=== PATIENT | female | born 1950 | race Caucasian/White ===

== ENCOUNTER 2023-09-04 09:57 | Observation (INO) | payer MEDICARE, SELFPAY ==
[2023-09-04] VITALS (57 sets, daily range): BP systolic 105–193; BP diastolic 47–124; PULSE 69–83; RESP 15–22; TEMP 36.1–36.7; O2SAT 89–97
--- NOTE | 2023-09-04 10:15 | DI.CT_ITS ---
Exam(s) CT LUMBAR SPINE SI JOINTS WO EXAM: CT LUMBAR SPINE SI JOINTS WO CLINICAL HISTORY: low back pain. TECHNIQUE: Imaging Protocol: Axial computed tomography images with coronal and sagittal reformatted images were created and reviewed COMPARISON: No exams were available for comparison FINDINGS: Bones: There is a Schmorl's node invagination in the superior endplate of L4 noted, age indeterminat e.. No lytic nor blastic vertebral lesions identified. INDIVIDUAL LEVELS: T12-L1:Mild disc space narrowing on the right side of this disc space. No obvious disc herniation. Central canal dimensions within normal limits.. No obvious foraminal stenosis. L1-2: Annular bulging. No dominant disc herniation. Anterior osseous lipping. Central canal dimen sions are lower normal. Facet joints unremarkable. No foraminal stenosis. L2-3: This level exhibits relatively uniform advanced disc space narrowing and vacuum phenomenon. P osteriorly there is no distinct disc herniation. Central canal dimensions are lower normal. Mild fa cet joint degenerative changes. Mild foraminal stenosis. L3-4: This level exhibits disc space narrowing which is more prominent on the left than on the right and there Modic type sub endplate marrow changes on the left side of the disc space. There is a Federica morl's node invagination into the right-side of the superior endplate of L4. Difficult to determine the age of this Schmorl's node invagination on CT scan. There is mild-moderate central spinal canal stenosis at this level. There is significant foraminal stenosis on the left side at this level due t o the vertical foraminal stenosis-height loss. Lesser amount of foraminal narrowing is evident on th e right side. Facet joints at this level exhibit only mild degenerative changes. L4-5: This level exhibits preserved disc height but with broad annular bulging with moderate-severe central spinal canal stenosis. There are significant degenerative changes in the facet joints, more so on the right side. Mild foraminal stenosis on the left side. No foraminal stenosis on the right side. L5-S1: This level exhibits normal disc height. No disc herniation or central canal stenosis. Moder ate degenerative changes in the facet joints are noted there is no central canal stenosis. There is mild foraminal stenosis on the left side at this level. No foraminal stenosis on the right side. The visualized sacroiliac joints and sacrum appear unremarkable. PARASPINAL SOFT TISSUES: Cholelithiasis incidentally noted. Love catheter noted in the urinary blad ben. Bladder is collapsed around the Love. IMPRESSION: 1. No evidence of acute fracture, listhesis, nor pars defects. However, there is a prominent Schmorl 's node invagination on the right side of superior endplate of L4, age indeterminate. If clinically indicated follow-up MRI can be performed to determine if this is an acute or subacute or chronic inva gination. 2. There is mild-moderate central spinal canal stenosis at L3-4 level. See above. 3. Asymmetric foraminal stenosis on the left side at L3-4, L4-5, and L5-S1 levels. Cholelithiasis incidentally noted. Bladder also collapsed around Love catheter. RADIATION DOSE DELIVERED: Total DLP DATA REPOSITORY: All CT scans at this facility are submitted to the National Radiology Data Registry (NRDR) Dose Index Registry (DIR) with the [employer] (A[employer]). RADIATION OPTIMIZATION: All CT scans at this facility use at least one of these dose optimization te chniques: automated exposure control; mA and/or kV adjustment per patient size (includes targeted exa ms where dose is matched to clinical indication); or iterative reconstruction.
[2023-09-04 10:53] LABS: Abs Immature Grans 0.04 10^3/uL (0.0-0.06); Absolute Basophil Count 0.02 10^3/uL (0.0-0.2); Absolute Eosinophil Count 0.22 10^3/uL (0.0-0.7); Absolute Monocyte Count 0.65 10^3/uL (0.1-0.8); Absolute Neutrophil Count 9.38 10^3/uL (1.2-6.7); Basophils % 0.2; Eosinophils % 1.9; HCT 40.6 % (36.0-46.0); HGB 13.1 g/dL (11.2-15.7); Immature Grans % 0.3; Lymphocytes % 12.7; MCH 25.3 pg (27.0-33.0); MCHC 32.3 % (32.0-36.0); MCV 79 fL (80-95); MPV 9.8 fL (8.0-11.0); Monocytes % 5.5; Neutrophils % 79.4; Platelet Count 297 10^3/uL (130-400); RBC 5.17 10^6/uL (3.93-5.22); RDW 14.4 % (11.7-14.6); RDW-SD 40.7 fL; WBC 11.81 10^3/uL (4.4-10.8)
[2023-09-04 11:12] LABS: ALT 13 U/L (14-59); AST 13 U/L (15-37); Albumin 2.9 g/dL (3.4-5.0); Alkaline Phosphatase 90 U/L (46-116); BUN 17 mg/dL (7-18); Bilirubin, Total 0.5 mg/dL (0.2-1.0); Chloride 97 mmol/L (98-107); Estimated GFR 59.49 (mL/min/1.73m2); Glucose 404 mg/dL (74-106); Magnesium 1.7 mg/dL (1.8-2.4); Potassium 4.7 mmol/L (3.5-5.1); Sodium 133 mmol/L (136-145); Total Protein 8.2 g/dL (6.4-8.2)
--- NOTE | 2023-09-04 11:39 | NUR.NOTE ---
Nursing Note: Pts skin assessed on ED intake. The following wounds/pressure injury/skin break down was noted on ED intake assessment: left armpit growth and sore, redness and excoriation of entire patt area and underside of pannus, draining slit on right side of vulva in groin, right heel blister. See wound documentation for descriptions of each area and treatments provided. There was no sacrum/buttox breakdown or evidence of pressure injury. There was no skin breakdown noted in right arm pit, skin growth noted and reported to provider. Candi LUMBER TRIMMER came to bedside to assess all areas of concern. Pt was cleaned with the warm body wipes and fresh linens were given.
--- NOTE | 2023-09-04 12:12 | DI.VRAD_ITS ---
PROCEDURE INFORMATION: Exam: CT Lumbar Spine Without Contrast Exam date and time: 09/04/2023 11:53 AM Age: 72 years old Clinical indication: Low back pain and other: Low back pain TECHNIQUE: Imaging protocol: Computed tomography of the lumbar spine without contrast. COMPARISON: No relevant prior studies available. FINDINGS: Bones/joints: Demineralization of the visualized bones. Mild curvature of the thoracolumbar spine convex to the left. Multilevel moderate degenerative disease of the lumbar spine, most pronounced at L3-L4 with posterior osteophyte disc complex causing moderate thecal sac compression and moderate to severe narrowing of both neural foramina, more pronounced on the left side. Schmorl's node at the upper endplate of L4. Urinary bladder: Love catheter in the bladder. Vasculature: There are vascular calcifications. Pelvic phleboliths. Soft tissues: Unremarkable. IMPRESSION: 1. No acute fracture or dislocation. 2. Multilevel degenerative disease of the lumbar spine, most pronounced at L3-L4 with moderate thecal sac compression and moderate to severe neural foraminal narrowing. Dictated and Authenticated by: Cory Pelaez MD. Ordering:LATISHA Capps MD
[2023-09-04 12:28] LABS: Bilirubin Negative (Negative); Blood Trace-intact (Negative); Clarity Sl Cloudy (Clear); Glucose 500 mg/dL (Negative); Ketones 40 mg/dL (Negative); Leukocyte Esterase Negative (Negative); Nitrite Positive (Negative); Urobilinogen 0.2 mg/dL (Up to 0.2); pH 5.5 (5-8)
[2023-09-04 12:35] LABS: Bacteria Many HPF (Negative); C & S Indicated? Yes; Casts 0-2 Hyaline LPF (Negative); Crystals Negative HPF (Negative); Epithelial Cells Few HPF (Negative); Mucus Trace (Negative); RBC 0-2 HPF (0-2); WBC >50 HPF (0-5)
--- NOTE | 2023-09-04 12:50 | ED.GENADUL_ITS ---
Discharge Plan Disposition Patient Disposition: Admit to [facility] Discharge Details Chief Complaint: Nk/Back Pain Clinical Impression: Acute back pain, Urinary tract infection, Hyperglycemia due to type 2 diabetes mellitus, Weakness Primary Care Provider: Sherry,Local ED Provider: Jefry Christopher Home Meds and New Rx's Prescriptions: No Action benzonatate 200 mg capsule 200 mg PO Q8H PRN Rx Instructions: 200 mg orally PRN; gabapentin 300 mg capsule 300 mg PO Q8H atorvastatin 40 mg tablet 40 mg PO DAILY trazodone 50 mg tablet 50 mg PO QHS PRN levothyroxine 150 mcg capsule 150 mcg PO DAILY insulin glargine 100 unit/mL solution 6 unit subcut DAILY HPI General Mode of arrival: EMS . Date/Time Provider Initiated Documentation: 09/04/23 10:03 . Limitations to Documentation: no limitations . Information obtained by: patient and RN notes reviewed . History of Present Illness 72 year old F presents to the emergency department with the chief complaint of Back pain, described as moderate and severe, Patient started experiencing this day(s) (1) and it has been constant. Movement worsens symptoms . Patient did receive the following treatments prior to arrival, none Related Data Home Medications Medication Instructions Recorded Confirmed atorvastatin 40 mg tablet 40 mg PO DAILY 09/04/23 09/04/23 benzonatate 200 mg capsule 200 mg PO Q8H PRN 09/04/23 09/04/23 gabapentin 300 mg capsule 300 mg PO Q8H 09/04/23 09/04/23 insulin glargine 100 unit/mL 6 unit subcut DAILY 09/04/23 09/04/23 subcutaneous solution levothyroxine 150 mcg capsule 150 mcg PO DAILY 09/04/23 09/04/23 trazodone 50 mg tablet 50 mg PO QHS PRN 09/04/23 09/04/23 Allergies Allergy/AdvReac Type Severity Reaction Status Date / Time No Known Allergies Allergy Unverified 09/04/23 10:17 General Stated Complaint: Nk/Back Pain TRINIDAD: 3 Review of Systems Constitutional Constitutional: Denies chills, Denies fever(s), Reports poor appetite and Reports weakness Cardiovascular Cardiovascular: Denies chest pain and Denies dyspnea on exertion Respiratory Respiratory: Denies cough and Denies dyspnea on exertion Gastrointestinal Gastrointestinal: Denies abdominal pain, Denies change in bowel habits, Denies diarrhea, Denies nausea and Denies vomiting Genitourinary Genitourinary: Reports urinary incontinence (Chronic) Musculoskeletal Musculoskeletal: Reports as per HPI and Reports back pain Integumentary/Breasts Skin/Breast: Reports erythema Neurologic Neurologic: Denies sensory deficit and Reports weakness Exam Const General: cooperative and no acute distress Orientation: alert, awake and oriented x3 Resp Effort & Inspection: normal respiratory effort and able to speak in complete sentences Auscultation: clear to auscultation bilaterally Cardio Rate: regular rate Rhythm: regular rhythm Heart Sounds: S1 normal and S2 normal GI Palpation: nontender External Female Exam: erythema, externally tender and external swelling Back/Spine/Pelvis Thoracic/Lumbar Spine: pain with thoraco-lumbar ROM and lumbar spinal tenderness Neuro General: patient alert, patient awake and patient oriented x3 Extrem General: capillary refill normal Right lower extremity: foot Details: other (Calcaneus blistering) Course Vital Signs Vital signs: Vital Signs Temperature 36.1 C L 09/04/23 09:57 Pulse 76 09/04/23 09:57 Respiratory Rate 18 09/04/23 09:57 Blood Pressure 193/94 H 09/04/23 09:57 Pulse Oximetry 91 L 09/04/23 09:57 Temperature 36.1 C L 09/04/23 09:57 Temperature Source Skin 09/04/23 09:57 Pulse 76 09/04/23 11:31 Pulse 77 09/04/23 11:10 Respiratory Rate 22 09/04/23 11:10 Respiratory Effort Normal, Non-Labored 09/04/23 10:09 Blood Pressure 150/80 H 09/04/23 11:31 Blood Pressure Mean 106 09/04/23 11:31 Blood Pressure Position Supine 09/04/23 09:57 Pulse Oximetry 94 09/04/23 11:40 Oxygen Delivery Method Room Air 09/04/23 11:40 Oxygen Flow Rate 0 09/04/23 11:40 Pain Level 10 09/04/23 10:09 Comment put on 1L o2 09/04/23 10:03 Lab/Test Results Lab/Test Results: 09/04/23 11:16 Urine - Reflex from Ua Urine Culture - Pending Laboratory Tests Range/Units 09/04/23 09/04/23 10:40 11:16 WBC (4.4-10.8) 10^3/uL 11.81 H RBC (3.93-5.22) 10^6/uL 5.17 Hgb (11.2-15.7) g/dL 13.1 Hct (36.0-46.0) % 40.6 MCV (80-95) fL 79 L MCH (27.0-33.0) pg 25.3 L MCHC (32.0-36.0) % 32.3 RDW (11.7-14.6) % 14.4 Plt Count (130-400) 10^3/uL 297 MPV (8.0-11.0) fL 9.8 Immature Gran % 0.3 Neutrophils % 79.4 Lymphocytes % 12.7 Monocytes % 5.5 Eosinophils % 1.9 Basophils % 0.2 Nucleated RBC % (0.0-0.3) % 0.0 Absolute Neutrophils (1.2-6.7) 10^3/uL 9.38 H Absolute Lymphocytes (1.2-3.4) 10^3/uL 1.50 Absolute Monocytes (0.1-0.8) 10^3/uL 0.65 Absolute Eosinophils (0.0-0.7) 10^3/uL 0.22 Absolute Basophils (0.0-0.2) 10^3/uL 0.02 Sodium (136-145) mmol/L 133 L Potassium (3.5-5.1) mmol/L 4.7 Chloride (98-107) mmol/L 97 L Carbon Dioxide (21.0-32.0) mmol/L 29.0 Anion Gap (3-11) mmol/L 7.0 BUN (7-18) mg/dL 17 Creatinine (0.55-1.02) mg/dL 1.0 Est GFR (CKD-EPI 2020) (mL/min/1.73m2) 59.49 Glucose (74-106) mg/dL 404 H Calcium (8.5-10.1) mg/dL 9.0 Magnesium (1.8-2.4) mg/dL 1.7 L Total Bilirubin (0.2-1.0) mg/dL 0.5 AST (15-37) U/L 13 L ALT (14-59) U/L 13 L Alkaline Phosphatase (46-116) U/L 90 Total Protein (6.4-8.2) g/dL 8.2 Albumin (3.4-5.0) g/dL 2.9 L Urine Color (Yellow) Yellow Urine Clarity (Clear) Sl Cloudy Urine pH (5-8) 5.5 Ur Specific [place] (1.005-1.025) 1.020 Urine Protein (Neg-Trace) mg/dL 30 H Urine Ketones (Negative) mg/dL 40 H Urine Blood (Negative) Trace-intact H Urine Nitrite (Negative) Positive H Urine Bilirubin (Negative) Negative Urine Urobilinogen (Up to 0.2) mg/dL 0.2 Ur Leukocyte Esterase (Negative) Negative Urine RBC (0-2) HPF 0-2 Urine WBC (0-5) HPF >50 H Ur Epithelial Cells (Negative) HPF Few Urine Crystals (Negative) HPF Negative Urine Bacteria (Negative) HPF Many Urine Casts (Negative) LPF 0-2 Hyaline Urine Mucus (Negative) Trace Ur Culture Indicated? Yes Urine Glucose (Negative) mg/dL 500 H Medical Decision Making Patient presenting to the emergency department via EMS for chief complaint of back pain. Patient reports significant back pain that started yesterday. Patient denies any injury or trauma does state that she recently moved here from [place] after being in a skilled nursing and her daughter wanting her here due to not having any family to visit her there. Is living with her daughter's [id number] who is trying to take care of her but there are some situational challenges. Patient states generalized weakness and poor appetite along with urinary incontinence. Patient states past medical history of CHF, diabetes, and previous stroke with some left-sided deficits. Patient normally uses a walker to move around but has been unable to ambulate or even get out of bed for the past 24 to 48 hours. She does state that she did receive some of her medications this morning does not believe she received her insulin. Physical exam shows extreme amount of pain and difficulty even sitting up in bed. Lower lumbar tenderness to palpation, reflexes present as much can be appreciated with patient lying in bed, sensation movement and pulse intact distally, patient is obese. Patient ANO x 3 with no respiratory or cardiac complaints or findings of significant concern. Will plan on checking patient's labs and CT imaging of the lumbar spine due to inability to perform appropriate plain film imaging secondary to pain. Pending results will give IV acetaminophen. Unfortunate there are no records to review given patient being new to the area and having no establish care. Reviewed patient's labs and patient does have mild white count of 11.81 with elevated neutrophils, CMP shows slightly low sodium at 133, chloride of 97, glucose of 400, magnesium 107, otherwise nondiagnostic labs. Will replete magnesium orally. Urinalysis is concerning for protein ketones trace blood but also is nitrite positive with greater than 50 WBCs. I am concerned for urinary tract infection and will give patient Rocephin along with her normal scheduled long acting insulin. CT imaging reviewed and shows no acute findings but disc degeneration. Reassessed patient patient still having significant back pain and spasms, also was able to look at perineum and patient has significant and severe skin breakdown with even open wounds secondary to her urinary incontinence. Love catheter was placed to help with the incontinence and healing along with barrier cream ordered. Also did note that patient had blistering on her right heel. While she states this may be from shoes I am concerned due to her lack of mobility about possible pressure ulcers so pressure relieving boot was ordered. Daughter was able to come to the emergency department and states that patient is staying with her [id number] who also then did call the emergency department and states that she cannot care for the patient. Daughter states that she is also not qualified to care for the patient. I am concerned for patient being home alone given the obvious inability to care for self and no realistic support system in place at all Long with no primary care or follow-up established. Will contact hospitalist for admission for urinary tract infection, weakness, acute back pain, and urinary incontinence. Imaging Data Radiologic Study: Imaging: CT Scan Radiologist's impression: Exam(s) PROCEDURE INFORMATION: Exam: CT Lumbar Spine Without Contrast Exam date and time: 09/04/2023 11:53 AM Age: 72 years old Clinical indication: Low back pain and other: Low back pain TECHNIQUE: Imaging protocol: Computed tomography of the lumbar spine without contrast. COMPARISON: No relevant prior studies available. FINDINGS: Bones/joints: Demineralization of the visualized bones. Mild curvature of the thoracolumbar spine convex to the left. Multilevel moderate degenerative disease of the lumbar spine, most pronounced at L3-L4 with posterior osteophyte disc complex causing moderate thecal sac compression and moderate to severe narrowing of both neural foramina, more pronounced on the left side. Schmorl's node at the upper endplate of L4. Urinary bladder: Love catheter in the bladder. Vasculature: There are vascular calcifications. Pelvic phleboliths. Soft tissues: Unremarkable. IMPRESSION: 1. No acute fracture or dislocation. 2. Multilevel degenerative disease of the lumbar spine, most pronounced at L3-L4 with moderate thecal sac compression and moderate to severe neural foraminal narrowing. Dictated and Authenticated by: Cory Pelaez MD. Lab Data Lab results reviewed: Yes I reviewed the patient's lab results. Quality:SDOH Health Related Social Needs: No Data to Display PFSH All Active Problems (Updated 09/04/23 @ 15:23 by Jefry Christopher NP) Weakness (Acute) Hyperglycemia due to type 2 diabetes mellitus (Acute) Urinary tract infection (Acute) Acute back pain (Acute) Medical History Stroke Diabetes CHF (congestive heart failure) Social History Smoking/Tobacco Use Status: Never Smoking risk assessment performed?: Yes Alcohol Intake: never Drug use: Never Substance use type: does not use
[2023-09-04] MEDS: cefTRIAXone 1 GM/50 ML BAG IVPB (13:04)
[2023-09-04] MEDS: Insulin Glargine 100 UNITS/ML UNIT 6 UNITS SC (13:04)
[2023-09-04] MEDS: Magnesium Oxide 400 MG TAB PO (13:05)
[2023-09-04] MEDS: diazePAM 10 MG/2 ML SYR 2.5 MG IVP (13:21)
--- NOTE | 2023-09-04 15:22 | W.PM.HP.N ---
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 She now presents w/ relatively recent acute low back pain w/ radiating pains into her legs R>L, inability to ambulate on her own, difficulty sitting up unassisted, but no perineal pain or numbness. She does have chronic urinary incontnence issues and frequently can not tell when she has to void, likely d/t [facility] DM (?neurogenic bladder). She has UTI and has perineal and groin excoriations. She needs iv antibiotics, analgesics (iv and oral including ketorolac, Tyelenol and muscle relaxants and iv narcotics) along w/ MRI of her LS spine to rule out herniated disc. She needs P.T. and O.T. to evaluate and treat her for her decreased ability to ambulate, general weakness (and more specifically her leg weakness). CM will assist patient and family in placement to SNF for rehab although she may need terminal clerk placement if she does not recover sufficiently. Will continue Rocephin for UTI. Monitor kidney function, electrolytes, etc. Qualifiers: Back pain laterality: bilateral Back pain location: low back pain Sciatica laterality: sciatica of right side Sciatica presence: with sciatica Qualified Code(s): M54.41 - Lumbago with sciatica, right side (2) Lumbar back pain with radiculopathy affecting right lower extremity: Status: Acute (3) Ambulatory dysfunction: Status: Acute (4) Hyperglycemia due to type 2 diabetes mellitus: Status: Acute Qualifiers: Diabetes mellitus [facility] insulin use: with [facility] use Qualified Code(s): E11.65 - Type 2 diabetes mellitus with hyperglycemia; Z79.4 - correction (current) use of insulin (5) Urinary tract infection: Status: Acute Assessment and plan: continue Rocephin Qualifiers: Hematuria presence: without hematuria Urinary tract infection type: acute cystitis Qualified Code(s): N30.00 - Acute cystitis without hematuria (6) Weakness: Status: Acute Assessment and plan: P.T. and O.T. consults as noted above. check MRI oF LS spine. (7) Hypomagnesemia: Status: Acute Assessment and plan: replete and monitor (8) DVT prophylaxis: Status: Acute Assessment and plan: enoxaparin SC (9) Discharge planning issues: Status: Acute Assessment and plan: Patient and her family had been applying for admission to [facility], she may or may not qualify for SNF. CM will look into her coverage for SNF. Hopefully w/ correction of her UTI and some P.T. and O.T. she may be able to return home to her family. Patient states that she was walking w/ use of either a walker w/ a seat or pushing a wheel chair and holding onto the wheel chair in the senior living in [facility] prior to coming to [place]. After discussion w/ the patient she has indicated that she wishes to have a DNR/DNI order. History of Present Illness History of Present Illness Chief Complaint: acute low back pain, inability to ambulate Narrative: 72 yr old female who moved up here from [place], [place]. She was in a senior living there and her daughter moved her out to be closer to family in [place]. She was suppose to live w/ her daughter's in-laws in [facility] until patient could get placed. Family had applied w/ [facility] in [place]. The patient had moved up here 4 days ago after traveling in a car for 10 days visiting family/friends in [place] and [place]. The patient states that her back pain began 4 days ago and has radiating pain in both legs but worse in the right leg. She has chronic numbness in her feet d/t her DM, she also has chronic urinary incontinence. Evaluation by the ED provider revealed evidence of urinary tract infection (UA cloudy +nitrites, >50 WBC, many bacteria, a few epithelial cells, negative for leukocyte esterase, 0-2 RBC, 40 mg/dL ketones. CMP remarkble for glucose 404, Mg 1.7, normal anion gap 7, normal BUN and creatinine and normal LFT. CBC remarkable for WBC 11,800, microcytic indices. CT of LS spine remarkable for multilevel DJD w/ most pronounced at L3-L4 w/ moderate thecal sac compression and moderate to severe neural foraminal narrowing. The hospitalist service was asked to admit the patient d/t her inabilty to ambulate on her own, unable to sit up in bed on her own d/t her weakness and back pain and for treatment of her UTI. She was also found to have excoriation of the skin around her groin and perineum d/t urinary incontinence. Review of Systems Constitutional Constitutional: Denies chills, Reports fatigue, Denies fever(s), Reports lethargy and Reports weakness Eyes Eyes: Reports system reviewed and no additional complaints, except as documented ENT Ears, Nose, Mouth, and Throat: Reports system reviewed and no additional complaints, except as documented and Reports disequilibrium Cardiovascular Cardiovascular: Reports system reviewed and no additional complaints, except as documented Respiratory Respiratory: Reports system reviewed and no additional complaints, except as documented Gastrointestinal Gastrointestinal: Reports system reviewed and no additional complaints, except as documented Genitourinary Genitourinary: Denies hematuria and Reports urinary incontinence Musculoskeletal Musculoskeletal: Reports as per HPI, Reports back pain, Reports numbness and Reports radiating pain into limb Integumentary/Breasts Skin/Breast: Reports erythema (over perineum and buttocks and groin and under pannus) Neurologic Neurologic: Reports as per HPI, Reports numbness, Reports paresthesias (both feet), Reports disequilibrium and Reports weakness Comments: Patient states that she had a stroke couple years ago w/ left sided weakness but has since regained use of the left side, she usually walks w/ walker or holds onto a wheelchair and walks behind it. Endocrine Endocrine: Reports fatigue PFSH All Active Problems (Updated 09/04/23 @ 20:14 by Anish Taylor MD) Discharge planning issues (Acute) DVT prophylaxis (Acute) Lumbar back pain with radiculopathy affecting right lower extremity (Acute) Hypomagnesemia (Acute) Ambulatory dysfunction (Acute) Weakness (Acute) Hyperglycemia due to type 2 diabetes mellitus (Acute) Urinary tract infection (Acute) Acute back pain (Acute) Medical History (Updated 09/04/23 @ 20:14 by Anish Taylor MD) Stroke Diabetes CHF (congestive heart failure) Surgical History (Updated 09/04/23 @ 15:37 by Anish Taylor MD) History of ERCP S/P tonsillectomy Social History (Updated 09/04/23 @ 15:38 by Anish Taylor MD) Smoking/Tobacco Use Status: Never Smoking risk assessment performed?: Yes Alcohol Intake: never Drug use: Never Substance use type: does not use Housing: apartment What is your relationship status?: Panel score (0-1 are the most socially isolated patients): 0 Meds Allergies and Home Medications Allergies Allergy/AdvReac Type Severity Reaction Status Date / Time No Known Allergies Allergy Unverified 09/04/23 10:17 Home Medications Medication Instructions Recorded Confirmed Type atorvastatin 40 mg tablet 40 mg PO DAILY 09/04/23 09/04/23 History benzonatate 200 mg capsule 200 mg PO Q8H PRN 09/04/23 09/04/23 History gabapentin 300 mg capsule 300 mg PO Q8H 09/04/23 09/04/23 History insulin glargine 100 unit/mL 6 unit subcut DAILY 09/04/23 09/04/23 History subcutaneous solution levothyroxine 150 mcg capsule 150 mcg PO DAILY 09/04/23 09/04/23 History trazodone 50 mg tablet 50 mg PO QHS PRN 09/04/23 09/04/23 History Exam Narrative Exam Narrative: Alert and oriented x4 HEENT: Atraumatic normocephalic, pupils equally round reactive to light and accommodation, extraocular motion intact, TMs intact, nares moist and patent without exudate or bleeding, oropharynx noninjected without exudate, Neck: Supple, nontender, without thyromegaly or lymphadenopathy or JVD. Normal carotid pulses Lungs: Clear to auscultation and percussion Heart: Regular rate and rhythm without murmur rub or gallop. Normal apical impulse Abdomen: Obese, Nondistended, normal bowel sounds, nontender to palpation or percussion, no organomegaly, no bruits, no palpable masses Genitalia: perineum and groin area of proximal thigh and perianal area is excoriated and red but no open sores seen Extremities: obese legs; right heel w/ blister over the medial heel, pedal pulses present but weak, no cyanosis, +SLR w/ right leg elicited severe lower back pain, she has trace pitting edema in both legs Neurologic: Cranial nerves II through XII grossly within normal limits. Sensation intact over face, chest arms/hands and legs however over both feet they are diminished but she was able to provide discrimination to light touch between various areas of palpation of her feet and legs. she has good pedal pushes and pulls i.e. plantar and dorsiflexion of her feet; unable to assess her stenght in her right leg to hip flexion or extension as she has severe pain w/ right leg SLR, but not in left leg. she has absent right DTR patella or ankle jerk, but brisk over left. Results Labs 09/04/23 10:40 09/04/23 10:40 Labs: Laboratory Results - last 24 hr 09/04/23 09/04/23 10:40 11:16 WBC 11.81 H RBC 5.17 Hgb 13.1 Hct 40.6 MCV 79 L MCH 25.3 L MCHC 32.3 RDW 14.4 Plt Count 297 MPV 9.8 Immature Gran % 0.3 Neutrophils % 79.4 Lymphocytes % 12.7 Monocytes % 5.5 Eosinophils % 1.9 Basophils % 0.2 Nucleated RBC % 0.0 Absolute Neutrophils 9.38 H Absolute Lymphocytes 1.50 Absolute Monocytes 0.65 Absolute Eosinophils 0.22 Absolute Basophils 0.02 Sodium 133 L Potassium 4.7 Chloride 97 L Carbon Dioxide 29.0 Anion Gap 7.0 BUN 17 Creatinine 1.0 Est GFR (CKD-EPI 2020) 59.49 Glucose 404 H Calcium 9.0 Magnesium 1.7 L Total Bilirubin 0.5 AST 13 L ALT 13 L Alkaline Phosphatase 90 Total Protein 8.2 Albumin 2.9 L Urine Color Yellow Urine Clarity Sl Cloudy Urine pH 5.5 Ur Specific Mchenry 1.020 Urine Protein 30 H Urine Ketones 40 H Urine Blood Trace-intact H Urine Nitrite Positive H Urine Bilirubin Negative Urine Urobilinogen 0.2 Ur Leukocyte Esterase Negative Urine RBC 0-2 Urine WBC >50 H Ur Epithelial Cells Few Urine Crystals Negative Urine Bacteria Many Urine Casts 0-2 Hyaline Urine Mucus Trace Ur Culture Indicated? Yes Urine Glucose 500 H Last Vital Signs Temp 36.1 C L 09/04/23 09:57 Pulse 75 09/04/23 14:01 Resp 22 09/04/23 11:10 BP 119/55 L 09/04/23 14:01 Pulse Ox 96 09/04/23 14:34 Time Spent Time spent with Patient: 55-74 minutes Time was spent: preparing to see the patient(eg.review tests), obtaining and/or reviewing separately otained hiistory, ordering medications,tests, procedures, referring, communicating with other health housekeeper caregiver, indepentently interpreting results, counseling the patient and care coordination
[2023-09-04] MEDS: predniSONE 20 MG TAB 60 MG PO (16:43)
[2023-09-04] MEDS: Pantoprazole 40 MG TABCR PO (16:43)
[2023-09-04] MEDS: Normal Saline Flush 10 ML SYR IVP ×2 (16:43→21:04)
[2023-09-04] MEDS: Acetaminophen 500 MG TAB 1000 MG PO ×2 (16:43→20:36)
[2023-09-04] MEDS: Ketorolac 15 MG/ML VIAL IVP (16:45)
[2023-09-04] MEDS: Methocarbamol 750 MG TAB 1500 MG PO ×2 (17:03→23:17)
[2023-09-04] MEDS: Insulin Aspart 300 UNITS/3 ML PEN SC ×2 (17:04→20:40)
[2023-09-04] MEDS: Enoxaparin 40 MG/0.4 ML SYR SC (18:23)
[2023-09-04] MEDS: Gabapentin 300 MG CAP PO (20:36)
[2023-09-04] MEDS: Magnesium Chloride 64 MG TABCR PO (20:37)
[2023-09-04] MEDS: Ketoconazole 2% CREAM 15 GM TUBE TP (21:03)
--- NOTE | 2023-09-04 23:26 | NUR.NOTE ---
Patient repositioned; awake and alert. Placed on 1l oxygen.
[2023-09-05] MEDS: Levothyroxine 150 MCG TAB PO (06:20)
[2023-09-05 06:22] LABS: Abs Immature Grans 0.05 10^3/uL (0.0-0.06); Absolute Basophil Count 0.01 10^3/uL (0.0-0.2); Absolute Eosinophil Count 0.01 10^3/uL (0.0-0.7); Absolute Lymphocyte Count 1.18 10^3/uL (1.2-3.4); Basophils % 0.1; Eosinophils % 0.1; HCT 37.5 % (36.0-46.0); HGB 12.2 g/dL (11.2-15.7); Immature Grans % 0.5; Lymphocytes % 10.7; MCH 25.4 pg (27.0-33.0); MCHC 32.5 % (32.0-36.0); MCV 78 fL (80-95); MPV 9.9 fL (8.0-11.0); Monocytes % 3.3; Neutrophils % 85.3; Platelet Count 333 10^3/uL (130-400); RDW 14.4 % (11.7-14.6); RDW-SD 40.9 fL; WBC 11.07 10^3/uL (4.4-10.8)
[2023-09-05 06:30] LABS: Absolute Monocyte Count 0.37 10^3/uL (0.1-0.8); Absolute Neutrophil Count 9.44 10^3/uL (1.2-6.7)
[2023-09-05 06:50] LABS: Anion Gap 8.7 mmol/L (3-11); BUN 24 mg/dL (7-18); CO2 27.3 mmol/L (21.0-32.0); CREATININE 1.3 mg/dL (0.55-1.02); Chloride 95 mmol/L (98-107); Estimated GFR 43.42 (mL/min/1.73m2); Glucose 395 mg/dL (74-106); Magnesium 1.8 mg/dL (1.8-2.4); Potassium 4.7 mmol/L (3.5-5.1); Sodium 131 mmol/L (136-145); TSH (W/Ref FT4) 2.34 uIU/mL (0.36-3.74)
[2023-09-05 07:08] LABS: Hemoglobin A1C 11.4 % (<5.7)
[2023-09-05 07:51] VITALS: BP 125/77; PULSE 72; RESP 18; TEMP 36.5; O2SAT 93
--- NOTE | 2023-09-05 08:00 | DI.MRI_ITS ---
Exam(s) MR LUMBAR SPINE WO EXAM: MR LUMBAR SPINE WO CLINICAL HISTORY: acute back pain w/ radicular symptoms. TECHNIQUE: Multiplanar multisequence MRI of the Lumbar spine was performed. COMPARISON: Recent CT scan of 09/04/2023 was reviewed. FINDINGS: Conus medullaris is at normal level. There is no evidence of conus mass nor subjacent clumping of in trathecal nerve roots to suggest arachnoiditis. The distal thecal sac appears unremarkable.There is no evidence of Tarlov intrasacral cysts nor other significant findings within the sacral canal Bones:Schmorl's node invagination in the right-side of the superior endplate L4 noted. Exhibits suba cute signal. There is no evidence of acute appearing compression fracture. There is chronic disc sp yoli narrowing at the L3-4 level and Modic type 1 marrow edema changes at this level. With respect to the individual levels... T12-L1: Normal disc height and signal. Mild central subligamentous annular bulging. No prominent di sc herniation nor central canal stenosis. No foraminal stenosis. Facet joints unremarkable. L1-2: Normal disc height. Anterior osseous lipping noted. There is mild annular bulging but without a significant disc herniation or central canal stenosis. Also no foraminal stenosis nor significant facet arthropathy at this level. L2-3: This level exhibits significant disc height loss. Mild annular bulging but without a dominant disc herniation. Central canal dimensions lower normal. No disc herniation nor central canal stenos is.Mild foraminal stenosis on the right side. No foraminal stenosis on the left side. Mild-minimal degenerative changes in the facet joints. L3-4: Advanced disc space narrowing with Modic type 1 sub endplate marrow edema. Schmorl's node inva gination in the right side of the L4 superior endplate, as described above. Posteriorly there is nichole ular bulging subligamentous but without a prominent disc herniation. There is mild central canal cintia nosis at this level. There is no foraminal stenosis on the right side. There is mild-moderate brijesh inal stenosis on the left side which is mostly related to the fact that there is more prominent disc space height loss on the left than the right side at this level as well as marginal left-sided osteop hytes.Mild degenerative changes in the facet joints noted at this level. L4-5: This level exhibits normal disc height and signal. There is a central subligamentous disc prot rusion which extends posteriorly 2 millimeters and is approximately 9 mm wide. This slightly indents the anterior thecal sac. Central canal dimensions lower normal at this level. No disc herniation a t the level of the exiting neural foramina and there is no evidence of foraminal stenosis on either s rafa despite the fact that there is some mild-moderate degenerative change in both facet joints with i ncreased signal symmetrically seen in the facet joints bilaterally. L5-S1: Normal disc height and signal. No disc herniation or central canal stenosis. No foraminal st enosis. Minimal facet joint degenerative changes. Soft tissues: paraspinal soft tissues appear unremarkable. IMPRESSION: 1. Multilevel degenerative disc disease as described individually above. There is mild central canal stenosis at L3-4 level and there is some asymmetric foraminal stenosis on the right side at L2-3 lev el as well as on the left side at L3-4 level. 2. Schmorl's node invagination noted in the right side of the superior endplate of L4, this in additi on to advanced disc space narrowing at this level and Modic type 1 sub endplate marrow edema changes. The signal of this Schmorl's node invagination appears subacute. There is no evidence of true comp ression fracture at this level DATA REPOSITORY:
[2023-09-05] MEDS: Ketoconazole 2% CREAM 15 GM TUBE TP ×2 (08:25→19:43)
[2023-09-05] MEDS: Insulin Glargine 300 UNITS/3 ML PEN 6 UNITS SC (08:26)
[2023-09-05] MEDS: Normal Saline Flush 10 ML SYR IVP ×2 (08:26→19:43)
[2023-09-05] MEDS: Insulin NPH-Human 300 UNITS/3 ML PEN 20 UNIT SC (08:27)
[2023-09-05] MEDS: Insulin Aspart 300 UNITS/3 ML PEN SC ×4 (08:28→21:43)
[2023-09-05] MEDS: Acetaminophen 500 MG TAB 1000 MG PO ×3 (08:29→19:39)
[2023-09-05] MEDS: Pantoprazole 40 MG TABCR PO (08:30)
[2023-09-05] MEDS: Atorvastatin 40 MG TAB PO (08:31)
[2023-09-05] MEDS: Gabapentin 300 MG CAP PO ×3 (08:32→19:42)
[2023-09-05] MEDS: Magnesium Chloride 64 MG TABCR PO ×2 (08:32→19:40)
[2023-09-05] MEDS: Methocarbamol 750 MG TAB 1500 MG PO ×3 (08:32→19:40)
[2023-09-05] MEDS: predniSONE 20 MG TAB 40 MG PO (08:32)
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
--- NOTE | 2023-09-05 10:26 | W.PM.PROGNOT ---
Date of Service Date of service: 09/05/23 Time of Service: 10:26 Assessment and Plan Assessment and plan (1) Acute back pain: Status: Acute Assessment and plan: CT showed severe DJD multilevel of her Lumbo-sacral spine. MRI w/o :Please read report Impressions: Multilevel degenerative disc disease as described individually above. There is mild central canal stenosis at L3-4 level and there is some asymmetric foraminal stenosis on the right side atL2-3 level as well as on the left side at L3-4 level. Schmorl's node invagination noted in the right side of the superior endplate of L4, this in addition to advanced disc space narrowing at this level and Modic type 1 sub endplate marrow edema changes. The signal of this Schmorl's node invagination appears subacute. There is no evidence of true compression fracture at this level - Pain mangement: multimodal with APAP, Gabapentin,short course of NSAIDs on hold d/t VIVIAN stage I criteria met, muscle relaxant PT: Will start as there was no obviuous disc herniation on the MRI OT Qualifiers: Back pain laterality: bilateral Back pain location: low back pain Sciatica laterality: sciatica of right side Sciatica presence: with sciatica Qualified Code(s): M54.41 - Lumbago with sciatica, right side (2) Lumbar back pain with radiculopathy affecting right lower extremity: Status: Acute Assessment and plan: As above (3) Ambulatory dysfunction: Status: Acute Assessment and plan: As above (4) Weakness: Status: Acute Assessment and plan: As above (5) Hyperglycemia due to type 2 diabetes mellitus: Status: Acute Assessment and plan: Continue Gluc AC and HS Continue SSI and increased basal insulin Qualifiers: Diabetes mellitus manager intermediate insulin use: with manager intermediate use Qualified Code(s): E11.65 - Type 2 diabetes mellitus with hyperglycemia; Z79.4 - FCI (current) use of insulin (6) Urinary tract infection: Status: Acute Assessment and plan: Continue Rocephin GNR in the urine: Awaiting for further results Qualifiers: Hematuria presence: without hematuria Urinary tract infection type: acute cystitis Qualified Code(s): N30.00 - Acute cystitis without hematuria (7) Hypomagnesemia: Status: Acute Assessment and plan: Resolved Mg 1.8. Will continue to monitor (8) VIVIAN (acute kidney injury): Status: Acute Assessment and plan: Cr. 1.3 today from 1.0 IVF Hold NSAIDs Hold nephrotoxic medicine as much as possible BMP in AM (9) DVT prophylaxis: Status: Acute Assessment and plan: Continue enoxaparin SC (10) Discharge planning issues: Status: Acute Assessment and plan: CM to follow-up: For [facility] placement or other SNF if the patient meets criteria VS home w family with PT, OT, [employer]ER The patient was in a residential in [facility] prior to coming to [place]. Discussed with Dr. Reed Subjective Subjective Patient reports: no new complaints (Stating that the back pain has resolved ), feels better, pain is less, tolerating liquids well, tolerating a regular diet, voiding w/o difficulty, flatus and no bowel movement; denies still having pain, diarrhea, nausea, vomiting, shortness of breath or fever Exam Narrative Exam Narrative: Patient in supine position when met, appearing comfortable at rest, and while turning in bed Neuro: No focal deficits Resp: Normal breathing pattern, clear lungs Cardiac: regular rate and rhythm GI: Abd soft- non-tender, non distended, bowel sounds are present : No CVA tenderness Musk: 5/5 strenght to upper and 4/5 right lower ext., 5/5 left lower ext. Objective Last Vital Signs Temp 36.5 C 09/05/23 07:51 Pulse 72 09/05/23 07:51 Resp 18 09/05/23 07:51 BP 125/77 09/05/23 07:51 Pulse Ox 93 09/05/23 07:51 Laboratory Results - last 24 hr 09/04/23 09/04/23 09/05/23 10:40 11:16 06:09 WBC 11.81 H 11.07 H RBC 5.17 4.80 Hgb 13.1 12.2 Hct 40.6 37.5 MCV 79 L 78 L MCH 25.3 L 25.4 L MCHC 32.3 32.5 RDW 14.4 14.4 Plt Count 297 333 MPV 9.8 9.9 Immature Gran % 0.3 0.5 Neutrophils % 79.4 85.3 Lymphocytes % 12.7 10.7 Monocytes % 5.5 3.3 Eosinophils % 1.9 0.1 Basophils % 0.2 0.1 Nucleated RBC % 0.0 0.0 Absolute Neutrophils 9.38 H 9.44 H Absolute Lymphocytes 1.50 1.18 L Absolute Monocytes 0.65 0.37 Absolute Eosinophils 0.22 0.01 Absolute Basophils 0.02 0.01 Sodium 133 L 131 L Potassium 4.7 4.7 Chloride 97 L 95 L Carbon Dioxide 29.0 27.3 Anion Gap 7.0 8.7 BUN 17 24 H Creatinine 1.0 1.3 H Est GFR (CKD-EPI 2020) 59.49 43.42 Glucose 404 H 395 H Hemoglobin A1c 11.4 H Calcium 9.0 9.0 Magnesium 1.7 L 1.8 Total Bilirubin 0.5 AST 13 L ALT 13 L Alkaline Phosphatase 90 Total Protein 8.2 Albumin 2.9 L TSH 2.34 Urine Color Yellow Urine Clarity Sl Cloudy Urine pH 5.5 Ur Specific [place] 1.020 Urine Protein 30 H Urine Ketones 40 H Urine Blood Trace-intact H Urine Nitrite Positive H Urine Bilirubin Negative Urine Urobilinogen 0.2 Ur Leukocyte Esterase Negative Urine RBC 0-2 Urine WBC >50 H Ur Epithelial Cells Few Urine Crystals Negative Urine Bacteria Many Urine Casts 0-2 Hyaline Urine Mucus Trace Ur Culture Indicated? Yes Urine Glucose 500 H Time Spent with Patient Time Spent with Patient: >50 minutes Time was spent: preparing to see the patient(eg.review tests), obtaining and/or reviewing separately otained hiistory, ordering medications,tests, procedures, referring, communicating with other health patient care nursing assistant, indepentently interpreting results, counseling the patient and care coordination
--- NOTE | 2023-09-05 11:11 | TELEFU_ITS ---
Date of service: 09/05/23 Time of Service: 09:45 Nutrition Note NOTE: received routine consult for diabetes education/mgt Pt is a 72yo female who just arrived 5 days ago to the area from [place], where she was in a shelter. She had an extended drive up here and is now admitted with acute low back pain, weakness/ambulatory dysfunction, UTI. History of diabetes. She is now in the area with plans for living with grand daughter, who is a nurse. She states prior to the shelter in [place] she lived with her daughter and was not cared for well - no food in the house and I lost about 80 pounds. She states she has no food allergies or special islam considerations when it comes to food. She states her glucose was pretty stable in the shelter for some time but then it went all out of whack and they really weren't doing anything. States she was on metformin for 30 years and then taken off due to her kidney issues. She is without PCP in the area currently. Has dentures that don't fit well. Denies diarrhea - states she is constipated and has issues with this chroni guilherme. Home meds include: -6units daily of insulin glargine -atorvastatin -levothroxine Does not take any current vitamins or nutrition supplements - notes that she thinks her vitamin D has been very low in the past Wt:105.2kg/231.4lbs. Ht: 65 BMI 38.6 UBW: 212 pounds is good for me but pt unsure. 2+ edema noted in lower extremities Labs: A1C was 11.4today, Low sodium, cholirde, and albumin. Mg low yesterday but corrected to WNL. High BUN and Cr. Protein, glucose, ketones all present in urine. Pertinent meds this admission: -6 units glargine daily -resistant ss insulin aspart for meal coverage (received 15 units this morning at breakfast) NPH insulin 20units daily -Slow-Mag -Prednisone Estimated nutrition needs: 1868kcals (REEx1.2) (would round to 1600-1700due to obesity and edema) , 75g protein (1.2g/kg IBW) Diet order: low sodium, consistent CHO with normal consistencies. Interventions: Pt will get Boost carb control ONS at breakfast and dinner meals for increasing protein intake. Suggest PEG dosing for constipation - pt education on hydration and fiber intake. Suggest vitamin D lab and replenish if low Suggest staring MVI and multineral supplement to continue at discharge to assist with micronutrient sufficiency. Will notify kitchen to modify tough foods and offer soft and manageable textures due to pt's dentures not fitting well Would consider metformin again as her GFR is >30 as well as increase glargine by 3 units every 2-3 days until closer to ideal FBG goal. Without prior PCP notes and more detailed medical history, would be cautious about going to combination therapy too quickly Time Spent in Nutritional Counseling and Treatment: 15 minutes
--- NOTE | 2023-09-05 11:33 | PHA.REVIEW2 ---
Pharmacy Admission Review Admission Clinical Review Admission Pharmacy Review: Discharge planning issues (Acute) DVT prophylaxis (Acute) Lumbar back pain with radiculopathy affecting right lower extremity (Acute) Hypomagnesemia (Acute) Ambulatory dysfunction (Acute) Weakness (Acute) Hyperglycemia due to type 2 diabetes mellitus (Acute) Urinary tract infection (Acute) Acute back pain (Acute) No Known Allergies Allergy (Unverified 09/04/23 10:17) Resuscitation Status DNR/DNI Height 5 ft 5 in Weight 105.2 kg Pharmacy Admission Review Renal Dosing Renal Dosing: BUN 24 mg/dL (7-18) H 09/05/23 06:09 Creatinine 1.3 mg/dL (0.55-1.02) H 09/05/23 06:09 Medications needing adjustments: Reviewed (CrCl 46.41 mL/min) Anticoagulation Anticoagulation: Hgb 12.2 g/dL (11.2-15.7) 09/05/23 06:09 Hct 37.5 % (36.0-46.0) 09/05/23 06:09 Plt Count 333 10^3/uL (130-400) 09/05/23 06:09 Creatinine 1.3 mg/dL (0.55-1.02) H 09/05/23 06:09 DVT Prophylaxis: Reviewed Medications: Enoxaparin (40mg daily) Opiate Usage Evaluate Pain Scale/Pains Meds: Reviewed (PRN hydromorphone and oxycodone) Scheduled Bowel Reg ordered if on Opiates?: No Relevant Labs Relevant Labs: Sodium 131 mmol/L (136-145) L 09/05/23 06:09 Potassium 4.7 mmol/L (3.5-5.1) 09/05/23 06:09 Chloride 95 mmol/L (98-107) L 09/05/23 06:09 Magnesium 1.8 mg/dL (1.8-2.4) 09/05/23 06:09 Electrolytes, C-Reactive P, ESR: Reviewed (Na 131, BUN increased from 17 to 24 and SCr increased from 1 to 1.3, WBC decreased from 11.81 to 11.07) DM Control DM Control: Glucose 395 mg/dL (74-106) H 09/05/23 06:09 Hemoglobin A1c 11.4 % (<5.7) H 09/05/23 06:09 Finger Stick Blood Glucose 321 0828 Finger Stick Blood Glucose 321 0827 Finger Stick Blood Glucose 321 0826 Finger Stick Blood Glucose 321 0736 Finger Stick Blood Glucose 321 0736 DM Control: Reviewed Insulin Dosing, Diabetic Medication: Has order for glargine 6 units daily, SS insulin AC and HS, and insulin NPH-human to cover while patient is on prednisone Cardiac Review BP, HR, EF%: Reviewed (HR and BP WNL) QTc Review QTc: Reviewed (No EKG on file) IV to PO Switch IV Medications: Reviewed (Ceftriaxone, hydromorphone, and ketorolac) Home Meds Home Med List reviewed: Reviewed Current Meds Current Medication Order Review: Reviewed Pharmacy Antibiotic Review Pharmacy Antibiotic Activity: C/S review and Reviewed, no change Comments: Patient currently on ceftriaxone 1g every 24 hours, day 2. WBC decreased to 11.07, urine cultures pending.
[2023-09-05 11:42] LABS: Iron 30 ug/dL (50-170); Total Iron Binding Capacity 202 ug/dL (250-450); Transferrin Sat 15 % (15-50)
[2023-09-05 11:55] LABS: Ferritin 123 ng/mL (8-252)
[2023-09-05] MEDS: cefTRIAXone 1 GM/50 ML BAG IVPB (12:30)
[2023-09-05] MEDS: Normal Saline 1,000 ML 125 ML IV (12:30)
[2023-09-05 13:42] VITALS: BP 99/72; PULSE 65; RESP 18; TEMP 37.1; O2SAT 91
--- NOTE | 2023-09-05 13:52 | PT.INNT ---
PT Notes Visit Reasons: Acute Back Pain w/Radiculopathy,UTI,Amb. Dysfxn,Un Per hospitalist, hold off on PT eval until MRI result is in.
[2023-09-05 14:47] VITALS: BP 129/78; PULSE 74; RESP 18; TEMP 37.2; O2SAT 95
[2023-09-05] MEDS: Docusate Sodium 100 MG CAP PO ×2 (15:51→19:42)
--- NOTE | 2023-09-05 16:02 | IN_ITS ---
PT Notes Visit Reasons: Acute Back Pain w/Radiculopathy,UTI,Amb. Dysfxn,Un Physical Therapy Inpatient Initial Evaluation Date: 09/05/2023 Referring Doctor: Roseanne Kamara NP PT Orders: PT CONSULT: Eval/Treat Precautions: Fall. Standard. Activity as tolerated. Patient Profile/Admitting Diagnosis: Nilam is a 72-year-old female who presented to the ED on 09/04/2023 due to complaints of moderate to severe back pain of 1 days duration aggravated with movement. Patient was diagnosed with acute back pain related to severe DJD on multiple levels in the lumbar area as seen on CT, ambulatory dysfunction, hyperglycemia due to diabetes mellitus, urinary tract infection, and hypomagnesemia. PMHX: All Active Problems (Updated 09/04/23 @ 20:14 by Anish Taylor MD) Discharge planning issues (Acute) DVT prophylaxis (Acute) Lumbar back pain with radiculopathy affecting right lower extremity (Acute) Hypomagnesemia (Acute) Ambulatory dysfunction (Acute) Weakness (Acute) Hyperglycemia due to type 2 diabetes mellitus (Acute) Urinary tract infection (Acute) Acute back pain (Acute) Medical History (Updated 09/04/23 @ 20:14 by Anish Taylor MD) Stroke Diabetes CHF (congestive heart failure) Surgical History (Updated 09/04/23 @ 15:37 by Anish Taylor MD) History of ERCP S/P tonsillectomy Social History/Home Situation: Lived in a SNF in [place] since April until prior to thi admission. Was ambulatory without device inside her room but uses the wheelchair to go to the dining room Equipment Owned/DME: Used wheelchair for long distances in previous SNF Subjective: Patient reported that she fell last June in the SNF and that a nurse and a second staff member helped her up. She denied dizziness and back pain throughout session ths afternoon. Per Nurse Bonnie and JAIRO Cronin, patient has been given pain medication half an hour ago, Agreeable to sit on bedside chair for supper. Alarm pad put in place. Objective: General Observation: Resting in bed. IV through L UE. Love catheter in place. High BMI. R leg and foot swollen. Wound dressing to R heel. Mental Status: Alert and oriented as to person, place, time, and purpose. Able to pay attention, focus, and respond appropriately. Pain: As above Vital Signs: VS now WNL per Nurse Bonnie ROM: Right Upper Extremity: Shoulder Flexion WFL. Shoulder abduction WFL. Elbow flexion WFL. Wrist flexion WFL. Functional opening and closing of hand WFL. Left Upper Extremity: Shoulder Flexion WFL. Shoulder abduction WFL. Elbow flexion WFL. Wrist flexion WFL. Functional opening and closing of hand WFL. Right Lower Extremity: Hip flexion WFL. Hip abduction WFL. Knee flexion WFL. Ankle dorsiflexion to neutral only. Ankle plantarflexion WFL. Left Lower Extremity: Hip flexion WFL. Hip abduction WFL. Knee flexion WFL. Ankle dorsiflexion to neutral only. Ankle plantarflexion WFL. Strength: Right Upper Extremity: Shoulder flexors 4-/5. Shoulder abductors 4-/5. Elbow flexors 4/5. Elbow extensors 4-/5. Signal Engineer strong. Left Upper Extremity: Shoulder flexors 4-/5. Shoulder abductors 4-/5. Elbow flexors 4/5. Elbow extensors 4-/5. Signal Engineer strong. Right Lower Extremity: Hip flexors 3/5. Hip abductors 4-/5. Knee flexors 4/5. Knee extensors 4-/5. Ankle dorsiflexors 3-/5. Ankle plantarflexors 4-/5. Left Lower Extremity: Hip flexors 3/5. Hip abductors 4-/5. Knee flexors 4/5. Knee extensors 4-/5. Ankle dorsiflexors 3-/5. Ankle plantarflexors 4-/5. Bed Mobility/Transfers: Minimal cueing provided for use of B hands as needed for support, movement sequence, AD management, and posture to reduce fall risk and minimize pain report Supine to sit with minimal assist, HOB at 30 degrees Sit to stand with contact guard assist Stand to sit with contact guard assist Bed to reclining chair contact guard assist Gait: Facilitated safe and correct performance of level surface ambulation covering a distance of 75 feet +75 feet using front wheeled walker with contact-guard assist and wheelchair follow requiring minimal assistance for limb advancement, AD management, and posture to reduce fall risk and minimize pain report. Standardized Measure [facility] AM-PAC 6 clicks Basic Mobility Inpatient Short Form: Raw Score: 15 CMS Score: 58% deficit Informed Consent/Education: Patient was instructed in purpose of PT consult and plan of care. Agreeable to proceed with established PT POC to achieve personal goals. Assessment: Patient presents with clinical signs and symptoms consistent with current/admitting diagnoses that have resulted to mobility limitations, gait instability, generalized weakness, and overall ADL decline as demonstrated by the following impairment level findings: 1. Decreased strength to B UE/LE major muscle groups 2. Impaired standing balance 3. Impaired activity tolerance 4. Shortness of breath 5. Swelling in theB LE with R>>L Impairments are contributing to the following functional limitations: 1. Decline in bed mobility skills 2. Decline in transfer skills 3. Difficulty with ambulation without assistive device and physical assistance 4. Increased completion time for mobility ADL performance 5. Increased risk for falls 6. Difficulty with managing steps alone safely Patient is assessed as a 69317 moderate complexity based on the following: History: 72-year-old female with past medical history as indicated above Examination: Demonstrable impairment in strength, balance, and mobility level with underlying impairments and functional limitations as exhibited above as well as deficit score of 58% utilizing the [facility] Mobility In patient Short Form Presentation: Evolving Decision Makin moderate complexity Goals: Goals X1 week 1. Supine-Sit independent 2. Sit-Supine independent 3. Sit-Stand independent 4. Stand-Sit independent with 4WW 5. Bed-Chair independent with 4WW 6. Chair-Bed independent with 4WW 7. Independent gait on level surface with use of 4WW for at least 200 feet without report of pain nor dyspnea 8. Independent stair negotiation while holding onto B rails for at least 5 steps without report of pain nor dyspnea 9. Independent with home exercise program 10. Good static and dynamic standing balance/tolerance Plan of Care/Treatment Plan: 1-2x/day, 7 days/week x 1 week. Plan of care has been reviewed with the BOX PRINTER providing the service under Physical Therapy direction. Initiate Physical Therapy intervention for pain management as needed, strengthening, bed mobility, transfers, gait, stairs, balance training, and use of assistive device. DISCHARGE RECOMMENDATIONS: [] Home with no services [] [] Home with services [specify] [] Home with outpatient PT [] [] SNF for continued rehabilitation [] [] [facility] [] [] SNF versus LTC based on ability to participate and progress [] [X] PT vs short-term rehab TREATMENT CODE/TIME: 9716 2 x 20 minutes for 1 unit, 9753 0 x 7 minutes for 1 unit (16:2-16:33). Thank you for the opportunity to participate in the care of this patient. Bridget Andersen PT, DPT, CLT [facility] [place], [place]
--- NOTE | 2023-09-05 17:11 | PCNE_ITS ---
Date of service: 09/05/23 Time of Service: 15:30 History of Present Illness Narrative: Ms. Demarco is a 72 y/o F currently inpt 2/2 uncontrolled back pain and UTI; Hospital course: Nilam presented to ED on 09/03 after 4 days of increasing back pain; work up sig for UTI and hyperglycemia (in 400's), CT showed multilevel DJD, 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 w/sac compression and foraminal narrowing; decision for inpatient admission for ongoing work up, unable to ambulate independently; MRI of lumbar spine today to r/o disc herniation, read pending at time of visit; PT/OT consults placed; today w/PT was able to walk 75ft twice w/break in between independently w/1 person observation, precautions listed at 1 person transfer assist; OT consult pending Nilam was living in [place], relocated to [place] around 3 years ago after husbands 5 years ago; was living in granddaughter in [place], but was removed from home d/t unsafe living conditions, was in hospital for 2 mos until placement in Apr 2023 at a local [place], was there until recently daughter Kathy brought her home, after a 10d roadtrip (visiting family and [place]), returning to [place] to live w/granddaughter Noam in [facility], was there for 4 days prior to admission. Pain much improved today, medications are working well; apap, gabapentin, muscle relaxant; Appetite appropriate, eating all meals Incontinent of urine prior to admission l/t skin break down, w/current UTI, Love in place w/no issues; incontinent of small BM earlier today, potentially r/t bedbound status, may be continent of bowels Activities: OOB w/PT today, walked a total of 150ft, feels good about this, no increased/changed pain at end of PT session Social: grandedmundo Santacruz's home was original plan for relocation to [place]; Nilam is unsure if this is a possibility right now d/t need for increased assistance; there are 3 steps to get into home and she is unable to shower/use bathroom d/t no grab bars at the moment. Noam works at the [employer] - daughter Kathy lives in [place] in [facility], to visit tomorrow - another daughter and granddaughter live 1 hour away - grandson just got own apartment at 17 and is in college; she is very proud of grandchildren - sister lives in [place] ACP: feels like a burden now, does not want to feel this way; I don't want to live if I can't live; previously stated DNR/I preferences, agreeable to COLST completion today; has never thought about HCA preferences, unsure whom she would want to identify today, not considering daughter at this time Discharge plan: SNF vs home w/HH, TBD; need watermelon harvesting supervisor plan Assessment and Plan Assessment and plan (1) Discharge planning issues: Status: Acute Assessment and plan: unsafe to return home at this time - grab bars, stairs, no caregivers - to work w/family preference for [facility] for rehab PRN (2) Lumbar back pain with radiculopathy affecting right lower extremity: Status: Acute Assessment and plan: improved since hospitalization MRI - multilevel DJD, cental canal stenosis L3-4, asymmetric foraminal stenosis RS at L2-3 and LS at L3-4; Schmorl's node on RS of superior endplate L4 w/advanced disc space narrowing; no evidence of compression fracture (3) Ambulatory dysfunction: Status: Acute Assessment and plan: PT evaluation today continue PT (4) Hyperglycemia due to type 2 diabetes mellitus: Status: Acute Assessment and plan: last A1C 11.4% - continue to manage in hospital needs PCP establishment Qualifiers: Diabetes mellitus alf insulin use: with watermelon harvesting supervisor use Qualified Code(s): E11.65 - Type 2 diabetes mellitus with hyperglycemia; Z79.4 - watermelon harvesting supervisor (current) use of insulin (5) Weakness: Status: Acute Assessment and plan: PT/OT (6) Urinary tract infection: Status: Acute Assessment and plan: continue Rocephin Qualifiers: Urinary tract infection type: acute cystitis Hematuria presence: w ithout hematuria Qualified Code(s): N30.00 - Acute cystitis without hematuria (7) ACP (advance care planning): Status: Acute Assessment and plan: reviewed COLST, AD, HCA and PC completed COLST spent 20m w/ACP (8) Physician orders for life-sustaining treatment (POLST) form indicates patient wish for [id number] status: Status: Acute Assessment and plan: DNR/I no FT, no dialysis trial IVF/abx (9) Palliative care patient: Status: Acute Assessment and plan: PC will plan on continuing to follow Nilam during this hospitalization PRN, w/outpatient follow up to be scheduled pending discharge plans Review of Systems Narrative: as per HPI PFSH All Active Problems (Updated 09/05/23 @ 17:29 by Anamika Hampton NP) Palliative care patient (Acute) Physician orders for life-sustaining treatment (POLST) form indicates patient wish for [id number]-[id number] status (Acute) ACP (advance care planning) (Acute) VIVIAN (acute kidney injury) (Acute) Discharge planning issues (Acute) DVT prophylaxis (Acute) Lumbar back pain with radiculopathy affecting right lower extremity (Acute) Hypomagnesemia (Acute) Ambulatory dysfunction (Acute) Weakness (Acute) Hyperglycemia due to type 2 diabetes mellitus (Acute) Urinary tract infection (Acute) Acute back pain (Acute) Medical History Stroke Diabetes CHF (congestive heart failure) Surgical History History of ERCP S/P tonsillectomy Social History Smoking/Tobacco Use Status: Never Smoking risk assessment performed?: Yes Alcohol Intake: never Drug use: Never Substance use type: does not use Housing: apartment What is your relationship status?: Panel score (0-1 are the most socially isolated patients): 0 Exam Narrative Exam Narrative: General: overweight, cooperative female; working w/PT at start of visit, sitting in recliner throughout visit HEENT: hearing WNL, MMM, normocephalic, atraumatic Resp: even and unlabored, speaks full and complete sentences, no cyanosis; no cough or audible wheeze Skin: IV in place LUE; no rashes/lesions noted, did not conduct full skin exam : clear pale yellow urine noted in catheter Psych: cooperative, pleasant, appearance WNL; thought process loose association/impoverished; insight/judgment fair; Results Last Vital Signs Temp 99.0 F 09/05/23 14:47 Pulse 74 09/05/23 14:47 Resp 18 09/05/23 14:47 BP 129/78 09/05/23 14:47 Pulse Ox 95 09/05/23 14:47 Labs 09/05/23 06:09 09/05/23 06:09 Labs: Laboratory Results - last 24 hr 09/05/23 09/05/23 06:09 11:40 WBC 11.07 H RBC 4.80 Hgb 12.2 Hct 37.5 MCV 78 L MCH 25.4 L MCHC 32.5 RDW 14.4 Plt Count 333 MPV 9.9 Immature Gran % 0.5 Neutrophils % 85.3 Lymphocytes % 10.7 Monocytes % 3.3 Eosinophils % 0.1 Basophils % 0.1 Nucleated RBC % 0.0 Absolute Neutrophils 9.44 H Absolute Lymphocytes 1.18 L Absolute Monocytes 0.37 Absolute Eosinophils 0.01 Absolute Basophils 0.01 Sodium 131 L Potassium 4.7 Chloride 95 L Carbon Dioxide 27.3 Anion Gap 8.7 BUN 24 H Creatinine 1.3 H Est GFR (CKD-EPI 2020) 43.42 Glucose 395 H Hemoglobin A1c 11.4 H Calcium 9.0 Magnesium 1.8 Iron 30 L TIBC 202 L Transferrin Cancelled Transferrin % Sat 15 Ferritin 123 TSH 2.34
[2023-09-05 18:14] LABS: Glucose 488 mg/dL (74-106)
[2023-09-05] MEDS: Enoxaparin 40 MG/0.4 ML SYR SC (18:21)
[2023-09-05 19:47] VITALS: BP 112/57; PULSE 66; RESP 18; TEMP 36.4; O2SAT 93
--- NOTE | 2023-09-05 19:47 | WOUNDCONS ---
Date of service: 09/05/23 Time of Service: 19:47 Wound Initial Evaluation Narrative Narrative: Patient presented to facility on 09/04/23 with c/o of acute back pain. Prior to admission, Nilam had been on a [address] trip travelling from [facility] to [place] with family. During assessment it was determined that Nilam had erythema under her breasts, pannus and significant perineal skin breakdown d/t urine incontinence. Nilam also has a blister on the right medial calcaneal that is not tender. Nilam has uncontrolled diabetes (A1c 11.4) with neuropathy, ambulatory dysfunction and weakness. BMI is 38.6 Etiology of the blister is unclear and patient reports recently wearing ill-fitting shoes (which are not with her personal belongings in the room). Bilateral pedal pulses are weak. Nilam is being treated for a UTI and a Love catheter was placed to assist with incontinence and efforts for wound healing. Per the nurse, the patient's perineum and skin folds have much improved since admission. This sba underwriter reviewed recent reports, labs, and allergies. Nilam agreed and signed the photo consent. Nilam is unsure where she will be discharged to. This sba underwriter discussed at length with Nilam treatment options with lotions, powder, skin-fold drying sheets, off-loading booties and pillows to help with wound healing. Wound Right Heel: Wound Type: Other (Blister) Wound Surrounding Tissue Appearance: [place] Wound Length: 2.3 cm Wound Width: 2.7 cm Wound Drainage Amount: None Wound Summary Wound Summary: The skin was washed under bilateral arms, breasts and under the pannus. Ketoconazole cream has been ordered and a thin film was applied to the red areas. Powder was applied to the larger pink areas and an ultra absorbent dry sheet was placed between skin folds to assist with moisture wicking. Barrier cream with zinc was applied to the perineum. An Optifoam border dressing was placed over the right heel blister for protection. The foot was then placed in the blue bootie d/t patient being in bed (or could be covered with a grippy sock when patient is out of bed). Photo Photo: Nutrition Education Reviewed Nutrition Education: Yes Note: A diabetic consult has been placed. Nilam is aware that her blood sugars stay around 300. This sba underwriter suggested low sugar options and increased protein to optimize wound healing. Nilam states she would like an easier way to track her blood sugar such as a Dexcom for continuous glucose monitoring. Recomendation Recomendation:: Wash under arms, breasts and pannus each morning and night. Pat dry. Apply Ketoconazole to red areas. Apply powder to skin folds and use Skinfold dry sheets under pannus for moisture wicking. Use barrier cream with zinc on perineum after each incontinence episode. Monitor blister on right heel. Use foam dressing for protection. Use blue bootie for protection when in bed. Physcian/Nurse Practioner Notified: Yes Treatment Time Time Total Time Spent with Patient: 90 minutes
[2023-09-05 23:53] VITALS: BP 117/69; PULSE 60; RESP 16; TEMP 36.7; O2SAT 95
[2023-09-06] MEDS: Levothyroxine 150 MCG TAB PO (05:58)
[2023-09-06 07:09] LABS: Abs Immature Grans 0.06 10^3/uL (0.0-0.06); Absolute Basophil Count 0.01 10^3/uL (0.0-0.2); Absolute Eosinophil Count 0.13 10^3/uL (0.0-0.7); Absolute Lymphocyte Count 2.55 10^3/uL (1.2-3.4); Absolute Monocyte Count 0.73 10^3/uL (0.1-0.8); Basophils % 0.1; Eosinophils % 1.1; HCT 36.3 % (36.0-46.0); Immature Grans % 0.5; Lymphocytes % 21.7; MCH 25.5 pg (27.0-33.0); MCHC 33.1 % (32.0-36.0); MCV 77 fL (80-95); MPV 10.1 fL (8.0-11.0); Monocytes % 6.2; Neutrophils % 70.4; Platelet Count 354 10^3/uL (130-400); RBC 4.71 10^6/uL (3.93-5.22); RDW 14.4 % (11.7-14.6); RDW-SD 39.9 fL; WBC 11.73 10^3/uL (4.4-10.8)
[2023-09-06 07:10] LABS: Absolute Neutrophil Count 8.26 10^3/uL (1.2-6.7)
[2023-09-06 07:27] LABS: Anion Gap 6.2 mmol/L (3-11); BUN 25 mg/dL (7-18); CO2 28.8 mmol/L (21.0-32.0); Calcium 8.6 mg/dL (8.5-10.1); Chloride 99 mmol/L (98-107); Estimated GFR 59.49 (mL/min/1.73m2); Glucose 350 mg/dL (74-106); Magnesium 1.9 mg/dL (1.8-2.4); Potassium 3.6 mmol/L (3.5-5.1); Sodium 134 mmol/L (136-145)
[2023-09-06 07:28] VITALS: BP 139/83; PULSE 60; RESP 18; TEMP 36.1; O2SAT 93
[2023-09-06] MEDS: Insulin Aspart 300 UNITS/3 ML PEN SC ×6 (08:28→16:35)
[2023-09-06] MEDS: Insulin Glargine 300 UNITS/3 ML PEN 12 UNITS SC (08:32)
[2023-09-06] MEDS: Insulin NPH-Human 300 UNITS/3 ML PEN 20 UNIT SC (08:33)
[2023-09-06] MEDS: Normal Saline Flush 10 ML SYR IVP (08:36)
[2023-09-06] MEDS: Docusate Sodium 100 MG CAP PO (09:25)
[2023-09-06] MEDS: Atorvastatin 40 MG TAB PO (09:25)
[2023-09-06] MEDS: predniSONE 20 MG TAB 40 MG PO (09:25)
[2023-09-06] MEDS: Gabapentin 300 MG CAP PO ×2 (09:25→13:25)
[2023-09-06 09:26] VITALS: TEMP 36.1
[2023-09-06] MEDS: Acetaminophen 500 MG TAB 1000 MG PO ×2 (09:26→13:24)
[2023-09-06] MEDS: Magnesium Chloride 64 MG TABCR PO (09:27)
[2023-09-06 09:28] VITALS: TEMP 36.1
[2023-09-06] MEDS: Pantoprazole 40 MG TABCR PO (09:28)
[2023-09-06] MEDS: Methocarbamol 750 MG TAB 1500 MG PO ×2 (09:28→13:25)
--- NOTE | 2023-09-06 09:32 | OTIE_ITS ---
Occupational Therapy Notes Inpatient Occupational Therapy Evaluation Date: 09/07/23 Referring Doctor:Anish Taylor MD OT Orders: Non Urgent Precautions: Fall, Standard, DNR/DNI PATIENT PROFILE/ADMITTING DIAGNOSIS: Pt is a 72 year old female who was admitted through the ED for low iron, Lumbar back pain with radiculopathy, ambulatory dysfunction, weakness, UTI. Past Medical History: Lumbar back pain UTI DVT Ambulatory dysfunction Weakness Post Stroke Social History/Home Situation: Pt states that she just recently moved to [place] 4 days ago to live up here closer to family. She notes that she did need (A) but lived in an SNF prior. She states that her granddaughter does not want her to return home so her next step will be SNF here which she states she is receptive too. She reports that for the most part she likes to think of herself as fairly (I) but has difficulty with functional mobility. Equipment owned/DME: DME needs were met prior to [place] in SNF.OT provided pt with sock aid, dressing stick and drug inspector. SUBJECTIVE: Pt was sitting in bed when OT arrived. She states that she is looking forward to transitioning and that she feels okay at the moment but 9/10 pain. OBJECTIVE: General Observation: Pleasant, IV in (R) UE, paul catheter in place. Mental Status: A&Ox4 Pain: 9/10 pain in her Low back ROM: RUE AROM WFL L UE AROM WFL STRENGTH: RUE 4/5 throughout LUE 3+/5 throughout FUNCTIONAL MOBILITY/ADLS: BATHING Seated in bed with max (A) set up/clean up Bathing UE (I) face, (B) UE and abdomen. Increased redness in underarms and under pannis which is sore to pt. Bathing LE Max (A) DRESSING Seated in bed Dressing UE Mod (A) [facility] gown Dressing LE max (A) GROOMING (I) brushing hair TOILETING Paul in place EATING (I) seated with appropriate use of silverware and no limitations in chewing or swallowing BALANCE: Static sitting Normal Dynamic Sitting Normal Static Standing NT Dynamic Standing NT SPECIAL TESTS: Daily Activity Limitations Standardized Measure [facility] AM -PAC ?6 clicks? Daily Activity Inpatient Short Form: Raw score: 13 Standardized score: 32.03 CMS score: 63.03% INFORMED CONSENT/EDUCATION: Pt instructed in purpose of OT Consult and plan of care. ASSESSMENT: Patient is a 72-year-old female referred to occupational therapy services with diagnosis of lumbar pain, low iron, ambulaotry dysfunction, weakness, hyperglycemia due to type 2 DM, UTI. Patient presents with clinical signs and symptoms consistent with dx, as demonstrated by the following impair ment level findings/functional limitations: Impairments in ADL/IADL and leisure activities, decreased gross and fine motor control, decreased functional mobility required for ADL performance, decreased strength, post CVA in the past which she noted limitations from that which affected her baseline (I). AMPAC score 13 Patient is assessed as a Moderate [id number] complexity based on the following: History: see above Examination: see functional limitations as noted above Presentation: evolving Decision Making: AMPAC score 13 GOALS N/A seen for OT consult only PLAN OF CARE/TREATMENT PLAN: Discharged to SNF DISCHARGE RECOMMENDATIONS SNF vs. Home with services TREATMENT TIME/MINUTES/CODES [id number], [id number], 30 minutes Kamala Hurtado OTR/L [facility] [place], [place]
[2023-09-06] MEDS: Ketoconazole 2% CREAM 15 GM TUBE TP (09:35)
--- NOTE | 2023-09-06 09:57 | DSE_ITS ---
Date of service: 09/06/23 Time of Service: 09:57 DS: Diagnosis Discharge Diagnosis (1) Lumbar back pain with radiculopathy affecting right lower extremity: Status: Acute (2) Ambulatory dysfunction: Status: Acute (3) Hyperglycemia due to type 2 diabetes mellitus: Status: Acute (4) Weakness: Status: Acute (5) Urinary tract infection: Status: Acute (6) ACP (advance care planning): Status: Acute (7) Physician orders for life-sustaining treatment (POLST) form indicates patient wish for ex-bjm-[id number] status: Status: Acute (8) Palliative care patient: Status: Acute (9) Low serum iron: Status: Acute Discharge Plan Disposition Patient Disposition: Home W/Home Health Services Condition: Improving Discharge Details Reason For Visit: Acute Back Pain w/Radiculopathy,UTI,Amb. Dysfxn,Un Admit Date/Time: 09/04/23 14:50 Admit Provider: Anish Taylor Attending Provider: Anish Taylor [facility] Hospital Course: This 71 years old female patient recently moved here via car, during a 4-day trip, from [facility] reported to the emergency room at [facility] on 09/04/2023 for evaluation of back pain and difficulty ambulating. The patient reported back pain starting 4 days ago with radiation to both legs with the worst pain on the right leg. She reported chronic numbness in her feet due to her diabetes. Other past medical history included stroke congestive heart failure and urinary incontinence with reported monthly urinary tract infections. The workup in the emergency room was positive for UTI, glucose level of 4 4, magnesium 1.7 and WBC of 11,800 as well as microcytic indices. CT showed evidence of severe degenerative disease multileveled to her Lumbar Spine without acute findings I am doing that. The patient was unable to stand, move or ambulate independently. The patient was admitted to the medical surgical floor as an observation for evaluation management of back pain and ambulatory dysfunction. During the stay, the patient was initially treated with ceftriaxone IV for the UTI. Urine culture came back positive for E. coli and the patient received 1 dose of fosfomycin. The patient received oral prednisone, methocarbamol as a muscle relaxant, scheduled acetaminophen to treat her back pain. Treatment was effective in treating pain. The patient was seen by physical therapy were she regain mobility and was able to ambulate in the halls with her walker without complaint of back pain or further discomfort. The patient will be sent home on a taper of prednisone, methocarbamol and scheduled Tylenol. Macrocytic findings in the setting of low iron level were treated with oral iron supplementation which the patient will continue to take daily. The patient received and adjusted dose of basal insulin of 12 units; she reported taking 34 units of long-acting insulin but this was not confirmed as were not able to receive medical records from a facility in [place] when they were requested. Due to the fact that the patient has been receiving over 45 units of aspart in a 24- hour. We consider increasing her Lantus to 20 units/day but as prednisone will be tapered off and with metformin addition, better control is expected. The patient will take metformin twice a day and will have to performed glucometer checks before meals and at bedtime.The patient's chronic conditions were treated with her dose of chronic medicines. The patient will need to repeat BMP within 7 days and as the patient has no primary care provider results will be sent back to Dr. René Buchanan. Referrals in for urology, podiatry for chronic heel ulcers, and for PCP at [facility]. Discussed with Dr. Reed Home Meds and New Rx's Prescriptions: New acetaminophen 500 mg Tablet 1,000 mg PO TID MDD 3000 mg Qty: 60 0RF docusate sodium [Colace] 100 mg Capsule 100 mg PO DAILY Qty: 30 0RF ferrous sulfate 325 mg (65 mg iron) Tablet 325 mg PO DAILY Qty: 30 0RF methocarbamol 750 mg Tablet 750 mg PO TID Qty: 30 0RF pantoprazole 40 mg Tablet,Delayed Release (Dr/Ec) 40 mg PO DAILY@0730 Qty: 10 0RF prednisone 20 mg Tablet See Rx Instructions .ROUTE .COMPLEX Qty: 10 0RF Rx Instructions: Take 30 mg for 3 days Then 20 mg for 3 days Then 10 mg for 4 days then stop metformin 500 mg tablet 500 mg PO BIDWMEAL Qty: 60 0RF (DME) lancets [FreeStyle Lancets] 28 gauge misc See Rx Instructions .Route Qty: 100 0RF Rx Instructions: As directed (DME) blood-glucose meter [FreeStyle Lite Meter] Kit See Rx Instructions .Route Qty: 1 0RF Rx Instructions: As directed (DME) FreeStyle Lite Strips Strip See Rx Instructions .Route Qty: 100 0RF Rx Instructions: As directed insulin glargine [Lantus Solostar U-100 Insulin] 100 unit/mL (3 mL) Insulin Pen 20 unit subcut DAILY Qty: 15 0RF Rx Instructions: AT bedtime Continued benzonatate 200 mg capsule 200 mg PO Q8H PRN Rx Instructions: 200 mg orally PRN; gabapentin 300 mg capsule 300 mg PO Q8H atorvastatin 40 mg tablet 40 mg PO DAILY trazodone 50 mg tablet 50 mg PO QHS PRN levothyroxine 150 mcg capsule 150 mcg PO DAILY Changed insulin glargine 100 unit/mL solution 12 unit subcut DAILY Qty: 0 0RF Discharge Instructions Stand Alone Forms: Nursing Discharge Form Referrals: No,Local [Primary Care Provider] - (Needs a f/u within 7 to 10 days ) Anamika Hampton NP [NURSE PRACTITIONER] - (Seen by PC during this stay, would need OPT f/u please ) Robinson Balderas MD [ [facility] STAFF PHYSICIAN] - (Please call in the morning for an apt with in 7-10 days Patient reporting history of monthly UTI, treated for E. Coli UTI during this stay ) Activity:: Activity as Tolerated Equipment/Supplies:: DM monitor/strips/lancets Diet:: Diabetic heart healthy Discharge Orders Discharge Orders: Discharge Order (Routine); Ordered 09/06/23 Ordered By: Roseanne Kamara Other Ambulatory Orders: Basic Metabolic Panel (Routine) Timeframe: 1 Week Facility: [facility] - Location: Laboratory Outpatient - [facility] Ordered By: Roseanne Kamara DS: Summary Time Spent with Patient providing and/or coordinating discharge services: Greater than 30 minutes Status at Discharge Functional status at discharge: uses cane/walker Overall status at discharge: patient is progressing back to baseline Mental Status: mental status grossly normal Speech and Movement: speech and movement normal Mood: congruent mood Affect: normal affect Quality:SDOH Health Related Social Needs: No Data to Display Exam Narrative Exam Narrative: Patient in chair comfortable after ambulating the halls with PT Neuro: No focal deficits Resp:clear lungs Cardiac: regular rate and rhythm GI: Abd soft- non-tender, non distended, bowel sounds are present : No CVA tenderness Musk: 5/5 strength to upper and 4/5 right lower ext., 5/5 left lower ext. Psych Mental Status: mental status grossly normal Speech and Movement: speech and movement normal Mood: congruent mood Affect: normal affect DS: Data Vitals/I&O Vitals and I&O: Vital Signs Temperature 36.1 C L 09/06/23 09:28 Temperature Source Tympanic 09/06/23 07:28 Pulse 60 09/06/23 07:28 Pulse Rhythm Regular 09/06/23 09:09 Pulse 77 09/04/23 11:10 Respiratory Rate 18 09/06/23 07:28 Respiratory Effort Labored 09/06/23 09:09 Respiratory Depth Normal 09/06/23 09:09 Respiratory Pattern Normal 09/06/23 09:09 Blood Pressure 139/83 09/06/23 07:28 Blood Pressure Mean 94 09/04/23 15:31 Blood Pressure Position Supine 09/04/23 09:57 Pulse Oximetry 93 09/06/23 07:28 Oxygen Delivery Method Room Air 09/06/23 07:28 Oxygen Flow Rate 0 09/06/23 07:28 Pain Level 8 09/06/23 09:28 Comment Nurse notified. 09/05/23 13:42 Comment put on 1L o2 09/04/23 10:03 Intake & Output 09/05/23 09/05/23 09/06/23 11:59 23:59 11:59 Intake Total 240 / 1470 1230 / 1470 Output Total 750 / 2125 1375 / 2125 2150 / 2150 Balance -510 / -655 -145 / -655 -2150 / -2150 Weight 105.2 kg 105.5 kg Intake: IV 1050 / 1050 Oral 240 / 420 180 / 420 Output: Urine 750 / 2125 1375 / 2125 2150 / 2150 Other: Urine Color Yellow Yellow Yellow Urine Appearance Clear Clear Clear Stool Size Copious Stool Characteristics Formed Data Completed and Pending Labs on day of discharge: Labs from last 24 hours 09/06/23 09/05/23 09/05/23 06:22 17:50 11:40 WBC 11.73 H RBC 4.71 Hgb 12.0 Hct 36.3 MCV 77 L MCH 25.5 L MCHC 33.1 RDW 14.4 Plt Count 354 MPV 10.1 Immature Gran % 0.5 Neutrophils % 70.4 Lymphocytes % 21.7 Monocytes % 6.2 Eosinophils % 1.1 Basophils % 0.1 Nucleated RBC % 0.0 Absolute Neutrophils 8.26 H Absolute Lymphocytes 2.55 Absolute Monocytes 0.73 Absolute Eosinophils 0.13 Absolute Basophils 0.01 Sodium 134 L Potassium 3.6 D Chloride 99 Carbon Dioxide 28.8 Anion Gap 6.2 BUN 25 H Creatinine 1.0 Est GFR (CKD-EPI 2020) 59.49 Glucose 350 H 488 H Calcium 8.6 Magnesium 1.9 Iron TIBC Transferrin Cancelled Transferrin % Sat Ferritin 09/05/23 06:09 WBC RBC Hgb Hct MCV MCH MCHC RDW Plt Count MPV Immature Gran % Neutrophils % Lymphocytes % Monocytes % Eosinophils % Basophils % Nucleated RBC % Absolute Neutrophils Absolute Lymphocytes Absolute Monocytes Absolute Eosinophils Absolute Basophils Sodium Potassium Chloride Carbon Dioxide Anion Gap BUN Creatinine Est GFR (CKD-EPI 2020) Glucose Calcium Magnesium Iron 30 L TIBC 202 L Transferrin Pending Transferrin % Sat 15 Ferritin 123 PFSH All Active Problems (Updated 09/06/23 @ 10:43 by Roseanne Kamara APRN) Low serum iron (Acute) Palliative care patient (Acute) Physician orders for life-sustaining treatment (POLST) form indicates patient wish for vs-[id number] status (Acute) ACP (advance care planning) (Acute) VIVIAN (acute kidney injury) (Acute) Discharge planning issues (Acute) DVT prophylaxis (Acute) Lumbar back pain with radiculopathy affecting right lower extremity (Acute) Hypomagnesemia (Acute) Ambulatory dysfunction (Acute) Weakness (Acute) Hyperglycemia due to type 2 diabetes mellitus (Acute) Urinary tract infection (Acute) Acute back pain (Acute) Medical History Stroke Diabetes CHF (congestive heart failure) Surgical History History of ERCP S/P tonsillectomy Social History Smoking/Tobacco Use Status: Never Smoking risk assessment performed?: Yes Alcohol Intake: never Drug use: Never Substance use type: does not use Housing: apartment What is your relationship status?: Panel score (0-1 are the most socially isolated patients): 0 Time Spent with Patient Time Spent with Patient: >85 minutes Time was spent: preparing to see the patient(eg.review tests), obtaining and/or reviewing separately otained hiistory, ordering medications,tests, procedures, referring, communicating with other health career services director, indepentently interpreting results, counseling the patient and care coordination
[2023-09-06 10:01] LABS: Transferrin 156 mg/dL (201-352)
--- NOTE | 2023-09-06 10:43 | PDOC.HHF2F ---
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 w/sac compression and foraminal narrowing without herniation on MRI ; decision for inpatient admission for ongoing work up, unable to ambulate independently;PT was able to walk with PT and walker, will have new medicines and will need compliance check, PT, OT, and HOSPITAL SUPERINTENDENT Medical diagnosis necessitation home health referral: Patient presented to ED on 09/03 after 4 days of increasing back pain s/p car travel from [place] over 10 days ; work up sig for UTI and hyperglycemia with A1C of 11.4 , CT showed multilevel DJD, 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 w/sac compression and foraminal narrowing without herniation on MRI ; decision for inpatient admission for ongoing work up, unable to ambulate independently;PT was able to walk with PT and walker, will have new medicines and will need compliance check, PT, OT, and HOSPITAL SUPERINTENDENT Registered Nurse: Check all that apply Instruct on new or changed medication(s)/assess compliance: Ordered (compliance on ) Assess for exacerbation of medical condition, instruct patient/caregivers on signs and symptoms to report for early detection: Ordered Physical Therapist: Check all that apply Increase strength & endurance for safe mobility at home: Ordered To design/establish home maintenance program: Ordered Fall reduction therapy program for patient with history of frequent falls: Ordered Home safety evaluation and teaching/gait training including stair management (if applicable): Ordered Occupational Therapist: Evaluate and treat for patient unable to perform ADL/IADL/self-care: Ordered Upper extremity strengthening, range and motion: Ordered Cold Meat Chef: Assist with community resources: Ordered Assist with joint terminal attack controller care planning: Ordered (Needs f/u with PCP referral, urology and podiatry ) Encounter Date and Reason: I certify that a FTF encounter for this patient was performed on September 06, 2023 and that such encounter was related to the primary reason the patient requires home health services. The encounter was conducted in the following manner: By me as the certifying physician, IMPROVEMENT LEAD, PA or By an inpatient physician, IMPROVEMENT LEAD or PA during an inpatient stay who communicated findings to me, Certification And Authentication I certify that I composed the above information based on my clinical judgment relating to this patient's medical condition and, if applicable, clinical findings communicated to me by the NPP or inpatient physician who performed the FTF encounter. Name of Provider that will be monitoring home health services: René Buchanan
--- NOTE | 2023-09-06 10:46 | PDOC.CMPRO ---
Date of service: 09/05/23 Time of Service: 14:00 Care Management Progress Note Progress Note Text Progress Note Text: Patient status changed to OBSERVATION from time of admission as she did not meet inpatient criteria. SDOH(Care Management) Screening Will the Patient Participate in the Screening?: Yes Do you worry about having a steady place to live?: no In the past 12 months, have you had to go without electric, gas, oil or water in your home?: no Have you or anyone in your house had to go without enough food to eat?: no Has lack of transportation kept you from medical appointments or from doing things needed for daily living?: no Has anyone in your support network made you feel unsafe for any reason?: no
[2023-09-06] MEDS: Fosfomycin Tromethamine 3 GM PACKET PO (10:56)
[2023-09-06 11:13] LABS: Lab Add On Test DONE
[2023-09-06 11:29] LABS: Calculated LDL 64 mg/dL (<100); Cholesterol 143 mg/dL (<200); HDL Cholesterol 44 mg/dL (40-60); Triglyceride 175 mg/dL (<150)
--- NOTE | 2023-09-06 11:35 | PT.INTREAT ---
PT Notes Visit Reasons: Acute Back Pain w/Radiculopathy,UTI,Amb. Dysfxn,Un Physical Therapy Inpatient Treatment Note Date: 09/06/2023 Precautions: Fall. Standard. Activity as tolerated. Subjective: Patient indincated to day that they have been to [facility] and [place] in the past 10 days prior to admission without having had any blood sugar medications which may have contributed to her extreme fatigue and mobility decline on admission. Denied dizziness today. Objective: General Observation: Resting in bed. IV through L UE. Love catheter in place. High BMI. R leg and foot swollen. Wound dressing to R heel. Mental Status: Alert and oriented as to person, place, time, and purpose. Able to pay attention, focus, and respond appropriately. Pain: As above Vital Signs: VS now WNL per Nurse Bonnie Bed Mobility/Transfers: Minimal cueing provided for use of B hands as needed for support, movement sequence, AD management, and posture to reduce fall risk and minimize pain report Supine to sit with contact guard assist, HOB at 30 degrees Sit to stand with stand by assist Stand to sit with stand by assist Bed to reclining chair stand by assist Gait: Facilitated safe and correct performance of level surface ambulation covering a distance of 100 feet +100 feet using front wheeled walker with stand by assist and wheelchair follow requiring minimal assistance for limb advancement, AD management, and posture to reduce fall risk and minimize pain report. Assessment: Activity tolerance improving. Did not report of any back pain during this session. Plan of Care/Treatment Plan: 1-2x/day, 7 days/week x 1 week. Plan of care has been reviewed with the SIGNAL OPERATOR LINGUIST providing the service under Physical Therapy direction. Initiate Physical Therapy intervention for pain management as needed, strengthening, bed mobility, transfers, gait, stairs, balance training, and use of assistive device. DISCHARGE RECOMMENDATIONS: [] Home with no services [] [X] Home with services. patient will benefit from home health PT services in order to progress mobility level using least restrictive assistive ambulatory device, assess home safety, identify additional equipment needs, and establish a functional maintenance program that will increase ability of patient to remain at home. [] Home with outpatient PT [] [] SNF for continued rehabilitation [] [] Correction Care [] [] SNF versus LTC based on ability to participate and progress [] TREATMENT CODE/TIME: 61311 x 26 minutes for 2 units (11:35-12:01).
--- NOTE | 2023-09-06 13:26 | PT.INTREAT ---
PT Notes Visit Reasons: Acute Back Pain w/Radiculopathy,UTI,Amb. Dysfxn,Un Date: 09/06/23 PRECAUTIONS: Fall. Standard. Activity as tolerated. SUBJECTIVE: Pt already packed and ready for transport home. agreed to participating with endorsement of HEP. OBJECTIVE: ? Therapeutic Exercises [id number] 10mins: Direct one-on-one instruction in therapeutic exercises to develop strength, endurance, range of motion and flexibility. Exercises: Access Code: [email or web address] URL: [email or web address] Date: 09/06/2023 Prepared by: Mansoor Andersen Exercises - Seated Hip Flexion - 1 x daily - 7 x weekly - 1 sets - 10 reps - Seated Long Arc Quad - 1 x daily - 7 x weekly - 1 sets - 10 reps - Seated Hip Abduction - 1 x daily - 7 x weekly - 1 sets - 10 reps - Seated Heel Raise - 1 x daily - 7 x weekly - 1 sets - 10 reps - Seated Toe Raise - 1 x daily - 7 x weekly - 1 sets - 10 reps - Sit to Stand with Counter Support - 1 x daily - 7 x weekly - 1 sets - 10 reps ? Provided skilled instruction in proper exercise performance Provided skilled manual cues to facilitate proper muscle recruitment and/or form: ASSESSMENT:?Pt able to perform HEP, pt provided with paper copy for guidance and reminders with exercises PLAN: DC to home and will continue with HHPT. TREATMENT CODE/TIME: [id number] 10mins (1:10-1:20pm)
[2023-09-06 13:34] VITALS: BP 148/79; PULSE 73; RESP 16; TEMP 36.3; O2SAT 92
--- NOTE | 2023-09-06 14:05 | NUR.NOTE ---
Love Catheter d/c'd intact. Unable to chart under Urinary Cath Assess flowsheet bc provider completed the Urinary Cath order @ [id number] when she gave us a verbal order to remove it. Pt will d/c later today.
[2023-09-06 14:57] VITALS: BP 139/75; PULSE 62; RESP 19; TEMP 36.8; O2SAT 93
--- NOTE | 2023-09-06 17:24 | PDOC.CMDIS ---
Date of service: 09/06/23 Time of Service: 17:24 LACE Index Scoring Tool Questions: Length of Stay (in days): 2 Was the patient admitted via the E.D.?: Yes E.D. Visits: 0 Answers: Total Score: 5 Risk of Readmission: Low Risk Care Management Discharge Plan Reason for Hospitalization: Acute back pain w/ radiculopathy, UTI, weakness Discharge Plan: Patient advised provider on discharge that she did not have diabetic supplies; provider ordered supplies from [employer] in [facility]. Nilam reported that her family anticipated her staying at [facility] when she arrived. She stated she didn't think her grand-daughter wanted her to live with her. She shared that she had not discussed with her, either. She had reportedly taken a road trip with her family from the [place], after they went to pick her up from a SNF. Reportedly she owed the SNF $22,000 so the family picked her up and brought her to [place]. Her daughter lives in a hotel in [place], her grand-daughter in [facility], works at the [employer] and was hoping Nilam could be placed there. Nilam was evaluated by PT and found to be safe to return home independently with home health PT. Her back pain has resolved and is attributed to being in the car for days on a road trip with her family. CMAA coordinated PCP referral to [facility] per T-doc protocol as well as home health orders to be followed by Dr. Buchanan. [facility] referral completed for [facility] care needs, and options counseling. Patient/Family Education Needs: Review insurance limitations, eligibility requirements for SNF. Services Needed at Discharge: DME Agency, Home Delivered Meals and Home Health Care Services SDOH Health Related Social Needs: No Data to Display
== END 2023-09-06 17:40 | disposition home health service (06) ==
LOC: ER 15:23 → MS 15:58
PROVIDERS: Nurse Practitioner Acute Care; Admitting Provider Internal Medicine; Emergency Provider Nurse Practitioner Family; Visit Provider Internal Medicine
DX: M47.26 Other spondylosis with radiculopathy, lumbar region (principal); M51.16 Intervertebral disc disorders with radiculopathy, lumbar region; N17.9 Acute kidney failure, unspecified; R26.2 Difficulty in walking, not elsewhere classified; E11.65 Type 2 diabetes mellitus with hyperglycemia; Z79.4 Long term (current) use of insulin; N30.00 Acute cystitis without hematuria; R53.1 Weakness; E83.42 Hypomagnesemia; Z66 Do not resuscitate; R32 Unspecified urinary incontinence; Z79.899 Other long term (current) drug therapy; S90.821A Blister (nonthermal), right foot, initial encounter; S30.814A Abrasion of vagina and vulva, initial encounter; X58.XXXA Exposure to other specified factors, initial encounter; B96.20 Unspecified Escherichia coli [E. coli] as the cause of diseases classified elsewhere; Z86.73 Personal history of transient ischemic attack (TIA), and cerebral infarction without residual deficits
CPT/HCPCS: 00123; 36415; 36416; 51702; 80048; 80053; 80061; 82947; 82962; 87077; 96361; 96365; 96366; 96367; 96372; 96375; 97110; 97162; 97166; 97530; 97535; 99285; J1650; 72131; 72148; 81003; 81015; 82728; 83036; 83540; 83550; 83735; 84443; 84466; 85025; 87086; 87186; 99222; 99233; 99239; G0378; J0131; J0696; J1815; J1885; J3360; J3490; J7512

== ENCOUNTER 2023-10-16 12:22 | Inpatient (IN) | payer MEDICARE, SELFPAY ==
[2023-10-16] VITALS (63 sets, daily range): BP systolic 126–181; BP diastolic 54–101; PULSE 72–113; RESP 5–29; TEMP 36.7–36.8; O2SAT 88–94
--- NOTE | 2023-10-16 12:00 | RT.EKG_ITS ---
APPROVED REPORT Exam: Resting ECG Reason for Exam: DIZZY Patient Location: E HR:107 bpm ECG Measurements Heart Rate 107 AXIS LA 167 P 65 QRSd 128 QRS -66 QT 386 T 81 QTc 514 Conclusion Sinus tachycardia [address] changes
--- NOTE | 2023-10-16 12:15 | DI.RAD_ITS ---
Exam(s) XR FOOT RT COMPLETE EXAM: XR FOOT RT COMPLETE CLINICAL HISTORY: FOOT WOUND. TECHNIQUE: 2D digital imaging was performed. COMPARISON: No exams were available for comparison FINDINGS: 3 views There is prominent soft tissue swelling of the dorsal aspect of the foot and ankle. No gas in the so ft tissues. No radiopaque foreign body evident. No evidence of fracture or diastasis of the Lisfranc joint. Advanced degenerative changes are noted in the great toe metatarsophalangeal joint. IMPRESSION: Prominent soft tissue swelling around the ankle and foot. No gas in the soft tissues. No radiopaque foreign body. No evidence of osteomyelitis. Advanced degenerative changes evident in the great toe metatarsophalangeal joint. DATA REPOSITORY: RADIATION DOSE DELIVERED:
--- NOTE | 2023-10-16 12:30 | DI.RAD_ITS ---
Exam(s) XR PORTABLE CHEST AP EXAM: XR PORTABLE CHEST AP CLINICAL HISTORY: VOMITING. TECHNIQUE: 2D digital imaging was performed. COMPARISON: CT CT LUMBAR SPINE SI JOINTS WO from 09/04/2023 FINDINGS: Single AP portable view. Heart size is upper normal. The mediastinum is not widened. Right lung is clear. No confluent infiltrates nor pleural effusions in the left lung. Addition dens ity in left pericardiac region noted at the level the left heart border. Overlapping rib seen at thi s level. No pleural effusions. No pneumothorax. No fractures. IMPRESSION: As above. Recommend nonportable PA and lateral views when clinically possible. DATA REPOSITORY: RADIATION DOSE DELIVERED:
[2023-10-16 12:51] LABS: BE (Venous) 1 mmol/L (-2-3); HCO3 (Venous) 25 mmol/L (23-28); O2 Sat (Venous) 74 %; TCO2 (Venous) 23 mmol/L (24-29); pCO2 (Venous) 41 mmHg (41-51); pO2 (Venous) 39 mmHg
[2023-10-16 12:53] LABS: Abs Immature Grans 0.09 10^3/uL (0.0-0.06); Absolute Basophil Count 0.06 10^3/uL (0.0-0.2); Absolute Lymphocyte Count 0.69 10^3/uL (1.2-3.4); Basophils % 0.3; HCT 43.4 % (36.0-46.0); HGB 13.9 g/dL (11.2-15.7); Immature Grans % 0.4; Lymphocytes % 3.3; MCH 25.2 pg (27.0-33.0); MCV 79 fL (80-95); MPV 9.2 fL (8.0-11.0); Monocytes % 7.2; Neutrophils % 88.8; Platelet Count 308 10^3/uL (130-400); RBC 5.51 10^6/uL (3.93-5.22); RDW 15.4 % (11.7-14.6); RDW-SD 43.7 fL; WBC 20.81 10^3/uL (4.4-10.8)
[2023-10-16] MEDS: Normal Saline 1,000 ML 1000 ML IV (13:00)
[2023-10-16] MEDS: Albuterol/Ipratropium 3 ML UPD VIAL UPD (13:00)
[2023-10-16 13:07] LABS: Absolute Neutrophil Count 18.48 10^3/uL (1.2-6.7)
[2023-10-16 13:17] LABS: ALT 21 U/L (14-59); AST 13 U/L (15-37); Albumin 3.2 g/dL (3.4-5.0); Alkaline Phosphatase 84 U/L (46-116); Anion Gap 15.3 mmol/L (3-11); BUN 11 mg/dL (7-18); Bilirubin, Total 0.9 mg/dL (0.2-1.0); CO2 24.7 mmol/L (21.0-32.0); Calcium 9.1 mg/dL (8.5-10.1); Chloride 93 mmol/L (98-107); Estimated GFR 59.12 (mL/min/1.73m2); Magnesium 1.3 mg/dL (1.8-2.4); NT-proBNP 1063 pg/mL (<300); Potassium 4.1 mmol/L (3.5-5.1); Sodium 133 mmol/L (136-145); Total Protein 8.4 g/dL (6.4-8.2); Troponin I < 50 ng/L (< or =60)
[2023-10-16 13:20] LABS: Glucose 511 mg/dL (74-106)
[2023-10-16 13:51] LABS: Lactate 2.1 mmol/L (0.6-1.4)
[2023-10-16] MEDS: Insulin REGULAR-Human 100 UNITS/ML UNIT 10 UNITS IV (13:54)
[2023-10-16] MEDS: MAGNESIUM SULFATE 2 GM/50 ML BAG IVINF (13:55)
[2023-10-16 14:02] LABS: C-Reactive Protein 8.34 mg/dL (<or=0.5)
--- NOTE | 2023-10-16 14:04 | DI.VRAD_ITS ---
PROCEDURE INFORMATION: Exam: XR Chest Exam date and time: 10/16/2023 1:25 PM Age: 73 years old Clinical indication: Other: Vomiting TECHNIQUE: Imaging protocol: Radiologic exam of the chest. Views: 1 view. COMPARISON: No relevant prior studies available. FINDINGS: Lungs: Pulmonary vascular markings upper normal. No consolidation. Pleural spaces: Unremarkable. No pleural effusion. No pneumothorax. Heart/Mediastinum: Mild cardiomegaly. Bones/joints: Unremarkable. IMPRESSION: No acute abnormality identified. Dictated and Authenticated by: Efraín Koch MD. Ordering:ROBBIE Duke MD
--- NOTE | 2023-10-16 14:10 | DI.VRAD_ITS ---
PROCEDURE INFORMATION: Exam: XR Right Foot Exam date and time: 10/16/2023 1:27 PM Age: 73 years old Clinical indication: Other: Open wound on heel; Additional info: Vomiting TECHNIQUE: Imaging protocol: Radiologic exam of the right foot. Views: 3 or more views. COMPARISON: No relevant prior studies available. FINDINGS: Bones/joints: Mild hallux valgus. Associated degenerative change first MTP joint. Plantar calcaneal spur. No acute fracture. No acute malalignment. Soft tissues: Normal. Vasculature: Small vessel atherosclerotic calcification. IMPRESSION: No acute bony abnormality. Dictated and Authenticated by: Efraín Koch MD. Ordering:ROBBIE Duke MD
[2023-10-16 14:11] LABS: ESR 46 mm/hr (0-30)
[2023-10-16 14:20] LABS: Procalcitonin 0.5 ng/mL
--- NOTE | 2023-10-16 14:26 | ED.GENADUL_ITS ---
Discharge Plan Disposition Patient Disposition: Admit to [facility] Condition: Fair Discharge Details Chief Complaint: GenMedical Clinical Impression: Hyperglycemia due to type 2 diabetes mellitus, Diabetic foot infection Primary Care Provider: Unknown,Unknown ED Provider: Faiza Samuel Home Meds and New Rx's Prescriptions: No Action benzonatate 200 mg capsule 200 mg PO Q8H PRN Rx Instructions: 200 mg orally PRN; gabapentin 300 mg capsule 300 mg PO Q8H atorvastatin 40 mg tablet 40 mg PO DAILY trazodone 50 mg tablet 50 mg PO QHS PRN levothyroxine 150 mcg capsule 150 mcg PO DAILY acetaminophen 500 mg Tablet 1,000 mg PO TID MDD 3000 mg Qty: 60 0RF docusate sodium [Colace] 100 mg Capsule 100 mg PO DAILY Qty: 30 0RF ferrous sulfate 325 mg (65 mg iron) Tablet 325 mg PO DAILY Qty: 30 0RF pantoprazole 40 mg Tablet,Delayed Release (Dr/Ec) 40 mg PO DAILY@0730 Qty: 10 0RF metformin 500 mg tablet 500 mg PO BIDWMEAL Qty: 60 0RF insulin glargine 100 unit/mL solution 12 unit subcut DAILY Qty: 0 0RF (DME) lancets [FreeStyle Lancets] 28 gauge misc See Rx Instructions .Route Qty: 100 0RF Rx Instructions: As directed (DME) blood-glucose meter [FreeStyle Lite Meter] Kit See Rx Instructions .Route Qty: 1 0RF Rx Instructions: As directed (DME) FreeStyle Lite Strips Strip See Rx Instructions .Route Qty: 100 0RF Rx Instructions: As directed insulin glargine [Lantus Solostar U-100 Insulin] 100 unit/mL (3 mL) Insulin Pen 20 unit subcut DAILY Qty: 15 0RF Rx Instructions: AT bedtime HPI General Date/Time Provider Initiated Documentation: 10/16/23 12:27 . Limitations to Documentation: physical limitation . Information obtained by: patient . HPI Narrative: 73-year-old female with past medical history of diabetes presents for evaluation of vomiting and foot wound. She reports that she has been vomiting several times just today. Reports that she does not feel well. States that she is compliant with her metformin. Takes 20 units of insulin daily. She states that she noted a wound on her right heel. It has been there for very long. She reports that she has not seen a doctor about it though. Related Data Home Medications Medication Instructions Recorded Confirmed atorvastatin 40 mg tablet 40 mg PO DAILY 09/04/23 10/16/23 benzonatate 200 mg capsule 200 mg PO Q8H PRN 09/04/23 10/16/23 gabapentin 300 mg capsule 300 mg PO Q8H 09/04/23 10/16/23 levothyroxine 150 mcg capsule 150 mcg PO DAILY 09/04/23 10/16/23 trazodone 50 mg tablet 50 mg PO QHS PRN 09/04/23 10/16/23 acetaminophen 500 mg tablet 1,000 mg (2 x 500 mg) PO TID #60 09/06/23 10/16/23 tabs blood sugar diagnostic (FreeStyle #100 ea 09/06/23 10/16/23 Lite Strips) blood-glucose meter (FreeStyle #1 ea 09/06/23 10/16/23 Lite Meter kit) docusate sodium 100 mg capsule 100 mg PO DAILY #30 caps 09/06/23 10/16/23 (Colace) ferrous sulfate 325 mg (65 mg 325 mg PO DAILY #30 tabs 09/06/23 10/16/23 iron) tablet insulin glargine 100 unit/mL (3 20 unit (0.2 mL) subcut DAILY HS 09/06/23 10/16/23 mL) subcutaneous pen (Lantus #15 mL Solostar U-100 Insulin) insulin glargine 100 unit/mL 12 unit (0.12 mL) subcut DAILY #0 09/06/23 10/16/23 subcutaneous solution mL lancets 28 gauge (FreeStyle #100 ea 09/06/23 10/16/23 Lancets) metformin 500 mg tablet 500 mg PO BIDWMEAL #60 tabs 09/06/23 10/16/23 pantoprazole 40 mg tablet,delayed 40 mg PO DAILY@0730 #10 tabs 09/06/23 10/16/23 release Previous Rx's Medication Instructions Recorded acetaminophen 500 mg tablet 1,000 mg (2 x 500 mg) PO TID #60 09/06/23 tabs blood sugar diagnostic (FreeStyle #100 ea 09/06/23 Lite Strips) blood-glucose meter (FreeStyle #1 ea 09/06/23 Lite Meter kit) docusate sodium 100 mg capsule 100 mg PO DAILY #30 caps 09/06/23 (Colace) ferrous sulfate 325 mg (65 mg 325 mg PO DAILY #30 tabs 09/06/23 iron) tablet insulin glargine 100 unit/mL (3 20 unit (0.2 mL) subcut DAILY HS 09/06/23 mL) subcutaneous pen (Lantus #15 mL Solostar U-100 Insulin) insulin glargine 100 unit/mL 12 unit (0.12 mL) subcut DAILY #0 09/06/23 subcutaneous solution mL lancets 28 gauge (FreeStyle #100 ea 09/06/23 Lancets) metformin 500 mg tablet 500 mg PO BIDWMEAL #60 tabs 09/06/23 pantoprazole 40 mg tablet,delayed 40 mg PO DAILY@0730 #10 tabs 09/06/23 release Allergies Allergy/AdvReac Type Severity Reaction Status Date / Time No Known Allergies Allergy Unverified 10/16/23 12:53 General Stated Complaint: GenMedical [place]: 3 Exam Narrative Exam Narrative: Review of Systems: All systems reviewed & are unremarkable except as noted in HPI and below Well-developed, disheveled, ill-appearing, foul-smelling NCAT PERRL, normal conjunctiva Dry mucous membranes Tachycardic Mild tachypnea, O2 sat around 90, coarse breath sounds bilaterally Nondistended abdomen , nontender Extremities w/o deformity, no cyanosis Right foot with large 2 x 2 wound on the heel, not fluctuant, discolored with central ulceration no focal neurologic deficits Appropriate mood and affect Course Vital Signs Vital signs: Vital Signs Temperature 36.7 C 10/16/23 12:23 Pulse 110 H 10/16/23 12:23 Respiratory Rate 14 10/16/23 12:23 Blood Pressure 181/93 H 10/16/23 12:23 Pulse Oximetry 90 L 10/16/23 12:23 Temperature 36.7 C 10/16/23 12:29 Temperature Source Oral 10/16/23 12:29 Pulse 104 H 10/16/23 13:46 Pulse 105 H 10/16/23 13:46 Respiratory Rate 21 10/16/23 13:46 Respiratory Effort Normal, Non-Labored 10/16/23 13:01 Respiratory Depth Normal 10/16/23 13:01 Respiratory Pattern Normal 10/16/23 13:01 Blood Pressure 169/101 H 10/16/23 13:46 Blood Pressure Mean 116 10/16/23 13:46 Blood Pressure Position Supine 10/16/23 12:29 Pulse Oximetry 92 10/16/23 13:00 Oxygen Delivery Method Nasal Cannula 10/16/23 13:00 Oxygen Flow Rate 2 10/16/23 12:42 Pain Level 8 10/16/23 12:29 Comment PT c/o abd pain 10/16/23 12:29 Lab/Test Results Lab/Test Results: 10/16/23 14:03 Blood Blood Culture - Pending 10/16/23 13:38 Blood Blood Culture - Pending Laboratory Tests Range/Units 10/16/23 10/16/23 10/16/23 12:45 12:45 13:38 WBC (4.4-10.8) 10^3/uL 20.81 H RBC (3.93-5.22) 10^6/uL 5.51 H Hgb (11.2-15.7) g/dL 13.9 Hct (36.0-46.0) % 43.4 MCV (80-95) fL 79 L MCH (27.0-33.0) pg 25.2 L MCHC (32.0-36.0) % 32.0 RDW (11.7-14.6) % 15.4 H Plt Count (130-400) 10^3/uL 308 MPV (8.0-11.0) fL 9.2 Immature Gran % 0.4 Neutrophils % 88.8 Lymphocytes % 3.3 Monocytes % 7.2 Eosinophils % 0.0 Basophils % 0.3 Nucleated RBC % (0.0-0.3) % 0.0 Absolute Neutrophils (1.2-6.7) 10^3/uL 18.48 H Absolute Lymphocytes (1.2-3.4) 10^3/uL 0.69 L Absolute Monocytes (0.1-0.8) 10^3/uL 1.50 H Absolute Eosinophils (0.0-0.7) 10^3/uL 0.00 Absolute Basophils (0.0-0.2) 10^3/uL 0.06 ESR (0-30) mm/hr VBG pH (7.31-7.41) 7.40 VBG pCO2 (41-51) mmHg 41 VBG pO2 mmHg 39 VBG HCO3 (23-28) mmol/L 25 VBG Total CO2 (24-29) mmol/L 23 L VBG O2 Saturation % 74 VBG Base Excess (-2-3) mmol/L 1 VBG Lactate (0.6-1.4) mmol/L 2.1 H Sodium (136-145) mmol/L 133 L Potassium (3.5-5.1) mmol/L 4.1 Chloride (98-107) mmol/L 93 L Carbon Dioxide (21.0-32.0) mmol/L 24.7 Anion Gap (3-11) mmol/L 15.3 H BUN (7-18) mg/dL 11 Creatinine (0.55-1.02) mg/dL 1.0 Est GFR (CKD-EPI 2020) (mL/min/1.73m2) 59.12 Glucose (74-106) mg/dL 511 H* Calcium (8.5-10.1) mg/dL 9.1 Magnesium (1.8-2.4) mg/dL 1.3 L Total Bilirubin (0.2-1.0) mg/dL 0.9 AST (15-37) U/L 13 L ALT (14-59) U/L 21 Alkaline Phosphatase (46-116) U/L 84 Troponin I (< or =60) ng/L < 50 C-Reactive Protein (<or=0.5) mg/dL 8.34 H NT-Pro-B Natriuret Pep (<300) pg/mL 1063 H Cancelled Total Protein (6.4-8.2) g/dL 8.4 H Albumin (3.4-5.0) g/dL 3.2 L Procalcitonin ng/mL 0.5 Range/Units 10/16/23 14:03 WBC (4.4-10.8) 10^3/uL RBC (3.93-5.22) 10^6/uL Hgb (11.2-15.7) g/dL Hct (36.0-46.0) % MCV (80-95) fL MCH (27.0-33.0) pg MCHC (32.0-36.0) % RDW (11.7-14.6) % Plt Count (130-400) 10^3/uL MPV (8.0-11.0) fL Immature Gran % Neutrophils % Lymphocytes % Monocytes % Eosinophils % Basophils % Nucleated RBC % (0.0-0.3) % Absolute Neutrophils (1.2-6.7) 10^3/uL Absolute Lymphocytes (1.2-3.4) 10^3/uL Absolute Monocytes (0.1-0.8) 10^3/uL Absolute Eosinophils (0.0-0.7) 10^3/uL Absolute Basophils (0.0-0.2) 10^3/uL ESR (0-30) mm/hr 46 H VBG pH (7.31-7.41) VBG pCO2 (41-51) mmHg VBG pO2 mmHg VBG HCO3 (23-28) mmol/L VBG Total CO2 (24-29) mmol/L VBG O2 Saturation % VBG Base Excess (-2-3) mmol/L VBG Lactate (0.6-1.4) mmol/L Sodium (136-145) mmol/L Potassium (3.5-5.1) mmol/L Chloride (98-107) mmol/L Carbon Dioxide (21.0-32.0) mmol/L Anion Gap (3-11) mmol/L BUN (7-18) mg/dL Creatinine (0.55-1.02) mg/dL Est GFR (CKD-EPI 2020) (mL/min/1.73m2) Glucose (74-106) mg/dL Calcium (8.5-10.1) mg/dL Magnesium (1.8-2.4) mg/dL Total Bilirubin (0.2-1.0) mg/dL AST (15-37) U/L ALT (14-59) U/L Alkaline Phosphatase (46-116) U/L Troponin I (< or =60) ng/L C-Reactive Protein (<or=0.5) mg/dL NT-Pro-B Natriuret Pep (<300) pg/mL Total Protein (6.4-8.2) g/dL Albumin (3.4-5.0) g/dL Procalcitonin ng/mL Medical Decision Making Emergent evaluation of hyperglycemia and foot wound. Initial differential as concerning for diabetic foot wound, osteomyelitis, less likely necrotizing infection. Hyperglycemia concerning for DKA or other infectious etiology. Patient is to be slightly hypoxic on arrival, no significant increased work of breathing but pretty coarse breath sounds bilaterally. I will give a DuoNeb just to see if this opens her up and allows her to breathe more comfortably. She has been placed on supplemental O2. The patient appears dehydrated. She was given Zofran by EMS, will begin fluid resuscitation. I reviewed the medical record and did not note a prior echo or any history of heart failure. Lab work reviewed, patient has significant leukocytosis at 20. With shift. no significant anemia. Her ESR and CRP are also elevated. Her VBG does not demonstrate acidosis. Her lactic acid is slightly elevated. Her creatinine is at baseline, her magnesium level is slightly low. Her BNP is slightly elevated at 1000, her chest x-ray does not reveal any focal consolidation or significant signs of pulmonary edema. Her urinalysis does demonstrate ketones, and is nitrite positive. A culture has been sent. An x-ray of the foot was obtained, there does not appear to be any gas or osseous erosion the patient would likely benefit from an MRI I have started Zosyn for her foot wound and Rocephin for her urinary tract infection. Discussed with the hospitalist. Will admit the patient for further management. Given her ketones in her urine, he is concern for DKA, so he would like to order a insulin infusion. She has received 10 units of IV insulin and a fluid bolus, this has improved her insulin, a repeat BMP was obtained and her gap has closed. Medical Records Medical records reviewed: Yes I reviewed the patient's medical records. Lab Data Lab results reviewed: Yes I reviewed the patient's lab results. Quality:SDAL Health Related Social Needs: No Data to Display Critical Care Time Critical Care Time Critical Care Time: Yes Total Critical Care Time: 33 Attestation: CRITICAL CARE Upon my evaluation, this patient had a high probability of imminent or life- threatening deterioration due to hyperglycemia which required my direct attention, intervention, and personal management. I have personally provided 33 minutes of critical care time exclusive of time spent on separately billable procedures. Time includes review of laboratory data, radiology results, discussion with consultants, and monitoring for potential decompensation. Interventions were performed as documented above [facility] All Active Problems (Updated 10/16/23 @ 16:28 by Faiza Samuel MD) Diabetic foot infection (Acute) Low serum iron (Acute) Lumbar back pain with radiculopathy affecting right lower extremity (Acute) Ambulatory dysfunction (Acute) Weakness (Acute) Hyperglycemia due to type 2 diabetes mellitus (Acute) Medical History Urinary tract infection Palliative care patient Physician orders for life-sustaining treatment (POLST) form indicates patient wish for [id number] status ACP (advance care planning) Stroke Diabetes CHF (congestive heart failure) Surgical History History of ERCP S/P tonsillectomy Social History Smoking/Tobacco Use Status: Never Smoking risk assessment performed?: Yes Alcohol Intake: never Drug use: Never Substance use type: does not use Housing: apartment What is your relationship status?: Panel score (0-1 are the most socially isolated patients): 0
[2023-10-16 14:46] LABS: Bilirubin Negative (Negative); Blood Trace-lysed (Negative); Clarity Cloudy (Clear); Glucose >=1000 mg/dL (Negative); Ketones 80 mg/dL (Negative); Leukocyte Esterase Negative (Negative); Nitrite Positive (Negative); Specific Gravity 1.015 (1.005-1.025); Urobilinogen 0.2 mg/dL (Up to 0.2)
[2023-10-16 14:54] LABS: Bacteria Many HPF (Negative); Casts Negative LPF (Negative); Crystals Negative HPF (Negative); Epithelial Cells Few HPF (Negative); Mucus Trace (Negative); RBC 0-2 HPF (0-2)
[2023-10-16 14:55] LABS: C & S Indicated? Yes
[2023-10-16] MEDS: PIPERACILLIN/TAZO 4.5 GM in Normal Saline 100 ML IVPB (15:00)
[2023-10-16] MEDS: cefTRIAXone 1 GM/50 ML BAG IVPB (15:36)
[2023-10-16] MEDS: INSULIN REGULAR IN 0.9 % NACL 100 UNIT/100 ML BAG 6 UNIT IV (15:57)
[2023-10-16 16:00] LABS: Anion Gap 9.4 mmol/L (3-11); BUN 11 mg/dL (7-18); CO2 29.6 mmol/L (21.0-32.0); CREATININE 1.1 mg/dL (0.55-1.02); Calcium 8.8 mg/dL (8.5-10.1); Chloride 97 mmol/L (98-107); Estimated GFR 52.73 (mL/min/1.73m2); Glucose 430 mg/dL (74-106); Potassium 4.1 mmol/L (3.5-5.1); Sodium 136 mmol/L (136-145)
[2023-10-16] MEDS: DEXTROSE 5%-0.45% SALINE 1,000 ML 100 ML IV (17:13)
[2023-10-16 17:27] LABS: MRSA PCR Positive (Negative)
[2023-10-16] MEDS: POTASSIUM CHLORIDE/0.9% NACL 1,000 ML 150 MEQ IV (18:06)
--- NOTE | 2023-10-16 18:22 | HPE_ITS ---
Date of service: 10/16/23 Time of Service: 18:22 Assessment and Plan Assessment and plan (1) Diabetic foot infection: Status: Acute Assessment and plan: Continue broad-spectrum antibiotics with Zosyn and vancomycin, podiatry consult in the morning for surgical debridement, may need an MRI scan to rule out osteomyelitis however on plain films no evidence of bony erosion or gas in the soft tissue. Critical care time spent interviewing and examining the patient, reviewing studies, discussing case with patient's nurse and consulting physicians was 45 minutes (2) DKA (diabetic ketoacidoses): Status: Acute Assessment and plan: IV insulin per yellow protocol, frequent blood sugar monitoring every hour along with BMPs every 2 hours. Potassium supplementation to keep potassium greater than 4.0 aggressive IV hydration Qualifiers: Diabetes mellitus type: type 2 Diabetes mellitus complication detail: w [facility] coma Qualified Code(s): E11.10 - Type 2 diabetes mellitus with ketoacidosis without coma (3) Poorly controlled type 2 diabetes mellitus with peripheral neuropathy: Status: Acute Assessment and plan: Last glycohemoglobin 11.4% as of 09/05/2023, patient needs to be on basal bolus insulin at home and more frequent monitoring and frequent follow-ups with her PCP as well as diabetic education. For now we will treat her DKA with IV insulin and IV fluids and once she is out of DKA and her anion gap is closed we will convert her to basal bolus insulin along with meal coverage. (4) DVT prophylaxis: Status: Acute Assessment and plan: Enoxaparin 40 mg subcutaneous daily History of Present Illness History of Present Illness Chief Complaint: elevated glucose, nausea and vomiting, right heel ulcer Narrative: This 73-year-old female with history of type 2 diabetes mellitus requiring insulin as well as metformin, hyperlipidemia, previous CVA presented to the emergency department because of nausea and vomiting and uncontrolled blood sugars. She also has noticed that she has an ulcer on her left heel. Evaluation emergency department demonstrated left heel ulcer with eschar but x- ray imaging of her left foot showed prominent soft tissue swelling around the ankle and foot but no gas in the left foot tissues. No evidence of osteomyelitis. Laboratory studies were remarkable for a white count of 20,800 chemistry panel showed elevated glucose of 511 with an elevated anion gap of 15.3 and urine was remarkable for 80 mg/dL ketones along with positive nitrites many bacteria and glycosuria of greater than 1000 mg/dL. Other imaging included a chest x-ray which showed no acute abnormalities. Patient was started on IV antibiotics for diabetic foot ulcer and she was treated with Zosyn and subsequently has been ordered vancomycin as well. She was given 10 units of NovoLog which brought her glucose down to 489. At that point was decided to start her on insulin drip and admit her to the intensive care unit for treatment of DKA and diabetic foot ulcer and sepsis secondary to her diabetic foot wound. Review of Systems All systems reviewed & are unremarkable except as noted in HPI and below PFSH All Active Problems (Updated 10/16/23 @ 19:43 by Anish Taylor MD) DVT prophylaxis (Acute) Poorly controlled type 2 diabetes mellitus with peripheral neuropathy (Acute) DKA (diabetic ketoacidoses) (Acute) Diabetic foot infection (Acute) Low serum iron (Acute) Lumbar back pain with radiculopathy affecting right lower extremity (Acute) Ambulatory dysfunction (Acute) Weakness (Acute) Hyperglycemia due to type 2 diabetes mellitus (Acute) Medical History Urinary tract infection Palliative care patient Physician orders for life-sustaining treatment (POLST) form indicates patient wish for [id number] status ACP (advance care planning) Stroke Diabetes CHF (congestive heart failure) Surgical History History of ERCP S/P tonsillectomy Social History Smoking/Tobacco Use Status: Never Smoking risk assessment performed?: Yes Alcohol Intake: never Drug use: Never Substance use type: does not use Housing: apartment What is your relationship status?: Panel score (0-1 are the most socially isolated patients): 0 Meds Allergies and Home Medications Allergies Allergy/AdvReac Type Severity Reaction Status Date / Time No Known Allergies Allergy Unverified 10/16/23 12:53 Home Medications Medication Instructions Recorded Confirmed Type atorvastatin 40 mg tablet 40 mg PO DAILY 09/04/23 10/16/23 History benzonatate 200 mg capsule 200 mg PO Q8H PRN 09/04/23 10/16/23 History gabapentin 300 mg capsule 300 mg PO Q8H 09/04/23 10/16/23 History levothyroxine 150 mcg capsule 150 mcg PO DAILY 09/04/23 10/16/23 History trazodone 50 mg tablet 50 mg PO QHS PRN 09/04/23 10/16/23 History acetaminophen 500 mg tablet 1,000 mg (2 x 500 mg) PO TID #60 09/06/23 10/16/23 Rx tabs blood sugar diagnostic (FreeStyle #100 ea 09/06/23 10/16/23 Rx Lite Strips) blood-glucose meter (FreeStyle #1 ea 09/06/23 10/16/23 Rx Lite Meter kit) docusate sodium 100 mg capsule 100 mg PO DAILY #30 caps 09/06/23 10/16/23 Rx (Colace) ferrous sulfate 325 mg (65 mg 325 mg PO DAILY #30 tabs 09/06/23 10/16/23 Rx iron) tablet insulin glargine 100 unit/mL (3 20 unit (0.2 mL) subcut DAILY HS 09/06/23 10/16/23 Rx mL) subcutaneous pen (Lantus #15 mL Solostar U-100 Insulin) insulin glargine 100 unit/mL 12 unit (0.12 mL) subcut DAILY #0 09/06/23 10/16/23 Rx subcutaneous solution mL lancets 28 gauge (FreeStyle #100 ea 09/06/23 10/16/23 Rx Lancets) metformin 500 mg tablet 500 mg PO BIDWMEAL #60 tabs 09/06/23 10/16/23 Rx pantoprazole 40 mg tablet,delayed 40 mg PO DAILY@0730 #10 tabs 09/06/23 10/16/23 Rx release Exam Narrative Exam Narrative: Alert and oriented x4 HEENT: Atraumatic normocephalic, pupils equally round reactive to light and accommodation, extraocular motion intact, TMs intact, nares moist and patent without exudate or bleeding, oropharynx noninjected without exudate, upper and lower dentures are in place Neck: Supple, nontender, without thyromegaly or lymphadenopathy or JVD. Normal carotid pulses Lungs: Clear to auscultation and percussion Heart: Regular rate and rhythm without murmur rub or gallop. Normal apical impulse Abdomen: Obese soft mild epigastric tenderness without guarding or rebound tenderness no organomegaly no bruits normal active bowel sounds Genitalia and rectal exam: Deferred Breasts: Deferred Extremities: Normal range of motion with normal strength. No peripheral cyanosis or edema. Left foot with ulceration along the lateral aspect of the left heel with central ulcer and some eschar and surrounding white devitalized tissue around the rim of the ulcer. Ulcer is tender to palpation. She has poor pedal pulses, right foot without any visible ulceration. She has normal range of motion and strength Neurologic: Cranial nerves grossly intact, no focal motor deficits. Sensory exam diminished to light touch over both feet Results Labs 10/16/23 12:45 10/16/23 18:08 Labs: Laboratory Results - last 24 hr 10/16/23 10/16/23 10/16/23 12:45 12:45 13:38 WBC 20.81 H RBC 5.51 H Hgb 13.9 Hct 43.4 MCV 79 L MCH 25.2 L MCHC 32.0 RDW 15.4 H Plt Count 308 MPV 9.2 Immature Gran % 0.4 Neutrophils % 88.8 Lymphocytes % 3.3 Monocytes % 7.2 Eosinophils % 0.0 Basophils % 0.3 Nucleated RBC % 0.0 Absolute Neutrophils 18.48 H Absolute Lymphocytes 0.69 L Absolute Monocytes 1.50 H Absolute Eosinophils 0.00 Absolute Basophils 0.06 ESR VBG pH 7.40 VBG pCO2 41 VBG pO2 39 VBG HCO3 25 VBG Total CO2 23 L VBG O2 Saturation 74 VBG Base Excess 1 VBG Lactate 2.1 H Sodium 133 L Potassium 4.1 Chloride 93 L Carbon Dioxide 24.7 Anion Gap 15.3 H BUN 11 Creatinine 1.0 Est GFR (CKD-EPI 2020) 59.12 Glucose 511 H* Calcium 9.1 Magnesium 1.3 L Total Bilirubin 0.9 AST 13 L ALT 21 Alkaline Phosphatase 84 Troponin I < 50 C-Reactive Protein 8.34 H NT-Pro-B Natriuret Pep 1063 H Cancelled Total Protein 8.4 H Albumin 3.2 L Procalcitonin 0.5 Urine Color Urine Clarity Urine pH Ur Specific [place] Urine Protein Urine Ketones Urine Blood Urine Nitrite Urine Bilirubin Urine Urobilinogen Ur Leukocyte Esterase Urine RBC Urine WBC Ur Epithelial Cells Urine Crystals Urine Bacteria Urine Casts Urine Mucus Ur Culture Indicated? Urine Glucose MRSA (TEM-PCR) 10/16/23 10/16/23 10/16/23 14:03 14:38 15:44 WBC RBC Hgb Hct MCV MCH MCHC RDW Plt Count MPV Immature Gran % Neutrophils % Lymphocytes % Monocytes % Eosinophils % Basophils % Nucleated RBC % Absolute Neutrophils Absolute Lymphocytes Absolute Monocytes Absolute Eosinophils Absolute Basophils ESR 46 H VBG pH VBG pCO2 VBG pO2 VBG HCO3 VBG Total CO2 VBG O2 Saturation VBG Base Excess VBG Lactate Sodium 136 Potassium 4.1 Chloride 97 L Carbon Dioxide 29.6 Anion Gap 9.4 BUN 11 Creatinine 1.1 H Est GFR (CKD-EPI 2020) 52.73 Glucose 430 H Calcium 8.8 Magnesium Total Bilirubin AST ALT Alkaline Phosphatase Troponin I C-Reactive Protein NT-Pro-B Natriuret Pep Total Protein Albumin Procalcitonin Urine Color Yellow Urine Clarity Cloudy Urine pH 5.0 Ur Specific [place] 1.015 Urine Protein 100 H Urine Ketones 80 H Urine Blood Trace-lysed H Urine Nitrite Positive H Urine Bilirubin Negative Urine Urobilinogen 0.2 Ur Leukocyte Esterase Negative Urine RBC 0-2 Urine WBC 5-10 Ur Epithelial Cells Few Urine Crystals Negative Urine Bacteria Many Urine Casts Negative Urine Mucus Trace Ur Culture Indicated? Yes Urine Glucose >=1000 H MRSA (TEM-PCR) 10/16/23 16:14 WBC RBC Hgb Hct MCV MCH MCHC RDW Plt Count MPV Immature Gran % Neutrophils % Lymphocytes % Monocytes % Eosinophils % Basophils % Nucleated RBC % Absolute Neutrophils Absolute Lymphocytes Absolute Monocytes Absolute Eosinophils Absolute Basophils ESR VBG pH VBG pCO2 VBG pO2 VBG HCO3 VBG Total CO2 VBG O2 Saturation VBG Base Excess VBG Lactate Sodium Potassium Chloride Carbon Dioxide Anion Gap BUN Creatinine Est GFR (CKD-EPI 2020) Glucose Calcium Magnesium Total Bilirubin AST ALT Alkaline Phosphatase Troponin I C-Reactive Protein NT-Pro-B Natriuret Pep Total Protein Albumin Procalcitonin Urine Color Urine Clarity Urine pH Ur Specific [place] Urine Protein Urine Ketones Urine Blood Urine Nitrite Urine Bilirubin Urine Urobilinogen Ur Leukocyte Esterase Urine RBC Urine WBC Ur Epithelial Cells Urine Crystals Urine Bacteria Urine Casts Urine Mucus Ur Culture Indicated? Urine Glucose MRSA (TEM-PCR) Positive A Last Vital Signs Temp 36.8 C 10/16/23 17:37 Pulse 108 H 10/16/23 16:31 Resp 26 H 10/16/23 17:37 BP 154/76 H 10/16/23 16:31 Pulse Ox 93 10/16/23 17:37 Time Spent Time spent with Patient: 40-54 minutes Time was spent: preparing to see the patient(eg.review tests), ordering medications,tests, procedures, referring, communicating with other health respiratory care faculty (ED provider in the ICU nurses), indepentently interpreting results, counseling the patient and care coordination
[2023-10-16 18:33] LABS: Anion Gap 12.5 mmol/L (3-11); BUN 12 mg/dL (7-18); CO2 26.5 mmol/L (21.0-32.0); CREATININE 1.1 mg/dL (0.55-1.02); Calcium 9.1 mg/dL (8.5-10.1); Chloride 97 mmol/L (98-107); Estimated GFR 52.73 (mL/min/1.73m2); Glucose 423 mg/dL (74-106); PHOSPHORUS 3.1 mg/dL (2.6-4.7); Potassium 3.8 mmol/L (3.5-5.1); Sodium 136 mmol/L (136-145)
[2023-10-16] MEDS: Enoxaparin 40 MG/0.4 ML SYR SC (19:18)
[2023-10-16] MEDS: Pantoprazole 40 MG VIAL IVP (19:18)
[2023-10-16] MEDS: VANCOMYCIN 1,500 MG in Normal Saline 250 ML 166.667 MG IVPB (20:14)
[2023-10-16] MEDS: Normal Saline Flush 10 ML SYR IVP (20:29)
[2023-10-16 20:33] LABS: Anion Gap 11.3 mmol/L (3-11); BUN 12 mg/dL (7-18); CO2 27.7 mmol/L (21.0-32.0); Chloride 98 mmol/L (98-107); Estimated GFR 59.12 (mL/min/1.73m2); Glucose 347 mg/dL (74-106); Potassium 3.9 mmol/L (3.5-5.1); Sodium 137 mmol/L (136-145)
[2023-10-16 22:23] LABS: Anion Gap 9.6 mmol/L (3-11); BUN 14 mg/dL (7-18); CO2 27.4 mmol/L (21.0-32.0); CREATININE 0.9 mg/dL (0.55-1.02); Calcium 8.8 mg/dL (8.5-10.1); Chloride 101 mmol/L (98-107); Estimated GFR 67.08 (mL/min/1.73m2); Glucose 231 mg/dL (74-106); Potassium 3.8 mmol/L (3.5-5.1); Sodium 138 mmol/L (136-145)
[2023-10-17] VITALS (26 sets, daily range): BP systolic 127–138; BP diastolic 66–76; PULSE 100–110; RESP 24–32; TEMP 36.4–37; O2SAT 89–96
--- NOTE | 2023-10-17 | DI.MRI_ITS ---
Exam(s) MR LOWER JOINT RT WO EXAM: MR LOWER JOINT RT WO CLINICAL HISTORY: abscess right heel TECHNIQUE: Multiplanar multisequence MRI was performed without intravenous contrast. T1 and STIR sequences were performed in all 3 planes. Patient cannot receive IV contrast because of renal status. COMPARISON: Plain films of 10/16/2023 reviewed. FINDINGS: SKIN: There is skin thickening-callus formation over the posterior aspect of the calcaneus. Also sub cutaneous signal abnormality posterior to the distal aspect of the Achilles tendon. There does not a ppear to be an obvious tract at this level. There is a small enthesophyte on the posterior calcaneus Achilles insertion site. There is no abnormal signal within the Achilles tendon. There is trace in creased fluid within the retrocalcaneal bursa. There is a moderate size inferior calcaneal spur. Th is does not exhibit abnormal signal. There is mild thickening of the plantar fascia but without evid ence of tear signal. No abnormal nodularity. There is no heel pad fluid collection. There is subcutaneous edema over the dorsal aspect of the ankle and visualized proximal foot BONES/JOINTS: There is no abnormal intraosseous signal in the calcaneus. There is no abnormal confluent hypointens ity on T1 images (which is probably the most specific sequence for determining the presence of osteom yelitis) and there is no abnormal signal in the calcaneus on the STIR images. No evidence of fracture nor bone contusion. No joint effusion is present. The talar dome appears unr emarkable. The ankle mortise is maintained. There is no evidence of para-articular ganglion.There i s no evidence of osseous tarsal coalition. LIGAMENTS: The anterior and posterior tibiofibular and calcaneofibular ligaments are intact. The ante rior and posterior talofibular ligaments are intact. The deltoid ligament is intact. SINUS TARSI: There is no loss of the normal fat signal in this space. Interosseous ligament is intac t. There is no evidence of sinus tarsi ganglion cyst. ANTEROLATERAL GUTTER:There is no abnormal signal/abnormal tissue in this space. MUSCULOTENDINOUS STRUCTURES: Achilles tendon: Unremarkable. No evidence of tear nor tendinitis/tendinosis. Anterior Extensor tendons: Unremarkable. Medial Tendons: Posterior Tibialis: Unremarkable. No tear or tenosynovitis evident. Flexor Digitorum longus: Unremarkable. No tear or tenosynovitis evident. Flexor Hallicus longus: Mild tenosynovitis. No tear Lateral Tendons: Peroneus longus: Unremarkable. No tear nor tenosynovitis evident. Peroneus brevis:Unremarkable. No tear nor tenosynovitis evident. SOFT TISSUES: Soft tissue edema over the dorsal aspect of the foot noted. Also medially and laterall y. OTHER FINDINGS: None. IMPRESSION: 1. Tissue findings around the posterior calcaneus and posterior to the distal Achilles tendon. Bliss nickolas, there is no abnormal intraosseous signal to suggest osteomyelitis. Also no abnormal signal with in the distal Achilles tendon. Mild thickening of the plantar fascia noted. No tear. 2. Mild tenosynovitis of the flexor hallucis longus tendon noted. 3. Other findings as above. DATA REPOSITORY:
[2023-10-17 00:26] LABS: BUN 15 mg/dL (7-18); CREATININE 0.9 mg/dL (0.55-1.02); Calcium 8.7 mg/dL (8.5-10.1); Chloride 101 mmol/L (98-107); Estimated GFR 67.08 (mL/min/1.73m2); Glucose 157 mg/dL (74-106); Potassium 3.7 mmol/L (3.5-5.1); Sodium 137 mmol/L (136-145)
[2023-10-17] MEDS: PIPERACILLIN/TAZO 4.5 GM in Normal Saline 100 ML IVPB ×3 (02:03→18:07)
[2023-10-17 02:23] LABS: BUN 17 mg/dL (7-18); Calcium 8.6 mg/dL (8.5-10.1); Chloride 103 mmol/L (98-107); Estimated GFR 59.12 (mL/min/1.73m2); Glucose 106 mg/dL (74-106); Sodium 139 mmol/L (136-145)
[2023-10-17] MEDS: Insulin Glargine 300 UNITS/3 ML PEN 20 UNITS SC (03:26)
[2023-10-17 04:26] LABS: Anion Gap 6.7 mmol/L (3-11); BUN 18 mg/dL (7-18); CO2 26.3 mmol/L (21.0-32.0); Calcium 8.3 mg/dL (8.5-10.1); Chloride 101 mmol/L (98-107); Estimated GFR 59.12 (mL/min/1.73m2); Glucose 182 mg/dL (74-106); Sodium 134 mmol/L (136-145)
[2023-10-17] MEDS: Normal Saline 10 ML VIAL IJ (06:02)
[2023-10-17 07:01] LABS: HCT 40.5 % (36.0-46.0); MCH 25.5 pg (27.0-33.0); MCHC 32.1 % (32.0-36.0); MCV 79 fL (80-95); MPV 9.5 fL (8.0-11.0); Platelet Count 276 10^3/uL (130-400); RDW 15.6 % (11.7-14.6); RDW-SD 45.1 fL; WBC 21.29 10^3/uL (4.4-10.8)
[2023-10-17 07:20] LABS: ALT 15 U/L (14-59); AST 15 U/L (15-37); Albumin 2.4 g/dL (3.4-5.0); Alkaline Phosphatase 66 U/L (46-116); Anion Gap 11.1 mmol/L (3-11); BUN 19 mg/dL (7-18); Bilirubin, Total 0.9 mg/dL (0.2-1.0); CO2 23.9 mmol/L (21.0-32.0); CREATININE 1.2 mg/dL (0.55-1.02); Calcium 8.3 mg/dL (8.5-10.1); Chloride 100 mmol/L (98-107); Glucose 260 mg/dL (74-106); Magnesium 1.6 mg/dL (1.8-2.4); PHOSPHORUS 2.7 mg/dL (2.6-4.7); Potassium 4.1 mmol/L (3.5-5.1); Sodium 135 mmol/L (136-145)
[2023-10-17 07:29] LABS: Absolute Lymphocyte Count 1.06 10^3/uL (1.2-3.4); Absolute Neutrophil Count 18.74 10^3/uL (1.2-6.7)
[2023-10-17 07:30] LABS: Absolute Monocyte Count 1.49 10^3/uL (0.1-0.8); Diff Comment Manual Differential; RBC Morphology Normal
[2023-10-17] MEDS: Atorvastatin 40 MG TAB PO (08:13)
[2023-10-17] MEDS: Gabapentin 300 MG CAP PO ×3 (08:13→20:27)
[2023-10-17] MEDS: Levothyroxine 150 MCG TAB PO (08:13)
[2023-10-17] MEDS: Docusate Sodium 100 MG CAP PO (08:13)
[2023-10-17] MEDS: Ferrous Sulfate 325 MG TAB PO (08:14)
[2023-10-17] MEDS: Normal Saline Flush 10 ML SYR IVP ×3 (08:14→20:39)
[2023-10-17] MEDS: Acetaminophen 500 MG TAB 1000 MG PO ×3 (08:14→20:27)
[2023-10-17] MEDS: Prochlorperazine 10 MG/2 ML VIAL 5 MG IVP (08:17)
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
[2023-10-17] MEDS: Insulin NPH-Human 300 UNITS/3 ML PEN 15 UNIT SC (09:24)
--- NOTE | 2023-10-17 09:42 | W.PM.PROGNOT ---
Date of Service Date of service: 10/17/23 Time of Service: 09:42 Assessment and Plan Assessment and plan (1) Diabetic foot infection: Status: Acute Assessment and plan: Day#2 Zosyn and vancomycin; podiatry consult pending, plain film xray of right foot did not show any osteomyelitis; consider MRI of right foot Professional time spent evaluating the patient, reviewing labs, examining her, discussion w/ nursing staff regarding plan of care, putting in orders and documentation was 50 minutes. (2) DKA (diabetic ketoacidoses): Status: Acute Assessment and plan: although she is off insulin drip and her AG closed overnight, her urine dipped + for moderate ketones, therefore she may need to go back on insulin drip. will repeat her BMP at 11 am (now currently 10:30), despite her glucose being high, nursing did not cover her glucose because patient was nauseated and apparently did vomit some undigested food. However, patient did get the NPH 15 units this morning that I ordered. Qualifiers: Diabetes mellitus type: type 2 Diabetes mellitus complication detail: without coma Qualified Code(s): E11.10 - Type 2 diabetes mellitus with ketoacidosis without coma (3) Poorly controlled type 2 diabetes mellitus with peripheral neuropathy: Status: Acute Assessment and plan: Last glycohemoglobin 11.4% as of 09/05/2023, patient needs to be on basal bolus insulin at home and more frequent monitoring and frequent follow-ups with her PCP as well as diabetic education. For now we will treat her DKA with IV insulin and IV fluids and once she is out of DKA and her anion gap is closed we will convert her to basal bolus insulin along with meal coverage. (4) DVT prophylaxis: Status: Acute Assessment and plan: Enoxaparin 40 mg subcutaneous daily Subjective Subjective Interval history since last seen: Nilam states that she does not feel well this morning. She just feels tired. Denies any CP or dyspnea. Overnight her anion gap closed and she was taken off her insulin drip and given her lantus about 2 a.m. Glucose this morning is running high at 292 however her BMP this morning demonstrated her AG slightly up at 11 and glucose 260. I have ordered additional NPH along w/ novolog (both sliding scale and CHO coverage for her meals). She was still on D51/2NS running this morning despite her being taken off her insulin drip. I have stopped her iv fluids, although I am concerned she is not eating much. She had some nausea this morning but kept down liquids. No vomiting. She has some epigastric abdominal wall tenderness related to her recent wretching she had prior to her admission and down in the E.D. I told her that we will get podiatry to look at her foot ulcer. Her MRSA screen was + therefore, she will remain on vancomycin along w/ zosyn for her DM foot ulcer. She can be moved out to the floor since she has been off her insulin drip, although I would like to repeat her BMP later this morning to be sure that her AG does not rise. Exam Narrative Exam Narrative: Yadi is sitting up in her chair, alert and oriented, no acute distress, just appears tired, she is watching TV although when I first went into the room, nutrition services was seeing her about her DM care Lungs: bibasilar rales, no rhonchi or wheezing. Heart: regular but tachycardic Abdomen: soft, tender over epigastrium, no rebound tenderness, normal bowel sounds (she has not had a BM since admission) Extremities: edematous 2+ bilateral, right heel ulcer w/ central area of eschar no pus, surrounding area is showing some desquamation Objective Last Vital Signs Temp 36.5 C 10/17/23 09:00 Pulse 108 H 10/17/23 09:00 Resp 28 H 10/17/23 07:01 BP 127/71 10/17/23 07:01 Pulse Ox 93 10/17/23 09:00 Laboratory Results - last 24 hr 10/16/23 10/16/23 10/16/23 12:45 12:45 13:38 WBC 20.81 H RBC 5.51 H Hgb 13.9 Hct 43.4 MCV 79 L MCH 25.2 L MCHC 32.0 RDW 15.4 H Plt Count 308 MPV 9.2 Immature Gran % 0.4 Neutrophils % 88.8 Lymphocytes % 3.3 Monocytes % 7.2 Eosinophils % 0.0 Basophils % 0.3 Nucleated RBC % 0.0 Absolute Neutrophils 18.48 H Absolute Lymphocytes 0.69 L Absolute Monocytes 1.50 H Absolute Eosinophils 0.00 Absolute Basophils 0.06 RBC Morphology ESR VBG pH 7.40 VBG pCO2 41 VBG pO2 39 VBG HCO3 25 VBG Total CO2 23 L VBG O2 Saturation 74 VBG Base Excess 1 VBG Lactate 2.1 H Sodium 133 L Potassium 4.1 Chloride 93 L Carbon Dioxide 24.7 Anion Gap 15.3 H BUN 11 Creatinine 1.0 Est GFR (CKD-EPI 2020) 59.12 Glucose 511 H* Calcium 9.1 Phosphorus Magnesium 1.3 L Total Bilirubin 0.9 AST 13 L ALT 21 Alkaline Phosphatase 84 Troponin I < 50 C-Reactive Protein 8.34 H NT-Pro-B Natriuret Pep 1063 H Cancelled Total Protein 8.4 H Albumin 3.2 L Procalcitonin 0.5 Urine Color Urine Clarity Urine pH Ur Specific [place] Urine Protein Urine Ketones Urine Blood Urine Nitrite Urine Bilirubin Urine Urobilinogen Ur Leukocyte Esterase Urine RBC Urine WBC Ur Epithelial Cells Urine Crystals Urine Bacteria Urine Casts Urine Mucus Ur Culture Indicated? Urine Glucose MRSA (TEM-PCR) Add-On Test Request 10/16/23 10/16/23 10/16/23 14:03 14:38 15:44 WBC RBC Hgb Hct MCV MCH MCHC RDW Plt Count MPV Immature Gran % Neutrophils % Lymphocytes % Monocytes % Eosinophils % Basophils % Nucleated RBC % Absolute Neutrophils Absolute Lymphocytes Absolute Monocytes Absolute Eosinophils Absolute Basophils RBC Morphology ESR 46 H VBG pH VBG pCO2 VBG pO2 VBG HCO3 VBG Total CO2 VBG O2 Saturation VBG Base Excess VBG Lactate Sodium 136 Potassium 4.1 Chloride 97 L Carbon Dioxide 29.6 Anion Gap 9.4 BUN 11 Creatinine 1.1 H Est GFR (CKD-EPI 2020) 52.73 Glucose 430 H Calcium 8.8 Phosphorus Magnesium Total Bilirubin AST ALT Alkaline Phosphatase Troponin I C-Reactive Protein NT-Pro-B Natriuret Pep Total Protein Albumin Procalcitonin Urine Color Yellow Urine Clarity Cloudy Urine pH 5.0 Ur Specific [place] 1.015 Urine Protein 100 H Urine Ketones 80 H Urine Blood Trace-lysed H Urine Nitrite Positive H Urine Bilirubin Negative Urine Urobilinogen 0.2 Ur Leukocyte Esterase Negative Urine RBC 0-2 Urine WBC 5-10 Ur Epithelial Cells Few Urine Crystals Negative Urine Bacteria Many Urine Casts Negative Urine Mucus Trace Ur Culture Indicated? Yes Urine Glucose >=1000 H MRSA (TEM-PCR) Add-On Test Request 10/16/23 10/16/23 10/16/23 16:14 18:08 18:25 WBC RBC Hgb Hct MCV MCH MCHC RDW Plt Count MPV Immature Gran % Neutrophils % Lymphocytes % Monocytes % Eosinophils % Basophils % Nucleated RBC % Absolute Neutrophils Absolute Lymphocytes Absolute Monocytes Absolute Eosinophils Absolute Basophils RBC Morphology ESR VBG pH VBG pCO2 VBG pO2 VBG HCO3 VBG Total CO2 VBG O2 Saturation VBG Base Excess VBG Lactate Sodium 136 Potassium 3.8 Chloride 97 L Carbon Dioxide 26.5 Anion Gap 12.5 H BUN 12 Creatinine 1.1 H Est GFR (CKD-EPI 2020) 52.73 Glucose 423 H Calcium 9.1 Phosphorus 3.1 Magnesium Total Bilirubin AST ALT Alkaline Phosphatase Troponin I C-Reactive Protein NT-Pro-B Natriuret Pep Total Protein Albumin Procalcitonin Urine Color Urine Clarity Urine pH Ur Specific [place] Urine Protein Urine Ketones Urine Blood Urine Nitrite Urine Bilirubin Urine Urobilinogen Ur Leukocyte Esterase Urine RBC Urine WBC Ur Epithelial Cells Urine Crystals Urine Bacteria Urine Casts Urine Mucus Ur Culture Indicated? Urine Glucose MRSA (TEM-PCR) Positive A Add-On Test Request [place] 10/16/23 10/16/23 10/17/23 20:07 22:03 00:00 WBC RBC Hgb Hct MCV MCH MCHC RDW Plt Count MPV Immature Gran % Neutrophils % Lymphocytes % Monocytes % Eosinophils % Basophils % Nucleated RBC % Absolute Neutrophils Absolute Lymphocytes Absolute Monocytes Absolute Eosinophils Absolute Basophils RBC Morphology ESR VBG pH VBG pCO2 VBG pO2 VBG HCO3 VBG Total CO2 VBG O2 Saturation VBG Base Excess VBG Lactate Sodium 137 138 137 Potassium 3.9 3.8 Chloride 98 101 Carbon Dioxide 27.7 27.4 Anion Gap 11.3 H 9.6 BUN 12 14 Creatinine 1.0 0.9 Est GFR (CKD-EPI 2020) 59.12 67.08 Glucose 347 H 231 H Calcium 9.0 8.8 Phosphorus Magnesium Total Bilirubin AST ALT Alkaline Phosphatase Troponin I C-Reactive Protein NT-Pro-B Natriuret Pep Total Protein Albumin Procalcitonin Urine Color Urine Clarity Urine pH Ur Specific [place] Urine Protein Urine Ketones Urine Blood Urine Nitrite Urine Bilirubin Urine Urobilinogen Ur Leukocyte Esterase Urine RBC Urine WBC Ur Epithelial Cells Urine Crystals Urine Bacteria Urine Casts Urine Mucus Ur Culture Indicated? Urine Glucose MRSA (TEM-PCR) Add-On Test Request 10/17/23 10/17/23 10/17/23 00:00 00:00 00:00 WBC RBC Hgb Hct MCV MCH MCHC RDW Plt Count MPV Immature Gran % Neutrophils % Lymphocytes % Monocytes % Eosinophils % Basophils % Nucleated RBC % Absolute Neutrophils Absolute Lymphocytes Absolute Monocytes Absolute Eosinophils Absolute Basophils RBC Morphology ESR VBG pH VBG pCO2 VBG pO2 VBG HCO3 VBG Total CO2 VBG O2 Saturation VBG Base Excess VBG Lactate Sodium Cancelled Potassium 3.7 Cancelled Chloride 101 Cancelled Carbon Dioxide 28.0 Anion Gap BUN Creatinine Est GFR (CKD-EPI 2020) Glucose Calcium Phosphorus Magnesium Total Bilirubin AST ALT Alkaline Phosphatase Troponin I C-Reactive Protein NT-Pro-B Natriuret Pep Total Protein Albumin Procalcitonin Urine Color Urine Clarity Urine pH Ur Specific [place] Urine Protein Urine Ketones Urine Blood Urine Nitrite Urine Bilirubin Urine Urobilinogen Ur Leukocyte Esterase Urine RBC Urine WBC Ur Epithelial Cells Urine Crystals Urine Bacteria Urine Casts Urine Mucus Ur Culture Indicated? Urine Glucose MRSA (TEM-PCR) Add-On Test Request 10/17/23 10/17/23 10/17/23 00:00 00:00 00:00 WBC RBC Hgb Hct MCV MCH MCHC RDW Plt Count MPV Immature Gran % Neutrophils % Lymphocytes % Monocytes % Eosinophils % Basophils % Nucleated RBC % Absolute Neutrophils Absolute Lymphocytes Absolute Monocytes Absolute Eosinophils Absolute Basophils RBC Morphology ESR VBG pH VBG pCO2 VBG pO2 VBG HCO3 VBG Total CO2 VBG O2 Saturation VBG Base Excess VBG Lactate Sodium Potassium Chloride Carbon Dioxide Cancelled Anion Gap 8.0 Cancelled BUN 15 Cancelled Creatinine 0.9 Est GFR (CKD-EPI 2020) Glucose Calcium Phosphorus Magnesium Total Bilirubin AST ALT Alkaline Phosphatase Troponin I C-Reactive Protein NT-Pro-B Natriuret Pep Total Protein Albumin Procalcitonin Urine Color Urine Clarity Urine pH Ur Specific [place] Urine Protein Urine Ketones Urine Blood Urine Nitrite Urine Bilirubin Urine Urobilinogen Ur Leukocyte Esterase Urine RBC Urine WBC Ur Epithelial Cells Urine Crystals Urine Bacteria Urine Casts Urine Mucus Ur Culture Indicated? Urine Glucose MRSA (TEM-PCR) Add-On Test Request 10/17/23 10/17/23 10/17/23 00:00 00:00 00:00 WBC RBC Hgb Hct MCV MCH MCHC RDW Plt Count MPV Immature Gran % Neutrophils % Lymphocytes % Monocytes % Eosinophils % Basophils % Nucleated RBC % Absolute Neutrophils Absolute Lymphocytes Absolute Monocytes Absolute Eosinophils Absolute Basophils RBC Morphology ESR VBG pH VBG pCO2 VBG pO2 VBG HCO3 VBG Total CO2 VBG O2 Saturation VBG Base Excess VBG Lactate Sodium Potassium Chloride Carbon Dioxide Anion Gap BUN Creatinine Cancelled Est GFR (CKD-EPI 2020) 67.08 Cancelled Glucose 157 H Cancelled Calcium 8.7 Phosphorus Magnesium Total Bilirubin AST ALT Alkaline Phosphatase Troponin I C-Reactive Protein NT-Pro-B Natriuret Pep Total Protein Albumin Procalcitonin Urine Color Urine Clarity Urine pH Ur Specific [place] Urine Protein Urine Ketones Urine Blood Urine Nitrite Urine Bilirubin Urine Urobilinogen Ur Leukocyte Esterase Urine RBC Urine WBC Ur Epithelial Cells Urine Crystals Urine Bacteria Urine Casts Urine Mucus Ur Culture Indicated? Urine Glucose MRSA (TEM-PCR) Add-On Test Request 10/17/23 10/17/23 10/17/23 00:00 01:42 02:00 WBC RBC Hgb Hct MCV MCH MCHC RDW Plt Count MPV Immature Gran % Neutrophils % Lymphocytes % Monocytes % Eosinophils % Basophils % Nucleated RBC % Absolute Neutrophils Absolute Lymphocytes Absolute Monocytes Absolute Eosinophils Absolute Basophils RBC Morphology ESR VBG pH VBG pCO2 VBG pO2 VBG HCO3 VBG Total CO2 VBG O2 Saturation VBG Base Excess VBG Lactate Sodium 139 Cancelled Potassium 4.0 Cancelled Chloride 103 Cancelled Carbon Dioxide 28.0 Cancelled Anion Gap 8.0 Cancelled BUN 17 Cancelled Creatinine 1.0 Cancelled Est GFR (CKD-EPI 2020) 59.12 Cancelled Glucose 106 Cancelled Calcium Cancelled 8.6 Cancelled Phosphorus Magnesium Total Bilirubin AST ALT Alkaline Phosphatase Troponin I C-Reactive Protein NT-Pro-B Natriuret Pep Total Protein Albumin Procalcitonin Urine Color Urine Clarity Urine pH Ur Specific [place] Urine Protein Urine Ketones Urine Blood Urine Nitrite Urine Bilirubin Urine Urobilinogen Ur Leukocyte Esterase Urine RBC Urine WBC Ur Epithelial Cells Urine Crystals Urine Bacteria Urine Casts Urine Mucus Ur Culture Indicated? Urine Glucose MRSA (TEM-PCR) Add-On Test Request 10/17/23 10/17/23 03:55 05:53 WBC 21.29 H RBC 5.10 Hgb 13.0 Hct 40.5 MCV 79 L MCH 25.5 L MCHC 32.1 RDW 15.6 H Plt Count 276 MPV 9.5 Immature Gran % 0.0 Neutrophils % 88.0 Lymphocytes % 5.0 Monocytes % 7.0 Eosinophils % 0.0 Basophils % 0.0 Nucleated RBC % 0.0 Absolute Neutrophils 18.74 H Absolute Lymphocytes 1.06 L Absolute Monocytes 1.49 H Absolute Eosinophils 0.00 Absolute Basophils 0.00 RBC Morphology Normal ESR VBG pH VBG pCO2 VBG pO2 VBG HCO3 VBG Total CO2 VBG O2 Saturation VBG Base Excess VBG Lactate Sodium 134 L 135 L Potassium 4.0 4.1 Chloride 101 100 Carbon Dioxide 26.3 23.9 Anion Gap 6.7 11.1 H BUN 18 19 H Creatinine 1.0 1.2 H Est GFR (CKD-EPI 2020) 59.12 47.50 Glucose 182 H 260 H Calcium 8.3 L 8.3 L Phosphorus 2.7 Magnesium 1.6 L Total Bilirubin 0.9 AST 15 ALT 15 Alkaline Phosphatase 66 Troponin I C-Reactive Protein NT-Pro-B Natriuret Pep Total Protein 7.0 Albumin 2.4 L Procalcitonin Urine Color Urine Clarity Urine pH Ur Specific [place] Urine Protein Urine Ketones Urine Blood Urine Nitrite Urine Bilirubin Urine Urobilinogen Ur Leukocyte Esterase Urine RBC Urine WBC Ur Epithelial Cells Urine Crystals Urine Bacteria Urine Casts Urine Mucus Ur Culture Indicated? Urine Glucose MRSA (TEM-PCR) Add-On Test Request Time Spent with Patient Time Spent with Patient: >50 minutes Time was spent: preparing to see the patient(eg.review tests), ordering medications,tests, procedures, referring, communicating with other health district manager primary care sales, indepentently interpreting results, counseling the patient and care coordination
[2023-10-17] MEDS: Insulin Aspart 300 UNITS/3 ML PEN SC ×9 (10:35→17:51)
[2023-10-17] MEDS: Furosemide 20 MG/2 ML VIAL IVP (10:43)
[2023-10-17 11:34] LABS: Anion Gap 11.8 mmol/L (3-11); BUN 22 mg/dL (7-18); CO2 24.2 mmol/L (21.0-32.0); CREATININE 1.6 mg/dL (0.55-1.02); Calcium 8.5 mg/dL (8.5-10.1); Chloride 97 mmol/L (98-107); Estimated GFR 33.63 (mL/min/1.73m2); Glucose 376 mg/dL (74-106); Potassium 4.4 mmol/L (3.5-5.1); Sodium 133 mmol/L (136-145)
--- NOTE | 2023-10-17 12:10 | W.INDIABCONS ---
Date of service: 10/17/23 Time of Service: 09:00 Diabetes Inpatient Consult Reason for Visit: Consult - diabetes education DESCRIPTION/ASSESSMENT: Visited with Nilam torres today, who was sitting in chair asleep, aroused, but faded in and out of conversation with limited focus. Home meds: metformin 500mg BID, 32 units total insulin Glargine. After presentation with DKA she was put on insulin drip which has since been d/c and she is now ordered for 10 units Glargine AM and 25 units HS with resistant sliding scale insulin aspart at meals for correction as well as 1u:10gcarb coverage for meals with her last glucose 204 at dinner this evening. She now lives with her grand daughter who works nights and sleeps all day. Her Gdtr's will prepare more dinners for Nilam (Pizza given as an example). She tends to have inconsistent meals during the day-will graze and have items like canned pasta meals and soups. Often skips breakfast. Reviewed part of a handout to go over importance of consistent meals and keeping her carbs to about 10 per day (150grams). I left the handout for her and asked about her reading - says has some trouble seeing as she is need of new glasses. Asked her to share with grand daughter and her and my card was attached for outpatient support in meal planning for diabetes. Nilam eventually nodded off and it seemed futile to continue to try and arouse her. Would suspect that combination of high processed carb, high added sugar intake with possible inconsistent insulin administration contributed to her significant hyperglycemia. INTERVENTION: will trial carb control Boost ONS at lunch daily for nutrition support and supplemental protein. Will see if I can visit again once she is a little more alert or when she has family visit to reinforce education PLAN: Will monitor labs/glucose, po intake, and attempt more education prior to discharge Time Spent in Nutritional Counseling and Treatment: 15 minutes
--- NOTE | 2023-10-17 12:44 | W.PODCONSULT ---
Date of service: 10/17/23 Time of Service: 12:00 Assessment and Plan Assessment and plan (1) Unstageable pressure ulcer of right heel: Status: Acute (2) Diabetic foot infection: Status: Acute (3) DKA (diabetic ketoacidoses): Status: Acute Qualifiers: Diabetes mellitus complication detail: without coma Diabetes mellitus type: type 2 Qualified Code(s): E11.10 - Type 2 diabetes mellitus with ketoacidosis without coma (4) Poorly controlled type 2 diabetes mellitus with peripheral neuropathy: Status: Acute (5) DVT prophylaxis: Status: Acute Assessment and plan: Patient is seen and evaluated bedside today. Her white count was noted to be elevated. X-rays were reviewed no evidence for soft tissue gas or osteomyelitis noted at this time. However there is some odor from the wound concerning for infection there is also tenderness to palpation concerning for deeper abscess. I recommended and ordered an MRI. Will await results. Will likely not be able to get an MRI with contrast due to kidney function. I recommended and debrided the necrotic nonviable tissue with sterile #15 blade bedside. All necrotic nonviable tissue was excisionally debrided. Dressings were applied with 4 x 4, Kerlix, Alok wrap. Unstageable at this time. Does appear ischemic. Cultures were taken and sent. Will await MRI results. Will continue to follow History of Present Illness Narrative: This 73-year-old female with history of type 2 diabetes mellitus requiring insulin as well as metformin, hyperlipidemia, previous CVA presented to the emergency department because of nausea and vomiting and uncontrolled blood sugars. She also has noticed that she has an ulcer on her left heel which started a long time ago with a blister from wearing tight shoes. Evaluation at emergency department demonstrated left heel ulcer with eschar but x-ray imaging of her left foot showed prominent soft tissue swelling around the ankle and foot but no gas in the left foot tissues. No evidence of osteomyelitis. Laboratory studies were remarkable for a white count of 20,800 chemistry panel showed elevated glucose of 511 with an elevated anion gap of 15.3 and urine was remarkable for 80 mg/dL ketones along with positive nitrites many bacteria and glycosuria of greater than 1000 mg/dL. Other imaging included a chest x-ray which showed no acute abnormalities. Patient was started on IV antibiotics for diabetic foot ulcer and she was treated with Zosyn and subsequently has been ordered vancomycin as well. She was given 10 units of NovoLog which brought her glucose down to 489. At that point was decided to start her on insulin drip and admit her to the intensive care unit for treatment of DKA and diabetic foot ulcer and sepsis secondary to her diabetic foot wound. She has not had any treatment for the right heel ulceration previously. Reports bilat leg swelling. Review of Systems Cardiovascular Comments: edema bilateral lower extremity Integumentary/Breasts Comments: Right heel ulcer PFSH All Active Problems (Updated 10/17/23 @ 14:12 by Christine Castellano DPM) Unstageable pressure ulcer of right heel (Acute) DVT prophylaxis (Acute) Poorly controlled type 2 diabetes mellitus with peripheral neuropathy (Acute) DKA (diabetic ketoacidoses) (Acute) Diabetic foot infection (Acute) Low serum iron (Acute) Lumbar back pain with radiculopathy affecting right lower extremity (Acute) Ambulatory dysfunction (Acute) Weakness (Acute) Hyperglycemia due to type 2 diabetes mellitus (Acute) Medical History Palliative care patient Physician orders for life-sustaining treatment (POLST) form indicates patient wish for [id number] status ACP (advance care planning) Urinary tract infection Stroke Diabetes CHF (congestive heart failure) Surgical History History of ERCP S/P tonsillectomy Social History Smoking/Tobacco Use Status: Never Smoking risk assessment performed?: Yes Alcohol Intake: never Drug use: Never Substance use type: does not use Housing: apartment What is your relationship status?: Panel score (0-1 are the most socially isolated patients): 0 Exam Extrem Other: Bilateral lower extremity physical exam: Derm: Unstageable ulcers x 2 noted to the right heel medially with DINESH ulcerative desquamation some malodor noted from this area, no erythema no fluctuance no bogginess noted. Skin is otherwise warm dry and supple lesions or other ulceration. Nails x 10 thickened elongated debris. Malodor noted. No probe to bone, no tunneling and no undermining. Vascular: DP PT pulses are palpable bilateral lower extremity. Hair growth absent. Skin is thin and shiny bilaterally. There is edema noted bilaterally. MSK: Muscle strength noted to be intact. Tenderness to palpation noted to the right heel medially. Results Last Vital Signs Temp 97.7 F 10/17/23 09:00 Pulse 108 H 10/17/23 09:00 Resp 28 H 10/17/23 07:01 BP 127/71 10/17/23 07:01 Pulse Ox 93 10/17/23 09:00 Labs 10/17/23 05:53 10/17/23 11:10 Labs: Laboratory Results - last 24 hr 10/16/23 10/16/23 10/16/23 12:45 12:45 13:38 WBC 20.81 H RBC 5.51 H Hgb 13.9 Hct 43.4 MCV 79 L MCH 25.2 L MCHC 32.0 RDW 15.4 H Plt Count 308 MPV 9.2 Immature Gran % 0.4 Neutrophils % 88.8 Lymphocytes % 3.3 Monocytes % 7.2 Eosinophils % 0.0 Basophils % 0.3 Nucleated RBC % 0.0 Absolute Neutrophils 18.48 H Absolute Lymphocytes 0.69 L Absolute Monocytes 1.50 H Absolute Eosinophils 0.00 Absolute Basophils 0.06 RBC Morphology ESR VBG pH 7.40 VBG pCO2 41 VBG pO2 39 VBG HCO3 25 VBG Total CO2 23 L VBG O2 Saturation 74 VBG Base Excess 1 VBG Lactate 2.1 H Sodium 133 L Potassium 4.1 Chloride 93 L Carbon Dioxide 24.7 Anion Gap 15.3 H BUN 11 Creatinine 1.0 Est GFR (CKD-EPI 2020) 59.12 Glucose 511 H* Calcium 9.1 Phosphorus Magnesium 1.3 L Total Bilirubin 0.9 AST 13 L ALT 21 Alkaline Phosphatase 84 Troponin I < 50 C-Reactive Protein 8.34 H NT-Pro-B Natriuret Pep 1063 H Cancelled Total Protein 8.4 H Albumin 3.2 L Procalcitonin 0.5 Urine Color Urine Clarity Urine pH Ur Specific [place] Urine Protein Urine Ketones Urine Blood Urine Nitrite Urine Bilirubin Urine Urobilinogen Ur Leukocyte Esterase Urine RBC Urine WBC Ur Epithelial Cells Urine Crystals Urine Bacteria Urine Casts Urine Mucus Ur Culture Indicated? Urine Glucose MRSA (TEM-PCR) Add-On Test Request 10/16/23 10/16/23 10/16/23 14:03 14:38 15:44 WBC RBC Hgb Hct MCV MCH MCHC RDW Plt Count MPV Immature Gran % Neutrophils % Lymphocytes % Monocytes % Eosinophils % Basophils % Nucleated RBC % Absolute Neutrophils Absolute Lymphocytes Absolute Monocytes Absolute Eosinophils Absolute Basophils RBC Morphology ESR 46 H VBG pH VBG pCO2 VBG pO2 VBG HCO3 VBG Total CO2 VBG O2 Saturation VBG Base Excess VBG Lactate Sodium 136 Potassium 4.1 Chloride 97 L Carbon Dioxide 29.6 Anion Gap 9.4 BUN 11 Creatinine 1.1 H Est GFR (CKD-EPI 2020) 52.73 Glucose 430 H Calcium 8.8 Phosphorus Magnesium Total Bilirubin AST ALT Alkaline Phosphatase Troponin I C-Reactive Protein NT-Pro-B Natriuret Pep Total Protein Albumin Procalcitonin Urine Color Yellow Urine Clarity Cloudy Urine pH 5.0 Ur Specific [place] 1.015 Urine Protein 100 H Urine Ketones 80 H Urine Blood Trace-lysed H Urine Nitrite Positive H Urine Bilirubin Negative Urine Urobilinogen 0.2 Ur Leukocyte Esterase Negative Urine RBC 0-2 Urine WBC 5-10 Ur Epithelial Cells Few Urine Crystals Negative Urine Bacteria Many Urine Casts Negative Urine Mucus Trace Ur Culture Indicated? Yes Urine Glucose >=1000 H MRSA (TEM-PCR) Add-On Test Request 10/16/23 10/16/23 10/16/23 16:14 18:08 18:25 WBC RBC Hgb Hct MCV MCH MCHC RDW Plt Count MPV Immature Gran % Neutrophils % Lymphocytes % Monocytes % Eosinophils % Basophils % Nucleated RBC % Absolute Neutrophils Absolute Lymphocytes Absolute Monocytes Absolute Eosinophils Absolute Basophils RBC Morphology ESR VBG pH VBG pCO2 VBG pO2 VBG HCO3 VBG Total CO2 VBG O2 Saturation VBG Base Excess VBG Lactate Sodium 136 Potassium 3.8 Chloride 97 L Carbon Dioxide 26.5 Anion Gap 12.5 H BUN 12 Creatinine 1.1 H Est GFR (CKD-EPI 2020) 52.73 Glucose 423 H Calcium 9.1 Phosphorus 3.1 Magnesium Total Bilirubin AST ALT Alkaline Phosphatase Troponin I C-Reactive Protein NT-Pro-B Natriuret Pep Total Protein Albumin Procalcitonin Urine Color Urine Clarity Urine pH Ur Specific [place] Urine Protein Urine Ketones Urine Blood Urine Nitrite Urine Bilirubin Urine Urobilinogen Ur Leukocyte Esterase Urine RBC Urine WBC Ur Epithelial Cells Urine Crystals Urine Bacteria Urine Casts Urine Mucus Ur Culture Indicated? Urine Glucose MRSA (TEM-PCR) Positive A Add-On Test Request TNP 10/16/23 10/16/23 10/17/23 20:07 22:03 00:00 WBC RBC Hgb Hct MCV MCH MCHC RDW Plt Count MPV Immature Gran % Neutrophils % Lymphocytes % Monocytes % Eosinophils % Basophils % Nucleated RBC % Absolute Neutrophils Absolute Lymphocytes Absolute Monocytes Absolute Eosinophils Absolute Basophils RBC Morphology ESR VBG pH VBG pCO2 VBG pO2 VBG HCO3 VBG Total CO2 VBG O2 Saturation VBG Base Excess VBG Lactate Sodium 137 138 137 Potassium 3.9 3.8 Chloride 98 101 Carbon Dioxide 27.7 27.4 Anion Gap 11.3 H 9.6 BUN 12 14 Creatinine 1.0 0.9 Est GFR (CKD-EPI 202) 59.12 67.08 Glucose 347 H 231 H Calcium 9.0 8.8 Phosphorus Magnesium Total Bilirubin AST ALT Alkaline Phosphatase Troponin I C-Reactive Protein NT-Pro-B Natriuret Pep Total Protein Albumin Procalcitonin Urine Color Urine Clarity Urine pH Ur Specific [place] Urine Protein Urine Ketones Urine Blood Urine Nitrite Urine Bilirubin Urine Urobilinogen Ur Leukocyte Esterase Urine RBC Urine WBC Ur Epithelial Cells Urine Crystals Urine Bacteria Urine Casts Urine Mucus Ur Culture Indicated? Urine Glucose MRSA (TEM-PCR) Add-On Test Request 10/17/23 10/17/23 10/17/23 00:00 00:00 00:00 WBC RBC Hgb Hct MCV MCH MCHC RDW Plt Count MPV Immature Gran % Neutrophils % Lymphocytes % Monocytes % Eosinophils % Basophils % Nucleated RBC % Absolute Neutrophils Absolute Lymphocytes Absolute Monocytes Absolute Eosinophils Absolute Basophils RBC Morphology ESR VBG pH VBG pCO2 VBG pO2 VBG HCO3 VBG Total CO2 VBG O2 Saturation VBG Base Excess VBG Lactate Sodium Cancelled Potassium 3.7 Cancelled Chloride 101 Cancelled Carbon Dioxide 28.0 Anion Gap BUN Creatinine Est GFR (CKD-EPI 2020) Glucose Calcium Phosphorus Magnesium Total Bilirubin AST ALT Alkaline Phosphatase Troponin I C-Reactive Protein NT-Pro-B Natriuret Pep Total Protein Albumin Procalcitonin Urine Color Urine Clarity Urine pH Ur Specific [place] Urine Protein Urine Ketones Urine Blood Urine Nitrite Urine Bilirubin Urine Urobilinogen Ur Leukocyte Esterase Urine RBC Urine WBC Ur Epithelial Cells Urine Crystals Urine Bacteria Urine Casts Urine Mucus Ur Culture Indicated? Urine Glucose MRSA (TEM-PCR) Add-On Test Request 10/17/23 10/17/23 10/17/23 00:00 00:00 00:00 WBC RBC Hgb Hct MCV MCH MCHC RDW Plt Count MPV Immature Gran % Neutrophils % Lymphocytes % Monocytes % Eosinophils % Basophils % Nucleated RBC % Absolute Neutrophils Absolute Lymphocytes Absolute Monocytes Absolute Eosinophils Absolute Basophils RBC Morphology ESR VBG pH VBG pCO2 VBG pO2 VBG HCO3 VBG Total CO2 VBG O2 Saturation VBG Base Excess VBG Lactate Sodium Potassium Chloride Carbon Dioxide Cancelled Anion Gap 8.0 Cancelled BUN 15 Cancelled Creatinine 0.9 Est GFR (CKD-EPI 2020) Glucose Calcium Phosphorus Magnesium Total Bilirubin AST ALT Alkaline Phosphatase Troponin I C-Reactive Protein NT-Pro-B Natriuret Pep Total Protein Albumin Procalcitonin Urine Color Urine Clarity Urine pH Ur Specific [place] Urine Protein Urine Ketones Urine Blood Urine Nitrite Urine Bilirubin Urine Urobilinogen Ur Leukocyte Esterase Urine RBC Urine WBC Ur Epithelial Cells Urine Crystals Urine Bacteria Urine Casts Urine Mucus Ur Culture Indicated? Urine Glucose MRSA (TEM-PCR) Add-On Test Request 10/17/23 10/17/23 10/17/23 00:00 00:00 00:00 WBC RBC Hgb Hct MCV MCH MCHC RDW Plt Count MPV Immature Gran % Neutrophils % Lymphocytes % Monocytes % Eosinophils % Basophils % Nucleated RBC % Absolute Neutrophils Absolute Lymphocytes Absolute Monocytes Absolute Eosinophils Absolute Basophils RBC Morphology ESR VBG pH VBG pCO2 VBG pO2 VBG HCO3 VBG Total CO2 VBG O2 Saturation VBG Base Excess VBG Lactate Sodium Potassium Chloride Carbon Dioxide Anion Gap BUN Creatinine Cancelled Est GFR (CKD-EPI 2020) 67.08 Cancelled Glucose 157 H Cancelled Calcium 8.7 Phosphorus Magnesium Total Bilirubin AST ALT Alkaline Phosphatase Troponin I C-Reactive Protein NT-Pro-B Natriuret Pep Total Protein Albumin Procalcitonin Urine Color Urine Clarity Urine pH Ur Specific [place] Urine Protein Urine Ketones Urine Blood Urine Nitrite Urine Bilirubin Urine Urobilinogen Ur Leukocyte Esterase Urine RBC Urine WBC Ur Epithelial Cells Urine Crystals Urine Bacteria Urine Casts Urine Mucus Ur Culture Indicated? Urine Glucose MRSA (TEM-PCR) Add-On Test Request 10/17/23 10/17/23 10/17/23 00:00 01:42 02:00 WBC RBC Hgb Hct MCV MCH MCHC RDW Plt Count MPV Immature Gran % Neutrophils % Lymphocytes % Monocytes % Eosinophils % Basophils % Nucleated RBC % Absolute Neutrophils Absolute Lymphocytes Absolute Monocytes Absolute Eosinophils Absolute Basophils RBC Morphology ESR VBG pH VBG pCO2 VBG pO2 VBG HCO3 VBG Total CO2 VBG O2 Saturation VBG Base Excess VBG Lactate Sodium 139 Cancelled Potassium 4.0 Cancelled Chloride 103 Cancelled Carbon Dioxide 28.0 Cancelled Anion Gap 8.0 Cancelled BUN 17 Cancelled Creatinine 1.0 Cancelled Est GFR (CKD-EPI 2020) 59.12 Cancelled Glucose 106 Cancelled Calcium Cancelled 8.6 Cancelled Phosphorus Magnesium Total Bilirubin AST ALT Alkaline Phosphatase Troponin I C-Reactive Protein NT-Pro-B Natriuret Pep Total Protein Albumin Procalcitonin Urine Color Urine Clarity Urine pH Ur Specific [place] Urine Protein Urine Ketones Urine Blood Urine Nitrite Urine Bilirubin Urine Urobilinogen Ur Leukocyte Esterase Urine RBC Urine WBC Ur Epithelial Cells Urine Crystals Urine Bacteria Urine Casts Urine Mucus Ur Culture Indicated? Urine Glucose MRSA (TEM-PCR) Add-On Test Request 10/17/23 10/17/23 10/17/23 03:55 05:53 11:10 WBC 21.29 H RBC 5.10 Hgb 13.0 Hct 40.5 MCV 79 L MCH 25.5 L MCHC 32.1 RDW 15.6 H Plt Count 276 MPV 9.5 Immature Gran % 0.0 Neutrophils % 88.0 Lymphocytes % 5.0 Monocytes % 7.0 Eosinophils % 0.0 Basophils % 0.0 Nucleated RBC % 0.0 Absolute Neutrophils 18.74 H Absolute Lymphocytes 1.06 L Absolute Monocytes 1.49 H Absolute Eosinophils 0.00 Absolute Basophils 0.00 RBC Morphology Normal ESR VBG pH VBG pCO2 VBG pO2 VBG HCO3 VBG Total CO2 VBG O2 Saturation VBG Base Excess VBG Lactate Sodium 134 L 135 L 133 L Potassium 4.0 4.1 4.4 Chloride 101 100 97 L Carbon Dioxide 26.3 23.9 24.2 Anion Gap 6.7 11.1 H 11.8 H BUN 18 19 H 22 H Creatinine 1.0 1.2 H 1.6 H Est GFR (CKD-EPI 2020) 59.12 47.50 33.63 Glucose 182 H 260 H 376 H Calcium 8.3 L 8.3 L 8.5 Phosphorus 2.7 Magnesium 1.6 L Total Bilirubin 0.9 AST 15 ALT 15 Alkaline Phosphatase 66 Troponin I C-Reactive Protein NT-Pro-B Natriuret Pep Total Protein 7.0 Albumin 2.4 L Procalcitonin Urine Color Urine Clarity Urine pH Ur Specific [place] Urine Protein Urine Ketones Urine Blood Urine Nitrite Urine Bilirubin Urine Urobilinogen Ur Leukocyte Esterase Urine RBC Urine WBC Ur Epithelial Cells Urine Crystals Urine Bacteria Urine Casts Urine Mucus Ur Culture Indicated? Urine Glucose MRSA (TEM-PCR) Add-On Test Request Imaging Imaging Studies: Patient Name: Nilam yDer Unit #: [id number] Loc: ER Ordering Provider: Faiza Samuel M.D. Status: REG ER Primary Care Provider: Unknown,Unknown Date of Exam: 10/16/23 Sex: F Admission Date: 10/16/23 : 1950 Age: 73 Exam(s) XR FOOT RT COMPLETE EXAM: XR FOOT RT COMPLETE CLINICAL HISTORY: FOOT WOUND. TECHNIQUE: 2D digital imaging was performed. COMPARISON: No exams were available for comparison FINDINGS: 3 views There is prominent soft tissue swelling of the dorsal aspect of the foot and ankle. No gas in the soft tissues. No radiopaque foreign body evident. No evidence of fracture or diastasis of the Lisfranc joint. Advanced degenerative changes are noted in the great toe metatarsophalangeal joint. IMPRESSION: Prominent soft tissue swelling around the ankle and foot. No gas in the soft tissues. No radiopaque foreign body. No evidence of osteomyelitis. Advanced degenerative changes evident in the great toe metatarsophalangeal joint.
[2023-10-17] MEDS: MAGNESIUM SULFATE 2 GM/50 ML BAG IVINF (12:58)
[2023-10-17 15:11] LABS: BUN 23 mg/dL (7-18); CREATININE 1.7 mg/dL (0.55-1.02); Calcium 8.3 mg/dL (8.5-10.1); Chloride 99 mmol/L (98-107); Estimated GFR 31.27 (mL/min/1.73m2); Glucose 281 mg/dL (74-106); Sodium 133 mmol/L (136-145)
[2023-10-17 16:43] LABS: Osmolality, Urine 606 mOsm/kg (150-1150)
[2023-10-17 17:01] LABS: Osmolality Serum 303 mOsm/kg (275-295)
[2023-10-17] MEDS: Enoxaparin 40 MG/0.4 ML SYR SC (18:07)
[2023-10-17] MEDS: Insulin Glargine 300 UNITS/3 ML PEN 25 UNITS SC (20:28)
[2023-10-17] MEDS: VANCOMYCIN/WATER (PEG) 1 GM/200 ML BAG IV (20:41)
[2023-10-18] VITALS (13 sets, daily range): BP systolic 107–132; BP diastolic 54–70; PULSE 88–98; RESP 18–29; TEMP 36.2–36.6; O2SAT 91–95
--- NOTE | 2023-10-18 | DI.US_ITS ---
APPROVED REPORT EXAM: Comprehensive 2D, Doppler, and color-flow Echocardiogram Patient Location: In-Patient Room/Bed: [id number] [employer]: Kathryn Mancia RDCS (AE) Indications: Evaluate LV and RV function Other Information Study Quality: Fair. Technically limited study due to body habitus, inability to position patient exa m done supine bedside ICU. Conclusion Mild concentric left ventricular hypertrophy. Ejection fraction is 50%. Septal motion is somewhat p aradoxic Normal right ventricular size and function Both atria are normal in size Mild mitral annular calcification Estimated right ventricular systolic pressure is 34 mmHg Dilated ascending aorta 4.21 cm Wall motion Left Ventricle The left ventricle is normal size. Left ventricular systolic function is borderline. Mild concentri c left ventricular hypertrophy. Septal motion is somewhat paradoxic There is no ventricular septal de fect visualized. LVEF is 50%. Right Ventricle The right ventricle is normal size. The right ventricular systolic function is normal. Atria The left atrium size is normal. The right atrium size is normal. The interatrial septum is intact wit h no evidence for an atrial septal defect. Aortic Valve The aortic valve is normal in structure. Aortic valve is trileaflet. There is no aortic valvular sten osis. No aortic regurgitation is present. Mitral Valve Mild mitral annular calcification. No evidence of mitral valve stenosis. Trace to mild mitral regurg itation. Tricuspid Valve The tricuspid valve is normal in structure. There is no tricuspid valve stenosis. Trace tricuspid reg urgitation. The RVSP is 34.1mmHg. Pulmonic Valve The pulmonary valve is normal in structure. There is no pulmonic valvular stenosis. Trace pulmonic re gurgitation. Great Vessels The aortic root is normal in size. The ascending aorta is moderately dilated. Aortic arch is not well visualized. The IVC collapses <50% with inspiration. Pericardium There is no pericardial effusion. 2D Dimensions IVSD d PLAX 1.20 cm F: 0.6-1.0 Ao Root d 3.17 cm F: 2.7 - 3.3 LVPW d PLAX 1.23 cm F: 0.6 - 1.0 Ao Asc Diam d 4.21 cm F: 2.3 - 3.1 LVID d PLAX 4.60 cm F: 3.8 - 5.2 LVDs 3.55 cm F: 2.2 - 3.5 LV EF Teichholz 45.8 % FS 22.75 % LV EDV (Teich) 97.2 mL LV ESV (Teich) 52.7 mL Auto EF LV EDV A4C 132.6 mL LV EDV A2C 151.5 mL LV EDV BP 143.7 mL LV ESV A4C 70.1 mL LV ESV A2C 77.2 mL LV ESV BP 73.0 mL LVEF(%) A4C 47.1 % LVEF(%) A2C 49.1 % LVEF(%) BP 49.2 % LV SV A4C 62.5 ml LV SV A2C 74.3 ml LV SV BP 70.7 ml LV CO A4C 5.6 L/min LV CO A2C 6.7 L/min LV CO BP 6.2 L/min HR A4C 90.41 BPM HR A2C 90.45 BPM LV EDV Index (BP) LA Volume LA Length A4C 4.3 cm LA Length A2C 5.2 cm LA Area A4C s 17.48 cm2 LA Area A2C s 18.45 cm2 LA Vol A4C A-L 59.90 mL LA Vol A2C A-L 55.95 mL LA Vol Biplane A-L 63.2 mL LA Vol/BSA A4C A-L LA Vol/BSA A2C A-L LA Vol/BSA BP A-L 30.2 mL/m2 LA Vol A4C MOD 56.6 mL LA Vol A2C MOD 53.9 mL LA Vol BP MOD 59.6 mL RA Volume RA Area A4C 10.5 cm2 RA ESV A4C (A-L) 21.4mL RA Vol/BSA A4C A-L RA Length A4C 4.4 cm RA ESV A4C (MOD) 20.2mL LV Diastology MV E' medial 0.055 (>0.07 m/s) MV E Vmax 0.90 (0.4-1.3 m/s) MV E/E' MED 16.32 (<14) MV A Vmax 1.10 (0.4-1.3 m/s) MV E' lateral 0.061 (>0.1 m/s) E/A Ratio 0.8 MV E/E' LAT 14.75 (<14) MV E' Average 0.058 m/s MV E/E'(average) 15.49 Aortic Valve AoV Vmax 1.66 m/s LVOT Vmax 1.18 m/s AoV Peak Grad 11.1 mmHg LVOT Peak Grad 5.5 mmHg AoV Area (Vmax) 2.16 cm2 LVOT VTI 0.223 m AoV VTI 0.305 m LVOT Mean Grad 3.4 mmHg AoV Mean José Miguel. 1.16 m/s LVOT SV 68.04 mL AoV Mean Grad 6.1 mmHg LVOT Diam s 1.95 cm AoV Area (VTI) 2.23 cm2 Velocity Ratio 0.71 Mitral Valve MV DT 162 (160-240 msec) MV Vmax TIPS 1.29 m/s MV Mean Grad 2.8 (<2mmHg) MV VTI 0.322 m Pulmonary Valve PV Vmax 1.04 (0.5-1.5 m/s) RVOT Vmax 0.77 m/s PV Peak Grad 4.3 mmHg RVOT Peak Gr. 2.4 mmHg PV Mean José Miguel 0.65 m/s RVOT VTI 0.161 m PV Mean Grad 2.0 mmHg RVOT Mean Gr. 1.4 mmHg Tricuspid Valve RA Pressure 8.00 mmHg TR Vmax 2.55 m/s TV S' 0.16 m/s TR Peak Grad 26.0 mmHg RVSP (TR) 34.1 mmHg
--- NOTE | 2023-10-18 | DI.RAD_ITS ---
Exam(s) XR PORTABLE CHEST AP EXAM: XR PORTABLE CHEST AP CLINICAL HISTORY: hypoxemia, dyspnea TECHNIQUE: 2D digital imaging was performed. COMPARISON: CR,XR XR PORTABLE CHEST AP from 10/16/2023 FINDINGS: Exam is limited by under penetration and overlying monitoring leads. LUNGS: There is a small left pleural effusion. Left lung base is not well evaluated due to obscurati on of the lungs by the cardiac silhouette as well as by the effusion. The right lung appears clear. HEART: Mildly enlarged. AORTA: Normal diameter. BONES: Spine obscured. Soft tissues: Unremarkable. IMPRESSION: Left pleural effusion. Left lower lobe infiltrate not excluded. DATA REPOSITORY: RADIATION DOSE DELIVERED:
[2023-10-18] MEDS: PIPERACILLIN/TAZO 4.5 GM in Normal Saline 100 ML IVPB (02:33)
[2023-10-18] MEDS: Levothyroxine 150 MCG TAB PO (06:20)
[2023-10-18] MEDS: Normal Saline Flush 10 ML SYR IVP ×4 (06:21→21:09)
[2023-10-18 06:33] LABS: HCT 33.4 % (36.0-46.0); HGB 10.5 g/dL (11.2-15.7); MCH 25.3 pg (27.0-33.0); MCHC 31.4 % (32.0-36.0); MCV 81 fL (80-95); Platelet Count 248 10^3/uL (130-400); RBC 4.15 10^6/uL (3.93-5.22); RDW 15.9 % (11.7-14.6); RDW-SD 46.5 fL; WBC 20.59 10^3/uL (4.4-10.8)
[2023-10-18 07:03] LABS: Anion Gap 8.4 mmol/L (3-11); BUN 29 mg/dL (7-18); CO2 27.6 mmol/L (21.0-32.0); CREATININE 1.7 mg/dL (0.55-1.02); Calcium 8.3 mg/dL (8.5-10.1); Chloride 99 mmol/L (98-107); Estimated GFR 31.27 (mL/min/1.73m2); Glucose 123 mg/dL (74-106); Magnesium 2.1 mg/dL (1.8-2.4); Potassium 3.6 mmol/L (3.5-5.1); Sodium 135 mmol/L (136-145)
[2023-10-18 07:14] LABS: Absolute Eosinophil Count 0.62 10^3/uL (0.0-0.7); Absolute Lymphocyte Count 1.85 10^3/uL (1.2-3.4); Absolute Monocyte Count 0.82 10^3/uL (0.1-0.8); Bands % 6; Diff Comment Manual Differential; RBC Morphology Normal
[2023-10-18 07:20] LABS: C-Reactive Protein > 25.00 mg/dL (<or=0.5)
--- NOTE | 2023-10-18 07:43 | PDOC.CMPRO ---
Date of service: 10/18/23 Time of Service: 07:43 Care Management Progress Note Progress Note Text Progress Note Text: S/O: Remains in ICU at this time now on Med/Surg status. Podiatry closely following, elevated WBC attributed to UTI, possible pneumonia per MD. IV ABX changed; MRSA positive. Plan for continued antibiotics and local debridement as Nilam is not a candidate for anethesia at this time. CM following. A: 73 year old admitted to [facility] 10/16/23 for Sepsis, diabetic foot infection, DKA P: Nilam transferred to Med/Surg floor, remains inpatient at this time. CM following. SDOH(Care Management) Screening Will the Patient Participate in the Screening?: Unable to obtain
[2023-10-18] MEDS: Acetaminophen 500 MG TAB 1000 MG PO ×3 (07:54→21:10)
[2023-10-18] MEDS: Gabapentin 300 MG CAP PO ×3 (07:55→21:10)
[2023-10-18] MEDS: Atorvastatin 40 MG TAB PO (07:55)
[2023-10-18] MEDS: Pantoprazole 40 MG TABCR PO (07:55)
[2023-10-18] MEDS: Docusate Sodium 100 MG CAP PO (07:55)
[2023-10-18] MEDS: Ferrous Sulfate 325 MG TAB PO (07:55)
[2023-10-18] MEDS: IMIPENEM/CILASTATIN 500 MG in Normal Saline 100 ML 200 MG IVPB ×2 (08:02→17:03)
--- NOTE | 2023-10-18 08:20 | PGE_ITS ---
Date of Service Date of service: 10/18/23 Time of Service: 08:20 Assessment and Plan Assessment and plan (1) Diabetic foot infection: Status: Acute Assessment and plan: Day#3 Zosyn and vancomycin; MRI did not show any abscess or any osteomyelitis While there is infection of the skin, she does not have any deep abscess that requires any operation to debride. I saw the patient w/ Dr. Castellano and we discussed management of her diabetic foot wound. I think most of Nilam's infectious process is from her UTI (GNR, ID and sensitivity pending), and possible pneumonia. I agree w/ Dr. Castellano that just local debridement along w/ chemical debridement should suffice for now and since patient respiratory status is tenous, she would not be good surgical candidate. Once she is over her UTI and her respiratory status has improved, if she were to need an operation for debridement of her foot, then we could re-explore that approach. 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 (2) DKA (diabetic ketoacidoses): Status: Resolved Assessment and plan: resolved. glucose much improved w/ more aggressive basal/bolus management. Glucose this morning 123 and highest last night of 204. currently on novolog resistant scale during the day for elevated glucose and insulin senstive for at bedtime, she also is on basal insulin Lantus 25 units at HS and 10 units qam. She also is getting Novolog coverage for CHO intake (1:10) Qualifiers: Diabetes mellitus complication detail: without coma Diabetes mellitus type: type 2 Qualified Code(s): E11.10 - Type 2 diabetes mellitus with ketoacidosis without coma (3) Poorly controlled type 2 diabetes mellitus with peripheral neuropathy: Status: Acute Assessment and plan: Last glycohemoglobin 11.4% as of 09/05/2023, see above for current insulin regimen (4) DVT prophylaxis: Status: Acute Assessment and plan: Enoxaparin 40 mg subcutaneous daily (5) Pleural effusion, left: Status: Acute Assessment and plan: patient appears to be volume overloaded w/ bilateral leg edema, left pleural effusion, she has moist cough; BNP was elevated this admission, will check echo (has none on file) to evaluate LV and RV function, she is requiring low flow NC oxygen; will put her empirically on some iv lasix for a day or two but check her echo to evaluate for CHF (HFPEF vs HFREF). I am encouraging nursing to get her out of bed and P.T. has been consulted. will encourage her to use IS and Acapella, if able to provide sputum then will check for pneumonia. CXR showed pleural effusion but not clear as to whether or not there is retrocardiac infiltrate as well. Subjective Subjective Interval history since last seen: Nilam states she feels better. She is more alert and interactive w/ nursing today and her nauseas has improved as has her epigastric abdominal pain. Exam Narrative Exam Narrative: Nilam is alert, oriented; she has very moist cough Lungs: bibasilar rales, no rhonchi or wheezing Heart: RRR, no murmur or rub Abdomen: soft, nontender this morning, normal bowel sounds Legs: 1+ bilateral edema, right foot w/ dry ulcer (see Dr. Castellano's notes for details) Objective Last Vital Signs Temp 36.2 C L 10/18/23 01:00 Pulse 108 H 10/17/23 09:00 Resp 28 H 10/17/23 07:01 BP 127/71 10/17/23 07:01 Pulse Ox 93 10/17/23 23:48 Laboratory Results - last 24 hr 10/16/23 10/17/23 10/17/23 14:38 11:10 14:45 WBC RBC Hgb Hct MCV MCH MCHC RDW Plt Count MPV Immature Gran % Neutrophils % Band Neutrophils % Lymphocytes % Monocytes % Eosinophils % Basophils % Nucleated RBC % Absolute Neutrophils Absolute Lymphocytes Absolute Monocytes Absolute Eosinophils Absolute Basophils RBC Morphology Sodium 133 L 133 L Potassium 4.4 5.0 Chloride 97 L 99 Carbon Dioxide 24.2 22.0 Anion Gap 11.8 H 12.0 H BUN 22 H 23 H Creatinine 1.6 H 1.7 H Est GFR (CKD-EPI 2020) 33.63 31.27 Glucose 376 H 281 H Calcium 8.5 8.3 L Magnesium C-Reactive Protein Urine Osmolality 606 10/18/23 10/18/23 05:10 05:10 WBC 20.59 H RBC 4.15 Hgb 10.5 L D Hct 33.4 L MCV 81 MCH 25.3 L MCHC 31.4 L RDW 15.9 H Plt Count 248 MPV 10.0 Immature Gran % 0.0 Neutrophils % 78.0 Band Neutrophils % 6 Lymphocytes % 9.0 Monocytes % 4.0 Eosinophils % 3.0 Basophils % 0.0 Nucleated RBC % 0.0 Absolute Neutrophils 17.30 H Absolute Lymphocytes 1.85 Absolute Monocytes 0.82 H Absolute Eosinophils 0.62 Absolute Basophils 0.00 RBC Morphology Normal Sodium 135 L Potassium 3.6 D Chloride 99 Carbon Dioxide 27.6 Anion Gap 8.4 BUN 29 H Creatinine 1.7 H Est GFR (CKD-EPI 2020) 31.27 Glucose 123 H Calcium 8.3 L Magnesium 2.1 Cancelled C-Reactive Protein > 25.00 H Urine Osmolality Time Spent with Patient Time Spent with Patient: 35-49 minutes Time was spent: preparing to see the patient(eg.review tests), ordering medications,tests, procedures, referring, communicating with other health acute care clinical nurse specialist (Dr. Castellano), indepentently interpreting results, counseling the patient and care coordination
[2023-10-18] MEDS: Insulin Aspart 300 UNITS/3 ML PEN SC ×6 (08:29→21:13)
[2023-10-18] MEDS: LINEZOLID 600 MG/300 ML BAG 300 MG IVPB ×2 (08:31→21:09)
[2023-10-18] MEDS: Insulin Glargine 300 UNITS/3 ML PEN 10 UNITS SC (08:33)
[2023-10-18] MEDS: Furosemide 20 MG/2 ML VIAL IVP ×2 (09:33→17:05)
[2023-10-18] MEDS: Potassium Chloride 10 MEQ CAPCR 20 MEQ PO (09:33)
[2023-10-18 09:41] LABS: Lab Add On Test DONE
[2023-10-18 10:00] LABS: NT-proBNP 1796 pg/mL (<300)
--- NOTE | 2023-10-18 10:38 | PGE_ITS ---
Date of Service Date of service: 10/18/23 Time of Service: 09:00 Assessment and Plan Assessment and plan (1) Unstageable pressure ulcer of right heel: Status: Acute (2) Diabetic foot infection: Status: Acute (3) DKA (diabetic ketoacidoses): Status: Resolved Qualifiers: Diabetes mellitus type: type 2 Diabetes mellitus complication detail: without coma Qualified Code(s): E11.10 - Type 2 diabetes mellitus with ketoacidosis without coma (4) Poorly controlled type 2 diabetes mellitus with peripheral neuropathy: Status: Acute (5) DVT prophylaxis: Status: Acute Assessment and plan: Right heel ulcer was evaluated today. Noted to be with some improvement as there is no malodor today. 2 small areas of necrotic tissue persist with some DINESH ulcerative pain. The pain is likely secondary to the ischemic/necrotic nature of the wound. I reviewed the MRI in detail today and there is no evidence for a deeper drainable abscess at this time and therefore surgical intervention is not indicated at this time. Should an abscess develop, an OR wound debridement may be indicated. She does have a UTI and a respiratory infection at this time which is likely contributing to the increased white count. Will continue with antibiotics which she is currently on which should cover the right heel low-grade infection as well. I discussed this in detail with Dr. Taylor who agrees. Right foot dressings as follows: Please apply Medihoney, 4 x 4 soaked in Dakin's, Kerlix, Alok wrap daily. Please continue to use the Prevalon boot. Patient to continue minimal weightbearing to the right heel. Will continue to follow. Subjective Subjective Interval history since last seen: Patient is seen bedside today resting comfortably. Offers no other pedal complaints today does continue to report pain to the medial aspect of the left heel. Exam Extrem Other: Bilateral lower extremity physical exam: Derm: Unstageable ulcers x 2 noted to the right heel medially with DINESH ulcerative desquamation no malodor noted from this area, no erythema no fluctuance no bogginess noted. Skin is otherwise warm dry and supple lesions or other ulceration. Nails x 10 thickened elongated debris. Malodor noted. No probe to bone, no tunneling and no undermining. Vascular: DP PT pulses are palpable bilateral lower extremity. Hair growth absent. Skin is thin and shiny bilaterally. There is edema noted bilaterally. MSK: Muscle strength noted to be intact. Tenderness to palpation noted to the right heel medially. Objective Last Vital Signs Temp 97.2 F L 10/18/23 01:00 Pulse 96 H 10/18/23 09:01 Resp 25 H 10/18/23 09:01 BP 118/66 10/18/23 09:01 Pulse Ox 95 10/18/23 09:01 Laboratory Results - last 24 hr 10/16/23 10/16/23 10/17/23 13:39 14:38 11:10 WBC RBC Hgb Hct MCV MCH MCHC RDW Plt Count MPV Immature Gran % Neutrophils % Band Neutrophils % Lymphocytes % Monocytes % Eosinophils % Basophils % Nucleated RBC % Absolute Neutrophils Absolute Lymphocytes Absolute Monocytes Absolute Eosinophils Absolute Basophils RBC Morphology Sodium 133 L Potassium 4.4 Chloride 97 L Carbon Dioxide 24.2 Anion Gap 11.8 H BUN 22 H Creatinine 1.6 H Est GFR (CKD-EPI 2020) 33.63 Glucose 376 H Serum Osmolality 303 H Calcium 8.5 Magnesium C-Reactive Protein NT-Pro-B Natriuret Pep Urine Osmolality 606 Add-On Test Request 10/17/23 10/18/23 10/18/23 14:45 05:10 05:10 WBC 20.59 H RBC 4.15 Hgb 10.5 L D Hct 33.4 L MCV 81 MCH 25.3 L MCHC 31.4 L RDW 15.9 H Plt Count 248 MPV 10.0 Immature Gran % 0.0 Neutrophils % 78.0 Band Neutrophils % 6 Lymphocytes % 9.0 Monocytes % 4.0 Eosinophils % 3.0 Basophils % 0.0 Nucleated RBC % 0.0 Absolute Neutrophils 17.30 H Absolute Lymphocytes 1.85 Absolute Monocytes 0.82 H Absolute Eosinophils 0.62 Absolute Basophils 0.00 RBC Morphology Normal Sodium 133 L 135 L Potassium 5.0 3.6 D Chloride 99 99 Carbon Dioxide 22.0 27.6 Anion Gap 12.0 H 8.4 BUN 23 H 29 H Creatinine 1.7 H 1.7 H Est GFR (CKD-EPI 2020) 31.27 31.27 Glucose 281 H 123 H Serum Osmolality Calcium 8.3 L 8.3 L Magnesium 2.1 Cancelled C-Reactive Protein > 25.00 H NT-Pro-B Natriuret Pep 1796 H Urine Osmolality Add-On Test Request 10/18/23 09:41 WBC RBC Hgb Hct MCV MCH MCHC RDW Plt Count MPV Immature Gran % Neutrophils % Band Neutrophils % Lymphocytes % Monocytes % Eosinophils % Basophils % Nucleated RBC % Absolute Neutrophils Absolute Lymphocytes Absolute Monocytes Absolute Eosinophils Absolute Basophils RBC Morphology Sodium Potassium Chloride Carbon Dioxide Anion Gap BUN Creatinine Est GFR (CKD-EPI 2020) Glucose Serum Osmolality Calcium Magnesium C-Reactive Protein NT-Pro-B Natriuret Pep Urine Osmolality Add-On Test Request DONE Time Spent with Patient Time Spent with Patient: >50 minutes Time was spent: preparing to see the patient(eg.review tests), obtaining and/or reviewing separately otained hiistory, referring, communicating with other health acute care registered nurse, indepentently interpreting results, counseling the patient and care coordination
[2023-10-18 10:42] LABS: Bilirubin Negative (Negative); Blood Trace-intact (Negative); Clarity Cloudy (Clear); Glucose Negative (Negative); Ketones Negative (Negative); Leukocyte Esterase Moderate (Negative); Nitrite Negative (Negative); Specific Gravity 1.015 (1.005-1.025); Urobilinogen 0.2 mg/dL (Up to 0.2); pH 5.5 (5-8)
[2023-10-18 10:57] LABS: Bacteria Few HPF (Negative); Epithelial Cells Few HPF (Negative); Other Cells Few Renal (Negative); RBC 0-2 HPF (0-2); WBC 20-50 HPF (0-5)
[2023-10-18 10:58] LABS: C & S Indicated? Yes; Casts Negative LPF (Negative); Crystals Other HPF (Negative); Mucus Negative (Negative)
--- NOTE | 2023-10-18 15:28 | IN_ITS ---
PT Notes Visit Reasons: Cellulitis, Diabetic Foot Wound, DKA Physical Therapy Inpatient Initial Evaluation Date: 10/18/2023 Referring Doctor: Anish Taylor MD PT Orders: PT CONSULT: Extended Stay Weakness Precautions: Fall. Standard. Activity as tolerated. Patient Profile/Admitting Diagnosis: Nilam is a 73-year-old female with past medical history significant for CVA who presented to the ED on 10/16/2023 due to vomiting and foot wound. Patient is admitted for management of diabteic foot infection, DKA, and poorly controlled type II DM. Was recently admitted to this hospital and was discharged to home on August with stand by assist using FWW for 100 feet. PMHX: All Active Problems (Updated 10/16/23 @ 19:43 by Anish Taylor MD) DVT prophylaxis (Acute) Poorly controlled type 2 diabetes mellitus with peripheral neuropathy (Acute) DKA (diabetic ketoacidoses) (Acute) Diabetic foot infection (Acute) Low serum iron (Acute) Lumbar back pain with radiculopathy affecting right lower extremity (Acute) Ambulatory dysfunction (Acute) Weakness (Acute) Hyperglycemia due to type 2 diabetes mellitus (Acute) Medical History Urinary tract infection Palliative care patient Physician orders for life-sustaining treatment (POLST) form indicates patient wish for [id number] status ACP (advance care planning) Stroke Diabetes CHF (congestive heart failure) Surgical History History of ERCP S/P tonsillectomy Social History/Home Situation: Lived in a SNF in [place] since April to August of this year. Was ambulatory without device inside her room but uses the wheelchair to go to the dining room at the SNF. Equipment Owned/DME: Used wheelchair for long distances in previous SNF Subjective: Objective: General Observation: Resting in bed. IV through L UE. Love catheter in place. High BMI. R leg and foot more swollen than L. Wound dressing to R heel. Increased trunk lean to L while at edge of bed. Mental Status: Alert and oriented as to person, place, time, and purpose. Able to pay attention, focus, and respond appropriately. Pain: None reported Vital Signs: BP 129/68 mmHg, HR 85 bpm, Oxyen saturation 93% on RA ROM: Right Upper Extremity: Shoulder Flexion WFL. Shoulder abduction WFL. Elbow flexion WFL. Wrist flexion WFL. Functional opening and closing of hand WFL. Left Upper Extremity: Shoulder Flexion WFL. Shoulder abduction WFL. Elbow flexion WFL. Wrist flexion WFL. Functional opening and closing of hand WFL. Right Lower Extremity: Hip flexion WFL. Hip abduction WFL. Knee flexion WFL. Ankle dorsiflexion to neutral only. Ankle plantarflexion WFL. Left Lower Extremity: Hip flexion only allows 25% of AROM. Hip abduction WFL. Knee flexion 30 degrees to 60 degrees. Kne extension -30 degrees. Ankle dorsiflexion to neutral only. Ankle plantarflexion WFL. Strength: Right Upper Extremity: Shoulder flexors 4/5. Shoulder abductors 4/5. Elbow flexors 4/5. Elbow extensors 4/5. Senior Pharmacy Technician strong. Left Upper Extremity: Shoulder flexors 4-/5. Shoulder abductors 4-/5. Elbow flexors 4-/5. Elbow extensors 4-/5. Senior Pharmacy Technician weaker than R but functional. Right Lower Extremity: Hip flexors 3/5. Hip abductors 4-/5. Knee flexors 4/5. Knee extensors 4-/5. Ankle dorsiflexors 3-/5. Ankle plantarflexors 4-/5. Left Lower Extremity: Hip flexors 3-/5. Hip abductors 3-/5. Knee flexors 3-/5. Knee extensors 3-/5. Ankle dorsiflexors 3-/5. Ankle plantarflexors 3-/5. Bed Mobility/Transfers: Minimal cueing provided for use of B hands as needed for support, movement sequence, AD management, and posture to reduce fall risk and minimize pain report Supine to sit with minimal assist, HOB at 30 degrees Sit to stand with minimal assist Stand to sit with contact guard assist Gait: Facilitated safe and correct performance of level surface ambulation covering a distance of 40 feet using front-wheeled walker with contact-guard assist and wheelchair follow requiring minimal verbal cueing for limb advancement, AD management, and posture to reduce fall risk and minimize pain report. Increased trunk lean to L. Decreased step height and length on L. Minimal weight bearing on the R heel. Standardized Measure [facility]-P[facility] 6 clicks [facility] Mobility Inpatient Short Form: Raw Score: 18 CMS Score: 47% deficit Informed Consent/Education: Patient was instructed in purpose of PT consult and plan of care. Agreeable to proceed with established PT POC to achieve personal goals. Assessment: Increased trunk lean on L and L UE/LE weaker than R due to residual L-sided hemiparesis from previous CVA. Patient presents with clinical signs and symptoms consistent with current/admitting diagnoses that have resulted to mobility limitations, gait instability, generalized weakness, and overall ADL decline as demonstrated by the following impairment level findings: 1. Decreased strength to B UE/LE major muscle groups 2. Impaired standing balance 3. Impaired activity tolerance 4. Shortness of breath 5. Swelling in B LE with R>>L Impairments are contributing to the following functional limitations: 1. Decline in bed mobility skills 2. Decline in transfer skills 3. Difficulty with ambulation without assistive device and physical assistance 4. Increased completion time for mobility ADL performance 5. Increased risk for falls 6. Difficulty with managing steps alone safely Patient is assessed as a 78030 moderate complexity based on the following: History: 72-year-old female with past medical history as indicated above Examination: Demonstrable impairment in strength, balance, and mobility level with underlying impairments and functional limitations as exhibited above as well as deficit score of 47% utilizing the [facility] Mobility Inpatient Short Form Presentation: Evolving Decision Makin moderate complexity Goals: Goals X1 week 1. Supine-Sit independent 2. Sit-Supine independent 3. Sit-Stand independent 4. Stand-Sit independent with FWW 5. Bed-Chair independent with FWW 6. Chair-Bed independent with FWW 7. Independent gait on level surface with use of FWW for at least 200 feet without report of pain nor dyspnea 8. Independent stair negotiation while holding onto B rails for at least 5 steps without report of pain nor dyspnea 9. Independent with home exercise program 10. Good static and dynamic standing balance/tolerance Plan of Care/Treatment Plan: 1-2x/day, 7 days/week x 1 week. Plan of care has been reviewed with the BAND BOOKER providing the service under Physical Therapy direction. Initiate Physical Therapy intervention for pain management as needed, strengthening, bed mobility, transfers, gait, stairs, balance training, and use of assistive device. DISCHARGE RECOMMENDATIONS: [] Home with no services [] [X] Home with services. Patient will benefit from home health PT services in order to progress mobility level using least restrictive assistive ambulatory device, assess home safety, identify additional equipment needs, and establish a functional maintenance program that will increase ability of patient to remain at home. [] Home with outpatient PT [] [] SNF for continued rehabilitation [] [] Intermediate Care [] [] SNF versus LTC based on ability to participate and progress [] TREATMENT CODE/TIME: 9716 2 x 20 minutes for 1 unit, 29328 x 11 minutes for 1 unit (15:28-15:59). Thank you for the opportunity to participate in the care of this patient. Bridget Andersen PT, DPT, CLT [facility] [place], [place]
[2023-10-18] MEDS: Enoxaparin 40 MG/0.4 ML SYR SC (17:46)
[2023-10-18] MEDS: Potassium Chloride 20 MEQ TABCR PO (21:10)
[2023-10-18] MEDS: Insulin Glargine 300 UNITS/3 ML PEN 25 UNITS SC (21:11)
[2023-10-19 00:04] VITALS: BP 116/62; PULSE 95; RESP 19; TEMP 38.1; O2SAT 90
[2023-10-19] MEDS: IMIPENEM/CILASTATIN 500 MG in Normal Saline 100 ML 200 MG IVPB ×4 (00:06→23:39)
[2023-10-19] MEDS: oxyCODONE 5 MG TAB PO (00:12)
[2023-10-19] MEDS: Levothyroxine 150 MCG TAB PO (06:28)
[2023-10-19 06:39] LABS: Abs Immature Grans 0.36 10^3/uL (0.0-0.06); Absolute Basophil Count 0.08 10^3/uL (0.0-0.2); Absolute Eosinophil Count 0.18 10^3/uL (0.0-0.7); Absolute Lymphocyte Count 1.13 10^3/uL (1.2-3.4); Absolute Monocyte Count 1.05 10^3/uL (0.1-0.8); Absolute Neutrophil Count 17.73 10^3/uL (1.2-6.7); Basophils % 0.4 %; Eosinophils % 0.9 %; HCT 32.4 % (36.0-46.0); HGB 10.6 g/dL (11.2-15.7); Immature Grans % 1.8 %; Lymphocytes % 5.5 %; MCH 25.4 pg (27.0-33.0); MCHC 32.7 % (32.0-36.0); MCV 78 fL (80-95); Monocytes % 5.1 %; Neutrophils % 86.3 %; Platelet Count 262 10^3/uL (130-400); RBC 4.17 10^6/uL (3.93-5.22); RDW 15.7 % (11.7-14.6); RDW-SD 44.5 fL; WBC 20.55 10^3/uL (4.4-10.8)
[2023-10-19 06:55] LABS: ALT 12 U/L (14-59); AST 15 U/L (15-37); Albumin 1.9 g/dL (3.4-5.0); Alkaline Phosphatase 129 U/L (46-116); BUN 24 mg/dL (7-18); Bilirubin, Total 0.4 mg/dL (0.2-1.0); CREATININE 1.5 mg/dL (0.55-1.02); Calcium 8.3 mg/dL (8.5-10.1); Chloride 96 mmol/L (98-107); Estimated GFR 36.34 (mL/min/1.73m2); Glucose 195 mg/dL (74-106); Potassium 3.6 mmol/L (3.5-5.1); Sodium 131 mmol/L (136-145); Total Protein 6.9 g/dL (6.4-8.2)
[2023-10-19 07:04] LABS: C-Reactive Protein > 25.00 mg/dL (<or=0.5)
[2023-10-19 08:12] VITALS: BP 132/78; PULSE 95; RESP 20; TEMP 37.6; O2SAT 92
--- NOTE | 2023-10-19 08:32 | CMPROGNOTE_ITS ---
Date of service: 10/19/23 Time of Service: 08:32 Care Management Progress Note Progress Note Text Progress Note Text: S/O: Nilam has a UTI, respiratory infection and diabetic foot infection. Her WBC's are elevated, she is receiving IV ABX and has cultures pending. Podiatry is consulted, recommendations provided. (See podiatry notes). Nilam was watching TV in bed with the HOB elevated when CM met with her. She is awake and easily engages in conversation. Nilam reported that she has 2 daughters and 1 granddaughter. Currently, she lives in [facility] with her Granddaughter Noam. Noam has been her caregiver since she came to the area a few months ago. Noam works nights and sleeps days. Nilam states that she came to the area because Chen wanted her to be closer to her. Chen has 2 children and lives in [place] at a Hotel. Her Daughter Michelle lives on the streets in [place] and is addicted to drugs. The two are not close and she only calls her for money. 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 She was for 49 years, and is now . She is on Social Security. She has been waiting to get her new insurance cards through [employer] and has been self paying for her medicine. She states that the last time she got meds it was $140 out of pocket and that did not include insulin which she knows will is expensive. Nilam feels things are ok at Noam's even though she gets lonely at times. She would eventually like to move in with her daughter Chen if she ever gets a place, which she says is doubtful. Per pt, Chen was planning on visiting her today around 2pm. CM plans on meeting with Nilam and Chen at that time. CM will continue to follow. Earlier in the morning, Noam Page called CM to express concerns about her ability to care for Nilam. Noam clearly verbalized to CM that she does not want her coming back to her house. Per Noam she made a plan with Chen that Nilam would stay with her for 1 month, while [place] get [place] [facility] [place]. Its going on 2 months now and Chen isn't helping and wont return her calls. A:73 year old admitted to [facility] 10/16/23 for Sepsis, diabetic foot infection, DKA P:Nilam transferred to Med/Surg floor, remains inpatient at this time. Complex discharge, plan unknown at this time. SDOH(Care Management) Screening Will the Patient Participate in the Screening?: Unable to obtain
[2023-10-19] MEDS: Atorvastatin 40 MG TAB PO (09:16)
[2023-10-19] MEDS: Ferrous Sulfate 325 MG TAB PO (09:16)
[2023-10-19] MEDS: Docusate Sodium 100 MG CAP PO (09:16)
[2023-10-19] MEDS: Gabapentin 300 MG CAP PO ×3 (09:16→21:21)
[2023-10-19] MEDS: Acetaminophen 500 MG TAB 1000 MG PO ×3 (09:16→21:21)
[2023-10-19] MEDS: Potassium Chloride 20 MEQ TABCR PO ×2 (09:16→21:20)
[2023-10-19] MEDS: Pantoprazole 40 MG TABCR PO (09:17)
[2023-10-19] MEDS: Furosemide 20 MG/2 ML VIAL IVP ×2 (09:19→16:32)
[2023-10-19] MEDS: Normal Saline Flush 10 ML SYR IVP ×3 (09:20→23:39)
[2023-10-19] MEDS: Insulin Aspart 300 UNITS/3 ML PEN SC ×7 (09:39→21:23)
[2023-10-19] MEDS: Insulin Glargine 300 UNITS/3 ML PEN 10 UNITS SC (09:41)
--- NOTE | 2023-10-19 10:22 | W.PM.PROGNOT ---
Date of Service Date of service: 10/19/23 Time of Service: 10:22 Assessment and Plan Assessment and plan (1) Diabetic foot infection: Status: Acute Assessment and plan: -Had initially been on Zosyn and vancomycin for 3 days -MRI did not show any abscess or any osteomyelitis -While there is infection of the skin, she does not have any deep abscess that requires any operation to debride. -agree w/ Dr. Castellano that just local debridement along w/ chemical debridement should suffice for now and since patient respiratory status is tenous, she would not be good surgical candidate. -Once she is over her UTI and her respiratory status has improved, if she were to need an operation for debridement of her foot, then we could re-explore that approach. 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 -continue novolog resistant scale during the day for elevated glucose and insulin senstive for at bedtime, basal insulin Lantus 25 units at HS and 10 units qam, and Novolog coverage for CHO intake (1:10) Qualifiers: Diabetes mellitus type: type 2 Diabetes mellitus complication detail: without coma Qualified Code(s): E11.10 - Type 2 diabetes mellitus with ketoacidosis without coma (3) Poorly controlled type 2 diabetes mellitus with peripheral neuropathy: Status: Acute Assessment and plan: -Last glycohemoglobin 11.4% as of 09/05/2023, see above for current insulin regimen (4) DVT prophylaxis: Status: Acute Assessment and plan: -Enoxaparin 40 mg subcutaneous daily (5) Pleural effusion, left: Status: Acute Assessment and plan: -patient appears to be volume overloaded w/ bilateral leg edema, left pleural effusion, she has moist cough; BNP was elevated this admission, will check echo (has none on file) to evaluate LV and RV function, -had required 1-2L NC but has since been transtioned to RA -TTE showed the following; Mild concentric left ventricular hypertrophy. Ejection fraction is 50%. Septal motion is somewhat paradoxic Normal right ventricular size and function Both atria are normal in size Mild mitral annular calcification Estimated right ventricular systolic pressure is 34 mmHg Dilated ascending aorta 4.21 cm Subjective Subjective Interval history since last seen: Patient is a little tired this morning complaining of a headache, otherwise has no other complaints or concerns at this time. Exam Narrative Exam Narrative: Chronically ill-appearing older female laying in bed in no acute distress, drowsy but ANO x 4, heart regular rate rhythm, lungs clear to auscultation bilaterally, right foot wrapped in bandage, please see podiatry note for further details Objective Last Vital Signs Temp 99.7 F H 10/19/23 08:12 Pulse 95 H 10/19/23 08:12 Resp 20 10/19/23 08:12 BP 132/78 10/19/23 08:12 Pulse Ox 92 10/19/23 08:12 Laboratory Results - last 24 hr 10/18/23 10/19/23 10:24 05:52 WBC 20.55 H RBC 4.17 Hgb 10.6 L Hct 32.4 L MCV 78 L MCH 25.4 L MCHC 32.7 RDW 15.7 H Plt Count 262 MPV 10.0 Immature Gran % 1.8 Neutrophils % 86.3 Lymphocytes % 5.5 Monocytes % 5.1 Eosinophils % 0.9 Basophils % 0.4 Nucleated RBC % 0.0 Absolute Neutrophils 17.73 H Absolute Lymphocytes 1.13 L Absolute Monocytes 1.05 H Absolute Eosinophils 0.18 Absolute Basophils 0.08 Sodium 131 L Potassium 3.6 Chloride 96 L Carbon Dioxide 27.0 Anion Gap 8.0 BUN 24 H Creatinine 1.5 H Est GFR (CKD-EPI 2020) 36.34 Glucose 195 H Calcium 8.3 L Total Bilirubin 0.4 AST 15 ALT 12 L Alkaline Phosphatase 129 H C-Reactive Protein > 25.00 H Total Protein 6.9 Albumin 1.9 L Urine Color Yellow Urine Clarity Cloudy Urine pH 5.5 Ur Specific [place] 1.015 Urine Protein 30 H Urine Ketones Negative Urine Blood Trace-intact H Urine Nitrite Negative Urine Bilirubin Negative Urine Urobilinogen 0.2 Ur Leukocyte Esterase Moderate H Urine RBC 0-2 Urine WBC 20-50 H Ur Epithelial Cells Few Urine Crystals Other Urine Bacteria Few Urine Casts Negative Urine Mucus Negative Urine Other Few Renal Ur Culture Indicated? Yes Urine Glucose Negative Time Spent with Patient Time Spent with Patient: >50 minutes Time was spent: preparing to see the patient(eg.review tests), obtaining and[facility]or [facility], ordering medications,tests, procedures, referring, communicating with other health care management associate, indepentently interpreting results, counseling the patient and care coordination
[2023-10-19] MEDS: LINEZOLID 600 MG/300 ML BAG 300 MG IVPB ×2 (10:26→21:21)
--- NOTE | 2023-10-19 12:47 | PHA.REVIEW2 ---
Pharmacy Admission Review Admission Clinical Review Admission Pharmacy Review: (Updated 10/18/23 @ 09:17 by Anish Taylor MD) Pleural effusion, left (Acute) Unstageable pressure ulcer of right heel (Acute) DVT prophylaxis (Acute) Poorly controlled type 2 diabetes mellitus with peripheral neuropathy (Acute) Diabetic foot infection (Acute) Hyperglycemia due to type 2 diabetes mellitus (Acute) No Known Allergies Allergy (Unverified 10/16/23 12:53) Resuscitation Status DNR/DNI Height 5 ft 5 in Weight 108 kg Pharmacy Admission Review Renal Dosing Renal Dosing: BUN 24 mg/dL (7-18) H 10/19/23 05:52 Creatinine 1.5 mg/dL (0.55-1.02) H 10/19/23 05:52 Medications needing adjustments: Reviewed (CrCl 40.21 mL/min, BUN decreased from 29 to 24 and SCr decreased from 1.7 to 1.5) List of meds needing interventions: Current medications are okay Anticoagulation Anticoagulation: Hgb 10.6 g/dL (11.2-15.7) L 10/19/23 05:52 Hct 32.4 % (36.0-46.0) L 10/19/23 05:52 Plt Count 262 10^3/uL (130-400) 10/19/23 05:52 Creatinine 1.5 mg/dL (0.55-1.02) H 10/19/23 05:52 DVT Prophylaxis: Reviewed Medications: Enoxaparin (40mg daily) Opiate Usage Evaluate Pain Scale/Pains Meds: Reviewed (PRN oxycodone - given once during admission so far) Scheduled Bowel Reg ordered if on Opiates?: No (PRN Miralax and docusate) Relevant Labs Relevant Labs: ESR 46 mm/hr (0-30) H 10/16/23 14:03 Sodium 131 mmol/L (136-145) L 10/19/23 05:52 Potassium 3.6 mmol/L (3.5-5.1) 10/19/23 05:52 Chloride 96 mmol/L (98-107) L 10/19/23 05:52 Phosphorus 2.7 mg/dL (2.6-4.7) 10/17/23 05:53 Magnesium 2.1 mg/dL (1.8-2.4) 10/18/23 05:10 Magnesium Cancelled 10/18/23 05:10 C-Reactive Protein > 25.00 mg/dL (<or=0.5) H 10/19/23 05:52 Electrolytes, C-Reactive P, ESR: Reviewed (Na 131, Hgb slightly increased from 10.5 to 10.6) DM Control DM Control: Glucose 195 mg/dL (74-106) H 10/19/23 05:52 Finger Stick Blood Glucose 282 1156 Finger Stick Blood Glucose 282 1156 Finger Stick Blood Glucose 201 0941 Finger Stick Blood Glucose 201 0939 Finger Stick Blood Glucose 201 0939 Finger Stick Blood Glucose 201 0809 Finger Stick Blood Glucose 201 0809 DM Control: Reviewed Insulin Dosing, Diabetic Medication: Last A1c was 11.4% in 08/2023 per progress note. Has order for SS insulin before meals and at bedtime, carb correction insulin and glargine morning and evening dose. Per progress note patients DKA has resolved. Does note non-compliance with medications. Cardiac Review Cardiac Review: Troponin I < 50 ng/L (< or =60) 10/16/23 12:45 NT-Pro-B Natriuret Pep 1796 pg/mL (<300) H 10/18/23 05:10 BP, HR, EF%: Reviewed (BP WNL, HR 95) QTc Review QTc: Reviewed (514 from 10/15) IV to PO Switch IV Medications: Reviewed (Furosemide, imipenem/cilastatin, linezolid and prochlorperazine) Home Meds Home Med List reviewed: Reviewed Relevent Home Meds Not ordered & why?: Benzonatate (PRN) and metformin (has order for SS + carb correction insulin) Current Meds Current Medication Order Review: Intervened Comments: Put PRN trazodone order on hold due to current treatment with Linezolid (risk of serotonin syndrome). Provider aware. Pharmacy Antibiotic Review Relevant Labs: Relevant Labs 10/19/23 05:52 C-Reactive Protein > 25.00 H Microbiology 10/17/23 12:20 Wound Culture - Preliminary Heel - Right Staph aureus, MRSA Normal Gogo Gram Negative Remi Gram Stain - Final 10/18/23 10:24 Urine Culture - Preliminary Urine - Reflex from Ua YEAST 10/16/23 14:38 Urine Culture - Final Urine - Reflex from Ua Escherichia coli 10/16/23 14:03 Blood Culture - Preliminary Blood NO GROWTH 48 HOURS 10/16/23 13:38 Blood Culture - Preliminary Blood NO GROWTH 48 HOURS WBC 20.55 10^3/uL (4.4-10.8) H 10/19/23 05:52 Procalcitonin 0.5 ng/mL 10/16/23 13:38 Temperature 37.6 C 0812 Pharmacy Antibiotic Activity: C/S review and Reviewed, no change Comments: Patient currently on imipenem/cilastatin and Linezolid, day 2 for cellulitis and UTI. Was initially treated with 3 days of Zosyn and vancomycin. WBC slightly decreased from 20.59. Elevated temperature this morning at 0812. Repeat culture from wound pending, others are as noted above. Per surgical consult, intervention not indicated at this time.
--- NOTE | 2023-10-19 14:29 | PT.INTREAT ---
PT Notes Visit Reasons: Cellulitis, Diabetic Foot Wound, DKA Date: 10/19/23 PRECAUTIONS: Fall. Standard. Activity as tolerated. Contact precautions SUBJECTIVE: pt in bed sleepingwhen approached for therapy this afternoon, pt agreed to participating with therapy session after pt woke up from her sleep. OBJECTIVE: ? ?IV line LUE, right heel relief boot ?, crump catheter in place? PAIN: report none when in supine Right heel pain when in weight bearing position VITALS: monitored by nursing Therapeutic Activities 40045: Direct one-on-one instruction in dynamic activities to improve functional performance. ?? BED MOBILITY/TRANSFERS? Rolling L/R: min A Supine-sit: ?min A ? Sit-supine: ? min A? Sit-stand: ? Min A / high bed? Stand-sit: ?SBA? Bed-Chair:? CGA? Chair-bed: CGA Provided skilled cues and instruction on performance and technique throughout. Gait Training 47401: Direct one-on-one instruction and skilled instruction in: Employing an assistive device Modified weight-bearing status Movement sequencing Turning and movement with proper form Provided verbal cues for equipment management and technique Provided instruction in gait pattern Patient education regarding pacing and breathing techniques to maximize activity tolerance? GAIT? Assistive Device: ?? FWW? Weight bearing: WBAT Assist: ?CGA ? Distance:?? ?40'x2 seated rest break in between ? Deviation: ? Slow jonathan, low step height, short step length, stoop forward position ? ASSESSMENT:?pt able to tolerate gaot training distance without complaint of pain on her right heel while walking with heel relief boot. pt reports it is harder to walk with the boots on, pt bed mobility going back in bed setup A for bed repositioning to facilitate gravity facilitated bed mobility. tactile and berbal cue for hand placement for timing when pulling and side rolling, bed incline modification to promote ease with movement. PLAN: Continue with balance training, global strengthening and general conditioning for improved safety, mobility and activity tolerance until pt is ready for DC. TREATMENT CODE/TIME: [id number] 25mins (1:55-2:20pm)
[2023-10-19 15:51] VITALS: BP 130/67; PULSE 86; RESP 20; TEMP 36.9; O2SAT 91
--- NOTE | 2023-10-19 15:56 | PT.INTREAT ---
PT Notes Visit Reasons: Cellulitis, Diabetic Foot Wound, DKA Date: 10/19/23 PRECAUTIONS: Fall. Standard. Activity as tolerated. Contact precautions SUBJECTIVE: pt in bed when approached for the second time this afternoon. agreed to seated activity Therapeutic Activities 60105: Direct one-on-one instruction in dynamic activities to improve functional performance. ?? BED MOBILITY/TRANSFERS? Rolling L/R: min A Supine-sit: min A ? Sit-supine: ?min A ? Sit-stand: ? CGA? Stand-sit: ?? CGA ? Bed-Chair:? ? not performed? Chair-bed: not performed Provided skilled cues and instruction on performance and technique throughout. ? Therapeutic Exercises 58021: Direct one-on-one instruction in therapeutic exercises to develop strength, endurance, range of motion and flexibility.? Provided skilled instruction in proper exercise performance Provided skilled manual cues to facilitate proper muscle recruitment and/or form: Exercises - Seated Hip Flexion - 1 x daily - 7 x weekly - 1 sets - 10 reps - Seated Long Arc Quad - 1 x daily - 7 x weekly - 1 sets - 10 reps - Seated Hip Abduction - 1 x daily - 7 x weekly - 1 sets - 10 reps - Seated Heel Raise - 1 x daily - 7 x weekly - 1 sets - 10 reps - Seated Toe Raise - 1 x daily - 7 x weekly - 1 sets - 10 reps - Sit to Stand - 1 x daily - 7 x weekly - 1 sets - 10 reps PLAN: Continue with balance training, global strengthening and general conditioning for improved safety, mobility and activity tolerance until pt is ready for DC. TREATMENT CODE/TIME: [id number] 15mins (4:00-4:15pm)
[2023-10-19] MEDS: Enoxaparin 40 MG/0.4 ML SYR SC (18:02)
[2023-10-19] MEDS: Insulin Glargine 300 UNITS/3 ML PEN 25 UNITS SC (21:22)
[2023-10-19 23:01] VITALS: BP 148/81; PULSE 94; RESP 20; TEMP 37.5; O2SAT 94
[2023-10-20] VITALS (7 sets, daily range): BP systolic 114–150; BP diastolic 63–91; PULSE 82–115; RESP 16–20; TEMP 36.5–38.8; O2SAT 93–94
--- NOTE | 2023-10-20 | DI.RAD_ITS ---
Exam(s) XR PORTABLE CHEST AP EXAM: XR PORTABLE CHEST AP CLINICAL HISTORY: SOB TECHNIQUE: 2D digital imaging was performed. COMPARISON: CR,XR XR PORTABLE CHEST AP from 10/16/2023 CR XR PORTABLE CHEST AP from 10/18/2023 FINDINGS: Exam is extremely limited due to under penetration at the lung bases. The left lower lobe is not wel l seen in part due to enlarged cardiac silhouette. Lungs are suboptimally inflated. LUNGS: No gross area of consolidation. Left pleural effusion not excluded. HEART: Enlarged. Pulmonary vascular prominence. AORTA: Normal diameter. BONES: Unremarkable for age. Soft tissues: Unremarkable. IMPRESSION: Extremely limited exam. There is pulmonary vascular prominence which could indicate pulmonary edema. Question left pleural effusion. DATA REPOSITORY: RADIATION DOSE DELIVERED:
[2023-10-20] MEDS: Levothyroxine 150 MCG TAB PO (05:55)
[2023-10-20 06:27] LABS: HCT 35.3 % (36.0-46.0); HGB 11.2 g/dL (11.2-15.7); MCH 25.1 pg (27.0-33.0); MCHC 31.7 % (32.0-36.0); MCV 79 fL (80-95); MPV 9.4 fL (8.0-11.0); Platelet Count 280 10^3/uL (130-400); RBC 4.46 10^6/uL (3.93-5.22); RDW 15.4 % (11.7-14.6); RDW-SD 44.6 fL; WBC 20.26 10^3/uL (4.4-10.8)
[2023-10-20 06:38] LABS: BUN 18 mg/dL (7-18); CREATININE 1.3 mg/dL (0.55-1.02); Calcium 8.6 mg/dL (8.5-10.1); Chloride 94 mmol/L (98-107); Estimated GFR 43.15 (mL/min/1.73m2); Glucose 240 mg/dL (74-106); Potassium 3.8 mmol/L (3.5-5.1); Sodium 129 mmol/L (136-145)
[2023-10-20] MEDS: Atorvastatin 40 MG TAB PO (08:17)
[2023-10-20] MEDS: Pantoprazole 40 MG TABCR PO (08:17)
[2023-10-20] MEDS: Gabapentin 300 MG CAP PO ×2 (08:17→20:11)
[2023-10-20] MEDS: Normal Saline Flush 10 ML SYR IVP ×5 (08:17→20:56)
[2023-10-20] MEDS: Acetaminophen 500 MG TAB 1000 MG PO ×3 (08:17→20:11)
[2023-10-20] MEDS: Furosemide 20 MG/2 ML VIAL IVP (08:17)
[2023-10-20] MEDS: Docusate Sodium 100 MG CAP PO (08:17)
[2023-10-20] MEDS: Potassium Chloride 20 MEQ TABCR PO ×2 (08:17→20:11)
[2023-10-20] MEDS: Ferrous Sulfate 325 MG TAB PO (08:17)
[2023-10-20] MEDS: IMIPENEM/CILASTATIN 500 MG in Normal Saline 100 ML 200 MG IVPB ×2 (08:18→16:00)
[2023-10-20] MEDS: LINEZOLID 600 MG/300 ML BAG 300 MG IVPB ×2 (09:09→22:32)
[2023-10-20] MEDS: Insulin Aspart 300 UNITS/3 ML PEN SC ×6 (09:45→20:12)
[2023-10-20] MEDS: Insulin Glargine 300 UNITS/3 ML PEN 10 UNITS SC (09:46)
--- NOTE | 2023-10-20 09:46 | W.PM.PROGNOT ---
Date of Service Date of service: 10/20/23 Time of Service: 09:46 Assessment and Plan Assessment and plan (1) Diabetic foot infection: Status: Acute Assessment and plan: -Had initially been on Zosyn and vancomycin for 3 days -MRI did not show any abscess or any osteomyelitis -While there is infection of the skin, she does not have any deep abscess that requires any operation to debride. -agree w/ Dr. Castellano that just local debridement along w/ chemical debridement should suffice for now and since patient respiratory status is tenous, she would not be good surgical candidate. -Once she is over her UTI and her respiratory status has improved, if she were to need an operation for debridement of her foot, then we could re-explore that approach. 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 -continue novolog resistant scale during the day for elevated glucose and insulin senstive for at bedtime, basal insulin Lantus 25 units at HS and 10 units qam, and Novolog coverage for CHO intake (1:10) Qualifiers: Diabetes mellitus type: type 2 Diabetes mellitus complication detail: without coma Qualified Code(s): E11.10 - Type 2 diabetes mellitus with ketoacidosis without coma (3) Poorly controlled type 2 diabetes mellitus with peripheral neuropathy: Status: Acute Assessment and plan: -Last glycohemoglobin 11.4% as of 09/05/2023, see above for current insulin regimen (4) DVT prophylaxis: Status: Acute Assessment and plan: -Enoxaparin 40 mg subcutaneous daily (5) Pleural effusion, left: Status: Acute Assessment and plan: -patient appears to be volume overloaded w/ bilateral leg edema, left pleural effusion, she has moist cough; BNP was elevated this admission, will check echo (has none on file) to evaluate LV and RV function, -had required 1-2L NC but has since been transtioned to RA -TTE showed the following; Mild concentric left ventricular hypertrophy. Ejection fraction is 50%. Septal motion is somewhat paradoxic Normal right ventricular size and function Both atria are normal in size Mild mitral annular calcification Estimated right ventricular systolic pressure is 34 mmHg Dilated ascending aorta 4.21 cm Subjective Subjective Interval history since last seen: Patient is again tired this morning, but otherwise has no other complaints or concerns at this time. Exam Narrative Exam Narrative: Chronically ill-appearing older female laying in bed in no acute distress, drowsy but ANO x 4, heart regular rate rhythm, lungs clear to auscultation bilaterally, right foot wrapped in bandage, please see podiatry note for further details Objective Last Vital Signs Temp 99.7 F H 10/20/23 07:39 Pulse 95 H 10/20/23 07:39 Resp 16 10/20/23 07:39 BP 146/77 H 10/20/23 07:39 Pulse Ox 94 10/20/23 07:39 Laboratory Results - last 24 hr 10/20/23 06:03 WBC 20.26 H RBC 4.46 Hgb 11.2 Hct 35.3 L MCV 79 L MCH 25.1 L MCHC 31.7 L RDW 15.4 H Plt Count 280 MPV 9.4 Sodium 129 L Potassium 3.8 Chloride 94 L Carbon Dioxide 29.0 Anion Gap 6.0 BUN 18 Creatinine 1.3 H Est GFR (CKD-EPI 2020) 43.15 Glucose 240 H Calcium 8.6 Time Spent with Patient Time Spent with Patient: >50 minutes Time was spent: preparing to see the patient(eg.review tests), obtaining and/or reviewing separately otained hiistory, ordering medications,tests, procedures, referring, communicating with other health healthcare translator, indepentently interpreting results, counseling the patient and care coordination
--- NOTE | 2023-10-20 12:05 | PGE_ITS ---
Date of Service Date of service: 10/20/23 Time of Service: 09:50 Assessment and Plan Assessment and plan (1) Unstageable pressure ulcer of right heel: Status: Acute (2) Diabetic foot infection: Status: Acute (3) DKA (diabetic ketoacidoses): Status: Resolved Qualifiers: Diabetes mellitus type: type 2 Diabetes mellitus complication detail: without coma Qualified Code(s): E11.10 - Type 2 diabetes mellitus with ketoacidosis without coma (4) Poorly controlled type 2 diabetes mellitus with peripheral neuropathy: Status: Acute (5) DVT prophylaxis: Status: Acute Assessment and plan: Right heel ulcer was evaluated today. Noted to be with some improvement as there is no malodor today. 2 small areas of necrotic tissue persist with some DINESH ulcerative pain. The pain is likely secondary to the ischemic/necrotic nature of the wound. I recommend continued abx. Dressings applied today with Medihoney, Dakin's, 4 x 4, Kerlix, Alok wrap. I recommend continued dressing changes daily. Protected weightbearing as tolerated in a surgical shoe. She is advised to continue to use Prevalon boot while at rest No surgical intervention is planned or indicated at this time. Patient is okay to be discharged from a podiatry standpoint. She is to follow-up with [facility] iearcenio within 1 week of discharge. Subjective Subjective Interval history since last seen: Patient was seen bedside today resting comfortably. She reports feeling tired as she was unable to sleep overnight however feeling overall better. Exam Extrem Other: Bilateral lower extremity physical exam: Derm: Unstageable ulcers x 2 noted to the right heel medially, no malodor noted from this area, no erythema no fluctuance no bogginess noted. Skin is otherwise warm dry and supple lesions or other ulceration. Nails x 10 thickened elongated debris. Malodor noted. No probe to bone, no tunneling and no undermining. Vascular: DP PT pulses are palpable bilateral lower extremity. Hair growth absent. Skin is thin and shiny bilaterally. There is edema noted bilaterally. MSK: Muscle strength noted to be intact. Tenderness to palpation noted to the right heel medially. Objective Last Vital Signs Temp 99.7 F H 10/20/23 07:39 Pulse 95 H 10/20/23 07:39 Resp 16 10/20/23 07:39 BP 146/77 H 10/20/23 07:39 Pulse Ox 94 10/20/23 07:39 Laboratory Results - last 24 hr 10/20/23 06:03 WBC 20.26 H RBC 4.46 Hgb 11.2 Hct 35.3 L MCV 79 L MCH 25.1 L MCHC 31.7 L RDW 15.4 H Plt Count 280 MPV 9.4 Sodium 129 L Potassium 3.8 Chloride 94 L Carbon Dioxide 29.0 Anion Gap 6.0 BUN 18 Creatinine 1.3 H Est GFR (CKD-EPI 2020) 43.15 Glucose 240 H Calcium 8.6 Time Spent with Patient Time Spent with Patient: 25-34 minutes Time was spent: preparing to see the patient(eg.review tests), obtaining and/or reviewing separately otained hiistory, referring, communicating with other health clinical manager home care, indepentently interpreting results, counseling the patient and care coordination
--- NOTE | 2023-10-20 15:03 | PTTR_ITS ---
PT Notes Visit Reasons: Cellulitis, Diabetic Foot Wound, DKA Date: 10/20/23 PRECAUTIONS: Fall. Standard. Activity as tolerated. Contact precautions SUBJECTIVE: pt in bed sleeping when approached for therapy this morning, agreed to participating after waking up, pt in bed whenapproached for therapy in the afternoon, pt reports she is too sleepy to participate eventually agreed to participate after a couple of tries from this therapist. Therapeutic Activities 65175: Direct one-on-one instruction in dynamic activ ities to improve functional performance. ?? BED MOBILITY/TRANSFERS? Rolling L/R: min A Supine-sit: min A ? Sit-supine: ?min A ? Sit-stand: ? CGA? Stand-sit: ?? CGA ? Bed-Chair:? ? CGA ? Chair-bed: CGA Provided skilled cues and instruction on performance and technique throughout. Gait Training 84516: Direct one-on-one instruction and skilled instruction in: Employing an assistive device Modified weight-bearing status Movement sequencing Turning and movement with proper form Provided verbal cues for equipment management and technique Provided instruction in gait pattern Patient education regarding pacing and breathing techniques to maximize activity tolerance? GAIT? Assistive Device: ?? FWW? Weight bearing: WBAT Assist: ?CGA ? Distance:?? ?40'x2 seated rest break in between ? Deviation: ? Slow jonathan, low step height, short step length, stoop forward position ? Therapeutic Exercises 54744: Direct one-on-one instruction in therapeutic exercises to develop strength, endurance, range of motion and flexibility.? Provided skilled instruction in proper exercise performance Provided skilled manual cues to facilitate proper muscle recruitment and/or form: Exercises - Seated Hip Flexion - 1 x daily - 7 x weekly - 1 sets - 10 reps - Seated Long Arc Quad - 1 x daily - 7 x weekly - 1 sets - 10 reps - Seated Hip Abduction - 1 x daily - 7 x weekly - 1 sets - 10 reps - Seated Heel Raise - 1 x daily - 7 x weekly - 1 sets - 10 reps - Seated Toe Raise - 1 x daily - 7 x weekly - 1 sets - 10 reps - Sit to Stand - 1 x daily - 7 x weekly - 1 sets - 10 reps PLAN: Continue with balance training, global strengthening and general conditioning for improved safety, mobility and activity tolerance until pt is ready for DC. TREATMENT CODE/TIME: [id number] 25mins (10:00-10:25am) [id number] 20mins (2:50-3:10pm)
--- NOTE | 2023-10-20 15:05 | CHAPLAIN ---
Nilam was resting in bed when visited. She told me she is originally from [place], but lived in [place] and [place] before being placed in a facility. She said her daughter, who lives in [place], drove to [place] to bring her back up here where she lived with someone she considers a granddaughter, but isn't really related. The granddaughter has said she can no longer care for Nilam. Nilam said her daughter is coming over today to talk with her about where she can live. According to Care Management notes, Nilam's daughter lives in a motel in [place]. So, Nilam said she has a lot on her mind about where she will be going from there, and where she can live.
[2023-10-20] MEDS: Ibuprofen 400 MG TAB PO (16:00)
[2023-10-20] MEDS: Furosemide 20 MG/2 ML VIAL 40 MG IVP (16:01)
[2023-10-20 16:26] LABS: Bilirubin Negative (Negative); Blood Large (Negative); Clarity Turbid (Clear); Glucose 500 mg/dL (Negative); Ketones Trace mg/dL (Negative); Leukocyte Esterase Small (Negative); Nitrite Negative (Negative); Urobilinogen 0.2 mg/dL (Up to 0.2); pH 5.5 (5-8)
[2023-10-20 16:36] LABS: C & S Indicated? No/Sq. Contamination; Epithelial Cells Many HPF (Negative); RBC 20-50 HPF (0-2); WBC >50 HPF (0-5)
[2023-10-20 16:46] LABS: BE (Venous) 6 mmol/L (-2-3); HCO3 (Venous) 29 mmol/L (23-28); O2 Sat (Venous) 91 %; TCO2 (Venous) 26 mmol/L (24-29); pCO2 (Venous) 39 mmHg (41-51); pH (Venous) 7.49 (7.31-7.41); pO2 (Venous) 55 mmHg
[2023-10-20] MEDS: Enoxaparin 40 MG/0.4 ML SYR SC (17:58)
--- NOTE | 2023-10-20 18:26 | PDOC.CMPRO ---
Date of service: 10/20/23 Time of Service: 18:26 Care Management Progress Note Progress Note Text Progress Note Text: S/O: Nilam was sleeping when CM attempted to meet with her. Per report, she has not been sleeping well at night, and has been tired today. She was seen by podiatry today who recommend continued medical management; no surgical intervention is planned at this time. She is on IV antibiotics and her WBC remains high today at 20.26. Admissions from the [facility] contacted CM and reported that they can offer Nilam a short term rehab bed, but not until Tuesday10/25/23. She is not medically cleared at this time, and per report, her IV antibiotic course is unclear at this time, but may be prolonged. CM will continue to follow. A:73 year old admitted to [facility] 10/16/23 for Sepsis, diabetic foot infection, DKA P:Nilam's discharge plan will be determined after the course of IV antibiotic therapy is known. If she requires oysterman IV abx, she may require SWB through the duration of the therapy. If she is able to be transitioned to oral abx, she will transfer to the [facility] for short term rehab, pending insurance PA. She will likely transport via [facility] w/c van. She will follow up with her PCP and discharge plan of care. CM will continue to follow. SDOH(Care Management) Screening Will the Patient Participate in the Screening?: Unable to obtain
[2023-10-20] MEDS: Insulin Glargine 300 UNITS/3 ML PEN 25 UNITS SC (20:13)
[2023-10-20] MEDS: Normal Saline 500 ML 30 ML IV (20:18)
[2023-10-21] MEDS: IMIPENEM/CILASTATIN 500 MG in Normal Saline 100 ML 200 MG IVPB ×4 (00:13→23:04)
[2023-10-21] MEDS: Nystatin POWDER 15 GM JAR TP ×3 (00:13→21:30)
[2023-10-21 03:34] VITALS: BP 130/78; PULSE 76; RESP 18; TEMP 35.7; O2SAT 91
[2023-10-21] MEDS: Levothyroxine 150 MCG TAB PO (05:26)
[2023-10-21 07:15] LABS: HCT 36.1 % (36.0-46.0); HGB 11.5 g/dL (11.2-15.7); MCH 25.5 pg (27.0-33.0); MCHC 31.9 % (32.0-36.0); MCV 80 fL (80-95); Platelet Count 304 10^3/uL (130-400); RBC 4.51 10^6/uL (3.93-5.22); RDW 15.7 % (11.7-14.6); RDW-SD 45.1 fL; WBC 19.71 10^3/uL (4.4-10.8)
[2023-10-21 07:26] LABS: Anion Gap 7.8 mmol/L (3-11); BUN 20 mg/dL (7-18); CO2 31.2 mmol/L (21.0-32.0); CREATININE 1.1 mg/dL (0.55-1.02); Calcium 8.9 mg/dL (8.5-10.1); Chloride 91 mmol/L (98-107); Estimated GFR 52.73 (mL/min/1.73m2); Glucose 257 mg/dL (74-106); Potassium 3.6 mmol/L (3.5-5.1); Sodium 130 mmol/L (136-145)
[2023-10-21 07:36] LABS: C-Reactive Protein > 25.00 mg/dL (<or=0.5)
[2023-10-21 07:38] VITALS: BP 140/71; PULSE 82; RESP 16; TEMP 36.7; O2SAT 93
[2023-10-21] MEDS: Pantoprazole 40 MG TABCR PO (07:50)
[2023-10-21] MEDS: Furosemide 20 MG/2 ML VIAL 40 MG IVP ×2 (08:01→16:35)
[2023-10-21] MEDS: Normal Saline Flush 10 ML SYR IVP ×3 (08:01→21:13)
--- NOTE | 2023-10-21 09:05 | CMPROGNOTE_ITS ---
Date of service: 10/21/23 Time of Service: 09:05 Care Management Progress Note Progress Note Text Progress Note Text: S/O: Nilam was sitting in the recliner watching TV when CM met with her. She is awake and easily engages in conversation. She has a STR bed offer at the [facility] on Tuesday, if she is able to transition to PO abx, which per M.D is likely otherwise she will need to stay at [facility] until her IV ABX course is complete. Nilam verbalizes understanding of these discharge conciderations. Podiatry recommends continued medical management; no surgical intervention is planned at this time. CM will continue to follow. A:73 year old admitted to [facility] 10/16/23 for Sepsis, diabetic foot infection, DKA P:Nilam's discharge plan will be determined after the course of IV antibiotic therapy is known. If she requires terminal computer operator IV abx, she may require SWB through the duration of the therapy. If she is able to be transitioned to oral abx, she will transfer to the [facility] for short term rehab, pending insurance PA. She will likely transport via [facility] w/c van. She will follow up with community providers and discharge plan of care. CM will continue to follow. SDOH(Care Management) Screening Will the Patient Participate in the Screening?: Unable to obtain
[2023-10-21] MEDS: LINEZOLID 600 MG/300 ML BAG 300 MG IVPB ×2 (09:10→20:39)
[2023-10-21] MEDS: Gabapentin 300 MG CAP PO ×3 (09:11→20:38)
[2023-10-21] MEDS: Atorvastatin 40 MG TAB PO (09:11)
[2023-10-21] MEDS: Acetaminophen 500 MG TAB 1000 MG PO ×3 (09:11→20:38)
[2023-10-21] MEDS: Ferrous Sulfate 325 MG TAB PO (09:11)
[2023-10-21] MEDS: Potassium Chloride 20 MEQ TABCR PO ×2 (09:11→20:39)
[2023-10-21] MEDS: Docusate Sodium 100 MG CAP PO (09:11)
[2023-10-21] MEDS: Insulin Aspart 300 UNITS/3 ML PEN SC ×7 (09:14→21:09)
[2023-10-21] MEDS: Insulin Glargine 300 UNITS/3 ML PEN 10 UNITS SC (09:17)
--- NOTE | 2023-10-21 10:22 | PTTR_ITS ---
PT Notes Visit Reasons: Cellulitis, Diabetic Foot Wound, DKA Date: 10/21/23 PRECAUTIONS: Fall. Standard. Activity as tolerated. Contact precautions SUBJECTIVE: pt taking her antibiotic dose via IV, not able to go too far from the bed since pt crump catheter has been replaced with PureWick external catheter. Objective: taking Antibiotic dose on IV line, PureWick external catheter. Therapeutic Activities 83967: Direct one-on-one instruction in dynamic activities to improve functional performance. ?? BED MOBILITY/TRANSFERS? Rolling L/R: min A Supine-sit: min A ? Sit-supine: ?min A ? Sit-stand: ? CGA? Stand-sit: ?? CGA ? Bed-Chair:? ? not performed? Chair-bed: not performed Provided skilled cues and instruction on performance and technique throughout. Gait Training 51378: Direct one-on-one instruction and skilled instruction in: Employing an assistive device Modified weight-bearing status Movement sequencing Turning and movement with proper form Provided verbal cues for equipment management and technique Provided instruction in gait pattern Patient education regarding pacing and breathing techniques to maximize activity tolerance? GAIT? Assistive Device: ?? FWW? Weight bearing: WBAT Assist: ?CGA ? Distance:?? ?40'x2 seated rest break in between ? Deviation: ? Slow jonathan, low step height, short step length, stoop forward position ? Therapeutic Exercises 84693: Direct one-on-one instruction in therapeutic exercises to develop strength, endurance, range of motion and flexibility.? Provided skilled instruction in proper exercise performance Provided skilled manual cues to facilitate proper muscle recruitment and/or form: Exercises - Supine SLR - 1 x daily - 7 x weekly - 1 sets - 10 reps - Supine hip abduction - 1 x daily - 7 x weekly - 1 sets - 10 reps - Supine heel slides - 1 x daily - 7 x weekly - 1 sets - 10 reps - Supine clamshells - 1 x daily - 7 x weekly - 1 sets - 10 reps - Seated Hip Flexion - 1 x daily - 7 x weekly - 1 sets - 10 reps - Seated Long Arc Quad - 1 x daily - 7 x weekly - 1 sets - 10 reps - Seated Hip Abduction - 1 x daily - 7 x weekly - 1 sets - 10 reps - Seated Heel Raise - 1 x daily - 7 x weekly - 1 sets - 10 reps - Seated Toe Raise - 1 x daily - 7 x weekly - 1 sets - 10 reps - Sit to Stand - 1 x daily - 7 x weekly - 1 sets - 10 reps Assessment: pt gait very limited by IV line and wall catheter will walk more this afternoon after pt finishes her antibiotic dose. pt able to go around the perimeter of pt room and outside halllway, requested to stay in recliner after gait training. PLAN: Continue with balance training, global strengthening and general conditioning for improved safety, mobility and activity tolerance until pt is ready for DC. TREATMENT CODE/TIME: [id number] 25mins (9:55-10:20am) [id number] 30mins (1:20- 1:50pm)
--- NOTE | 2023-10-21 11:49 | PGE_ITS ---
Date of Service Date of service: 10/21/23 Time of Service: 11:49 Assessment and Plan Assessment and plan (1) Diabetic foot infection: Status: Acute Assessment and plan: -Had initially been on Zosyn and vancomycin for 3 days -MRI did not show any abscess or any osteomyelitis -While there is infection of the skin, she does not have any deep abscess that requires any operation to debride. -agree w/ Dr. Castellano that just local debridement along w/ chemical debridement should suffice for now and since patient respiratory status is tenous, she would not be good surgical candidate. -Once she is over her UTI and her respiratory status has improved, if she were to need an operation for debridement of her foot, then we could re-explore that approach. 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 -continue novolog resistant scale during the day for elevated glucose and insulin senstive for at bedtime, basal insulin Lantus 25 units at HS and 10 units qam, and Novolog coverage for CHO intake (1:10) Qualifiers: Diabetes mellitus type: type 2 Diabetes mellitus complication detail: without coma Qualified Code(s): E11.10 - Type 2 diabetes mellitus with ketoacidosis without coma (3) Poorly controlled type 2 diabetes mellitus with peripheral neuropathy: Status: Acute Assessment and plan: -Last glycohemoglobin 11.4% as of 09/05/2023, see above for current insulin regimen (4) DVT prophylaxis: Status: Acute Assessment and plan: -Enoxaparin 40 mg subcutaneous daily (5) Pleural effusion, left: Status: Acute Assessment and plan: -patient appears to be volume overloaded w/ bilateral leg edema, left pleural effusion, she has moist cough; BNP was elevated this admission, will check echo (has none on file) to evaluate LV and RV function, -had required 1-2L NC but has since been transtioned to RA -required additional dose of lasix on 10/19 due to increase HR and CXR showing pleural effusion and pulmonary edema, much improved on am 10/20 -TTE showed the following; Mild concentric left ventricular hypertrophy. Ejection fraction is 50%. Septal motion is somewhat paradoxic Normal right ventricular size and function Both atria are normal in size Mild mitral annular calcification Estimated right ventricular systolic pressure is 34 mmHg Dilated ascending aorta 4.21 cm Subjective Subjective Interval history since last seen: Patient is much more awake and alert today as compared to previous days, and states that she is feeling better. She understands the plan to continue IV antibiotics at this time, and has no other complaints or concerns. Exam Narrative Exam Narrative: Chronically ill-appearing older female laying in bed in no acute distress, ANO x 4, heart regular rate rhythm, lungs clear to auscultation bilaterally, right foot wrapped in bandage, please see podiatry note for further details Objective Last Vital Signs Temp 98.1 F 10/21/23 07:38 Pulse 82 10/21/23 07:38 Resp 16 10/21/23 07:38 BP 140/71 10/21/23 07:38 Pulse Ox 93 10/21/23 07:38 Laboratory Results - last 24 hr 10/20/23 10/20/23 10/21/23 14:30 16:35 07:00 WBC 19.71 H RBC 4.51 Hgb 11.5 Hct 36.1 MCV 80 MCH 25.5 L MCHC 31.9 L RDW 15.7 H Plt Count 304 MPV 9.0 VBG pH 7.49 H VBG pCO2 39 L VBG pO2 55 VBG HCO3 29 H VBG Total CO2 26 VBG O2 Saturation 91 VBG Base Excess 6 H Sodium 130 L Potassium 3.6 Chloride 91 L Carbon Dioxide 31.2 Anion Gap 7.8 BUN 20 H Creatinine 1.1 H Est GFR (CKD-EPI 2020) 52.73 Glucose 257 H Calcium 8.9 C-Reactive Protein > 25.00 H Urine Color Yellow Urine Clarity Turbid Urine pH 5.5 Ur Specific [place] 1.020 Urine Protein >=300 H Urine Ketones Trace H Urine Blood Large H Urine Nitrite Negative Urine Bilirubin Negative Urine Urobilinogen 0.2 Ur Leukocyte Esterase Small H Urine RBC 20-50 H Urine WBC >50 H Ur Epithelial Cells Many Urine Crystals Not Applicable Urine Bacteria Not Applicable Urine Mucus Not Applicable Urine Other Many Yeast Ur Culture Indicated? No/Sq. Contamination Urine Glucose 500 H Time Spent with Patient Time Spent with Patient: >50 minutes Time was spent: preparing to see the patient(eg.review tests), obtaining and/or reviewing separately otained hiistory, ordering medications,tests, procedures, referring, communicating with other health neonatal critical care nurse, indepentently interpreting results, counseling the patient and care coordination
--- NOTE | 2023-10-21 12:57 | W.SPSTE ---
Date of service: 10/21/23 Time of Service: 12:57 Subjective Clinical (Bedside) Swallow Evaluation - Inpatient Speech Language Pathology Referred by: James Reed MD Start time: 12:00 End time: 12:26 Total patient contact: 26min Referral Type: Routine Swallow Consult Precautions: Contact, Fall, DNR/DNI Reason for Referral/HPI: Nilam is a 73 y/o F with DM2,previous CVA, CHF, admitted due to uncontrolled nausea and vomiting and uncontrolled blood sugars, found with diabetic ketoacidoses, UTI, pleural effusion and volume overloaded and also diabetic foot infection without osteomyelitis. Nursing noted difficulty and persistent coughing while swallowing pills and liquids this morning and ASSISTANT PLANT CONTROLLER consult placed. ASSISTANT PLANT CONTROLLER IMPRESSIONS & RECOMMENDATIONS: Patient appears with mild oropharyngeal dysphagia in setting of prior CVA and likely exacerbated by poor respiratory status and overall fatigue with poor medical status at this time. She demonstrates reduced mastication abilities in setting of edentulousness with ill-fitting dentures, as well as difficulty coordinating mixed textures (e.g., liquids/solids simultaneously). She appears to tolerate thin liquids in isolation quite well with spontaneous slow rate/single sips, but with some mild coughing when going back and forth frequently between liquids and solids during meal. This is consistent with report of coughing this morning while taking large quantities of pills all at once with large sips of water. In addition, she appears with significant difficulty masticating more tough/crunchy foods such as cucumber, pepper, and some increased work of breathing during meal than at baseline. No focal weakness was noted on oral-motor mechanism, but some global oral-motor weakness and discoordination was noted. Volitional swallow was very timely to palpation but suspect mild reduced laryngeal movement. Patient will benefit from diet modification to reduce work of breathing and in light of poor mastication. Additional precautions are listed in recommendations below. FURTHER INPATIENT ASSISTANT PLANT CONTROLLER SERVICES: Patient to be followed while on unit - via check-in with nursing, ASSISTANT PLANT CONTROLLER will re-contact patient PRN if further concerns noted by nursing. DISCHARGE RECOMMENDATIONS: Anticipate no further ASSISTANT PLANT CONTROLLER services indicated Diet Recommendations: ? SOLIDS: 6-Soft & Bite-Sized Solids - Extra sauces & gravy No mixed textures LIQUIDS: 0-Thin Liquids MEDICATIONS: Whole With 4-Purees Alter medications only as advised by MD or Pharmacist RISK MANAGEMENT: Level of Assistance/Supervision: Provide set-up assist with initial verbal reminders for aspiration precautions as below Intermittent supervision for all PO intake Positioning and environment: PO intake only when awake/alert? Reduce auditory and/or visual distractions when eating [place] upright for all PO intake. Oral hygiene BID/2x per day Using friction with toothbrush on all oral structures as tolerated Remove and clean dentures daily Strategies/Adaptations/Assistive Equipment: Small sips Small bites Slow rate of intake Reflux Precautions: Maintain fully upright position at least 30 minutes after meals Avoid meals/snacks 2-3 hours prior to reclining/sleeping Sleep with head of bed elevated to reduce likelihood of nocturnal reflux Education Provided to: Nursing Patient Topics Addressed: anatomy/physiology of swallowing mechanism definition and impacts of aspiration impact of current diagnoses on swallow function role of ASSISTANT PLANT CONTROLLER in management of swallow disorders overt s/sx to monitor for re: potential aspiration of food / liquids relationship between respiratory function and deglutition rationale and instruction for additional risk management strategies as below SUBJECTIVE: Patient received: alert/awake. Agreeable to evaluation. Pain Reported 0 Baseline Swallow Function: Patient reports some difficulty with swallowing (occasional coughing) at baseline since CVA, but much improved since initial recovery period. She eats soft/bite size foods at baseline due to difficulty biting/chewing tough foods using dentures. OBJECTIVE Patient positioning: As upright as possible using HOB/bed tilt controls Oral care: Reported recently completed Respiratory status: Room air tolerates well at baseline, appears with slight increase in WOB during mastication/self-feeding Oral Mechanism Examination: Dentition: Edentulous Full dentures Oral mucosa: Dry ? Cranial Nerve Assessment: Mild global weakness, no focal deficits or asymmetries noted PO Intake: Trials Assessed: IDDSI 0 Thin Liquids IDDSI 4 Puree Solid IDDSI 6 Soft & Bite Size Solid IDDSI 7 Regular Solid Oral Phase Findings: Difficulty chewing Open mouth posture while chewing (?SOB) Pharyngeal Phase Findings: Suspect Reduced hyolaryngeal elevation/excursion Cough after swallow (mild, 2 of 10 trials Esophageal Phase Findings: ? No observed or reported symptoms at bedside ? [place] Swallow Protocol Results: FAIL ? Unable to complete without stopping/starting Goals: Skilled Nursing Goals: Patient will remain free from aspiration-related illness, malnutrition, and dehydration. Short Term Goals: Patient will tolerate Small/Bite Size Diet and Thin liquids per nursing report across 2 meals.
[2023-10-21 14:57] VITALS: BP 119/103; PULSE 82; RESP 17; TEMP 37.1; O2SAT 94
[2023-10-21] MEDS: Enoxaparin 40 MG/0.4 ML SYR SC (17:18)
[2023-10-21] MEDS: Polyethylene Glycol 3350 17 GM PACKET PO (21:08)
[2023-10-21] MEDS: Insulin Glargine 300 UNITS/3 ML PEN 25 UNITS SC (21:12)
[2023-10-21 22:45] VITALS: BP 135/78; PULSE 80; RESP 17; TEMP 36.6; O2SAT 92
[2023-10-22] MEDS: Levothyroxine 150 MCG TAB PO (06:31)
[2023-10-22 07:06] LABS: Anion Gap 6.7 mmol/L (3-11); BUN 17 mg/dL (7-18); CO2 30.3 mmol/L (21.0-32.0); CREATININE 1.3 mg/dL (0.55-1.02); Calcium 8.4 mg/dL (8.5-10.1); Chloride 90 mmol/L (98-107); Estimated GFR 43.15 (mL/min/1.73m2); Glucose 256 mg/dL (74-106); Potassium 4.2 mmol/L (3.5-5.1); Sodium 127 mmol/L (136-145)
[2023-10-22 07:08] LABS: HCT 35.2 % (36.0-46.0); HGB 11.3 g/dL (11.2-15.7); MCH 25.6 pg (27.0-33.0); MCHC 32.1 % (32.0-36.0); MCV 80 fL (80-95); Platelet Count 355 10^3/uL (130-400); RBC 4.41 10^6/uL (3.93-5.22); RDW 15.5 % (11.7-14.6); WBC 18.49 10^3/uL (4.4-10.8)
[2023-10-22 07:24] VITALS: BP 148/80; PULSE 82; RESP 16; TEMP 36.7; O2SAT 92
[2023-10-22] MEDS: Atorvastatin 40 MG TAB PO (07:37)
[2023-10-22] MEDS: Pantoprazole 40 MG TABCR PO (07:38)
[2023-10-22] MEDS: Gabapentin 300 MG CAP PO ×3 (07:38→19:58)
[2023-10-22] MEDS: Furosemide 20 MG/2 ML VIAL 40 MG IVP ×2 (07:38→16:21)
[2023-10-22] MEDS: Acetaminophen 500 MG TAB 1000 MG PO ×3 (07:38→19:58)
[2023-10-22] MEDS: Docusate Sodium 100 MG CAP PO (07:38)
[2023-10-22] MEDS: Ferrous Sulfate 325 MG TAB PO (07:38)
[2023-10-22] MEDS: Potassium Chloride 20 MEQ TABCR PO ×2 (07:38→19:58)
[2023-10-22] MEDS: IMIPENEM/CILASTATIN 500 MG in Normal Saline 100 ML 200 MG IVPB ×2 (07:39→16:56)
[2023-10-22] MEDS: Normal Saline Flush 10 ML SYR IVP ×2 (07:39→19:59)
[2023-10-22] MEDS: Nystatin POWDER 15 GM JAR TP ×2 (07:40→19:59)
[2023-10-22] MEDS: Insulin Aspart 300 UNITS/3 ML PEN SC ×6 (09:22→21:41)
[2023-10-22] MEDS: Insulin Glargine 300 UNITS/3 ML PEN 10 UNITS SC (09:25)
--- NOTE | 2023-10-22 09:39 | PGE_ITS ---
Date of Service Date of service: 10/22/23 Time of Service: 09:39 Assessment and Plan Assessment and plan (1) Diabetic foot infection: Status: Acute Assessment and plan: -Had initially been on Zosyn and vancomycin for 3 days -MRI did not show any abscess or any osteomyelitis -While there is infection of the skin, she does not have any deep abscess that requires any operation to debride. -agree w/ Dr. Castellano that just local debridement along w/ chemical debridement should suffice for now and since patient respiratory status is tenous, she would not be good surgical candidate. -Once she is over her UTI and her respiratory status has improved, if she were to need an operation for debridement of her foot, then we could re-explore that approach. 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 -continue novolog resistant scale during the day for elevated glucose and insulin senstive for at bedtime, basal insulin Lantus 25 units at HS and 10 units qam, and Novolog coverage for CHO intake (1:10) Qualifiers: Diabetes mellitus type: type 2 Diabetes mellitus complication detail: without coma Qualified Code(s): E11.10 - Type 2 diabetes mellitus with ketoacidosis without coma (3) Poorly controlled type 2 diabetes mellitus with peripheral neuropathy: Status: Acute Assessment and plan: -Last glycohemoglobin 11.4% as of 09/05/2023, see above for current insulin regimen (4) DVT prophylaxis: Status: Acute Assessment and plan: -Enoxaparin 40 mg subcutaneous daily (5) Pleural effusion, left: Status: Acute Assessment and plan: -patient appears to be volume overloaded w/ bilateral leg edema, left pleural effusion, she has moist cough; BNP was elevated this admission, will check echo (has none on file) to evaluate LV and RV function, -had required 1-2L NC but has since been transtioned to RA -required additional dose of lasix on 10/19 due to increase HR and CXR showing pleural effusion and pulmonary edema, much improved on am 10/20 -TTE showed the following; Mild concentric left ventricular hypertrophy. Ejection fraction is 50%. Septal motion is somewhat paradoxic Normal right ventricular size and function Both atria are normal in size Mild mitral annular calcification Estimated right ventricular systolic pressure is 34 mmHg Dilated ascending aorta 4.21 cm Subjective Subjective Interval history since last seen: Patient states that she is again doing well this morning. She understands that she is improving with plan for her to discharge to subacute rehab on Tuesday. Otherwise she has no other complaints or concerns at this time. Exam Narrative Exam Narrative: Chronically ill-appearing older female laying in bed in no acute distress, ANO x 4, heart regular rate rhythm, lungs clear to auscultation bilaterally, right foot wrapped in bandage, please see podiatry note for further details Objective Last Vital Signs Temp 98.1 F 10/22/23 07:24 Pulse 82 10/22/23 07:24 Resp 16 10/22/23 07:24 BP 148/80 H 10/22/23 07:24 Pulse Ox 92 10/22/23 07:24 Laboratory Results - last 24 hr 10/22/23 10/22/23 06:02 06:53 WBC 18.49 H RBC 4.41 Hgb 11.3 Hct 35.2 L MCV 80 MCH 25.6 L MCHC 32.1 RDW 15.5 H Plt Count 355 MPV 9.0 Sodium 127 L Potassium 4.2 Chloride 90 L Carbon Dioxide 30.3 Anion Gap 6.7 BUN 17 Creatinine 1.3 H Est GFR (CKD-EPI 2020) 43.15 Glucose 256 H Calcium 8.4 L Time Spent with Patient Time Spent with Patient: >50 minutes Time was spent: preparing to see the patient(eg.review tests), obtaining and/or reviewing separately otained hiistory, ordering medications,tests, procedures, referring, communicating with other health memory care program director, indepentently interpreting results, counseling the patient and care coordination
[2023-10-22] MEDS: LINEZOLID 600 MG/300 ML BAG 300 MG IVPB ×2 (10:59→21:43)
--- NOTE | 2023-10-22 11:30 | PT.INNT ---
PT Notes Visit Reasons: Cellulitis, Diabetic Foot Wound, DKA Pt refused today's session.
[2023-10-22] MEDS: Prochlorperazine 10 MG/2 ML VIAL 5 MG IVP (13:49)
[2023-10-22] MEDS: Enoxaparin 40 MG/0.4 ML SYR SC (17:42)
[2023-10-22 20:26] VITALS: TEMP 38.3
[2023-10-22] MEDS: Insulin Glargine 300 UNITS/3 ML PEN 25 UNITS SC (21:42)
[2023-10-22 22:28] VITALS: BP 135/72; PULSE 96; RESP 16; TEMP 38; O2SAT 89
--- NOTE | 2023-10-22 23:11 | DI.RAD_ITS ---
Exam(s) XR PORTABLE CHEST AP EXAM: XR PORTABLE CHEST AP CLINICAL HISTORY: oxygen requirement, fever TECHNIQUE: 2D digital imaging was performed. COMPARISON: CR XR PORTABLE CHEST AP from 10/20/2023 FINDINGS: The exam is extremely limited due to under penetration. The cardiac silhouette also obscures the le ft lower lobe. LUNGS: Pulmonary vascular prominence increasing from prior which could indicate worsening of CHF. HEART: Enlarged. AORTA: Normal diameter. BONES: Spine is obscured. Soft tissues: Unremarkable. IMPRESSION: Worsening pulmonary vascular prominence and mild pulmonary edema. DATA REPOSITORY: RADIATION DOSE DELIVERED:
--- NOTE | 2023-10-22 23:58 | DI.VRAD_ITS ---
PROCEDURE INFORMATION: Exam: XR Chest Exam date and time: 10/22/2023 23:05 Age: 73 years old Clinical indication: Other: Oxygen requirement, fever TECHNIQUE: Imaging protocol: Radiologic exam of the chest. Views: 1 view. COMPARISON: CR XR PORTABLE CHEST AP 10/20/2023 13:55 FINDINGS: Lungs: Probable interstitial edema has worsened. No minor airspace consolidation on portable imaging with suboptimal assessment of the left lung base. Pleural spaces: No pleural effusion. No pneumothorax. Heart/Mediastinum: Moderate cardiomegaly and moderate vascular congestion the latter slightly worsened. Bones/joints: No acute fracture. IMPRESSION: 1. Moderate cardiomegaly and moderate vascular congestion the latter slightly worsened. 2. Probable interstitial edema has worsened. Dictated and Authenticated by: Vanessa Dan MD. Ordering:ABIGAIL Jiang MD
[2023-10-23] VITALS (9 sets, daily range): BP systolic 97–140; BP diastolic 62–76; PULSE 75–91; RESP 16–18; TEMP 36.8–38.1; O2SAT 92–98
[2023-10-23] MEDS: Normal Saline Flush 10 ML SYR IVP ×3 (00:22→20:30)
[2023-10-23] MEDS: IMIPENEM/CILASTATIN 500 MG in Normal Saline 100 ML 200 MG IVPB ×4 (00:23→23:59)
[2023-10-23] MEDS: Furosemide 40 MG/4 ML VIAL IVP (00:53)
[2023-10-23] MEDS: Levothyroxine 150 MCG TAB PO (05:39)
[2023-10-23 06:53] LABS: HCT 37.6 % (36.0-46.0); HGB 12.1 g/dL (11.2-15.7); MCH 25.4 pg (27.0-33.0); MCHC 32.2 % (32.0-36.0); MCV 79 fL (80-95); MPV 9.3 fL (8.0-11.0); Platelet Count 389 10^3/uL (130-400); RBC 4.76 10^6/uL (3.93-5.22); RDW 15.5 % (11.7-14.6); RDW-SD 44.4 fL; WBC 19.39 10^3/uL (4.4-10.8)
[2023-10-23 07:23] LABS: BUN 21 mg/dL (7-18); CREATININE 1.3 mg/dL (0.55-1.02); Calcium 8.7 mg/dL (8.5-10.1); Chloride 90 mmol/L (98-107); Estimated GFR 43.15 (mL/min/1.73m2); Glucose 282 mg/dL (74-106); Sodium 129 mmol/L (136-145)
--- NOTE | 2023-10-23 08:35 | PGE_ITS ---
Date of Service Date of service: 10/23/23 Time of Service: 08:36 Assessment and Plan Assessment and plan (1) Diabetic foot infection: Status: Acute Assessment and plan: -Had initially been on Zosyn and vancomycin for 3 days -MRI did not show any abscess or any osteomyelitis -While there is infection of the skin, she does not have any deep abscess that requires any operation to debride. -agree w/ Dr. Castellano that just local debridement along w/ chemical debridement should suffice for now and since patient respiratory status is tenous, she would not be good surgical candidate. -Once she is over her UTI and her respiratory status has improved, if she were to need an operation for debridement of her foot, then we could re-explore that approach. 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 -continue novolog resistant scale during the day for elevated glucose and insulin senstive for at bedtime, basal insulin Lantus 25 units at HS and 10 units qam, and Novolog coverage for CHO intake (1:10) Qualifiers: Diabetes mellitus type: type 2 Diabetes mellitus complication detail: without coma Qualified Code(s): E11.10 - Type 2 diabetes mellitus with ketoacidosis without coma (3) Poorly controlled type 2 diabetes mellitus with peripheral neuropathy: Status: Acute Assessment and plan: -Last glycohemoglobin 11.4% as of 09/05/2023, see above for current insulin regimen (4) DVT prophylaxis: Status: Acute Assessment and plan: -Enoxaparin 40 mg subcutaneous daily (5) Pleural effusion, left: Status: Acute Assessment and plan: -patient appears to be volume overloaded w/ bilateral leg edema, left pleural effusion, she has moist cough; BNP was elevated this admission, will check echo (has none on file) to evaluate LV and RV function, -had required 1-2L NC but has since been transtioned to RA -required additional dose of lasix on 10/19 due to increase HR and CXR showing pleural effusion and pulmonary edema, much improved on am 5 -TTE showed the following; Mild concentric left ventricular hypertrophy. Ejection fraction is 50%. Septal motion is somewhat paradoxic Normal right ventricular size and function Both atria are normal in size Mild mitral annular calcification Estimated right ventricular systolic pressure is 34 mmHg Dilated ascending aorta 4.21 cm Subjective Subjective Interval history since last seen: Patient continues to state that she is doing well and understands that she will likely be discharged to tomorrow, Tuesday10/23/2022. Exam Narrative Exam Narrative: Chronically ill-appearing older female laying in bed in no acute distress, ANO x 4, heart regular rate rhythm, lungs clear to auscultation bilaterally, right foot wrapped in bandage, please see podiatry note for further details Objective Last Vital Signs Temp 99.0 F 10/23/23 08:22 Pulse 91 H 10/23/23 08:22 Resp 17 10/23/23 08:22 BP 140/73 10/23/23 08:22 Pulse Ox 93 10/23/23 08:22 Laboratory Results - last 24 hr 10/23/23 06:38 WBC 19.39 H RBC 4.76 Hgb 12.1 Hct 37.6 MCV 79 L MCH 25.4 L MCHC 32.2 RDW 15.5 H Plt Count 389 MPV 9.3 Sodium 129 L Potassium 4.0 Chloride 90 L Carbon Dioxide 32.0 Anion Gap 7.0 BUN 21 H Creatinine 1.3 H Est GFR (CKD-EPI 2020) 43.15 Glucose 282 H Calcium 8.7 Time Spent with Patient Time Spent with Patient: >50 minutes Time was spent: preparing to see the patient(eg.review tests), obtaining and/or reviewing separately otained hiistory, ordering medications,tests, procedures, referring, communicating with other health healthcare consultant, indepentently interpreting results, counseling the patient and care coordination
[2023-10-23] MEDS: Acetaminophen 500 MG TAB 1000 MG PO ×3 (09:13→20:27)
[2023-10-23] MEDS: Potassium Chloride 20 MEQ TABCR PO ×2 (09:13→20:30)
[2023-10-23] MEDS: Furosemide 20 MG/2 ML VIAL 40 MG IVP ×2 (09:14→15:35)
[2023-10-23] MEDS: Gabapentin 300 MG CAP PO ×3 (09:14→20:28)
[2023-10-23] MEDS: Ferrous Sulfate 325 MG TAB PO (09:14)
[2023-10-23] MEDS: Nystatin POWDER 15 GM JAR TP ×2 (09:14→20:30)
[2023-10-23] MEDS: Pantoprazole 40 MG TABCR PO (09:14)
[2023-10-23] MEDS: Docusate Sodium 100 MG CAP PO (09:14)
[2023-10-23] MEDS: Atorvastatin 40 MG TAB PO (09:14)
[2023-10-23] MEDS: Insulin Glargine 300 UNITS/3 ML PEN 15 UNITS SC (09:17)
[2023-10-23] MEDS: Insulin Aspart 300 UNITS/3 ML PEN SC ×7 (09:18→20:28)
--- NOTE | 2023-10-23 10:23 | PT.INTREAT ---
PT Notes Visit Reasons: Cellulitis, Diabetic Foot Wound, DKA Inpatient Physical Therapy Treatment Note [facility] Date: [] PRECAUTIONS:[] SUBJECTIVE: [] OBJECTIVE: []? PAIN: [] VITALS: ? Pre-Treatment: [] ? Post-Treatment: []? Therapeutic Activities (33266h[]): Direct one-on-one instruction in dynamic activities to improve functional performance. ? BED MOBILITY/TRANSFERS? Rolling L/R: [] Supine-sit: []? Sit-supine: [] ? Sit-stand: []? Stand-sit: [] ? Bed-Chair: [] ? Chair-bed: [] Provided skilled cues and instruction on performance and technique throughout. Gait Training (43581w[]): Direct one-on-one instruction and skilled instruction in: [] employing an assistive device [] modified weight-bearing status [] movement sequencing [] turning and movement with proper form [] Provided verbal cues for equipment management and technique [] Provided instruction in gait pattern [] Patient education regarding pacing and breathing techniques to maximize activity tolerance? GAIT? Assistive Device: []? Weight bearing: [] Assist: [] ? Distance:? [] ? Deviation: [] ? STAIRS:[] ? Therapeutic Exercises (25833d[]): Direct one-on-one instruction in therapeutic exercises to develop strength, endurance, range of motion and flexibility. ? Exercises ? [] Ambulation ? Assistive Device: []? Weight bearing: [] Assist: [] ? Distance:? [] ? Deviation: [] ? Provided skilled instruction in proper exercise performance Provided skilled manual cues to facilitate proper muscle recruitment and/or form: [] Neuromuscular Re-education (81525m[]): Activities that facilitate re-education of movement balance, posture, coordination, and proprioception or kinesthetic sense, requiring skilled tactile and verbal cues ? Exercises/techniques: ? [] ASSESSMENT:? [] PLAN: [] TREATMENT CODE/TIME: []
--- NOTE | 2023-10-23 10:31 | PT.INNT ---
PT Notes Visit Reasons: Cellulitis, Diabetic Foot Wound, DKA Pt refused today's session she reports that she does not feel well.
[2023-10-23] MEDS: LINEZOLID 600 MG/300 ML BAG 300 MG IVPB ×2 (11:31→22:24)
[2023-10-23] MEDS: Enoxaparin 40 MG/0.4 ML SYR SC (18:11)
[2023-10-23] MEDS: Insulin Glargine 300 UNITS/3 ML PEN 25 UNITS SC (20:29)
[2023-10-24] VITALS (21 sets, daily range): BP systolic 90–158; BP diastolic 58–101; PULSE 78–133; RESP 10–30; TEMP 36.1–39.5; O2SAT 90–97
--- NOTE | 2023-10-24 | DI.CT_ITS ---
Exam(s) CT CHEST PE CTA EXAM: CT CHEST PE CTA CLINICAL HISTORY: sudden SOB/tachycardia. TECHNIQUE: Imaging Protocol: Axial CT angiography was performed with multi-slice acquisition and mu lti-planar reconstructions as well as axial, coronal and sagittal MIP reconstructions. CONTRAST MATERIAL: Intravenous: Omnipaque 350 Contrast volume:100 ml COMPARISON: CR,XR XR PORTABLE CHEST AP from 10/24/2023 FINDINGS: Pulmonary Arteries: No evidence of filling defect to suggest pulmonary emboli. Tracheobronchial tree: Some layering debris noted in trachea. Mediastinum and Karina: No dominant adenopathy or fluid collection. Pulmonary parenchyma: Evaluation somewhat limited by respiratory motion. Left basilar atelectasis ve rsus infiltrate. Right lung appears grossly clear. Pleura: No effusion or pneumothorax. Heart: The heart is moderately dilated. No coronary artery calcifications are seen. Aorta: Ascending aorta measures 3.9 cm. Descending aorta measures 2.7 cm. Atherosclerotic plaque no santos in descending aorta. No dissection. Upper abdomen: No acute findings. Bones: Unremarkable for age. Tubes, Catheters, and Lines: None Soft tissues: Unremarkable. IMPRESSION: No evidence of pulmonary embolism. Left basilar infiltrate versus atelectasis. Lungs not well evaluated due to motion. RADIATION DOSE DELIVERED: 574.66mGy.cm Total DLP DATA REPOSITORY: All CT scans at this facility are submitted to the National Radiology Data Registry (NRDR) Dose Index Registry (DIR) with the [employer] ([employer]). RADIATION OPTIMIZATION: All CT scans at this facility use at least one of these dose optimization te chniques: automated exposure control; mA and/or kV adjustment per patient size (includes targeted exa ms where dose is matched to clinical indication); or iterative reconstruction.
--- NOTE | 2023-10-24 01:15 | DI.RAD_ITS ---
Exam(s) XR PORTABLE CHEST AP EXAM: XR PORTABLE CHEST AP CLINICAL HISTORY: sudden shortness of breath TECHNIQUE: 2D digital imaging was performed. COMPARISON: CT CT LUMBAR SPINE SI JOINTS WO from 09/04/2023 CR XR PORTABLE CHEST AP from 10/20/2023 CR,XR XR PORTABLE CHEST AP from 10/22/[address] CHEST PE CTA from 10/24/2023 FINDINGS: Exam is again extremely limited due to body habitus LUNGS: Grossly clear. No pleural abnormality seen. Prominent epicardial fat at the left heart borde r again noted. HEART: Normal enlarged, unchanged. Pulmonary vascular prominence again noted. AORTA: Normal diameter. BONES: Unremarkable for age. Soft tissues: Unremarkable. IMPRESSION: No acute findings. DATA REPOSITORY: RADIATION DOSE DELIVERED:
--- NOTE | 2023-10-24 01:30 | RT.EKG_ITS ---
APPROVED REPORT Exam: Resting ECG Reason for Exam: Sudden SOB Patient Location: I HR:133 bpm ECG Measurements Heart Rate 133 AXIS TN 97 P -48 QRSd 128 QRS -47 QT 369 T 99 QTc 549 Conclusion Sinus or ectopic atrial tachycardia...P axis (-45,135), rate> 99 Left bundle branch block...QRSd>120, broad/notched R
--- NOTE | 2023-10-24 01:50 | RESPIRATORY ---
RT was paged. Pt. was tachypneic at 30's with HR 130's, BBS clear and diminished, bronchodilar not indicated due to HR and BS, however administered 2L/min NC that seemed not helping RR and HR despite maintaing good SpO2. Ended up initiating BiPAP to relief SOB but had to terminate due to aspiration concern that pt. was starting to vomit. Diuretic agent was given by RN which helped with respiratory distress. BiPAP stand by at bedside. Pt. remained on 3L/min NC saturating mid 90's.
[2023-10-24] MEDS: Prochlorperazine 10 MG/2 ML VIAL 5 MG IVP (02:02)
[2023-10-24] MEDS: Furosemide 100 MG/10 ML VIAL 80 MG IVP (02:11)
--- NOTE | 2023-10-24 02:52 | W.EVENT ---
Date of service: 10/24/23 Time of Service: 02:52 Event Note: Patient noted to have become fairly suddenly short of breath. No CP. On exam BP 120s/sys, pulse 130/regular; RR approx 30, temp 39, O2 sats low-mid 90s 2L. Lungs rales left base; heart tachy/regular; calves without erythema, non-tender CXR: left pleural effusion, no change, continued vascular congestion mainly right; EKG regular tachycardia with visible P waves, sinus tach vs slow flutter A/P: Not entirely clear a present how to tie this all together. Certainly I think there may be an element of CHF and will trial dose Lasix 80 IVP. Possible there may be a primary SVT triggering and will trial dose Verapamil to see if we can elicit any underlying flutter waves (note that pulse has been locked in at 130). PE possible but less likely given that she is on DVT prophylaxis and exam not suggestive of DVT. Nevertheless will obtain CTA. How the fever fits in is not clear. She has been intermittently febrile for past 4 days and is on broad coverage with Linezolid and Meropenem for foot ulcer and UTI. Perhaps protected site, or possibly drug fever to be considered. Will obtain blood cxx. After Lasix having good, warm diuresis and appears more comfortable. Pulse rate is now slowing to low-mid 120s so I think SVT is now unlikely and will hold on trial Verapamil; perhaps this is effect of fever and has received 1000 APAP, will continue to monitor. Time Spent with Patient Time spent in critical care(minutes): 90 Time Spent Included: Coordination of care, Chart review, Documenting critically ill care, Time at immediate bedside, Discussing critically ill care with other medical staff and Other
--- NOTE | 2023-10-24 03:16 | DI.VRAD_ITS ---
PROCEDURE INFORMATION: Exam: XR Chest Exam date and time: 10/24/2023 1:40 AM Age: 73 years old Clinical indication: Patient HX: Sudden shortness of breath TECHNIQUE: Imaging protocol: Radiologic exam of the chest. Views: 1 view. COMPARISON: CR XR PORTABLE CHEST AP 10/22/2023 11:05 PM FINDINGS: Lungs: Improved interstitial prominence and/or edema. Pleural spaces: Unremarkable. No pleural effusion. No pneumothorax. Heart/Mediastinum: Stable cardiomegaly. Bones/joints: Unremarkable. IMPRESSION: Improved interstitial prominence and/or edema. Dictated and Authenticated by: Efraín Koch MD. Ordering:JUNG Kenny MD
[2023-10-24] MEDS: Normal Saline - Diluent 50 ML VIAL IJ (03:41)
[2023-10-24] MEDS: Omnipaque 350 MG/ML 100 ML BTL IJ (03:43)
[2023-10-24] MEDS: Normal Saline Flush 10 ML SYR IVP ×4 (04:19→20:31)
--- NOTE | 2023-10-24 05:15 | RESPIRATORY ---
0250: RT was paged. pt. was tachypneic at higher 20's with HR higher 120's, BBS clear and diminished, bronchodilator not indicated due to HR and BS, however administered 3L/min NC that seemed not helping RR and HR despite maintaing good SpO2. Ended up initiating BiPAP to relief SOB but had to terminate due to aspiration concern that pt. was starting to vomit. Diuretic agent was given by RN which helped with respiratory distress. BiPAP stand by at bedside, pt. remained on 3L/min NC saturating mid 90's. 0450: RT was paged. BBS clear and diminished. Pt. not responding or following commands however spontaneously breathing fine with normal vital signs. No respiratory distress noted, maintaining SpO2 above 92% on 3L/min. Blood gasses not appropriate based on Pt's code status. RN notified to page RT if pt. desats to administer HFNC system.
--- NOTE | 2023-10-24 05:35 | DI.VRAD_ITS ---
PROCEDURE INFORMATION: Exam: CTA Chest With Contrast Exam date and time: 10/24/2023 3:59 AM Age: 73 years old Clinical indication: Shortness of breath and other: Tachycardia; Patient HX: Tachycardia, sudden SOB TECHNIQUE: Imaging protocol: Computed tomographic angiography of the chest with contrast. Exam focused on the arteries. 3D rendering (Not supervised by radiologist): MIP and/or 3D reconstructed images were created by the technologist. Radiation optimization: All CT scans at this facility use at least one of these dose optimization techniques: automated exposure control; mA and/or kV adjustment per patient size (includes targeted exams where dose is matched to clinical indication); or iterative reconstruction. Contrast material: OMNIPAQUE 350; Contrast volume: 100 ml; Contrast route: INTRAVENOUS (IV); COMPARISON: CR XR PORTABLE CHEST AP 10/24/2023 1:40 AM FINDINGS: Pulmonary arteries: Prominence of the main pulmonary arteries, not reaching size criteria to suggest hypertension or aneurysm. Contrast bolus is well timed for adequate assessment of the pulmonary arteries, subsegmental arteries are limited in evaluation due to motion artifact at the bases. No evidence for pulmonary embolus. No secondary evidence of hemodynamically significant pulmonary embolus. Aorta: Gkdt-en-mphchhew calcified and noncalcified atherosclerotic disease of the visualized aorta and its major branches. Lungs: Lung shepherd are limited in evaluation due to motion. Yewm-olvaile-cnpt-right scattered atelectasis and/or scarring. Tree-in-bud nodularity of the left lower lobe at the base. Pleural spaces: Unremarkable. No pneumothorax. No pleural effusion. Heart: Unremarkable. No cardiomegaly. No pericardial effusion. Mediastinal space: Layering debris within the thoracic trachea. Lymph nodes: Unremarkable. No enlarged lymph nodes. Spleen: Splenule is noted. Bones/joints: Grgu-rz-ujukklvx scattered degenerative change of the visualized osseous structures. Soft tissues: Unremarkable. IMPRESSION: 1. Limited study as detailed above. No filling defect to suggest pulmonary embolus within the main, segmental arteries. Subsegmental arteries are not well assessed. 2. Tree-in-bud nodularity of the left lower lobe, tracheal debris. Findings suggest aspiration. Superimposed infection is not ruled out. 3. Additional findings as above. Dictated and Authenticated by: Mahendra Warner MD. Ordering:JUNG Kenny MD
[2023-10-24 06:48] LABS: Anion Gap 9.7 mmol/L (3-11); BUN 28 mg/dL (7-18); CO2 27.3 mmol/L (21.0-32.0); CREATININE 1.4 mg/dL (0.55-1.02); Calcium 8.3 mg/dL (8.5-10.1); Chloride 88 mmol/L (98-107); Estimated GFR 39.48 (mL/min/1.73m2); Glucose 281 mg/dL (74-106); Sodium 125 mmol/L (136-145)
[2023-10-24 06:50] LABS: HCT 35.3 % (36.0-46.0); HGB 11.6 g/dL (11.2-15.7); MCH 25.3 pg (27.0-33.0); MCHC 32.9 % (32.0-36.0); MCV 77 fL (80-95); MPV 9.2 fL (8.0-11.0); Platelet Count 426 10^3/uL (130-400); RBC 4.58 10^6/uL (3.93-5.22); RDW 15.7 % (11.7-14.6)
[2023-10-24 06:54] LABS: WBC 26.22 10^3/uL (4.4-10.8)
[2023-10-24] MEDS: Furosemide 20 MG/2 ML VIAL 40 MG IVP ×2 (08:44→16:50)
[2023-10-24] MEDS: IMIPENEM/CILASTATIN 500 MG in Normal Saline 100 ML 200 MG IVPB ×3 (08:45→23:42)
--- NOTE | 2023-10-24 09:07 | PT.INTREAT ---
PT Notes Visit Reasons: Cellulitis, Diabetic Foot Wound, DKA Date: 10/24/23 PRECAUTIONS: Fall. Standard. Activity as tolerated. Contact precautions SUBJECTIVE: pt in bed sleeping when approached for therapy this morning, Charge nurse and Speech therapist present during pt engagement, pt very lethargic could only stay awake for a few minutes before going back to sleep, pt able to respond to questions appropriately, aware of place and person confused with time and date remembers this therapist from last visit last Tuesday expressing she saw this therapist for a session yesterday which was not the case. Speech recommended not administer oral meds due to possibility of choking. Therapeutic Activities 47267: Direct one-on-one instruction in dynamic activities to improve functional performance. ?? BED MOBILITY/TRANSFERS? Rolling L/R: max A +2 Supine-sit: max A +2? Sit-supine: ?max A +2? Sit-stand: ? not performed ? Stand-sit: ?? not performed? Bed-Chair:? ? not performed ? Chair-bed: not performed Provided skilled cues and instruction on performance and technique throughout. Assessment: Pt provided assistance with bed mobility to allow Charge nurse to replace jazmin pads, gown change and dry up as much as possible pt back, rolling, upward movement in bed and half sitting position for pt repositioning to allow for Speech Therapist to work with pt. pt in and out of sleep the entire duration of session. ? PLAN: will resume with balance training, global strengthening, general conditioning for improved safety, mobility and activity tolerance as soon as pt condition improves. TREATMENT CODE/TIME: 89533t1 15mins (8:50-9:05am)
[2023-10-24] MEDS: Insulin Aspart 300 UNITS/3 ML PEN SC ×5 (09:43→20:28)
[2023-10-24] MEDS: Insulin Glargine 300 UNITS/3 ML PEN 15 UNITS SC (09:44)
[2023-10-24] MEDS: Nystatin POWDER 15 GM JAR TP ×2 (09:46→20:30)
[2023-10-24] MEDS: LINEZOLID 600 MG/300 ML BAG 300 MG IVPB ×2 (10:05→22:26)
--- NOTE | 2023-10-24 10:29 | PGE_ITS ---
Date of Service Date of service: 10/24/23 Time of Service: 10:29 Assessment and Plan Assessment and plan (1) Diabetic foot infection: Status: Acute Assessment and plan: -Had initially been on Zosyn and vancomycin for 3 days -MRI did not show any abscess or any osteomyelitis -While there is infection of the skin, she does not have any deep abscess that requires any operation to debride. -agree w/ Dr. Castellano that just local debridement along w/ chemical debridement should suffice for now and since patient respiratory status is tenous, she would not be good surgical candidate. -Once she is over her UTI and her respiratory status has improved, if she were to need an operation for debridement of her foot, then we could re-explore that approach. 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); initial urine culture growing ESBL, and wound culture growing MRSA sensitive to vanc, zyvox, cipro, and bactrim -will continue imipenem for UTI and IV zyvox for MRSA cellulitis, as patient continues to have leukocytosis (2) Fever: Status: Acute Assessment and plan: - Patient has been having intermittent fevers overnight over the last few nights -Additionally, overnight 10/23/2023, she had significant shortness of breath due to tachycardia from her fever that also led to some worsening pulmonary edema that improved with IV Lasix -At this time source of fever is unknown as patient is on appropriate IV antibiotic therapy for MRSA cellulitis and ESBL UTI as noted above -Repeat blood cultures were drawn overnight -Will continue to monitor patient and hold off on alteration of antibiotic regimen until blood cultures resulted -May need to discuss with podiatry as this may be due to diabetic wound that may need more aggressive surgical intervention for source control (3) DKA (diabetic ketoacidoses): Status: Resolved Assessment and plan: -resolved -glucose much improved w/ more aggressive basal/bolus management. -continue novolog resistant scale during the day for elevated glucose and insulin senstive for at bedtime, basal insulin Lantus 25 units at HS and 10 units qam, and Novolog coverage for CHO intake (1:10) Qualifiers: Diabetes mellitus type: type 2 Diabetes mellitus complication detail: without coma Qualified Code(s): E11.10 - Type 2 diabetes mellitus with ketoacidosis without coma (4) Poorly controlled type 2 diabetes mellitus with peripheral neuropathy: Status: Acute Assessment and plan: -Last glycohemoglobin 11.4% as of 09/05/2023, see above for current insulin regimen (5) DVT prophylaxis: Status: Acute Assessment and plan: -Enoxaparin 40 mg subcutaneous daily (6) Pleural effusion, left: Status: Acute Assessment and plan: -patient appears to be volume overloaded w/ bilateral leg edema, left pleural effusion, she has moist cough; BNP was elevated this admission, will check echo (has none on file) to evaluate LV and RV function, -had required 1-2L NC but has since been transtioned to RA -required additional dose of lasix on 10/19 due to increase HR and CXR showing pleural effusion and pulmonary edema, much improved on am 10/20 -TTE showed the following; Mild concentric left ventricular hypertrophy. Ejection fraction is 50%. Septal motion is somewhat paradoxic Normal right ventricular size and function Both atria are normal in size Mild mitral annular calcification Estimated right ventricular systolic pressure is 34 mmHg Dilated ascending aorta 4.21 cm Subjective Subjective Interval history since last seen: Patient is again tired this morning but awake and oriented. She had fever again overnight, but at this time has no other complaints or concerns. Exam Narrative Exam Narrative: Chronically ill-appearing older female laying in bed in no acute distress, ANO x 4, heart regular rate rhythm, lungs clear to auscultation bilaterally, right foot wrapped in bandage, please see podiatry note for further details Objective Last Vital Signs Temp 98.1 F 10/24/23 07:34 Pulse 103 H 10/24/23 07:34 Resp 19 10/24/23 07:34 BP 115/64 10/24/23 07:34 Pulse Ox 95 10/24/23 08:38 Laboratory Results - last 24 hr 10/24/23 03:35 WBC 26.22 H* RBC 4.58 Hgb 11.6 Hct 35.3 L MCV 77 L MCH 25.3 L MCHC 32.9 RDW 15.7 H Plt Count 426 H MPV 9.2 Sodium 125 L Potassium 4.0 Chloride 88 L Carbon Dioxide 27.3 Anion Gap 9.7 BUN 28 H Creatinine 1.4 H Est GFR (CKD-EPI 2020) 39.48 Glucose 281 H Calcium 8.3 L Time Spent with Patient Time Spent with Patient: >50 minutes Time was spent: preparing to see the patient(eg.review tests), obtaining and/or reviewing separately otained hiistory, ordering medications,tests, procedures, referring, communicating with other health healthcare economics consultant, indepentently interpreting results, counseling the patient and care coordination
--- NOTE | 2023-10-24 11:49 | SPP_ITS ---
Date of service: 10/24/23 Time of Service: 08:45 Subjective Patient seen sitting upright in bed following repositioning with nursing/MEMBERSHIP ASSISTANT. Per nursing, meds held this morning due to significant somnolence following change in status last evening/fever. Objective/Assessment/Plan Objective Treatment Techniques & Outcomes: Positioning: Kemp upright 90 degrees in bed Respiratory Status: Nasal cannula Cognitive Status: Alert though lethargic, oriented to self Oral Care: Completed before/after PO; thick/dry secretions removed PO Trials: Ice chips Thin water via tsp and straw Applesauce Oral Phase: Prolonged/delayed but appropriate for trials assessed Pharyngeal Phase: Delayed swallow initiation Decreased hyolaryngeal movement Cough after thin liquid and applesauce Patient/Caregiver/Staff Education: Recommendations discussed with nsg, with plan for afternoon re-assessment Assessment Nilam presents with poor tolerance of PO beyond ice chips/thin via tsp today in light of notably increased somnolence/lethargy, with immediate wet cough after the swallow. Recommend NPO at this time until status improves. If patient is alert, in 90 degree position, and oral care completed, encourage ice chips and 1/2 tsp thin sips via spoon. INTER COM SERVICER to re-assess in afternoon if status improves. 10/24/23 12:00PM- patient remains somnolent/not appropriate for PO re-assessment at this time. Will re-attempt in PM as indicated. Plan Plan: INTER COM SERVICER to follow 2-3x/week, 1-2 weeks (Daily while NPO) Linen Room Attendant Goals: Patient will remain free from aspiration-related illness, malnutrition, and dehydration. Short Term Goals: Patient will tolerate Small/Bite Size Diet and Thin liquids per nursing report across 2 meals.
--- NOTE | 2023-10-24 13:53 | CMPROGNOTE_ITS ---
Date of service: 10/24/23 Time of Service: 13:53 Care Management Progress Note Progress Note Text Progress Note Text: S/O: Nilam was lying in bed when CM met with her. She stated that she isn't feeling well today, and she is hungry and thirsty. Per report, she is NPO currently, waiting for a speech evaluation which is scheduled for today. Per report, Nilam's WBC increased to 26.22 today; awaiting blood cultures to determine antibiotic course. CM spoke to the [facility] today, providing an update, as Nilam is not yet medically cleared. CM will continue to follow. A:73 year old admitted to [facility] 10/16/23 for Sepsis, diabetic foot infection, DKA P:Nilam's discharge plan will be determined after the course of IV antibiotic therapy is known. If she requires terminal operator IV abx, she may require SWB through the duration of the therapy. If she is able to be transitioned to oral abx, she will transfer to the [facility] for short term rehab, pending insurance PA. She will likely transport via RCT w/c van. She will follow up with community providers and discharge plan of care. CM will continue to follow. SDOH(Care Management) Screening Will the Patient Participate in the Screening?: Unable to obtain
[2023-10-24] MEDS: Polyethylene Glycol 3350 17 GM PACKET PO (17:47)
[2023-10-24] MEDS: Enoxaparin 40 MG/0.4 ML SYR SC (17:47)
[2023-10-24] MEDS: Acetaminophen 500 MG TAB 1000 MG PO (20:26)
[2023-10-24] MEDS: Insulin Glargine 300 UNITS/3 ML PEN 25 UNITS SC (20:27)
[2023-10-24] MEDS: Potassium Chloride 20 MEQ TABCR PO (20:27)
[2023-10-24] MEDS: Gabapentin 300 MG CAP PO (20:27)
[2023-10-25] VITALS (8 sets, daily range): BP systolic 106–122; BP diastolic 63–76; PULSE 62–88; RESP 15–19; TEMP 36.1–36.9; O2SAT 92–95
[2023-10-25] MEDS: Levothyroxine 150 MCG TAB PO (06:36)
[2023-10-25 06:46] LABS: HCT 38.7 % (36.0-46.0); HGB 12.5 g/dL (11.2-15.7); MCH 25.1 pg (27.0-33.0); MCHC 32.3 % (32.0-36.0); MCV 78 fL (80-95); MPV 8.7 fL (8.0-11.0); Platelet Count 355 10^3/uL (130-400); RBC 4.98 10^6/uL (3.93-5.22); RDW 15.6 % (11.7-14.6); RDW-SD 43.9 fL
[2023-10-25 07:08] LABS: Anion Gap 7.1 mmol/L (3-11); BUN 38 mg/dL (7-18); C-Reactive Protein 18.99 mg/dL (<or=0.5); CO2 30.9 mmol/L (21.0-32.0); CREATININE 1.6 mg/dL (0.55-1.02); Calcium 8.1 mg/dL (8.5-10.1); Chloride 89 mmol/L (98-107); Estimated GFR 33.63 (mL/min/1.73m2); Glucose 280 mg/dL (74-106); Potassium 3.8 mmol/L (3.5-5.1); Sodium 127 mmol/L (136-145)
[2023-10-25] MEDS: IMIPENEM/CILASTATIN 500 MG in Normal Saline 100 ML 200 MG IVPB ×2 (07:49→15:49)
[2023-10-25] MEDS: Pantoprazole 40 MG TABCR PO (07:49)
[2023-10-25] MEDS: Acetaminophen 500 MG TAB 1000 MG PO ×3 (07:49→20:58)
[2023-10-25] MEDS: Ferrous Sulfate 325 MG TAB PO (07:49)
[2023-10-25] MEDS: Docusate Sodium 100 MG CAP PO (07:49)
[2023-10-25] MEDS: Atorvastatin 40 MG TAB PO (07:49)
[2023-10-25] MEDS: Potassium Chloride 20 MEQ TABCR PO ×2 (07:49→20:58)
[2023-10-25] MEDS: Gabapentin 300 MG CAP PO ×3 (07:49→20:58)
[2023-10-25] MEDS: Normal Saline Flush 10 ML SYR IVP ×3 (07:50→20:58)
[2023-10-25] MEDS: Furosemide 20 MG/2 ML VIAL 40 MG IVP ×2 (07:50→15:49)
[2023-10-25] MEDS: Insulin Glargine 300 UNITS/3 ML PEN 15 UNITS SC (07:51)
[2023-10-25] MEDS: Nystatin POWDER 15 GM JAR TP ×2 (07:51→21:00)
[2023-10-25] MEDS: Insulin Aspart 300 UNITS/3 ML PEN SC ×7 (08:55→21:01)
--- NOTE | 2023-10-25 09:13 | PDOC.CMPRO ---
Date of service: 10/25/23 Time of Service: 09:13 Care Management Progress Note Progress Note Text Progress Note Text: S/O Nilam was sitting up in the recliner watching TV when CM met with her. She is awake and engages in conversation. Per report, Nilam's WBC decreased to 14.40 today; awaiting blood cultures to determine antibiotic course. Nilam asked CM if the [facility] still has a bed offer for her? CM updated Bridget at the [facility] and she confirmed that they still have a bed offer if she can transition to PO ABX. Pt was updated. CM will continue to follow. A:73 year old admitted to [facility] 10/16/23 for Sepsis, diabetic foot infection, DKA P:Nilam's discharge plan will be determined after the course of IV antibiotic therapy is known. If she requires residential IV abx, she may require SWB through the duration of the therapy. If she is able to be transitioned to oral abx, she will transfer to the [facility] for short term rehab, pending insurance PA. She will likely transport via RCT w/c van. She will follow up with community providers and discharge plan of care. CM will continue to follow. SDOH(Care Management) Screening Will the Patient Participate in the Screening?: Unable to obtain
[2023-10-25] MEDS: LINEZOLID 600 MG/300 ML BAG 300 MG IVPB ×2 (10:09→23:08)
--- NOTE | 2023-10-25 10:13 | PGE_ITS ---
Date of Service Date of service: 10/25/23 Time of Service: 07:50 Assessment and Plan Assessment and plan (1) Unstageable pressure ulcer of right heel: Status: Acute (2) Diabetic foot infection: Status: Acute (3) DKA (diabetic ketoacidoses): Status: Resolved Qualifiers: Diabetes mellitus type: type 2 Diabetes mellitus complication detail: without coma Qualified Code(s): E11.10 - Type 2 diabetes mellitus with ketoacidosis without coma (4) Poorly controlled type 2 diabetes mellitus with peripheral neuropathy: Status: Acute (5) DVT prophylaxis: Status: Acute Assessment and plan: Right heel ulcer was evaluated today. Initially, there were 2 unstageable ulcers noted however 1 is now completely healed. There is 1 unstageable ulcer remaining at this time which does appear to be smaller today. I recommended and attempted debridement of the ulcer today however patient reported pain the wound bed was crosshatched with a sterile #15 blade depth in determinate at this time due to unstageable nature of the wound. There is no periwound erythema edema drainage or malodor there is some tenderness to palpation to the heel, Achilles tendon and plantar fascia however low index for suspicion at this time for deeper abscess considering there is no erythema or edema or drainage from the wound as well as the fact that the wounds are healing. I recommend dressing changes with Medihoney, 4 x 4 soaked in Dakin's, Kerlix and Alok wrap. I recommend continued offloading with a Prevalon boot. She may weight-bear as tolerated to the right lower extremity. No surgical intervention is planned or indicated at this time. If her symptoms do not improve, I would recommend repeating an MRI however we will hold off on it for now. Subjective Subjective Interval history since last seen: Patient was seen bedside today. Resting comfortably. States that she is feeling better now. States she believes the right foot is doing better now as well. Denies any worsening to the foot pain. States it is about the same Exam Extrem Other: Bilateral lower extremity physical exam: Derm: Unstageable ulcers x 1 noted to the right heel medially, no malodor noted from this area, no erythema no fluctuance no bogginess noted, there is TTP noted at this time. The second ulceration has now healed. Some HPK remains. Skin is otherwise warm dry and supple lesions or other ulceration. Nails x 10 thickened elongated debris. Malodor noted. No probe to bone, no tunneling and no undermining. Vascular: DP PT pulses are palpable bilateral lower extremity. Hair growth absent. Skin is thin and shiny bilaterally. There is edema noted bilaterally. MSK: Muscle strength noted to be intact. Tenderness to palpation noted to the right heel medially. Objective Last Vital Signs Temp 98.4 F 10/25/23 07:41 Pulse 75 10/25/23 07:41 Resp 18 10/25/23 07:41 BP 118/74 10/25/23 07:41 Pulse Ox 94 10/25/23 07:41 Laboratory Results - last 24 hr 10/25/23 06:00 WBC 14.40 H RBC 4.98 Hgb 12.5 Hct 38.7 MCV 78 L MCH 25.1 L MCHC 32.3 RDW 15.6 H Plt Count 355 MPV 8.7 Sodium 127 L Potassium 3.8 Chloride 89 L Carbon Dioxide 30.9 Anion Gap 7.1 BUN 38 H Creatinine 1.6 H Est GFR (CKD-EPI 2020) 33.63 Glucose 280 H Calcium 8.1 L C-Reactive Protein 18.99 H Time Spent with Patient Time Spent with Patient: 35-49 minutes Time was spent: preparing to see the patient(eg.review tests), obtaining and/or reviewing separately otained hiistory, referring, communicating with other health career portals teacher, indepentently interpreting results, counseling the patient and care coordination
--- NOTE | 2023-10-25 13:51 | W.PM.PROGNOT ---
Date of Service Date of service: 10/25/23 Time of Service: 13:51 Assessment and Plan Assessment and plan (1) Diabetic foot infection: Status: Acute Assessment and plan: -Dr. 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); initial urine culture growing ESBL, and wound culture growing MRSA sensitive to vanc, zyvox, cipro, and bactrim -will continue imipenem for UTI and IV zyvox for MRSA cellulitis, as patient continues to have leukocytosis (2) Fever: Status: Acute Assessment and plan: afebrile overnight -patient is on appropriate IV antibiotic therapy for MRSA cellulitis and ESBL UTI as noted above -Repeat blood cultures pending -Will continue to monitor patient and hold off on alteration of antibiotic regimen until blood cultures resulted -May need to discuss with podiatry as this may be due to diabetic wound that may need more aggressive surgical intervention for source control (3) DKA (diabetic ketoacidoses): Status: Resolved Assessment and plan: -resolved -glucose much improved w/ more aggressive basal/bolus management. -continue novolog resistant scale during the day for elevated glucose and insulin senstive for at bedtime, basal insulin Lantus 25 units at HS and 10 units qam, and Novolog coverage for CHO intake (1:10) Qualifiers: Diabetes mellitus complication detail: without coma Diabetes mellitus type: type 2 Qualified Code(s): E11.10 - Type 2 diabetes mellitus with ketoacidosis without coma (4) Poorly controlled type 2 diabetes mellitus with peripheral neuropathy: Status: Acute Assessment and plan: -Last glycohemoglobin 11.4% as of 09/05/2023, see above for current insulin regimen (5) DVT prophylaxis: Status: Acute Assessment and plan: -Enoxaparin 40 mg subcutaneous daily (6) Pleural effusion, left: Status: Acute Assessment and plan: -patient appears to be volume overloaded w/ bilateral leg edema, left pleural effusion, she has moist cough; BNP was elevated this admission, will check echo (has none on file) to evaluate LV and RV function, -had required 1-2L NC but has since been transtioned to RA -required additional dose of lasix on 10/19 due to increase HR and CXR showing pleural effusion and pulmonary edema, much improved on am 5 -TTE showed the following; Mild concentric left ventricular hypertrophy. Ejection fraction is 50%. Septal motion is somewhat paradoxic Normal right ventricular size and function Both atria are normal in size Mild mitral annular calcification Estimated right ventricular systolic pressure is 34 mmHg Dilated ascending aorta 4.[address] Pillai Subjective Subjective Patient reports: no new complaints Objective Last Vital Signs Temp 36.4 C L 10/25/23 11:19 Pulse 76 10/25/23 11:19 Resp 18 10/25/23 11:19 BP 117/76 10/25/23 11:19 Pulse Ox 95 10/25/23 12:18 Laboratory Results - last 24 hr 10/25/23 06:00 WBC 14.40 H RBC 4.98 Hgb 12.5 Hct 38.7 MCV 78 L MCH 25.1 L MCHC 32.3 RDW 15.6 H Plt Count 355 MPV 8.7 Sodium 127 L Potassium 3.8 Chloride 89 L Carbon Dioxide 30.9 Anion Gap 7.1 BUN 38 H Creatinine 1.6 H Est GFR (CKD-EPI 2020) 33.63 Glucose 280 H Calcium 8.1 L C-Reactive Protein 18.99 H Time Spent with Patient Time Spent with Patient: 35-49 minutes Time was spent: preparing to see the patient(eg.review tests), obtaining and/or reviewing separately otained hiistory, ordering medications,tests, procedures, referring, communicating with other health family day care provider, indepentently interpreting results and counseling the patient
--- NOTE | 2023-10-25 14:49 | PTTR_ITS ---
PT Notes Visit Reasons: Cellulitis, Diabetic Foot Wound, DKA Date: 10/25/23 PRECAUTIONS: Fall. Standard. Activity as tolerated. Contact precautions SUBJECTIVE: Pt in recliner when approached for therapy this afternoon, agreed to participating with therapy session. Objective: crump catheter in place Therapeutic Activities 23163: Direct one-on-one instruction in dynamic activities to improve functional performance. ?? BED MOBILITY/TRANSFERS? Rolling L/R: not performed Supine-sit: not performed ? Sit-supine: ?not performed ? Sit-stand: ? CGA? Stand-sit: ?? CGA ? Bed-Chair:? ? not performed? Chair-bed: not performed Provided skilled cues and instruction on performance and technique throughout. Gait Training 40307: Direct one-on-one instruction and skilled instruction in: Employing an assistive device Modified weight-bearing status Movement sequencing Turning and movement with proper form Provided verbal cues for equipment management and technique Provided instruction in gait pattern Patient education regarding pacing and breathing techniques to maximize activity tolerance? GAIT? Assistive Device: ?? FWW? Weight bearing: WBAT left heel off loading per washroom cleaner Assist: ?SBA ? Distance:?? ?75'x2 seated rest break in between ? Deviation: ? Slow jonathan, low step height, short step length, stoop forward position ? Assessment: pt showing improved activity tolerance, much more alert and engaged compared to yesterday. PLAN: Continue with balance training, global strengthening and general conditioning for improved safety, mobility and activity tolerance until pt is ready for DC. TREATMENT CODE/TIME: [id number], [id number] 30mins (2:10-2:40pm)
--- NOTE | 2023-10-25 16:06 | PT.INPN ---
PT Notes Visit Reasons: Cellulitis, Diabetic Foot Wound, DKA Physical Therapy Inpatient Progress Note Date: 10/25/2023 Dates of Service: 10/18/2023 through 10/25/2023 Referring Doctor: Anish Taylor MD PT Orders: PT CONSULT: Extended Stay Weakness Precautions: Fall. On contact precautions. Activity as tolerated. Subjective: Feels much better. Agreeable to getting out of bed and doing some walking inside room. Understands that although she can put as much weight on her R foot now per Dr. Castellano, she still need to off-load the R heel during walking. Happy to know that one of her ulcer is now healed. Glad that she could use the shiny pink croc slipper her granddaughter bought for her. Objective: General Observation: Resting in bed. IV through L UE. Love catheter in place. High BMI. R leg and foot more swollen than L. Wound dressing to R heel. Telemonitor on. Mental Status: Alert and oriented as to person, place, time, and purpose. Able to pay attention, focus, and respond appropriately. Pain: None reported Vital Signs: Closely monitored by nursing staff ROM: Right Upper Extremity: Shoulder Flexion WFL. Shoulder abduction WFL. Elbow flexion WFL. Wrist flexion WFL. Functional opening and closing of hand WFL. Left Upper Extremity: Shoulder Flexion WFL. Shoulder abduction WFL. Elbow flexion WFL. Wrist flexion WFL. Functional opening and closing of hand WFL. Right Lower Extremity: Hip flexion WFL. Hip abduction WFL. Knee flexion WFL. Ankle dorsiflexion to neutral only. Ankle plantarflexion WFL. Left Lower Extremity: Hip flexion only allows 25% of AROM. Hip abduction WFL. Knee flexion 30 degrees to 60 degrees. Kne extension -30 degrees. Ankle dorsiflexion to neutral only. Ankle plantarflexion WFL. Strength: Right Upper Extremity: Shoulder flexors 4/5. Shoulder abductors 4/5. Elbow flexors 4/5. Elbow extensors 4/5. Auto Transmission Technician strong. Left Upper Extremity: Shoulder flexors 4-/5. Shoulder abductors 4-/5. Elbow flexors 4-/5. Elbow extensors 4-/5. Auto Transmission Technician weaker than R but functional. Right Lower Extremity: Hip flexors 3/5. Hip abductors 4-/5. Knee flexors 4/5. Knee extensors 4-/5. Ankle dorsiflexors 3-/5. Ankle plantarflexors 4-/5. Left Lower Extremity: Hip flexors 3-/5. Hip abductors 3-/5. Knee flexors 3-/5. Knee extensors 3-/5. Ankle dorsiflexors 3-/5. Ankle plantarflexors 3-/5. Bed Mobility/Transfers: Minimal cueing provided for use of B hands as needed for support, movement sequence, AD management, and posture to reduce fall risk and minimize pain report Supine to sit with contact guard assist, HOB at 45 degrees Sit to stand from edge of bed with minimal assist Sit to stand from toilet seat minimal assist pulling on grab bars Stand to sit with contact guard assist Gait: Facilitated safe and correct performance of level surface ambulation covering a distance of 20 feet + 20 feet using front-wheeled walker with minimal assist and wheelchair follow requiring minimal verbal cueing for limb advancement, AD management, and posture to reduce fall risk and minimize pain report. WBAT through R forefoot, R heel off-loading. No SOB. Standardized Measure [facility] AM-PAC 6 clicks Basic Mobility Inpatient Short Form: Raw Score: 18 CMS Score: 47% deficit Informed Consent/Education: Patient was instructed in purpose of PT consult and plan of care. Agreeable to proceed with established PT POC to achieve personal goals. Assessment: Patient presents with clinical signs and symptoms consistent with current/admitting diagnoses that have resulted to mobility limitations, gait instability, generalized weakness, and overall ADL decline as demonstrated by the following impairment level findings: 1. Decreased strength to B UE/LE major muscle groups 2. Impaired standing balance 3. Impaired activity tolerance 4. Swelling in B LE with R>>L Impairments are contributing to the following functional limitations: 1. Decline in bed mobility skills 2. Decline in transfer skills 3. Difficulty with ambulation without assistive device and physical assistance 4. Increased completion time for mobility ADL performance 5. Increased risk for falls Patient is assessed as a 33956 moderate complexity based on the following: History: 72-year-old female with past medical history as indicated above Examination: Demonstrable impairment in strength, balance, and mobility level with underlying impairments and functional limitations as exhibited above as well as deficit score of 47% utilizing the [facility] Mobility Inpatient Short Form Presentation: Evolving Decision Makin moderate complexity Goals: Goals X1 week 1. Supine-Sit independent NOT MET, CONTINUE 2. Sit-Supine independent NOT MET, CONTINUE 3. Sit-Stand independent NOT MET, CONTINUE 4. Stand-Sit independent with FWW NOT MET, CONTINUE 5. Bed-Chair independent with FWW NOT MET, CONTINUE 6. Chair-Bed independent with FWW NOT MET, CONTINUE 7. Independent gait on level surface with use of FWW for at least 200 feet without report of pain nor dyspnea NOT MET, CONTINUE 8. Independent stair negotiation while holding onto B rails for at least 5 steps without report of pain nor dyspnea NOT MET, CONTINUE 9. Independent with home exercise program NOT MET, CONTINUE 10. Good static and dynamic standing balance/tolerance NOT MET, CONTINUE Plan of Care/Treatment Plan: 1-2x/day, 7 days/week x 1 week. Plan of care has been reviewed with the TOBACCO PREVENTION HEALTH EDUCATOR providing the service under Physical Therapy direction. Initiate Physical Therapy intervention for pain management as needed, strengthening, bed mobility, transfers, gait, stairs, balance training, and use of assistive device. DISCHARGE RECOMMENDATIONS: [] Home with no services [] [] Home with services [] Home with outpatient PT [] [] SNF for continued rehabilitation [] [] Sulfide Head Operator Care [] [] SNF versus LTC based on ability to participate and progress [] [X] SNF vs. PT based on progress towards goals and availability of caregivers TREATMENT CODE/TIME: 99675 x 35 minutes for 2 units (11:29-12:04). Thank you for the opportunity to participate in the care of this patient. Bridget Andersen PT, DPT, CLT [facility] [place], [place]
[2023-10-25] MEDS: Enoxaparin 40 MG/0.4 ML SYR SC (17:34)
[2023-10-25] MEDS: Insulin Glargine 300 UNITS/3 ML PEN 25 UNITS SC (21:02)
[2023-10-26] MEDS: IMIPENEM/CILASTATIN 500 MG in Normal Saline 100 ML 200 MG IVPB ×2 (01:18→15:36)
[2023-10-26 03:50] VITALS: BP 115/72; PULSE 71; RESP 15; TEMP 36.4; O2SAT 92
[2023-10-26] MEDS: Levothyroxine 150 MCG TAB PO (05:32)
[2023-10-26 07:08] LABS: Abs Immature Grans 0.45 10^3/uL (0.0-0.06); Absolute Basophil Count 0.05 10^3/uL (0.0-0.2); Absolute Eosinophil Count 0.26 10^3/uL (0.0-0.7); Absolute Lymphocyte Count 1.56 10^3/uL (1.2-3.4); Basophils % 0.4 %; HGB 11.7 g/dL (11.2-15.7); Immature Grans % 3.4 %; Lymphocytes % 11.9 %; MCH 25.4 pg (27.0-33.0); MCHC 32.5 % (32.0-36.0); MCV 78 fL (80-95); MPV 8.7 fL (8.0-11.0); Monocytes % 7.2 %; Neutrophils % 75.1 %; Platelet Count 413 10^3/uL (130-400); RDW 15.5 % (11.7-14.6); RDW-SD 43.8 fL; WBC 13.11 10^3/uL (4.4-10.8)
[2023-10-26 07:09] LABS: Absolute Monocyte Count 0.94 10^3/uL (0.1-0.8); Absolute Neutrophil Count 9.85 10^3/uL (1.2-6.7)
[2023-10-26 07:27] LABS: Anion Gap 8.3 mmol/L (3-11); BUN 36 mg/dL (7-18); CO2 30.7 mmol/L (21.0-32.0); CREATININE 1.5 mg/dL (0.55-1.02); Calcium 8.4 mg/dL (8.5-10.1); Chloride 93 mmol/L (98-107); Estimated GFR 36.34 (mL/min/1.73m2); Glucose 304 mg/dL (74-106); Potassium 4.4 mmol/L (3.5-5.1); Sodium 132 mmol/L (136-145)
[2023-10-26] MEDS: Gabapentin 300 MG CAP PO ×3 (07:41→19:50)
[2023-10-26] MEDS: Docusate Sodium 100 MG CAP PO (07:41)
[2023-10-26] MEDS: Acetaminophen 500 MG TAB 1000 MG PO ×3 (07:41→19:50)
[2023-10-26] MEDS: Pantoprazole 40 MG TABCR PO (07:41)
[2023-10-26] MEDS: Potassium Chloride 20 MEQ TABCR PO ×2 (07:41→19:50)
[2023-10-26] MEDS: Ferrous Sulfate 325 MG TAB PO (07:41)
[2023-10-26] MEDS: Atorvastatin 40 MG TAB PO (07:41)
[2023-10-26] MEDS: Insulin Glargine 300 UNITS/3 ML PEN 15 UNITS SC (07:42)
[2023-10-26] MEDS: Normal Saline Flush 10 ML SYR IVP ×4 (07:42→19:58)
[2023-10-26] MEDS: Nystatin POWDER 15 GM JAR TP ×2 (07:43→20:02)
[2023-10-26 07:52] VITALS: BP 135/61; PULSE 83; RESP 18; TEMP 36.2; O2SAT 92
[2023-10-26] MEDS: Insulin Aspart 300 UNITS/3 ML PEN SC ×7 (09:18→19:55)
--- NOTE | 2023-10-26 09:52 | PTTR_ITS ---
PT Notes Visit Reasons: Cellulitis, Diabetic Foot Wound, DKA Date: 10/26/23 PRECAUTIONS: Fall. Standard. Activity as tolerated. Contact precautions SUBJECTIVE: Pt in bed when approached for therapy this morning, agreed to participating with therapy session. Pt sleeping in recliner when approached for therapy this afternoon, agreed to participate with therapy session and would like to transfer in bed after session. Objective: crump catheter in place Therapeutic Activities 39514: Direct one-on-one instruction in dynamic activities to improve functional performance. ?? BED MOBILITY/TRANSFERS? Rolling L/R: supervision Supine-sit: supervision? Sit-supine: ?supervision? Sit-stand: ? CGA? Stand-sit: ?? CGA ? Bed-Chair:? ? CGA ? Chair-bed: CGA Provided skilled cues and instruction on performance and technique throughout. Gait Training 22378: Direct one-on-one instruction and skilled instruction in: Employing an assistive device Modified weight-bearing status Movement sequencing Turning and movement with proper form Provided verbal cues for equipment management and technique Provided instruction in gait pattern Patient education regarding pacing and breathing techniques to maximize activity tolerance? GAIT? Assistive Device: ?? FWW? Weight bearing: WBAT left heel off loading per sales agent marine insurance Assist: ?SBA ? Distance:?? ?75'x2 seated rest break in between, 75'x2 Seated rest break in between ? Deviation: ? Slow jonathan, low step height, short step length, stoop forward position ? Assessment: pt reports feeling stronger required shorter rest break before going back to second lap of gait training activity. biomedical electronics technician was waiting for pt when pt arrived back in her room to get blood samples after pt got settled in bed. Pt reminders for Heel off loading gait pattern during both sessions. PLAN: Continue with balance training, global strengthening and general conditioning for improved safety, mobility and activity tolerance until pt is ready for DC. TREATMENT CODE/TIME: [id number], [id number] 25mins (8:55-9:20am), 49315u1, 99266e3 25mins (1:10-1:35pm)
[2023-10-26 10:55] VITALS: BP 131/82; PULSE 72; RESP 18; TEMP 36.7; O2SAT 95
--- NOTE | 2023-10-26 14:05 | PDOC.CMPRO ---
Date of service: 10/26/23 Time of Service: 14:06 Care Management Progress Note Progress Note Text Progress Note Text: S/O Nilam was sitting up in the recliner watching TV when CM met with her. She is awake and engages in conversation. This states this is the second day that she's felt good. She denies concerns at this time, she remains eager to discharge to the [facility]. Nilam currently has a midline, due to difficulty with her IV access per provider. Discharge is being coordinated for Tuesday when her PO ABX course is known. CM updated Bridget at the [facility] and she confirmed that they can take her on Tuesday in the Morning. Pt was updated and is agreeable to this plan. CM will continue to follow. A:73 year old admitted to [facility] 10/16/23 for Sepsis, diabetic foot infection, DKA P: STR vs. SWB1 (if needs IV abx.) Anticipate, Nilam will be medically ready for discharge to the [facility] on Tuesday10/29/23 on a course of PO ABX. IV ABX are not anticipated at this time per hospitalist. Cultures are still pending. She will likely transport via [facility] w/c van and follow up with community providers and discharge plan of care. CM will continue to follow. SDOH(Care Management) Screening Will the Patient Participate in the Screening?: Unable to obtain
[2023-10-26 15:01] VITALS: BP 137/80; PULSE 74; RESP 18; TEMP 36.4; O2SAT 95
[2023-10-26] MEDS: Furosemide 20 MG/2 ML VIAL 40 MG IVP (15:37)
--- NOTE | 2023-10-26 16:18 | W.PM.PROGNOT ---
Date of Service Date of service: 10/26/23 Time of Service: 16:19 Assessment and Plan Assessment and plan (1) Diabetic foot infection: Status: Acute Assessment and plan: -Dr. 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); initial urine culture growing ESBL, and wound culture growing MRSA sensitive to vanc, zyvox, cipro, and bactrim -will continue imipenem for UTI and IV zyvox for MRSA cellulitis, as patient continues to have leukocytosis (2) Fever: Status: Acute Assessment and plan: afebrile overnight -patient is on appropriate IV antibiotic therapy for MRSA cellulitis and ESBL UTI as noted above -Repeat blood cultures pending -Will continue to monitor patient and hold off on alteration of antibiotic regimen until blood cultures resulted -May need to discuss with podiatry as this may be due to diabetic wound that may need more aggressive surgical intervention for source control (3) DKA (diabetic ketoacidoses): Status: Resolved Assessment and plan: -resolved -glucose much improved w/ more aggressive basal/bolus management. -continue novolog resistant scale during the day for elevated glucose and insulin senstive for at bedtime, basal insulin Lantus 25 units at HS and 10 units qam, and Novolog coverage for CHO intake (1:10) Qualifiers: Diabetes mellitus complication detail: without coma Diabetes mellitus type: type 2 Qualified Code(s): E11.10 - Type 2 diabetes mellitus with ketoacidosis without coma (4) Poorly controlled type 2 diabetes mellitus with peripheral neuropathy: Status: Acute Assessment and plan: -Last glycohemoglobin 11.4% as of 09/05/2023, see above for current insulin regimen (5) DVT prophylaxis: Status: Acute Assessment and plan: -Enoxaparin 40 mg subcutaneous daily (6) Pleural effusion, left: Status: Acute Assessment and plan: -patient appears to be volume overloaded w/ bilateral leg edema, left pleural effusion, she has moist cough; BNP was elevated this admission, will check echo (has none on file) to evaluate LV and RV function, -had required 1-2L NC but has since been transtioned to RA -required additional dose of lasix on 10/19 due to increase HR and CXR showing pleural effusion and pulmonary edema, much improved on am 10/20 -TTE showed the following; Mild concentric left ventricular hypertrophy. Ejection fraction is 50%. Septal motion is somewhat paradoxic Normal right ventricular size and function Both atria are normal in size Mild mitral annular calcification Estimated right ventricular systolic pressure is 34 mmHg Dilated ascending aorta 4.[address] Pillai Subjective Subjective Patient reports: no new complaints, feels better, tolerating liquids well, tolerating a regular diet and afebrile Objective Last Vital Signs Temp 36.4 C L 10/26/23 15:01 Pulse 74 10/26/23 15:01 Resp 18 10/26/23 15:01 BP 137/80 10/26/23 15:01 Pulse Ox 95 10/26/23 15:01 Laboratory Results - last 24 hr 10/26/23 06:40 WBC 13.11 H RBC 4.60 Hgb 11.7 Hct 36.0 MCV 78 L MCH 25.4 L MCHC 32.5 RDW 15.5 H Plt Count 413 H MPV 8.7 Immature Gran % 3.4 Neutrophils % 75.1 Lymphocytes % 11.9 Monocytes % 7.2 Eosinophils % 2.0 Basophils % 0.4 Nucleated RBC % 0.0 Absolute Neutrophils 9.85 H Absolute Lymphocytes 1.56 Absolute Monocytes 0.94 H Absolute Eosinophils 0.26 Absolute Basophils 0.05 Sodium 132 L Potassium 4.4 Chloride 93 L Carbon Dioxide 30.7 Anion Gap 8.3 BUN 36 H Creatinine 1.5 H Est GFR (CKD-EPI 2020) 36.34 Glucose 304 H Calcium 8.4 L Time Spent with Patient Time Spent with Patient: 35-49 minutes Time was spent: preparing to see the patient(eg.review tests), obtaining and/or reviewing separately otained hiistory, ordering medications,tests, procedures, indepentently interpreting results, counseling the patient and care coordination
[2023-10-26] MEDS: Enoxaparin 40 MG/0.4 ML SYR SC (17:52)
--- NOTE | 2023-10-26 18:08 | PDOC.STREC ---
Date of service: 10/26/23 Time of Service: 18:08 Speech Therapy Recommendations Report ST Recommendations: Per discussion with nursing x1 yesterday (10/24) and x1 today, nursing noting consistent implementation of aspiration precautions as recommended, and patient has maintained improved mental/medical status since incident of lethargy/s/sx aspiration on Tuesday. No further coughing or s/sx aspiration have been noted and patient has tolerated meal trays well. No further inpatient services are indicated at this time. Please re-refer as needed if further concerns arise. 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 SOLIDS: 6-Soft & Bite-Sized Solids - Extra sauces & gravy No mixed textures LIQUIDS: 0-Thin Liquids MEDICATIONS: Whole With 4-Purees Alter medications only as advised by MD or Pharmacist RISK MANAGEMENT: Level of Assistance/Supervision: Provide set-up assist with initial verbal reminders for aspiration precautions as below Intermittent supervision for all PO intake Positioning and environment: PO intake only when awake/alert? Reduce auditory and/or visual distractions when eating Williamson upright for all PO intake. Oral hygiene BID/2x per day Using friction with toothbrush on all oral structures as tolerated Remove and clean dentures daily Strategies/Adaptations/Assistive Equipment: Small sips Small bites Slow rate of intake Reflux Precautions: Maintain fully upright position at least 30 minutes after meals Avoid meals/snacks 2-3 hours prior to reclining/sleeping Sleep with head of bed elevated to reduce likelihood of nocturnal reflux Goals: Curing Oven Tender Goals: Patient will remain free from aspiration-related illness, malnutrition, and dehydration. ONGOING Short Term Goals: Patient will tolerate Small/Bite Size Diet and Thin liquids per nursing report across 2 meals. MET
[2023-10-26 19:44] VITALS: BP 128/73; PULSE 75; RESP 16; TEMP 36.5; O2SAT 93
[2023-10-26] MEDS: Insulin Glargine 300 UNITS/3 ML PEN 25 UNITS SC (19:54)
[2023-10-27] VITALS (7 sets, daily range): BP systolic 113–138; BP diastolic 58–76; PULSE 73–83; RESP 16–20; TEMP 35.2–36.9; O2SAT 90–96
[2023-10-27] MEDS: IMIPENEM/CILASTATIN 500 MG in Normal Saline 100 ML 200 MG IVPB ×4 (00:40→23:50)
[2023-10-27] MEDS: Normal Saline Flush 10 ML SYR IVP ×4 (00:40→20:12)
[2023-10-27] MEDS: Levothyroxine 150 MCG TAB PO (04:42)
[2023-10-27] MEDS: Insulin Aspart 300 UNITS/3 ML PEN SC ×7 (08:30→20:13)
[2023-10-27] MEDS: Insulin Glargine 300 UNITS/3 ML PEN 15 UNITS SC (08:39)
[2023-10-27 09:33] LABS: ALT 23 U/L (14-59); AST 27 U/L (15-37); Albumin 1.9 g/dL (3.4-5.0); Alkaline Phosphatase 289 U/L (46-116); Anion Gap 6.9 mmol/L (3-11); BUN 29 mg/dL (7-18); Bilirubin, Total 0.2 mg/dL (0.2-1.0); C-Reactive Protein 6.47 mg/dL (<or=0.5); CO2 30.1 mmol/L (21.0-32.0); CREATININE 1.2 mg/dL (0.55-1.02); Chloride 97 mmol/L (98-107); Glucose 199 mg/dL (74-106); Potassium 4.7 mmol/L (3.5-5.1); Sodium 134 mmol/L (136-145); Total Protein 7.5 g/dL (6.4-8.2)
--- NOTE | 2023-10-27 09:45 | W.PM.PROGNOT ---
Date of Service Date of service: 10/27/23 Time of Service: 09:00 Assessment and Plan Assessment and plan (1) Unstageable pressure ulcer of right heel: Status: Acute (2) Diabetic foot infection: Status: Acute (3) DKA (diabetic ketoacidoses): Status: Resolved Qualifiers: Diabetes mellitus type: type 2 Diabetes mellitus complication detail: without coma Qualified Code(s): E11.10 - Type 2 diabetes mellitus with ketoacidosis without coma (4) Poorly controlled type 2 diabetes mellitus with peripheral neuropathy: Status: Acute (5) DVT prophylaxis: Status: Acute Assessment and plan: Right heel ulcer remains stable and without any sign of infection. There is no periwound erythema edema drainage or malodor. I recommend dressing changes with Medihoney, 4 x 4 soaked in Dakin's, Kerlix and Alok wrap. I recommend continued offloading with a Prevalon boot. She may weight-bear as tolerated to the right lower extremity. No surgical intervention is planned or indicated at this time. Patient is ok to be discharged from Podiatry standpoint. She is to follow up in office with in 1 week of discharge. I will sign off. Please re-consult as needed. Thank you for allowing me to participate in this patient's care. Subjective Subjective Interval history since last seen: Patient seen resting comfortably bedside today. No new pedal complaints. Continues to report some pain to the right heel however no worse than before. Exam Extrem Other: Bilateral lower extremity physical exam: Derm: Stable appearing Unstageable ulcer x 1 noted to the right heel medially, no malodor noted from this area, no erythema no fluctuance no bogginess noted, there is TTP noted at this time. The second ulceration has now healed. Some HPK remains. Skin is otherwise warm dry and supple lesions or other ulceration. Nails x 10 thickened elongated debris. Malodor noted. No probe to bone, no tunneling and no undermining. Vascular: DP PT pulses are palpable bilateral lower extremity. Hair growth absent. Skin is thin and shiny bilaterally. There is edema noted bilaterally. MSK: Muscle strength noted to be intact. Tenderness to palpation noted to the right heel medially. Objective Last Vital Signs Temp 95.4 F L 10/27/23 04:45 Pulse 73 10/27/23 04:45 Resp 18 05/09/24 04:45 BP 120/75 10/27/23 04:45 Pulse Ox 90 L 10/27/23 04:45 Time Spent with Patient Time Spent with Patient: 25-34 minutes Time was spent: preparing to see the patient(eg.review tests), obtaining and/or reviewing separately otained hiistory, referring, communicating with other health career services officer, indepentently interpreting results, counseling the patient and care coordination
--- NOTE | 2023-10-27 09:53 | W.PM.PROGNOT ---
Date of Service Date of service: 10/27/23 Time of Service: 09:54 Assessment and Plan Assessment and plan (1) Gram-negative bacteremia: Status: Acute Assessment and plan: Blood culture on 10/23 grew GNR on 10/24 in one bottle -Urine was ESBL positive : If pathogen in blood is also an ESBL micro organism, the patient will need a prolonged course of antibiotics -If not ESBL bacteremia will be discharged on oral antibiotics after been fever free X 48 hours -Treated with carbapenems for 10 days Repeat blood culture negative 24 hours this PM -D/c in AM After IV antibiotic (2) Diabetic foot infection: Status: Acute Assessment and plan: -Dr. 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) course completed WBC initially over 26, now 15 but still higher than 5/8 with 13 CBC Иван (3) Fever: Status: Acute Assessment and plan: afebrile overnight -antibiotic therapy for MRSA cellulitis completed for 10 course -ESBL UTI as noted above -Repeat blood cultures pending This AM,no growth X 24 hours in late PM -ESBL IV anibiotic treatment day 10 on 10/27 -May need to discuss with podiatry as this may be due to diabetic wound that may need more aggressive surgical intervention for source control (4) DKA (diabetic ketoacidoses): Status: Resolved Assessment and plan: -resolved -continue w/ more aggressive basal/bolus management. -continue novolog resistant scale during the day for elevated glucose and insulin senstive for at bedtime, basal insulin Lantus 25 units at HS and 10 units qam, and Novolog coverage for CHO intake (1:10) -Adjust basal insulin prior to discharge; received and average of 50 of lispro a day Qualifiers: Diabetes mellitus complication detail: without coma Diabetes mellitus type: type 2 Qualified Code(s): E11.10 - Type 2 diabetes mellitus with ketoacidosis without coma (5) Poorly controlled type 2 diabetes mellitus with peripheral neuropathy: Status: Acute Assessment and plan: -Last glycohemoglobin 11.4% as of 09/05/2023 As above (6) Obesity: Status: Chronic Assessment and plan: As above Diabetic consult completed Continue management OPT (7) DVT prophylaxis: Status: Acute Assessment and plan: Continue LMWH SC (8) Pleural effusion, left: Status: Acute Assessment and plan: -Decreased bilateral leg edema, left pleural effusion, and cough; BNP was elevated this admission will not trend clinically improved -Transitioned to RA now initially 1-2 l O2 via nc -required additional dose of lasix on 10/19 due to increase HR and CXR showing pleural effusion and pulmonary edema, much improved on am 5 -On oral lasix this PM -Echoshowed the following; Mild concentric left ventricular hypertrophy. Ejection fraction is 50%. Septal motion is somewhat paradoxic Normal right ventricular size and function Mild mitral annular calcification Dilated ascending aorta 4.21 cm (9) Discharge planning issues: Status: Acute Assessment and plan: Followed by CM Bed at the [facility] d/ in AM Discussed with Dr Pillai Subjective Subjective Patient reports: no new complaints, feels better, tolerating liquids well, tolerating a regular diet, voiding w/o difficulty, flatus and bowel movement; denies still having pain, diarrhea, blood in stool, nausea, vomiting, shortness of breath or fever Exam Narrative Exam Narrative: Constitutional The patient is sitting in recliner comfortable, without acute distress and has an obese body HENMT: Facial structures with normal appearance Neck: Normal ROM, no meningeal signs Neuro:alert and oriented to self, person, place time and situation. No neurological focal deficit Chest:Chest is symmetrical and normal appearance Resp: Normal respiratory pattern, speaks in full sentences, unlabored breathing, clear lung bilaterally, diminished left base Cardio:Tele SR HR 65- 80, regular rhythm,positive pulses to all 4 ext., trace edema to lower ext. R>L GI: Abdomen is large,, not distended, soft and non tender, bowel sounds are present : Negative Costovertebral angle tenderness, no bladder distension-crump in place for I&O Back/spine/Pelvis: No back tenderness, normal alignment Integumentary:right heel cellulitis improving Psych: RASS 0, congruent mood and normal affect. Objective Last Vital Signs Temp 35.2 C L 10/27/23 04:45 Pulse 73 10/27/23 04:45 Resp 18 10/27/23 04:45 BP 120/75 10/27/23 04:45 Pulse Ox 90 L 10/27/23 04:45 Time Spent with Patient Time Spent with Patient: >50 minutes Time was spent: preparing to see the patient(eg.review tests), obtaining and/or reviewing separately otained hiistory, ordering medications,tests, procedures, referring, communicating with other health nurse behavioral health care, indepentently interpreting results, counseling the patient and care coordination
[2023-10-27] MEDS: Gabapentin 300 MG CAP PO ×3 (10:34→20:12)
[2023-10-27] MEDS: Atorvastatin 40 MG TAB PO (10:34)
[2023-10-27] MEDS: Potassium Chloride 20 MEQ TABCR PO ×2 (10:34→20:12)
[2023-10-27] MEDS: Acetaminophen 500 MG TAB 1000 MG PO ×3 (10:35→20:21)
[2023-10-27] MEDS: Ferrous Sulfate 325 MG TAB PO (10:35)
[2023-10-27] MEDS: Docusate Sodium 100 MG CAP PO (10:35)
[2023-10-27] MEDS: Furosemide 20 MG/2 ML VIAL 40 MG IVP (10:35)
[2023-10-27] MEDS: Pantoprazole 40 MG TABCR PO (10:35)
--- NOTE | 2023-10-27 10:36 | CMPROGNOTE_ITS ---
Date of service: 10/27/23 Time of Service: 10:36 Care Management Progress Note Progress Note Text Progress Note Text: S/O Nilam was sitting up in the recliner watching TV when CM met with her. She is awake and engages in conversation. Pt continues to be pleasant, is showing interest in her care and is working with PT. Pt has no concerns at this time. Currently has a midline, due to difficulty with her IV access per provider. Discharge plans are dependent on repeat cultures. Results pending from 10/26/23. Nilam has a bed offer at the [facility] Tuesday if she is able to transition to PO ABX. CM will continue to follow. A:73 year old admitted to [facility] 10/16/23 for Sepsis, diabetic foot infection, DKA P: STR vs. SWB1 (if needs IV abx.) Anticipate, Nilam will be medically ready for discharge to the [facility] on Tuesday10/29/23 on a course of PO ABX. Cultures are still pending. She will likely transport via [facility] w/c van and follow up with community providers and discharge plan of care. CM will continue to follow. SDOH(Care Management) Screening Will the Patient Participate in the Screening?: Unable to obtain
[2023-10-27] MEDS: Nystatin POWDER 15 GM JAR TP ×2 (10:39→20:12)
--- NOTE | 2023-10-27 11:24 | PT.INTREAT ---
PT Notes Visit Reasons: Cellulitis, Diabetic Foot Wound, DKA Date: 10/27/23 PRECAUTIONS: Fall. Standard. Activity as tolerated. Contact precautions SUBJECTIVE: Pt in recliner when approached for therapy session, pt reports she had a good night sleep, feeling stronger today, agreed to participating with therapy session. Objective: Love catheter in place Therapeutic Activities 62918: Direct one-on-one instruction in dynamic activities to improve functional performance. ?? BED MOBILITY/TRANSFERS? Rolling L/R: supervision Supine-sit: supervision? Sit-supine: ?supervision? Sit-stand: ? SBA? Stand-sit: ?? SBA? Bed-Chair:? ? SBA ? Chair-bed: SBA Provided skilled cues and instruction on performance and technique throughout. Gait Training 57602: Direct one-on-one instruction and skilled instruction in: Employing an assistive device Modified weight-bearing status Movement sequencing Turning and movement with proper form Provided verbal cues for equipment management and technique Provided instruction in gait pattern Patient education regarding pacing and breathing techniques to maximize activity tolerance? GAIT? Assistive Device: ?? FWW? Weight bearing: WBAT Assist: ?SBA ? Distance:?? ?100'x2 seated rest break in between ? Deviation: ? Slow jonathan, low step height, short step length, stoop forward position ? Therapeutic Exercises 32970: Direct one-on-one instruction in therapeutic exercises to develop strength, endurance, range of motion and flexibility.? Provided skilled instruction in proper exercise performance Provided skilled manual cues to facilitate proper muscle recruitment and/or form: Exercises - Supine SLR - 1 x daily - 7 x weekly - 1 sets - 10 reps - Supine hip abduction - 1 x daily - 7 x weekly - 1 sets - 10 reps - Supine heel slides - 1 x daily - 7 x weekly - 1 sets - 10 reps - Supine clamshells - 1 x daily - 7 x weekly - 1 sets - 10 reps - Seated Hip Flexion - 1 x daily - 7 x weekly - 1 sets - 10 reps - Seated Long Arc Quad - 1 x daily - 7 x weekly - 1 sets - 10 reps - Seated Hip Abduction - 1 x daily - 7 x weekly - 1 sets - 10 reps - Seated Heel Raise - 1 x daily - 7 x weekly - 1 sets - 10 reps - Seated Toe Raise - 1 x daily - 7 x weekly - 1 sets - 10 reps - Sit to Stand - 1 x daily - 7 x weekly - 1 sets - 10 reps Assessment: Pt showing improved endurance and strenght, did not have any SOB with activity, no complaint of pain during the duration of session. PLAN: Continue with balance training, global strengthening and general conditioning for improved safety, mobility and activity tolerance until pt is ready for DC. TREATMENT CODE/TIME: [id number] 25mins (10:05-10:30am)
[2023-10-27 11:29] LABS: Absolute Lymphocyte Count 1.89 10^3/uL (1.2-3.4); HCT 35.5 % (36.0-46.0); HGB 11.1 g/dL (11.2-15.7); Lymphocytes % 12.1 %; MCH 25.1 pg (27.0-33.0); MCHC 31.3 % (32.0-36.0); MCV 80 fL (80-95); MPV 8.4 fL (8.0-11.0); Neutrophils % 76.5 %; Platelet Count 536 10^3/uL (130-400); RBC 4.43 10^6/uL (3.93-5.22); RDW 15.5 % (11.7-14.6); RDW-SD 45.2 fL; WBC 15.59 10^3/uL (4.4-10.8)
[2023-10-27 11:30] LABS: Abs Immature Grans 0.63 10^3/uL (0.0-0.06); Absolute Basophil Count 0.05 10^3/uL (0.0-0.2); Absolute Eosinophil Count 0.17 10^3/uL (0.0-0.7); Absolute Monocyte Count 0.93 10^3/uL (0.1-0.8); Absolute Neutrophil Count 11.92 10^3/uL (1.2-6.7); Basophils % 0.3 %; Diff Comment Diff Reviewed; Eosinophils % 1.1 %
[2023-10-27 11:34] LABS: ESR 91 mm/hr (0-30)
--- NOTE | 2023-10-27 14:31 | PT.INTREAT ---
PT Notes Visit Reasons: Cellulitis, Diabetic Foot Wound, DKA Physical Therapy Inpatient Progress Note Date: 10/27/2023 Dates of Service: 10/18/2023 through 10/25/2023 Referring Doctor: Anish Taylor MD PT Orders: PT CONSULT: Extended Stay Weakness Precautions: Fall. On contact precautions. Activity as tolerated. Subjective: Feels much better. Agreeable to getting out of bed and doing some walking inside room. Understands that although she can put as much weight on her R foot now per Dr. Castellano, she still need to off-load the R heel during walking. Happy to know that one of her ulcer is now healed. Glad that she could use the shiny pink croc slipper her granddaughter bought for her. Hopes to regain her strength back and walk independently using her walker. Objective: General Observation: Sitting on chair. IV access through L UE. Love catheter in place. High BMI. R leg and foot more swollen than L. Wound dressing to R heel. Telemonitor on. Mental Status: Alert and oriented as to person, place, time, and purpose. Able to pay attention, focus, and respond appropriately. Pain: None reported Vital Signs: HR 89 bpm and oxygen saturation 96% on RA after ambulation activity Bed Mobility/Transfers: Minimal cueing provided for use of B hands as needed for support, movement sequence, AD management, and posture to reduce fall risk and minimize pain report Sit to stand from high bedside chair stand by assist Stand to sit with contact guard assist Gait: Facilitated safe and correct performance of level surface ambulation covering a distance of 100 feett using front-wheeled walker with conatct guard assist and wheelchair follow requiring minimal verbal cueing for limb advancement, AD management, and posture to reduce fall risk and minimize pain report. WBAT through R forefoot, R heel off-loading. Minimal shortness of breath. Assessment: Activity tolerance improving. Compliant with WB precaution to allow for healing of R heel ulcer. R leg swelling diminishing but still more swollen than the L leg. Overall feels much better but still would want to be independent using her FWW before going home. Plan of Care/Treatment Plan: 1-2x/day, 7 days/week x 1 week. Plan of care has been reviewed with the SHIPPING AND RECEIVING COORDINATOR providing the service under Physical Therapy direction. Initiate Physical Therapy intervention for pain management as needed, strengthening, bed mobility, transfers, gait, stairs, balance training, and use of assistive device. THERA EX: Seated marches x 10 Chest expansion exercises while performing shoulder flexion/extension with DBE x 5 LAQs x 10 Chest expansion exercises while performing shoulder horizontal abduction/adduction with DBE x 5 Heel raises x 10 Toes raises x 10 DISCHARGE RECOMMENDATIONS: [] Home with no services [] [] Home with services [] Home with outpatient PT [] [X] SNF for continued rehabilitation. Patient will benefit from half-way facility placement for continued skilled physical therapy services in order to progress mobility level, strength, and balance in preparation for a safe discharge to home. [] [facility] [] [] SNF versus LTC based on ability to participate and progress [] TREATMENT CODE/TIME: 94704 x 15 minute,, 82044 x 12 minutes for 1 unit (14:31-14:58).
[2023-10-27 16:03] LABS: Bilirubin Negative (Negative); Blood Small (Negative); Clarity Clear (Clear); Glucose Negative (Negative); Ketones Trace mg/dL (Negative); Leukocyte Esterase Negative (Negative); Nitrite Negative (Negative); Specific Gravity 1.015 (1.005-1.025); Urobilinogen 0.2 mg/dL (Up to 0.2)
[2023-10-27 16:14] LABS: Bacteria Negative HPF (Negative); C & S Indicated? No; Casts 0-2 Fine Granular LPF (Negative); Crystals Negative HPF (Negative); Epithelial Cells Few HPF (Negative); Mucus Negative (Negative)
[2023-10-27] MEDS: Furosemide 40 MG TAB PO (16:49)
[2023-10-27] MEDS: Enoxaparin 40 MG/0.4 ML SYR SC (17:47)
[2023-10-27] MEDS: Insulin Glargine 300 UNITS/3 ML PEN 25 UNITS SC (20:14)
--- NOTE | 2023-10-28 | DI.MRI_ITS ---
Exam(s) MR LOWER JOINT RT WO EXAM: MR LOWER JOINT RT WO CLINICAL HISTORY: R/o osteomyelitis in the setting of diabetic ulcer. TECHNIQUE: Multiplanar multisequence MRI Examination was performed. CONTRAST MATERIAL: None COMPARISON: MRI 17 October 2023, plain films 16 October 2023 FINDINGS: BONES/JOINTS: Heel spurs. Normal marrow signal. No joint effusion. LIGAMENTS: The medial and lateral collateral ligaments are intact. MUSCULOTENDINOUS STRUCTURES: Visualized portion of the planar fascia is unremarkable. No tendon tear or thickening.. SOFT TISSUES: Mild edema in plantar aspect of calcaneal tuberosity. Abscess IMPRESSION: Mild soft tissue edema at the heel. No evidence of osteomyelitis or abscess. DATA REPOSITORY:
[2023-10-28 02:57] VITALS: BP 121/72; PULSE 92; RESP 14; TEMP 35.8; O2SAT 93
[2023-10-28] MEDS: Levothyroxine 150 MCG TAB PO (06:21)
[2023-10-28 06:52] LABS: Abs Immature Grans 0.48 10^3/uL (0.0-0.06); Absolute Lymphocyte Count 2.05 10^3/uL (1.2-3.4); Absolute Monocyte Count 1.14 10^3/uL (0.1-0.8); Absolute Neutrophil Count 15.11 10^3/uL (1.2-6.7); Basophils % 0.5 %; Eosinophils % 0.7 %; HCT 33.7 % (36.0-46.0); HGB 10.9 g/dL (11.2-15.7); Immature Grans % 2.5 %; Lymphocytes % 10.8 %; MCH 25.4 pg (27.0-33.0); MCHC 32.3 % (32.0-36.0); MCV 79 fL (80-95); MPV 8.9 fL (8.0-11.0); Neutrophils % 79.5 %; Platelet Count 423 10^3/uL (130-400); RBC 4.29 10^6/uL (3.93-5.22); RDW 15.6 % (11.7-14.6); RDW-SD 44.4 fL; WBC 19.01 10^3/uL (4.4-10.8)
[2023-10-28 07:00] LABS: Absolute Eosinophil Count 0.13 10^3/uL (0.0-0.7)
[2023-10-28 07:08] LABS: BUN 27 mg/dL (7-18); CREATININE 1.3 mg/dL (0.55-1.02); Calcium 8.7 mg/dL (8.5-10.1); Chloride 95 mmol/L (98-107); Estimated GFR 43.15 (mL/min/1.73m2); Glucose 230 mg/dL (74-106); Magnesium 1.6 mg/dL (1.8-2.4); Potassium 4.6 mmol/L (3.5-5.1); Sodium 130 mmol/L (136-145)
[2023-10-28 07:51] VITALS: BP 115/69; PULSE 88; RESP 17; TEMP 36.5; O2SAT 92
[2023-10-28] MEDS: IMIPENEM/CILASTATIN 500 MG in Normal Saline 100 ML 200 MG IVPB (08:36)
[2023-10-28] MEDS: Normal Saline Flush 10 ML SYR IVP (08:37)
[2023-10-28] MEDS: Atorvastatin 40 MG TAB PO (08:38)
[2023-10-28] MEDS: Furosemide 40 MG TAB PO (08:38)
[2023-10-28] MEDS: Docusate Sodium 100 MG CAP PO (08:38)
[2023-10-28] MEDS: Acetaminophen 500 MG TAB 1000 MG PO (08:38)
[2023-10-28] MEDS: Ferrous Sulfate 325 MG TAB PO (08:38)
[2023-10-28] MEDS: Potassium Chloride 20 MEQ TABCR PO (08:38)
[2023-10-28] MEDS: Gabapentin 300 MG CAP PO (08:38)
[2023-10-28] MEDS: Pantoprazole 40 MG TABCR PO (08:38)
[2023-10-28] MEDS: Insulin Aspart 300 UNITS/3 ML PEN SC ×4 (08:40→12:38)
[2023-10-28] MEDS: Insulin Glargine 300 UNITS/3 ML PEN 15 UNITS SC (08:41)
--- NOTE | 2023-10-28 09:01 | PDOC.CMDIS ---
Date of service: 10/28/23 Time of Service: 09:01 LACE Index Scoring Tool Questions: Length of Stay (in days): 7 - 13 Was the patient admitted via the E.D.?: Yes Comorbidities: with End Organ Damage E.D. Visits: 2 Answers: Total Score: 12 Risk of Readmission: High Risk Care Management Discharge Plan Reason for Hospitalization: Cellulites, Diabetic foot wound, DKA Discharge Plan: Discharge to SNF for STR via [facility] W/C [place]. Follow up with facility/community providers and her discharge plan of care as instructed. Patient/Family Education Needs: Review discharge instructions, limitations, medications and plan to follow up with community providers. Discuss ask me three. Services Needed at Discharge: Long Term Facility ([facility]) and Transportation ([facility] W/C van coordinated by [facility]) SDOH Health Related Social Needs: No Data to Display
[2023-10-28] MEDS: MAGNESIUM SULFATE 2 GM/50 ML BAG IVINF (09:54)
[2023-10-28] MEDS: Linezolid 600 MG TAB PO (12:04)
[2023-10-28] MEDS: Nystatin POWDER 15 GM JAR TP (12:04)
--- NOTE | 2023-10-28 12:05 | DSE_ITS ---
Date of service: 10/28/23 Time of Service: 09:30 DS: Diagnosis Discharge Diagnosis (1) Gram-negative bacteremia: Status: Acute (2) Diabetic foot infection: Status: Acute (3) Fever: Status: Acute (4) DKA (diabetic ketoacidoses): Status: Resolved (5) Poorly controlled type 2 diabetes mellitus with peripheral neuropathy: Status: Acute (6) Obesity: Status: Chronic (7) DVT prophylaxis: Status: Acute (8) Pleural effusion, left: Status: Acute (9) Discharge planning issues: Status: Acute Discharge Plan Disposition [facility] Condition: Improving Discharge Details Reason For Visit: Cellulitis, Diabetic Foot Wound, DKA Admit Date/Time: 10/16/23 15:37 Admit Provider: Anish Taylor Attending Provider: Anish Taylor Primary Care Provider: Unknown,Unknown Hospital Course Hospital Course: This 73-year-old female patient with past medical history of diabetes type 2 requiring insulin and metformin, hyperlipidemia on atorvastatin, previous CVA presented to the ED at [facility] on 10/16/2023 for evaluation of nausea, vomiting, uncontrolled blood sugars. The patient also noticed to have a left heel ulcer with eschar and x-ray showing prominent soft tissue swelling around ankle and the foot without gas. There was no evidence of osteomyelitis. Labs in the ED were remarkable for WBC of 20 800, glucose of 511, anion gap of 15.3, urine showing ketones at 80 mg/dL as well as positive nitrate with many bacteria and glycosuria of greater than 1000 mg/dL. Patient was started on IV antibiotics for diabetic foot ulcer and she was treated with Zosyn and subsequently has been ordered vancomycin as well. She was given 10 units of NovoLog which brought her glucose down to 489. At that point was decided to start her on insulin drip and admit her to the intensive care unit for treatment of DKA and diabetic foot ulcer and sepsis secondary to her diabetic foot wound. During the stay, urine and blood cultures resulted ESBL E. coli which was treated with IV imipenem for total of 10 days. Podiatry was consulted and treatment of the right foot ulcer with Zyvox as well as Medihoney dressing dressing as described below was pursued and to be continued after discharge..Home dose basal insulin was adjusted and the patient will be discharged on new dosing. The patient was found to have an elevated BNP and had received IV furosemide and was transitioned to oral furosemide to be continued upon discharge to the [facility]. Patient also received magnesium and potassium replacement during the stay and will be discharged on daily oral dosing of dose electrolytes. other chronic conditions were managed as per patient home med regimen. This morning, this provider spoke to Angelika GILL at the [facility], discussed concer n regarding WBC at 19 today with max at 26 and lowest at 13 during stay with the trend with ESR going from 46 to 91 as treatment forsuspected MRSA in the wound on Nilam's right heel. Planned to send home after repeat MRI to the right lower extremity to rule out osteomyelitis once again on Zyvox as the patient is afebrile for over 72 hours, hemodynamically stable. Dr. Celeste from podiatry at send the patient and concluded that no immediate surgical interventions were needed while the patient is getting treated with Medihoney dressing, 4 x 4 soaked in Dakin's, Kerlix and Alok wrap with offloading with a Prevalon boot. Podiatry also recommended follow-up appointment in office in a week after discharge. Discussion also occurred regarding ESBL E. coli finding in urine and in blood culture that was treated with imipenem IV for 10 days resulting in a negative urine analysis on 10/27/2023, and a negative blood culture as of 10/27/2023. Other surgical discussed were 1 L fluid restriction for symptomatic hyponatremia that might be of a chronic nature, mag oxide supplementation orally as patient as being between 1.3 and 2.1 despite IV mag replacement, inpatient IV Lasix transition to outpatient oral Lasix. Repeated MRI today only shows soft tissue edema at the heel without evidence of osteomyelitis or abscess. The patient will have to follow-up with Dr. Castellano from podiatry in a week from discharge. It is also recommended for the patient to have a basic metabolic panel done within a week from discharge. Discussed with Dr. Pillai Home Meds and New Rx's Prescriptions: New Bio-K plus 50 billion cell capsule,delayed release(DR/EC) 1 cap PO DAILY Qty: 10 0RF insulin glargine [Lantus Solostar U-100 Insulin] 100 unit/mL (3 mL) Insulin Pen 15 unit subcut QAM Qty: 15 0RF linezolid 600 mg Tablet 600 mg PO BID Qty: 10 0RF magnesium oxide 400 mg (241.3 mg magnesium) Tablet 400 mg PO DAILY Qty: 30 0RF potassium chloride [Klor-Con M20] 20 mEq Tablet,Er Particles/Crystals 20 meq PO DAILY Qty: 30 0RF insulin glargine [Lantus Solostar U-100 Insulin] 100 unit/mL (3 mL) Insulin Pen 25 unit subcut HS Qty: 15 0RF furosemide 40 mg Tablet 40 mg PO BID@0830,1600 Qty: 60 0RF Continued benzonatate 200 mg capsule 200 mg PO Q8H PRN Rx Instructions: 200 mg orally PRN; gabapentin 300 mg capsule 300 mg PO Q8H atorvastatin 40 mg tablet 40 mg PO DAILY trazodone 50 mg tablet 50 mg PO QHS PRN acetaminophen 500 mg Tablet 1,000 mg PO TID MDD 3000 mg Qty: 60 0RF docusate sodium [Colace] 100 mg Capsule 100 mg PO DAILY Qty: 30 0RF ferrous sulfate 325 mg (65 mg iron) Tablet 325 mg PO DAILY Qty: 30 0RF pantoprazole 40 mg Tablet,Delayed Release (Dr/Ec) 40 mg PO DAILY@0730 Qty: 10 0RF metformin 500 mg tablet 500 mg PO BIDWMEAL Qty: 60 0RF (DME) lancets [FreeStyle Lancets] 28 gauge misc See Rx Instructions .Route Qty: 100 0RF Rx Instructions: As directed (DME) blood-glucose meter [FreeStyle Lite Meter] Kit See Rx Instructions .Route Qty: 1 0RF Rx Instructions: As directed (DME) FreeStyle Lite Strips Strip See Rx Instructions .Route Qty: 100 0RF Rx Instructions: As directed levothyroxine 150 mcg tablet 150 mcg PO DAILY Discontinued insulin glargine 100 unit/mL solution 12 unit subcut DAILY Qty: 0 0RF insulin glargine [Lantus Solostar U-100 Insulin] 100 unit/mL (3 mL) Insulin Pen 20 unit subcut DAILY Qty: 15 0RF Rx Instructions: AT bedtime Discharge Instructions Stand Alone Forms: Nursing Discharge Form Activity:: Activity as Tolerated Equipment/Supplies:: Walker Diet:: heart healthy diabetic Discharge Orders Discharge Orders: Discharge Order (Routine); Ordered 10/28/23 Ordered By: Roseanne Kamara DS: Summary Time Spent with Patient providing and/or coordinating discharge services: Greater than 30 minutes Status at Discharge Functional status at discharge: uses cane/walker Overall status at discharge: patient is progressing back to baseline Mental Status: mental status grossly normal Speech and Movement: speech and movement normal Mood: congruent mood Affect: normal affect Quality:SDOH Health Related Social Needs: No Data to Display Exam Narrative Exam Narrative: Constitutional The patient is sitting in recliner comfortable, without acute distress and has an obese body HENMT: Facial structures with normal appearance Neck: Normal ROM, no meningeal signs Neuro:alert and oriented to self, person, place time and situation. No neurological focal deficit Chest:Chest is symmetrical and normal appearance Resp: Normal respiratory pattern, speaks in full sentences, unlabored breathing, clear lung bilaterally, diminished left base Cardio:Tele SR HR 65- 80, regular rhythm,positive pulses to all 4 ext., trace edema to lower ext. R>L GI: Abdomen is large,, not distended, soft and non tender, bowel sounds are present : Negative Costovertebral angle tenderness, no bladder distension-crump in place for I&O Back/spine/Pelvis: No back tenderness, normal alignment Integumentary:right heel cellulitis improving Psych: RASS 0, congruent mood and normal affect. Psych Mental Status: mental status grossly normal Speech and Movement: speech and movement normal Mood: congruent mood Affect: normal affect DS: Data Vitals/I&O Vitals and I&O: Vital Signs Temperature 36.5 C 10/28/23 07:51 Temperature Source Tympanic 10/28/23 07:51 Pulse 88 10/28/23 07:51 Pulse Rhythm Regular 10/28/23 08:00 Pulse 94 H 10/18/23 09:01 Respiratory Rate 17 10/28/23 07:51 Respiratory Effort Normal 10/28/23 08:00 Respiratory Depth Normal 10/28/23 08:00 Respiratory Pattern Normal 10/28/23 08:00 Blood Pressure 115/69 10/28/23 07:51 Blood Pressure Mean 88 10/18/23 14:49 Blood Pressure Position Supine 10/16/23 12:29 Pulse Oximetry 92 10/28/23 07:51 Oxygen Delivery Method Room Air 10/28/23 07:51 Oxygen Flow Rate 0 10/28/23 07:51 Fraction of Inspired Oxygen (FIO2) 28 10/24/23 02:06 Pain Level 0 10/28/23 07:51 Comment OXYGEN SAT 88, BED CHANGE, INCENTIVE SPIR., ENCOURAGED COUGH- O2 UP TO 92-93 ON 2L VIA NC 10/23/23 05:11 Intake & Output 10/27/23 10/28/23 10/28/23 23:59 11:59 23:59 Intake Total 200 / 522 721 / 721 Output Total 1300 / 2750 2124 Balance -1100 / -2228 -1404 / -1404 Weight 109.004 kg Intake: IV 200 / 300 100 / 100 Oral 621 / 621 Output: Urine 1300 / 2750 2124 Other: Urine Color Yellow Yellow Urine Appearance Clear Clear Urine Odor Normal Comment pT heavily incontinent in brief some urine voided missed the pure whick Stool Size Small Stool Characteristics Soft Voiding Methods Diaper Incontinent Data Completed and Pending Labs on day of discharge: Labs from last 24 hours 10/28/23 10/27/23 06:34 15:55 WBC 19.01 H RBC 4.29 Hgb 10.9 L Hct 33.7 L MCV 79 L MCH 25.4 L MCHC 32.3 RDW 15.6 H Plt Count 423 H MPV 8.9 Immature Gran % 2.5 Neutrophils % 79.5 Lymphocytes % 10.8 Monocytes % 6.0 Eosinophils % 0.7 Basophils % 0.5 Nucleated RBC % 0.0 Absolute Neutrophils 15.11 H Absolute Lymphocytes 2.05 Absolute Monocytes 1.14 H Absolute Eosinophils 0.13 Absolute Basophils 0.10 Sodium 130 L Potassium 4.6 Chloride 95 L Carbon Dioxide 28.0 Anion Gap 7.0 BUN 27 H Creatinine 1.3 H Est GFR (CKD-EPI 2020) 43.15 Glucose 230 H Calcium 8.7 Magnesium 1.6 L Urine Color Yellow Urine Clarity Clear Urine pH 6.0 Ur Specific [place] 1.015 Urine Protein 30 H Urine Ketones Trace H Urine Blood Small H Urine Nitrite Negative Urine Bilirubin Negative Urine Urobilinogen 0.2 Ur Leukocyte Esterase Negative Urine RBC 10-20 H Urine WBC 3-5 Ur Epithelial Cells Few Urine Crystals Negative Urine Bacteria Negative Urine Casts 0-2 Fine Granular Urine Mucus Negative Urine Other Many Yeast Ur Culture Indicated? No Urine Glucose Negative Preliminary micro results at discharge 10/24/23 03:26 Blood Culture - Preliminary Blood NO GROWTH 96 HOURS 10/26/23 13:35 Blood Culture - Preliminary Blood NO GROWTH 24 HOURS 10/26/23 13:42 Blood Culture - Preliminary Blood NO GROWTH 24 HOURS PFSH All Active Problems (Updated 10/27/23 @ 18:52 by Roseanne Kamara APRN) Obesity (Chronic) Discharge planning issues (Acute) Gram-negative bacteremia (Acute) Fever (Acute) Pleural effusion, left (Acute) Unstageable pressure ulcer of right heel (Acute) DVT prophylaxis (Acute) Poorly controlled type 2 diabetes mellitus with peripheral neuropathy (Acute) Diabetic foot infection (Acute) Low serum iron (Acute) Lumbar back pain with radiculopathy affecting right lower extremity (Acute) Ambulatory dysfunction (Acute) Weakness (Acute) Hyperglycemia due to type 2 diabetes mellitus (Acute) Medical History Palliative care patient Physician orders for life-sustaining treatment (POLST) form indicates patient wish for [id number] status ACP (advance care planning) Urinary tract infection Stroke Diabetes CHF (congestive heart failure) Surgical History History of ERCP S/P tonsillectomy Social History Smoking/Tobacco Use Status: Never Smoking risk assessment performed?: Yes Alcohol Intake: never Drug use: Never Substance use type: does not use Housing: apartment What is your relationship status?: Panel score (0-1 are the most socially isolated patients): 0 Time Spent with Patient Time Spent with Patient: >85 minutes Time was spent: preparing to see the patient(eg.review tests), obtaining and/or reviewing separately otained hiistory, ordering medications,tests, procedures, referring, communicating with other health neonatal intensive care unit nurse, indepentently interpreting results, counseling the patient and care coordination
--- NOTE | 2023-10-28 12:55 | CHAPLAIN ---
Nilam was preparing to be transferred to the [facility] later today. She is from [facility] and moved here to be closer to her daughter. Nilam thinks her daughter lives in [place], but isn't sure. She know one at [facility], except for a woman who works nights three days a week. Nilam was very appreciative of the prayer shawl I gave her.
== END 2023-10-28 12:49 | disposition skilled nursing facility (03) | DRG 638 ==
LOC: ER 16:28 → ICU 16:49 → MS 10-18 15:18
PROVIDERS: Family Medicine; General Practice; Nurse Practitioner Acute Care; Admitting Provider Internal Medicine; Emergency Provider Emergency Medicine; Visit Provider Internal Medicine
DX: E11.10 Type 2 diabetes mellitus with ketoacidosis without coma (principal); E87.1 Hypo-osmolality and hyponatremia; L03.115 Cellulitis of right lower limb; L97.418 Non-pressure chronic ulcer of right heel and midfoot with other specified severity; N39.0 Urinary tract infection, site not specified; Z68.41 Body mass index [BMI] 40.0-44.9, adult; Z16.12 Extended spectrum beta lactamase (ESBL) resistance; R78.81 Bacteremia; E11.628 Type 2 diabetes mellitus with other skin complications; E11.621 Type 2 diabetes mellitus with foot ulcer; E66.9 Obesity, unspecified; E11.42 Type 2 diabetes mellitus with diabetic polyneuropathy; E78.5 Hyperlipidemia, unspecified; E61.1 Iron deficiency; M54.16 Radiculopathy, lumbar region; R53.1 Weakness; R26.2 Difficulty in walking, not elsewhere classified; Z22.322 Carrier or suspected carrier of Methicillin resistant Staphylococcus aureus; B95.62 Methicillin resistant Staphylococcus aureus infection as the cause of diseases classified elsewhere; Z79.4 Long term (current) use of insulin; Z79.84 Long term (current) use of oral hypoglycemic drugs; Z86.73 Personal history of transient ischemic attack (TIA), and cerebral infarction without residual deficits; B96.20 Unspecified Escherichia coli [E. coli] as the cause of diseases classified elsewhere; I50.9 Heart failure, unspecified
CPT/HCPCS: 97597; 00123; 36415; 36416; 71275; 73721; 80048; 80053; 82805; 82962; 83935; 84145; 85027; 85652; 87040; 87077; 87641; 92526; 92610; 93005; 93306; 96361; 96365; 96367; 96368; 97110; 97116; 97162; 97530; 99222; 99231; 99232; 99233; 99291; J1650; 71045; 73630; 81003; 81015; 83605; 83735; 83880; 83930; 84100; 84484; 85025; 86140; 87070; 87075; 87086; 87186; 87205; 93010; 94660; 94667; 94668; 94760; 99239; J0131; J0696; J0743; J0780; J1815; J1940; J1941; J2020; J2470; J2543; J3370; J3372; J3475; J3490; J7620

== ENCOUNTER 2023-10-31 18:08 | Outpatient (REF) | payer MEDICARE, SELFPAY ==
[2023-10-31 17:26] LABS: Abs Immature Grans 0.25 10^3/uL (0.0-0.06); Absolute Eosinophil Count 0.49 10^3/uL (0.0-0.7); Absolute Neutrophil Count 9.65 10^3/uL (1.2-6.7); Basophils % 0.4 %; Eosinophils % 3.5 %; HCT 33.9 % (36.0-46.0); HGB 10.5 g/dL (11.2-15.7); Immature Grans % 1.8 %; Lymphocytes % 18.9 %; MCH 25.5 pg (27.0-33.0); MCV 83 fL (80-95); MPV 8.9 fL (8.0-11.0); Monocytes % 6.4 %; Platelet Count 526 10^3/uL (130-400); RBC 4.11 10^6/uL (3.93-5.22); RDW 15.9 % (11.7-14.6); WBC 13.99 10^3/uL (4.4-10.8)
[2023-10-31 17:32] LABS: Absolute Basophil Count 0.06 10^3/uL (0.0-0.2); Absolute Lymphocyte Count 2.64 10^3/uL (1.2-3.4)
[2023-10-31 17:38] LABS: Iron 57 ug/dL (50-170); Total Iron Binding Capacity 243 ug/dL (250-450); Transferrin Sat 23 % (15-50)
[2023-10-31 17:52] LABS: Hemoglobin A1C > 13.0 % (<5.7)
[2023-10-31 18:03] LABS: Vitamin D 25 Total 7.5 ng/mL (30-100)
[2023-10-31 18:08] LABS: ALT 50 U/L (14-59); AST 18 U/L (15-37); Albumin 2.7 g/dL (3.4-5.0); Alkaline Phosphatase 381 U/L (46-116); Anion Gap 9.5 mmol/L (3-11); BUN 24 mg/dL (7-18); Bilirubin, Total 0.4 mg/dL (0.2-1.0); CO2 29.5 mmol/L (21.0-32.0); CREATININE 1.1 mg/dL (0.55-1.02); Calcium 8.9 mg/dL (8.5-10.1); Chloride 93 mmol/L (98-107); Estimated GFR 52.73 (mL/min/1.73m2); Ferritin 207 ng/mL (8-252); Folate 8.8 ng/mL (8.6-20.0); Glucose 339 mg/dL (74-106); Magnesium 1.5 mg/dL (1.8-2.4); Potassium 4.9 mmol/L (3.5-5.1); Sodium 132 mmol/L (136-145); Total Protein 7.7 g/dL (6.4-8.2); Vitamin B12 1040 pg/mL (193-986)
[2023-10-31 18:55] LABS: FREE T4 0.85 ng/dL (0.76-1.46)
== END 2023-10-31 18:09 | disposition home or self-care (01) ==
LOC: LBN 18:08
PROVIDERS: Visit Provider Nurse Practitioner Gerontology
DX: E11.42 Type 2 diabetes mellitus with diabetic polyneuropathy (principal); E87.1 Hypo-osmolality and hyponatremia; E83.42 Hypomagnesemia; E03.9 Hypothyroidism, unspecified; E78.5 Hyperlipidemia, unspecified
CPT/HCPCS: 80053; 82306; 82607; 82728; 82746; 83036; 83540; 83550; 83735; 84439; 84443; 85025

== ENCOUNTER → 2023-11-08 14:03 | Outpatient (BNVA) | payer MEDICARE, SELFPAY | PROVIDERS: Visit Provider Podiatrist | DX: L89.610 Pressure ulcer of right heel, unstageable; E11.42 Type 2 diabetes mellitus with diabetic polyneuropathy; E11.65 Type 2 diabetes mellitus with hyperglycemia; E11.628 Type 2 diabetes mellitus with other skin complications; L08.9 Local infection of the skin and subcutaneous tissue, unspecified | CPT/HCPCS: 11042 ==

== ENCOUNTER 2023-11-11 06:54 | Inpatient (IN) | payer MEDICARE, MEDICAID, SELFPAY ==
[2023-11-11] VITALS (8 sets, daily range): BP systolic 113–140; BP diastolic 67–79; PULSE 75–97; RESP 17–22; TEMP 36.3–37; O2SAT 91–97
--- NOTE | 2023-11-11 07:00 | RT.EKG_ITS ---
APPROVED REPORT Exam: Resting ECG Reason for Exam: weak Patient Location: E HR:88 bpm ECG Measurements Heart Rate 88 AXIS VA 175 P 30 QRSd 132 QRS -52 QT 419 T 33 QTc 508 Conclusion Sinus rhythm...normal P axis, V-rate 60- 99 Left bundle branch block...QRSd>120, broad/notched R Physician: no stemi
[2023-11-11] MEDS: Normal Saline 500 ML IV (07:30)
--- NOTE | 2023-11-11 07:35 | DI.RAD_ITS ---
Exam(s) XR PORTABLE CHEST AP EXAM: XR PORTABLE CHEST AP CLINICAL HISTORY: cough, eval for pneumonia TECHNIQUE: 2D digital imaging was performed. COMPARISON: CT CT CHEST PE CTA from 10/24/2023 CR,XR XR PORTABLE CHEST AP from 10/24/2023 FINDINGS: Leads overlie the chest. LUNGS: Left lower lung field obscured by cardiac silhouette. Grossly clear. No pleural abnormality seen. HEART: Enlarged. AORTA: Normal diameter. BONES: Unremarkable for age. Soft tissues: Unremarkable. IMPRESSION: No acute findings. DATA REPOSITORY: RADIATION DOSE DELIVERED:
[2023-11-11 07:37] LABS: BE (Venous) 8 mmol/L (-2-3); HCO3 (Venous) 32 mmol/L (23-28); O2 Sat (Venous) 80 %; TCO2 (Venous) 30 mmol/L (24-29); pCO2 (Venous) 44 mmHg (41-51); pH (Venous) 7.47 (7.31-7.41); pO2 (Venous) 44 mmHg
[2023-11-11 07:41] LABS: Abs Immature Grans 0.07 10^3/uL (0.0-0.06); Absolute Eosinophil Count 0.31 10^3/uL (0.0-0.7); Absolute Lymphocyte Count 1.62 10^3/uL (1.2-3.4); Absolute Monocyte Count 1.65 10^3/uL (0.1-0.8); Absolute Neutrophil Count 10.95 10^3/uL (1.2-6.7); Basophils % 0.1 %; Eosinophils % 2.1 %; HCT 31.9 % (36.0-46.0); Immature Grans % 0.5 %; Lymphocytes % 11.1 %; MCH 25.4 pg (27.0-33.0); MCHC 31.3 % (32.0-36.0); MCV 81 fL (80-95); MPV 8.7 fL (8.0-11.0); Monocytes % 11.3 %; Neutrophils % 74.9 %; Platelet Count 383 10^3/uL (130-400); RBC 3.94 10^6/uL (3.93-5.22); RDW 16.2 % (11.7-14.6); RDW-SD 48.1 fL; WBC 14.62 10^3/uL (4.4-10.8)
[2023-11-11 07:42] LABS: Absolute Basophil Count 0.01 10^3/uL (0.0-0.2)
--- NOTE | 2023-11-11 07:45 | W.ED.GENAD ---
Discharge Plan Disposition Patient Disposition: Admit to [facility] Condition: Stable Discharge Details Chief Complaint: GenMedical Clinical Impression: Transaminitis, Acute cholecystitis Primary Care Provider: Unknown,Unknown ED Provider: Norberto Grijalva Home Meds and New Rx's Prescriptions: No Action MediHoney (honey) 80 % gel 1 applic topical DAILY Qty: 44 0RF benzonatate 200 mg capsule 200 mg PO Q8H PRN Rx Instructions: 200 mg orally PRN; atorvastatin 40 mg tablet 40 mg PO DAILY trazodone 50 mg tablet 50 mg PO QHS PRN acetaminophen 500 mg Tablet 1,000 mg PO TID MDD 3000 mg Qty: 60 0RF docusate sodium [Colace] 100 mg Capsule 100 mg PO DAILY Qty: 30 0RF ferrous sulfate 325 mg (65 mg iron) Tablet 325 mg PO DAILY Qty: 30 0RF pantoprazole 40 mg Tablet,Delayed Release (Dr/Ec) 40 mg PO DAILY@0730 Qty: 10 0RF metformin 500 mg tablet 500 mg PO BIDWMEAL Qty: 60 0RF (DME) lancets [FreeStyle Lancets] 28 gauge misc See Rx Instructions .Route Qty: 100 0RF Rx Instructions: As directed (DME) blood-glucose meter [FreeStyle Lite Meter] Kit See Rx Instructions .Route Qty: 1 0RF Rx Instructions: As directed (DME) FreeStyle Lite Strips Strip See Rx Instructions .Route Qty: 100 0RF Rx Instructions: As directed levothyroxine 150 mcg tablet 150 mcg PO DAILY Bio-K plus 50 billion cell capsule,delayed release(DR/EC) 1 cap PO DAILY Qty: 10 0RF insulin glargine [Lantus Solostar U-100 Insulin] 100 unit/mL (3 mL) Insulin Pen 15 unit subcut QAM Qty: 15 0RF linezolid 600 mg Tablet 600 mg PO BID Qty: 10 0RF magnesium oxide 400 mg (241.3 mg magnesium) Tablet 400 mg PO DAILY Qty: 30 0RF potassium chloride [Klor-Con M20] 20 mEq Tablet,Er Particles/Crystals 20 meq PO DAILY Qty: 30 0RF insulin glargine [Lantus Solostar U-100 Insulin] 100 unit/mL (3 mL) Insulin Pen 25 unit subcut HS Qty: 15 0RF furosemide 40 mg Tablet 40 mg PO BID@0830,1600 Qty: 60 0RF HPI General Date/Time Provider Initiated Documentation: 11/11/23 07:01. HPI Narrative: 73-year-old female with a past medical history of type 2 diabetes, high cholesterol, mild congestive heart failure with an ejection fraction of 50, hypothyroidism, reflux, who resides at the [facility], who presents today for evaluation of confusion. [facility] night nursing felt that the patient was slightly off compared to normal. Patient states that she feels somewhat weak. She has had a mild cough for the last few days. She denies any chest pain, abdominal pain, vomiting or diarrhea. She does admit to a very mild frontal headache. She denies any vision changes. She is ANO x 3 per EMS. She has no other personal complaints at this time. She denies any dysuria. She denies any fever or chills. No other complaints at this time. No other modifying factors. She denies any falls or trauma. Related Data Home Medications Medication Instructions Recorded Confirmed atorvastatin 40 mg tablet 40 mg PO DAILY 09/04/23 11/11/23 benzonatate 200 mg capsule 200 mg PO Q8H PRN 09/04/23 11/11/23 trazodone 50 mg tablet 50 mg PO QHS PRN 09/04/23 11/11/23 acetaminophen 500 mg tablet 1,000 mg (2 x 500 mg) PO TID #60 09/06/23 11/11/23 tabs blood sugar diagnostic (FreeStyle #100 ea 09/06/23 11/08/23 Lite Strips) blood-glucose meter (FreeStyle #1 ea 09/06/23 11/08/23 Lite Meter kit) docusate sodium 100 mg capsule 100 mg PO DAILY #30 caps 09/06/23 11/11/23 (Colace) ferrous sulfate 325 mg (65 mg 325 mg PO DAILY #30 tabs 09/06/23 11/11/23 iron) tablet lancets 28 gauge (FreeStyle #100 ea 09/06/23 11/08/23 Lancets) metformin 500 mg tablet 500 mg PO BIDWMEAL #60 tabs 09/06/23 11/11/23 pantoprazole 40 mg tablet,delayed 40 mg PO DAILY@0730 #10 tabs 09/06/23 11/11/23 release levothyroxine 150 mcg tablet 150 mcg PO DAILY 10/19/23 11/11/23 L. acidophilus,casei,rhamnosus 50 1 cap PO DAILY #10 caps 10/28/23 11/11/23 billion cell capsule,delayed release (Bio-K plus) furosemide 40 mg tablet 40 mg PO BID@0830,1600 #60 tabs 10/28/23 11/11/23 insulin glargine 100 unit/mL (3 15 unit (0.15 mL) subcut QAM #15 mL 10/28/23 11/11/23 mL) subcutaneous pen (Lantus Solostar U-100 Insulin) insulin glargine 100 unit/mL (3 25 unit (0.25 mL) subcut HS #15 mL 10/28/23 11/11/23 mL) subcutaneous pen (Lantus Solostar U-100 Insulin) linezolid 600 mg tablet 600 mg PO BID #10 tabs 10/28/23 11/11/23 magnesium oxide 400 mg (241.3 mg 400 mg PO DAILY #30 tabs 10/28/23 11/11/23 magnesium) tablet potassium chloride 20 mEq 20 meq PO DAILY #30 tabs 10/28/23 11/11/23 tablet,extended release(part/cryst) (Klor-Con M) honey 80 % topical gel (MediHoney 1 applic topical DAILY #44 mL 11/08/23 11/11/23 (honey)) Previous Rx's Medication Instructions Recorded acetaminophen 500 mg tablet 1,000 mg (2 x 500 mg) PO TID #60 09/06/23 tabs blood sugar diagnostic (FreeStyle #100 ea 09/06/23 Lite Strips) blood-glucose meter (FreeStyle #1 ea 09/06/23 Lite Meter kit) docusate sodium 100 mg capsule 100 mg PO DAILY #30 caps 09/06/23 (Colace) ferrous sulfate 325 mg (65 mg 325 mg PO DAILY #30 tabs 09/06/23 iron) tablet lancets 28 gauge (FreeStyle #100 ea 09/06/23 Lancets) metformin 500 mg tablet 500 mg PO BIDWMEAL #60 tabs 09/06/23 pantoprazole 40 mg tablet,delayed 40 mg PO DAILY@0730 #10 tabs 09/06/23 release L. acidophilus,casei,rhamnosus 50 1 cap PO DAILY #10 caps 10/28/23 billion cell capsule,delayed release (Bio-K plus) furosemide 40 mg tablet 40 mg PO BID@0830,1600 #60 tabs 10/28/23 insulin glargine 100 unit/mL (3 15 unit (0.15 mL) subcut QAM #15 mL 10/28/23 mL) subcutaneous pen (Lantus Solostar U-100 Insulin) insulin glargine 100 unit/mL (3 25 unit (0.25 mL) subcut HS #15 mL 10/28/23 mL) subcutaneous pen (Lantus Solostar U-100 Insulin) linezolid 600 mg tablet 600 mg PO BID #10 tabs 10/28/23 magnesium oxide 400 mg (241.3 mg 400 mg PO DAILY #30 tabs 10/28/23 magnesium) tablet potassium chloride 20 mEq 20 meq PO DAILY #30 tabs 10/28/23 tablet,extended release(part/cryst) (Klor-Con M) honey 80 % topical gel (FantastecHoney 1 applic topical DAILY #44 mL 11/08/23 (honey)) Allergies Allergy/AdvReac Type Severity Reaction Status Date / Time No Known Allergies Allergy Unverified 11/11/23 08:18 General Stated Complaint: GenMedical TRINIDAD: 3 Review of Systems All systems reviewed & are unremarkable except as noted in HPI and below Exam Narrative Exam Narrative: 1.Const: Well-nourished, Well-developed, appearing stated age 2.Eyes: PERRL, no conjunctival injection, and symmetrical lids. 3.ENT: Atraumatic external nose and ears. Dry MM. Neck: Symmetric, trachea midline, No thyromegaly. No nuchal rigidity. 4.CVS: +S1/S2, No murmurs or gallops. Peripheral pulses 2+ and equal in all extremities. Brisk capillary refill in all extremities. 5.RESP: Unlabored respiratory effort. Minimal crackle in the left lower lung field. No wheezes or rhonchi. 6.GI: Soft, Nontender/Nondistended, No hepatosplenomegaly. No guarding or rebound. 7.MSK: Normocephalic/Atraumatic, Extremities w/o deformity or ttp No cyanosis or clubbing, Normal movement of all extremities. No pitting edema or calf tenderness. 8.Skin: Warm, Dry. Small chronic well-healing ulcer on the right heel. No surrounding erythema or warmth. 9.Neuro: information coder II-XII grossly intact. Sensation grossly intact, no focal neurologic deficits. 10.Psych: (AAO) x3. Appropriate mood and affect Course Vital Signs Vital signs: Vital Signs Temperature 37.0 C 11/11/23 06:50 Pulse 93 H 11/11/23 06:50 Respiratory Rate 20 11/11/23 06:50 Blood Pressure 140/67 11/11/23 06:50 Pulse Oximetry 91 L 11/11/23 06:50 Temperature 37.0 C 11/11/23 07:01 Temperature Source Oral 11/11/23 07:01 Pulse 93 H 11/11/23 07:01 Respiratory Rate 20 11/11/23 07:01 Respiratory Effort Normal, Non-Labored 11/11/23 06:59 Blood Pressure 140/67 11/11/23 07:01 Blood Pressure Position Supine 11/11/23 07:01 Pulse Oximetry 91 L 11/11/23 07:01 Oxygen Delivery Method Room Air 11/11/23 07:01 Oxygen Flow Rate 0 11/11/23 07:01 Pain Level 8 11/11/23 07:01 Comment headache 11/11/23 07:01 Lab/Test Results Lab/Test Results: Laboratory Tests Range/Units 11/11/23 11/11/23 07:07 07:18 VBG pH (7.31-7.41) 7.47 H VBG pCO2 (41-51) mmHg 44 VBG pO2 mmHg 44 VBG HCO3 (23-28) mmol/L 32 H VBG Total CO2 (24-29) mmol/L 30 H VBG O2 Saturation % 80 VBG Base Excess (-2-3) mmol/L 8 H VBG Lactate (0.6-1.4) mmol/L 1.0 Lipase Cancelled TSH Cancelled Medical Decision Making 73-year-old female with a past medical history of type 2 diabetes, high cholesterol, mild congestive heart failure with an ejection fraction of 50, hypothyroidism, reflux, who resides at the [facility], who presents today for evaluation of confusion. [facility] night nursing felt that the patient was slightly off compared to normal. Patient states that she feels somewhat weak. She has had a mild cough for the last few days. She denies any chest pain, abdominal pain, vomiting or diarrhea. She does admit to a very mild frontal headache. She denies any vision changes. She is ANO x 3 per EMS. She has no other personal complaints at this time. She denies any dysuria. She denies any fever or chills. No other complaints at this time. No other modifying factors. She denies any falls or trauma. Exam demonstrates well-appearing female, dry mucous membranes, mild chronic ulcer on the right heel, no redness or warm to suggest cellulitis. No evidence of bony involvement. No atypical tenderness. Patient does demonstrate mild crackle in the left lower lung field. She is mildly hypoxic. Concern is for urinary tract infection, pneumonia with her cough and crackle, dehydration. Symptoms are inconsistent with sepsis or septic shock. Will evaluate for these etiologies, gently rehydrate, monitor closely and reassess 10 AM Laboratory workup shows evidence of white count, left shift, no bandemia. Comprehensive metabolic panel demonstrates relatively stable electrolytes, however the patient does have elevated transaminitis, normal bilirubin. Lipase is also elevated at 328. Procalcitonin 0.7. Urinalysis negative for evidence of significant infection. With these laboratory abnormalities, this does increase my concern for intra-abdominal pathology although she had no significant abdominal tenderness on initial exam. Repeat exam now seems to demonstrate mild right upper quadrant tenderness. CT scan was ordered and shows evidence concerning for acute cholecystitis. No biliary ductal dilatation. Some small tissue nodules were noted in the right lower quadrant on CT as well. I did contact surgery and discussed the case with . He came and evaluated the patient and recommends admission. Patient's CODE STATUS is DNR/DNI, however I did discuss with her surgery and she is open to surgery. We will reach out and update the family as well. I did give Zosyn for antibacterial coverage at this time. Patient will be admitted to the floor. I have extensively reviewed the treatment plan with the patient. I have addressed all patient concerns at this time. I have also discussed the plan with the admitting physician and they agree with the current assessment and plan and have agreed to assume responsibility for the patient. All parties demonstrate verbal understanding and agreement with our assessment and plan at this time. The documentation in this chart was dictated using [employer] dictation software. Please excuse any dictation errors. FINDINGS: ABDOMEN and PELVIS: Lung Bases: No acute findings. The heart is enlarged. Liver: Normal density. No suspicious mass. Gallbladder and biliary tract: Gallbladder is markedly distended and shows wall thickening. There is stranding in the surrounding fat. Stones are visible. Common bile duct is not dilated. No visible common duct stone. Pancreas: Normal density. No abnormal calcifications or inflammatory process. No evidence of mass. Spleen: Normal. Kidneys: Normal size, contour and axis. No radiodense stones. No obstructive uropathy. No suspicious masses seen. Adrenal glands: No masses seen. Vasculature: Abdominal aorta non-dilated. Soft tissues: 4.5 x 2.2 by 3.4 centimeter ovoid area of soft tissue density in the right lower anterior abdominal wall fat additional smaller nodule measuring 14 millimeters. Venous varicosities in the abdominal wall. Bladder: No gross wall thickening. No calculi.No focal mass. Bowel: large quantity of stool consistent with constipation. No obstruction. No bowel wall thickening. Appendix not seen. Peritoneal cavity: No ascites. No focal collection. No mesenteric inflammatory response. Bones: Unremarkable for age. Reproductive organs: Unremarkable. Lymph nodes: No pathologically enlarged lymph nodes. IMPRESSION:: Findings consistent with acute cholecystitis. No biliary dilatation or visible common duct stone. Soft tissue nodules in the right lower quadrant anterior subcutaneous fat. Ultrasound could be considered for further evaluation. Findings called to Dr. Grijalva of the emergency department. Quality:SDOH Health Related Social Needs: No Data to Display [facility] All Active Problems (Updated 11/11/23 @ 10:25 by Norberto Grijalva DO) Acute cholecystitis (Acute) Transaminitis (Acute) Obesity (Chronic) Unstageable pressure ulcer of right heel (Acute) Poorly controlled type 2 diabetes mellitus with peripheral neuropathy (Acute) Diabetic foot infection (Acute) Low serum iron (Acute) Lumbar back pain with radiculopathy affecting right lower extremity (Acute) Ambulatory dysfunction (Acute) Weakness (Acute) Medical History Gram-negative bacteremia Pleural effusion, left Hyperglycemia due to type 2 diabetes mellitus Urinary tract infection Palliative care patient Physician orders for life-sustaining treatment (POLST) form indicates patient wish for [id number] status ACP (advance care planning) Stroke Diabetes CHF (congestive heart failure) Surgical History History of ERCP S/P tonsillectomy Social History Smoking/Tobacco Use Status: Never Smoking risk assessment performed?: Yes Alcohol Intake: never Drug use: Never Substance use type: does not use Housing: apartment What is your relationship status?: Panel score (0-1 are the most socially isolated patients): 0
[2023-11-11 07:52] LABS: Diff Comment Diff Reviewed; RBC Morphology Normal
[2023-11-11 08:14] LABS: Procalcitonin 0.7 ng/mL
[2023-11-11 08:21] LABS: ALT 315 U/L (14-59); AST 130 U/L (15-37); Albumin 2.4 g/dL (3.4-5.0); Alkaline Phosphatase 637 U/L (46-116); Anion Gap 4.9 mmol/L (3-11); BUN 22 mg/dL (7-18); Bilirubin, Total 0.5 mg/dL (0.2-1.0); CO2 30.1 mmol/L (21.0-32.0); CREATININE 0.9 mg/dL (0.55-1.02); Calcium 9.7 mg/dL (8.5-10.1); Chloride 96 mmol/L (98-107); Estimated GFR 67.08 (mL/min/1.73m2); Glucose 183 mg/dL (74-106); Lipase 328 U/L (16-77); Potassium 3.8 mmol/L (3.5-5.1); Sodium 131 mmol/L (136-145); TSH (W/Ref FT4) 3.07 uIU/mL (0.36-3.74); Total Protein 8.3 g/dL (6.4-8.2)
[2023-11-11 08:29] LABS: Bilirubin Negative (Negative); Blood Trace-lysed (Negative); Clarity Sl Cloudy (Clear); Glucose Negative (Negative); Ketones Negative (Negative); Leukocyte Esterase Negative (Negative); Nitrite Negative (Negative); Specific Gravity 1.015 (1.005-1.025); Urobilinogen 0.2 mg/dL (Up to 0.2); pH 6.5 (5-8)
--- NOTE | 2023-11-11 08:31 | NUR.NOTE ---
Nursing Note: right heel wound dressed by LTC facility, wound shows no s/s infection at this time
[2023-11-11 08:45] LABS: Bacteria Moderate HPF (Negative); C & S Indicated? C&S Done As Ordered; Casts Negative LPF (Negative); Crystals Negative HPF (Negative); Epithelial Cells Few HPF (Negative); Mucus Negative (Negative); RBC 0-2 HPF (0-2)
[2023-11-11] MEDS: Normal Saline - Diluent 50 ML VIAL IJ (08:58)
[2023-11-11] MEDS: Omnipaque 350 MG/ML 500 ML BTL-Imaging package 100 ML IJ (08:59)
--- NOTE | 2023-11-11 09:00 | DI.CT_ITS ---
Exam(s) CT ABDOMEN PELVIS W EXAM: CT ABDOMEN PELVIS W CLINICAL HISTORY: nausea, epigastric pain, transaminitis and pancrea. TECHNIQUE: Imaging Protocol: Axial computed tomography images with coronal and sagittal reformatted images were created and reviewed CONTRAST MATERIAL: Intravenous: Omnipaque 350 Contrast volume:100 ml Oral: yes / no COMPARISON: CT CT LUMBAR SPINE SI JOINTS WO from 09/04/[address] CHEST PE CTA from 10/24/2023 FINDINGS: ABDOMEN and PELVIS: Lung Bases: No acute findings. The heart is enlarged. Liver: Normal density. No suspicious mass. Gallbladder and biliary tract: Gallbladder is markedly distended and shows wall thickening. There is stranding in the surrounding fat. Stones are visible. Common bile duct is not dilated. No visible common duct stone. Pancreas: Normal density. No abnormal calcifications or inflammatory process. No evidence of mass. Spleen: Normal. Kidneys: Normal size, contour and axis. No radiodense stones. No obstructive uropathy. No suspicious masses seen. Adrenal glands: No masses seen. Vasculature: Abdominal aorta non-dilated. Soft tissues: 4.5 x 2.2 by 3.4 centimeter ovoid area of soft tissue density in the right lower anteri or abdominal wall fat additional smaller nodule measuring 14 millimeters. Venous varicosities in the abdominal wall. Bladder: No gross wall thickening. No calculi.No focal mass. Bowel: large quantity of stool consistent with constipation. No obstruction. No bowel wall thicke aubrey. Appendix not seen. Peritoneal cavity: No ascites. No focal collection. No mesenteric inflammatory response. Bones: Unremarkable for age. Reproductive organs: Unremarkable. Lymph nodes: No pathologically enlarged lymph nodes. IMPRESSION:: Findings consistent with acute cholecystitis. No biliary dilatation or visible common duct stone. Soft tissue nodules in the right lower quadrant anterior subcutaneous fat. Ultrasound could be consi dered for further evaluation. Findings called to Dr. Grijalva of the emergency department. RADIATION DOSE DELIVERED: 1,501.33mGy.cm Total DLP DATA REPOSITORY: All CT scans at this facility are submitted to the National Radiology Data Registry (NRDR) Dose Index Registry (DIR) with the [employer] (A[employer]). RADIATION OPTIMIZATION: All CT scans at this facility use at least one of these dose optimization te chniques: automated exposure control; mA and/or kV adjustment per patient size (includes targeted exa ms where dose is matched to clinical indication); or iterative reconstruction.
[2023-11-11] MEDS: PIPERACILLIN/TAZO 4.5 GM in Normal Saline 100 ML IVPB (09:53)
--- NOTE | 2023-11-11 10:00 | DI.NM_ITS ---
Exam(s) NM HEPATOBILIARY SCAN GRP EXAM: NM HEPATOBILIARY SCAN GRP CLINICAL HISTORY: Rule out acute cholecystitis. TECHNIQUE: Injected dose: 4.7 mCi Tc-99 mebrofenin Initial dynamic images: 60 minutes images at 90 and 120 minutes. COMPARISON: CT CT ABDOMEN PELVIS W from 11/11/2023 FINDINGS: Normal hepatic transit time. Prompt excretion into the small bowel. Rounded photopenic defect corresponding to markedly enlarged gallbladder. No activity identified in the gallbladder. IMPRESSION: Findings consistent with acute cholecystitis on CT. SNM guidelines: Gallbladder visualization should be present by 3 hours. Delayed [id number] beck sit beyond 60 min raises the suspicion for partial common bile duct (CBD) obstruction. Gallbladder ejection fraction <35% has a good correlation with acalculous disease (i.e., chronic acal culous cholecystitis, cystic duct syndrome, sphincter of Oddi disease).
--- NOTE | 2023-11-11 10:02 | HPE_ITS ---
Date of service: 11/11/23 Time of Service: 10:02 Assessment and Plan Assessment and plan (1) Acute cholecystitis: Status: Acute Assessment and plan: HIDA scan confirms the diagnosis of acute cholecystitis. However, with the elevated lipase, little hesitant to proceed with cholecystectomy at this point. Especially given the timing of the symptoms as we seem to be well into the cholecystitis as opposed to the acute onset of it. I think that surgery at this point would have significant risk of complications, and given her comorbidities I would like to try to minimize that risk is much as possible. In light of her hemodynamics and exam, I think is reasonable to start a course of antibiotics, and see how she responds. Obviously, if she has any deterioration in vital signs, or significant worsening of her biochemistry, then I might be forced to move forward with more urgent cholecystectomy. We talked about the possibility of cholecystostomy tube, however, aside from the pancreatitis, I do not see any other real modifiable elements that could reduce her surgical morbidity overall. Therefore, we will stick with a short trial of nonoperative management and see how she does over the next 24 hours. I did explain all of this to her in simple language, and I think she has a reasonable grasp of it. I also left a voicemail with my cell phone number for her granddaughter if she has any questions. History of Present Illness History of Present Illness Chief Complaint: Not feeling herself Narrative: Nilam is 73 years old. She is referred to the emergency department from the [facility], where she resides. By way of report, she has not been acting herself this morning. Patient says she feels a little out of the ordinary, and reports about 1 to 2 days of abdominal pain. Interestingly, the pain is little bit better today compared to yesterday. She also has some associated loss of appetite and mild nausea with it. Has not been vomiting. She describes the pain as sharp, and slightly towards the right side. Does not radiate anywhere. There is no exacerbating or relieving factors. Past medical history is most significant for diabetes as well as some congestive heart failure. She has had multiple urinary tract infections. Review of Systems Constitutional Constitutional: Reports fatigue, Denies fever(s), Reports lethargy and Reports poor appetite Eyes Eyes: Reports system reviewed and no additional complaints, except as documented ENT Ears, Nose, Mouth, and Throat: Reports system reviewed and no additional complaints, except as documented Cardiovascular Cardiovascular: Denies chest pain and Denies dyspnea Respiratory Respiratory: Denies chest congestion, Denies cough and Denies dyspnea Gastrointestinal Gastrointestinal: Reports abdominal pain, Denies bloating, Denies change in bowel habits, Reports nausea and Denies vomiting Genitourinary Genitourinary: Denies dysuria Neurologic Neurologic: Reports behavioral changes and Reports confusion Psychiatric Psychiatric: Reports behavioral changes and Reports confusion Endocrine Endocrine: Reports fatigue Hematologic/Lymphatic Hematologic/Lymphatic: Denies easy bleeding and Denies easy bruising PFSH All Active Problems Anemia in chronic illness (Acute) Hyponatremia (Acute) Acute cholecystitis (Acute) Transaminitis (Acute) Obesity (Chronic) Unstageable pressure ulcer of right heel (Acute) Poorly controlled type 2 diabetes mellitus with peripheral neuropathy (Acute) Diabetic foot infection (Acute) Low serum iron (Acute) Lumbar back pain with radiculopathy affecting right lower extremity (Acute) Ambulatory dysfunction (Acute) Weakness (Acute) Medical History Hypothyroid Gram-negative bacteremia Pleural effusion, left Hyperglycemia due to type 2 diabetes mellitus Urinary tract infection Palliative care patient Physician orders for life-sustaining treatment (POLST) form indicates patient wish for [id number] status ACP (advance care planning) Stroke Diabetes CHF (congestive heart failure) Surgical History History of ERCP S/P tonsillectomy Social History Smoking/Tobacco Use Status: Never Smoking risk assessment performed?: Yes Alcohol Intake: never Drug use: Never Substance use type: does not use Housing: apartment What is your relationship status?: Panel score (0-1 are the most socially isolated patients): 0 Meds Allergies and Home Medications Allergies Allergy/AdvReac Type Severity Reaction Status Date / Time No Known Allergies Allergy Unverified 11/11/23 08:18 Home Medications Medication Instructions Recorded Confirmed Type atorvastatin 40 mg tablet 40 mg PO DAILY 09/04/23 11/11/23 History benzonatate 200 mg capsule 200 mg PO Q8H PRN 09/04/23 11/11/23 History trazodone 50 mg tablet 50 mg PO QHS PRN 09/04/23 11/11/23 History acetaminophen 500 mg tablet 1,000 mg (2 x 500 mg) PO TID #60 09/06/23 11/11/23 Rx tabs blood sugar diagnostic (FreeStyle #100 ea 09/06/23 11/08/23 Rx Lite Strips) blood-glucose meter (FreeStyle #1 ea 09/06/23 11/08/23 Rx Lite Meter kit) docusate sodium 100 mg capsule 100 mg PO DAILY #30 caps 09/06/23 11/11/23 Rx (Colace) ferrous sulfate 325 mg (65 mg 325 mg PO DAILY #30 tabs 09/06/23 11/11/23 Rx iron) tablet lancets 28 gauge (FreeStyle #100 ea 09/06/23 11/08/23 Rx Lancets) metformin 500 mg tablet 500 mg PO BIDWMEAL #60 tabs 09/06/23 11/11/23 Rx pantoprazole 40 mg tablet,delayed 40 mg PO DAILY@0730 #10 tabs 09/06/23 11/11/23 Rx release levothyroxine 150 mcg tablet 150 mcg PO DAILY 10/19/23 11/11/23 History L. acidophilus,casei,rhamnosus 50 1 cap PO DAILY #10 caps 10/28/23 11/11/23 Rx billion cell capsule,delayed release (Bio-K plus) furosemide 40 mg tablet 40 mg PO BID@0830,1600 #60 tabs 10/28/23 11/11/23 Rx insulin glargine 100 unit/mL (3 15 unit (0.15 mL) subcut QAM #15 mL 10/28/23 11/11/23 Rx mL) subcutaneous pen (Lantus Solostar U-100 Insulin) insulin glargine 100 unit/mL (3 25 unit (0.25 mL) subcut HS #15 mL 10/28/23 11/11/23 Rx mL) subcutaneous pen (Lantus Solostar U-100 Insulin) linezolid 600 mg tablet 600 mg PO BID #10 tabs 10/28/23 11/11/23 Rx magnesium oxide 400 mg (241.3 mg 400 mg PO DAILY #30 tabs 10/28/23 11/11/23 Rx magnesium) tablet potassium chloride 20 mEq 20 meq PO DAILY #30 tabs 10/28/23 11/11/23 Rx tablet,extended release(part/cryst) (Klor-Con M) honey 80 % topical gel (MediHoney 1 applic topical DAILY #44 mL 11/08/23 11/11/23 Rx (honey)) Exam Const General: cooperative and comfortable Nutritional Appearance: overweight Orientation: alert and awake [facility] Head: normal to inspection Eyes General: appearance normal, both eyes and all related structures Neck Neck: normal visual inspection, full ROM and no lymphadenopathy GI Palpation: soft, no guarding and tender in the epigastrum and in the RUQ Percussion: dullness to percussion Auscultation: normal bowel sounds Skin General skin exam: turgor normal Results Labs 11/11/23 07:18 11/11/23 07:18 Labs: Laboratory Results - last 24 hr 11/11/23 11/11/23 11/11/23 07:07 07:18 08:15 WBC 14.62 H RBC 3.94 Hgb 10.0 L Hct 31.9 L MCV 81 MCH 25.4 L MCHC 31.3 L RDW 16.2 H Plt Count 383 MPV 8.7 Immature Gran % 0.5 Neutrophils % 74.9 Lymphocytes % 11.1 Monocytes % 11.3 Eosinophils % 2.1 Basophils % 0.1 Nucleated RBC % 0.0 Absolute Neutrophils 10.95 H Absolute Lymphocytes 1.62 Absolute Monocytes 1.65 H Absolute Eosinophils 0.31 Absolute Basophils 0.01 RBC Morphology Normal VBG pH 7.47 H VBG pCO2 44 VBG pO2 44 VBG HCO3 32 H VBG Total CO2 30 H VBG O2 Saturation 80 VBG Base Excess 8 H VBG Lactate 1.0 Sodium 131 L Potassium 3.8 Chloride 96 L Carbon Dioxide 30.1 Anion Gap 4.9 BUN 22 H Creatinine 0.9 Est GFR (CKD-EPI 2020) 67.08 Glucose 183 H Calcium 9.7 Total Bilirubin 0.5 AST 130 H ALT 315 H Alkaline Phosphatase 637 H Total Protein 8.3 H Albumin 2.4 L Lipase Cancelled 328 H Procalcitonin 0.7 TSH Cancelled 3.07 Urine Color Yellow Urine Clarity Sl Cloudy Urine pH 6.5 Ur Specific [place] 1.015 Urine Protein Negative Urine Ketones Negative Urine Blood Trace-lysed H Urine Nitrite Negative Urine Bilirubin Negative Urine Urobilinogen 0.2 Ur Leukocyte Esterase Negative Urine RBC 0-2 Urine WBC 3-5 Ur Epithelial Cells Few Urine Crystals Negative Urine Bacteria Moderate Urine Casts Negative Urine Mucus Negative Ur Culture Indicated? C&S Done As Ordered Urine Glucose Negative Last Vital Signs Temp 98.6 F 11/11/23 07:01 Pulse 93 H 11/11/23 07:01 Resp 20 11/11/23 07:01 BP 140/67 11/11/23 07:01 Pulse Ox 95 11/11/23 07:47 Time Spent Time spent with Patient: >75 minutes Time was spent: preparing to see the patient(eg.review tests), obtaining and/or reviewing separately otained hiistory, ordering medications,tests, procedures, indepentently interpreting results and counseling the patient
--- NOTE | 2023-11-11 10:07 | DI.VRAD_ITS ---
PROCEDURE INFORMATION: Exam: XR Chest Exam date and time: 11/11/2023 7:32 AM Age: 73 years old Clinical indication: Patient HX: Cough, eval. For pneumonia. TECHNIQUE: Imaging protocol: Radiologic exam of the chest. Views: 1 view. COMPARISON: CT CHEST PE CTA 10/24/2023 3:59 AM FINDINGS: Lungs: Diffuse increase in interstitial lung markings. Pleural spaces: Unremarkable. No pleural effusion. No pneumothorax. Heart/Mediastinum: Asymmetric prominence of left retrocardiac infiltration. Vasculature: Aortic knob atherosclerotic disease. Bones/joints: Unremarkable. IMPRESSION: Asymmetric prominence of left retrocardiac infiltration with background of diffuse increase in interstitial lung markings. Although nonspecific, cannot rule out infection. Alternatively may represent volume overload. No clear consolidation. Dictated and Authenticated by: Mahendra Warner MD. Ordering:ED Thornton MD
[2023-11-11] MEDS: Lactated Ringers 1,000 ML 75 ML IV (12:08)
[2023-11-11] MEDS: Normal Saline Flush 10 ML SYR IVP (12:09)
--- NOTE | 2023-11-11 15:01 | W.MEDCONSULT ---
Date of service: 11/11/23 Time of Service: 15:02 Assessment and Plan Assessment and plan (1) Acute cholecystitis: Status: Acute (2) Transaminitis: Status: Acute (3) Obesity: Status: Chronic (4) Unstageable pressure ulcer of right heel: Status: Acute (5) Diabetic foot infection: Status: Acute (6) Diabetes: (7) CHF (congestive heart failure): [facility] All Active Problems (Updated 11/11/23 @ 10:25 by Norberto Grijalva DO) Acute cholecystitis (Acute) Transaminitis (Acute) Obesity (Chronic) Unstageable pressure ulcer of right heel (Acute) Poorly controlled type 2 diabetes mellitus with peripheral neuropathy (Acute) Diabetic foot infection (Acute) Low serum iron (Acute) Lumbar back pain with radiculopathy affecting right lower extremity (Acute) Ambulatory dysfunction (Acute) Weakness (Acute) Medical History Gram-negative bacteremia Pleural effusion, left Hyperglycemia due to type 2 diabetes mellitus Urinary tract infection Palliative care patient Physician orders for life-sustaining treatment (POLST) form indicates patient wish for [id number]-[id number] status ACP (advance care planning) Stroke Diabetes CHF (congestive heart failure) Surgical History History of ERCP S/P tonsillectomy Social History Smoking/Tobacco Use Status: Never Smoking risk assessment performed?: Yes Alcohol Intake: never Drug use: Never Substance use type: does not use Housing: apartment What is your relationship status?: Panel score (0-1 are the most socially isolated patients): 0 Results Last Vital Signs Temp 36.8 C 11/11/23 11:42 Pulse 85 11/11/23 11:42 Resp 22 11/11/23 11:42 BP 115/68 11/11/23 11:42 Pulse Ox 96 11/11/23 11:42 Labs 11/11/23 07:18 11/11/23 07:18 Labs: Laboratory Results - last 24 hr 11/11/23 11/11/23 11/11/23 07:07 07:18 08:15 WBC 14.62 H RBC 3.94 Hgb 10.0 L Hct 31.9 L MCV 81 MCH 25.4 L MCHC 31.3 L RDW 16.2 H Plt Count 383 MPV 8.7 Immature Gran % 0.5 Neutrophils % 74.9 Lymphocytes % 11.1 Monocytes % 11.3 Eosinophils % 2.1 Basophils % 0.1 Nucleated RBC % 0.0 Absolute Neutrophils 10.95 H Absolute Lymphocytes 1.62 Absolute Monocytes 1.65 H Absolute Eosinophils 0.31 Absolute Basophils 0.01 RBC Morphology Normal VBG pH 7.47 H VBG pCO2 44 VBG pO2 44 VBG HCO3 32 H VBG Total CO2 30 H VBG O2 Saturation 80 VBG Base Excess 8 H VBG Lactate 1.0 Sodium 131 L Potassium 3.8 Chloride 96 L Carbon Dioxide 30.1 Anion Gap 4.9 BUN 22 H Creatinine 0.9 Est GFR (CKD-EPI 2020) 67.08 Glucose 183 H Calcium 9.7 Total Bilirubin 0.5 AST 130 H ALT 315 H Alkaline Phosphatase 637 H Total Protein 8.3 H Albumin 2.4 L Lipase Cancelled 328 H Procalcitonin 0.7 TSH Cancelled 3.07 Urine Color Yellow Urine Clarity Sl Cloudy Urine pH 6.5 Ur Specific [place] 1.015 Urine Protein Negative Urine Ketones Negative Urine Blood Trace-lysed H Urine Nitrite Negative Urine Bilirubin Negative Urine Urobilinogen 0.2 Ur Leukocyte Esterase Negative Urine RBC 0-2 Urine WBC 3-5 Ur Epithelial Cells Few Urine Crystals Negative Urine Bacteria Moderate Urine Casts Negative Urine Mucus Negative Ur Culture Indicated? C&S Done As Ordered Urine Glucose Negative
--- NOTE | 2023-11-11 16:09 | W.MEDCONSULT ---
Date of service: 11/11/23 Time of Service: 16:09 Assessment and Plan Assessment and plan (1) Acute cholecystitis: Status: Acute Assessment and plan: With mild elevated lipase but minimal symptoms c/w pancreatitis. Management per , on pip/tazo with fluids and pain control. (2) Unstageable pressure ulcer of right heel: Status: Acute Assessment and plan: This does not look actively infected. Keep covered and offloaded. Followed by [facility] as outpatient. (3) Poorly controlled type 2 diabetes mellitus with peripheral neuropathy: Status: Acute Assessment and plan: Written foroutpatient glargine. Hold metformin with contrast CT. I wrote for insulin sliding scale. We may need to titrate up insulins with chronic poor control. (4) CHF (congestive heart failure): Assessment and plan: She is not currently fluid overloaded, slight rale right base a/w cholecystitis. Monitor with IV fluids. (5) Stroke: Assessment and plan: per previous documentation she has a history of CVA. We don't have imaging or direct report on record. She is on high intensity statin but not antiplatelet therapy. 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 May be related to her illness though she appears euvolemic. Just monitor for now. (7) Hypothyroid: Assessment and plan: TSH normal, no change in levothyroxine (8) Anemia in chronic illness: Status: Acute Assessment and plan: recent transferrin saturation normal, low TIBC c/w chronic disease. Recent B12/folate normal. stable from last admission History of Present Illness History of Present Illness Chief Complaint: confusion, weakness Narrative: 73 [facility] F resident of [facility] with history of type 2 DM, stage 2 obesity, HFpEF, h/o CVA, and hospitalization 10/15 to 10/28/23 for sepsis associated with a UTI and diabetic foot wound who was sent form the group home today with some general weakness and confusion. Her urine and blood grew ESBL E. Coli, and she was treated for 10 days with meropenem with negative repeat blood and urine cultures. She was also on linazolid to cover MRSA in her foot wound. This was stopped after a week, but her WBC increased off the linazolid, so this was restarted and she was sent home with 5 additional days of oral linazolid therapy and medihoney. She was seen by Dr. Castellano 11/07 and had some additional debriding. She states she just didn't feel well this morning. No pain, but felt nauseous, no appetite. Her last BM was 2 days ago, small, no diarrhea. No vomiting. No fever. She feels a little better now after some fluids. Her hgb A1c on 10/30 was >13 reflecting very poor diabetic control. She states her sugars have been coming down, but 200 is low for her. PFSH All Active Problems (Updated 11/11/23 @ 17:12 by Harvey Pillai) Anemia in chronic illness (Acute) Hyponatremia (Acute) Acute cholecystitis (Acute) Transaminitis (Acute) Obesity (Chronic) Unstageable pressure ulcer of right heel (Acute) Poorly controlled type 2 diabetes mellitus with peripheral neuropathy (Acute) Diabetic foot infection (Acute) Low serum iron (Acute) Lumbar back pain with radiculopathy affecting right lower extremity (Acute) Ambulatory dysfunction (Acute) Weakness (Acute) Medical History (Updated 11/11/23 @ 17:12 by Harvey Pillai) Hypothyroid Gram-negative bacteremia Pleural effusion, left Hyperglycemia due to type 2 diabetes mellitus Urinary tract infection Palliative care patient Physician orders for life-sustaining treatment (POLST) form indicates patient wish for nj-[id number] status ACP (advance care planning) Stroke Diabetes CHF (congestive heart failure) Surgical History History of ERCP S/P tonsillectomy Social History Smoking/Tobacco Use Status: Never Smoking risk assessment performed?: Yes Alcohol Intake: never Drug use: Never Substance use type: does not use Housing: apartment What is your relationship status?: Panel score (0-1 are the most socially isolated patients): 0 Exam Narrative Exam Narrative: GEN: Alert and oriented, sitting up in chair, pleasant and cooperative, gives linear history. No acute distress at rest. HEENT: Head atraumatic. Conjunctiva clear, no icterus. PEERL, EOMI. no rhinorrhea. MMM, OP benign. Neck is supple with no masses or lymphadenopathy, trachea midline LUNGS: CTAB with normal effort x slight rale just at right base. CV: RRR with no murmurs, gallops, or rubs. ABD: hypoactive BS. Soft, not distended. RUQ tenderness only with deep palpation. No palpable masses. EXT: no cyanosis, clubbing. 1+ nadya ankle edema MSK: No joint redness or swelling NEURO: CN 2-12 grossly intact. Normal movement of 4 extremities. Normal speech and coordination SKIN: No rashes. Wound right heel not red or draining. PSYCH: normal mood and affect Results Last Vital Signs Temp 36.8 C 11/11/23 15:40 Pulse 86 11/11/23 15:40 Resp 17 11/11/23 15:40 BP 132/79 11/11/23 15:40 Pulse Ox 94 11/11/23 15:40 Labs 11/11/23 07:18 11/11/23 07:18 Labs: Laboratory Results - last 24 hr 11/11/23 11/11/23 11/11/23 07:07 07:18 08:15 WBC 14.62 H RBC 3.94 Hgb 10.0 L Hct 31.9 L MCV 81 MCH 25.4 L MCHC 31.3 L RDW 16.2 H Plt Count 383 MPV 8.7 Immature Gran % 0.5 Neutrophils % 74.9 Lymphocytes % 11.1 Monocytes % 11.3 Eosinophils % 2.1 Basophils % 0.1 Nucleated RBC % 0.0 Absolute Neutrophils 10.95 H Absolute Lymphocytes 1.62 Absolute Monocytes 1.65 H Absolute Eosinophils 0.31 Absolute Basophils 0.01 RBC Morphology Normal VBG pH 7.47 H VBG pCO2 44 VBG pO2 44 VBG HCO3 32 H VBG Total CO2 30 H VBG O2 Saturation 80 VBG Base Excess 8 H VBG Lactate 1.0 Sodium 131 L Potassium 3.8 Chloride 96 L Carbon Dioxide 30.1 Anion Gap 4.9 BUN 22 H Creatinine 0.9 Est GFR (CKD-EPI 2020) 67.08 Glucose 183 H Calcium 9.7 Total Bilirubin 0.5 AST 130 H ALT 315 H Alkaline Phosphatase 637 H Total Protein 8.3 H Albumin 2.4 L Lipase Cancelled 328 H Procalcitonin 0.7 TSH Cancelled 3.07 Urine Color Yellow Urine Clarity Sl Cloudy Urine pH 6.5 Ur Specific [place] 1.015 Urine Protein Negative Urine Ketones Negative Urine Blood Trace-lysed H Urine Nitrite Negative Urine Bilirubin Negative Urine Urobilinogen 0.2 Ur Leukocyte Esterase Negative Urine RBC 0-2 Urine WBC 3-5 Ur Epithelial Cells Few Urine Crystals Negative Urine Bacteria Moderate Urine Casts Negative Urine Mucus Negative Ur Culture Indicated? C&S Done As Ordered Urine Glucose Negative Imaging Chest x-ray: report reviewed (Asymmetric prominence of left retrocardiac infiltration with background of diffuse increase in interstitial lung markings. Although nonspecific, cannot rule out infection. Alternatively may represent volume overload. No clear consolidation. ) and image reviewed Abdomen CT scan report/results: report reviewed (Findings consistent with acute cholecystitis. No biliary dilatation or visible common duct stone. Soft tissue nodules in the right lower quadrant anterior subcutaneous fat. Ultrasound could be considered for further evaluation. ) EKG: report reviewed and image reviewed (NSR, left axis/LBBB, no change in pattern from 10/24/23 other that rate now normal) Additional studies: HIDA: Normal hepatic transit time. Prompt excretion into the small bowel. Rounded photopenic defect corresponding to markedly enlarged gallbladder. No activity identified in the gallbladder. IMPRESSION: Findings consistent with acute cholecystitis on CT
[2023-11-11] MEDS: Heparin 5,000 UNITS/ML VIAL 5000 UNITS SC ×2 (16:17→23:58)
[2023-11-11] MEDS: Furosemide 40 MG TAB PO (16:17)
[2023-11-11] MEDS: PIPERACILLIN/TAZO 3.375 GM in Normal Saline 50 ML IVPB ×2 (16:18→21:38)
[2023-11-11 16:42] LABS: Lab Add On Test DONE
[2023-11-11 17:04] LABS: Magnesium 1.6 mg/dL (1.8-2.4)
[2023-11-11] MEDS: Insulin Aspart 300 UNITS/3 ML PEN SC (17:06)
[2023-11-11] MEDS: traZODone 50 MG TAB PO (20:00)
[2023-11-11] MEDS: Insulin Glargine 300 UNITS/3 ML PEN 25 UNITS SC (20:00)
[2023-11-11] MEDS: Benzonatate 200 MG CAP PO (20:02)
[2023-11-12] MEDS: Lactated Ringers 1,000 ML 75 ML IV (02:58)
[2023-11-12 04:45] VITALS: BP 101/61; PULSE 73; RESP 18; TEMP 36; O2SAT 91
[2023-11-12] MEDS: PIPERACILLIN/TAZO 3.375 GM in Normal Saline 50 ML IVPB ×4 (05:21→22:17)
[2023-11-12] MEDS: Normal Saline Flush 10 ML SYR IVP ×6 (05:22→22:17)
[2023-11-12 06:34] LABS: Abs Immature Grans 0.07 10^3/uL (0.0-0.06); Absolute Basophil Count 0.02 10^3/uL (0.0-0.2); Absolute Eosinophil Count 0.49 10^3/uL (0.0-0.7); Absolute Lymphocyte Count 1.57 10^3/uL (1.2-3.4); Absolute Monocyte Count 0.85 10^3/uL (0.1-0.8); Absolute Neutrophil Count 5.71 10^3/uL (1.2-6.7); Basophils % 0.2 %; Eosinophils % 5.6 %; HCT 30.7 % (36.0-46.0); HGB 9.5 g/dL (11.2-15.7); Immature Grans % 0.8 %; MCH 25.3 pg (27.0-33.0); MCHC 30.9 % (32.0-36.0); MCV 82 fL (80-95); MPV 8.6 fL (8.0-11.0); Monocytes % 9.8 %; Neutrophils % 65.6 %; Platelet Count 358 10^3/uL (130-400); RBC 3.75 10^6/uL (3.93-5.22); RDW 16.6 % (11.7-14.6); RDW-SD 49.6 fL; WBC 8.71 10^3/uL (4.4-10.8)
[2023-11-12 06:55] LABS: Calculated LDL 59 mg/dL (<100); Cholesterol 131 mg/dL (<200); HDL Cholesterol 37 mg/dL (40-60); Triglyceride 176 mg/dL (<150)
[2023-11-12 06:58] LABS: ALT 206 U/L (14-59); AST 53 U/L (15-37); Albumin 2.3 g/dL (3.4-5.0); Alkaline Phosphatase 480 U/L (46-116); Bilirubin, Direct 0.2 mg/dL (0.0-0.2); Bilirubin, Total 0.4 mg/dL (0.2-1.0); Total Protein 7.8 g/dL (6.4-8.2)
[2023-11-12 07:00] LABS: ALT 213 U/L (14-59); AST 53 U/L (15-37); Albumin 2.3 g/dL (3.4-5.0); Alkaline Phosphatase 487 U/L (46-116); Anion Gap 8.4 mmol/L (3-11); BUN 17 mg/dL (7-18); Bilirubin, Total 0.4 mg/dL (0.2-1.0); CO2 31.6 mmol/L (21.0-32.0); CREATININE 0.9 mg/dL (0.55-1.02); Chloride 95 mmol/L (98-107); Estimated GFR 67.08 (mL/min/1.73m2); Glucose 168 mg/dL (74-106); Lipase 152 U/L (16-77); Potassium 3.5 mmol/L (3.5-5.1); Sodium 135 mmol/L (136-145); Total Protein 7.9 g/dL (6.4-8.2)
[2023-11-12 07:33] VITALS: BP 112/64; PULSE 70; RESP 20; TEMP 36.6; O2SAT 92
[2023-11-12] MEDS: Levothyroxine 150 MCG TAB PO (07:41)
[2023-11-12] MEDS: Insulin Glargine 300 UNITS/3 ML PEN 15 UNITS SC (08:40)
[2023-11-12] MEDS: Insulin Aspart 300 UNITS/3 ML PEN SC ×3 (08:40→17:11)
[2023-11-12] MEDS: Lactobacillus Acidophilus CAP 1 CAP PO (09:11)
[2023-11-12] MEDS: Docusate Sodium 100 MG CAP PO (09:11)
[2023-11-12] MEDS: Ferrous Sulfate 325 MG TAB PO (09:11)
[2023-11-12] MEDS: Magnesium Oxide 400 MG TAB PO (09:11)
[2023-11-12] MEDS: Pantoprazole 40 MG TABCR PO (09:11)
[2023-11-12] MEDS: Atorvastatin 40 MG TAB PO (09:11)
[2023-11-12] MEDS: Potassium Chloride 20 MEQ TABCR PO (09:11)
[2023-11-12] MEDS: Furosemide 40 MG TAB PO ×2 (09:11→15:24)
--- NOTE | 2023-11-12 09:56 | PGE_ITS ---
Date of Service Date of service: 11/12/23 Time of Service: 09:56 Assessment and Plan Assessment and plan (1) Pancreatitis: Status: Chronic Assessment and plan: Fortunately, she is doing pretty well with nonoperative management thus far. LFTs are all improved, and her white blood cell count is normalized. Most importantly, the lipase is down to 152 from 328 yesterday. She does have a gram-negative rebecca growing in her urine. Hopefully the Zosyn will cover this. Will continue with nonoperative therapy for now. I will repeat all of the LFTs again tomorrow and continue the antibiotics until I have a little more information on the urinary tract infection. Subjective Subjective Interval history since last seen: She really did well overnight, and is feeling better today. She did have a little bit of nausea earlier in the morning, that resolved with a dose of Zofra n. Currently she says she is hungry. She says her pain is better. Exam GI Other: Her abdomen is soft, and she does still have a little bit of tenderness little more in the mid epigastrium today compared to the right side. I would say overall the pain is improved. She does not guard at all, nor does she have any rebound. Objective Last Vital Signs Temp 97.9 F 11/12/23 07:33 Pulse 70 11/12/23 07:33 Resp 20 11/12/23 07:33 BP 112/64 11/12/23 07:33 Pulse Ox 92 11/12/23 07:33 Laboratory Results - last 24 hr 11/11/23 11/11/23 11/12/23 07:18 16:36 06:10 WBC 8.71 RBC 3.75 L Hgb 9.5 L Hct 30.7 L MCV 82 MCH 25.3 L MCHC 30.9 L RDW 16.6 H Plt Count 358 MPV 8.6 Immature Gran % 0.8 Neutrophils % 65.6 Lymphocytes % 18.0 Monocytes % 9.8 Eosinophils % 5.6 Basophils % 0.2 Nucleated RBC % 0.0 Absolute Neutrophils 5.71 Absolute Lymphocytes 1.57 Absolute Monocytes 0.85 H Absolute Eosinophils 0.49 Absolute Basophils 0.02 Sodium 135 L Potassium 3.5 Chloride 95 L Carbon Dioxide 31.6 Anion Gap 8.4 BUN 17 Creatinine 0.9 Est GFR (CKD-EPI 2020) 67.08 Glucose 168 H Calcium 9.0 Magnesium 1.6 L Total Bilirubin 0.4 Conjugated Bilirubin AST ALT Alkaline Phosphatase Total Protein Albumin Triglycerides Total Cholesterol LDL Cholesterol, Calc HDL Cholesterol Lipase Add-On Test Request DONE 11/12/23 11/12/23 11/12/23 06:10 06:10 06:10 WBC RBC Hgb Hct MCV MCH MCHC RDW Plt Count MPV Immature Gran % Neutrophils % Lymphocytes % Monocytes % Eosinophils % Basophils % Nucleated RBC % Absolute Neutrophils Absolute Lymphocytes Absolute Monocytes Absolute Eosinophils Absolute Basophils Sodium Potassium Chloride Carbon Dioxide Anion Gap BUN Creatinine Est GFR (CKD-EPI 2020) Glucose Calcium Magnesium Total Bilirubin 0.4 Conjugated Bilirubin 0.2 AST 53 H 53 H ALT 213 H 206 H Alkaline Phosphatase 487 H Total Protein Albumin Triglycerides Total Cholesterol LDL Cholesterol, Calc HDL Cholesterol Lipase Add-On Test Request 11/12/23 11/12/23 11/12/23 06:10 06:10 06:10 WBC RBC Hgb Hct MCV MCH MCHC RDW Plt Count MPV Immature Gran % Neutrophils % Lymphocytes % Monocytes % Eosinophils % Basophils % Nucleated RBC % Absolute Neutrophils Absolute Lymphocytes Absolute Monocytes Absolute Eosinophils Absolute Basophils Sodium Potassium Chloride Carbon Dioxide Anion Gap BUN Creatinine Est GFR (CKD-EPI 2020) Glucose Calcium Magnesium Total Bilirubin Conjugated Bilirubin AST ALT Alkaline Phosphatase 480 H Total Protein 7.9 7.8 Albumin 2.3 L 2.3 L Triglycerides 176 H Total Cholesterol 131 LDL Cholesterol, Calc 59 HDL Cholesterol 37 L Lipase 152 H Add-On Test Request Time Spent with Patient Time Spent with Patient: 25-34 minutes Time was spent: preparing to see the patient(eg.review tests), ordering medications,tests, procedures, indepentently interpreting results and counseling the patient
[2023-11-12] MEDS: Heparin 5,000 UNITS/ML VIAL 5000 UNITS SC (12:06)
--- NOTE | 2023-11-12 12:34 | PDOC.CMIN ---
Date of service: 11/12/23 Time of Service: 12:34 Care Management Initial Assmt Initial Assessment Reason for Hospitalization: Gallstone Pancreatitis Functional Status/Living Situation Patient Presentation: Nilam re-admits from the [facility] two weeks post discharge from [facility]. She is sitting up in her chair, watching TV; pleasant in interaction. Town of Residence: [place] Resides with: Other ([facility] ) Significant Other/Family: Local Employment Status: Retired Instrumental Activities of Daily Living (ADLs): Requires support (SNF) Physical Functioning/Mobility Assistive Device: FWW Advance Directives Advance Directives: Do you have an Advance Directive: N 09/04/23 11:35 AD On File at [facility]: N 09/04/23 11:35 Date Asked 11/11/23 11/11/23 06:58 AD Date Reviewed COLST On File at [facility] COLST Date Scanned Comment: COLST on file Code Status Resuscitation Status DNR/DNI Portal Pt does not currently have a portal and education provided: No Portal Education: Patient declined Insurance Coverage/Financial Issues Insurance: [id number] Mc[employer] Replacement ACO Member: No Care Team Visit Care Team Role Provider Type Unknown Unknown Primary Care Provider STAFF PHYSICIAN Norberto Grijalva DO Emergency Provider [facility] STAFF PHYSICIAN Alexandro Smith MD Admit Provider [facility] STAFF PHYSICIAN Attending Provider Discharge Anticipated Barriers to Discharge: Bed availability (Return to SNF; holiday weekend) Patient/Family Education Needs: Review discharge instructions, discuss Ask Me Three Plan: Nilam will return to the [facility] when ready per MD, she will transport via [facility] or with her granddaughter; dependent on mobility. PFSH All Active Problems (Updated 11/12/23 @ 09:57 by Alexandro Smith MD) Pancreatitis (Chronic) Anemia in chronic illness (Acute) Hyponatremia (Acute) Acute cholecystitis (Acute) Transaminitis (Acute) Obesity (Chronic) Unstageable pressure ulcer of right heel (Acute) Poorly controlled type 2 diabetes mellitus with peripheral neuropathy (Acute) Diabetic foot infection (Acute) Low serum iron (Acute) Lumbar back pain with radiculopathy affecting right lower extremity (Acute) Ambulatory dysfunction (Acute) Weakness (Acute) Medical History Hypothyroid Gram-negative bacteremia Pleural effusion, left Hyperglycemia due to type 2 diabetes mellitus Urinary tract infection Palliative care patient Physician orders for life-sustaining treatment (POLST) form indicates patient wish for [id number] status ACP (advance care planning) Stroke Diabetes CHF (congestive heart failure) Surgical History History of ERCP S/P tonsillectomy Social History Smoking/Tobacco Use Status: Never Smoking risk assessment performed?: Yes Alcohol Intake: never Drug use: Never Substance use type: does not use Housing: apartment What is your relationship status?: Panel score (0-1 are the most socially isolated patients): 0 Readmission Within the Past 30 Days Yes or No: Yes Date of First Admission Date of 1st Admission: 10/16/23 Date of this Admission Date of Admission: 11/11/23 This admission was: Through ED Assessment for Readmission Summary of readmission circumstances, based upon interviews: Re-admit from SNF for unrelated acute medical need. SDOH(Care Management) Screening Will the Patient Participate in the Screening?: Unable to obtain
--- NOTE | 2023-11-12 13:00 | W.PM.PROGNOT ---
Date of Service Date of service: 11/12/23 Time of Service: 13:00 Assessment and Plan Assessment and plan (1) Acute cholecystitis: Status: Acute Assessment and plan: With mild elevated lipase but minimal symptoms c/w pancreatitis. Management per , on pip/tazo with fluids and pain control. She is improving clinically and on labs. (2) Unstageable pressure ulcer of right heel: Status: Acute Assessment and plan: This does not look actively infected. Keep covered and offloaded. Followed by [facility] as [facility]. (3) Poorly controlled type 2 diabetes mellitus with peripheral neuropathy: Status: Acute Assessment and plan: With chronic poor control. Written for her outpatient glargine and sliding scale. Holding metformin with contrast CT. Will titrate up glargine insulin. (4) CHF (congestive heart failure): Assessment and plan: She is not currently fluid overloaded, rales at bases clear with deep breath. Continue IS. Now off IV fluids. (5) Stroke: Assessment and plan: per previous documentation she has a history of CVA. We don't have imaging or direct report on record. She is on high intensity statin but not antiplatelet therapy. Will not add this now, but try to clarify for residential secondary prevention. No change today. (6) Hyponatremia: Status: Acute Assessment and plan: mild, has been present since last admission. Almost normal today. (7) Anemia in chronic illness: Status: Acute Assessment and plan: recent transferrin saturation normal, low TIBC c/w chronic disease. Recent B12/folate normal. Continues stable. Subjective Subjective Patient reports: no new complaints and feels better; denies diarrhea, nausea, vomiting, shortness of breath or fever Interval history since last seen: Her pain has improved, though she still feels it off and on. She does have appetite Exam Narrative Exam Narrative: GEN: Alert and oriented, sitting up in chair. No acute distress at rest. LUNGS: Normal effort, slight bibasilar rales clear with deep breath. CV: RRR with no murmurs, gallops, or rubs. ABD: hypoactive BS. Soft, not distended. RUQ tenderness with deep palpation. No palpable masses. EXT: no cyanosis, clubbing. 1+ nadya ankle edema Objective Last Vital Signs Temp 36.6 C 11/12/23 07:33 Pulse 70 11/12/23 07:33 Resp 20 05/25/24 07:33 BP 112/64 11/12/23 07:33 Pulse Ox 92 11/12/23 07:33 Laboratory Results - last 24 hr 11/11/23 11/11/23 11/12/23 07:18 16:36 06:10 WBC 8.71 RBC 3.75 L Hgb 9.5 L Hct 30.7 L MCV 82 MCH 25.3 L MCHC 30.9 L RDW 16.6 H Plt Count 358 MPV 8.6 Immature Gran % 0.8 Neutrophils % 65.6 Lymphocytes % 18.0 Monocytes % 9.8 Eosinophils % 5.6 Basophils % 0.2 Nucleated RBC % 0.0 Absolute Neutrophils 5.71 Absolute Lymphocytes 1.57 Absolute Monocytes 0.85 H Absolute Eosinophils 0.49 Absolute Basophils 0.02 Sodium 135 L Potassium 3.5 Chloride 95 L Carbon Dioxide 31.6 Anion Gap 8.4 BUN 17 Creatinine 0.9 Est GFR (CKD-EPI 2020) 67.08 Glucose 168 H Calcium 9.0 Magnesium 1.6 L Total Bilirubin 0.4 Conjugated Bilirubin AST ALT Alkaline Phosphatase Total Protein Albumin Triglycerides Total Cholesterol LDL Cholesterol, Calc HDL Cholesterol Lipase Add-On Test Request DONE 11/12/23 11/12/23 11/12/23 06:10 06:10 06:10 WBC RBC Hgb Hct MCV MCH MCHC RDW Plt Count MPV Immature Gran % Neutrophils % Lymphocytes % Monocytes % Eosinophils % Basophils % Nucleated RBC % Absolute Neutrophils Absolute Lymphocytes Absolute Monocytes Absolute Eosinophils Absolute Basophils Sodium Potassium Chloride Carbon Dioxide Anion Gap BUN Creatinine Est GFR (CKD-EPI 2020) Glucose Calcium Magnesium Total Bilirubin 0.4 Conjugated Bilirubin 0.2 AST 53 H 53 H ALT 213 H 206 H Alkaline Phosphatase 487 H Total Protein Albumin Triglycerides Total Cholesterol LDL Cholesterol, Calc HDL Cholesterol Lipase Add-On Test Request 11/12/23 11/12/23 11/12/23 06:10 06:10 06:10 WBC RBC Hgb Hct MCV MCH MCHC RDW Plt Count MPV Immature Gran % Neutrophils % Lymphocytes % Monocytes % Eosinophils % Basophils % Nucleated RBC % Absolute Neutrophils Absolute Lymphocytes Absolute Monocytes Absolute Eosinophils Absolute Basophils Sodium Potassium Chloride Carbon Dioxide Anion Gap BUN Creatinine Est GFR (CKD-EPI 2020) Glucose Calcium Magnesium Total Bilirubin Conjugated Bilirubin AST ALT Alkaline Phosphatase 480 H Total Protein 7.9 7.8 Albumin 2.3 L 2.3 L Triglycerides 176 H Total Cholesterol 131 LDL Cholesterol, Calc 59 HDL Cholesterol 37 L Lipase 152 H Add-On Test Request Time Spent with Patient Time Spent with Patient: 35-49 minutes Time was spent: preparing to see the patient(eg.review tests), obtaining and/or reviewing separately otained hiistory, ordering medications,tests, procedures, referring, communicating with other health special needs child caregiver, indepentently interpreting results, counseling the patient and care coordination
[2023-11-12 14:49] VITALS: BP 120/62; PULSE 71; RESP 18; TEMP 36.8; O2SAT 93
[2023-11-12] MEDS: HYDROmorphone 2 MG/ML SYR 0.5 MG IVP (18:26)
[2023-11-12] MEDS: Polyethylene Glycol 3350 17 GM PACKET PO (20:06)
[2023-11-12] MEDS: Benzonatate 200 MG CAP PO (20:06)
[2023-11-12] MEDS: traZODone 50 MG TAB PO (20:06)
[2023-11-12] MEDS: Insulin Glargine 300 UNITS/3 ML PEN 28 UNITS SC (20:06)
[2023-11-12] MEDS: Mineral Oil-Enema 133 ML BTL PR (20:07)
[2023-11-12 23:56] VITALS: BP 121/70; PULSE 65; RESP 18; TEMP 36; O2SAT 94
[2023-11-13] MEDS: Heparin 5,000 UNITS/ML VIAL 5000 UNITS SC ×3 (00:03→23:56)
[2023-11-13] MEDS: PIPERACILLIN/TAZO 3.375 GM in Normal Saline 50 ML IVPB ×4 (03:55→21:31)
[2023-11-13] MEDS: Normal Saline Flush 10 ML SYR IVP ×5 (03:55→22:25)
[2023-11-13] MEDS: Levothyroxine 150 MCG TAB PO (05:34)
[2023-11-13 06:28] LABS: HCT 30.5 % (36.0-46.0); HGB 9.9 g/dL (11.2-15.7); MCH 26.2 pg (27.0-33.0); MCHC 32.5 % (32.0-36.0); MCV 81 fL (80-95); MPV 8.5 fL (8.0-11.0); Platelet Count 373 10^3/uL (130-400); RBC 3.78 10^6/uL (3.93-5.22); RDW 16.3 % (11.7-14.6); RDW-SD 48.1 fL; WBC 9.42 10^3/uL (4.4-10.8)
[2023-11-13 06:51] LABS: ALT 149 U/L (14-59); AST 28 U/L (15-37); Albumin 2.3 g/dL (3.4-5.0); Alkaline Phosphatase 406 U/L (46-116); Anion Gap 7.1 mmol/L (3-11); BUN 13 mg/dL (7-18); Bilirubin, Direct 0.2 mg/dL (0.0-0.2); Bilirubin, Total 0.4 mg/dL (0.2-1.0); CO2 30.9 mmol/L (21.0-32.0); CREATININE 0.9 mg/dL (0.55-1.02); Calcium 8.9 mg/dL (8.5-10.1); Chloride 95 mmol/L (98-107); Estimated GFR 67.08 (mL/min/1.73m2); Glucose 193 mg/dL (74-106); Lipase 77 U/L (16-77); Potassium 3.8 mmol/L (3.5-5.1); Sodium 133 mmol/L (136-145); Total Protein 7.8 g/dL (6.4-8.2)
[2023-11-13 07:27] VITALS: BP 124/65; PULSE 68; RESP 19; TEMP 36.4; O2SAT 90
[2023-11-13] MEDS: Pantoprazole 40 MG TABCR PO (07:31)
[2023-11-13] MEDS: Magnesium Oxide 400 MG TAB PO (07:31)
[2023-11-13] MEDS: Potassium Chloride 20 MEQ TABCR PO (07:31)
[2023-11-13] MEDS: Ferrous Sulfate 325 MG TAB PO (07:31)
[2023-11-13] MEDS: Lactobacillus Acidophilus CAP 1 CAP PO (07:31)
[2023-11-13] MEDS: Furosemide 40 MG TAB PO ×2 (07:31→15:42)
[2023-11-13] MEDS: Polyethylene Glycol 3350 17 GM PACKET PO (07:32)
[2023-11-13] MEDS: Docusate Sodium 100 MG CAP PO (07:32)
[2023-11-13] MEDS: Atorvastatin 40 MG TAB PO (07:32)
[2023-11-13] MEDS: Insulin Aspart 300 UNITS/3 ML PEN SC ×3 (07:39→17:39)
[2023-11-13] MEDS: Insulin Glargine 300 UNITS/3 ML PEN 18 UNITS SC (07:40)
--- NOTE | 2023-11-13 08:33 | W.PM.PROGNOT ---
Date of Service Date of service: 11/13/23 Time of Service: 08:33 Assessment and Plan Assessment and plan (1) Acute cholecystitis: Status: Acute Assessment and plan: Her LFTs continue to improve, and her lipase is normalized today. She seems to be responding favorably to nonoperative management of the gallbladder so far. I think it is probably okay to advance her diet a little bit today and see how she feels. Given the appearance of the gallbladder on the previous imaging, I do think it is worth getting another CAT scan tomorrow. If it remains significantly dilated, or there are any signs of abscess, I think percutaneous drainage may be the best option at this point given her overall status and comorbidities. I will also add some increase stool softeners and enemas to see if we can help with the ongoing constipation. Subjective Subjective Interval history since last seen: Nilam complains of increased anorectal pain last night, which required manual disimpaction of the rectum. She is felt a little better since then, and has been tolerating liquids without any difficulty. Still complains of a little bit of abdominal discomfort, but it does seem better than the previous days. Exam GI Other: Abdomen is soft and nondistended. Still a little bit of tenderness in the mid epigastrium. Objective Last Vital Signs Temp 97.5 F L 11/13/23 07:27 Pulse 68 11/13/23 07:27 Resp 19 11/13/23 07:27 BP 124/65 11/13/23 07:27 Pulse Ox 90 L 11/13/23 07:27 Laboratory Results - last 24 hr 11/13/23 06:10 WBC 9.42 RBC 3.78 L Hgb 9.9 L Hct 30.5 L MCV 81 MCH 26.2 L MCHC 32.5 RDW 16.3 H Plt Count 373 MPV 8.5 Sodium 133 L Potassium 3.8 Chloride 95 L Carbon Dioxide 30.9 Anion Gap 7.1 BUN 13 Creatinine 0.9 Est GFR (CKD-EPI 2020) 67.08 Glucose 193 H Calcium 8.9 Total Bilirubin 0.4 Conjugated Bilirubin 0.2 AST 28 ALT 149 H Alkaline Phosphatase 406 H Total Protein 7.8 Albumin 2.3 L Lipase 77 Time Spent with Patient Time Spent with Patient: 25-34 minutes Time was spent: preparing to see the patient(eg.review tests), ordering medications,tests, procedures, indepentently interpreting results and counseling the patient
[2023-11-13] MEDS: Magnesium Citrate 300 ML BTL 150 ML PO (09:42)
[2023-11-13 15:35] VITALS: BP 110/63; PULSE 71; RESP 17; TEMP 36.1; O2SAT 92
[2023-11-13] MEDS: HYDROmorphone 2 MG/ML SYR 0.5 MG IVP (15:41)
--- NOTE | 2023-11-13 16:55 | PGE_ITS ---
Date of Service Date of service: 11/13/23 Time of Service: 16:56 Assessment and Plan Assessment and plan (1) Acute cholecystitis: Status: Acute Assessment and plan: With mild elevated lipase but minimal symptoms c/w pancreatitis. Conservative managment per , on pip/tazo with fluids and pain control. She continues to improve clinically and on labs. (2) Poorly controlled type 2 diabetes mellitus with peripheral neuropathy: Status: Acute Assessment and plan: With chronic poor control. Sugars higher today eating despite higher dose glargine, will titrate up again on glargine and continue sliding scale. Holding metformin with contrast CT. (3) Unstageable pressure ulcer of right heel: Status: Acute Assessment and plan: This does not look actively infected. Keep covered and offloaded. Followed by [facility] as [facility]. No change (4) CHF (congestive heart failure): Assessment and plan: She is not currently fluid overloaded. (5) Stroke: Assessment and plan: per previous documentation she has a history of CVA. We don't have imaging or direct report on record. She is on high intensity statin but not antiplatelet therapy. Will not add this now, but try to clarify for [facility] secondary prevention. No change today. (6) Hyponatremia: Status: Acute Assessment and plan: mild, has been present since last admission. (7) Anemia in chronic illness: Status: Acute Assessment and plan: recent transferrin saturation normal, low TIBC c/w chronic disease. Recent B12/folate normal. Continues stable. Subjective Subjective Patient reports: no new complaints and fever; denies nausea, vomiting or other Interval history since last seen: Pain has improved. She is eating. Exam Narrative Exam Narrative: GEN: Alert and oriented, sitting in bed. No acute distress at rest. LUNGS: Normal effort, lungs CTAB. CV: RRR with no murmurs, gallops, or rubs. ABD: hypoactive BS. Soft, not distended. RUQ tenderness with deep palpation. No palpable masses. EXT: no cyanosis, clubbing. 1+ nadya ankle edema Objective Last Vital Signs Temp 36.1 C L 11/13/23 15:35 Pulse 71 11/13/23 15:35 Resp 17 11/13/23 15:35 BP 110/63 11/13/23 15:35 Pulse Ox 92 11/13/23 15:35 Laboratory Results - last 24 hr 11/13/23 06:10 WBC 9.42 RBC 3.78 L Hgb 9.9 L Hct 30.5 L MCV 81 MCH 26.2 L MCHC 32.5 RDW 16.3 H Plt Count 373 MPV 8.5 Sodium 133 L Potassium 3.8 Chloride 95 L Carbon Dioxide 30.9 Anion Gap 7.1 BUN 13 Creatinine 0.9 Est GFR (CKD-EPI 2020) 67.08 Glucose 193 H Calcium 8.9 Total Bilirubin 0.4 Conjugated Bilirubin 0.2 AST 28 ALT 149 H Alkaline Phosphatase 406 H Total Protein 7.8 Albumin 2.3 L Lipase 77 Time Spent with Patient Time Spent with Patient: 25-34 minutes Time was spent: preparing to see the patient(eg.review tests), obtaining and/or reviewing separately otained hiistory, ordering medications,tests, procedures, referring, communicating with other health caregiver assisted living, indepentently interpreting results and counseling the patient
[2023-11-13] MEDS: Insulin Glargine 300 UNITS/3 ML PEN 30 UNITS SC (21:28)
[2023-11-13 23:43] VITALS: BP 120/77; PULSE 71; RESP 18; TEMP 35.8; O2SAT 92
--- NOTE | 2023-11-14 | DI.CT_ITS ---
Exam(s) CT ABDOMEN W EXAM: CT ABDOMEN W CLINICAL HISTORY: gallbladder abscess TECHNIQUE: Imaging Protocol: Axial computed tomography images with coronal and sagittal reformatted images were created and reviewed CONTRAST MATERIAL: Intravenous: Omnipaque 350 Contrast volume:100 ml Contrast route:IV - Oral: yes COMPARISON: CT CT CHEST PE CTA from 10/24/[address] ABDOMEN PELVIS W from 11/11/2023 FINDINGS: ABDOMEN: Lung Bases: Normal where visualized. Liver: Normal density. No measurable mass. Gallbladder and biliary tract: Gallbladder is again noted to be abnormally distended and shows wall t hickening as well as stones. Stone is noted in the gallbladder neck. There is no evidence of absces s. There is stranding in the surrounding fat. Pancreas: Normal density, no abnormal calcifications or inflammatory process. Spleen: Normal. Kidneys: Normal size, contour and axis. No radiodense stones or obstructive uropathy. No masses seen. Adrenal glands: No masses seen. Abdominal Aorta: Abdominal portion non-dilated. Lymph nodes: Within normal limits. Bowel: No wall thickening or evidence of obstruction. Stomach contains food and contrast material.. Large quantity of stool again noted. Bones: Unremarkable for age. IMPRESSION: No significant change in distended gallbladder with wall thickening, gallstones and surrounding stran ding, consistent with acute cholecystitis. No abscess identified. RADIATION DOSE DELIVERED: Total DLP DATA REPOSITORY: All CT scans at this facility are submitted to the National Radiology Data Registry (NRDR) Dose Index Registry (DIR) with the [employer] [place] [employer] (ACR). RADIATION OPTIMIZATION: All CT scans at this facility use at least one of these dose optimization te chniques: automated exposure control; mA and/or kV adjustment per patient size (includes targeted exa ms where dose is matched to clinical indication); or iterative reconstruction.
[2023-11-14] MEDS: PIPERACILLIN/TAZO 3.375 GM in Normal Saline 50 ML IVPB ×2 (04:27→10:14)
[2023-11-14] MEDS: Levothyroxine 150 MCG TAB PO (05:35)
[2023-11-14] MEDS: Breeza Beverage 473 ML BTL PO (07:07)
[2023-11-14] MEDS: Omnipaque 350 MG/ML 50 ML BTL 25 ML IJ (07:08)
[2023-11-14 07:21] LABS: HCT 33.5 % (36.0-46.0); HGB 10.6 g/dL (11.2-15.7); MCH 25.7 pg (27.0-33.0); MCHC 31.6 % (32.0-36.0); MCV 81 fL (80-95); MPV 8.6 fL (8.0-11.0); Platelet Count 433 10^3/uL (130-400); RBC 4.13 10^6/uL (3.93-5.22); RDW 16.2 % (11.7-14.6); RDW-SD 48.1 fL; WBC 10.87 10^3/uL (4.4-10.8)
[2023-11-14 07:40] LABS: Anion Gap 7.1 mmol/L (3-11); BUN 18 mg/dL (7-18); CO2 30.9 mmol/L (21.0-32.0); CREATININE 1.2 mg/dL (0.55-1.02); Chloride 92 mmol/L (98-107); Glucose 221 mg/dL (74-106); Potassium 3.9 mmol/L (3.5-5.1); Sodium 130 mmol/L (136-145)
[2023-11-14 07:56] VITALS: BP 126/76; PULSE 76; RESP 17; TEMP 36.5; O2SAT 93
[2023-11-14] MEDS: Normal Saline - Diluent 50 ML VIAL IJ (08:02)
[2023-11-14] MEDS: Omnipaque 350 MG/ML 100 ML BTL IJ (08:02)
[2023-11-14] MEDS: Pantoprazole 40 MG TABCR PO (08:39)
[2023-11-14] MEDS: Docusate Sodium 100 MG CAP PO (08:40)
[2023-11-14] MEDS: Potassium Chloride 20 MEQ TABCR PO (08:40)
[2023-11-14] MEDS: Magnesium Oxide 400 MG TAB PO (08:40)
[2023-11-14] MEDS: Lactobacillus Acidophilus CAP 1 CAP PO (08:40)
[2023-11-14] MEDS: Atorvastatin 40 MG TAB PO (08:40)
[2023-11-14] MEDS: Ferrous Sulfate 325 MG TAB PO (08:40)
[2023-11-14] MEDS: Furosemide 40 MG TAB PO ×2 (08:41→16:52)
[2023-11-14] MEDS: Insulin Glargine 300 UNITS/3 ML PEN 20 UNITS SC (08:41)
[2023-11-14] MEDS: Insulin Aspart 300 UNITS/3 ML PEN SC ×3 (08:42→16:52)
[2023-11-14] MEDS: Polyethylene Glycol 3350 17 GM PACKET PO ×2 (08:42→22:34)
[2023-11-14] MEDS: Lactated Ringers 1,000 ML 1000 ML IV (08:58)
[2023-11-14] MEDS: Normal Saline Flush 10 ML SYR IVP ×4 (08:58→22:33)
--- NOTE | 2023-11-14 09:27 | DI.VRAD_ITS ---
PROCEDURE INFORMATION: Exam: CT Abdomen With Contrast Exam date and time: 11/14/2023 8:24 AM Age: 73 years old Clinical indication: Gallbladder abscess TECHNIQUE: Imaging protocol: Computed tomography of the abdomen with contrast. Contrast material: OMNIPAQUE 350; Contrast volume: 100 ml; Contrast route: INTRAVENOUS (IV); Other contrast: Oral, Omnipaque 350 \T\ Brezza, 475; COMPARISON: CT ABDOMEN PELVIS W 11/11/2023 (NO REPORT AVAILABLE) FINDINGS: Cholelithiasis is present including at least 1 stone at the gallbladder neck. There is mild gallbladder wall thickening. Subtle inflammatory reaction noted in the pericholecystic fat. However, no discrete extraluminal fluid collection to indicate abscess is identified. There is no biliary duct dilation. No obvious acute abnormality of liver, spleen, pancreas, or adrenal glands. Portal vein, splenic vein, and SMV are patent. Abdominal aorta is normal caliber. Symmetric renal cortical enhancement without hydronephrosis. No evidence of bowel obstruction in the upper abdomen. Abundant stool is present throughout the colon. Nodular density in the subcutaneous fat of the right lower quadrant is incompletely imaged but probably without significant change from 11/11/2023. IMPRESSION: 1. Cholelithiasis and acute cholecystitis, without obvious drainable abscess. 2. Constipation? Dictated and Authenticated by: Sonny Castillo MD. Ordering:VERNA Mc MD
[2023-11-14] MEDS: Mineral Oil-Enema 133 ML BTL PR (10:15)
[2023-11-14] MEDS: Heparin 5,000 UNITS/ML VIAL 5000 UNITS SC ×2 (11:44→22:43)
--- NOTE | 2023-11-14 13:36 | W.PM.PROGNOT ---
Date of Service Date of service: 11/14/23 Time of Service: 13:36 Assessment and Plan Assessment and plan (1) Acute cholecystitis: Status: Acute Assessment and plan: Hemodynamics all remain very reassuring, and overall, her symptoms seem much better compared to when she first came to the hospital. CAT scan today looks about the same as it did the other day. Certainly, there is no big abscess, but the gallbladder itself is still quite distended, and based on the HIDA scan previously, I suspect it is not going to empty appropriately. I still think she is fairly significant risk for any type of surgical intervention and would really like to stay out of the operating room is much as possible to minimize any possible harm. I do think this is a good target for percutaneous cholecystostomy tube, and I can reach out to [facility] tomorrow to see what their thoughts are. The E. coli in the urine is fairly resistant to most antibiotics. Reassuringly, she does not have any real significant urinary tract infection symptoms, but I do worry with the resistance pattern, the perhaps Zosyn is not the best option for biliary tract coverage. I will switch her over to Unasyn today, and see how she does in the next day or 2. Subjective Subjective Interval history since last seen: She really think she is feeling a little bit better today compared to yesterday. She has been tolerating some diet without any issues. She has not had any bowel movements today. Exam GI Other: Her abdomen is soft and nondistended. She remains a little bit tender in the mid epigastrium slightly towards the right side. Again, it is about the same as yesterday. Objective Last Vital Signs Temp 97.7 F 11/14/23 07:56 Pulse 76 11/14/23 07:56 Resp 17 11/14/23 07:56 BP 126/76 11/14/23 07:56 Pulse Ox 93 11/14/23 07:56 Laboratory Results - last 24 hr 11/14/23 06:25 WBC 10.87 H RBC 4.13 Hgb 10.6 L Hct 33.5 L MCV 81 MCH 25.7 L MCHC 31.6 L RDW 16.2 H Plt Count 433 H MPV 8.6 Sodium 130 L Potassium 3.9 Chloride 92 L Carbon Dioxide 30.9 Anion Gap 7.1 BUN 18 Creatinine 1.2 H Est GFR (CKD-EPI 2020) 47.50 Glucose 221 H Calcium 9.0 Time Spent with Patient Time Spent with Patient: 25-34 minutes Time was spent: preparing to see the patient(eg.review tests), ordering medications,tests, procedures, referring, communicating with other health care transitions nurse, indepentently interpreting results, counseling the patient and care coordination
[2023-11-14 15:22] VITALS: BP 131/76; PULSE 77; RESP 17; TEMP 36.8; O2SAT 94
[2023-11-14] MEDS: AMPICILLIN/SULBACTAM 3 GM in Normal Saline 100 ML IVPB ×2 (15:52→22:34)
--- NOTE | 2023-11-14 16:09 | PGE_ITS ---
Date of Service Date of service: 11/14/23 Time of Service: 16:09 Assessment and Plan Assessment and plan (1) Acute cholecystitis: Status: Acute Assessment and plan: With mild elevated lipase but minimal symptoms c/w pancreatitis. Conservative managment per , on pip/tazo with fluids and pain control. She continues to improve clinically and on labs. Luis considering [facility] for drainage tube rather than surgery, which sounds reasonable. (2) Poorly controlled type 2 diabetes mellitus with peripheral neuropathy: Status: Acute Assessment and plan: With chronic poor control. Sugars higher today again despite higher dose glargine, will titrate up again on glargine and continue sliding scale. Holding metformin with contrast CT. (3) Bacteriuria, asymptomatic: Status: Acute Assessment and plan: I don't think this is pathologic, U/a wiht only 3-5 WBC on admission. I would not treat this culture, but AMP/SUL good option for GI infection. Urine resistant to pip/tazo and clinically improving on this. (4) Unstageable pressure ulcer of right heel: Status: Acute Assessment and plan: This does not look actively infected. Keep covered and offloaded. Followed by [facility] as [facility]. No change (5) CHF (congestive heart failure): Assessment and plan: She is not currently fluid overloaded. Preserved LVEF 50% on 10/16/23 echo. Continue to monitor. Qualifiers: Heart failure type: diastolic Heart failure chronicity: chronic Qualified Code(s): I50.32 - Chronic diastolic (congestive) heart failure (6) Hyponatremia: Status: Acute Assessment and plan: mild, has been present since last admission. (7) Anemia in chronic illness: Status: Acute Assessment and plan: recent transferrin saturation normal, low TIBC c/w chronic disease. Recent B12/folate normal. Continues stable. Subjective Subjective Patient reports: no new complaints and voiding w/o difficulty; denies diarrhea, blood in stool, nausea, vomiting, shortness of breath or fever Interval history since last seen: no abdominal pain now. No dysuria or other urine symtoms Exam Narrative Exam Narrative: GEN: Alert and oriented, sitting in bed. No acute distress at rest. LUNGS: Normal effort, lungs CTAB. CV: RRR with no murmurs, gallops, or rubs. ABD: hypoactive BS. Soft, not distended. RUQ tenderness with deep palpation. No palpable masses. EXT: no cyanosis, clubbing. 1+ nadya ankle edema Objective Last Vital Signs Temp 36.8 C 11/14/23 15:22 Pulse 77 11/14/23 15:22 Resp 17 11/14/23 15:22 BP 131/76 11/14/23 15:22 Pulse Ox 94 11/14/23 15:22 Laboratory Results - last 24 hr 11/14/23 06:25 WBC 10.87 H RBC 4.13 Hgb 10.6 L Hct 33.5 L MCV 81 MCH 25.7 L MCHC 31.6 L RDW 16.2 H Plt Count 433 H MPV 8.6 Sodium 130 L Potassium 3.9 Chloride 92 L Carbon Dioxide 30.9 Anion Gap 7.1 BUN 18 Creatinine 1.2 H Est GFR (CKD-EPI 2020) 47.50 Glucose 221 H Calcium 9.0 Time Spent with Patient Time Spent with Patient: 25-34 minutes Time was spent: preparing to see the patient(eg.review tests), obtaining and/or reviewing separately otained hiistory, ordering medications,tests, procedures, referring, communicating with other health career discovery teacher, indepentently interpreting results and care coordination
[2023-11-14] MEDS: Insulin Glargine 300 UNITS/3 ML PEN 33 UNITS SC (22:32)
[2023-11-14] MEDS: traZODone 50 MG TAB PO (22:32)
[2023-11-15 01:37] VITALS: BP 140/68; PULSE 81; RESP 18; TEMP 36.7; O2SAT 94
[2023-11-15] MEDS: AMPICILLIN/SULBACTAM 3 GM in Normal Saline 100 ML IVPB ×3 (04:05→16:14)
[2023-11-15] MEDS: Pantoprazole 40 MG TABCR PO (06:25)
[2023-11-15] MEDS: Levothyroxine 150 MCG TAB PO (06:25)
[2023-11-15 07:26] LABS: HCT 31.2 % (36.0-46.0); MCH 25.5 pg (27.0-33.0); MCHC 32.1 % (32.0-36.0); MCV 80 fL (80-95); MPV 8.7 fL (8.0-11.0); Platelet Count 435 10^3/uL (130-400); RBC 3.92 10^6/uL (3.93-5.22); RDW 16.2 % (11.7-14.6); RDW-SD 46.5 fL; WBC 16.06 10^3/uL (4.4-10.8)
[2023-11-15 07:51] LABS: ALT 83 U/L (14-59); AST 15 U/L (15-37); Albumin 2.4 g/dL (3.4-5.0); Alkaline Phosphatase 315 U/L (46-116); Anion Gap 7.8 mmol/L (3-11); BUN 14 mg/dL (7-18); Bilirubin, Direct 0.2 mg/dL (0.0-0.2); Bilirubin, Total 0.5 mg/dL (0.2-1.0); CO2 29.2 mmol/L (21.0-32.0); CREATININE 1.1 mg/dL (0.55-1.02); Calcium 8.7 mg/dL (8.5-10.1); Chloride 92 mmol/L (98-107); Estimated GFR 52.73 (mL/min/1.73m2); Glucose 207 mg/dL (74-106); Potassium 3.9 mmol/L (3.5-5.1); Sodium 129 mmol/L (136-145)
[2023-11-15 08:02] VITALS: BP 125/73; PULSE 88; RESP 20; TEMP 36.3; O2SAT 91
--- NOTE | 2023-11-15 10:12 | PDOC.CMDIS ---
Date of service: 11/15/23 Time of Service: 10:12 LACE Index Scoring Tool Questions: Length of Stay (in days): 4 - 6 Was the patient admitted via the E.D.?: Yes Comorbidities: Cerebrovascular Disease, Diabetes w/o Complication and Congestive Heart Failure E.D. Visits: 3 Answers: Total Score: 15 Risk of Readmission: High Risk Care Management Discharge Plan Reason for Hospitalization: gallstone pancreatitis Discharge Plan: Nilam will return to the [facility] when medically stable. She will follow up with her surgeon and plan of care and transport via [facility] coordinated by CM. Patient/Family Education Needs: Review discharge instructions, discuss Ask Me Three SDOH Health Related Social Needs: Health related social needs details From [facility]
--- NOTE | 2023-11-15 10:31 | PDOC.CMPRO ---
Date of service: 11/15/23 Time of Service: 10:31 Care Management Progress Note Progress Note Text Progress Note Text: S/O:Nilam was sitting up in a chair when CHAPO met with her. She stated that she is not feeling good at all. She shared that she has a headache and is very weak and asked to go back to bed. CHAPO conveyed the request to her nurse. Nilam is waiting to go to [facility] for a down and back IR cholecystotomy tube placement. They did not have availability today; hopefully they will be able to do the procedure tomorrow. Nilam's vital signs are stable and she renmains afebrile. Her WBC increased from 10.87 to 16.0 today, however her LFTs are improving. A: Nilam is a 73 year old woman admitted on 11/11/23 with gallstone pancreatitis P:Anticipate Nilam will be discharged back to the [facility] when medically ready. Her insurance will require another prior authorization which will be requested by [facility].She will follow up with her surgeon and plan of care and transport via RCT coordinated by CHAPO. CM will follow and continue to assess for discharge needs. SDOH(Care Management) Screening Will the Patient Participate in the Screening?: Unable to obtain
[2023-11-15] MEDS: Normal Saline Flush 10 ML SYR IVP ×2 (10:32→23:33)
[2023-11-15] MEDS: Insulin Glargine 300 UNITS/3 ML PEN 22 UNITS SC (10:32)
[2023-11-15] MEDS: Insulin Aspart 300 UNITS/3 ML PEN SC ×2 (12:53→16:24)
--- NOTE | 2023-11-15 13:23 | W.PM.PROGNOT ---
Date of Service Date of service: 11/15/23 Time of Service: 13:30 Assessment and Plan Assessment and plan (1) Diabetic foot infection: Status: Acute (2) Poorly controlled type 2 diabetes mellitus with peripheral neuropathy: Status: Acute (3) Obesity: Status: Chronic (4) Acute cholecystitis: Status: Acute Assessment and plan: - Antibiotics: Meropenem started 11/14. Change from Unasyn for better coverage by Dr. Jurado at [facility] for her recurrent UTIs -Holding subcu heparin Continue supportive care patient is high risk because of her multiple medical Comorbidities and frail status. Paperwork completed for [facility] (5) Anemia in chronic illness: Status: Acute (6) Unstageable pressure ulcer of right heel: Status: Acute (7) Lumbar back pain with radiculopathy affecting right lower extremity: Status: Acute (8) Hypothyroid: (9) Hyperglycemia due to type 2 diabetes mellitus: Qualifiers: Diabetes mellitus mcfp insulin use: with mcfp use Qualified Code(s): E11.65 - Type 2 diabetes mellitus with hyperglycemia; Z79.4 - nursing home (current) use of insulin (10) CHF (congestive heart failure): Qualifiers: Heart failure chronicity: chronic Heart failure type: diastolic Qualified Code(s): I50.32 - Chronic diastolic (congestive) heart failure (11) Stroke: (12) Ambulatory dysfunction: Status: Acute (13) Weakness: Status: Acute Subjective Subjective Interval history since last seen: Patient was admitted on 11/10 with acute on chronic cholecystitis Chollithiasis. She had pretty significant sepsis and pancreatitis when she was admitted. She is a very poor surgical candidate due to her her longstanding poorly controlled diabetes and associated complications. She will being referred to [facility] for percutaneous cholecystotomy tube. Arrangements are being made for her to go for this procedure on 529. Pt is doing well. no headaches. No CP or SOB. no productive cough. no dysuria. no leg pain or swelling. She has a chronic open wound on her right heel due to her very poorly controlled diabetes White count and platelets continue to go. LFTs continue to increase. Last A1c was greater than 13 echo 10/11 Conclusion Mild concentric left ventricular hypertrophy. Ejection fraction is 50%. Septal motion is somewhat paradoxic Normal right ventricular size and function Both atria are normal in size Mild mitral annular calcification Estimated right ventricular systolic pressure is 34 mmHg Dilated ascending aorta 4.[address] 11/13Gallbladder and biliary tract: Gallbladder is again noted to be abnormally distended and shows wall thickening as well as stones. Stone is noted in the gallbladder neck. There is no evidence of abscess. There is stranding in the surrounding fat. Pancreas: Normal density, no abnormal calcifications or inflammatory process. -Patient has been deemed a very poor surgical candidate and is scheduled to go to [facility] tomorrow for a cholecystotomy tube. Objective Last Vital Signs Temp 36.3 C L 11/15/23 08:02 Pulse 88 11/15/23 08:02 Resp 20 11/15/23 08:02 BP 125/73 11/15/23 08:02 Pulse Ox 91 L 11/15/23 08:02 Laboratory Results - last 24 hr 11/15/23 06:22 WBC 16.06 H RBC 3.92 L Hgb 10.0 L Hct 31.2 L MCV 80 MCH 25.5 L MCHC 32.1 RDW 16.2 H Plt Count 435 H MPV 8.7 Sodium 129 L Potassium 3.9 Chloride 92 L Carbon Dioxide 29.2 Anion Gap 7.8 BUN 14 Creatinine 1.1 H Est GFR (CKD-EPI 2020) 52.73 Glucose 207 H Calcium 8.7 Total Bilirubin 0.5 Conjugated Bilirubin 0.2 AST 15 ALT 83 H Alkaline Phosphatase 315 H Total Protein 8.0 Albumin 2.4 L Time Spent with Patient Time Spent with Patient: <25 minutes Time was spent: preparing to see the patient(eg.review tests), obtaining and/or reviewing separately otained hiistory, ordering medications,tests, procedures, referring, communicating with other health rn progressive care unit, indepentently interpreting results and care coordination
[2023-11-15 14:45] VITALS: BP 130/71; PULSE 86; RESP 19; TEMP 36.9; O2SAT 93
[2023-11-15] MEDS: Lactated Ringers 1,000 ML 75 ML IV (15:45)
--- NOTE | 2023-11-15 16:37 | PGE_ITS ---
Date of Service Date of service: 11/15/23 Time of Service: 16:37 Assessment and Plan Assessment and plan (1) Acute cholecystitis: Status: Acute Assessment and plan: repeat CT scan of abdomen 11/13 and biliary nuclear scan 11/10 demonstrated GB thickening and distension w/ surrounding edema and gallstones. Patient intially treated w/ Zosyn 11/10-11/13 and changed to Unasyn on 11/13 for unclear reasons. Blood cultures were not obtained on admission but urine culture 11/10 demonstrates recurrent UTI w/ ESBL E coli (similar to prior admission. Although Unasyn is listed as being sensitive given the extensive resistance to Zosyn and all cephalosporins, I would not rely on Unasyn to control her infection. Given her ongoing cholecystitis w/ no immediate plans for cholecystectomy to be done here (per my discussion w/ Dr. Hanks, she is not a candidate to be done here), then I would change to a carbapenem such as meropenem or imipenem. She should have a cholecystostomy tube placed (apparently surgical service is working on this w/ [facility]). (2) Poorly controlled type 2 diabetes mellitus with peripheral neuropathy: Status: Acute Assessment and plan: With chronic poor control. Sugars higher today again despite higher dose glargine, will titrate up again on glargine and continue sliding scale. Holding metformin with contrast CT. (3) Bacteriuria, asymptomatic: Status: Acute Assessment and plan: antibiotic switch to meropenem as noted above (4) Unstageable pressure ulcer of right heel: Status: Acute Assessment and plan: This does not look actively infected. Keep covered and offloaded. Followed by [facility] as outpatient. No change (5) CHF (congestive heart failure): Assessment and plan: She is not currently fluid overloaded. Preserved LVEF 50% on 10/16/23 echo. Con tinue to monitor. Qualifiers: Heart failure type: diastolic Heart failure chronicity: chronic Qualified Code(s): I50.32 - Chronic diastolic (congestive) heart failure (6) Hyponatremia: Status: Acute Assessment and plan: mild, has been present since last admission. (7) Anemia in chronic illness: Status: Acute Assessment and plan: recent transferrin saturation normal, low TIBC c/w chronic disease. Recent B12/folate normal. Continues stable. Subjective Subjective Interval history since last seen: Nilam states that she just does not feel well but can not be more specific, she has still has some low grade abdominal discomfort but not exquisite pain and no vomiting. Surgery service is seeking referral for IR directed biliary tube for drainage since she is not a good surgical candidate for cholecystectomy for here. Her blood cultures show no growth but once again she has an ESBL E. coli in her urine. She does not have a crump in place so I can not blame this on crump contamination. She is afebrile. Exam Narrative Exam Narrative: Obese white female, alert and oriented, no acute distress. Lungs: clear Heart: Regular Abdomen: obese, normal bowel sounds, soft, minimal tenderness w/ palpation in epigastrium and RUQ no rebound tenderness Objective Last Vital Signs Temp 36.9 C 11/15/23 14:45 Pulse 86 11/15/23 14:45 Resp 19 11/15/23 14:45 BP 130/71 11/15/23 14:45 Pulse Ox 93 11/15/23 14:45 Laboratory Results - last 24 hr 11/15/23 06:22 WBC 16.06 H RBC 3.92 L Hgb 10.0 L Hct 31.2 L MCV 80 MCH 25.5 L MCHC 32.1 RDW 16.2 H Plt Count 435 H MPV 8.7 Sodium 129 L Potassium 3.9 Chloride 92 L Carbon Dioxide 29.2 Anion Gap 7.8 BUN 14 Creatinine 1.1 H Est GFR (CKD-EPI 2020) 52.73 Glucose 207 H Calcium 8.7 Total Bilirubin 0.5 Conjugated Bilirubin 0.2 AST 15 ALT 83 H Alkaline Phosphatase 315 H Total Protein 8.0 Albumin 2.4 L Time Spent with Patient Time Spent with Patient: 35-49 minutes Time was spent: preparing to see the patient(eg.review tests), ordering medications,tests, procedures, referring, communicating with other health manager progressive care, indepentently interpreting results, counseling the patient and care coordination
[2023-11-15] MEDS: Insulin Glargine 300 UNITS/3 ML PEN 33 UNITS SC (23:32)
[2023-11-15 23:33] VITALS: BP 128/60; PULSE 86; RESP 14; TEMP 37.1; O2SAT 94
[2023-11-16 03:02] VITALS: TEMP 36.7; O2SAT 97
[2023-11-16] MEDS: Lactated Ringers 1,000 ML 75 ML IV ×2 (06:20→19:11)
[2023-11-16 08:30] VITALS: BP 123/61; PULSE 80; RESP 18; TEMP 37.3; O2SAT 97
[2023-11-16] MEDS: Normal Saline Flush 10 ML SYR IVP ×2 (09:02→20:32)
[2023-11-16] MEDS: Insulin Glargine 300 UNITS/3 ML PEN 22 UNITS SC (09:04)
[2023-11-16] MEDS: Insulin Aspart 300 UNITS/3 ML PEN SC (09:05)
--- NOTE | 2023-11-16 11:15 | NUR.NOTE ---
Arturo here to take pt to [facility] for bili drain, up & back trip planned. Nursing Note:
--- NOTE | 2023-11-16 12:03 | STREC_ITS ---
Date of service: 11/16/23 Time of Service: 12:03 Speech Therapy Recommendations Report ST Recommendations: INTERDISCIPLINARY PROFESSOR NON-TREATMENT NOTE/PLAN: Patient has been NPO yesterday and today, in anticipation of procedure for biliary tube drainage (likely [id number] at [facility] Per discussion with nursing, will not complete INTERDISCIPLINARY PROFESSOR evaluation this date. INTERDISCIPLINARY PROFESSOR will attempt clinical swallow evaluation tomorrow, as able. If patient returns and would like to eat, ok to implement most recent diet and strict aspiration precautions per INTERDISCIPLINARY PROFESSOR evaluation from most recent hospitalization. Patient does have a history of fluctuating swallow function along with lethargy/medical events, if patient appears with increased lethargy & confusion per nursing discretion, proceed with caution (complete oral care, start with small sips water, puree bites to ensure tolerance before proceeding with full meal). If consistent s/sx aspiration occur, discontinue PO, complete oral care, and await INTERDISCIPLINARY PROFESSOR bedside evaluation. WHEN MEDICALLY CLEARED FOR PO INTAKE: Diet Recommendations: ? SOLIDS: 6-Soft & Bite-Sized Solids - Extra sauces & gravy No mixed textures (e.g., thin broth soup with chunks, cereal with milk) LIQUIDS: 0-Thin Liquids MEDICATIONS: Whole With 4-PUREES Alter medications only as advised by MD or Pharmacist RISK MANAGEMENT: Level of Assistance/Supervision: Provide set-up assist with initial verbal reminders for aspiration precautions as below Intermittent supervision for all PO intake Positioning and environment: PO intake only when awake/alert? Reduce auditory and/or visual distractions when eating [place] upright for all PO intake. Oral hygiene Minimum of BID/2x per day Using friction with toothbrush on all oral structures as tolerated Remove and clean dentures daily Strategies/Adaptations/Assistive Equipment: Small sips Small bites Slow rate of intake Reflux Precautions: Maintain fully upright position at least 30 minutes after meals Avoid meals/snacks 2-3 hours prior to reclining/sleeping Sleep with head of bed elevated to reduce likelihood of nocturnal reflux
--- NOTE | 2023-11-16 13:42 | PHA.REVIEW2 ---
Pharmacy Admission Review Admission Clinical Review Admission Pharmacy Review: Bacteriuria, asymptomatic (Acute) Anemia in chronic illness (Acute) Hyponatremia (Acute) Acute cholecystitis (Acute) Unstageable pressure ulcer of right heel (Acute) Poorly controlled type 2 diabetes mellitus with peripheral neuropathy (Acute) Diabetic foot infection (Acute) Lumbar back pain with radiculopathy affecting right lower extremity (Acute) Ambulatory dysfunction (Acute) Weakness (Acute) No Known Allergies Allergy (Unverified 11/11/23 08:18) Resuscitation Status DNR/DNI Height 5 ft 5 in Weight 101.605 kg Pharmacy Admission Review Renal Dosing Renal Dosing: BUN 14 mg/dL (7-18) 11/15/23 06:22 Creatinine 1.1 mg/dL (0.55-1.02) H 11/15/23 06:22 Medications needing adjustments: Intervened (CrCl 53.01 mL/min) List of meds needing interventions: Initially changed meropenem dose to q12h due to CrCl < 50, but CrCl has improved so changed back to q8h Anticoagulation Anticoagulation: Hgb 10.0 g/dL (11.2-15.7) L 11/15/23 06:22 Hct 31.2 % (36.0-46.0) L 11/15/23 06:22 Plt Count 435 10^3/uL (130-400) H 11/15/23 06:22 Creatinine 1.1 mg/dL (0.55-1.02) H 11/15/23 06:22 DVT Prophylaxis: Reviewed (SCDs - had order for heparin but was discontinued) Opiate Usage Evaluate Pain Scale/Pains Meds: Reviewed (Hydromorphone PRN) Scheduled Bowel Reg ordered if on Opiates?: Yes (Miralax and docusate) Relevant Labs Relevant Labs: Sodium 129 mmol/L (136-145) L 11/15/23 06:22 Potassium 3.9 mmol/L (3.5-5.1) 11/15/23 06:22 Chloride 92 mmol/L (98-107) L 11/15/23 06:22 Magnesium 1.6 mg/dL (1.8-2.4) L 11/11/23 07:18 Electrolytes, C-Reactive P, ESR: Reviewed (Labs pending for today) DM Control DM Control: Glucose 207 mg/dL (74-106) H 11/15/23 06:22 Finger Stick Blood Glucose 149 0905 Finger Stick Blood Glucose 149 0904 Finger Stick Blood Glucose 149 0827 Finger Stick Blood Glucose 149 0827 DM Control: Reviewed Insulin Dosing, Diabetic Medication: Has order for SS insulin and glargine dosed BID Cardiac Review BP, HR, EF%: Reviewed (BP/HR WNL) QTc Review QTc: Reviewed (508 from 11/11/23) IV to PO Switch IV Medications: Reviewed (hydromorphone, meropenem and ondansetron) Home Meds Home Med List reviewed: Reviewed Relevent Home Meds Not ordered & why?: Metformin (has orders for SS insulin and BID glargine Current Meds Current Medication Order Review: Reviewed Pharmacy Antibiotic Review Relevant Labs: WBC 16.06 10^3/uL (4.4-10.8) H 11/15/23 06:22 Procalcitonin 0.7 ng/mL 11/11/23 07:18 Temperature 37.3 C Temperature 36.7 C Pharmacy Antibiotic Activity: C/S review and Renal function adjustment Comments: Patient is on meropenem 2g q8h, day 1 for pancreatitis. Dose was changed from q12h due to improved kidney function with CrCl > 50 mL/min. Urine culture positive for E. coli.
--- NOTE | 2023-11-16 15:10 | NUR.NOTE ---
Call from Anish at [facility], IR. Pt is in recovery now, had drain placed in gallbladder with a bag to gravity to drain it. Anish reported that they removed 120ml from the gallbladder before placing the drain to gravity. There are orders to flush the drain qith 3-5 ml sterile saline if it puts out <25ml in a 24 hour period. Pt c/o right shoulder pain post drain placement, they were treating her with versed and fentanyl during procedure, and she appears comfortable now. She did desat after 2nd dose, but is now sating well on RA, SBP in the 140s. They will call EMS to pick her up and bring her back to [facility]. Nursing Note:
--- NOTE | 2023-11-16 17:17 | W.PM.PROGNOT ---
Date of Service Date of service: 11/16/23 Time of Service: 07:15 Assessment and Plan Assessment and plan (1) Acute cholecystitis: Status: Acute Assessment and plan: We have made arrangements for insertion of percutaneous cholecystostomy tube today. Will see how she does after the procedure, and hopefully can get her discharged within the next day. Subjective Subjective Interval history since last seen: Nilam did pretty well through the night, and has been fairly comfortable. Exam GI Other: Abdomen is soft, and only mildly tender in the mid epigastrium. It seems better than 2 days ago. Objective Last Vital Signs Temp 99.1 F 11/16/23 08:30 Pulse 80 11/16/23 08:30 Resp 18 11/16/23 08:30 BP 123/61 11/16/23 08:30 Pulse Ox 97 11/16/23 08:30 Time Spent with Patient Time Spent with Patient: <25 minutes Time was spent: preparing to see the patient(eg.review tests) and counseling the patient
[2023-11-16] MEDS: Furosemide 40 MG TAB PO (17:33)
--- NOTE | 2023-11-16 17:52 | CMPROGNOTE_ITS ---
Date of service: 11/16/23 Time of Service: 11:04 Care Management Progress Note Progress Note Text Progress Note Text: Nilam was out of the hospital most of the day [place] [facility] [place]. CM will follow and continue to assess for discharge needs. Discharge Potential Discharge Needs: Consult Consult Services Needed: Other ([facility] [place]) Anticipated Barriers to Discharge: Treatment delay Patient/Family Education Needs: Review discharge instructions, discuss Ask Me Three Transportation: RCT Plan: Nilam will be discharged back to the [facility] when medically ready. Her insurance will require another prior authorization which will be requested by [facility].She will follow up with her surgeon and plan of care and transport via RCT coordinated by CM. CM will follow and continue to assess for discharge needs. SDOH(Care Management) Screening Will the Patient Participate in the Screening?: Unable to obtain
[2023-11-16 20:07] VITALS: TEMP 38.2
[2023-11-16] MEDS: Polyethylene Glycol 3350 17 GM PACKET PO (20:33)
[2023-11-16 21:06] LABS: HCT 32.5 % (36.0-46.0); HGB 10.3 g/dL (11.2-15.7); MCH 25.8 pg (27.0-33.0); MCHC 31.7 % (32.0-36.0); MCV 81 fL (80-95); MPV 8.4 fL (8.0-11.0); Platelet Count 405 10^3/uL (130-400); RDW 16.4 % (11.7-14.6); RDW-SD 48.5 fL; WBC 23.52 10^3/uL (4.4-10.8)
[2023-11-16 21:20] LABS: ALT 52 U/L (14-59); AST 15 U/L (15-37); Albumin 2.3 g/dL (3.4-5.0); Alkaline Phosphatase 266 U/L (46-116); Anion Gap 9.8 mmol/L (3-11); BUN 15 mg/dL (7-18); Bilirubin, Total 0.6 mg/dL (0.2-1.0); CO2 26.2 mmol/L (21.0-32.0); CREATININE 0.9 mg/dL (0.55-1.02); Calcium 8.8 mg/dL (8.5-10.1); Chloride 96 mmol/L (98-107); Estimated GFR 67.08 (mL/min/1.73m2); Glucose 90 mg/dL (74-106); Lipase 24 U/L (16-77); Potassium 3.7 mmol/L (3.5-5.1); Sodium 132 mmol/L (136-145); Total Protein 8.1 g/dL (6.4-8.2)
[2023-11-16 21:34] LABS: Absolute Lymphocyte Count 1.18 10^3/uL (1.2-3.4); Absolute Monocyte Count 0.47 10^3/uL (0.1-0.8); Absolute Neutrophil Count 21.87 10^3/uL (1.2-6.7); Bands % 1 %; Diff Comment Manual Differential; RBC Morphology Normal
[2023-11-16 21:37] VITALS: TEMP 38.4
[2023-11-16] MEDS: ACETAMINOPHEN 1,000 MG/100 ML BTL 400 MG IVPB (21:37)
[2023-11-16] MEDS: Nystatin POWDER 60 GM JAR TP (21:39)
--- NOTE | 2023-11-16 22:00 | W.PM.PROGNOT ---
Date of Service Date of service: 11/16/23 Time of Service: 22:00 Assessment and Plan Assessment and plan (1) Acute cholecystitis: Status: Acute Assessment and plan: improving, now on meropenem for both her acute cholecystitis and for her ESBL E. coli UTI. (2) Poorly controlled type 2 diabetes mellitus with peripheral neuropathy: Status: Acute Assessment and plan: glucose lower today w/ fasting glucose 149 and this evening even lower at 92 however she had been NPO throughout the day. will hold lantus tonight but continue daily morning dose. continue sliding scale. (3) Unstageable pressure ulcer of right heel: Status: Acute Assessment and plan: This does not look actively infected. Keep covered and offloaded. Followed by [facility] as outpatient. No change (4) CHF (congestive heart failure): Assessment and plan: She is not currently fluid overloaded. Preserved LVEF 50% on 10/16/23 echo. Continue to monitor. Qualifiers: Heart failure type: diastolic Heart failure chronicity: chronic Qualified Code(s): I50.32 - Chronic diastolic (congestive) heart failure (5) Hyponatremia: Status: Acute Assessment and plan: mild, has been present since last admission. (6) Anemia in chronic illness: Status: Acute Assessment and plan: recent transferrin saturation normal, low TIBC c/w chronic disease. Recent B12/folate normal. Continues stable. Subjective Subjective Interval history since last seen: Patient was out of the hospital most of the day. She went [place] [facility] [place] to treat her for her acute cholecystitis. She is seen sitting up in her chair eating her dinner, sipping on tomato soup. She denies acute abdominal pain. Exam Narrative Exam Narrative: Elderly female sitting in her chair eating dinner, no acute distress Lungs: clear Heart: RRR Abdomen: nondistended, soft, mild tenderness in RUQ but no rebound or involuntary guarding. biliary tube in place [place] extremities: no edema Objective Last Vital Signs Temp 38.4 C H 11/16/23 21:37 Pulse 80 11/16/23 08:30 Resp 18 11/16/23 08:30 BP 123/61 11/16/23 08:30 Pulse Ox 97 11/16/23 08:30 Laboratory Results - last 24 hr 11/16/23 20:50 WBC 23.52 H RBC 4.00 Hgb 10.3 L Hct 32.5 L MCV 81 MCH 25.8 L MCHC 31.7 L RDW 16.4 H Plt Count 405 H MPV 8.4 Immature Gran % 0.0 Neutrophils % 92.0 Band Neutrophils % 1 Lymphocytes % 5.0 Monocytes % 2.0 Eosinophils % 0.0 Basophils % 0.0 Nucleated RBC % 0.0 Absolute Neutrophils 21.87 H Absolute Lymphocytes 1.18 L Absolute Monocytes 0.47 Absolute Eosinophils 0.00 Absolute Basophils 0.00 RBC Morphology Normal Sodium 132 L Potassium 3.7 Chloride 96 L Carbon Dioxide 26.2 Anion Gap 9.8 BUN 15 Creatinine 0.9 Est GFR (CKD-EPI 2020) 67.08 Glucose 90 Calcium 8.8 Total Bilirubin 0.6 AST 15 ALT 52 Alkaline Phosphatase 266 H Total Protein 8.1 Albumin 2.3 L Lipase 24 Time Spent with Patient Time Spent with Patient: 25-34 minutes Time was spent: preparing to see the patient(eg.review tests), ordering medications,tests, procedures, referring, communicating with other health post acute care registered nurse, indepentently interpreting results, counseling the patient and care coordination
[2023-11-16 23:44] VITALS: BP 119/65; PULSE 91; RESP 19; TEMP 36.5; O2SAT 92
[2023-11-17] MEDS: Benzonatate 200 MG CAP PO ×3 (04:30→20:02)
[2023-11-17] MEDS: HYDROmorphone 2 MG/ML SYR 0.5 MG IVP (04:30)
[2023-11-17 06:34] LABS: HCT 32.6 % (36.0-46.0); HGB 10.3 g/dL (11.2-15.7); MCH 25.6 pg (27.0-33.0); MCHC 31.6 % (32.0-36.0); MCV 81 fL (80-95); MPV 8.8 fL (8.0-11.0); Platelet Count 387 10^3/uL (130-400); RBC 4.02 10^6/uL (3.93-5.22); RDW 16.4 % (11.7-14.6); RDW-SD 48.5 fL; WBC 17.81 10^3/uL (4.4-10.8)
[2023-11-17] MEDS: Levothyroxine 150 MCG TAB PO (07:34)
[2023-11-17] MEDS: Lactated Ringers 1,000 ML 75 ML IV (07:35)
[2023-11-17 08:01] VITALS: BP 130/81; PULSE 76; RESP 18; TEMP 36.6; O2SAT 93
[2023-11-17] MEDS: Docusate Sodium 100 MG CAP PO ×2 (08:10→08:13)
[2023-11-17] MEDS: Polyethylene Glycol 3350 17 GM PACKET PO ×2 (08:11→20:01)
[2023-11-17] MEDS: Potassium Chloride 20 MEQ TABCR PO (08:12)
[2023-11-17] MEDS: Atorvastatin 40 MG TAB PO (08:12)
[2023-11-17] MEDS: Furosemide 40 MG TAB PO ×2 (08:13→15:58)
[2023-11-17] MEDS: Lactobacillus Acidophilus CAP 1 CAP PO (08:13)
[2023-11-17] MEDS: Magnesium Oxide 400 MG TAB PO (08:13)
[2023-11-17] MEDS: Ferrous Sulfate 325 MG TAB PO (08:13)
[2023-11-17] MEDS: Pantoprazole 40 MG TABCR PO (08:13)
[2023-11-17 09:49] LABS: ALT 42 U/L (14-59); AST 13 U/L (15-37); Albumin 2.2 g/dL (3.4-5.0); Alkaline Phosphatase 255 U/L (46-116); BUN 14 mg/dL (7-18); Bilirubin, Total 0.7 mg/dL (0.2-1.0); Chloride 95 mmol/L (98-107); Estimated GFR 59.12 (mL/min/1.73m2); Glucose 194 mg/dL (74-106); Potassium 3.8 mmol/L (3.5-5.1); Sodium 132 mmol/L (136-145); Total Protein 8.2 g/dL (6.4-8.2)
[2023-11-17] MEDS: Insulin Glargine 300 UNITS/3 ML PEN 22 UNITS SC (10:13)
[2023-11-17] MEDS: Insulin Aspart 300 UNITS/3 ML PEN SC ×2 (10:14→11:37)
[2023-11-17] MEDS: Normal Saline Flush 10 ML SYR IVP ×3 (10:26→20:35)
[2023-11-17] MEDS: Nystatin POWDER 60 GM JAR TP ×3 (10:26→20:01)
--- NOTE | 2023-11-17 10:51 | SP_ITS ---
Date of service: 11/17/23 Time of Service: 10:51 Subjective Clinical (Bedside) Swallow Evaluation - Inpatient Speech Language Pathology Referred by: Harvey Pillai Start time: 10:15 End time: 10:50 Total patient contact: 35min Referral Type: Routine Swallow Consult Precautions: Contact, Fall, DNR/DNI Reason for Referral/HPI: Nilam is a 73 y/o F with DM2, previous CVA, CHF and recent hx diabetic ketoacidosis. Now hospitalized for acute cholecystitis and having returned last night from down and back cholecystostomy tube placement procedure at [facility]. Nilam was evalutaed by YARN SKEINS EXAMINER during previous hospitalization and placed on soft/bite size and thin liquids diet with aspiration precautions in place. During hospitalization, her swallow function did appear to fluctuate widely along with lethargy. Throughout this admission, nursing has noted difficulty and persistent coughing while swallowing pills and liquids. YARN SKEINS EXAMINER was unable to evaluate patient prior to this date due to NPO status in anticipation of biliary drain procedure. YARN SKEINS EXAMINER IMPRESSIONS & RECOMMENDATIONS: Patient appears with mild-moderate oropharyngeal dysphagia in setting of prior CVA and likely exacerbated by poor medical status at this time. Per discussion with nursing and patient report, she does demonstrate baseline wet cough and lung crackles at this time, thus although she did present with s/sx aspiration during exam, this is somewhat difficult to differentiate from respiratory status. She appears to similarly tolerate thick and thin liquids with occasional delayed cough vs baseline wet cough. She demonstrates reduced mastication abilities in setting of edentulousness with ill-fitting dentures. Again no focal weakness was noted on oral-motor mechanism exam, but some global oral-motor weakness and discoordination was noted. Volitional swallow was timely to palpation but suspect reduced laryngeal movement. Patient will benefit from diet modification to reduce work of breathing and in light of poor mastication. Additional precautions are listed in recommendations below. FURTHER INPATIENT YARN SKEINS EXAMINER SERVICES: Recommend MBSS given repeat YARN SKEINS EXAMINER consults, as long as no GI concerns for tolerating barium at this time. YARN SKEINS EXAMINER will continue to follow while on unit until goals met or no further progress to be made. DISCHARGE RECOMMENDATIONS: Anticipate no further YARN SKEINS EXAMINER services indicated after discharge, however, if unable to complete MBSS during this hospitalization, please place outpatient MBSS orders. Diet Recommendations: ? SOLIDS: 6-Soft & Bite-Sized Solids - Extra sauces & gravy No mixed textures LIQUIDS: 0-Thin Liquids MEDICATIONS: Whole With 4-Purees Alter medications only as advised by MD or Pharmacist RISK MANAGEMENT: Level of Assistance/Supervision: Provide set-up assist with initial verbal reminders for aspiration precautions as below Intermittent supervision for all PO intake Positioning and environment: PO intake only when awake/alert? Reduce auditory and/or visual distractions when eating [place] upright for all PO intake. Oral hygiene BID/2x per day Using friction with toothbrush on all oral structures as tolerated Remove and clean dentures daily Strategies/Adaptations/Assistive Equipment: Small sips Small bites Slow rate of intake Reflux Precautions: Maintain fully upright position at least 30 minutes after meals Avoid meals/snacks 2-3 hours prior to reclining/sleeping Sleep with head of bed elevated to reduce likelihood of nocturnal reflux Education Provided to: Nursing Patient Topics Addressed: anatomy/physiology of swallowing mechanism definition and impacts of aspiration impact of current diagnoses on swallow function role of YARN SKEINS EXAMINER in management of swallow disorders overt s/sx to monitor for re: potential aspiration of food / liquids relationship between respiratory function and deglutition rationale and instruction for additional risk management strategies as below SUBJECTIVE: Patient received: alert/awake. Agreeable to evaluation. Pain Reported 7 when coughing Baseline Swallow Function: Patient reports some difficulty with swallowing (occasional coughing) at baseline since CVA. She feels her swallow is at baseline at this time but reports reduced appetite in recent days. She eats soft/bite size foods at baseline due to difficulty biting/chewing tough foods using dentures. OBJECTIVE Patient positioning: As upright as possible using HOB/bed tilt controls Oral care: Reported recently completed Respiratory status: Room air tolerates well at baseline, with occasional wet cough per nursing/patient report. Appears with slight increase in WOB during mastication/self-feeding. Oral Mechanism Examination: Dentition: Edentulous Full dentures, but not wearing lower dentures at time of exam because of poor fit. Oral mucosa: Dry but clean ? Cranial Nerve Assessment: Mild global weakness, no focal deficits or asymmetries noted PO Intake: Trials Assessed: IDDSI 0 Thin Liquids IDDSI 2 Mildly Thick Liquids IDDSI 5 Minced/Moist (cottage cheese) IDDSI 6 Soft & Bite Size Solid (fruit cocktail with juice drained) IDDSI 7 Regular Solid (fig bland) Oral Phase Findings: Difficulty chewing Open mouth posture while chewing (?SOB) Pharyngeal Phase Findings: Suspect Reduced hyolaryngeal elevation/excursion Intermittent cough after swallow for thin and thick liquids Esophageal Phase Findings: ? No observed or reported symptoms at bedside ? [place] Swallow Protocol Results: FAIL ? Unable to complete without stopping/starting, Coughing after short delay Goals: Alf Goals: Patient will remain free from aspiration-related illness, malnutrition, and dehydration. Short Term Goals: Patient will tolerate Small/Bite Size Diet and Thin liquids per nursing report across 2 meals. Patient will participate in Modified Barium Swallow Study.
[2023-11-17] MEDS: MEROPENEM 1 GM in Normal Saline 100 ML IVPB ×2 (12:46→20:01)
--- NOTE | 2023-11-17 12:58 | PGE_ITS ---
Date of Service Date of service: 11/17/23 Time of Service: 12:58 Assessment and Plan Assessment and plan (1) Acute cholecystitis: Status: Acute Assessment and plan: improving, now on meropenem for both her acute cholecystitis and for her ESBL E. coli UTI. (2) Poorly controlled type 2 diabetes mellitus with peripheral neuropathy: Status: Acute Assessment and plan: glucose rising now that she is eating solids again. I have adjusted her Lantus to 30 units qam and 15 units HS and adjusted her meal coverage at 1:10 ratio along w/ moderate dose sliding scale Novolog. (3) Unstageable pressure ulcer of right heel: Status: Acute Assessment and plan: This does not look actively infected. Keep covered and offloaded. Followed by [facility] as outpatient. No change (4) CHF (congestive heart failure): Assessment and plan: I think she is a little volume overload which may be contributing to her leg edema and her cough. I will check CXR today and give her extra dose of lasix 40 mg IV this afternoon (she has been maintained on her home dose of lasix 40 mg po bid; we may need to addd some spironolactone and adjust her oral dose. I have put in order for daily weights which we have not been doing. Her weight on admission was 101.6 kg. I will also check BNP from this morning labs. NATURALIZATION EXAMINER does not feel that her cough is related to her dysphagia but Yoana Mei, NATURALIZATION EXAMINER, did request we perform a modified barium swallow while the patient is here as she has had issues w/ dysphagia in the past. Qualifiers: Heart failure type: diastolic Heart failure chronicity: chronic Qualified Code(s): I50.32 - Chronic diastolic (congestive) heart failure (5) Hyponatremia: Status: Acute Assessment and plan: may be related to CHF. will diurese her and monitor her electrolytes (6) Anemia in chronic illness: Status: Acute Assessment and plan: recent transferrin saturation normal, low TIBC c/w chronic disease. Recent B12/folate normal. Continues stable. Subjective Subjective Interval history since last seen: Patient complains of nonproductive cough and epigastric abdominal wall pain w/ coughing. Appetite is improving and overall she says she feels better except for the cough. Exam Narrative Exam Narrative: Nilam is sitting up in her chair eating lunch, no acute distress until she begins coughing. She is alert and oriented Lungs: bibasilar rales, no wheezing Heart: RRR Abdomen: slightly distended, she has umbilical hernia, she has biliary tube in RUQ, she has tenderness over epigastrium w/ palpation, no rebound tenderness Lower extermities: 1+ pitting edema over feet, ankles and lower legs. Objective Last Vital Signs Temp 36.6 C 11/17/23 08:01 Pulse 76 11/17/23 08:01 Resp 18 11/17/23 08:01 BP 130/81 11/17/23 08:01 Pulse Ox 93 11/17/23 08:01 Laboratory Results - last 24 hr 11/16/23 11/17/23 11/17/23 20:50 06:14 08:55 WBC 23.52 H 17.81 H RBC 4.00 4.02 Hgb 10.3 L 10.3 L Hct 32.5 L 32.6 L MCV 81 81 MCH 25.8 L 25.6 L MCHC 31.7 L 31.6 L RDW 16.4 H 16.4 H Plt Count 405 H 387 MPV 8.4 8.8 Immature Gran % 0.0 Neutrophils % 92.0 Band Neutrophils % 1 Lymphocytes % 5.0 Monocytes % 2.0 Eosinophils % 0.0 Basophils % 0.0 Nucleated RBC % 0.0 Absolute Neutrophils 21.87 H Absolute Lymphocytes 1.18 L Absolute Monocytes 0.47 Absolute Eosinophils 0.00 Absolute Basophils 0.00 RBC Morphology Normal Sodium 132 L 132 L Potassium 3.7 3.8 Chloride 96 L 95 L Carbon Dioxide 26.2 28.0 Anion Gap 9.8 9.0 BUN 15 14 Creatinine 0.9 1.0 Est GFR (CKD-EPI 2020) 67.08 59.12 Glucose 90 194 H Calcium 8.8 9.0 Total Bilirubin 0.6 0.7 AST 15 13 L ALT 52 42 Alkaline Phosphatase 266 H 255 H Total Protein 8.1 8.2 Albumin 2.3 L 2.2 L Lipase 24 Time Spent with Patient Time Spent with Patient: 25-34 minutes Time was spent: preparing to see the patient(eg.review tests), ordering medications,tests, procedures, referring, communicating with other health small animal caretaker (nursing, CM and NATURALIZATION EXAMINER), indepentently interpreting results, counseling the patient and care coordination
--- NOTE | 2023-11-17 13:00 | DI.RAD_ITS ---
Exam(s) XR PORTABLE CHEST AP EXAM: XR PORTABLE CHEST AP CLINICAL HISTORY: cough and dyspnea TECHNIQUE: 2D digital imaging was performed. COMPARISON: CR,XR XR PORTABLE CHEST AP from 11/11/2023 FINDINGS: Exam is limited by patient position with rotation as well as under penetration LUNGS: Clear where visualized. Only the left upper lobe could be visualized, the remainder being obs cured by the cardiac silhouette. No pleural abnormality seen. Left lung base partially obscured. HEART: Enlarged. AORTA: Normal diameter. BONES: Degenerative changes in the thoracic spine. Soft tissues: Unremarkable. IMPRESSION: Limited exam. No acute findings. DATA REPOSITORY: RADIATION DOSE DELIVERED:
--- NOTE | 2023-11-17 13:42 | CHAPLAIN ---
Nilam was up in the recliner when I visited. She said she's not having a good day. She went to [facility] yesterday to have drain put in, and today she's uncomfortable and has abdominal pain especially when she coughs, which can be frequently, she explained. Nilam is waiting to go back to the [facility], but said she's not sure when that will be. She has a private room there and hopes they will hold it for her. She hasn't been at the [facility] very long. She was at another facility in [place] and said her daughter, who lives in [place], picked her up there and they took [address] to [place], with a stop in [place]. Nilam is originally from [place]. She said she left there, went to live with a granddaughter in [place], then when finances became difficult, she was moved out of the house and into a facility. Nilam has been here a week. Her daughter visited last weekend, and Nilam hopes she'll stop in today. She was appreciative of the company and the prayer shawl.
[2023-11-17 13:53] LABS: Lab Add On Test DONE
[2023-11-17 14:17] LABS: NT-proBNP 892 pg/mL (<300)
[2023-11-17] MEDS: Furosemide 40 MG/4 ML VIAL IVP (14:31)
--- NOTE | 2023-11-17 15:03 | PDOC.CMPRO ---
Date of service: 11/17/23 Time of Service: 15:03 Care Management Progress Note Progress Note Text Progress Note Text: Nilam remains inpatient, CM requested prior authorization completion by the [facility]-and updated surgeon and hospitalist of possible barrier to discharge. CM continues to follow. Discharge Potential Discharge Needs: Consult Consult Services Needed: Speech (Barrium swallow requested ) Anticipated Barriers to Discharge: Other (Prior authorization ) Patient/Family Education Needs: Review discharge instructions, discuss Ask Me Three Transportation: RCT RCT Transportation: Wheel chair van Plan: Nilam will return to the [facility] once her insurance has approved prior authorization and is medically cleared. She will follow up with her surgeon and plan of care and transport via RCT coordinated by CM. CM will follow and continue to assess for discharge needs. SDOH(Care Management) Screening Will the Patient Participate in the Screening?: Unable to obtain
[2023-11-17] MEDS: guaiFENesin/D-METHORPHAN HB 5 ML CUP 10 ML PO (15:14)
[2023-11-17 15:44] VITALS: BP 127/66; PULSE 82; RESP 17; TEMP 36.3; O2SAT 97
[2023-11-17 20:14] VITALS: BP 121/57; PULSE 88; RESP 17; TEMP 36.6; O2SAT 94
--- NOTE | 2023-11-17 22:43 | PGE_ITS ---
Date of Service Date of service: 11/17/23 Time of Service: 18:00 Assessment and Plan Assessment and plan (1) Diabetic foot infection: Status: Acute Assessment and plan: Patient will need to follow-up with podiatry as an outpatient for further care (2) Poorly controlled type 2 diabetes mellitus with peripheral neuropathy: Status: Acute (3) Obesity: Status: Chronic (4) Hyponatremia: Status: Acute (5) Acute cholecystitis: Status: Acute Assessment and plan: Patient was admitted on 11/10 with acute cholecystitis. She was determined to be a poor surgical candidate and a cholecystotomy tube was placed at [facility] on 52 -Duration of antibiotics to be determined by hospitalist Drain care and follow-up will be handled by general surgery. She is tolerating diet. She has moved her bowels. Her pain is well-controlled. There is no signs of pneumonia or DVT. She does have a UTI with resistant organisms she is being treated for. There are can swallow some swallowing concerns and speech will be doing a MBSS tomorrow From a surgical standpoint she is stable for DC. Discharge when she is stable from medical standpoint -She also still has a 17,000 white count. Hopefully this is from the UTI and now that we have the culture and the antibiotics adjusted this will trend down. -Unknown if bile was sent at the time of drain placement. Will send out for cultures as well This document was created with voice activated software and may contain errors. 20 mins spent in direct pt care and 20 in non face to face time (6) Bacteriuria, asymptomatic: Status: Acute (7) Anemia in chronic illness: Status: Acute (8) Low serum iron: Status: Acute (9) Unstageable pressure ulcer of right heel: Status: Acute (10) Lumbar back pain with radiculopathy affecting right lower extremity: Status: Acute (11) Ambulatory dysfunction: Status: Acute (12) Weakness: Status: Acute (13) Hypothyroid: (14) CHF (congestive heart failure): Qualifiers: Heart failure type: diastolic Heart failure chronicity: chronic Qualified Code(s): I50.32 - Chronic diastolic (congestive) heart failure Subjective Subjective Interval history since last seen: Pt is doing well. no headaches. No CP or SOB. no productive cough. no dysuria. no leg pain or swelling. She is tolerating regular diet. She says she has known pain except when she coughs or sneezes. The drainage tube site is clean dry and intact. She has a bile bag on her right leg and screening clear yellow bile. Patient is not the best historian. I did review medicines notes. There is some concern regarding her swallowing. She will be having an MBSS with speech tomorrow. She does have the EVS in her urine. I will need to discuss with [facility] if and how long she needs to be on meropenem. From a surgical standpoint she can be discharged tomorrow. However this is pending if her medical conditions are stable Exam Narrative Exam Narrative: PHYSICAL EXAM GENERAL APPEARANCE: Alert, healthy appearance, oriented, x 3,? in no acute distress She has lipsmacking and other repetitive facial gestures that may be related to previous stroke. HEAD, EYES, EARS, NECK, THROAT: Head is normocephalic, pupils equal, round, reactive to light and accommodation, ocular movement intact, sclera clear and no jaundice. ?Dentition poor to none LUNGS: normal respiration/normal chest excursion. ?Clear to auscultation bilaterally. ?No wheeze. ?HEART: Regular rate and rhythm. no murmurs EXTREMITY: Chronic neuropathy due to her diabetes. I did not visualize her diabetic foot ulcer.? ABDOMEN: soft and non-tender to palpation.? Normal bowel sounds.? Drainage tube site is clean dry and intact. She is draining yellow bile. Objective Last Vital Signs Temp 36.6 C 11/17/23 20:14 Pulse 88 11/17/23 20:14 Resp 17 11/17/23 20:14 BP 121/57 L 11/17/23 20:14 Pulse Ox 94 11/17/23 20:14 Laboratory Results - last 24 hr 11/17/23 11/17/23 06:14 08:55 WBC 17.81 H RBC 4.02 Hgb 10.3 L Hct 32.6 L MCV 81 MCH 25.6 L MCHC 31.6 L RDW 16.4 H Plt Count 387 MPV 8.8 Sodium 132 L Potassium 3.8 Chloride 95 L Carbon Dioxide 28.0 Anion Gap 9.0 BUN 14 Creatinine 1.0 Est GFR (CKD-EPI 2020) 59.12 Glucose 194 H Calcium 9.0 Total Bilirubin 0.7 AST 13 L ALT 42 Alkaline Phosphatase 255 H NT-Pro-B Natriuret Pep 892 H Total Protein 8.2 Albumin 2.2 L Add-On Test Request DONE Time Spent with Patient Time Spent with Patient: 35-49 minutes Time was spent: preparing to see the patient(eg.review tests), obtaining and/or reviewing separately otained hiistory, ordering medications,tests, procedures, referring, communicating with other health clinical manager home care, indepentently interpreting results, counseling the patient and care coordination
[2023-11-18] MEDS: HYDROmorphone 2 MG/ML SYR 0.5 MG IVP (02:45)
[2023-11-18] MEDS: Normal Saline Flush 10 ML SYR IVP ×3 (02:46→21:08)
[2023-11-18] MEDS: Levothyroxine 150 MCG TAB PO (05:03)
[2023-11-18] MEDS: MEROPENEM 1 GM in Normal Saline 100 ML IVPB ×3 (05:04→19:55)
[2023-11-18 08:12] LABS: Abs Immature Grans 0.13 10^3/uL (0.0-0.06); Absolute Basophil Count 0.01 10^3/uL (0.0-0.2); Absolute Eosinophil Count 0.21 10^3/uL (0.0-0.7); Absolute Lymphocyte Count 1.45 10^3/uL (1.2-3.4); Absolute Neutrophil Count 8.72 10^3/uL (1.2-6.7); Basophils % 0.1 %; Eosinophils % 1.8 %; HCT 30.7 % (36.0-46.0); HGB 9.6 g/dL (11.2-15.7); Immature Grans % 1.1 %; Lymphocytes % 12.4 %; MCH 25.3 pg (27.0-33.0); MCHC 31.3 % (32.0-36.0); MCV 81 fL (80-95); MPV 8.8 fL (8.0-11.0); Monocytes % 9.9 %; Neutrophils % 74.7 %; Platelet Count 459 10^3/uL (130-400); RDW-SD 47.1 fL; WBC 11.67 10^3/uL (4.4-10.8)
[2023-11-18 08:21] LABS: Absolute Monocyte Count 1.16 10^3/uL (0.1-0.8)
[2023-11-18 08:28] LABS: ALT 35 U/L (14-59); AST 10 U/L (15-37); Albumin 2.1 g/dL (3.4-5.0); Alkaline Phosphatase 220 U/L (46-116); Anion Gap 9.3 mmol/L (3-11); BUN 13 mg/dL (7-18); Bilirubin, Total 0.5 mg/dL (0.2-1.0); CO2 28.7 mmol/L (21.0-32.0); CREATININE 1.1 mg/dL (0.55-1.02); Calcium 8.7 mg/dL (8.5-10.1); Chloride 92 mmol/L (98-107); Estimated GFR 52.73 (mL/min/1.73m2); Glucose 232 mg/dL (74-106); Potassium 3.9 mmol/L (3.5-5.1); Sodium 130 mmol/L (136-145)
[2023-11-18 08:38] VITALS: BP 125/68; PULSE 79; RESP 18; TEMP 36.5; O2SAT 94
--- NOTE | 2023-11-18 08:50 | W.PM.DS.N ---
Date of service: 11/17/23 Time of Service: 15:56 DS: Diagnosis Discharge Diagnosis (1) Diabetic foot infection: Status: Acute (2) Poorly controlled type 2 diabetes mellitus with peripheral neuropathy: Status: Acute (3) Obesity: Status: Chronic (4) Hyponatremia: Status: Acute (5) Acute cholecystitis: Status: Acute (6) Bacteriuria, asymptomatic: Status: Acute (7) Anemia in chronic illness: Status: Acute (8) Low serum iron: Status: Acute (9) Unstageable pressure ulcer of right heel: Status: Acute (10) Lumbar back pain with radiculopathy affecting right lower extremity: Status: Acute (11) Ambulatory dysfunction: Status: Acute (12) Weakness: Status: Acute (13) Hypothyroid: (14) CHF (congestive heart failure): Discharge Plan Disposition Patient Disposition[facility] Condition: Good Discharge Details Reason For Visit: Gallstone Pancreatitis Admit Date/Time: 11/11/23 10:01 Admit Provider: Anish Taylor Attending Provider: Anish Taylor Primary Care Provider: Unknown,Unknown Hospital Course Hospital Course: Patient initially presented to the emergency department with complaints of worsening abdominal pain for 1 to 2 days and staff at the [facility] where she resides today but she has not been acting herself. Ultimately, she was determined to have acute cholecystitis on HIDA scan, however general surgery was hesitant to perform cholecystectomy given patient's multiple comorbid conditions. She was initially treated with Zosyn from 11/10-11/13 and changed to Unasyn on 11/13, and was changed to meropenem on 11/14. On the day of discharge 11/21/2023, she had completed course of Merrem of 7 days which ultimately cultures from biliary fluid obtained during IR drainage and cholecystostomy tube placed on 11/16/2023 at [facility] showed ESBL. However, while patient was unable to have cholecystectomy for complete source control, IR drain and cholecystostomy tube placement on 11/16/2023 but being that patient had 6 days of appropriate IV antibiotic therapy. Given that patient also has had significant clinical improvement it was determined she was stable for discharge, which she will with close follow-up with her PCP, and with general surgery regarding cholecystostomy tube replacement and possible outpatient cholecystectomy. Home Meds and New Rx's Prescriptions: New spironolactone 25 mg Tablet 25 mg PO DAILY Qty: 90 0RF Continued MediHoney (honey) 80 % gel 1 applic topical DAILY Qty: 44 0RF benzonatate 200 mg capsule 200 mg PO Q8H PRN Rx Instructions: 200 mg orally PRN; atorvastatin 40 mg tablet 40 mg PO DAILY trazodone 50 mg tablet 50 mg PO QHS PRN acetaminophen 500 mg Tablet 1,000 mg PO TID MDD 3000 mg Qty: 60 0RF docusate sodium [Colace] 100 mg Capsule 100 mg PO DAILY Qty: 30 0RF ferrous sulfate 325 mg (65 mg iron) Tablet 325 mg PO DAILY Qty: 30 0RF pantoprazole 40 mg Tablet,Delayed Release (Dr/Ec) 40 mg PO DAILY@0730 Qty: 10 0RF metformin 500 mg tablet 500 mg PO BIDWMEAL Qty: 60 0RF levothyroxine 150 mcg tablet 150 mcg PO DAILY Bio-K plus 50 billion cell capsule,delayed release(DR/EC) 1 cap PO DAILY Qty: 10 0RF insulin glargine [Lantus Solostar U-100 Insulin] 100 unit/mL (3 mL) Insulin Pen 15 unit subcut QAM Qty: 15 0RF magnesium oxide 400 mg (241.3 mg magnesium) Tablet 400 mg PO DAILY Qty: 30 0RF potassium chloride [Klor-Con M20] 20 mEq Tablet,Er Particles/Crystals 20 meq PO DAILY Qty: 30 0RF insulin glargine [Lantus Solostar U-100 Insulin] 100 unit/mL (3 mL) Insulin Pen 25 unit subcut HS Qty: 15 0RF furosemide 40 mg Tablet 40 mg PO BID@0830,1600 Qty: 60 0RF Discontinued linezolid 600 mg Tablet 600 mg PO BID Qty: 10 0RF No Action (DME) lancets [FreeStyle Lancets] 28 gauge misc See Rx Instructions .Route Qty: 100 0RF Rx Instructions: As directed (DME) blood-glucose meter [FreeStyle Lite Meter] Kit See Rx Instructions .Route Qty: 1 0RF Rx Instructions: As directed (DME) FreeStyle Lite Strips Strip See Rx Instructions .Route Qty: 100 0RF Rx Instructions: As directed Discharge Instructions Additional Instructions: - Change dressing on drainage tube daily and when soiled -Wash site with soap and water or wound cleanser -Assess for redness/drainage/bleeding daily. -Flush biliary drain with sterile saline 10 cc twice a day -Call surgical office if drainage stops. -Patient is not a candidate for surgery and will have drain in place lifelong. -Cover to shower -If drain gets pulled out, patient needs to immediately go to the ER. Referrals: Yoana Hanks, [OSTEOPATHIC DOCTOR] - (Please call and set up the appointment per the office. ) Activity:: Activity as Tolerated Equipment/Supplies:: No Equipment Needed Diet:: As Tolerated Discharge Orders Discharge Orders: Discharge Order (Routine); Ordered 11/21/23 Ordered By: James Reed Discharge Data Discharge Date/Time-TO BE ENTERED AT DEPARTURE: 11/21/23 12:14 DS: Summary Time Spent with Patient providing and/or coordinating discharge services: Less than 30 minutes Status at Discharge Functional status at discharge: bed bound Overall status at discharge: patient is not back to baseline Mental Status: other Speech and Movement: other Mood: other Affect: other Quality:SDOH Health Related Social Needs: No Data to Display Exam Psych Mental Status: other Speech and Movement: other Mood: other Affect: other DS: Data Vitals/I&O Vitals and I&O: Vital Signs Temperature 36.5 C 11/18/23 08:38 Temperature Source Tympanic 11/18/23 08:38 Pulse 79 11/18/23 08:38 Pulse Rhythm Irregular 11/17/23 21:44 Respiratory Rate 18 11/18/23 08:38 Respiratory Effort Normal 11/17/23 21:44 Respiratory Depth Shallow 11/17/23 21:44 Respiratory Pattern Normal 11/17/23 21:44 Blood Pressure 125/68 11/18/23 08:38 Blood Pressure Position Supine 11/11/23 07:01 Pulse Oximetry 94 11/18/23 08:38 Oxygen Delivery Method Room Air 11/18/23 08:38 Oxygen Flow Rate 0 11/18/23 08:38 Pain Level 4 11/18/23 08:38 Comment RLQ pain 11/13/23 07:27 Intake & Output 11/17/23 11/17/23 11/18/23 11:59 23:59 11:59 Intake Total 1330 / 2530 1200 / 2530 110 / 110 Output Total 375 / 0 165 / 0 100 / 100 Balance 955 / 480 -450 / 480 Intake: IV 1030 / 2230 1200 / 2230 100 / 100 Oral 300 / 300 Injectate Right Upper Abdomen Output: Drainage 25 / 50 100 / 100 Right Upper Abdomen 25 / 50 100 / 100 Urine 350 / 2000 1650 / 2000 Other: Urine Color Light Lexis Yellow Yellow Urine Appearance Clear Clear Comment beds was soaked bed was soaked Voiding Methods Incontinent Diaper Incontinent Data Completed and Pending Labs on day of discharge: Labs from last 24 hours 11/18/23 11/17/23 06:20 08:55 WBC 11.67 H RBC 3.80 L Hgb 9.6 L Hct 30.7 L MCV 81 MCH 25.3 L MCHC 31.3 L RDW 16.0 H Plt Count 459 H MPV 8.8 Immature Gran % 1.1 Neutrophils % 74.7 Lymphocytes % 12.4 Monocytes % 9.9 Eosinophils % 1.8 Basophils % 0.1 Nucleated RBC % 0.0 Absolute Neutrophils 8.72 H Absolute Lymphocytes 1.45 Absolute Monocytes 1.16 H Absolute Eosinophils 0.21 Absolute Basophils 0.01 Sodium 130 L 132 L Potassium 3.9 3.8 Chloride 92 L 95 L Carbon Dioxide 28.7 28.0 Anion Gap 9.3 9.0 BUN 13 14 Creatinine 1.1 H 1.0 Est GFR (CKD-EPI 2020) 52.73 59.12 Glucose 232 H 194 H Calcium 8.7 9.0 Total Bilirubin 0.5 0.7 AST 10 L 13 L ALT 35 42 Alkaline Phosphatase 220 H 255 H NT-Pro-B Natriuret Pep 892 H Total Protein 8.0 8.2 Albumin 2.1 L 2.2 L Add-On Test Request DONE 11/18/23 05:55 Bile Body Fluid Culture - Pending 11/18/23 05:55 Bile Gram Stain - Pending Preliminary micro results at discharge 11/18/23 05:55 Body Fluid Culture - Pending Bile Gram Stain - Pending [facility] All Active Problems (Updated 11/21/23 @ 10:20 by James Reed MD) Constipation (Acute) Cough (Acute) Bacteriuria, asymptomatic (Acute) Pancreatitis (Chronic) Anemia in chronic illness (Acute) Hyponatremia (Acute) Acute cholecystitis (Acute) Transaminitis (Acute) Obesity (Chronic) Unstageable pressure ulcer of right heel (Acute) Poorly controlled type 2 diabetes mellitus with peripheral neuropathy (Acute) Diabetic foot infection (Acute) Low serum iron (Acute) Lumbar back pain with radiculopathy affecting right lower extremity (Acute) Ambulatory dysfunction (Acute) Weakness (Acute) Medical History Hypothyroid Gram-negative bacteremia Pleural effusion, left Hyperglycemia due to type 2 diabetes mellitus Urinary tract infection Palliative care patient Physician orders for life-sustaining treatment (POLST) form indicates patient wish for [id number] status ACP (advance care planning) Stroke Diabetes CHF (congestive heart failure) Surgical History History of ERCP S/P tonsillectomy Social History Smoking/Tobacco Use Status: Never Smoking risk assessment performed?: Yes Alcohol Intake: never Drug use: Never Substance use type: does not use Housing: apartment What is your relationship status?: Panel score (0-1 are the most socially isolated patients): 0 Time Spent with Patient Time Spent with Patient: <45 minutes Time was spent: preparing to see the patient(eg.review tests), ordering medications,tests, procedures, referring, communicating with other health manager critical care and care coordination
--- NOTE | 2023-11-18 08:54 | PGE_ITS ---
Date of Service Date of service: 11/18/23 Time of Service: 08:54 Assessment and Plan Assessment and plan (1) Poorly controlled type 2 diabetes mellitus with peripheral neuropathy: Status: Acute (2) Obesity: Status: Chronic (3) Acute cholecystitis: Status: Acute (4) Bacteriuria, asymptomatic: Status: Acute (5) Anemia in chronic illness: Status: Acute (6) Unstageable pressure ulcer of right heel: Status: Acute (7) Lumbar back pain with radiculopathy affecting right lower extremity: Status: Acute (8) Ambulatory dysfunction: Status: Acute (9) Weakness: Status: Acute (10) Hypothyroid: (11) CHF (congestive heart failure): Qualifiers: Heart failure chronicity: chronic Heart failure type: diastolic Qualified Code(s): I50.32 - Chronic diastolic (congestive) heart failure (12) Urinary tract infection: Qualifiers: Hematuria presence: without hematuria Urinary tract infection type: acute cystitis Qualified Code(s): N30.00 - Acute cystitis without hematuria (13) Stroke: Subjective Subjective Interval history since last seen: Patient is tolerating a regular diet. She is moving her bowels with no diarrhea. The drain tube site is clean dry and intact. Is functioning well and putting out clear yellow bile. Patient is not having any pain unless she inadvertently pulls on the catheter. Patient is nonambulatory essentially due to weakness. Given her multiple medical comorbidities, overall weakness and debilitation, low protein status, and uncontrolled diabetes, she is extremely poor surgical candidate. If she continues to have problems then we would refer her to [facility] or [facility] for consideration of surgery. But otherwise as long as she remains symptom-free and is able to eat and has minimal pain or complications from the tube, I would say a to continue that cholecystotomy tube. She has an acute UTI. She has not had a multidrug-resistant organism and the hospitalist service would like to keep her in the hospital and IV antibiotics. Discharge orders for tube care are written. I did discuss the case with Dr. Deal. If there is any questions or concerns please contact us for further evaluation .[email or web address] Objective Last Vital Signs Temp 36.5 C 11/18/23 08:38 Pulse 79 11/18/23 08:38 Resp 18 11/18/23 08:38 BP 125/68 11/18/23 08:38 Pulse Ox 94 11/18/23 08:38 Laboratory Results - last 24 hr 11/17/23 11/18/23 08:55 06:20 WBC 11.67 H RBC 3.80 L Hgb 9.6 L Hct 30.7 L MCV 81 MCH 25.3 L MCHC 31.3 L RDW 16.0 H Plt Count 459 H MPV 8.8 Immature Gran % 1.1 Neutrophils % 74.7 Lymphocytes % 12.4 Monocytes % 9.9 Eosinophils % 1.8 Basophils % 0.1 Nucleated RBC % 0.0 Absolute Neutrophils 8.72 H Absolute Lymphocytes 1.45 Absolute Monocytes 1.16 H Absolute Eosinophils 0.21 Absolute Basophils 0.01 Sodium 132 L 130 L Potassium 3.8 3.9 Chloride 95 L 92 L Carbon Dioxide 28.0 28.7 Anion Gap 9.0 9.3 BUN 14 13 Creatinine 1.0 1.1 H Est GFR (CKD-EPI 2020) 59.12 52.73 Glucose 194 H 232 H Calcium 9.0 8.7 Total Bilirubin 0.7 0.5 AST 13 L 10 L ALT 42 35 Alkaline Phosphatase 255 H 220 H NT-Pro-B Natriuret Pep 892 H Total Protein 8.2 8.0 Albumin 2.2 L 2.1 L Add-On Test Request DONE Time Spent with Patient Time Spent with Patient: 25-34 minutes Time was spent: preparing to see the patient(eg.review tests), obtaining and/or reviewing separately otained hiistory, ordering medications,tests, procedures, referring, communicating with other health home care specialist, indepentently interpreting results, counseling the patient and care coordination
--- NOTE | 2023-11-18 09:30 | DI.RAD_ITS ---
Exam(s) RF MODIFIED SPEECH BA SWALLOW TECHNIQUE: Modified barium swallow was performed in conjunction with speech pathology. CONTRAST MATERIAL: Multiple consistencies of oral barium contrast were administered. COMPARISON: CR XR PORTABLE CHEST AP from 11/17/2023 FINDINGS: Note that this is not a dedicated esophagram, distal esophagus not evaluated. There is no evidence of aspiration or penetration with any consistency. Speech pathology report to follow. IMPRESSION: No evidence of aspiration or penetration. RADIATION DOSE DELIVERED: yvonne Shin=5.41 mGy
[2023-11-18] MEDS: Barium Sulfate Oral Paste 40% W/V 230 ML TUBE PO (09:33)
[2023-11-18] MEDS: Barium Sulfate 81% w/w for Oral Suspension 148 GM BTL PO (09:34)
[2023-11-18] MEDS: Barium Sulfate 40% W/V 240 ML BTL PO (09:34)
[2023-11-18] MEDS: Lactobacillus Acidophilus CAP 1 CAP PO (10:02)
[2023-11-18] MEDS: Potassium Chloride 20 MEQ TABCR PO (10:03)
[2023-11-18] MEDS: Furosemide 40 MG TAB PO ×2 (10:03→15:51)
[2023-11-18] MEDS: Ferrous Sulfate 325 MG TAB PO (10:03)
[2023-11-18] MEDS: Docusate Sodium 100 MG CAP PO (10:03)
[2023-11-18] MEDS: Atorvastatin 40 MG TAB PO (10:04)
[2023-11-18] MEDS: Pantoprazole 40 MG TABCR PO (10:04)
[2023-11-18] MEDS: Magnesium Oxide 400 MG TAB PO (10:04)
[2023-11-18] MEDS: Benzonatate 200 MG CAP PO ×3 (10:04→19:56)
[2023-11-18] MEDS: Polyethylene Glycol 3350 17 GM PACKET PO ×2 (10:06→19:57)
--- NOTE | 2023-11-18 10:07 | ST.MBS_ITS ---
Date of Service Date of service: 11/18/23 Time of Service: 09:00 Modified Barium Swallow Study Findings: Video fluoroscopic Swallowing Evaluation (VFSE) / Modified Barium Swallow Study (MBSS) Speech Language Pathology Report Patient referred for VFSE/MBSS from Dr. Taylor given wet cough with meals. HPI & Patient report of function: Patient is a 73 year old female with hx DM2, prior CVA 3 years ago, CHF, recent dx diabetic ketoacidosis who was adm to [facility] for acute cholecystitis s/p cholecystostomy tube placement at [facility]. MBSS recommended in light of baseline wet cough, lung crackles, and question of aspiration with PO. Her baseline diet is softer/cut up food due to difficulty biting and chewing with dentures. She denies dysphagia symptoms. Previous Imaging: No prior MBSS at this facility. Patient suspects she had this study done soon after her CVA x 3 years ago IMPRESSIONS: MBSS findings reveal mild-moderate oral phase dysphagia and WFL pharyngeal phase dysphagia. Aside from transient/flash penetration on initial sip- there is no penetration or aspiration or pharyngeal retention appreciated during the study. Of notice, patient did generate a wet cough intermittently throughout the study though did not appear correlated to PO. See below for further breakdown of physiologic performance. Overall, deconditioned status and oral phase impairments do increase risk for aspiration and impact efficiency, though these risks can be mitigated with standard swallowing precautions and diet modification as listed below. No further ST needs identified. Specialist referrals:?None RECOMMENDATIONS: Diet Texture/IDDSI Level Recommendation:? SOLIDS 6- Soft and Bite Size LIQUIDS? 0-Thin Liquids MEDICATIONS Whole With 4-Purees Alter medications only as advised by MD or Pharmacist Risk Management Strategies:? Behavioral reflux precautions, including upright position during + at least 30- 60 mins after meals. Avoid snacks/meals 2-3 hours before reclining/sleeping Small bites Small sips Slow rate of intake PLAN: No further ST warranted. Procedure only. OBJECTIVE Videofluoroscopic Swallow Evaluation (VFSE/MBSS) was conducted in the lateral[ and [id number]] projection by Speech-Language Pathologist, in collaboration with Radiologist, to evaluate oropharyngeal swallow function. Anatomic view under fluoroscopy: WFL PO Barium Contrast Trials Oral barium water-soluble contrast was administered as follows: IDDSI Level 0 Varibar thin liquid (40% w/v) IDDSI Level 2 Varibar nectar thick/mildly thick liquid (40% w/v) IDDSI Level 4 Varibar pudding/pureed/extremely thick (40% w/v) IDDSI Level 7 Regular Solid: 1/2 guicho cracker coated in 3 mL Varibar pudding MBSImP Component Scores: COMPONENT Scale SCORE 1 Lip closure (0-4) 0 Resulted in no labial escape 2 Hold Position (0-3) 0 Maintained a cohesive bolus between tongue to palatal seal 3 Bolus Preparation (0-4) 1 Resulted in slow prolonged chewing/mashing with complete re-collection 4 Bolus Transport (0-4) 2 Was with slowed tongue motion 5 Oral Residue (0-4) 1 Was a trace, lining oral structures 6 Swallow Initiation (0-4) 1 Occurred when the bolus head was in valleculae 7 Soft Palate Elevation (0-4) 0 Resulted in no bolus between soft palate and the pharyngeal wall 8 Laryngeal Elevation (0-3) 0 Demonstrated complete superior movement of thyroid cartilage with complete approximation of arytenoids to epiglottic petiole 9 Anterior Hyoid Motion (0-2) 0 Demonstrated complete anterior movement 10 Epiglottic Movement (0-2) 0 Resulted in complete inversion 11 Laryngeal Closure (0-2) 0 Was complete with no air or contrast in laryngeal vestibule 12 Pharyngeal Stripping Wave (0-2) 0 Was present and complete 13 Pharyngeal Contraction (0-3) 0 Was complete 14 PES Opening (0-3) NA 15 Tongue Base Retraction (0-4) 0 Allowed no contrast between the tongue base and posterior pharyngeal wall 16 Pharyngeal Residue (0-4) 0 Was not present. There was complete pharyngeal clearance 17 Esophageal Clearance (0-4) NA Results: COMPONENT Scale SCORE 1 Oral Score (0-18) 4 2 Pharyngeal Score (0-29) 0 3 Esophageal Score (0-4) 0 Functional Oral Intake Scale: COMPONENT Scale SCORE 1 Pre-Study (1-7) 6 Total oral intake with no special preparation, but must avoid specific foods or liquid items 2 Post-Study (1-7) 6 Total oral intake with no special preparation, but must avoid specific foods or liquid items Penetration-Aspiration Scale: COMPONENT Scale SCORE 1 Thin liquid (1-8) 2 Contrast entered the airway, remained above the vocal folds, and was ejected from the airway. *Occured with initial sip with bolus hold only- PAS score of 1 for 3 subsequent trials of thin liquids, including repetitive sips 2 [place] thick (1-8) 1 Contrast did not enter the airway 3 Honey thick (1-8) NA 4 Pudding thick (1-8) 1 Contrast did not enter the airway 5 Cookie (1-8) 1 Contrast did not enter the airway Thank you for allowing us to take part in this patient's care. Please feel free to contact the [facility] Speech Language Pathology Department with any questions/concerns.
[2023-11-18] MEDS: Insulin Aspart 300 UNITS/3 ML PEN SC ×6 (10:20→17:10)
[2023-11-18] MEDS: Insulin Glargine 300 UNITS/3 ML PEN 30 UNITS SC ×2 (10:42→10:48)
[2023-11-18] MEDS: Nystatin POWDER 60 GM JAR TP ×3 (11:13→19:55)
--- NOTE | 2023-11-18 14:38 | IN_ITS ---
PT Notes Visit Reasons: Gallstone Pancreatitis Physical Therapy Inpatient Initial Evaluation Date: 11/18/2023 Referring Doctor: Anish Taylor MD PT Orders: PT CONSULT: Extended Stay Weakness Precautions: Fall. Standard. Activity as tolerated. Patient Profile/Admitting Diagnosis: Nilam is a 73-year-old female with past medical history significant for CVA readmitted for management of acute cholecystitis, unstageable pressure ulcer of R heel, poorly controlled type II DM, CHF, hyponatremia, and anemia in chronic illness. PMHX: All Active Problems Anemia in chronic illness (Acute) Hyponatremia (Acute) Acute cholecystitis (Acute) Transaminitis (Acute) Obesity (Chronic) Unstageable pressure ulcer of right heel (Acute) Poorly controlled type 2 diabetes mellitus with peripheral neuropathy (Acute) Diabetic foot infection (Acute) Low serum iron (Acute) Lumbar back pain with radiculopathy affecting right lower extremity (Acute) Ambulatory dysfunction (Acute) Weakness (Acute) Medical History Hypothyroid Gram-negative bacteremia Pleural effusion, left Hyperglycemia due to type 2 diabetes mellitus Urinary tract infection Palliative care patient Physician orders for life-sustaining treatment (POLST) form indicates patient wish for [id number] status ACP (advance care planning) Stroke Diabetes CHF (congestive heart failure) Surgical History History of ERCP S/P tonsillectomy Social History/Home Situation: Lived in a SNF in [place] since April to August of this year. Now resident of the [facility] since most recent discharge from this hospital. Equipment Owned/DME: Used wheelchair for long distances in previous SNF Subjective: Complained of pain in R abdominal area when she attempted to sit up and stand up. Reported fatigue but was willing to try her best to mobilize. Objective: General Observation: Resting in bed. Love catheter in place. High BMI. R leg and foot more swollen than L. Mental Status: Alert and oriented as to person, place, time, and purpose. Able to pay attention, focus, and respond appropriately. Pain: As above Vital Signs: Closely monitored by nursing staff ROM: Right Upper Extremity: Shoulder Flexion WFL. Shoulder abduction WFL. Elbow flexion WFL. Wrist flexion WFL. Functional opening and closing of hand WFL. Left Upper Extremity: Shoulder Flexion WFL. Shoulder abduction WFL. Elbow flexion WFL. Wrist flexion WFL. Functional opening and closing of hand WFL. Right Lower Extremity: Hip flexion WFL. Hip abduction WFL. Knee flexion WFL. Ankle dorsiflexion to neutral only. Ankle plantarflexion WFL. Left Lower Extremity: Hip flexion only allows 25% of AROM. Hip abduction WFL. Knee flexion 30 degrees to 60 degrees. Kne extension -30 degrees. Ankle dorsiflexion to neutral only. Ankle plantarflexion WFL. Strength: Right Upper Extremity: Shoulder flexors 4/5. Shoulder abductors 4/5. Elbow flexors 4/5. Elbow extensors 4/5. Repair Operator strong. Left Upper Extremity: Shoulder flexors 4-/5. Shoulder abductors 4-/5. Elbow flexors 4-/5. Elbow extensors 4-/5. Repair Operator weaker than R but functional. Right Lower Extremity: Hip flexors 3/5. Hip abductors 4-/5. Knee flexors 4/5. Knee extensors 4-/5. Ankle dorsiflexors 3-/5. Ankle plantarflexors 4-/5. Left Lower Extremity: Hip flexors 3-/5. Hip abductors 3-/5. Knee flexors 3-/5. Knee extensors 3-/5. Ankle dorsiflexors 3-/5. Ankle plantarflexors 3-/5. Bed Mobility/Transfers: Minimal cueing provided for use of B hands as needed for support, movement sequence, AD management, and posture to reduce fall risk and minimize pain report Supine to sit with minimal assist, HOB at 45 degrees Sit to stand with minimal assist Stand to sit with contact guard assist Gait: Facilitated safe and correct performance of level surface ambulation covering a distance of 5 steps + 15 steps using front-wheeled walker with minimal assist and wheelchair follow requiring minimal verbal cueing for limb advancement, AD management, and posture to reduce fall risk and minimize pain report. Decreased step height and length on L. Minimal weight bearing on the R heel. Standardized Measure [facility] AM-PAC 6 clicks Basic Mobility Inpatient Short Form: Raw Score: 15 CMS Score: 58% deficit Informed Consent/Education: Patient was instructed in purpose of PT consult and plan of care. Agreeable to proceed with established PT POC to achieve personal goals. Assessment: Patient presents with clinical signs and symptoms consistent with current/a dmitting diagnoses that have resulted to mobility limitations, gait instability, generalized weakness, and overall ADL decline as demonstrated by the following impairment level findings: 1. Decreased strength to B UE/LE major muscle groups 2. Impaired standing balance 3. Impaired activity tolerance 4. Shortness of breath 5. Swelling in B LE with R>>L Impairments are contributing to the following functional limitations: 1. Decline in bed mobility skills 2. Decline in transfer skills 3. Difficulty with ambulation without assistive device and physical assistance 4. Increased completion time for mobility ADL performance 5. Increased risk for falls 6. Difficulty with managing steps alone safely Patient is assessed as a 60552 moderate complexity based on the following: History: 73-year-old female with past medical history as indicated above Examination: Demonstrable impairment in strength, balance, and mobility level with underlying impairments and functional limitations as exhibited above as well as deficit score of 58% utilizing the [facility] Mobility Inpatient Short Form Presentation: Evolving Decision Makin moderate complexity Goals: Goals X1 week 1. Supine-Sit independent 2. Sit-Supine independent 3. Sit-Stand independent 4. Stand-Sit independent with FWW 5. Bed-Chair independent with FWW 6. Chair-Bed independent with FWW 7. Independent gait on level surface with use of FWW for at least 200 feet without report of pain nor dyspnea 8. Independent stair negotiation while holding onto B rails for at least 5 steps without report of pain nor dyspnea 9. Independent with home exercise program 10. Good static and dynamic standing balance/tolerance Plan of Care/Treatment Plan: 1-2x/day, 7 days/week x 1 week. Plan of care has been reviewed with the HEALTH INFORMATION CLERK providing the service under Physical Therapy direction. Initiate Physical Therapy intervention for pain management as needed, strengthening, bed mobility, transfers, gait, stairs, balance training, and use of assistive device. DISCHARGE RECOMMENDATIONS: [] Home with no services [] [] Home with services [] Home with outpatient PT [] [] SNF for continued rehabilitation [] [] Long-Term Care [] [] SNF versus LTC based on ability to participate and progress [] [X] Return to SNF and rsume PT services for functional mobility training TREATMENT CODE/TIME: 11587 x 20 minutes for 1 unit, 62735 x 10 minutes for 1 unit (14:38-15:08). Thank you for the opportunity to participate in the care of this patient. Bridget Andersen PT, DPT, CLT [facility] [place], [place]
--- NOTE | 2023-11-18 15:40 | W.PM.PROGNOT ---
Date of Service Date of service: 11/18/23 Time of Service: 15:40 Assessment and Plan Assessment and plan (1) Acute cholecystitis: Status: Acute Assessment and plan: Meropenem d#3 for acute cholecystitis and resistant Klebsiella UTI, biliar fluid sent for gram stain and culture this morning and no organisms seen on gram stain and no WBC, so looks like sterile. will repeat her urine culture, WBC declining to 11,670, I would continue the meropenem for another 3 days but expect she will be ready for discharge back to [facility] on Tuesday (2) Poorly controlled type 2 diabetes mellitus with peripheral neuropathy: Status: Acute Assessment and plan: blood sugars rising into the high 200's and low 300's, will adjust her Lantus and her meal coverage as well as her sliding scale. (3) Unstageable pressure ulcer of right heel: Status: Acute Assessment and plan: This does not look actively infected. Keep covered and offloaded. Followed by [facility] as outpatient. No change (4) CHF (congestive heart failure): Assessment and plan: yesterday I was concerned that her cough may be a sign of developing CHF, I did give her an extra dose of lasix iv, clinically she seems better today, cough improved. CXR did not show any pulmonary edema. Exam does not appear to be overloaded, i.e. no pedal edema and clear lungs. She remains on lasix. I will add daily dose of spironolactone to keep her K in the normal range and help to control edema Qualifiers: Heart failure type: diastolic Heart failure chronicity: chronic Qualified Code(s): I50.32 - Chronic diastolic (congestive) heart failure (5) Hyponatremia: Status: Acute Assessment and plan: improving, monitor while on diuretics; spironolactone added for her HFPEF (6) Anemia in chronic illness: Status: Acute Assessment and plan: recent transferrin saturation normal, low TIBC c/w chronic disease. Recent B12/folate normal. Continues stable. Subjective Subjective Interval history since last seen: Nilam states that she feels better today, abdominal pains are improved. Appetite is still only fair. She says that she only picked at her tray but her nurse indicated on her lunch assessment it said that she ate 80%. Exam Narrative Exam Narrative: Nilam is sitting up in her chair, watching TV after lunch, no acute discomfort Lungs: clear anteriorly Heart: RRR Abdomen: nondistended, normal bowel sounds, minimal tenderness w/ palpation in RUQ and epigastrium Extremities: iv in left forearm, no edema or erythema; legs w/ out edema, some superficial venous varicosities Objective Last Vital Signs Temp 36.5 C 11/18/23 08:38 Pulse 79 11/18/23 08:38 Resp 18 11/18/23 08:38 BP 125/68 11/18/23 08:38 Pulse Ox 94 11/18/23 08:38 Laboratory Results - last 24 hr 11/18/23 06:20 WBC 11.67 H RBC 3.80 L Hgb 9.6 L Hct 30.7 L MCV 81 MCH 25.3 L MCHC 31.3 L RDW 16.0 H Plt Count 459 H MPV 8.8 Immature Gran % 1.1 Neutrophils % 74.7 Lymphocytes % 12.4 Monocytes % 9.9 Eosinophils % 1.8 Basophils % 0.1 Nucleated RBC % 0.0 Absolute Neutrophils 8.72 H Absolute Lymphocytes 1.45 Absolute Monocytes 1.16 H Absolute Eosinophils 0.21 Absolute Basophils 0.01 Sodium 130 L Potassium 3.9 Chloride 92 L Carbon Dioxide 28.7 Anion Gap 9.3 BUN 13 Creatinine 1.1 H Est GFR (CKD-EPI 2020) 52.73 Glucose 232 H Calcium 8.7 Total Bilirubin 0.5 AST 10 L ALT 35 Alkaline Phosphatase 220 H Total Protein 8.0 Albumin 2.1 L Time Spent with Patient Time Spent with Patient: 35-49 minutes Time was spent: preparing to see the patient(eg.review tests), ordering medications,tests, procedures, referring, communicating with other health home care giver, indepentently interpreting results, counseling the patient and care coordination
[2023-11-18 15:50] VITALS: BP 126/69; PULSE 74; RESP 18; TEMP 36; O2SAT 96
[2023-11-18] MEDS: Spironolactone 25 MG TAB PO (16:41)
--- NOTE | 2023-11-18 17:53 | CMPROGNOTE_ITS ---
Care Management Progress Note Progress Note Text Progress Note Text: Per MD, Nilam will remain at [facility] over the weekend. Anticipate Tuesday she will return to the [facility]. CM following. SDOH(Care Management) Screening Will the Patient Participate in the Screening?: Unable to obtain
--- NOTE | 2023-11-18 17:53 | PDOC.CMPRO ---
Care Management Progress Note Progress Note Text Progress Note Text: Per MD, Nilam will remain at [facility] over the weekend. Anticipate Tuesday she will return to the [facility]. CM following. SDOH(Care Management) Screening Will the Patient Participate in the Screening?: Unable to obtain
[2023-11-18 19:40] VITALS: BP 105/53; PULSE 83; RESP 18; TEMP 37.4; O2SAT 94
[2023-11-18] MEDS: Insulin Glargine 300 UNITS/3 ML PEN 20 UNITS SC (19:56)
[2023-11-19] VITALS (9 sets, daily range): BP systolic 104–137; BP diastolic 59–70; PULSE 77–95; RESP 2–18; TEMP 36.1–37; O2SAT 91–96
[2023-11-19] MEDS: MEROPENEM 1 GM in Normal Saline 100 ML IVPB ×3 (03:45→20:18)
[2023-11-19] MEDS: Levothyroxine 150 MCG TAB PO (06:22)
[2023-11-19] MEDS: Pantoprazole 40 MG TABCR PO (06:22)
[2023-11-19 07:01] LABS: Abs Immature Grans 0.09 10^3/uL (0.0-0.06); Absolute Eosinophil Count 0.34 10^3/uL (0.0-0.7); Basophils % 0.2 %; Eosinophils % 2.6 %; HCT 30.6 % (36.0-46.0); HGB 9.7 g/dL (11.2-15.7); Immature Grans % 0.7 %; MCH 25.3 pg (27.0-33.0); MCHC 31.7 % (32.0-36.0); MCV 80 fL (80-95); MPV 8.3 fL (8.0-11.0); Monocytes % 9.8 %; Neutrophils % 71.7 %; Platelet Count 419 10^3/uL (130-400); RBC 3.84 10^6/uL (3.93-5.22); RDW 15.9 % (11.7-14.6); RDW-SD 46.3 fL; WBC 13.11 10^3/uL (4.4-10.8)
[2023-11-19 07:02] LABS: Absolute Basophil Count 0.03 10^3/uL (0.0-0.2); Absolute Lymphocyte Count 1.97 10^3/uL (1.2-3.4); Absolute Monocyte Count 1.28 10^3/uL (0.1-0.8)
[2023-11-19 07:15] LABS: Anion Gap 8.3 mmol/L (3-11); BUN 13 mg/dL (7-18); CO2 27.7 mmol/L (21.0-32.0); CREATININE 0.9 mg/dL (0.55-1.02); Calcium 8.9 mg/dL (8.5-10.1); Chloride 94 mmol/L (98-107); Estimated GFR 67.08 (mL/min/1.73m2); Glucose 149 mg/dL (74-106); Potassium 3.8 mmol/L (3.5-5.1); Sodium 130 mmol/L (136-145)
[2023-11-19] MEDS: Normal Saline Flush 10 ML SYR IVP ×3 (08:00→20:17)
[2023-11-19] MEDS: Lactobacillus Acidophilus CAP 1 CAP PO (08:01)
[2023-11-19] MEDS: Atorvastatin 40 MG TAB PO (08:01)
[2023-11-19] MEDS: Magnesium Oxide 400 MG TAB PO (08:01)
[2023-11-19] MEDS: Furosemide 40 MG TAB PO ×2 (08:01→16:48)
[2023-11-19] MEDS: Ferrous Sulfate 325 MG TAB PO (08:01)
[2023-11-19] MEDS: Potassium Chloride 20 MEQ TABCR PO (08:01)
[2023-11-19] MEDS: Benzonatate 200 MG CAP PO ×3 (08:01→20:16)
[2023-11-19] MEDS: Docusate Sodium 100 MG CAP PO (08:01)
[2023-11-19] MEDS: Spironolactone 25 MG TAB PO (08:01)
[2023-11-19] MEDS: Insulin Glargine 300 UNITS/3 ML PEN 35 UNITS SC (08:02)
[2023-11-19] MEDS: Nystatin POWDER 60 GM JAR TP ×3 (08:02→20:18)
[2023-11-19] MEDS: Insulin Aspart 300 UNITS/3 ML PEN SC ×5 (08:02→20:19)
[2023-11-19] MEDS: Polyethylene Glycol 3350 17 GM PACKET PO ×2 (08:03→20:17)
--- NOTE | 2023-11-19 10:46 | PT.INTREAT ---
PT Notes Visit Reasons: Gallstone Pancreatitis Inpatient Physical Therapy Treatment Note [facility] Date: 11/19/23 PRECAUTIONS:Contact precautions SUBJECTIVE: Pt reports that she is tired today. OBJECTIVE: Therapeutic Activities (95949f[]): Direct one-on-one instruction in dynamic activities to improve functional performance. ? BED MOBILITY/TRANSFERS? Sit-stand: x2 with CGA x 1? Stand-sit: x2 with CGA x1 ? Provided skilled cues and instruction on performance and technique throughout. Gait Training (27237m[]): Direct one-on-one instruction and skilled instruction in: ? Therapeutic Exercises (54199n[1]): Direct one-on-one instruction in therapeutic exercises to develop strength, endurance, range of motion and flexibility. ? Exercises ? LAQ x 10 Seated hip abd x 5 Marching x 10 Seated HR/TR x 10 Ambulation ? Assistive Device: FWW ? Weight bearing: Full Assist: CGA? Distance:? Static standing for approx 45 sec and then transfer from the chair 3 steps to the commode ? ASSESSMENT:? Pt was checked on x2 today and was not wanting to participate in PT finally the 3rd time was willing. Pt fatigued fairly quickly and not very motivated for PT. PLAN: Cont as per PT POC. TREATMENT CODE/TIME: 10:30-10:45 (15) TE
[2023-11-19] MEDS: HYDROmorphone 2 MG/ML SYR 0.5 MG IVP (12:08)
--- NOTE | 2023-11-19 13:54 | W.PM.PROGNOT ---
Date of Service Date of service: 11/19/23 Time of Service: 13:54 Assessment and Plan Assessment and plan (1) Acute cholecystitis: Status: Acute Assessment and plan: Meropenem d#4 for acute cholecystitis and resistant Klebsiella UTI, biliar fluid sent for gram stain and culture this morning and no organisms seen on gram stain and no WBC, so looks like sterile. will repeat her urine culture, WBC declining to 13,000, I would continue the meropenem for another couple of days but expect she will be ready for discharge back to [facility] on Tuesday (2) Poorly controlled type 2 diabetes mellitus with peripheral neuropathy: Status: Acute Assessment and plan: blood sugars rising into the high 200's and low 300's, I have adjusted her insulin. I will give her NPH in the morning d/t onset of action as this will help control her highs during the day along w/ her CHO coverage w/ Novolog 2 units per 10 gm CHO and her resistant sliding scale (3) Unstageable pressure ulcer of right heel: Status: Acute Assessment and plan: This does not look actively infected. Keep covered and offloaded. Followed by [facility] as outpatient. No change (4) CHF (congestive heart failure): Assessment and plan: No evidence of acute exacerbation, no JVD, no gallop and no pitting edema. continue w/ lasix and spironolactone to keep her euvolemic. Qualifiers: Heart failure type: diastolic Heart failure chronicity: chronic Qualified Code(s): I50.32 - Chronic diastolic (congestive) heart failure (5) Hyponatremia: Status: Acute Assessment and plan: improving, monitor while on diuretics; spironolactone added for her HFPEF (6) Anemia in chronic illness: Status: Acute Assessment and plan: recent transferrin saturation normal, low TIBC c/w chronic disease. Recent B12/folate normal. Continues stable. (7) Cough: Status: Acute Assessment and plan: cxr done two days ago, no acute abnormality however was limited exam and some of bases obscured by her cardiac border. will put her on guaifenesin and scheduled DuoNeb and use of acapella. If not improving then consider CT chest. She has teskorin alexander Qualifiers: Cough type: acute Qualified Code(s): R05.1 - Acute cough (8) Constipation: Status: Acute Assessment and plan: patient already on scheduled miralax bid, will add metamucil and senna scheduled and use dulcolax prn Qualifiers: Constipation type: slow transit constipation Qualified Code(s): K59.01 - Slow transit constipation Subjective Subjective Interval history since last seen: Nilam was up for quite some time this morning for P.T. and was up in chair for her meals. She is now tired and back in bed. She still has cough, moist but trouble mobilizing this. She says that her abdomen hurts when she coughs. Exam Narrative Exam Narrative: alert and oriented, no distress, pleasant and talkative w/ nursing Lungs: coarse bibasilar sounds, rhonchorous, heard at posterolateral bases, upper shepherd clear Heart: distant heart tones but regular, soft systolic murmur Abdomen: biliary tube draining barakat yellow cream colored, almost color of baby poop, abdomen is nondistend, soft, normal bowel sounds (patient says she has not had a bowel movement for couple of days) Legs: no pitting edema Objective Last Vital Signs Temp 36.7 C 11/19/23 12:15 Pulse 84 11/19/23 12:15 Resp 17 11/19/23 07:37 BP 110/67 11/19/23 12:15 Pulse Ox 95 11/19/23 12:15 Laboratory Results - last 24 hr 11/19/23 06:50 WBC 13.11 H RBC 3.84 L Hgb 9.7 L Hct 30.6 L MCV 80 MCH 25.3 L MCHC 31.7 L RDW 15.9 H Plt Count 419 H MPV 8.3 Immature Gran % 0.7 Neutrophils % 71.7 Lymphocytes % 15.0 Monocytes % 9.8 Eosinophils % 2.6 Basophils % 0.2 Nucleated RBC % 0.0 Absolute Neutrophils 9.40 H Absolute Lymphocytes 1.97 Absolute Monocytes 1.28 H Absolute Eosinophils 0.34 Absolute Basophils 0.03 Sodium 130 L Potassium 3.8 Chloride 94 L Carbon Dioxide 27.7 Anion Gap 8.3 BUN 13 Creatinine 0.9 Est GFR (CKD-EPI 2020) 67.08 Glucose 149 H Calcium 8.9 Time Spent with Patient Time Spent with Patient: 25-34 minutes Time was spent: preparing to see the patient(eg.review tests), ordering medications,tests, procedures, referring, communicating with other health patient care technician instructor, indepentently interpreting results, counseling the patient and care coordination
[2023-11-19] MEDS: Senna TAB 1 TAB PO ×2 (14:40→20:16)
[2023-11-19] MEDS: guaiFENesin 600 MG TABCR PO ×2 (14:40→20:16)
[2023-11-19] MEDS: Psyllium PKT 1 EACH PO ×2 (14:41→20:17)
[2023-11-19] MEDS: Bisacodyl 10 MG SUPP PR (14:41)
[2023-11-19 15:00] LABS: Bilirubin Negative (Negative); Blood Trace-intact (Negative); Clarity Clear (Clear); Glucose Negative (Negative); Ketones Negative (Negative); Leukocyte Esterase Negative (Negative); Nitrite Negative (Negative); Specific Gravity 1.015 (1.005-1.025)
[2023-11-19 15:09] LABS: Bacteria Negative HPF (Negative); C & S Indicated? C&S Done As Ordered; Crystals Negative HPF (Negative); Epithelial Cells Rare HPF (Negative); Mucus Negative (Negative); WBC Negative HPF (0-5)
[2023-11-19] MEDS: Albuterol/Ipratropium 3 ML UPD VIAL UPD ×2 (16:40→19:57)
[2023-11-19] MEDS: Insulin Glargine 300 UNITS/3 ML PEN 30 UNITS SC (20:18)
[2023-11-20] VITALS (7 sets, daily range): BP systolic 111–124; BP diastolic 59–71; PULSE 71–80; RESP 2–18; TEMP 36.4–36.8; O2SAT 93–98
[2023-11-20] MEDS: MEROPENEM 1 GM in Normal Saline 100 ML IVPB ×3 (03:53→20:50)
[2023-11-20] MEDS: Levothyroxine 150 MCG TAB PO (06:22)
[2023-11-20 07:07] LABS: Abs Immature Grans 0.13 10^3/uL (0.0-0.06); Absolute Basophil Count 0.04 10^3/uL (0.0-0.2); Absolute Eosinophil Count 0.33 10^3/uL (0.0-0.7); Absolute Lymphocyte Count 2.15 10^3/uL (1.2-3.4); Absolute Neutrophil Count 9.56 10^3/uL (1.2-6.7); Basophils % 0.3 %; Eosinophils % 2.5 %; HCT 29.9 % (36.0-46.0); HGB 9.7 g/dL (11.2-15.7); Lymphocytes % 16.1 %; MCH 25.7 pg (27.0-33.0); MCHC 32.4 % (32.0-36.0); MCV 79 fL (80-95); MPV 8.4 fL (8.0-11.0); Monocytes % 8.5 %; Neutrophils % 71.6 %; Platelet Count 457 10^3/uL (130-400); RBC 3.78 10^6/uL (3.93-5.22); RDW 15.9 % (11.7-14.6); RDW-SD 45.6 fL; WBC 13.35 10^3/uL (4.4-10.8)
[2023-11-20 07:17] LABS: Anion Gap 8.3 mmol/L (3-11); BUN 18 mg/dL (7-18); CO2 28.7 mmol/L (21.0-32.0); CREATININE 0.9 mg/dL (0.55-1.02); Calcium 9.1 mg/dL (8.5-10.1); Chloride 93 mmol/L (98-107); Estimated GFR 67.08 (mL/min/1.73m2); Glucose 187 mg/dL (74-106); Potassium 4.1 mmol/L (3.5-5.1); Sodium 130 mmol/L (136-145)
[2023-11-20 07:19] LABS: Absolute Monocyte Count 1.13 10^3/uL (0.1-0.8)
[2023-11-20] MEDS: Albuterol/Ipratropium 3 ML UPD VIAL UPD ×3 (07:48→19:49)
[2023-11-20] MEDS: Insulin NPH-Human 300 UNITS/3 ML PEN 35 UNIT SC (07:49)
[2023-11-20] MEDS: Lactobacillus Acidophilus CAP 1 CAP PO (07:50)
[2023-11-20] MEDS: Furosemide 40 MG TAB PO ×2 (07:50→16:42)
[2023-11-20] MEDS: Potassium Chloride 20 MEQ TABCR PO (07:50)
[2023-11-20] MEDS: Insulin Aspart 300 UNITS/3 ML PEN SC ×7 (07:50→20:49)
[2023-11-20] MEDS: Pantoprazole 40 MG TABCR PO (07:50)
[2023-11-20] MEDS: Ferrous Sulfate 325 MG TAB PO (07:51)
[2023-11-20] MEDS: Atorvastatin 40 MG TAB PO (07:51)
[2023-11-20] MEDS: Docusate Sodium 100 MG CAP PO (07:51)
[2023-11-20] MEDS: Magnesium Oxide 400 MG TAB PO (07:52)
[2023-11-20] MEDS: guaiFENesin 600 MG TABCR PO (07:52)
[2023-11-20] MEDS: Benzonatate 200 MG CAP PO ×2 (07:52→14:29)
[2023-11-20] MEDS: Senna TAB 1 TAB PO ×2 (07:53→20:48)
[2023-11-20] MEDS: Psyllium PKT 1 EACH PO ×2 (07:53→20:49)
[2023-11-20] MEDS: Spironolactone 25 MG TAB PO (07:53)
[2023-11-20] MEDS: Polyethylene Glycol 3350 17 GM PACKET PO ×2 (07:53→20:48)
[2023-11-20] MEDS: Nystatin POWDER 60 GM JAR TP ×3 (07:54→20:51)
[2023-11-20] MEDS: Normal Saline Flush 10 ML SYR IVP ×2 (07:54→20:50)
[2023-11-20 08:07] LABS: Procalcitonin 0.3 ng/mL
[2023-11-20 08:12] LABS: ALT 28 U/L (14-59); AST 13 U/L (15-37); Albumin 2.1 g/dL (3.4-5.0); Alkaline Phosphatase 186 U/L (46-116); Anion Gap 9.2 mmol/L (3-11); BUN 17 mg/dL (7-18); Bilirubin, Total 0.4 mg/dL (0.2-1.0); C-Reactive Protein 11.98 mg/dL (<or=0.5); CO2 26.8 mmol/L (21.0-32.0); CREATININE 0.9 mg/dL (0.55-1.02); Calcium 8.8 mg/dL (8.5-10.1); Chloride 93 mmol/L (98-107); Estimated GFR 67.08 (mL/min/1.73m2); Glucose 185 mg/dL (74-106); Potassium 4.1 mmol/L (3.5-5.1); Sodium 129 mmol/L (136-145)
--- NOTE | 2023-11-20 10:29 | PT.INTREAT ---
PT Notes Visit Reasons: Gallstone Pancreatitis Inpatient Physical Therapy Treatment Note [facility] Date: 11/20/23 PRECAUTIONS:Contact OBJECTIVE: Therapeutic Activities (81472x[]): Direct one-on-one instruction in dynamic activities to improve functional performance. ? BED MOBILITY/TRANSFERS? Sit-stand: CGA? Stand-sit: CGA ? Provided skilled cues and instruction on performance and technique throughout. Gait Training (15119g[]): Direct one-on-one instruction and skilled instruction in: ? Therapeutic Exercises (59482i[]): Direct one-on-one instruction in therapeutic exercises to develop strength, endurance, range of motion and flexibility. ? Exercises ? LAQ 2x 10 Seated hip abd 2x10 Marching 2 x 10 Seated Rowing 2x10 Seated shoulder flexion 2x10 Seated shoulder circles 2x10 Seated shoulder horz abd x10 Ambulation ? Assistive Device: FWW? Weight bearing: Full Assist: CGA/SBA ? Distance:? Standing marching for a brief time then her R knee was sore and couldn't tolerate the marching so completed static standinf or approx 1 min then had to sit due to her R knee pain. ? ASSESSMENT:? Pt was fatigued post session but will to participate in PT more so today then yesterday. PLAN: Cont as per PT POC. TREATMENT CODE/TIME: 10:10-10:30 ( 20) TE
--- NOTE | 2023-11-20 16:54 | W.PM.PROGNOT ---
Date of Service Date of service: 11/20/23 Time of Service: 16:54 Assessment and Plan Assessment and plan (1) Acute cholecystitis: Status: Acute Assessment and plan: Meropenem d#5 for acute cholecystitis and resistant Klebsiella UTI. UTI has resolved, repeat urine culture is no growth Biliary fluid sent for culture and is growing gram negative organism, identification and sensitivity pending; continue meropenem until discharged. (2) Poorly controlled type 2 diabetes mellitus with peripheral neuropathy: Status: Acute Assessment and plan: glucose still running in the high 200's to 300. currently on Lantus 30 units HS, NPH 35 in the morning along w/ Novolog CHO coverage 2 units per 10 grams and sliding scale (resistant during the day but only sensitive scale at HS to prevent nocuturnal hypoglycemia). will increase her basal and intermediate acting insulin. (3) Unstageable pressure ulcer of right heel: Status: Acute Assessment and plan: This does not look actively infected. Keep covered and offloaded. Followed by [facility] as outpatient. No change (4) CHF (congestive heart failure): Assessment and plan: No evidence of acute exacerbation, no JVD, no gallop and no pitting edema. continue w/ lasix and spironolactone to keep her euvolemic. Qualifiers: Heart failure chronicity: chronic Heart failure type: diastolic Qualified Code(s): I50.32 - Chronic diastolic (congestive) heart failure (5) Hyponatremia: Status: Acute Assessment and plan: improving, monitor while on diuretics; spironolactone added for her HFPEF (6) Anemia in chronic illness: Status: Acute Assessment and plan: recent transferrin saturation normal, low TIBC c/w chronic disease. Recent B12/folate normal. Continues stable. (7) Cough: Status: Acute Assessment and plan: cough improved. will change guaifenesin to prn, change tessalon perles to prn Qualifiers: Cough type: acute Qualified Code(s): R05.1 - Acute cough (8) Constipation: Status: Acute Assessment and plan: patient already on scheduled miralax bid, will add metamucil and senna scheduled and use dulcolax prn Qualifiers: Constipation type: slow transit constipation Qualified Code(s): K59.01 - Slow transit constipation Subjective Subjective Interval history since last seen: Nilam has no acute complaints. Good appetite, abdominal pains have improved. Exam Narrative Exam Narrative: alert and oriented, eating dinner Lungs: clear heart: RRR Abdomen: soft, nontender, normal bowel sounds Biliary drain 45 mL yesterday and only about 10 mL today so far Objective Last Vital Signs Temp 36.7 C 11/20/23 15:23 Pulse 80 11/20/23 15:23 Resp 17 11/20/23 15:23 BP 111/59 L 11/20/23 15:23 Pulse Ox 94 11/20/23 15:23 Laboratory Results - last 24 hr 11/20/23 11/20/23 11/20/23 06:45 06:45 06:45 WBC 13.35 H RBC 3.78 L Hgb 9.7 L Hct 29.9 L MCV 79 L MCH 25.7 L MCHC 32.4 RDW 15.9 H Plt Count 457 H MPV 8.4 Immature Gran % 1.0 Neutrophils % 71.6 Lymphocytes % 16.1 Monocytes % 8.5 Eosinophils % 2.5 Basophils % 0.3 Nucleated RBC % 0.0 Absolute Neutrophils 9.56 H Absolute Lymphocytes 2.15 Absolute Monocytes 1.13 H Absolute Eosinophils 0.33 Absolute Basophils 0.04 Sodium 130 L 129 L Potassium 4.1 4.1 Chloride 93 L Carbon Dioxide Anion Gap BUN Creatinine Est GFR (CKD-EPI 2020) Glucose Calcium Total Bilirubin AST ALT Alkaline Phosphatase C-Reactive Protein Total Protein Albumin Procalcitonin 11/20/23 11/20/23 11/20/23 06:45 06:45 06:45 WBC RBC Hgb Hct MCV MCH MCHC RDW Plt Count MPV Immature Gran % Neutrophils % Lymphocytes % Monocytes % Eosinophils % Basophils % Nucleated RBC % Absolute Neutrophils Absolute Lymphocytes Absolute Monocytes Absolute Eosinophils Absolute Basophils Sodium Potassium Chloride 93 L Carbon Dioxide 28.7 26.8 Anion Gap 8.3 9.2 BUN 18 Creatinine Est GFR (CKD-EPI 2020) Glucose Calcium Total Bilirubin AST ALT Alkaline Phosphatase C-Reactive Protein Total Protein Albumin Procalcitonin 11/20/23 11/20/23 11/20/23 06:45 06:45 06:45 WBC RBC Hgb Hct MCV MCH MCHC RDW Plt Count MPV Immature Gran % Neutrophils % Lymphocytes % Monocytes % Eosinophils % Basophils % Nucleated RBC % Absolute Neutrophils Absolute Lymphocytes Absolute Monocytes Absolute Eosinophils Absolute Basophils Sodium Potassium Chloride Carbon Dioxide Anion Gap BUN 17 Creatinine 0.9 0.9 Est GFR (CKD-EPI 2020) 67.08 67.08 Glucose 187 H Calcium Total Bilirubin AST ALT Alkaline Phosphatase C-Reactive Protein Total Protein Albumin Procalcitonin 11/20/23 11/20/23 06:45 06:45 WBC RBC Hgb Hct MCV MCH MCHC RDW Plt Count MPV Immature Gran % Neutrophils % Lymphocytes % Monocytes % Eosinophils % Basophils % Nucleated RBC % Absolute Neutrophils Absolute Lymphocytes Absolute Monocytes Absolute Eosinophils Absolute Basophils Sodium Potassium Chloride Carbon Dioxide Anion Gap BUN Creatinine Est GFR (CKD-EPI 2020) Glucose 185 H Calcium 9.1 8.8 Total Bilirubin 0.4 AST 13 L ALT 28 Alkaline Phosphatase 186 H C-Reactive Protein 11.98 H Total Protein 8.0 Albumin 2.1 L Procalcitonin 0.3 Time Spent with Patient Time Spent with Patient: 25-34 minutes Time was spent: preparing to see the patient(eg.review tests), ordering medications,tests, procedures, referring, communicating with other health client care representative, indepentently interpreting results, counseling the patient and care coordination
[2023-11-20] MEDS: Insulin Glargine 300 UNITS/3 ML PEN 35 UNITS SC (20:49)
[2023-11-21] MEDS: Normal Saline Flush 10 ML SYR IVP ×2 (03:38→07:57)
[2023-11-21] MEDS: MEROPENEM 1 GM in Normal Saline 100 ML IVPB (03:38)
[2023-11-21] MEDS: Levothyroxine 150 MCG TAB PO (04:18)
[2023-11-21 06:35] LABS: Abs Immature Grans 0.12 10^3/uL (0.0-0.06); Absolute Basophil Count 0.04 10^3/uL (0.0-0.2); Absolute Eosinophil Count 0.53 10^3/uL (0.0-0.7); Basophils % 0.3 %; Eosinophils % 4.3 %; HGB 9.6 g/dL (11.2-15.7); Lymphocytes % 17.4 %; MCH 25.2 pg (27.0-33.0); MCV 79 fL (80-95); MPV 8.3 fL (8.0-11.0); Monocytes % 9.8 %; Neutrophils % 67.2 %; Platelet Count 466 10^3/uL (130-400); RBC 3.81 10^6/uL (3.93-5.22); RDW-SD 45.9 fL; WBC 12.27 10^3/uL (4.4-10.8)
[2023-11-21 06:39] LABS: Absolute Lymphocyte Count 2.13 10^3/uL (1.2-3.4); Absolute Neutrophil Count 8.25 10^3/uL (1.2-6.7)
[2023-11-21 06:55] LABS: ALT 26 U/L (14-59); AST 12 U/L (15-37); Albumin 2.2 g/dL (3.4-5.0); Alkaline Phosphatase 171 U/L (46-116); Anion Gap 9.5 mmol/L (3-11); BUN 18 mg/dL (7-18); Bilirubin, Total 0.4 mg/dL (0.2-1.0); C-Reactive Protein 6.95 mg/dL (<or=0.5); CO2 27.5 mmol/L (21.0-32.0); CREATININE 0.9 mg/dL (0.55-1.02); Chloride 93 mmol/L (98-107); Estimated GFR 67.08 (mL/min/1.73m2); Glucose 181 mg/dL (74-106); Potassium 4.3 mmol/L (3.5-5.1); Sodium 130 mmol/L (136-145)
[2023-11-21 07:26] VITALS: PULSE 73; RESP 18; RESP 9; O2SAT 93
[2023-11-21] MEDS: Albuterol/Ipratropium 3 ML UPD VIAL UPD (07:26)
[2023-11-21 07:32] VITALS: PULSE 80; RESP 20; RESP 3; O2SAT 97
[2023-11-21 07:43] VITALS: BP 111/69; PULSE 77; RESP 18; TEMP 36.9; O2SAT 95
[2023-11-21] MEDS: Atorvastatin 40 MG TAB PO (07:52)
[2023-11-21] MEDS: Spironolactone 25 MG TAB PO (07:52)
[2023-11-21] MEDS: Magnesium Oxide 400 MG TAB PO (07:52)
[2023-11-21] MEDS: Lactobacillus Acidophilus CAP 1 CAP PO (07:52)
[2023-11-21] MEDS: Senna TAB 1 TAB PO (07:52)
[2023-11-21] MEDS: Pantoprazole 40 MG TABCR PO (07:52)
[2023-11-21] MEDS: Docusate Sodium 100 MG CAP PO (07:53)
[2023-11-21] MEDS: Ferrous Sulfate 325 MG TAB PO (07:53)
[2023-11-21] MEDS: Insulin NPH-Human 300 UNITS/3 ML PEN 40 UNIT SC (07:53)
[2023-11-21] MEDS: Potassium Chloride 20 MEQ TABCR PO (07:53)
[2023-11-21] MEDS: Polyethylene Glycol 3350 17 GM PACKET PO (07:53)
[2023-11-21] MEDS: Psyllium PKT 1 EACH PO (07:53)
[2023-11-21] MEDS: Furosemide 40 MG TAB PO (07:53)
[2023-11-21] MEDS: Insulin Aspart 300 UNITS/3 ML PEN SC ×2 (07:55→08:22)
[2023-11-21] MEDS: Nystatin POWDER 60 GM JAR TP (07:57)
--- NOTE | 2023-11-21 10:13 | CMDISCH_ITS ---
Date of service: 11/21/23 Time of Service: 10:13 LACE Index Scoring Tool Questions: Length of Stay (in days): 7 - 13 Was the patient admitted via the E.D.?: Yes Comorbidities: Diabetes w/o Complication and with End Organ Damage E.D. Visits: 3 Answers: Total Score: 14 Risk of Readmission: High Risk Care Management Discharge Plan Reason for Hospitalization: gallstone pancreatitis Discharge Plan: Nilam is discharged back to the [facility] for SNF. She is transported via [facility]. Nilam will follow up with community/facility providers and her discharge plan of care as instructed. Patient/Family Education Needs: Review discharge instructions, limitations, medications and plan to follow up with facility/community providers. Discuss ask me three. Services Needed at Discharge: Shelter Facility ([facility]) and Transportation ([facility]) [facility] Health Related Social Needs: No Data to Display
--- NOTE | 2023-11-21 10:20 | W.PM.DS.N ---
Date of service: 11/21/23 Time of Service: 10:20 DS: Diagnosis Discharge Diagnosis (1) Acute cholecystitis: Status: Acute Asessment and Plan: Patient initially presented to the emergency department with complaints of worsening abdominal pain for 1 to 2 days and staff at the [facility] where she resides today but she has not been acting herself. Ultimately, she was determined to have acute cholecystitis on HIDA scan, however general surgery was hesitant to perform cholecystectomy given patient's multiple comorbid conditions. She was initially treated with Zosyn from 11/10-11/13 and changed to Unasyn on 11/13, and was changed to meropenem on 11/14. On the day of discharge 11/21/2023, she had completed course of Merrem of 7 days which ultimately cultures from biliary fluid obtained during IR drainage [place] [facility] [place]. However, while patient was unable to have cholecystectomy for complete source control, IR drain and cholecystostomy tube placement on 11/16/2023 but being that patient had 6 days of appropriate IV antibiotic therapy. Given that patient also has had significant clinical improvement it was determined she was stable for discharge, which she will with close follow-up with her PCP, and with general surgery regarding cholecystostomy tube replacement and possible outpatient cholecystectomy. (2) Poorly controlled type 2 diabetes mellitus with peripheral neuropathy: Status: Acute Asessment and Plan: -continue home insuline regimen -blood sugar levels were elevated during hospitalization but this was secondary to acute infection (3) Unstageable pressure ulcer of right heel: Status: Acute Asessment and Plan: This does not look actively infected. Keep covered and offloaded. Followed by [facility] as outpatient. No change (4) CHF (congestive heart failure): Asessment and Plan: No evidence of acute exacerbation, no JVD, no gallop and no pitting edema. continue w/ lasix and spironolactone to keep her euvolemic. (5) Hyponatremia: Status: Acute Asessment and Plan: -resolved (6) Anemia in chronic illness: Status: Acute Asessment and Plan: recent transferrin saturation normal, low TIBC c/w chronic disease. Recent B12/folate normal. Continues stable. (7) Cough: Status: Acute Discharge Plan Disposition Patient Disposition: [facility]NF) Condition: Good Discharge Details Reason For Visit: Gallstone Pancreatitis Admit Date/Time: 11/11/23 10:01 Admit Provider: Anish Taylor Attending Provider: Anish Taylor Primary Care Provider: Unknown,Unknown Hospital Course Hospital Course: Patient initially presented to the emergency department with complaints of worsening abdominal pain for 1 to 2 days and staff at the [facility] where she resides today but she has not been acting herself. Ultimately, she was determined to have acute cholecystitis on HIDA scan, however general surgery was hesitant to perform cholecystectomy given patient's multiple comorbid conditions. She was initially treated with Zosyn from 11/10-11/13 and changed to Unasyn on 11/13, and was changed to meropenem on 11/14. On the day of discharge 11/21/2023, she had completed course of Merrem of 7 days which ultimately cultures from biliary fluid obtained during IR drainage and [place]ole[place] [facility] [place]. However, while patient was unable to have cholecystectomy for complete source control, IR drain and cholecystostomy tube placement on 11/16/2023 but being that patient had 6 days of appropriate IV antibiotic therapy. Given that patient also has had significant clinical improvement it was determined she was stable for discharge, which she will with close follow-up with her PCP, and with general surgery regarding cholecystostomy tube replacement and possible outpatient cholecystectomy. Home Meds and New Rx's Prescriptions: New spironolactone 25 mg Tablet 25 mg PO DAILY Qty: 90 0RF Continued MediHoney (honey) 80 % gel 1 applic topical DAILY Qty: 44 0RF benzonatate 200 mg capsule 200 mg PO Q8H PRN Rx Instructions: 200 mg orally PRN; atorvastatin 40 mg tablet 40 mg PO DAILY trazodone 50 mg tablet 50 mg PO QHS PRN acetaminophen 500 mg Tablet 1,000 mg PO TID MDD 3000 mg Qty: 60 0RF docusate sodium [Colace] 100 mg Capsule 100 mg PO DAILY Qty: 30 0RF ferrous sulfate 325 mg (65 mg iron) Tablet 325 mg PO DAILY Qty: 30 0RF pantoprazole 40 mg Tablet,Delayed Release (Dr/Ec) 40 mg PO DAILY@0730 Qty: 10 0RF metformin 500 mg tablet 500 mg PO BIDWMEAL Qty: 60 0RF levothyroxine 150 mcg tablet 150 mcg PO DAILY Bio-K plus 50 billion cell capsule,delayed release(DR/EC) 1 cap PO DAILY Qty: 10 0RF insulin glargine [Lantus Solostar U-100 Insulin] 100 unit/mL (3 mL) Insulin Pen 15 unit subcut QAM Qty: 15 0RF magnesium oxide 400 mg (241.3 mg magnesium) Tablet 400 mg PO DAILY Qty: 30 0RF potassium chloride [Klor-Con M20] 20 mEq Tablet,Er Particles/Crystals 20 meq PO DAILY Qty: 30 0RF insulin glargine [Lantus Solostar U-100 Insulin] 100 unit/mL (3 mL) Insulin Pen 25 unit subcut HS Qty: 15 0RF furosemide 40 mg Tablet 40 mg PO BID@0830,1600 Qty: 60 0RF Discontinued linezolid 600 mg Tablet 600 mg PO BID Qty: 10 0RF No Action (DME) lancets [FreeStyle Lancets] 28 gauge misc See Rx Instructions .Route Qty: 100 0RF Rx Instructions: As directed (DME) blood-glucose meter [FreeStyle Lite Meter] Kit See Rx Instructions .Route Qty: 1 0RF Rx Instructions: As directed (DME) FreeStyle Lite Strips Strip See Rx Instructions .Route Qty: 100 0RF Rx Instructions: As directed Discharge Instructions Additional Instructions: - Change dressing on drainage tube daily and when soiled -Wash site with soap and water or wound cleanser -Assess for redness/drainage/bleeding daily. -Flush biliary drain with sterile saline 10 cc twice a day -Call surgical office if drainage stops. -Patient is not a candidate for surgery and will have drain in place lifelong. -Cover to shower -If drain gets pulled out, patient needs to immediately go to the ER. Referrals: Yoana Hanks DO [OSTEOPATHIC DOCTOR] - Activity:: Activity as Tolerated Equipment/Supplies:: No Equipment Needed Diet:: As Tolerated Discharge Orders Discharge Orders: Discharge Order (Routine); Ordered 11/21/23 Ordered By: James Reed DS: Summary Time Spent with Patient providing and/or coordinating discharge services: Greater than 30 minutes Status at Discharge Functional status at discharge: independent ambulation Overall status at discharge: patient is back to baseline Mental Status: mental status grossly normal Speech and Movement: speech and movement normal Mood: congruent mood Affect: normal affect Quality:SDOH Health Related Social Needs: No Data to Display Exam Narrative Exam Narrative: well appearing older female laying in bed in no acute distress, ANO x 4, heart regular rhythm, lungs clear to auscultation bilaterally, abdomen soft, nontender, nondistended, biliary drain in place without surrounding erythema Psych Mental Status: mental status grossly normal Speech and Movement: speech and movement normal Mood: congruent mood Affect: normal affect DS: Data Vitals/I&O Vitals and I&O: Vital Signs Temperature 98.4 F 11/21/23 07:43 Temperature Source Tympanic 11/21/23 07:43 Pulse 77 11/21/23 07:43 Pulse Rhythm Regular 11/21/23 08:15 Respiratory Rate 18 11/21/23 07:43 Respiratory Effort Normal 11/21/23 08:15 Respiratory Depth Normal 11/21/23 08:15 Respiratory Pattern Normal 11/21/23 08:15 Blood Pressure 111/69 11/21/23 07:43 Blood Pressure Position Supine 11/11/23 07:01 Pulse Oximetry 95 11/21/23 07:43 Oxygen Delivery Method Room Air 11/21/23 07:43 Oxygen Flow Rate 0 11/21/23 07:43 Pain Level 6 11/21/23 08:15 Comment pT sitting up in chair at this time 11/19/23 16:51 Intake & Output 11/20/23 11/21/23 11/21/23 17:59 05:59 17:59 Intake Total 930 / 930 120 / 1050 400 / 400 Output Total Balance 920 / 920 100 / 1020 375 / 375 Weight 219 lb 2.232 oz Intake: IV 120 / 120 110 / 230 100 / 100 Oral 800 / 800 300 / 300 Injectate Right Upper Abdomen Output: Drainage Right Upper Abdomen Other: Urine Color Yellow Urine Appearance Clear Clear Urine Odor Normal Comment incontinent of large amounts of urine incontinent large amount of urine Voiding Methods Diaper Diaper Incontinent Incontinent Data Completed and Pending Labs on day of discharge: Labs from last 24 hours 11/21/23 06:22 WBC 12.27 H RBC 3.81 L Hgb 9.6 L Hct 30.0 L MCV 79 L MCH 25.2 L MCHC 32.0 RDW 16.0 H Plt Count 466 H MPV 8.3 Immature Gran % 1.0 Neutrophils % 67.2 Lymphocytes % 17.4 Monocytes % 9.8 Eosinophils % 4.3 Basophils % 0.3 Nucleated RBC % 0.0 Absolute Neutrophils 8.25 H Absolute Lymphocytes 2.13 Absolute Monocytes 1.20 H Absolute Eosinophils 0.53 Absolute Basophils 0.04 Sodium 130 L Potassium 4.3 Chloride 93 L Carbon Dioxide 27.5 Anion Gap 9.5 BUN 18 Creatinine 0.9 Est GFR (CKD-EPI 2020) 67.08 Glucose 181 H Calcium 9.0 Total Bilirubin 0.4 AST 12 L ALT 26 Alkaline Phosphatase 171 H C-Reactive Protein 6.95 H Total Protein 8.0 Albumin 2.2 L PFSH All Active Problems (Updated 11/21/23 @ 10:20 by James Reed MD) Constipation (Acute) Cough (Acute) Bacteriuria, asymptomatic (Acute) Pancreatitis (Chronic) Anemia in chronic illness (Acute) Hyponatremia (Acute) Acute cholecystitis (Acute) Transaminitis (Acute) Obesity (Chronic) Unstageable pressure ulcer of right heel (Acute) Poorly controlled type 2 diabetes mellitus with peripheral neuropathy (Acute) Diabetic foot infection (Acute) Low serum iron (Acute) Lumbar back pain with radiculopathy affecting right lower extremity (Acute) Ambulatory dysfunction (Acute) Weakness (Acute) Medical History Hypothyroid Gram-negative bacteremia Pleural effusion, left Hyperglycemia due to type 2 diabetes mellitus Urinary tract infection Palliative care patient Physician orders for life-sustaining treatment (POLST) form indicates patient wish for [id number] status ACP (advance care planning) Stroke Diabetes CHF (congestive heart failure) Surgical History History of ERCP S/P tonsillectomy Social History Smoking/Tobacco Use Status: Never Smoking risk assessment performed?: Yes Alcohol Intake: never Drug use: Never Substance use type: does not use Housing: apartment What is your relationship status?: Panel score (0-1 are the most socially isolated patients): 0 Time Spent with Patient Time Spent with Patient: <45 minutes Time was spent: preparing to see the patient(eg.review tests), obtaining and/or reviewing separately otained hiistory, ordering medications,tests, procedures, referring, communicating with other health career representative, indepentently interpreting results, counseling the patient and care coordination
--- NOTE | 2023-11-21 12:14 | NUR.NOTE ---
Nursing Note: Report called to the gerhard at this time, report given to Summer, stated she had no questions at the time of report. Patient left the building [id number].
== END 2023-11-21 12:14 | disposition skilled nursing facility (03) | DRG 444 ==
LOC: ER 10:31 → MS 11:01
PROVIDERS: Nurse Practitioner Acute Care; Surgery; Admitting Provider Internal Medicine; Emergency Provider Student in an Organized Health Care Education/Training Program; Visit Provider Internal Medicine
DX: K80.12 Calculus of gallbladder with acute and chronic cholecystitis without obstruction (principal); K85.90 Acute pancreatitis without necrosis or infection, unspecified; E87.1 Hypo-osmolality and hyponatremia; I50.32 Chronic diastolic (congestive) heart failure; N30.00 Acute cystitis without hematuria; Z16.12 Extended spectrum beta lactamase (ESBL) resistance; L97.419 Non-pressure chronic ulcer of right heel and midfoot with unspecified severity; E11.42 Type 2 diabetes mellitus with diabetic polyneuropathy; E11.65 Type 2 diabetes mellitus with hyperglycemia; E11.621 Type 2 diabetes mellitus with foot ulcer; E03.9 Hypothyroidism, unspecified; D63.8 Anemia in other chronic diseases classified elsewhere; E11.628 Type 2 diabetes mellitus with other skin complications; M54.16 Radiculopathy, lumbar region; R26.2 Difficulty in walking, not elsewhere classified; R53.1 Weakness; E61.1 Iron deficiency; R05.1 Acute cough; B96.20 Unspecified Escherichia coli [E. coli] as the cause of diseases classified elsewhere; K59.01 Slow transit constipation; R74.01 Elevation of levels of liver transaminase levels; Z86.73 Personal history of transient ischemic attack (TIA), and cerebral infarction without residual deficits; B96.1 Klebsiella pneumoniae [K. pneumoniae] as the cause of diseases classified elsewhere
CPT/HCPCS: 00123; 36415; 78227; 80048; 80053; 80061; 80076; 82805; 83690; 84145; 85027; 87077; 92526; 92610; 93005; 96361; 96365; 97110; 97162; 97530; 99223; 99231; 99232; 99238; 99285; 71045; 74160; 74177; 74221; 81003; 81015; 83605; 83735; 83880; 84443; 85025; 86140; 87070; 87086; 87186; 87205; 93010; 94640; 94667; 94668; 94760; 99222; J0131; J0295; J1170; J1644; J1815; J1940; J2185; J2405; J2543; J3490; J7620; Q9967

== ENCOUNTER 2023-11-28 20:26 | Outpatient (REF) | payer MEDICARE, MEDICAID, SELFPAY ==
[2023-11-28 19:25] LABS: Abs Immature Grans 0.07 10^3/uL (0.0-0.06); Absolute Eosinophil Count 0.49 10^3/uL (0.0-0.7); Absolute Neutrophil Count 11.19 10^3/uL (1.2-6.7); Basophils % 0.1 %; Eosinophils % 3.4 %; HGB 10.2 g/dL (11.2-15.7); Immature Grans % 0.5 %; Lymphocytes % 12.3 %; MCH 25.6 pg (27.0-33.0); MCHC 30.9 % (32.0-36.0); MCV 83 fL (80-95); MPV 9.1 fL (8.0-11.0); Monocytes % 5.3 %; Neutrophils % 78.4 %; Platelet Count 425 10^3/uL (130-400); RBC 3.99 10^6/uL (3.93-5.22); RDW-SD 48.9 fL; WBC 14.27 10^3/uL (4.4-10.8)
[2023-11-28 19:31] LABS: Absolute Basophil Count 0.01 10^3/uL (0.0-0.2); Absolute Lymphocyte Count 1.76 10^3/uL (1.2-3.4); Absolute Monocyte Count 0.76 10^3/uL (0.1-0.8)
[2023-11-28 19:44] LABS: ALT 24 U/L (14-59); AST 14 U/L (15-37); Albumin 2.9 g/dL (3.4-5.0); Alkaline Phosphatase 129 U/L (46-116); BUN 24 mg/dL (7-18); Bilirubin, Total 0.4 mg/dL (0.2-1.0); CREATININE 1.1 mg/dL (0.55-1.02); Calcium 9.2 mg/dL (8.5-10.1); Chloride 95 mmol/L (98-107); Estimated GFR 52.73 (mL/min/1.73m2); Glucose 299 mg/dL (74-106); Magnesium 1.5 mg/dL (1.8-2.4); Potassium 5.1 mmol/L (3.5-5.1); Sodium 132 mmol/L (136-145); Total Protein 7.7 g/dL (6.4-8.2)
== END 2023-11-28 20:27 | disposition home or self-care (01) ==
LOC: LBN 20:26
PROVIDERS: PCP Nurse Practitioner Gerontology; Visit Provider Nurse Practitioner Gerontology
DX: E87.1 Hypo-osmolality and hyponatremia (principal)
CPT/HCPCS: 80053; 83735; 85025

== ENCOUNTER 2023-11-28 22:56 | Inpatient (IN) | payer MEDICARE, MEDICAID, SELFPAY ==
--- NOTE | 2023-11-28 23:02 | ED.GENADUL_ITS ---
Discharge Plan Disposition Patient Disposition: Admit to [facility] Condition: Stable Discharge Details Chief Complaint: GenMedical Clinical Impression: Cholecystitis, Pneumonia Primary Care Provider: Angelika Berumen ED Provider: Norberto Grijalva Home Meds and New Rx's Prescriptions: No Action cholecalciferol (vitamin D3) 1,250 mcg (50,000 unit) capsule 1,250 mcg PO QWEEK atorvastatin 40 mg tablet 40 mg PO DAILY trazodone 50 mg tablet 50 mg PO QHS acetaminophen 500 mg Tablet 1,000 mg PO TID MDD 3000 mg Qty: 60 0RF docusate sodium [Colace] 100 mg Capsule 100 mg PO DAILY Qty: 30 0RF ferrous sulfate 325 mg (65 mg iron) Tablet 325 mg PO DAILY Qty: 30 0RF pantoprazole 40 mg Tablet,Delayed Release (Dr/Ec) 40 mg PO DAILY@0730 Qty: 10 0RF metformin 500 mg tablet 500 mg PO BIDWMEAL Qty: 60 0RF (DME) lancets [FreeStyle Lancets] 28 gauge misc See Rx Instructions .Route Qty: 100 0RF Rx Instructions: As directed (DME) blood-glucose meter [FreeStyle Lite Meter] Kit See Rx Instructions .Route Qty: 1 0RF Rx Instructions: As directed (DME) FreeStyle Lite Strips Strip See Rx Instructions .Route Qty: 100 0RF Rx Instructions: As directed levothyroxine 150 mcg tablet 150 mcg PO DAILY insulin glargine [Lantus Solostar U-100 Insulin] 100 unit/mL (3 mL) Insulin Pen 15 unit subcut QAM Qty: 15 0RF magnesium oxide 400 mg (241.3 mg magnesium) Tablet 400 mg PO DAILY Qty: 30 0RF potassium chloride [Klor-Con M20] 20 mEq Tablet,Er Particles/Crystals 20 meq PO DAILY Qty: 30 0RF insulin glargine [Lantus Solostar U-100 Insulin] 100 unit/mL (3 mL) Insulin Pen 25 unit subcut HS Qty: 15 0RF furosemide 40 mg Tablet 40 mg PO BID@0830,1600 Qty: 60 0RF spironolactone 25 mg Tablet 25 mg PO DAILY Qty: 90 0RF insulin aspart U-100 100 unit/mL (3 mL) insulin pen 1 sliding scale dose SUBCUT TID Rx Instructions: see sliding scale polyethylene glycol 3350 [ClearLax] 17 gram/dose powder 17 g PO DAILY HPI General Date/Time Provider Initiated Documentation: 11/28/23 22:57 . HPI Narrative: 73-year-old female who is a patient of the [facility] with a past medical history of type 2 diabetes, high cholesterol, mild congestive heart failure with an ejection fraction of 50%, hypothyroidism, reflux, presents today via EMS for confusion and change in drainage from her cholecystostomy tube. Patient was initially admitted by myself on 11/11/2023 for acute cholecystitis. However she had multiple comorbidities and there was significant concern/risk for performing acute cholecystectomy. The decision was made to treat with the antibiotic therapy, intervention[place] radiology [place] [facility] [place]. She initially had 4 days of Zosyn followed by 1 day of Unasyn followed by a complete 7-day course of meropenem. She had notable clinical improvement and was discharged back to the [facility] on 11/21/2023 which was 7 days ago. Since then she had been doing well until the last day or so when diminished drainage was noted coming from the cholecystostomy tube, she had increased confusion, fever at the [facility] reported at 100 degrees, and diminished energy. Patient was brought by EMS for further assessment. Vital signs are stable per EMS aside for a temporal temperature of 100.3. Patient does admit to a cough. She admits to right upper quadrant pain. She otherwise does not have any additional complaints. Related Data Home Medications Medication Instructions Recorded Confirmed atorvastatin 40 mg tablet 40 mg PO DAILY 09/04/23 11/29/23 trazodone 50 mg tablet 50 mg PO QHS 09/04/23 11/29/23 acetaminophen 500 mg tablet 1,000 mg (2 x 500 mg) PO TID #60 09/06/23 11/29/23 tabs blood sugar diagnostic (FreeStyle #100 ea 09/06/23 11/29/23 Lite Strips) blood-glucose meter (FreeStyle #1 ea 09/06/23 11/29/23 Lite Meter kit) docusate sodium 100 mg capsule 100 mg PO DAILY #30 caps 09/06/23 11/29/23 (Colace) ferrous sulfate 325 mg (65 mg 325 mg PO DAILY #30 tabs 09/06/23 11/29/23 iron) tablet lancets 28 gauge (FreeStyle #100 ea 09/06/23 11/29/23 Lancets) metformin 500 mg tablet 500 mg PO BIDWMEAL #60 tabs 09/06/23 11/29/23 pantoprazole 40 mg tablet,delayed 40 mg PO DAILY@0730 #10 tabs 09/06/23 11/29/23 release levothyroxine 150 mcg tablet 150 mcg PO DAILY 10/19/23 11/29/23 furosemide 40 mg tablet 40 mg PO BID@0830,1600 #60 tabs 10/28/23 11/29/23 insulin glargine 100 unit/mL (3 15 unit (0.15 mL) subcut QAM #15 mL 10/28/23 11/29/23 mL) subcutaneous pen (Lantus Solostar U-100 Insulin) insulin glargine 100 unit/mL (3 25 unit (0.25 mL) subcut HS #15 mL 10/28/23 11/29/23 mL) subcutaneous pen (Lantus Solostar U-100 Insulin) magnesium oxide 400 mg (241.3 mg 400 mg PO DAILY #30 tabs 10/28/23 11/29/23 magnesium) tablet potassium chloride 20 mEq 20 meq PO DAILY #30 tabs 10/28/23 11/29/23 tablet,extended release(part/cryst) (Klor-Con M) spironolactone 25 mg tablet 25 mg PO DAILY #90 tabs 11/21/23 11/29/23 cholecalciferol (vitamin D3) 1,250 1,250 mcg PO QWEEK 11/28/23 11/29/23 mcg (50,000 unit) capsule insulin aspart U-100 100 unit/mL 1 sliding scale dose subcut TID 11/29/2311/28 (3 mL) subcutaneous pen polyethylene glycol 3350 17 17 g PO DAILY 11/29/23 11/29/23 gram/dose oral powder (ClearLax) Previous Rx's Medication Instructions Recorded acetaminophen 500 mg tablet 1,000 mg (2 x 500 mg) PO TID #60 09/06/23 tabs blood sugar diagnostic (FreeStyle #100 ea 09/06/23 Lite Strips) blood-glucose meter (FreeStyle #1 ea 03/19/24 Lite Meter kit) docusate sodium 100 mg capsule 100 mg PO DAILY #30 caps 09/06/23 (Colace) ferrous sulfate 325 mg (65 mg 325 mg PO DAILY #30 tabs 09/06/23 iron) tablet lancets 28 gauge (FreeStyle #100 ea 09/06/23 Lancets) metformin 500 mg tablet 500 mg PO BIDWMEAL #60 tabs 09/06/23 pantoprazole 40 mg tablet,delayed 40 mg PO DAILY@0730 #10 tabs 09/06/23 release furosemide 40 mg tablet 40 mg PO BID@0830,1600 #60 tabs 10/28/23 insulin glargine 100 unit/mL (3 15 unit (0.15 mL) subcut QAM #15 mL 10/28/23 mL) subcutaneous pen (Lantus Solostar U-100 Insulin) insulin glargine 100 unit/mL (3 25 unit (0.25 mL) subcut HS #15 mL 10/28/23 mL) subcutaneous pen (Lantus Solostar U-100 Insulin) magnesium oxide 400 mg (241.3 mg 400 mg PO DAILY #30 tabs 10/28/23 magnesium) tablet potassium chloride 20 mEq 20 meq PO DAILY #30 tabs 10/28/23 tablet,extended release(part/cryst) (Klor-Con M) spironolactone 25 mg tablet 25 mg PO DAILY #90 tabs 11/21/23 Allergies Allergy/AdvReac Type Severity Reaction Status Date / Time No Known Allergies Allergy Verified 11/29/23 00:40 General TRINIDAD: 3 Review of Systems All systems reviewed & are unremarkable except as noted in HPI and below Exam Narrative Exam Narrative: 1.Const: Well-nourished, Well-developed, appearing stated age 2.Eyes: PERRL, no conjunctival injection, and symmetrical lids. 3.ENT: Atraumatic external nose and ears. Moist MM. Neck: Symmetric, trachea midline, No thyromegaly. 4.CVS: +S1/S2, No murmurs or gallops. Peripheral pulses 2+ and equal in all extremities. Brisk capillary refill in all extremities. 5.RESP: Crackles in the left lower lung shepherd. No wheezes or rhonchi. 6.GI: Soft, nondistended, mild right upper quadrant tenderness on palpation. Cholecystostomy tube is in place with white/yellow drainage 7.MSK: Normocephalic/Atraumatic, Extremities w/o deformity or ttp No cyanosis or clubbing, Normal movement of all extremities 8.Skin: Warm, Dry. No rashes or lesions. 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 Sensation grossly intact, no focal neurologic deficits. 10.Psych: (AAO) x3. Appropriate mood and affect Medical Decision Making 73-year-old female who is a patient of the [facility] with a past medical history of type 2 diabetes, high cholesterol, mild congestive heart failure with an ejection fraction of 50%, hypothyroidism, reflux, presents today via EMS for confusion and change in drainage from her cholecystostomy tube. Patient was initially admitted by myself on 11/11/2023 for acute cholecystitis. However she had multiple comorbidities and there was significant concern/risk for performing acute cholecystectomy. The decision was made to treat with the antibiotic t herapy, interventional radiology [place]2023 [place] [facility] [place]. She initially had 4 days of Zosyn followed by 1 day of Unasyn followed by a complete 7-day course of meropenem. She had notable clinical improvement and was discharged back to the [facility] on 11/21/2023 which was 7 days ago. Since then she had been doing well until the last day or so when diminished drainage was noted coming from the cholecystostomy tube, she had increased confusion, fever at the [facility] reported at 100 degrees, and diminished energy. Patient was brought by EMS for further assessment. Vital signs are stable per EMS aside for a temporal temperature of 100.3. Patient does admit to a cough. She admits to right upper quadrant pain. She otherwise does not have any additional complaints. Exam demonstrates stable female, mild tachycardia, afebrile here, O2 is between 91 and 94%. Mild right upper quadrant tenderness, cholecystostomy tube is draining white/yellow material. Mild inguinal fungal irritation. Crackles in the left lower lung field. Because of fever and confusion and weakness is broad but could be worsening gallbladder pathology, pneumonia, urinary tract i nfection. We will evaluate for these etiologies, very gently rehydrate, monitor closely and reassess. 3:05 AM Laboratory workup shows stable transaminases and bilirubin, however notably elevated white count at 27.9, notable left shift but no bandemia yet. Lactate slightly elevated at 2. Electrolytes stable, renal function stable. Procalcitonin mildly elevated at 0.1. CT scan shows evidence of atelectasis and early pneumonia in the lungs, the cholecystostomy tube appears to be well- placed, some mild fluid-filled loops of small bowel suggesting enteritis. Purulent pus still seems to be coming out of the drainage tube itself. Suspect the gallbladder and return of infection to be the cause of the white count, however pneumonia is also on the differential. We will give vancomycin and Unasyn, the patient's E. coli. To be sensitive to Unasyn unless cultures. I did discuss the case with the surgeon Dr. Santacruz, who accepts the patient for admission. I will place admission orders on his behalf. I did discuss this with the patient and she seems to understand well what is going on and agrees to surgery. That being said she does appear stable at this time, heart rate is 100, blood pressure stable with no evidence of hypotension or septic shock at this time. Out of an abundance of precaution we will admit her to the ICU. Patient did receive a 500 cc bolus initially, will continue fluids at a very slow rate secondary to her congestive heart failure. Review of recent echo shows an EF of 50%. She has received antibiotics here. Patient will be admitted to the ICU. I have extensively reviewed the treatment plan with the patient. I have addressed all patient concerns at this time. I have also discussed the plan with the admitting physician and they agree with the current assessment and plan and have agreed to assume responsibility for the patient. All parties demonstrate verbal understanding and agreement with our assessment and plan at this time. The documentation in this chart was dictated using [employer] dictation software. Please excuse any dictation errors. FINDINGS: Lungs: Patchy atelectatic changes and consolidation left lower lobe of the lung early pneumonia is not excluded. Scattered patchy ground-glass opacities within the lungs. These findings are nonspecific and may represent hypoventilatory change,edema, hemorrhage, or an infectious/inflammatory process (acute or chronic). There is heterogeneous attenuation of the pulmonary parenchyma, consistent with air trapping from underlying small airways disease. Pleural spaces: There is no evidence of pneumothorax. There are no pleural effusions present. Heart: Unremarkable. No cardiomegaly. No pericardial effusion. Coronary arteries: There is moderate atherosclerotic calcification of the coronary arteries. Lymph nodes: Unremarkable. No enlarged lymph nodes. Vasculature: The aorta demonstrates mild atherosclerotic calcification. Mild atherosclerosis of the great vessels. Intraperitoneal space: Please see CT of the abdomen and pelvis. Bones/joints: The thoracic spine demonstrates mild degenerative changes at multiple levels. Soft tissues: Unremarkable. IMPRESSION: 1. Patchy atelectatic changes and consolidation left lower lobe of the lung early pneumonia is not excluded. 2. Scattered patchy ground-glass opacities within the lungs. These findings are nonspecific and may represent hypoventilatory change,edema, hemorrhage, or an infectious/inflammatory process (acute or chronic). 3. There is heterogeneous attenuation of the pulmonary parenchyma, consistent with air trapping from underlying small airways disease. FINDINGS: Tubes, catheters and devices: There is a percutaneous cholecystostomy tube present in good position at the level of the gallbladder lumen. The proximal side-hole marker lies just at the abdominal wall and a few of the sideholes lie within the liver parenchyma correlation is made to the original positioning of the catheter recommended. Lungs: Please see CT of the chest and lungs Liver: There are no focal liver lesions present. The liver is enlarged measuring 20 cm. Gallbladder and bile ducts: There is a percutaneous cholecystostomy tube present in good position at the level of the gallbladder lumen. The proximal side-hole marker lies just at the abdominal wall and a few of the sideholes lie within the liver parenchyma correlation is made to the original positioning of the catheter recommended. There is no evidence of intrahepatic or extrahepatic biliary ductal dilation. Pancreas: There is mild pancreatic atrophy and fatty replacement. Spleen: The spleen is normal. Adrenal glands: The adrenal glands are normal. Kidneys and ureters: The kidneys are normal. Stomach and bowel: There is moderate increased colonic fecal content. The colon is mildly distended. These findings suggest a moderate degree of constipation. Clinical correlation recommended. Mild diverticulosis is present in the sigmoid and descending colon. There are fluidfilled loops of small bowel with air-fluid levels. No significant bowel wall thickening or inflammatory changes. No evidence of obstruction. Consider early enteritis. Appendix: There is no evidence of appendicitis. Intraperitoneal space: There is no free intraperitoneal air. There is no evidence of free intraperitoneal or pelvic fluid. Vasculature: The aorta demonstrates mild atherosclerotic calcification. The arterial peripheral vasculature demonstrates diffuse mild atherosclerotic calcification. The inferior venacava appears normal.The portal, mesenteric and splenic veins are patent. Lymph nodes: There is no evidence of lymphadenopathy. Urinary bladder: There is nonspecific bladder wall thickening. This may be related to incomplete bladder filling. Reproductive: The uterus is normal. The ovaries are normal. Bones/joints: The lumbar spine demonstrates moderate degenerative changes. Mild degenerative changes of the hips bilaterally. Soft tissues: Small fluid collection within the patient's pannus along the left anterior abdominal wall. IMPRESSION: 1. There is a percutaneous cholecystostomy tube present in good position at the level of the gallbladder lumen. The proximal side-hole marker lies just at the abdominal wall and a few of the sideholes lie within the liver parenchyma correlation is made to the original positioning of the catheter recommended. 2. There are fluid-filled loops of small bowel with air-fluid levels. No significant bowel wall thickening or inflammatory changes. No evidence of obstruction. Consider early enteritis. 3. Constipation. Thank you for allowing us to participate in the care of your patient. Dictated and Authenticated by: Melvin Yan MD 11/29/2023 1:54 AM Eastern Time ([place] & [place]) Quality:SDOH Health Related Social Needs: No Data to Display PFSH All Active Problems (Updated 11/29/23 @ 03:09 by Norberto Grijalva DO) Pneumonia (Acute) Cholecystitis (Acute) Anemia in chronic illness (Acute) Transaminitis (Acute) Obesity (Chronic) Unstageable pressure ulcer of right heel (Acute) Poorly controlled type 2 diabetes mellitus with peripheral neuropathy (Acute) Diabetic foot infection (Acute) Low serum iron (Acute) Lumbar back pain with radiculopathy affecting right lower extremity (Acute) Ambulatory dysfunction (Acute) Weakness (Acute) Medical History Hypothyroid Gram-negative bacteremia Pleural effusion, left Hyperglycemia due to type 2 diabetes mellitus Urinary tract infection Palliative care patient Physician orders for life-sustaining treatment (POLST) form indicates patient wish for [id number] status ACP (advance care planning) Stroke Diabetes CHF (congestive heart failure) Surgical History History of ERCP S/P tonsillectomy Social History Smoking/Tobacco Use Status: Never Smoking risk assessment performed?: Yes Alcohol Intake: never Drug use: Never Substance use type: does not use Housing: [facility] What is your relationship status?: Panel score (0-1 are the most socially isolated patients): 0 Do you feel safe at home: Yes Do you feel safe in your relationship?: Yes
[2023-11-28 23:34] VITALS: BP 135/65; PULSE 108; RESP 19; TEMP 36.9; O2SAT 91
[2023-11-28 23:42] VITALS: BP 136/62; PULSE 103; RESP 18; RESP 20; O2SAT 94
[2023-11-28 23:44] VITALS: PULSE 104; RESP 32
[2023-11-28 23:45] VITALS: BP 122/56; PULSE 102; PULSE 103; RESP 29
[2023-11-29] VITALS (39 sets, daily range): BP systolic 98–147; BP diastolic 52–81; PULSE 48–110; RESP 20–35; TEMP 36–37.5; O2SAT 91–98; BMI 39.8
[2023-11-29] MEDS: Omnipaque 350 MG/ML 100 ML BTL IJ (00:02)
[2023-11-29] MEDS: Normal Saline - Diluent 50 ML VIAL IJ (00:03)
[2023-11-29] MEDS: Normal Saline Flush 10 ML SYR IVP ×3 (00:03→21:28)
[2023-11-29 00:07] LABS: Abs Immature Grans 0.23 10^3/uL (0.0-0.06); Absolute Basophil Count 0.06 10^3/uL (0.0-0.2); Basophils % 0.2 %; Eosinophils % 1.4 %; HCT 31.4 % (36.0-46.0); HGB 10.3 g/dL (11.2-15.7); Immature Grans % 0.8 %; Lymphocytes % 4.7 %; MCH 25.9 pg (27.0-33.0); MCHC 32.8 % (32.0-36.0); MCV 79 fL (80-95); MPV 8.5 fL (8.0-11.0); Neutrophils % 87.9 %; Platelet Count 384 10^3/uL (130-400); RBC 3.97 10^6/uL (3.93-5.22); RDW 15.9 % (11.7-14.6); RDW-SD 45.8 fL
[2023-11-29 00:08] LABS: Absolute Eosinophil Count 0.39 10^3/uL (0.0-0.7); Absolute Lymphocyte Count 1.31 10^3/uL (1.2-3.4); Absolute Neutrophil Count 24.53 10^3/uL (1.2-6.7)
[2023-11-29 00:09] LABS: WBC 27.91 10^3/uL (4.4-10.8)
[2023-11-29 00:25] LABS: Bilirubin, Direct 0.2 mg/dL (0.0-0.2)
[2023-11-29 00:27] LABS: ALT 22 U/L (14-59); AST 11 U/L (15-37); Albumin 2.8 g/dL (3.4-5.0); Alkaline Phosphatase 129 U/L (46-116); Anion Gap 9.2 mmol/L (3-11); BUN 22 mg/dL (7-18); Bilirubin, Total 0.5 mg/dL (0.2-1.0); CO2 28.8 mmol/L (21.0-32.0); Calcium 9.1 mg/dL (8.5-10.1); Chloride 93 mmol/L (98-107); Estimated GFR 59.12 (mL/min/1.73m2); Glucose 236 mg/dL (74-106); Potassium 4.3 mmol/L (3.5-5.1); Sodium 131 mmol/L (136-145); Total Protein 8.3 g/dL (6.4-8.2)
[2023-11-29 00:32] LABS: Diff Comment Diff Reviewed; RBC Morphology Normal
[2023-11-29 00:42] LABS: Procalcitonin 0.1 ng/mL
[2023-11-29] MEDS: Normal Saline 500 ML IV (01:15)
--- NOTE | 2023-11-29 01:54 | DI.VRAD_ITS ---
PROCEDURE INFORMATION: Exam: CT Chest With Contrast; Diagnostic Exam date and time: 11/29/2023 12:06 AM Age: 73 years old Clinical indication: Abdominal pain; Generalized; Prior surgery; Surgery date: <1 month; Surgery type: Cholecystostomy tube November 15; Patient HX: Cough, fever, ruq pain , w/ cholecystostomy tube; Additional info: Some images repeated due to motion TECHNIQUE: Imaging protocol: Diagnostic computed tomography of the chest with contrast. 3D rendering (Not supervised by radiologist): MIP and/or 3D reconstructed images were created by the technologist. Radiation optimization: All CT scans at this facility use at least one of these dose optimization techniques: automated exposure control; mA and/or kV adjustment per patient size (includes targeted exams where dose is matched to clinical indication); or iterative reconstruction. Contrast material: OMNIPAQUE 350; Contrast volume: 100 ml; Contrast route: INTRAVENOUS (IV); COMPARISON: CT CHEST PE CTA 10/24/2023 3:59 AM FINDINGS: Lungs: Patchy atelectatic changes and consolidation left lower lobe of the lung early pneumonia is not excluded. Scattered patchy ground-glass opacities within the lungs. These findings are nonspecific and may represent hypoventilatory change,edema, hemorrhage, or an infectious/inflammatory process (acute or chronic). There is heterogeneous attenuation of the pulmonary parenchyma, consistent with air trapping from underlying small airways disease. Pleural spaces: There is no evidence of pneumothorax. There are no pleural effusions present. Heart: Unremarkable. No cardiomegaly. No pericardial effusion. Coronary arteries: There is moderate atherosclerotic calcification of the coronary arteries. Lymph nodes: Unremarkable. No enlarged lymph nodes. Vasculature: The aorta demonstrates mild atherosclerotic calcification. Mild atherosclerosis of the great vessels. Intraperitoneal space: Please see CT of the abdomen and pelvis. Bones/joints: The thoracic spine demonstrates mild degenerative changes at multiple levels. Soft tissues: Unremarkable. IMPRESSION: 1. Patchy atelectatic changes and consolidation left lower lobe of the lung early pneumonia is not excluded. 2. Scattered patchy ground-glass opacities within the lungs. These findings are nonspecific and may represent hypoventilatory change,edema, hemorrhage, or an infectious/inflammatory process (acute or chronic). 3. There is heterogeneous attenuation of the pulmonary parenchyma, consistent with air trapping from underlying small airways disease. PROCEDURE INFORMATION: Exam: CT Abdomen And Pelvis With Contrast Exam date and time: 11/29/2023 12:06 AM Age: 73 years old Clinical indication: Abdominal pain; Generalized; Prior surgery; Surgery date: <1 month; Surgery type: Cholecystostomy tube November 15; Patient HX: Cough, fever, ruq pain , w/ cholecystostomy tube; Additional info: Some images repeated due to motion TECHNIQUE: Imaging protocol: Computed tomography of the abdomen and pelvis with contrast. 3D rendering (Not supervised by radiologist): MIP and/or 3D reconstructed images were created by the technologist. Radiation optimization: All CT scans at this facility use at least one of these dose optimization techniques: automated exposure control; mA and/or kV adjustment per patient size (includes targeted exams where dose is matched to clinical indication); or iterative reconstruction. Contrast material: OMNIPAQUE 350; Contrast volume: 100 ml; Contrast route: INTRAVENOUS (IV); COMPARISON: CT ABDOMEN W 11/14/2023 8:24 AM FINDINGS: Tubes, catheters and devices: There is a percutaneous cholecystostomy tube present in good position at the level of the gallbladder lumen. The proximal side-hole marker lies just at the abdominal wall and a few of the sideholes lie within the liver parenchyma correlation is made to the original positioning of the catheter recommended. Lungs: Please see CT of the chest and lungs. Liver: There are no focal liver lesions present. The liver is enlarged measuring 20 cm. Gallbladder and bile ducts: There is a percutaneous cholecystostomy tube present in good position at the level of the gallbladder lumen. The proximal side-hole marker lies just at the abdominal wall and a few of the sideholes lie within the liver parenchyma correlation is made to the original positioning of the catheter recommended. There is no evidence of intrahepatic or extrahepatic biliary ductal dilation. Pancreas: There is mild pancreatic atrophy and fatty replacement. Spleen: The spleen is normal. Adrenal glands: The adrenal glands are normal. Kidneys and ureters: The kidneys are normal. Stomach and bowel: There is moderate increased colonic fecal content. The colon is mildly distended. These findings suggest a moderate degree of constipation. Clinical correlation recommended. Mild diverticulosis is present in the sigmoid and descending colon. There are fluid-filled loops of small bowel with air-fluid levels. No significant bowel wall thickening or inflammatory changes. No evidence of obstruction. Consider early enteritis. Appendix: There is no evidence of appendicitis. Intraperitoneal space: There is no free intraperitoneal air. There is no evidence of free intraperitoneal or pelvic fluid. Vasculature: The aorta demonstrates mild atherosclerotic calcification. The arterial peripheral vasculature demonstrates diffuse mild atherosclerotic calcification. The inferior venacava appears normal.The portal, mesenteric and splenic veins are patent. Lymph nodes: There is no evidence of lymphadenopathy. Urinary bladder: There is nonspecific bladder wall thickening. This may be related to incomplete bladder filling. Reproductive: The uterus is normal. The ovaries are normal. Bones/joints: The lumbar spine demonstrates moderate degenerative changes. Mild degenerative changes of the hips bilaterally. Soft tissues: Small fluid collection within the patient's pannus along the left anterior abdominal wall. IMPRESSION: 1. There is a percutaneous cholecystostomy tube present in good position at the level of the gallbladder lumen. The proximal side-hole marker lies just at the abdominal wall and a few of the sideholes lie within the liver parenchyma correlation is made to the original positioning of the catheter recommended. 2. There are fluid-filled loops of small bowel with air-fluid levels. No significant bowel wall thickening or inflammatory changes. No evidence of obstruction. Consider early enteritis. 3. Constipation. Dictated and Authenticated by: Melvin Yan MD. Ordering:ED Thornton MD
[2023-11-29] MEDS: AMPICILLIN/SULBACTAM 3 GM in Normal Saline 100 ML IVPB (02:25)
[2023-11-29] MEDS: VANCOMYCIN 2,000 MG in Normal Saline 500 ML 333.3333 MG IVPB (02:26)
[2023-11-29 02:55] LABS: Lipase 48 U/L (16-77)
[2023-11-29 02:57] LABS: Bilirubin Negative (Negative); Blood Trace-intact (Negative); Clarity Cloudy (Clear); Glucose Negative (Negative); Ketones Negative (Negative); Leukocyte Esterase Negative (Negative); Nitrite Negative (Negative); Specific Gravity 1.015 (1.005-1.025)
[2023-11-29 03:06] LABS: Bacteria Moderate HPF (Negative); C & S Indicated? No/Sq. Contamination; Crystals Negative HPF (Negative); Epithelial Cells Moderate HPF (Negative); Mucus Negative (Negative); WBC 20-50 HPF (0-5)
--- NOTE | 2023-11-29 03:27 | W.PC.ACHO ---
Registration Status: REG ER Primary Language: Preferred Language: ED Information & Data Chief Complaint GenMedical 11/28/23 23:42 Chief Complaint GenMedical 11/28/23 23:34 Triage Note Surgical site has had yellow 11/28/23 23:34 drainage last couple days, worsening over the last day. Concerned for infection. Pt acting normal. Medical / Surgical History (Last Reviewed 11/28/23 @ 23:05 by Norberto Grijalva DO) Hypothyroid Gram-negative bacteremia Pleural effusion, left Hyperglycemia due to type 2 diabetes mellitus Urinary tract infection Palliative care patient Physician orders for life-sustaining treatment (POLST) form indicates patient wish for [id number] status ACP (advance care planning) Stroke Diabetes CHF (congestive heart failure) (Last Reviewed 11/28/23 @ 23:05 by Norberto Grijalva DO) History of ERCP S/P tonsillectomy Most Recent Vital Signs Temperature 36.9 C 11/28/23 23:34 Temperature Source Oral 11/28/23 23:34 Pulse 102 H 11/28/23 23:45 Pulse 103 H 11/28/23 23:45 Respiratory Rate 20 11/29/23 01:19 Respiratory Effort Normal, Non-Labored 11/29/23 01:19 Respiratory Depth Normal 11/29/23 01:19 Respiratory Pattern Normal 11/29/23 01:19 Blood Pressure 122/56 L 11/28/23 23:45 Blood Pressure Mean 76 11/28/23 23:45 Blood Pressure Position Supine 11/28/23 23:42 Pulse Oximetry 93 11/29/23 01:19 Oxygen Delivery Method Nasal Cannula 11/29/23 01:19 Oxygen Flow Rate 2 11/29/23 01:19 Allergies No Known Allergies Allergy (Verified 11/29/23 00:40) Precautions Isolation Standard precaution 11/28/23 23:42 Active Medications Generic Name Dose Route Start Last Admin Trade Name Freq PRN Reason Stop Dose Admin Vancomycin HCl 2,000 mg/ 500 mls @ 333.3333 mls/hr 11/29/23 02:00 11/29/23 02:26 Sodium Chloride IVPB 11/29/23 03:29 333.3333 mls/hr STAT STA Administration Iohexol 100 ml 11/29/23 00:15 11/29/23 00:02 Omnipaque 350 Mg/Ml 100 Ml Btl IJ 12/29/23 23:59 100 ml DIRECTED BRENDA Administration Sodium Chloride 50 ml 11/29/23 00:15 11/29/23 00:03 Normal Saline - Diluent 50 Ml Vial IJ 50 ml .FOR DI USE BRENDA Administration Sodium Chloride 0 ml 11/29/23 00:03 11/29/23 00:03 Normal Saline Flush 10 Ml Syr IVP 10 ml PRN PRN Administration IV IV Catheter Type [Left Saline Lock Antecubital] IV Catheter Type [Right Saline Lock Antecubital] IV Catheter Gauge [Left 18 Antecubital] IV Catheter Gauge [Right 20 Antecubital] Diagnostics 11/29/23 11/29/23 11/29/23 Range/Units 05:35 03:05 02:47 WBC (4.4-10.8) 10^3/uL RBC (3.93-5.22) 10^6/uL Hgb (11.2-15.7) g/dL Hct (36.0-46.0) % MCV (80-95) fL MCH (27.0-33.0) pg MCHC (32.0-36.0) % RDW (11.7-14.6) % Plt Count (130-400) 10^3/uL MPV (8.0-11.0) fL Immature Gran % % Neutrophils % % Lymphocytes % % Monocytes % % Eosinophils % % Basophils % % Nucleated RBC % (0.0-0.3) % Absolute Neutrophils (1.2-6.7) 10^3/uL Absolute Lymphocytes (1.2-3.4) 10^3/uL Absolute Monocytes (0.1-0.8) 10^3/uL Absolute Eosinophils (0.0-0.7) 10^3/uL Absolute Basophils (0.0-0.2) 10^3/uL RBC Morphology PT Pending INR Pending APTT Pending VBG Lactate (0.6-1.4) mmol/L Sodium Pending (136-145) mmol/L Potassium Pending (3.5-5.1) mmol/L Chloride Pending (98-107) mmol/L Carbon Dioxide Pending (21.0-32.0) mmol/L Anion Gap Pending (3-11) mmol/L BUN Pending (7-18) mg/dL Creatinine Pending (0.55-1.02) mg/dL Est GFR (CKD-EPI 2020) Pending (mL/min/1.73m2) Glucose Pending (74-106) mg/dL Calcium Pending (8.5-10.1) mg/dL Total Bilirubin Pending (0.2-1.0) mg/dL Conjugated Bilirubin (0.0-0.2) mg/dL AST Pending (15-37) U/L ALT Pending (14-59) U/L Alkaline Phosphatase Pending (46-116) U/L Total Protein Pending (6.4-8.2) g/dL Albumin Pending (3.4-5.0) g/dL Lipase (16-77) U/L Procalcitonin ng/mL Urine Color Yellow (Yellow) Urine Clarity Cloudy (Clear) Urine pH 7.0 (5-8) Ur Specific Perry 1.015 (1.005-1.025) Urine Protein Negative (Neg-Trace) mg/dL Urine Ketones Negative (Negative) mg/dL Urine Blood Trace-intact H (Negative) Urine Nitrite Negative (Negative) Urine Bilirubin Negative (Negative) Urine Urobilinogen 1.0 H (Up to 0.2) mg/dL Ur Leukocyte Esterase Negative (Negative) Urine RBC 3-5 H (0-2) HPF Urine WBC 20-50 H (0-5) HPF Ur Epithelial Cells Moderate (Negative) HPF Urine Crystals Negative (Negative) HPF Urine Bacteria Moderate (Negative) HPF Urine Mucus Negative (Negative) Ur Culture Indicated? No/Sq. Contamination Urine Glucose Negative (Negative) mg/dL MRSA (TEM-PCR) Pending 11/28/23 Range/Units 23:48 WBC 27.91 H* (4.4-10.8) 10^3/uL RBC 3.97 (3.93-5.22) 10^6/uL Hgb 10.3 L (11.2-15.7) g/dL Hct 31.4 L (36.0-46.0) % MCV 79 L D (80-95) fL MCH 25.9 L (27.0-33.0) pg MCHC 32.8 (32.0-36.0) % RDW 15.9 H (11.7-14.6) % Plt Count 384 (130-400) 10^3/uL MPV 8.5 (8.0-11.0) fL Immature Gran % 0.8 % Neutrophils % 87.9 % Lymphocytes % 4.7 % Monocytes % 5.0 % Eosinophils % 1.4 % Basophils % 0.2 % Nucleated RBC % 0.0 (0.0-0.3) % Absolute Neutrophils 24.53 H (1.2-6.7) 10^3/uL Absolute Lymphocytes 1.31 (1.2-3.4) 10^3/uL Absolute Monocytes 1.40 H (0.1-0.8) 10^3/uL Absolute Eosinophils 0.39 (0.0-0.7) 10^3/uL Absolute Basophils 0.06 (0.0-0.2) 10^3/uL RBC Morphology Normal PT INR APTT VBG Lactate 2.0 H (0.6-1.4) mmol/L Sodium 131 L (136-145) mmol/L Potassium 4.3 (3.5-5.1) mmol/L Chloride 93 L (98-107) mmol/L Carbon Dioxide 28.8 (21.0-32.0) mmol/L Anion Gap 9.2 (3-11) mmol/L BUN 22 H (7-18) mg/dL Creatinine 1.0 (0.55-1.02) mg/dL Est GFR (CKD-EPI 2020) 59.12 (mL/min/1.73m2) Glucose 236 H (74-106) mg/dL Calcium 9.1 (8.5-10.1) mg/dL Total Bilirubin 0.5 (0.2-1.0) mg/dL Conjugated Bilirubin 0.2 (0.0-0.2) mg/dL AST 11 L (15-37) U/L ALT 22 (14-59) U/L Alkaline Phosphatase 129 H (46-116) U/L Total Protein 8.3 H (6.4-8.2) g/dL Albumin 2.8 L (3.4-5.0) g/dL Lipase 48 (16-77) U/L Procalcitonin 0.1 ng/mL Urine Color (Yellow) Urine Clarity (Clear) Urine pH (5-8) Ur Specific Perry (1.005-1.025) Urine Protein (Neg-Trace) mg/dL Urine Ketones (Negative) mg/dL Urine Blood (Negative) Urine Nitrite (Negative) Urine Bilirubin (Negative) Urine Urobilinogen (Up to 0.2) mg/dL Ur Leukocyte Esterase (Negative) Urine RBC (0-2) HPF Urine WBC (0-5) HPF Ur Epithelial Cells (Negative) HPF Urine Crystals (Negative) HPF Urine Bacteria (Negative) HPF Urine Mucus (Negative) Ur Culture Indicated? Urine Glucose (Negative) mg/dL MRSA (TEM-PCR) 11/28/23 23:42 Blood Culture - Pending Blood 11/28/23 23:48 Blood Culture - Pending Blood Intake and Output - 24 Hour Total 11/28/23 22:56 thru 11/29/23 03:06 Intake Total 600 Balance 600 Weight 102.8 kg Intake: IV 600 Falls Risk Assessment History of Falls No History 11/28/23 23:42 Contributing Factors Impairments 11/28/23 23:42 Ambulatory Aids Uses ambulatory device 11/28/23 23:42 Tubes/Lines None 11/28/23 23:42 Gait Evaluation No gait disturbance 11/28/23 23:42 Cognition No cognitive impairment 11/28/23 23:42 Fall Total Score 18 11/28/23 23:42 Level of Risk Standard/Low Risk 11/28/23 23:42 v v v v v v v v v Sending and/or Receiving Nurses: Please use comment section below to note any information pertinent to the patient hand-off not included above. Information / Comments: Report received from: JANET Demarco
[2023-11-29 04:34] LABS: MRSA PCR Positive (Negative)
--- NOTE | 2023-11-29 05:50 | W.PM.HP.N ---
Date of service: 11/29/23 Time of Service: 04:55 Assessment and Plan Assessment and plan (1) Cholecystitis: Status: Acute Assessment and plan: (a) Cholecystostomy tube in place. (b) E.coli per 11/15 bile culture sensitive to Unasyn; Unasyn started. (c) Serology PCR positive for MRSA; Vanco started. (d) Will consult Hospitalist for pre-op eval. (e) Will discuss case with Anesthesia to determine if open Cholecystectomy can be offered today. (2) Pneumonia: Status: Acute Assessment and plan: (a) Have started Unasyn for antibiotics coverage, may need additional agent(s). (3) Poorly controlled type 2 diabetes mellitus with peripheral neuropathy: Status: Acute Assessment and plan: (a) Will pursue optimal control; Accuchecks and sliding scale. History of Present Illness History of Present Illness Chief Complaint: Right upper quadrant pain, cough Narrative: This 73y/o female presented to [facility] Emergency Department from [facility] with complaint of abdominal pain and cough. She previously was admitted here November 10 with acute cholecystitis. She was deemed a poor surgical candidate due to multiple comorbidities. She underwent placement of a percutaneous cholecystostomy tube at [facility] on November 15. She subsequently improved and was discharged from [facility] on November 17. In the ED, she was found to have leukocytosis with WBC of 28,000 with purulent drainage noted from her cholecystostomy tube. LFT's and lipase are essentially normal. CT Scan of the abdomen demonstrated no biliary ductal dilation. CT Scan of the chest suggested left lower lobe infiltrate, possibly pneumonia. Serology PCR was positive for MRSA. She has been give first dose of Vanco. Bile cultured on November 17 grew two species of E. coli, both susceptible to Unasyn, so this has been started as well. Review of Systems Cardiovascular Comments: Hx of CHF; EF reportedly around 50% Respiratory Comments: Cough. CT Scan findings suggestive for pneumonia Gastrointestinal Comments: Cholecystitis with cholecystostomy tube placement on 11/16/2023 Neurologic Comments: Medical record reports history of stroke Endocrine Comments: Diabetes; poorly controlled. [facility] All Active Problems (Updated 11/29/23 @ 03:40 by JUAN DANIEL OROZCO) Pneumonia (Acute) Cholecystitis (Acute) Anemia in chronic illness (Acute) Transaminitis (Acute) Obesity (Chronic) Unstageable pressure ulcer of right heel (Acute) Poorly controlled type 2 diabetes mellitus with peripheral neuropathy (Acute) Diabetic foot infection (Acute) Low serum iron (Acute) Lumbar back pain with radiculopathy affecting right lower extremity (Acute) Ambulatory dysfunction (Acute) Weakness (Acute) Medical History Hypothyroid Gram-negative bacteremia Pleural effusion, left Hyperglycemia due to type 2 diabetes mellitus Urinary tract infection Palliative care patient Physician orders for life-sustaining treatment (POLST) form indicates patient wish for [id number] status ACP (advance care planning) Stroke Diabetes CHF (congestive heart failure) Surgical History History of ERCP S/P tonsillectomy Social History Smoking/Tobacco Use Status: Never Smoking risk assessment performed?: Yes Alcohol Intake: never Drug use: Never Substance use type: does not use [facility] What is your relationship status?: Panel score (0-1 are the most socially isolated patients): 0 Do you feel safe at home: Yes Do you feel safe in your relationship?: Yes Meds Allergies and Home Medications Allergies Allergy/AdvReac Type Severity Reaction Status Date / Time No Known Allergies Allergy Verified 11/29/23 00:40 Home Medications Medication Instructions Recorded Confirmed Type atorvastatin 40 mg tablet 40 mg PO DAILY 09/04/23 11/29/23 History trazodone 50 mg tablet 50 mg PO QHS 09/04/23 11/29/23 History acetaminophen 500 mg tablet 1,000 mg (2 x 500 mg) PO TID #60 09/06/23 11/29/23 Rx tabs blood sugar diagnostic (FreeStyle #100 ea 09/06/23 11/29/23 Rx Lite Strips) blood-glucose meter (FreeStyle #1 ea 09/06/23 11/29/23 Rx Lite Meter kit) docusate sodium 100 mg capsule 100 mg PO DAILY #30 caps 09/06/23 11/29/23 Rx (Colace) ferrous sulfate 325 mg (65 mg 325 mg PO DAILY #30 tabs 09/06/23 11/29/23 Rx iron) tablet lancets 28 gauge (FreeStyle #100 ea 09/06/23 11/29/23 Rx Lancets) metformin 500 mg tablet 500 mg PO BIDWMEAL #60 tabs 09/06/23 11/29/23 Rx pantoprazole 40 mg tablet,delayed 40 mg PO DAILY@0730 #10 tabs 09/06/23 11/29/23 Rx release levothyroxine 150 mcg tablet 150 mcg PO DAILY 10/19/23 11/29/23 History furosemide 40 mg tablet 40 mg PO BID@0830,1600 #60 tabs 10/28/23 11/29/23 Rx insulin glargine 100 unit/mL (3 15 unit (0.15 mL) subcut QAM #15 mL 10/28/23 11/29/23 Rx mL) subcutaneous pen (Lantus Solostar U-100 Insulin) insulin glargine 100 unit/mL (3 25 unit (0.25 mL) subcut HS #15 mL 10/28/23 11/29/23 Rx mL) subcutaneous pen (Lantus Solostar U-100 Insulin) magnesium oxide 400 mg (241.3 mg 400 mg PO DAILY #30 tabs 10/28/23 11/29/23 Rx magnesium) tablet potassium chloride 20 mEq 20 meq PO DAILY #30 tabs 10/28/23 11/29/23 Rx tablet,extended release(part/cryst) (Klor-Con M) spironolactone 25 mg tablet 25 mg PO DAILY #90 tabs 11/21/23 11/29/23 Rx cholecalciferol (vitamin D3) 1,250 1,250 mcg PO QWEEK 11/28/23 11/29/23 History mcg (50,000 unit) capsule insulin aspart U-100 100 unit/mL 1 sliding scale dose subcut TID 11/29/23 11/29/23 History (3 mL) subcutaneous pen polyethylene glycol 3350 17 17 g PO DAILY 11/29/23 11/29/23 History gram/dose oral powder (ClearLax) Exam Narrative Exam Narrative: Seen this morning in ICU. Patient resting in bed. Reports pain, and is a little tachycardic, but exhibits no apparent acute distress. Const Other: Answers questions appropriately. Eyes Other: EOMI Neck Other: Supple Resp Other: Chest CTA in bilateral upper anterior shepherd Cardio Other: Tachycardia is present; rate 105 GI Other: Cholecystostomy tube is in place. Abdomen is soft, without signs of peritoneal irritation. There is no guarding and no rebound. Neuro Other: No apparent focal neuro deficits are observed. Extrem Other: Hands and feet are warm bilaterally. There is no calf pain. Has a diabetic foot sore/infection at right heel noted on previous admission. Results Imaging CT scan - chest: report reviewed CT scan - pelvis: report reviewed Labs 11/28/23 23:48 11/28/23 23:48 Labs: Laboratory Results - last 24 hr 11/28/23 11/29/23 11/29/23 23:48 02:47 03:05 WBC 27.91 H* RBC 3.97 Hgb 10.3 L Hct 31.4 L MCV 79 L D MCH 25.9 L MCHC 32.8 RDW 15.9 H Plt Count 384 MPV 8.5 Immature Gran % 0.8 Neutrophils % 87.9 Lymphocytes % 4.7 Monocytes % 5.0 Eosinophils % 1.4 Basophils % 0.2 Nucleated RBC % 0.0 Absolute Neutrophils 24.53 H Absolute Lymphocytes 1.31 Absolute Monocytes 1.40 H Absolute Eosinophils 0.39 Absolute Basophils 0.06 RBC Morphology Normal VBG Lactate 2.0 H Sodium 131 L Potassium 4.3 Chloride 93 L Carbon Dioxide 28.8 Anion Gap 9.2 BUN 22 H Creatinine 1.0 Est GFR (CKD-EPI 2020) 59.12 Glucose 236 H Calcium 9.1 Total Bilirubin 0.5 Conjugated Bilirubin 0.2 AST 11 L ALT 22 Alkaline Phosphatase 129 H Total Protein 8.3 H Albumin 2.8 L Lipase 48 Procalcitonin 0.1 Urine Color Yellow Urine Clarity Cloudy Urine pH 7.0 Ur Specific Index 1.015 Urine Protein Negative Urine Ketones Negative Urine Blood Trace-intact H Urine Nitrite Negative Urine Bilirubin Negative Urine Urobilinogen 1.0 H Ur Leukocyte Esterase Negative Urine RBC 3-5 H Urine WBC 20-50 H Ur Epithelial Cells Moderate Urine Crystals Negative Urine Bacteria Moderate Urine Mucus Negative Ur Culture Indicated? No/Sq. Contamination Urine Glucose Negative MRSA (TEM-PCR) Positive A Last Vital Signs Temp 99.5 F 11/29/23 04:19 Pulse 110 H 11/29/23 04:01 Resp 28 H 11/29/23 04:01 BP 110/52 L 11/29/23 04:01 Pulse Ox 93 11/29/23 04:01 Time Spent Time spent with Patient: 40-54 minutes Time was spent: preparing to see the patient(eg.review tests), obtaining and/or reviewing separately otained hiistory, ordering medications,tests, procedures, referring, communicating with other health vehicle care specialist, indepentently interpreting results and counseling the patient
[2023-11-29] MEDS: Normal Saline 1,000 ML 100 ML IV (05:53)
[2023-11-29 06:46] LABS: INR 1.1 (0.9-1.1); PTT Activated 30.7 sec (23.6-32.8); Prothrombin Time 10.8 sec (9.1-11.1)
[2023-11-29 06:57] LABS: ALT 21 U/L (14-59); AST 11 U/L (15-37); Albumin 2.5 g/dL (3.4-5.0); Alkaline Phosphatase 114 U/L (46-116); Anion Gap 10.6 mmol/L (3-11); BUN 17 mg/dL (7-18); Bilirubin, Total 0.6 mg/dL (0.2-1.0); CO2 26.4 mmol/L (21.0-32.0); CREATININE 0.9 mg/dL (0.55-1.02); Calcium 8.6 mg/dL (8.5-10.1); Chloride 96 mmol/L (98-107); Estimated GFR 67.08 (mL/min/1.73m2); Glucose 179 mg/dL (74-106); Sodium 133 mmol/L (136-145); Total Protein 7.7 g/dL (6.4-8.2)
--- NOTE | 2023-11-29 07:40 | W.ANESPRE ---
General Info Date of Service Date Performed: 11/29/23 Height: 5 ft 3 in Weight: 101.9 kg Body Mass Index (BMI): 39.8 Meds Allergies and Home Medications Allergies Allergy/AdvReac Type Severity Reaction Status Date / Time No Known Allergies Allergy Verified 11/29/23 00:40 Home Medication Medication Instructions Recorded atorvastatin 40 mg tablet 40 mg PO DAILY 09/04/23 trazodone 50 mg tablet 50 mg PO QHS 09/04/23 acetaminophen 500 mg tablet 1,000 mg (2 x 500 mg) PO TID #60 09/06/23 tabs blood sugar diagnostic (FreeStyle #100 ea 09/06/23 Lite Strips) blood-glucose meter (FreeStyle #1 ea 09/06/23 Lite Meter kit) docusate sodium 100 mg capsule 100 mg PO DAILY #30 caps 09/06/23 (Colace) ferrous sulfate 325 mg (65 mg 325 mg PO DAILY #30 tabs 09/06/23 iron) tablet lancets 28 gauge (FreeStyle #100 ea 09/06/23 Lancets) metformin 500 mg tablet 500 mg PO BIDWMEAL #60 tabs 09/06/23 pantoprazole 40 mg tablet,delayed 40 mg PO DAILY@0730 #10 tabs 09/06/23 release levothyroxine 150 mcg tablet 150 mcg PO DAILY 10/19/23 furosemide 40 mg tablet 40 mg PO BID@0830,1600 #60 tabs 10/28/23 insulin glargine 100 unit/mL (3 15 unit (0.15 mL) subcut QAM #15 mL 10/28/23 mL) subcutaneous pen (Lantus Solostar U-100 Insulin) insulin glargine 100 unit/mL (3 25 unit (0.25 mL) subcut HS #15 mL 10/28/23 mL) subcutaneous pen (Lantus Solostar U-100 Insulin) magnesium oxide 400 mg (241.3 mg 400 mg PO DAILY #30 tabs 10/28/23 magnesium) tablet potassium chloride 20 mEq 20 meq PO DAILY #30 tabs 10/28/23 tablet,extended release(part/cryst) (Klor-Con M) spironolactone 25 mg tablet 25 mg PO DAILY #90 tabs 11/21/23 cholecalciferol (vitamin D3) 1,250 1,250 mcg PO QWEEK 11/28/23 mcg (50,000 unit) capsule insulin aspart U-100 100 unit/mL 1 sliding scale dose subcut TID 11/29/23 (3 mL) subcutaneous pen polyethylene glycol 3350 17 17 g PO DAILY 11/29/23 gram/dose oral powder (ClearLax) Current Visit Medications: Current Medications Generic Name Dose Route Start Last Admin Trade Name Freq PRN Reason Stop Dose Admin Dextrose 0 gm 11/29/23 02:53 Glucose Oral Gel 15 Gm/37.5 Gm Tube PO DIRECTED PRN Dextrose/Water 0 gm 11/29/23 02:53 Dextrose 50%-Water 25 Gm/50 Ml Syr IVP DIRECTED PRN Ampicillin Sodium/Sulbactam 100 mls @ 200 mls/hr 11/29/23 08:00 Sodium 3 gm/ Sodium Chloride IVPB Q6H BRENDA Sodium Chloride 1,000 mls @ 100 mls/hr 11/29/23 05:30 11/29/23 05:53 Saline 1000ml Bag IV 100 mls/hr INFUSION [facility] Administration IV Miscellaneous Supplies 1 each 11/29/23 03:00 Iv Access-Emergency Dept IV DIRECTED [facility] Insulin Aspart 0 units 11/29/23 08:00 Insulin Aspart 300 Units/3 Ml Pen SC 0800,1200,1700 [facility] Protocol Morphine Sulfate 2 mg 11/29/23 02:53 Morphine 2 Mg/Ml Syr IVP Q1H PRN PRN Pantoprazole Sodium 40 mg 11/29/23 08:30 Pantoprazole 40 Mg Vial IVP DAILY [facility] Sodium Chloride 0 ml 11/29/23 00:03 11/29/23 00:03 Normal Saline Flush 10 Ml Syr IVP 10 ml PRN PRN Administration Sodium Chloride 0 ml 11/29/23 02:53 Normal Saline Flush 10 Ml Syr IVP PRN PRN Sodium Chloride 0 ml 11/29/23 08:30 Normal Saline Flush 10 Ml Syr IVP BID BRENDA Sodium Chloride 0 ml 11/29/23 02:53 Normal Saline 10 Ml Vial IJ DIRECTED PRN PFSH Active Problems Active Problems: Problem Status Onset Code Pneumonia J18.9 Cholecystitis K81.9 Anemia in chronic illness D63.8 Transaminitis R74.01 Obesity E66.9 Unstageable pressure ulcer of right heel L89.610 Poorly controlled type 2 diabetes mellitus with peripheral neuropathy E11.42, E11.65 Diabetic foot infection E11.628, L08.9 Low serum iron E61.1 Lumbar back pain with radiculopathy affecting right lower extremity M54.16 Ambulatory dysfunction R26.2 Weakness R53.1 Medical History Medical History (Updated 11/29/23 @ 08:11 by Martin Berry CRNA) Hypothyroid Gram-negative bacteremia Pleural effusion, left Hyperglycemia due to type 2 diabetes mellitus Urinary tract infection Palliative care patient Physician orders for life-sustaining treatment (POLST) form indicates patient wish for hv-[id number]-[id number] status ACP (advance care planning) Stroke Diabetes CHF (congestive heart failure) 2020, pt. denies any deficits now Surgical History Surgical History History of ERCP S/P tonsillectomy Tobacco Smoking/Tobacco Use Status: Never Alcohol Alcohol Intake: never Substance Use Substance use: Never Substance use type: does not use Vital Signs and Lab Results Vital Signs Most Recent Vital Signs in EMR: Most Recent Vital Signs Temp Pulse Resp BP Pulse Ox 37.5 C 105 H 29 H 111/54 L 92 11/29/23 07:00 11/29/23 06:00 11/29/23 07:00 11/29/23 06:00 11/29/23 07:00 Lab Results 11/28/23 23:48 11/29/23 05:50 Blood Type / Crossmatch: No Data to Display Complete Blood Count: White Blood Count 27.91 10^3/uL (4.4-10.8) H* 11/28/23 23:48 Red Blood Count 3.97 10^6/uL (3.93-5.22) 11/28/23 23:48 Hemoglobin 10.3 g/dL (11.2-15.7) L 11/28/23 23:48 Hematocrit 31.4 % (36.0-46.0) L 11/28/23 23:48 Platelet Count 384 10^3/uL (130-400) 11/28/23 23:48 Venous Blood Lactate 2.0 mmol/L (0.6-1.4) H 11/28/23 23:48 Complete Metabolic Panel: Sodium 133 mmol/L (136-145) L 11/29/23 05:50 Potassium 4.0 mmol/L (3.5-5.1) 11/29/23 05:50 Chloride 96 mmol/L (98-107) L 11/29/23 05:50 Carbon Dioxide 26.4 mmol/L (21.0-32.0) 11/29/23 05:50 BUN 17 mg/dL (7-18) 11/29/23 05:50 Creatinine 0.9 mg/dL (0.55-1.02) 11/29/23 05:50 Est GFR (CKD-EPI 2020) 67.08 (mL/min/1.73m2) 11/29/23 05:50 Magnesium 1.5 mg/dL (1.8-2.4) L 11/28/23 10:36 Calcium 8.6 mg/dL (8.5-10.1) 11/29/23 05:50 Albumin 2.5 g/dL (3.4-5.0) L 11/29/23 05:50 Glucose 179 mg/dL (74-106) H 11/29/23 05:50 Hemoglobin A1c > 13.0 % (<5.7) H 10/31/23 13:00 C-Reactive Protein 6.95 mg/dL (<or=0.5) H 11/21/23 06:22 Liver Function Panel: Alanine Aminotransferase (ALT/SGPT) 21 U/L (14-59) 11/29/23 05:50 Aspartate Amino Transf (AST/SGOT) 11 U/L (15-37) L 11/29/23 05:50 Coagulation Panel: INR International Normalized Ratio 1.1 (0.9-1.1) 11/29/23 05:50 Prothrombin Time 10.8 sec (9.1-11.1) 11/29/23 05:50 Activated Partial Thromboplast Time 30.7 sec (23.6-32.8) 11/29/23 05:50 Cardiac Panel: NT-Pro-B Natriuret Pep 892 pg/mL (<300) H 11/17/23 Arterial Blood Gas: No Data to Display Venous Blood Gas: Venous Blood pH 7.47 (7.31-7.41) H 11/11/23 07:18 Venous Blood Partial Pressure O2 44 mmHg 11/11/23 07:18 Venous Blood Partial Pressure CO2 44 mmHg (41-51) 11/11/23 07:18 Venous Blood Oxygen Saturation 80 % 11/11/23 07:18 Venous Blood HCO3 32 mmol/L (23-28) H 11/11/23 07:18 Venous Blood Base Excess 8 mmol/L (-2-3) H 11/11/23 07:18 Venous Blood Total Carbon Dioxide 30 mmol/L (24-29) H 11/11/23 07:18 Pancreas Panel: Lipase 48 U/L (16-77) 11/28/23 23:48 Thyroid Panel: Thyroid Stimulating Hormone (TSH) 3.07 uIU/mL (0.36-3.74) 11/11/23 07:18 Infectious Disease: No Data to Display Blood Cultures: No Data to Display Toxicology Panel: No Data to Display Imaging and Studies Imaging and Studies Study information below may be from another EMR and interpreted by another provider. Please see original notes in EMR for more complete details. EKG Summary: DATE/TIME OF SERVICE: 11/11/23716 : 1950 PERFORMING LOCATION: MD APPROVED REPORT Exam: Resting ECG Reason for Exam: weak Patient Location: E HR:88 bpm ECG Measurements Heart Rate 88 AXIS NV 175 P 30 QRSd 132 QRS -52 QT 419 T33 QTc 508 Conclusion Sinus rhythm...normal P axis, V-rate 60- 99 Left bundle branch block...QRSd>120, broad/notched R Echocardiogram Summary: Date of Exam: 10/18/23 Sex: F Admission Date: 10/16/23 : 1950 Age: 73 APPROVED REPORT EXAM: Comprehensive 2D, Doppler, and color-flow Echocardiogram Patient Location: In-Patient Room/Bed: UUQ324 Solar System Designer: Kathryn Mancia RDCS (AE) Indications: Evaluate LV and RV function Other Information Study Quality: Fair. Technically limited study due to body habitus, inability to position patient exam done supine bedside ICU. Conclusion Mild concentric left ventricular hypertrophy. Ejection fraction is 50%. Septal motion is somewhat paradoxic Normal right ventricular size and function Both atria are normal in size Mild mitral annular calcification Estimated right ventricular systolic pressure is 34 mmHg Dilated ascending aorta 4.21 cm Anesthesia Assessment and Plan Anesthesia History Personal History: No History of Anesthesia Complications Family History: No Family History of Anesthesia Complications Exercise Tolerance Exercise Tolerance: Metabolic Equivalents>4 Pertinent Negatives Pertinent Negatives: No Symptoms of GERD and No Major Cardiovascular Symptoms or Complaints Cardiac & Pulmonary Exam Cardiac Exam: Normal S1/S2 Heart Sounds Pulmonary Exam: Clear Bilateral Breath Sounds Implantable Cardiac Device Does patient have a Pacemaker or an ICD?: No Airway Exam Known Difficult Airway: No Mallampati Class: 4 (Pt. sleepy and unclear how much effort is put forth by patient when asked.) Mouth Opening: Narrow (< 3cm) Thyromental Distance: Greater than 3 cm Neck Range of Motion: Full ROM Neck Circumference: Normal Teeth Condition: Normal Dentition ASA Classification ASA Score: ASA 3 Emergency Case?: Yes NPO Status NPO Status: NPO Clears >2 hours, Solids >8 hours Anesthesia Plan Resuscitation Status: DNR Fully Suspended During Perioperative Period Anesthesia Technique: General Anesthesia Airway Planned: Endotracheal Tube Monitors Used: Standard Monitors, Arterial Line and Central Line Preoperative Comments:: Met pt. in ICU, she is very sleepy, received 2mg morphine around 3am. She falls back to sleep during conversation. She did agree to suspend her DNR/DNI during perioperative period. I requested that nursing hold any additional doses of sedation/analgesia to allow he rot be more awake. We did discuss the plan for anesthesia to include placement of arterial line, central line, and prolonged ventilation given likely active pneumonia to which she agreed but we will discuss this again later once she is more awake. This 73y/o female presented to [facility] Emergency Department from [facility] with complaint of abdominal pain and cough. She previously was admitted here November 10 with acute cholecystitis. She was deemed a poor surgical candidate due to multiple comorbidities. She underwent placement of a percutaneous cholecystostomy tube at [facility] on November 15. She subsequently improved and was discharged from [facility] on November 17. In the ED, she was found to have leukocytosis with WBC of 28,000 with purulent drainage noted from her cholecystostomy tube. LFT's and lipase are essentially normal. CT Scan of the abdomen demonstrated no biliary ductal dilation. CT Scan of the chest suggested left lower lobe infiltrate, possibly pneumonia. Serology PCR was positive for MRSA. She has been give first dose of Vanco. Bile cultured on November 17 grew two species of E. coli, both susceptible to Unasyn, so this has been started as well. : From surgery note. Plan is to proceed today unless she can be further optimized to reduce her risk, in which case her surgery will occur tomorrow.
--- NOTE | 2023-11-29 08:11 | INITIAL_ITS ---
Date of service: 11/29/23 Time of Service: 08:11 Care Management Initial Assmt Initial Assessment Reason for Hospitalization: Pneumonia Functional Status/Living Situation Patient Presentation: Nilam was discharged to the [facility] on 11/15/23 and re-admits to [facility] on 11/28/23. Nilam is currently down in the OR for a cholecystectomy. CM spoke with edmundo Chavez via phone. CM will follow. Town of Residence: [place] Resides with: Other ([facility]) Significant Other/Family: Local Natural Supports: Granddaughter Noam Daughter Kathy Employment Status: Retired Instrumental Activities of Daily Living (ADLs): Requires support (SNF) Medications Medication Management: No Issues/Barriers identified Physical Functioning/Mobility Assistive Device: FWW Advance Directives Advance Directives: Do you have an Advance Directive: N 09/04/23 11:[address] [facility]: N 09/04/23 11:35 Date Asked 11/29/23 11/29/23 07:30 AD Date Reviewed COLST On File at [facility] Yes 11/29/23 03:38 COLST Date Scanned 09/06/23 11/29/23 03:38 Code Status Resuscitation Status DNR/DNI Insurance Coverage/Financial Issues Insurance: [id number] Replacement ACO Member: No Care Team Visit Care Team Role Provider Type Angelika Berumen NP Primary Care Provider NURSE PRACTITIONER Norberto Grijalva, Emergency Provider [facility] STAFF PHYSICIAN Kirit Tejeda, DO Admit Provider CONSULTING PHYSICIAN Attending Provider Discharge Anticipated Barriers to Discharge: None Identified Patient/Family Education Needs: Review discharge instructions, discuss Ask Me Three Transportation: RCT Plan: Anticipate Nilam will discharge back to the [facility] for STR when medically cleared. Pt will follow up with facility/community providers and her discharge plan of care as instructed. RCT w/c van will transport. PFSH All Active Problems (Updated 11/29/23 @ 10:19 by Harvey Pillai) Pneumonia (Acute) Cholecystitis (Acute) Anemia in chronic illness (Acute) Transaminitis (Acute) Obesity (Chronic) Unstageable pressure ulcer of right heel (Acute) Poorly controlled type 2 diabetes mellitus with peripheral neuropathy (Acute) Low serum iron (Acute) Lumbar back pain with radiculopathy affecting right lower extremity (Acute) Ambulatory dysfunction (Acute) Weakness (Acute) Medical History Hypothyroid Gram-negative bacteremia Pleural effusion, left Hyperglycemia due to type 2 diabetes mellitus Urinary tract infection Palliative care patient Physician orders for life-sustaining treatment (POLST) form indicates patient wish for wt-dfu-tfadiemsmcm status ACP (advance care planning) Stroke Diabetes CHF (congestive heart failure) 2020, pt. denies any deficits now Surgical History History of ERCP S/P tonsillectomy Social History Smoking/Tobacco Use Status: Never Smoking risk assessment performed?: Yes Alcohol Intake: never Drug use: Never Substance use type: does not use Housing: retirement What is your relationship status?: Panel score (0-1 are the most socially isolated patients): 0 Do you feel safe at home: Yes Do you feel safe in your relationship?: Yes Readmission Within the Past 30 Days Yes or No: Yes Date of First Admission Date of 1st Admission: 11/11/23 Date of this Admission Date of Admission: 11/28/23 This admission was: Through ED Office Visit Since 1st Admission Have you seen your PCP in the office since discharge?: No Had an appointment Been Scheduled?: No If the patient had a VNA ordered Did the patient have a VNA order?: No ED visits How many ED visits in the past 12 months: 4 Assessment for Readmission Summary of readmission circumstances, based upon interviews: Per H&P documentation 73 yo F with poorly controlled type 2 DM, recently admitted 10/15-10/28/23 for ESBL E. coli bacteremia and UTI, readmitted 11/10- 11/21/23 for cholecystitis that improved on IV antibiotics and IR placed cholecystostomy tube who was readmitted overnight from [facility] with increased confusion and deminished drainage from the cholecystostomy tube. Report from [facility] indicate tempurature to 100 degrees, deminished mental status and change in drainage noted over a day or two. She has also had some cough and RUQ abdominal pain. SDOH(Care Management) Screening Will the Patient Participate in the Screening?: Unable to obtain
[2023-11-29 08:47] LABS: Abs Immature Grans 0.42 10^3/uL (0.0-0.06); HCT 28.5 % (36.0-46.0); HGB 9.5 g/dL (11.2-15.7); MCH 26.3 pg (27.0-33.0); MCHC 33.3 % (32.0-36.0); MCV 79 fL (80-95); MPV 9.1 fL (8.0-11.0); Platelet Count 403 10^3/uL (130-400); RBC 3.61 10^6/uL (3.93-5.22); RDW-SD 46.2 fL
[2023-11-29 09:01] LABS: Absolute Monocyte Count 1.55 10^3/uL (0.1-0.8)
[2023-11-29 09:03] LABS: Absolute Lymphocyte Count 1.24 10^3/uL (1.2-3.4); Absolute Neutrophil Count 28.24 10^3/uL (1.2-6.7); Bands % 4 %; WBC 31.03 10^3/uL (4.4-10.8)
[2023-11-29 09:04] LABS: Diff Comment Manual Differential; RBC Morphology Normal
[2023-11-29] MEDS: Pantoprazole 40 MG VIAL IVP (09:05)
[2023-11-29] MEDS: MAGNESIUM SULFATE 2 GM/50 ML BAG IVINF (09:09)
--- NOTE | 2023-11-29 09:57 | MCONE_ITS ---
Date of service: 11/29/23 Time of Service: 09:57 Assessment and Plan Assessment and plan (1) Cholecystitis: Status: Acute Assessment and plan: Mangement per surgery. I agree she needs definitive surgery. Given severe illness and ESBL E coli documented in previous culture from drainage, I think prudent to change from amp/sulbactam to meropenem for now. (2) Pneumonia: Status: Acute Assessment and plan: Not totally clear on imaging, but with cough and hypoxia prudent to cover. Abdominal pain could be contributing to tachypnea and some atelectasis as well On meropenem as above, MRSA swab positive so continue vancomycin. Add doxycycline for atypicals. (3) Anemia in chronic illness: Status: Acute Assessment and plan: stable, monitor (4) Poorly controlled type 2 diabetes mellitus with peripheral neuropathy: Status: Acute Assessment and plan: Had very poor control at first admission, was improving with titration of insulin. I'd like to keep her 120-180 range. She is NPO so I will cut the basal insulin and continue sliding scale. (5) CHF (congestive heart failure): Assessment and plan: She has a history of HFpEF, but no active CHF in recent admissions. Echo from 10/18/23 showed LVEF 50%, mild concentric LVH, RVSP of 34. I don't think she is fluid overloaded now, she may need more fluids but defer to surgeon Qualifiers: Heart failure type: diastolic Heart failure chronicity: chronic Qualified Code(s): I50.32 - Chronic diastolic (congestive) heart failure (6) Urinary tract infection: Assessment and plan: She does have symptoms and U/a c/w UTI again, meropenem covering Qualifiers: Urinary tract infection type: acute cystitis Hematuria presence: w ithout hematuria Qualified Code(s): N30.00 - Acute cystitis without hematuria (7) Hypothyroid: Assessment and plan: outpatient levothyroxine when taking po again. (8) Unstageable pressure ulcer of right heel: Status: Acute Assessment and plan: this looks much better than previous admission and does not look infected. Continue wound care/offloading History of Present Illness History of Present Illness Chief Complaint: abdominal pain, confusion, cholecystitis Narrative: 73 yo F with poorly controlled type 2 DM, recently admitted 10/15-10/28/23 for ESBL E. coli bacteremia and UTI, readmitted 11/10-11/21/23 for cholecystitis that improved on IV antibiotics and IR placed cholecystostomy tube who was readmitted overnight from [facility] with increased confusion and deminished drainage from the cholecystostomy tube. Report from [facility] indicate tempurature to 100 degrees, deminished mental status and change in drainage noted over a day or two. She has also had some cough and RUQ abdominal pain. Consults Consult date: 11/29/23 Requesting physician: Kirit Tejeda Review of Systems All systems reviewed & are unremarkable except as noted in HPI and below Constitutional Constitutional: Reports weakness (feels generally weak) Eyes Eyes: Denies loss of vision ENT Ears, Nose, Mouth, and Throat: Denies dizziness Cardiovascular Cardiovascular: Denies chest pain, Reports pedal edema (chronic) and Reports dyspnea Respiratory Respiratory: Reports dyspnea Gastrointestinal Gastrointestinal: Denies diarrhea Genitourinary Genitourinary: Denies hematuria, Reports dysuria (burning) and Denies pelvic pain Integumentary/Breasts Skin/Breast: Denies rash and Reports skin ulcer (heel ulcer has been healing well) Neurologic Neurologic: Denies abnormal speech, Denies dizziness, Denies localized weakness, Denies loss of vision and Reports weakness (feels generally weak) PFSH All Active Problems (Updated 11/29/23 @ 10:19 by Harvey Pillai) Pneumonia (Acute) Cholecystitis (Acute) Anemia in chronic illness (Acute) Transaminitis (Acute) Obesity (Chronic) Unstageable pressure ulcer of right heel (Acute) Poorly controlled type 2 diabetes mellitus with peripheral neuropathy (Acute) Low serum iron (Acute) Lumbar back pain with radiculopathy affecting right lower extremity (Acute) Ambulatory dysfunction (Acute) Weakness (Acute) Medical History Hypothyroid Gram-negative bacteremia Pleural effusion, left Hyperglycemia due to type 2 diabetes mellitus Urinary tract infection Palliative care patient Physician orders for life-sustaining treatment (POLST) form indicates patient wish for kq-tqd-rwkecongaew status ACP (advance care planning) Stroke Diabetes CHF (congestive heart failure) 2020, pt. denies any deficits now Surgical History History of ERCP S/P tonsillectomy Social History Smoking/Tobacco Use Status: Never Smoking risk assessment performed?: Yes Alcohol Intake: never Drug use: Never Substance use type: does not use Housing: senior care What is your relationship status?: Panel score (0-1 are the most socially isolated patients): 0 Do you feel safe at home: Yes Do you feel safe in your relationship?: Yes Exam Narrative Exam Narrative: GEN: Sleepy, arouses, oriented to self and general situation, cannot name place or time. Gives minimal history, but able to respond appropriately to specific questions. HEENT: Head atraumatic. Conjunctiva clear, no icterus. PEERL, EOMI. no rhinorrhea. Mucous membranes dry. Neck is supple with no masses or lymphadenopathy, trachea midline LUNGS: Tachypneic, slight basilar rales on left (dependant on my exam), otherwise clear, no wheezes. CV: Tachycardic but regular with no murmurs, gallops, or rubs. ABD: hypoactive bowel sounds, tender to deep palpation in the epigastrum and RUQ. No guarding/rebound. not distended EXT: no cyanosis, clubbing, extremities warm. 1+ bilateral edema to shins. MSK: No joint redness or swelling NEURO: CN 2-12 grossly intact. moving and has gross sensation intact in 4 extremities. Normal speech. no tremor. SKIN: Clammy. No rashes. Right heel ulcer dry and closed. Results Last Vital Signs Temp 37.5 C 11/29/23 07:00 Pulse 105 H 11/29/23 06:00 Resp 29 H 11/29/23 07:00 BP 111/54 L 11/29/23 06:00 Pulse Ox 92 11/29/23 07:00 Labs 11/29/23 05:50 11/29/23 05:50 Labs: Laboratory Results - last 24 hr 11/28/23 11/29/23 11/29/23 23:48 02:47 03:05 WBC 27.91 H* RBC 3.97 Hgb 10.3 L Hct 31.4 L MCV 79 L D MCH 25.9 L MCHC 32.8 RDW 15.9 H Plt Count 384 MPV 8.5 Immature Gran % 0.8 Neutrophils % 87.9 Band Neutrophils % Lymphocytes % 4.7 Monocytes % 5.0 Eosinophils % 1.4 Basophils % 0.2 Nucleated RBC % 0.0 Absolute Neutrophils 24.53 H Absolute Lymphocytes 1.31 Absolute Monocytes 1.40 H Absolute Eosinophils 0.39 Absolute Basophils 0.06 RBC Morphology Normal PT INR APTT VBG Lactate 2.0 H Sodium 131 L Potassium 4.3 Chloride 93 L Carbon Dioxide 28.8 Anion Gap 9.2 BUN 22 H Creatinine 1.0 Est GFR (CKD-EPI 2020) 59.12 Glucose 236 H Calcium 9.1 Total Bilirubin 0.5 Conjugated Bilirubin 0.2 AST 11 L ALT 22 Alkaline Phosphatase 129 H Total Protein 8.3 H Albumin 2.8 L Lipase 48 Procalcitonin 0.1 Urine Color Yellow Urine Clarity Cloudy Urine pH 7.0 Ur Specific [place] 1.015 Urine Protein Negative Urine Ketones Negative Urine Blood Trace-intact H Urine Nitrite Negative Urine Bilirubin Negative Urine Urobilinogen 1.0 H Ur Leukocyte Esterase Negative Urine RBC 3-5 H Urine WBC 20-50 H Ur Epithelial Cells Moderate Urine Crystals Negative Urine Bacteria Moderate Urine Mucus Negative Ur Culture Indicated? No/Sq. Contamination Urine Glucose Negative MRSA (TEM-PCR) Positive A 11/29/23 05:50 WBC 31.03 H* RBC 3.61 L Hgb 9.5 L Hct 28.5 L MCV 79 L MCH 26.3 L MCHC 33.3 RDW 16.0 H Plt Count 403 H MPV 9.1 Immature Gran % 0.0 Neutrophils % 87.0 Band Neutrophils % 4 Lymphocytes % 4.0 Monocytes % 5.0 Eosinophils % 0.0 Basophils % 0.0 Nucleated RBC % 0.0 Absolute Neutrophils 28.24 H Absolute Lymphocytes 1.24 Absolute Monocytes 1.55 H Absolute Eosinophils 0.00 Absolute Basophils 0.00 RBC Morphology Normal PT 10.8 INR 1.1 APTT 30.7 VBG Lactate Sodium 133 L Potassium 4.0 Chloride 96 L Carbon Dioxide 26.4 Anion Gap 10.6 BUN 17 Creatinine 0.9 Est GFR (CKD-EPI 2020) 67.08 Glucose 179 H Calcium 8.6 Total Bilirubin 0.6 Conjugated Bilirubin AST 11 L ALT 21 Alkaline Phosphatase 114 Total Protein 7.7 Albumin 2.5 L Lipase Procalcitonin Urine Color Urine Clarity Urine pH Ur Specific [place] Urine Protein Urine Ketones Urine Blood Urine Nitrite Urine Bilirubin Urine Urobilinogen Ur Leukocyte Esterase Urine RBC Urine WBC Ur Epithelial Cells Urine Crystals Urine Bacteria Urine Mucus Ur Culture Indicated? Urine Glucose MRSA (TEM-PCR)
--- NOTE | 2023-11-29 12:20 | NUR.NOTE ---
PT's daughter called and updated on plan of care and pt's condition. She V/U. Requests that this nurse call her back after procedure to give update on pt's condition. Nursing Note:
[2023-11-29] MEDS: Lactated Ringers 1,000 ML 30 ML IV (12:51)
[2023-11-29] MEDS: DOXYCYCLINE 100 MG in Normal Saline 100 ML IVPB (13:17)
--- NOTE | 2023-11-29 14:25 | GB_PTH ---
PATIENT: Nilam Dyer LOC: U#:[id number] AGE/SX: 73/F ROOM: 228 RE11/29/[address]: Kirit Tejeda DO : 1950 BED: A DIS: 12/05/2023 SPEC #: [id number] RECD: 11/29/23 17:39 STATUS: YANET REQ #: [id number] ROXANN: 11/29/23 14:[address]: Kirit Tejeda DEPT: Surgical Specimen RECD BY: Qiana Del Rosario ENTERED: 11/29/23 17:40 SP TYPE: GB OTHR DR: Nadya Berumen NP Tissues: 1 - GALLBLADDER Procedures: GROSS AND MICRO LEVEL 3 Comments: [id number]
--- NOTE | 2023-11-29 14:28 | W.ANESVAS ---
Midline Placement Date Performed: 11/29/23 Procedure Time: 14:18 Requesting Provider: Kirit Tejeda Procedure Location: Operating Room Sedation Given (Indicate Dose Given): No Sedation given Patient Mental Status: Performed under general anesthesia Sterility: Hand Hygiene, Surgical Cap, Surgical Mask, Sterile Gloves and Chlorhexidine Laterality: Left Insertion Site: Cephalic Midline Device: PowerGlide Pro 18G Catheter Length: 10 cm Midline Procedure Procedure: Vessel accessed with catheter over needle, Guidewire placed with ease, Catheter placed without resistance and Guidewire removed Dressing: Tegaderm Applied, Statlock Applied and Mastisol Used Blood Return: Present Flushes: Easily Ultrasound: Sterile probe cover and gel used Ultrasound Image Saved?: Yes Number of Attempts (See previous attempts in note section): 1 Procedure Tolerated: No Complications and Patient tolerated well Procedure Outcome: Successful Performed By: Efraín Odom
[2023-11-29] MEDS: Bupivacaine 0.25% Pres-Free 30 ML VIAL (15:30)
--- NOTE | 2023-11-29 16:33 | W.BRIEF ---
Date of service: 11/29/23 Time of Service: 16:00 Brief Operative Note Procedure/Pre & Post Op Diagnoses/Black And White Printer Operator: Operation Date: 11/29/23 12:25 Actual Procedures p Cholecystectomy Open(Not Applicable) - Kirit Tejeda DO Pre-Op Diagnosis: Cholecystitis Post-Op Diagnosis: Cholecystitis (acute & chronic) w/ cholelithiasis Case Staff Physician Black And White Printer Operator: Bonita Gould Anesthesia Anesthesia Type: General LMA/ETT Estimated Blood Loss Output, Estimated Blood Loss 125 Amount Specimen/Culture Specimen(s): 1. GALLBLADDER (piecemeal) and contents/stones Complications Complications: None Additional Procedure Notes Note: See dictated operative report.
[2023-11-29] MEDS: MORPHine 2 MG/ML SYR IVP ×2 (17:21→21:28)
--- NOTE | 2023-11-29 17:44 | W.PM.OP ---
Date of service: 11/29/23 Time of Service: 16:00 Operative Note Operative Note DATE OF PROCEDURE: 11/29/23 PRE-OP DIAGNOSIS: (1) Acute on chronic cholecystitis with cholelithiasis (2) Failed percutaneous cholecystostomy tube POST-OP DIAGNOSIS: same PROCEDURE: (1) Open cholecystectomy SURGEON: Kirit Tejeda ACTUARIAL ASSISTANT: Bonita Gould ANESTHESIA TYPE: General LMA/ETT Refer to Anesthesia Record ESTIMATED BLOOD LOSS: 125 PATHOLOGY: other (Gallbladder (piecemeal), contents and stones.) COMPLICATIONS: None Patient was transported to: ICU Patient's condition: stable Implants: #10 Cem-Jc drain to grenade bulb suction Love catheter Indications: Patient previously admitted here 11/10. She was determined to be a poor candidate for operative intervention. She was sent to [facility] and underwent insertion of a cholecystostomy tube on 11/15. She was returned here and subsequently discharged to [facility] on 11/17. She presented this morning the the [facility] Emergency Department with signs and symptoms of sepsis. Her cholecystostomy tube was producing purulent output and her WBC was 28,000. Subsequent repeat WBC was 31,000. The case was discussed with the Hospitalist and the Anesthesia service to determine eligibility and timing for operative intervention here. It was determined that the patient worsening and that now was the window of opportunity, and that she should be operated here today. Risks, alternatives, and benefits were discussed with the patient and with her daughter (by telephone). Both indicated their understanding and wishes to procedure with surgery. Given her situation, open cholecystectomy was advised. Findings: Acute and chronic inflammatory changes at the right upper quadrant of the abdomen. The omentum was densely stuck to the liver edge and gallbladder obscuring the gallbladder margins. The cholecystostomy was indeed transhepatic as suggested by the pre-op CT Scan. The gallbladder was very thick walled and the upper one half of the gallbladder was essentially rotten and removed piecemeal as the applied ring forceps kept tearing the tissue. The lining of the gallbladder was stripped out and contained lots of minor pus. The cystic duct was found to be obstructed and did not produce back flow of bile upon milking the duct after removing the gallbladder. There were several black faceted gallstones retrieved and sent with the specimen. Procedure Description: The patient was prepared preoperatively with IV fluids and antibiotics. She was brought from the intensive care unit to the PACU. Consent was obtained and she was then brought into the operating room. The patient was placed supine on the table. Induction was performed and the patient was intubated and given general anesthetic by the anesthesia service. A Love catheter was placed. A sterile prep and drape were carried out in usual fashion to the abdomen. A skin marker was used to draw skin tracings. A #10 blade scalpel was used to make a full-thickness right subcostal incision approximately 2?3 finger breaths below the right costal margin. Dissection was carried down through all layers using cautery to expose the anterior fascia. The anterior sheath of the right rectus abdominis was opened using cautery over the logging shovel operator's index finger. The right rectus abdominis was mobilized bluntly with finger dissection and then an [employer] retractor was placed deep to the muscle. The right rectus abdominis was divided with cautery over the [employer] retractor. The posterior sheath and peritoneum were opened the full length of the incisionusing cautery.. Moist sponges were placed along with retractors. The omentum was found densely adherent to the liver edge and completely encasing the gallbladder. The pericholecystic adhesions obscured the gallbladder margins. Slow deliberate dissection using cautery, Endo Kitners, along with right angle dissector was used to expose the gallbladder. Eventually a ring forcep could be applied to the gallbladder that appeared contracted. Cautery and blunt dissection was used to work the gallbladder off of the liver bed. The gallbladder, despite being thick walled continued to fracture apart and the upper one half was removed in a piecemeal fashion. Minor purulent fluid was found within the gallbladder and the inner mucosa was partially stripped out during dissection. A second ring forcep was placed near Rodrigues's and distracted laterally in an effort to open the triangle of Calot. The gallbladder was worked off the liver bed posteriorly and inferiorly and then attention was turned to the medial attachments. These were taken down slowly and deliberately using cautery and the right angle dissector. A small branch a the cystic artery was encountered and controlled with cautery. The cystic artery was encountered posteriorly and this was doubly clipped with Endo parish. A right angle dissector was used to strip down the peritoneal reflections just below Rodrigues's to expose the cystic duct. A nice length of this was developed and it was the only thing the gallbladder remained attached to. The right angle dissector was applied to the cystic duct and the duct was divided with Metzenbaum scissors and the remaining lower half of the gallbladder was passed from the field. The edge of the cystic duct was grasped with a forcep and the right angle dissector was used to milk the cystic duct but this did not produce any backflow of bile; a finding consistent with cystic duct obstruction. The cystic duct was now doubly clipped with parish. Irrigation was carried out using 80 mg of Gentamicin mixed in a liter of saline. A few areas were lightly touched with cautery and the upper portion of the liver bed was cauterized in the event that any portion of the back wall of the gallbladder remained. Satisfied with the cholecystectomy I elected to conclude the procedure. A #10 flat Cem-Jc drain was placed through a fresh separate stab wound and this placed into the subhepatic space. The previously placed cholecystostomy tube encountered during dissection was divided with straight James scissors. The indwelling portion was passed from the field and the external portion was withdrawn from the abdominal wall. Further irrigation was carried out and returned clear. The peritoneum and posterior rectus sheath was closed with a running number running 0 PDS suture. The anterior sheath was closed with #1 PDS suture running one from each pole of the wound where they were taken to the midpoint and tied separately. Irrigation was carried out. The dermis was approximated with interrupted 3-0 Monocryl suture and the skin was closed with skin parish. The Cem-Jc drain was sutured to the skin with a 3-0 Nylon suture. A dab of Bacitracin was applied to the former exit site of the cholecystostomy tube. Sterile dressings were applied. The Love catheter was left indwelling. The patient was awakened, extubated, and remanded to the recovery room in satisfactory condition having tolerated the procedure well and without incident.
[2023-11-29] MEDS: Normal Saline 1,000 ML 75 ML IV (17:47)
[2023-11-29] MEDS: VANCOMYCIN/WATER (PEG) 1 GM/200 ML BAG IV (18:43)
[2023-11-29 18:44] LABS: Anion Gap 10.1 mmol/L (3-11); BUN 18 mg/dL (7-18); CO2 25.9 mmol/L (21.0-32.0); CREATININE 0.8 mg/dL (0.55-1.02); Calcium 8.4 mg/dL (8.5-10.1); Chloride 96 mmol/L (98-107); Estimated GFR 77.27 (mL/min/1.73m2); Glucose 285 mg/dL (74-106); Magnesium 1.8 mg/dL (1.8-2.4); Potassium 4.2 mmol/L (3.5-5.1); Sodium 132 mmol/L (136-145)
[2023-11-29] MEDS: ACETAMINOPHEN 1,000 MG/100 ML BTL 400 MG IVPB (18:49)
[2023-11-29] MEDS: Insulin Glargine 300 UNITS/3 ML PEN 20 UNITS SC (19:45)
--- NOTE | 2023-11-29 22:40 | NUR.NOTE ---
2119-patient woke up suddenly and was moaning in pain. looked right at nurse and was speaking very clearly and stating pain. medicated with MSo4, 2m ivp.
--- NOTE | 2023-11-29 23:41 | DI.CT_ITS ---
Exam(s) CT CHEST/ABD/PEL W EXAM: CT CHEST/ABD/PEL W CLINICAL HISTORY: cough, fever, ruq pain ,w/ cholecystostomy tube TECHNIQUE: Imaging Protocol: Axial computed tomography images with coronal and sagittal reformatted images were created and reviewed CONTRAST MATERIAL: Intravenous: Omnipaque 350 contrast volume:100 mL Oral: No COMPARISON: CT CT ABDOMEN PELVIS W from 11/11/[address] ABDOMEN W from 11/14/2023 FINDINGS: Examination suboptimal due to patient motion. Portions of the examination repeated. CHEST: Tracheobronchial tree: Patent where visualized. Pulmonary parenchyma: Infiltrates are seen in the dependent portion of the left upper lobe and the le ft lower lobe. The right lung is clear. No architectural distortion. Visualized thyroid gland: There are few tiny subcentimeter hypodensities in the thyroid gland. No fo llow-up is recommended. Mediastinum and Karina: No dominant adenopathy or fluid collection. The esophagus is unremarkable. Pleura: No effusion or pneumothorax. Heart: The heart is not dilated. Coronary artery calcifications are present. No pericardial effusion . Pulmonary arteries: Due to the timing of the bolus, peripheral pulmonary artery evaluation for pulmon sanket emboli is not possible. No large central pulmonary embolus is seen. Aorta: Thoracic aorta non-dilated. Atherosclerotic calcification is present. Lymph nodes: Within normal limits. Soft tissues: Unremarkable. Bones:Within normal limits for the patient's age. ABDOMEN: Liver: Normal density. No measurable mass. Portal, Superior Mesenteric, and Splenic Veins: Unremarkable. Gallbladder and Biliary Tract: There is now percutaneous cholecystostomy tube within the gallbladder. There is air seen within the gallbladder lumen. The gallbladder wall is thickened with pericholecy stic inflammation. There is a stone again seen in the gallbladder. There is no biliary ductal dilat ation. Pancreas: Normal density, no abnormal calcifications or inflammatory process. Spleen: Normal. Adrenals: No masses seen. Kidneys: Normal size, contour and axis. No radiodense stones or obstructive uropathy. No masses seen. Abdominal Aorta: Abdominal portion non-dilated. Atherosclerotic calcification is present. Bowel: No obstruction or bowel wall thickening. There is a moderate amount of stool in the colon sugg esting constipation. There is diverticulosis of the colon but no evidence of acute diverticulitis. No evidence of appendicitis. Peritoneal Cavity: No ascites, collection or mesenteric inflammatory response. No free air. Lymph Nodes: Within normal limits. Bones: Within normal limits for the patient's age. Soft Tissues: The subcutaneous nodules in the anterior abdominal wall are stable. PELVIS: Bladder: There is mild diffuse thickening of the urinary bladder wall. This may be due to underdiste ntion. Reproductive Organs: Unremarkable as visualized. Lymph Nodes: Within normal limits. Bones: Within normal limits. IMPRESSION: 1. Left upper and left lower lobe infiltrates which may represent atelectasis or pneumonia. Please c orrelate clinically. 2. There has been interval placement of a percutaneous cholecystostomy tube. There is air now seen w ithin the gallbladder lumen. The gallbladder wall appears thickened and there is pericholecystic inf lammation. There is a stone seen within the gallbladder. No biliary ductal dilatation is seen. 3. Large amount of stool throughout the colon suggesting constipation. RADIATION DOSE DELIVERED: 2,563.49mGy.cm Total DLP DATA REPOSITORY: All CT scans at this facility are submitted to the National Radiology Data Registry (NRDR) Dose Index Registry (DIR) with the [employer] (ACR). RADIATION OPTIMIZATION: All CT scans at this facility use at least one of these dose optimization te chniques: automated exposure control; mA and/or kV adjustment per patient size (includes targeted exa ms where dose is matched to clinical indication); or iterative reconstruction.
[2023-11-30] VITALS (38 sets, daily range): BP systolic 93–129; BP diastolic 57–78; PULSE 74–95; RESP 18–25; TEMP 36–36.8; O2SAT 92–99
[2023-11-30] MEDS: DOXYCYCLINE 100 MG in Normal Saline 100 ML IVPB ×3 (01:21→23:37)
[2023-11-30] MEDS: MORPHine 2 MG/ML SYR IVP ×3 (01:29→08:08)
[2023-11-30] MEDS: ACETAMINOPHEN 1,000 MG/100 ML BTL 400 MG IVPB (03:08)
[2023-11-30] MEDS: VANCOMYCIN/WATER (PEG) 1 GM/200 ML BAG IV ×2 (06:01→18:45)
[2023-11-30 06:38] LABS: Abs Immature Grans 0.19 10^3/uL (0.0-0.06); Absolute Monocyte Count 1.35 10^3/uL (0.1-0.8); Absolute Neutrophil Count 19.86 10^3/uL (1.2-6.7); Basophils % 0.2 %; Eosinophils % 0.2 %; HCT 29.1 % (36.0-46.0); HGB 9.1 g/dL (11.2-15.7); Immature Grans % 0.8 %; Lymphocytes % 6.4 %; MCH 25.6 pg (27.0-33.0); MCHC 31.3 % (32.0-36.0); MCV 82 fL (80-95); MPV 8.7 fL (8.0-11.0); Monocytes % 5.9 %; Neutrophils % 86.5 %; Platelet Count 321 10^3/uL (130-400); RBC 3.56 10^6/uL (3.93-5.22); RDW-SD 48.1 fL; WBC 22.96 10^3/uL (4.4-10.8)
[2023-11-30 06:39] LABS: Absolute Basophil Count 0.05 10^3/uL (0.0-0.2); Absolute Eosinophil Count 0.05 10^3/uL (0.0-0.7); Absolute Lymphocyte Count 1.47 10^3/uL (1.2-3.4)
[2023-11-30 06:55] LABS: ALT 30 U/L (14-59); AST 23 U/L (15-37); Alkaline Phosphatase 105 U/L (46-116); Anion Gap 9.2 mmol/L (3-11); BUN 18 mg/dL (7-18); Bilirubin, Total 0.6 mg/dL (0.2-1.0); CO2 26.8 mmol/L (21.0-32.0); CREATININE 0.8 mg/dL (0.55-1.02); Calcium 8.3 mg/dL (8.5-10.1); Chloride 100 mmol/L (98-107); Estimated GFR 77.27 (mL/min/1.73m2); Glucose 224 mg/dL (74-106); Potassium 4.1 mmol/L (3.5-5.1); Sodium 136 mmol/L (136-145); Total Protein 7.1 g/dL (6.4-8.2)
[2023-11-30] MEDS: Normal Saline Flush 10 ML SYR IVP ×3 (07:29→21:09)
[2023-11-30] MEDS: Pantoprazole 40 MG VIAL IVP (07:29)
[2023-11-30] MEDS: Heparin 5,000 UNITS/ML VIAL 5000 UNITS SC ×2 (07:29→21:05)
--- NOTE | 2023-11-30 08:29 | PGE_ITS ---
Date of Service Date of service: 11/30/23 Time of Service: 08:29 Assessment and Plan Assessment and plan (1) Cholecystitis: Status: Acute Assessment and plan: POD # 1 s/p open cholecystectomy She looks much improved overall, WBC decreasing. It was clearly the right choice to proceed with the surgery yesterday. She is back on Unasyn and vanco post operatively (not meropenem) which is fine given clinical improvement. Considre stopping vanco tomorrow unless cultures grow MRSA (2) Pneumonia: Status: Acute Assessment and plan: Not totally clear on imaging, but with cough and hypoxia prudent to cover. Abdominal pain could be contributing to tachypnea and some atelectasis as well, get IS. On Unasyn as above, MRSA swab positive so continue vancomycin for now and doxycycline for atypicals. (3) Anemia in chronic illness: Status: Acute Assessment and plan: stable, post op, monitor (4) Poorly controlled type 2 diabetes mellitus with peripheral neuropathy: Status: Acute Assessment and plan: Had very poor control at first admission, was improving with titration of insulin. I'd like to keep her 120-180 range. Minimal po so I cut the basal insulin and changed to low dose sliding scale, but will likely need more insulin when she starts eating more. (5) CHF (congestive heart failure): Assessment and plan: She has a history of HFpEF, but no active CHF in recent admissions. Echo from 10/18/23 showed LVEF 50%, mild concentric LVH, RVSP of 34. I don't think she is fluid overloaded now overall, she does have rales in lungs but likely atelectasis. Monitor fluid status, try not to overdo fluids. Qualifiers: Heart failure type: diastolic Heart failure chronicity: chronic Qualified Code(s): I50.32 - Chronic diastolic (congestive) heart failure (6) Urinary tract infection: Assessment and plan: U/a was contaminated on admission, no culture sent. She is no longer having urinary symptoms, so I don't think this is playing a role clinically. Qualifiers: Urinary tract infection type: acute cystitis Hematuria presence: without hematuria Qualified Code(s): N30.00 - Acute cystitis without hematuria (7) Hypothyroid: Assessment and plan: outpatient levothyroxine when taking po again. (8) Unstageable pressure ulcer of right heel: Status: Acute Assessment and plan: this has looked much better than previous admission and does not look infected. Continue wound care/offloading Subjective Subjective Patient reports: denies bowel movement, nausea, vomiting, shortness of breath or fever Interval history since last seen: POD #1 s/p open cholecycstectomy Feeling better. She has pain, getting morphine, but hurts to breath deeply. She did have some clears. Exam Narrative Exam Narrative: GEN: Much more alert, interactive, oriented. Uncomfortable with movement but no acute distress at rest. LUNGS: less tachypneic, rales in both bases of lungs, clear superiorly, no wheezing CV: RRR with no murmurs, gallops, or rubs. ABD: hypoactive bowel sounds, tender to palpation in the epigastrum and RUQ. No guarding/rebound. not distended, MARCO ANTONIO in place EXT: no cyanosis, clubbing, extremities warm. trace bilateral edema to shins. SKIN: dry, no rash, dressing over incision c/d/i Objective Last Vital Signs Temp 36 C L 11/30/23 04:25 Pulse 83 11/30/23 05:01 Resp 21 11/30/23 05:01 BP 125/76 11/30/23 05:01 Pulse Ox 96 11/30/23 05:01 Laboratory Results - last 24 hr 11/29/23 11/29/23 11/29/23 05:50 12:37 18:25 WBC 31.03 H* RBC 3.61 L Hgb 9.5 L Hct 28.5 L MCV 79 L MCH 26.3 L MCHC 33.3 RDW 16.0 H Plt Count 403 H MPV 9.1 Immature Gran % 0.0 Neutrophils % 87.0 Band Neutrophils % 4 Lymphocytes % 4.0 Monocytes % 5.0 Eosinophils % 0.0 Basophils % 0.0 Nucleated RBC % 0.0 Absolute Neutrophils 28.24 H Absolute Lymphocytes 1.24 Absolute Monocytes 1.55 H Absolute Eosinophils 0.00 Absolute Basophils 0.00 RBC Morphology Normal Sodium 132 L Potassium 4.2 Chloride 96 L Carbon Dioxide 25.9 Anion Gap 10.1 BUN 18 Creatinine 0.8 Est GFR (CKD-EPI 2020) 77.27 Glucose 285 H Calcium 8.4 L Magnesium 1.8 Total Bilirubin AST ALT Alkaline Phosphatase Total Protein Albumin ABO/Rh O Positive Antibody Screen NEGATIVE 11/30/23 11/30/23 05:35 06:25 WBC 22.96 H RBC 3.56 L Hgb 9.1 L Hct 29.1 L MCV 82 MCH 25.6 L MCHC 31.3 L RDW 16.0 H Plt Count 321 MPV 8.7 Immature Gran % 0.8 Neutrophils % 86.5 Band Neutrophils % Lymphocytes % 6.4 Monocytes % 5.9 Eosinophils % 0.2 Basophils % 0.2 Nucleated RBC % 0.0 Absolute Neutrophils 19.86 H Absolute Lymphocytes 1.47 Absolute Monocytes 1.35 H Absolute Eosinophils 0.05 Absolute Basophils 0.05 RBC Morphology Sodium Cancelled 136 Potassium Cancelled 4.1 Chloride Cancelled 100 Carbon Dioxide Cancelled 26.8 Anion Gap Cancelled 9.2 BUN Cancelled 18 Creatinine Cancelled 0.8 Est GFR (CKD-EPI 2020) Cancelled 77.27 Glucose Cancelled 224 H Calcium Cancelled 8.3 L Magnesium Total Bilirubin Cancelled 0.6 AST Cancelled 23 ALT Cancelled 30 Alkaline Phosphatase Cancelled 105 Total Protein Cancelled 7.1 Albumin Cancelled 2.0 L ABO/Rh Antibody Screen Time Spent with Patient Time Spent with Patient: 35-49 minutes Time was spent: preparing to see the patient(eg.review tests), obtaining and/or reviewing separately otained hiistory, ordering medications,tests, procedures, referring, communicating with other health student career development specialist, indepentently interpreting results and counseling the patient
--- NOTE | 2023-11-30 08:41 | CMPROGNOTE_ITS ---
Date of service: 11/30/23 Time of Service: 08:41 Care Management Progress Note Progress Note Text Progress Note Text: Nilam is POD#1, s/p Open Cholecystectomy for acute on chronic cholecystitis. She is awake, sitting in her chair, watching TV and brushing her hair when CM met with her. She is planning on returning to the [facility] for STR when medically ready. She currently has a MARCO ANTONIO drain and requires IV morphine for pain. CM following. Discharge Potential Discharge Needs: PT Evaluation Anticipated Barriers to Discharge: None Identified Patient/Family Education Needs: Review discharge instructions, discuss Ask Me Three Transportation: RCT RCT Transportation: Wheel chair van Plan: Anticipate Nilam will discharge back to the [facility] for STR when medically cleared. Pt will follow up with facility/community providers and her discharge plan of care as instructed. RCT w/c van will transport. SDOH(Care Management) Screening Will the Patient Participate in the Screening?: Unable to obtain
[2023-11-30] MEDS: Insulin Aspart 300 UNITS/3 ML PEN SC ×3 (08:43→17:50)
--- NOTE | 2023-11-30 09:54 | W.ANESPOSTOP ---
Postoperative Evaluation Date, Time and Location Date Performed: 11/30/23 Time Performed: 09:54 Patient Location: Intensive Care Unit Vital Signs Most Recent Imported Vital Signs: Most Recent Vital Signs Temp Pulse Resp BP Pulse Ox 36 C L 83 21 125/76 94 11/30/23 04:25 11/30/23 05:01 11/30/23 05:01 11/30/23 05:01 11/30/23 09:23 Pain Score Most Recent Pain Score: Most Recent Pain Score Pain Level 7 11/30/23 08:08 Assessment Mental Status: Awake (Alert & Oriented to Patient Baseline) Airway and Respiratory Function: Patent airway with normal (patient baseline) respiratory exam Cardiovascular Function: Hemodynamically Stable Hydration Status: Adequately Hydrated Nausea & Vomiting: No Nausea or Vomiting Pain: Pain is tolerable per patient Peripheral Nerve Block: Patient did not receive a nerve block
[2023-11-30] MEDS: Normal Saline 1,000 ML 75 ML IV (10:25)
--- NOTE | 2023-11-30 10:59 | PGE_ITS ---
Date of Service Date of service: 11/30/23 Time of Service: 11:00 Assessment and Plan Assessment and plan (1) Cholecystitis: Status: Acute Assessment and plan: (a) Overall, doing quite well POD#1, s/p Open Cholecystectomy (b) Will decrease IVF rate (c) Will bump diet to GI soft, low fat (d) Remove Love catheter today (e) Check AM labs, 11/30 (f) Possible transfer to [facility] this afternoon. Kirit Tejeda D.O. Subjective Subjective Interval history since last seen: Patient seen and examined on morning rounds. Now POD#1, s/p Open Cholecystectomy for acute on chronic cholecystitis with cholelithiasis and failed cholecystostomy tube. Patient sitting upright in chair with hair brushed. Appears much better than pre-op yesterday. Exam Narrative Exam Narrative: Afebrile, stable vital signs, conversational, good-spirited. WBC 31,000 --> 22,000. Not requiring any pressors or special agents at this time. Eyes Other: Non-icteric Neck Other: Supple Chest Other: Non-tachycardic Resp Other: Non-tachypneic GI Other: Soft, surgical dressings are in place. About 50ml output from MARCO ANTONIO drain. BS are present. There is no guarding and no rebound. Neuro Other: No gross focal deficits Extrem Other: There is no calf pain. Objective Last Vital Signs Temp 98.2 F 11/30/23 08:45 Pulse 83 11/30/23 05:01 Resp 21 11/30/23 05:01 BP 125/76 11/30/23 05:01 Pulse Ox 94 11/30/23 09:23 Laboratory Results - last 24 hr 11/29/23 11/29/23 11/30/23 12:37 18:25 05:35 WBC RBC Hgb Hct MCV MCH MCHC RDW Plt Count MPV Immature Gran % Neutrophils % Lymphocytes % Monocytes % Eosinophils % Basophils % Nucleated RBC % Absolute Neutrophils Absolute Lymphocytes Absolute Monocytes Absolute Eosinophils Absolute Basophils Sodium 132 L Cancelled Potassium 4.2 Cancelled Chloride 96 L Cancelled Carbon Dioxide 25.9 Cancelled Anion Gap 10.1 Cancelled BUN 18 Cancelled Creatinine 0.8 Cancelled Est GFR (CKD-EPI 2020) 77.27 Cancelled Glucose 285 H Cancelled Calcium 8.4 L Cancelled Magnesium 1.8 Total Bilirubin Cancelled AST Cancelled ALT Cancelled Alkaline Phosphatase Cancelled Total Protein Cancelled Albumin Cancelled ABO/Rh O Positive Antibody Screen NEGATIVE 11/30/23 06:25 WBC 22.96 H RBC 3.56 L Hgb 9.1 L Hct 29.1 L MCV 82 MCH 25.6 L MCHC 31.3 L RDW 16.0 H Plt Count 321 MPV 8.7 Immature Gran % 0.8 Neutrophils % 86.5 Lymphocytes % 6.4 Monocytes % 5.9 Eosinophils % 0.2 Basophils % 0.2 Nucleated RBC % 0.0 Absolute Neutrophils 19.86 H Absolute Lymphocytes 1.47 Absolute Monocytes 1.35 H Absolute Eosinophils 0.05 Absolute Basophils 0.05 Sodium 136 Potassium 4.1 Chloride 100 Carbon Dioxide 26.8 Anion Gap 9.2 BUN 18 Creatinine 0.8 Est GFR (CKD-EPI 2020) 77.27 Glucose 224 H Calcium 8.3 L Magnesium Total Bilirubin 0.6 AST 23 ALT 30 Alkaline Phosphatase 105 Total Protein 7.1 Albumin 2.0 L ABO/Rh Antibody Screen Time Spent with Patient Time Spent with Patient: 25-34 minutes Time was spent: preparing to see the patient(eg.review tests), ordering medications,tests, procedures, referring, communicating with other health child daycare worker, indepentently interpreting results, counseling the patient and care coordination
[2023-11-30] MEDS: HYDROmorphone 2 MG/ML SYR 1 MG IVP ×3 (12:36→23:37)
--- NOTE | 2023-11-30 13:28 | PT.INIE ---
PT Notes Visit Reasons: Pneumonia, Cholecystitis Physical Therapy Inpatient Initial Evaluation Date: 11/30/2023 Referring Doctor: Dr. Pillai PT Orders: PT CONSULT: Eval for assistive device; fall safety assessment Precautions: Fall. Standard. Activity as tolerated. Patient Profile/Admitting Diagnosis: Nilam is a 73-year-old female with past medical history significant for CVA readmitted for management of acute cholecystitis s/p cholecystectomy 11/29/23, pneumonia, unstageable pressure ulcer of R heel, poorly controlled type II DM, and CHF. Subjective: Nilam reports that she has just gotten back to bed after walking to the nurses station with assistance from nursing. She reports that she is having pain in her abdomen getting in and out of bed, and getting back into bed was a challenge for her. She declines ambulation at time of consultation. Social History/Home Situation: Lived in a SNF in [place] since April to August of this year. Now resident of the [facility] since most recent discharge from this hospital. Is working with PT at the [facility]. Equipment Owned/DME: Used wheelchair for long distances in previous SNF. Objective: General Observation: Resting in bed. IV x 2 in LUE, x 1 in RUE. Supplemental O2 via nasal cannula. Telemetry in place. Bilat intermittent compression devices to LEs. High BMI. Mental Status: Alert and oriented as to person, place, time, and purpose. Able to pay attention, focus, and respond appropriately. Pain: As above. Maintains RUE to right side of abdomen throughout session. Cries out in pain with movement. Vital Signs: Closely monitored by nursing staff ROM: Right Upper Extremity: Shoulder Flexion WFL. Shoulder abduction WFL. Elbow flexion WFL. Wrist flexion WFL. Functional opening and closing of hand WFL. Left Upper Extremity: Shoulder Flexion 60*. Elbow flexion 60* due to IV lines. Wrist flexion WFL. Functional opening and closing of hand WFL. Right Lower Extremity: Hip flexion WFL. Hip abduction WFL. Knee flexion WFL. Ankle dorsiflexion to neutral only. Ankle plantarflexion WFL. Left Lower Extremity: Hip flexion WFL. Hip abduction WFL. Knee flexion 30 degrees to 60 degrees. Knee extension -30 degrees. Ankle dorsiflexion to neutral only. Ankle plantarflexion WFL. Strength: Right Upper Extremity: Shoulder flexors 4/5. Shoulder abductors 4/5. Elbow flexors 4/5. Elbow extensors 4/5. Instrument Designer weak bilat. Left Upper Extremity: Shoulder flexors 3-/5. Shoulder abductors not assessed. Elbow flexors 3-/5. Elbow extensors 4-/5. Instrument Designer weak bilat. Right Lower Extremity: Hip flexors 3/5. Hip abductors 4-/5. Knee flexors 4/5. Knee extensors 4-/5. Ankle dorsiflexors 3-/5. Ankle plantarflexors 4-/5. Left Lower Extremity: Hip flexors 3-/5. Hip abductors 3-/5. Knee flexors 3-/5. Knee extensors 3-/5. Ankle dorsiflexors 3-/5. Ankle plantarflexors 3-/5. Bed Mobility/Transfers: Declines all transfers due to pain and fatigue. Is agreeable to scooting up in bed; able to perform small upward scoot, pushing through legs. Requires max A x 2 for full scoot up in bed. She's able to roll onto left side independently. Gait: Declines. Reports that she was able to walk with nursing and FWW x approx 40' just prior to my arrival. Standardized Measure [facility] AM-PAC 6 clicks Basic Mobility Inpatient Short Form: Raw Score: 13 CMS Score: 65% deficit Informed Consent/Education: Patient was instructed in purpose of PT consult and plan of care. Agreeable to proceed with established PT POC to achieve personal goals. Treatment: Instruction in bed exercises and introduction in training for bed mobility. Instructed in the following: ankle pumps x 1 minute heel slides x 10 each hip AB 10x each side within limited range Assessment: Patient presents with clinical signs and symptoms consistent with current/admitting diagnoses that have resulted to mobility limitations, gait instability, generalized weakness, and overall ADL decline. Assessment is very limited today due to patient's level of fatigue, as she ambulated just prior to PT evaluation. She was apparently able to ambulate ~40' with FWW and assistnce from nursing. She currently demonstrates the following impairment level findings: 1. Decreased strength to B UE/LE major muscle groups 2. Impaired standing balance 3. Impaired activity tolerance Impairments are contributing to the following functional limitations: 1. Decline in bed mobility skills 2. Decline in transfer skills 3. Difficulty with ambulation without assistive device and physical assistance 4. Increased completion time for mobility ADL performance 5. Increased risk for falls Patient is assessed as a 45728 moderate complexity based on the following: History: 73-year-old female with past medical history as indicated above Examination: Demonstrable impairment in strength, balance, and mobility level with underlying impairments and functional limitations as exhibited above as well as deficit score of 65% utilizing the [facility] Mobility Inpatient Short Form Presentation: Evolving Decision Makin moderate complexity Goals: Goals X1 week 1. Supine-Sit independent 2. Sit-Supine independent 3. Sit-Stand independent 4. Stand-Sit independent with FWW 5. Bed-Chair independent with FWW 6. Chair-Bed independent with FWW 7. Independent gait on level surface with use of FWW for at least 200 feet without report of pain nor dyspnea 8. Independent stair negotiation while holding onto B rails for at least 5 steps without report of pain nor dyspnea 9. Independent with home exercise program 10. Good static and dynamic standing balance/tolerance Plan of Care/Treatment Plan: 1-2x/day, 7 days/week x 1 week. Plan of care has been reviewed with the LENS ENGRAVER providing the service under Physical Therapy direction. Initiate Physical Therapy intervention for pain management as needed, strengthening, bed mobility, transfers, gait, stairs, balance training, and use of assistive device. DISCHARGE RECOMMENDATIONS: [X] Return to SNF and resume PT services for functional mobility training TREATMENT CODE/TIME: 65438 x 20 minutes ([id number]). Thank you for the opportunity to participate in the care of this patient. Christine Soto, PT, DPT [facility] All Active Problems (Updated 11/29/23 @ 10:19 by Harvey Pillai) Pneumonia (Acute) Cholecystitis (Acute) Anemia in chronic illness (Acute) Transaminitis (Acute) Obesity (Chronic) Unstageable pressure ulcer of right heel (Acute) Poorly controlled type 2 diabetes mellitus with peripheral neuropathy (Acute) Low serum iron (Acute) Lumbar back pain with radiculopathy affecting right lower extremity (Acute) Ambulatory dysfunction (Acute) Weakness (Acute) Medical History Hypothyroid Gram-negative bacteremia Pleural effusion, left Hyperglycemia due to type 2 diabetes mellitus Urinary tract infection Palliative care patient Physician orders for life-sustaining treatment (POLST) form indicates patient wish for [id number] status ACP (advance care planning) Stroke Diabetes CHF (congestive heart failure) 2020, pt. denies any deficits now Surgical History History of ERCP S/P tonsillectomy
[2023-11-30] MEDS: Furosemide 40 MG TAB PO (16:46)
[2023-11-30] MEDS: metFORMIN 500 MG TAB PO (17:49)
[2023-11-30] MEDS: traZODone 50 MG TAB PO (21:07)
[2023-11-30] MEDS: Insulin Glargine 300 UNITS/3 ML PEN 20 UNITS SC (21:08)
[2023-12-01] MEDS: Normal Saline 1,000 ML 50 ML IV (02:51)
[2023-12-01 03:31] VITALS: BP 112/64; PULSE 70; RESP 19; TEMP 36.4; O2SAT 93
[2023-12-01] MEDS: VANCOMYCIN/WATER (PEG) 1 GM/200 ML BAG IV ×2 (06:03→18:26)
[2023-12-01 07:35] VITALS: BP 121/73; PULSE 93; RESP 17; TEMP 36.4; O2SAT 94
[2023-12-01] MEDS: Pantoprazole 40 MG TABCR PO (08:18)
[2023-12-01] MEDS: Insulin Aspart 300 UNITS/3 ML PEN SC ×3 (08:18→17:11)
[2023-12-01] MEDS: Docusate Sodium 100 MG CAP PO (08:19)
[2023-12-01] MEDS: Atorvastatin 40 MG TAB PO (08:19)
[2023-12-01] MEDS: Furosemide 40 MG TAB PO ×2 (08:19→16:27)
[2023-12-01] MEDS: Ferrous Sulfate 325 MG TAB PO (08:19)
[2023-12-01] MEDS: Magnesium Oxide 400 MG TAB PO (08:20)
[2023-12-01] MEDS: Potassium Chloride 20 MEQ TABCR PO ×2 (08:20→19:46)
[2023-12-01] MEDS: metFORMIN 500 MG TAB PO ×2 (08:20→17:11)
[2023-12-01] MEDS: Spironolactone 25 MG TAB PO (08:20)
[2023-12-01] MEDS: Normal Saline Flush 10 ML SYR IVP ×3 (08:45→20:07)
[2023-12-01] MEDS: HYDROmorphone 2 MG/ML SYR 1 MG IVP ×2 (10:12→19:57)
[2023-12-01 10:21] LABS: ALT 21 U/L (14-59); AST 12 U/L (15-37); Albumin 1.8 g/dL (3.4-5.0); Alkaline Phosphatase 93 U/L (46-116); Anion Gap 8.6 mmol/L (3-11); BUN 14 mg/dL (7-18); Bilirubin, Total 0.5 mg/dL (0.2-1.0); CO2 27.4 mmol/L (21.0-32.0); CREATININE 0.8 mg/dL (0.55-1.02); Calcium 7.9 mg/dL (8.5-10.1); Chloride 97 mmol/L (98-107); Estimated GFR 77.27 (mL/min/1.73m2); Glucose 193 mg/dL (74-106); Potassium 3.4 mmol/L (3.5-5.1); Sodium 133 mmol/L (136-145); Total Protein 6.5 g/dL (6.4-8.2)
[2023-12-01] MEDS: Heparin 5,000 UNITS/ML VIAL 5000 UNITS SC (10:23)
--- NOTE | 2023-12-01 10:36 | W.PM.PROGNOT ---
Date of Service Date of service: 12/01/23 Time of Service: 10:36 Assessment and Plan Assessment and plan (1) Cholecystitis: Status: Acute Assessment and plan: I think she really is doing pretty well after open cholecystectomy. Will continue the antibiotics through today, and see how her white blood cell count continues to respond. I like to see her out of bed a little more. We reviewed the importance of using the spirometer, and clearing her secretions especially can. Subjective Subjective Interval history since last seen: Nilam says she is feeling a little better today. She is still coughing, but she says her work of breathing is improved. Pain seems well-controlled. She is able to tolerate some liquids, but has not had any significant food yet. Exam Resp Other: Lungs are little bit coarse, but she is got strong cough. GI Other: Abdomen is soft and mildly distended. Drain is serosanguineous and low volume. Bandages are clean. Objective Last Vital Signs Temp 97.5 F L 12/01/23 07:35 Pulse 93 H 12/01/23 07:35 Resp 17 12/01/23 07:35 BP 121/73 12/01/23 07:35 Pulse Ox 94 12/01/23 07:35 Laboratory Results - last 24 hr 11/30/23 11:58 Random Vancomycin 17.0 Time Spent with Patient Time Spent with Patient: <25 minutes Time was spent: preparing to see the patient(eg.review tests), indepentently interpreting results and counseling the patient
[2023-12-01 11:06] LABS: WBC 10.99 10^3/uL (4.4-10.8)
[2023-12-01 11:07] LABS: HCT 24.6 % (36.0-46.0); MCH 25.7 pg (27.0-33.0); MCHC 31.7 % (32.0-36.0); MCV 81 fL (80-95); RBC 3.03 10^6/uL (3.93-5.22); RDW 16.2 % (11.7-14.6); RDW-SD 48.2 fL
[2023-12-01 11:11] LABS: Absolute Basophil Count 0.02 10^3/uL (0.0-0.2); Absolute Eosinophil Count 0.33 10^3/uL (0.0-0.7); Absolute Lymphocyte Count 0.95 10^3/uL (1.2-3.4); Absolute Monocyte Count 0.74 10^3/uL (0.1-0.8); Basophils % 0.2 %; Immature Grans % 0.6 %; Lymphocytes % 8.6 %; Monocytes % 6.7 %; Neutrophils % 80.9 %
[2023-12-01 11:12] LABS: Abs Immature Grans 0.07 10^3/uL (0.0-0.06); Absolute Neutrophil Count 8.88 10^3/uL (1.2-6.7)
[2023-12-01 11:13] LABS: Diff Comment PLT Morph Reviewed; Hypochromasia 2+
[2023-12-01 11:14] LABS: HGB 7.8 g/dL (11.2-15.7)
[2023-12-01 11:39] VITALS: BP 98/53; PULSE 67; RESP 17; TEMP 36.5; O2SAT 96
[2023-12-01] MEDS: DOXYCYCLINE 100 MG in Normal Saline 100 ML IVPB (12:24)
--- NOTE | 2023-12-01 12:50 | CMPROGNOTE_ITS ---
Date of service: 12/01/23 Time of Service: 12:50 Care Management Progress Note Progress Note Text Progress Note Text: S/O:Nilam was lying in bed when CM met with her. She was very pleasant and agreeable to conversation, although she admitted to being in pain. She had an open cholecystectomy and stated that even when she has had pain medication, it hurts when she coughs. She knows to use a pillow to splint her incision but she shared that while it helps, it still hurts. On CT scan done on 11/29/23, there was a question of pneumonia, however her lungs are clear on exam per provider. Nilam's WBC has come down and she remains afebrile. A: Nilam is a 73 year old woman admitted on 11/29/23 with cholecystitis Discharge Potential Discharge Needs: Surgical F/U Appt Anticipated Barriers to Discharge: None Identified Patient/Family Education Needs: Review discharge instructions, discuss Ask Me Three Transportation: Private vehicle Plan: Anticipate Nilam will discharge back to the [facility] for STR when medically cleared. She will follow up with facility/community providers and her discharge plan of care as instructed. [facility] w/c van will transport. SDOH(Care Management) Screening Will the Patient Participate in the Screening?: Yes Do you worry about having a steady place to live?: no Problems where you live: no known problems In the past 12 months, have you had to go without electric, gas, oil or water in your home?: no Have you or anyone in your house had to go without enough food to eat?: no Has lack of transportation kept you from medical appointments or from doing things needed for daily living?: no Has anyone in your support network made you feel unsafe for any reason?: no
--- NOTE | 2023-12-01 15:19 | W.PM.PROGNOT ---
Date of Service Date of service: 12/01/23 Time of Service: 15:19 Assessment and Plan Assessment and plan (1) Cholecystitis: Status: Acute Assessment and plan: POD # 2 s/p open cholecystectomy, continue meropenem and vancomycin (MRSA positive screen), WBC trending down to 10,990 from peak of 31,000. (2) Pneumonia: Status: Acute Assessment and plan: I am not convinced that this is pneumonia, she is not bringing up purulent sputum, CT looks like this could be atelectasis> I will drop the doxycycline, but continue her meropenem and vancomycin (3) Anemia in chronic illness: Status: Acute Assessment and plan: Hb down a bit today at 7.8 gm but no evidence of bleeding. Will trend for now. Prior workup in October did not support iron deficiency (normal ferritin, normal iron, low TIBC) and normal B12 and folate, so likely this is anemia of chronic disease w/ some superimposed dilution. I will stop iv fluids, continue w/ her lasix and her spironolactone, continue PPI, monitor hemogram (4) Poorly controlled type 2 diabetes mellitus with peripheral neuropathy: Status: Acute Assessment and plan: continue basal/bolus insulin coverage. will adjust her Lantus as her glucose is in the mid 200's. (5) CHF (congestive heart failure): Assessment and plan: She has a history of HFpEF, but no active CHF in recent admissions. Echo from 10/18/23 showed LVEF 50%, mild concentric LVH, RVSP of 34. Qualifiers: Heart failure chronicity: chronic Heart failure type: diastolic Qualified Code(s): I50.32 - Chronic diastolic (congestive) heart failure (6) Urinary tract infection: Assessment and plan: U/a was contaminated on admission, no culture sent. She is no longer having urinary symptoms, so I don't think this is playing a role clinically. Qualifiers: Hematuria presence: without hematuria Urinary tract infection type: acute cystitis Qualified Code(s): N30.00 - Acute cystitis without hematuria (7) Hypothyroid: Assessment and plan: outpatient levothyroxine when taking po again. Qualifiers: Hypothyroidism type: acquired Qualified Code(s): E03.9 - Hypothyroidism, unspecified (8) Unstageable pressure ulcer of right heel: Status: Acute Assessment and plan: this has looked much better than previous admission and does not look infected. Continue wound care/offloading Subjective Subjective Interval history since last seen: Nilam still w/ abdominal pain although not as bad as on admission. Still little appetite. She picked at her lunch. Exam Narrative Exam Narrative: Nilam is sitting up in bed, she appears tired but not toxic, she is alert, oriented, she was picking at her meal LUngs: clear anteriorly Heart: RRR Abdomen: she has MARCO ANTONIO drain on the right w/ some sanguinous drainage Soft, mild to moderate tenderness in RUQ, normal bowel sounds Extremities: w/out edema Objective Last Vital Signs Temp 36.5 C 12/01/23 11:39 Pulse 67 12/01/23 11:39 Resp 17 12/01/23 11:39 BP 98/53 L 12/01/23 11:39 Pulse Ox 96 12/01/23 11:39 Laboratory Results - last 24 hr 12/01/23 07:00 WBC 10.99 H RBC 3.03 L Hgb 7.8 L Hct 24.6 L MCV 81 MCH 25.7 L MCHC 31.7 L RDW 16.2 H Plt Count MPV Immature Gran % 0.6 Neutrophils % 80.9 Lymphocytes % 8.6 Monocytes % 6.7 Eosinophils % 3.0 Basophils % 0.2 Nucleated RBC % 0.0 Absolute Neutrophils 8.88 H Absolute Lymphocytes 0.95 L Absolute Monocytes 0.74 Absolute Eosinophils 0.33 Absolute Basophils 0.02 Hypochromasia 2+ Sodium 133 L Potassium 3.4 L Chloride 97 L Carbon Dioxide 27.4 Anion Gap 8.6 BUN 14 Creatinine 0.8 Est GFR (CKD-EPI 2020) 77.27 Glucose 193 H Calcium 7.9 L Total Bilirubin 0.5 AST 12 L ALT 21 Alkaline Phosphatase 93 Total Protein 6.5 Albumin 1.8 L Time Spent with Patient Time Spent with Patient: 35-49 minutes Time was spent: preparing to see the patient(eg.review tests), ordering medications,tests, procedures, referring, communicating with other health progressive care manager, indepentently interpreting results, counseling the patient and care coordination
[2023-12-01 16:18] VITALS: BP 111/66; PULSE 82; RESP 17; TEMP 36.9; O2SAT 98
--- NOTE | 2023-12-01 16:29 | PT.INTREAT ---
PT Notes Visit Reasons: Pneumonia, Cholecystitis Physical Therapy Inpatient Treatment Note Date: 12/01/2023 Precautions: Fall. Standard and Contact precautions in place for ESBL in urine. Activity as tolerated. Subjective: Complained of pain in R abdominal area when she attempted to sit up and stand up. Reported chest pain after activity, vital signs were taken and measured WNL. Objective: General Observation: Resting in bed. Love catheter in place. High BMI. R leg and foot more swollen than L. Mental Status: Alert and oriented as to person, place, time, and purpose. Able to pay attention, focus, and respond appropriately. Pain: As above Vital Signs: BP 11/66 mmHg, 94% on O2 supp, 75 bpm Bed Mobility/Transfers: Minimal cueing provided for use of B hands as needed for support, movement sequence, AD management, and posture to reduce fall risk and minimize pain report Supine to sit with moderate, HOB at 60 degrees Sit to stand with minimal assist of 2 Stand to sit with contact guard assist bed to bedside chair minimal assist of 2 Gait: TRUCK DRIVING Jade assisted for safety Facilitated safe and correct performance of level surface ambulation covering a distance of 10 steps using front-wheeled walker with minimal assist of 2 requiring minimal verbal cueing for limb advancement, AD management, and posture to reduce fall risk and minimize pain report. Decreased step height and length on L. Minimal weight bearing on the R heel. Assessment: Pain in R abdominal area limited ability to it up at edge of bed, needed moderate assist from PT due to pain nad weakness. Plan of Care/Treatment Plan: 1-2x/day, 7 days/week x 1 week. Plan of care has been reviewed with the [facility] [place] HISTORY PROFESSOR providing the service under Physical Therapy direction. Initiate Physical Therapy intervention for pain management as needed, strengthening, bed mobility, transfers, gait, stairs, balance training, and use of assistive device. DISCHARGE RECOMMENDATIONS: [] Home with no services [] [] Home with services [] Home with outpatient PT [] [] SNF for continued rehabilitation [] [] [facility] [] [] SNF versus LTC based on ability to participate and progress [] [X] Return to SNF and resume PT services for functional mobility training TREATMENT CODE/TIME: 37677 x 39 minutes for 3 units (15:47-16:26).
[2023-12-01 19:42] VITALS: BP 112/70; PULSE 82; RESP 16; TEMP 36.7; O2SAT 96
[2023-12-01] MEDS: Insulin Glargine 300 UNITS/3 ML PEN 25 UNITS SC (19:45)
[2023-12-01] MEDS: traZODone 50 MG TAB PO (19:46)
[2023-12-01] MEDS: Acetaminophen 325 MG TAB 650 MG PO (21:56)
[2023-12-01 23:49] LABS: Platelet Count 322 10^3/uL (130-400)
[2023-12-01 23:51] VITALS: BP 99/53; PULSE 75; RESP 16; TEMP 36.5; O2SAT 95
[2023-12-02] MEDS: HYDROmorphone 2 MG/ML SYR 1 MG IVP ×4 (01:35→19:25)
[2023-12-02] MEDS: Heparin 5,000 UNITS/ML VIAL 5000 UNITS SC ×2 (01:36→12:28)
[2023-12-02] MEDS: Normal Saline Flush 10 ML SYR IVP ×7 (01:36→22:10)
[2023-12-02 03:16] VITALS: BP 101/57; PULSE 71; RESP 18; TEMP 36; O2SAT 94
[2023-12-02] MEDS: VANCOMYCIN/WATER (PEG) 1 GM/200 ML BAG IV ×2 (05:25→18:31)
[2023-12-02] MEDS: Levothyroxine 150 MCG TAB PO (06:12)
[2023-12-02 07:18] LABS: Abs Immature Grans 0.04 10^3/uL (0.0-0.06); Absolute Basophil Count 0.02 10^3/uL (0.0-0.2); Absolute Eosinophil Count 0.55 10^3/uL (0.0-0.7); Absolute Lymphocyte Count 2.03 10^3/uL (1.2-3.4); Absolute Monocyte Count 0.92 10^3/uL (0.1-0.8); Absolute Neutrophil Count 5.34 10^3/uL (1.2-6.7); Basophils % 0.2 %; Eosinophils % 6.2 %; HCT 24.8 % (36.0-46.0); HGB 7.9 g/dL (11.2-15.7); Immature Grans % 0.4 %; Lymphocytes % 22.8 %; MCH 25.5 pg (27.0-33.0); MCHC 31.9 % (32.0-36.0); MCV 80 fL (80-95); MPV 9.3 fL (8.0-11.0); Monocytes % 10.3 %; Neutrophils % 60.1 %; Platelet Count 328 10^3/uL (130-400); RDW-SD 46.6 fL
[2023-12-02 07:20] VITALS: BP 109/65; PULSE 62; RESP 16; TEMP 36.3; O2SAT 95
[2023-12-02 07:42] LABS: ALT 16 U/L (14-59); AST 13 U/L (15-37); Albumin 1.8 g/dL (3.4-5.0); Alkaline Phosphatase 88 U/L (46-116); Anion Gap 4.5 mmol/L (3-11); BUN 15 mg/dL (7-18); Bilirubin, Total 0.4 mg/dL (0.2-1.0); CO2 29.5 mmol/L (21.0-32.0); CREATININE 0.9 mg/dL (0.55-1.02); Calcium 8.3 mg/dL (8.5-10.1); Chloride 95 mmol/L (98-107); Estimated GFR 67.08 (mL/min/1.73m2); Glucose 159 mg/dL (74-106); Magnesium 1.2 mg/dL (1.8-2.4); Potassium 3.5 mmol/L (3.5-5.1); Sodium 129 mmol/L (136-145); Total Protein 6.7 g/dL (6.4-8.2)
[2023-12-02 07:54] LABS: PHOSPHORUS < 2.0 mg/dL (2.6-4.7)
[2023-12-02] MEDS: Potassium Chloride 20 MEQ TABCR PO ×3 (07:57→20:14)
[2023-12-02] MEDS: Docusate Sodium 100 MG CAP PO (07:57)
[2023-12-02] MEDS: Spironolactone 25 MG TAB PO (07:57)
[2023-12-02] MEDS: Ferrous Sulfate 325 MG TAB PO (07:57)
[2023-12-02] MEDS: Magnesium Oxide 400 MG TAB PO ×2 (07:57→20:13)
[2023-12-02] MEDS: Pantoprazole 40 MG TABCR PO (07:58)
[2023-12-02] MEDS: Insulin Aspart 300 UNITS/3 ML PEN SC ×3 (07:58→17:15)
[2023-12-02] MEDS: Atorvastatin 40 MG TAB PO (07:58)
[2023-12-02] MEDS: metFORMIN 500 MG TAB PO ×2 (07:58→17:44)
[2023-12-02] MEDS: Furosemide 40 MG TAB PO (07:58)
[2023-12-02] MEDS: Insulin Glargine 300 UNITS/3 ML PEN 10 UNITS SC (07:59)
--- NOTE | 2023-12-02 09:05 | PDOC.CMPRO ---
Date of service: 12/02/23 Time of Service: 09:05 Care Management Progress Note Progress Note Text Progress Note Text: Nilam was sitting up in bed eating lunch when CM met with her. She stated she is feeling a little better, although she does not have much of an appetite. Clinically Nilam is improving and will likely be ready for discharge early next week. Discharge Potential Discharge Needs: PCP F/U Appt and Other (return to SNF) Anticipated Barriers to Discharge: None Identified Patient/Family Education Needs: Review discharge instructions, discuss Ask Me Three Transportation: [facility] SDOH(Care Management) Screening Will the Patient Participate in the Screening?: Yes Do you worry about having a steady place to live?: no Problems where you live: no known problems In the past 12 months, have you had to go without electric, gas, oil or water in your home?: no Have you or anyone in your house had to go without enough food to eat?: no Has lack of transportation kept you from medical appointments or from doing things needed for daily living?: no Has anyone in your support network made you feel unsafe for any reason?: no
[2023-12-02] MEDS: MAGNESIUM SULFATE 4 GM/100 ML BAG IVINF (09:28)
[2023-12-02 11:42] VITALS: BP 104/59; PULSE 71; RESP 18; TEMP 36.5; O2SAT 97
--- NOTE | 2023-12-02 11:42 | PT.INTREAT ---
PT Notes Visit Reasons: Pneumonia, Cholecystitis Date: 12/02/2023 PRECAUTIONS: Fall. Standard and Contact precautions in place for ESBL in urine. Activity as tolerated. SUBJECTIVE: Pt in bed when approached for therapy, agreed to participating with therapy OBJECTIVE: ? PAIN: on incision site VITALS: monitored by nursing Therapeutic Activities 02034: Direct one-on-one instruction in dynamic activities to improve functional performance. ?? BED MOBILITY/TRANSFERS? Rolling L/R: max a Supine-sit: ?max a ? Sit-supine: ?max A ? Sit-stand: ? not performed? Stand-sit: ??not performed ? Bed-Chair:? ?not performed ? Chair-bed: not performed Provided skilled cues and instruction on performance and technique throughout. ? Therapeutic Exercises 26884: Direct one-on-one instruction in therapeutic exercises to develop strength, endurance, range of motion and flexibility. Exercises Supine AAROM SLR [id number] Supine windshield wipers [id number] Supine AAROM knee to chest [id number] Hooklying lateral hip fallouts [id number] Hooklying clamshells [id number] ? Provided skilled instruction in proper exercise performance Provided skilled manual cues to facilitate proper muscle recruitment and/or form: ASSESSMENT:?PT refused OOB activity reporting the pain intensifies when she move, pt education about importance of bed mobility and standing activity to improve circulation and prevent pulmonary disorders, pt agrees and reports understanding but politely refuses doing standing activity. pt reports she would like to try later in the afternoon if possible. PLAN: Continue with global strengthening and general conditioning for improved safety, mobility and activity tolerance until pt is ready for DC. TREATMENT CODE/TIME: 58452l5 15mins (10:45-11:00am)
--- NOTE | 2023-12-02 12:10 | W.PM.PROGNOT ---
Date of Service Date of service: 12/02/23 Time of Service: 12:11 Assessment and Plan Assessment and plan (1) Cholecystitis: Status: Acute Assessment and plan: POD # 3 s/p open cholecystectomy, continue meropenem and vancomycin (MRSA positive screen), WBC trending down to 10,990 from peak of 31,000. (2) Pneumonia: Status: Suspected Assessment and plan: I am not convinced that this is pneumonia, she is not bringing up purulent sputum, CT looks like this could be atelectasis> I will drop the doxycycline, but continue her meropenem and vancomycin I am more concerned that she is fluid overloaded, I will change her po lasix to iv lasix and give her some diuiril as well (3) Anemia in chronic illness: Status: Acute Assessment and plan: Hb stable at 7.9 although down from couple days ago, but no evidence of bleeding. Will trend for now. Prior workup in October did not support iron deficiency (normal ferritin, normal iron, low TIBC) and normal B12 and folate, so likely this is anemia of chronic disease w/ some superimposed dilution. continue PPI, she is on oral iron supplements per surgical service. (4) Poorly controlled type 2 diabetes mellitus with peripheral neuropathy: Status: Acute Assessment and plan: continue basal/bolus insulin coverage. since adjustment of her lantus, am glucose down to 165, lunchtime today is 245, highest yesterday was 250, will add meal time coverage now that she is consuming at least 50% of her meals. (5) CHF (congestive heart failure): Assessment and plan: She has a history of HFpEF, and I think that she is volume overloaded, therefore I will change her oral lasix to iv lasix and add diuril, monitor daily wts, I/O and labs. Qualifiers: Heart failure type: diastolic Heart failure chronicity: chronic Qualified Code(s): I50.32 - Chronic diastolic (congestive) heart failure (6) Hypothyroid: Assessment and plan: outpatient levothyroxine when taking po again. Qualifiers: Hypothyroidism type: acquired Qualified Code(s): E03.9 - Hypothyroidism, unspecified (7) Unstageable pressure ulcer of right heel: Status: Acute Assessment and plan: this has looked much better than previous admission and does not look infected. Continue wound care/offloading Subjective Subjective Interval history since last seen: Nilam says that her abdominal pain is improving, still present but not as severe. However she feels that her chest is congested w/ nonproductive cough. Exam Narrative Exam Narrative: Nilam is sitting up in bed, alert and oriented, no acute distress, watching TV; per her [employer] PRESS OPERATOR she ate about 50 to 70% of her breakfast Lungs: bilateral rales from bases to 1/3 up posterior Heart: RRR, soft systolic murmur Abdomen: MARCO ANTONIO drain w/ minimal serosanguinous drainage, normal bowel sounds, soft, minimal tenderness over right upper quadrant, no guarding Extermities: 1+ to 2 pitting bilateral lower leg/pedal edema; no cyanosis Objective Last Vital Signs Temp 36.5 C 12/02/23 11:42 Pulse 71 12/02/23 11:42 Resp 18 12/02/23 11:42 BP 104/59 L 12/02/23 11:42 Pulse Ox 97 12/02/23 11:42 Laboratory Results - last 24 hr 12/01/23 12/02/23 23:32 06:05 WBC 8.90 RBC 3.10 L Hgb 7.9 L Hct 24.8 L MCV 80 MCH 25.5 L MCHC 31.9 L RDW 16.0 H Plt Count 322 328 MPV 9.3 Immature Gran % 0.4 Neutrophils % 60.1 Lymphocytes % 22.8 Monocytes % 10.3 Eosinophils % 6.2 Basophils % 0.2 Nucleated RBC % 0.0 Absolute Neutrophils 5.34 Absolute Lymphocytes 2.03 Absolute Monocytes 0.92 H Absolute Eosinophils 0.55 Absolute Basophils 0.02 Sodium 129 L Potassium 3.5 Chloride 95 L Carbon Dioxide 29.5 Anion Gap 4.5 BUN 15 Creatinine 0.9 Est GFR (CKD-EPI 2020) 67.08 Glucose 159 H Calcium 8.3 L Phosphorus < 2.0 L Magnesium 1.2 L Total Bilirubin 0.4 AST 13 L ALT 16 Alkaline Phosphatase 88 Total Protein 6.7 Albumin 1.8 L Time Spent with Patient Time Spent with Patient: 35-49 minutes Time was spent: preparing to see the patient(eg.review tests), ordering medications,tests, procedures, referring, communicating with other health healthcare translator, indepentently interpreting results, counseling the patient and care coordination
[2023-12-02] MEDS: Multivitamin TAB 1 TAB PO (12:28)
[2023-12-02 13:15] VITALS: BP 107/66
--- NOTE | 2023-12-02 14:50 | PTTR_ITS ---
PT Notes Visit Reasons: Pneumonia, Cholecystitis Physical Therapy Inpatient Treatment Note Date: 12/02/2023 Precautions: Fall. Standard and Contact precautions in place for ESBL in urine. Activity as tolerated. Subjective: Pain in abdominal area less this afternoon. Anxious about getting up but was happy about how better she did. Objective: General Observation: Resting in bed. Love catheter in place. High BMI. R leg and foot more swollen than L. Mental Status: Alert and oriented as to person, place, time, and purpose. Able to pay attention, focus, and respond appropriately. Pain: As above Vital Signs: Closely monitored by nursing staff Bed Mobility/Transfers: Minimal cueing provided for use of B hands as needed for support, movement sequence, AD management, and posture to reduce fall risk and minimize pain report Supine to sit with moderate, HOB at 60 degrees Sit to stand with minimal assist of 2 Stand to sit with contact guard assist bed to bedside chair minimal assist Gait: Nurse Yoana assisted for safety Facilitated safe and correct performance of level surface ambulation covering a distance of 12 steps using front-wheeled walker with stand by assist of 2 requiring minimal verbal cueing for limb advancement, AD management, and posture to reduce fall risk and minimize pain report. Decreased step height and length on L. Minimal weight bearing on the R heel. Assessment: Pain in R abdominal area somewhat limited ability to sit up at edge of bed, needed moderate assist from PT due to pain and weakness. Pain less today than yesterday. Movement more coordinated and pace improved compared to yesterday. Plan of Care/Treatment Plan: 1-2x/day, 7 days/week x 1 week. Plan of care has been reviewed with the PREPARATION ROOM WORKER providing the service under Physical Therapy direction. Initiate Physical Therapy intervention for pain management as needed, strengthening, bed mobility, transfers, gait, stairs, balance training, and use of assistive device. DISCHARGE RECOMMENDATIONS: [] Home with no services [] [] Home with services [] Home with outpatient PT [] [] SNF for continued rehabilitation [] [] [facility] [] [] SNF versus LTC based on ability to participate and progress [] [X] Return to SNF and resume PT services for functional mobility training TREATMENT CODE/TIME: 29032 x 30 minutes for 2 units (14:50-15:20).
[2023-12-02] MEDS: Protein Nutritional Supplement 16 GM 1 OUNCE PACKET PO ×2 (15:13→20:13)
[2023-12-02] MEDS: Furosemide 40 MG/4 ML VIAL IVP ×2 (15:14→22:10)
[2023-12-02] MEDS: Acetaminophen 325 MG TAB 650 MG PO (17:44)
[2023-12-02 19:56] VITALS: BP 92/56; PULSE 73; RESP 20; TEMP 36.3; O2SAT 93
[2023-12-02] MEDS: traZODone 50 MG TAB PO (20:14)
[2023-12-02] MEDS: Insulin Glargine 300 UNITS/3 ML PEN 25 UNITS SC (20:32)
[2023-12-02 22:05] VITALS: BP 104/63; PULSE 73; RESP 16; TEMP 36.1; O2SAT 96
[2023-12-03] VITALS (8 sets, daily range): BP systolic 93–108; BP diastolic 59–77; PULSE 76–92; RESP 16–20; TEMP 36.1–36.7; O2SAT 86–98
[2023-12-03] MEDS: Heparin 5,000 UNITS/ML VIAL 5000 UNITS SC ×2 (00:54→11:05)
[2023-12-03] MEDS: HYDROmorphone 2 MG/ML SYR 1 MG IVP ×2 (04:08→11:05)
[2023-12-03] MEDS: Furosemide 40 MG/4 ML VIAL IVP ×3 (06:17→22:15)
[2023-12-03] MEDS: Levothyroxine 150 MCG TAB PO (06:17)
[2023-12-03] MEDS: Normal Saline Flush 10 ML SYR IVP ×3 (06:18→21:06)
[2023-12-03] MEDS: VANCOMYCIN/WATER (PEG) 1 GM/200 ML BAG IV ×2 (06:18→17:28)
[2023-12-03 06:39] LABS: Abs Immature Grans 0.05 10^3/uL (0.0-0.06); Absolute Basophil Count 0.02 10^3/uL (0.0-0.2); Absolute Eosinophil Count 0.47 10^3/uL (0.0-0.7); Absolute Lymphocyte Count 2.02 10^3/uL (1.2-3.4); Absolute Monocyte Count 0.94 10^3/uL (0.1-0.8); Absolute Neutrophil Count 4.75 10^3/uL (1.2-6.7); Basophils % 0.2 %; Eosinophils % 5.7 %; HCT 27.8 % (36.0-46.0); Immature Grans % 0.6 %; Lymphocytes % 24.5 %; MCH 25.9 pg (27.0-33.0); MCHC 32.4 % (32.0-36.0); MCV 80 fL (80-95); MPV 8.6 fL (8.0-11.0); Monocytes % 11.4 %; Neutrophils % 57.6 %; Platelet Count 355 10^3/uL (130-400); RBC 3.47 10^6/uL (3.93-5.22); RDW 15.7 % (11.7-14.6); RDW-SD 45.7 fL; WBC 8.25 10^3/uL (4.4-10.8)
[2023-12-03 07:06] LABS: ALT 19 U/L (14-59); AST 15 U/L (15-37); Albumin 2.2 g/dL (3.4-5.0); Alkaline Phosphatase 96 U/L (46-116); Anion Gap 6.5 mmol/L (3-11); BUN 18 mg/dL (7-18); Bilirubin, Total 0.4 mg/dL (0.2-1.0); CO2 31.5 mmol/L (21.0-32.0); CREATININE 0.7 mg/dL (0.55-1.02); Calcium 8.8 mg/dL (8.5-10.1); Chloride 94 mmol/L (98-107); Glucose 147 mg/dL (74-106); Magnesium 1.7 mg/dL (1.8-2.4); Potassium 4.1 mmol/L (3.5-5.1); Sodium 132 mmol/L (136-145); Total Protein 7.7 g/dL (6.4-8.2)
--- NOTE | 2023-12-03 09:16 | PGE_ITS ---
Date of Service Date of service: 12/03/23 Time of Service: 09:16 Assessment and Plan Assessment and plan (1) Cholecystitis: Status: Acute Assessment and plan: 73 yo debilitated woman POD 4 from emergency open cholecystectomy. HD stable. Probably a mild residual ileus. She seems to be tolerating clears ok. Based off of the op note's described findings, my usual practice is to leave the drain for 5 days in these circumstances. I will remove it tomorrow as long as the output remains unchanged. Discussed with hospitalist service managing the medical-side of things . . . PLAN: Adv diet as tolerated Remove drain tomorrow PT/OT as aggressive as possible DC back to SNF tomorrow probably DVT prophylaxis Subjective Subjective Interval history since last seen: No overnight events or issues. I asked her if anything hurts and she says: my stomach I asked her if it is better or worse than yesterday: much better. She denies nausea or vomiting but says she hasn't passed gas yet to her knowledge. She asked me: are you taking the drain out today? Exam Narrative Exam Narrative: Gen: Nontoxic and interactive, elderly and debilitated. No scleral icterus Neuro: Seems AxOx3 Psych: Reasonable mood and affect. Insight and understanding seems good. Chest: non-labored breathing Abdomen: Soft, minimally distended(not much), no tenderness anywhere. The incision looks perfect. Intact parish, no erythema. The drain has scant serous fluid in it. No bile tinge to my eye. Objective Last Vital Signs Temp 97.3 F L 12/03/23 08:16 Pulse 77 12/03/23 08:16 Resp 17 12/03/23 08:16 BP 108/77 12/03/23 08:16 Pulse Ox 98 12/03/23 08:16 Laboratory Results - last 24 hr 12/03/23 12/03/23 06:30 06:30 WBC 8.25 RBC 3.47 L Hgb 9.0 L Hct 27.8 L MCV 80 MCH 25.9 L MCHC 32.4 RDW 15.7 H Plt Count 355 MPV 8.6 Immature Gran % 0.6 Neutrophils % 57.6 Lymphocytes % 24.5 Monocytes % 11.4 Eosinophils % 5.7 Basophils % 0.2 Nucleated RBC % 0.0 Absolute Neutrophils 4.75 Absolute Lymphocytes 2.02 Absolute Monocytes 0.94 H Absolute Eosinophils 0.47 Absolute Basophils 0.02 Sodium 132 L Potassium 4.1 Chloride 94 L Carbon Dioxide 31.5 Anion Gap 6.5 BUN 18 Creatinine 0.7 Est GFR (CKD-EPI 2020) 90.70 Glucose 147 H Calcium 8.8 Magnesium 1.7 L Cancelled Total Bilirubin 0.4 AST 15 ALT 19 Alkaline Phosphatase 96 Total Protein 7.7 Albumin 2.2 L Time Spent with Patient Time Spent with Patient: <25 minutes Time was spent: preparing to see the patient(eg.review tests), obtaining and/or reviewing separately otained hiistory, referring, communicating with other health pediatric acute care unit nurse, indepentently interpreting results, counseling the patient and care coordination
[2023-12-03] MEDS: Protein Nutritional Supplement 16 GM 1 OUNCE PACKET PO ×3 (09:31→20:24)
[2023-12-03] MEDS: Spironolactone 25 MG TAB PO (09:31)
[2023-12-03] MEDS: Potassium Chloride 20 MEQ TABCR PO ×3 (09:32→20:23)
[2023-12-03] MEDS: Multivitamin TAB 1 TAB PO (09:32)
[2023-12-03] MEDS: Atorvastatin 40 MG TAB PO (09:32)
[2023-12-03] MEDS: Docusate Sodium 100 MG CAP PO ×3 (09:32→20:22)
[2023-12-03] MEDS: metFORMIN 500 MG TAB PO ×2 (09:32→17:07)
[2023-12-03] MEDS: Ferrous Sulfate 325 MG TAB PO (09:32)
[2023-12-03] MEDS: Insulin Aspart 300 UNITS/3 ML PEN SC ×3 (09:33→17:07)
[2023-12-03] MEDS: Insulin Glargine 300 UNITS/3 ML PEN 10 UNITS SC (09:33)
[2023-12-03] MEDS: Magnesium Oxide 400 MG TAB PO ×2 (09:33→20:23)
[2023-12-03] MEDS: Pantoprazole 40 MG TABCR PO (09:33)
--- NOTE | 2023-12-03 11:01 | PT.INTREAT ---
Date of service: 12/03/23 Time of Service: 10:10 PT Notes Visit Reasons: Pneumonia, Cholecystitis Inpatient Physical Therapy Treatment Note [facility] Date: 12/03/2023 PRECAUTIONS: Standard, Contact precautions in place for ESBL in urine. Activity as tolerated. SUBJECTIVE: Does not want to get up today. Upon introducing myself she asked me to leave, did not want to do PT today. Complaining to stomach pain. Indicated she was agreeable to doing some leg exercises in bed, but that is all. Complained of bad tasting burp, but did not feel like she was going to vomit. OBJECTIVE: ? PAIN: Complaining of stomach pain, finds it gets worse with movement. ? Therapeutic Exercises ([id number]): Direct one-on-one instruction in therapeutic exercises to develop strength, endurance, range of motion and flexibility. ? Exercises: Agreeable to performing quad sets, light ankle pumps, hip flexion with assist, hip abduction/ adduction with assist and hip IR/ER for 10 reps x 2 sets. Care taken to avoid friction on right heel with bed exercises. ? Provided skilled instruction in proper exercise performance Provided skilled manual cues to facilitate proper muscle recruitment and/or form ASSESSMENT:? Did appear uncomfortable with movement and nurse was notified of Nilam wanting to hold on getting out of bed due to stomach pain. PLAN: Continue to encourage movement and OOB activities as able to tolerate. TREATMENT CODE/TIME: [id number], 10:10 to 10:25 (15')
[2023-12-03] MEDS: Acetaminophen 500 MG TAB 1000 MG PO ×2 (15:06→20:23)
--- NOTE | 2023-12-03 16:03 | PGE_ITS ---
Date of Service Date of service: 12/03/23 Time of Service: 16:03 Assessment and Plan Assessment and plan (1) Cholecystitis: Status: Acute Assessment and plan: POD # 4 s/p open cholecystectomy, continue meropenem and vancomycin (MRSA positive screen), WBC now normal at 8250 from peak of 31,000. remains on meropenem and vancomycin (d# 5 for both), I would continue antibioti cs through her hospital stay, repeat inflammatory markers before stopping i.e. check CRP, procalcitonin and WBC. I think her current abdominal pain may be postop constipation. I will check KUB and ask nursing to give enemas and dulcolax supp. I will also add senna bid and metamucil in addition to her docusate and miralax. I will give her dose of relistor and if this does not work then she may need mag citrate and further enemas. Professional time spent interviewing and examining patient, discussion of goals of care with hospital team (care management, nursing and consulting professionals) was 45 minutes. (2) CHF (congestive heart failure): Assessment and plan: She has a history of HFpEF, and I think that she is volume overloaded, this seems to be improving since lasix iv was added, her wt is down to 98.8 kg from high of 103 kg couple days ago, net intake/output for last 24h has been negative for over 2.5 liters Qualifiers: Heart failure type: diastolic Heart failure chronicity: chronic Qualified Code(s): I50.32 - Chronic diastolic (congestive) heart failure (3) Constipation: Status: Acute Assessment and plan: see #1 above Qualifiers: Constipation type: slow transit constipation Qualified Code(s): K59.01 - Slow transit constipation (4) Anemia in chronic illness: Status: Acute Assessment and plan: Hb stable at 9.0, no evidence for bleeding. Will trend for now. Prior workup in October did not support iron deficiency (normal ferritin, normal iron, low TIBC) and normal B12 and folate, so likely this is anemia of chronic disease w/ some superimposed dilution. continue PPI, she is on oral iron supplements per surgical service. (5) Poorly controlled type 2 diabetes mellitus with peripheral neuropathy: Status: Acute Assessment and plan: continue basal/bolus insulin coverage. since adjustment of her lantus, am glucose down to 174, lunchtime today is 226, highest yesterday was 245, meal time coverage was added yesterday. (6) Hypothyroid: Assessment and plan: outpatient levothyroxine when taking po again. Qualifiers: Hypothyroidism type: acquired Qualified Code(s): E03.9 - Hypothyroidism, unspecified (7) Unstageable pressure ulcer of right heel: Status: Acute Assessment and plan: this has looked much better than previous admission and does not look infected. Continue wound care/offloading Subjective Subjective Interval history since last seen: Nilam feels that her chest congestion is improved. However she states that her abdominal pain is worse today. She denies any vomiting, says she really has not had a BM since surgery (this despite her being on stool softeners and laxatives). Exam Narrative Exam Narrative: Patient is now off oxygen, SPO2 97%, she does not look toxic, she is alert and oriented, just looks tired LUngs: clear anteriorly but w/ bibasilar rales posteriorly Heart: RRR, soft, systolic murmur, no rub or gallops Abdomen: obese, MARCO ANTONIO w/ small amount of serosanguinous drainage (only 30 mL since midnight until this afternoon), she has bowel sounds present, no tenderness in LLQ, RLQ, LUQ but tender over epigastrium and RUQ w/out rebound or involuntary guarding Extremities: trace pedal/ankle edema, no cyanosis, normal movement of her legs/feet; right heel w/ healing superficial ulcer, no purulent drainage, good granulation tissue Objective Last Vital Signs Temp 36.3 C L 12/03/23 15:07 Pulse 83 12/03/23 15:07 Resp 16 12/03/23 15:07 BP 100/63 12/03/23 15:07 Pulse Ox 97 12/03/23 15:19 Laboratory Results - last 24 hr 12/03/23 12/03/23 06:30 06:30 WBC 8.25 RBC 3.47 L Hgb 9.0 L Hct 27.8 L MCV 80 MCH 25.9 L MCHC 32.4 RDW 15.7 H Plt Count 355 MPV 8.6 Immature Gran % 0.6 Neutrophils % 57.6 Lymphocytes % 24.5 Monocytes % 11.4 Eosinophils % 5.7 Basophils % 0.2 Nucleated RBC % 0.0 Absolute Neutrophils 4.75 Absolute Lymphocytes 2.02 Absolute Monocytes 0.94 H Absolute Eosinophils 0.47 Absolute Basophils 0.02 Sodium 132 L Potassium 4.1 Chloride 94 L Carbon Dioxide 31.5 Anion Gap 6.5 BUN 18 Creatinine 0.7 Est GFR (CKD-EPI 2020) 90.70 Glucose 147 H Calcium 8.8 Magnesium 1.7 L Cancelled Total Bilirubin 0.4 AST 15 ALT 19 Alkaline Phosphatase 96 Total Protein 7.7 Albumin 2.2 L Time Spent with Patient Time Spent with Patient: 35-49 minutes Time was spent: preparing to see the patient(eg.review tests), ordering medications,tests, procedures, referring, communicating with other health home health aide caregiver, indepentently interpreting results, counseling the patient and care coordination
[2023-12-03] MEDS: Methylnaltrexone 12 MG/0.6 ML VIAL SC (16:34)
[2023-12-03] MEDS: Bisacodyl 10 MG SUPP PR (16:34)
[2023-12-03] MEDS: Ketorolac 15 MG/ML VIAL IVP (19:35)
--- NOTE | 2023-12-03 20:17 | DI.RAD_ITS ---
Exam(s) XR ABDOMEN FLAT UPRIGHT EXAM: 2D digital imaging was performed. CLINICAL HISTORY: abdominal pain. COMPARISON: CT CT CHEST/ABD/PEL W from 11/29/2023 TECHNIQUE: Supine and uprightSupine and Lateral views of the abdomen was performed. Images were o btained. FINDINGS: LUNG BASES: Clear. BOWEL GAS PATTERN: Non-specific mildly dilated loops of small and large bowel are seen suggesting an ileus. No findings to suggest an obstruction. FREE AIR: None. CALCIFICATIONS: The patient is now status post cholecystectomy. There are surgical clips in the righ t upper quadrant of the abdomen. There is a drainage catheter in place. Skin parish are present in the right upper quadrant. OSSEOUS STRUCTURES: Normal for age. OTHER FINDINGS: None. IMPRESSION: Interval performance of a cholecystectomy with surgical clips now seen in the right upper quadrant of the abdomen. There is a drainage catheter in place. DATA REPOSITORY: RADIATION DOSE DELIVERED:
[2023-12-03] MEDS: traZODone 50 MG TAB PO (20:21)
[2023-12-03] MEDS: Senna TAB 1 TAB PO (20:21)
[2023-12-03] MEDS: Polyethylene Glycol 3350 17 GM PACKET PO (20:24)
[2023-12-03] MEDS: Psyllium PKT 1 EACH PO (20:24)
[2023-12-03] MEDS: Insulin Glargine 300 UNITS/3 ML PEN 28 UNITS SC (21:04)
[2023-12-03] MEDS: Mineral Oil-Enema 133 ML BTL PR (21:12)
--- NOTE | 2023-12-03 21:31 | DI.VRAD_ITS ---
PROCEDURE INFORMATION: Exam: XR Abdomen Exam date and time: 12/03/2023 8:03 PM Age: 73 years old Clinical indication: Other: Abdominal pain; Prior surgery; Surgery date: 3-7 days post-operative; Surgery type: Cholecystectomy TECHNIQUE: Imaging protocol: Radiologic exam of the abdomen. Views: 2 Views. Upright and supine views. COMPARISON: CT CHEST/ABD/PEL W 11/29/2023 12:06 AM FINDINGS: Lungs: There is some increased markings at the left lung base, presumed atelectasis. Gastrointestinal tract: See Organs finding. Intraperitoneal space: See Organs finding. Organs: Status post cholecystectomy. Surgical parish are in place. A right upper quadrant drain is noted. There are few scattered air-fluid levels on the upright exam. No concerning bowel distension noted. Bones/joints: Unremarkable for age. IMPRESSION: Postsurgical changes. Possible ileus. Dictated and Authenticated by: Vale Garza MD. Ordering:[facility] Claudia Oconnell MD
[2023-12-04] MEDS: Heparin 5,000 UNITS/ML VIAL 5000 UNITS SC ×2 (01:11→12:08)
[2023-12-04] MEDS: Acetaminophen 500 MG TAB 1000 MG PO ×4 (01:11→19:45)
[2023-12-04] MEDS: Normal Saline Flush 10 ML SYR IVP ×4 (01:12→20:05)
[2023-12-04 02:39] VITALS: BP 99/62; PULSE 67; RESP 16; TEMP 36; O2SAT 93
[2023-12-04] MEDS: VANCOMYCIN/WATER (PEG) 1 GM/200 ML BAG IV ×2 (06:05→18:29)
[2023-12-04] MEDS: Furosemide 40 MG/4 ML VIAL IVP (06:06)
[2023-12-04] MEDS: Levothyroxine 150 MCG TAB PO (06:06)
[2023-12-04 06:43] LABS: Abs Immature Grans 0.09 10^3/uL (0.0-0.06); Absolute Basophil Count 0.03 10^3/uL (0.0-0.2); Absolute Eosinophil Count 0.46 10^3/uL (0.0-0.7); Absolute Lymphocyte Count 2.33 10^3/uL (1.2-3.4); Absolute Monocyte Count 0.93 10^3/uL (0.1-0.8); Absolute Neutrophil Count 6.07 10^3/uL (1.2-6.7); Basophils % 0.3 %; Eosinophils % 4.6 %; HCT 26.7 % (36.0-46.0); HGB 8.5 g/dL (11.2-15.7); Immature Grans % 0.9 %; Lymphocytes % 23.5 %; MCH 25.4 pg (27.0-33.0); MCHC 31.8 % (32.0-36.0); MCV 80 fL (80-95); MPV 8.7 fL (8.0-11.0); Monocytes % 9.4 %; Neutrophils % 61.3 %; Platelet Count 351 10^3/uL (130-400); RBC 3.34 10^6/uL (3.93-5.22); RDW 15.8 % (11.7-14.6); RDW-SD 45.2 fL; WBC 9.91 10^3/uL (4.4-10.8)
[2023-12-04 07:03] LABS: ALT 17 U/L (14-59); AST 12 U/L (15-37); Albumin 2.1 g/dL (3.4-5.0); Alkaline Phosphatase 89 U/L (46-116); BUN 24 mg/dL (7-18); Bilirubin, Total 0.4 mg/dL (0.2-1.0); CREATININE 0.9 mg/dL (0.55-1.02); Chloride 95 mmol/L (98-107); Estimated GFR 67.08 (mL/min/1.73m2); Glucose 138 mg/dL (74-106); Magnesium 1.6 mg/dL (1.8-2.4); PHOSPHORUS 3.8 mg/dL (2.6-4.7); Potassium 4.1 mmol/L (3.5-5.1); Sodium 132 mmol/L (136-145); Total Protein 7.2 g/dL (6.4-8.2)
[2023-12-04 07:08] LABS: Calcium 9.1 mg/dL (8.5-10.1)
[2023-12-04 07:25] LABS: Procalcitonin < 0.1 ng/mL
[2023-12-04 08:36] VITALS: BP 113/70; PULSE 78; RESP 16; TEMP 36.6; O2SAT 92
[2023-12-04] MEDS: Spironolactone 25 MG TAB PO (08:48)
[2023-12-04] MEDS: Docusate Sodium 100 MG CAP PO ×2 (08:48→19:45)
[2023-12-04] MEDS: Atorvastatin 40 MG TAB PO (08:49)
[2023-12-04] MEDS: Pantoprazole 40 MG TABCR PO (08:49)
[2023-12-04] MEDS: Ferrous Sulfate 325 MG TAB PO (08:49)
[2023-12-04] MEDS: Senna TAB 1 TAB PO (08:49)
[2023-12-04] MEDS: Magnesium Oxide 400 MG TAB PO ×2 (08:49→19:45)
[2023-12-04] MEDS: Multivitamin TAB 1 TAB PO (08:49)
[2023-12-04] MEDS: metFORMIN 500 MG TAB PO ×2 (08:49→18:25)
[2023-12-04] MEDS: Insulin Aspart 300 UNITS/3 ML PEN SC ×3 (08:50→16:26)
[2023-12-04] MEDS: Insulin Glargine 300 UNITS/3 ML PEN 13 UNITS SC (08:50)
[2023-12-04] MEDS: Polyethylene Glycol 3350 17 GM PACKET PO (08:51)
[2023-12-04] MEDS: Protein Nutritional Supplement 16 GM 1 OUNCE PACKET PO ×3 (08:51→19:46)
--- NOTE | 2023-12-04 09:18 | W.PM.PROGNOT ---
Date of Service Date of service: 12/04/23 Time of Service: 09:18 Assessment and Plan Assessment and plan (1) Cholecystitis: Status: Acute Assessment and plan: 73-year-old woman postop day 5 from open cholecystectomy. She is doing great from a surgical perspective. Unclear how much ambulation and physical therapy she can do, but the more the better. From a surgical perspective, she is having good bowel function, eating well and her pain is under control without narcotics. She can be discharged back to the nursing facility tomorrow. Follow-up for staple removal in the next 10 to 14 days. From a surgical perspective, antibiotics are no longer needed. Subjective Subjective Interval history since last seen: No overnight events or clinical changes of significance. She has had a couple of bowel movements. She subjectively says that having those has improved her abdominal discomfort which is quite a bit better today. I removed her narcotics yesterday and we gave her aggressive stool softeners. Exam Narrative Exam Narrative: General: Nontoxic, comfortable and interactive Neuro: Alert and oriented x 3 Psych: Good mood and affect, seemingly good insight and understanding into her condition. Chest: Nonlabored breathing. Heart: Regular Abdomen: Soft, nondistended and nontender. Her incision looks perfect. The parish are intact. There is no erythema. Her drain has scant serous output. I removed the drain at the bedside. Objective Last Vital Signs Temp 97.9 F 12/04/23 08:36 Pulse 78 12/04/23 08:36 Resp 16 12/04/23 08:36 BP 113/70 12/04/23 08:36 Pulse Ox 92 12/04/23 08:36 Laboratory Results - last 24 hr 12/04/23 12/04/23 12/04/23 06:15 06:15 06:15 WBC 9.91 RBC 3.34 L Hgb 8.5 L Hct 26.7 L MCV 80 MCH 25.4 L MCHC 31.8 L RDW 15.8 H Plt Count 351 MPV 8.7 Immature Gran % 0.9 Neutrophils % 61.3 Lymphocytes % 23.5 Monocytes % 9.4 Eosinophils % 4.6 Basophils % 0.3 Nucleated RBC % 0.0 Absolute Neutrophils 6.07 Absolute Lymphocytes 2.33 Absolute Monocytes 0.93 H Absolute Eosinophils 0.46 Absolute Basophils 0.03 Sodium 132 L Potassium 4.1 Chloride 95 L Carbon Dioxide 31.0 Anion Gap 6.0 BUN 24 H Creatinine 0.9 Est GFR (CKD-EPI 2020) 67.08 Glucose 138 H Calcium 9.1 Phosphorus 3.8 Cancelled Magnesium 1.6 L Cancelled Total Bilirubin 0.4 AST 12 L ALT 17 Alkaline Phosphatase 89 C-Reactive Protein 4.50 H Total Protein Albumin Procalcitonin 12/04/23 06:15 WBC RBC Hgb Hct MCV MCH MCHC RDW Plt Count MPV Immature Gran % Neutrophils % Lymphocytes % Monocytes % Eosinophils % Basophils % Nucleated RBC % Absolute Neutrophils Absolute Lymphocytes Absolute Monocytes Absolute Eosinophils Absolute Basophils Sodium Potassium Chloride Carbon Dioxide Anion Gap BUN Creatinine Est GFR (CKD-EPI 2020) Glucose Calcium Phosphorus Magnesium Total Bilirubin AST ALT Alkaline Phosphatase C-Reactive Protein Cancelled Total Protein 7.2 Albumin 2.1 L Procalcitonin < 0.1 Time Spent with Patient Time Spent with Patient: <25 minutes Time was spent: preparing to see the patient(eg.review tests), obtaining and/or reviewing separately otained hiistory, indepentently interpreting results, counseling the patient and care coordination
--- NOTE | 2023-12-04 12:43 | PTTR_ITS ---
Date of service: 12/04/23 Time of Service: 10:20 PT Notes Visit Reasons: Pneumonia, Cholecystitis Inpatient Physical Therapy Treatment Note [facility] Date: 12/04/2023 PRECAUTIONS:Standard, Contact precautions in place for ESBL in urine. Activity as tolerated. SUBJECTIVE: Stomach is feeling much better today. OBJECTIVE: ? PAIN: No reports of pain, even after walking. Arrived to room as patient had just gotten out of bed with nursing staff. Agreeable to walking after a lot of encouragement. Therapeutic Activities ([id number]): Focus on functional mobility with skilled care. Able to go sit to stand from recliner with CGA of two, with verbal cueing for push off from chair. Ambulated 20ft with FWW with CGA of one and assist of nursing Yoana with IV pole s and chair follow. Utilized a slow controlled gait. Stand to sit requiring CGA and verbal cueing for safety with reaching back for chair before sitting. ? Exercises: While in seated position she performed seated heel and toe raises, seated march, seated hip abduction/ adduction and LAQs for 10 reps each. ? Provided skilled instruction in proper exercise performance Provided skilled manual cues to facilitate proper muscle recruitment and/or form ASSESSMENT:?Doing much better today. Does appear nervous about falling with transfers and ambulation. PLAN: Continue to encourage movement and OOB activities, as able to tolerate. TREATMENT CODE/TIME: [id number], 10:20 to 11:45 (25') ?
--- NOTE | 2023-12-04 13:27 | PGE_ITS ---
Date of Service Date of service: 12/04/23 Time of Service: 13:27 Assessment and Plan Assessment and plan (1) Cholecystitis: Status: Acute Assessment and plan: POD # 5 s/p open cholecystectomy, continue meropenem and vancomycin (MRSA positive screen), WBC now normal at 9900 from peak of 31,000. This is her third day of normal WBC, procalcitonin <0.1 (however only was 0.7 during her last admission, and 0.1 on 11/27. CRP now at 4.5 down from high of 6.95. remains on meropenem and vancomycin (d# 6 for both), I would continue her antibiotics through the end of her hospital stay as her CRP is still elevated but given her normal WBC count, she probably is near the end of her treatment now source control has been achieved w/ her cholecystectomy. I anticipate she will be ready for discharge to the long-term tomorrow. Professional time spent interviewing and examining patient, discussion of goals of care with hospital team (care management, nursing and consulting prof essionals) was 35 minutes. (2) CHF (congestive heart failure): Assessment and plan: She has a history of HFpEF, initially she was not felt to be volume overloaded however over past 2 to 3 days she was volume overloaded but now has improved w/ iv diuretics. Wt is down to 98.9 kg (from a high of 103 kg, her baseline wt appears to be 99 kg). Her net I/O has been negative 1380 yesterday, 2380 the day before. At this point she can go back on oral lasix and spironolactone. repeat labs prior to her dc to the SNF. Qualifiers: Heart failure type: diastolic Heart failure chronicity: chronic Quali fied Code(s): I50.32 - Chronic diastolic (congestive) heart failure (3) Constipation: Status: Acute Assessment and plan: KUB suggested possible ileus but no obstruction, however patient had large BM yesterday. Abdomen is nontender w/ normal bowel sounds today and she is eating well. continue w/ metamucil and miralax to prevent constipation. Qualifiers: Constipation type: slow transit constipation Qualified Code(s): K59.01 - Slow transit constipation (4) Anemia in chronic illness: Status: Acute Assessment and plan: Hb stable at 9.0, no evidence for bleeding. Will trend for now. Prior workup in October did not support iron deficiency (normal ferritin, normal iron, low TIBC) and normal B12 and folate, so likely this is anemia of chronic disease w/ some superimposed dilution. continue PPI, she is on oral iron supplements per surgical service. (5) Poorly controlled type 2 diabetes mellitus with peripheral neuropathy: Status: Acute Assessment and plan: continue basal/bolus insulin coverage. since adjustment of her lantus, am glucose down to 174, lunchtime today is 226, highest yesterday was 245, meal time coverage was added yesterday. (6) Hypothyroid: Assessment and plan: outpatient levothyroxine when taking po again. Qualifiers: Hypothyroidism type: acquired Qualified Code(s): E03.9 - Hypothyroidism, unspecified (7) Unstageable pressure ulcer of right heel: Status: Acute Assessment and plan: this has looked much better than previous admission and does not look infected. Continue wound care/offloading Subjective Subjective Interval history since last seen: Nilam feels markedly better. No nausea or abdominal pains. She finally had a good BM yesterday. She is eating better today. Ate almost all of her lunch (except for her green beans, she ate all of her mashed potatoes and her turkey). Exam Narrative Exam Narrative: Nilam is sitting up in her chair, watching TV, just finished lunch Lungs: clear Heart: RRR Abdomen: nondistended, normal bowel sounds, still has MARCO ANTONIO drain in place w/ minimal serosanguinous drainage (only 20 mL overnight) Legs: no pitting edema Objective Last Vital Signs Temp 36.6 C 12/04/23 08:36 Pulse 78 12/04/23 08:36 Resp 16 12/04/23 08:36 BP 113/70 12/04/23 08:36 Pulse Ox 92 12/04/23 08:36 Laboratory Results - last 24 hr 12/04/23 12/04/23 12/04/23 06:15 06:15 06:15 WBC 9.91 RBC 3.34 L Hgb 8.5 L Hct 26.7 L MCV 80 MCH 25.4 L MCHC 31.8 L RDW 15.8 H Plt Count 351 MPV 8.7 Immature Gran % 0.9 Neutrophils % 61.3 Lymphocytes % 23.5 Monocytes % 9.4 Eosinophils % 4.6 Basophils % 0.3 Nucleated RBC % 0.0 Absolute Neutrophils 6.07 Absolute Lymphocytes 2.33 Absolute Monocytes 0.93 H Absolute Eosinophils 0.46 Absolute Basophils 0.03 Sodium 132 L Potassium 4.1 Chloride 95 L Carbon Dioxide 31.0 Anion Gap 6.0 BUN 24 H Creatinine 0.9 Est GFR (CKD-EPI 2020) 67.08 Glucose 138 H Calcium 9.1 Phosphorus 3.8 Cancelled Magnesium 1.6 L Cancelled Total Bilirubin 0.4 AST 12 L ALT 17 Alkaline Phosphatase 89 C-Reactive Protein 4.50 H Total Protein Albumin Procalcitonin 12/04/23 06:15 WBC RBC Hgb Hct MCV MCH MCHC RDW Plt Count MPV Immature Gran % Neutrophils % Lymphocytes % Monocytes % Eosinophils % Basophils % Nucleated RBC % Absolute Neutrophils Absolute Lymphocytes Absolute Monocytes Absolute Eosinophils Absolute Basophils Sodium Potassium Chloride Carbon Dioxide Anion Gap BUN Creatinine Est GFR (CKD-EPI 2020) Glucose Calcium Phosphorus Magnesium Total Bilirubin AST ALT Alkaline Phosphatase C-Reactive Protein Cancelled Total Protein 7.2 Albumin 2.1 L Procalcitonin < 0.1 Time Spent with Patient Time Spent with Patient: 35-49 minutes Time was spent: preparing to see the patient(eg.review tests), ordering medications,tests, procedures, referring, communicating with other health day care home provider, indepentently interpreting results, counseling the patient and care coordination
[2023-12-04 15:43] VITALS: BP 99/57; PULSE 66; RESP 15; TEMP 36.5; O2SAT 92
[2023-12-04] MEDS: Furosemide 40 MG TAB PO (16:26)
[2023-12-04] MEDS: Potassium Chloride 20 MEQ TABCR PO ×2 (16:27→19:45)
[2023-12-04 18:01] VITALS: BP 95/53; PULSE 68; RESP 15; TEMP 36.6; O2SAT 95
[2023-12-04] MEDS: traZODone 50 MG TAB PO (19:45)
[2023-12-04] MEDS: Insulin Glargine 300 UNITS/3 ML PEN 30 UNITS SC (19:47)
[2023-12-04 23:36] VITALS: BP 110/62; PULSE 77; RESP 21; TEMP 36.5; O2SAT 92
[2023-12-05] MEDS: Heparin 5,000 UNITS/ML VIAL 5000 UNITS SC (01:10)
[2023-12-05] MEDS: Acetaminophen 500 MG TAB 1000 MG PO ×2 (01:11→07:27)
[2023-12-05] MEDS: VANCOMYCIN/WATER (PEG) 1 GM/200 ML BAG IV (06:10)
[2023-12-05] MEDS: Levothyroxine 150 MCG TAB PO (06:10)
[2023-12-05 06:11] VITALS: BP 112/60; PULSE 71; RESP 14; TEMP 36.2; O2SAT 95
[2023-12-05] MEDS: Normal Saline Flush 10 ML SYR IVP ×2 (06:11→07:27)
[2023-12-05 06:37] LABS: Abs Immature Grans 0.12 10^3/uL (0.0-0.06); Absolute Basophil Count 0.03 10^3/uL (0.0-0.2); Absolute Eosinophil Count 0.59 10^3/uL (0.0-0.7); Absolute Lymphocyte Count 2.53 10^3/uL (1.2-3.4); Absolute Monocyte Count 1.19 10^3/uL (0.1-0.8); Basophils % 0.2 %; Eosinophils % 4.7 %; HCT 27.1 % (36.0-46.0); HGB 8.9 g/dL (11.2-15.7); Lymphocytes % 20.2 %; MCH 25.9 pg (27.0-33.0); MCHC 32.8 % (32.0-36.0); MCV 79 fL (80-95); MPV 8.5 fL (8.0-11.0); Monocytes % 9.5 %; Neutrophils % 64.4 %; Platelet Count 386 10^3/uL (130-400); RBC 3.44 10^6/uL (3.93-5.22); RDW 16.1 % (11.7-14.6); RDW-SD 45.8 fL
[2023-12-05 06:40] LABS: Absolute Neutrophil Count 8.05 10^3/uL (1.2-6.7)
[2023-12-05 06:51] LABS: Magnesium 1.7 mg/dL (1.8-2.4)
[2023-12-05 06:58] LABS: ALT 14 U/L (14-59); AST 13 U/L (15-37); Albumin 2.1 g/dL (3.4-5.0); Alkaline Phosphatase 88 U/L (46-116); Anion Gap 6.4 mmol/L (3-11); BUN 26 mg/dL (7-18); Bilirubin, Total 0.4 mg/dL (0.2-1.0); C-Reactive Protein 3.15 mg/dL (<or=0.5); CO2 30.6 mmol/L (21.0-32.0); CREATININE 0.8 mg/dL (0.55-1.02); Calcium 9.1 mg/dL (8.5-10.1); Chloride 95 mmol/L (98-107); Estimated GFR 77.27 (mL/min/1.73m2); Glucose 108 mg/dL (74-106); Sodium 132 mmol/L (136-145); Total Protein 7.4 g/dL (6.4-8.2)
[2023-12-05 07:22] VITALS: BP 103/56; PULSE 72; RESP 20; TEMP 36.2; O2SAT 98
[2023-12-05] MEDS: Protein Nutritional Supplement 16 GM 1 OUNCE PACKET PO (07:27)
[2023-12-05] MEDS: Furosemide 40 MG TAB PO (07:27)
[2023-12-05] MEDS: Pantoprazole 40 MG TABCR PO (07:28)
[2023-12-05] MEDS: Magnesium Oxide 400 MG TAB PO (07:28)
[2023-12-05] MEDS: Multivitamin TAB 1 TAB PO (07:28)
[2023-12-05] MEDS: Spironolactone 25 MG TAB PO (07:28)
[2023-12-05] MEDS: Docusate Sodium 100 MG CAP PO (07:28)
[2023-12-05] MEDS: Ferrous Sulfate 325 MG TAB PO (07:28)
[2023-12-05] MEDS: Potassium Chloride 20 MEQ TABCR PO (07:28)
[2023-12-05] MEDS: metFORMIN 500 MG TAB PO (07:28)
[2023-12-05] MEDS: Atorvastatin 40 MG TAB PO (07:29)
[2023-12-05] MEDS: Insulin Glargine 300 UNITS/3 ML PEN 15 UNITS SC (07:30)
--- NOTE | 2023-12-05 08:55 | DSE_ITS ---
Date of service: 12/05/23 Time of Service: 08:55 DS: Diagnosis Discharge Diagnosis (1) Cholecystitis: Status: Acute Asessment and Plan: Ready for discharge back to her nursing facility. Remove parish in the office in 10 to 14 days. Can have a regular diet. Resume all of her regular home medications No need for further antibiotics Activity as tolerated?no restrictions She can shower and bathe over the incision. Remove the dressing that is still on her abdomen when she gets to the halfway. Discharge Plan Disposition Patient Disposition: [facility] Facility(SNF) Condition: Good Discharge Details Reason For Visit: Pneumonia, Cholecystitis Admit Date/Time: 11/29/23 02:54 Admit Provider: Kirit Tejeda Attending Provider: Kirit Tejeda Primary Care Provider: Angelika Berumen [place] [facility] Hospital Course: 73-year-old woman presented with worsening abdominal pain and leukocytosis and her cholecystostomy tube was obstructed. She was taken to the operating room and an open cholecystectomy was performed. A drain was left in place. She was then monitored postoperatively and had an expected ileus for a few days which then resolved. On postoperative day 5 she was tolerating a regular diet, having good bowel fun ction, having no significant abdominal pain, was not requiring any significant pain medications, her drain had been removed and she was set up for discharge back to her nursing facility. Home Meds and New Rx's Prescriptions: No Action cholecalciferol (vitamin D3) 1,250 mcg (50,000 unit) capsule 1,250 mcg PO QWEEK atorvastatin 40 mg tablet 40 mg PO DAILY trazodone 50 mg tablet 50 mg PO QHS acetaminophen 500 mg Tablet 1,000 mg PO TID MDD 3000 mg Qty: 60 0RF docusate sodium [Colace] 100 mg Capsule 100 mg PO DAILY Qty: 30 0RF ferrous sulfate 325 mg (65 mg iron) Tablet 325 mg PO DAILY Qty: 30 0RF pantoprazole 40 mg Tablet,Delayed Release (Dr/Ec) 40 mg PO DAILY@0730 Qty: 10 0RF metformin 500 mg tablet 500 mg PO BIDWMEAL Qty: 60 0RF (DME) lancets [FreeStyle Lancets] 28 gauge misc See Rx Instructions .Route Qty: 100 0RF Rx Instructions: As directed (DME) blood-glucose meter [FreeStyle Lite Meter] Kit See Rx Instructions .Route Qty: 1 0RF Rx Instructions: As directed (DME) FreeStyle Lite Strips Strip See Rx Instructions .Route Qty: 100 0RF Rx Instructions: As directed levothyroxine 150 mcg tablet 150 mcg PO DAILY insulin glargine [Lantus Solostar U-100 Insulin] 100 unit/mL (3 mL) Insulin Pen 15 unit subcut QAM Qty: 15 0RF magnesium oxide 400 mg (241.3 mg magnesium) Tablet 400 mg PO DAILY Qty: 30 0RF potassium chloride [Klor-Con M20] 20 mEq Tablet,Er Particles/Crystals 20 meq PO DAILY Qty: 30 0RF insulin glargine [Lantus Solostar U-100 Insulin] 100 unit/mL (3 mL) Insulin Pen 25 unit subcut HS Qty: 15 0RF furosemide 40 mg Tablet 40 mg PO BID@0830,1600 Qty: 60 0RF spironolactone 25 mg Tablet 25 mg PO DAILY Qty: 90 0RF insulin aspart U-100 100 unit/mL (3 mL) insulin pen 1 sliding scale dose SUBCUT TID Rx Instructions: see sliding scale polyethylene glycol 3350 [ClearLax] 17 gram/dose powder 17 g PO DAILY Discharge Instructions Additional Instructions: See care plan above Activity:: Activity as Tolerated Equipment/Supplies:: No Equipment Needed Diet:: As Tolerated DS: Summary Time Spent with Patient providing and/or coordinating discharge services: Less than 30 minutes Status at Discharge Functional status at discharge: bed bound (Baseline) Overall status at discharge: patient is back to baseline Mental Status: mental status grossly normal Speech and Movement: speech and movement normal Mood: congruent mood Affect: normal affect Quality:SDOH Health Related Social Needs: No Data to Display Exam Narrative Exam Narrative: General: Nontoxic, comfortable and interactive Neuro: Alert and oriented x 3 Psych: Upbeat mood and affect, good insight and understanding Abdomen: Soft, nondistended and nontender. Her incision looks perfect. [place] intact. No erythema. Psych Mental Status: mental status grossly normal Speech and Movement: speech and movement normal Mood: congruent mood Affect: normal affect DS: Data Vitals/I&O Vitals and I&O: Vital Signs Temperature 97.2 F L 12/05/23 07:22 Temperature Source Temporal Artery Scan 12/05/23 06:11 Pulse 72 12/05/23 07:22 Pulse Rhythm Regular 12/05/23 07:38 Pulse 79 11/30/23 14:00 Respiratory Rate 20 12/05/23 07:22 Respiratory Effort Normal, Non-Labored 12/05/23 07:38 Respiratory Depth Normal 12/05/23 07:38 Respiratory Pattern Normal 12/05/23 07:38 Blood Pressure 103/56 L 12/05/23 07:22 Blood Pressure Mean 89 11/30/23 16:30 Blood Pressure Position Supine 11/30/23 16:30 Pulse Oximetry 98 12/05/23 07:22 Oxygen Delivery Method Room Air 12/05/23 07:22 Oxygen Flow Rate 0 12/05/23 07:22 Pain Level 0 12/05/23 07:22 Comment RN notified of vitals; will recheck O2 12/03/23 12:01 Intake & Output 12/04/23 12/04/23 12/05/23 11:59 23:59 11:59 Intake Total 870 / 1170 300 / 1170 300 / 300 Output Total 900 / 2100 1200 / 2100 Balance -30 / -930 -900 / -930 300 / 300 Weight 218 lb 0.595 oz Intake: IV 400 / 700 300 / 700 300 / 300 Oral 450 / 450 Injectate 20 / 20 Left Abdomen 20 / 20 Output: Urine 900 / 2100 1200 / 2100 Other: Urine Color Yellow Brown Urine Appearance Cloudy Cloudy Sediment Urine Odor Normal Normal Comment purewick Large incontinence to brief Stool Size Large Large Large Stool Characteristics Soft Soft Soft Liquid Brown Brown Voiding Methods Incontinent Incontinent Data Completed and Pending Labs on day of discharge: Labs from last 24 hours 12/05/23 06:20 WBC 12.50 H RBC 3.44 L Hgb 8.9 L Hct 27.1 L MCV 79 L MCH 25.9 L MCHC 32.8 RDW 16.1 H Plt Count 386 MPV 8.5 Immature Gran % 1.0 Neutrophils % 64.4 Lymphocytes % 20.2 Monocytes % 9.5 Eosinophils % 4.7 Basophils % 0.2 Nucleated RBC % 0.0 Absolute Neutrophils 8.05 H Absolute Lymphocytes 2.53 Absolute Monocytes 1.19 H Absolute Eosinophils 0.59 Absolute Basophils 0.03 Sodium 132 L Potassium 4.0 Chloride 95 L Carbon Dioxide 30.6 Anion Gap 6.4 BUN 26 H Creatinine 0.8 Est GFR (CKD-EPI 2020) 77.27 Glucose 108 H Calcium 9.1 Magnesium 1.7 L Total Bilirubin 0.4 AST 13 L ALT 14 Alkaline Phosphatase 88 C-Reactive Protein 3.15 H Total Protein 7.4 Albumin 2.1 L PFSH All Active Problems (Updated 12/05/23 @ 08:58 by Abe Schroeder MD) Constipation (Acute) Cholecystitis (Acute) Anemia in chronic illness (Acute) Transaminitis (Acute) Obesity (Chronic) Unstageable pressure ulcer of right heel (Acute) Poorly controlled type 2 diabetes mellitus with peripheral neuropathy (Acute) Low serum iron (Acute) Lumbar back pain with radiculopathy affecting right lower extremity (Acute) Ambulatory dysfunction (Acute) Weakness (Acute) Medical History Hypothyroid Gram-negative bacteremia Pleural effusion, left Hyperglycemia due to type 2 diabetes mellitus Urinary tract infection Palliative care patient Physician orders for life-sustaining treatment (POLST) form indicates patient wish for [id number] status ACP (advance care planning) Stroke Diabetes CHF (congestive heart failure) 2020, pt. denies any deficits now Surgical History History of ERCP S/P tonsillectomy Social History Smoking/Tobacco Use Status: Never Smoking risk assessment performed?: Yes Alcohol Intake: never Drug use: Never Substance use type: does not use Housing: halfway What is your relationship status?: Panel score (0-1 are the most socially isolated patients): 0 Do you feel safe at home: Yes Do you feel safe in your relationship?: Yes Time Spent with Patient Time Spent with Patient: <45 minutes Time was spent: preparing to see the patient(eg.review tests), obtaining and/or reviewing separately otained hiistory, indepentently interpreting results, counseling the patient and care coordination
--- NOTE | 2023-12-05 09:08 | CMDISCH_ITS ---
Date of service: 12/05/23 Time of Service: 09:08 LACE Index Scoring Tool Questions: Length of Stay (in days): 4 - 6 Was the patient admitted via the E.D.?: Yes Comorbidities: Diabetes w/o Complication E.D. Visits: 3 Answers: Total Score: 11 Risk of Readmission: High Risk Care Management Discharge Plan Reason for Hospitalization: Pneumonia, cholecystitis Discharge Plan: Nilam will return to the [facility] today via [facility] w/c [place] c oordinated by CM. She will follow up with facility providers and her discharge plan of care. She is happy to return to the [facility]. Patient/Family Education Needs: Review discharge instructions and limitations, discussion of self care needs including ask me three. Services Needed at Discharge: Group Home Facility ([facility], [facility]) and Transportation ([facility] w/[facility] [place]) [facility] Health Related Social Needs: No Data to Display
[2023-12-05] MEDS: Insulin Aspart 300 UNITS/3 ML PEN SC (11:59)
== END 2023-12-05 12:08 | disposition skilled nursing facility (03) | DRG 907 ==
LOC: ER 11-29 03:38 → ICU 11-29 03:40 → MS 11-30 17:29
PROVIDERS: Family Medicine; Internal Medicine; Admitting Provider Surgery; Emergency Provider Student in an Organized Health Care Education/Training Program; PCP Nurse Practitioner Gerontology; Visit Provider Surgery
PROC: 0FT40ZZ Resection of Gallbladder, Open Approach (ICD-10-PCS; CPT 47600; principal; 2023-11-29 12:15)
DX: T85.698A Other mechanical complication of other specified internal prosthetic devices, implants and grafts, initial encounter (principal); J18.9 Pneumonia, unspecified organism; K80.12 Calculus of gallbladder with acute and chronic cholecystitis without obstruction; I50.32 Chronic diastolic (congestive) heart failure; N30.00 Acute cystitis without hematuria; Z16.12 Extended spectrum beta lactamase (ESBL) resistance; E11.42 Type 2 diabetes mellitus with diabetic polyneuropathy; Z79.4 Long term (current) use of insulin; Z79.84 Long term (current) use of oral hypoglycemic drugs; E61.1 Iron deficiency; R53.1 Weakness; E11.65 Type 2 diabetes mellitus with hyperglycemia; M54.16 Radiculopathy, lumbar region; E66.9 Obesity, unspecified; R74.01 Elevation of levels of liver transaminase levels; I50.9 Heart failure, unspecified; Z86.73 Personal history of transient ischemic attack (TIA), and cerebral infarction without residual deficits; Z68.38 Body mass index [BMI] 38.0-38.9, adult; L89.610 Pressure ulcer of right heel, unstageable; K59.01 Slow transit constipation; B95.62 Methicillin resistant Staphylococcus aureus infection as the cause of diseases classified elsewhere; B96.20 Unspecified Escherichia coli [E. coli] as the cause of diseases classified elsewhere; D63.8 Anemia in other chronic diseases classified elsewhere; R26.2 Difficulty in walking, not elsewhere classified; R09.02 Hypoxemia; Y81.1 Therapeutic (nonsurgical) and rehabilitative general- and plastic-surgery devices associated with adverse incidents; K82.8 Other specified diseases of gallbladder
CPT/HCPCS: 47600; 00123; 36415; 74177; 80048; 80053; 83690; 84145; 85027; 86850; 86900; 86901; 87040; 87641; 96361; 96365; 97110; 97162; 97530; 99222; 99285; 71260; 74019; 80202; 81003; 81015; 82248; 83605; 83735; 84100; 85025; 85049; 85610; 85730; 86140; 88304; 99223; 99232; J0131; J0295; J0665; J1100; J1170; J1205; J1644; J1815; J1885; J1940; J2185; J2212; J2270; J2405; J2470; J2704; J3370; J3372; J3475; J3490

== ENCOUNTER → 2023-12-12 11:28 | Outpatient (BNVA) | payer MEDICARE, MEDICAID, SELFPAY | PROVIDERS: PCP Nurse Practitioner Gerontology; Referring Provider Nurse Practitioner Gerontology; Visit Provider Surgery | DX: Z48.815 Encounter for surgical aftercare following surgery on the digestive system (principal) ==

== ENCOUNTER 2023-12-12 18:34 | Outpatient (REF) | payer MEDICARE, MEDICAID, SELFPAY ==
[2023-12-12 18:35] LABS: Absolute Basophil Count 0.03 10^3/uL (0.0-0.2); Absolute Eosinophil Count 0.44 10^3/uL (0.0-0.7); Absolute Lymphocyte Count 2.32 10^3/uL (1.2-3.4); Basophils % 0.3 %; Eosinophils % 3.9 %; HCT 30.7 % (36.0-46.0); HGB 9.4 g/dL (11.2-15.7); Immature Grans % 0.9 %; Lymphocytes % 20.5 %; MCH 25.8 pg (27.0-33.0); MCHC 30.6 % (32.0-36.0); MCV 84 fL (80-95); MPV 9.1 fL (8.0-11.0); Monocytes % 5.6 %; Neutrophils % 68.8 %; Platelet Count 426 10^3/uL (130-400); RBC 3.64 10^6/uL (3.93-5.22); RDW 17.1 % (11.7-14.6); RDW-SD 52.2 fL; WBC 11.34 10^3/uL (4.4-10.8)
[2023-12-12 18:36] LABS: Absolute Monocyte Count 0.64 10^3/uL (0.1-0.8)
[2023-12-12 18:51] LABS: Iron 48 ug/dL (50-170); Total Iron Binding Capacity 221 ug/dL (250-450); Transferrin Sat 22 % (15-50)
[2023-12-12 19:14] LABS: ALT 29 U/L (14-59); AST 18 U/L (15-37); Albumin 2.9 g/dL (3.4-5.0); Alkaline Phosphatase 81 U/L (46-116); Anion Gap 6.8 mmol/L (3-11); BUN 14 mg/dL (7-18); Bilirubin, Total 0.29 mg/dL (0.2-1.0); CO2 29.2 mmol/L (21.0-32.0); CREATININE 0.8 mg/dL (0.55-1.02); Calcium 8.8 mg/dL (8.5-10.1); Chloride 100 mmol/L (98-107); Estimated GFR 77.27 (mL/min/1.73m2); Ferritin 140 ng/mL (8-252); Glucose 202 mg/dL (74-106); Potassium 4.9 mmol/L (3.5-5.1); Sodium 136 mmol/L (136-145); TSH (W/Ref FT4) 2.79 uIU/mL (0.36-3.74); Total Protein 7.3 g/dL (6.4-8.2); Vitamin D 25 Total 21.1 ng/mL (30-100)
[2023-12-12 20:09] LABS: Bilirubin Negative (Negative); Blood Negative (Negative); Clarity Clear (Clear); Glucose Negative (Negative); Ketones Negative (Negative); Leukocyte Esterase Negative (Negative); Nitrite Negative (Negative); Urobilinogen 0.2 mg/dL (Up to 0.2)
== END 2023-12-12 18:35 | disposition home or self-care (01) ==
LOC: LBN 18:34
PROVIDERS: PCP Nurse Practitioner Gerontology; Visit Provider Nurse Practitioner Gerontology
DX: R53.82 Chronic fatigue, unspecified (principal); E55.9 Vitamin D deficiency, unspecified; G89.4 Chronic pain syndrome; K81.0 Acute cholecystitis; E87.6 Hypokalemia; E87.1 Hypo-osmolality and hyponatremia; E03.9 Hypothyroidism, unspecified
CPT/HCPCS: 80053; 82306; 81003; 82728; 83540; 83550; 84443; 85025; 87086

== ENCOUNTER 2023-12-14 19:58 | Outpatient (REF) | payer MEDICARE, MEDICAID, SELFPAY ==
[2023-12-14 21:07] LABS: C Diff PCR Negative (Negative)
== END 2023-12-14 19:59 | disposition home or self-care (01) ==
LOC: LBN 19:58
PROVIDERS: PCP Nurse Practitioner Gerontology; Visit Provider Surgery
DX: R19.7 Diarrhea, unspecified (principal)
CPT/HCPCS: 87493

== ENCOUNTER → 2023-12-15 11:15 | Outpatient (BNVA) | payer MEDICARE, MEDICAID, SELFPAY | PROVIDERS: PCP Nurse Practitioner Gerontology; Referring Provider Nurse Practitioner Gerontology; Visit Provider Podiatrist | DX: L89.610 Pressure ulcer of right heel, unstageable (principal); E11.42 Type 2 diabetes mellitus with diabetic polyneuropathy; E11.65 Type 2 diabetes mellitus with hyperglycemia; E11.628 Type 2 diabetes mellitus with other skin complications; L08.9 Local infection of the skin and subcutaneous tissue, unspecified | CPT/HCPCS: 99213 ==

== ENCOUNTER 2023-12-23 12:50 | Emergency (ER) | payer MEDICARE, MEDICAID, SELFPAY ==
[2023-12-23 12:52] VITALS: BP 123/64; PULSE 87; RESP 18; TEMP 36.6
--- NOTE | 2023-12-23 13:18 | ED.GENADUL_ITS ---
Discharge Plan Disposition Patient Disposition: [facility] Facility([facility] Condition: Stable Discharge Details Clinical Impression: Removal of parish, Wound cellulitis after surgery Primary Care Provider: Angelika Berumen ED Provider: Willow Neal [place] Meds and New Rx's Prescriptions: Continued cholecalciferol (vitamin D3) 1,250 mcg (50,000 unit) capsule 1,250 mcg PO QWEEK atorvastatin 40 mg tablet 40 mg PO DAILY trazodone 50 mg tablet 50 mg PO QHS acetaminophen 500 mg Tablet 1,000 mg PO TID MDD 3000 mg Qty: 60 0RF docusate sodium [Colace] 100 mg Capsule 100 mg PO DAILY Qty: 30 0RF ferrous sulfate 325 mg (65 mg iron) Tablet 325 mg PO DAILY Qty: 30 0RF pantoprazole 40 mg Tablet,Delayed Release (Dr/Ec) 40 mg PO DAILY@0730 Qty: 10 0RF metformin 500 mg tablet 500 mg PO BIDWMEAL Qty: 60 0RF (DME) lancets [FreeStyle Lancets] 28 gauge misc See Rx Instructions .Route Qty: 100 0RF Rx Instructions: As directed (DME) blood-glucose meter [FreeStyle Lite Meter] Kit See Rx Instructions .Route Qty: 1 0RF Rx Instructions: As directed (DME) FreeStyle Lite Strips Strip See Rx Instructions .Route Qty: 100 0RF Rx Instructions: As directed levothyroxine 150 mcg tablet 150 mcg PO DAILY insulin glargine [Lantus Solostar U-100 Insulin] 100 unit/mL (3 mL) Insulin Pen 15 unit subcut QAM Qty: 15 0RF magnesium oxide 400 mg (241.3 mg magnesium) Tablet 400 mg PO DAILY Qty: 30 0RF potassium chloride [Klor-Con M20] 20 mEq Tablet,Er Particles/Crystals 20 meq PO DAILY Qty: 30 0RF insulin glargine [Lantus Solostar U-100 Insulin] 100 unit/mL (3 mL) Insulin Pen 25 unit subcut HS Qty: 15 0RF furosemide 40 mg Tablet 40 mg PO BID@0830,1600 Qty: 60 0RF spironolactone 25 mg Tablet 25 mg PO DAILY Qty: 90 0RF insulin aspart U-100 100 unit/mL (3 mL) insulin pen 1 sliding scale dose SUBCUT TID Rx Instructions: see sliding scale polyethylene glycol 3350 [ClearLax] 17 gram/dose powder 17 g PO DAILY metronidazole 0.75 % cream 1 applic TOPICAL BID nystatin [Nyamyc] 100,000 unit/gram powder 1 applic TOPICAL DAILY cephalexin 500 mg tablet 500 mg PO TID doxycycline hyclate 100 mg capsule 100 mg PO BID Discharge Instructions Instructions: How to Prevent Surgical Site Infections, Staple Removal Additional Instructions: Continue taking the antibiotic as previously prescribed. You are placed on a care management list to assist you in getting a sooner appointment with general surgery within the next week if possible. The resident home may apply additional Steri-Strips if needed. Allow the wound to air dry at least 1 to 2 hours a day. Keep clean and dry is much as possible. Be seen sooner for any fever, significant drainage, spreading redness or concerns. Referrals: Yoana Hanks DO [OSTEOPATHIC DOCTOR] - 1 week HPI General Mode of arrival: EMS . Date/Time Provider Initiated Documentation: 12/23/23 13:01 . Limitations to Documentation: altered mental status . Information obtained by: patient, EMS, RN notes reviewed and old records reviewed . HPI Narrative: 73-year-old female presents to the ER via EMS and from the [facility] after having cholecystectomy. There are concern for infection at the incision site due to the parish. Patient denies any fever chills body aches no active drainage no noted from the incision at this time. There is some slight erythema surrounding the parish. There are [address] wound is well-approximated. Patient has a past medical history of insulin dependent diabetes, pleural effusion, hypothyroidism, she does have a POLST status, palliative care patient, CHF CVA, history of ERCP and tonsillectomy. She also has a history of ambulatory dysfunction. Related Data Home Medications Medication Instructions Recorded Confirmed atorvastatin 40 mg tablet 40 mg PO DAILY 09/04/23 12/23/23 trazodone 50 mg tablet 50 mg PO QHS 09/04/23 12/23/23 acetaminophen 500 mg tablet 1,000 mg (2 x 500 mg) PO TID #60 09/06/23 12/23/23 tabs blood sugar diagnostic (FreeStyle #100 ea 09/06/23 12/23/23 Lite Strips) blood-glucose meter (FreeStyle #1 ea 09/06/23 12/23/23 Lite Meter kit) docusate sodium 100 mg capsule 100 mg PO DAILY #30 caps 09/06/23 12/23/23 (Colace) ferrous sulfate 325 mg (65 mg 325 mg PO DAILY #30 tabs 09/06/23 12/23/23 iron) tablet lancets 28 gauge (FreeStyle #100 ea 09/06/23 12/23/23 Lancets) metformin 500 mg tablet 500 mg PO BIDWMEAL #60 tabs 09/06/23 12/23/23 pantoprazole 40 mg tablet,delayed 40 mg PO DAILY@0730 #10 tabs 09/06/23 12/23/23 release levothyroxine 150 mcg tablet 150 mcg PO DAILY 10/19/23 12/23/23 furosemide 40 mg tablet 40 mg PO BID@0830,1600 #60 tabs 10/28/23 12/23/23 insulin glargine 100 unit/mL (3 15 unit (0.15 mL) subcut QAM #15 mL 10/28/23 12/23/23 mL) subcutaneous pen (Lantus Solostar U-100 Insulin) insulin glargine 100 unit/mL (3 25 unit (0.25 mL) subcut HS #15 mL 10/28/23 12/23/23 mL) subcutaneous pen (Lantus Solostar U-100 Insulin) magnesium oxide 400 mg (241.3 mg 400 mg PO DAILY #30 tabs 10/28/23 12/23/23 magnesium) tablet potassium chloride 20 mEq 20 meq PO DAILY #30 tabs 10/28/23 12/23/23 tablet,extended release(part/cryst) (Klor-Con M) spironolactone 25 mg tablet 25 mg PO DAILY #90 tabs 11/21/23 12/23/23 cholecalciferol (vitamin D3) 1,250 1,250 mcg PO QWEEK 11/28/23 12/23/23 mcg (50,000 unit) capsule insulin aspart U-100 100 unit/mL 1 sliding scale dose subcut TID 11/29/23 12/23/23 (3 mL) subcutaneous pen polyethylene glycol 3350 17 17 g PO DAILY 11/29/23 12/23/23 gram/dose oral powder (ClearLax) cephalexin 500 mg tablet 500 mg PO TID 12/23/23 12/23/23 doxycycline hyclate 100 mg capsule 100 mg PO BID 12/23/23 12/23/23 metronidazole 0.75 % topical cream 1 applic topical BID 12/23/23 12/23/23 nystatin 100,000 unit/gram topical 1 applic topical DAILY 12/23/23 12/23/23 powder ([facility]) Previous Rx's Medication Instructions Recorded acetaminophen 500 mg tablet 1,000 mg (2 x 500 mg) PO TID #60 09/06/23 tabs blood sugar diagnostic (FreeStyle #100 ea 09/06/23 Lite Strips) blood-glucose meter (FreeStyle #1 ea 09/06/23 Lite Meter kit) docusate sodium 100 mg capsule 100 mg PO DAILY #30 caps 09/06/23 (Colace) ferrous sulfate 325 mg (65 mg 325 mg PO DAILY #30 tabs 09/06/23 iron) tablet lancets 28 gauge (FreeStyle #100 ea 09/06/23 Lancets) metformin 500 mg tablet 500 mg PO BIDWMEAL #60 tabs 09/06/23 pantoprazole 40 mg tablet,delayed 40 mg PO DAILY@0730 #10 tabs 09/06/23 release furosemide 40 mg tablet 40 mg PO BID@0830,1600 #60 tabs 10/28/23 insulin glargine 100 unit/mL (3 15 unit (0.15 mL) subcut QAM #15 mL 10/28/23 mL) subcutaneous pen (Lantus Solostar U-100 Insulin) insulin glargine 100 unit/mL (3 25 unit (0.25 mL) subcut HS #15 mL 10/28/23 mL) subcutaneous pen (Lantus Solostar U-100 Insulin) magnesium oxide 400 mg (241.3 mg 400 mg PO DAILY #30 tabs 10/28/23 magnesium) tablet potassium chloride 20 mEq 20 meq PO DAILY #30 tabs 10/28/23 tablet,extended release(part/cryst) (Klor-Con M) spironolactone 25 mg tablet 25 mg PO DAILY #90 tabs 11/21/23 Allergies Allergy/AdvReac Type Severity Reaction Status Date / Time No Known Allergies Allergy Verified 12/23/23 12:59 General Stated Complaint: SutureRem TRINIDAD: 3 Review of Systems All systems reviewed & are unremarkable except as noted in HPI and below Integumentary/Breasts Skin/Breast: Reports as per HPI, Reports erythema (Surrounding the surgical incision stable placement,) and Reports wounds (Healing surgical incision noted) Exam GI Inspection: large pannus and other (Incision noted to right upper quadrant, approximately 8 cm in length,) Abdomen image: 2 1. Surgical incision noted with [address], there is some slight erythema surrounding the parish, the parish were removed #10, #8 Steri-Strips applied and incision cleaned with chlorhexidine. Course Vital Signs Vital signs: Vital Signs Temperature 36.6 C 12/23/23 12:52 Pulse 87 12/23/23 12:52 Respiratory Rate 18 12/23/23 12:52 Blood Pressure 123/64 12/23/23 12:52 Temperature 36.6 C 12/23/23 12:52 Temperature Source Tympanic 12/23/23 12:52 Pulse 87 12/23/23 12:52 Respiratory Rate 18 12/23/23 12:52 Blood Pressure 123/64 12/23/23 12:52 Blood Pressure Position Sitting 12/23/23 12:52 Oxygen Delivery Method Room Air 12/23/23 12:52 Oxygen Flow Rate 0 12/23/23 12:52 Pain Level 7 12/23/23 12:52 Comment Apap TID 12/23/23 12:52 Medical Decision Making 73-year-old female presents to the ER via EMS purulence from the [place] after having cholecystectomy. There are concern for infection at the incision site due to the parish. Patient denies any fever chills body aches no active drainage no noted from the incision at this time. There is some slight erythema surrounding the parish. There are [address] wound is well- approximated. I did remove the 10 parish in applied 8 Steri-Strips incision was cleaned with chlorhexidine. No dehiscence noted wound well-approximated. Patient is reportedly taking an antibiotic at this time cephalexin. Will place her on the surgical follow-up list for reevaluation. She does have an appointment on the . Will suggest follow-up in the next week. Will place patient on surgery care management follow-up list for approximately 5 to 7 days, will place an ABD pad and instruct on continued guarding and home care strict return instructions. Will instruct to continue taking the antibiotic as previously prescribed. This text was generated using Kanmuation system, please disregard any oddities of phrase or misspellings. Medical Records Medical records reviewed: Yes I reviewed the patient's medical records. Quality:SDOH Health Related Social Needs: 2 No Data to Display PFSH All Active Problems (Updated 12/23/23 @ 13:28 by Willow Neal NP) Wound cellulitis after surgery (Acute) Removal of parish (Acute) Diarrhea (Acute) Dysuria (Acute) Constipation (Acute) Anemia in chronic illness (Acute) Transaminitis (Acute) Obesity (Chronic) Unstageable pressure ulcer of right heel (Acute) Poorly controlled type 2 diabetes mellitus with peripheral neuropathy (Acute) Low serum iron (Acute) Lumbar back pain with radiculopathy affecting right lower extremity (Acute) Ambulatory dysfunction (Acute) Weakness (Acute) Medical History Cholecystitis Hypothyroid Gram-negative bacteremia Pleural effusion, left Hyperglycemia due to type 2 diabetes mellitus Urinary tract infection Palliative care patient Physician orders for life-sustaining treatment (POLST) form indicates patient wish for ft-wuy-glbiwazootd status ACP (advance care planning) Stroke Diabetes CHF (congestive heart failure) 2020, pt. denies any deficits now Surgical History History of ERCP S/P tonsillectomy Social History Smoking/Tobacco Use Status: Never Smoking risk assessment performed?: Yes Alcohol Intake: never Drug use: Never Substance use type: does not use Housing: halfway What is your relationship status?: Panel score (0-1 are the most socially isolated patients): 0 Do you feel safe at home: Yes Do you feel safe in your relationship?: Yes
--- NOTE | 2023-12-23 22:46 | NUR.NOTE ---
Pt placed on care management referral list for Incision to be seen by General Surgery within 5-7days
== END 2023-12-23 14:07 | disposition skilled nursing facility (03) ==
PROVIDERS: Emergency Provider Registered Nurse Emergency; PCP Nurse Practitioner Gerontology
DX: L76.82 Other postprocedural complications of skin and subcutaneous tissue (principal); L03.311 Cellulitis of abdominal wall; E11.9 Type 2 diabetes mellitus without complications; I50.9 Heart failure, unspecified; Z79.84 Long term (current) use of oral hypoglycemic drugs; Z79.4 Long term (current) use of insulin; Z90.49 Acquired absence of other specified parts of digestive tract; Z86.73 Personal history of transient ischemic attack (TIA), and cerebral infarction without residual deficits
CPT/HCPCS: 99283

== ENCOUNTER 2023-12-26 18:22 | Outpatient (REF) | payer MEDICARE, MEDICAID, SELFPAY ==
[2023-12-26 17:38] LABS: Abs Immature Grans 0.02 10^3/uL (0.0-0.06); Absolute Basophil Count 0.02 10^3/uL (0.0-0.2); Absolute Lymphocyte Count 2.06 10^3/uL (1.2-3.4); Absolute Monocyte Count 0.51 10^3/uL (0.1-0.8); Absolute Neutrophil Count 4.99 10^3/uL (1.2-6.7); Basophils % 0.3 %; HCT 36.7 % (36.0-46.0); HGB 11.6 g/dL (11.2-15.7); Immature Grans % 0.3 %; Lymphocytes % 25.8 %; MCH 26.8 pg (27.0-33.0); MCHC 31.6 % (32.0-36.0); MCV 85 fL (80-95); MPV 9.4 fL (8.0-11.0); Monocytes % 6.4 %; Neutrophils % 62.2 %; Platelet Count 286 10^3/uL (130-400); RBC 4.33 10^6/uL (3.93-5.22); RDW 16.5 % (11.7-14.6); RDW-SD 51.3 fL
[2023-12-26 17:39] LABS: Magnesium 1.3 mg/dL (1.8-2.4)
== END 2023-12-26 18:23 | disposition home or self-care (01) ==
LOC: LBN 18:22
PROVIDERS: PCP Nurse Practitioner Gerontology; Visit Provider Nurse Practitioner Gerontology
DX: E11.621 Type 2 diabetes mellitus with foot ulcer (principal); E83.42 Hypomagnesemia
CPT/HCPCS: 83036; 83735; 85025

== ENCOUNTER 2024-01-03 01:55 | Outpatient (RCR) | payer MEDICARE, MEDICAID, SELFPAY ==
[2023-12-20] MEDS: IRON SUCROSE COMPLEX 200 MG in Normal Saline 100 ML 440 MG IVPB (10:38)
[2023-12-20] MEDS: Normal Saline Flush 10 ML SYR IVP (10:39)
[2023-12-27] MEDS: Normal Saline Flush 10 ML SYR IVP (10:11)
[2023-12-27] MEDS: IRON SUCROSE COMPLEX 200 MG in Normal Saline 100 ML 440 MG IVPB (10:11)
[2024-01-03] MEDS: IRON SUCROSE COMPLEX 200 MG in Normal Saline 100 ML 440 MG IVPB (10:15)
[2024-01-03] MEDS: Normal Saline Flush 10 ML SYR IVP (10:15)
== END 2024-01-18 23:59 | disposition home or self-care (01) ==
LOC: INF 01:55
PROVIDERS: PCP Nurse Practitioner Gerontology; Visit Provider Surgery
DX: D63.8 Anemia in other chronic diseases classified elsewhere (principal)
CPT/HCPCS: 96365; J1756

== ENCOUNTER → 2024-01-05 13:41 | Outpatient (BNVA) | payer MEDICARE, MEDICAID, SELFPAY | PROVIDERS: PCP Nurse Practitioner Gerontology; Referring Provider Nurse Practitioner Gerontology; Visit Provider Surgery | DX: Z48.815 Encounter for surgical aftercare following surgery on the digestive system (principal); Z90.49 Acquired absence of other specified parts of digestive tract ==

== ENCOUNTER → 2024-01-12 09:24 | Outpatient (BNVA) | payer MEDICARE, MEDICAID, SELFPAY | PROVIDERS: PCP Nurse Practitioner Gerontology; Referring Provider Nurse Practitioner Gerontology; Visit Provider Podiatrist | DX: E11.42 Type 2 diabetes mellitus with diabetic polyneuropathy (principal); E11.65 Type 2 diabetes mellitus with hyperglycemia; R20.2 Paresthesia of skin; R60.9 Edema, unspecified; B35.1 Tinea unguium; L60.3 Nail dystrophy | CPT/HCPCS: 11719 ==

== ENCOUNTER 2024-01-23 18:12 | Outpatient (REF) | payer MEDICARE, MEDICAID, SELFPAY ==
[2024-01-23 20:01] LABS: ALT 25 U/L (14-59); AST 13 U/L (15-37); Albumin 3.4 g/dL (3.4-5.0); Alkaline Phosphatase 68 U/L (46-116); Anion Gap 9.4 mmol/L (3-11); BUN 23 mg/dL (7-18); Bilirubin, Total 0.26 mg/dL (0.2-1.0); CO2 29.6 mmol/L (21.0-32.0); Calcium 9.3 mg/dL (8.5-10.1); Chloride 96 mmol/L (98-107); Estimated GFR 59.12 (mL/min/1.73m2); Glucose 333 mg/dL (74-106); NT-proBNP 334 pg/mL (<300); Potassium 4.3 mmol/L (3.5-5.1); Sodium 135 mmol/L (136-145); Total Protein 7.5 g/dL (6.4-8.2)
== END 2024-01-23 18:13 | disposition home or self-care (01) ==
LOC: LBN 18:12
PROVIDERS: PCP Nurse Practitioner Gerontology; Visit Provider Nurse Practitioner Gerontology
DX: I50.33 Acute on chronic diastolic (congestive) heart failure (principal)
CPT/HCPCS: 80053; 83880

== ENCOUNTER 2024-01-30 19:02 | Outpatient (REF) | payer MEDICARE, MEDICAID, SELFPAY ==
--- OUTSIDE RECORDS SUMMARY | 2024-01-30 19:03 | XMS_ITS | Encounter Summary ---
Author Organization [facility] Address [address] [place] [address] Care Team Providers Care Academic Affairs Director Name Role Phone Unknown, Provider Primary Care Provider [phone] Encounter Details Date Type Department Care Team (Late st Contact Info) Description 11/30/2023 Lab Requisition [facility] Pathology & Laboratory Medicine - [address] [place] [address] Pressure ulcer of right heel, unstageable (HCC-CMS); Hypothyroidism, unspecified; Acute cystitis without hematuria; Chronic diastolic (congestive) heart failure (HCC-CMS); Anemia in other chronic diseases classified elsewhere; Type 2 diabetes mellitus with hyperglycemia (HCC-CMS); 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); Pneumonia, unspecified organism; Cholecystitis, unspecified Social History Tobacco Use Types Packs/Day Years Used Date Smoking Tobacco: Never Assessed Sex and Gender Information Value Date Recorded Sex Assigned at Not on file Gender Identity Not on file Sexual Orientation Not on file documented as of this encounter Plan of Treatment Not on file documented as of this encounter Procedures Procedure Name Priority Date/Time Associated Diagnosis Comments SURGICAL PATHOLOGY Today 11/29/2023 14 :25 EDT Pressure ulcer of right heel, unstageable (HCC-CMS) Hypothyroidism, unspecified Acute cystitis without hematuria Chronic diastolic (congestive) heart failure (HCC-CMS) Anemia in other chronic diseases classified elsewhere Type 2 diabetes mellitus with hyperglycemia (HCC-CMS) 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 Please allow time for your provider to receive these results and explore management options, if applicable. 12/05/2023 11:34 [facility] Final Diagnosis A. 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 - Acute serositis and adhesions. - Cholelithiasis. - Benign reactive lymph node. 12/05/2023 11:34 [facility] Attestation There was significan t resident/fellow involvement in the diagnostic evaluation of this case. By the signature below, the attending physician certifies that they have personally conducted a gross and/or microscopic examination of the described specimens and rendered or confirmed the above diagnosis. 12/05/2023 11:34 [facility] at 1134 Clinical History Cholecystitis, S/P cholecystostomy tube insertion 11/16/2023, developed sepsis with WBC 31,000, now open robert 12/05/2023 11:34 [facility] Gross Description A. Received in formalin labelled with proper patient identification (initials M, S) and gallbladder +stones is a fragmented, markedly ragged gallbladder and attached portion of cystic duct, 6.5 x 4.0 x 3.8 cm. The serosa is dull haskins brown, roughened with wispy adhesions. A possible periductal lymph node is present, 0.8 cm in greatest dimension. The cystic duct lumen measures 0.6 cm in diameter and is obstructed by a dark brown-black to barakat yellow calculus. The gallbladder mucosa ranges from granular [place] to roughened and hemorrhagic. The gallbladder wall is thickened and focally indurated. Received in the same container is a collapsed saccular necrotic tissue, 7.0 x 3.5 cm. The outer surface is dusky green brown to focally granular dark brown. The inner lining is dusky orange brown. The necrotic wall ranges from 0.1 to 0.7 cm in thickness. Also received in the same container are multiple additional fragmented dense haskins-brown tissue fragments aggregating to 0.5 x 2.5 x 1.0 cm. Also received are several brown-black smooth multifaceted calculi. [employer] sections are submitted as follows: BLOCK MARIA A1- cystic duct margin, en face and bisected possible periductal lymph node A2-A6- field service representative sections gallbladder wall A7- section separately submitted necrotic saccular tissue A8- field service representative sections separately submitted tissue fragments MELO HILLIARD(ASCP) 11/30/2023 10:55 12/05/2023 11:34 EDT [facility] Resident/Fell ow: Jefry Montez DO 12/05/2023 11:34 EDT [facility] Performing Lab [facility] 12/05/2023 11:34 EDT [facility] Scanned Images 12/05/2023 11:34 EDT [facility] Tissue GALLBLADDER STRUCTURE / Unknown 11/29/2023 14:25 EDT 11/30/2023 8:14 EDT Kirit Tejeda PATHOLOGY ORDERABLES [facility] [address] [place] [address] documented in this encounter Visit Diagnoses Diagnosis Pressure ulcer of right heel, unstageable ([facility]-CMS) Hypothyroidism, unspecified Acute cystitis without hematuria Acute cystitis Chronic diastolic (congestive) heart failure ([facility]-CMS) Anemia in other chronic diseases classified elsewhere Type 2 diabetes mellitus with hyperglycemia ([facility]) Type II or unspecified type diabetes mellitus without mention of complication, not stated as uncontrolled Type 2 diabetes mellitus with diabetic polyneuropathy ([facility]-CMS) Type II or unspecified type diabetes mellitus with neurological manifestations, not stated as uncontrolled Pneumonia, unspecified organism Cholecystitis, unspecified documented in this encounter Care Teams Academic Affairs Director Relationship Specialty Start Date End Date Unknown, Provider, PCP - General 11/19/23 documented as of this encounter
--- OUTSIDE RECORDS SUMMARY | 2024-01-30 19:03 | XMS_ITS | Encounter Summary ---
Author Organization [facility] Address [address] [place] [address] Care Team Providers Care Dinner Cook Name Role Phone Unknown, Provider Primary Care Provider Encounter Details Date Type Department Care Team (Late st Contact Info) Description 10/17/2023 Lab Requisition [facility] Pathology & Laboratory Medicine - [facility] [address] [place], [place] [address] Outr Resulting Lab, Provider Social History Tobacco Use Types Packs/Day Years Used Date Smoking Tobacco: Never Assessed Sex and Gender Information Value Date Recorded Sex Assigned at Not on file Gender Identity Not on file Sexual Orientation Not on file documented as of this encounter Plan of Treatment Not on file documented as of this encounter Procedures Procedure Name Priority Date/Time Associated Diagnosis Comments OSMOLALITY Routine 10/16/2023 13:39 EDT documented in this encounter Results * (ABNORMAL) OSMOLALITY (10/16/2023 13:39 EDT) Osmolality, Serum 303(H) 275 - 295 mOsm/kg 10/17/2023 16:57 EDT [facility] Blood VENOUS BLOOD / Unknown 10/16/2023 13:39 EDT 10/17/2023 16:27 EDT Provider Outr Resulting Lab CHEMISTRY & BLOOD GAS ORDERABLES [facility] [address] [place], [place] [id number] documented in this encounter Visit Diagnoses Not on filedocumented in this encounter Care Teams Dinner Cook Relationship Specialty Start Date End Date Unknown, ProviderMD PCP - General 11/19/23 documented as of this encounter
--- OUTSIDE RECORDS SUMMARY | 2024-01-30 19:03 | XMS_ITS | Encounter Summary ---
Author Organization [facility] Address [address] [place] [address] Care Team Providers Care Kiln Tender Name Role Phone Unknown, Provider Primary Care Provider Encounter Details Date Type Department Care Team (Late st Contact Info) Description 09/05/2023 Lab Requisition [facility] Pathology & Laboratory Medicine - [address] [address] Outr Resulting Lab, Provider Social History Tobacco [...] Procedure Name Priority Date/Time Associated Diagnosis Comments TRANSFERRIN Routine 09/05/2023 6:09 EDT documented in this encounter Results * (ABNORMAL) TRANSFERRIN (09/05/2023 6:09 EDT) Transferrin 156(L) 201 - 352 mg/dL 09/06/2023 9:56 EDT [facility] Blood VENOUS BLOOD / Unknown 09/05/2023 6:09 EDT 09/05/2023 16:50 EDT Provider Outr Resulting Lab CHEMISTRY & BLOOD GAS ORDERABLES [facility] [address] [place], [place] [address] documented in this encounter Visit Diagnoses Not on filedocumented in this encounter Care Teams Kiln Tender Relationship Specialty Start Date End Date Unknown, ProviderMD PCP - General 11/19/23 documented as of this encounter
--- OUTSIDE RECORDS SUMMARY | 2024-01-30 19:03 | XMS_ITS | Encounter Summary ---
Author Organization [facility] Address [address] [place] [address] Care Team Providers Care Carpenters Helper Name Role Phone Unknown, Provider Primary Care Provider Encounter Details Date Type Department Care Team (Late st Contact Info) Description 10/17/2023 Lab Requisition [facility] Pathology & Laboratory Medicine - [address] [id number] Outr Resulting Lab, Provider Social History Tobacco [...] Procedure Name Priority Date/Time Associated Diagnosis Comments OSMOLALITY, URINE Routine 10/16/2023 14: 38 EDT documented in this encounter Results * OSMOLALITY, URINE (10/16/2023 14:38 EDT) Osmolality, Urine 606 150 - 1,150 mOsm/kg 10/17/2023 16:39 EDT [facility] Urine URINE / Unknown 10/16/2023 1 4:38 EDT 10/17/2023 16:27 EDT Provider Outr Resulting Lab URINALYSIS O RDERABLES [facility] [address] [place], [place] [address] documented in this encounter Visit Diagnoses Not on filedocumented in this encounter Care Teams Carpenters Helper Relationship Specialty Start Date End Date Unknown, ProviderMD PCP - General 11/19/23 documented as of this encounter
--- OUTSIDE RECORDS SUMMARY | 2024-01-30 19:03 | XMS_ITS | Clinical Summary ---
Author Organization [facility] Address [address] [place] [address] Care Team Providers Care Social Services Specialist Name Role Phone Unknown, Provider Primary Care Provider Encounters Date Type Department Care Team Description 11/30/2023 Lab Requisition [facility] Pathology & Laboratory Medicine - [address] [address] Kirit Tejeda Pressure ulcer of right heel, unstageable (HCC-CMS); Hypothyroidism, unspecified; Acute cystitis without hematuria; Chronic diastolic (congestive) heart failure (HCC-CMS); Anemia in other chronic diseases classified elsewhere; Type 2 diabetes mellitus with hyperglycemia (HCC-CMS); 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); Pneumonia, unspecified organism; Cholecystitis, unspecified from Last 3 Months Social History Tobacco Use Types Packs/Day Years Used Date Smoking Tobacco: Never Assessed Sex and Gender Information Value Date Recorded Sex Assigned at Not on file Gender Identity Not on file Sexual Orientation Not on file Plan of Treatment Health Maintenance Due Date Last Done Comments Hepatitis C Screen 1950 RSV Immunization ( o r 60+ Years) (1 - 1-dose 60+ series) 2009 Fall Risk Screening 2014 COVID-19 Vaccine (2022- season) 2023 Procedures Procedure Name Priority Date/Time Associated Diagnosis Comments SURGICAL PATHOLOGY Today 11/29/2023 14 :25 EDT Pressure ulcer of right heel, unstageable (HCC-CMS) Hypothyroidism, unspecified Acute cystitis without hematuria Chronic diastolic (congestive) heart failure (HCC-CMS) Anemia in other chronic diseases classified elsewhere Type 2 diabetes mellitus with hyperglycemia (HCC-CMS) 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 Please allow time for your provider to receive these results and explore management options, if applicable. 12/05/2023 11:34 [facility] Final Diagnosis A. 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 - Acute serositis and adhesions. - Cholelithiasis. - Benign reactive lymph node. 12/05/2023 11:34 [facility] Attestation There was significan t resident/fellow involvement in the diagnostic evaluation of this case. By the signature below, the attending physician certifies that they have personally conducted a gross and/or microscopic examination of the described specimens and rendered or confirmed the above diagnosis. 12/05/2023 11:34 [facility] at 1134 Clinical History Cholecystitis, S/P cholecystostomy tube insertion 11/16/2023, developed sepsis with WBC 31,000, now open robert 12/05/2023 11:34 [facility] Gross Description A. Received in [...] received are several brown-black smooth multifaceted calculi. Hospice Clinical Marketer sections are submitted as follows: BLOCK MARIA A1- cystic duct margin, en face and bisected possible periductal lymph node A2-A6- customer relations representative sections gallbladder wall A7- section separately submitted necrotic saccular tissue A8- customer relations representative sections separately submitted tissue fragments MELO HILLIARD(ASCP) 11/30/2023 10:55 12/05/2023 11:34 EDT [facility] Resident/Fell ow: Jefry Montez DO 12/05/2023 11:34 EDT [facility] Performing Lab [facility] 12/05/2023 11:34 EDT [facility] Scanned Images 12/05/2023 11:34 EDT [facility] Tissue GALLBLADDER STRUCTURE / Unknown 11/29/2023 14:25 EDT 11/30/2023 8:14 EDT Kirit Tejeda PATHOLOGY ORDERABLES [facility] [address] [place] [address] from Last 3 Months Care Teams Social Services Specialist Relationship Specialty Start Date End Date Unknown, Provider, PCP - General 11/19/23
--- OUTSIDE RECORDS SUMMARY | 2024-01-30 19:03 | XMS_ITS | Referral Summary ---
Author Organization [facility] Address [address] [place] [address] Care Team Providers Care Senior Executive Assistant Name Role Phone Unknown, Provider Primary Care Provider Encounters Date Type Department Care Team Description 11/30/[address] [facility] Pathology & Laboratory Medicine - [address] [address] Kirit Tejeda Pressure ulcer of right heel, [...] Orientation Not on file Plan of Treatment Not on file Procedures Procedure Name Priority Date/Time Associated Diagnosis [...] explore management options, if applicable. 12/05/2023 11:34 [facility] Final Diagnosis A. 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 - Acute serositis and adhesions. - Cholelithiasis. - Benign reactive lymph node. 12/05/2023 11:34 [facility] Attestation There was significan t resident/fellow involvement in the diagnostic evaluation of this case. By the signature below, the attending physician certifies that they have personally conducted a gross and/or microscopic examination of the described specimens and rendered or confirmed the above diagnosis. 12/05/2023 11:34 [facility] at 1134 Clinical History Cholecystitis, S/P cholecystostomy tube insertion 11/16/2023, developed sepsis with WBC 31,000, now open robert 12/05/2023 11:34 [facility] Gross Description A. Received [...] received are several brown-black smooth multifaceted calculi. Multimedia Authoring Specialist sections are submitted as follows: BLOCK MARIA A1- cystic duct margin, en face and bisected possible periductal lymph node A2-A6- field representative/health education sections gallbladder wall A7- section separately submitted necrotic saccular tissue A8- field representative/health education sections separately submitted tissue fragments MELO HILLIARD(ASCP) 11/30/2023 10:55 12/05/2023 11:34 EDT [facility] Resident/Fell ow: Jefry Montez DO 12/05/2023 11:34 EDT [facility] Performing Lab [facility] 12/05/2023 11:34 EDT [facility] Scanned Images 12/05/2023 11:34 EDT [facility] Tissue GALLBLADDER STRUCTURE / Unknown 11/29/2023 14:25 EDT 11/30/2023 8:14 EDT Kirit Tejeda PATHOLOGY ORDERABLES [facility] [address] [place], [place] [address] from Last 3 Months Care Teams Senior Executive Assistant Relationship Specialty Start Date End Date Unknown, Provider, PCP - General 11/19/23
--- OUTSIDE RECORDS SUMMARY | 2024-01-30 19:04 | XMS_ITS | Encounter Summary ---
Author Organization Pending Sale To [facility] Address [facility] [place] [address] Care Team Providers Care Tar Kettle Runner Name Role Phone Unavailable Primary Care Provider Unavailabl e Encounter Details Date Type Department Care Team (Late st Contact Info) Description 11/11/2023 12:05 AM EDT Ancillary Procedure Radiology Library at [facility] [place] [address] Morgan Beauchamp MD [facility] [place] [address] Social History Tobacco Use Types Packs/Day Years Used Date Smoking Tobacco: Never Assessed Sex and Gender Information Value Date Recorded Sex Assigned at Not on file Gender Identity Not on file Sexual Orientation Not on file documented as of this encounter Plan of Treatment Upcoming Encounters Date Type Department Care Team (Late st Contact Info) Description 04/30/2024 10:40 AM EST Office Visit Dermatology at [facility] [address] [place] [address] documented as of this encounter Procedures Procedure Name Priority Date/Time Associated Diagnosis Comments FILM LIBRARY STORAGE ONLY CT ABDOMEN Routine 11/11/2023 12:05 AM EDT documented in this encounter Results * Film Library- Storage Only CT Abdomen (11/11/2023 12:05 AM EDT) Narrative [facility] - 11/15/2023 9:12 AM EDT This exam is auto-finalizing. It's purpose is for storage only. Morgan Beauchamp MD IMG FILM LIBRARY ORD ERABLES LIZET Vickers documented in this encounter Visit Diagnoses Not on filedocumented in this encounter
--- OUTSIDE RECORDS SUMMARY | 2024-01-30 19:04 | XMS_ITS | Clinical Summary ---
Author Organization [facility] [place] [address] Care Team Providers Care Quality Assurance Director Name Role Phone Unavailable Primary Care Provider Unavailabl e Encounters Date Type Department Care Team Description 12/06/2023 [place] [phone] Jose Mendiola MD 11/29/2023 2:20 AM EDT Ancillary Procedure [place] [phone] Efraín Deras MD 11/16/2023 12:36 PM EDT - 11/16/2023 11:59 PM EDT Hospital [place] [address] Efraín Teran DO Acute cholecystitis Discharge Disposition: Home 11/16/2023 Travel 11/15/2023 [place] [address] Merissa Oakes PA Acute cholecystitis 11/14/2023 Ancillary Procedure [place] [address] Morgan Beauchamp MD 11/11/2023 12:05 AM EDT Ancillary Procedure [place] [address] Morgan Beauchamp MD 11/11/2023 Ancillary Procedure Radiology Library [place] [facility] [address] Moragn Beauchamp MD from Last 3 Months Social History Tobacco Use Types Packs/Day Years Used Date Smoking Tobacco: Never Assessed Sex and Gender Information Value Date Recorded Sex Assigned at Not on file Gender Identity Not on file Sexual Orientation Not on file Last Filed Vital Signs Vital Sign Reading Time Taken Comments Blood Pressure 149/58 11/16/2023 3:30 PM EDT Pulse 82 11/16/2023 2:50 PM EDT Temperature 36 ??C (96.8 ??F) 11/16/2023 3:00 PM EDT Respiratory Rate 18 11/16/2023 3:30 PM EDT Oxygen Saturation 90% 11/16/2023 3:30 PM EDT Inhaled Oxygen Concentration - - Weight - - Height - - Body Mass Index - - Plan of Treatment Upcoming Encounters Date Type Department Care Team (Late st Contact Info) Description 04/30/2024 10:40 AM EST Office Visit Dermatology at [address] [place] [address] Health Maintenance Due Date Last Done Comments CT Colonography 1950 Colonoscopy 1950 Colorectal Cancer Screening 1950 FIT DNA 1949 FIT 1950 Sigmoidoscopy (10 year) with FIT yearly 1949 Sigmoidoscopy 1949 Hepatitis C Screening 10/08/1967 Tdap adult 1968 Tetanus vaccine 1968 Breast Cancer Share Decision Needed 1989 Breast Cancer screening 1989 Zoster vaccine (1 of 2) 10/08/1999 Advance Directive 2004 Bone Density Scan 2014 Pneumoccocal Vaccine: 65+ (1 of 1 - PCV) 2014 Covid-19 Vaccine (1 - 2022-24 season) 2023 Influenza (Flu) vaccine (1 o f 1 - Influenza standard series) 02/19/2024 Procedures Procedure Name Priority Date/Time Associated Diagnosis Comments FILM LIBRARY STORAGE ONLY CT CHEST ABDOMEN PELVIS Routine 11/29/2023 2:17 AM EDT POCT GLUCOSE Routine 11/16/2023 3:18 PM EDT IR CHOLECYSTOSTOMY TUBE PLACEMENT Routine 11/16/2023 2:57 PM EDT Acute cholecystitis ANAEROBIC CULTURE Routine 11/16/2023 2:3 5 PM EDT BODY FLUID CULTURE, AEROBIC Routine 11/16/2023 2:35 PM EDT HC BODY FLUID CULTURE Routine 11/16/2023 2:35 PM EDT POCT GLUCOSE Routine 11/16/2023 1:35 PM EDT FILM LIBRARY STORAGE ONLY CT ABDOMEN Routine 11/14/2023 12:00 AM EDT FILM LIBRARY STORAGE ONLY CT ABDOMEN Routine 11/11/2023 12:05 AM EDT FILM LIBRARY STORAGE ONLY NUCLEAR MEDICINE Routine 11/11/2023 12:00 AM EDT from Last 3 Months Results * Film Library- Storage Only CT Chest Abdomen Pelvis (11/29/2023 2:17 AM EDT) Narrative [facility] - 11/29/2023 2:17 AM EDT This exam is auto-finalizing. It's purpose is for storage only. Efraín Deras MD IM FILM LIBRARY ORD ERABLES Performing Organization Address City/[facility] Co de Phone Number [place], [place] * POCT Glucose (11/16/2023 3:18 PM EDT) Only the most recent of2 resultswithin the time period is included. Glucose, POC 94 65 - 199 mg/dL [facility] Comment: Supplemental ranges: <140 mg/dL before meals <180 mg/dL all other times of the day Blood 11/16/2023 3:18 PM EDT 11/16/2023 3:18 PM EDT Efraín Teran DO POINT OF CARE TEST O RDERABLES [facility] [place] [address] * IR Cholecystostomy Tube Placement (11/16/2023 2:57 PM EDT) Anatomical Region Laterality Modality X-Ray Angiograph y Narrative 11/17/2023 11:15 AM EDT Images from the original result were not included. INTERVENTIONAL RADIOLOGY PROCEDURE NOTE Procedure: Percutaneous cholecystostomy catheter placement Indication for Procedure: Acute cholecystitis Informed Consent: After discussing risks (including infection, trauma / damage to surrounding structures, hemorrhage, non-success, amongst others), and benefits of the procedure, the patient consented to the procedure. Monitoring and Sedation Details: Due to the painful nature of the procedure, patient received split doses of intravenous fentanyl and versed from the IR nurse while pulse, pressure, end tidal CO2 parameters and oxygen saturation were continuously monitored. Technique: A standard time-out was conducted just before the start of the procedure to verify all mart aspects; including the correct patient and planned procedure, procedure location, informed consent, and all relevant critical information, all of which were correct. ??The patient was positioned supine on the procedure table. ??The right upper quadrant of the abdomen was cleaned and prepped in typical sterile fashion; maximum sterile barrier technique was used throughout. ?? The patient received a dose of antibiotics within 30 minutes of the procedure prophylaxis. Ultrasound of the right upper quadrant including gallbladder was performed. Lidocaine SQ was administered for local anesthesia. Under US guidance, a 18-gauge ga needle was advanced into the gallbladder. ?? Purulent العراقي fluid was aspirated and sent for culture. ??An 035 Amplatz guidewire was advanced into the gallbladder under ultrasound guidance. Under fluoroscopy, the tract was dilated and a 10 Malay Fr locking pigtail drain was advanced into the gallbladder lumen. ??100 cc العراقي purulent fluid aspirated. ??Contrast was injected into the gallbladder drain. ??Fluoroscopic spot image obtained. Catheter secured to the skin with 2-0 proline, flushed with saline and left to bag drainage. Medications: Fentanyl 100 mcg IV Versed 1.5 mg IV 1% Lidocaine <10ccs subcutaneous Antibiotic Prophylaxis: IV Zosyn 3.375 g ?? Contrast: 3 cc Omnipaque 350, other Fluoroscopic Time: 0.8 minutes Estimated Blood Loss: 5 cc. Complications: ??No immediate. Findings: Irregular thickened gallbladder wall distended with mixed heterogeneous solid and fluid debris on ultrasound. Final cholangiogram demonstrated irregular intraluminal filling without connection to common bile duct. Impression: ??Purulent bile, cholecystitis. ??Successful cholecystostomy drain placement. Plan: -Drain to bulb drainage, recommend forward flush with 3 to 5 cc normal saline twice a day. -6-week follow-up drain check, ordered and to be scheduled. -To angio recovery, may discharge to return via hospital transfer to [facility], when meets criteria Resident/Fellow: Alvin Harris MD Attending: Dr. Mendiola I, Dr. Mendiola, was present throughout the procedure. I was present during the intraservice time as documented by the IR Nurse. ?? Efraín Teran DO IMG IR ORDERABLES * Anaerobic Culture (11/16/2023 2:35 PM EDT) Anaerobic Culture No anaerobic organisms isolated [facility] Bile 11/16/2023 2:35 PM EDT 11/16/2023 3:54 PM EDT Comment:Cholecystomy Narrative Resulting Agency Comment Spec In Lab Jose Mendiola MD MICROBIOLOGY - [facility] AL ORDERABLES [facility] [place] [address] * (ABNORMAL) Body Fluid Culture, Aerobic (11/16/2023 2:35 PM EDT) Body Fluid Culture Many Escherichia coli(A) [facility] Gram Stain Few Neutrophils seen Moderate Gram Negative Rods (A) [facility] Organism Escherichia coli(A) [facility] Bile 11/16/2023 2:35 PM EDT 11/16/2023 3:54 PM EDT Comment:Cholecystomy Narrative Resulting Agency Comment Spec In Lab Organism Antibiotic Method Susceptibility Escherichia coli Amikacin VITEK 2 METHOD Sensitive Escherichia coli Ampicillin VITEK 2 METHOD Resistant Escherichia coli Ampicillin + Sulbactam VITEK 2 METHOD Resistant Escherichia coli Cefazolin (Systemic) VITEK 2 METHOD Resistant Escherichia coli Ceftriaxone VITEK 2 METHOD Resistant Escherichia coli Ciprofloxacin VITEK 2 METHOD Resistant Escherichia coli Ertapenem VITEK 2 METHOD Intermediate Escherichia coli Gentamicin VITEK 2 METHOD Sensitive Escherichia coli Levofloxacin VITEK 2 METHOD Resistant Comment: Levofloxacin and Ciprofloxacin may not adequately treat infections in critically ill patients even when isolates test susceptible in the laboratory. Contact Infectious Disease before using in critically ill patients. Escherichia coli Meropenem VITEK 2 METHOD <=0.25: Sensitive Escherichia coli Piperacillin/Tazobactam VITEK 2 METHO D >=128: Resistant Escherichia coli Trimethoprim/Sulfa VITEK 2 METHOD Resistant Jose Mendiola MD MICROBIOLOGY - GENER AL ORDERABLES [facility] [place] [address] * Film Library- Storage Only CT Abdomen (11/14/2023 12:00 AM EDT) Only the most recent of2 resultswithin the time period is included. Narrative [facility] - 11/15/2023 9:10 AM EDT This exam is auto-finalizing. It's purpose is for storage only. Morgan Beauchamp MD [facility] FILM LIBRARY ORD ERABLES Performing Organization Address [facility] de Phone Number [place], [place] * Film Library- Storage Only nuclear medicine (11/11/2023 12:00 AM EDT) Narrative [facility] - 11/15/2023 9:11 AM EDT This exam is auto-finalizing. It's purpose is for storage only. Morgan Beauchamp MD [facility] FILM LIBRARY ORD ERABLES Performing Organization Address City/[facility]/ZIP Co de Phone Number [place], [place] from Last 3 Months Advance Directives * Attempt Cardiopulmonary Resuscitation - Inpatient (Latest Code Status on File) Date Activated Date Inactivated Comments 11/16/2023 12:56 PM 11/17/2023 4:36 AM Question Answer Comments Code Status decision made by: Patient
--- OUTSIDE RECORDS SUMMARY | 2024-01-30 19:04 | XMS_ITS | Encounter Summary ---
Author Organization [facility] Address [facility] [place] [address] Care Team Providers Care Internet Sales Consultant Name Role Phone Unavailable Primary Care Provider Unavailabl e Reason for Referral * Diagnostic Test (Routine) - Pending Review Specialty Diagnoses / Procedures Referred By Silvana taylor Referred To Contact Radiology Diagnoses Acute cholecystitis Procedures IR Cholecystostomy Tube Placement Merissa Oakes PA [facility] [place] [address] [facility] [address] Referral ID Status Reason Start Date Expiration Date Visits Requested Visits Authorized [id number] Pending Review Specialty Service Requested 11/15/2023 05/17/2025 1 1 Reason for Visit * Diagnostic Test (Routine) - Pending Review Specialty Diagnoses / Procedures Referred By Silvana taylor Referred To Contact Radiology Diagnoses Acute cholecystitis Procedures IR Cholecystostomy Tube Placement Merissa Oakes PA [facility] [place] [address] [place] [address] Referral ID Status Reason Start Date Expiration Date Visits Requested Visits Authorized [id number] Pending Review Specialty Service Requested 11/15/2023 05/17/2025 1 1 Encounter Details Date Type Department Care Team (Latest Contact Info) Description 11/16/2023 12:36 PM EDT - 11/16/2023 11:59 PM EDT Hospital [place] [address] Efraín Teran, [facility] [place] [address] Acute cholecystitis Discharge Disposition: Home Social History Tobacco Use Types Packs/Day Years Used Date Smoking Tobacco: Never Assessed Sex and Gender Information Value Date Recorded Sex Assigned at Not on file Gender Identity Not on file Sexual Orientation Not on file documented as of this encounter Last Filed Vital Signs Vital Sign Reading Time Taken Comments Blood Pressure 149/58 11/16/2023 3:30 PM EDT Pulse 82 11/16/2023 2:50 PM EDT Temperature 36 ??C (96.8 ??F) 11/16/2023 3:00 PM EDT Respiratory Rate 18 11/16/2023 3:30 PM EDT Oxygen Saturation 90% 11/16/2023 3:30 PM EDT Inhaled Oxygen Concentration - - Weight - - Height - - Body Mass Index - - documented in this encounter Discharge Instructions * Discharge Instructions* Ramirez Vega RN - 11/16/2023 2:47 PM EDT INTERVENTIONAL RADIOLOGY DRAIN CARE INSTRUCTIONS How do I care for the drains at home? Pin your drain/s to your clothing by using a safety pin through the plastic loop on the top of the bulb. If the drain is not attached to your clothing, it may pull out from under your skin. Also, a drain usually feels more comfortable when it???s attached. To care for the drain at home, you will have to empty the drain, ???strip?? the drain tubing, and change the dressing if applicable. * See the following information on instructions on how to do this. You will go home with a dressing over the insertion site. Usually, Visiting Nurses are set up to show you how to change the dressing and care for the drain. They may teach a family member if they arewilling. The dressing needs to only be change once a week provided there is no leakage around the tube. What problems may I have with my drain? No drainage or sudden decrease in amount of drainage- This may be due to a plug in the drain. Please notify your doctor or nurse during business hours. If less than 25cc output/ day, flush 3-5 cc normal saline 2x/day. DO NOT ASPIRATE The tube accidentally falls out- If this happens, place a dry gauze dressing over the drain site and notify your doctor or nurse during business hours. Increased redness, swelling, or heat around the tube insertion site- This may be a sign of infection. Take your temperature: if it is higher than 101F or 38.8C, call your doctor or nurse immediately.Otherwise, notify your doctor or nurse during business hours and keep the dressing clean and dry. How to Empty Your Drain and flush drain Note: Wash your hands thoroughly before emptying your drain(s). Unpin the drain from your clothing. 1. Turn the white stopcock so it is not parallel (in line) with the tubing. 2. Unscrew the tubing with the bag attached from stopcock. Make sure you keep everything clean. 3. Attach the syringe with sterile saline to the stopcock. 4. Re-attach the tubing with the bag to the stopcock. 5. Invert the bag and pull open the plug. 6. Have the plastic measuring cup from the hospital ready to collect and measure the drainage. Please measure the output at the same time every 24 hours and record the amount. 7. Turn the drain upside down and squeeze the contents of the bulb into the measuring cup. Be sure to empty the bag as completely as possible. Empty contents of the bag into the toilet. 8. Use the drain output log chart to record the amount of drainage twice a day or any time the bag is full. Record the total for 24 hours for each drain you have. 9. If you have more than one drain, remember to record the drainage from each drain separately. 10. To prevent infection, do not let the stopper or top of the bottle touch the measuring cup or any other surface. Always put a registered nurse cardiovascular icu on the end to keep clean. 11. If you drainage bags starts to have an odor, you can clean the bag after removing it from the tube. Turn the stopcock to off. Put on a registered nurse cardiovascular icu to the end of the stopcock to keep clean. To clean the bag, fill it with 2 parts vinegar to 3 parts water, and let it stand for 20 minutes. Then empty it out, and let it air dry. Reattach to drain and open the stopcock. When to call the Interventional Radiology Department: Please call with any questions or concerns. If it is during regular office hours, please call [phone]. If it is after regular office hours, or on weekends or holidays, please call [phone] and ask to speak to the Superintendent Refuse Disposal contract clerk for Interventional Radiology. XX You have received medication during your procedure to help lessen anxiety and keep you comfortable. These medications affect judgement and reaction time. We recommend that you do not drive, operate equipment, sign any important documents, or smoke unattended for 24 hours following your procedure. Because of the sedation, be careful on stairs, as you may be unsteady on your feet. You may resume your regular diet as tolerated. IV site -- slight redness, or tenderness is normal, you can use a warm compress. If tenderness and redness increases or foul drainage occurs, please contact your M. D. Revised 04/05/19 Drainage Record NAME: Date of Surgery: Date: Time: If more than one drain, which one: Drainage Amount (per drain) Total Amount (per drain; in 24 hours) documented in this encounter Progress Notes * Ramirez Vega RN - 11/15/2023 11:40 AM EDT [facility] N[facility] DATABASE Name: Nilam Dyer Date of : 1950 AGE: 73 y.o. Address: No address on file. Phone: There are no phone numbers on file. Mobile: No relevant phone numbers on file. Referring Provider: Merissa Oakes REASON FOR VISIT: Order Questions Answers Where will study be performed? [facility] Radiology [120] To be scheduled Next available after expected date Reason for exam and clinical history: Suspected acute cholecystitis, down/back procedure from [facility] Is the patient on anticoagulant / antiplatelet therapy ? No Planned procedure: Percutaneous cholecystostomy catheter placement Labs to be performed day of procedure: No labs Sedation: Moderate (Conscious sedation) Prophylactic antibiotic : None Contrast: Omnipaque Additional medications for procedure: Lidocaine Position: Supine Consent: Pending Medications to discontinue (and days held): None Case Urgency:: F- Elective OUT-patient intervention within 3 days Not on File Pertinent PMH: There is no problem list on file for this patient. Date/Procedure Meds Given/Comments 11/16/23 Choley tube placement IV Fentanyl 100mcg, IV Versed 1.5 mg, IV Zosyn 3.375 g 1400 to procedure room 2 via stretcher. Onto table supine. All monitors, O2, safety strap in place.Meds per protocol. Laboratory Results: documented in this encounter H&P Notes * Sahil Silva PA - 11/16/2023 1:03 PM EDT Interventional Radiology Interval H&P: Procedure: Drainage of gallbladder Update to H&P: The patient's history and physical exam have been reviewed and completed. There has been NO interval change from that of the pre-procedural note done within the last 30 days. Thereis NO change in the procedural plan. Meds: Current medications reviewed. No medications held. Labs: No new relevant labs. Physical Exam: General: Awake, alert, oriented Cardiovascular: Regular, Normal Pulmonary: Breath sounds clear to auscultation Abdomen: Nontender, nondistended The planned procedure (and sedation plan if appropriate), its benefits and risks, and alternatives were discussed with the patient. The patient consented to the procedure. The indications for the procedure are still present. Pre-sedation Assessment: Sedation Plan: moderate (conscious sedation) ASA: 2: Patient with mild systemic disease Mallampati: II: tonsillar pillars are blocked by the tongue Confirm NPO status: Yes History of anesthetic complications: No Current medications reviewed: Yes Allergies reviewed: Yes Source Note - Merissa Oakes PA - 11/15/2023 9:34 AM EDT Images from the original note were not included. Interventional Radiology Focused Pre-procedure H&P: PCP: No primary care provider on file. Referring Provider: No ref. provider found Planned procedure: Percutaneous cholecystostomy catheter placement Procedure indication: Suspected acute cholecystitis, rising leukocytosis, gallstone pancreatitis IR workflow: Interventional Radiology Service contacted by Dr. Alexandro Smith at [facility] at 09:10 11/14 regarding the procedure request below. There are no answered order specific questions. History of Present Illness: Per chart review, Nilam Dyer is a 73 y.o. female currently admitted[facility] for gallstone pancreatitis with rising leukocytosis, positive Forrest's sign, CT showing enlarged gallbladder and HIDA showing non- filling who presents to Interventional Radiology to undergo cholecystostomy catheter placement. Hemodynamically stable: Yes Able to consent: Yes Anticoagulated: No NPO at midnight: Yes Remainder of patient's medical and surgical history, allergies, medications, and social/family history obtained below as previously outlined in patient's medical record. IR History: No prior procedures. Imagin11/14/23 Assessment: 73 y.o. female with suspected acute cholecystitis presenting to Interventional Radiology for cholecystostomy drain. Plan Planned procedure: Percutaneous cholecystostomy catheter placement Labs to be performed day of procedure: No labs Sedation: Moderate (Conscious sedation) Prophylactic antibiotic : None Contrast: Omnipaque Additional medications for procedure: Lidocaine Position: Supine Consent: Pending Medications to discontinue (and days held): None Cytopathology presence needed: No Case Urgency:: F- Elective OUT-patient intervention within 3 days Labs: Allergies: Patient has no allergy information on record. Medications: No current outpatient medications on file prior to visit. No current facility-administered medications on file prior to visit. Past Medical/Surgical history: There is no problem list on file for this patient. No past medical history on file. No past surgical history on file. Social History and Habits: Significant Family History: No family history on file. Pertinent ROS: as per HPI Physical Exam: Pending (to be performed in IR the day of procedure) ASA: Pending (to be assessed in IR the day of procedure) Mallampati class: Pending (to be assessed in IR the day of procedure) 11/15/2023 Merissa Oakes PA-C documented in this encounter Plan of Treatment Upcoming Encounters Date Type Department Care Team (Late st Contact Info) Description 04/30/2024 10:40 AM EST Office Visit Dermatology at [address] [place] [address] documented as of this encounter Procedures Procedure Name Priority Date/Time Associated Diagnosis Comments POCT GLUCOSE Routine 11/16/2023 3:18 PM EDT IR CHOLECYSTOSTOMY TUBE PLACEMENT Routine 11/16/2023 2:57 PM EDT Acute cholecystitis ANAEROBIC CULTURE Routine 11/16/2023 2:3 5 PM EDT HC BODY FLUID CULTURE Routine 11/16/2023 2:35 PM EDT BODY FLUID CULTURE, AEROBIC Routine 11/16/2023 2:35 PM EDT POCT GLUCOSE Routine 11/16/2023 1:35 PM EDT documented in this encounter Results * POCT Glucose (11/16/2023 3:18 PM EDT) Glucose, POC 94 65 - 199 mg/dL [facility] Comment: Supplemental ranges: <140 mg/dL before meals <180 mg/dL all other times of the day Blood 11/16/2023 3:18 PM EDT 11/16/2023 3:18 PM EDT Efraín Teran DO POINT OF CARE TEST O RDERABLES [facility] [place] [address] * IR Cholecystostomy Tube Placement (11/16/2023 2:57 [...] the tract was dilated and a 10 Korean Fr locking pigtail drain was advanced into [...] discharge to return via hospital transfer to [facility], when meets criteria Resident/Fellow: Alvin Harris MD Attending: Dr. Mendiola I, Dr. Mendiola, was present throughout the procedure. I was present during the intraservice time as documented by the IR Nurse. ?? Efraín Teran DO IMG IR ORDERABLES * Anaerobic Culture (11/16/2023 2:35 PM EDT) Anaerobic Culture No anaerobic organisms isolated [facility] Bile 11/16/2023 2:35 PM EDT 11/16/2023 3:54 PM EDT Comment:Cholecystomy Narrative Resulting Agency Comment Spec In Lab Jose Mendiola MD MICROBIOLOGY - GENER AL ORDERABLES [facility] [place] [address] * (ABNORMAL) Body Fluid Culture, Aerobic (11/16/2023 2:35 PM EDT) Body Fluid Culture Many Escherichia coli(A) [facility] Gram Stain Few Neutrophils seen Moderate Gram Negative Rods (A) [facility] Organism Escherichia coli(A) [facility] Bile 11/16/2023 2:35 PM EDT [...] Mendiola MD MICROBIOLOGY - GENER AL ORDERABLES Performing Organization Address City/[facility]/ZIP Co de Phone Number [facility] [place] [address] * POCT Glucose (11/16/2023 1:35 PM EDT) Glucose, POC 84 65 - 199 mg/dL [facility] Comment: Supplemental ranges: <140 mg/dL before meals <180 mg/dL all other times of the day Blood 11/16/2023 1:35 PM EDT 11/16/2023 1:35 PM EDT Efraín Teran DO POINT OF CARE TEST O RDERABLES Performing Organization Address [facility] Co de Phone Number [facility] [place] [address] documented in this encounter Visit Diagnoses Diagnosis Acute cholecystitis documented in this encounter Administered Medications Inactive Administered Medications - up to 3 most recent administrations Medication Order MAR Action Action Date Dose Rate Site fentaNYL (pf) (50 mcg/mL) multi-dose injection 25-50 mcg 25-50 mcg, Intravenous, EVERY 3 MIN PRN, Starting on Tue11/16/23 at 1257, Until Tue11/16/23 at 1542, Pain, per unit protocol, For use in Interventional Radiology (IR) only for procedural sedation with direct provider supervision and verbal order. - Start dose: 50 mcg (reduce dose to 25 mcg if history of sedation sensitivity). - Titration dose: 25-50 mcg IV, (based on patient response) every 3 minutes PRN to maintain procedural pain less than 2 per Pain Scale. Maximum dose: 50 mcg/dose, 250 mcg/hour, Angio/IR (Day of Procedure), Routine Given 11/16/2023 2:39 PM EDT 25 mcg Given 11/16/2023 2:17 PM EDT 50 mcg Given 11/16/2023 2:14 PM EDT 25 mcg iohexoL (Omnipaque) (350 mg/mL) solution 1-400 mL 1-400 mL, Other, ONCE, 1 dose, On Tue11/16/23 at 1315, For intra-procedural use by proceduralist., Angio/IR (Day of Procedure), Routine Given 11/16/2023 1:15 PM EDT 33 mLs lidocaine (Xylocaine) 1% (10 mg/mL) injection 10 mg 10 mg, Subcutaneous, ONCE, 1 dose, On Tue11/16/23 at 1315, For use in Interventional Radiology (IR) only for procedure with direct provider supervision and verbal order., Angio/IR (Day of Procedure), Routine Given 11/16/2023 2:27 PM EDT 10 mg midazolam (pf) (Versed) (1 mg/mL) multi-dose injection 0.5-1 mg 0.5-1 mg, Intravenous, EVERY 3 MIN PRN, Starting on Tue11/16/23 at 1257, Until Tue11/16/23 at 1542, Sedation, For use in Interventional Radiology (IR) only for procedural sedation with direct provider supervision and verbal order. - Start dose: 1 mg (Reduce dose to 0.5 mg if history of sedation sensitivity). - Titration dose: 0.5 mg - 1 mg (based on patient response) every 3 minutes PRN to obtain RASS score of -3. Maximum dose: 1 mg/dose, 5 mg/hour., Angio/IR (Day of Procedure), Routine Given 11/16/2023 2:17 PM EDT 1 mg Given 11/16/2023 2:14 PM EDT 0.5 mg piperacillin-tazobactam (Zosyn) 3.375 g vial attach to sodium chloride 0.9% 50 mL Mini-Bag Plus 3.375 g, Intravenous, ONCE, 1 dose, On Tue11/16/23 at 1315, Administer over 30 Minutes, Warning Vesicant/Irritant Medication Do not administer or Y-site with lactated ringers., Angio/IR (Day of Procedure), Indication for (Active or Suspected): Prophylaxis New Bag 11/16/2023 2:00 PM EDT 3.375 g 100 mL/ hr documented in this encounter
--- OUTSIDE RECORDS SUMMARY | 2024-01-30 19:04 | XMS_ITS | Encounter Summary ---
Author Organization [facility] Address [facility] [place] [address] Care Team Providers Care Rayon Coner Name Role Phone Unavailable Primary Care Provider Unavailabl e Encounter Details Date Type Department Care Team (Late st Contact Info) Description 12/06/2023 [place] [id number] Jose Mendiola MD [facility] [place] [address] Social History Tobacco Use Types Packs/Day Years Used Date Smoking Tobacco: Never Assessed Sex and Gender Information Value Date Recorded Sex Assigned at Not on file Gender Identity Not on file Sexual Orientation Not on file documented as of this encounter Progress Notes * Jose Mendiola MD - 12/06/2023 8:56 AM EDT Images from the original note were not included. FOCUSED H&P and PRE-PROCEDURE IR NOTE: Referring Physician: Alexandro Smith Planned Procedure: cholecystostomy drain check Procedure Indication: 6 wk fu Presenting Diagnosis/ Complaint: Nilam Dyer is a 73 y.o. female with cholecystostomy tube placed 11/16/23 for gallstone pancreatitis with rising leukocytosis, positive Forrest's sign, CT showing enlarged gallbladder and HIDA showing non-filling GB. Treated with pip/tazo. Past Medical/Surgical History: History reviewed. No pertinent past medical history. Past Surgical History: Procedure Laterality Date IR CHOLECYSTOSTOMY TUBE PLACEMENT 11/16/2023 IR Cholecystostomy Tube Placement 11/16/2023 [facility] INTERVENTIONL RAD Medications: Benzonatate 200 mg q 8 hr prn Atorvastatin 40 mg daily Trazodone 50 mg daily Colase 100 mg oral Ferrous sulfate 325 mg Acetaminophen 1000 mg three times a day Insulin 25 U q am Insulin glargine (lantus ) 25 U bedtime KCl 20 mEq daily Metformin 500 mg twice daily Pantoprazole 40 mg daily Linezolid 600 mg twice daily Mg oxide 400 mg daily Furosemide 40 mg twice daily Allergies: Patient has no allergy information on record. Social History and Habits: Social History Socioeconomic History Marital status: Not on file Spouse name: Not on file Number of children: Not on file Years of education: Not on file Highest education level: Not on file Occupational History Not on file Tobacco Use Smoking status: Not on file Smokeless tobacco: Not on file Substance and Sexual Activity Alcohol use: Not on file Drug use: Not on file Sexual activity: Not on file Other Topics Concern Not on file Social History Narrative Not on file Social Determinants of Health Financial Resource Strain: Not on file Food Insecurity: Not on file Transportation Needs: Not on file Physical Activity: Not on file Intimate Partner Violence: Not on file Housing Stability: Not on file Significant Family History: History reviewed. No pertinent family history. Physical Exam: Pending Labs: Pending Prior Imaging: CT 11/29/23: Assessment: 73 y.o. female with cholecystostomy tube placed 11/16/23 for gallstone pancreatitis Plan: tube check Labs: [per IR/CT protocol] Prophylactic antibiotic: [none] Medications to discontinue (and when): [none] Patient Position: [supine] Access site: epigastrium (existing drain) Sedation Plan : Analgesia only Discharge Plan: home documented in this encounter Plan of Treatment Upcoming Encounters Date Type Department Care Team (Late st Contact Info) Description 04/30/2024 10:40 AM EST Office Visit Dermatology at [facility] [address] [place] [address] documented as of this encounter Visit Diagnoses Not on filedocumented in this encounter
--- OUTSIDE RECORDS SUMMARY | 2024-01-30 19:04 | XMS_ITS | Encounter Summary ---
Author Organization [facility] Address [facility] [place] [address] Care Team Providers Care Airplane Pilot Commercial Name Role Phone Unavailable Primary Care Provider Unavailabl e Encounter Details Date Type Department Care Team (Late st Contact Info) Description 11/11/2023 Ancillary Procedure Radiology Library [place] [address] Morgan Beauchamp MD [facility] [address] DIAGNOSTIC [place] [address] Social History Tobacco Use Types Packs/Day Years [...] 10:40 AM EST Office Visit Dermatology at [facility] [address] [place] [address] documented as of this encounter Procedures Procedure Name Priority Date/Time Associated Diagnosis Comments FILM LIBRARY STORAGE ONLY NUCLEAR MEDICINE Routine 11/11/2023 12:00 AM EDT documented in this encounter Results * Film Library- Storage Only nuclear medicine (11/11/2023 12:00 AM EDT) Narrative [facility] - 11/15/2023 9:11 AM EDT This exam is auto-finalizing. It's purpose is for storage only. Morgan Beauchamp MD G FILM LIBRARY ORD ERABLES LIZET Vickers documented in this encounter Visit Diagnoses Not on filedocumented in this encounter
--- OUTSIDE RECORDS SUMMARY | 2024-01-30 19:04 | XMS_ITS | Encounter Summary ---
Author Organization [facility] Address [facility] [place] [address] Care Team Providers Care Outcomes Manager Name Role Phone Unavailable Primary Care Provider Unavailabl e Encounter Details Date Type Department Care Team (Latest Contact Info) Description 11/16/2023 Travel Social History Tobacco Use Types Packs/Day Years [...] 10:40 AM EST Office Visit Dermatology at [facility] [address] [place] [address] documented as of this encounter Visit Diagnoses Not on filedocumented in this encounter
--- OUTSIDE RECORDS SUMMARY | 2024-01-30 19:04 | XMS_ITS | Encounter Summary ---
Author Organization [facility] Address [facility] [place] [address] Care Team Providers Care Educational Institution Curator Name Role Phone Unavailable Primary Care Provider Unavailabl e Encounter Details Date Type Department Care Team (Late st Contact Info) Description 11/14/2023 Ancillary Procedure Radiology Library at [facility] [place] [address] Morgan Beauchamp MD [facility] [place] [address] Social History Tobacco Use Types Packs/Day Years [...] 10:40 AM EST Office Visit Dermatology at [facility] [address] [place] [address] documented as of this encounter Procedures Procedure Name Priority Date/Time Associated Diagnosis Comments FILM LIBRARY STORAGE ONLY CT ABDOMEN Routine 11/14/2023 12:00 AM EDT documented in this encounter Results * Film Library- Storage Only CT Abdomen (11/14/2023 12:00 AM EDT) Narrative [facility] - 11/15/2023 9:10 AM EDT This exam is auto-finalizing. It's purpose is for storage only. Morgan Beauchamp MD IMG FILM LIBRARY ORD ERABLES LIZET Vickers documented in this encounter Visit Diagnoses Not on filedocumented in this encounter
--- OUTSIDE RECORDS SUMMARY | 2024-01-30 19:04 | XMS_ITS | Encounter Summary ---
[facility] [place] [address] Care Team Providers Care Manager Chinese Name Role Phone Unavailable Primary Care Provider Unavailabl e Reason for Referral * Diagnostic Test (Routine) - Pending Review Specialty Diagnoses / Procedures Referred By Silvana taylor Referred To Contact Radiology Diagnoses Acute cholecystitis Procedures IR Cholecystostomy Tube Placement Merissa Oakes PA [facility] [place] [address] [place] [address] Referral ID Status Reason Start Date Expiration Date Visits Requested Visits Authorized [id number] Pending Review Specialty Service Requested 11/15/2023 05/17/2025 1 1 Encounter Details Date Type Department Care Team (Late st Contact Info) Description 11/15/2023 Orders [place] [address] Merissa Oakes PA [facility] [place] [address] Acute cholecystitis Social History Tobacco Use Types Packs/Day Years Used Date Smoking Tobacco: Never Assessed Sex and Gender Information Value Date Recorded Sex Assigned at Not on file Gender Identity Not on file Sexual Orientation Not on file documented as of this encounter H&P Notes * Merissa Oakes PA - 11/15/2023 9:34 AM EDT Images from the original note were not included. Interventional Radiology Focused Pre-procedure H&P: PCP: No primary care provider on file. Referring Provider: No ref. provider found Planned procedure: Percutaneous cholecystostomy catheter placement Procedure indication: Suspected acute cholecystitis, rising leukocytosis, gallstone pancreatitis IR workflow: Interventional Radiology Service contacted by Dr. Alexandro Smith at [facility] at 09:10 11/14 regarding the procedure request below. There are no answered order specific questions. History of Present Illness: Per chart review, Nilam Dyer is a 73 y.o. female currently admittedto [facility] for gallstone pancreatitis with rising leukocytosis, positive [...] 10:40 AM EST Office Visit Dermatology at [facility] [address] [place] [address] documented as of this encounter Results * IR Cholecystostomy Tube Placement (11/16/2023 2:57 [...] the tract was dilated and a 10 Micronesian Fr locking pigtail drain was advanced into [...] discharge to return via hospital transfer to [facility], when meets criteria Resident/Fellow: Alvin Harris MD Attending: Dr. Mendiola I, Dr. Mendiola, was present throughout the procedure. I was present during the intraservice time as documented by the IR Nurse. ?? Efraín Teran DO IMG IR ORDERABLES documented in this encounter Visit Diagnoses Diagnosis Acute cholecystitis Acute cholecystitis documented in this encounter
--- OUTSIDE RECORDS SUMMARY | 2024-01-30 19:04 | XMS_ITS | Encounter Summary ---
Author Organization [facility] Address [facility] [place] [address] Care Team Providers Care Surgical Oncologist Name Role Phone Unavailable Primary Care Provider Unavailabl e Encounter Details Date Type Department Care Team (Late st Contact Info) Description 11/29/2023 2:20 AM EDT Ancillary Procedure Radiology Library at [facility] [place] [address] Efraín Deras MD [facility] [place] [address] Social History Tobacco Use Types Packs/Day Years [...] 10:40 AM EST Office Visit Dermatology at [facility] [address] [place] [address] documented as of this encounter Procedures Procedure Name Priority Date/Time Associated Diagnosis Comments FILM LIBRARY STORAGE ONLY CT CHEST ABDOMEN PELVIS Routine 11/29/2023 2:17 AM EDT documented in this encounter Results * Film Library- Storage Only CT Chest Abdomen Pelvis (11/29/2023 2:17 AM EDT) Narrative [facility] - 11/29/2023 2:17 AM EDT This exam is auto-finalizing. It's purpose is for storage only. Efraín Deras MD IMG FILM LIBRARY ORD ERABLES [place], [place] documented in this encounter Visit Diagnoses Not on filedocumented in this encounter
[2024-01-30 20:18] LABS: ALT 26 U/L (14-59); AST 11 U/L (15-37); Albumin 3.5 g/dL (3.4-5.0); Alkaline Phosphatase 68 U/L (46-116); Anion Gap 5.7 mmol/L (3-11); BUN 30 mg/dL (7-18); Bilirubin, Total 0.27 mg/dL (0.2-1.0); CO2 32.3 mmol/L (21.0-32.0); CREATININE 1.1 mg/dL (0.55-1.02); Calcium 9.9 mg/dL (8.5-10.1); Chloride 98 mmol/L (98-107); Estimated GFR 52.73 (mL/min/1.73m2); Glucose 279 mg/dL (74-106); Potassium 4.6 mmol/L (3.5-5.1); Sodium 136 mmol/L (136-145); Total Protein 7.7 g/dL (6.4-8.2)
== END 2024-01-30 19:03 | disposition home or self-care (01) ==
LOC: LBN 19:02
PROVIDERS: PCP Nurse Practitioner Gerontology; Visit Provider Nurse Practitioner Gerontology
DX: E87.1 Hypo-osmolality and hyponatremia
CPT/HCPCS: 80053

== ENCOUNTER 2024-02-14 21:41 | Outpatient (REF) | payer MEDICARE, MEDICAID, SELFPAY ==
--- OUTSIDE RECORDS SUMMARY | 2024-02-14 21:42 | XMS_ITS | Referral Summary ---
Author Organization [facility] Address [address] [place] [address] Care Team Providers Care House Worker Name Role Phone Unknown, Provider Primary Care Provider Encounters Date Type Department Care Team Description 11/30/2023 Lab Requisition [facility] Pathology & Laboratory Medicine - [address] [address] Kirit Tejeda Pressure ulcer of right heel, [...] explore management options, if applicable. 12/05/2023 11:34 [facility] Final Diagnosis A. 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 - Acute serositis and adhesions. - Cholelithiasis. - Benign reactive lymph node. 12/05/2023 11:34 [facility] Attestation There was significan t resident/fellow involvement in the diagnostic evaluation of this case. By the signature below, the attending physician certifies that they have personally conducted a gross and/or microscopic examination of the described specimens and rendered or confirmed the above diagnosis. 12/05/2023 11:34 [facility] at 1134 Clinical History Cholecystitis, S/P cholecystostomy tube insertion 11/16/2023, developed sepsis with WBC 31,000, now open robert 12/05/2023 11:34 [facility] Gross Description A. [...] received are several brown-black smooth multifaceted calculi. Photographic Plate Maker sections are submitted as follows: BLOCK MARIA A1- cystic duct margin, en face and bisected possible periductal lymph node A2-A6- marketing representative sections gallbladder wall A7- section separately submitted necrotic saccular tissue A8- marketing representative sections separately submitted tissue fragments MELO HILLIARD(ASCP) 11/30/2023 10:55 12/05/2023 11:34 EDT [facility] Resident/Fell ow: Jefry Montez DO 12/05/2023 11:34 EDT [facility] Performing Lab [facility] 12/05/2023 11:34 EDT [facility] Scanned Images 12/05/2023 11:34 EDT [facility] Tissue GALLBLADDER STRUCTURE / Unknown 11/29/2023 14:25 EDT 11/30/2023 8:14 EDT Kirit Tejeda PATHOLOGY ORDERABLES [facility] [address] [place], [place] [address] from Last 3 Months Care Teams House Worker Relationship Specialty Start Date End Date Unknown, Provider, PCP - General 11/19/23
--- OUTSIDE RECORDS SUMMARY | 2024-02-14 21:42 | XMS_ITS | Clinical Summary ---
Author Organization [facility] Address [facility] [place] [address] Care Team Providers Care Dry Finisher Name Role Phone Unavailable Primary Care Provider Unavailabl e Medications Medication Sig Dispensed Refills Start Date End Date Status secukinumab 300 mg/2 mL (150 mg/mL) Pen Injector Inject 300 mg subcutaneously every 28 days. Maintenance dose 6 mL 02/14/2024 Active secukinumab 300 mg/2 mL (150 mg/mL) Pen Injector Loading dose: Inject secukinumab 300mg weekly at weeks 0, 1, 2, 3, and 4. 10 mL 02/14/2024 Active nystatin (Mycostatin) Cream Apply topically 2 times daily. start nystatin 2% cream twice daily while active. Mix with hydrocortisone 2.5% cream for 1 week only, then stop hydrocortisone 2.5% cream and only continue nystatin cream if still active. 30 g 02/14/2024 Active hydrocortisone 2.5 % Ointment Apply topically 2 times daily. start nystatin 2% cream twice daily while active. Mix with hydrocortisone 2.5% cream for 1 week only, then stop hydrocortisone 2.5% cream and only continue nystatin cream if still active. 30 g 02/14/2024 Active Encounters Date Type Department Care Team Description 02/14/2024 11:00 AM EDT Office Visit Dermatology at [address] [place] [phone] Rama Justice MD Hidradenitis suppurativa; Intertrigo 12/06/2023 Notes [place] [address] Jose Mendiola MD 11/29/2023 2:20 AM EDT Ancillary Procedure [place] [phone] Efraín Deras MD 11/16/2023 12:36 PM EDT - 11/16/2023 11:59 PM EDT Hospital [place] [address] Efraín Teran DO Acute cholecystitis Discharge Disposition: Home 11/16/2023 Travel 11/15/2023 [place] [address] Mersisa Oakes PA Acute cholecystitis 11/14/2023 Ancillary Procedure [place] [phone] Morgan Beauchamp MD from Last 3 Months Social [...] Mass Index - - Plan of Treatment Health Maintenance Due Date [...] of 1 - PCV) 2014 Covid-19 Vaccine ( - 2022-24 season) 2023 Influenza (Flu) vaccine [...] CT ABDOMEN Routine 11/14/2023 12:00 AM EDT from Last 3 Months Results * Film Library- Storage Only CT Chest Abdomen Pelvis (11/29/2023 2:17 AM EDT) Narrative [place] - 11/29/2023 2:17 AM EDT This exam is auto-finalizing. It's purpose is for storage only. Efraín Deras MD IMG FILM LIBRARY ORD ERABLES [place], [place] * POCT Glucose (11/16/2023 3:18 PM EDT) Only the most recent of2 resultswithin the time period is included. Glucose, POC 94 65 - 199 mg/dL [facility] Comment: Supplemental ranges: <140 mg/dL before meals <180 mg/dL all other times of the day Blood 11/16/2023 3:18 PM EDT 11/16/2023 3:18 PM EDT Efraín Teran DO POINT OF CARE TEST O RDERABLES [facility] [place] [address] * IR Cholecystostomy Tube Placement (11/16/2023 2:57 [...] the tract was dilated and a 10 Uzbek Fr locking pigtail drain was advanced into [...] to return via hospital transfer to [facility], when meets criteria Resident/Fellow: Alvin Harris MD Attending: Dr. Mendiola I, Dr. Mendiola, was present throughout the procedure. I was present during the intraservice time as documented by the IR Nurse. ?? Efraín Teran DO IMG IR ORDERABLES * Anaerobic Culture (11/16/2023 2:35 PM EDT) Anaerobic Culture No anaerobic organisms isolated [facility] [place] 11/16/2023 2:35 PM EDT 11/16/2023 3:54 PM EDT Comment:Cholecystomy Narrative Resulting Agency Comment Spec In Lab Jose Mendiola MD MICROBIOLOGY - GENER AL ORDERABLES [facility] [place] [place] [address] * (ABNORMAL) Body Fluid Culture, Aerobic (11/16/2023 2:35 PM EDT) Body Fluid Culture Many Escherichia coli(A) [facility] Gram Stain Few Neutrophils seen Moderate Gram Negative Rods (A) [facility] Organism Escherichia coli(A) [facility] [place] 11/16/2023 2:35 PM EDT [...] - GENER AL ORDERABLES Performing Organization Address [facility] de Phone Number [facility] [place] [address] * Film Library- Storage Only CT Abdomen (11/14/2023 12:00 AM EDT) Narrative [facility] - 11/15/2023 9:10 AM EDT This exam is auto-finalizing. It's purpose is for storage only. Morgan Beauchamp MD IMG FILM LIBRARY ORD ERABLES Performing Organization Address [facility] de Phone Number [place], [place] from Last 3 Months Advance Directives * Attempt Cardiopulmonary Resuscitation - Inpatient (Latest Code Status on File) Date Activated Date Inactivated Comments 11/16/2023 12:56 PM 11/17/2023 4:36 AM Question Answer Comments Code Status decision made by: Patient
--- OUTSIDE RECORDS SUMMARY | 2024-02-14 21:42 | XMS_ITS | Encounter Summary ---
[place] [address] Care Team Providers Care Senior Product Development Scientist Name Role Phone Unavailable Primary Care Provider [...] on file documented as of this encounter Visit Diagnoses Not on filedocumented in this encounter
--- OUTSIDE RECORDS SUMMARY | 2024-02-14 21:42 | XMS_ITS | Encounter Summary ---
Author Organization [facility] Address [facility] [place] [address] Care Team Providers Care Manager Financial Services Name Role Phone Unavailable Primary Care Provider Unavailabl e Encounter Details Date Type Department Care Team (Late st Contact Info) Description 02/14/2024 11:00 AM EDT Office Visit Dermatology at [facility] [address] [place] [address] Rama Justice MD [facility] [address] [facility] [place] [address] Hidradenitis suppurativa; Intertrigo Social History Tobacco Use Types Packs/Day Years Used Date Smoking Tobacco: Never Assessed Sex and Gender Information Value Date Recorded Sex Assigned at Not on file Gender Identity Not on file Sexual Orientation Not on file documented as of this encounter Patient Instructions * Patient Instructions* Sherry Rose LNA - 02/14/2024 11:00 AM EDT For rash under the breasts and thighs: - start nystatin 2% cream twice daily while active. Mix with hydrocortisone 2.5% cream for 1 week only, then stop hydrocortisone 2.5% cream and only continue nystatin cream if still active. For hidradenitis under the armpits: - recommend checking quantiferon gold and hepatitis panel (Hepatitis B and C) - recommend secukinumab 300mg weekly at weeks 0, 1, 2, 3, and 4, followed by 300mg every 4 weeks - recommend annual quantiferon gold - Follow up in 12 weeks - Discussed risks of superficial fungal infection, upper respiratory infection, reactivation of tuberculosis and hepatitis, injection site reactions, increased risk of infection, worsening/flare of inflammatory bowel disease. Patient denies history of IBD documented in this encounter Progress Notes * Sherry Rose LNA - 02/14/2024 11:00 AM EDT DEPARTMENT OF DERMATOLOGY Medical Dermatology Clinic Provider: Rama Justice MD Patient's preferred name Nilam Preferred contact method for results [x]Phone []myD-H []Letter Detailed phone message OK? yes Are there any other people with whom we may discuss your care? Past Medical History Date, location, treatment Melanoma no Dysplastic nevi no SCC no BCC no AKs no UV Exposure & Protection Family History Details Melanoma NMSC Other relevant family history Social History Occupation: Hobbies: Other: Pre-Procedure Screening Details Allergy to lidocaine, epinephrine, Dermabond, chlorhexidine, or adhesives no Bleeding disorder or blood thinners ? Pacemaker, defibrillator, deep brain stimulator, cochlear implant no History of Present Illness: Nilam Dyer is a 73 y.o. Patient is referred to the clinic at the request of Nadya Berumen for hidradenitis suppurativa: - rash under arms, been present for a long time, comes and goes, doesn't stay gone long before It comes back, thinks it has to do with the heat, painful and itchy, has been putting creams and powderson it and nothing has worked, unsure of names, bleeds sometimes Current HS Symptoms: Drainage (yes/no):bleed sometimes Frequency of new lesions (average number of new lesions per month): Pain 0-10: Itch 0-10: What bothers patient most about HS: painful Prior treatments tried for HS including topical antibiotics, topical retinoids, other topical, intralesional kenalog injections, incision and drainage, surgery, oral antibiotics (which ones), isotretinoin, acitretin, biologics, oral steroids, dapsone, cyclosporine, other sytemics List name of treatment, duration of treatment, any benefit (helpful or not) or any side effects: - - History of (yes/no): Diabetes (type 1 or 2?):no Crohn's disease or ulcerative colitis:no Squamous cell carcinoma:no Review of Systems: General: Feeling well. Skin: No other skin concerns. Medications: Reviewed in eD-H Allergies: Reviewed in eD-H Skin Examination: Focused skin examination of the bilateral axilla, inframammary, and groin was normal with the exception of the findings below. Assessment/Plan # Hidradenitis Suppurativa, Hubbard Stage 3-Firm, tender, flesh colored and erythematous papulonodules, abscesses, and cysts, often with extensive scars and sinus tracking under the surface of the skin in the axillae, groin, inframammary area - recommend checking quantiferon gold and hepatitis panel (Hepatitis B and C) - recommend secukinumab 300mg weekly at weeks 0, 1, 2, 3, and 4, followed by 300mg every 4 weeks - recommend annual quantiferon gold - Follow up in 12 weeks - Discussed risks with secukinumab of superficial fungal infection, upper respiratory infection, reactivation of tuberculosis and hepatitis, injection site reactions, increased risk of infection, worsening/flare of inflammatory bowel disease. Patient denies history of IBD - Per discussion with skilled nursing staff, nurse practioner on staff needs paper prescriptions priorto writing his/her own prescriptions. Provided paper prescriptions for the above medications. However recommend checking tuberculosis (quantiferon gold) and hepatitis panel prior to initiating secukinumab. Recommend flu/covid booster annually due to increased risk of infection. 45 minutes were spent on this visit including counseling patient, chart review, coordination with facility. HS PGA-score (score from 0-5) 0. Clear: No inflammatory or noninflammatory nodules 1. Minimal: Only the presence of noninflammatory nodules 2. Mild: Fewer than five inflammatory nodules OR one abscess or draining fistula and no inflammatory nodules 3. Moderate: Five or more inflammatory nodules OR one abscess or draining fistula and one or more inflammatory nodules OR 2-5 abscesses or draining fistulas and fewer than 10 inflammatory nodules 4. Severe: Two to five abscesses or draining fistulas and 10 or more inflammatory nodules 5. Very severe: More than five abscesses or draining fistulas #. Intertrigo - Erythematous, slightly scaly plaques with slight maceration on the inframammary andinguinal fold. - Explained that condition is a result of repeated rubbing of skin folds in the setting of moisture. - Recommend clinical strength deodorant (Dove, Secret, or other brand containing 20% aluminum chloride) to affected area(s) nightly. - start nystatin 2% cream twice daily while active. Mix with hydrocortisone 2.5% cream for 1 week only, then stop hydrocortisone 2.5% cream and only continue nystatin cream if still active. - Per discussion with skilled nursing staff, nurse practioner on staff needs paper prescriptions priorto writing his/her own prescriptions. Provided paper prescriptions for the above medications. Other: N/A RTC: 3 month HS follow up [x]Note routed to bottom cementer []Recall placed in scheduling system []Appointment scheduled at checkout Scribe attestation: DERRICK White has performed the documentation for this encounter in the presence of and acting as a scribe for Rama Justice MD. I performed the above scribed service and agree with the accuracy of the documentation in this encounter. Reviewed and signed by: Rama Justice MD Dermatology Counts Include 234 Beds At [facility] documented in this encounter Plan of Treatment Not on file documented as of this encounter Visit Diagnoses Diagnosis Hidradenitis suppurativa Hidradenitis Intertrigo Other specified erythematous condition documented in this encounter
--- OUTSIDE RECORDS SUMMARY | 2024-02-14 21:42 | XMS_ITS | Encounter Summary ---
Author Organization [facility] Address [address] [place] [address] Care Team Providers Care Cytopathologist Name Role Phone Unknown, Provider Primary Care Provider Encounter Details Date Type Department Care Team (Late st Contact Info) Description 10/17/2023 Lab Requisition [facility] Pathology & Laboratory Medicine - [address] [phone] Outr Resulting Lab, Provider Social History Tobacco [...] 150 - 1,150 mOsm/kg 10/17/2023 16:39 EDT [facility] Urine URINE / Unknown 10/16/2023 1 4:38 EDT 10/17/2023 16:27 EDT Provider Outr Resulting Lab URINALYSIS O RDERABLES [facility] [address] [place], [place] [address] documented in this encounter Visit Diagnoses Not on filedocumented in this encounter Care Teams Cytopathologist Relationship Specialty Start Date End Date Unknown, ProviderMD PCP - General 11/19/23 documented as of this encounter
--- OUTSIDE RECORDS SUMMARY | 2024-02-14 21:42 | XMS_ITS | Encounter Summary ---
Author Organization [facility] Address [address] [place] [address] Care Team Providers Care Hr Generalist Name Role Phone Unknown, Provider Primary Care Provider [phone] Encounter Details Date Type Department Care Team (Late st Contact Info) Description 11/30/2023 Lab Requisition [facility] Pathology & Laboratory Medicine - [address] [place] [address] Pressure ulcer of right heel, [...] explore management options, if applicable. 12/05/2023 11:34 [facility] Final Diagnosis A. 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 - Acute serositis and adhesions. - Cholelithiasis. - Benign reactive lymph node. 12/05/2023 11:34 [facility] Attestation There was significan t resident/fellow involvement in the diagnostic evaluation of this case. By the signature below, the attending physician certifies that they have personally conducted a gross and/or microscopic examination of the described specimens and rendered or confirmed the above diagnosis. 12/05/2023 11:34 [facility] at 1134 Clinical History Cholecystitis, S/P cholecystostomy tube insertion 11/16/2023, developed sepsis with WBC 31,000, now open robert 12/05/2023 11:34 [facility] Gross Description A. [...] received are several brown-black smooth multifaceted calculi. Burglar Alarm Assembler sections are submitted as follows: BLOCK MARIA A1- cystic duct margin, en face and bisected possible periductal lymph node A2-A6- provider relations representative sections gallbladder wall A7- section separately submitted necrotic saccular tissue A8- provider relations representative sections separately submitted tissue fragments MELO HILLIARD(ASCP) 11/30/2023 10:55 12/05/2023 11:[address] [facility] Resident/Fell ow: Jefry Montez DO 12/05/2023 11:[address] [facility] Performing Lab [facility] 12/05/2023 11:[address] [facility] Scanned Images 12/05/2023 11:[address] [facility] Tissue GALLBLADDER STRUCTURE / Unknown 11/29/2023 14:25 EDT 11/30/2023 8:14 EDT Kirit Tejeda PATHOLOGY ORDERABLES [facility] [address] [place] [address] documented in this encounter Visit Diagnoses Diagnosis Pressure ulcer of right heel, unstageable ([facility]) Hypothyroidism, unspecified Acute cystitis without hematuria Acute cystitis Chronic diastolic (congestive) heart failure ([facility]) Anemia in other chronic diseases classified elsewhere Type 2 diabetes mellitus with hyperglycemia ([facility]) Type II or unspecified type diabetes mellitus without mention of complication, not stated as uncontrolled Type 2 diabetes mellitus with diabetic polyneuropathy ([facility]) Type II or unspecified type diabetes mellitus with neurological manifestations, not stated as uncontrolled Pneumonia, unspecified organism Cholecystitis, unspecified documented in this encounter Care Teams Hr Generalist Relationship Specialty Start Date End Date Unknown, Provider, PCP - General 11/19/23 documented as of this encounter
--- OUTSIDE RECORDS SUMMARY | 2024-02-14 21:42 | XMS_ITS | Encounter Summary ---
Author Organization [facility] Address [address] [place] [address] Care Team Providers Care Entertainment & Media Correspondent Name Role Phone Unknown, Provider Primary Care Provider [phone] Encounter Details Date Type Department Care Team (Late st Contact Info) Description 09/05/2023 Lab Requisition [facility] Pathology & Laboratory Medicine - [address] [address] Outr Resulting Lab, Provider Social History Tobacco [...] 201 - 352 mg/dL 09/06/2023 9:56 EDT [facility] Blood VENOUS BLOOD / Unknown 09/05/2023 6:09 EDT 09/05/2023 16:50 EDT Provider Outr Resulting Lab CHEMISTRY & BLOOD GAS ORDERABLES [facility] [address] [place], [place] [address] documented in this encounter Visit Diagnoses Not on filedocumented in this encounter Care Teams Entertainment & Media Correspondent Relationship Specialty Start Date End Date Unknown, ProviderMD PCP - General 11/19/23 documented as of this encounter
--- OUTSIDE RECORDS SUMMARY | 2024-02-14 21:42 | XMS_ITS | Encounter Summary ---
Author Organization [facility] Address [facility] [place] [address] Care Team Providers Care Solution Advisor Name Role Phone Unavailable Primary Care Provider Unavailabl e Encounter Details Date Type Department Care Team (Late st Contact Info) Description 11/11/2023 12:05 AM EDT Ancillary Procedure Radiology Library at [facility] [place] [address] Morgan Beauchamp MD [facility] DR [place] [address] Social History Tobacco Use Types Packs/Day Years [...] CT Abdomen (11/11/2023 12:05 AM EDT) Narrative RAD - 11/15/2023 9:12 AM EDT This exam is auto-finalizing. It's purpose is for storage only. Morgan Beauchamp MD IMG FILM LIBRARY ORD ERABLES [place], [place] documented in this encounter Visit Diagnoses Not on filedocumented in this encounter
--- OUTSIDE RECORDS SUMMARY | 2024-02-14 21:42 | XMS_ITS | Encounter Summary ---
Author Organization [facility] Address [facility] [address] Care Team Providers Care Patent Clerk Name Role Phone Unavailable Primary Care Provider Unavailabl e Encounter Details Date Type Department Care Team (Late st Contact Info) Description 11/29/2023 2:20 AM EDT Ancillary Procedure Radiology Library at [facility] [place] [address] Efraín Deras MD [facility] [place] [address] Social History Tobacco Use Types Packs/Day Years [...] Deras MD IMG FILM LIBRARY ORD ERABLES [place], [place] documented in this encounter Visit Diagnoses Not on filedocumented in this encounter
--- OUTSIDE RECORDS SUMMARY | 2024-02-14 21:42 | XMS_ITS | Encounter Summary ---
Author Organization [facility] Address [facility] [place] [address] Care Team Providers Care Junior Administrative Assistant Name Role Phone Unavailable Primary Care Provider Unavailabl e Encounter Details Date Type Department Care Team (Late st Contact Info) Description 12/06/2023 [place] [id number] Jose Mendiola MD [facility] [place] [address] Social History Tobacco Use Types Packs/Day Years [...] PLACEMENT 11/16/2023 IR Cholecystostomy Tube Placement 11/16/2023 [facility] RAD Medications: Benzonatate 200 mg [...]
--- OUTSIDE RECORDS SUMMARY | 2024-02-14 21:42 | XMS_ITS | Encounter Summary ---
Author Organization [facility] Address [facility] [place] [address] Care Team Providers Care Buffing Turner And Counter Name Role Phone Unavailable Primary Care Provider Unavailabl e Encounter Details Date Type Department Care Team (Late st Contact Info) Description 11/11/2023 Ancillary Procedure Radiology Library at [facility] [place] [address] Morgan Beauchamp MD [facility] [place] [address] Social History Tobacco Use Types Packs/Day Years [...] nuclear medicine (11/11/2023 12:00 AM EDT) Narrative [facility] - 11/15/2023 9:11 AM EDT This exam is auto-finalizing. It's purpose is for storage only. Morgan Beauchamp MD IMG FILM LIBRARY ORD ERABLES [place], [place] documented in this encounter Visit Diagnoses Not on filedocumented in this encounter
--- OUTSIDE RECORDS SUMMARY | 2024-02-14 21:42 | XMS_ITS | Encounter Summary ---
Author Organization [facility] Address [address] [place] [address] Care Team Providers Care Gun Number Name Role Phone Unknown, Provider Primary Care Provider Encounter Details Date Type Department Care Team (Late st Contact Info) Description 10/17/2023 Lab Requisition [facility] Pathology & Laboratory Medicine - [facility] [address] [place], [place] [address] Outr Resulting Lab, Provider Social History Tobacco [...] 275 - 295 mOsm/kg 10/17/2023 16:57 EDT [facility] Blood VENOUS BLOOD / Unknown 10/16/2023 13:39 EDT 10/17/2023 16:27 EDT Provider Outr Resulting Lab CHEMISTRY & BLOOD GAS ORDERABLES [facility] [address] [place], [place] [address] documented in this encounter Visit Diagnoses Not on filedocumented in this encounter Care Teams Gun Number Relationship Specialty Start Date End Date Unknown, ProviderMD PCP - General 11/19/23 documented as of this encounter
--- OUTSIDE RECORDS SUMMARY | 2024-02-14 21:42 | XMS_ITS | Clinical Summary ---
Author Organization [facility] Address [address] [place] [address] Care Team Providers Care Welder Experimental Name Role Phone Unknown, Provider Primary Care Provider Encounters Date Type Department Care Team Description 11/30/2023 Lab Requisition [facility] Pathology & Laboratory Medicine - [address] [address] Kirit Tejeda Pressure ulcer of right heel, [...] explore management options, if applicable. 12/05/2023 11:34 [facility] Final Diagnosis A. 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 - Acute serositis and adhesions. - Cholelithiasis. - Benign reactive lymph node. 12/05/2023 11:34 [facility] Attestation There was significan t resident/fellow involvement in the diagnostic evaluation of this case. By the signature below, the attending physician certifies that they have personally conducted a gross and/or microscopic examination of the described specimens and rendered or confirmed the above diagnosis. 12/05/2023 11:34 [facility] at 1134 Clinical History Cholecystitis, S/P cholecystostomy tube insertion 11/16/2023, developed sepsis with WBC 31,000, now open robert 12/05/2023 11:34 [facility] Gross Description A. Received [...] received are several brown-black smooth multifaceted calculi. Word Processor Technician sections are submitted as follows: BLOCK MARIA A1- cystic duct margin, en face and bisected possible periductal lymph node A2-A6- billing customer service representative sections gallbladder wall A7- section separately submitted necrotic saccular tissue A8- billing customer service representative sections separately submitted tissue fragments MELO HILLIARD(ASCP) 11/30/2023 10:55 12/05/2023 11:[address] [facility] Resident/Fell ow: Jefry Montez DO 12/05/2023 11:[address] [facility] Performing Lab [facility] 12/05/2023 11:[address] [facility] Scanned Images 12/05/2023 11:[address] [facility] Tissue GALLBLADDER STRUCTURE / Unknown 11/29/2023 14:25 EDT 11/30/2023 8:14 EDT Kirit Tejeda PATHOLOGY ORDERABLES [facility] [address] [place] [address] from Last 3 Months Care Teams Welder Experimental Relationship Specialty Start Date End Date Unknown, Provider, PCP - General 11/19/23
--- OUTSIDE RECORDS SUMMARY | 2024-02-14 21:42 | XMS_ITS | Encounter Summary ---
Author Organization [facility] Address [facility] [place] [address] Care Team Providers Care Hedge Fund Manager Name Role Phone Unavailable Primary Care Provider Unavailabl e Encounter Details Date Type Department Care Team (Late st Contact Info) Description 11/14/2023 Ancillary Procedure Radiology Library at [facility] [place] [address] Morgan Beauchamp MD [facility] [place] [address] Social History Tobacco Use Types Packs/Day Years [...] CT Abdomen (11/14/2023 12:00 AM EDT) Narrative [facility] - 11/15/2023 9:10 AM EDT This exam is auto-finalizing. It's purpose is for storage only. Morgan Beauchamp MD IMG FILM LIBRARY ORD ERABLES [place], [place] documented in this encounter Visit Diagnoses Not on filedocumented in this encounter
--- OUTSIDE RECORDS SUMMARY | 2024-02-14 21:42 | XMS_ITS | Encounter Summary ---
Author Organization [facility] Address [facility] [place] [address] Care Team Providers Care Airport Location Manager Name Role Phone Unavailable Primary Care Provider Unavailabl e Reason for Referral * Diagnostic Test (Routine) - Pending Review Specialty Diagnoses / Procedures Referred By Silvana taylor Referred To Contact Radiology Diagnoses Acute cholecystitis Procedures IR Cholecystostomy Tube Placement Merissa Oakes PA [facility] [place] [place] [address] [facility] [place] [address] Referral ID Status Reason Start Date Expiration Date Visits Requested Visits Authorized [id number] Pending Review Specialty Service Requested 11/15/2023 05/17/2025 1 1 Reason for Visit * Diagnostic Test (Routine) - Pending Review Specialty Diagnoses / Procedures Referred By Silvana taylor Referred To Contact Radiology Diagnoses Acute cholecystitis Procedures IR Cholecystostomy Tube Placement Merissa Oakes PA [facility] [place] [address] [place] [address] Referral ID Status Reason Start Date Expiration Date Visits Requested Visits Authorized [id number] Pending Review Specialty Service Requested 11/15/2023 05/17/2025 1 1 Encounter Details Date Type Department Care Team (Latest Contact Info) Description 11/16/2023 12:36 PM EDT - 11/16/2023 11:59 PM EDT Hospital [place] [address] Efraín Teran, [facility] [place] [address] Acute cholecystitis Discharge Disposition: Home Social History [...] or any other surface. Always put a credit negotiator on the end to keep clean. 11. If you drainage bags starts to have an odor, you can clean the bag after removing it from the tube. Turn the stopcock to off. Put on a credit negotiator to the end of the stopcock to [...] is during regular office hours, please call [phone]. If it is after regular office hours, or on weekends or holidays, please call [phone] and ask to speak to the Earth Boring Machine Operator conduit bender for Interventional Radiology. XX You have received [...] Questions Answers Where will study be performed? [facility] Radiology [120] To be scheduled Next available after expected date Reason for exam and clinical history: Suspected acute cholecystitis, down/back procedure from [facility] Is the patient on anticoagulant / antiplatelet [...] Service contacted by Dr. Alexandro Smith at [facility] at 09:10 11/14 regarding the procedure request below. There are no answered order specific questions. History of Present Illness: Per chart review, Nilam Dyer is a 73 y.o. female currently admittedto [facility] for gallstone pancreatitis with rising leukocytosis, positive [...] * POCT Glucose (11/16/2023 3:18 PM EDT) [facility] Signature Glucose, POC 94 65 - 199 mg/dL [facility] Comment: Supplemental ranges: <140 mg/dL before meals <180 mg/dL all other times of the day Blood 11/16/2023 3:18 PM EDT 11/16/2023 3:18 PM EDT Efraín Teran DO POINT OF CARE TEST O RDERABLES Performing Organization Address City/State/[facility] Co de Phone Number [facility] [place] [address] * IR Cholecystostomy Tube Placement (11/16/2023 2:57 [...] the tract was dilated and a 10 Tamazight Fr locking pigtail drain was advanced into [...] discharge to return via hospital transfer to [facility], when meets criteria Resident/Fellow: Alvin Harris MD Attending: Dr. Mendiola I, Dr. Mendiola, was present throughout the procedure. I was present during the intraservice time as documented by the IR Nurse. ?? Efraín Teran DO IMG IR ORDERABLES * Anaerobic Culture (11/16/2023 2:35 PM EDT) Anaerobic Culture No anaerobic organisms isolated [facility] Bile 11/16/2023 2:35 PM EDT 11/16/2023 3:54 PM EDT Comment:Cholecystomy Narrative Resulting Agency Comment Spec In Lab Jose Mendiola MD MICROBIOLOGY - GENER AL ORDERABLES Performing Organization Address [facility]/ZIP Co de Phone Number [facility] [place] [address] * (ABNORMAL) Body Fluid Culture, Aerobic (11/16/2023 2:35 PM EDT) Body Fluid Culture Many Escherichia coli(A) [facility] Gram Stain Few Neutrophils seen Moderate Gram Negative Rods (A) [facility] Organism Escherichia coli(A) [facility] Bile 11/16/2023 2:35 PM EDT [...] - GENER AL ORDERABLES Performing Organization Address City/[facility] Hospital/ZIP Co de Phone Number [facility] [place] [address] * POCT Glucose (11/16/2023 1:35 PM EDT) Glucose, POC 84 65 - 199 mg/dL [facility] Comment: Supplemental ranges: <140 mg/dL before meals <180 mg/dL all other times of the day Blood 11/16/2023 1:35 PM EDT 11/16/2023 1:35 PM EDT Efraín Teran DO POINT OF CARE TEST O RDERABLES [facility] [place] [address] documented in this encounter Visit Diagnoses Diagnosis [...]
--- OUTSIDE RECORDS SUMMARY | 2024-02-14 21:42 | XMS_ITS | Encounter Summary ---
Author Organization [facility] [place] [address] Care Team Providers Care Biochemistry Technologist Name Role Phone Unavailable Primary Care Provider Unavailabl e Reason for Referral * Diagnostic Test (Routine) - Pending Review Specialty Diagnoses / Procedures Referred By Silvana taylor Referred To Contact Radiology Diagnoses Acute cholecystitis Procedures IR Cholecystostomy Tube Placement Merissa Oakes PA [facility] [place] [address] [place] [address] Referral ID Status Reason Start Date Expiration Date Visits Requested Visits Authorized [id number] Pending Review Specialty Service Requested 11/15/2023 05/17/2025 1 1 Encounter Details Date Type Department Care Team (Late st Contact Info) Description 11/15/2023 Orders [place] [address] Merissa Oakes PA [facility] [place] [address] Acute cholecystitis Social History Tobacco [...] Service contacted by Dr. Alexandro Smith at [facility] at 09:10 11/14 regarding the procedure request below. There are no answered order specific questions. History of Present Illness: Per chart review, Nilam Dyer is a 73 y.o. female currently admitted[facility] for gallstone pancreatitis with rising leukocytosis, positive [...] on file documented as of this encounter Results * [...] the tract was dilated and a 10 Indonesian Fr locking pigtail drain was advanced into [...] discharge to return via hospital transfer to [facility], when meets criteria Resident/Fellow: Alvin Harris MD Attending: Dr. Mendiola I, Dr. Mendiola, was present throughout the procedure. I was present during the intraservice time as documented by the IR Nurse. ?? Efraín Teran DO IMG IR ORDERABLES documented in this encounter Visit Diagnoses Diagnosis Acute cholecystitis Acute cholecystitis documented in this encounter
[2024-02-15 00:17] LABS: MRSA PCR Positive (Negative)
== END 2024-02-14 21:42 | disposition home or self-care (01) ==
LOC: LBN 21:41
PROVIDERS: PCP Nurse Practitioner Gerontology; Visit Provider Nurse Practitioner Gerontology
DX: B95.62 Methicillin resistant Staphylococcus aureus infection as the cause of diseases classified elsewhere (principal)
CPT/HCPCS: 87641

== ENCOUNTER 2024-02-23 03:39 | Outpatient (CLI) | payer MEDICARE, MEDICAID, SELFPAY ==
[2024-02-23 14:14] LABS: ALT 19 U/L (14-59); AST 11 U/L (15-37); Albumin 3.4 g/dL (3.4-5.0); Alkaline Phosphatase 70 U/L (46-116); Anion Gap 7.9 mmol/L (3-11); BUN 30 mg/dL (7-18); Bilirubin, Total 0.31 mg/dL (0.2-1.0); CO2 30.1 mmol/L (21.0-32.0); CREATININE 1.1 mg/dL (0.55-1.02); Calcium 9.9 mg/dL (8.5-10.1); Chloride 97 mmol/L (98-107); Estimated GFR 52.73 (mL/min/1.73m2); Glucose 214 mg/dL (74-106); Magnesium 1.8 mg/dL (1.8-2.4); Potassium 4.2 mmol/L (3.5-5.1); Sodium 135 mmol/L (136-145); Total Protein 8.3 g/dL (6.4-8.2)
[2024-02-23 14:40] LABS: Hemoglobin A1C 9.5 % (<5.7)
[2024-02-27 13:50] LABS: TB Interpretation Negative (Negative); TB1 Ag minus Nil 0.01 IU/ml
== END 2024-02-23 03:40 | disposition home or self-care (01) ==
LOC: LBO 03:39
PROVIDERS: PCP Nurse Practitioner Gerontology; Visit Provider Nurse Practitioner Gerontology
DX: E11.42 Type 2 diabetes mellitus with diabetic polyneuropathy (principal); L73.2 Hidradenitis suppurativa; E87.6 Hypokalemia; E83.42 Hypomagnesemia; E87.1 Hypo-osmolality and hyponatremia
CPT/HCPCS: 36415; 80053; 83036; 83735; 86480

== ENCOUNTER 2024-02-29 03:39 | Outpatient (CLI) | payer MEDICARE, MEDICAID, SELFPAY ==
[2024-02-29 22:35] LABS: HBs Antibody, Quant <3.1 mIU/mL (See Note); Hepatitis B Surface Ab Negative (See Note)
[2024-02-29 22:49] LABS: Hepatitis B Surface Ag Negative (Negative)
[2024-02-29 23:14] LABS: Hepatitis C Ab w Rflx HCV PCR Negative (Negative)
[2024-02-29 23:18] LABS: Hep B Core Antibody Negative (Negative)
== END 2024-02-29 03:40 | disposition home or self-care (01) ==
LOC: LBO 03:39
PROVIDERS: PCP Nurse Practitioner Gerontology; Visit Provider Dermatology
DX: L73.2 Hidradenitis suppurativa (principal); Z79.899 Other long term (current) drug therapy
CPT/HCPCS: 36415; 86704; 86706; 86803; 87340

== ENCOUNTER → 2024-03-01 09:53 | Outpatient (BNVA) | payer MEDICARE, MEDICAID, SELFPAY | PROVIDERS: PCP Nurse Practitioner Gerontology; Referring Provider Nurse Practitioner Gerontology; Visit Provider Internal Medicine | DX: R13.10 Dysphagia, unspecified (principal); I50.43 Acute on chronic combined systolic (congestive) and diastolic (congestive) heart failure; E11.65 Type 2 diabetes mellitus with hyperglycemia; R60.1 Generalized edema; J90 Pleural effusion, not elsewhere classified | CPT/HCPCS: 94618; 99215 ==

== ENCOUNTER 2024-03-09 00:23 | Outpatient (CLI) | payer MEDICARE, MEDICAID, SELFPAY ==
--- OUTSIDE RECORDS SUMMARY | 2024-03-09 00:25 | XMS_ITS | Encounter Summary ---
Author Organization [facility] Address [facility] [place] [address] Care Team Providers Care Money Order Clerk Name Role Phone Unavailable Primary Care Provider Unavailabl e Encounter Details Date Type Department Care Team (Late st Contact Info) Description 02/14/2024 11:00 AM EDT Office Visit Dermatology at [facility] [address] [place] [address] Rama Justice MD [facility] [address] [place] [address] Hidradenitis suppurativa; Intertrigo Social History Tobacco Use [...] history of IBD - Per discussion with care home staff, nurse practioner on staff needs paper [...] if still active. - Per discussion with care home staff, nurse practioner on staff needs paper prescriptions priorto writing his/her own prescriptions. Provided paper prescriptions for the above medications. Other: N/A RTC: 3 month HS follow up [x]Note routed to paralegal legal secretary []Recall placed in scheduling system []Appointment scheduled at checkout Scribe attestation: DERRICK White has performed the documentation for this encounter in the presence of and acting as a scribe for Rama Justice MD. I performed the above scribed service and agree with the accuracy of the documentation in this encounter. Reviewed and signed by: Rama Justice MD Dermatology [facility] documented in this encounter Plan of Treatment Upcoming Encounters Date Type Department Care Team (Late st Contact Info) Description 05/29/2024 9:30 AM EST Office Visit Dermatology at [facility] [address] [place] [address] Rama Justice MD [facility] [address] [place] [address] documented as of this encounter Visit Diagnoses Diagnosis Hidradenitis suppurativa Hidradenitis Intertrigo Other specified erythematous condition documented in this encounter
--- OUTSIDE RECORDS SUMMARY | 2024-03-09 00:25 | XMS_ITS | Encounter Summary ---
Author Organization [facility] Address [facility] [place] [address] Care Team Providers Care Clother In Name Role Phone Unavailable Primary Care Provider Unavailabl e Encounter Details Date Type Department Care Team (Late st Contact Info) Description 02/28/2024 Telephone Dermatology at [facility] [address] [place] [phone] Rama Justice MD [facility] DR ANN MARIE [place] [address] Social History Tobacco Use Types Packs/Day Years Used Date Smoking Tobacco: Never Assessed Sex and Gender Information Value Date Recorded Sex Assigned at Not on file Gender Identity Not on file Sexual Orientation Not on file documented as of this encounter Miscellaneous Notes * Telephone Encounter - Sandra Gandhi BELEM Brand - 02/28/2024 2:30 PM EDT Faith called the office and asked what labs are needed for Nilam as she resides at the [facility]. Faith mentioned they can see some labs have been done at the [facility]. We have not received any labs at this time. She asked for the lab orders to be refaxed and the updated fax # is . I let her know they were faxed this AM. She mentioned she did not receive and that the fax # I had was wring. Once they get the orders and the labs are drawn for what is missed. Faith will have the results faxed to the office @ [phone]. Faxed lab orders today @ 2:48 PM to [facility] where Nilam resides fax # and phone # is phone number is [phone] Quant Gold Hep C Antibody Hep B Core Antibody Hep B Surface Antibody Hep B Surface Antigen documented in this encounter Plan of Treatment Upcoming Encounters Date Type Department Care Team (Late st Contact Info) Description 05/29/2024 9:30 AM EST Office Visit Dermatology at [facility] [address] [place] [address] Rama Justice MD [facility] DR [address] MAR[address] [place] [address] documented as of this encounter Visit Diagnoses Not on filedocumented in this encounter
--- OUTSIDE RECORDS SUMMARY | 2024-03-09 00:25 | XMS_ITS | Encounter Summary ---
Author Organization [facility] Address [address] [place] [address] Care Team Providers Care Core Driller Name Role Phone Unknown, Provider Primary Care Provider Encounter Details Date Type Department Care Team (Late st Contact Info) Description 11/30/2023 Lab Requisition [facility] Pathology & Laboratory Medicine - [address] [place] [address] Pressure ulcer of right heel, [...] explore management options, if applicable. 12/05/2023 11:34 [facility] Final Diagnosis A. 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 - Acute serositis and adhesions. - Cholelithiasis. - Benign reactive lymph node. 12/05/2023 11:34 [facility] Attestation There was significan t resident/fellow involvement in the diagnostic evaluation of this case. By the signature below, the attending physician certifies that they have personally conducted a gross and/or microscopic examination of the described specimens and rendered or confirmed the above diagnosis. 12/05/2023 11:34 [facility] at 1134 Clinical History Cholecystitis, S/P cholecystostomy tube insertion 11/16/2023, developed sepsis with WBC 31,000, now open robert 12/05/2023 11:34 [facility] Gross Description A. Received in [...] received are several brown-black smooth multifaceted calculi. Solar Energy System Installer Helper sections are submitted as follows: BLOCK MARIA A1- cystic duct margin, en face and bisected possible periductal lymph node A2-A6- data entry representative sections gallbladder wall A7- section separately submitted necrotic saccular tissue A8- data entry representative sections separately submitted tissue fragments MELO HILLIARD(ASCP) 11/30/2023 10:55 12/05/2023 11:34 EDT [facility] Resident/Fell ow: Jefry Montez DO 12/05/2023 11:34 EDT [facility] Performing Lab [facility] 12/05/2023 11:34 EDT [facility] Scanned Images 12/05/2023 11:34 EDT [facility] Tissue GALLBLADDER STRUCTURE / Unknown 11/29/2023 14:25 EDT 11/30/2023 8:14 EDT Kirit Tejeda PATHOLOGY ORDERABLES [facility] [address] [place] [address] documented in this encounter Visit Diagnoses Diagnosis Pressure ulcer of right heel, unstageable ([facility]) Hypothyroidism, unspecified Acute cystitis without hematuria Acute cystitis Chronic diastolic (congestive) heart failure ([facility]) Anemia in other chronic diseases classified elsewhere Type 2 diabetes mellitus with hyperglycemia ([facility]) Type II or unspecified type diabetes mellitus without mention of complication, not stated as uncontrolled Type 2 diabetes mellitus with diabetic polyneuropathy ([facility]) Type II or unspecified type diabetes mellitus with neurological manifestations, not stated as uncontrolled Pneumonia, unspecified organism Cholecystitis, unspecified documented in this encounter Care Teams Core Driller Relationship Specialty Start Date End Date Unknown, Provider, PCP - General 11/19/23 documented as of this encounter
--- OUTSIDE RECORDS SUMMARY | 2024-03-09 00:25 | XMS_ITS | Encounter Summary ---
Author Organization [facility] Address [facility] [place] [address] Care Team Providers Care Conference Center Coordinator Name Role Phone Unavailable Primary Care Provider Unavailabl e Encounter Details Date Type Department Care Team (Late st Contact Info) Description 12/06/2023 Notes [place] [id number] Jose Mendiola MD [facility] [place] [address] Social History Tobacco Use Types Packs/Day Years [...] PLACEMENT 11/16/2023 IR Cholecystostomy Tube Placement 11/16/2023 [facility] Medications: Benzonatate 200 mg [...] 9:30 AM EST Office Visit Dermatology at [facility] [address] [place] [address] Rama Justice MD [facility] [address] [place] [place] [address] documented as of this encounter Visit Diagnoses Not on filedocumented in this encounter
--- OUTSIDE RECORDS SUMMARY | 2024-03-09 00:25 | XMS_ITS | Encounter Summary ---
Author Organization [facility] Address [address] [place] [address] Care Team Providers Care Animal Warden Name Role Phone Unknown, Provider Primary Care Provider Encounter Details Date Type Department Care Team (Late st Contact Info) Description 02/29/2024 Lab Requisition [facility] Pathology & Laboratory Medicine - [facility] [address] [place] [address] Outr Resulting Lab, Provider Social History Tobacco [...] Procedure Name Priority Date/Time Associated Diagnosis Comments HEPATITIS C AB W REFLEX TO HCV RNA BY PCR Routine 02/29/2024 14:40 EDT HEPATITIS B CORE ANTIBODY (TOTAL) Routine 02/29/2024 14:40 EDT HEPATITIS B SURFACE ANTIBODY Routine 02/29/2024 14:40 EDT HEPATITIS B SURFACE ANTIGEN Routine 02/29/2024 14:40 EDT documented in this encounter Results * HEPATITIS B SURFACE ANTIBODY (02/29/2024 14:40 EDT) Hep B Surface Ab, Quantitative <3.1 See Note mIU/mL 02/29/2024 22:30 EDT [facility] Comment: Reference Range for Hep B Surface Ab, Quant: Positive: >= 10.0 mIU/mL Negative: ??< 10.0 mIU/mL Patient is presumed to not be immune to infection with Hepatitis B Virus. Hep B Surface Ab, Qualitative Negative See Note 02/29/2024 22:30 EDT [facility] Comment: Reference Range for Hep B Surface Ab, Qual: Unvaccinated: ??Negative Vaccinated: ??Positive Blood VENOUS BLOOD / Unknown 02/29/2024 14:40 EDT 02/29/2024 21:40 EDT Provider Outr Resulting Lab CHEMISTRY & BLOOD GAS ORDERABLES Performing Organization Address City/[facility]/ZIP Co de Phone Number [facility] [address] [place] [address] * HEPATITIS B CORE ANTIBODY (TOTAL) (02/29/2024 14:40 EDT) Hepatitis B Core Ab, Total Negative Negative 02/29/2024 23:13 EDT [facility] Blood VENOUS BLOOD / Unknown 02/29/2024 14:40 EDT 02/29/2024 21:40 EDT Provider Outr Resulting Lab CHEMISTRY & BLOOD GAS ORDERABLES Performing Organization Address City/[facility] Co de Phone Number [facility] [address] [place] [address] * HEPATITIS B SURFACE ANTIGEN (02/29/2024 14:40 EDT) Hep B Surface Ag Negative Negative 02/29/2024 22:44 EDT [facility] Blood VENOUS BLOOD / Unknown 02/29/2024 14:40 EDT 02/29/2024 21:40 EDT Provider Outr Resulting Lab CHEMISTRY & BLOOD GAS ORDERABLES Performing Organization Address [facility] Co de Phone Number [facility] [address], [place] [phone] * HEPATITIS C AB W REFLEX TO HCV RNA BY PCR (02/29/2024 14:40 EDT) Hep C Antibody Negative Negative 02/29/2024 23:10 EDT [facility] Blood VENOUS BLOOD / Unknown 02/29/2024 14:40 EDT 02/29/2024 21:40 EDT Provider Outr Resulting Lab CHEMISTRY & BLOOD GAS ORDERABLES [facility] [address] [place] [address] documented in this encounter Visit Diagnoses Not on filedocumented in this encounter Care Teams Animal Warden Relationship Specialty Start Date End Date Unknown, Provider, PCP - General 11/19/23 documented as of this encounter
--- OUTSIDE RECORDS SUMMARY | 2024-03-09 00:25 | XMS_ITS | Encounter Summary ---
Author Organization [facility] Address [facility] [place] [address] Care Team Providers Care Riprap Man Name Role Phone Unavailable Primary Care Provider Unavailabl e Encounter Details Date Type Department Care Team (Late st Contact Info) Description 11/29/2023 2:20 AM EDT Ancillary Procedure Radiology Library at [facility] [place] [address] Efraín Deras MD [facility] [place] [address] Social History Tobacco Use Types Packs/Day Years [...] 9:30 AM EST Office Visit Dermatology at [facility] [address] [place] [address] Rama Justice MD [facility] [address] [place] [place] [address] documented as of this encounter Procedures Procedure Name Priority Date/Time Associated Diagnosis Comments FILM LIBRARY STORAGE ONLY CT CHEST ABDOMEN PELVIS Routine 11/29/2023 2:17 AM EDT documented in this encounter Results * Film Library- Storage Only CT Chest Abdomen Pelvis (11/29/2023 2:17 AM EDT) Narrative [facility] - 11/29/2023 2:17 AM EDT This exam is auto-finalizing. It's purpose is for storage only. Efraín Deras MD [facility] FILM LIBRARY ORD ERABLES Performing Organization Address City/State/[facility] Co de Phone Number [place] [place], [place] documented in this encounter Visit Diagnoses Not on filedocumented in this encounter
--- OUTSIDE RECORDS SUMMARY | 2024-03-09 00:25 | XMS_ITS | Encounter Summary ---
Author Organization [facility] Address [address] [place] [address] Care Team Providers Care Semiconductor Wafers Tester Name Role Phone Unknown, Provider Primary Care Provider Encounter Details Date Type Department Care Team (Late st Contact Info) Description 10/17/2023 Lab Requisition [facility] Pathology & Laboratory Medicine - [address] [address] Outr Resulting Lab, Provider Social History Tobacco [...] 150 - 1,150 mOsm/kg 10/17/2023 16:39 EDT [facility] Urine URINE / Unknown 10/16/2023 1 4:38 EDT 10/17/2023 16:27 EDT Provider Outr Resulting Lab URINALYSIS O RDERABLES [facility] [address] [place], [place] [address] documented in this encounter Visit Diagnoses Not on filedocumented in this encounter Care Teams Semiconductor Wafers Tester Relationship Specialty Start Date End Date Unknown, Provider, PCP - General 11/19/23 documented as of this encounter
--- OUTSIDE RECORDS SUMMARY | 2024-03-09 00:25 | XMS_ITS | Clinical Summary ---
Author Organization [facility] Address [address] [place] [address] Care Team Providers Care Feed Mill Tender Name Role Phone Unknown, Provider Primary Care Provider Encounters Date Type Department Care Team Description 02/29/2024 Lab Requisition [facility] Pathology & Laboratory [address] [address] Outr Resulting Lab, Provider 02/24/2024 Lab Requisition [facility] Pathology & Laboratory [address] [address] Outr Resulting Lab, Provider from Last 3 Months Social History Tobacco Use Types Packs/Day Years Used Date Smoking Tobacco: Never Assessed Sex and Gender Information Value Date Recorded Sex Assigned at Not on file Gender Identity Not on file Sexual Orientation Not on file Plan of Treatment Health Maintenance Due Date Last Done Comments RSV Immunization ( o r 60+ Years) (1 - 1-dose 60+ series) 2009 Fall Risk Screening 2014 COVID-19 Vaccine ( season) 2024 Hepatitis C Screen Completed 02/29/2024 Procedures Procedure Name Priority Date/Time Associated Diagnosis Comments HEPATITIS B SURFACE ANTIBODY Routine 02/29/2024 14:40 EDT HEPATITIS B CORE ANTIBODY (TOTAL) Routine 02/29/2024 14:40 EDT HEPATITIS B SURFACE ANTIGEN Routine 02/29/2024 14:40 EDT HEPATITIS C AB W REFLEX TO HCV RNA BY PCR Routine 02/29/2024 14:40 EDT QUANTIFERON INTERPRETATION (PERFORMABLE) Today 02/23/2024 13:40 EDT QUANTIFERON MITOGEN (PERFORMABLE) Today 02/23/2024 13:40 EDT QUANTIFERON TB2 (PERFORMABLE) Today 02/23/2024 13:40 EDT QUANTIFERON TB1 (PERFORMABLE) Today 02/23/2024 13:40 EDT QUANTIFERON NIL (PERFORMABLE) Today 02/23/2024 13:40 EDT QUANTIFERON TB GOLD PLUS Routine 02/23/2024 13:40 EDT from Last 3 Months Results * HEPATITIS C AB W REFLEX TO HCV RNA BY PCR (02/29/2024 14:40 EDT) Hep C Antibody Negative Negative 02/29/2024 23:10 EDT [facility] Blood VENOUS BLOOD / Unknown 02/29/2024 14:40 EDT 02/29/2024 21:40 EDT Provider Outr Resulting Lab CHEMISTRY & BLOOD GAS ORDERABLES Performing Organization Address City/[facility]/ZIP Co de Phone Number [facility] [address] [place] [address] * HEPATITIS B CORE ANTIBODY (TOTAL) (02/29/2024 14:40 EDT) Hepatitis B Core Ab, Total Negative Negative 02/29/2024 23:13 EDT [facility] Blood VENOUS BLOOD / Unknown 02/29/2024 14:40 EDT 02/29/2024 21:40 EDT Provider Outr Resulting Lab CHEMISTRY & BLOOD GAS ORDERABLES Performing Organization Address City/[facility]/ZIP Co de Phone Number [facility] [address] [place] [address] * HEPATITIS B SURFACE ANTIBODY (02/29/2024 14:40 EDT) Hep B Surface Ab, Quantitative <3.1 See Note mIU/mL 02/29/2024 22:30 EDT [facility] Comment: Reference Range for Hep B Surface Ab, Quant: Positive: >= 10.0 mIU/mL Negative: ??< 10.0 mIU/mL Patient is presumed to not be immune to infection with Hepatitis B Virus. Hep B Surface Ab, Qualitative Negative See Note 02/29/2024 22:30 EDT [facility] Comment: Reference Range for Hep B Surface Ab, Qual: Unvaccinated: ??Negative Vaccinated: ??Positive Blood VENOUS BLOOD / Unknown 02/29/2024 14:40 EDT 02/29/2024 21:40 EDT Provider Outr Resulting Lab CHEMISTRY & BLOOD GAS ORDERABLES Performing Organization Address [facility] Co de Phone Number [facility] [address] [place], [place] [phone] * HEPATITIS B SURFACE ANTIGEN (02/29/2024 14:40 EDT) Hep B Surface Ag Negative Negative 02/29/2024 22:44 EDT [facility] Blood VENOUS BLOOD / Unknown 02/29/2024 14:40 EDT 02/29/2024 21:40 EDT Provider Outr Resulting Lab CHEMISTRY & BLOOD GAS ORDERABLES Performing Organization Address [facility] Co de Phone Number [facility] [address] [place] [address] * QUANTIFERON MITOGEN (PERFORMABLE) (02/23/2024 13:40 EDT) Blood VENOUS BLOOD / Unknown 02/23/2024 13:40 EDT 02/24/2024 17:50 EDT Provider Outr Resulting Lab IMMUNOLOGY A ND SEROLOGY ORDERABLES Performing Organization Address [facility] Co de Phone Number [facility] [address] [place], [place] [phone] * QUANTIFERON TB2 (PERFORMABLE) (02/23/2024 13:40 EDT) Blood VENOUS BLOOD / Unknown 02/23/2024 13:40 EDT 02/24/2024 17:50 EDT Provider Outr Resulting Lab IMMUNOLOGY A ND SEROLOGY ORDERABLES Performing Organization Address [facility] Co de Phone Number [facility] [address] [place] [address] * QUANTIFERON TB1 (PERFORMABLE) (02/23/2024 13:40 EDT) Blood VENOUS BLOOD / Unknown 02/23/2024 13:40 EDT 02/24/2024 17:50 EDT Provider Outr Resulting Lab IMMUNOLOGY A ND SEROLOGY ORDERABLES Performing Organization Address [facility] Co de Phone Number [facility] [address] [place] [address] * QUANTIFERON NIL (PERFORMABLE) (02/23/2024 13:40 EDT) Blood VENOUS BLOOD / Unknown 02/23/2024 13:40 EDT 02/24/2024 17:50 EDT Provider Outr Resulting Lab IMMUNOLOGY A ND SEROLOGY ORDERABLES Performing Organization Address [facility] Co de Phone Number [facility] [address] [place] [address] * QUANTIFERON INTERPRETATION (PERFORMABLE) (02/23/2024 13:40 EDT) [facility] Quantiferon Interpretation Negative Negative 02/27/2024 13:45 EDT [facility] Comment:No interferon-gamma response to M. tuberculosis antigens was detected. ??Infection with M. tuberculosis is unlikely. A single negative result does not exclude infection with M. tuberculosis. ??In patients at high risk for M. tuberculosis infection, a second test should be considered. TB1 Ag minus Nil 0.01 IU/ml 02/27/20 13:45 EDT [facility] TB2 Ag minus Nil 0.00 IU/mL 02/27/20 13:45 EDT [facility] Blood VENOUS BLOOD / Unknown 02/23/2024 13:40 EDT 02/27/2024 12:40 EDT Provider Outr Resulting Lab IMMUNOLOGY A ND SEROLOGY ORDERABLES [facility] [address] [place], [place] [phone] from Last 3 Months Care Teams Feed Mill Tender Relationship Specialty Start Date End Date Unknown, Provider, PCP - General 11/19/23
--- OUTSIDE RECORDS SUMMARY | 2024-03-09 00:25 | XMS_ITS | Encounter Summary ---
Author Organization [facility] Address [facility] [place] [address] Care Team Providers Care Letter Of Credit Clerk Name Role Phone Unavailable Primary Care Provider Unavailabl e Encounter Details Date Type Department Care Team (Late st Contact Info) Description 11/14/2023 Ancillary Procedure Radiology Library at [facility] [place] [address] Morgan Beauchamp MD [facility] [place] [address] Social History Tobacco Use Types Packs/Day Years [...] 9:30 AM EST Office Visit Dermatology at [facility] [address] [place] [address] Rama Justice MD [facility] DR [address] [place] [place] [address] documented as of this encounter Procedures Procedure Name Priority Date/Time Associated Diagnosis Comments FILM LIBRARY STORAGE ONLY CT ABDOMEN Routine 11/14/2023 12:00 AM EDT documented in this encounter Results * Film Library- Storage Only CT Abdomen (11/14/2023 12:00 AM EDT) Narrative [facility] - 11/15/2023 9:10 AM EDT This exam is auto-finalizing. It's purpose is for storage only. Morgan Beauchamp MD IM FILM LIBRARY ORD ERABLES Performing Organization Address City/State/[facility] Co de Phone Number [place], [place] documented in this encounter Visit Diagnoses Not on filedocumented in this encounter
--- OUTSIDE RECORDS SUMMARY | 2024-03-09 00:25 | XMS_ITS | Encounter Summary ---
Author Organization [facility] Address [facility] [place] [address] Care Team Providers Care Plisse Machine Operator Name Role Phone Unavailable Primary Care Provider Unavailabl e Encounter Details Date Type Department Care Team (Late st Contact Info) Description 02/23/2024 Telephone Dermatology at [facility] [address] [place] [phone] Rama Justice MD [facility] [address] [place] [address] Social History Tobacco Use Types Packs/Day Years Used Date Smoking Tobacco: Never Assessed Sex and Gender Information Value Date Recorded Sex Assigned at Not on file Gender Identity Not on file Sexual Orientation Not on file documented as of this encounter Miscellaneous Notes * Telephone Encounter - Rama Justice MD - 02/23/2024 2:04 PM EDT I recommend Hepatitis B surface antigen, Hepatitis B surface antibody, Hepaitits B core antibody, Hepatitis C antibody as a hepatitis panel and quantiferon gold as tuberculosis screen * Telephone Encounter - Noemi Pennington - 02/23/2024 1:22 PM EDT Anand Justice I received a call from Martha at [facility] lab in [place], [place] reaching out regarding the specific Hepatitis B lab Nilam is needing. They have sent her home today to return at another time for labs as pt had a scheduled ride pick upat 1:45pm this afternoon. Anand Sandra - can you please let them know? Thank you! Noemi documented in this encounter Plan of Treatment Upcoming Encounters Date Type Department Care Team (Late st Contact Info) Description 05/29/2024 9:30 AM EST Office Visit Dermatology at [facility] [address] [place] [address] Rama Justice MD [facility] [address] [place] [address] documented as of this encounter Visit Diagnoses Not on filedocumented in this encounter
--- OUTSIDE RECORDS SUMMARY | 2024-03-09 00:25 | XMS_ITS | Encounter Summary ---
Author Organization [facility] Address [facility] [place] [address] Care Team Providers Care Harbor Pilot Name Role Phone Unavailable Primary Care Provider [...] 9:30 AM EST Office Visit Dermatology at [facility] [address] [place] [address] Rama Justice MD [facility] [address] [place] [address] documented as of this encounter Visit Diagnoses Not on filedocumented in this encounter
--- OUTSIDE RECORDS SUMMARY | 2024-03-09 00:25 | XMS_ITS | Encounter Summary ---
Author Organization [facility] Address [facility] [place] [address] Care Team Providers Care Supervisor Roller Printing Name Role Phone Unavailable Primary Care Provider Unavailabl e Encounter Details Date Type Department Care Team (Late st Contact Info) Description 02/28/2024 Telephone Dermatology at [facility] [address] [place] [address] Rama Justice MD [facility] [address] MAR[place] [address] Social History Tobacco Use Types Packs/Day Years Used Date Smoking Tobacco: Never Assessed Sex and Gender Information Value Date Recorded Sex Assigned at Not on file Gender Identity Not on file Sexual Orientation Not on file documented as of this encounter Miscellaneous Notes * Telephone Encounter - Sandra Chambers - 02/28/2024 9:38 AM EDT I received a phone call from Faith at the [facility] where Nilam Dyer lives. She was wondering if the labs that Dr. Justice needs could be drawn at their facility and if we can fax over the orders? The fax # is [phone]. If anything further is needed their phone number is [phone] (ask for Faith) documented in this encounter Plan of Treatment Upcoming Encounters Date Type Department Care Team (Late st Contact Info) Description 05/29/2024 9:30 AM EST Office Visit Dermatology at [facility] [address] [place] [address] Rama Justice MD [facility] [address] MAR[place] [address] documented as of this encounter Visit Diagnoses Not on filedocumented in this encounter
--- OUTSIDE RECORDS SUMMARY | 2024-03-09 00:25 | XMS_ITS | Encounter Summary ---
Author Organization [facility] Address [facility] [place] [address] Care Team Providers Care Sql Engineer Name Role Phone Unavailable Primary Care Provider Unavailabl e Encounter Details Date Type Department Care Team (Late st Contact Info) Description 03/06/2024 Telephone Dermatology at [facility] [address] [place] [address] Rama Justice MD [facility] [address] ANN [place] [address] Social History Tobacco Use Types Packs/Day Years Used Date Smoking Tobacco: Never Assessed Sex and Gender Information Value Date Recorded Sex Assigned at Not on file Gender Identity Not on file Sexual Orientation Not on file documented as of this encounter Miscellaneous Notes * Telephone Encounter - aRma Justice MD - 03/07/2024 3:01 PM EDT Letter with dosing info signed to be mailed with labs results from media tab * Telephone Encounter - Mariella Carlos LPN - 03/06/2024 8:31 AM EDT Note initiated by: MARIELLA CARLOS LPN @ 8:30 AM. Placed a call to the residential of [facility]. Spoke with JANET Martinez and discussed the message from Dr. Justice about labs and starting Cosentyx. Michelle mentioned that Nilam has been on the injections. She started them on February 16 and the initial dosing ends the 5 weekly injections on 03/16/2024. Atwhich time she starts the next step on 04/13/2024 every 30 day injections. She is asking for a fax with the correct orders to be faxed to her with the lab report for her records. Fax # is Att: Michelle. There is an SCREW MACHINE OPERATOR SWISS TYPE that is in the facility that views all orders for Nilam's care. secukinumab 300 mg/2 mL (150 mg/mL) Pen Injector Loading dose: Inject secukinumab 300mg weekly at weeks 0, 1, 2, 3, and 4. secukinumab 300 mg/2 mL (150 mg/mL) Pen Injector Inject 300 mg subcutaneously every 28 days. Maintenance dose Message from Dr. Justice Hepatitis panel and tuberculosis screen are negative. Okay to start Cosentyx. Tamir, can you please help us submit a PA? She is in a residential and I do not believe they have a dermatologsit to submit the prescription. Thank you! Message from Basilio Good morning, This is approved through 08/27/2024 with no copay at this time. The patient is currently in the catastrophic phase of her part D insurance and the copay likely won't be $0.00 forever but at this point in time the patient can start the medication with no copay. Thank you! -Basilio documented in this encounter Plan of Treatment Upcoming Encounters Date Type Department Care Team (Late st Contact Info) Description 05/29/2024 9:30 AM EST Office Visit Dermatology at [facility] [address] [place] [address] Rama Justice MD [facility] [address] ANN [place] [address] documented as of this encounter Visit Diagnoses Not on filedocumented in this encounter
--- OUTSIDE RECORDS SUMMARY | 2024-03-09 00:25 | XMS_ITS | Encounter Summary ---
Author Organization [facility] Address [facility] [place] [address] Care Team Providers Care Supervisor Aluminum Fabrication Name Role Phone Unavailable Primary Care Provider Unavailabl e Encounter Details Date Type Department Care Team (Latest Contact Info) Description 02/24/2024 Transcribe Orders Dermatology at [facility] [address] [place] [address] Rama Justice MD [facility] [place] [address] Hidradenitis suppurativa; High risk medication use Social History Tobacco Use Types Packs/Day Years [...] 9:30 AM EST Office Visit Dermatology at [facility] [address] [place] [address] Rama Justice MD [facility] [place] [address] Scheduled Orders Name Type Priority Associated Diagnoses Orde r Schedule Hepatitis B Surface Antigen Lab Routine Hidradenitis suppurativa High risk medication use Expected: 02/24/2024, Expires: 05/25/2024 Hepatitis B Surface Antibody Lab Routine Hidradenitis suppurativa High risk medication use Expected: 02/24/2024, Expires: 05/25/2024 Hepatitis B Core Antibody, IgM Lab Routine Hidradenitis suppurativa High risk medication use Expected: 02/24/2024, Expires: 05/25/2024 Hepatitis C Antibody Lab Routine Hidradenitis suppurativa High risk medication use Expected: 02/24/2024, Expires: 05/25/2024 QuantiFERON-TB Gold Lab Routine Hidradenitis suppurativa High risk medication use Expected: 02/24/2024, Expires: 05/25/2024 documented as of this encounter Visit Diagnoses Diagnosis Hidradenitis suppurativa Hidradenitis High risk medication use Encounter for long-term (current) use of other medications documented in this encounter
--- OUTSIDE RECORDS SUMMARY | 2024-03-09 00:25 | XMS_ITS | Encounter Summary ---
Author Organization [facility] Address [address] [place] [address] Care Team Providers Care Sheep Shearer Name Role Phone Unknown, Provider Primary Care Provider [phone] Encounter Details Date Type Department Care Team (Late st Contact Info) Description 02/24/2024 Lab Requisition [facility] Pathology & Laboratory Medicine - [facility] [address] [place] [address] Outr Resulting Lab, Provider Social History Tobacco [...] Procedure Name Priority Date/Time Associated Diagnosis Comments QUANTIFERON MITOGEN (PERFORMABLE) Today 02/23/2024 13:40 EDT QUANTIFERON TB2 (PERFORMABLE) Today 02/23/2024 13:40 EDT QUANTIFERON TB1 (PERFORMABLE) Today 02/23/2024 13:40 EDT QUANTIFERON NIL (PERFORMABLE) Today 02/23/2024 13:40 EDT QUANTIFERON INTERPRETATION (PERFORMABLE) Today 02/23/2024 13:40 EDT QUANTIFERON TB GOLD PLUS Routine 02/23/2024 13:40 EDT documented in this encounter Results * QUANTIFERON INTERPRETATION (PERFORMABLE) (02/23/2024 13:40 EDT) Quantiferon Interpretation Negative Negative 02/27/2024 13:45 EDT [facility] Comment:No interferon-gamma response to M. tuberculosis antigens was detected. ??Infection with M. tuberculosis is unlikely. A single negative result does not exclude infection with M. tuberculosis. ??In patients at high risk for M. tuberculosis infection, a second test should be considered. TB1 Ag minus Nil 0.01 IU/ml 02/27/20 13:45 EDT [facility] TB2 Ag minus Nil 0.00 IU/mL 02/27/20 13:45 EDT [facility] Blood VENOUS BLOOD / Unknown 02/23/2024 13:40 EDT 02/27/2024 12:40 EDT Provider Outr Resulting Lab IMMUNOLOGY A ND SEROLOGY ORDERABLES Performing Organization Address City/[facility]/ZIP Co de Phone Number [facility] [address], [place] [phone] * QUANTIFERON MITOGEN (PERFORMABLE) (02/23/2024 13:40 EDT) Blood VENOUS BLOOD / Unknown 02/23/2024 13:40 EDT 02/24/2024 17:50 EDT Provider Outr Resulting Lab IMMUNOLOGY A ND SEROLOGY ORDERABLES Performing Organization Address City/[facility] Co de Phone Number [facility] [address], [place] [phone] * QUANTIFERON TB2 (PERFORMABLE) (02/23/2024 13:40 EDT) Blood VENOUS BLOOD / Unknown 02/23/2024 13:40 EDT 02/24/2024 17:50 EDT Provider Outr Resulting Lab IMMUNOLOGY A ND SEROLOGY ORDERABLES Performing Organization Address [facility]/ZIP Co de Phone Number [facility] [address], [place] [phone] * QUANTIFERON TB1 (PERFORMABLE) (02/23/2024 13:40 EDT) Blood VENOUS BLOOD / Unknown 02/23/2024 13:40 EDT 02/24/2024 17:50 EDT Provider Outr Resulting Lab IMMUNOLOGY A ND SEROLOGY ORDERABLES Performing Organization Address [facility] Co de Phone Number [facility] [address], [place] [phone] * QUANTIFERON NIL (PERFORMABLE) (02/23/2024 13:40 EDT) Blood VENOUS BLOOD / Unknown 02/23/2024 13:40 EDT 02/24/2024 17:50 EDT Provider Outr Resulting Lab IMMUNOLOGY A ND SEROLOGY ORDERABLES Performing Organization Address [facility] Co de Phone Number [facility] [address], [place] [phone] documented in this encounter Visit Diagnoses Not on filedocumented in this encounter Care Teams Sheep Shearer Relationship Specialty Start Date End Date Unknown, Provider, PCP - General 11/19/23 documented as of this encounter
--- OUTSIDE RECORDS SUMMARY | 2024-03-09 00:25 | XMS_ITS | Encounter Summary ---
Author Organization [facility] Address [facility] [place] [address] Care Team Providers Care Executive Casino Host Name Role Phone Unavailable Primary Care Provider Unavailabl e Encounter Details Date Type Department Care Team (Late st Contact Info) Description 03/05/2024 Telephone Dermatology at [facility] [address] [place] [address] Rama Justice MD [facility] [address] [place] [address] Social History Tobacco Use Types Packs/Day Years Used Date Smoking Tobacco: Never Assessed Sex and Gender Information Value Date Recorded Sex Assigned at Not on file Gender Identity Not on file Sexual Orientation Not on file documented as of this encounter Miscellaneous Notes * Telephone Encounter - Rama Justice MD - 03/05/2024 5:07 PM EDT Hepatitis panel and tuberculosis screen are negative. Okay to start Cosentyx. Sandra, can you please let her know? Tamir, can you please help us submit a PA? She is in a penitentiary and I do not believe they have a dermatologsit to submit the prescription. Thank you! documented in this encounter Plan of Treatment Upcoming Encounters Date Type Department Care Team (Late st Contact Info) Description 05/29/2024 9:30 AM EST Office Visit Dermatology at [facility] [address] [place] [address] Rama Justice MD [facility] [address] [place] [address] documented as of this encounter Visit Diagnoses Not on filedocumented in this encounter
--- OUTSIDE RECORDS SUMMARY | 2024-03-09 00:25 | XMS_ITS | Clinical Summary ---
Author Organization [facility] Address [facility] [place] [address] Care Team Providers Care Line Erector Apprentice Name Role Phone Unavailable Primary Care Provider [...] Encounters Date Type Department Care Team Description 03/06/2024 Specialty [place] [phone] Basilio Rausch CPHT 03/06/2024 Telephone Dermatology at [facility] [address] [place] [address] Rama Justice MD 03/05/2024 Telephone Dermatology at [facility] [address] [place] [address] Rama Justice MD 03/01/2024 [facility] [address] [place] [address] Rama Justice MD 02/28/2024 [facility] [address] [place] [address] Rama Justice MD 02/28/2024 [facility] [address] [place] [address] Rama Justice MD 02/24/2024 Transcribe Orders Dermatology at [facility] [address] [place] [address] Rama Justice MD Hidradenitis suppurativa; High risk medication use 02/23/2024 Telephone Dermatology at [facility] [address] [place] [address] Rama Justice MD 02/14/2024 11:00 AM EDT Office Visit Dermatology at [facility] [address] [place] [address] Rama Justice MD Hidradenitis suppurativa; Intertrigo from Last 3 Months Social History Tobacco [...] 9:30 AM EST Office Visit Dermatology at [facility] [address] [place] [address] Rama Justice MD [facility] [address] [place] [address] Health Maintenance Due Date Last Done Comments [...] - PCV) 2014 Covid-19 Vaccine (1 - season) 2024 Influenza (Flu) vaccine (1 o f 1 - Influenza standard series) 02/19/2024 Procedures Procedure Name Priority Date/Time Associated Diagnosis Comments LAB SCAN 03/02/2024 12:00 AM EDT LAB SCAN 02/29/2024 12:00 AM EDT from Last 3 Months Results * Scan Doc: Lab (03/02/2024 12:00 AM EDT) Only the most recent of2 resultswithin the time period is included. Narrative 03/02/2024 12:00 AM EDT Ordered by an unspecified provider. Scanning Provider MEDIA MGR SCAN EXT O RDR/RSLT from Last 3 Months Advance Directives * Attempt Cardiopulmonary Resuscitation - Inpatient (Latest Code Status on File) Date Activated Date Inactivated Comments 11/16/2023 12:56 PM 11/17/2023 4:36 AM Question Answer Comments Code Status decision made by: Patient
--- OUTSIDE RECORDS SUMMARY | 2024-03-09 00:25 | XMS_ITS | Encounter Summary ---
Author Organization [facility] Address [facility] [address] Care Team Providers Care J2Ee Android Developer Name Role Phone Unavailable Primary Care Provider Unavailabl e Reason for Visit * Reason Comments Prior Authorization Cosentyx Sensoready Pens. 150mg/mL x 2 Encounter Details Date Type Department Care Team (Late st Contact Info) Description 03/06/2024 Specialty [place] [address] Basilio Rausch CPHT Social History Tobacco Use Types Packs/Day Years Used Date Smoking Tobacco: Never Assessed Sex and Gender Information Value Date Recorded Sex Assigned at Not on file Gender Identity Not on file Sexual Orientation Not on file documented as of this encounter Progress Notes * Basilio Rausch CPHT - 03/06/2024 8:43 AM EDT [facility], Prior Authorization Approval Medication Name: COSENTYX PEN 300 MG/2 PENS (150 MG/ML) SUBCUTANEOUS Medication ID: [id number] Approval Dates: 06/20/2023 to 08/27/2024 Insurance requirements/notes: None Other Notes: None Case/Reference #: Approval notification Received via: Telephone Copay: $0.00 Copay assistance: None Copay Notes: Insurance mandated Pharmacy: [facility] Fillable at [facility]: Yes Patient Notified: To be contacted by [facility] for consult Pharmacy staff will be reaching out to the patient to inform them of their [facility]. If applicable, a pharmacist will speak with the patient to offer our specialty pharmacy services and to arrange delivery of their medication. Basilio Rausch CPHT 03/06/24 8:45 AM documented in this encounter Plan of Treatment Upcoming Encounters Date Type Department Care Team (Late st Contact Info) Description 05/29/2024 9:30 AM EST Office Visit Dermatology at [facility] [address] [place] [address] Rama Justice MD [facility] [address] MAR[address] [place] [address] documented as of this encounter Visit Diagnoses Not on filedocumented in this encounter
--- OUTSIDE RECORDS SUMMARY | 2024-03-09 00:25 | XMS_ITS | Encounter Summary ---
Author Organization [facility] Address [facility] [place] [address] Care Team Providers Care Hat And Cap Parts Cutter Hand Name Role Phone Unavailable Primary Care Provider Unavailabl e Encounter Details Date Type Department Care Team (Late st Contact Info) Description 03/01/2024 Telephone Dermatology at [facility] [address] [place] [address] Rama Justice MD [facility] [address] MAR[address] [place] [address] Social History Tobacco Use Types Packs/Day Years Used Date Smoking Tobacco: Never Assessed Sex and Gender Information Value Date Recorded Sex Assigned at Not on file Gender Identity Not on file Sexual Orientation Not on file documented as of this encounter Miscellaneous Notes * Telephone Encounter - Rama Justice MD - 03/01/2024 8:08 AM EDT Reviewed lab results in media tab. There are several abnormalities that should be followed up with PCP including elevated hemoglobin A1c, elevated Creatinine. Tuberculosis screen is negative. There is no hepatitis panel result among the uploaded labs. Sandra, can you try to verify if the hepatitis panel was drawn and we are just awaiting fax of the results, or if not drawn, please help try to get that done? documented in this encounter Plan of Treatment Upcoming Encounters Date Type Department Care Team (Late st Contact Info) Description 05/29/2024 9:30 AM EST Office Visit Dermatology at [facility] [address] [place] [address] Rama Justice MD [facility] [address] MAR[address] [place] [address] documented as of this encounter Visit Diagnoses Not on filedocumented in this encounter
--- OUTSIDE RECORDS SUMMARY | 2024-03-09 00:25 | XMS_ITS | Encounter Summary ---
Author Organization [facility] Address [facility] [place] [address] Care Team Providers Care Company Dancer Name Role Phone Unavailable Primary Care Provider Unavailabl e Encounter Details Date Type Department Care Team (Late st Contact Info) Description 11/11/2023 Ancillary Procedure Radiology Library at [facility] [place] [address] Morgan Beauchamp MD [facility] [place] [address] Social History Tobacco Use Types Packs/Day Years [...] 9:30 AM EST Office Visit Dermatology at [facility] [address] [place] [address] Rama Justice MD [facility] [address] MAR[address] [place] [address] documented as of this encounter Procedures Procedure Name Priority Date/Time Associated Diagnosis Comments FILM LIBRARY STORAGE ONLY NUCLEAR MEDICINE Routine 11/11/2023 12:00 AM EDT documented in this encounter Results * Film Library- Storage Only nuclear medicine (11/11/2023 12:00 AM EDT) Narrative [facility] - 11/15/2023 9:11 AM EDT This exam is auto-finalizing. It's purpose is for storage only. Morgan Beauchamp MD [facility] FILM LIBRARY ORD ERABLES Performing Organization Address City/State/[facility] Co de Phone Number [place], [place] documented in this encounter Visit Diagnoses Not on filedocumented in this encounter
--- OUTSIDE RECORDS SUMMARY | 2024-03-09 00:25 | XMS_ITS | Encounter Summary ---
Author Organization [facility] [place] [address] Care Team Providers Care Assembler Gold Frame Name Role Phone Unavailable Primary Care Provider Unavailabl e Reason for Referral * Diagnostic Test (Routine) - Pending Review Specialty Diagnoses / Procedures Referred By Silvana taylor Referred To Contact Radiology Diagnoses Acute cholecystitis Procedures IR Cholecystostomy Tube Placement Merissa Oakes PA [facility] [place] [address] [place] [address] Referral ID Status Reason Start Date Expiration Date Visits Requested Visits Authorized [id number] Pending Review Specialty Service Requested 11/15/2023 05/17/2025 1 1 Encounter Details Date Type Department Care Team (Late st Contact Info) Description 11/15/2023 Orders [place] [address] Merissa Oakes PA [facility] [place] [address] Acute cholecystitis Social History Tobacco [...] Service contacted by Dr. Alexandro Smith at [facility] at 09:10 11/14 regarding the procedure request below. There are no answered order specific questions. History of Present Illness: Per chart review, Nilam Dyer is a 73 y.o. female currently [facility] for gallstone pancreatitis with rising leukocytosis, [...] 9:30 AM EST Office Visit Dermatology at [facility] [address] [place] [address] Rama Justice MD [facility] DR ANN MARIE [place] [address] documented as of this encounter Results * [...] the tract was dilated and a 10 Indian Fr locking pigtail drain was advanced into [...] discharge to return via hospital transfer to [facility], when meets criteria Resident/Fellow: Alvin Harris MD Attending: Dr. Mendiola I, Dr. Mendiola, was present throughout the procedure. I was present during the intraservice time as documented by the IR Nurse. ?? Efraín Teran DO IMG IR ORDERABLES documented in this encounter Visit Diagnoses Diagnosis Acute cholecystitis Acute cholecystitis documented in this encounter
--- OUTSIDE RECORDS SUMMARY | 2024-03-09 00:25 | XMS_ITS | Encounter Summary ---
Author Organization [facility] Address [facility] [place] [address] Care Team Providers Care Grain And Yeast Plants Supervisor Name Role Phone Unavailable Primary Care Provider Unavailabl e Reason for Referral * Diagnostic Test (Routine) - Pending Review Specialty Diagnoses / Procedures Referred By Silvana taylor Referred To Contact Radiology Diagnoses Acute cholecystitis Procedures IR Cholecystostomy Tube Placement Merissa Oakes PA [facility] [place] [address] [facility] [address] Referral ID Status Reason Start Date Expiration Date Visits Requested Visits Authorized [id number] Pending Review Specialty Service Requested 11/15/2023 05/17/2025 1 1 Reason for Visit * Diagnostic Test (Routine) - Pending Review Specialty Diagnoses / Procedures Referred By Silvana taylor Referred To Contact Radiology Diagnoses Acute cholecystitis Procedures IR Cholecystostomy Tube Placement Merissa Oakes PA [facility] [place] [address] [place] [address] Referral ID Status Reason Start Date Expiration Date Visits Requested Visits Authorized [id number] Pending Review Specialty Service Requested 11/15/2023 05/17/2025 1 1 Encounter Details Date Type Department Care Team (Latest Contact Info) Description 11/16/2023 12:36 PM EDT - 11/16/2023 11:59 PM EDT Hospital [place] [address] Efraín Teran, [facility] [place] [address] Acute cholecystitis Discharge Disposition: Home Social History [...] or any other surface. Always put a accredited farm manager on the end to keep clean. 11. If you drainage bags starts to have an odor, you can clean the bag after removing it from the tube. Turn the stopcock to off. Put on a accredited farm manager to the end of the stopcock to [...] is during regular office hours, please call [phone]. If it is after regular office hours, or on weekends or holidays, please call [phone] and ask to speak to the [employer] application internship for Interventional Radiology. XX You have received [...] relevant phone numbers on file. Referring Provider: Mreissa Oakes REASON FOR VISIT: Order Questions Answers Where will study be performed? [facility] Radiology [120] To be scheduled Next available after expected date Reason for exam and clinical history: Suspected acute cholecystitis, down/back procedure from [facility] Is the patient on anticoagulant / antiplatelet [...] Service contacted by Dr. Alexandro Smith at [facility] at 09:10 11/14 regarding the procedure request below. There are no answered order specific questions. History of Present Illness: Per chart review, Nilam Dyer is a 73 y.o. female currently [facility] for gallstone pancreatitis with rising leukocytosis, [...] 9:30 AM EST Office Visit Dermatology at [facility] [address] [place] [id number] Rama Justice MD [facility] DR [facility] MAR[facility] [place] [address] documented as of this encounter Procedures Procedure [...] Glucose, POC 94 65 - 199 mg/dL [facility] Comment: Supplemental ranges: <140 mg/dL before meals <180 mg/dL all other times of the day Blood 11/16/2023 3:18 PM EDT 11/16/2023 3:18 PM EDT Efraín Teran DO POINT OF CARE TEST O RDERARANDELL [facility] [place] [address] * IR Cholecystostomy Tube Placement (11/16/2023 2:57 [...] the tract was dilated and a 10 Romanian Fr locking pigtail drain was advanced into [...] discharge to return via hospital transfer to [facility], when meets criteria Resident/Fellow: Alvin Harris MD Attending: Dr. Mendiola I, Dr. Mendiola, was present throughout the procedure. I was present during the intraservice time as documented by the IR Nurse. ?? Efraín Teran DO IMG IR ORDERABLES * Anaerobic Culture (11/16/2023 2:35 PM EDT) Anaerobic Culture No anaerobic organisms isolated [facility] Bile 11/16/2023 2:35 PM EDT 11/16/2023 3:54 PM EDT Comment:Cholecystomy Narrative Resulting Agency Comment Spec In Lab Jose Mendiola MD MICROBIOLOGY - GENER AL ORDERABLES Performing Organization Address City/State/[facility] Co de Phone Number [facility] [place] [phone] * (ABNORMAL) Body Fluid Culture, Aerobic (11/16/2023 2:35 PM EDT) Body Fluid Culture Many Escherichia coli(A) [facility] Gram Stain Few Neutrophils seen Moderate Gram Negative Rods (A) [facility] Organism Escherichia coli(A) [facility] Bile 11/16/2023 2:35 PM EDT [...] - GENER AL ORDERABLES Performing Organization Address [facility] Co de Phone Number [facility] [place] [address] * POCT Glucose (11/16/2023 1:35 PM EDT) Glucose, POC 84 65 - 199 mg/dL [facility] Comment: Supplemental ranges: <140 mg/dL before meals <180 mg/dL all other times of the day Blood 11/16/2023 1:35 PM EDT 11/16/2023 1:35 PM EDT Efraín Teran DO POINT OF CARE TEST O RDERABLES Performing Organization Address [facility] Co de Phone Number [facility] [place] [address] documented in this encounter Visit Diagnoses Diagnosis [...]
--- OUTSIDE RECORDS SUMMARY | 2024-03-09 00:25 | XMS_ITS | Referral Summary ---
Author Organization [facility] Address [address] [place] [address] Care Team Providers Care Qualifications Examiner Name Role Phone Unknown, Provider Primary Care Provider Encounters Date Type Department Care Team Description 02/29/2024 Lab Requisition [facility] Pathology & Laboratory [address] [address] Outr Resulting Lab, Provider 02/24/2024 Lab Requisition [facility] Pathology & Laboratory [address] [address] Outr Resulting Lab, Provider from Last 3 [...] C Antibody Negative Negative 02/29/2024 23:10 EDT [facility] Blood VENOUS BLOOD / Unknown 02/29/2024 14:40 EDT 02/29/2024 21:40 EDT Provider Outr Resulting Lab CHEMISTRY & BLOOD GAS ORDERABLES Performing Organization Address City/[facility]/ZIP Co de Phone Number [facility] [address] [place] [phone] * HEPATITIS B CORE ANTIBODY (TOTAL) (02/29/2024 14:40 EDT) Hepatitis B Core Ab, Total Negative Negative 02/29/2024 23:13 EDT [facility] Blood VENOUS BLOOD / Unknown 02/29/2024 14:40 EDT 02/29/2024 21:40 EDT Provider Outr Resulting Lab CHEMISTRY & BLOOD GAS ORDERABLES Performing Organization Address City/[facility]/ZIP Co de Phone Number [facility] [address] [place] [phone] * HEPATITIS B SURFACE ANTIBODY (02/29/2024 14:40 EDT) Hep B Surface Ab, Quantitative <3.1 See Note mIU/mL 02/29/2024 22:30 EDT [facility] Comment: Reference Range for Hep B Surface Ab, Quant: Positive: >= 10.0 mIU/mL Negative: ??< 10.0 mIU/mL Patient is presumed to not be immune to infection with Hepatitis B Virus. Hep B Surface Ab, Qualitative Negative See Note 02/29/2024 22:30 EDT [facility] Comment: Reference Range for Hep B Surface Ab, Qual: Unvaccinated: ??Negative Vaccinated: ??Positive Blood VENOUS BLOOD / Unknown 02/29/2024 14:40 EDT 02/29/2024 21:40 EDT Provider Outr Resulting Lab CHEMISTRY & BLOOD GAS ORDERABLES Performing Organization Address City/[facility]/ZIP Co de Phone Number [facility] [address] [place], [place] [phone] * HEPATITIS B SURFACE ANTIGEN (02/29/2024 14:40 EDT) Hep B Surface Ag Negative Negative 02/29/2024 22:44 EDT [facility] Blood VENOUS BLOOD / Unknown 02/29/2024 14:40 EDT 02/29/2024 21:40 EDT Provider Outr Resulting Lab CHEMISTRY & BLOOD GAS ORDERABLES Performing Organization Address [facility] Co de Phone Number [facility] [address] [place], [place] [phone] * QUANTIFERON MITOGEN (PERFORMABLE) (02/23/2024 13:40 EDT) Blood VENOUS BLOOD / Unknown 02/23/2024 13:40 EDT 02/24/2024 17:50 EDT Provider Outr Resulting Lab IMMUNOLOGY A ND SEROLOGY ORDERABLES Performing Organization Address City/[facility]/ZIP Co de Phone Number [facility] [address] [place], [place] [phone] * QUANTIFERON TB2 (PERFORMABLE) (02/23/2024 13:40 EDT) Blood VENOUS BLOOD / Unknown 02/23/2024 13:40 EDT 02/24/2024 17:50 EDT Provider Outr Resulting Lab IMMUNOLOGY A ND SEROLOGY ORDERABLES Performing Organization Address City/[facility]/ZIP Co de Phone Number [facility] [address] [place] [address] * QUANTIFERON TB1 (PERFORMABLE) (02/23/2024 13:40 EDT) Blood VENOUS BLOOD / Unknown 02/23/2024 13:40 EDT 02/24/2024 17:50 EDT Provider Outr Resulting Lab IMMUNOLOGY A ND SEROLOGY ORDERABLES Performing Organization Address [facility] de Phone Number [facility] [address] [place] [address] * QUANTIFERON NIL (PERFORMABLE) (02/23/2024 13:40 EDT) Blood VENOUS BLOOD / Unknown 02/23/2024 13:40 EDT 02/24/2024 17:50 EDT Provider Outr Resulting Lab IMMUNOLOGY A ND SEROLOGY ORDERABLES Performing Organization Address [facility] de Phone Number [facility] [address] [place] [address] * QUANTIFERON INTERPRETATION (PERFORMABLE) (02/23/2024 13:40 EDT) [facility] Quantiferon Interpretation Negative Negative 02/27/2024 13:45 EDT [facility] Comment:No interferon-gamma response to M. tuberculosis antigens was detected. ??Infection with M. tuberculosis is unlikely. A single negative result does not exclude infection with M. tuberculosis. ??In patients at high risk for M. tuberculosis infection, a second test should be considered. TB1 Ag minus Nil 0.01 IU/ml 02/27/20 13:45 EDT [facility] TB2 Ag minus Nil 0.00 IU/mL 02/27/20 13:45 EDT [facility] Blood VENOUS BLOOD / Unknown 02/23/2024 13:40 EDT 02/27/2024 12:40 EDT Provider Outr Resulting Lab IMMUNOLOGY A ND SEROLOGY ORDERABLES Performing Organization Address [facility] de Phone Number [facility] [address] [place], [place] [phone] from Last 3 Months Care Teams Qualifications Examiner Relationship Specialty Start Date End Date Unknown, Provider, PCP - General 11/19/23
--- OUTSIDE RECORDS SUMMARY | 2024-03-09 00:25 | XMS_ITS | Encounter Summary ---
Author Organization [facility] Address [address] [place] [address] Care Team Providers Care Experimental Mechanic Spacecraft Name Role Phone Unknown, Provider Primary Care Provider [phone] Encounter Details Date Type Department Care Team (Late st Contact Info) Description 10/17/2023 Lab Requisition [facility] Pathology & Laboratory Medicine - [address] [address] Outr Resulting Lab, Provider Social History Tobacco [...] 295 mOsm/kg 10/17/2023 16:57 EDT [facility] Blood VENOUS BLOOD / Unknown 10/16/2023 13:39 EDT 10/17/2023 16:27 EDT Provider Outr Resulting Lab CHEMISTRY & BLOOD GAS ORDERABLES [facility] [address] [place], [place] [address] documented in this encounter Visit Diagnoses Not on filedocumented in this encounter Care Teams Experimental Mechanic Spacecraft Relationship Specialty Start Date End Date Unknown, Provider, PCP - General 11/19/23 documented as of this encounter
--- OUTSIDE RECORDS SUMMARY | 2024-03-09 00:25 | XMS_ITS | Encounter Summary ---
Author Organization [facility] Address [facility] [place] [address] Care Team Providers Care Telecom Engineer Name Role Phone Unavailable Primary Care Provider Unavailabl e Encounter Details Date Type Department Care Team (Late st Contact Info) Description 11/11/2023 12:05 AM EDT Ancillary Procedure Radiology Library at [facility] [place] [place] [address] Morgan Beauchamp MD [facility] DIAGNOSTIC RADIOLOGY [id number] Social History Tobacco Use Types Packs/Day Years [...] 9:30 AM EST Office Visit Dermatology at [facility] [address] [place] [address] Rama Justice MD [facility] DR [facility] [address] documented as of this encounter Procedures Procedure Name Priority Date/Time Associated Diagnosis Comments FILM LIBRARY STORAGE ONLY CT ABDOMEN Routine 11/11/2023 12:05 AM EDT documented in this encounter Results * Film Library- Storage Only CT Abdomen (11/11/2023 12:05 AM EDT) Narrative [facility] - 11/15/2023 9:12 AM EDT This exam is auto-finalizing. It's purpose is for storage only. Morgan Beauchamp MD IM FILM LIBRARY ORD ERABLES Performing Organization Address City/State/[facility] Co de Phone Number [place], [place] documented in this encounter Visit Diagnoses Not on filedocumented in this encounter
--- OUTSIDE RECORDS SUMMARY | 2024-03-09 00:25 | XMS_ITS | Encounter Summary ---
Author Organization [facility] Address [address] [place] [address] Care Team Providers Care Console Manager Name Role Phone Unknown, Provider Primary Care Provider Encounter Details Date Type Department Care Team (Late st Contact Info) Description 09/05/2023 Lab Requisition [facility] Pathology & Laboratory Medicine - [address] [address] Outr Resulting Lab, Provider Social History Tobacco [...] 201 - 352 mg/dL 09/06/2023 9:56 EDT [facility] Blood VENOUS BLOOD / Unknown 09/05/2023 6:09 EDT 09/05/2023 16:50 EDT Provider Outr Resulting Lab CHEMISTRY & BLOOD GAS ORDERABLES [facility] [address] [place], [place] [address] documented in this encounter Visit Diagnoses Not on filedocumented in this encounter Care Teams Console Manager Relationship Specialty Start Date End Date Unknown, ProviderMD PCP - General 11/19/23 documented as of this encounter
--- NOTE | 2024-03-09 09:30 | DI.US_ITS ---
APPROVED REPORT EXAM: Comprehensive 2D, Doppler, and color-flow Echocardiogram Patient Location: Out-Patient Foundation Relations Manager: Kwame Kathleen RDCS (AE) Indications: Cor pulmonale, anasarca, acute on chronic CHF, edema Other Information Technically limited study due to body habitus. Conclusion Mild concentric left ventricular hypertrophy. Ejection fraction is 50 percent. There is global hypo kinesis Normal right ventricular size and function Both atria are normal in size Mild mitral annular calcification There is no hemodynamically significant valvular disease Ascending aorta measures 3.87 cm Wall motion Left Ventricle The left ventricle is normal size. Left ventricular systolic function is mildly decreased. Mild tomas ntric left ventricular hypertrophy. There is global hypokinesis of the left ventricle. There is no ve ntricular septal defect visualized. LVEF is 50%. Right Ventricle The right ventricle is normal size. The right ventricular systolic function is normal. Atria The left atrium size is normal. The right atrium size is normal. The interatrial septum is intact wit h no evidence for an atrial septal defect. Aortic Valve The aortic valve is normal in structure. Aortic valve is trileaflet. There is no aortic valvular sten osis. No aortic regurgitation is present. Mitral Valve Mild mitral annular calcification. No evidence of mitral valve stenosis. Trace mitral regurgitation. Tricuspid Valve The tricuspid valve is normal in structure. There is no tricuspid valve stenosis. Trace tricuspid reg urgitation. Unable to assess PA pressure. Pulmonic Valve The pulmonary valve is normal in structure. There is no pulmonic valvular stenosis. Trace pulmonic re gurgitation. Great Vessels The aortic root is normal in size. The ascending aorta is mildly dilated. IVC is normal in size and c ollapses >50% with inspiration. Pericardium There is no pericardial effusion. 2D Dimensions IVSD d PLAX 1.21 cm F: 0.6-1.0 Ao Root d 2.78 cm F: 2.7 - 3.3 LVPW d PLAX 1.20 cm F: 0.6 - 1.0 Ao Asc Diam d 3.87 cm F: 2.3 - 3.1 LVID d PLAX 4.84 cm F: 3.8 - 5.2 LVDs 3.60 cm F: 2.2 - 3.5 LV EF Teichholz 50.4 % FS 25.64 % LV EDV (Teich) 109.7 mL LV ESV (Teich) 54.4 mL Stroke Vol Index (Teich) 26.32 M-Mode TAPSE 1.82 cm (M/F) >1.7 Auto EF LV EDV A4C 110.0 mL LV EDV A2C 95.0 mL LV EDV BP 106.0 mL LV ESV A4C 55.9 mL LV ESV A2C 46.6 mL LV ESV BP 50.0 mL LVEF(%) A4C 49.1 % LVEF(%) A2C 51.0 % LVEF(%) BP 52.8 % LV SV A4C 54.0 ml LV SV A2C 48.5 ml LV SV BP 56.0 ml LV CO A4C 4.5 L/min LV CO A2C 3.5 L/min LV CO BP 4.0 L/min HR A4C 83.72 BPM HR A2C 71.29 BPM LV EDV Index (BP) LA Volume LA Length A4C 3.7 cm LA Length A2C 4.9 cm LA Area A4C s 12.57 cm2 LA Area A2C s 12.22 cm2 LA Vol A4C A-L 36.37 mL LA Vol A2C A-L 26.04 mL LA Vol Biplane A-L 35.4 mL LA Vol/BSA A4C A-L LA Vol/BSA A2C A-L LA Vol/BSA BP A-L 16.8 mL/m2 LA Vol A4C MOD 33.3 mL LA Vol A2C MOD 25.0 mL LA Vol BP MOD 32.7 mL RA Volume RA Area A4C 7.5 cm2 RA ESV A4C (A-L) 12.0mL RA Vol/BSA A4C A-L RA Length A4C 4.0 cm RA ESV A4C (MOD) 11.4mL LV Diastology MV E' medial 0.056 (>0.07 m/s) MV E Vmax 0.60 (0.4-1.3 m/s) MV E/E' MED 10.73 (<14) MV A Vmax 1.00 (0.4-1.3 m/s) MV E' lateral 0.068 (>0.1 m/s) E/A Ratio 0.6 MV E/E' LAT 8.90 (<14) MV E' Average 0.062 m/s MV E/E'(average) 9.73 Aortic Valve AoV Vmax 1.03 m/s LVOT Vmax 0.80 m/s AoV Peak Grad 4.2 mmHg LVOT Peak Grad 2.6 mmHg AoV Area (Vmax) 2.34 cm2 LVOT VTI 0.167 m AoV VTI 0.205 m LVOT Mean Grad 1.5 mmHg AoV Mean José Miguel. 0.79 m/s LVOT SV 50.42 mL AoV Mean Grad 2.8 mmHg LVOT Diam s 1.95 cm AoV Area (VTI) 2.46 cm2 AV Regurg Peak Gr. 4.25 mmHg Velocity Ratio 0.78 Mitral Valve MV Vmax TIPS 1.14 m/s MV Mean Grad 2.0 (<2mmHg) MV VTI 0.298 m Pulmonary Valve PV Vmax 0.96 (0.5-1.5 m/s) RVOT Vmax 0.70 m/s PV Peak Grad 3.7 mmHg RVOT Peak Gr. 2.0 mmHg PV Mean José Miguel 0.65 m/s RVOT VTI 0.147 m PV Mean Grad 1.9 mmHg RVOT Mean Gr. 1.2 mmHg
== END 2024-03-09 00:43 ==
LOC: DI 00:23
PROVIDERS: PCP Nurse Practitioner Gerontology; Visit Provider Internal Medicine
DX: I50.43 Acute on chronic combined systolic (congestive) and diastolic (congestive) heart failure (principal); R60.1 Generalized edema
CPT/HCPCS: 93306

== ENCOUNTER → 2024-03-15 10:32 | Outpatient (BNVA) | payer MEDICARE, MEDICAID, SELFPAY | PROVIDERS: PCP Nurse Practitioner Gerontology; Referring Provider Nurse Practitioner Gerontology; Visit Provider Physician Assistant Surgical | DX: R05.3 Chronic cough (principal); R13.10 Dysphagia, unspecified | CPT/HCPCS: 99214 ==

== ENCOUNTER 2024-03-16 15:10 | Emergency (ER) | payer MEDICARE, MEDICAID, SELFPAY ==
--- NOTE | 2024-03-16 15:00 | RT.EKG_ITS ---
APPROVED REPORT Exam: Resting ECG Reason for Exam: dizziness Patient Location: E HR:89 bpm ECG Measurements Heart Rate 89 AXIS [place] 182 P 53 QRSd 132 QRS -66 QT 406 T 54 QTc 495 Conclusion Sinus rhythm...normal P axis, V-rate 60- 99 Left bundle branch block...QRSd>120, broad/notched R sinus rhtyhm, left axis, LBBB largely unchanged from prior
[2024-03-16 15:13] VITALS: BP 118/64; PULSE 86; RESP 16; TEMP 36.7; O2SAT 92
--- OUTSIDE RECORDS SUMMARY | 2024-03-16 15:13 | XMS_ITS | Encounter Summary ---
Author Organization [facility] Address [facility] [place] [address] Care Team Providers Care Sitecore Developer Name Role Phone Unavailable Primary Care Provider Unavailabl e Encounter Details Date Type Department Care Team (Late st Contact Info) Description 03/05/2024 Telephone Dermatology at [facility] [address] [place] [address] Rama Justice MD [facility] ANN MARIE [place] [address] Social History Tobacco Use Types [...] submit a PA? She is in a senior living and I do not believe they have a dermatologsit to submit the prescription. Thank you! documented in this encounter Plan of Treatment Upcoming Encounters Date Type Department Care Team (Late st Contact Info) Description 05/29/2024 9:30 AM EST Office Visit Dermatology at [facility] [address] [place] [address] Rama Justice MD [facility] DR ANN MAR[facility] [place] [address] documented as of this encounter Visit Diagnoses Not on filedocumented in this encounter
--- OUTSIDE RECORDS SUMMARY | 2024-03-16 15:13 | XMS_ITS | Encounter Summary ---
Author Organization [place] [address] Care Team Providers Care Doctor Of Osteopathy Name Role Phone Unavailable Primary Care Provider Unavailabl e Reason for Referral * Diagnostic Test (Routine) - Pending Review Specialty Diagnoses / Procedures Referred By Silvana taylor Referred To Contact Radiology Diagnoses Acute cholecystitis Procedures IR Cholecystostomy Tube Placement Merissa Oakes PA [facility] DR RADIOLOGY [place] [address] [place] [address] Referral ID Status Reason Start Date Expiration Date Visits Requested Visits Authorized [id number] Pending Review Specialty Service Requested 11/15/2023 05/17/2025 1 1 Encounter Details Date Type Department Care Team (Late st Contact Info) Description 11/15/2023 [place] [address] Merissa Oakes PA [facility] DR RADIOLOGY [place] [address] Acute cholecystitis Social History Tobacco [...] Service contacted by Dr. Alexandro Smith at [facility] at 09:10 11/14 regarding the procedure request below. There are no answered order specific questions. History of Present Illness: Per chart review, Nilam Dyer is a 73 y.o. female currently admittedto [facility] for gallstone pancreatitis with rising leukocytosis, [...] [facility] [address] [place] [address] Rama Justice MD [facility] DR ANN MARIE LEBLANC-DERMATOLOG[place] [address] documented as of this encounter Results * [...] the tract was dilated and a 10 [place] Fr locking pigtail drain was advanced into [...] discharge to return via hospital transfer to [facility], when meets criteria Resident/Fellow: Alvin Harris MD Attending: Dr. Mendiola I, Dr. Mendiola, was present throughout the procedure. I was present during the intraservice time as documented by the IR Nurse. ?? Efraín Teran DO IMG IR ORDERABLES documented in this encounter Visit Diagnoses Diagnosis Acute cholecystitis Acute cholecystitis documented in this encounter
--- OUTSIDE RECORDS SUMMARY | 2024-03-16 15:13 | XMS_ITS | Encounter Summary ---
Author Organization [facility] Address [facility] [place] [address] Care Team Providers Care Hand Cooper Helper Name Role Phone Unavailable Primary Care Provider Unavailabl e Encounter Details Date Type Department Care Team (Late st Contact Info) Description 02/28/2024 Telephone Dermatology at [facility] [address] [place] [phone] Rama Justice MD [facility] [address] [place] [address] Social History Tobacco Use Types Packs/Day Years Used Date Smoking Tobacco: Never Assessed Sex and Gender Information Value Date Recorded Sex Assigned at Not on file Gender Identity Not on file Sexual Orientation Not on file documented as of this encounter Miscellaneous Notes * Telephone Encounter - Sandra GandhiBELEM - 02/28/2024 2:30 PM EDT Faith called the office and asked what labs are needed for Nilam as she resides at the [facility]. Faith mentioned they can see some labs have been done at the [facility]. We have not received any labs at [...] the results faxed to the office @ [phone]. Faxed lab orders today @ 2:48 PM to [facility] where Nilam resides fax # and phone # is phone number is [phone] Quant Gold Hep C Antibody Hep B Core Antibody Hep B Surface Antibody Hep B Surface Antigen documented in this encounter Plan of Treatment Upcoming Encounters Date Type Department Care Team (Late st Contact Info) Description 05/29/2024 9:30 AM EST Office Visit Dermatology at [facility] [address] [place] [address] Rama Justice MD [facility] [address] [place] [address] documented as of this encounter Visit Diagnoses Not on filedocumented in this encounter
--- OUTSIDE RECORDS SUMMARY | 2024-03-16 15:13 | XMS_ITS | Encounter Summary ---
Author Organization [facility] Address [address] [place] [address] Care Team Providers Care Co Founder And Chairman Name Role Phone Unknown, Provider Primary Care Provider Encounter Details Date Type Department Care Team (Late st Contact Info) Description 02/24/2024 Lab Requisition [facility] Pathology & Laboratory Medicine - [facility] [address] [place] [address] Outr Resulting Lab, Provider Social History Tobacco [...] Quantiferon Interpretation Negative Negative 02/27/2024 13:45 EDT [facility] Comment:No interferon-gamma response to M. tuberculosis antigens was detected. ??Infection with M. tuberculosis is unlikely. A single negative result does not exclude infection with M. tuberculosis. ??In patients at high risk for M. tuberculosis infection, a second test should be considered. TB1 Ag minus Nil 0.01 IU/ml 02/27/20 13:45 EDT [facility] TB2 Ag minus Nil 0.00 IU/mL 02/27/20 13:45 EDT [facility] Blood VENOUS BLOOD / Unknown 02/23/2024 13:40 EDT 02/27/2024 12:40 EDT Provider Outr Resulting Lab IMMUNOLOGY A ND SEROLOGY ORDERABLES Performing Organization Address City/[facility]/ZIP Co de Phone Number [facility] [address] [place], [place] [phone] * QUANTIFERON MITOGEN (PERFORMABLE) (02/23/2024 13:40 EDT) Blood VENOUS BLOOD / Unknown 02/23/2024 13:40 EDT 02/24/2024 17:50 EDT Provider Outr Resulting Lab IMMUNOLOGY A ND SEROLOGY ORDERABLES Performing Organization Address City/[facility] Co de Phone Number [facility] [address], [place] [phone] * QUANTIFERON TB2 (PERFORMABLE) (02/23/2024 13:40 EDT) Blood VENOUS BLOOD / Unknown 02/23/2024 13:40 EDT 02/24/2024 17:50 EDT Provider Outr Resulting Lab IMMUNOLOGY A ND SEROLOGY ORDERABLES Performing Organization Address [facility]/ZIP Co de Phone Number [facility] [address], [place] [phone] * QUANTIFERON TB1 (PERFORMABLE) (02/23/2024 13:40 EDT) Blood VENOUS BLOOD / Unknown 02/23/2024 13:40 EDT 02/24/2024 17:50 EDT Provider Outr Resulting Lab IMMUNOLOGY A ND SEROLOGY ORDERABLES Performing Organization Address [facility] Co de Phone Number [facility] [address] [place], [place] [phone] * QUANTIFERON NIL (PERFORMABLE) (02/23/2024 13:40 EDT) Blood VENOUS BLOOD / Unknown 02/23/2024 13:40 EDT 02/24/2024 17:50 EDT Provider Outr Resulting Lab IMMUNOLOGY A ND SEROLOGY ORDERABLES Performing Organization Address [facility] Co de Phone Number [facility] [address] [place], [place] [phone] documented in this encounter Visit Diagnoses Not on filedocumented in this encounter Care Teams Co Founder And Chairman Relationship Specialty Start Date End Date Unknown, Provider, PCP - General 11/19/23 documented as of this encounter
--- OUTSIDE RECORDS SUMMARY | 2024-03-16 15:13 | XMS_ITS | Encounter Summary ---
Author Organization [facility] Address [facility] [place] [address] Care Team Providers Care Restaurant Bartender Name Role Phone Unavailable Primary Care Provider Unavailabl e Encounter Details Date Type Department Care Team (Late st Contact Info) Description 11/14/2023 Ancillary Procedure Radiology Library at [facility] [place] [address] Morgan Beauchamp MD [facility] [place] [address] Social History Tobacco Use Types Packs/Day Years [...] 9:30 AM EST Office Visit Dermatology at [facility] [address] [place] [address] Rama Justice MD [facility] DR [address] [place] [address] documented as of this encounter Procedures Procedure Name Priority Date/Time Associated Diagnosis Comments FILM LIBRARY STORAGE ONLY CT ABDOMEN Routine 11/14/2023 12:00 AM EDT documented in this encounter Results * Film Library- Storage Only CT Abdomen (11/14/2023 12:00 AM EDT) Narrative [facility] - 11/15/2023 9:10 AM EDT This exam is auto-finalizing. It's purpose is for storage only. Morgan Beauchamp MD IM FILM LIBRARY ORD ERABLES Performing Organization Address City/State/[facility] Co de Phone Number [place], [place] documented in this encounter Visit Diagnoses Not on filedocumented in this encounter
--- OUTSIDE RECORDS SUMMARY | 2024-03-16 15:13 | XMS_ITS | Encounter Summary ---
Author Organization [facility] Address [facility] [place] [address] Care Team Providers Care Tire Rebuilder Name Role Phone Unavailable Primary Care Provider Unavailabl e Encounter Details Date Type Department Care Team (Late st Contact Info) Description 11/29/2023 2:20 AM EDT Ancillary Procedure Radiology Library at [facility] [place] [address] Efraín Deras MD [facility] [place] [address] Social History Tobacco Use Types Packs/Day Years [...] 9:30 AM EST Office Visit Dermatology at [place] [address] [place] [address] Rama Justice MD [facility] DR [address] [place] [address] documented as of this encounter Procedures Procedure Name Priority Date/Time Associated Diagnosis Comments FILM LIBRARY STORAGE ONLY CT CHEST ABDOMEN PELVIS Routine 11/29/2023 2:17 AM EDT documented in this encounter Results * Film Library- Storage Only CT Chest Abdomen Pelvis (11/29/2023 2:17 AM EDT) Narrative [facility] - 11/29/2023 2:17 AM EDT This exam is auto-finalizing. It's purpose is for storage only. Efraín Deras MD [facility] FILM LIBRARY ORD ERABLES Performing Organization Address City/State/[facility] Co de Phone Number KE HAYNES [place], [place] documented in this encounter Visit Diagnoses Not on filedocumented in this encounter
--- OUTSIDE RECORDS SUMMARY | 2024-03-16 15:13 | XMS_ITS | Encounter Summary ---
Author Organization [facility] Address [address] [place] [address] Care Team Providers Care Tool And Die Machinist Name Role Phone Unknown, Provider Primary Care Provider Encounter Details Date Type Department Care Team (Late st Contact Info) Description 10/17/2023 Lab Requisition [facility] Pathology & Laboratory Medicine - [address] [address] Outr Resulting Lab, Provider Social History Tobacco [...] 1,150 mOsm/kg 10/17/2023 16:39 EDT [facility] Urine URINE / Unknown 10/16/2023 1 4:38 EDT 10/17/2023 16:27 EDT Provider Outr Resulting Lab URINALYSIS O RDERABLES [facility] [address] [place], [place] [address] documented in this encounter Visit Diagnoses Not on filedocumented in this encounter Care Teams Tool And Die Machinist Relationship Specialty Start Date End Date Unknown, Provider, PCP - General 11/19/23 documented as of this encounter
--- OUTSIDE RECORDS SUMMARY | 2024-03-16 15:13 | XMS_ITS | Encounter Summary ---
Author Organization [facility] Address [facility] [place] [address] Care Team Providers Care Guide Dog Mobility Instructor Name Role Phone Unavailable Primary Care Provider Unavailabl e Encounter Details Date Type Department Care Team (Late st Contact Info) Description 02/28/2024 Telephone Dermatology at [facility] [address] [place] [address] Rama Justice MD [facility] [address] [place] [place] [address] Social History Tobacco Use Types [...] a phone call from Faith at the [facility] where Nilam Dyer lives. She was wondering if the labs that Dr. Justice needs could be drawn at their facility and if we can fax over the orders? The fax # is [phone]. If anything further is needed their phone number is [phone] (ask for Faith) documented in this encounter Plan of Treatment Upcoming Encounters Date Type Department Care Team (Late st Contact Info) Description 05/29/2024 9:30 AM EST Office Visit Dermatology at [facility] [address] [place] [address] Rama Justice MD [facility] [address] [place] [address] documented as of this encounter Visit Diagnoses Not on filedocumented in this encounter
--- OUTSIDE RECORDS SUMMARY | 2024-03-16 15:13 | XMS_ITS | Encounter Summary ---
Author Organization [facility] Address [facility] [place] [address] Care Team Providers Care Braid Maker Name Role Phone Unavailable Primary Care Provider Unavailabl e Encounter Details Date Type Department Care Team (Late st Contact Info) Description 03/06/2024 Telephone Dermatology at [facility] [address] [place] [phone] Rama Justice MD [facility] DR [address] [place] [address] Social History Tobacco Use Types Packs/Day Years Used Date Smoking Tobacco: Never Assessed Sex and Gender Information Value Date Recorded Sex Assigned at Not on file Gender Identity Not on file Sexual Orientation Not on file documented as of this encounter Miscellaneous Notes * Telephone Encounter - Rama Justice MD - 03/07/2024 3:01 PM EDT Letter with dosing info signed to be mailed with labs results from media tab * Telephone Encounter - Mariella Carlos LPN - 03/06/2024 8:31 AM EDT Note initiated by: MARIELLA CARLOS LPN @ 8:30 AM. Placed a call to the snf of Nilam. Spoke with JANET Martinez and discussed the [...] # is Att: Michelle. There is an HVAC TECHNICIAN RESIDENTIAL that is in the facility that views [...] submit a PA? She is in a snf and I do not believe they have [...] 9:30 AM EST Office Visit Dermatology at [facility] [address] [place] [address] Rama Justice MD [facility] DR [address] [place] [place] [address] documented as of this encounter Visit Diagnoses Not on filedocumented in this encounter
--- OUTSIDE RECORDS SUMMARY | 2024-03-16 15:13 | XMS_ITS | Clinical Summary ---
Author Organization [facility] Address [facility] [place] [address] Care Team Providers Care Physical Therapy Aide Name Role Phone Unavailable Primary Care Provider [...] Team Description 03/06/2024 Specialty [place] [phone] Basilio Rausch CPHT 03/06/2024 Telephone Dermatology at [facility] [address] [place] [address] Rama Justice MD 03/05/2024 Telephone Dermatology at [facility] [address] [place] [address] Rama Justice MD 03/01/2024 [facility] [address] [place] [address] Rama Justice MD 02/28/2024 [facility] [address] [place] [address] Rama Justice MD 02/28/2024 [facility] [address] [place] [address] Rama Justice MD 02/24/2024 Transcribe Orders Dermatology at [facility] [address] [place] [address] Rama Justice MD Hidradenitis suppurativa; High risk medication use 02/23/2024 Telephone Dermatology at [facility] [address] [place] [address] Rama Justice MD 02/14/2024 11:00 AM EDT Office Visit Dermatology at [facility] [address] [place] [address] Rama Justice MD Hidradenitis suppurativa; Intertrigo from [...] 9:30 AM EST Office Visit Dermatology at [facility] [address] [place] [address] Rama Justice MD [facility] [address] [place] [address] Health Maintenance Due Date Last Done Comments CT Colonography 1949 Colonoscopy 1949 Colorectal Cancer Screening 1949 FIT DNA 1949 FIT 1949 Sigmoidoscopy (10 year) with FIT yearly 1949 Sigmoidoscopy 1949 Hepatitis C Screening 10/08/1967 Tetanus/Diphtheria/Pertussis Vaccines (1 - Tdap) 10/07 Breast Cancer Share Decision Needed 1989 Breast [...]
--- OUTSIDE RECORDS SUMMARY | 2024-03-16 15:13 | XMS_ITS | Encounter Summary ---
Author Organization [facility] Address [facility] [place] [address] Care Team Providers Care Railroad Car Cleaning Supervisor Name Role Phone Unavailable Primary Care [...] 9:30 AM EST Office Visit Dermatology at [facility] [address] [place] [address] Rama Justice MD [facility] DR [address] [place] [address] documented as of this encounter Visit Diagnoses Not on filedocumented in this encounter
--- OUTSIDE RECORDS SUMMARY | 2024-03-16 15:13 | XMS_ITS | Encounter Summary ---
Author Organization [facility] Address [facility] [place] [address] Care Team Providers Care Strawberry Grower Name Role Phone Unavailable Primary Care Provider Unavailabl e Reason for Visit * Reason Comments Prior Authorization Cosentyx Sensoready Pens. 150mg/mL x 2 Encounter Details Date Type Department Care Team (Late st Contact Info) Description 03/06/2024 Specialty [place] [address] Basilio Rausch CPHT Social History Tobacco Use [...] MG/2 PENS (150 MG/ML) SUBCUTANEOUS Medication ID: [id number] Approval Dates: 06/20/2023 to 08/27/2024 Insurance requirements/notes: None Other Notes: None Case/Reference #: Approval notification Received via: Telephone Copay: $0.00 Copay assistance: None Copay Notes: Insurance mandated Pharmacy: [facility]: Yes Patient Notified: To be contacted by [facility] for consult Pharmacy staff will be reaching out to the patient to inform them of their medication[facility]. If applicable, a pharmacist will speak with the patient to offer our specialty pharmacy services and to arrange delivery of their medication. Basilio Rausch CPHT 03/06/24 8:45 AM documented in this encounter Plan of Treatment Upcoming Encounters Date Type Department Care Team (Late st Contact Info) Description 05/29/2024 9:30 AM EST Office Visit Dermatology at [facility] [address] [place] [address] Rama Justice MD [facility] DR [address] LEBLANC-[place] [address] documented as of this encounter Visit Diagnoses Not on filedocumented in this encounter
--- OUTSIDE RECORDS SUMMARY | 2024-03-16 15:13 | XMS_ITS | Encounter Summary ---
Author Organization [facility] Address [facility] [place] [address] Care Team Providers Care Filament Coil Winder Name Role Phone Unavailable Primary Care Provider Unavailabl e Encounter Details Date Type Department Care Team (Late st Contact Info) Description 12/06/2023 [place] [phone] Jose Mendiola MD [facility] DR [place]AG[place] [address] Social History Tobacco Use Types Packs/Day Years [...] PLACEMENT 11/16/2023 IR Cholecystostomy Tube Placement 11/16/2023 [facility] Medications: Benzonatate 200 mg [...] 9:30 AM EST Office Visit Dermatology at [facility] [address] [place] [address] Rama Justice MD [facility] DR [address] [place] [address] documented as of this encounter Visit Diagnoses Not on filedocumented in this encounter
--- OUTSIDE RECORDS SUMMARY | 2024-03-16 15:13 | XMS_ITS | Referral Summary ---
Author Organization [facility] Address [address] [place] [address] Care Team Providers Care Imager Name Role Phone Unknown, Provider Primary Care Provider Encounters Date Type Department Care Team Description 02/29/2024 Lab Requisition [facility] Pathology & Laboratory [address] [address] Outr Resulting Lab, Provider 02/24/2024 Lab Requisition [facility] Pathology & Laboratory [address] [address] Outr Resulting Lab, Provider from Last 3 [...] C Antibody Negative Negative 02/29/2024 23:10 EDT [facility] Blood VENOUS BLOOD / Unknown 02/29/2024 14:40 EDT 02/29/2024 21:40 EDT Provider Outr Resulting Lab CHEMISTRY & BLOOD GAS ORDERABLES Performing Organization Address City/[facility]/ZIP Co de Phone Number [facility] [address] [place] [address] * HEPATITIS B CORE ANTIBODY (TOTAL) (02/29/2024 14:40 EDT) Hepatitis B Core Ab, Total Negative Negative 02/29/2024 23:13 EDT [facility] Blood VENOUS BLOOD / Unknown 02/29/2024 14:40 EDT 02/29/2024 21:40 EDT Provider Outr Resulting Lab CHEMISTRY & BLOOD GAS ORDERABLES Performing Organization Address City/[facility]/ZIP Co de Phone Number [facility] [address] [place] [address] * HEPATITIS B SURFACE ANTIBODY (02/29/2024 14:40 EDT) Hep B Surface Ab, Quantitative <3.1 See Note mIU/mL 02/29/2024 22:30 EDT [facility] Comment: Reference Range for Hep B Surface Ab, Quant: Positive: >= 10.0 mIU/mL Negative: ??< 10.0 mIU/mL Patient is presumed to not be immune to infection with Hepatitis B Virus. Hep B Surface Ab, Qualitative Negative See Note 02/29/2024 22:30 EDT [facility] Comment: Reference Range for Hep B Surface Ab, Qual: Unvaccinated: ??Negative Vaccinated: ??Positive Blood VENOUS BLOOD / Unknown 02/29/2024 14:40 EDT 02/29/2024 21:40 EDT Provider Outr Resulting Lab CHEMISTRY & BLOOD GAS ORDERABLES Performing Organization Address City/[facility]/ZIP Co de Phone Number [facility] [address] [place], [place] [phone] * HEPATITIS B SURFACE ANTIGEN (02/29/2024 14:40 EDT) Hep B Surface Ag Negative Negative 02/29/2024 22:44 EDT [facility] Blood VENOUS BLOOD / Unknown 02/29/2024 14:40 EDT 02/29/2024 21:40 EDT Provider Outr Resulting Lab CHEMISTRY & BLOOD GAS ORDERABLES Performing Organization Address [facility] Co de Phone Number [facility] [address] [place], [place] [phone] * QUANTIFERON MITOGEN (PERFORMABLE) (02/23/2024 13:40 EDT) Blood VENOUS BLOOD / Unknown 02/23/2024 13:40 EDT 02/24/2024 17:50 EDT Provider Outr Resulting Lab IMMUNOLOGY A ND SEROLOGY ORDERABLES Performing Organization Address City/[facility]/ZIP Co de Phone Number [facility] [address] [place], [place] [phone] * QUANTIFERON TB2 (PERFORMABLE) (02/23/2024 13:40 EDT) Blood VENOUS BLOOD / Unknown 02/23/2024 13:40 EDT 02/24/2024 17:50 EDT Provider Outr Resulting Lab IMMUNOLOGY A ND SEROLOGY ORDERABLES Performing Organization Address City/[facility]/ZIP Co de Phone Number [facility] [address] [place] [address] * QUANTIFERON TB1 (PERFORMABLE) (02/23/2024 13:40 EDT) Blood VENOUS BLOOD / Unknown 02/23/2024 13:40 EDT 02/24/2024 17:50 EDT Provider Outr Resulting Lab IMMUNOLOGY A ND SEROLOGY ORDERABLES Performing Organization Address [facility] de Phone Number [facility] [address] [place] [address] * QUANTIFERON NIL (PERFORMABLE) (02/23/2024 13:40 EDT) Blood VENOUS BLOOD / Unknown 02/23/2024 13:40 EDT 02/24/2024 17:50 EDT Provider Outr Resulting Lab IMMUNOLOGY A ND SEROLOGY ORDERABLES Performing Organization Address [facility] de Phone Number [facility] [address] [place] [address] * QUANTIFERON INTERPRETATION (PERFORMABLE) (02/23/2024 13:40 EDT) [facility] Quantiferon Interpretation Negative Negative 02/27/2024 13:45 EDT [facility] Comment:No interferon-gamma response to M. tuberculosis antigens was detected. ??Infection with M. tuberculosis is unlikely. A single negative result does not exclude infection with M. tuberculosis. ??In patients at high risk for M. tuberculosis infection, a second test should be considered. TB1 Ag minus Nil 0.01 IU/ml 02/27/20 13:45 EDT [facility] TB2 Ag minus Nil 0.00 IU/mL 02/27/20 13:45 EDT [facility] Blood VENOUS BLOOD / Unknown 02/23/2024 13:40 EDT 02/27/2024 12:40 EDT Provider Outr Resulting Lab IMMUNOLOGY A ND SEROLOGY ORDERABLES Performing Organization Address [facility] de Phone Number [facility] [address] [place], [place] [address] from Last 3 Months Care Teams Imager Relationship Specialty Start Date End Date Unknown, Provider, PCP - General 11/19/23
--- OUTSIDE RECORDS SUMMARY | 2024-03-16 15:13 | XMS_ITS | Encounter Summary ---
Author Organization [facility] Address [facility] [place] [address] Care Team Providers Care Parks Recreation Coordinator Name Role Phone Unavailable Primary Care Provider Unavailabl e Encounter Details Date Type Department Care Team (Late st Contact Info) Description 02/23/2024 Telephone Dermatology at [facility] [address] [place] [phone] Rama Justice MD [facility] [address] [place] [address] Social History Tobacco Use Types Packs/Day Years [...] I received a call from Martha at [facility] lab in [place], [place] reaching out regarding the specific Hepatitis [...] 9:30 AM EST Office Visit Dermatology at [facility] [address] [place] [address] Rama Justice MD [facility] DR [address] [place] [place] [address] documented as of this encounter Visit Diagnoses Not on filedocumented in this encounter
--- OUTSIDE RECORDS SUMMARY | 2024-03-16 15:13 | XMS_ITS | Encounter Summary ---
Author Organization [facility] Address [facility] [place] [address] Care Team Providers Care Senior Accounting Specialist Name Role Phone Unavailable Primary Care Provider Unavailabl e Encounter Details Date Type Department Care Team (Late st Contact Info) Description 11/11/2023 Ancillary Procedure Radiology Library at [facility] [place] [address] Morgan Beauchamp MD [facility] [place] [address] Social History Tobacco Use Types Packs/Day Years [...] 9:30 AM EST Office Visit Dermatology at [facility] [address] [place] [address] Rama Justice MD [facility] DR ANN MARIE [place] [address] documented as of this encounter Procedures Procedure Name Priority Date/Time Associated Diagnosis Comments FILM LIBRARY STORAGE ONLY NUCLEAR MEDICINE Routine 11/11/2023 12:00 AM EDT documented in this encounter Results * Film Library- Storage Only nuclear medicine (11/11/2023 12:00 AM EDT) Narrative [facility] - 11/15/2023 9:11 AM EDT This exam is auto-finalizing. It's purpose is for storage only. Morgan Beauchamp MD [facility] FILM LIBRARY ORD ERABLES Performing Organization Address City/State/[facility] Co de Phone Number [place], [place] documented in this encounter Visit Diagnoses Not on filedocumented in this encounter
--- OUTSIDE RECORDS SUMMARY | 2024-03-16 15:13 | XMS_ITS | Encounter Summary ---
Author Organization [facility] Address [facility] [place] [address] Care Team Providers Care Fisher Sponge Hooking Name Role Phone Unavailable Primary Care Provider Unavailabl e Encounter Details Date Type Department Care Team (Latest Contact Info) Description 02/24/2024 Transcribe Orders Dermatology at [facility] [address] [place] [phone] Rama Justice MD [facility] [place] [address] Hidradenitis suppurativa; High risk medication use Social [...] 9:30 AM EST Office Visit Dermatology at [facility] [address] [place] [phone] Rama Justice MD [facility] [address] [place] [address] Scheduled Orders Name Type Priority Associated Diagnoses [...]
--- OUTSIDE RECORDS SUMMARY | 2024-03-16 15:13 | XMS_ITS | Encounter Summary ---
Author Organization [facility] Address [address] [place] [address] Care Team Providers Care Funeral Director/Embalmer Name Role Phone Unknown, Provider Primary Care Provider Encounter Details Date Type Department Care Team (Late st Contact Info) Description 10/17/2023 Lab Requisition [facility] Pathology & Laboratory Medicine - [address] [address] Outr Resulting Lab, Provider Social History Tobacco [...] 275 - 295 mOsm/kg 10/17/2023 16:57 EDT [facility] Blood VENOUS BLOOD / Unknown 10/16/2023 13:39 EDT 10/17/2023 16:27 EDT Provider Outr Resulting Lab CHEMISTRY & BLOOD GAS ORDERABLES [facility] [address] [place], [place] [phone] documented in this encounter Visit Diagnoses Not on filedocumented in this encounter Care Teams Funeral Director/Embalmer Relationship Specialty Start Date End Date Unknown, Provider, PCP - General 11/19/23 documented as of this encounter
--- OUTSIDE RECORDS SUMMARY | 2024-03-16 15:13 | XMS_ITS | Clinical Summary ---
Author Organization [facility] Address [address] [place] [address] Care Team Providers Care Undercover Cop Name Role Phone Unknown, Provider Primary Care Provider Encounters Date Type Department Care Team Description 02/29/2024 Lab Requisition [facility] Pathology & Laboratory [address] [address] Outr Resulting Lab, Provider 02/24/2024 Lab Requisition [facility] Pathology & Laboratory [address] [address] Outr Resulting Lab, Provider from Last 3 [...] C Antibody Negative Negative 02/29/2024 23:10 EDT [facility] Blood VENOUS BLOOD / Unknown 02/29/2024 14:40 EDT 02/29/2024 21:40 EDT Provider Outr Resulting Lab CHEMISTRY & BLOOD GAS ORDERABLES Performing Organization Address City/[facility]/ZIP Co de Phone Number [facility] [address] [place] [address] * HEPATITIS B CORE ANTIBODY (TOTAL) (02/29/2024 14:40 EDT) Hepatitis B Core Ab, Total Negative Negative 02/29/2024 23:13 EDT [facility] Blood VENOUS BLOOD / Unknown 02/29/2024 14:40 EDT 02/29/2024 21:40 EDT Provider Outr Resulting Lab CHEMISTRY & BLOOD GAS ORDERABLES Performing Organization Address City/[facility]/ZIP Co de Phone Number [facility] [address] [place] [address] * HEPATITIS B SURFACE ANTIBODY (02/29/2024 14:40 EDT) Hep B Surface Ab, Quantitative <3.1 See Note mIU/mL 02/29/2024 22:30 EDT [facility] Comment: Reference Range for Hep B Surface Ab, Quant: Positive: >= 10.0 mIU/mL Negative: ??< 10.0 mIU/mL Patient is presumed to not be immune to infection with Hepatitis B Virus. Hep B Surface Ab, Qualitative Negative See Note 02/29/2024 22:30 EDT [facility] Comment: Reference Range for Hep B Surface Ab, Qual: Unvaccinated: ??Negative Vaccinated: ??Positive Blood VENOUS BLOOD / Unknown 02/29/2024 14:40 EDT 02/29/2024 21:40 EDT Provider Outr Resulting Lab CHEMISTRY & BLOOD GAS ORDERABLES Performing Organization Address [facility] Co de Phone Number [facility] [address] [place], [place] [phone] * HEPATITIS B SURFACE ANTIGEN (02/29/2024 14:40 EDT) Hep B Surface Ag Negative Negative 02/29/2024 22:44 EDT [facility] Blood VENOUS BLOOD / Unknown 02/29/2024 14:40 EDT 02/29/2024 21:40 EDT Provider Outr Resulting Lab CHEMISTRY & BLOOD GAS ORDERABLES Performing Organization Address [facility] Co de Phone Number [facility] [address] [place] [address] * QUANTIFERON MITOGEN (PERFORMABLE) (02/23/2024 13:40 EDT) Blood VENOUS BLOOD / Unknown 02/23/2024 13:40 EDT 02/24/2024 17:50 EDT Provider Outr Resulting Lab IMMUNOLOGY A ND SEROLOGY ORDERABLES Performing Organization Address [facility] Co de Phone Number [facility] [address] [place], [place] [phone] * QUANTIFERON TB2 (PERFORMABLE) (02/23/2024 13:40 EDT) Blood VENOUS BLOOD / Unknown 02/23/2024 13:40 EDT 02/24/2024 17:50 EDT Provider Outr Resulting Lab IMMUNOLOGY A ND SEROLOGY ORDERABLES Performing Organization Address [facility] Co de Phone Number [facility] [address] [place] [address] * QUANTIFERON TB1 (PERFORMABLE) (02/23/2024 13:40 EDT) Blood VENOUS BLOOD / Unknown 02/23/2024 13:40 EDT 02/24/2024 17:50 EDT Provider Outr Resulting Lab IMMUNOLOGY A ND SEROLOGY ORDERABLES Performing Organization Address [facility] Co de Phone Number [facility] [address] [place] [address] * QUANTIFERON NIL (PERFORMABLE) (02/23/2024 13:40 EDT) Blood VENOUS BLOOD / Unknown 02/23/2024 13:40 EDT 02/24/2024 17:50 EDT Provider Outr Resulting Lab IMMUNOLOGY A ND SEROLOGY ORDERABLES Performing Organization Address [facility] Co de Phone Number [facility] [address] [place] [address] * QUANTIFERON INTERPRETATION (PERFORMABLE) (02/23/2024 13:40 EDT) [facility] Quantiferon Interpretation Negative Negative 02/27/2024 13:45 EDT [facility] Comment:No interferon-gamma response to M. tuberculosis antigens was detected. ??Infection with M. tuberculosis is unlikely. A single negative result does not exclude infection with M. tuberculosis. ??In patients at high risk for M. tuberculosis infection, a second test should be considered. TB1 Ag minus Nil 0.01 IU/ml 02/27/20 13:45 EDT [facility] TB2 Ag minus Nil 0.00 IU/mL 02/27/20 13:45 EDT [facility] Blood VENOUS BLOOD / Unknown 02/23/2024 13:40 EDT 02/27/2024 12:40 EDT Provider Outr Resulting Lab IMMUNOLOGY A ND SEROLOGY ORDERABLES [facility] [address] [place], [place] [phone] from Last 3 Months Care Teams Undercover Cop Relationship Specialty Start Date End Date Unknown, Provider, PCP - General 11/19/23
--- OUTSIDE RECORDS SUMMARY | 2024-03-16 15:13 | XMS_ITS | Encounter Summary ---
Author Organization [facility] Address [facility] [place] [address] Care Team Providers Care Education Administrator Name Role Phone Unavailable Primary Care Provider Unavailabl e Encounter Details Date Type Department Care Team (Late st Contact Info) Description 11/11/2023 12:05 AM EDT Ancillary Procedure Radiology Library at [facility] [place] [address] Morgan Beauchamp MD [facility] [place] [address] Social History Tobacco Use Types Packs/Day Years [...] 9:30 AM EST Office Visit Dermatology at [facility] [address] [place] [address] Rama Justice MD [facility] DR [address] [place] [address] documented as of this encounter Procedures Procedure Name Priority Date/Time Associated Diagnosis Comments FILM LIBRARY STORAGE ONLY CT ABDOMEN Routine 11/11/2023 12:05 AM EDT documented in this encounter Results * Film Library- Storage Only CT Abdomen (11/11/2023 12:05 AM EDT) Narrative [facility] - 11/15/2023 9:12 AM EDT This exam is auto-finalizing. It's purpose is for storage only. Morgan Beauchamp MD IM FILM LIBRARY ORD ERABLES Performing Organization Address City/State/[facility] Co de Phone Number [place], [place] documented in this encounter Visit Diagnoses Not on filedocumented in this encounter
--- OUTSIDE RECORDS SUMMARY | 2024-03-16 15:13 | XMS_ITS | Encounter Summary ---
Author Organization [facility] Address [address] [place] [address] Care Team Providers Care Quality Assurance Supervisor Name Role Phone Unknown, Provider Primary Care Provider Encounter Details Date Type Department Care Team (Late st Contact Info) Description 02/29/2024 Lab Requisition [facility] Pathology & Laboratory Medicine - [facility] [address] [place] [address] Outr Resulting Lab, Provider Social History Tobacco [...] Note mIU/mL 02/29/2024 22:30 EDT [facility] Comment: Reference Range for Hep B Surface Ab, Quant: Positive: >= 10.0 mIU/mL Negative: ??< 10.0 mIU/mL Patient is presumed to not be immune to infection with Hepatitis B Virus. Hep B Surface Ab, Qualitative Negative See Note 02/29/2024 22:30 EDT [facility] Comment: Reference Range for Hep B Surface Ab, Qual: Unvaccinated: ??Negative Vaccinated: ??Positive Blood VENOUS BLOOD / Unknown 02/29/2024 14:40 EDT 02/29/2024 21:40 EDT Provider Outr Resulting Lab CHEMISTRY & BLOOD GAS ORDERABLES Performing Organization Address City/[facility]/ZIP Co de Phone Number [facility] [address] [place] [address] * HEPATITIS B CORE ANTIBODY (TOTAL) (02/29/2024 14:40 EDT) Hepatitis B Core Ab, Total Negative Negative 02/29/2024 23:13 EDT [facility] Blood VENOUS BLOOD / Unknown 02/29/2024 14:40 EDT 02/29/2024 21:40 EDT Provider Outr Resulting Lab CHEMISTRY & BLOOD GAS ORDERABLES Performing Organization Address City/[facility] [[email or web address]] Co de Phone Number [facility] [address] [place] [phone] * HEPATITIS B SURFACE ANTIGEN (02/29/2024 14:40 EDT) Hep B Surface Ag Negative Negative 02/29/2024 22:44 EDT [facility] Blood VENOUS BLOOD / Unknown 02/29/2024 14:40 EDT 02/29/2024 21:40 EDT Provider Outr Resulting Lab CHEMISTRY & BLOOD GAS ORDERABLES Performing Organization Address [facility] [[email or web address]] Co de Phone Number [facility] [address] [place], [place] [phone] * HEPATITIS C AB W REFLEX TO HCV RNA BY PCR (02/29/2024 14:40 EDT) Hep C Antibody Negative Negative 02/29/2024 23:10 EDT [facility] Blood VENOUS BLOOD / Unknown 02/29/2024 14:40 EDT 02/29/2024 21:40 EDT Provider Outr Resulting Lab CHEMISTRY & BLOOD GAS ORDERABLES [facility] [address] [place] [address] documented in this encounter Visit Diagnoses Not on filedocumented in this encounter Care Teams Quality Assurance Supervisor Relationship Specialty Start Date End Date Unknown, Provider, PCP - General 11/19/23 documented as of this encounter
--- OUTSIDE RECORDS SUMMARY | 2024-03-16 15:13 | XMS_ITS | Encounter Summary ---
Author Organization [facility] Address [address] [place] [address] Care Team Providers Care Quality Liaison Name Role Phone Unknown, Provider Primary Care Provider Encounter Details Date Type Department Care Team (Late st Contact Info) Description 11/30/2023 Lab Requisition [facility] Pathology & Laboratory Medicine - [address] [place] [address] Pressure ulcer of right heel, [...] management options, if applicable. 12/05/2023 11:34 [facility] Final Diagnosis A. 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 - Acute serositis and adhesions. - Cholelithiasis. - Benign reactive lymph node. 12/05/2023 11:34 [facility] Attestation There was significan t resident/fellow involvement in the diagnostic evaluation of this case. By the signature below, the attending physician certifies that they have personally conducted a gross and/or microscopic examination of the described specimens and rendered or confirmed the above diagnosis. 12/05/2023 11:34 [facility] at 1134 Clinical History Cholecystitis, S/P cholecystostomy tube insertion 11/16/2023, developed sepsis with WBC 31,000, now open robert 12/05/2023 11:34 [facility] Gross Description A. Received [...] received are several brown-black smooth multifaceted calculi. Supply Chain Intern sections are submitted as follows: BLOCK MARIA A1- cystic duct margin, en face and bisected possible periductal lymph node A2-A6- signs and displays sales representative sections gallbladder wall A7- section separately submitted necrotic saccular tissue A8- signs and displays sales representative sections separately submitted tissue fragments MELO HILLIARD(ASCP) 11/30/2023 10:55 12/05/2023 11:34 EDT [facility] Resident/Fell ow: Jefry Montez DO 12/05/2023 11:34 EDT [facility] Performing Lab [facility] 12/05/2023 11:34 EDT [facility] Scanned Images 12/05/2023 11:34 EDT [facility] Tissue GALLBLADDER STRUCTURE / Unknown 11/29/2023 14:25 EDT 11/30/2023 8:14 EDT Kirit Tejeda PATHOLOGY ORDERABLES [facility] [address] [place] [address] documented in this encounter Visit Diagnoses Diagnosis Pressure ulcer of right heel, unstageable ([facility]) Hypothyroidism, unspecified Acute cystitis without hematuria Acute cystitis Chronic diastolic (congestive) heart failure ([facility]) Anemia in other chronic diseases classified elsewhere Type 2 diabetes mellitus with hyperglycemia ([facility]) Type II or unspecified type diabetes mellitus without mention of complication, not stated as uncontrolled Type 2 diabetes mellitus with diabetic polyneuropathy ([facility]) Type II or unspecified type diabetes mellitus with neurological manifestations, not stated as uncontrolled Pneumonia, unspecified organism Cholecystitis, unspecified documented in this encounter Care Teams Quality Liaison Relationship Specialty Start Date End Date Unknown, Provider, PCP - General 11/19/23 documented as of this encounter
--- OUTSIDE RECORDS SUMMARY | 2024-03-16 15:13 | XMS_ITS | Encounter Summary ---
Author Organization [facility] Address [facility] [place] [address] Care Team Providers Care Deliver Driver Name Role Phone Unavailable Primary Care Provider Unavailabl e Encounter Details Date Type Department Care Team (Late st Contact Info) Description 03/01/2024 Telephone Dermatology at [facility] [address] [place] [phone] Rama Justice MD [facility] DR [address] MAR[address] ROM[place] [address] Social History Tobacco Use Types Packs/Day Years [...] 9:30 AM EST Office Visit Dermatology at [facility] [address] [place] [address] Rama Justice MD [facility] DR [address] MAR[address] ROM[place] [address] documented as of this encounter Visit Diagnoses Not on filedocumented in this encounter
--- OUTSIDE RECORDS SUMMARY | 2024-03-16 15:13 | XMS_ITS | Encounter Summary ---
Author Organization [facility] Address [facility] [place] [address] Care Team Providers Care Adult Basic Education Teacher Name Role Phone Unavailable Primary Care Provider Unavailabl e Encounter Details Date Type Department Care Team (Late st Contact Info) Description 02/14/2024 11:00 AM EDT Office Visit Dermatology at [facility] [address] [place] [address] [facility] [address] MAR[address] [place] [address] Hidradenitis suppurativa; Intertrigo Social History Tobacco Use [...] history of IBD - Per discussion with penitentiary staff, nurse practioner on staff needs paper [...] if still active. - Per discussion with penitentiary staff, nurse practioner on staff needs paper prescriptions priorto writing his/her own prescriptions. Provided paper prescriptions for the above medications. Other: N/A RTC: 3 month HS follow up [x]Note routed to manager of administration []Recall placed in scheduling system []Appointment scheduled at checkout Scribe attestation: DERRICK White has performed the documentation for this encounter in the presence of and acting as a scribe for Rama Justice MD. I performed the above scribed service and agree with the accuracy of the documentation in this encounter. Reviewed and signed by: Rama Justice MD Dermatology [facility] documented in this encounter Plan of Treatment Upcoming Encounters Date Type Department Care Team (Late st Contact Info) Description 05/29/2024 9:30 AM EST Office Visit Dermatology at [facility] [address] [place] [address] [facility] [address] [place] [address] documented as of this encounter Visit Diagnoses Diagnosis Hidradenitis suppurativa Hidradenitis Intertrigo Other specified erythematous condition documented in this encounter
--- OUTSIDE RECORDS SUMMARY | 2024-03-16 15:13 | XMS_ITS | Encounter Summary ---
Author Organization [facility] Address [facility] [place] [address] Care Team Providers Care Supervisor [place] Department Name Role Phone Unavailable Primary Care Provider Unavailabl e Reason for Referral * Diagnostic Test (Routine) - Pending Review Specialty Diagnoses / Procedures Referred By Silvana taylor Referred To Contact Radiology Diagnoses Acute cholecystitis Procedures IR Cholecystostomy Tube Placement Merissa Oakes PA [facility] [place] [place] [address] [facility] [place] [address] Referral ID Status Reason Start Date Expiration Date Visits Requested Visits Authorized [id number] Pending Review Specialty Service Requested 11/15/2023 05/17/2025 1 1 Reason for Visit * Diagnostic Test (Routine) - Pending Review Specialty Diagnoses / Procedures Referred By Silvana taylor Referred To Contact Radiology Diagnoses Acute cholecystitis Procedures IR Cholecystostomy Tube Placement Merissa Oakes PA [facility] [place] [place] [address] [place] [address] Referral ID Status Reason Start Date Expiration Date Visits Requested Visits Authorized [id number] Pending Review Specialty Service Requested 11/15/2023 05/17/2025 1 1 Encounter Details Date Type Department Care Team (Latest Contact Info) Description 11/16/2023 12:36 PM EDT - 11/16/2023 11:59 PM EDT Hospital [place] [address] Efraín Teran, [facility] [place] [address] Acute cholecystitis Discharge Disposition: Home Social History [...] or any other surface. Always put a chartered accountant on the end to keep clean. 11. If you drainage bags starts to have an odor, you can clean the bag after removing it from the tube. Turn the stopcock to off. Put on a chartered accountant to the end of the stopcock to [...] is during regular office hours, please call [phone]. If it is after regular office hours, or on weekends or holidays, please call [phone] and ask to speak to the Wire Wel[employer] automotive professional for Interventional Radiology. XX You have received [...] Questions Answers Where will study be performed? [facility] Radiology [120] To be scheduled Next available after expected date Reason for exam and clinical history: Suspected acute cholecystitis, down/back procedure from [facility] Is the patient on anticoagulant / [...] Service contacted by Dr. Alexandro Smith at [facility] at 09:10 11/14 regarding the procedure request below. There are no answered order specific questions. History of Present Illness: Per chart review, Nilam Dyer is a 73 y.o. female currently admittedto [facility] for gallstone pancreatitis with rising leukocytosis, [...] 9:30 AM EST Office Visit Dermatology at [facility] [address] [place] [id number] Rama Justice MD [facility] [address] [place] [address] documented as of this encounter Procedures Procedure [...] Glucose, POC 94 65 - 199 mg/dL [facility] Comment: Supplemental ranges: <140 mg/dL before meals <180 mg/dL all other times of the day Blood 11/16/2023 3:18 PM EDT 11/16/2023 3:18 PM EDT Efraín Teran DO POINT OF CARE TEST O RDERARANDELL [facility] [place] [address] * IR Cholecystostomy Tube Placement (11/16/2023 2:57 [...] the tract was dilated and a 10 Spanish Fr locking pigtail drain was advanced into [...] discharge to return via hospital transfer to [facility], when meets criteria Resident/Fellow: Alvin Harris MD Attending: Dr. Mendiola I, Dr. Mendiola, was present throughout the procedure. I was present during the intraservice time as documented by the IR Nurse. ?? Efraín Teran DO IMG IR ORDERABLES * Anaerobic Culture (11/16/2023 2:35 PM EDT) Anaerobic Culture No anaerobic organisms isolated [facility] Bile 11/16/2023 2:35 PM EDT 11/16/2023 3:54 PM EDT Comment:Cholecystomy Narrative Resulting Agency Comment Spec In Lab Jose Mendiola MD MICROBIOLOGY - GENER AL ORDERABLES Performing Organization Address City/State/[place] Co de Phone Number [facility] [place] [phone] * (ABNORMAL) Body Fluid Culture, Aerobic (11/16/2023 2:35 PM EDT) Body Fluid Culture Many Escherichia coli(A) [facility] Gram Stain Few Neutrophils seen Moderate Gram Negative Rods (A) [facility] Organism Escherichia coli(A) [facility] Bile 11/16/2023 2:35 PM EDT [...] - GENER AL ORDERABLES Performing Organization Address [facility]/[place] Co de Phone Number [facility] [place] [address] * POCT Glucose (11/16/2023 1:35 PM EDT) Glucose, POC 84 65 - 199 mg/dL [facility] Comment: Supplemental ranges: <140 mg/dL before meals <180 mg/dL all other times of the day Blood 11/16/2023 1:35 PM EDT 11/16/2023 1:35 PM EDT Efraín Terna DO POINT OF CARE TEST O RDERABLES Performing Organization Address [facility]/[place] Co de Phone Number [facility] [place] [address] documented in this encounter Visit Diagnoses Diagnosis [...]
--- OUTSIDE RECORDS SUMMARY | 2024-03-16 15:13 | XMS_ITS | Encounter Summary ---
Author Organization [facility] Address [address] [place] [address] Care Team Providers Care Events Director Name Role Phone Unknown, Provider Primary Care Provider [phone] Encounter Details Date Type Department Care Team (Late st Contact Info) Description 09/05/2023 Lab Requisition [facility] Pathology & Laboratory Medicine - [address] [address] Outr Resulting Lab, Provider Social History Tobacco [...] 201 - 352 mg/dL 09/06/2023 9:56 EDT [facility] Blood VENOUS BLOOD / Unknown 09/05/2023 6:09 EDT 09/05/2023 16:50 EDT Provider Outr Resulting Lab CHEMISTRY & BLOOD GAS ORDERABLES [facility] [address], [place] [address] documented in this encounter Visit Diagnoses Not on filedocumented in this encounter Care Teams Events Director Relationship Specialty Start Date End Date Unknown, ProviderMD PCP - General 11/19/23 documented as of this encounter
[2024-03-16 15:15] VITALS: O2SAT 96
--- NOTE | 2024-03-16 15:15 | DI.RAD_ITS ---
Exam(s) XR CHEST 2V PA LATERAL EXAM: XR CHEST 2V PA LATERAL CLINICAL HISTORY: sob hypoxia. TECHNIQUE: 2D digital imaging was performed. COMPARISON: CR XR PORTABLE CHEST AP from 11/17/2023 FINDINGS: 2 views: Heart size is normal. The mediastinum is not widened. Left lung is presently clear. There is, however, a small area of infiltrate in the right upper lobe suprahilar region measuring approximately 1.5 x 1.4 cm. No pleural effusions. IMPRESSION: 15 x 14 mm nodular infiltrate in the right upper lobe. No pleural effusions. DATA REPOSITORY: RADIATION DOSE DELIVERED:
--- NOTE | 2024-03-16 15:29 | W.ED.GENAD ---
Discharge Plan Disposition Patient Disposition: Home Condition: Improving Discharge Details Chief Complaint: Dizzy/Sync Clinical Impression: Shortness of breath Primary Care Provider: Angelika Berumen ED Provider: Morgan Lundy Home Meds and New Rx's Prescriptions: No Action ketoconazole 2 % cream 1 applic topical DAILY Qty: 120 6RF Rx Instructions: Apply to toenails once daily urea 40 % cream 1 applic topical .QD Qty: 28 3RF Trulicity 0.75 mg/0.5 mL pen injector 0.75 mg subcut QWEEK melatonin 3 mg tablet 3 mg PO HS PRN Cosentyx UnoReady Pen 300 mg/2 mL (150 mg/mL) pen injector 300 mg subcut QWEEK magnesium gluconate [Mag-G] 27 mg magnesium (500 mg) tablet 27 mg PO BID benzonatate 100 mg capsule 100 mg PO TID dextromethorphan-guaifenesin [Guaiasorb DM] 10-100 mg/5 mL liquid 10 ml PO Q4H PRN ipratropium bromide 21 mcg (0.03 %) spray,non-aerosol 2 spray intranasal BID-TID PRN (Reason: allergy symptoms) Qty: 30 2RF Rx Instructions: administer into each nostril cholecalciferol (vitamin D3) 1,250 mcg (50,000 unit) capsule 1,250 mcg PO QWEEK atorvastatin 40 mg tablet 40 mg PO HS trazodone 50 mg tablet 50 mg PO QHS acetaminophen 500 mg Tablet 1,000 mg PO TID MDD 3000 mg Qty: 60 0RF docusate sodium [Colace] 100 mg Capsule 100 mg PO DAILY Qty: 30 0RF ferrous sulfate 325 mg (65 mg iron) Tablet 325 mg PO DAILY Qty: 30 0RF pantoprazole 40 mg Tablet,Delayed Release (Dr/Ec) 40 mg PO DAILY@0730 Qty: 10 0RF metformin 500 mg tablet 500 mg PO BIDWMEAL Qty: 60 0RF (DME) lancets [FreeStyle Lancets] 28 gauge misc See Rx Instructions .Route Qty: 100 0RF Rx Instructions: As directed (DME) blood-glucose meter [FreeStyle Lite Meter] Kit See Rx Instructions .Route Qty: 1 0RF Rx Instructions: As directed (DME) FreeStyle Lite Strips Strip See Rx Instructions .Route Qty: 100 0RF Rx Instructions: As directed levothyroxine 150 mcg tablet 150 mcg PO HS insulin glargine [Lantus Solostar U-100 Insulin] 100 unit/mL (3 mL) Insulin Pen 15 unit subcut QAM Qty: 15 0RF furosemide 40 mg Tablet 40 mg PO BID@0830,1600 Qty: 60 0RF insulin aspart U-100 100 unit/mL (3 mL) insulin pen 1 sliding scale dose SUBCUT TID Rx Instructions: see sliding scale polyethylene glycol 3350 [ClearLax] 17 gram/dose powder 17 g PO DAILY nystatin [Nyamyc] 100,000 unit/gram powder 1 applic TOPICAL DAILY mupirocin 2 % ointment 1 applic TOPICAL BID insulin glargine [Lantus Solostar U-100 Insulin] 100 unit/mL (3 mL) Insulin Pen 30 unit subcut HS spironolactone 25 mg Tablet 50 mg PO DAILY calcium carbonate [Calcium 500] 500 mg calcium (1,250 mg) tablet,chewable 1,000 mg PO ONCE PRN Rx Instructions: 2 tabs Q3H Discharge Instructions Instructions: Shortness of breath Additional Instructions: Please follow-up with your primary care physician. Please return to the emergency department for any worsening symptoms HPI General Date/Time Provider Initiated Documentation: 03/16/24 15:17. HPI Narrative: 73-year-old female presents with shortness of breath chest pressure and new hypoxia noted today at the [facility], patient endorses some fluid retention in her lower extremities, denies nausea vomiting fevers chills or other systemic signs of illness. Had mild gradual onset frontal headache and neck discomfort now resolving. Related Data Home Medications ?Medication ?Instructions ?Recorded ?Confirmed atorvastatin 40 mg tablet 40 mg PO HS 09/04/23 03/16/24 trazodone 50 mg tablet 50 mg PO QHS 09/04/23 03/16/24 acetaminophen 500 mg tablet 1,000 mg (2 x 500 mg) PO TID #60 09/06/23 03/16/24 tabs blood sugar diagnostic (FreeStyle #100 ea 09/06/23 03/16/24 Lite Strips) blood-glucose meter (FreeStyle #1 ea 09/06/23 03/16/24 Lite Meter kit) docusate sodium 100 mg capsule 100 mg PO DAILY #30 caps 09/06/23 03/16/24 (Colace) ferrous sulfate 325 mg (65 mg 325 mg PO DAILY #30 tabs 09/06/23 03/16/24 iron) tablet lancets 28 gauge (FreeStyle #100 ea 09/06/23 03/16/24 Lancets) metformin 500 mg tablet 500 mg PO BIDWMEAL #60 tabs 09/06/23 03/16/24 pantoprazole 40 mg tablet,delayed 40 mg PO DAILY@0730 #10 tabs 09/06/23 03/16/24 release levothyroxine 150 mcg tablet 150 mcg PO HS 10/19/23 03/16/24 furosemide 40 mg tablet 40 mg PO BID@0830,1600 #60 tabs 10/28/23 03/16/24 insulin glargine 100 unit/mL (3 15 unit (0.15 mL) subcut QAM #15 mL 10/28/23 03/16/24 mL) subcutaneous pen (Lantus Solostar U-100 Insulin) cholecalciferol (vitamin D3) 1,250 1,250 mcg PO QWEEK 11/28/23 03/16/24 mcg (50,000 unit) capsule insulin aspart U-100 100 unit/mL 1 sliding scale dose subcut TID 11/29/23 03/16/24 (3 mL) subcutaneous pen polyethylene glycol 3350 17 17 g PO DAILY 11/29/23 03/16/24 gram/dose oral powder (ClearLax) nystatin 100,000 unit/gram topical 1 applic topical DAILY 12/23/23 03/16/24 powder (Nyamyc) ketoconazole 2 % topical cream 1 applic topical DAILY #120 grams 01/12/24 03/16/24 urea 40 % topical cream 1 applic topical .QD #28 grams 01/12/24 03/16/24 benzonatate 100 mg capsule 100 mg PO TID 03/01/24 03/16/24 dextromethorphan-guaifenesin 10 10 ml PO Q4H PRN 03/01/24 03/16/24 mg-100 mg/5 mL oral liquid (Guaiasorb DM) ipratropium bromide 21 mcg (0.03 2 spray intranasal BID-TID PRN 03/01/24 03/16/24 %) nasal spray allergy symptoms #30 mL magnesium gluconate 27 mg 27 mg PO BID 03/01/24 03/16/24 magnesium (500 mg) tablet (Mag-G) dulaglutide 0.75 mg/0.5 mL 0.75 mg subcut QWEEK 03/15/24 03/16/24 subcutaneous pen injector (Trulicity) melatonin 3 mg tablet 3 mg PO HS PRN 03/15/24 03/16/24 secukinumab 300 mg/2 mL (150 300 mg subcut QWEEK 03/15/24 03/16/24 mg/mL) subcutaneous pen injector (Cosentyx UnoReady Pen) calcium carbonate (Calcium 500) 1,000 mg PO ONCE PRN 03/16/24 03/16/24 insulin glargine 100 unit/mL (3 30 unit subcut HS 03/16/24 03/16/24 mL) subcutaneous pen (Lantus Solostar U-100 Insulin) mupirocin 2 % topical ointment 1 applic topical BID 03/16/24 03/16/24 spironolactone 25 mg tablet 50 mg PO DAILY 03/16/24 03/16/24 Previous Rx's ?Medication ?Instructions ?Recorded acetaminophen 500 mg tablet 1,000 mg (2 x 500 mg) PO TID #60 09/06/23 tabs blood sugar diagnostic (FreeStyle #100 ea 09/06/23 Lite Strips) blood-glucose meter (FreeStyle #1 ea 09/06/23 Lite Meter kit) docusate sodium 100 mg capsule 100 mg PO DAILY #30 caps 09/06/23 (Colace) ferrous sulfate 325 mg (65 mg 325 mg PO DAILY #30 tabs 09/06/23 iron) tablet lancets 28 gauge (FreeStyle #100 ea 09/06/23 Lancets) metformin 500 mg tablet 500 mg PO BIDWMEAL #60 tabs 09/06/23 pantoprazole 40 mg tablet,delayed 40 mg PO DAILY@0730 #10 tabs 09/06/23 release furosemide 40 mg tablet 40 mg PO BID@0830,1600 #60 tabs 10/28/23 insulin glargine 100 unit/mL (3 15 unit (0.15 mL) subcut QAM #15 mL 10/28/23 mL) subcutaneous pen (Lantus Solostar U-100 Insulin) ketoconazole 2 % topical cream 1 applic topical DAILY #120 grams 01/12/24 urea 40 % topical cream 1 applic topical .QD #28 grams 01/12/24 ipratropium bromide 21 mcg (0.03 2 spray intranasal BID-TID PRN 03/01/24 %) nasal spray allergy symptoms #30 mL Allergies Allergy/AdvReac Type Severity Reaction Status Date / Time No Known Allergies Allergy Verified 03/16/24 15:19 General Stated Complaint: Dizzy/Sync TRINIDAD: 3 Exam Narrative Exam Narrative: Alert oriented interactive Moist mucous membranes tongue secretions Normal voice no respiratory distress Clear lungs bilaterally no wheezes rales or rhonchi Normal heart sounds no murmurs rubs or gallops Abdomen soft nontender nondistended Moving all extremities without deficit cranial nerves intact normal speech no ataxia Mild edema to bilateral ankles Course Vital Signs Vital signs: Vital Signs Temperature 36.7 C 03/16/24 15:13 Pulse 86 03/16/24 15:13 Respiratory Rate 16 03/16/24 15:13 Blood Pressure 118/64 03/16/24 15:13 Pulse Oximetry 92 03/16/24 15:13 Temperature 36.7 C 03/16/24 15:13 Temperature Source Oral 03/16/24 15:13 Pulse 86 03/16/24 15:13 Respiratory Rate 16 03/16/24 15:13 Blood Pressure 118/64 03/16/24 15:13 Blood Pressure Position Sitting 03/16/24 15:13 Pulse Oximetry 92 03/16/24 15:13 Oxygen Delivery Method Room Air 03/16/24 15:13 Oxygen Flow Rate 0 03/16/24 15:13 Pain Level 10 03/16/24 15:13 Comment lasix and tylenol at 2pm 03/16/24 15:13 Medical Decision Making 73-year-old female presents with shortness of breath chest pressure and new hypoxia noted today at the [facility], patient endorses some fluid retention in her lower extremities, denies nausea vomiting fevers chills or other systemic signs of illness. Had mild gradual onset frontal headache and neck discomfort now resolving. Hemodynamically stable afebrile nontoxic clear lungs, noted to require 1 L nasal cannula to maintain oxygen saturation in the mid 90s, was saturating low 90s on room air on arrival, speaking full sentences. Mild peripheral edema bilateral ankles, EKG left bundle branch block sinus rhythm, consider new CHF versus ACS versus pleural effusions lower suspicion for pneumonia pneumothorax PE or aortic pathology. Will obtain screening labs BNP troponin chest x-ray Lasix ASA close reassessment 15: 37 left bundle branch on EKG, unchanged from prior 17: 02 patient resting comfortably no acute distress. Was able to wean off of oxygen saturating 93% on room air. No fevers no tachypnea. No elevation of BNP 2 troponin negative. Will continue with Lasix at home. Quality:SDOH Health Related Social Needs: No Data to Display [facility] All Active Problems (Updated 03/16/24 @ 17:03 by Morgan Lundy MD) Shortness of breath (Acute) Chronic cough (Acute) Personal history of Methicillin resistant Staphylococcus aureus infection (Acute) Dysphagia (Acute) Extended spectrum beta lactamase (ESBL) resistance (Acute) Hypo-osmolar hyponatremia (Acute) Type 2 diabetes mellitus with foot ulcer (Acute) Radiculopathy, lumbar region (Acute) Pleural effusion, not elsewhere classified (Acute) Acute on chronic combined systolic (congestive) and diastolic (congestive) heart failure (Acute) Hemiplegia of left 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 (Acute) Nail dystrophy (Acute) Onychomycosis (Acute) Edema (Acute) Type 2 diabetes mellitus with peripheral neuropathy (Acute) Paresthesias (Acute) Anemia in chronic illness (Acute) Transaminitis (Acute) Obesity (Chronic) Unstageable pressure ulcer of right heel (Acute) Poorly controlled type 2 diabetes mellitus with peripheral neuropathy (Acute) Low serum iron (Acute) Lumbar back pain with radiculopathy affecting right lower extremity (Acute) Ambulatory dysfunction (Acute) Weakness (Acute) Medical History Cholecystitis Constipation Hypothyroid Gram-negative bacteremia Pleural effusion, left Hyperglycemia due to type 2 diabetes mellitus Palliative care patient Physician orders for life-sustaining treatment (POLST) form indicates patient wish for [id number]-[id number] status ACP (advance care planning) Urinary tract infection Stroke Diabetes CHF (congestive heart failure) 2020, pt. denies any deficits now Surgical History S/P cholecystectomy History of ERCP S/P tonsillectomy Family History (Updated 03/01/24 @ 10:33 by Una Alexander) Mother Cancer Social History Smoking/Tobacco Use Status: Never Smoking risk assessment performed?: Yes Alcohol Intake: never Drug use: Never Substance use type: does not use Housing: residential What is your relationship status?: Panel score (0-1 are the most socially isolated patients): 0 Do you feel safe at home: Yes Do you feel safe in your relationship?: Yes
[2024-03-16 15:41] LABS: Abs Immature Grans 0.03 10^3/uL (0.0-0.06); Absolute Basophil Count 0.02 10^3/uL (0.0-0.2); Absolute Eosinophil Count 0.22 10^3/uL (0.0-0.7); Absolute Lymphocyte Count 2.14 10^3/uL (1.2-3.4); Absolute Monocyte Count 0.73 10^3/uL (0.1-0.8); Absolute Neutrophil Count 6.28 10^3/uL (1.2-6.7); Basophils % 0.2 %; Eosinophils % 2.3 %; HCT 38.2 % (36.0-46.0); HGB 12.3 g/dL (11.2-15.7); Immature Grans % 0.3 %; Lymphocytes % 22.7 %; MCH 26.4 pg (27.0-33.0); MCHC 32.2 % (32.0-36.0); MCV 82 fL (80-95); MPV 9.3 fL (8.0-11.0); Monocytes % 7.7 %; Neutrophils % 66.8 %; Platelet Count 276 10^3/uL (130-400); RBC 4.66 10^6/uL (3.93-5.22); RDW 14.1 % (11.7-14.6); RDW-SD 41.1 fL; WBC 9.42 10^3/uL (4.4-10.8)
[2024-03-16] MEDS: Aspirin 81 MG CHEW 324 MG CH (15:46)
[2024-03-16] MEDS: Furosemide 40 MG/4 ML VIAL IVP (15:46)
[2024-03-16 15:54] LABS: PTT Activated 28.5 sec (23.6-32.8); Prothrombin Time 10.3 sec (9.1-11.1)
[2024-03-16 16:03] VITALS: PULSE 89
[2024-03-16 16:04] VITALS: BP 117/70; PULSE 90; RESP 16
[2024-03-16 16:08] LABS: ALT 21 U/L (14-59); AST 8 U/L (15-37); Albumin 3.1 g/dL (3.4-5.0); Alkaline Phosphatase 71 U/L (46-116); BUN 24 mg/dL (7-18); Bilirubin, Total 0.52 mg/dL (0.2-1.0); CREATININE 1.2 mg/dL (0.55-1.02); Calcium 9.2 mg/dL (8.5-10.1); Chloride 96 mmol/L (98-107); Glucose 240 mg/dL (74-106); Magnesium 1.6 mg/dL (1.8-2.4); NT-proBNP 161 pg/mL (<300); Potassium 3.9 mmol/L (3.5-5.1); Sodium 132 mmol/L (136-145); Total Protein 7.9 g/dL (6.4-8.2); Troponin I 4 ng/L (<or=51)
[2024-03-16 16:21] LABS: COVID-19 PCR Negative (Negative); Influenza A PCR Negative (Negative); Influenza B PCR Negative (Negative); RSV PCR Negative (Negative)
[2024-03-16 16:22] LABS: Source Nasopharynx
[2024-03-16 16:53] LABS: Troponin I 4 ng/L (<or=51)
[2024-03-16 16:57] LABS: Bilirubin Negative (Negative); Blood Negative (Negative); Clarity Clear (Clear); Glucose Negative (Negative); Ketones Negative (Negative); Leukocyte Esterase Trace (Negative); Nitrite Negative (Negative); Specific Gravity 1.015 (1.005-1.025); Urobilinogen 0.2 mg/dL (Up to 0.2)
[2024-03-16 17:03] VITALS: BP 157/72; PULSE 84; RESP 16; O2SAT 94
[2024-03-16 17:06] LABS: Bacteria Many HPF (Negative); C & S Indicated? Yes; Casts Negative LPF (Negative); Crystals Negative HPF (Negative); Epithelial Cells Rare HPF (Negative); Mucus Negative (Negative); RBC 0-2 HPF (0-2)
--- NOTE | 2024-03-19 08:07 | NUR.NOTE ---
Accessed Pt chart to see if antibiotics were prescribed. They were not. Patient report given to Dr Flores Note:
--- NOTE | 2024-03-19 08:12 | W.ED.FU ---
Date of service: 03/19/24 Time of Service: 08:12 Follow Up Plan: Call made to [facility] and spoke with Navid regarding the urinalysis culture result which shows greater than 100,000 Colonies of gram-negative rods growing Klebsiella pneumoniae which is sensitive to cephalosporins. Will fax over the culture result and the prescription as requested.
== END 2024-03-16 17:18 | disposition home or self-care (01) ==
PROVIDERS: Emergency Provider Emergency Medicine; PCP Nurse Practitioner Gerontology
DX: R06.02 Shortness of breath (principal); M54.2 Cervicalgia; R60.0 Localized edema; R51.9 Headache, unspecified; I44.7 Left bundle-branch block, unspecified; R82.90 Unspecified abnormal findings in urine
CPT/HCPCS: 36415; 80053; 87077; 87637; 93005; 96374; 99285; 71046; 81003; 81015; 83735; 83880; 84484; 85025; 85610; 85730; 87086; 87186; 93010; 99284; J1940

== ENCOUNTER 2024-03-22 01:18 | Outpatient (CLI) | payer MEDICARE, MEDICAID, SELFPAY ==
--- NOTE | 2024-03-22 10:18 | DI.CT_ITS ---
Exam(s) CT CHEST WO EXAM: CT CHEST WO CLINICAL HISTORY: F/U INFILTRATES,CHRONIC COUGH,R05.3 TECHNIQUE: Imaging Protocol: Axial computed tomography images with coronal and sagittal reformatted images were created and reviewed CONTRAST MATERIAL: Noncontrast. COMPARISON: CT CT CHEST/ABD/PEL W from 11/29/2023 CR XR CHEST 2V PA LATERAL from 03/16/2024 FINDINGS: Pulmonary parenchyma: No consolidation. No dominant measurable mass. Tracheobronchial tree: No bronchiectasis or mucous plugging. Mediastinum and Karina: No dominant adenopathy or fluid collection. Pleura: No effusion. No pneumothorax. Heart: The heart is mildly dilated. Moderate coronary artery calcifications are seen. Aorta: Thoracic aorta non-dilated. Mild atherosclerotic changes. Pulmonary arteries: No gross evidence of emboli. Upper abdomen: No acute findings. Bones: Degenerative changes in the spine. Soft tissues: Unremarkable. IMPRESSION: No acute abnormality. The lungs are currently clear. Resolution of previously noted infiltrates. RADIATION DOSE DELIVERED: 285.04mGy.cm Total DLP DATA REPOSITORY: All CT scans at this facility are submitted to the National Radiology Data Registry (NRDR) Dose Index Registry (DIR) with the [employer] (ACR). RADIATION OPTIMIZATION: All CT scans at this facility use at least one of these dose optimization te chniques: automated exposure control; mA and/or kV adjustment per patient size (includes targeted exa ms where dose is matched to clinical indication); or iterative reconstruction.
== END 2024-03-22 01:38 ==
PROVIDERS: PCP Nurse Practitioner Gerontology; Visit Provider Physician Assistant Surgical
DX: R05.3 Chronic cough (principal)
CPT/HCPCS: 71250

== ENCOUNTER 2024-03-22 01:18 | Outpatient (CLI) | payer MEDICARE, MEDICAID, SELFPAY ==
--- NOTE | 2024-03-22 10:08 | DI.CT_ITS ---
Exam(s) CT HEAD WO EXAM: CT HEAD WO CLINICAL HISTORY: NEW ONSET MIGRAINES. TECHNIQUE: Imaging Protocol: Axial computed tomography images with coronal and sagittal reformatted images were created and reviewed COMPARISON: No exams were available for comparison FINDINGS: Ventricles and Extra axial spaces: Normal in size and morphology for the patient's age. Hemorrhage: None. Cerebral parenchyma: No evidence of acute infarct or mass. Old bilateral basal ganglia infarcts. M ild microvascular changes in the white matter. Midline shift: None. Brainstem/Cerebellum: Normal. Calvarium: Normal. Visualized Paranasal sinuses:Clear. Mastoids: Clear. Soft Tissues: Unremarkable. ORBITS: Unremarkable. PITUITARY: Not enlarged. IMPRESSION: No acute intracranial process. RADIATION DOSE DELIVERED: 817.53mGy.cm Total DLP DATA REPOSITORY: All CT scans at this facility are submitted to the National Radiology Data Registry (NRDR) Dose Index Registry (DIR) with the [employer] (ACR). RADIATION OPTIMIZATION: All CT scans at this facility use at least one of these dose optimization te chniques: automated exposure control; mA and/or kV adjustment per patient size (includes targeted exa ms where dose is matched to clinical indication); or iterative reconstruction.
== END 2024-03-22 01:38 ==
LOC: DI 01:18
PROVIDERS: PCP Nurse Practitioner Gerontology; Visit Provider Nurse Practitioner Gerontology
DX: R51.9 Headache, unspecified (principal)
CPT/HCPCS: 70450

== ENCOUNTER 2024-03-23 03:20 | Outpatient (CLI) | payer MEDICARE, MEDICAID, SELFPAY ==
--- OUTSIDE RECORDS SUMMARY | 2024-03-23 03:25 | XMS_ITS | Encounter Summary ---
Author Organization [facility] Address [facility] [place] [address] Care Team Providers Care Landscaping Crew Leader Name Role Phone Unavailable Primary Care Provider Unavailabl e Encounter Details Date Type Department Care Team (Late st Contact Info) Description 11/14/2023 Ancillary Procedure Radiology Library at [facility] [place] [address] Morgan Beauchamp MD [facility] [place] [address] Social History Tobacco Use Types Packs/Day Years [...] AM EST Office Visit Dermatology at [facility] [address] [place] [address] Rama Justice MD [facility] DR [address] MAR[address] [place] [address] documented as of this encounter Procedures Procedure Name Priority Date/Time Associated Diagnosis Comments FILM LIBRARY STORAGE ONLY CT ABDOMEN Routine 11/14/2023 12:00 AM EDT documented in this encounter Results * Film Library- Storage Only CT Abdomen (11/14/2023 12:00 AM EDT) Narrative [facility] - 11/15/2023 9:10 AM EDT This exam is auto-finalizing. It's purpose is for storage only. Morgan Beauchamp MD IM FILM LIBRARY ORD ERABLES Performing Organization Address City/State/[facility] [[email or web address]] Co de Phone Number [place], [place] documented in this encounter Visit Diagnoses Not on filedocumented in this encounter
--- OUTSIDE RECORDS SUMMARY | 2024-03-23 03:25 | XMS_ITS | Encounter Summary ---
Author Organization [facility] Address [facility] [place] [address] Care Team Providers Care Sawmill Tally Clerk Name Role Phone Unavailable Primary Care Provider Unavailabl e Encounter Details Date Type Department Care Team (Late st Contact Info) Description 11/11/2023 Ancillary Procedure Radiology Library at [facility] [place] [address] Morgan Beauchamp MD [facility] [place] [address] Social History Tobacco Use Types Packs/Day Years [...] 9:30 AM EST Office Visit Dermatology at [facility] [address] [place] [address] Rama Justice MD [facility] [address] [place] [address] documented as of this encounter Procedures Procedure Name Priority Date/Time Associated Diagnosis Comments FILM LIBRARY STORAGE ONLY NUCLEAR MEDICINE Routine 11/11/2023 12:00 AM EDT documented in this encounter Results * Film Library- Storage Only nuclear medicine (11/11/2023 12:00 AM EDT) Narrative [facility] - 11/15/2023 9:11 AM EDT This exam is auto-finalizing. It's purpose is for storage only. Morgan Beauchamp MD [facility] FILM LIBRARY ORD ERABLES Performing Organization Address City/State/[facility] Co de Phone Number [place], [place] documented in this encounter Visit Diagnoses Not on filedocumented in this encounter
--- OUTSIDE RECORDS SUMMARY | 2024-03-23 03:25 | XMS_ITS | Encounter Summary ---
Author Organization [facility] Address [address] [place] [address] Care Team Providers Care Desizing Pad Operator Name Role Phone Unknown, Provider Primary Care Provider Encounter Details Date Type Department Care Team (Late st Contact Info) Description 02/24/2024 Lab Requisition [facility] Pathology & Laboratory Medicine - [facility] [address] [place] [address] Outr Resulting Lab, Provider Social History Tobacco [...] Quantiferon Interpretation Negative Negative 02/27/2024 13:45 EDT [facility] Comment:No interferon-gamma response to M. tuberculosis antigens was detected. ??Infection with M. tuberculosis is unlikely. A single negative result does not exclude infection with M. tuberculosis. ??In patients at high risk for M. tuberculosis infection, a second test should be considered. TB1 Ag minus Nil 0.01 IU/ml 02/27/20 13:45 EDT [facility] TB2 Ag minus Nil 0.00 IU/mL 02/27/20 13:45 EDT [facility] Blood VENOUS BLOOD / Unknown 02/23/2024 13:40 EDT 02/27/2024 12:40 EDT Provider Outr Resulting Lab IMMUNOLOGY A ND SEROLOGY ORDERABLES Performing Organization Address City/[facility]/ZIP Co de Phone Number [facility] [address] [place], [place] [phone] * QUANTIFERON MITOGEN (PERFORMABLE) (02/23/2024 13:40 EDT) Blood VENOUS BLOOD / Unknown 02/23/2024 13:40 EDT 02/24/2024 17:50 EDT Provider Outr Resulting Lab IMMUNOLOGY A ND SEROLOGY ORDERABLES Performing Organization Address City/[facility] Co de Phone Number [facility] [address] [place], [place] [phone] * QUANTIFERON TB2 (PERFORMABLE) (02/23/2024 13:40 EDT) Blood VENOUS BLOOD / Unknown 02/23/2024 13:40 EDT 02/24/2024 17:50 EDT Provider Outr Resulting Lab IMMUNOLOGY A ND SEROLOGY ORDERABLES Performing Organization Address [facility]/ZIP Co de Phone Number [facility] [address] [place], [place] [phone] * QUANTIFERON TB1 (PERFORMABLE) (02/23/2024 13:40 EDT) Blood VENOUS BLOOD / Unknown 02/23/2024 13:40 EDT 02/24/2024 17:50 EDT Provider Outr Resulting Lab IMMUNOLOGY A ND SEROLOGY ORDERABLES Performing Organization Address [facility] Co de Phone Number [facility] [address] [place], [place] [phone] * QUANTIFERON NIL (PERFORMABLE) (02/23/2024 13:40 EDT) Blood VENOUS BLOOD / Unknown 02/23/2024 13:40 EDT 02/24/2024 17:50 EDT Provider Outr Resulting Lab IMMUNOLOGY A ND SEROLOGY ORDERABLES Performing Organization Address [facility] Co de Phone Number [facility] [address] [place], [place] [phone] documented in this encounter Visit Diagnoses Not on filedocumented in this encounter Care Teams Desizing Pad Operator Relationship Specialty Start Date End Date Unknown, Provider, PCP - General 11/19/23 documented as of this encounter
--- OUTSIDE RECORDS SUMMARY | 2024-03-23 03:25 | XMS_ITS | Encounter Summary ---
Author Organization [facility] Address [facility] [place] [address] Care Team Providers Care Facing Baster Name Role Phone Unavailable Primary Care Provider Unavailabl e Encounter Details Date Type Department Care Team (Latest Contact Info) Description 02/24/2024 Transcribe Orders Dermatology at [facility] [address] [place] [address] Rama Justice MD [facility] [place] [address] Hidradenitis suppurativa; High risk medication use Social [...] AM EST Office Visit Dermatology at [facility] [address] [place] [address] Rama Justice MD [facility] [place] [address] Scheduled Orders Name Type Priority Associated Diagnoses [...]
--- OUTSIDE RECORDS SUMMARY | 2024-03-23 03:25 | XMS_ITS | Encounter Summary ---
Author Organization [facility] Address [address] [place] [address] Care Team Providers Care Manager Welding Name Role Phone Unknown, Provider Primary Care Provider [phone] Encounter Details Date Type Department Care Team (Late st Contact Info) Description 09/05/2023 Lab Requisition [facility] Pathology & Laboratory Medicine - [address] [address] Outr Resulting Lab, Provider Social History Tobacco [...] 201 - 352 mg/dL 09/06/2023 9:56 EDT [facility] Blood VENOUS BLOOD / Unknown 09/05/2023 6:09 EDT 09/05/2023 16:50 EDT Provider Outr Resulting Lab CHEMISTRY & BLOOD GAS ORDERABLES [facility] [address] [place], [place] [address] documented in this encounter Visit Diagnoses Not on filedocumented in this encounter Care Teams Manager Welding Relationship Specialty Start Date End Date Unknown, ProviderMD PCP - General 11/19/23 documented as of this encounter
--- OUTSIDE RECORDS SUMMARY | 2024-03-23 03:25 | XMS_ITS | Encounter Summary ---
Author Organization [facility] Address [facility] [place] [address] Care Team Providers Care Pattern Puncher Name Role Phone Unavailable Primary Care Provider [...] 9:30 AM EST Office Visit Dermatology at [facility] [address] [place] [address] Rama Justice MD [facility] DR [address] [place] [address] documented as of this encounter Visit Diagnoses Not on filedocumented in this encounter
--- OUTSIDE RECORDS SUMMARY | 2024-03-23 03:25 | XMS_ITS | Encounter Summary ---
Author Organization [facility] Address [facility] [place] [address] Care Team Providers Care Water Meter Reader Name Role Phone Unavailable Primary Care Provider Unavailabl e Reason for Referral * Diagnostic Test (Routine) - Pending Review Specialty Diagnoses / Procedures Referred By Silvana taylor Referred To Contact Radiology Diagnoses Acute cholecystitis Procedures IR Cholecystostomy Tube Placement Merissa Oakes PA [facility] [place] [place] [address] [facility] [place] [address] Referral ID Status Reason Start Date Expiration Date Visits Requested Visits Authorized [id number] Pending Review Specialty Service Requested 11/15/2023 05/17/2025 1 1 Reason for Visit * Diagnostic Test (Routine) - Pending Review Specialty Diagnoses / Procedures Referred By Silvana taylor Referred To Contact Radiology Diagnoses Acute cholecystitis Procedures IR Cholecystostomy Tube Placement Merissa Oakes PA [facility] [place] [place] [address] [place] [address] Referral ID Status Reason Start Date Expiration Date Visits Requested Visits Authorized [id number] Pending Review Specialty Service Requested 11/15/2023 05/17/2025 1 1 Encounter Details Date Type Department Care Team (Latest Contact Info) Description 11/16/2023 12:36 PM EDT - 11/16/2023 11:59 PM EDT Hospital [place] [address] Efraín Teran, [facility] [place] [address] Acute cholecystitis Discharge Disposition: Home Social History [...] any other surface. Always put a registered client associate on the end to keep clean. 11. If you drainage bags starts to have an odor, you can clean the bag after removing it from the tube. Turn the stopcock to off. Put on a registered client associate to the end of the stopcock to [...] is during regular office hours, please call [phone]. If it is after regular office hours, or on weekends or holidays, please call [phone] and ask to speak to the Handle Turner plant technician/control room operator for Interventional Radiology. XX You have received [...] Questions Answers Where will study be performed? [facility] Radiology [120] To be scheduled Next available after expected date Reason for exam and clinical history: Suspected acute cholecystitis, down/back procedure from [facility] Is the patient on anticoagulant / [...] Service contacted by Dr. Alexandro Smith at [facility] at 09:10 11/14 regarding the procedure request below. There are no answered order specific questions. History of Present Illness: Per chart review, Nilam Dyer is a 73 y.o. female currently [facility] for gallstone pancreatitis with rising leukocytosis, [...] 9:30 AM EST Office Visit Dermatology at [facility] [address] [place] [address] Rama Justice MD [facility] [address] [place] [address] documented as of this encounter Procedures Procedure [...] Glucose, POC 94 65 - 199 mg/dL [facility] Comment: Supplemental ranges: <140 mg/dL before meals <180 mg/dL all other times of the day Blood 11/16/2023 3:18 PM EDT 11/16/2023 3:18 PM EDT Efraín Teran DO POINT OF CARE TEST O RDERARANDELL [facility] [place] [address] * IR Cholecystostomy Tube Placement (11/16/2023 2:57 [...] the tract was dilated and a 10 Nigerian Fr locking pigtail drain was advanced into [...] discharge to return via hospital transfer to [facility], when meets criteria Resident/Fellow: Alvin Harris MD Attending: Dr. Mendiola I, Dr. Mendiola, was present throughout the procedure. I was present during the intraservice time as documented by the IR Nurse. ?? Efraín Teran DO IMG IR ORDERABLES * Anaerobic Culture (11/16/2023 2:35 PM EDT) Anaerobic Culture No anaerobic organisms isolated [facility] Bile 11/16/2023 2:35 PM EDT 11/16/2023 3:54 PM EDT Comment:Cholecystomy Narrative Resulting Agency Comment Spec In Lab Jose Mendiola MD MICROBIOLOGY - GENER AL ORDERABLES Performing Organization Address City/State/[facility] Co de Phone Number [facility] [place] [phone] * (ABNORMAL) Body Fluid Culture, Aerobic (11/16/2023 2:35 PM EDT) Body Fluid Culture Many Escherichia coli(A) [facility] Gram Stain Few Neutrophils seen Moderate Gram Negative Rods (A) [facility] Organism Escherichia coli(A) [facility] Bile 11/16/2023 2:35 PM [...] - GENER AL ORDERABLES Performing Organization Address [facility] Co de Phone Number [facility] [place] [address] * POCT Glucose (11/16/2023 1:35 PM EDT) Glucose, POC 84 65 - 199 mg/dL [facility] Comment: Supplemental ranges: <140 mg/dL before meals <180 mg/dL all other times of the day Blood 11/16/2023 1:35 PM EDT 11/16/2023 1:35 PM EDT Efraín Teran DO POINT OF CARE TEST O RDERABLES Performing Organization Address [facility] Co de Phone Number [facility] [place] [address] documented in this encounter Visit Diagnoses Diagnosis [...]
--- OUTSIDE RECORDS SUMMARY | 2024-03-23 03:25 | XMS_ITS | Encounter Summary ---
Author Organization [facility] Address [facility] [place] [address] Care Team Providers Care Senior Qc Technician Name Role Phone Unavailable Primary Care Provider Unavailabl e Encounter Details Date Type Department Care Team (Late st Contact Info) Description 11/11/2023 12:05 AM EDT Ancillary Procedure Radiology Library at [facility] [place] [address] Morgan Beauchamp MD [facility] [place] [address] Social History Tobacco Use Types Packs/Day Years [...] 9:30 AM EST Office Visit Dermatology at [facility] [address] [place] [address] Rama Justice MD [facility] [address] [place] [address] documented as of this encounter Procedures Procedure Name Priority Date/Time Associated Diagnosis Comments FILM LIBRARY STORAGE ONLY CT ABDOMEN Routine 11/11/2023 12:05 AM EDT documented in this encounter Results * Film Library- Storage Only CT Abdomen (11/11/2023 12:05 AM EDT) Narrative [facility] - 11/15/2023 9:12 AM EDT This exam is auto-finalizing. It's purpose is for storage only. Morgan Beauchamp MD IM FILM LIBRARY ORD ERABLES Performing Organization Address City/State/[facility] Co de Phone Number [place], [place] documented in this encounter Visit Diagnoses Not on filedocumented in this encounter
--- OUTSIDE RECORDS SUMMARY | 2024-03-23 03:25 | XMS_ITS | Encounter Summary ---
Author Organization [facility] Address [facility] [place] [address] Care Team Providers Care Pipe Organ Mechanic Name Role Phone Unavailable Primary Care Provider Unavailabl e Reason for Visit * Reason Comments Prior Authorization Cosentyx Sensoready Pens. 150mg/mL x 2 Encounter Details Date Type Department Care Team (Late st Contact Info) Description 03/06/2024 Specialty [place] [address] Basilio Rausch CPHT Social History Tobacco Use [...] MG/2 PENS (150 MG/ML) SUBCUTANEOUS Medication ID: [id number] Approval Dates: 06/20/2023 to 08/27/2024 Insurance requirements/notes: None Other Notes: None Case/Reference #: Approval notification Received via: Telephone Copay: $0.00 Copay assistance: None Copay Notes: Insurance mandated Pharmacy: [facility]: Yes Patient Notified: To be contacted by [facility] for consult Pharmacy staff will be reaching out to the patient to inform them of their [facility]. If applicable, a pharmacist will speak with the patient to offer our specialty pharmacy services and to arrange delivery of their medication. Basilio Rausch CPHT 03/06/24 8:45 AM documented in this encounter Plan of Treatment Upcoming Encounters Date Type Department Care Team (Late st Contact Info) Description 05/29/2024 9:30 AM EST Office Visit Dermatology at [facility] [address] [place] [address] Rama Justice MD [facility] DR [place] [address] documented as of this encounter Visit Diagnoses Not on filedocumented in this encounter
--- OUTSIDE RECORDS SUMMARY | 2024-03-23 03:25 | XMS_ITS | Clinical Summary ---
Author Organization [facility] Address [facility] [place] [address] Care Team Providers Care Grave Digger Name Role Phone Unavailable Primary Care Provider [...] Team Description 03/06/2024 Specialty [place] [phone] Basilio Rausch CPHT 03/06/2024 Telephone Dermatology at [facility] [address] [place] [address] Rama Justice MD 03/05/2024 Telephone Dermatology at [facility] [address] [place] [address] Rama Justice MD 03/01/2024 [facility] [address] [place] [address] Rama Justice MD 02/28/2024 [facility] [address] [place] [address] Rama Justice MD 02/28/2024 [facility] [address] [place] [address] Rama Justice MD 02/24/2024 Transcribe Orders Dermatology at [facility] [address] [place] [address] Rama Justice MD Hidradenitis suppurativa; High risk medication use 02/23/2024 Telephone Dermatology at [facility] [address] [place] [address] Rama Justice MD 02/14/2024 11:00 AM EDT Office Visit Dermatology at [facility] [address] [place] [address] Rama Justice MD Hidradenitis suppurativa; Intertrigo from [...] 9:30 AM EST Office Visit Dermatology at [facility] [address] [place] [address] Rama Justice MD [facility] DR [address] MAR[address] [place] [address] Health Maintenance Due Date Last Done Comments [...]
--- OUTSIDE RECORDS SUMMARY | 2024-03-23 03:25 | XMS_ITS | Encounter Summary ---
Author Organization [facility] Address [facility] [place] [address] Care Team Providers Care Global Director Air And Climate Change Name Role Phone Unavailable Primary Care Provider Unavailabl e Encounter Details Date Type Department Care Team (Late st Contact Info) Description 03/06/2024 Telephone Dermatology at [facility] [address] [place] [address] Rama Justice MD [facility] [address] [place] [address] Social History Tobacco Use Types Packs/Day Years [...] 8:30 AM. Placed a call to the [facility] of [facility]. Spoke with JANET Martinez and [...] # is Att: Michelle. There is an DRESSING ROOM ATTENDANT that is in the facility that views [...] submit a PA? She is in a [facility] and I do not believe they have [...] 9:30 AM EST Office Visit Dermatology at [facility] [address] [place] [address] Rama Justice MD [facility] [address] [place] [address] documented as of this encounter Visit Diagnoses Not on filedocumented in this encounter
--- OUTSIDE RECORDS SUMMARY | 2024-03-23 03:25 | XMS_ITS | Encounter Summary ---
Author Organization [facility] Address [facility] [address] [address] Care Team Providers Care Farmworker Turkey Farm Name Role Phone Unavailable Primary Care Provider Unavailabl e Encounter Details Date Type Department Care Team (Late st Contact Info) Description 02/14/2024 11:00 AM EDT Office Visit Dermatology at [facility] [address] [place] [address] Rama Justice MD [facility] [address] [place] [address] Hidradenitis suppurativa; Intertrigo Social History Tobacco Use [...] history of IBD - Per discussion with shelter staff, nurse practioner on staff needs paper [...] if still active. - Per discussion with shelter staff, nurse practioner on staff needs paper prescriptions priorto writing his/her own prescriptions. Provided paper prescriptions for the above medications. Other: N/A RTC: 3 month HS follow up [x]Note routed to alumni secretary []Recall placed in scheduling system []Appointment scheduled at checkout Scribe attestation: DERRICK White has performed the documentation for this encounter in the presence of and acting as a scribe for Rama Justice MD. I performed the above scribed service and agree with the accuracy of the documentation in this encounter. Reviewed and signed by: Rama Justice MD Dermatology [facility] documented in this encounter Plan of Treatment Upcoming Encounters Date Type Department Care Team (Late st Contact Info) Description 05/29/2024 9:30 AM EST Office Visit Dermatology at [facility] [address] [place] [address] Rama Justice MD [facility] [address] MAR[address] [place] [address] documented as of this encounter Visit Diagnoses Diagnosis Hidradenitis suppurativa Hidradenitis Intertrigo Other specified erythematous condition documented in this encounter
--- OUTSIDE RECORDS SUMMARY | 2024-03-23 03:25 | XMS_ITS | Clinical Summary ---
Author Organization [facility] Address [address] [place] [address] Care Team Providers Care Synthetic Department Supervisor Name Role Phone Unknown, Provider Primary Care Provider Encounters Date Type Department Care Team Description 02/29/2024 Lab Requisition [facility] Pathology & Laboratory [address] [address] Outr Resulting Lab, Provider 02/24/2024 Lab Requisition [facility] Pathology & Laboratory [address] [address] Outr Resulting Lab, Provider from Last 3 [...] C Antibody Negative Negative 02/29/2024 23:10 EDT [facility] Blood VENOUS BLOOD / Unknown 02/29/2024 14:40 EDT 02/29/2024 21:40 EDT Provider Outr Resulting Lab CHEMISTRY & BLOOD GAS ORDERABLES Performing Organization Address City/[facility]/ZIP Co de Phone Number [facility] [address] [place] [address] * HEPATITIS B CORE ANTIBODY (TOTAL) (02/29/2024 14:40 EDT) Hepatitis B Core Ab, Total Negative Negative 02/29/2024 23:13 EDT [facility] Blood VENOUS BLOOD / Unknown 02/29/2024 14:40 EDT 02/29/2024 21:40 EDT Provider Outr Resulting Lab CHEMISTRY & BLOOD GAS ORDERABLES Performing Organization Address City/[facility]/ZIP Co de Phone Number [facility] [address] [place] [address] * HEPATITIS B SURFACE ANTIBODY (02/29/2024 14:40 EDT) Hep B Surface Ab, Quantitative <3.1 See Note mIU/mL 02/29/2024 22:30 EDT [facility] Comment: Reference Range for Hep B Surface Ab, Quant: Positive: >= 10.0 mIU/mL Negative: ??< 10.0 mIU/mL Patient is presumed to not be immune to infection with Hepatitis B Virus. Hep B Surface Ab, Qualitative Negative See Note 02/29/2024 22:30 EDT [facility] Comment: Reference Range for Hep B Surface Ab, Qual: Unvaccinated: ??Negative Vaccinated: ??Positive Blood VENOUS BLOOD / Unknown 02/29/2024 14:40 EDT 02/29/2024 21:40 EDT Provider Outr Resulting Lab CHEMISTRY & BLOOD GAS ORDERABLES Performing Organization Address [facility] Co de Phone Number [facility] [address], [place] [phone] * HEPATITIS B SURFACE ANTIGEN (02/29/2024 14:40 EDT) Hep B Surface Ag Negative Negative 02/29/2024 22:44 EDT [facility] Blood VENOUS BLOOD / Unknown 02/29/2024 14:40 EDT 02/29/2024 21:40 EDT Provider Outr Resulting Lab CHEMISTRY & BLOOD GAS ORDERABLES Performing Organization Address [facility] Co de Phone Number [facility] [address] [place] [address] * QUANTIFERON MITOGEN (PERFORMABLE) (02/23/2024 13:40 EDT) Blood VENOUS BLOOD / Unknown 02/23/2024 13:40 EDT 02/24/2024 17:50 EDT Provider Outr Resulting Lab IMMUNOLOGY A ND SEROLOGY ORDERABLES Performing Organization Address [facility] Co de Phone Number [facility] [address], [place] [phone] * QUANTIFERON TB2 (PERFORMABLE) (02/23/2024 13:40 EDT) Blood VENOUS BLOOD / Unknown 02/23/2024 13:40 EDT 02/24/2024 17:50 EDT Provider Outr Resulting Lab IMMUNOLOGY A ND SEROLOGY ORDERABLES Performing Organization Address [facility] Co de Phone Number [facility] [address] [place] [address] * QUANTIFERON TB1 (PERFORMABLE) (02/23/2024 13:40 EDT) Blood VENOUS BLOOD / Unknown 02/23/2024 13:40 EDT 02/24/2024 17:50 EDT Provider Outr Resulting Lab IMMUNOLOGY A ND SEROLOGY ORDERABLES Performing Organization Address [facility] Co de Phone Number [facility] [address] [place] [address] * QUANTIFERON NIL (PERFORMABLE) (02/23/2024 13:40 EDT) Blood VENOUS BLOOD / Unknown 02/23/2024 13:40 EDT 02/24/2024 17:50 EDT Provider Outr Resulting Lab IMMUNOLOGY A ND SEROLOGY ORDERABLES Performing Organization Address [facility] Co de Phone Number [facility] [address] [place] [address] * QUANTIFERON INTERPRETATION (PERFORMABLE) (02/23/2024 13:40 EDT) [facility] Quantiferon Interpretation Negative Negative 02/27/2024 13:45 EDT [facility] Comment:No interferon-gamma response to M. tuberculosis antigens was detected. ??Infection with M. tuberculosis is unlikely. A single negative result does not exclude infection with M. tuberculosis. ??In patients at high risk for M. tuberculosis infection, a second test should be considered. TB1 Ag minus Nil 0.01 IU/ml 02/27/20 13:45 EDT [facility] TB2 Ag minus Nil 0.00 IU/mL 02/27/20 13:45 EDT [facility] Blood VENOUS BLOOD / Unknown 02/23/2024 13:40 EDT 02/27/2024 12:40 EDT Provider Outr Resulting Lab IMMUNOLOGY A ND SEROLOGY ORDERABLES [facility] [address] [place], [place] [phone] from Last 3 Months Care Teams Synthetic Department Supervisor Relationship Specialty Start Date End Date Unknown, Provider, PCP - General 11/19/23
--- OUTSIDE RECORDS SUMMARY | 2024-03-23 03:25 | XMS_ITS | Encounter Summary ---
[facility] Organization [facility] Address [facility] [place] [address] Care Team Providers Care Process Treater Name Role Phone Unavailable Primary Care Provider Unavailabl e Encounter Details Date Type Department Care Team (Late st Contact Info) Description 02/28/2024 Telephone Dermatology at [facility] [address] [place] [phone] Rama Justice MD [facility] DR [address] [place] [address] Social History Tobacco Use Types Packs/Day Years [...] for Nilam as she resides at the [facility]. Faith mentioned they can see some labs have been done at the [facility]. We have not received any labs [...] the results faxed to the office @ [phone]. Faxed lab orders today @ 2:48 PM to [facility] where Nilam resides fax # and phone # is phone number is [phone] Quant Gold Hep C Antibody Hep B Core Antibody Hep B Surface Antibody Hep B Surface Antigen documented in this encounter Plan of Treatment Upcoming Encounters Date Type Department Care Team (Late st Contact Info) Description 05/29/2024 9:30 AM EST Office Visit Dermatology at [facility] [address] [place] [address] Rama Justice MD [facility] [address] [place] [address] documented as of this encounter Visit Diagnoses Not on filedocumented in this encounter
--- OUTSIDE RECORDS SUMMARY | 2024-03-23 03:25 | XMS_ITS | Encounter Summary ---
Author Organization [facility] Address [facility] [place] [address] Care Team Providers Care Dye Tank Tender Name Role Phone Unavailable Primary Care Provider Unavailabl e Encounter Details Date Type Department Care Team (Late st Contact Info) Description 03/01/2024 Telephone Dermatology at [facility] [address] [place] [address] Rama Justice MD [facility] [address] [place] [address] Social History Tobacco Use Types Packs/Day Years [...] EST Office Visit Dermatology at [facility] [address] [place] [address] Rama Justice MD [facility] [address] [place] [address] documented as of this encounter Visit Diagnoses Not on filedocumented in this encounter
--- OUTSIDE RECORDS SUMMARY | 2024-03-23 03:25 | XMS_ITS | Encounter Summary ---
Author Organization [facility] Address [facility] [place] [address] Care Team Providers Care Bench Worker Apprentice Name Role Phone Unavailable Primary Care Provider Unavailabl e Encounter Details Date Type Department Care Team (Late st Contact Info) Description 02/28/2024 Telephone Dermatology at [facility] [address] [place] [address] Rama Justice MD [facility] DR [address] ROMAN[place] [address] Social History Tobacco Use Types [...] a phone call from Faith at the [facility] where Nilam Dyer lives. She was wondering if the labs that Dr. Justice needs could be drawn at their facility and if we can fax over the orders? The fax # is [phone]. If anything further is needed their phone number is [phone] (ask for Faith) documented in this encounter Plan of Treatment Upcoming Encounters Date Type Department Care Team (Late st Contact Info) Description 05/29/2024 9:30 AM EST Office Visit Dermatology at [facility] [address] [place] [address] Rama Justice MD [facility] DR [address] ROMAN[place] [address] documented as of this encounter Visit Diagnoses Not on filedocumented in this encounter
--- OUTSIDE RECORDS SUMMARY | 2024-03-23 03:25 | XMS_ITS | Encounter Summary ---
Author Organization [facility] Address [address] [place] [address] Care Team Providers Care Forest Practices Field Coordinator Name Role Phone Unknown, Provider Primary Care Provider Encounter Details Date Type Department Care Team (Late st Contact Info) Description 02/29/2024 Lab Requisition [facility] Pathology & Laboratory Medicine - [facility] [address] [place] [address] Outr Resulting Lab, Provider Social History Tobacco [...] <3.1 See Note mIU/mL 02/29/2024 22:30 EDT [facility] Comment: Reference Range for Hep B Surface Ab, Quant: Positive: >= 10.0 mIU/mL Negative: ??< 10.0 mIU/mL Patient is presumed to not be immune to infection with Hepatitis B Virus. Hep B Surface Ab, Qualitative Negative See Note 02/29/2024 22:30 EDT [facility] Comment: Reference Range for Hep B Surface Ab, Qual: Unvaccinated: ??Negative Vaccinated: ??Positive Blood VENOUS BLOOD / Unknown 02/29/2024 14:40 EDT 02/29/2024 21:40 EDT Provider Outr Resulting Lab CHEMISTRY & BLOOD GAS ORDERABLES Performing Organization Address City/[facility]/ZIP Co de Phone Number [facility] [address] [place] [address] * HEPATITIS B CORE ANTIBODY (TOTAL) (02/29/2024 14:40 EDT) Hepatitis B Core Ab, Total Negative Negative 02/29/2024 23:13 EDT [facility] Blood VENOUS BLOOD / Unknown 02/29/2024 14:40 EDT 02/29/2024 21:40 EDT Provider Outr Resulting Lab CHEMISTRY & BLOOD GAS ORDERABLES Performing Organization Address City/[facility] Co de Phone Number [facility] [address] [place] [address] * HEPATITIS B SURFACE ANTIGEN (02/29/2024 14:40 EDT) Hep B Surface Ag Negative Negative 02/29/2024 22:44 EDT [facility] Blood VENOUS BLOOD / Unknown 02/29/2024 14:40 EDT 02/29/2024 21:40 EDT Provider Outr Resulting Lab CHEMISTRY & BLOOD GAS ORDERABLES Performing Organization Address [facility] Co de Phone Number [facility] [address] [place], [place] [phone] * HEPATITIS C AB W REFLEX TO HCV RNA BY PCR (02/29/2024 14:40 EDT) Hep C Antibody Negative Negative 02/29/2024 23:10 EDT [facility] Blood VENOUS BLOOD / Unknown 02/29/2024 14:40 EDT 02/29/2024 21:40 EDT Provider Outr Resulting Lab CHEMISTRY & BLOOD GAS ORDERABLES [facility] [address] [place] [address] documented in this encounter Visit Diagnoses Not on filedocumented in this encounter Care Teams Forest Practices Field Coordinator Relationship Specialty Start Date End Date Unknown, Provider, PCP - General 11/19/23 documented as of this encounter
--- OUTSIDE RECORDS SUMMARY | 2024-03-23 03:25 | XMS_ITS | Encounter Summary ---
Author Organization [facility] Address [facility] [place] [address] Care Team Providers Care Head Coach Name Role Phone Unavailable Primary Care Provider Unavailabl e Encounter Details Date Type Department Care Team (Late st Contact Info) Description 03/05/2024 Telephone Dermatology at [facility] [address] [place] [address] Rama Justice MD [facility] [address] [place] [address] Social History Tobacco Use Types [...] submit a PA? She is in a shelter and I do not believe they have a dermatologsit to submit the prescription. Thank you! documented in this encounter Plan of Treatment Upcoming Encounters Date Type Department Care Team (Late st Contact Info) Description 05/29/2024 9:30 AM EST Office Visit Dermatology at [facility] [address] [place] [address] Rama Justice MD [facility] DR [address] [place] [address] documented as of this encounter Visit Diagnoses Not on filedocumented in this encounter
--- OUTSIDE RECORDS SUMMARY | 2024-03-23 03:25 | XMS_ITS | Encounter Summary ---
Author Organization [facility] [place] [address] Care Team Providers Care Baling Machine Tender Name Role Phone Unavailable Primary Care Provider Unavailabl e Reason for Referral * Diagnostic Test (Routine) - Pending Review Specialty Diagnoses / Procedures Referred By Silvana taylor Referred To Contact Radiology Diagnoses Acute cholecystitis Procedures IR Cholecystostomy Tube Placement Merissa Oakes PA [facility] [place] [address] [place] [address] Referral ID Status Reason Start Date Expiration Date Visits Requested Visits Authorized [id number] Pending Review Specialty Service Requested 11/15/2023 05/17/2025 1 1 Encounter Details Date Type Department Care Team (Late st Contact Info) Description 11/15/2023 Orders [place] [address] Merissa Oakes PA [facility] [place] [address] Acute cholecystitis Social History Tobacco [...] Service contacted by Dr. Alexandro Smith at [facility] at 09:10 11/14 regarding the procedure request below. There are no answered order specific questions. History of Present Illness: Per chart review, Nilam Dyer is a 73 y.o. female currently admittedto [facility] for gallstone pancreatitis with rising [...] 9:30 AM EST Office Visit Dermatology at [facility] [address] [place] [address] Rama Justice MD [facility] [address] [place] [address] documented as of this encounter Results * [...] the tract was dilated and a 10 Citizen [place] Fr locking pigtail drain was advanced into [...] discharge to return via hospital transfer to [facility], when meets criteria Resident/Fellow: Alvin Harris MD Attending: Dr. Mendiola I, Dr. Mendiola, was present throughout the procedure. I was present during the intraservice time as documented by the IR Nurse. ?? Efraín Teran DO IMG IR ORDERABLES documented in this encounter Visit Diagnoses Diagnosis Acute cholecystitis Acute cholecystitis documented in this encounter
--- OUTSIDE RECORDS SUMMARY | 2024-03-23 03:25 | XMS_ITS | Encounter Summary ---
Author Organization [facility] Address [facility] [place] [address] Care Team Providers Care Program Architect Name Role Phone Unavailable Primary Care Provider Unavailabl e Encounter Details Date Type Department Care Team (Late st Contact Info) Description 12/06/2023 Notes [place] [phone] Jose Mendiola MD [facility] [place] [address] Social History Tobacco Use Types Packs/Day Years [...] PLACEMENT 11/16/2023 IR Cholecystostomy Tube Placement 11/16/2023 [facility] INTER[facility] RAD Medications: Benzonatate 200 mg q [...] 9:30 AM EST Office Visit Dermatology at [facility] [address] [place] [address] Rama Justice MD [facility] [address] [place] [address] documented as of this encounter Visit Diagnoses Not on filedocumented in this encounter
--- OUTSIDE RECORDS SUMMARY | 2024-03-23 03:25 | XMS_ITS | Encounter Summary ---
Author Organization [facility] Address [facility] [place] [address] Care Team Providers Care Plan Coordinator Name Role Phone Unavailable Primary Care Provider Unavailabl e Encounter Details Date Type Department Care Team (Late st Contact Info) Description 02/23/2024 Telephone Dermatology at [facility] [address] [place] [phone] Rama Justice MD [facility] [address] [place] [address] Social History Tobacco Use Types Packs/Day Years [...] I received a call from Martha at [facility] lab in [place], [place] reaching out regarding the specific Hepatitis [...] 9:30 AM EST Office Visit Dermatology at [facility] [address] [place] [address] Rama Justice MD [facility] [address] [place] [address] documented as of this encounter Visit Diagnoses Not on filedocumented in this encounter
--- OUTSIDE RECORDS SUMMARY | 2024-03-23 03:25 | XMS_ITS | Encounter Summary ---
Author Organization [facility] Address [address] [place] [address] Care Team Providers Care Shipfitters Supervisor Name Role Phone Unknown, Provider Primary Care Provider [phone] Encounter Details Date Type Department Care Team (Late st Contact Info) Description 10/17/2023 Lab Requisition [facility] Pathology & Laboratory Medicine - [address] [address] Outr Resulting Lab, Provider Social History Tobacco [...] 275 - 295 mOsm/kg 10/17/2023 16:57 EDT [facility] Blood VENOUS BLOOD / Unknown 10/16/2023 13:39 EDT 10/17/2023 16:27 EDT Provider Outr Resulting Lab CHEMISTRY & BLOOD GAS ORDERABLES [facility] [address] [place], [place] [phone] documented in this encounter Visit Diagnoses Not on filedocumented in this encounter Care Teams Shipfitters Supervisor Relationship Specialty Start Date End Date Unknown, Provider, PCP - General 11/19/23 documented as of this encounter
--- OUTSIDE RECORDS SUMMARY | 2024-03-23 03:25 | XMS_ITS | Encounter Summary ---
Author Organization [facility] Address [address] [place] [address] Care Team Providers Care Vault Mechanic Name Role Phone Unknown, Provider Primary Care Provider Encounter Details Date Type Department Care Team (Late st Contact Info) Description 10/17/2023 Lab Requisition [facility] Pathology & Laboratory Medicine - [address] [address] Outr Resulting Lab, Provider Social History Tobacco [...] 150 - 1,150 mOsm/kg 10/17/2023 16:39 EDT [facility] Urine URINE / Unknown 10/16/2023 1 4:38 EDT 10/17/2023 16:27 EDT Provider Outr Resulting Lab URINALYSIS O RDERABLES [facility] [address] [place], [place] [address] documented in this encounter Visit Diagnoses Not on filedocumented in this encounter Care Teams Vault Mechanic Relationship Specialty Start Date End Date Unknown, Provider, PCP - General 11/19/23 documented as of this encounter
--- OUTSIDE RECORDS SUMMARY | 2024-03-23 03:25 | XMS_ITS | Referral Summary ---
Author Organization [facility] Address [address] [place] [address] Care Team Providers Care Mender Hand Name Role Phone Unknown, Provider Primary Care Provider Encounters Date Type Department Care Team Description 02/29/2024 Lab Requisition [facility] Pathology & Laboratory [address] [address] Outr Resulting Lab, Provider 02/24/2024 Lab Requisition [facility] Pathology & Laboratory [address] [address] Outr Resulting Lab, Provider from Last 3 [...] Negative Negative 02/29/2024 23:10 EDT [facility] Blood VENOUS BLOOD / Unknown 02/29/2024 14:40 EDT 02/29/2024 21:40 EDT Provider Outr Resulting Lab CHEMISTRY & BLOOD GAS ORDERABLES Performing Organization Address City/[facility]/ZIP Co de Phone Number [facility] [address] [place] [phone] * HEPATITIS B CORE ANTIBODY (TOTAL) (02/29/2024 14:40 EDT) Hepatitis B Core Ab, Total Negative Negative 02/29/2024 23:13 EDT [facility] Blood VENOUS BLOOD / Unknown 02/29/2024 14:40 EDT 02/29/2024 21:40 EDT Provider Outr Resulting Lab CHEMISTRY & BLOOD GAS ORDERABLES Performing Organization Address City/[facility]/ZIP Co de Phone Number [facility] [address] [place] [phone] * HEPATITIS B SURFACE ANTIBODY (02/29/2024 14:40 EDT) Hep B Surface Ab, Quantitative <3.1 See Note mIU/mL 02/29/2024 22:30 EDT [facility] Comment: Reference Range for Hep B Surface Ab, Quant: Positive: >= 10.0 mIU/mL Negative: ??< 10.0 mIU/mL Patient is presumed to not be immune to infection with Hepatitis B Virus. Hep B Surface Ab, Qualitative Negative See Note 02/29/2024 22:30 EDT [facility] Comment: Reference Range for Hep B Surface Ab, Qual: Unvaccinated: ??Negative Vaccinated: ??Positive Blood VENOUS BLOOD / Unknown 02/29/2024 14:40 EDT 02/29/2024 21:40 EDT Provider Outr Resulting Lab CHEMISTRY & BLOOD GAS ORDERABLES Performing Organization Address City/[facility]/ZIP Co de Phone Number [facility] [address], [place] [phone] * HEPATITIS B SURFACE ANTIGEN (02/29/2024 14:40 EDT) Hep B Surface Ag Negative Negative 02/29/2024 22:44 EDT [facility] Blood VENOUS BLOOD / Unknown 02/29/2024 14:40 EDT 02/29/2024 21:40 EDT Provider Outr Resulting Lab CHEMISTRY & BLOOD GAS ORDERABLES Performing Organization Address [facility] Co de Phone Number [facility] [address], [place] [phone] * QUANTIFERON MITOGEN (PERFORMABLE) (02/23/2024 13:40 EDT) Blood VENOUS BLOOD / Unknown 02/23/2024 13:40 EDT 02/24/2024 17:50 EDT Provider Outr Resulting Lab IMMUNOLOGY A ND SEROLOGY ORDERABLES Performing Organization Address City/[facility]/ZIP Co de Phone Number [facility] [address], [place] [phone] * QUANTIFERON TB2 (PERFORMABLE) (02/23/2024 13:40 EDT) Blood VENOUS BLOOD / Unknown 02/23/2024 13:40 EDT 02/24/2024 17:50 EDT Provider Outr Resulting Lab IMMUNOLOGY A ND SEROLOGY ORDERABLES Performing Organization Address City/[facility]/ZIP Co de Phone Number [facility] [address] [place] [address] * QUANTIFERON TB1 (PERFORMABLE) (02/23/2024 13:40 EDT) Blood VENOUS BLOOD / Unknown 02/23/2024 13:40 EDT 02/24/2024 17:50 EDT Provider Outr Resulting Lab IMMUNOLOGY A ND SEROLOGY ORDERABLES Performing Organization Address [facility] de Phone Number [facility] [address] [place] [address] * QUANTIFERON NIL (PERFORMABLE) (02/23/2024 13:40 EDT) Blood VENOUS BLOOD / Unknown 02/23/2024 13:40 EDT 02/24/2024 17:50 EDT Provider Outr Resulting Lab IMMUNOLOGY A ND SEROLOGY ORDERABLES Performing Organization Address [facility] de Phone Number [facility] [address] [place] [address] * QUANTIFERON INTERPRETATION (PERFORMABLE) (02/23/2024 13:40 EDT) [facility] Quantiferon Interpretation Negative Negative 02/27/2024 13:45 EDT [facility] Comment:No interferon-gamma response to M. tuberculosis antigens was detected. ??Infection with M. tuberculosis is unlikely. A single negative result does not exclude infection with M. tuberculosis. ??In patients at high risk for M. tuberculosis infection, a second test should be considered. TB1 Ag minus Nil 0.01 IU/ml 02/27/20 13:45 EDT [facility] TB2 Ag minus Nil 0.00 IU/mL 02/27/20 13:45 EDT [facility] Blood VENOUS BLOOD / Unknown 02/23/2024 13:40 EDT 02/27/2024 12:40 EDT Provider Outr Resulting Lab IMMUNOLOGY A ND SEROLOGY ORDERABLES Performing Organization Address [facility] de Phone Number [facility] [address], [place] [phone] from Last 3 Months Care Teams Mender Hand Relationship Specialty Start Date End Date Unknown, Provider, PCP - General 11/19/23
--- OUTSIDE RECORDS SUMMARY | 2024-03-23 03:25 | XMS_ITS | Encounter Summary ---
Author Organization [facility] Address [address] [place] [address] Care Team Providers Care Communications Field Technician Name Role Phone Unknown, Provider Primary Care Provider Encounter Details Date Type Department Care Team (Late st Contact Info) Description 11/30/2023 Lab Requisition [facility] Pathology & Laboratory Medicine - [address] [place] [address] Pressure ulcer of right heel, [...] explore management options, if applicable. 12/05/2023 11:34 [facility] Final Diagnosis A. 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 - Acute serositis and adhesions. - Cholelithiasis. - Benign reactive lymph node. 12/05/2023 11:34 [facility] Attestation There was significan t resident/fellow involvement in the diagnostic evaluation of this case. By the signature below, the attending physician certifies that they have personally conducted a gross and/or microscopic examination of the described specimens and rendered or confirmed the above diagnosis. 12/05/2023 11:34 [facility] at 1134 Clinical History Cholecystitis, S/P cholecystostomy tube insertion 11/16/2023, developed sepsis with WBC 31,000, now open robert 12/05/2023 11:34 [facility] Gross Description A. Received [...] received are several brown-black smooth multifaceted calculi. Foam Fabricator sections are submitted as follows: BLOCK MARIA A1- cystic duct margin, en face and bisected possible periductal lymph node A2-A6- home office representative sections gallbladder wall A7- section separately submitted necrotic saccular tissue A8- home office representative sections separately submitted tissue fragments MELO HILLIARD(ASCP) 11/30/2023 10:55 12/05/2023 11:34 EDT [facility] Resident/Fell ow: Jefry Montez DO 12/05/2023 11:34 EDT [facility] Performing Lab [facility] 12/05/2023 11:34 EDT [facility] Scanned Images 12/05/2023 11:34 EDT [facility] Tissue GALLBLADDER STRUCTURE / Unknown 11/29/2023 14:25 EDT 11/30/2023 8:14 EDT Kirit Tejeda PATHOLOGY ORDERABLES [facility] [address] [place] [address] documented in this encounter Visit Diagnoses Diagnosis Pressure ulcer of right heel, unstageable ([facility]) Hypothyroidism, unspecified Acute cystitis without hematuria Acute cystitis Chronic diastolic (congestive) heart failure ([facility]) Anemia in other chronic diseases classified elsewhere Type 2 diabetes mellitus with hyperglycemia ([facility]) Type II or unspecified type diabetes mellitus without mention of complication, not stated as uncontrolled Type 2 diabetes mellitus with diabetic polyneuropathy ([facility]) Type II or unspecified type diabetes mellitus with neurological manifestations, not stated as uncontrolled Pneumonia, unspecified organism Cholecystitis, unspecified documented in this encounter Care Teams Communications Field Technician Relationship Specialty Start Date End Date Unknown, Provider, PCP - General 11/19/23 documented as of this encounter
--- OUTSIDE RECORDS SUMMARY | 2024-03-23 03:25 | XMS_ITS | Encounter Summary ---
Author Organization [facility] Address [facility] [place] [address] Care Team Providers Care Woodworking Shop Laborer Name Role Phone Unavailable Primary Care Provider Unavailabl e Encounter Details Date Type Department Care Team (Late st Contact Info) Description 11/29/2023 2:20 AM EDT Ancillary Procedure Radiology Library at [facility] [place] [address] Efraín Deras MD [facility] [place] [address] Social History Tobacco Use Types Packs/Day Years [...] 9:30 AM EST Office Visit Dermatology at [facility] [address] [place] [address] Rama Justice MD [facility] DR [address] [place] [address] documented as of this encounter Procedures Procedure Name Priority Date/Time Associated Diagnosis Comments FILM LIBRARY STORAGE ONLY CT CHEST ABDOMEN PELVIS Routine 11/29/2023 2:17 AM EDT documented in this encounter Results * Film Library- Storage Only CT Chest Abdomen Pelvis (11/29/2023 2:17 AM EDT) Narrative [facility] - 11/29/2023 2:17 AM EDT This exam is auto-finalizing. It's purpose is for storage only. Efraín Deras MD [facility] FILM LIBRARY ORD ERABLES Performing Organization Address City/State/[facility] Co de Phone Number KE HAYNES [place], [place] documented in this encounter Visit Diagnoses Not on filedocumented in this encounter
[2024-03-23] MEDS: Levalbuterol HFA 15 GM INH 4 PUFF IH (08:58)
[2024-03-23] MEDS: Inhaler, Assist Device 1 EACH MC (08:59)
--- NOTE | 2024-03-23 11:46 | W.PFT ---
Date of service: 03/23/24 Time of Service: 07:58 Pulmonary Function Test Result Indications: Chronic cough Interpretation Spirometry: There is no airflow limitation.There is restrictive appearing spirometry. There is technically no bronchodilator response, however FEV1 did increase by 14%. Lung Volumes: There is some air trapping Diffusion Capacity: Decreased diffusion Airway Pressure: Normal airways resistance Impression There is a decreased diffusion. This may represent emphysema, early ILD or pulmonary vascular disease. Clinical Correlation therefore is recommended.
== END 2024-03-23 03:21 | disposition home or self-care (01) ==
LOC: RT 03:23
PROVIDERS: PCP Nurse Practitioner Gerontology; Visit Provider Student in an Organized Health Care Education/Training Program
DX: R05.3 Chronic cough (principal)
CPT/HCPCS: 94060; 94726; 94729

== ENCOUNTER 2024-04-19 17:42 | Outpatient (REF) | payer MEDICARE, MEDICAID, SELFPAY ==
[2024-04-19 16:59] LABS: Abs Immature Grans 0.04 10^3/uL (0.0-0.06); Absolute Basophil Count 0.02 10^3/uL (0.0-0.2); Absolute Eosinophil Count 0.23 10^3/uL (0.0-0.7); Absolute Lymphocyte Count 2.07 10^3/uL (1.2-3.4); Absolute Monocyte Count 0.74 10^3/uL (0.1-0.8); Absolute Neutrophil Count 7.77 10^3/uL (1.2-6.7); Basophils % 0.2 %; Eosinophils % 2.1 %; HCT 40.1 % (36.0-46.0); HGB 12.9 g/dL (11.2-15.7); Immature Grans % 0.4 %; MCH 26.5 pg (27.0-33.0); MCHC 32.2 % (32.0-36.0); MCV 82 fL (80-95); MPV 10.1 fL (8.0-11.0); Monocytes % 6.8 %; Neutrophils % 71.5 %; Platelet Count 286 10^3/uL (130-400); RBC 4.87 10^6/uL (3.93-5.22); RDW 14.2 % (11.7-14.6); RDW-SD 42.4 fL; WBC 10.87 10^3/uL (4.4-10.8)
[2024-04-19 17:17] LABS: ALT 27 U/L (14-59); AST 15 U/L (15-37); Albumin 3.5 g/dL (3.4-5.0); Alkaline Phosphatase 73 U/L (46-116); Anion Gap 7.8 mmol/L (3-11); BUN 23 mg/dL (7-18); Bilirubin, Total 0.42 mg/dL (0.2-1.0); CO2 31.2 mmol/L (21.0-32.0); CREATININE 1.1 mg/dL (0.55-1.02); Calcium 9.9 mg/dL (8.5-10.1); Chloride 98 mmol/L (98-107); Estimated GFR 52.73 (mL/min/1.73m2); Glucose 317 mg/dL (74-106); Magnesium 1.8 mg/dL (1.8-2.4); Potassium 4.6 mmol/L (3.5-5.1); Sodium 137 mmol/L (136-145); Total Protein 7.9 g/dL (6.4-8.2)
--- OUTSIDE RECORDS SUMMARY | 2024-04-19 17:44 | XMS_ITS | Clinical Summary ---
Author Organization [facility] Address [address] [place] [address] Care Team Providers Care High School Computer Science Teacher Name Role Phone Unknown, Provider Primary Care Provider Unava ilable Encounters Date Type Department Care Team Description 02/29/2024 Lab Requisition [facility] Pathology & Laboratory [address] [address] Outr Resulting Lab, Provider 02/24/2024 Lab Requisition [facility] Pathology & Laboratory [address] [address] Outr Resulting Lab, Provider from Last 3 [...] Negative Negative 02/29/2024 23:10 EDT [facility] Blood VENOUS BLOOD / Unknown 02/29/2024 14:40 EDT 02/29/2024 21:40 EDT Provider Outr Resulting Lab CHEMISTRY & BLOOD GAS ORDERABLES Performing Organization Address City/[facility]/ZIP Co de Phone Number [facility] [address] [place] [address] * HEPATITIS B CORE ANTIBODY (TOTAL) (02/29/2024 14:40 EDT) Hepatitis B Core Ab, Total Negative Negative 02/29/2024 23:13 EDT [facility] Blood VENOUS BLOOD / Unknown 02/29/2024 14:40 EDT 02/29/2024 21:40 EDT Provider Outr Resulting Lab CHEMISTRY & BLOOD GAS ORDERABLES [facility] [address] [place] [address] * HEPATITIS B SURFACE ANTIBODY (02/29/2024 14:40 EDT) Hep B Surface Ab, Quantitative <3.1 See Note mIU/mL 02/29/2024 22:30 EDT [facility] Comment: Reference Range for Hep B Surface Ab, Quant: Positive: >= 10.0 mIU/mL Negative: ??< 10.0 mIU/mL Patient is presumed to not be immune to infection with Hepatitis B Virus. Hep B Surface Ab, Qualitative Negative See Note 02/29/2024 22:30 EDT [facility] Comment: Reference Range for Hep B Surface Ab, Qual: Unvaccinated: ??Negative Vaccinated: ??Positive Blood VENOUS BLOOD / Unknown 02/29/2024 14:40 EDT 02/29/2024 21:40 EDT Provider Outr Resulting Lab CHEMISTRY & BLOOD GAS ORDERABLES Performing Organization Address [facility] Co de Phone Number [facility] [address] [place] [address] * HEPATITIS B SURFACE ANTIGEN (02/29/2024 14:40 EDT) Hep B Surface Ag Negative Negative 02/29/2024 22:44 EDT [facility] Blood VENOUS BLOOD / Unknown 02/29/2024 14:40 EDT 02/29/2024 21:40 EDT Provider Outr Resulting Lab CHEMISTRY & BLOOD GAS ORDERABLES Performing Organization Address [facility] Co de Phone Number [facility] [address] [place] [address] * QUANTIFERON MITOGEN (PERFORMABLE) (02/23/2024 13:40 EDT) Blood VENOUS BLOOD / Unknown 02/23/2024 13:40 EDT 02/24/2024 17:50 EDT Provider Outr Resulting Lab IMMUNOLOGY A ND SEROLOGY ORDERABLES Performing Organization Address [facility] Co de Phone Number [facility] [address] [place], [place] [phone] * QUANTIFERON TB2 (PERFORMABLE) (02/23/2024 13:40 EDT) Blood VENOUS BLOOD / Unknown 02/23/2024 13:40 EDT 02/24/2024 17:50 EDT Provider Outr Resulting Lab IMMUNOLOGY A ND SEROLOGY ORDERABLES Performing Organization Address [facility] de Phone Number [facility] [address] [place] [address] * QUANTIFERON TB1 (PERFORMABLE) (02/23/2024 13:40 EDT) Blood VENOUS BLOOD / Unknown 02/23/2024 13:40 EDT 02/24/2024 17:50 EDT Provider Outr Resulting Lab IMMUNOLOGY A ND SEROLOGY ORDERABLES Performing Organization Address [facility] de Phone Number [facility] [address] [place] [address] * QUANTIFERON NIL (PERFORMABLE) (02/23/2024 13:40 EDT) Blood VENOUS BLOOD / Unknown 02/23/2024 13:40 EDT 02/24/2024 17:50 EDT Provider Outr Resulting Lab IMMUNOLOGY A ND SEROLOGY ORDERABLES Performing Organization Address [facility] de Phone Number [facility] [address] [place] [address] * QUANTIFERON INTERPRETATION (PERFORMABLE) (02/23/2024 13:40 EDT) Pathologist [facility] Quantiferon Interpretation Negative Negative 02/27/2024 13:45 EDT [facility] Comment:No interferon-gamma response to M. tuberculosis antigens was detected. ??Infection with M. tuberculosis is unlikely. A single negative result does not exclude infection with M. tuberculosis. ??In patients at high risk for M. tuberculosis infection, a second test should be considered. TB1 Ag minus Nil 0.01 IU/ml 02/27/20 13:45 EDT [facility] TB2 Ag minus Nil 0.00 IU/mL 02/27/20 13:45 EDT [facility] Blood VENOUS BLOOD / Unknown 02/23/2024 13:40 EDT 02/27/2024 12:40 EDT Provider Outr Resulting Lab IMMUNOLOGY A ND SEROLOGY ORDERABLES [facility] [address] [place], [place] [address] from Last 3 Months Care Teams High School Computer Science Teacher Relationship Specialty Start Date End Date Unknown, Provider, PCP - General 11/19/23
--- OUTSIDE RECORDS SUMMARY | 2024-04-19 17:44 | XMS_ITS | Clinical Summary ---
Author Organization [facility] Address [facility] [place] [address] Care Team Providers Care Hot Mill Tin Roller Name Role Phone Unavailable Primary Care Provider [...] Team Description 03/06/2024 Specialty Pharmacy [place] [phone] Basilio Rausch CPHT 03/06/2024 Telephone Dermatology at [facility] [address] [place] [address] Rama Justice MD 03/05/2024 Telephone Dermatology at [facility] [address] [place] [address] Rama Justice MD 03/01/20[facility] [address] [place] [address] Rama Justice MD 02/28/2024 [facility] [address] [place] [address] Rama Justice MD 02/28/2024 [facility] [address] [place] [address] Rama Justice MD 02/24/2024 Transcribe Orders Dermatology at [facility] [address] [place] [address] Rama Justice MD Hidradenitis suppurativa; High risk medication use 02/23/2024 Telephone Dermatology at [facility] [address] [place] [address] Rama Justice MD 02/14/2024 11:00 AM EDT Office Visit Dermatology at [facility] [address] [place] [address] Rama Justice MD Hidradenitis suppurativa; Intertrigo from [...] 9:30 AM EST Office Visit Dermatology at [facility] [address] [place] [address] Rama Justice MD [facility] [address] [place] [address] Health Maintenance Due Date Last Done Comments [...]
--- OUTSIDE RECORDS SUMMARY | 2024-04-19 17:44 | XMS_ITS | Encounter Summary ---
Author Organization [facility] Address [facility] [place] [address] Care Team Providers Care Television Maintenance Worker Name Role Phone Unavailable Primary Care Provider Unavailabl e Encounter Details Date Type Department Care Team (Late st Contact Info) Description 03/01/2024 Telephone Dermatology at [facility] [address] [place] [address] Rama Justice MD [facility] DR [address] ROM[place] [address] Social History Tobacco Use Types Packs/Day Years [...] 9:30 AM EST Office Visit Dermatology at [facility] [address] [place] [address] Rama Justice MD [facility] DR [address] ROM[place] [address] documented as of this encounter Visit Diagnoses Not on filedocumented in this encounter
--- OUTSIDE RECORDS SUMMARY | 2024-04-19 17:44 | XMS_ITS | Encounter Summary ---
Author Organization [facility] Address [address] [place] [address] Care Team Providers Care Waiter/Waitress Tourist Class Name Role Phone Unknown, Provider Primary Care Provider Unava ilable Encounter Details Date Type Department Care Team (Late st Contact Info) Description 10/17/2023 Lab Requisition [facility] Pathology & Laboratory Medicine - [address] [address] Outr Resulting Lab, Provider Social History Tobacco [...] 150 - 1,150 mOsm/kg 10/17/2023 16:39 EDT [facility] Urine URINE / Unknown 10/16/2023 1 4:38 EDT 10/17/2023 16:27 EDT Provider Outr Resulting Lab URINALYSIS O RDERABLES [facility] [address] [place], [place] [phone] documented in this encounter Visit Diagnoses Not on filedocumented in this encounter Care Teams Waiter/Waitress Tourist Class Relationship Specialty Start Date End Date Unknown, Provider, PCP - General 11/19/23 documented as of this encounter
--- OUTSIDE RECORDS SUMMARY | 2024-04-19 17:44 | XMS_ITS | Encounter Summary ---
Author Organization [facility] Address [address] [place] [address] Care Team Providers Care Health Type Technician Name Role Phone Unknown, Provider MD Primary Care Provider Unava ilable Encounter Details Date Type Department Care Team (Late st Contact Info) Description 11/30/2023 Lab Requisition [facility] Pathology & Laboratory Medicine - [address] [place] [address] Pressure ulcer of right heel, [...] explore management options, if applicable. 12/05/2023 11:34 [facility] Final Diagnosis A. 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 - Acute serositis and adhesions. - Cholelithiasis. - Benign reactive lymph node. 12/05/2023 11:34 [facility] Attestation There was significan t resident/fellow involvement in the diagnostic evaluation of this case. By the signature below, the attending physician certifies that they have personally conducted a gross and/or microscopic examination of the described specimens and rendered or confirmed the above diagnosis. 12/05/2023 11:34 [facility] at 1134 Clinical History Cholecystitis, S/P cholecystostomy tube insertion 11/16/2023, developed sepsis with WBC 31,000, now open robert 12/05/2023 11:34 [facility] Gross Description A. Received [...] received are several brown-black smooth multifaceted calculi. Kardex Clerk sections are submitted as follows: BLOCK MARIA A1- cystic duct margin, en face and bisected possible periductal lymph node A2-A6- quality audit representative sections gallbladder wall A7- section separately submitted necrotic saccular tissue A8- quality audit representative sections separately submitted tissue fragments MELO HILLIARD(ASCP) 11/30/2023 10:55 12/05/2023 11:[address] [facility] Resident/Fell ow: Jefry Montez, 12/05/2023 11:[address] [facility] Performing Lab [facility] 12/05/2023 11:[address] [facility] Scanned Images 12/05/2023 11:[address] [facility] Tissue GALLBLADDER STRUCTURE / Unknown 11/29/2023 14:25 EDT 11/30/2023 8:14 EDT Kirit Tejeda PATHOLOGY ORDERABLES [facility] [address] [place] [address] documented in this encounter Visit Diagnoses Diagnosis Pressure ulcer of right heel, unstageable ([facility]) Hypothyroidism, unspecified Acute cystitis without hematuria Acute cystitis Chronic diastolic (congestive) heart failure ([facility]) Anemia in other chronic diseases classified elsewhere Type 2 diabetes mellitus with hyperglycemia ([facility]) Type II or unspecified type diabetes mellitus without mention of complication, not stated as uncontrolled Type 2 diabetes mellitus with diabetic polyneuropathy ([facility]) Type II or unspecified type diabetes mellitus with neurological manifestations, not stated as uncontrolled Pneumonia, unspecified organism Cholecystitis, unspecified documented in this encounter Care Teams Health Type Technician Relationship Specialty Start Date End Date Unknown, Provider, PCP - General 11/19/23 documented as of this encounter
--- OUTSIDE RECORDS SUMMARY | 2024-04-19 17:44 | XMS_ITS | Encounter Summary ---
Author Organization [facility] Address [facility] [place] [address] Care Team Providers Care Spiral Runner Name Role Phone Unavailable Primary Care Provider Unavailabl e Reason for Referral * Diagnostic Test (Routine) - Pending Review Specialty Diagnoses / Procedures Referred By Silvana taylor Referred To Contact Radiology Diagnoses Acute cholecystitis Procedures IR Cholecystostomy Tube Placement Merissa Oakes PA [facility] [place] [address] [place] [address] Referral ID Status Reason Start Date Expiration Date Visits Requested Visits Authorized [id number] Pending Review Specialty Service Requested 11/15/2023 05/17/2025 1 1 Reason for Visit * Diagnostic Test (Routine) - Pending Review Specialty Diagnoses / Procedures Referred By Silvana taylor Referred To Contact Radiology Diagnoses Acute cholecystitis Procedures IR Cholecystostomy Tube Placement Merissa Oakes PA [facility] [place] [address] [place] [address] Referral ID Status Reason Start Date Expiration Date Visits Requested Visits Authorized [id number] Pending Review Specialty Service Requested 11/15/2023 05/17/2025 1 1 Encounter Details Date Type Department Care Team (Latest Contact Info) Description 11/16/2023 12:36 PM EDT - 11/16/2023 11:59 PM EDT Hospital [place] [address] Efraín Teran, [facility] [place] [address] Acute cholecystitis Discharge Disposition: Home Social History [...] or any other surface. Always put a travel registered nurse nicu on the end to keep clean. 11. If you drainage bags starts to have an odor, you can clean the bag after removing it from the tube. Turn the stopcock to off. Put on a travel registered nurse nicu to the end of the stopcock to [...] is during regular office hours, please call [phone]. If it is after regular office hours, or on weekends or holidays, please call [phone] and ask to speak to the Cut Tobacco Bulker one piece expansion maker hand for Interventional Radiology. XX You have received [...] Questions Answers Where will study be performed? [facility] Radiology [120] To be scheduled Next available after expected date Reason for exam and clinical history: Suspected acute cholecystitis, down/back procedure from [facility] Is the patient on anticoagulant / antiplatelet [...] Service contacted by Dr. Alexandro Smith at [facility] at 09:10 11/14 regarding the procedure request below. There are no answered order specific questions. History of Present Illness: Per chart review, Nilam Dyer is a 73 y.o. female currently admittedto [facility] for gallstone pancreatitis with rising leukocytosis, [...] 9:30 AM EST Office Visit Dermatology at [facility] [address] [place] [address] Rama Justice MD [facility] [address] [place] [address] documented as of this encounter Procedures Procedure [...] Glucose, POC 94 65 - 199 mg/dL [facility] Comment: Supplemental ranges: <140 mg/dL before meals <180 mg/dL all other times of the day Blood 11/16/2023 3:18 PM EDT 11/16/2023 3:18 PM EDT Efraín Teran DO POINT OF CARE TEST O RDERARANDELL [facility] [place] [place] [address] * IR Cholecystostomy Tube Placement (11/16/2023 2:57 [...] the tract was dilated and a 10 Sri [place]ankan Fr locking pigtail drain was advanced into [...] discharge to return via hospital transfer to [facility], when meets criteria Resident/Fellow: Alvin Harris MD Attending: Dr. Mendiola I, Dr. Mendiola, was present throughout the procedure. I was present during the intraservice time as documented by the IR Nurse. ?? Efraín Teran DO IMG IR ORDERABLES * Anaerobic Culture (11/16/2023 2:35 PM EDT) Anaerobic Culture No anaerobic organisms isolated [facility] Bile 11/16/2023 2:35 PM EDT 11/16/2023 3:54 PM EDT Comment:Cholecystomy Narrative Resulting Agency Comment Spec In Lab Jose Mendiola MD MICROBIOLOGY - GENER AL ORDERABLES Performing Organization Address City/State/[facility] Co de Phone Number [facility] [place] [phone] * (ABNORMAL) Body Fluid Culture, Aerobic (11/16/2023 2:35 PM EDT) Body Fluid Culture Many Escherichia coli(A) [facility] Gram Stain Few Neutrophils seen Moderate Gram Negative Rods (A) [facility] Organism Escherichia coli(A) [facility] Bile 11/16/2023 2:35 PM EDT 11/16/2023 [...] - GENER AL ORDERABLES Performing Organization Address [facility] Co de Phone Number [facility] [place] [address] * POCT Glucose (11/16/2023 1:35 PM EDT) Glucose, POC 84 65 - 199 mg/dL [facility] Comment: Supplemental ranges: <140 mg/dL before meals <180 mg/dL all other times of the day Blood 11/16/2023 1:35 PM EDT 11/16/2023 1:35 PM EDT Efraín Teran DO POINT OF CARE TEST O RDERABLES Performing Organization Address [facility] Co de Phone Number [facility] [place] [address] documented in this encounter Visit Diagnoses Diagnosis [...]
--- OUTSIDE RECORDS SUMMARY | 2024-04-19 17:44 | XMS_ITS | Encounter Summary ---
Author Organization [facility] [place] [address] Care Team Providers Care Gastroenterology Technician Name Role Phone Unavailable Primary Care Provider Unavailabl e Reason for Referral * Diagnostic Test (Routine) - Pending Review Specialty Diagnoses / Procedures Referred By Silvana taylor Referred To Contact Radiology Diagnoses Acute cholecystitis Procedures IR Cholecystostomy Tube Placement Merissa Oakes PA [facility] [place] [place] [address] [place] [address] Referral ID Status Reason Start Date Expiration Date Visits Requested Visits Authorized [id number] Pending Review Specialty Service Requested 11/15/2023 05/17/2025 1 1 Encounter Details Date Type Department Care Team (Late st Contact Info) Description 11/15/2023 Orders [place] [address] Merissa Oakes PA [facility] [place] [address] Acute cholecystitis Social History Tobacco [...] Service contacted by Dr. Alexandro Smith at [facility] at 09:10 11/14 regarding the procedure request below. There are no answered order specific questions. History of Present Illness: Per chart review, Nilam Dyer is a 73 y.o. female currently admitted[facility] for gallstone pancreatitis with rising leukocytosis, positive [...] [facility] [address] [place] [address] Rama Justice MD [facility] [address] [place] [address] documented as of this encounter Results * [...] the tract was dilated and a 10 Yoruba Fr locking pigtail drain was advanced into [...] discharge to return via hospital transfer to [facility], when meets criteria Resident/Fellow: Alvin Harris MD Attending: Dr. Mendiola I, Dr. Mendiola, was present throughout the procedure. I was present during the intraservice time as documented by the IR Nurse. ?? Efraín Teran DO IMG IR ORDERABLES documented in this encounter Visit Diagnoses Diagnosis Acute cholecystitis Acute cholecystitis documented in this encounter
--- OUTSIDE RECORDS SUMMARY | 2024-04-19 17:44 | XMS_ITS | Encounter Summary ---
Author Organization [facility] Address [facility] [place] [address] Care Team Providers Care Automobile Service Station Attendant Name Role Phone Unavailable Primary Care Provider Unavailabl e Encounter Details Date Type Department Care Team (Late st Contact Info) Description 02/28/2024 Telephone Dermatology at [facility] [address] [place] [address] Rama Justice MD [facility] [address] [place] [address] Social History Tobacco Use Types [...] a phone call from Faith at the [facility] where Nilam Dyer lives. She was wondering if the labs that Dr. Justice needs could be drawn at their facility and if we can fax over the orders? The fax # is [phone]. If anything further is needed their phone number is [phone] (ask for Faith) documented in this encounter Plan of Treatment Upcoming Encounters Date Type Department Care Team (Late st Contact Info) Description 05/29/2024 9:30 AM EST Office Visit Dermatology at [facility] [address] [place] [address] Rama Justice MD [facility] DR [address] [place] [address] documented as of this encounter Visit Diagnoses Not on filedocumented in this encounter
--- OUTSIDE RECORDS SUMMARY | 2024-04-19 17:44 | XMS_ITS | Encounter Summary ---
Author Organization [facility] Address [facility] [place] [address] Care Team Providers Care Remnant Sorter Name Role Phone Unavailable Primary Care Provider Unavailabl e Reason for Visit * Reason Comments Prior Authorization Cosentyx Sensoready Pens. 150mg/mL x 2 Encounter Details Date Type Department Care Team (Late st Contact Info) Description 03/06/2024 Specialty [place] [address] Basilio Rausch CPHT Social History Tobacco Use [...] MG/2 PENS (150 MG/ML) SUBCUTANEOUS Medication ID: [id number] Approval Dates: 06/20/2023 to 08/27/2024 Insurance requirements/notes: None Other Notes: None Case/Reference #: Approval notification Received via: Telephone Copay: $0.00 Copay assistance: None Copay Notes: Insurance mandated Pharmacy: [facility]: Yes Patient Notified: To be contacted by [facility] for consult Pharmacy staff will be reaching out to the patient to inform them of their medication's [facility]. If applicable, a pharmacist will speak with the patient to offer our specialty pharmacy services and to arrange delivery of their medication. Basilio Rausch CPHT 03/06/24 8:45 AM documented in this encounter Plan of Treatment Upcoming Encounters Date Type Department Care Team (Late st Contact Info) Description 05/29/2024 9:30 AM EST Office Visit Dermatology at [facility] [address] [place] [address] [facility] [address] [place] [address] documented as of this encounter Visit Diagnoses Not on filedocumented in this encounter
--- OUTSIDE RECORDS SUMMARY | 2024-04-19 17:44 | XMS_ITS | Encounter Summary ---
Author Organization [facility] Address [address] [place] [address] Care Team Providers Care Lead Producer Name Role Phone Unknown, Provider Primary Care Provider Unava ilable Encounter Details Date Type Department Care Team (Late st Contact Info) Description 02/29/2024 Lab Requisition [facility] Pathology & Laboratory Medicine - [address] [address] Outr Resulting Lab, Provider Social History Tobacco [...] <3.1 See Note mIU/mL 02/29/2024 22:30 EDT [facility] Comment: Reference Range for Hep B Surface Ab, Quant: Positive: >= 10.0 mIU/mL Negative: ??< 10.0 mIU/mL Patient is presumed to not be immune to infection with Hepatitis B Virus. Hep B Surface Ab, Qualitative Negative See Note 02/29/2024 22:30 EDT [facility] Comment: Reference Range for Hep B Surface Ab, Qual: Unvaccinated: ??Negative Vaccinated: ??Positive Blood VENOUS BLOOD / Unknown 02/29/2024 14:40 EDT 02/29/2024 21:40 EDT Provider Outr Resulting Lab CHEMISTRY & BLOOD GAS ORDERABLES [facility] [address] [place] [address] * HEPATITIS B CORE ANTIBODY (TOTAL) (02/29/2024 14:40 EDT) Hepatitis B Core Ab, Total Negative Negative 02/29/2024 23:13 EDT [facility] Blood VENOUS BLOOD / Unknown 02/29/2024 14:40 EDT 02/29/2024 21:40 EDT Provider Outr Resulting Lab CHEMISTRY & BLOOD GAS ORDERABLES Performing Organization Address City/[facility] Co de Phone Number [facility] [address] [place] [phone] * HEPATITIS B SURFACE ANTIGEN (02/29/2024 14:40 EDT) Hep B Surface Ag Negative Negative 02/29/2024 22:44 EDT [facility] Blood VENOUS BLOOD / Unknown 02/29/2024 14:40 EDT 02/29/2024 21:40 EDT Provider Outr Resulting Lab CHEMISTRY & BLOOD GAS ORDERABLES Performing Organization Address [facility] Co de Phone Number [facility] [address] [place] [address] * HEPATITIS C AB W REFLEX TO HCV RNA BY PCR (02/29/2024 14:40 EDT) Hep C Antibody Negative Negative 02/29/2024 23:10 EDT [facility] Blood VENOUS BLOOD / Unknown 02/29/2024 14:40 EDT 02/29/2024 21:40 EDT Provider Outr Resulting Lab CHEMISTRY & BLOOD GAS ORDERABLES [facility] [address] [place], [place] [phone] documented in this encounter Visit Diagnoses Not on filedocumented in this encounter Care Teams Lead Producer Relationship Specialty Start Date End Date Unknown, Provider, PCP - General 11/19/23 documented as of this encounter
--- OUTSIDE RECORDS SUMMARY | 2024-04-19 17:44 | XMS_ITS | Encounter Summary ---
Author Organization [facility] Address [facility] [place] [address] Care Team Providers Care Electric Tripper Machine Operator Name Role Phone Unavailable Primary Care Provider Unavailabl e Encounter Details Date Type Department Care Team (Latest Contact Info) Description 02/24/2024 Transcribe Orders Dermatology at [facility] [address] [place] [address] Rama Justice MD [facility] [place] [address] Hidradenitis suppurativa; High risk medication use Social [...] 9:30 AM EST Office Visit Dermatology at [facility] [address] [place] [address] Rama Justice MD [facility] [place] [address] Scheduled Orders Name Type Priority Associated Diagnoses [...]
--- OUTSIDE RECORDS SUMMARY | 2024-04-19 17:44 | XMS_ITS | Encounter Summary ---
Author Organization [facility] Address [address] [place] [address] Care Team Providers Care Cancer Genetics Assistant Name Role Phone Unknown, Provider Primary Care Provider Unava ilable Encounter Details Date Type Department Care Team (Late st Contact Info) Description 02/24/2024 Lab Requisition [facility] Pathology & Laboratory Medicine - [address] [address] Outr Resulting Lab, Provider Social History Tobacco [...] Quantiferon Interpretation Negative Negative 02/27/2024 13:45 EDT [facility] Comment:No interferon-gamma response to M. tuberculosis antigens was detected. ??Infection with M. tuberculosis is unlikely. A single negative result does not exclude infection with M. tuberculosis. ??In patients at high risk for M. tuberculosis infection, a second test should be considered. TB1 Ag minus Nil 0.01 IU/ml 02/27/20 13:45 EDT [facility] TB2 Ag minus Nil 0.00 IU/mL 02/27/20 13:45 EDT [facility] Blood VENOUS BLOOD / Unknown 02/23/2024 13:40 EDT 02/27/2024 12:40 EDT Provider Outr Resulting Lab IMMUNOLOGY A ND SEROLOGY ORDERABLES Performing Organization Address City/[facility]/ZIP Co de Phone Number [facility] [address] [place], [place] [phone] * QUANTIFERON MITOGEN (PERFORMABLE) (02/23/2024 13:40 EDT) Blood VENOUS BLOOD / Unknown 02/23/2024 13:40 EDT 02/24/2024 17:50 EDT Provider Outr Resulting Lab IMMUNOLOGY A ND SEROLOGY ORDERABLES Performing Organization Address City/[facility] Co de Phone Number [facility] [address], [place] [phone] * QUANTIFERON TB2 (PERFORMABLE) (02/23/2024 13:40 EDT) Blood VENOUS BLOOD / Unknown 02/23/2024 13:40 EDT 02/24/2024 17:50 EDT Provider Outr Resulting Lab IMMUNOLOGY A ND SEROLOGY ORDERABLES Performing Organization Address [facility]/ZIP Co de Phone Number [facility] [address], [place] [phone] * QUANTIFERON TB1 (PERFORMABLE) (02/23/2024 13:40 EDT) Blood VENOUS BLOOD / Unknown 02/23/2024 13:40 EDT 02/24/2024 17:50 EDT Provider Outr Resulting Lab IMMUNOLOGY A ND SEROLOGY ORDERABLES Performing Organization Address [facility] de Phone Number [facility] [address] [place] [address] * QUANTIFERON NIL (PERFORMABLE) (02/23/2024 13:40 EDT) Blood VENOUS BLOOD / Unknown 02/23/2024 13:40 EDT 02/24/2024 17:50 EDT Provider Outr Resulting Lab IMMUNOLOGY A ND SEROLOGY ORDERABLES Performing Organization Address [facility] Co de Phone Number [facility] [address], [place] [phone] documented in this encounter Visit Diagnoses Not on filedocumented in this encounter Care Teams Cancer Genetics Assistant Relationship Specialty Start Date End Date Unknown, Provider, PCP - General 11/19/23 documented as of this encounter
--- OUTSIDE RECORDS SUMMARY | 2024-04-19 17:44 | XMS_ITS | Referral Summary ---
Author Organization [facility] Address [address] [place] [address] Care Team Providers Care Athletic Director Name Role Phone Unknown, Provider Primary Care Provider Unava ilable Encounters Date Type Department Care Team Description 02/29/2024 Lab Requisition [facility] Pathology & Laboratory [address] [address] Outr Resulting Lab, Provider 02/24/2024 Lab Requisition [facility] Pathology & Laboratory [address] [address] Outr Resulting Lab, Provider from Last 3 [...] C Antibody Negative Negative 02/29/2024 23:10 EDT [facility] Blood VENOUS BLOOD / Unknown 02/29/2024 14:40 EDT 02/29/2024 21:40 EDT Provider Outr Resulting Lab CHEMISTRY & BLOOD GAS ORDERABLES Performing Organization Address City/[facility]/ZIP Co de Phone Number [facility] [address] [place] [address] * HEPATITIS B CORE ANTIBODY (TOTAL) (02/29/2024 14:40 EDT) Hepatitis B Core Ab, Total Negative Negative 02/29/2024 23:13 EDT [facility] Blood VENOUS BLOOD / Unknown 02/29/2024 14:40 EDT 02/29/2024 21:40 EDT Provider Outr Resulting Lab CHEMISTRY & BLOOD GAS ORDERABLES Performing Organization Address City/[facility]/ZIP Co de Phone Number [facility] [address] [place] [address] * HEPATITIS B SURFACE ANTIBODY (02/29/2024 14:40 EDT) Hep B Surface Ab, Quantitative <3.1 See Note mIU/mL 02/29/2024 22:30 EDT [facility] Comment: Reference Range for Hep B Surface Ab, Quant: Positive: >= 10.0 mIU/mL Negative: ??< 10.0 mIU/mL Patient is presumed to not be immune to infection with Hepatitis B Virus. Hep B Surface Ab, Qualitative Negative See Note 02/29/2024 22:30 EDT [facility] Comment: Reference Range for Hep B Surface Ab, Qual: Unvaccinated: ??Negative Vaccinated: ??Positive Blood VENOUS BLOOD / Unknown 02/29/2024 14:40 EDT 02/29/2024 21:40 EDT Provider Outr Resulting Lab CHEMISTRY & BLOOD GAS ORDERABLES Performing Organization Address [facility]/ZIP Co de Phone Number [facility] [address] [place], [place] [id number] * HEPATITIS B SURFACE ANTIGEN (02/29/2024 14:40 EDT) Hep B Surface Ag Negative Negative 02/29/2024 22:44 EDT [facility] Blood VENOUS BLOOD / Unknown 02/29/2024 14:40 EDT 02/29/2024 21:40 EDT Provider Outr Resulting Lab CHEMISTRY & BLOOD GAS ORDERABLES Performing Organization Address City/[facility] Co de Phone Number [facility] [address] [place], [place] [id number] * QUANTIFERON MITOGEN (PERFORMABLE) (02/23/2024 13:40 EDT) Blood VENOUS BLOOD / Unknown 02/23/2024 13:40 EDT 02/24/2024 17:50 EDT Provider Outr Resulting Lab IMMUNOLOGY A ND SEROLOGY ORDERABLES Performing Organization Address City/[facility] Co de Phone Number [facility] [address], [place] [address] * QUANTIFERON TB2 (PERFORMABLE) (02/23/2024 13:40 EDT) Blood VENOUS BLOOD / Unknown 02/23/2024 13:40 EDT 02/24/2024 17:50 EDT Provider Outr Resulting Lab IMMUNOLOGY A ND SEROLOGY ORDERABLES Performing Organization Address City/[facility]/ZIP Co de Phone Number [facility] [address] [place] [phone] * QUANTIFERON TB1 (PERFORMABLE) (02/23/2024 13:40 EDT) Blood VENOUS BLOOD / Unknown 02/23/2024 13:40 EDT 02/24/2024 17:50 EDT Provider Outr Resulting Lab IMMUNOLOGY A ND SEROLOGY ORDERABLES Performing Organization Address [facility] de Phone Number [facility] [address] [place] [address] * QUANTIFERON NIL (PERFORMABLE) (02/23/2024 13:40 EDT) Blood VENOUS BLOOD / Unknown 02/23/2024 13:40 EDT 02/24/2024 17:50 EDT Provider Outr Resulting Lab IMMUNOLOGY A ND SEROLOGY ORDERABLES Performing Organization Address [facility] de Phone Number [facility] [address] [place] [phone] * QUANTIFERON INTERPRETATION (PERFORMABLE) (02/23/2024 13:40 EDT) [facility] Quantiferon Interpretation Negative Negative 02/27/2024 13:45 EDT [facility] Comment:No interferon-gamma response to M. tuberculosis antigens was detected. ??Infection with M. tuberculosis is unlikely. A single negative result does not exclude infection with M. tuberculosis. ??In patients at high risk for M. tuberculosis infection, a second test should be considered. TB1 Ag minus Nil 0.01 IU/ml 02/27/20 13:45 EDT [facility] TB2 Ag minus Nil 0.00 IU/mL 02/27/20 13:45 EDT [facility] Blood VENOUS BLOOD / Unknown 02/23/2024 13:40 EDT 02/27/2024 12:40 EDT Provider Outr Resulting Lab IMMUNOLOGY A ND SEROLOGY ORDERABLES Performing Organization Address [facility]/State/ZIP Co de Phone Number [facility] [address] [place] [address] from Last 3 Months Care Teams Athletic Director Relationship Specialty Start Date End Date Unknown, Provider, PCP - General 11/19/23
--- OUTSIDE RECORDS SUMMARY | 2024-04-19 17:44 | XMS_ITS | Encounter Summary ---
Author Organization [facility] Address [facility] [place] [address] Care Team Providers Care Monorail Car Operator Name Role Phone Unavailable Primary Care [...] 9:30 AM EST Office Visit Dermatology at [facility] [address] [place] [address] Rama Justice MD [facility] DR [address] [place] [address] documented as of this encounter Visit Diagnoses Not on filedocumented in this encounter
--- OUTSIDE RECORDS SUMMARY | 2024-04-19 17:44 | XMS_ITS | Encounter Summary ---
Author Organization [facility] Address [facility] [place] [address] Care Team Providers Care Wellness Coordinator Name Role Phone Unavailable Primary Care Provider Unavailabl e Encounter Details Date Type Department Care Team (Late st Contact Info) Description 02/14/2024 11:00 AM EDT Office Visit Dermatology at [facility] [address] [place] [address] Rama Justice MD [facility] [address] [place] [address] Hidradenitis suppurativa; Intertrigo Social History Tobacco Use [...] history of IBD - Per discussion with [facility] staff, nurse practioner on staff needs paper [...] if still active. - Per discussion with [facility] staff, nurse practioner on staff needs paper prescriptions priorto writing his/her own prescriptions. Provided paper prescriptions for the above medications. Other: N/A RTC: 3 month HS follow up [x]Note routed to accredited legal secretary []Recall placed in scheduling system []Appointment scheduled at checkout Scribe attestation: DERRICK White has performed the documentation for this encounter in the presence of and acting as a scribe for Rama Justice MD. I performed the above scribed service and agree with the accuracy of the documentation in this encounter. Reviewed and signed by: Rama Justice MD Dermatology [facility] documented in this encounter Plan of Treatment Upcoming Encounters Date Type Department Care Team (Late st Contact Info) Description 05/29/2024 9:30 AM EST Office Visit Dermatology at [facility] [address] [place] [address] Rama Justice MD [facility] DR [address] [place] [address] documented as of this encounter Visit Diagnoses Diagnosis Hidradenitis suppurativa Hidradenitis Intertrigo Other specified erythematous condition documented in this encounter
--- OUTSIDE RECORDS SUMMARY | 2024-04-19 17:44 | XMS_ITS | Encounter Summary ---
Author Organization [facility] Address [facility] [place] [address] Care Team Providers Care Glass Mould Cleaner Name Role Phone Unavailable Primary Care Provider Unavailabl e Encounter Details Date Type Department Care Team (Late st Contact Info) Description 03/05/2024 Telephone Dermatology at [facility] [address] [place] [address] Rama Justice MD [facility] DR [address] MAR[address] [place] [address] Social History Tobacco Use Types [...] submit a PA? She is in a fdc and I do not believe they have a dermatologsit to submit the prescription. Thank you! documented in this encounter Plan of Treatment Upcoming Encounters Date Type Department Care Team (Late st Contact Info) Description 05/29/2024 9:30 AM EST Office Visit Dermatology at [facility] [address] [place] [address] Rama Justice MD [facility] DR [address] MARIE [place] [address] documented as of this encounter Visit Diagnoses Not on filedocumented in this encounter
--- OUTSIDE RECORDS SUMMARY | 2024-04-19 17:44 | XMS_ITS | Encounter Summary ---
Author Organization [facility] Address [address] [place] [address] Care Team Providers Care Candle Pourer Name Role Phone Unknown, Provider Primary Care Provider Unava ilable Encounter Details Date Type Department Care Team (Late st Contact Info) Description 10/17/2023 Lab Requisition [facility] Pathology & Laboratory Medicine - [address] [address] Outr Resulting Lab, Provider Social History Tobacco [...] 275 - 295 mOsm/kg 10/17/2023 16:57 EDT [facility] Blood VENOUS BLOOD / Unknown 10/16/2023 13:39 EDT 10/17/2023 16:27 EDT Provider Outr Resulting Lab CHEMISTRY & BLOOD GAS ORDERABLES [facility] [address] [place], [place] [address] documented in this encounter Visit Diagnoses Not on filedocumented in this encounter Care Teams Candle Pourer Relationship Specialty Start Date End Date Unknown, Provider, PCP - General 11/19/23 documented as of this encounter
--- OUTSIDE RECORDS SUMMARY | 2024-04-19 17:44 | XMS_ITS | Encounter Summary ---
Author Organization [facility] Address [facility] [place] [address] Care Team Providers Care Heavy Duty Mechanic Name Role Phone Unavailable Primary Care Provider Unavailabl e Encounter Details Date Type Department Care Team (Late st Contact Info) Description 12/06/2023 Notes [place] [phone] Jose Mendiola MD [facility] [place] [address] Social History Tobacco Use Types Packs/Day Years [...] 6 wk fu Presenting Diagnosis/ Complaint: Nilam yDer is a 73 y.o. female with cholecystostomy tube placed 11/16/23 for gallstone pancreatitis with rising leukocytosis, positive Forrest's sign, CT showing enlarged gallbladder and HIDA showing non-filling GB. Treated with pip/tazo. Past Medical/Surgical History: History reviewed. No pertinent past medical history. Past Surgical History: Procedure Laterality Date IR CHOLECYSTOSTOMY TUBE PLACEMENT 11/16/2023 IR Cholecystostomy Tube Placement 11/16/2023 [facility] INTERVENTIONL RAD Medications: Benzonatate 200 mg [...] EST Office Visit Dermatology at [facility] [address] [place] [address] Rama Justice MD [facility] DR [address] [place] [address] documented as of this encounter Visit Diagnoses Not on filedocumented in this encounter
--- OUTSIDE RECORDS SUMMARY | 2024-04-19 17:44 | XMS_ITS | Encounter Summary ---
Author Organization [facility] Address [facility] [place] [address] Care Team Providers Care Guest Services Name Role Phone Unavailable Primary Care Provider Unavailabl e Encounter Details Date Type Department Care Team (Late st Contact Info) Description 03/06/2024 Telephone Dermatology at [facility] [address] [place] [phone] Rama Justice MD [facility] DR [address] [place] [place] [address] Social History Tobacco Use Types Packs/Day Years [...] Placed a call to the residential of Nilam. Spoke with JANET Martinez and [...] # is Att: Michelle. There is an STORE PLANNER that is in the facility that views [...] 9:30 AM EST Office Visit Dermatology at [facility] [address] [place] [address] Rama Justice MD [facility] DR [place] [address] documented as of this encounter Visit Diagnoses Not on filedocumented in this encounter
--- OUTSIDE RECORDS SUMMARY | 2024-04-19 17:44 | XMS_ITS | Encounter Summary ---
Author Organization [facility] Address [facility] [place] [address] Care Team Providers Care Adjunct Instructor Chemistry Name Role Phone Unavailable Primary Care Provider Unavailabl e Encounter Details Date Type Department Care Team (Late st Contact Info) Description 02/23/2024 Telephone Dermatology at [facility] [address] [place] [address] Rama Justice MD [facility] [address] ANN MARIE LE[place] [address] Social History Tobacco Use Types Packs/Day Years [...] I received a call from Martha at [facility] lab in [place], [place] reaching out regarding the specific Hepatitis [...] 9:30 AM EST Office Visit Dermatology at [facility] [address] [place] [address] Rama Justice MD [facility] DR ANN MARIE LE[place] [address] documented as of this encounter Visit Diagnoses Not on filedocumented in this encounter
--- OUTSIDE RECORDS SUMMARY | 2024-04-19 17:44 | XMS_ITS | Encounter Summary ---
Author Organization [facility] Address [facility] [place] [address] Care Team Providers Care Staining Machine Operator Name Role Phone Unavailable Primary Care Provider Unavailabl e Encounter Details Date Type Department Care Team (Late st Contact Info) Description 02/28/[address] [facility] [address] [place] [phone] Rama Justice MD [facility] DR [address] [place] [address] Social History Tobacco Use Types Packs/Day Years [...] for Nilam as she resides at the [facility]. Faith mentioned they can see some labs have been done at the [facility]. We have not received any labs [...] the results faxed to the office @ [phone]. Faxed lab orders today @ 2:48 PM to [facility] where Nilam resides fax # and phone # is phone number is [phone] Quant Gold Hep C Antibody Hep B Core Antibody Hep B Surface Antibody Hep B Surface Antigen documented in this encounter Plan of Treatment Upcoming Encounters Date Type Department Care Team (Late st Contact Info) Description 05/29/2024 9:30 AM EST Office Visit Dermatology at [facility] [address] [place] [address] Rama Justice MD [facility] DR ANN [place] [address] documented as of this encounter Visit Diagnoses Not on filedocumented in this encounter
--- OUTSIDE RECORDS SUMMARY | 2024-04-19 17:44 | XMS_ITS | Encounter Summary ---
Author Organization [facility] Address [facility] [address] Care Team Providers Care Hydraulic Elevator Constructor Name Role Phone Unavailable Primary Care Provider Unavailabl e Encounter Details Date Type Department Care Team (Late st Contact Info) Description 11/29/2023 2:20 AM EDT Ancillary Procedure Radiology Library [place] [address] Efraín Deras MD [facility] [place] [address] Social History Tobacco Use Types Packs/Day Years [...] 9:30 AM EST Office Visit Dermatology at [facility] [address] [place] [address] Rama Justice MD [facility] DR ANN MARIE [place] [address] documented as of this encounter Procedures Procedure Name Priority Date/Time Associated Diagnosis Comments FILM LIBRARY STORAGE ONLY CT CHEST ABDOMEN PELVIS Routine 11/29/2023 2:17 AM EDT documented in this encounter Results * Film Library- Storage Only CT Chest Abdomen Pelvis (11/29/2023 2:17 AM EDT) Narrative [facility] - 11/29/2023 2:17 AM EDT This exam is auto-finalizing. It's purpose is for storage only. Efraín Deras MD [facility] FILM LIBRARY ORD ERABLES Performing Organization Address City/State/[facility] Co de Phone Number KE HAYNES [place], [place] documented in this encounter Visit Diagnoses Not on filedocumented in this encounter
--- OUTSIDE RECORDS SUMMARY | 2024-04-19 17:44 | XMS_ITS | Encounter Summary ---
Author Organization [facility] Address [address] [place] [address] Care Team Providers Care Sorting Cows Worker Name Role Phone Unknown, Provider Primary Care Provider Unava ilable Encounter Details Date Type Department Care Team (Late st Contact Info) Description 09/05/2023 Lab Requisition [facility] Pathology & Laboratory Medicine - [address] [address] Outr Resulting Lab, Provider Social History Tobacco [...] 201 - 352 mg/dL 09/06/2023 9:56 EDT [facility] Blood VENOUS BLOOD / Unknown 09/05/2023 6:09 EDT 09/05/2023 16:50 EDT Provider Outr Resulting Lab CHEMISTRY & BLOOD GAS ORDERABLES [facility] [address] [place], [place] [address] documented in this encounter Visit Diagnoses Not on filedocumented in this encounter Care Teams Sorting Cows Worker Relationship Specialty Start Date End Date Unknown, Provider, PCP - General 11/19/23 documented as of this encounter
--- OUTSIDE RECORDS SUMMARY | 2024-04-19 17:45 | XMS_ITS | Encounter Summary ---
Author Organization [facility] Address [facility] [place] [address] Care Team Providers Care Social Science Analyst Name Role Phone Unavailable Primary Care Provider Unavailabl e Encounter Details Date Type Department Care Team (Late st Contact Info) Description 11/14/2023 Ancillary Procedure Radiology Library [place] [address] Morgan Beauchamp MD [facility] DIAGNOSTIC [place] [address] Social History Tobacco Use Types Packs/Day Years [...] Dermatology at [facility] [address] [place] [address] Rama Justice MD [facility] DR ANN MARIE ROM[place] [address] documented as of this encounter Procedures Procedure Name Priority Date/Time Associated Diagnosis Comments FILM LIBRARY STORAGE ONLY CT ABDOMEN Routine 11/14/2023 12:00 AM EDT documented in this encounter Results * Film Library- Storage Only CT Abdomen (11/14/2023 12:00 AM EDT) Narrative [facility] - 11/15/2023 9:10 AM EDT This exam is auto-finalizing. It's purpose is for storage only. Morgan Beauchamp MD IM FILM LIBRARY ORD ERABLES Performing Organization Address City/State/[facility] Co de Phone Number [place], [place] documented in this encounter Visit Diagnoses Not on filedocumented in this encounter
--- OUTSIDE RECORDS SUMMARY | 2024-04-19 17:45 | XMS_ITS | Encounter Summary ---
Author Organization [facility] Address [facility] [place] [address] Care Team Providers Care Carpet Inspector Finished Name Role Phone Unavailable Primary Care Provider Unavailabl e Encounter Details Date Type Department Care Team (Late st Contact Info) Description 11/11/2023 12:05 AM EDT Ancillary Procedure Radiology Library at [facility] [place] [address] Morgan Beauchamp MD [facility] [place] [address] Social History Tobacco Use Types Packs/Day Years [...] 9:30 AM EST Office Visit Dermatology at [facility] [address] [place] [address] Rama Justice MD [facility] DR ANN MARIE [place] [address] documented as of this encounter Procedures Procedure Name Priority Date/Time Associated Diagnosis Comments FILM LIBRARY STORAGE ONLY CT ABDOMEN Routine 11/11/2023 12:05 AM EDT documented in this encounter Results * Film Library- Storage Only CT Abdomen (11/11/2023 12:05 AM EDT) Narrative [facility] - 11/15/2023 9:12 AM EDT This exam is auto-finalizing. It's purpose is for storage only. Morgan Beauchamp MD IM FILM LIBRARY ORD ERABLES Performing Organization Address City/State/[facility] Co de Phone Number [place], [place] documented in this encounter Visit Diagnoses Not on filedocumented in this encounter
--- OUTSIDE RECORDS SUMMARY | 2024-04-19 17:45 | XMS_ITS | Encounter Summary ---
Author Organization [facility] Address [facility] [place] [address] Care Team Providers Care Deputy Fire Chief Name Role Phone Unavailable Primary Care Provider Unavailabl e Encounter Details Date Type Department Care Team (Late st Contact Info) Description 11/11/2023 Ancillary Procedure Radiology Library at [facility] [place] [address] Morgan Beauchamp MD [facility] [place] [address] Social History Tobacco Use Types Packs/Day Years [...] 9:30 AM EST Office Visit Dermatology at [facility] [address] [place] [address] Rama Justice MD [facility] DR [place] [address] documented as of this encounter Procedures Procedure Name Priority Date/Time Associated Diagnosis Comments FILM LIBRARY STORAGE ONLY NUCLEAR MEDICINE Routine 11/11/2023 12:00 AM EDT documented in this encounter Results * Film Library- Storage Only nuclear medicine (11/11/2023 12:00 AM EDT) Narrative [facility] - 11/15/2023 9:11 AM EDT This exam is auto-finalizing. It's purpose is for storage only. Morgan Beauchamp MD [facility] FILM LIBRARY ORD ERABLES Performing Organization Address City/State/[facility] Co de Phone Number [place], [place] documented in this encounter Visit Diagnoses Not on filedocumented in this encounter
== END 2024-04-19 17:43 | disposition home or self-care (01) ==
LOC: LBN 17:42
PROVIDERS: PCP Nurse Practitioner Gerontology; Visit Provider Nurse Practitioner Gerontology
DX: E83.42 Hypomagnesemia (principal); E11.40 Type 2 diabetes mellitus with diabetic neuropathy, unspecified
CPT/HCPCS: 80053; 83735; 85025

== ENCOUNTER 2024-04-28 21:08 | Inpatient (IN) | payer MEDICARE, MEDICAID, SELFPAY ==
[2024-04-28] VITALS (116 sets, daily range): BP systolic 116–159; BP diastolic 62–83; PULSE 87–97; RESP 16–34; TEMP 36.3–36.4; O2SAT 82–100
--- NOTE | 2024-04-28 21:00 | RT.EKG_ITS ---
APPROVED REPORT Exam: Resting ECG Reason for Exam: SOB, CHest pain Patient Location: E HR:90 bpm ECG Measurements Heart Rate 90 AXIS IL 181 P 51 QRSd 131 QRS -64 QT 394 T 44 QTc 484 Conclusion Sinus rhythm...normal P axis, V-rate 60- 99 Left bundle branch block...QRSd>120, broad/notched R
--- NOTE | 2024-04-28 21:15 | DI.RAD_ITS ---
Exam(s) XR CHEST 2V PA LATERAL EXAM: XR CHEST 2V PA LATERAL CLINICAL HISTORY: cough, SOB TECHNIQUE: 2D digital imaging was performed of the chest. Three images were obtained. AP and later al views were obtained. COMPARISON: CR XR PORTABLE CHEST AP from 11/17/2023 CR XR CHEST 2V PA LATERAL from 03/16/[address] CHEST WO from 03/22/2024 FINDINGS: The patient is rotated. MEDIASTINUM: Normal. HEART: Mild cardiomegaly. PULMONARY VASCULATURE: Normal. LUNGS: Clear. PLEURAL SPACE: No pleural effusion or pneumothorax. BONE:Within normal limits for the patient's age. OTHER FINDINGS:Normal. IMPRESSION: No acute pulmonary findings. DATA REPOSITORY: RADIATION DOSE DELIVERED:
--- OUTSIDE RECORDS SUMMARY | 2024-04-28 21:19 | XMS_ITS | Encounter Summary ---
Author Organization [facility] Address [facility] [place] [address] Care Team Providers Care Sole Tier Name Role Phone Unavailable Primary Care Provider Unavailabl e Encounter Details Date Type Department Care Team (Late st Contact Info) Description 11/11/2023 Ancillary Procedure Radiology Library at [facility], [place] [place] [address] Morgan Beauchamp MD [facility] [address] Social History Tobacco Use Types Packs/Day Years [...] at [facility] [address] [place] [address] Rama Justice MD [facility] [place] [address] documented as of this encounter Procedures Procedure Name Priority Date/Time Associated Diagnosis Comments FILM LIBRARY STORAGE ONLY NUCLEAR MEDICINE Routine 11/11/2023 12:00 AM EDT documented in this encounter Results * Film Library- Storage Only nuclear medicine (11/11/2023 12:00 AM EDT) Narrative [facility] - 11/15/2023 9:11 AM EDT This exam is auto-finalizing. It's purpose is for storage only. Morgan Beauchamp MD [facility] FILM LIBRARY ORD ERABLES Performing Organization Address City/State/[facility] Co de Phone Number [place], [place] documented in this encounter Visit Diagnoses Not on filedocumented in this encounter
--- OUTSIDE RECORDS SUMMARY | 2024-04-28 21:19 | XMS_ITS | Encounter Summary ---
Author Organization [facility] Address [address] [place] [address] Care Team Providers Care Machine Wood Sander Name Role Phone Unknown, Provider Primary Care Provider Unava ilable Encounter Details Date Type Department Care Team (Late st Contact Info) Description 10/17/2023 Lab Requisition [facility] Pathology & Laboratory Medicine - [address] [address] Outr Resulting Lab, Provider Social History Tobacco [...] 150 - 1,150 mOsm/kg 10/17/2023 16:39 EDT [facility] Urine URINE / Unknown 10/16/2023 1 4:38 EDT 10/17/2023 16:27 EDT Provider Outr Resulting Lab URINALYSIS O RDERABLES [facility] [address] [place], [place] [address] documented in this encounter Visit Diagnoses Not on filedocumented in this encounter Care Teams Machine Wood Sander Relationship Specialty Start Date End Date Unknown, Provider, PCP - General 11/19/23 documented as of this encounter
--- OUTSIDE RECORDS SUMMARY | 2024-04-28 21:19 | XMS_ITS | Encounter Summary ---
Author Organization [facility] Address [facility] [place] [address] Care Team Providers Care Correspondence Section Supervisor Name Role Phone Unavailable Primary Care Provider Unavailabl e Encounter Details Date Type Department Care Team (Late st Contact Info) Description 03/01/[address] [facility] [address] [place] [address] Rama Justice MD [facility] DR [address] MAR[address] [place] [address] Social History Tobacco Use Types Packs/Day Years [...] AM EST Office Visit Dermatology at [facility] [address] [place] [address] Rama Justice MD [facility] DR [address] MAR[address] [place] [address] documented as of this encounter Visit Diagnoses Not on filedocumented in this encounter
--- OUTSIDE RECORDS SUMMARY | 2024-04-28 21:19 | XMS_ITS | Clinical Summary ---
Author Organization [facility] Address [facility] [place] [address] Care Team Providers Care Mid Level Clinician Name Role Phone Unavailable Primary Care Provider [...] Team Description 03/06/2024 Specialty [place] [phone] Basilio Rausch CPHT 03/06/2024 Telephone Dermatology at [facility] [address] [place] [address] Rama Justice MD 03/05/2024 Telephone Dermatology at [facility] [address] [place] [address] Rama Justice MD 03/01/2024 Telephone [facility] [address] [place] [address] Rama Justice MD 02/28/2024 Telephone [facility] [address] [place] [address] Rama Justice MD 02/28/2024 Telephone [facility] [address] [place] [address] Rama Justice MD 02/24/2024 Transcribe Orders Dermatology at [facility] [address] [place] [address] Rama Justice MD Hidradenitis suppurativa; High risk medication use 02/23/2024 Telephone Dermatology at [facility] [address] [place] [address] Rama Justice MD 02/14/2024 11:00 AM EDT Office Visit Dermatology at [facility] [address] [place] [address] Rama Justice MD Hidradenitis suppurativa; Intertrigo from [...] 9:30 AM EST Office Visit Dermatology at [facility] [address] [place] [address] Rama Justice MD [facility] [address] [place] [address] Health Maintenance Due Date Last Done Comments [...]
--- OUTSIDE RECORDS SUMMARY | 2024-04-28 21:19 | XMS_ITS | Encounter Summary ---
Author Organization [facility] [address] Care Team Providers Care Mill Operator Head Name Role Phone Unavailable Primary Care Provider Unavailabl e Reason for Referral * Diagnostic Test (Routine) - Pending Review Specialty Diagnoses / Procedures Referred By Silvana taylor Referred To Contact Radiology Diagnoses Acute cholecystitis Procedures IR Cholecystostomy Tube Placement Merissa Oakes PA [facility] [place] [address] [place] [address] Referral ID Status Reason Start Date Expiration Date Visits Requested Visits Authorized [id number] Pending Review Specialty Service Requested 11/15/2023 05/17/2025 1 1 Encounter Details Date Type Department Care Team (Late st Contact Info) Description 11/15/2023 [place] [address] [facility] [place] [address] Acute cholecystitis Social History Tobacco [...] Service contacted by Dr. Alexandro Smith at [facility] at 09:10 11/14 regarding the procedure request below. There are no answered order specific questions. History of Present Illness: Per chart review, Nilam Dyer is a 73 y.o. female currently admittedto [facility] for gallstone pancreatitis with rising leukocytosis, positive [...] 9:30 AM EST Office Visit Dermatology at [facility] [address] [place] [address] [facility] [address] MAR[address] [place] [address] documented as of this encounter Results * [...] discharge to return via hospital transfer to [facility], when meets criteria Resident/Fellow: Alvin Harris MD Attending: Dr. Mendiola I, Dr. Mendiola, was present throughout the procedure. I was present during the intraservice time as documented by the IR Nurse. ?? Efraín Teran DO IMG IR ORDERABLES documented in this encounter Visit Diagnoses Diagnosis Acute cholecystitis Acute cholecystitis documented in this encounter
--- OUTSIDE RECORDS SUMMARY | 2024-04-28 21:19 | XMS_ITS | Encounter Summary ---
Author Organization [facility] Address [address] [place] [address] Care Team Providers Care Panel Cutter Name Role Phone Unknown, Provider Primary Care Provider Unava ilable Encounter Details Date Type Department Care Team (Late st Contact Info) Description 02/29/2024 Lab Requisition [facility] Pathology & Laboratory Medicine - [address] [address] Outr Resulting Lab, Provider Social History Tobacco [...] See Note mIU/mL 02/29/2024 22:30 EDT [facility] Comment: Reference Range for Hep B Surface Ab, Quant: Positive: >= 10.0 mIU/mL Negative: ??< 10.0 mIU/mL Patient is presumed to not be immune to infection with Hepatitis B Virus. Hep B Surface Ab, Qualitative Negative See Note 02/29/2024 22:30 EDT [facility] Comment: Reference Range for Hep B Surface Ab, Qual: Unvaccinated: ??Negative Vaccinated: ??Positive Blood VENOUS BLOOD / Unknown 02/29/2024 14:40 EDT 02/29/2024 21:40 EDT Provider Outr Resulting Lab CHEMISTRY & BLOOD GAS ORDERABLES [facility] [address] [place] [address] * HEPATITIS B CORE ANTIBODY (TOTAL) (02/29/2024 14:40 EDT) Hepatitis B Core Ab, Total Negative Negative 02/29/2024 23:13 EDT [facility] Blood VENOUS BLOOD / Unknown 02/29/2024 14:40 EDT 02/29/2024 21:40 EDT Provider Outr Resulting Lab CHEMISTRY & BLOOD GAS ORDERABLES Performing Organization Address City/[facility] Co de Phone Number [facility] [address] [place] [address] * HEPATITIS B SURFACE ANTIGEN (02/29/2024 14:40 EDT) Hep B Surface Ag Negative Negative 02/29/2024 22:44 EDT [facility] Blood VENOUS BLOOD / Unknown 02/29/2024 14:40 EDT 02/29/2024 21:40 EDT Provider Outr Resulting Lab CHEMISTRY & BLOOD GAS ORDERABLES Performing Organization Address [facility] Co de Phone Number [facility] [address] [place] [address] * HEPATITIS C AB W REFLEX TO HCV RNA BY PCR (02/29/2024 14:40 EDT) Hep C Antibody Negative Negative 02/29/2024 23:10 EDT [facility] Blood VENOUS BLOOD / Unknown 02/29/2024 14:40 EDT 02/29/2024 21:40 EDT Provider Outr Resulting Lab CHEMISTRY & BLOOD GAS ORDERABLES [facility] [address] [place], [place] [phone] documented in this encounter Visit Diagnoses Not on filedocumented in this encounter Care Teams Panel Cutter Relationship Specialty Start Date End Date Unknown, Provider, PCP - General 11/19/23 documented as of this encounter
--- OUTSIDE RECORDS SUMMARY | 2024-04-28 21:19 | XMS_ITS | Encounter Summary ---
Author Organization [facility] Address [address] [place] [address] Care Team Providers Care Rubber Mill Operator Name Role Phone Unknown, Provider Primary Care Provider Unava ilable Encounter Details Date Type Department Care Team (Late st Contact Info) Description 09/05/2023 Lab Requisition [facility] Pathology & Laboratory Medicine - [address] [address] Outr Resulting Lab, Provider Social History Tobacco [...] - 352 mg/dL 09/06/2023 9:56 EDT [facility] Blood VENOUS BLOOD / Unknown 09/05/2023 6:09 EDT 09/05/2023 16:50 EDT Provider Outr Resulting Lab CHEMISTRY & BLOOD GAS ORDERABLES [facility] [address] [place], [place] [phone] documented in this encounter Visit Diagnoses Not on filedocumented in this encounter Care Teams Rubber Mill Operator Relationship Specialty Start Date End Date Unknown, Provider, PCP - General 11/19/23 documented as of this encounter
--- OUTSIDE RECORDS SUMMARY | 2024-04-28 21:19 | XMS_ITS | Encounter Summary ---
Author Organization [facility] Address [facility] [place] [address] Care Team Providers Care Executive Pilot Name Role Phone Unavailable Primary Care Provider Unavailabl e Encounter Details Date Type Department Care Team (Latest Contact Info) Description 02/24/2024 Transcribe Orders Dermatology at [facility] [address] [place] [address] Rama Justice MD [facility] [place] [address] Hidradenitis suppurativa; High risk medication use Social [...] at [facility] [address] [place] [address] Rama Justice MD [facility] [place] [address] Scheduled Orders Name Type Priority Associated Diagnoses [...]
--- OUTSIDE RECORDS SUMMARY | 2024-04-28 21:19 | XMS_ITS | Encounter Summary ---
Author Organization [facility] Address [facility] [place] [address] Care Team Providers Care Information Systems Technician Name Role Phone Unavailable Primary Care Provider Unavailabl e Encounter Details Date Type Department Care Team (Late st Contact Info) Description 11/11/2023 12:05 AM EDT Ancillary Procedure Radiology Library at [facility] [place] [address] Morgan Beauchamp MD [facility] DIAGNOSTIC [place] [address] Social History Tobacco Use Types Packs/Day Years [...] 9:30 AM EST Office Visit Dermatology at [facility] [address] [place] [address] Rama Justice MD [facility] DR [address] LEBL[place] [address] documented as of this encounter Procedures Procedure Name Priority Date/Time Associated Diagnosis Comments FILM LIBRARY STORAGE ONLY CT ABDOMEN Routine 11/11/2023 12:05 AM EDT documented in this encounter Results * Film Library- Storage Only CT Abdomen (11/11/2023 12:05 AM EDT) Narrative [facility] - 11/15/2023 9:12 AM EDT This exam is auto-finalizing. It's purpose is for storage only. Morgan Beauchamp MD IM FILM LIBRARY ORD ERABLES Performing Organization Address City/State/[facility] Co de Phone Number [place], [place] documented in this encounter Visit Diagnoses Not on filedocumented in this encounter
--- OUTSIDE RECORDS SUMMARY | 2024-04-28 21:19 | XMS_ITS | Encounter Summary ---
Author Organization [facility] Address [facility] [place] [address] Care Team Providers Care Patient Escort Name Role Phone Unavailable Primary Care Provider Unavailabl e Encounter Details Date Type Department Care Team (Late st Contact Info) Description 02/23/2024 Telephone Dermatology at [facility] [address] [place] [address] Rama Justice MD [facility] [address] [place] [address] Social History Tobacco Use Types Packs/Day Years [...] I received a call from Martha at [facility] lab in [place], [place] reaching out regarding the specific Hepatitis [...] Dermatology at [facility] [address] [place] [address] Rama Justice MD [facility] [address] [place] [address] documented as of this encounter Visit Diagnoses Not on filedocumented in this encounter
--- OUTSIDE RECORDS SUMMARY | 2024-04-28 21:19 | XMS_ITS | Encounter Summary ---
Author Organization [facility] Address [facility] [place] [address] Care Team Providers Care Spa Manager/Esthetician Name Role Phone Unavailable Primary Care Provider Unavailabl e Reason for Visit * Reason Comments Prior Authorization [employer] Sensoready Pens. 150mg/mL x 2 Encounter Details Date Type Department Care Team (Late st Contact Info) Description 03/06/2024 Specialty [place] [address] Basilio Rausch CPHT Social History Tobacco Use [...] MG/2 PENS (150 MG/ML) SUBCUTANEOUS Medication ID: [id number] Approval Dates: 06/20/2023 to 08/27/2024 Insurance requirements/notes: None Other Notes: None Case/Reference #: Approval notification Received via: Telephone Copay: $0.00 Copay assistance: None Copay Notes: Insurance mandated Pharmacy: [facility]: Yes Patient Notified: To be contacted by [facility] for consult Pharmacy staff will be reaching out to the patient to inform [facility] If applicable, a pharmacist will speak with the patient to offer our specialty pharmacy services and to arrange delivery of their medication. Basilio Rausch CPHT 03/06/24 8:45 AM documented in this encounter Plan of Treatment Upcoming Encounters Date Type Department Care Team (Late st Contact Info) Description 05/29/2024 9:30 AM EST Office Visit Dermatology at [facility] [address] [place] [address] Rama Justice MD [facility] DR [address] MAR[address] [place] [address] documented as of this encounter Visit Diagnoses Not on filedocumented in this encounter
--- OUTSIDE RECORDS SUMMARY | 2024-04-28 21:19 | XMS_ITS | Encounter Summary ---
Author Organization [facility] Address [facility] [place] [address] Care Team Providers Care Hot Billet Shear Operator Name Role Phone Unavailable Primary Care Provider Unavailabl e Encounter Details Date Type Department Care Team (Late st Contact Info) Description 02/28/2024 Telephone Dermatology at [facility] [address] [place] [address] Rama Justice MD [facility] [address] [place] [address] Social History Tobacco Use Types Packs/Day Years [...] for Nilam as she resides at the [facility]. Faith mentioned they can see some labs have been done at the [facility]. We have not received any labs [...] the results faxed to the office @ [phone]. Faxed lab orders today @ 2:48 PM to [facility] where Nilam resides fax # and phone # is phone number is [phone] Quant Gold Hep C Antibody Hep B Core Antibody Hep B Surface Antibody Hep B Surface Antigen documented in this encounter Plan of Treatment Upcoming Encounters Date Type Department Care Team (Late st Contact Info) Description 05/29/2024 9:30 AM EST Office Visit Dermatology at [facility] [address] [place] [address] Rama Justice MD [facility] [address] MAR[address] [place] [address] documented as of this encounter Visit Diagnoses Not on filedocumented in this encounter
--- OUTSIDE RECORDS SUMMARY | 2024-04-28 21:19 | XMS_ITS | Encounter Summary ---
Author Organization [facility] Address [facility] [place] [address] Care Team Providers Care Cloth Bale Header Name Role Phone Unavailable Primary Care Provider Unavailabl e Encounter Details Date Type Department Care Team (Late st Contact Info) Description 11/29/2023 2:20 AM EDT Ancillary Procedure Radiology Library [place] [address] Efraín Deras MD [facility] [place] [address] Social History Tobacco Use Types Packs/Day Years [...] EST Office Visit Dermatology at [facility] [address] [place] [address] Rama Justice MD [facility] [address] [place] [address] documented as of this encounter Procedures Procedure [...] is for storage only. Efraín Deras MD [facility] FILM LIBRARY ORD ERABLES Performing Organization Address City/State/[facility] Co de Phone Number [place], [place] documented in this encounter Visit Diagnoses Not on filedocumented in this encounter
--- OUTSIDE RECORDS SUMMARY | 2024-04-28 21:19 | XMS_ITS | Encounter Summary ---
Author Organization [facility] Address [address] [place] [address] Care Team Providers Care Director Clinical Research Name Role Phone Unknown, Provider Primary Care Provider Unava ilable Encounter Details Date Type Department Care Team (Late st Contact Info) Description 02/24/2024 Lab Requisition [facility] Pathology & Laboratory Medicine - [address] [address] Outr Resulting Lab, Provider Social History Tobacco [...] Quantiferon Interpretation Negative Negative 02/27/2024 13:45 EDT [facility] Comment:No interferon-gamma response to M. tuberculosis antigens was detected. ??Infection with M. tuberculosis is unlikely. A single negative result does not exclude infection with M. tuberculosis. ??In patients at high risk for M. tuberculosis infection, a second test should be considered. TB1 Ag minus Nil 0.01 IU/ml 02/27/20 13:45 EDT [facility] TB2 Ag minus Nil 0.00 IU/mL 02/27/20 13:45 EDT [facility] Blood VENOUS BLOOD / Unknown 02/23/2024 13:40 EDT 02/27/2024 12:40 EDT Provider Outr Resulting Lab IMMUNOLOGY A ND SEROLOGY ORDERABLES Performing Organization Address City/[facility]/ZIP Co de Phone Number [facility] [address] [place], [place] [phone] * QUANTIFERON MITOGEN (PERFORMABLE) (02/23/2024 13:40 EDT) Blood VENOUS BLOOD / Unknown 02/23/2024 13:40 EDT 02/24/2024 17:50 EDT Provider Outr Resulting Lab IMMUNOLOGY A ND SEROLOGY ORDERABLES Performing Organization Address City/[facility] Co de Phone Number [facility] [address] [place], [place] [phone] * QUANTIFERON TB2 (PERFORMABLE) (02/23/2024 13:40 EDT) Blood VENOUS BLOOD / Unknown 02/23/2024 13:40 EDT 02/24/2024 17:50 EDT Provider Outr Resulting Lab IMMUNOLOGY A ND SEROLOGY ORDERABLES Performing Organization Address [facility]/ZIP Co de Phone Number [facility] [address] [place], [place] [phone] * QUANTIFERON TB1 (PERFORMABLE) (02/23/2024 13:40 EDT) Blood VENOUS BLOOD / Unknown 02/23/2024 13:40 EDT 02/24/2024 17:50 EDT Provider Outr Resulting Lab IMMUNOLOGY A ND SEROLOGY ORDERABLES Performing Organization Address [facility] de Phone Number [facility] [address] [place] [address] * QUANTIFERON NIL (PERFORMABLE) (02/23/2024 13:40 EDT) Blood VENOUS BLOOD / Unknown 02/23/2024 13:40 EDT 02/24/2024 17:50 EDT Provider Outr Resulting Lab IMMUNOLOGY A ND SEROLOGY ORDERABLES Performing Organization Address [facility] Co de Phone Number [facility] [address] [place], [place] [phone] documented in this encounter Visit Diagnoses Not on filedocumented in this encounter Care Teams Director Clinical Research Relationship Specialty Start Date End Date Unknown, Provider, PCP - General 11/19/23 documented as of this encounter
--- OUTSIDE RECORDS SUMMARY | 2024-04-28 21:19 | XMS_ITS | Referral Summary ---
Author Organization [facility] Address [address] [place] [address] Care Team Providers Care Awning Maker And Installer Name Role Phone Unknown, Provider Primary Care Provider Unava ilable Encounters Date Type Department Care Team Description 02/29/2024 Lab Requisition [facility] Pathology & Laboratory [address] [address] Outr Resulting Lab, Provider 02/24/2024 Lab Requisition [facility] Pathology & Laboratory [address] [address] Outr Resulting Lab, Provider from Last 3 [...] C Antibody Negative Negative 02/29/2024 23:10 EDT [facility] Blood VENOUS BLOOD / Unknown 02/29/2024 14:40 EDT 02/29/2024 21:40 EDT Provider Outr Resulting Lab CHEMISTRY & BLOOD GAS ORDERABLES Performing Organization Address City/[facility]/ZIP Co de Phone Number [facility] [address] [place] [address] * HEPATITIS B CORE ANTIBODY (TOTAL) (02/29/2024 14:40 EDT) Hepatitis B Core Ab, Total Negative Negative 02/29/2024 23:13 EDT [facility] Blood VENOUS BLOOD / Unknown 02/29/2024 14:40 EDT 02/29/2024 21:40 EDT Provider Outr Resulting Lab CHEMISTRY & BLOOD GAS ORDERABLES Performing Organization Address City/[facility]/ZIP Co de Phone Number [facility] [address] [place] [address] * HEPATITIS B SURFACE ANTIBODY (02/29/2024 14:40 EDT) Hep B Surface Ab, Quantitative <3.1 See Note mIU/mL 02/29/2024 22:30 EDT [facility] Comment: Reference Range for Hep B Surface Ab, Quant: Positive: >= 10.0 mIU/mL Negative: ??< 10.0 mIU/mL Patient is presumed to not be immune to infection with Hepatitis B Virus. Hep B Surface Ab, Qualitative Negative See Note 02/29/2024 22:30 EDT [facility] Comment: Reference Range for Hep B Surface Ab, Qual: Unvaccinated: ??Negative Vaccinated: ??Positive Blood VENOUS BLOOD / Unknown 02/29/2024 14:40 EDT 02/29/2024 21:40 EDT Provider Outr Resulting Lab CHEMISTRY & BLOOD GAS ORDERABLES Performing Organization Address [facility]/ZIP Co de Phone Number [facility] [address], [place] [phone] * HEPATITIS B SURFACE ANTIGEN (02/29/2024 14:40 EDT) Hep B Surface Ag Negative Negative 02/29/2024 22:44 EDT [facility] Blood VENOUS BLOOD / Unknown 02/29/2024 14:40 EDT 02/29/2024 21:40 EDT Provider Outr Resulting Lab CHEMISTRY & BLOOD GAS ORDERABLES Performing Organization Address City/[facility] Co de Phone Number [facility] [address], [place] [phone] * QUANTIFERON MITOGEN (PERFORMABLE) (02/23/2024 13:40 EDT) Blood VENOUS BLOOD / Unknown 02/23/2024 13:40 EDT 02/24/2024 17:50 EDT Provider Outr Resulting Lab IMMUNOLOGY A ND SEROLOGY ORDERABLES Performing Organization Address City/[facility] Co de Phone Number [facility] [address], [place] [phone] * QUANTIFERON TB2 (PERFORMABLE) (02/23/2024 13:40 EDT) Blood VENOUS BLOOD / Unknown 02/23/2024 13:40 EDT 02/24/2024 17:50 EDT Provider Outr Resulting Lab IMMUNOLOGY A ND SEROLOGY ORDERABLES Performing Organization Address City/[facility]/ZIP Co de Phone Number [facility] [address] [place] [address] * QUANTIFERON TB1 (PERFORMABLE) (02/23/2024 13:40 EDT) Blood VENOUS BLOOD / Unknown 02/23/2024 13:40 EDT 02/24/2024 17:50 EDT Provider Outr Resulting Lab IMMUNOLOGY A ND SEROLOGY ORDERABLES Performing Organization Address [facility] de Phone Number [facility] [address] [place] [address] * QUANTIFERON NIL (PERFORMABLE) (02/23/2024 13:40 EDT) Blood VENOUS BLOOD / Unknown 02/23/2024 13:40 EDT 02/24/2024 17:50 EDT Provider Outr Resulting Lab IMMUNOLOGY A ND SEROLOGY ORDERABLES Performing Organization Address [facility] de Phone Number [facility] [address] [place] [address] * QUANTIFERON INTERPRETATION (PERFORMABLE) (02/23/2024 13:40 EDT) [facility] Quantiferon Interpretation Negative Negative 02/27/2024 13:45 EDT [facility] Comment:No interferon-gamma response to M. tuberculosis antigens was detected. ??Infection with M. tuberculosis is unlikely. A single negative result does not exclude infection with M. tuberculosis. ??In patients at high risk for M. tuberculosis infection, a second test should be considered. TB1 Ag minus Nil 0.01 IU/ml 02/27/20 13:45 EDT [facility] TB2 Ag minus Nil 0.00 IU/mL 02/27/20 13:45 EDT [facility] Blood VENOUS BLOOD / Unknown 02/23/2024 13:40 EDT 02/27/2024 12:40 EDT Provider Outr Resulting Lab IMMUNOLOGY A ND SEROLOGY ORDERABLES Performing Organization Address [facility]/State/ZIP Co de Phone Number [facility] [address] [place] [address] from Last 3 Months Care Teams Awning Maker And Installer Relationship Specialty Start Date End Date Unknown, Provider, PCP - General 11/19/23
--- OUTSIDE RECORDS SUMMARY | 2024-04-28 21:19 | XMS_ITS | Encounter Summary ---
Author Organization [facility] Address [facility] [place] [address] Care Team Providers Care Helicopter Mechanic Name Role Phone Unavailable Primary Care Provider Unavailabl e Encounter Details Date Type Department Care Team (Late st Contact Info) Description 11/14/2023 Ancillary Procedure Radiology Library at [facility] [address] [facility] [place] [address] Social History Tobacco Use Types Packs/Day Years [...] AM EST Office Visit Dermatology at [facility] [address] [place] [address] [facility] [address] [place] [address] documented as of this encounter Procedures Procedure Name Priority Date/Time Associated Diagnosis Comments FILM LIBRARY STORAGE ONLY CT ABDOMEN Routine 11/14/2023 12:00 AM EDT documented in this encounter Results * Film Library- Storage Only CT Abdomen (11/14/2023 12:00 AM EDT) Narrative [facility] - 11/15/2023 9:10 AM EDT This exam is auto-finalizing. It's purpose is for storage only. Morgan Beauchamp MD IM FILM LIBRARY ORD ERABLES Performing Organization Address City/State/[facility] Co de Phone Number [place], [place] documented in this encounter Visit Diagnoses Not on filedocumented in this encounter
--- OUTSIDE RECORDS SUMMARY | 2024-04-28 21:19 | XMS_ITS | Encounter Summary ---
Author Organization [facility] Address [facility] [place] [address] Care Team Providers Care Revenue Specialist Name Role Phone Unavailable Primary Care Provider Unavailabl e Encounter Details Date Type Department Care Team (Late st Contact Info) Description 03/05/2024 Telephone Dermatology at [facility] [address] [place] [address] Rama Justice MD [facility] [address] [place] [address] Social History Tobacco Use Types [...] submit a PA? She is in a [facility] and I do not believe they have a dermatologsit to submit the prescription. Thank you! documented in this encounter Plan of Treatment Upcoming Encounters Date Type Department Care Team (Late st Contact Info) Description 05/29/2024 9:30 AM EST Office Visit Dermatology at [facility] [address] [place] [address] Rama Justice MD [facility] [address] [place] [address] documented as of this encounter Visit Diagnoses Not on filedocumented in this encounter
--- OUTSIDE RECORDS SUMMARY | 2024-04-28 21:19 | XMS_ITS | Encounter Summary ---
Author Organization [facility] Address [facility] [place] [address] Care Team Providers Care Fish Boning Machine Feeder Name Role Phone Unavailable Primary Care Provider [...] at [facility] [address] [place] [address] Rama Justice MD [facility] [address] [place] [address] documented as of this encounter Visit Diagnoses Not on filedocumented in this encounter
--- OUTSIDE RECORDS SUMMARY | 2024-04-28 21:19 | XMS_ITS | Encounter Summary ---
Author Organization [facility] Address [facility] [place] [address] Care Team Providers Care Heading Matcher And Assembler Name Role Phone Unavailable Primary Care Provider Unavailabl e Encounter Details Date Type Department Care Team (Late st Contact Info) Description 02/14/2024 11:00 AM EDT Office Visit Dermatology at [facility] [address] [place] [address] Rama Justice MD [facility] [address] [place] [address] Hidradenitis suppurativa; Intertrigo Social History Tobacco Use Types Packs/Day Years Used Date Smoking Tobacco: Never Assessed Sex and Gender Information Value Date Recorded Sex Assigned at Not on file Gender Identity Not on file Sexual Orientation Not on file documented as of this encounter Patient Instructions * Patient Instructions* Sheryr Rose LNA - 02/14/2024 11:00 AM EDT [...] history of IBD - Per discussion with prison staff, nurse practioner on staff needs paper [...] if still active. - Per discussion with prison staff, nurse practioner on staff needs paper prescriptions priorto writing his/her own prescriptions. Provided paper prescriptions for the above medications. Other: N/A RTC: 3 month HS follow up [x]Note routed to elementary secretary []Recall placed in scheduling system []Appointment scheduled at checkout Scribe attestation: DERRICK White has performed the documentation for this encounter in the presence of and acting as a scribe for Rama Justice MD. I performed the above scribed service and agree with the accuracy of the documentation in this encounter. Reviewed and signed by: Rama Justice MD Dermatology [facility] documented in this encounter Plan of Treatment Upcoming Encounters Date Type Department Care Team (Late st Contact Info) Description 05/29/2024 9:30 AM EST Office Visit Dermatology at [facility] [address] [place] [address] Rama Justice MD [facility] [address] [place] [address] documented as of this encounter Visit Diagnoses Diagnosis Hidradenitis suppurativa Hidradenitis Intertrigo Other specified erythematous condition documented in this encounter
--- OUTSIDE RECORDS SUMMARY | 2024-04-28 21:19 | XMS_ITS | Encounter Summary ---
Author Organization [facility] Address [facility] [place] [address] Care Team Providers Care Procedure Tech Name Role Phone Unavailable Primary Care Provider Unavailabl e Encounter Details Date Type Department Care Team (Late st Contact Info) Description 02/28/2024 Telephone Dermatology at [facility] [address] [place] [address] Rama Justice MD [facility] [address] [place] [address] Social History Tobacco Use Types [...] a phone call from Faith at the [facility] where Nilam Dyer lives. She was wondering if the labs that Dr. Justice needs could be drawn at their facility and if we can fax over the orders? The fax # is [phone]. If anything further is needed their phone number is [phone] (ask for Faith) documented in this encounter Plan of Treatment Upcoming Encounters Date Type Department Care Team (Late st Contact Info) Description 05/29/2024 9:30 AM EST Office Visit Dermatology at [facility] [address] [place] [address] Rama Justice MD [facility] [address] MAR[address] [place] [address] documented as of this encounter Visit Diagnoses Not on filedocumented in this encounter
--- OUTSIDE RECORDS SUMMARY | 2024-04-28 21:19 | XMS_ITS | Encounter Summary ---
Author Organization [facility] Address [facility] [place] [address] Care Team Providers Care Pallet Stone Inserter Name Role Phone Unavailable Primary Care Provider Unavailabl e Encounter Details Date Type Department Care Team (Late st Contact Info) Description 12/06/2023 Notes [place] [phone] Jose Mendiola MD [facility] [address] [place] [address] Social History Tobacco Use Types Packs/Day Years [...] PLACEMENT 11/16/2023 IR Cholecystostomy Tube Placement 11/16/2023 [facility] INTERVENTIONL RAD Medications: Benzonatate 200 mg [...] 9:30 AM EST Office Visit Dermatology at [facility] [address] [place] [address] Rama Justice MD [facility] [address] [place] [address] documented as of this encounter Visit Diagnoses Not on filedocumented in this encounter
--- OUTSIDE RECORDS SUMMARY | 2024-04-28 21:19 | XMS_ITS | Clinical Summary ---
Author Organization [facility] Address [address] [place] [address] Care Team Providers Care High School Combination Teacher Name Role Phone Unknown, Provider Primary Care Provider Unava ilable Encounters Date Type Department Care Team Description 02/29/2024 Lab Requisition [facility] Pathology & Laboratory [address] [address] Outr Resulting Lab, Provider 02/24/2024 Lab Requisition [facility] Pathology & Laboratory [address] [address] Outr Resulting Lab, Provider from Last 3 [...] Negative Negative 02/29/2024 23:10 EDT [facility] Blood VENOUS BLOOD / Unknown 02/29/2024 14:40 EDT 02/29/2024 21:40 EDT Provider Outr Resulting Lab CHEMISTRY & BLOOD GAS ORDERABLES Performing Organization Address City/[facility]/ZIP Co de Phone Number [facility] [address] [place] [address] * HEPATITIS B CORE ANTIBODY (TOTAL) (02/29/2024 14:40 EDT) Hepatitis B Core Ab, Total Negative Negative 02/29/2024 23:13 EDT [facility] Blood VENOUS BLOOD / Unknown 02/29/2024 14:40 EDT 02/29/2024 21:40 EDT Provider Outr Resulting Lab CHEMISTRY & BLOOD GAS ORDERABLES [facility] [address] [place] [address] * HEPATITIS B SURFACE ANTIBODY (02/29/2024 14:40 EDT) Hep B Surface Ab, Quantitative <3.1 See Note mIU/mL 02/29/2024 22:30 EDT [facility] Comment: Reference Range for Hep B Surface Ab, Quant: Positive: >= 10.0 mIU/mL Negative: ??< 10.0 mIU/mL Patient is presumed to not be immune to infection with Hepatitis B Virus. Hep B Surface Ab, Qualitative Negative See Note 02/29/2024 22:30 EDT [facility] Comment: Reference Range for Hep B Surface Ab, Qual: Unvaccinated: ??Negative Vaccinated: ??Positive Blood VENOUS BLOOD / Unknown 02/29/2024 14:40 EDT 02/29/2024 21:40 EDT Provider Outr Resulting Lab CHEMISTRY & BLOOD GAS ORDERABLES Performing Organization Address [facility] Co de Phone Number [facility] [address] [place] [address] * HEPATITIS B SURFACE ANTIGEN (02/29/2024 14:40 EDT) Hep B Surface Ag Negative Negative 02/29/2024 22:44 EDT [facility] Blood VENOUS BLOOD / Unknown 02/29/2024 14:40 EDT 02/29/2024 21:40 EDT Provider Outr Resulting Lab CHEMISTRY & BLOOD GAS ORDERABLES Performing Organization Address [facility] Co de Phone Number [facility] [address] [place] [address] * QUANTIFERON MITOGEN (PERFORMABLE) (02/23/2024 13:40 EDT) Blood VENOUS BLOOD / Unknown 02/23/2024 13:40 EDT 02/24/2024 17:50 EDT Provider Outr Resulting Lab IMMUNOLOGY A ND SEROLOGY ORDERABLES Performing Organization Address [facility] Co de Phone Number [facility] [address], [place] [phone] * QUANTIFERON TB2 (PERFORMABLE) (02/23/2024 13:40 EDT) Blood VENOUS BLOOD / Unknown 02/23/2024 13:40 EDT 02/24/2024 17:50 EDT Provider Outr Resulting Lab IMMUNOLOGY A ND SEROLOGY ORDERABLES Performing Organization Address [facility] de Phone Number [facility] [address] [place] [address] * QUANTIFERON TB1 (PERFORMABLE) (02/23/2024 13:40 EDT) Blood VENOUS BLOOD / Unknown 02/23/2024 13:40 EDT 02/24/2024 17:50 EDT Provider Outr Resulting Lab IMMUNOLOGY A ND SEROLOGY ORDERABLES Performing Organization Address [facility] de Phone Number [facility] [address] [place] [address] * QUANTIFERON NIL (PERFORMABLE) (02/23/2024 13:40 EDT) Blood VENOUS BLOOD / Unknown 02/23/2024 13:40 EDT 02/24/2024 17:50 EDT Provider Outr Resulting Lab IMMUNOLOGY A ND SEROLOGY ORDERABLES Performing Organization Address [facility] de Phone Number [facility] [address] [place] [address] * QUANTIFERON INTERPRETATION (PERFORMABLE) (02/23/2024 13:40 EDT) Pathologist [facility] Quantiferon Interpretation Negative Negative 02/27/2024 13:45 EDT [facility] Comment:No interferon-gamma response to M. tuberculosis antigens was detected. ??Infection with M. tuberculosis is unlikely. A single negative result does not exclude infection with M. tuberculosis. ??In patients at high risk for M. tuberculosis infection, a second test should be considered. TB1 Ag minus Nil 0.01 IU/ml 02/27/20 13:45 EDT [facility] TB2 Ag minus Nil 0.00 IU/mL 02/27/20 13:45 EDT [facility] Blood VENOUS BLOOD / Unknown 02/23/2024 13:40 EDT 02/27/2024 12:40 EDT Provider Outr Resulting Lab IMMUNOLOGY A ND SEROLOGY ORDERABLES [facility] [address], [place] [address] from Last 3 Months Care Teams High School Combination Teacher Relationship Specialty Start Date End Date Unknown, Provider, PCP - General 11/19/23
--- OUTSIDE RECORDS SUMMARY | 2024-04-28 21:19 | XMS_ITS | Encounter Summary ---
Author Organization [facility] Address [facility] [place] [address] Care Team Providers Care Tinsmith Helper Name Role Phone Unavailable Primary Care Provider Unavailabl e Encounter Details Date Type Department Care Team (Late st Contact Info) Description 03/06/2024 Telephone Dermatology at [facility] [address] [place] [phone] Rama Justice MD [facility] [address] [place] [address] Social History Tobacco Use Types Packs/Day Years [...] 8:30 AM. Placed a call to the longterm of Nilam. Spoke with JANET Martinez and [...] # is Att: Michelle. There is an LINE DRIVER that is in the facility that views [...] submit a PA? She is in a longterm and I do not believe they have [...] 9:30 AM EST Office Visit Dermatology at [facility] [address] [place] [address] Rama Justice MD [facility] [address] [place] [address] documented as of this encounter Visit Diagnoses Not on filedocumented in this encounter
--- OUTSIDE RECORDS SUMMARY | 2024-04-28 21:19 | XMS_ITS | Encounter Summary ---
Author Organization [facility] Address [address] [place] [address] Care Team Providers Care Public Relations Manager Name Role Phone Unknown, Provider MD Primary Care Provider Unava ilable Encounter Details Date Type Department Care Team (Late st Contact Info) Description 11/30/2023 Lab Requisition [facility] Pathology & Laboratory Medicine - [address] [place] [address] Pressure ulcer of right [...] explore management options, if applicable. 12/05/2023 11:34 [facility] Final Diagnosis A. 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 - Acute serositis and adhesions. - Cholelithiasis. - Benign reactive lymph node. 12/05/2023 11:34 [facility] Attestation There was significan t resident/fellow involvement in the diagnostic evaluation of this case. By the signature below, the attending physician certifies that they have personally conducted a gross and/or microscopic examination of the described specimens and rendered or confirmed the above diagnosis. 12/05/2023 11:34 [facility] at 1134 Clinical History Cholecystitis, S/P cholecystostomy tube insertion 11/16/2023, developed sepsis with WBC 31,000, now open robert 12/05/2023 11:34 [facility] Gross Description A. Received [...] received are several brown-black smooth multifaceted calculi. Sprinkler Truck Driver sections are submitted as follows: BLOCK MARIA A1- cystic duct margin, en face and bisected possible periductal lymph node A2-A6- energy conservation representative sections gallbladder wall A7- section separately submitted necrotic saccular tissue A8- energy conservation representative sections separately submitted tissue fragments MELO HILLIARD(ASCP) 11/30/2023 10:55 12/05/2023 11:34 EDT [facility] Resident/Fell ow: Jefry Montez, 12/05/2023 11:34 EDT [facility] Performing Lab [facility] 12/05/2023 11:34 EDT [facility] Scanned Images 12/05/2023 11:34 EDT [facility] Tissue GALLBLADDER STRUCTURE / Unknown 11/29/2023 14:25 EDT 11/30/2023 8:14 EDT Kirit Tejeda PATHOLOGY ORDERABLES [facility] [address] [place] [address] documented in this encounter Visit Diagnoses Diagnosis Pressure ulcer of right heel, unstageable ([facility]) Hypothyroidism, unspecified Acute cystitis without hematuria Acute cystitis Chronic diastolic (congestive) heart failure ([facility]) Anemia in other chronic diseases classified elsewhere Type 2 diabetes mellitus with hyperglycemia ([facility]) Type II or unspecified type diabetes mellitus without mention of complication, not stated as uncontrolled Type 2 diabetes mellitus with diabetic polyneuropathy ([facility]) Type II or unspecified type diabetes mellitus with neurological manifestations, not stated as uncontrolled Pneumonia, unspecified organism Cholecystitis, unspecified documented in this encounter Care Teams Public Relations Manager Relationship Specialty Start Date End Date Unknown, Provider, PCP - General 11/19/23 documented as of this encounter
--- OUTSIDE RECORDS SUMMARY | 2024-04-28 21:19 | XMS_ITS | Encounter Summary ---
Author Organization [facility] Address [facility] [place] [address] Care Team Providers Care Mergers [employer] Acquisitions Banker Name Role Phone Unavailable Primary Care Provider Unavailabl e Reason for Referral * Diagnostic Test (Routine) - Pending Review Specialty Diagnoses / Procedures Referred By Silvana taylor Referred To Contact Radiology Diagnoses Acute cholecystitis Procedures IR Cholecystostomy Tube Placement Merissa Oakes PA [facility] [place] [address] [facility] [place] [address] Referral ID Status Reason Start Date Expiration Date Visits Requested Visits Authorized [id number] Pending Review Specialty Service Requested 11/15/2023 05/17/2025 1 1 Reason for Visit * Diagnostic Test (Routine) - Pending Review Specialty Diagnoses / Procedures Referred By Silvana taylor Referred To Contact Radiology Diagnoses Acute cholecystitis Procedures IR Cholecystostomy Tube Placement Merissa Oakes PA [facility] [place] [address] [place] [address] Referral ID Status Reason Start Date Expiration Date Visits Requested Visits Authorized [id number] Pending Review Specialty Service Requested 11/15/2023 05/17/2025 1 1 Encounter Details Date Type Department Care Team (Latest Contact Info) Description 11/16/2023 12:36 PM EDT - 11/16/2023 11:59 PM EDT Hospital [place] [address] Efraín Teran, [facility] [place] [address] Acute cholecystitis Discharge Disposition: Home Social History [...] other surface. Always put a registered nurse midwife on the end to keep clean. 11. If you drainage bags starts to have an odor, you can clean the bag after removing it from the tube. Turn the stopcock to off. Put on a registered nurse midwife to the end of the stopcock to [...] is during regular office hours, please call [phone]. If it is after regular office hours, or on weekends or holidays, please call [phone] and ask to speak to the Speech Therapist manager front for Interventional Radiology. XX You have received [...] Questions Answers Where will study be performed? [facility] Radiology [120] To be scheduled Next available after expected date Reason for exam and clinical history: Suspected acute cholecystitis, down/back procedure from [facility] Is the patient on anticoagulant / antiplatelet [...] Service contacted by Dr. Alexandro Smith at [facility] at 09:10 11/14 regarding the procedure request below. There are no answered order specific questions. History of Present Illness: Per chart review, Nilam Dyer is a 73 y.o. female currently admittedto [facility] for gallstone pancreatitis with rising leukocytosis, positive [...] 9:30 AM EST Office Visit Dermatology at [facility] [address] [place] [id number] Rama Justice MD [facility] [address] [place] [address] documented as of this encounter Procedures Procedure [...] Glucose, POC 94 65 - 199 mg/dL [facility] Comment: Supplemental ranges: <140 mg/dL before meals <180 mg/dL all other times of the day Blood 11/16/2023 3:18 PM EDT 11/16/2023 3:18 PM EDT Efraín Teran DO POINT OF CARE TEST O RDERARANDELL [facility] [place] [address] * IR Cholecystostomy Tube Placement (11/16/2023 2:57 [...] the tract was dilated and a 10 Bel[place]an Fr locking pigtail drain was advanced into [...] discharge to return via hospital transfer to [facility], when meets criteria Resident/Fellow: Alvin Harris MD Attending: Dr. Mendiola I, Dr. Mendiola, was present throughout the procedure. I was present during the intraservice time as documented by the IR Nurse. ?? Efraín Teran DO IMG IR ORDERABLES * Anaerobic Culture (11/16/2023 2:35 PM EDT) Anaerobic Culture No anaerobic organisms isolated [facility] Bile 11/16/2023 2:35 PM EDT 11/16/2023 3:54 PM EDT Comment:Cholecystomy Narrative Resulting Agency Comment Spec In Lab Jose Mendiola MD MICROBIOLOGY - GENER AL ORDERABLES Performing Organization Address City/State/[facility] Co de Phone Number [facility] [place] [phone] * (ABNORMAL) Body Fluid Culture, Aerobic (11/16/2023 2:35 PM EDT) Body Fluid Culture Many Escherichia coli(A) [facility] Gram Stain Few Neutrophils seen Moderate Gram Negative Rods (A) [facility] Organism Escherichia coli(A) [facility] Bile 11/16/2023 2:35 PM [...] - GENER AL ORDERABLES Performing Organization Address [facility] Co de Phone Number [facility] [place] [address] * POCT Glucose (11/16/2023 1:35 PM EDT) Glucose, POC 84 65 - 199 mg/dL [facility] Comment: Supplemental ranges: <140 mg/dL before meals <180 mg/dL all other times of the day Blood 11/16/2023 1:35 PM EDT 11/16/2023 1:35 PM EDT Efraín Teran DO POINT OF CARE TEST O RDERABLES Performing Organization Address [facility] Co de Phone Number [facility] [place] [address] documented in this encounter Visit Diagnoses Diagnosis [...]
--- OUTSIDE RECORDS SUMMARY | 2024-04-28 21:19 | XMS_ITS | Encounter Summary ---
Author Organization [facility] Address [address] [place] [id number] Care Team Providers Care Hoist Worker Name Role Phone Unknown, Provider Primary Care Provider Unava ilable Encounter Details Date Type Department Care Team (Late st Contact Info) Description 10/17/2023 Lab Requisition [facility] Pathology & Laboratory Medicine - [address] [address] Outr Resulting Lab, Provider Social History Tobacco [...] 275 - 295 mOsm/kg 10/17/2023 16:57 EDT [facility] Blood VENOUS BLOOD / Unknown 10/16/2023 13:39 EDT 10/17/2023 16:27 EDT Provider Outr Resulting Lab CHEMISTRY & BLOOD GAS ORDERABLES [facility] [address] [place], [place] [phone] documented in this encounter Visit Diagnoses Not on filedocumented in this encounter Care Teams Hoist Worker Relationship Specialty Start Date End Date Unknown, Provider, PCP - General 11/19/23 documented as of this encounter
--- NOTE | 2024-04-28 21:29 | ED.GENADUL_ITS ---
Discharge Plan Disposition Patient Disposition: Home Condition: Stable Discharge Details Clinical Impression: Exertional shortness of breath Primary Care Provider: Angelika Berumen ED Provider: Carolina Olson Home Meds and New Rx's Prescriptions: No Action ketoconazole 2 % cream 1 applic topical DAILY Qty: 120 6RF Rx Instructions: Apply to toenails once daily urea 40 % cream 1 applic topical .QD Qty: 28 3RF Trulicity 0.75 mg/0.5 mL pen injector 0.75 mg subcut QWEEK melatonin 3 mg tablet 3 mg PO HS PRN Cosentyx UnoReady Pen 300 mg/2 mL (150 mg/mL) pen injector 300 mg subcut QWEEK magnesium gluconate [Mag-G] 27 mg magnesium (500 mg) tablet 27 mg PO BID benzonatate 100 mg capsule 100 mg PO TID dextromethorphan-guaifenesin [Guaiasorb DM] 10-100 mg/5 mL liquid 10 ml PO Q4H PRN ipratropium bromide 21 mcg (0.03 %) spray,non-aerosol 2 spray intranasal BID-TID PRN (Reason: allergy symptoms) Qty: 30 2RF Rx Instructions: administer into each nostril cholecalciferol (vitamin D3) 1,250 mcg (50,000 unit) capsule 1,250 mcg PO QWEEK atorvastatin 40 mg tablet 40 mg PO HS trazodone 50 mg tablet 50 mg PO QHS acetaminophen 500 mg Tablet 1,000 mg PO TID MDD 3000 mg Qty: 60 0RF docusate sodium [Colace] 100 mg Capsule 100 mg PO DAILY Qty: 30 0RF ferrous sulfate 325 mg (65 mg iron) Tablet 325 mg PO DAILY Qty: 30 0RF pantoprazole 40 mg Tablet,Delayed Release (Dr/Ec) 40 mg PO DAILY@0730 Qty: 10 0RF metformin 500 mg tablet 500 mg PO BIDWMEAL Qty: 60 0RF (DME) lancets [FreeStyle Lancets] 28 gauge misc See Rx Instructions .Route Qty: 100 0RF Rx Instructions: As directed (DME) blood-glucose meter [FreeStyle Lite Meter] Kit See Rx Instructions .Route Qty: 1 0RF Rx Instructions: As directed (DME) FreeStyle Lite Strips Strip See Rx Instructions .Route Qty: 100 0RF Rx Instructions: As directed spironolactone 50 mg tablet 50 mg PO DAILY levothyroxine 150 mcg tablet 150 mcg PO HS insulin glargine [Lantus Solostar U-100 Insulin] 100 unit/mL (3 mL) Insulin Pen 15 unit subcut QAM Qty: 15 0RF furosemide 40 mg Tablet 40 mg PO BID@0830,1600 Qty: 60 0RF insulin aspart U-100 100 unit/mL (3 mL) insulin pen 1 sliding scale dose SUBCUT TID Rx Instructions: see sliding scale polyethylene glycol 3350 [ClearLax] 17 gram/dose powder 17 g PO DAILY nystatin [Nyamyc] 100,000 unit/gram powder 1 applic TOPICAL DAILY mupirocin 2 % ointment 1 applic TOPICAL BID insulin glargine [Lantus Solostar U-100 Insulin] 100 unit/mL (3 mL) Insulin Pen 30 unit subcut HS calcium carbonate [Calcium 500] 500 mg calcium (1,250 mg) tablet,chewable 1,000 mg PO ONCE PRN Rx Instructions: 2 tabs Q3H HPI General Date/Time Provider Initiated Documentation: 04/28/24 21:20 . HPI Narrative: Nilam is a 73year old female who presents to the emergency department today for evaluation of shortness of breath. She reports symptoms started a couple of days ago with congestion, sore throat, worsening congested cough that is productive of sputum, body aches, and generalized headache. She does have chest discomfort when she coughs. Shortness of breath became worse in the last couple of hours. She denies recorded fevers/chills, vomiting, abdominal pain, change in bowel or bladder function, change in baseline pedal edema. Past medical history is significant for T2DM, CVA, CHF, obesity, and hypertension. She denies history of FL. Physical exam remarkable for frequent productive cough. Inspiratory and expiratory wheezes noted in all shepherd. Normal heart sounds. Abdomen is soft, nondistended, nontender to palpation. No obvious JVD. Pedal edema noted bilaterally. Slightly tacky mucous membranes, white film on tongue. D/dx includes but is not limited to: Viral illness such as COVID-19 or flu, CHF exacerbation, pneumonia, COPD/asthma, GERD, post-nasal drip, dehydration, electrolyte imbalance I independently interpreted the following tests: EKG reassuring, sinus rhythm ra te 90, left bundle branch block. No change from previous on 03/16/2024. No acute changes consistent with ischemia. CBC remarkable for mild leukocytosis, white cell count 12.6; this is increased from 10.87 on 04/19/2024. BMP remarkable for elevated creatinine and BUN from previous, 1.4 and 32 today, versus 1.1 and 23 on 04/19/2024. Mild hypomagnesemia, magnesium 1.6 today. BNP negative. Initial troponin 6. While in the emergency department, Nilam received a duoneb with good improvement in aeration, though inspiratory and expiratory wheezes do persist. A second DuoNeb was given; O2 sat in low 90s (90-91% on RA at this time, O2 via NC given to maintain sats in mid 90s. I did review previous records, including pulmonology visit from February. Nilam does have a known chronic cough, unknown etiology. A CT was performed that showed resolution of previously noted infiltrates, no acute abnormalities. COVID/flu/RSV still pending. Discussed case with Dr. Reed, [facility] hospitalist. Reviewed patient presentation and workup. Plan to admit for viral illness with hypoxia. Related Data Home Medications ?Medication ?Instructions ?Recorded ?Confirmed atorvastatin 40 mg tablet 40 mg PO HS 09/04/23 04/28/24 trazodone 50 mg tablet 50 mg PO QHS 09/04/23 04/28/24 acetaminophen 500 mg tablet 1,000 mg (2 x 500 mg) PO TID #60 09/06/23 04/28/24 tabs blood sugar diagnostic (FreeStyle #100 ea 09/06/23 04/28/24 Lite Strips) blood-glucose meter (FreeStyle #1 ea 09/06/23 04/28/24 Lite Meter kit) docusate sodium 100 mg capsule 100 mg PO DAILY #30 caps 09/06/23 04/28/24 (Colace) ferrous sulfate 325 mg (65 mg 325 mg PO DAILY #30 tabs 09/06/23 04/28/24 iron) tablet lancets 28 gauge (FreeStyle #100 ea 09/06/23 04/28/24 Lancets) metformin 500 mg tablet 500 mg PO BIDWMEAL #60 tabs 09/06/23 04/28/24 pantoprazole 40 mg tablet,delayed 40 mg PO DAILY@0730 #10 tabs 09/06/23 04/28/24 release levothyroxine 150 mcg tablet 150 mcg PO HS 10/19/23 04/28/24 furosemide 40 mg tablet 40 mg PO BID@0830,1600 #60 tabs 10/28/23 04/28/24 insulin glargine 100 unit/mL (3 15 unit (0.15 mL) subcut QAM #15 mL 10/28/23 04/28/24 mL) subcutaneous pen (Lantus Solostar U-100 Insulin) cholecalciferol (vitamin D3) 1,250 1,250 mcg PO QWEEK 11/28/23 04/28/24 mcg (50,000 unit) capsule insulin aspart U-100 100 unit/mL 1 sliding scale dose subcut TID 11/29/23 04/28/24 (3 mL) subcutaneous pen polyethylene glycol 3350 17 17 g PO DAILY 11/29/23 04/28/24 gram/dose oral powder (ClearLax) nystatin 100,000 unit/gram topical 1 applic topical DAILY 12/23/23 04/28/24 powder (Nyamyc) ketoconazole 2 % topical cream 1 applic topical DAILY #120 grams 01/12/2404/28 urea 40 % topical cream 1 applic topical .QD #28 grams 01/12/24 04/28/24 benzonatate 100 mg capsule 100 mg PO TID 03/01/24 04/28/24 dextromethorphan-guaifenesin 10 10 ml PO Q4H PRN 03/01/24 04/28/24 mg-100 mg/5 mL oral liquid (Guaiasorb DM) ipratropium bromide 21 mcg (0.03 2 spray intranasal BID-TID PRN 03/01/24 04/28/24 %) nasal spray allergy symptoms #30 mL magnesium gluconate 27 mg 27 mg PO BID 03/01/24 04/28/24 magnesium (500 mg) tablet (Mag-G) dulaglutide 0.75 mg/0.5 mL 0.75 mg subcut QWEEK 03/15/24 04/28/24 subcutaneous pen injector (Trulicity) melatonin 3 mg tablet 3 mg PO HS PRN 03/15/24 04/28/24 secukinumab 300 mg/2 mL (150 300 mg subcut QWEEK 03/15/24 04/28/24 mg/mL) subcutaneous pen injector (Cosentyx UnoReady Pen) calcium carbonate (Calcium 500) 1,000 mg PO ONCE PRN 03/16/24 04/28/24 insulin glargine 100 unit/mL (3 30 unit subcut HS 03/16/24 04/28/24 mL) subcutaneous pen (Lantus Solostar U-100 Insulin) mupirocin 2 % topical ointment 1 applic topical BID 03/16/24 04/28/24 spironolactone 50 mg tablet 50 mg PO DAILY 04/28/24 04/28/24 Previous Rx's ?Medication ?Instructions ?Recorded acetaminophen 500 mg tablet 1,000 mg (2 x 500 mg) PO TID #60 09/06/23 tabs blood sugar diagnostic (FreeStyle #100 ea 09/06/23 Lite Strips) blood-glucose meter (FreeStyle #1 ea 09/06/23 Lite Meter kit) docusate sodium 100 mg capsule 100 mg PO DAILY #30 caps 09/06/23 (Colace) ferrous sulfate 325 mg (65 mg 325 mg PO DAILY #30 tabs 09/06/23 iron) tablet lancets 28 gauge (FreeStyle #100 ea 09/06/23 Lancets) metformin 500 mg tablet 500 mg PO BIDWMEAL #60 tabs 09/06/23 pantoprazole 40 mg tablet,delayed 40 mg PO DAILY@0730 #10 tabs 09/06/23 release furosemide 40 mg tablet 40 mg PO BID@0830,1600 #60 tabs 10/28/23 insulin glargine 100 unit/mL (3 15 unit (0.15 mL) subcut QAM #15 mL 10/28/23 mL) subcutaneous pen (Lantus Solostar U-100 Insulin) ketoconazole 2 % topical cream 1 applic topical DAILY #120 grams 01/12/24 urea 40 % topical cream 1 applic topical .QD #28 grams 01/12/24 ipratropium bromide 21 mcg (0.03 2 spray intranasal BID-TID PRN 03/01/24 %) nasal spray allergy symptoms #30 mL Allergies Allergy/AdvReac Type Severity Reaction Status Date / Time No Known Allergies Allergy Verified 04/28/24 21:23 General Stated Complaint: RespSymp TRINIDAD: 3 Review of Systems Narrative: see HPI Exam Const General: cooperative, comfortable and well developed Nutritional Appearance: obese Orientation: alert HENMT Head: normal to inspection Ears: hearing grossly normal bilaterally Face and sinus: dry mucous membranes Mouth: lip normal and no muffled voice Neck Neck: normal visual inspection Resp Effort & Inspection: normal respiratory effort and cough Auscultation: wheezes expiratory wheezes Cardio Jugular venous pressure: no JVD Rate: regular rate Rhythm: regular rhythm Pulses: radial pulses present GI Inspection: normal to inspection, non-distended and obesity Palpation: soft, not firm and nontender Extrem Other: Pedal edema to bilateral ankles Course Vital Signs Vital signs: Vital Signs Temperature 36.3 C L 04/28/24 21:09 Pulse 97 H 04/28/24 21:09 Respiratory Rate 34 H 04/28/24 21:09 Blood Pressure 116/62 04/28/24 21:09 Pulse Oximetry 95 04/28/24 21:09 Temperature 36.4 C 04/28/24 21:14 Temperature Source Temporal Artery Scan 04/28/24 21:14 Pulse 92 H 04/28/24 21:14 Respiratory Rate 28 H 04/28/24 21:14 Respiratory Effort Short of Breath, Incrsd Work of Breathing 04/28/24 21:14 Respiratory Depth Normal 04/28/24 21:14 Blood Pressure 150/79 H 04/28/24 21:14 Blood Pressure Position Sitting 04/28/24 21:14 Pulse Oximetry 95 04/28/24 21:14 Oxygen Delivery Method Room Air 04/28/24 21:14 Oxygen Flow Rate 0 04/28/24 21:09 Medical Decision Making Quality:SDOH Health Related Social Needs: 2 No Data to Display PFSH All Active Problems (Updated 04/28/24 @ 21:21 by Carolina Felix) Exertional shortness of breath (Acute) Chronic cough (Acute) Personal history of Methicillin resistant Staphylococcus aureus infection (Acute) Dysphagia (Acute) Extended spectrum beta lactamase (ESBL) resistance (Acute) Hypo-osmolar hyponatremia (Acute) Type 2 diabetes mellitus with foot ulcer (Acute) Radiculopathy, lumbar region (Acute) Pleural effusion, not elsewhere classified (Acute) Acute on chronic combined systolic (congestive) and diastolic (congestive) heart failure (Acute) Hemiplegia of left 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 (Acute) Nail dystrophy (Acute) Onychomycosis (Acute) Edema (Acute) Type 2 diabetes mellitus with peripheral neuropathy (Acute) Paresthesias (Acute) Anemia in chronic illness (Acute) Transaminitis (Acute) Obesity (Chronic) Unstageable pressure ulcer of right heel (Acute) Poorly controlled type 2 diabetes mellitus with peripheral neuropathy (Acute) Low serum iron (Acute) Lumbar back pain with radiculopathy affecting right lower extremity (Acute) Ambulatory dysfunction (Acute) Weakness (Acute) Medical History Cholecystitis Constipation Hypothyroid Gram-negative bacteremia Pleural effusion, left Hyperglycemia due to type 2 diabetes mellitus Palliative care patient Physician orders for life-sustaining treatment (POLST) form indicates patient wish for [id number] status ACP (advance care planning) Urinary tract infection Stroke Diabetes CHF (congestive heart failure) 2020, pt. denies any deficits now Surgical History S/P cholecystectomy History of ERCP S/P tonsillectomy Family History (Updated 03/01/24 @ 10:33 by Una Alexander) Mother Cancer Social History Smoking/Tobacco Use Status: Never Smoking risk assessment performed?: Yes Alcohol Intake: never Drug use: Never Substance use type: does not use Housing: long term What is your relationship status?: Panel score (0-1 are the most socially isolated patients): 0 Do you feel safe at home: Yes Do you feel safe in your relationship?: Yes Additional Social history: PT RESIDES AT [facility]
[2024-04-28 21:37] LABS: Abs Immature Grans 0.07 10^3/uL (0.0-0.06); Absolute Basophil Count 0.03 10^3/uL (0.0-0.2); Absolute Eosinophil Count 0.45 10^3/uL (0.0-0.7); Absolute Lymphocyte Count 2.59 10^3/uL (1.2-3.4); Absolute Monocyte Count 0.87 10^3/uL (0.1-0.8); Basophils % 0.2 %; Eosinophils % 3.6 %; HCT 40.4 % (36.0-46.0); Immature Grans % 0.6 %; Lymphocytes % 20.5 %; MCH 26.3 pg (27.0-33.0); MCHC 32.2 % (32.0-36.0); MCV 82 fL (80-95); MPV 9.5 fL (8.0-11.0); Monocytes % 6.9 %; Neutrophils % 68.2 %; Platelet Count 289 10^3/uL (130-400); RBC 4.95 10^6/uL (3.93-5.22); RDW 14.2 % (11.7-14.6); RDW-SD 41.9 fL; WBC 12.61 10^3/uL (4.4-10.8)
[2024-04-28] MEDS: Albuterol/Ipratropium 3 ML UPD VIAL UPD (21:49)
[2024-04-28 22:38] LABS: Anion Gap 9.4 mmol/L (3-11); BUN 32 mg/dL (7-18); CO2 31.6 mmol/L (21.0-32.0); CREATININE 1.4 mg/dL (0.55-1.02); Calcium 9.4 mg/dL (8.5-10.1); Chloride 96 mmol/L (98-107); Estimated GFR 39.48 (mL/min/1.73m2); Glucose 242 mg/dL (74-106); Magnesium 1.6 mg/dL (1.8-2.4); NT-proBNP 155 pg/mL (<300); Potassium 4.3 mmol/L (3.5-5.1); Sodium 137 mmol/L (136-145); Troponin I 6 ng/L (<or=51)
[2024-04-28] MEDS: Acetaminophen 500 MG TAB 1000 MG PO (22:45)
[2024-04-28] MEDS: Albuterol/Ipratropium 3 ML UPD VIAL (22:45)
[2024-04-28] MEDS: Magnesium Oxide 400 MG TAB PO (23:09)
--- NOTE | 2024-04-28 23:21 | DI.VRAD_ITS ---
PROCEDURE INFORMATION: Exam: XR Chest Exam date and time: 04/28/2024 9:58 PM Age: 73 years old Clinical indication: Cough and shortness of breath TECHNIQUE: Imaging protocol: Radiologic exam of the chest. Views: 2 views. COMPARISON: CT CHEST WO 03/22/2024 10:10 AM FINDINGS: Lungs: Unremarkable. No consolidation. Pleural spaces: Unremarkable. No pleural effusion. No pneumothorax. Heart/Mediastinum: Enlarged cardiac silhouette. Mediastinal contour otherwise unremarkable. Bones/joints: Unremarkable. IMPRESSION: No acute findings. Dictated and Authenticated by: Олег Mondragon MD. Ordering:MILA Figueroa MD
--- NOTE | 2024-04-28 23:35 | NUR.NOTE ---
2324: Trialed pt on RA s/p updraft treatment #2, pt SpO2@90% w/ increased incidence of coughing and pt c/o feeling 'winded'. 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 On 2lpm via NC pt SpO2 >94% sustained pt reports mild improvement in symptoms. Will continue to monitor all systems and report pertinent info to other members of pt care team as appropriate. See data flowsheet and eMAR for further details
[2024-04-28 23:36] LABS: Troponin I 5 ng/L (<or=51)
--- NOTE | 2024-04-28 23:37 | HPE_ITS ---
Date of service: 04/28/24 Time of Service: 23:38 Assessment and Plan Assessment and plan (1) Acute respiratory failure with hypoxia: Status: Acute Assessment and plan: -initially presented with shortness of breath but stated preceding cough, nasal congestion, sputum production, body aches and headaches over the last few days -in ED desatted down 90% on RA, no won 2L NC to maintain O2 sat >92% -presumed secondary to acute viral upper respiratory illness as noted below -wean O2 as tolerated (2) Viral upper respiratory illness: Status: Acute Assessment and plan: -presumed at this time, as viral panel pending -procal also pending -WBC elevated, but patient aferile in ED and cxr without acute findings -D-dimer less than 500, no concern for PE at this time -viral respitaory panel negative -procal negative (3) Chronic cough: Status: Acute Assessment and plan: -has been seen by Pulm; no dx of COPD or other chronic respiratory disease (4) Type 2 diabetes mellitus with peripheral neuropathy: Status: Acute Assessment and plan: -continue home lantus -hold home metformin and weekly dulaglutide -SSI, heart healthy carb diet (5) CHF (congestive heart failure): Assessment and plan: -without acute exacerbation -continue home lasix, statin and spironolactone Qualifiers: Heart failure chronicity: chronic Heart failure type: diastolic Q ualified Code(s): I50.32 - Chronic diastolic (congestive) heart failure History of Present Illness History of Present Illness Chief Complaint: shortness of breath Narrative: 73-year-old female with a past medical history of IDDM, CVA, congestive heart failure, obesity and hypertension who presented to the emergency department complaints of shortness of breath. Patient states that a few days ago she began to experience some congestion with sore throat and productive sputum with associated body aches and generalized headache. She states she did not take her temperature during this time. She states that given the persistence of her symptoms she decided. To present to the emergency department. She denies any fevers, lightheadedness, dizziness, chest pain, nausea vomiting or diarrhea. In the emergency department the patient was noted as having normal vital signs with the exception of period of hypoxia in which she was noted to desat to 90% on room air requiring 2 L nasal cannula to maintain oxygen saturation greater than 92%. She did not appear edematous nor did her lung exam of significant findings for possible pulmonary edema which was confirmed on both chest x-ray which had no acute findings and relatively low BMP. CBC was mildly elevated, and UA was negative as well as viral respiratory panel and procalcitonin. At which time emergency room PA paged hospitalist admission for patient with a presumed acute viral upper respiratory illness resulting in acute hypoxic respiratory failure. Review of Systems All systems reviewed & are unremarkable except as noted in HPI and below PFSH All Active Problems (Updated 04/28/24 @ 23:40 by James Reed MD) Viral upper respiratory illness (Acute) Acute respiratory failure with hypoxia (Acute) Exertional shortness of breath (Acute) Chronic cough (Acute) Personal history of Methicillin resistant Staphylococcus aureus infection (Acute) Dysphagia (Acute) Extended spectrum beta lactamase (ESBL) resistance (Acute) Hypo-osmolar hyponatremia (Acute) Type 2 diabetes mellitus with foot ulcer (Acute) Radiculopathy, lumbar region (Acute) Pleural effusion, not elsewhere classified (Acute) Acute on chronic combined systolic (congestive) and diastolic (congestive) heart failure (Acute) Hemiplegia of left 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 (Acute) Nail dystrophy (Acute) Onychomycosis (Acute) Edema (Acute) Type 2 diabetes mellitus with peripheral neuropathy (Acute) Paresthesias (Acute) Anemia in chronic illness (Acute) Transaminitis (Acute) Obesity (Chronic) Unstageable pressure ulcer of right heel (Acute) Poorly controlled type 2 diabetes mellitus with peripheral neuropathy (Acute) Low serum iron (Acute) Lumbar back pain with radiculopathy affecting right lower extremity (Acute) Ambulatory dysfunction (Acute) Weakness (Acute) Medical History Cholecystitis Constipation Hypothyroid Gram-negative bacteremia Pleural effusion, left Hyperglycemia due to type 2 diabetes mellitus Palliative care patient Physician orders for life-sustaining treatment (POLST) form indicates patient wish for hj-mmi-hsnxcmlywne status ACP (advance care planning) Urinary tract infection Stroke Diabetes CHF (congestive heart failure) 2020, pt. denies any deficits now Surgical History S/P cholecystectomy History of ERCP S/P tonsillectomy Family History (Updated 03/01/24 @ 10:33 by Una Alexander) Mother Cancer Social History Smoking/Tobacco Use Status: Never Smoking risk assessment performed?: Yes Alcohol Intake: never Drug use: Never Substance use type: does not use Housing: longterm What is your relationship status?: Panel score (0-1 are the most socially isolated patients): 0 Do you feel safe at home: Yes Do you feel safe in your relationship?: Yes Additional Social history: PT RESIDES AT THE [facility] ([place], [place]) Allergies and Home Medications Allergies Allergy/AdvReac Type Severity Reaction Status Date / Time No Known Allergies Allergy Verified 04/28/24 21:23 Home Medications ?Medication ?Instructions ?Recorded ?Confirmed ?Type atorvastatin 40 mg tablet 40 mg PO HS 09/04/23 04/28/24 History trazodone 50 mg tablet 50 mg PO QHS 09/04/23 04/28/24 History acetaminophen 500 mg tablet 1,000 mg (2 x 500 mg) PO TID #60 09/06/23 04/28/24 Rx tabs blood sugar diagnostic (FreeStyle #100 ea 09/06/23 04/28/24 Rx Lite Strips) blood-glucose meter (FreeStyle #1 ea 09/06/23 04/28/24 Rx Lite Meter kit) docusate sodium 100 mg capsule 100 mg PO DAILY #30 caps 09/06/23 04/28/24 Rx (Colace) ferrous sulfate 325 mg (65 mg 325 mg PO DAILY #30 tabs 09/06/23 04/28/24 Rx iron) tablet lancets 28 gauge (FreeStyle #100 ea 09/06/23 04/28/24 Rx Lancets) metformin 500 mg tablet 500 mg PO BIDWMEAL #60 tabs 09/06/23 04/28/24 Rx pantoprazole 40 mg tablet,delayed 40 mg PO DAILY@0730 #10 tabs 09/06/23 04/28/24 Rx release levothyroxine 150 mcg tablet 150 mcg PO HS 10/19/23 04/28/24 History furosemide 40 mg tablet 40 mg PO BID@0830,1600 #60 tabs 10/28/23 04/28/24 Rx insulin glargine 100 unit/mL (3 15 unit (0.15 mL) subcut QAM #15 mL 10/28/23 04/28/24 Rx mL) subcutaneous pen (Lantus Solostar U-100 Insulin) cholecalciferol (vitamin D3) 1,250 1,250 mcg PO QWEEK 11/28/23 04/28/24 History mcg (50,000 unit) capsule insulin aspart U-100 100 unit/mL 1 sliding scale dose subcut TID 11/29/23 04/28/24 History (3 mL) subcutaneous pen polyethylene glycol 3350 17 17 g PO DAILY 11/29/23 04/28/24 History gram/dose oral powder (ClearLax) nystatin 100,000 unit/gram topical 1 applic topical DAILY 12/23/23 04/28/24 History powder (Nyamyc) ketoconazole 2 % topical cream 1 applic topical DAILY #120 grams 01/12/24 04/28/24 Rx urea 40 % topical cream 1 applic topical .QD #28 grams 01/12/24 04/28/24 Rx benzonatate 100 mg capsule 100 mg PO TID 03/01/24 04/28/24 History dextromethorphan-guaifenesin 10 10 ml PO Q4H PRN 03/01/24 04/28/24 History mg-100 mg/5 mL oral liquid (Guaiasorb DM) ipratropium bromide 21 mcg (0.03 2 spray intranasal BID-TID PRN 03/01/24 04/28/24 Rx %) nasal spray allergy symptoms #30 mL magnesium gluconate 27 mg 27 mg PO BID 03/01/24 04/28/24 History magnesium (500 mg) tablet (Mag-G) dulaglutide 0.75 mg/0.5 mL 0.75 mg subcut QWEEK 03/15/24 04/28/24 History subcutaneous pen injector (Trulicity) melatonin 3 mg tablet 3 mg PO HS PRN 03/15/24 04/28/24 History secukinumab 300 mg/2 mL (150 300 mg subcut QWEEK 03/15/24 04/28/24 History mg/mL) subcutaneous pen injector (Cosentyx UnoReady Pen) calcium carbonate (Calcium 500) 1,000 mg PO ONCE PRN 03/16/24 04/28/24 History insulin glargine 100 unit/mL (3 30 unit subcut HS 03/16/24 04/28/24 History mL) subcutaneous pen (Lantus Solostar U-100 Insulin) mupirocin 2 % topical ointment 1 applic topical BID 03/16/24 04/28/24 History spironolactone 50 mg tablet 50 mg PO DAILY 04/28/24 04/28/24 History Exam Narrative Exam Narrative: Fatigued but well-appearing older female laying in bed in no acute distress, ANO x 4, heart regular rhythm, lungs clear to auscultation bilaterally, abdomen soft, nontender, nondistended Results Labs 04/29/24 05:15 04/29/24 05:15 Labs: Laboratory Results - last 24 hr 04/28/24 04/28/24 21:20 22:13 WBC 12.61 H RBC 4.95 Hgb 13.0 Hct 40.4 MCV 82 MCH 26.3 L MCHC 32.2 RDW 14.2 Plt Count 289 MPV 9.5 Immature Gran % 0.6 Neutrophils % 68.2 Lymphocytes % 20.5 Monocytes % 6.9 Eosinophils % 3.6 Basophils % 0.2 Nucleated RBC % 0.0 Absolute Neutrophils 8.60 H Absolute Lymphocytes 2.59 Absolute Monocytes 0.87 H Absolute Eosinophils 0.45 Absolute Basophils 0.03 Sodium Cancelled 137 Potassium Cancelled 4.3 Chloride Cancelled 96 L Carbon Dioxide Cancelled 31.6 Anion Gap Cancelled 9.4 BUN Cancelled 32 H Creatinine Cancelled 1.4 H Est GFR (CKD-EPI 2020) Cancelled 39.48 Glucose Cancelled 242 H Calcium Cancelled 9.4 Magnesium Cancelled 1.6 L Troponin I Cancelled 6 NT-Pro-B Natriuret Pep Cancelled 155 Last Vital Signs Temp 97.6 F 04/28/24 21:14 Pulse 96 H 04/28/24 23:16 Resp 23 04/28/24 23:21 BP 155/81 H 04/28/24 23:16 Pulse Ox 94 04/28/24 23:21 Time Spent Time spent with Patient: >75 minutes Time was spent: preparing to see the patient(eg.review tests), obtaining and/or reviewing separately otained hiistory, ordering medications,tests, procedures, referring, communicating with other health long term care pharmacist, indepentently interpreting results, counseling the patient and care coordination
[2024-04-28 23:53] LABS: COVID-19 PCR Negative (Negative); Influenza A PCR Negative (Negative); Influenza B PCR Negative (Negative); RSV PCR Negative (Negative)
[2024-04-28 23:55] LABS: Source Nasopharynx
[2024-04-29] VITALS (11 sets, daily range): BP systolic 108–162; BP diastolic 60–81; PULSE 82–105; RESP 18–26; TEMP 36.1–37.4; O2SAT 91–98
--- NOTE | 2024-04-29 00:17 | W.PC.ACHO ---
Registration Status: Primary Language: Preferred Language: ED Information & Data Chief Complaint RespSymp 04/28/24 21:33 [facility]riage Note [facility] 04/28/24 21:09 She reports 2-3 days of feeling poorly, but this became worse ~3hrs [employer] w/ harsh productive coughing, GUARDADO, generalized achiness, nausea, chest pain intermittently w/ coughing, congestion and sore throat Medical / Surgical History (Last Reviewed 01/12/24 @ 09:40 by Christine Castellano DPM) Constipation Cholecystitis Hypothyroid Gram-negative bacteremia Pleural effusion, left Hyperglycemia due to type 2 diabetes mellitus Urinary tract infection Palliative care patient Physician orders for life-sustaining treatment (POLST) form indicates patient wish for la-ivb-xejuenqosbr status ACP (advance care planning) Stroke Diabetes CHF (congestive heart failure) (Last Reviewed 01/12/24 @ 09:40 by Christine Castellano DPM) S/P cholecystectomy History of ERCP S/P tonsillectomy Most Recent Vital Signs Temperature 36.4 C 04/28/24 21:14 Temperature Source Temporal Artery Scan 04/28/24 21:14 Pulse 96 H 04/28/24 23:16 Respiratory Rate 23 04/28/24 23:21 Respiratory Effort Normal, Short of Breath 04/28/24 23:03 Respiratory Depth Normal 04/28/24 23:03 Respiratory Pattern Normal 04/28/24 23:03 Blood Pressure 155/81 H 04/28/24 23:16 Blood Pressure Position Sitting 04/28/24 21:14 Pulse Oximetry 94 04/28/24 23:21 Oxygen Delivery Method Nasal Cannula 04/28/24 23:21 Oxygen Flow Rate 2 04/28/24 23:21 Comment Pt placed on 2lpm via NC d/t SpO2 90% on RA s/p albuterol neb #2 04/28/24 23:21 Allergies No Known Allergies Allergy (Verified 04/28/24 21:23) Precautions Isolation Standard precaution 04/28/24 21:14 IV IV Catheter Type [Right Saline Lock Antecubital] IV Catheter Gauge [Right 20 Antecubital] Diagnostics 04/29/24 04/28/24 04/28/24 Range/Units 00:29 23:13 22:13 WBC (4.4-10.8) 10^3/uL RBC (3.93-5.22) 10^6/uL Hgb (11.2-15.7) g/dL Hct (36.0-46.0) % MCV (80-95) fL MCH (27.0-33.0) pg MCHC (32.0-36.0) % RDW (11.7-14.6) % Plt Count (130-400) 10^3/uL MPV (8.0-11.0) fL Immature Gran % % Neutrophils % % Lymphocytes % % Monocytes % % Eosinophils % % Basophils % % Nucleated RBC % (0.0-0.3) % Absolute Neutrophils (1.2-6.7) 10^3/uL Absolute Lymphocytes (1.2-3.4) 10^3/uL Absolute Monocytes (0.1-0.8) 10^3/uL Absolute Eosinophils (0.0-0.7) 10^3/uL Absolute Basophils (0.0-0.2) 10^3/uL Sodium 137 Potassium 4.3 Chloride 96 L Carbon Dioxide 31.6 Anion Gap 9.4 BUN 32 H Creatinine 1.4 H Est GFR (CKD-EPI 2020) 39.48 Glucose 242 H Calcium 9.4 Magnesium 1.6 L Troponin I Pending 5 6 NT-Pro-B Natriuret Pep 155 Procalcitonin Pending COVID-19 Source SARS-CoV-2 (PCR) (Negative) Influenza Type A (PCR) (Negative) Influenza Type B (PCR) (Negative) RSV (PCR) (Negative) 04/28/24 Range/Units 21:20 WBC 12.61 H (4.4-10.8) 10^3/uL RBC 4.95 (3.93-5.22) 10^6/uL Hgb 13.0 (11.2-15.7) g/dL Hct 40.4 (36.0-46.0) % MCV 82 (80-95) fL MCH 26.3 L (27.0-33.0) pg MCHC 32.2 (32.0-36.0) % RDW 14.2 (11.7-14.6) % Plt Count 289 (130-400) 10^3/uL MPV 9.5 (8.0-11.0) fL Immature Gran % 0.6 % Neutrophils % 68.2 % Lymphocytes % 20.5 % Monocytes % 6.9 % Eosinophils % 3.6 % Basophils % 0.2 % Nucleated RBC % 0.0 (0.0-0.3) % Absolute Neutrophils 8.60 H (1.2-6.7) 10^3/uL Absolute Lymphocytes 2.59 (1.2-3.4) 10^3/uL Absolute Monocytes 0.87 H (0.1-0.8) 10^3/uL Absolute Eosinophils 0.45 (0.0-0.7) 10^3/uL Absolute Basophils 0.03 (0.0-0.2) 10^3/uL Sodium Cancelled Potassium Cancelled Chloride Cancelled Carbon Dioxide Cancelled Anion Gap Cancelled BUN Cancelled Creatinine Cancelled Est GFR (CKD-EPI 2020) Cancelled Glucose Cancelled Calcium Cancelled Magnesium Cancelled Troponin I Cancelled NT-Pro-B Natriuret Pep Cancelled Procalcitonin COVID-19 Source Nasopharynx SARS-CoV-2 (PCR) Negative (Negative) Influenza Type A (PCR) Negative (Negative) Influenza Type B (PCR) Negative (Negative) RSV (PCR) Negative (Negative) Intake and Output - 24 Hour Total 04/28/24 20:40 thru 04/28/24 21:09 Weight 113.4 kg Falls Risk Assessment History of Falls No History 04/28/24 21:14 Contributing Factors Impairments 04/28/24 21:14 Ambulatory Aids Uses ambulatory device + 04/28/24 21:14 Tubes/Lines None 04/28/24 21:14 Gait Evaluation W/any additional score 04/28/24 21:14 Cognition No cognitive impairment 04/28/24 21:14 Fall Total Score 53 04/28/24 21:14 Level of Risk High Risk 04/28/24 21:14 Problems (Last Reviewed 01/12/24 @ 09:40 by Christine Castellano DPM) Viral upper respiratory illness (Acute) Acute respiratory failure with hypoxia (Acute) Exertional shortness of breath (Acute) Chronic cough (Acute) Type 2 diabetes mellitus with peripheral neuropathy (Acute) Notes 04/28/24 23:35 Nursing Notes by Breanna Giraldo [id number]: Trialed pt on RA s/p updraft treatment #2, pt SpO2@90% w/ increased incidence of coughing and pt c/o feeling 'winded'. SPOOL TENDER Loren aware and pt placed on 2lpm via NC. On 2lpm via NC pt SpO2 >94% sustained pt reports mild improvement in symptoms. Will continue to monitor all systems and report pertinent info to other members of pt care team as appropriate. See data flowsheet and eMAR for further details Initialized on 04/28/24 23:35 - END OF NOTE v v v v v v v v v Sending and/or Receiving Nurses: Please use comment section below to note any information pertinent to the patient hand-off not included above. Information / Comments: Report received. Pt going to room 212. Report received from: Breanna Giraldo,RN @ [phone].
[2024-04-29 00:19] LABS: Procalcitonin < 0.10 ng/mL
--- OUTSIDE RECORDS SUMMARY | 2024-04-29 00:30 | XMS_ITS | Encounter Summary ---
Author Organization [facility] [place] [address] Care Team Providers Care It Trainer Name Role Phone Unavailable Primary Care Provider Unavailabl e Reason for Referral * Diagnostic Test (Routine) - Pending Review Specialty Diagnoses / Procedures Referred By Silvana taylor Referred To Contact Radiology Diagnoses Acute cholecystitis Procedures IR Cholecystostomy Tube Placement Merissa Oakes PA [facility] [place] [address] [place] [address] Referral ID Status Reason Start Date Expiration Date Visits Requested Visits Authorized [id number] Pending Review Specialty Service Requested 11/15/2023 05/17/2025 1 1 Encounter Details Date Type Department Care Team (Late st Contact Info) Description 11/15/2023 [place] [address] Merissa Oakes PA [facility] [place] [address] Acute cholecystitis Social History Tobacco [...] Service contacted by Dr. Alexandro Smith at [facility] at 09:10 11/14 regarding the procedure request below. There are no answered order specific questions. History of Present Illness: Per chart review, Nilam Dyer is a 73 y.o. female currently admittedto [facility] for gallstone pancreatitis with rising leukocytosis, [...] 9:30 AM EST Office Visit Dermatology at [facility] [address] [place] [address] Rama Justice MD [facility] [address] [place] [place] [address] documented as of this encounter Results * [...] the tract was dilated and a 10 Marshallese Fr locking pigtail drain was advanced into [...] discharge to return via hospital transfer to [facility], when meets criteria Resident/Fellow: Alvin Harris MD Attending: Dr. Mendiola I, Dr. Mendiola, was present throughout the procedure. I was present during the intraservice time as documented by the IR Nurse. ?? Efraín Teran DO IM[facility] IR ORDERABLES documented in this encounter Visit Diagnoses Diagnosis Acute cholecystitis Acute cholecystitis documented in this encounter
--- OUTSIDE RECORDS SUMMARY | 2024-04-29 00:30 | XMS_ITS | Encounter Summary ---
Author Organization [facility] Address [facility] [place] [address] Care Team Providers Care Playground Monitor Name Role Phone Unavailable Primary Care Provider Unavailabl e Encounter Details Date Type Department Care Team (Late st Contact Info) Description 03/05/2024 Telephone Dermatology at [facility] [address] [place] [address] Rama Justice MD [facility] [address] [place] [address] Social History Tobacco Use Types [...] submit a PA? She is in a prison and I do not believe they have a dermatologsit to submit the prescription. Thank you! documented in this encounter Plan of Treatment Upcoming Encounters Date Type Department Care Team (Late st Contact Info) Description 05/29/2024 9:30 AM EST Office Visit Dermatology at [facility] [address] [place] [address] Rama Justice MD [facility] DR [address] [facility] [address] documented as of this encounter Visit Diagnoses Not on filedocumented in this encounter
--- OUTSIDE RECORDS SUMMARY | 2024-04-29 00:30 | XMS_ITS | Encounter Summary ---
Author Organization [facility] Address [facility] [place] [address] Care Team Providers Care Roller Helper Name Role Phone Unavailable Primary Care Provider Unavailabl e Encounter Details Date Type Department Care Team (Latest Contact Info) Description 02/24/2024 Transcribe Orders Dermatology at [facility] [address] [place] [id number] Rama Justice MD [facility] [place] [address] Hidradenitis suppurativa; High risk medication use Social [...] Dermatology at [facility] [address] [place] [phone] Rama Justice MD [facility] [place] [address] Scheduled Orders Name Type Priority Associated Diagnoses [...]
--- OUTSIDE RECORDS SUMMARY | 2024-04-29 00:30 | XMS_ITS | Clinical Summary ---
Author Organization [facility] Address [address] [place] [address] Care Team Providers Care Count Room Clerk Name Role Phone Unknown, Provider Primary Care Provider Unava ilable Encounters Date Type Department Care Team Description 02/29/2024 Lab Requisition [facility] Pathology & Laboratory [address] [address] Outr Resulting Lab, Provider 02/24/2024 Lab Requisition [facility] Pathology & Laboratory [address] [address] Outr Resulting Lab, Provider from Last 3 [...] C Antibody Negative Negative 02/29/2024 23:10 EDT [facility] Blood VENOUS BLOOD / Unknown 02/29/2024 14:40 EDT 02/29/2024 21:40 EDT Provider Outr Resulting Lab CHEMISTRY & BLOOD GAS ORDERABLES Performing Organization Address City/[facility]/ZIP Co de Phone Number [facility] [address] [place] [address] * HEPATITIS B CORE ANTIBODY (TOTAL) (02/29/2024 14:40 EDT) Hepatitis B Core Ab, Total Negative Negative 02/29/2024 23:13 EDT [facility] Blood VENOUS BLOOD / Unknown 02/29/2024 14:40 EDT 02/29/2024 21:40 EDT Provider Outr Resulting Lab CHEMISTRY & BLOOD GAS ORDERABLES [facility] [address] [place] [address] * HEPATITIS B SURFACE ANTIBODY (02/29/2024 14:40 EDT) Hep B Surface Ab, Quantitative <3.1 See Note mIU/mL 02/29/2024 22:30 EDT [facility] Comment: Reference Range for Hep B Surface Ab, Quant: Positive: >= 10.0 mIU/mL Negative: ??< 10.0 mIU/mL Patient is presumed to not be immune to infection with Hepatitis B Virus. Hep B Surface Ab, Qualitative Negative See Note 02/29/2024 22:30 EDT [facility] Comment: Reference Range for Hep B Surface Ab, Qual: Unvaccinated: ??Negative Vaccinated: ??Positive Blood VENOUS BLOOD / Unknown 02/29/2024 14:40 EDT 02/29/2024 21:40 EDT Provider Outr Resulting Lab CHEMISTRY & BLOOD GAS ORDERABLES Performing Organization Address [facility] Co de Phone Number [facility] [address] [place] [address] * HEPATITIS B SURFACE ANTIGEN (02/29/2024 14:40 EDT) Hep B Surface Ag Negative Negative 02/29/2024 22:44 EDT [facility] Blood VENOUS BLOOD / Unknown 02/29/2024 14:40 EDT 02/29/2024 21:40 EDT Provider Outr Resulting Lab CHEMISTRY & BLOOD GAS ORDERABLES Performing Organization Address [facility] Co de Phone Number [facility] [address] [place] [address] * QUANTIFERON MITOGEN (PERFORMABLE) (02/23/2024 13:40 EDT) Blood VENOUS BLOOD / Unknown 02/23/2024 13:40 EDT 02/24/2024 17:50 EDT Provider Outr Resulting Lab IMMUNOLOGY A ND SEROLOGY ORDERABLES Performing Organization Address [facility] Co de Phone Number [facility] [address], [place] [phone] * QUANTIFERON TB2 (PERFORMABLE) (02/23/2024 13:40 EDT) Blood VENOUS BLOOD / Unknown 02/23/2024 13:40 EDT 02/24/2024 17:50 EDT Provider Outr Resulting Lab IMMUNOLOGY A ND SEROLOGY ORDERABLES Performing Organization Address [facility] de Phone Number [facility] [address] [place] [address] * QUANTIFERON TB1 (PERFORMABLE) (02/23/2024 13:40 EDT) Blood VENOUS BLOOD / Unknown 02/23/2024 13:40 EDT 02/24/2024 17:50 EDT Provider Outr Resulting Lab IMMUNOLOGY A ND SEROLOGY ORDERABLES Performing Organization Address [facility] de Phone Number [facility] [address] [place] [address] * QUANTIFERON NIL (PERFORMABLE) (02/23/2024 13:40 EDT) Blood VENOUS BLOOD / Unknown 02/23/2024 13:40 EDT 02/24/2024 17:50 EDT Provider Outr Resulting Lab IMMUNOLOGY A ND SEROLOGY ORDERABLES Performing Organization Address [facility] de Phone Number [facility] [address] [place] [address] * QUANTIFERON INTERPRETATION (PERFORMABLE) (02/23/2024 13:40 EDT) Pathologist [facility] Quantiferon Interpretation Negative Negative 02/27/2024 13:45 EDT [facility] Comment:No interferon-gamma response to M. tuberculosis antigens was detected. ??Infection with M. tuberculosis is unlikely. A single negative result does not exclude infection with M. tuberculosis. ??In patients at high risk for M. tuberculosis infection, a second test should be considered. TB1 Ag minus Nil 0.01 IU/ml 02/27/20 13:45 EDT [facility] TB2 Ag minus Nil 0.00 IU/mL 02/27/20 13:45 EDT [facility] Blood VENOUS BLOOD / Unknown 02/23/2024 13:40 EDT 02/27/2024 12:40 EDT Provider Outr Resulting Lab IMMUNOLOGY A ND SEROLOGY ORDERABLES [facility] [address], [place] [address] from Last 3 Months Care Teams Count Room Clerk Relationship Specialty Start Date End Date Unknown, Provider, PCP - General 11/19/23
--- OUTSIDE RECORDS SUMMARY | 2024-04-29 00:30 | XMS_ITS | Encounter Summary ---
Author Organization [facility] Address [facility] [place] [address] Care Team Providers Care Street Department Dispatcher Name Role Phone Unavailable Primary Care Provider Unavailabl e Reason for Visit * Reason Comments Prior Authorization Cosentyx Sensoready Pens. 150mg/mL x 2 Encounter Details Date Type Department Care Team (Late st Contact Info) Description 03/06/2024 Specialty [place] [address] Basilio Rausch CPHT Social History Tobacco Use [...] MG/2 PENS (150 MG/ML) SUBCUTANEOUS Medication ID: [id number] Approval Dates: 06/20/2023 to 08/27/2024 Insurance requirements/notes: None Other Notes: None Case/Reference #: Approval notification Received via: Telephone Copay: $0.00 Copay assistance: None Copay Notes: Insurance mandated Pharmacy: [facility]: Yes Patient Notified: To be contacted by [facility] for consult Pharmacy staff will be reaching out to the patient to inform them of their medication's [facility]. If applicable, a pharmacist will speak with the patient to offer our specialty pharmacy services and to arrange delivery of their medication. Basilio Rausch CPHT 03/06/24 8:45 AM documented in this encounter Plan of Treatment Upcoming Encounters Date Type Department Care Team (Late st Contact Info) Description 05/29/2024 9:30 AM EST Office Visit Dermatology at [facility] [address] [place] [address] Rama Justice MD [facility] [address] [place] [address] documented as of this encounter Visit Diagnoses Not on filedocumented in this encounter
--- OUTSIDE RECORDS SUMMARY | 2024-04-29 00:30 | XMS_ITS | Encounter Summary ---
Author Organization [facility] Address [facility] [place] [address] Care Team Providers Care Assistant Teacher Primary Name Role Phone Unavailable Primary Care Provider Unavailabl e Reason for Referral * Diagnostic Test (Routine) - Pending Review Specialty Diagnoses / Procedures Referred By Silvana taylor Referred To Contact Radiology Diagnoses Acute cholecystitis Procedures IR Cholecystostomy Tube Placement Merissa Oaeks PA [facility] [place] [address] [facility] [place] [address] Referral ID Status Reason Start Date Expiration Date Visits Requested Visits Authorized [id number] Pending Review Specialty Service Requested 11/15/2023 05/17/2025 1 1 Reason for Visit * Diagnostic Test (Routine) - Pending Review Specialty Diagnoses / Procedures Referred By Silvana taylor Referred To Contact Radiology Diagnoses Acute cholecystitis Procedures IR Cholecystostomy Tube Placement Merissa Oakes PA [facility] [place] [address] [place] [address] Referral ID Status Reason Start Date Expiration Date Visits Requested Visits Authorized [id number] Pending Review Specialty Service Requested 11/15/2023 05/17/2025 1 1 Encounter Details Date Type Department Care Team (Latest Contact Info) Description 11/16/2023 12:36 PM EDT - 11/16/2023 11:59 PM EDT Hospital En[place] [address] Efraín Teran, [facility] [place] [address] Acute cholecystitis Discharge Disposition: Home Social History [...] or any other surface. Always put a prepared foods service team member on the end to keep clean. 11. If you drainage bags starts to have an odor, you can clean the bag after removing it from the tube. Turn the stopcock to off. Put on a prepared foods service team member to the end of the stopcock to [...] is during regular office hours, please call [phone]. If it is after regular office hours, or on weekends or holidays, please call [phone] and ask to speak to the Heat Treating Operator education administrative assistant for Interventional Radiology. XX You have received [...] Questions Answers Where will study be performed? [facility] Radiology [120] To be scheduled Next available after expected date Reason for exam and clinical history: Suspected acute cholecystitis, down/back procedure from [facility] Is the patient on anticoagulant / [...] Service contacted by Dr. Alexandro Smith at [facility] at 09:10 11/14 regarding the procedure request below. There are no answered order specific questions. History of Present Illness: Per chart review, Nilam Dyer is a 73 y.o. female currently admittedto [facility] for gallstone pancreatitis with [...] 9:30 AM EST Office Visit Dermatology at [facility] [address] [place] [address] Rama Justice MD [facility] [address] [place] [address] documented as of this encounter Procedures Procedure [...] DO POINT OF CARE TEST O RDERARANDELL [facility] [place] [address] * IR Cholecystostomy Tube Placement (11/16/2023 2:57 [...] the tract was dilated and a 10 Armenian Fr locking pigtail drain was advanced into [...] discharge to return via hospital transfer to [facility], when meets criteria Resident/Fellow: [...] - GENER AL ORDERABLES Performing Organization Address City/State/[facility] Co de Phone Number [facility] [place] [phone] * (ABNORMAL) Body Fluid Culture, Aerobic (11/16/2023 [...] - GENER AL ORDERABLES Performing Organization Address [facility] Co de Phone Number [facility] [place] [address] * POCT Glucose (11/16/2023 1:35 PM EDT) Glucose, POC 84 65 - 199 mg/dL [facility] Comment: Supplemental ranges: <140 mg/dL before meals <180 mg/dL all other times of the day Blood 11/16/2023 1:35 PM EDT 11/16/2023 1:35 PM EDT Efraín Teran DO POINT OF CARE TEST O RDERABLES Performing Organization Address [facility] Co de Phone Number [facility] [place] [address] documented in this encounter Visit Diagnoses Diagnosis [...]
--- OUTSIDE RECORDS SUMMARY | 2024-04-29 00:30 | XMS_ITS | Clinical Summary ---
Author Organization [facility] Address [facility] [place] [address] Care Team Providers Care Uptwist Spinner Name Role Phone Unavailable Primary Care Provider [...] Team Description 03/06/2024 Specialty [place] [phone] Basilio Rausch CPHT 03/06/2024 Telephone Dermatology at [facility] [address] [place] [address] Rama Justice MD 03/05/2024 Telephone Dermatology at [facility] [address] [place] [address] Rama Justice MD 03/01/2024 Telephone [facility] [address] [address] [place] [address] Rama Justice MD 02/28/2024 Telephone [facility] at [facility] [address] [place] [address] Rama Justice MD 02/28/2024 Telephone [facility] [address] [place] [address] Rama Justice MD 02/24/2024 Transcribe Orders Dermatology at [facility] [address] [place] [address] Rama Justice MD Hidradenitis suppurativa; High risk medication use 02/23/2024 Telephone Dermatology at [facility] [address] [facility] [place] [address] Rama Justice MD 02/14/2024 11:00 AM EDT Office Visit Dermatology at [facility] [address] [place] [address] Rama Justice MD Hidradenitis suppurativa; Intertrigo from [...] EST Office Visit Dermatology at [facility] [address] [place] [address] Rama Justice MD [facility] DR [address] [place] [address] Health Maintenance Due Date Last Done Comments [...]
--- OUTSIDE RECORDS SUMMARY | 2024-04-29 00:30 | XMS_ITS | Encounter Summary ---
Author Organization [facility] Address [facility] [place] [address] Care Team Providers Care Stove Fitter Name Role Phone Unavailable Primary Care Provider Unavailabl e Encounter Details Date Type Department Care Team (Late st Contact Info) Description 03/06/2024 Telephone Dermatology at [facility] [address] [place] [address] Rama Justice MD [facility] [address] [place] [address] Social History Tobacco Use Types Packs/Day Years [...] 8:30 AM. Placed a call to the detention of Nilam. Spoke with JANET Martinez and [...] # is Att: Michelle. There is an GOLF BALL MARKER that is in the facility that views [...] submit a PA? She is in a detention and I do not believe they have [...] [facility] [address] [place] [address] Rama Justice MD [facility] [address] [place] [address] documented as of this encounter Visit Diagnoses Not on filedocumented in this encounter
--- OUTSIDE RECORDS SUMMARY | 2024-04-29 00:30 | XMS_ITS | Encounter Summary ---
Author Organization [facility] Address [address] [place] [address] Care Team Providers Care Nut Orchardist Name Role Phone Unknown, Provider Primary Care Provider Unava ilable Encounter Details Date Type Department Care Team (Late st Contact Info) Description 10/17/2023 Lab Requisition [facility] Pathology & Laboratory Medicine - [address] [address] Outr Resulting Lab, Provider Social History Tobacco [...] 275 - 295 mOsm/kg 10/17/2023 16:[address] [facility] Blood VENOUS BLOOD / Unknown 10/16/2023 13:39 EDT 10/17/2023 16:27 EDT Provider Outr Resulting Lab CHEMISTRY & BLOOD GAS ORDERABLES [facility] [address] [place], [place] [address] documented in this encounter Visit Diagnoses Not on filedocumented in this encounter Care Teams Nut Orchardist Relationship Specialty Start Date End Date Unknown, Provider, PCP - General 11/19/23 documented as of this encounter
--- OUTSIDE RECORDS SUMMARY | 2024-04-29 00:30 | XMS_ITS | Encounter Summary ---
Author Organization [facility] Address [facility] [place] [address] Care Team Providers Care Medical Records Director Name Role Phone Unavailable Primary Care Provider Unavailabl e Encounter Details Date Type Department Care Team (Late st Contact Info) Description 11/11/2023 Ancillary Procedure Radiology Library at [facility] [place] [address] Morgan Beauchamp MD [facility] [place] [address] Social History Tobacco Use Types Packs/Day Years [...] 9:30 AM EST Office Visit Dermatology at [facility] [address] [place] [address] Rama Justice MD [facility] DR [address] [place] [address] documented as of this encounter Procedures Procedure Name Priority Date/Time Associated Diagnosis Comments FILM LIBRARY STORAGE ONLY NUCLEAR MEDICINE Routine 11/11/2023 12:00 AM EDT documented in this encounter Results * Film Library- Storage Only nuclear medicine (11/11/2023 12:00 AM EDT) Narrative [facility] - 11/15/2023 9:11 AM EDT This exam is auto-finalizing. It's purpose is for storage only. Morgan Beauchamp MD [facility] FILM LIBRARY ORD ERABLES Performing Organization Address City/State/[facility] Co de Phone Number [place], [place] documented in this encounter Visit Diagnoses Not on filedocumented in this encounter
--- OUTSIDE RECORDS SUMMARY | 2024-04-29 00:30 | XMS_ITS | Encounter Summary ---
Author Organization [facility] Address [address] [place] [address] Care Team Providers Care Horse Race Timer Name Role Phone Unknown, Provider Primary Care Provider Unava ilable Encounter Details Date Type Department Care Team (Late st Contact Info) Description 02/29/2024 Lab Requisition [facility] Pathology & Laboratory Medicine - [address] [address] Outr Resulting Lab, Provider Social History Tobacco [...] <3.1 See Note mIU/mL 02/29/2024 22:30 EDT [facility] Comment: Reference Range for Hep B Surface Ab, Quant: Positive: >= 10.0 mIU/mL Negative: ??< 10.0 mIU/mL Patient is presumed to not be immune to infection with Hepatitis B Virus. Hep B Surface Ab, Qualitative Negative See Note 02/29/2024 22:30 EDT [facility] Comment: Reference Range for Hep B Surface Ab, Qual: Unvaccinated: ??Negative Vaccinated: ??Positive Blood VENOUS BLOOD / Unknown 02/29/2024 14:40 EDT 02/29/2024 21:40 EDT Provider Outr Resulting Lab CHEMISTRY & BLOOD GAS ORDERABLES [facility] [address] [place] [address] * HEPATITIS B CORE ANTIBODY (TOTAL) (02/29/2024 14:40 EDT) Hepatitis B Core Ab, Total Negative Negative 02/29/2024 23:13 EDT [facility] Blood VENOUS BLOOD / Unknown 02/29/2024 14:40 EDT 02/29/2024 21:40 EDT Provider Outr Resulting Lab CHEMISTRY & BLOOD GAS ORDERABLES Performing Organization Address City/[facility] Co de Phone Number [facility] [address] [place] [address] * HEPATITIS B SURFACE ANTIGEN (02/29/2024 14:40 EDT) Hep B Surface Ag Negative Negative 02/29/2024 22:44 EDT [facility] Blood VENOUS BLOOD / Unknown 02/29/2024 14:40 EDT 02/29/2024 21:40 EDT Provider Outr Resulting Lab CHEMISTRY & BLOOD GAS ORDERABLES Performing Organization Address [facility] Co de Phone Number [facility] [address] [place] [address] * HEPATITIS C AB W REFLEX TO HCV RNA BY PCR (02/29/2024 14:40 EDT) Hep C Antibody Negative Negative 02/29/2024 23:10 EDT [facility] Blood VENOUS BLOOD / Unknown 02/29/2024 14:40 EDT 02/29/2024 21:40 EDT Provider Outr Resulting Lab CHEMISTRY & BLOOD GAS ORDERABLES [facility] [address] [place], [place] [id number] documented in this encounter Visit Diagnoses Not on filedocumented in this encounter Care Teams Horse Race Timer Relationship Specialty Start Date End Date Unknown, Provider, PCP - General 11/19/23 documented as of this encounter
--- OUTSIDE RECORDS SUMMARY | 2024-04-29 00:30 | XMS_ITS | Encounter Summary ---
Author Organization [facility] Address [facility] [place] [address] Care Team Providers Care Boat Rigger Name Role Phone Unavailable Primary Care Provider Unavailabl e Encounter Details Date Type Department Care Team (Late st Contact Info) Description 02/23/2024 Telephone Dermatology at [facility] [address] [place] [phone] Rama Justice MD [facility] DR [address] MAR[address] [place] [address] Social History Tobacco Use Types Packs/Day Years [...] I received a call from Martha at [facility] lab in [place], [place] reaching out regarding the specific Hepatitis [...] 9:30 AM EST Office Visit Dermatology at [facility] [address] [place] [address] Rama Justice MD [facility] [address] [place] [address] documented as of this encounter Visit Diagnoses Not on filedocumented in this encounter
--- OUTSIDE RECORDS SUMMARY | 2024-04-29 00:30 | XMS_ITS | Encounter Summary ---
Author Organization [facility] Address [facility] [place] [address] Care Team Providers Care Cone Cleaner Name Role Phone Unavailable Primary Care Provider Unavailabl e Encounter Details Date Type Department Care Team (Late st Contact Info) Description 12/06/2023 Notes [place] [phone] Jose Mendiola MD [facility] [place] [address] Social History Tobacco Use Types Packs/Day Years [...] PLACEMENT 11/16/2023 IR Cholecystostomy Tube Placement 11/16/2023 [facility] Medications: Benzonatate 200 mg [...] [facility] [address] [place] [address] Rama Justice MD [facility] [address] [place] [address] documented as of this encounter Visit Diagnoses Not on filedocumented in this encounter
--- OUTSIDE RECORDS SUMMARY | 2024-04-29 00:30 | XMS_ITS | Encounter Summary ---
Author Organization [facility] Address [facility] [place] [address] Care Team Providers Care Dictaphone Technician Name Role Phone Unavailable Primary Care Provider Unavailabl e Encounter Details Date Type Department Care Team (Late st Contact Info) Description 11/14/2023 Ancillary Procedure Radiology Library at [facility] [place] [address] Morgan Beauchamp MD [facility] [place] [address] Social History Tobacco Use Types Packs/Day Years [...] Dermatology at [facility] [address] [place] [address] Rama Justice MD [facility] DR [address] MARIE [place] [address] documented as of this encounter Procedures Procedure Name Priority Date/Time Associated Diagnosis Comments FILM LIBRARY STORAGE ONLY CT ABDOMEN Routine 11/14/2023 12:00 AM EDT documented in this encounter Results * Film Library- Storage Only CT Abdomen (11/14/2023 12:00 AM EDT) Narrative [facility] - 11/15/2023 9:10 AM EDT This exam is auto-finalizing. It's purpose is for storage only. Morgan Beauchamp MD IM FILM LIBRARY ORD ERABLES Performing Organization Address City/State/[facility] Co de Phone Number [place], [place] documented in this encounter Visit Diagnoses Not on filedocumented in this encounter
--- OUTSIDE RECORDS SUMMARY | 2024-04-29 00:30 | XMS_ITS | Encounter Summary ---
Author Organization [facility] Address [facility] [place] [address] Care Team Providers Care Reverse Logistics Analyst Name Role Phone Unavailable Primary Care Provider Unavailabl e Encounter Details Date Type Department Care Team (Late st Contact Info) Description 02/14/2024 11:00 AM EDT Office Visit Dermatology at [facility] [address] [place] [address] Rama Justice MD [facility] [address] [place] [address] Hidradenitis suppurativa; Intertrigo Social History Tobacco Use [...] history of IBD - Per discussion with snf staff, nurse practioner on staff needs paper [...] if still active. - Per discussion with snf staff, nurse practioner on staff needs paper prescriptions priorto writing his/her own prescriptions. Provided paper prescriptions for the above medications. Other: N/A RTC: 3 month HS follow up [x]Note routed to clerical secretary []Recall placed in scheduling system []Appointment scheduled at checkout Scribe attestation: DERRICK White has performed the documentation for this encounter in the presence of and acting as a scribe for Rama Justice MD. I performed the above scribed service and agree with the accuracy of the documentation in this encounter. Reviewed and signed by: Rama Justice MD Dermatology [facility] documented in this encounter Plan of Treatment Upcoming Encounters Date Type Department Care Team (Late st Contact Info) Description 05/29/2024 9:30 AM EST Office Visit Dermatology at [facility] [address] [place] [address] Rama Justice MD [facility] [address] [place] [address] documented as of this encounter Visit Diagnoses Diagnosis Hidradenitis suppurativa Hidradenitis Intertrigo Other specified erythematous condition documented in this encounter
--- OUTSIDE RECORDS SUMMARY | 2024-04-29 00:30 | XMS_ITS | Referral Summary ---
Author Organization [facility] Address [address] [place] [address] Care Team Providers Care Fish Net Stringer Name Role Phone Unknown, Provider Primary Care Provider Unava ilable Encounters Date Type Department Care Team Description 02/29/2024 Lab Requisition [facility] Pathology & Laboratory [address] [address] Outr Resulting Lab, Provider 02/24/2024 Lab Requisition [facility] Pathology & Laboratory [address] [address] Outr Resulting Lab, Provider from Last 3 [...] C Antibody Negative Negative 02/29/2024 23:10 EDT [facility] Blood VENOUS BLOOD / Unknown 02/29/2024 14:40 EDT 02/29/2024 21:40 EDT Provider Outr Resulting Lab CHEMISTRY & BLOOD GAS ORDERABLES Performing Organization Address City/[facility]/ZIP Co de Phone Number [facility] [address] [place] [address] * HEPATITIS B CORE ANTIBODY (TOTAL) (02/29/2024 14:40 EDT) Hepatitis B Core Ab, Total Negative Negative 02/29/2024 23:13 EDT [facility] Blood VENOUS BLOOD / Unknown 02/29/2024 14:40 EDT 02/29/2024 21:40 EDT Provider Outr Resulting Lab CHEMISTRY & BLOOD GAS ORDERABLES Performing Organization Address City/[facility]/ZIP Co de Phone Number [facility] [address] [place] [address] * HEPATITIS B SURFACE ANTIBODY (02/29/2024 14:40 EDT) Hep B Surface Ab, Quantitative <3.1 See Note mIU/mL 02/29/2024 22:30 EDT [facility] Comment: Reference Range for Hep B Surface Ab, Quant: Positive: >= 10.0 mIU/mL Negative: ??< 10.0 mIU/mL Patient is presumed to not be immune to infection with Hepatitis B Virus. Hep B Surface Ab, Qualitative Negative See Note 02/29/2024 22:30 EDT [facility] Comment: Reference Range for Hep B Surface Ab, Qual: Unvaccinated: ??Negative Vaccinated: ??Positive Blood VENOUS BLOOD / Unknown 02/29/2024 14:40 EDT 02/29/2024 21:40 EDT Provider Outr Resulting Lab CHEMISTRY & BLOOD GAS ORDERABLES Performing Organization Address [facility]/ZIP Co de Phone Number [facility] [address] [place], [place] [address] * HEPATITIS B SURFACE ANTIGEN (02/29/2024 14:40 EDT) Hep B Surface Ag Negative Negative 02/29/2024 22:44 EDT [facility] Blood VENOUS BLOOD / Unknown 02/29/2024 14:40 EDT 02/29/2024 21:40 EDT Provider Outr Resulting Lab CHEMISTRY & BLOOD GAS ORDERABLES Performing Organization Address City/[facility] Co de Phone Number [facility] [address] [place], [place] [phone] * QUANTIFERON MITOGEN (PERFORMABLE) (02/23/2024 13:40 EDT) Blood VENOUS BLOOD / Unknown 02/23/2024 13:40 EDT 02/24/2024 17:50 EDT Provider Outr Resulting Lab IMMUNOLOGY A ND SEROLOGY ORDERABLES Performing Organization Address City/[facility] Co de Phone Number [facility] [address] [place], [place] [address] * QUANTIFERON TB2 (PERFORMABLE) (02/23/2024 13:40 EDT) Blood VENOUS BLOOD / Unknown 02/23/2024 13:40 EDT 02/24/2024 17:50 EDT Provider Outr Resulting Lab IMMUNOLOGY A ND SEROLOGY ORDERABLES Performing Organization Address City/[facility]/ZIP Co de Phone Number [facility] [address] [place] [address] * QUANTIFERON TB1 (PERFORMABLE) (02/23/2024 13:40 EDT) Blood VENOUS BLOOD / Unknown 02/23/2024 13:40 EDT 02/24/2024 17:50 EDT Provider Outr Resulting Lab IMMUNOLOGY A ND SEROLOGY ORDERABLES Performing Organization Address [facility] de Phone Number [facility] [address] [place] [address] * QUANTIFERON NIL (PERFORMABLE) (02/23/2024 13:40 EDT) Blood VENOUS BLOOD / Unknown 02/23/2024 13:40 EDT 02/24/2024 17:50 EDT Provider Outr Resulting Lab IMMUNOLOGY A ND SEROLOGY ORDERABLES Performing Organization Address [facility] de Phone Number [facility] [address] [place] [address] * QUANTIFERON INTERPRETATION (PERFORMABLE) (02/23/2024 13:40 EDT) [facility] Quantiferon Interpretation Negative Negative 02/27/2024 13:45 EDT [facility] Comment:No interferon-gamma response to M. tuberculosis antigens was detected. ??Infection with M. tuberculosis is unlikely. A single negative result does not exclude infection with M. tuberculosis. ??In patients at high risk for M. tuberculosis infection, a second test should be considered. TB1 Ag minus Nil 0.01 IU/ml 02/27/20 13:45 EDT [facility] TB2 Ag minus Nil 0.00 IU/mL 02/27/20 13:45 EDT [facility] Blood VENOUS BLOOD / Unknown 02/23/2024 13:40 EDT 02/27/2024 12:40 EDT Provider Outr Resulting Lab IMMUNOLOGY A ND SEROLOGY ORDERABLES Performing Organization Address [facility]/State/ZIP Co de Phone Number [facility] [address] [place] [address] from Last 3 Months Care Teams Fish Net Stringer Relationship Specialty Start Date End Date Unknown, Provider, PCP - General 11/19/23
--- OUTSIDE RECORDS SUMMARY | 2024-04-29 00:30 | XMS_ITS | Encounter Summary ---
Author Organization [facility] Address [facility] [place] [address] Care Team Providers Care Tearoom Host Name Role Phone Unavailable Primary Care Provider Unavailabl e Encounter Details Date Type Department Care Team (Late st Contact Info) Description 11/29/2023 2:20 AM EDT Ancillary Procedure Radiology Library at [facility] [place] [phone] Efraín Deras MD [facility] [place] [address] Social History Tobacco Use Types Packs/Day Years [...] 9:30 AM EST Office Visit Dermatology at [facility] [address] [place] [address] Rama Justice MD [facility] [address] [place] [address] documented as of this encounter Procedures Procedure Name Priority Date/Time Associated Diagnosis Comments FILM LIBRARY STORAGE ONLY CT CHEST ABDOMEN PELVIS Routine 11/29/2023 2:17 AM EDT documented in this encounter Results * Film Library- Storage Only CT Chest Abdomen Pelvis (11/29/2023 2:17 AM EDT) Narrative [facility] - 11/29/2023 2:17 AM EDT This exam is auto-finalizing. It's purpose is for storage only. Efraín Deras MD [facility] FILM LIBRARY ORD ERABLES Performing Organization Address City/State/[facility] Co de Phone Number KE HAYNES [place], [place] documented in this encounter Visit Diagnoses Not on filedocumented in this encounter
--- OUTSIDE RECORDS SUMMARY | 2024-04-29 00:30 | XMS_ITS | Encounter Summary ---
Author Organization [facility] Address [facility] [place] [address] Care Team Providers Care Supervisor Fertilizer Name Role Phone Unavailable Primary Care Provider Unavailabl e Encounter Details Date Type Department Care Team (Late st Contact Info) Description 11/11/2023 12:05 AM EDT Ancillary Procedure Radiology Library at [facility] [place] [address] Morgan Beauchamp MD [facility] [place] [address] Social History Tobacco Use Types Packs/Day Years [...] AM EST Office Visit Dermatology at [facility] [address] [place] [address] Rama Justice MD [facility] DR [address] [place] [address] documented as of this encounter Procedures Procedure Name Priority Date/Time Associated Diagnosis Comments FILM LIBRARY STORAGE ONLY CT ABDOMEN Routine 11/11/2023 12:05 AM EDT documented in this encounter Results * Film Library- Storage Only CT Abdomen (11/11/2023 12:05 AM EDT) Narrative [facility] - 11/15/2023 9:12 AM EDT This exam is auto-finalizing. It's purpose is for storage only. Morgan Beauchamp MD IM FILM LIBRARY ORD ERABLES Performing Organization Address City/State/[facility] Co de Phone Number [place], [place] documented in this encounter Visit Diagnoses Not on filedocumented in this encounter
--- OUTSIDE RECORDS SUMMARY | 2024-04-29 00:30 | XMS_ITS | Encounter Summary ---
Author Organization [facility] Address [facility] [place] [address] Care Team Providers Care Croze Cutter Helper Name Role Phone Unavailable Primary Care Provider Unavailabl e Encounter Details Date Type Department Care Team (Late st Contact Info) Description 02/28/2024 Telephone Dermatology at [facility] [address] [place] [address] Rama Justice MD [facility] [address] [place] [address] Social History Tobacco Use Types [...] phone call from Faith at the [facility] where Nilam Dyer lives. She was wondering if the labs that Dr. Justice needs could be drawn at their facility and if we can fax over the orders? The fax # is [phone]. If anything further is needed their phone number is [phone] (ask for Faith) documented in this encounter Plan of Treatment Upcoming Encounters Date Type Department Care Team (Late st Contact Info) Description 05/29/2024 9:30 AM EST Office Visit Dermatology at [facility] [address] [place] [address] Rama Justice MD [facility] [address] [place] [address] documented as of this encounter Visit Diagnoses Not on filedocumented in this encounter
--- OUTSIDE RECORDS SUMMARY | 2024-04-29 00:30 | XMS_ITS | Encounter Summary ---
Author Organization [facility] Address [facility] [place] [address] Care Team Providers Care Clinical Systems Analyst Name Role Phone Unavailable Primary Care Provider Unavailabl e Encounter Details Date Type Department Care Team (Late st Contact Info) Description 02/28/2024 Telephone Dermatology at [facility] [address] [place] [address] Rama Justice MD [facility] [address] MAR[address] [place] [address] Social History Tobacco Use Types Packs/Day Years [...] for Nilam as she resides at the [facility]. Faith mentioned they can see some labs have been done at the [facility]. We have not received any labs [...] the results faxed to the office @ [phone]. Faxed lab orders today @ 2:48 PM to [facility] where Nilam resides fax # and phone # is phone number is [phone] Quant Gold Hep C Antibody Hep B Core Antibody Hep B Surface Antibody Hep B Surface Antigen documented in this encounter Plan of Treatment Upcoming Encounters Date Type Department Care Team (Late st Contact Info) Description 05/29/2024 9:30 AM EST Office Visit Dermatology at [facility] [address] [place] [address] Rama Justice MD [facility] [address] [place] [address] documented as of this encounter Visit Diagnoses Not on filedocumented in this encounter
--- OUTSIDE RECORDS SUMMARY | 2024-04-29 00:30 | XMS_ITS | Encounter Summary ---
Author Organization [facility] Address [address] [place] [address] Care Team Providers Care Bottling Attendant Name Role Phone Unknown, Provider Primary Care Provider Unava ilable Encounter Details Date Type Department Care Team (Late st Contact Info) Description 02/24/2024 Lab Requisition [facility] Pathology & Laboratory Medicine - [address] [address] Outr Resulting Lab, Provider Social History Tobacco [...] Quantiferon Interpretation Negative Negative 02/27/2024 13:45 EDT [facility] Comment:No interferon-gamma response to M. tuberculosis antigens was detected. ??Infection with M. tuberculosis is unlikely. A single negative result does not exclude infection with M. tuberculosis. ??In patients at high risk for M. tuberculosis infection, a second test should be considered. TB1 Ag minus Nil 0.01 IU/ml 02/27/20 13:45 EDT [facility] TB2 Ag minus Nil 0.00 IU/mL 02/27/20 13:45 EDT [facility] Blood VENOUS BLOOD / Unknown 02/23/2024 13:40 EDT 02/27/2024 12:40 EDT Provider Outr Resulting Lab IMMUNOLOGY A ND SEROLOGY ORDERABLES Performing Organization Address City/[facility]/ZIP Co de Phone Number [facility] [address] [place], [place] [phone] * QUANTIFERON MITOGEN (PERFORMABLE) (02/23/2024 13:40 EDT) Blood VENOUS BLOOD / Unknown 02/23/2024 13:40 EDT 02/24/2024 17:50 EDT Provider Outr Resulting Lab IMMUNOLOGY A ND SEROLOGY ORDERABLES Performing Organization Address City/[facility] Co de Phone Number [facility] [address] [place], [place] [phone] * QUANTIFERON TB2 (PERFORMABLE) (02/23/2024 13:40 EDT) Blood VENOUS BLOOD / Unknown 02/23/2024 13:40 EDT 02/24/2024 17:50 EDT Provider Outr Resulting Lab IMMUNOLOGY A ND SEROLOGY ORDERABLES Performing Organization Address [facility]/ZIP Co de Phone Number [facility] [address] [place], [place] [phone] * QUANTIFERON TB1 (PERFORMABLE) (02/23/2024 13:40 EDT) Blood VENOUS BLOOD / Unknown 02/23/2024 13:40 EDT 02/24/2024 17:50 EDT Provider Outr Resulting Lab IMMUNOLOGY A ND SEROLOGY ORDERABLES Performing Organization Address [facility] de Phone Number [facility] [address] [place] [address] * QUANTIFERON NIL (PERFORMABLE) (02/23/2024 13:40 EDT) Blood VENOUS BLOOD / Unknown 02/23/2024 13:40 EDT 02/24/2024 17:50 EDT Provider Outr Resulting Lab IMMUNOLOGY A ND SEROLOGY ORDERABLES Performing Organization Address [facility] Co de Phone Number [facility] [address] [place], [place] [phone] documented in this encounter Visit Diagnoses Not on filedocumented in this encounter Care Teams Bottling Attendant Relationship Specialty Start Date End Date Unknown, Provider, PCP - General 11/19/23 documented as of this encounter
--- OUTSIDE RECORDS SUMMARY | 2024-04-29 00:30 | XMS_ITS | Encounter Summary ---
Author Organization [facility] Address [address] [place] [address] Care Team Providers Care Bolt Sorter Name Role Phone Unknown, Provider MD Primary Care Provider Unava ilable Encounter Details Date Type Department Care Team (Late st Contact Info) Description 11/30/2023 Lab Requisition [facility] Pathology & Laboratory Medicine - [address] [place] [address] Pressure ulcer of right heel, [...] explore management options, if applicable. 12/05/2023 11:34 [facility] Final Diagnosis A. 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 - Acute serositis and adhesions. - Cholelithiasis. - Benign reactive lymph node. 12/05/2023 11:34 [facility] Attestation There was significan t resident/fellow involvement in the diagnostic evaluation of this case. By the signature below, the attending physician certifies that they have personally conducted a gross and/or microscopic examination of the described specimens and rendered or confirmed the above diagnosis. 12/05/2023 11:34 [facility] at 1134 Clinical History Cholecystitis, S/P cholecystostomy tube insertion 11/16/2023, developed sepsis with WBC 31,000, now open robert 12/05/2023 11:34 [facility] Gross Description A. [...] received are several brown-black smooth multifaceted calculi. Gasoline Engine Assembler sections are submitted as follows: BLOCK MARIA A1- cystic duct margin, en face and bisected possible periductal lymph node A2-A6- claim representative sections gallbladder wall A7- section separately submitted necrotic saccular tissue A8- claim representative sections separately submitted tissue fragments MELO HILLIARD(ASCP) 11/30/2023 10:55 12/05/2023 11:34 EDT [facility] Resident/Fell ow: Jefry Montez, 12/05/2023 11:34 EDT [facility] Performing Lab [facility] 12/05/2023 11:34 EDT [facility] Scanned Images 12/05/2023 11:34 EDT [facility] Tissue GALLBLADDER STRUCTURE / Unknown 11/29/2023 14:25 EDT 11/30/2023 8:14 EDT Kirit Tejeda PATHOLOGY ORDERABLES [facility] [address] [place] [address] documented in this encounter Visit Diagnoses Diagnosis Pressure ulcer of right heel, unstageable ([facility]) Hypothyroidism, unspecified Acute cystitis without hematuria Acute cystitis Chronic diastolic (congestive) heart failure ([facility]) Anemia in other chronic diseases classified elsewhere Type 2 diabetes mellitus with hyperglycemia ([facility]) Type II or unspecified type diabetes mellitus without mention of complication, not stated as uncontrolled Type 2 diabetes mellitus with diabetic polyneuropathy ([facility]) Type II or unspecified type diabetes mellitus with neurological manifestations, not stated as uncontrolled Pneumonia, unspecified organism Cholecystitis, unspecified documented in this encounter Care Teams Bolt Sorter Relationship Specialty Start Date End Date Unknown, Provider, PCP - General 11/19/23 documented as of this encounter
--- OUTSIDE RECORDS SUMMARY | 2024-04-29 00:30 | XMS_ITS | Encounter Summary ---
Author Organization [facility] Address [facility] [place] [address] Care Team Providers Care Provider Relations Manager Name Role Phone Unavailable Primary Care Provider Unavailabl e Encounter Details Date Type Department Care Team (Late st Contact Info) Description 03/01/2024 Telephone Dermatology at [facility] [address] [place] [address] Rama Justice MD [facility] DR [address] MARIE [place] [address] Social History Tobacco Use Types Packs/Day Years [...] AM EST Office Visit Dermatology at [facility] [address] [place] [address] Rama Justice MD [facility] DR [address] MAR[address] [place] [address] documented as of this encounter Visit Diagnoses Not on filedocumented in this encounter
--- OUTSIDE RECORDS SUMMARY | 2024-04-29 00:30 | XMS_ITS | Encounter Summary ---
Author Organization [facility] Address [address] [place] [address] Care Team Providers Care Tools Administrator Name Role Phone Unknown, Provider Primary Care Provider Unava ilable Encounter Details Date Type Department Care Team (Late st Contact Info) Description 09/05/[address] [facility] Pathology & Laboratory Medicine - [address] [address] Outr Resulting Lab, Provider Social History Tobacco [...] 201 - 352 mg/dL 09/06/2023 9:56 EDT [facility] Blood VENOUS BLOOD / Unknown 09/05/2023 6:09 EDT 09/05/2023 16:50 EDT Provider Outr Resulting Lab CHEMISTRY & BLOOD GAS ORDERABLES [facility] [address] [place], [place] [address] documented in this encounter Visit Diagnoses Not on filedocumented in this encounter Care Teams Tools Administrator Relationship Specialty Start Date End Date Unknown, Provider, PCP - General 11/19/23 documented as of this encounter
--- OUTSIDE RECORDS SUMMARY | 2024-04-29 00:30 | XMS_ITS | Encounter Summary ---
Author Organization [facility] Address [facility] [place] [address] Care Team Providers Care Senior It Project Manager Name Role Phone Unavailable Primary Care [...] 9:30 AM EST Office Visit Dermatology at [facility] [address] [place] [address] Rama Justice MD [facility] [address] [place] [address] documented as of this encounter Visit Diagnoses Not on filedocumented in this encounter
--- OUTSIDE RECORDS SUMMARY | 2024-04-29 00:30 | XMS_ITS | Encounter Summary ---
Author Organization [facility] Address [address] [place] [id number] Care Team Providers Care Activities Director Scouting Name Role Phone Unknown, Provider Primary Care Provider Unava ilable Encounter Details Date Type Department Care Team (Late st Contact Info) Description 10/17/2023 Lab Requisition [facility] Pathology & Laboratory Medicine - [address] [address] Outr Resulting Lab, Provider Social History Tobacco [...] 150 - 1,150 mOsm/kg 10/17/2023 16:39 EDT [facility] Urine URINE / Unknown 10/16/2023 1 4:38 EDT 10/17/2023 16:27 EDT Provider Outr Resulting Lab URINALYSIS O RDERABLES [facility] [address] [place], [place] [id number] documented in this encounter Visit Diagnoses Not on filedocumented in this encounter Care Teams Activities Director Scouting Relationship Specialty Start Date End Date Unknown, Provider, PCP - General 11/19/23 documented as of this encounter
[2024-04-29] MEDS: traZODone 50 MG TAB PO ×2 (01:20→20:10)
[2024-04-29 06:09] LABS: HCT 38.5 % (36.0-46.0); HGB 12.5 g/dL (11.2-15.7); MCH 26.5 pg (27.0-33.0); MCHC 32.5 % (32.0-36.0); MCV 82 fL (80-95); MPV 9.6 fL (8.0-11.0); Platelet Count 266 10^3/uL (130-400); RBC 4.72 10^6/uL (3.93-5.22); RDW 14.1 % (11.7-14.6); RDW-SD 41.6 fL
[2024-04-29 06:23] LABS: Anion Gap 10.1 mmol/L (3-11); BUN 32 mg/dL (7-18); CO2 29.9 mmol/L (21.0-32.0); CREATININE 1.3 mg/dL (0.55-1.02); Calcium 9.3 mg/dL (8.5-10.1); Chloride 98 mmol/L (98-107); Estimated GFR 43.15 (mL/min/1.73m2); Glucose 249 mg/dL (74-106); Magnesium 1.7 mg/dL (1.8-2.4); Potassium 3.8 mmol/L (3.5-5.1); Sodium 138 mmol/L (136-145)
[2024-04-29 06:39] LABS: D-Dimer 424 ng/mlFEU (<500)
[2024-04-29] MEDS: Pantoprazole 40 MG TABCR PO (09:34)
[2024-04-29] MEDS: predniSONE 20 MG TAB 40 MG PO (09:34)
[2024-04-29] MEDS: Benzonatate 100 MG CAP PO (09:34)
[2024-04-29] MEDS: Magnesium Gluconate 500 MG TAB PO ×2 (09:34→20:10)
[2024-04-29] MEDS: Furosemide 40 MG TAB PO ×2 (09:34→16:44)
[2024-04-29] MEDS: Spironolactone 50 MG TAB PO (09:34)
[2024-04-29] MEDS: Enoxaparin 40 MG/0.4 ML SYR SC (09:35)
[2024-04-29] MEDS: Insulin Aspart 300 UNITS/3 ML PEN SC ×3 (09:35→16:44)
--- NOTE | 2024-04-29 09:50 | INITIAL_ITS ---
Date of service: 04/29/24 Time of Service: 09:50 Care Management Initial Assmt Initial Assessment Reason for Hospitalization: acute respiratory failure with hypoxia Functional Status/Living Situation Patient Presentation: Nilam was sitting up in bed when CM met with her; her daughter Kathy and Kathy's fiance were in the room visiting. Nilam stated that she is still not feeling well. She was wearing a nasal canula, but per RN, she is saturating 92% on room air, therefore the O2 has been turned off. Kathy expressed appreciation for the care that Nilam is receiving at [facility]. Per report, she will have an echo tomorrow. CM will continue to follow. Town of Residence: [place] Resides with: Other (SNF- [facility]) Caregiver/Guardian: resides at the [facility] Natural Supports: daughter, Kathy granddaughter, Noam Employment Status: Retired Instrumental Activities of Daily Living (ADLs): Requires support Medications Medication Management: No Issues/Barriers identified (Nilam receives medications from staff at the [facility]) Physical Functioning/Mobility Assistive Device: FWW Advance Directives Advance Directives: Do you have an Advance Directive: N 09/04/23 11:35 AD On File at [facility]: N 09/04/23 11:35 Date Asked 04/29/24 04/29/24 11:04 AD Date Reviewed COLST On File at [facility] Yes 11/29/23 03:38 COLST Date Scanned 09/06/23 11/29/23 03:38 Code Status Resuscitation Status DNR/DNI Insurance Coverage/Financial Issues Insurance: [facility] Care Team Visit Care Team Role Provider Type Angelika Berumen NP Primary Care Provider NURSE PRACTITIONER Carolina Felix Emergency Provider NURSE PRACTITIONER James Reed MD Admit Provider [facility] STAFF PHYSICIAN Attending Provider Discharge Potential Discharge Needs: PCP F/U Appt Anticipated Barriers to Discharge: None Identified Patient/Family Education Needs: Review discharge instructions, discuss Ask Me Three Transportation: RCT Plan: Anticipate Nilam will return to the [facility], where she resides. She will likely transport via RCT w/c van when ready. She will follow up with facility providers and her discharge plan of care. CM will continue to follow. PFSH All Active Problems (Updated 04/29/24 @ 14:49 by Elise Love NP) CHF (congestive heart failure) (Chronic) 2020, pt. denies any deficits now Viral upper respiratory illness (Acute) Acute respiratory failure with hypoxia (Acute) Exertional shortness of breath (Acute) Chronic cough (Acute) Personal history of Methicillin resistant Staphylococcus aureus infection (Acute) Dysphagia (Acute) Extended spectrum beta lactamase (ESBL) resistance (Acute) Hypo-osmolar hyponatremia (Acute) Type 2 diabetes mellitus with foot ulcer (Acute) Radiculopathy, lumbar region (Acute) Pleural effusion, not elsewhere classified (Acute) Acute on chronic combined systolic (congestive) and diastolic (congestive) heart failure (Acute) Hemiplegia of left 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 (Acute) Nail dystrophy (Acute) Onychomycosis (Acute) Edema (Acute) Type 2 diabetes mellitus with peripheral neuropathy (Acute) Paresthesias (Acute) Anemia in chronic illness (Acute) Transaminitis (Acute) Obesity (Chronic) Unstageable pressure ulcer of right heel (Acute) Poorly controlled type 2 diabetes mellitus with peripheral neuropathy (Acute) Low serum iron (Acute) Lumbar back pain with radiculopathy affecting right lower extremity (Acute) Ambulatory dysfunction (Acute) Weakness (Acute) Medical History Cholecystitis Constipation Hypothyroid Gram-negative bacteremia Pleural effusion, left Hyperglycemia due to type 2 diabetes mellitus Palliative care patient Physician orders for life-sustaining treatment (POLST) form indicates patient wish for [id number] status ACP (advance care planning) Urinary tract infection Stroke Diabetes CHF (congestive heart failure) 2020, pt. denies any deficits now Surgical History S/P cholecystectomy History of ERCP S/P tonsillectomy Family History (Updated 03/01/24 @ 10:33 by Una Alexander) Mother Cancer Social History Smoking/Tobacco Use Status: Never Smoking risk assessment performed?: Yes Alcohol Intake: never Drug use: Never Substance use type: does not use Housing: skilled nursing What is your relationship status?: Panel score (0-1 are the most socially isolated patients): 0 Do you feel safe at home: Yes Do you feel safe in your relationship?: Yes Additional Social history: PT RESIDES AT THE [facility](Care Management) Screening Will the Patient Participate in the Screening?: Yes Do you worry about having a steady place to live?: no In the past 12 months, have you had to go without electric, gas, oil or water in your home?: no Have you or anyone in your house had to go without enough food to eat?: no Has lack of transportation kept you from medical appointments or from doing things needed for daily living?: no Has anyone in your support network made you feel unsafe for any reason?: no Health Related Social Needs Health related social needs details: From [facility]
[2024-04-29] MEDS: Ferrous Sulfate 325 MG TAB PO (10:26)
[2024-04-29] MEDS: Insulin Glargine 300 UNITS/3 ML PEN 15 UNITS SC (10:27)
[2024-04-29] MEDS: Normal Saline Flush 10 ML SYR IVP ×2 (10:27→20:11)
[2024-04-29] MEDS: Acetaminophen 325 MG TAB PO ×3 (10:42→21:43)
[2024-04-29] MEDS: guaiFENesin 600 MG TABCR PO ×2 (12:05→20:10)
--- NOTE | 2024-04-29 12:54 | W.PM.PROGNOT ---
Date of Service Date of service: 04/29/24 Time of Service: 12:54 Assessment and Plan Assessment and plan (1) Acute respiratory failure with hypoxia: Status: Acute Assessment and plan: -initially presented with shortness of breath but stated preceding cough, nasal congestion, sputum production, body aches and headaches over the last few days -presumed secondary to acute viral upper respiratory illness -wean O2 as tolerated - procal negative, no antibiotics indicated at this time -viral resp panel negative. continue prn symptom management (2) Type 2 diabetes mellitus with peripheral neuropathy: Status: Acute Assessment and plan: -continue home lantus -hold home metformin and weekly dulaglutide -SSI, heart healthy carb diet (3) CHF (congestive heart failure): Status: Chronic Assessment and plan: -without acute exacerbation -continue home lasix, statin and spironolactone echo pending for Tuesday discussed with Dr Pillai Qualifiers: Heart failure chronicity: chronic Heart failure type: diastolic Qualified Code(s): I50.32 - Chronic diastolic (congestive) heart failure Subjective Subjective Patient reports: no new complaints, tolerating liquids well, tolerating a regular diet and afebrile; denies shortness of breath Exam Const General: cooperative, comfortable and no acute distress Nutritional Appearance: obese Orientation: alert, awake, oriented to person and oriented to place HENPA Head: normal to inspection and normocephalic Face and sinus: normal facial exam Mouth: oral mucosae normal Resp Effort & Inspection: normal respiratory effort, able to speak in complete sentences and not labored Auscultation: wheezes expiratory wheezes Cardio Rate: regular rate Rhythm: regular rhythm GI Inspection: obesity Palpation: soft Auscultation: normal bowel sounds Skin General skin exam: no rashes or lesions noted Neuro General: patient alert and patient awake Extrem General: edema Objective Last Vital Signs Temp 36.1 C L 04/29/24 10:52 Pulse 86 04/29/24 10:52 Resp 19 04/29/24 07:24 BP 162/73 H 04/29/24 10:52 Pulse Ox 98 04/29/24 10:52 Laboratory Results - last 24 hr 04/28/24 04/28/24 04/28/24 21:20 22:13 23:13 WBC 12.61 H RBC 4.95 Hgb 13.0 Hct 40.4 MCV 82 MCH 26.3 L MCHC 32.2 RDW 14.2 Plt Count 289 MPV 9.5 Immature Gran % 0.6 Neutrophils % 68.2 Lymphocytes % 20.5 Monocytes % 6.9 Eosinophils % 3.6 Basophils % 0.2 Nucleated RBC % 0.0 Absolute Neutrophils 8.60 H Absolute Lymphocytes 2.59 Absolute Monocytes 0.87 H Absolute Eosinophils 0.45 Absolute Basophils 0.03 D-Dimer Sodium Cancelled 137 Potassium Cancelled 4.3 Chloride Cancelled 96 L Carbon Dioxide Cancelled 31.6 Anion Gap Cancelled 9.4 BUN Cancelled 32 H Creatinine Cancelled 1.4 H Est GFR (CKD-EPI 2020) Cancelled 39.48 Glucose Cancelled 242 H Calcium Cancelled 9.4 Magnesium Cancelled 1.6 L Troponin I Cancelled 6 5 NT-Pro-B Natriuret Pep Cancelled 155 Procalcitonin < 0.10 COVID-19 Source Nasopharynx SARS-CoV-2 (PCR) Negative Influenza Type A (PCR) Negative Influenza Type B (PCR) Negative RSV (PCR) Negative 04/29/24 04/29/24 00:29 05:15 WBC 12.50 H RBC 4.72 Hgb 12.5 Hct 38.5 MCV 82 MCH 26.5 L MCHC 32.5 RDW 14.1 Plt Count 266 MPV 9.6 Immature Gran % Neutrophils % Lymphocytes % Monocytes % Eosinophils % Basophils % Nucleated RBC % Absolute Neutrophils Absolute Lymphocytes Absolute Monocytes Absolute Eosinophils Absolute Basophils D-Dimer 424 Sodium 138 Potassium 3.8 Chloride 98 Carbon Dioxide 29.9 Anion Gap 10.1 BUN 32 H Creatinine 1.3 H Est GFR (CKD-EPI 2020) 43.15 Glucose 249 H Calcium 9.3 Magnesium 1.7 L Troponin I Cancelled NT-Pro-B Natriuret Pep Procalcitonin COVID-19 Source SARS-CoV-2 (PCR) Influenza Type A (PCR) Influenza Type B (PCR) RSV (PCR) Time Spent with Patient Time Spent with Patient: 35-49 minutes Time was spent: preparing to see the patient(eg.review tests), obtaining and/or reviewing separately otained hiistory, ordering medications,tests, procedures, indepentently interpreting results and counseling the patient
[2024-04-29] MEDS: Benzonatate 200 MG CAP PO ×2 (14:00→20:10)
[2024-04-29] MEDS: Nystatin POWDER 15 GM JAR TP ×2 (14:00→21:43)
[2024-04-29] MEDS: Levothyroxine 150 MCG TAB PO (20:10)
[2024-04-29] MEDS: Atorvastatin 40 MG TAB PO (20:10)
[2024-04-29] MEDS: Insulin Glargine 300 UNITS/3 ML PEN 30 UNITS SC (20:11)
[2024-04-29] MEDS: Melatonin 3 MG TAB PO (21:43)
[2024-04-29] MEDS: Docusate Sodium 100 MG CAP PO (21:43)
[2024-04-30] VITALS (10 sets, daily range): BP systolic 112–133; BP diastolic 67–78; PULSE 77–88; RESP 5–20; TEMP 35.6–36.6; O2SAT 91–95
[2024-04-30] MEDS: Insulin Aspart 300 UNITS/3 ML PEN SC ×3 (08:14→16:55)
[2024-04-30] MEDS: Magnesium Gluconate 500 MG TAB PO ×2 (08:50→19:12)
[2024-04-30] MEDS: Benzonatate 200 MG CAP PO ×3 (08:50→19:12)
[2024-04-30] MEDS: guaiFENesin 600 MG TABCR PO ×2 (08:50→19:11)
[2024-04-30] MEDS: Spironolactone 50 MG TAB PO (08:51)
[2024-04-30] MEDS: Ferrous Sulfate 325 MG TAB PO (08:51)
[2024-04-30] MEDS: Pantoprazole 40 MG TABCR PO (08:51)
[2024-04-30] MEDS: predniSONE 20 MG TAB 40 MG PO (08:51)
[2024-04-30] MEDS: Furosemide 40 MG TAB PO ×2 (08:51→16:04)
[2024-04-30] MEDS: Enoxaparin 40 MG/0.4 ML SYR SC (08:52)
[2024-04-30] MEDS: Normal Saline Flush 10 ML SYR IVP ×2 (08:52→19:13)
[2024-04-30] MEDS: Acetaminophen 325 MG TAB PO ×2 (09:04→19:12)
[2024-04-30] MEDS: Insulin Glargine 300 UNITS/3 ML PEN 15 UNITS SC (09:10)
--- NOTE | 2024-04-30 09:12 | PDOC.CMPRO ---
Date of service: 04/30/24 Time of Service: 09:12 Care Management Progress Note Progress Note Text Progress Note Text: Nilam was sitting up in the bed when CM met with her today. She was pleasant, and easily engaged. She stated that she is not really feeling any better, and that today she even feels worse than yesterday. She is frustrated because no one knows what's wrong with her. CM mentioned that it seems she has a viral infection. There are no real tests to say it is a virus, and really nothing to treat it. We can treat the symptoms, but the rest takes time. While Nilam understood this, she was still frustrated and stated that she wants a new body. Later in the day Nilam got out of bed to the chair. She stated that that is just about all she does every day. Discharge Potential Discharge Needs: Other (f/u with the provider at the [facility].) Anticipated Barriers to Discharge: None Identified Patient/Family Education Needs: Review discharge instructions, discuss Ask Me Three Transportation: RCT RCT Transportation: Wheel chair van Plan: Anticipate Nilam will return to the [facility], where she resides. She will likely transport via RCT w/c van when ready. She will follow up with facility providers and her discharge plan of care. CM will continue to follow SDOH(Care Management) Screening Will the Patient Participate in the Screening?: Yes Do you worry about having a steady place to live?: no In the past 12 months, have you had to go without electric, gas, oil or water in your home?: no Have you or anyone in your house had to go without enough food to eat?: no Has lack of transportation kept you from medical appointments or from doing things needed for daily living?: no Has anyone in your support network made you feel unsafe for any reason?: no Health Related Social Needs Health related social needs details: From [facility]
--- NOTE | 2024-04-30 10:03 | W.PM.PROGNOT ---
Date of Service Date of service: 04/30/24 Time of Service: 10:03 Assessment and Plan Assessment and plan (1) Acute respiratory failure with hypoxia: Status: Acute Assessment and plan: -Presented to the emergency department with shortness of breath but stated preceding cough, nasal congestion, increased sputum production, body aches and headaches over the last few days -Mention change in sputum color from clear to yellowish -This is most likely secondary to acute viral upper respiratory illness as Pro-Rich was negative -Continue to wean O2 as tolerated - No antibiotics initially but in the setting of increased cough sputum production and variation in sputum color we will initiate doxycycline 100 mg oral every 12 As per pulmonary function test completed on 03/23/2024, despite no airflow limitation there was appearance of restrictive spirometry -with FEV1 improving by 14% with bronchodilator; this might have represented emphysema, early ILD or pulmonary vascular disease -viral resp panel was negative. Will continue prn symptom management: acapella, IS, PRN nebs -Physical therapy consult. (2) Type 2 diabetes mellitus with peripheral neuropathy: Status: Acute Assessment and plan: -Patient was initially on home dose of Lantus of 30 at at bedtime and 15 in AM?blood sugars between 340 and 400 with a total of 26 to 30 units of lispro given. We will increase the total dose of Lantus by 15 units and change the sliding scale insulin coverage to severe. This is most likely due to oral prednisone initiated on admission -Continue to monitor blood sugar trends and adjust insulin accordingly -Continue to hold home metformin and weekly dulaglutide -Continue heart healthy carb diet -BMP in a.m. (3) CHF (congestive heart failure): Status: Chronic Assessment and plan: -No signs and symptoms of acute exacerbation -Will continue home lasix, statin and spironolactone Last echo completed on 03/09/2024. Echo pending if patient shows signs of CHF exacerbation Discussed with Dr Pillai Qualifiers: Heart failure chronicity: chronic Heart failure type: diastolic Qualified Code(s): I50.32 - Chronic diastolic (congestive) heart failure Subjective Subjective Patient reports: tolerating liquids well, tolerating a regular diet, voiding w/o difficulty, no bowel movement (X5 days as per patient ), afebrile and other (Night sweats); denies diarrhea or shortness of breath Exam Narrative Exam Narrative: Constitutional The patient is lying in bed without acute distress and has an obese body habitus HENMT:Flushed VS rosecea on cheeks-Facial structures with normal appearance Neuro:alert and oriented to self, person, place time and situation. No neurological focal deficit Resp: Unlabored breathing, clear upper lungs bilaterally, diminished bases Cardio: regular rhythm, S1, S2, no murmur, bilateral radial and dorsalis pedis pulses are positive, palpable GI: Abdomen is large , not distended, soft and non tender, bowel sounds are present : Negative Costovertebral angle tenderness, no bladder distension Back/spine/Pelvis: No back tenderness, normal alignment Integumentary: No skin lesions or rash Extremities: strength 5/5 to bilateral upper extremities, weak LEs Psych: RASS 0, congruent mood and normal affect. Objective Last Vital Signs Temp 36.2 C L 04/30/24 07:15 Pulse 83 04/30/24 07:15 Resp 18 04/30/24 07:15 BP 116/74 04/30/24 07:15 Pulse Ox 95 04/30/24 07:52 Time Spent with Patient Time Spent with Patient: >50 minutes Time was spent: preparing to see the patient(eg.review tests), obtaining and/or reviewing separately otained hiistory, ordering medications,tests, procedures, referring, communicating with other health geriatric care manager, indepentently interpreting results, counseling the patient and care coordination
[2024-04-30] MEDS: MAGNESIUM SULFATE 2 GM/50 ML BAG IV_INF (10:38)
[2024-04-30] MEDS: Nystatin POWDER 15 GM JAR TP ×3 (10:59→19:13)
[2024-04-30] MEDS: Doxycycline Hyclate 100 MG CAP PO (16:04)
--- NOTE | 2024-04-30 16:55 | PHA.REVIEW2 ---
Pharmacy Admission Review Admission Clinical Review Admission Pharmacy Review: Viral upper respiratory illness (Acute) Acute respiratory failure with hypoxia (Acute) Exertional shortness of breath (Acute) Chronic cough (Acute) Type 2 diabetes mellitus with peripheral neuropathy (Acute) No Known Allergies Allergy (Verified 04/28/24 21:23) Resuscitation Status DNR/DNI Height 5 ft 6 in Weight 113.4 kg Pharmacy Admission Review Renal Dosing Renal Dosing: BUN 32 mg/dL (7-18) H 04/29/24 05:15 Creatinine 1.3 mg/dL (0.55-1.02) H 04/29/24 05:15 Medications needing adjustments: Reviewed (crcl = 48, current meds ok) Anticoagulation Anticoagulation: Hgb 12.5 g/dL (11.2-15.7) 04/29/24 05:15 Hct 38.5 % (36.0-46.0) 04/29/24 05:15 Plt Count 266 10^3/uL (130-400) 04/29/24 05:15 Creatinine 1.3 mg/dL (0.55-1.02) H 04/29/24 05:15 DVT Prophylaxis: Reviewed Medications: Enoxaparin (40 mg subq q24h) Therapeutic Anticoagulation: N/A Opiate Usage Evaluate Pain Scale/Pains Meds: Reviewed (not on opiates) Relevant Labs Relevant Labs: Sodium 138 mmol/L (136-145) 04/29/24 05:15 Potassium 3.8 mmol/L (3.5-5.1) 04/29/24 05:15 Chloride 98 mmol/L (98-107) 04/29/24 05:15 Magnesium 1.7 mg/dL (1.8-2.4) L 04/29/24 05:15 Electrolytes, C-Reactive P, ESR: Reviewed (2 g IV mag today) DM Control DM Control: Reviewed Insulin Dosing, Diabetic Medication: home meds Trulicity & metformin held, on insulin aspart SS with meals (protocol increased this afternoon) + lantus BID (20 units in AM, 40 units QHS - doses increased starting this evening) Cardiac Review Cardiac Review: Troponin I Cancelled 04/29/24 00:29 NT-Pro-B Natriuret Pep 155 pg/mL (<300) 04/28/24 22:13 BP, HR, EF%: Reviewed QTc Review QTc: Reviewed (QTc = 484 04/28/24 ) IV to PO Switch IV Medications: Reviewed Home Meds Home Med List reviewed: Reviewed Relevent Home Meds Not ordered & why?: metformin & trulicity held - on ss aspart + BID lantus Current Meds Current Medication Order Review: Reviewed Pharmacy Antibiotic Review Pharmacy Antibiotic Activity: Reviewed, no change Comments: procal (-), initially no abx, considered to likely be viral process. doxy 100 mg PO BID added today in setting of increased cough & sputum production
[2024-04-30] MEDS: Polyethylene Glycol 3350 17 GM PACKET PO (17:04)
[2024-04-30] MEDS: Docusate Sodium 100 MG CAP PO (17:04)
[2024-04-30 17:11] LABS: Glucose 424 mg/dL (74-106)
[2024-04-30] MEDS: Levothyroxine 150 MCG TAB PO (19:11)
[2024-04-30] MEDS: Atorvastatin 40 MG TAB PO (19:12)
[2024-04-30] MEDS: traZODone 50 MG TAB PO (19:12)
[2024-04-30] MEDS: Insulin Glargine 300 UNITS/3 ML PEN 40 UNITS SC (21:19)
[2024-04-30] MEDS: Albuterol/Ipratropium 3 ML UPD VIAL UPD (23:26)
[2024-05-01] MEDS: Acetaminophen 325 MG TAB PO ×2 (02:53→06:27)
[2024-05-01] MEDS: Doxycycline Hyclate 100 MG CAP PO ×2 (02:54→18:29)
[2024-05-01 03:13] VITALS: BP 111/76; PULSE 60; RESP 19; TEMP 35.6; O2SAT 91
[2024-05-01 06:28] LABS: Abs Immature Grans 0.06 10^3/uL (0.0-0.06); Absolute Basophil Count 0.01 10^3/uL (0.0-0.2); Absolute Eosinophil Count 0.04 10^3/uL (0.0-0.7); Absolute Lymphocyte Count 2.29 10^3/uL (1.2-3.4); Absolute Monocyte Count 0.82 10^3/uL (0.1-0.8); Absolute Neutrophil Count 8.79 10^3/uL (1.2-6.7); Basophils % 0.1 %; Eosinophils % 0.3 %; HCT 37.3 % (36.0-46.0); HGB 12.8 g/dL (11.2-15.7); Immature Grans % 0.5 %; Lymphocytes % 19.1 %; MCH 26.9 pg (27.0-33.0); MCHC 34.3 % (32.0-36.0); MCV 78 fL (80-95); MPV 9.8 fL (8.0-11.0); Monocytes % 6.8 %; Neutrophils % 73.2 %; Platelet Count 302 10^3/uL (130-400); RBC 4.76 10^6/uL (3.93-5.22); RDW 13.7 % (11.7-14.6); WBC 12.01 10^3/uL (4.4-10.8)
[2024-05-01 06:46] LABS: Anion Gap 11.2 mmol/L (3-11); BUN 43 mg/dL (7-18); CO2 28.8 mmol/L (21.0-32.0); CREATININE 1.4 mg/dL (0.55-1.02); Calcium 9.6 mg/dL (8.5-10.1); Chloride 92 mmol/L (98-107); Estimated GFR 39.48 (mL/min/1.73m2); Glucose 377 mg/dL (74-106); Magnesium 2.2 mg/dL (1.8-2.4); Potassium 3.8 mmol/L (3.5-5.1); Sodium 132 mmol/L (136-145)
[2024-05-01 07:30] VITALS: BP 117/77; PULSE 89; RESP 16; TEMP 36.7; O2SAT 96
[2024-05-01] MEDS: Enoxaparin 40 MG/0.4 ML SYR SC (07:47)
[2024-05-01] MEDS: Benzonatate 200 MG CAP PO ×3 (07:48→20:05)
[2024-05-01] MEDS: Magnesium Gluconate 500 MG TAB PO ×2 (07:48→20:06)
[2024-05-01] MEDS: guaiFENesin 600 MG TABCR PO ×2 (07:48→20:04)
[2024-05-01] MEDS: Pantoprazole 40 MG TABCR PO (07:49)
[2024-05-01] MEDS: Furosemide 40 MG TAB PO (07:49)
[2024-05-01] MEDS: Docusate Sodium 100 MG CAP PO ×3 (07:49→20:05)
[2024-05-01] MEDS: Ferrous Sulfate 325 MG TAB PO (07:49)
[2024-05-01] MEDS: Insulin Aspart 300 UNITS/3 ML PEN SC ×4 (07:55→18:30)
[2024-05-01] MEDS: Insulin Glargine 300 UNITS/3 ML PEN 20 UNITS SC (08:04)
--- NOTE | 2024-05-01 08:21 | IN_ITS ---
PT Notes Visit Reasons: Acute hypoxic respiratory failure Physical Therapy Inpatient Initial Evaluation Date: 05/01/2024 Referring Doctor: Roseanne Kamara NP PT Orders: PT CONSULT: Eval for Assistive Device Precautions: Fall. Standard. Activity as tolerated. Patient Profile/Admitting Diagnosis: Nilam is a 73-year-old female with past medical history significant for CVA admitted for management of acute respiratory failure with hypoxia, viral URI, chroninc cough, type II DM, and CHF. PMHX: All Active Problems (Updated 04/28/24 @ 23:40 by James Reed MD) Viral upper respiratory illness (Acute) Acute respiratory failure with hypoxia (Acute) Exertional shortness of breath (Acute) Chronic cough (Acute) Personal history of Methicillin resistant Staphylococcus aureus infection (Acute) Dysphagia (Acute) Extended spectrum beta lactamase (ESBL) resistance (Acute) Hypo-osmolar hyponatremia (Acute) Type 2 diabetes mellitus with foot ulcer (Acute) Radiculopathy, lumbar region (Acute) Pleural effusion, not elsewhere classified (Acute) Acute on chronic combined systolic (congestive) and diastolic (congestive) heart failure (Acute) Hemiplegia of left 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 (Acute) Nail dystrophy (Acute) Onychomycosis (Acute) Edema (Acute) Type 2 diabetes mellitus with peripheral neuropathy (Acute) Paresthesias (Acute) Anemia in chronic illness (Acute) Transaminitis (Acute) Obesity (Chronic) Unstageable pressure ulcer of right heel (Acute) Poorly controlled type 2 diabetes mellitus with peripheral neuropathy (Acute) Low serum iron (Acute) Lumbar back pain with radiculopathy affecting right lower extremity (Acute) Ambulatory dysfunction (Acute) Weakness (Acute) Medical History Cholecystitis Constipation Hypothyroid Gram-negative bacteremia Pleural effusion, left Hyperglycemia due to type 2 diabetes mellitus Palliative care patient Physician orders for life-sustaining treatment (POLST) form indicates patient wish for [id number] status ACP (advance care planning) Urinary tract infection Stroke Diabetes CHF (congestive heart failure) 2020, pt. denies any deficits now Surgical History S/P cholecystectomy History of ERCP S/P tonsillectomy Social History/Home Situation: Lived in a SNF in [place] since April to August of this year. Now resident of the [facility] since most recent discharge from this hospital. Equipment Owned/DME: Used wheelchair for long distances in previous SNF; ambulatory with assist for in-room ambulation using FWW Subjective: Complained of pain in R abdominal area when she attempted to sit up and stand up. Reported fatigue but was willing to try her best to mobilize. Objective: General Observation: Resting in bed. Love catheter in place. High BMI. B LE swelling noted. Mental Status: Alert and oriented as to person, place, time, and purpose. Able to pay attention, focus, and respond appropriately. Pain: As above Vital Signs: Closely monitored by nursing staff ROM: Right Upper Extremity: Shoulder Flexion WFL. Shoulder abduction WFL. Elbow flexion WFL. Wrist flexion WFL. Functional opening and closing of hand WFL. Left Upper Extremity: Shoulder Flexion WFL. Shoulder abduction WFL. Elbow flexion WFL. Wrist flexion WFL. Functional opening and closing of hand WFL. Right Lower Extremity: Hip flexion WFL. Hip abduction WFL. Knee flexion WFL. Ankle dorsiflexion to neutral only. Ankle plantarflexion WFL. Left Lower Extremity: Hip flexion only allows 25% of AROM. Hip abduction WFL. Knee flexion 30 degrees to 60 degrees. Kne extension -30 degrees. Ankle dorsiflexion to neutral only. Ankle plantarflexion WFL. Strength: Right Upper Extremity: Shoulder flexors 4/5. Shoulder abductors 4/5. Elbow flexors 4/5. Elbow extensors 4/5. Carpenters Supervisor strong. Left Upper Extremity: Shoulder flexors 4-/5. Shoulder abductors 4-/5. Elbow flexors 4-/5. Elbow extensors 4-/5. Carpenters Supervisor weaker than R but functional. Right Lower Extremity: Hip flexors 3/5. Hip abductors 4-/5. Knee flexors 4/5. Knee extensors 4-/5. Ankle dorsiflexors 3-/5. Ankle plantarflexors 4-/5. Left Lower Extremity: Hip flexors 3-/5. Hip abductors 3-/5. Knee flexors 3-/5. Knee extensors 3-/5. Ankle dorsiflexors 3-/5. Ankle plantarflexors 3-/5. Bed Mobility/Transfers: Minimal cueing provided for use of B hands as needed for support, movement sequence, AD management, and posture to reduce fall risk and minimize pain report Supine to sit with minimal assist, HOB at 45 degrees, Scoot forward to edge of bed minimla assist Sit to stand with minimal assist Stand to sit with contact guard assist Gait: Facilitated safe and correct performance of level surface ambulation covering a distance of 75 feet _+ 75 feet using front-wheeled walker with contact guard assist and wheelchair follow requiring minimal verbal cueing for limb advancement, AD management, and posture to reduce fall risk and minimize pain report. Asymmetric step height and length but no LOB. Moderate shortness of breath resolved with rest. Standardized Measure [facility] AM-PAC 6 clicks Basic Mobility Inpatient Short Form: Raw Score: 18 CMS Score: 47% deficit Informed Consent/Education: Patient was instructed in purpose of PT consult and plan of care. Agreeable to proceed with established PT POC to achieve personal goals. Assessment: Patient presents with clinical signs and symptoms consistent with current/admitting diagnoses that have resulted to mobility limitations, gait instability, generalized weakness, and overall ADL decline as demonstrated by the following impairment level findings: 1. Decreased strength to B UE/LE major muscle groups 2. Impaired standing balance 3. Impaired activity tolerance 4. Shortness of breath 5. Swelling in B LE Impairments are contributing to the following functional limitations: 1. Decline in bed mobility skills 2. Decline in transfer skills 3. Difficulty with ambulation without assistive device and physical assistance 4. Increased completion time for mobility ADL performance 5. Increased risk for falls 6. Increased risk for skin breakdown Patient is assessed as a 89110 moderate complexity based on the following: History: 73-year-old female with past medical history as indicated above Examination: Demonstrable impairment in strength, balance, and mobility level with underlying impairments and functional limitations as exhibited above as well as deficit score of 47% utilizing the [facility] Mobility Inpatient Short Form Presentation: Evolving Decision Makin moderate complexity Goals: Goals X1 week 1. Supine-Sit independent 2. Sit-Supine independent 3. Sit-Stand independent 4. Stand-Sit independent with FWW 5. Bed-Chair independent with FWW 6. Chair-Bed independent with FWW 7. Independent gait on level surface with use of FWW for at least 200 feet without report of pain nor dyspnea 8. Independent stair negotiation while holding onto B rails for at least 5 steps without report of pain nor dyspnea 9. Independent with home exercise program 10. Good static and dynamic standing balance/tolerance Plan of Care/Treatment Plan: 1-2x/day, 7 days/week x 1 week. Plan of care has been reviewed with the HOSPITAL LIBRARIAN providing the service under Physical Therapy direction. Initiate Physical Therapy intervention for pain management as needed, strengthening, bed mobility, transfers, gait, stairs, balance training, and use of assistive device. DISCHARGE RECOMMENDATIONS: [] Home with no services [] [] Home with services [] Home with outpatient PT [] [] SNF for continued rehabilitation [] [] [facility] [] [] SNF versus LTC based on ability to participate and progress [] [X] Return to SNF and rsume PT services for functional mobility training/progression TREATMENT CODE/TIME: 34403 x 20 minutes for 1 unit, 58976 x 15 minutes for 1 unit (08:21-08:56). Thank you for the opportunity to participate in the care of this patient. Bridget Andersen PT, DPT, CLT [facility] [place], [place]
--- NOTE | 2024-05-01 10:10 | W.PM.DS.N ---
Date of service: 05/03/24 Time of Service: 10:00 DS: Diagnosis Discharge Diagnosis (1) Acute respiratory failure with hypoxia: Status: Acute (2) Type 2 diabetes mellitus with peripheral neuropathy: Status: Acute (3) CHF (congestive heart failure): Status: Chronic Discharge Plan Disposition Patient Disposition[facility] Condition: Improving Discharge Details Reason For Visit: Acute hypoxic respiratory failure Admit Date/Time: 04/28/24 23:37 Admit Provider: James Reed Attending Provider: James Reed Primary Care Provider: Angelika Berumen Hospital Course Hospital Course: This 73-year-old female patient, living at the [facility], with a past medical history of poorly controlled insulin-dependent diabetes mellitus, CVA, congestive heart failure with left aVF of 55%, morbid obesity, and hypertension presented to the emergency department at [facility] on 03/28/2024 for evaluation of shortness of breath. Patient reported symptom of congestion with sore throat and productive sputum associated with body ache and headache; no report of fevers, lightheadedness, dizziness, chest pain, nausea, vomiting, diarrhea or dysuria at the time of presentation . The patient had normal vital signs with the exception of very of hypoxia with sats at 90% on room air responding to oxygen therapy of 2 L of oxygen via nasal cannula with saturation improving to greater than 92%. Workup in the ED was significant for findings of pulmonary edema as per chest x-ray. CBC was positive for mild leukocytosis, viral respiratory panel and procalcitonin were also negative. The hospitalist was consulted and the patient was admitted for evaluation and management resumption of acute viral upper respiratory illness resulting in acute hypoxic respiratory failure. During the stay the patient described increased cough with yellow production of sputum. The patient was seen and pulmonology was no diagnosed with conventional COPD with both chronic bronchitis and emphysema, but as per report the patient had emphysema versus early interstitial lung disease or pulmonary vascular disease, restrictive disease as per serum spirometry with FEV1 improving by 14% with bronchodilators. The patient was treated with short course of doxycycline and prednisone. The patient demonstrated clinical improvement. Insulin-dependent diabetes mellitus was controlled with bolus of basal insulin as well as sliding scale insulin at meals and bedtime which had to be adjusted due to hyperglycemic response to the prednisone. The patient will be discharged on a home regimen of insulin with further adjustment to be decided per the practitioner at the detention. Regular IV fluid was also administered due to increased BUN on admission and a creatinine clearance which was borderline in the setting of the administration of metformin which was held on admission.Today Cr is down to 1.1 with a BUN of 31 and a GFR of 52.73. Trulicity was given on . The patient will be discharged to the [facility] with 1 more dose of doxycycline to be given tonight and resumption of her regular medicines. Discussed with Dr. Goins Chrisman Meds and New Rx's Prescriptions: New doxycycline hyclate 100 mg Capsule 100 mg PO Q12H Qty: 1 0RF Continued ketoconazole 2 % cream 1 applic topical DAILY Qty: 120 6RF Rx Instructions: Apply to toenails once daily urea 40 % cream 1 applic topical .QD Qty: 28 3RF Trulicity 0.75 mg/0.5 mL pen injector 0.75 mg subcut QWEEK Patient Comments: on wednesdays per [facility] melatonin 3 mg tablet 3 mg PO HS PRN Cosentyx UnoReady Pen 300 mg/2 mL (150 mg/mL) pen injector 300 mg subcut QWEEK magnesium gluconate [Mag-G] 27 mg magnesium (500 mg) tablet 27 mg PO BID benzonatate 100 mg capsule 100 mg PO TID dextromethorphan-guaifenesin [Guaiasorb DM] 10-100 mg/5 mL liquid 10 ml PO Q4H PRN ipratropium bromide 21 mcg (0.03 %) spray,non-aerosol 2 spray intranasal BID-TID PRN (Reason: allergy symptoms) Qty: 30 2RF Rx Instructions: administer into each nostril cholecalciferol (vitamin D3) 1,250 mcg (50,000 unit) capsule 1,250 mcg PO QWEEK atorvastatin 40 mg tablet 40 mg PO HS trazodone 50 mg tablet 50 mg PO QHS acetaminophen 500 mg Tablet 1,000 mg PO TID MDD 3000 mg Qty: 60 0RF docusate sodium [Colace] 100 mg Capsule 100 mg PO DAILY Qty: 30 0RF ferrous sulfate 325 mg (65 mg iron) Tablet 325 mg PO DAILY Qty: 30 0RF pantoprazole 40 mg Tablet,Delayed Release (Dr/Ec) 40 mg PO DAILY@0730 Qty: 10 0RF metformin 500 mg tablet 500 mg PO BIDWMEAL Qty: 60 0RF (DME) lancets [FreeStyle Lancets] 28 gauge misc See Rx Instructions .Route Qty: 100 0RF Rx Instructions: As directed (DME) blood-glucose meter [FreeStyle Lite Meter] Kit See Rx Instructions .Route Qty: 1 0RF Rx Instructions: As directed (DME) FreeStyle Lite Strips Strip See Rx Instructions .Route Qty: 100 0RF Rx Instructions: As directed spironolactone 50 mg tablet 50 mg PO DAILY levothyroxine 150 mcg tablet 150 mcg PO HS insulin glargine [Lantus Solostar U-100 Insulin] 100 unit/mL (3 mL) Insulin Pen 15 unit subcut QAM Qty: 15 0RF furosemide 40 mg Tablet 40 mg PO BID@0830,1600 Qty: 60 0RF insulin aspart U-100 100 unit/mL (3 mL) insulin pen 1 sliding scale dose SUBCUT TID Rx Instructions: see sliding scale polyethylene glycol 3350 [ClearLax] 17 gram/dose powder 17 g PO DAILY nystatin [Nyamyc] 100,000 unit/gram powder 1 applic TOPICAL DAILY mupirocin 2 % ointment 1 applic TOPICAL BID insulin glargine [Lantus Solostar U-100 Insulin] 100 unit/mL (3 mL) Insulin Pen 30 unit subcut HS calcium carbonate [Calcium 500] 500 mg calcium (1,250 mg) tablet,chewable 1,000 mg PO ONCE PRN Rx Instructions: 2 tabs Q3H Discharge Instructions Activity:: Activity as Tolerated Equipment/Supplies:: Walker Diet:: heart healthy diabetic Discharge Orders Discharge Orders: Discharge Order (Routine); Ordered 05/03/24 Ordered By: Roseanne Kamara DS: Summary Time Spent with Patient providing and/or coordinating discharge services: Greater than 30 minutes Status at Discharge Functional status at discharge: uses cane/walker Overall status at discharge: patient is progressing back to baseline Mental Status: mental status grossly normal Speech and Movement: speech and movement normal Mood: congruent mood Affect: normal affect Quality:SDOH Health Related Social Needs: Health related social needs details From [facility] Health related social needs details: From [facility] Exam Narrative Exam Narrative: Constitutional The patient is sitting in chair without acute distress and has an obese body habitus HENMT:Facial structures with normal appearance Neuro:alert and oriented x3 -nonfocal Resp: Unlabored breathing, lungs are clear to auscultation Cardio: regular rhythm, S1, S2, positive radial and pedal pulses GI: Abdomen is large , not distended, soft and non tender, bowel sounds are present Integumentary: No skin lesions or rash on exposed skin Psych: RASS 0, congruent mood and normal affect. Psych Mental Status: mental status grossly normal Speech and Movement: speech and movement normal Mood: congruent mood Affect: normal affect DS: Data Vitals/I&O Vitals and I&O: Vital Signs Temperature 36.7 C 05/01/24 07:30 Temperature Source Temporal Artery Scan 05/01/24 07:30 Pulse 89 05/01/24 07:30 Pulse Rhythm Regular 04/29/24 00:48 Respiratory Rate 16 05/01/24 07:30 Respiratory Effort Short of Breath 04/29/24 00:48 Respiratory Depth Normal 04/29/24 00:48 Respiratory Pattern Normal 04/29/24 00:48 Blood Pressure 117/77 05/01/24 07:30 Blood Pressure Position Sitting 04/28/24 21:14 Pulse Oximetry 96 05/01/24 07:30 Oxygen Delivery Method Room Air 05/01/24 07:30 Oxygen Flow Rate 0 05/01/24 07:30 Pain Level 4 05/01/24 06:27 Comment RN notified 04/30/24 15:02 Intake & Output 04/30/24 04/30/24 05/01/24 11:59 23:59 11:59 Intake Total 20 / 240 220 / 240 360 / 360 Output Total 175 / 1475 1300 / 1475 600 / 600 Balance -155 / -1235 -1080 / -1235 -240 / -240 Intake: IV 20 / 120 100 / 120 Oral 120 / 120 360 / 360 Output: Urine 175 / 1475 1300 / 1475 600 / 600 Other: Urine Color Yellow Yellow Yellow Urine Appearance Cloudy Clear Urine Odor Normal Comment brief dry brief changed 0- am care- dry at this time Data Completed and Pending Labs on day of discharge: Labs from last 24 hours 05/01/24 04/30/24 05:53 16:45 WBC 12.01 H RBC 4.76 Hgb 12.8 Hct 37.3 MCV 78 L D MCH 26.9 L MCHC 34.3 RDW 13.7 Plt Count 302 MPV 9.8 Immature Gran % 0.5 Neutrophils % 73.2 Lymphocytes % 19.1 Monocytes % 6.8 Eosinophils % 0.3 Basophils % 0.1 Nucleated RBC % 0.0 Absolute Neutrophils 8.79 H Absolute Lymphocytes 2.29 Absolute Monocytes 0.82 H Absolute Eosinophils 0.04 Absolute Basophils 0.01 Sodium 132 L Potassium 3.8 Chloride 92 L Carbon Dioxide 28.8 Anion Gap 11.2 H BUN 43 H Creatinine 1.4 H Est GFR (CKD-EPI 2020) 39.48 Glucose 377 H 424 H Calcium 9.6 Magnesium 2.2 PFSH All Active Problems (Updated 05/02/24 @ 09:26 by Roseanne Kamara APRN) Discharge planning issues (Acute) CHF (congestive heart failure) (Chronic) 2020, pt. denies any deficits now Viral upper respiratory illness (Acute) Acute respiratory failure with hypoxia (Acute) Exertional shortness of breath (Acute) Chronic cough (Acute) Personal history of Methicillin resistant Staphylococcus aureus infection (Acute) Dysphagia (Acute) Extended spectrum beta lactamase (ESBL) resistance (Acute) Hypo-osmolar hyponatremia (Acute) Type 2 diabetes mellitus with foot ulcer (Acute) Radiculopathy, lumbar region (Acute) Pleural effusion, not elsewhere classified (Acute) Acute on chronic combined systolic (congestive) and diastolic (congestive) heart failure (Acute) Hemiplegia of left 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 (Acute) Nail dystrophy (Acute) Onychomycosis (Acute) Edema (Acute) Type 2 diabetes mellitus with peripheral neuropathy (Acute) Paresthesias (Acute) Anemia in chronic illness (Acute) Transaminitis (Acute) Obesity (Chronic) Unstageable pressure ulcer of right heel (Acute) Poorly controlled type 2 diabetes mellitus with peripheral neuropathy (Acute) Low serum iron (Acute) Lumbar back pain with radiculopathy affecting right lower extremity (Acute) Ambulatory dysfunction (Acute) Weakness (Acute) Medical History Cholecystitis Constipation Hypothyroid Gram-negative bacteremia Pleural effusion, left Hyperglycemia due to type 2 diabetes mellitus Palliative care patient Physician orders for life-sustaining treatment (POLST) form indicates patient wish for [id number] status ACP (advance care planning) Urinary tract infection Stroke Diabetes CHF (congestive heart failure) 2020, pt. denies any deficits now Surgical History S/P cholecystectomy History of ERCP S/P tonsillectomy Family History (Updated 03/01/24 @ 10:33 by Una Alexander) Mother Cancer Social History Smoking/Tobacco Use Status: Never Smoking risk assessment performed?: Yes Alcohol Intake: never Drug use: Never Substance use type: does not use Housing: detention What is your relationship status?: Panel score (0-1 are the most socially isolated patients): 0 Do you feel safe at home: Yes Do you feel safe in your relationship?: Yes Additional Social history: PT [facility]IDES AT [facility] Time Spent with Patient Time Spent with Patient: 70-84 minutes4 Time was spent: preparing to see the patient(eg.review tests), obtaining and/or reviewing separately otained hiistory, ordering medications,tests, procedures, referring, communicating with other health critical care nurse practitioner, indepentently interpreting results, counseling the patient and care coordination
--- NOTE | 2024-05-01 10:12 | PGE_ITS ---
Date of Service Date of service: 05/01/24 Time of Service: 10:12 Assessment and Plan Assessment and plan (1) Acute respiratory failure with hypoxia: Status: Acute Assessment and plan: -Initial presentation withshortness of breath but stated preceding cough, nasal congestion, increased sputum production, body aches and headaches over the last few days -Mentioned change in sputum color from clear to yellowish on 04/30/2024 -This is most likely secondary to acute viral upper respiratory illness as Pro- Rich was negative -Continue to wean O2 as tolerated?now on room air -Continue doxycycline: No antibiotics initially but in the setting of increased cough sputum production and variation in sputum color we will initiate doxycycline 100 mg oral every 12 As per pulmonary function test completed on 03/23/2024, despite no airflow limitation there was appearance of restrictive spirometry -with FEV1 improving by 14% with bronchodilator; this might have represented emphysema, early ILD or pulmonary vascular disease -viral resp panel was negative. Continue prn symptom management: acapella, IS, PRN nebs -Physical therapy consult. (2) Type 2 diabetes mellitus with peripheral neuropathy: Status: Acute Assessment and plan: -Patient was initially on home dose of Lantus of 30 at at bedtime and 15 in AM?blood sugars between 340 and 400 with a total of 26 to 30 units of lispro given. Will increase the total dose of Lantus by 20 units and change the sliding scale insulin coverage to moderate with bolus of 5 units lispro AC . This is most likely due to oral prednisone initiated on admission, and holding the metformin. -Readjust insulin to prior home dosing when prednisone course is completed -Will Continue to monitor blood sugar trends and adjust insulin accordingly -Continue to hold home metformin and start weekly dulaglutide on 05/02 -Continue heart healthy carb diet -BMP in a.m. (3) CHF (congestive heart failure): Status: Chronic Assessment and plan: -No signs and symptoms of acute exacerbation -Continue home dose statin - holding Lasix, spironolactone on 05/02 if Last echo completed on 03/09/2024. Echo pending if patient shows signs of CHF exacerbation- not needed at this time Discussed with Dr Pillai Qualifiers: Heart failure chronicity: chronic Heart failure type: diastolic Qualified Code(s): I50.32 - Chronic diastolic (congestive) heart failure Subjective Subjective Patient reports: feels better, tolerating liquids well, tolerating a regular diet, no bowel movement and afebrile; denies diarrhea, nausea, vomiting or shortness of breath Exam Narrative Exam Narrative: Constitutional The patient sitting in chair without acute distress and has an obese body habitus HENMT:Facial structures with normal appearance Neuro:alert and oriented x4 - No neurological focal deficit Resp: Unlabored breathing, clear upper lungs bilaterally, diminished bases Cardio: regular rhythm, S1, S2, positive radial and pedal pulses GI: Abdomen is large , not distended, soft and non tender, bowel sounds are pr esent Integumentary: No skin lesions or rash on exposed skin Psych: RASS 0, congruent mood and normal affect. Objective Last Vital Signs Temp 36.7 C 05/01/24 07:30 Pulse 89 05/01/24 07:30 Resp 16 05/01/24 07:30 BP 117/77 05/01/24 07:30 Pulse Ox 96 05/01/24 07:30 Laboratory Results - last 24 hr 04/30/24 05/01/24 16:45 05:53 WBC 12.01 H RBC 4.76 Hgb 12.8 Hct 37.3 MCV 78 L D MCH 26.9 L MCHC 34.3 RDW 13.7 Plt Count 302 MPV 9.8 Immature Gran % 0.5 Neutrophils % 73.2 Lymphocytes % 19.1 Monocytes % 6.8 Eosinophils % 0.3 Basophils % 0.1 Nucleated RBC % 0.0 Absolute Neutrophils 8.79 H Absolute Lymphocytes 2.29 Absolute Monocytes 0.82 H Absolute Eosinophils 0.04 Absolute Basophils 0.01 Sodium 132 L Potassium 3.8 Chloride 92 L Carbon Dioxide 28.8 Anion Gap 11.2 H BUN 43 H Creatinine 1.4 H Est GFR (CKD-EPI 2020) 39.48 Glucose 424 H 377 H Calcium 9.6 Magnesium 2.2 Time Spent with Patient Time Spent with Patient: >50 minutes Time was spent: preparing to see the patient(eg.review tests), obtaining and/or reviewing separately otained hiistory, ordering medications,tests, procedures, referring, communicating with other health insurance healthcare consultant, indepentently interpreting results, counseling the patient and care coordination
[2024-05-01] MEDS: Spironolactone 50 MG TAB PO (10:57)
[2024-05-01] MEDS: Polyethylene Glycol 3350 17 GM PACKET PO ×2 (10:57→20:03)
[2024-05-01] MEDS: predniSONE 20 MG TAB 40 MG PO (10:57)
[2024-05-01 11:02] VITALS: BP 112/82; PULSE 85; RESP 16; TEMP 36.3; O2SAT 95
[2024-05-01] MEDS: Nystatin POWDER 15 GM JAR TP ×2 (11:02→20:04)
[2024-05-01] MEDS: Acetaminophen 500 MG TAB 1000 MG PO ×2 (14:55→20:04)
--- NOTE | 2024-05-01 15:02 | PT.INTREAT ---
PT Notes Visit Reasons: Acute hypoxic respiratory failure Physical Therapy Inpatient Treatment Note Date: 05/01/2024 Precautions: Fall. Standard. Activity as tolerated. Subjective: Fatigued but agreeable to walking for both sessions. Objective: General Observation: Resting in bed. High BMI. B LE swelling noted. Mental Status: Alert and oriented as to person, place, time, and purpose. Able to pay attention, focus, and respond appropriately. Pain: None reported Vital Signs: Closely monitored by nursing staff Bed Mobility/Transfers: Minimal cueing provided for use of B hands as needed for support, movement sequence, AD management, and posture to reduce fall risk and minimize pain report Supine to sit with minimal assist, HOB at 45 degrees, Scoot forward to edge of bed minimal assist Sit to stand with minimal assist Stand to sit with contact guard assist Gait: Facilitated safe and correct performance of level surface ambulation covering a distance of 75 feet + 75 feet using front-wheeled walker with contact guard assist and wheelchair follow requiring minimal verbal cueing for limb advancement, AD management, and posture to reduce fall risk and minimize pain report. In the afternoon, patient covered 50 feet + 50 feet. Asymmetric step height and length but no LOB. Moderate shortness of breath resolved with rest. Assessment: Continues to require assistance of 1 person for all mobility ADL performance. Patient presents with clinical signs and symptoms consistent with current/admitting diagnoses that have resulted to mobility limitations, gait instability, generalized weakness, and overall ADL decline as demonstrated by the following impairment level findings: 1. Decreased strength to B UE/LE major muscle groups 2. Impaired standing balance 3. Impaired activity tolerance 4. Shortness of breath 5. Swelling in B LE Impairments are contributing to the following functional limitations: 1. Decline in bed mobility skills 2. Decline in transfer skills 3. Difficulty with ambulation without assistive device and physical assistance 4. Increased completion time for mobility ADL performance 5. Increased risk for falls 6. Increased risk for skin breakdown Plan of Care/Treatment Plan: 1-2x/day, 7 days/week x 1 week. Plan of care has been reviewed with the TOE STAPLER providing the service under Physical Therapy direction. Initiate Physical Therapy intervention for pain management as needed, strengthening, bed mobility, transfers, gait, stairs, balance training, and use of assistive device. DISCHARGE RECOMMENDATIONS: [] Home with no services [] [] Home with services [] Home with outpatient PT [] [] SNF for continued rehabilitation [] [] [facility] [] [] SNF versus LTC based on ability to participate and progress [] [X] Return to SNF and resume PT services for functional mobility training/progression TREATMENT CODE/TIME: 11526 x 30 minutes for 2 units (15:02-15:32).
[2024-05-01 15:28] VITALS: BP 114/73; PULSE 88; RESP 18; TEMP 36.2; O2SAT 92
--- NOTE | 2024-05-01 15:35 | CHAPLAIN ---
Nilam and I remembered each other from a previous admission. Nilam said she is tired, didn't sleep well last night, and doesn't feel well. She lives at the [facility], and said she likes it there, okay. Nilam is originally from [place]. She has a daughter and son in law who live in the area. Nilam said she is doesn't like to let people down, like when she needs to come here. I will continue to visit.
--- NOTE | 2024-05-01 15:56 | PDOC.CMPRO ---
Date of service: 05/01/24 Time of Service: 15:56 Care Management Progress Note Progress Note Text Progress Note Text: Nilam was sitting up in the chair when CM met with her earlier today. Her color looked good, and she looked bright. She stated that she is feeling better today than yesterday. She has been up to the chair twice today, and walked with PT. She stated that she didn't get very far today, and that the last time she was here she was able to walk the length of the unit. She stated that her provider is unsure if she will be discharged tomorrow or not. Discharge Potential Discharge Needs: Other (f/u with the provider at the [facility]) Anticipated Barriers to Discharge: None Identified Patient/Family Education Needs: Review discharge instructions, discuss Ask Me Three Transportation: RCT RCT Transportation: Wheel chair van Plan: Anticipate Nilam will return to the [facility], where she resides. She will likely transport via RCT w/c van when ready, as arranged by CM. She will follow up with facility providers and her discharge plan of care. CM will continue to follow SDOH(Care Management) Screening Will the Patient Participate in the Screening?: Yes Do you worry about having a steady place to live?: no In the past 12 months, have you had to go without electric, gas, oil or water in your home?: no Have you or anyone in your house had to go without enough food to eat?: no Has lack of transportation kept you from medical appointments or from doing things needed for daily living?: no Has anyone in your support network made you feel unsafe for any reason?: no Health Related Social Needs Health related social needs details: From [facility]
[2024-05-01] MEDS: ELECTROLYTE-R SOLUTION 1,000 ML 50 ML IV (18:50)
[2024-05-01 20:01] VITALS: BP 125/71; PULSE 93; RESP 18; TEMP 36.4; O2SAT 92
[2024-05-01] MEDS: Levothyroxine 150 MCG TAB PO (20:05)
[2024-05-01] MEDS: Atorvastatin 40 MG TAB PO (20:05)
[2024-05-01] MEDS: traZODone 50 MG TAB PO (20:05)
[2024-05-01] MEDS: Insulin Glargine 300 UNITS/3 ML PEN 50 UNITS SC (21:31)
[2024-05-01 22:41] VITALS: BP 134/86; PULSE 74; RESP 16; TEMP 36.1; O2SAT 96
[2024-05-02] VITALS (8 sets, daily range): BP systolic 103–119; BP diastolic 66–80; PULSE 58–82; RESP 3–20; TEMP 36.1–36.6; O2SAT 90–97
[2024-05-02] MEDS: Doxycycline Hyclate 100 MG CAP PO ×2 (05:33→17:03)
[2024-05-02 07:31] LABS: Abs Immature Grans 0.09 10^3/uL (0.0-0.06); Absolute Basophil Count 0.02 10^3/uL (0.0-0.2); Absolute Eosinophil Count 0.02 10^3/uL (0.0-0.7); Absolute Monocyte Count 0.78 10^3/uL (0.1-0.8); Basophils % 0.2 %; Eosinophils % 0.2 %; HCT 37.7 % (36.0-46.0); HGB 12.2 g/dL (11.2-15.7); Immature Grans % 0.8 %; MCH 26.2 pg (27.0-33.0); MCHC 32.4 % (32.0-36.0); MCV 81 fL (80-95); MPV 9.8 fL (8.0-11.0); Monocytes % 6.8 %; Platelet Count 307 10^3/uL (130-400); RBC 4.66 10^6/uL (3.93-5.22); RDW 13.7 % (11.7-14.6); RDW-SD 40.2 fL; WBC 11.42 10^3/uL (4.4-10.8)
[2024-05-02 07:40] LABS: Absolute Lymphocyte Count 2.06 10^3/uL (1.2-3.4); Absolute Neutrophil Count 8.45 10^3/uL (1.2-6.7)
[2024-05-02 07:52] LABS: Anion Gap 9.1 mmol/L (3-11); BUN 41 mg/dL (7-18); CO2 31.9 mmol/L (21.0-32.0); CREATININE 1.4 mg/dL (0.55-1.02); Calcium 9.4 mg/dL (8.5-10.1); Chloride 96 mmol/L (98-107); Estimated GFR 39.48 (mL/min/1.73m2); Glucose 327 mg/dL (74-106); Magnesium 2.3 mg/dL (1.8-2.4); Sodium 137 mmol/L (136-145)
[2024-05-02] MEDS: Insulin Aspart 300 UNITS/3 ML PEN SC ×6 (08:09→17:16)
[2024-05-02] MEDS: Enoxaparin 40 MG/0.4 ML SYR SC (08:11)
[2024-05-02] MEDS: Insulin Glargine 300 UNITS/3 ML PEN 30 UNITS SC (08:11)
[2024-05-02] MEDS: guaiFENesin 600 MG TABCR PO ×2 (08:12→20:53)
[2024-05-02] MEDS: predniSONE 20 MG TAB 40 MG PO (08:12)
[2024-05-02] MEDS: Docusate Sodium 100 MG CAP PO ×3 (08:12→20:53)
[2024-05-02] MEDS: Pantoprazole 40 MG TABCR PO (08:12)
[2024-05-02] MEDS: Magnesium Gluconate 500 MG TAB PO ×2 (08:12→20:53)
[2024-05-02] MEDS: Ferrous Sulfate 325 MG TAB PO (08:12)
[2024-05-02] MEDS: Acetaminophen 500 MG TAB 1000 MG PO ×3 (08:12→20:52)
[2024-05-02] MEDS: Benzonatate 200 MG CAP PO ×3 (08:12→20:52)
[2024-05-02] MEDS: Normal Saline Flush 10 ML SYR IVP ×2 (08:13→21:17)
[2024-05-02] MEDS: Polyethylene Glycol 3350 17 GM PACKET PO ×2 (08:15→20:50)
--- NOTE | 2024-05-02 09:23 | PGE_ITS ---
Date of Service Date of service: 05/02/24 Time of Service: 09:23 Assessment and Plan Assessment and plan (1) Acute respiratory failure with hypoxia: Status: Acute Assessment and plan: -On initial presentation reporting shortness of breath, nasal congestion now resolved, increased sputum production with cough, body aches and headaches over the last few days - Pro-Rich was negative -now on room air -Will continue doxycycline -No antibiotics initially but in the setting of increased cough sputum production and variation in sputum color antibiotic therapy was initiated -As per pulmonary function test completed on 03/23/2024, despite no airflow limitation there was appearance of restrictive spirometry -with FEV1 improving by 14% with bronchodilator; this might have represented emphysema, early ILD or pulmonary vascular disease -Negative viral respiratory panel Will continue prn symptom management: acapella, IS, PRN nebs -Ongoing physical therapy consult (2) Type 2 diabetes mellitus with peripheral neuropathy: Status: Acute Assessment and plan: Patient with history of uncontrolled diabetes mellitus type 2 -Will continue to adjust insulin bolus with Lantus -Resume metformin -Repeat BMP this afternoon due to borderline creatinine clearance and slight stable increase in creatinine -Will continue SSI coverage -Resume GLP-1 injection?long-term brought the patient medicine -Increase glycemia s most likely due to oral prednisone initiated on admission -Readjust insulin to prior home dosing when prednisone course is completed -Continue heart healthy carb diet -BMP in a.m. (3) CHF (congestive heart failure): Status: Chronic Assessment and plan: -No signs and symptoms of acute exacerbation -Continue home dose statin - holding Lasix, spironolactone on 05/02?will resume this afternoon versus in a.m. pending BMP results -Continue slow IVF Last echo completed on 03/09/2024. Echo pending if patient shows signs of CHF exacerbation- not needed at this time Qualifiers: Heart failure chronicity: chronic Heart failure type: diastolic Qualified Code(s): I50.32 - Chronic diastolic (congestive) heart failure (4) Discharge planning issues: Status: Acute Assessment and plan: Return to the [facility] when medically stable Return recommendation to resume regular antihyperglycemic medicines once prednisone course completed Discussed with Dr Pillai Subjective Subjective Patient reports: feels better, tolerating liquids well, tolerating a regular diet, flatus and other (Dry cough); denies no bowel movement, diarrhea, nausea, vomiting, shortness of breath or afebrile Exam Narrative Exam Narrative: Constitutional The patient in bed without acute distress and has an obese body habitus HENMT:Facial structures with normal appearance Neuro:alert and oriented x4 -nonfocal Resp: Unlabored breathing, rhonchi clearing with cough -no crackles Cardio: regular rhythm, S1, S2, positive radial and pedal pulses GI: Abdomen is large , not distended, soft and non tender, bowel sounds are present Integumentary: No skin lesions or rash on exposed skin Psych: RASS 0, congruent mood and normal affect. Objective Last Vital Signs Temp 36.1 C L 05/02/24 07:58 Pulse 74 05/02/24 07:58 Resp 20 05/02/24 07:58 BP 103/66 05/02/24 07:58 Pulse Ox 90 L 05/02/24 07:58 Laboratory Results - last 24 hr 05/02/24 06:35 WBC 11.42 H RBC 4.66 Hgb 12.2 Hct 37.7 MCV 81 MCH 26.2 L MCHC 32.4 RDW 13.7 Plt Count 307 MPV 9.8 Immature Gran % 0.8 Neutrophils % 74.0 Lymphocytes % 18.0 Monocytes % 6.8 Eosinophils % 0.2 Basophils % 0.2 Nucleated RBC % 0.0 Absolute Neutrophils 8.45 H Absolute Lymphocytes 2.06 Absolute Monocytes 0.78 Absolute Eosinophils 0.02 Absolute Basophils 0.02 Sodium 137 Potassium 4.0 Chloride 96 L Carbon Dioxide 31.9 Anion Gap 9.1 BUN 41 H Creatinine 1.4 H Est GFR (CKD-EPI 2020) 39.48 Glucose 327 H Calcium 9.4 Magnesium 2.3 Time Spent with Patient Time Spent with Patient: >50 minutes Time was spent: preparing to see the patient(eg.review tests), obtaining and/or reviewing separately otained hiistory, ordering medications,tests, procedures, referring, communicating with other health acute care clinical nurse specialist, indepentently interpreting results, counseling the patient and care coordination
[2024-05-02] MEDS: Nystatin POWDER 15 GM JAR TP ×3 (09:39→20:52)
[2024-05-02] MEDS: Albuterol/Ipratropium 3 ML UPD VIAL UPD (10:24)
[2024-05-02] MEDS: ELECTROLYTE-R SOLUTION 1,000 ML 50 ML IV (11:05)
--- NOTE | 2024-05-02 11:43 | PT.INTREAT ---
PT Notes Visit Reasons: Acute hypoxic respiratory failure Physical Therapy Inpatient Treatment Note Date: 05/02/2024 Precautions: Fall. Standard. Activity as tolerated. Subjective: Concerned about not having had a bowel movement for a week now. Nurse and MD aware and has been managing. Objective: General Observation: Resting on chair. High BMI. B LE swelling noted. Mental Status: Alert and oriented as to person, place, time, and purpose. Able to pay attention, focus, and respond appropriately. Pain: None reported Vital Signs: Closely monitored by nursing staff Bed Mobility/Transfers: Minimal cueing provided for use of B hands as needed for support, movement sequence, AD management, and posture to reduce fall risk and minimize pain report Supine to sit with minimal assist, HOB at 45 degrees, Scoot forward to edge of bed minimal assist Sit to stand with minimal assist Stand to sit with contact guard assist Gait: Facilitated safe and correct performance of level surface ambulation covering a distance of 100 feet + 150 feet using front-wheeled walker with contact guard assist and wheelchair follow requiring minimal verbal cueing for limb advancement, AD management, and posture to reduce fall risk and minimize pain report. In the afternoon, patient was just given a bowel suppository and preferred to stay in bed in case she has a major bowel movement . Asymmetric step height and length but no LOB. Moderate shortness of breath resolved with rest. Assessment: No bowel movement since a week ago. Did not want to get out of bed as she just had a suppository placed in her by the nurse. Continues to require assistance of 1 person for all mobility ADL performance. Patient presents with clinical signs and symptoms consistent with current/admitting diagnoses that have resulted to mobility limitations, gait instability, generalized weakness, and overall ADL decline DISCHARGE RECOMMENDATIONS: [] Home with no services [] [] Home with services [] Home with outpatient PT [] [] SNF for continued rehabilitation [] [] [facility] [] [] SNF versus LTC based on ability to participate and progress [] [X] Return to SNF and resume PT services for functional mobility training/progression TREATMENT CODE/TIME: 80089 x 32 minutes for 2 units (11:43-12:15).
--- NOTE | 2024-05-02 12:21 | CMPROGNOTE_ITS ---
Date of service: 05/02/24 Time of Service: 12:21 Care Management Progress Note Progress Note Text Progress Note Text: Nilam was up in the bedside chair when CM met with her today. She was pleasant, but stated she did not feel well today. Her pre-lunch blood sugar was 414. Nilam stated that this leaves her feeling nauseous and that her eye sight is blurry. She is not sure what is going on, and the providers don't really have answers. Nilam would like to be discharged, but not until her BS situation is figured out. The [facility] has called the last 2 days to check on Nilam's status. Discharge Potential Discharge Needs: Other (f/u with the provider at the [facility]) Anticipated Barriers to Discharge: None Identified and Medical Status (continued elevated blood glucose levels) Patient/Family Education Needs: Review discharge instructions, discuss Ask Me Three Transportation: RCT RCT Transportation: Wheel chair van Plan: Anticipate Nilam will return to the [facility], where she resides. She will likely transport via RCT w/c van when ready, as arranged by CM. She will follow up with facility providers and her discharge plan of care. CM will continue to follow SDOH(Care Management) Screening Will the Patient Participate in the Screening?: Yes Do you worry about having a steady place to live?: no In the past 12 months, have you had to go without electric, gas, oil or water in your home?: no Have you or anyone in your house had to go without enough food to eat?: no Has lack of transportation kept you from medical appointments or from doing things needed for daily living?: no Has anyone in your support network made you feel unsafe for any reason?: no Health Related Social Needs Health related social needs details: From [facility]
[2024-05-02 13:01] LABS: Glucose 429 mg/dL (74-106)
[2024-05-02] MEDS: Insulin Aspart 100 UNITS/ML UNIT SC ×2 (14:37→17:17)
--- NOTE | 2024-05-02 14:37 | CHAPLAIN ---
Nilam had a coughing spell while I was in her room. She said she's not set to go back to the [facility] yet because her blood sugar levels were high today. She hopes to be able to go tomorrow. Nilam has trouble seeing, and was watching tv shows on her phone so she could hold the screen closer to her. She said she may have surgery on her eye but not until August. I will continue to visit.
[2024-05-02] MEDS: Bisacodyl 10 MG SUPP PR (15:03)
[2024-05-02 16:49] LABS: Anion Gap 5.9 mmol/L (3-11); BUN 38 mg/dL (7-18); CO2 30.1 mmol/L (21.0-32.0); CREATININE 1.5 mg/dL (0.55-1.02); Chloride 95 mmol/L (98-107); Estimated GFR 36.34 (mL/min/1.73m2); Glucose 392 mg/dL (74-106); Potassium 4.6 mmol/L (3.5-5.1); Sodium 131 mmol/L (136-145)
[2024-05-02] MEDS: metFORMIN 500 MG TAB PO (17:03)
[2024-05-02] MEDS: Milk of Magnesia 30 ML CUP PO (20:50)
[2024-05-02] MEDS: Atorvastatin 40 MG TAB PO (20:52)
[2024-05-02] MEDS: Levothyroxine 150 MCG TAB PO (20:52)
[2024-05-02] MEDS: Melatonin 3 MG TAB PO (20:52)
[2024-05-02] MEDS: traZODone 50 MG TAB PO (20:53)
[2024-05-02] MEDS: Insulin Glargine 300 UNITS/3 ML PEN 70 UNITS SC (22:26)
[2024-05-03 03:25] VITALS: BP 114/60; PULSE 72; RESP 18; TEMP 36.7; O2SAT 95
[2024-05-03 07:00] VITALS: BP 115/78; PULSE 66; RESP 18; TEMP 36.4; O2SAT 90
--- NOTE | 2024-05-03 08:42 | PTTR_ITS ---
PT Notes Visit Reasons: Acute hypoxic respiratory failure Physical Therapy Inpatient Treatment Note Date: 05/03/2024 Precautions: Fall. Standard. Activity as tolerated. Subjective: Happy that she has had a bowel movement finally this afternoon. her sugars too was 104 mg/dL this morning. She feels that she may be able to go back to the SNf this afternoon. She is hopeful that she can continue with getting better with walking at the SNF with PT. Objective: General Observation: Resting on chair. High BMI. B LE swelling noted. IV through L UE. Mental Status: Alert and oriented as to person, place, time, and purpose. Able to pay attention, focus, and respond appropriately. Pain: None reported Vital Signs: Closely monitored by nursing staff Bed Mobility/Transfers: Minimal cueing provided for use of B hands as needed for support, movement sequence, AD management, and posture to reduce fall risk and minimize pain report Sit to stand with stand by assist with FWW Stand to sit with stand by assist with FWW Gait: Facilitated safe and correct performance of level surface ambulation covering a distance of 100 feet + 100 feet + 100 feet using front-wheeled walker with stand by assist and wheelchair follow requiring minimal verbal cueing for limb advancement, AD management, and posture to reduce fall risk and minimize pain report. Step height and length almost symmetric. Moderate shortness of breath resolved with rest. Assessment: Continues to require assistance of 1 person for all mobility ADL performance. Patient presents with clinical signs and symptoms consistent with current/admitting diagnoses that have resulted to mobility limitations, gait instability, generalized weakness, and overall ADL decline. She will continue to require subacute PT at SNF to achieve her personal goal of being able to walk from her room to the dining room using her front-wheeled walker. DISCHARGE RECOMMENDATIONS: [] Home with no services [] [] Home with services [] Home with outpatient PT [] [] SNF for continued rehabilitation [] [] [facility] [] [] SNF versus LTC based on ability to participate and progress [] [X] Return to SNF and resume PT services for functional mobility training/progression TREATMENT CODE/TIME: 01679 x 40 minutes for 3 units (08:42-09:22).
[2024-05-03 08:50] LABS: Anion Gap 8.4 mmol/L (3-11); BUN 31 mg/dL (7-18); CO2 33.6 mmol/L (21.0-32.0); CREATININE 1.1 mg/dL (0.55-1.02); Calcium 9.2 mg/dL (8.5-10.1); Chloride 98 mmol/L (98-107); Estimated GFR 52.73 (mL/min/1.73m2); Glucose 103 mg/dL (74-106); Magnesium 2.7 mg/dL (1.8-2.4); Potassium 3.6 mmol/L (3.5-5.1); Sodium 140 mmol/L (136-145)
[2024-05-03 09:21] LABS: Abs Immature Grans 0.12 10^3/uL (0.0-0.06); Absolute Basophil Count 0.04 10^3/uL (0.0-0.2); Absolute Eosinophil Count 0.19 10^3/uL (0.0-0.7); Absolute Lymphocyte Count 3.77 10^3/uL (1.2-3.4); Absolute Monocyte Count 1.09 10^3/uL (0.1-0.8); Absolute Neutrophil Count 7.58 10^3/uL (1.2-6.7); Basophils % 0.3 %; Eosinophils % 1.5 %; HCT 36.7 % (36.0-46.0); HGB 11.9 g/dL (11.2-15.7); Immature Grans % 0.9 %; Lymphocytes % 29.5 %; MCH 26.4 pg (27.0-33.0); MCHC 32.4 % (32.0-36.0); MCV 82 fL (80-95); MPV 9.4 fL (8.0-11.0); Monocytes % 8.5 %; Neutrophils % 59.3 %; Platelet Count 299 10^3/uL (130-400); RDW 13.8 % (11.7-14.6); RDW-SD 40.5 fL; WBC 12.79 10^3/uL (4.4-10.8)
[2024-05-03] MEDS: Acetaminophen 500 MG TAB 1000 MG PO ×2 (09:52→13:31)
[2024-05-03] MEDS: predniSONE 20 MG TAB 40 MG PO (09:53)
[2024-05-03] MEDS: Docusate Sodium 100 MG CAP PO ×2 (09:53→13:31)
[2024-05-03] MEDS: guaiFENesin 600 MG TABCR PO (09:53)
[2024-05-03] MEDS: Ferrous Sulfate 325 MG TAB PO (09:53)
[2024-05-03] MEDS: Spironolactone 50 MG TAB PO (09:53)
[2024-05-03] MEDS: Furosemide 40 MG TAB PO (09:53)
[2024-05-03] MEDS: Pantoprazole 40 MG TABCR PO (09:53)
[2024-05-03] MEDS: Benzonatate 200 MG CAP PO ×2 (09:53→13:30)
[2024-05-03] MEDS: Enoxaparin 40 MG/0.4 ML SYR SC (09:54)
[2024-05-03] MEDS: metFORMIN 500 MG TAB PO (09:54)
[2024-05-03] MEDS: Insulin Aspart 300 UNITS/3 ML PEN SC ×3 (09:55→11:42)
[2024-05-03] MEDS: Nystatin POWDER 15 GM JAR TP (09:56)
[2024-05-03] MEDS: Insulin Glargine 300 UNITS/3 ML PEN 30 UNITS SC (09:56)
[2024-05-03] MEDS: Normal Saline Flush 10 ML SYR IVP (09:57)
--- NOTE | 2024-05-03 10:08 | PDOC.CMDIS ---
Date of service: 05/03/24 Time of Service: 10:08 LACE Index Scoring Tool Questions: Length of Stay (in days): 4 - 6 Was the patient admitted via the E.D.?: Yes Comorbidities: Cerebrovascular Disease, Diabetes w/o Complication and Congestive Heart Failure E.D. Visits: 5 Answers: Total Score: 16 Risk of Readmission: High Risk Care Management Discharge Plan Reason for Hospitalization: Acute hypoxic respiratory failure Discharge Plan: Nilam will be discharged today back to the [facility] where she resides. She will transport via RCT private vehicle as arranged by CM. She will f/u with the facility provider and continue per her plan of care. Patient/Family Education Needs: Review of discharge instructions, activity, limitations, f/u plan and discuss ask me 3. SDOH Health Related Social Needs: Health related social needs details From [facility] Health related social needs details: From [facility]
[2024-05-03 10:20] VITALS: O2SAT 94
[2024-05-03 11:12] VITALS: BP 117/67; PULSE 71; RESP 15; TEMP 36.9; O2SAT 94
--- NOTE | 2024-05-03 14:45 | NUR.NOTE ---
Nursing Note: Report given to Mehreen cameron at the [facility].
== END 2024-05-03 14:10 | disposition skilled nursing facility (03) | DRG 189 ==
LOC: ER 23:40 → MS 04-29 00:29
PROVIDERS: Nurse Practitioner Acute Care; Admitting Provider Family Medicine; Emergency Provider Nurse Practitioner Family; PCP Nurse Practitioner Gerontology; Visit Provider Family Medicine
DX: J96.01 Acute respiratory failure with hypoxia (principal); Z68.41 Body mass index [BMI] 40.0-44.9, adult; E87.1 Hypo-osmolality and hyponatremia; I69.354 Hemiplegia and hemiparesis following cerebral infarction affecting left non-dominant side; I50.32 Chronic diastolic (congestive) heart failure; R05.3 Chronic cough; E11.42 Type 2 diabetes mellitus with diabetic polyneuropathy; I11.0 Hypertensive heart disease with heart failure; E83.42 Hypomagnesemia; Z79.85 Long-term (current) use of injectable non-insulin antidiabetic drugs; Z79.4 Long term (current) use of insulin; R13.10 Dysphagia, unspecified; Z86.14 Personal history of Methicillin resistant Staphylococcus aureus infection; M54.16 Radiculopathy, lumbar region; D63.8 Anemia in other chronic diseases classified elsewhere; E11.65 Type 2 diabetes mellitus with hyperglycemia; R74.01 Elevation of levels of liver transaminase levels; J06.9 Acute upper respiratory infection, unspecified; E66.01 Morbid (severe) obesity due to excess calories; D72.829 Elevated white blood cell count, unspecified
CPT/HCPCS: 00123; 36415; 80048; 82947; 84145; 85027; 87637; 93005; 94640; 96365; 96366; 96372; 97162; 97530; 99285; J1650; 71046; 83735; 83880; 84484; 85025; 85379; 93010; 94667; 94760; 99223; 99232; 99233; 99239; G0378; J1815; J3475; J7512; J7620

== ENCOUNTER 2024-05-08 17:01 | Outpatient (REF) | payer SELFPAY ==
--- OUTSIDE RECORDS SUMMARY | 2024-05-08 17:02 | XMS_ITS | Encounter Summary ---
Author Organization [facility] Address [address] [place] [id number] Care Team Providers Care User Acceptance Tester Name Role Phone Unknown, Provider Primary Care Provider Unava ilable Encounter Details Date Type Department Care Team (Late st Contact Info) Description 02/24/2024 Lab Requisition [facility] Pathology & Laboratory Medicine - [address] [address] Outr Resulting Lab, Provider Social History Tobacco Use Types Packs/Day Years Used Date Smoking Tobacco: Never Assessed Comments Unknown Sex and Gender Information Value Date Recorded Sex Assigned at Not on file Legal Sex Female 12:35 EDT Gender Identity Not on file Sexual Orientation [...] Quantiferon Interpretation Negative Negative 02/27/2024 13:45 EDT [facility] Comment:No interferon-gamma response to M. tuberculosis antigens was detected. ??Infection with M. tuberculosis is unlikely. A single negative result does not exclude infection with M. tuberculosis. ??In patients at high risk for M. tuberculosis infection, a second test should be considered. TB1 Ag minus Nil 0.01 IU/ml 02/27/20 13:45 EDT [facility] TB2 Ag minus Nil 0.00 IU/mL 02/27/20 13:45 EDT [facility] Blood VENOUS BLOOD / Unknown 02/23/2024 13:40 EDT 02/27/2024 12:40 EDT us Provider Outr Resulting Lab IMMUNOLOGY AND SEROL OGY ORDERABLES Final Result Performing Organization Address [facility] Co de Phone Number [facility] [address] [place] [phone] * QUANTIFERON MITOGEN (PERFORMABLE) (02/23/2024 13:40 EDT) Blood VENOUS BLOOD / Unknown 02/23/2024 13:40 EDT 02/24/2024 17:50 EDT us Provider Outr Resulting Lab IMMUNOLOGY AND SEROL OGY ORDERABLES Final Result Performing Organization Address [facility] Co de Phone Number [facility] [address] [place] [phone] * QUANTIFERON TB2 (PERFORMABLE) (02/23/2024 13:40 EDT) Blood VENOUS BLOOD / Unknown 02/23/2024 13:40 EDT 02/24/2024 17:50 EDT us Provider Outr Resulting Lab IMMUNOLOGY AND SEROL OGY ORDERABLES Final Result Performing Organization Address [facility] Co de Phone Number [facility] [address] [place] [phone] * QUANTIFERON TB1 (PERFORMABLE) (02/23/2024 13:40 EDT) Blood VENOUS BLOOD / Unknown 02/23/2024 13:40 EDT 02/24/2024 17:50 EDT us Provider Outr Resulting Lab IMMUNOLOGY AND SEROL OGY ORDERABLES Final Result Performing Organization Address City/[facility]/ZIP Co de Phone Number [facility] [address] [place], [place] [phone] * QUANTIFERON NIL (PERFORMABLE) (02/23/2024 13:40 EDT) Blood VENOUS BLOOD / Unknown 02/23/2024 13:40 EDT 02/24/2024 17:50 EDT us Provider Outr Resulting Lab IMMUNOLOGY AND SEROL OGY ORDERABLES Final Result Performing Organization Address City/[facility]/ZIP Co de Phone Number [facility] [address], [place] [id number] documented in this encounter Visit Diagnoses Not on filedocumented in this encounter Care Teams User Acceptance Tester Relationship Specialty Start Date End Date Unknown, Provider, PCP - General 11/19/23 documented as of this encounter
--- OUTSIDE RECORDS SUMMARY | 2024-05-08 17:02 | XMS_ITS | Encounter Summary ---
Author Organization [facility] Address [address] [place] [id number] Care Team Providers Care Pole Framer Machine Name Role Phone Unknown, Provider Primary Care Provider Unava ilable Encounter Details Date Type Department Care Team (Late st Contact Info) Description 10/17/2023 Lab Requisition [facility] Pathology & Laboratory Medicine - [address] [id number] Outr Resulting Lab, Provider Social History Tobacco [...] 275 - 295 mOsm/kg 10/17/2023 16:57 EDT [facility] Blood VENOUS BLOOD / Unknown 10/16/2023 13:39 EDT 10/17/2023 16:27 EDT us Provider Outr Resulting Lab CHEMISTRY & BLOOD GA S ORDERABLES Final Result [facility] [address] [place], [place] [phone] documented in this encounter Visit Diagnoses Not on filedocumented in this encounter Care Teams Pole Framer Machine Relationship Specialty Start Date End Date Unknown, Provider, PCP - General 11/19/23 documented as of this encounter
--- OUTSIDE RECORDS SUMMARY | 2024-05-08 17:02 | XMS_ITS | Referral Summary ---
Author Organization [facility] Address [address] [place] [address] Care Team Providers Care Online Merchandiser Name Role Phone Unknown, Provider Primary Care Provider Unava ilable Encounters Date Type Department Care Team Description 02/29/2024 Lab Requisition [facility] Pathology & Laboratory [address] [address] Outr Resulting Lab, Provider 02/24/2024 Lab Requisition [facility] Pathology & Laboratory [address] [address] Outr Resulting Lab, Provider from Last 3 [...] C Antibody Negative Negative 02/29/2024 23:10 EDT [facility] Blood VENOUS BLOOD / Unknown 02/29/2024 14:40 EDT 02/29/2024 21:40 EDT us Provider Outr Resulting Lab CHEMISTRY & BLOOD GA S ORDERABLES Final Result Performing Organization Address [facility]/ZIP Co de Phone Number [facility] [address] [place] [address] * HEPATITIS B CORE ANTIBODY (TOTAL) (02/29/2024 14:40 EDT) Pathologist [facility] Hepatitis B Core Ab, Total Negative Negative 02/29/2024 23:13 EDT [facility] Blood VENOUS BLOOD / Unknown 02/29/2024 14:40 EDT 02/29/2024 21:40 EDT us Provider Outr Resulting Lab CHEMISTRY & BLOOD GA S ORDERABLES Final Result Performing Organization Address City/[facility]/ZIP Co de Phone Number [facility] [address] [place] [address] * HEPATITIS B SURFACE ANTIBODY (02/29/2024 14:40 EDT) Pathologist [facility] Hep B Surface Ab, Quantitative <3.1 See Note mIU/mL 02/29/2024 22:30 EDT [facility] Comment: Reference Range for Hep B Surface Ab, Quant: Positive: >= 10.0 mIU/mL Negative: ??< 10.0 mIU/mL Patient is presumed to not be immune to infection with Hepatitis B Virus. Hep B Surface Ab, Qualitative Negative See Note 02/29/2024 22:30 EDT [facility] Comment: Reference Range for Hep B Surface Ab, Qual: Unvaccinated: ??Negative Vaccinated: ??Positive Blood VENOUS BLOOD / Unknown 02/29/2024 14:40 EDT 02/29/2024 21:40 EDT us Provider Outr Resulting Lab CHEMISTRY & BLOOD GA S ORDERABLES Final Result Performing Organization Address [facility] Co de Phone Number [facility] [address] [place] [address] * HEPATITIS B SURFACE ANTIGEN (02/29/2024 14:40 EDT) Hep B Surface Ag Negative Negative 02/29/2024 22:44 EDT [facility] Blood VENOUS BLOOD / Unknown 02/29/2024 14:40 EDT 02/29/2024 21:40 EDT us Provider Outr Resulting Lab CHEMISTRY & BLOOD GA S ORDERABLES Final Result Performing Organization Address [facility] Co de Phone Number [facility] [address] [place] [address] * QUANTIFERON MITOGEN (PERFORMABLE) (02/23/2024 13:40 EDT) Blood VENOUS BLOOD / Unknown 02/23/2024 13:40 EDT 02/24/2024 17:50 EDT us Provider Outr Resulting Lab IMMUNOLOGY AND SEROL OGY ORDERABLES Final Result Performing Organization Address [facility] Co de Phone Number [facility] [address] [place] [address] * QUANTIFERON TB2 (PERFORMABLE) (02/23/2024 13:40 EDT) Blood VENOUS BLOOD / Unknown 02/23/2024 13:40 EDT 02/24/2024 17:50 EDT us Provider Outr Resulting Lab IMMUNOLOGY AND SEROL OGY ORDERABLES Final Result Performing Organization Address [facility] Co de Phone Number [facility] [address] [place] [address] * QUANTIFERON TB1 (PERFORMABLE) (02/23/2024 13:40 EDT) Blood VENOUS BLOOD / Unknown 02/23/2024 13:40 EDT 02/24/2024 17:50 EDT us Provider Outr Resulting Lab IMMUNOLOGY AND SEROL OGY ORDERABLES Final Result Performing Organization Address [facility] Co de Phone Number [facility] [address] [place] [address] * QUANTIFERON NIL (PERFORMABLE) (02/23/2024 13:40 EDT) Blood VENOUS BLOOD / Unknown 02/23/2024 13:40 EDT 02/24/2024 17:50 EDT us Provider Outr Resulting Lab IMMUNOLOGY AND SEROL OGY ORDERABLES Final Result Performing Organization Address [facility] de Phone Number [facility] [address] [place] [address] * QUANTIFERON INTERPRETATION (PERFORMABLE) (02/23/2024 13:40 EDT) [facility] Quantiferon Interpretation Negative Negative 02/27/2024 13:45 EDT [facility] Comment:No interferon-gamma response to M. tuberculosis antigens was detected. ??Infection with M. tuberculosis is unlikely. A single negative result does not exclude infection with M. tuberculosis. ??In patients at high risk for M. tuberculosis infection, a second test should be considered. TB1 Ag minus Nil 0.01 IU/ml 02/27/20 13:45 EDT [facility] TB2 Ag minus Nil 0.00 IU/mL 02/27/20 13:45 EDT [facility] Blood VENOUS BLOOD / Unknown 02/23/2024 13:40 EDT 02/27/2024 12:40 EDT us Provider Outr Resulting Lab IMMUNOLOGY AND SEROL OGY ORDERABLES Final Result [facility] [address] [place] [address] from Last 3 Months Insurance [address] [id number] [facility]ICARE MEDICAID [place] [id number] [id number] Care Teams Online Merchandiser Relationship Specialty Start Date End Date Unknown, Provider, PCP - General 11/19/23
--- OUTSIDE RECORDS SUMMARY | 2024-05-08 17:02 | XMS_ITS | Encounter Summary ---
Author Organization [facility] Address [address] [place] [address] Care Team Providers Care Radio Operator Ground Name Role Phone Unknown, Provider MD Primary Care Provider Unava ilable Encounter Details Date Type Department Care Team (Late st Contact Info) Description 11/30/2023 Lab Requisition [facility] Pathology & Laboratory Medicine - [address] [place] [address] Pressure ulcer of right heel, [...] management options, if applicable. 12/05/2023 11:34 [facility] Final Diagnosis A. 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 - Acute serositis and adhesions. - Cholelithiasis. - Benign reactive lymph node. 12/05/2023 11:34 [facility] Attestation There was significan t resident/fellow involvement in the diagnostic evaluation of this case. By the signature below, the attending physician certifies that they have personally conducted a gross and/or microscopic examination of the described specimens and rendered or confirmed the above diagnosis. 12/05/2023 11:34 [facility] at 1134 Clinical History Cholecystitis, S/P cholecystostomy tube insertion 11/16/2023, developed sepsis with WBC 31,000, now open robert 12/05/2023 11:34 [facility] Gross Description A. Received in [...] received are several brown-black smooth multifaceted calculi. Public Relations Associate sections are submitted as follows: BLOCK MARIA A1- cystic duct margin, en face and bisected possible periductal lymph node A2-A6- artists' booking representative sections gallbladder wall A7- section separately submitted necrotic saccular tissue A8- artists' booking representative sections separately submitted tissue fragments MELO HILLIARD(ASCP) 11/30/2023 10:55 12/05/2023 11:34 EDT [facility] Resident/Fell ow: Jefry Montez DO 12/05/2023 11:34 EDT [facility] Performing Lab [facility] 12/05/2023 11:34 EDT [facility] Scanned Images 12/05/2023 11:34 EDT [facility] Tissue GALLBLADDER STRUCTURE / Unknown 11/29/2023 14:25 EDT 11/30/2023 8:14 EDT Kirit Tejeda PATHOLOGY ORDERABLES Final Resul t [facility] [address] [place], [place] [address] documented in this encounter Visit Diagnoses Diagnosis Pressure ulcer of right heel, unstageable ([facility]) Hypothyroidism, unspecified Acute cystitis without hematuria Acute cystitis Chronic diastolic (congestive) heart failure ([facility]) Anemia in other chronic diseases classified elsewhere Type 2 diabetes mellitus with hyperglycemia ([facility]) Type II or unspecified type diabetes mellitus without mention of complication, not stated as uncontrolled Type 2 diabetes mellitus with diabetic polyneuropathy ([facility]) Type II or unspecified type diabetes mellitus with neurological manifestations, not stated as uncontrolled Pneumonia, unspecified organism Cholecystitis, unspecified documented in this encounter Care Teams Radio Operator Ground Relationship Specialty Start Date End Date Unknown, Provider, PCP - General 11/19/23 documented as of this encounter
--- OUTSIDE RECORDS SUMMARY | 2024-05-08 17:02 | XMS_ITS | Clinical Summary ---
Author Organization [facility] Address [address] [place] [address] Care Team Providers Care Roulette Dealer Name Role Phone Unknown, Provider MD Primary Care Provider Unava ilable Encounters Date Type Department Care Team Description 02/29/2024 Lab Requisition [facility] Pathology & Laboratory [address] [address] Outr Resulting Lab, Provider 02/24/2024 Lab Requisition [facility] Pathology & Laboratory [address] [address] Outr Resulting Lab, Provider from Last 3 [...] ( o r 60+ Years) (1 - Risk 60-74 years 1-dose series) 2009 Fall Risk Screening 2014 COVID-19 [...] HCV RNA BY PCR (02/29/2024 14:40 EDT) Pathologist [facility] Hep C Antibody Negative Negative 02/29/2024 23:10 EDT [facility] Blood VENOUS BLOOD / Unknown 02/29/2024 14:40 EDT 02/29/2024 21:40 EDT us Provider Outr Resulting Lab CHEMISTRY & BLOOD GA S ORDERABLES Final Result [facility] [address] [place] [address] * HEPATITIS B CORE ANTIBODY (TOTAL) (02/29/2024 14:40 EDT) Pathologist [facility] Hepatitis B Core Ab, Total Negative Negative 02/29/2024 23:13 EDT [facility] Blood VENOUS BLOOD / Unknown 02/29/2024 14:40 EDT 02/29/2024 21:40 EDT us Provider Outr Resulting Lab CHEMISTRY & BLOOD GA S ORDERABLES Final Result [facility] [address] [place] [address] * HEPATITIS B SURFACE ANTIBODY (02/29/2024 14:40 EDT) Hep B Surface Ab, Quantitative <3.1 See Note mIU/mL 02/29/2024 22:30 EDT [facility] Comment: Reference Range for Hep B Surface Ab, Quant: Positive: >= 10.0 mIU/mL Negative: ??< 10.0 mIU/mL Patient is presumed to not be immune to infection with Hepatitis B Virus. Hep B Surface Ab, Qualitative Negative See Note 02/29/2024 22:30 EDT [facility] Comment: Reference Range for Hep B Surface Ab, Qual: Unvaccinated: ??Negative Vaccinated: ??Positive Blood VENOUS BLOOD / Unknown 02/29/2024 14:40 EDT 02/29/2024 21:40 EDT us Provider Outr Resulting Lab CHEMISTRY & BLOOD GA S ORDERABLES Final Result Performing Organization Address [facility] Co de Phone Number [facility] [address] [place] [address] * HEPATITIS B SURFACE ANTIGEN (02/29/2024 14:40 EDT) Pathologist [facility] Hep B Surface Ag Negative Negative 02/29/2024 22:44 EDT [facility] Blood VENOUS BLOOD / Unknown 02/29/2024 14:40 EDT 02/29/2024 21:40 EDT us Provider Outr Resulting Lab CHEMISTRY & BLOOD GA S ORDERABLES Final Result [facility] [address] [place] [address] * QUANTIFERON MITOGEN (PERFORMABLE) (02/23/2024 13:40 EDT) Blood VENOUS BLOOD / Unknown 02/23/2024 13:40 EDT 02/24/2024 17:50 EDT us Provider Outr Resulting Lab IMMUNOLOGY AND SEROL OGY ORDERABLES Final Result [facility] [address] [place] [address] * QUANTIFERON TB2 (PERFORMABLE) (02/23/2024 13:40 EDT) Blood VENOUS BLOOD / Unknown 02/23/2024 13:40 EDT 02/24/2024 17:50 EDT us Provider Outr Resulting Lab IMMUNOLOGY AND SEROL OGY ORDERABLES Final Result Performing Organization Address [facility]/ZIP Co de Phone Number [facility] [address] [place] [address] * QUANTIFERON TB1 (PERFORMABLE) (02/23/2024 13:40 EDT) Blood VENOUS BLOOD / Unknown 02/23/2024 13:40 EDT 02/24/2024 17:50 EDT us Provider Outr Resulting Lab IMMUNOLOGY AND SEROL OGY ORDERABLES Final Result Performing Organization Address [facility] de Phone Number [facility] [address] [place] [address] * QUANTIFERON NIL (PERFORMABLE) (02/23/2024 13:40 EDT) Blood VENOUS BLOOD / Unknown 02/23/2024 13:40 EDT 02/24/2024 17:50 EDT us Provider Outr Resulting Lab IMMUNOLOGY AND SEROL OGY ORDERABLES Final Result Performing Organization Address [facility] Co de Phone Number [facility] [address] [place] [address] * QUANTIFERON INTERPRETATION (PERFORMABLE) (02/23/2024 13:40 EDT) [facility] Quantiferon Interpretation Negative Negative 02/27/2024 13:45 EDT [facility] Comment:No interferon-gamma response to M. tuberculosis antigens was detected. ??Infection with M. tuberculosis is unlikely. A single negative result does not exclude infection with M. tuberculosis. ??In patients at high risk for M. tuberculosis infection, a second test should be considered. TB1 Ag minus Nil 0.01 IU/ml 02/27/20 13:45 EDT [facility] TB2 Ag minus Nil 0.00 IU/mL 02/27/20 13:45 EDT [facility] Blood VENOUS BLOOD / Unknown 02/23/2024 13:40 EDT 02/27/2024 12:40 EDT us Provider Outr Resulting Lab IMMUNOLOGY AND SEROL OGY ORDERABLES Final Result [facility] [address] [place] [address] from Last 3 Months Insurance [address] [address] [facility] MEDICARE MEDICAID [place] [address] [id number] [address] [address] [address] [address] Care Teams Roulette Dealer Relationship Specialty Start Date End Date Unknown, Provider, PCP - General 11/19/23
--- OUTSIDE RECORDS SUMMARY | 2024-05-08 17:02 | XMS_ITS | Encounter Summary ---
Author Organization [facility] Address [address] [place] [address] Care Team Providers Care Central Supply Tech Name Role Phone Unknown, Provider Primary Care Provider Unava ilable Encounter Details Date Type Department Care Team (Late st Contact Info) Description 10/17/2023 Lab Requisition [facility] Pathology & Laboratory Medicine - [address] [id number] Outr Resulting Lab, Provider Social History Tobacco [...] 150 - 1,150 mOsm/kg 10/17/2023 16:39 EDT [facility] Urine URINE / Unknown 10/16/2023 1 4:38 EDT 10/17/2023 16:27 EDT us Provider Outr Resulting Lab URINALYSIS ORDERABLE S Final Result [facility] [address] [place], [place] [address] documented in this encounter Visit Diagnoses Not on filedocumented in this encounter Care Teams Central Supply Tech Relationship Specialty Start Date End Date Unknown, Provider, PCP - General 11/19/23 documented as of this encounter
--- OUTSIDE RECORDS SUMMARY | 2024-05-08 17:02 | XMS_ITS | Encounter Summary ---
Author Organization [facility] Address [address] [place] [address] Care Team Providers Care Floor Mechanic Name Role Phone Unknown, Provider Primary Care Provider Unava ilable Encounter Details Date Type Department Care Team (Late st Contact Info) Description 02/29/2024 Lab Requisition [facility] Pathology & Laboratory Medicine - [address] [address] Outr Resulting Lab, Provider Social History Tobacco [...] <3.1 See Note mIU/mL 02/29/2024 22:30 EDT [facility] Comment: Reference Range for Hep B Surface Ab, Quant: Positive: >= 10.0 mIU/mL Negative: ??< 10.0 mIU/mL Patient is presumed to not be immune to infection with Hepatitis B Virus. Hep B Surface Ab, Qualitative Negative See Note 02/29/2024 22:30 EDT [facility] Comment: Reference Range for Hep B Surface Ab, Qual: Unvaccinated: ??Negative Vaccinated: ??Positive Blood VENOUS BLOOD / Unknown 02/29/2024 14:40 EDT 02/29/2024 21:40 EDT us Provider Outr Resulting Lab CHEMISTRY & BLOOD GA S ORDERABLES Final Result [facility] [address] [place] [address] * HEPATITIS B CORE ANTIBODY (TOTAL) (02/29/2024 14:40 EDT) Hepatitis B Core Ab, Total Negative Negative 02/29/2024 23:13 EDT [facility] Blood VENOUS BLOOD / Unknown 02/29/2024 14:40 EDT 02/29/2024 21:40 EDT us Provider Outr Resulting Lab CHEMISTRY & BLOOD GA S ORDERABLES Final Result Performing Organization Address City/[facility]/ZIP Co de Phone Number [facility] [address] [place] [address] * HEPATITIS B SURFACE ANTIGEN (02/29/2024 14:40 EDT) Hep B Surface Ag Negative Negative 02/29/2024 22:44 EDT [facility] Blood VENOUS BLOOD / Unknown 02/29/2024 14:40 EDT 02/29/2024 21:40 EDT us Provider Outr Resulting Lab CHEMISTRY & BLOOD GA S ORDERABLES Final Result [facility] [address] [place] [address] * HEPATITIS C AB W REFLEX TO HCV RNA BY PCR (02/29/2024 14:40 EDT) Hep C Antibody Negative Negative 02/29/2024 23:10 EDT [facility] Blood VENOUS BLOOD / Unknown 02/29/2024 14:40 EDT 02/29/2024 21:40 EDT us Provider Outr Resulting Lab CHEMISTRY & BLOOD GA S ORDERABLES Final Result [facility] [address], [place] [phone] documented in this encounter Visit Diagnoses Not on filedocumented in this encounter Care Teams Floor Mechanic Relationship Specialty Start Date End Date Unknown, Provider, PCP - General 11/19/23 documented as of this encounter
--- OUTSIDE RECORDS SUMMARY | 2024-05-08 17:03 | XMS_ITS | Encounter Summary ---
Author Organization [facility] [place] [address] Care Team Providers Care Log Cut Off Sawyer Name Role Phone Unavailable Primary Care Provider Unavailabl e Reason for Referral * Diagnostic Test (Routine) - Pending Review Specialty Diagnoses / Procedures Referred By Silvana taylor Referred To Contact Radiology Diagnoses Acute cholecystitis Procedures IR Cholecystostomy Tube Placement Merissa Oakes PA [facility] [place] [address] [place] [address] Referral ID Status Reason Start Date Expiration Date Visits Requested Visits Authorized [id number] Pending Review Specialty Service Requested 11/15/2023 05/17/2025 1 1 Encounter Details Date Type Department Care Team (Late st Contact Info) Description 11/15/2023 [place] [address] Merissa Oakes PA [facility] [place] [address] Acute cholecystitis Social History Tobacco [...] by Dr. Alexandro Smith at [facility] at 09:10 11/14 regarding the procedure request below. There are no answered order specific questions. History of Present Illness: Per chart review, Nilam Dyer is a 73 y.o. female currently admitted[facility] for gallstone pancreatitis with rising leukocytosis, positive [...] [facility] [address] [place] [address] Rama Justice MD [facility] [address] [facility] [place] [address] documented as of this encounter Results * [...] the tract was dilated and a 10 Gabonese Fr locking pigtail drain was advanced into [...] return via hospital transfer to [facility], when meets criteria Resident/Fellow: Alvin Harris MD Attending: Dr. Mendiola I, Dr. Mendiola, was present throughout the procedure. I was present during the intraservice time as documented by the IR Nurse. ?? Efraín Teran DO IMG IR ORDERABLES documented in this encounter Visit Diagnoses Diagnosis Acute cholecystitis Acute cholecystitis documented in this encounter
--- OUTSIDE RECORDS SUMMARY | 2024-05-08 17:03 | XMS_ITS | Clinical Summary ---
Author Organization Formerly [facility] Address [facility] [place] [address] Care Team Providers Care Card Brusher Name Role Phone Unavailable Primary Care Provider [...] Team Description 03/06/2024 Specialty [place] [phone] Basilio Rausch CPHT 03/06/2024 Telephone Dermatology at [facility] [address] [place] [address] Rama Justice MD 03/05/2024 Telephone Dermatology at [facility] [address] [place] [address] Rama Justice MD 03/01/2024 [facility] [address] [place] [address] Rama Justice MD 02/28/2024 [facility] [address] [place] [address] Rama Justice MD 02/28/2024 [facility] [address] [place] [address] Raam Justice MD 02/24/2024 Transcribe Orders Dermatology at [facility] [address] [place] [address] Rama Justice MD Hidradenitis suppurativa; High risk medication use 02/23/2024 Telephone [facility] at [facility] [address] [facility] [place] [address] Rama Justice MD 02/14/2024 11:00 AM EDT Office Visit Dermatology at [facility] [address] [place] [address] Rama Justice MD Hidradenitis suppurativa; Intertrigo from [...] 9:30 AM EST Office Visit Dermatology at [facility] [address] [place] [address] Rama Justice MD [facility] [address] [place] [address] Health Maintenance Due Date Last Done Comments [...]
--- OUTSIDE RECORDS SUMMARY | 2024-05-08 17:03 | XMS_ITS | Encounter Summary ---
Author Organization [facility] Address [facility] [place] [address] Care Team Providers Care Dry Roaster Name Role Phone Unavailable Primary Care Provider Unavailabl e Encounter Details Date Type Department Care Team (Late st Contact Info) Description 11/11/2023 12:05 AM EDT Ancillary Procedure Radiology Library at [facility] [place] [address] Morgan Beauchamp MD [facility] DIAGNOST[place] [address] Social History Tobacco Use Types Packs/Day Years [...] at [facility] [address] [place] [address] Rama Justice MD [facility] DR ANN MARIE [place] [address] documented as of this encounter Procedures Procedure Name Priority Date/Time Associated Diagnosis Comments FILM LIBRARY STORAGE ONLY CT ABDOMEN Routine 11/11/2023 12:05 AM EDT documented in this encounter Results * Film Library- Storage Only CT Abdomen (11/11/2023 12:05 AM EDT) Narrative [facility] - 11/15/2023 9:12 AM EDT This exam is auto-finalizing. It's purpose is for storage only. Morgan Beauchamp MD IM FILM LIBRARY ORD ERABLES Performing Organization Address City/State/[facility] Co de Phone Number [place], [place] documented in this encounter Visit Diagnoses Not on filedocumented in this encounter
--- OUTSIDE RECORDS SUMMARY | 2024-05-08 17:03 | XMS_ITS | Encounter Summary ---
Author Organization [facility] Address [facility] [place] [address] Care Team Providers Care Tailer Out Name Role Phone Unavailable Primary Care Provider Unavailabl e Encounter Details Date Type Department Care Team (Late st Contact Info) Description 02/28/2024 Telephone Dermatology at [facility] [address] [place] [address] Rama Justice MD [facility] DR [address] MAR[address] [place] [address] Social History Tobacco Use Types [...] over the orders? The fax # is [phone]. If anything further is needed their phone number is [phone] (ask for Faith) documented in this encounter Plan of Treatment Upcoming Encounters Date Type Department Care Team (Late st Contact Info) Description 05/29/2024 9:30 AM EST Office Visit Dermatology at [facility] [address] [place] [address] Rama Justice MD [facility] DR ANN MARIE [place] [address] documented as of this encounter Visit Diagnoses Not on filedocumented in this encounter
--- OUTSIDE RECORDS SUMMARY | 2024-05-08 17:03 | XMS_ITS | Encounter Summary ---
Author Organization [facility], [facility]–1983 [place] [address] Care Team Providers Care Clothing Supervisor Name Role Phone Unavailable Primary Care Provider Unavailabl e Reason for Referral * Diagnostic Test (Routine) - Pending Review Specialty Diagnoses / Procedures Referred By Silvana taylor Referred To Contact Radiology Diagnoses Acute cholecystitis Procedures IR Cholecystostomy Tube Placement Merissa Oakes PA [facility] [place] [address] [facility] [place] [address] Referral ID Status Reason Start Date Expiration Date Visits Requested Visits Authorized [id number] Pending Review Specialty Service Requested 11/15/2023 05/17/2025 1 1 Reason for Visit * Diagnostic Test (Routine) - Pending Review Specialty Diagnoses / Procedures Referred By Silvana taylor Referred To Contact Radiology Diagnoses Acute cholecystitis Procedures IR Cholecystostomy Tube Placement Merissa Oakes PA [facility] [place] [address] [place] [address] Referral ID Status Reason Start Date Expiration Date Visits Requested Visits Authorized [id number] Pending Review Specialty Service Requested 11/15/2023 05/17/2025 1 1 Encounter Details Date Type Department Care Team (Latest Contact Info) Description 11/16/2023 12:36 PM EDT - 11/16/2023 11:59 PM EDT Hospital [place] [address] Efraín Teran, [facility] [place] [address] Acute cholecystitis Discharge Disposition: Home Social History [...] other surface. Always put a registered nurse float pool on the end to keep clean. 11. If you drainage bags starts to have an odor, you can clean the bag after removing it from the tube. Turn the stopcock to off. Put on a registered nurse float pool to the end of the stopcock to [...] is during regular office hours, please call [phone]. If it is after regular office hours, or on weekends or holidays, please call [phone] and ask to speak to the Tool Room Attendant cotton grader for Interventional Radiology. XX You have received [...] Questions Answers Where will study be performed? [facility] Radiology [120] To be scheduled Next available after expected date Reason for exam and clinical history: Suspected acute cholecystitis, down/back procedure from [facility] Is the patient on anticoagulant / [...] Service contacted by Dr. Alexandro Smith at [facility] at 09:10 11/14 regarding the procedure request below. There are no answered order specific questions. History of Present Illness: Per chart review, Nilam Dyer is a 73 y.o. female currently admittedto [facility] for gallstone pancreatitis with rising leukocytosis, [...] 9:30 AM EST Office Visit Dermatology at [facility] [address] [place] [address] Rama Justice MD [facility] DR ANN MARIE [place] [address] documented as of this encounter Procedures Procedure [...] O RDERARANDELL [facility] [place] [address] * IR Cholecystostomy Tube Placement (11/16/2023 2:57 [...] the tract was dilated and a 10 Romansh Fr locking pigtail drain was advanced into [...] discharge to return via hospital transfer to [facility], when meets criteria Resident/Fellow: Alvin Harris [...] - GENER AL ORDERABLES Performing Organization Address City/State/[facility] Co de Phone Number [facility] [place] [phone] * (ABNORMAL) Body Fluid Culture, Aerobic (11/16/2023 [...] coli Trimethoprim/Sulfa VITEK 2 METHOD Resistant Jose Mendiloa MD MICROBIOLOGY - GENER AL ORDERABLES Performing Organization Address [facility] Co de Phone Number [facility] [place] [address] * POCT Glucose (11/16/2023 1:35 PM EDT) Glucose, POC 84 65 - 199 mg/dL [facility] Comment: Supplemental ranges: <140 mg/dL before meals <180 mg/dL all other times of the day Blood 11/16/2023 1:35 PM EDT 11/16/2023 1:35 PM EDT Efraín Teran DO POINT OF CARE TEST O RDERABLES Performing Organization Address [facility] Co de Phone Number [facility] [place] [address] documented in this encounter Visit Diagnoses Diagnosis [...]
--- OUTSIDE RECORDS SUMMARY | 2024-05-08 17:03 | XMS_ITS | Encounter Summary ---
Author Organization [facility] Address [facility] [place] [address] Care Team Providers Care Media Clerk Name Role Phone Unavailable Primary Care Provider Unavailabl e Encounter Details Date Type Department Care Team (Late st Contact Info) Description 03/05/2024 Telephone Dermatology at [facility] [address] [place] [address] Rama Justice MD [facility] DR [address] [place] [place] [address] Social History Tobacco Use Types [...] 9:30 AM EST Office Visit Dermatology at [facility] [address] [place] [address] Rama Justice MD [facility] DR [address] [place] [address] documented as of this encounter Visit Diagnoses Not on filedocumented in this encounter
--- OUTSIDE RECORDS SUMMARY | 2024-05-08 17:03 | XMS_ITS | Encounter Summary ---
Author Organization [facility] Address [facility] [place] [address] Care Team Providers Care Servicer Coin Machines Name Role Phone Unavailable Primary Care Provider Unavailabl e Encounter Details Date Type Department Care Team (Late st Contact Info) Description 11/29/2023 2:20 AM EDT Ancillary Procedure Radiology Library at [facility] [place] [id number] Efraín Deras MD [facility] [place] [address] Social History Tobacco Use Types Packs/Day Years [...] at [facility] [address] [place] [address] Rama Justice MD [facility] DR [place] [address] documented as of this encounter Procedures Procedure Name Priority Date/Time Associated Diagnosis Comments FILM LIBRARY STORAGE ONLY CT CHEST ABDOMEN PELVIS Routine 11/29/2023 2:17 AM EDT documented in this encounter Results * Film Library- Storage Only CT Chest Abdomen Pelvis (11/29/2023 2:17 AM EDT) Narrative [facility] - 11/29/2023 2:17 AM EDT This exam is auto-finalizing. It's purpose is for storage only. Efraín Deras MD [facility] FILM LIBRARY ORD ERABLES Performing Organization Address City/State/[facility] Co de Phone Number KE HAYNES [place], [place] documented in this encounter Visit Diagnoses Not on filedocumented in this encounter
--- OUTSIDE RECORDS SUMMARY | 2024-05-08 17:03 | XMS_ITS | Encounter Summary ---
Author Organization [facility] Address [address] [place] [address] Care Team Providers Care Tape Keller Operator Name Role Phone Unknown, Provider Primary Care Provider Unava ilable Encounter Details Date Type Department Care Team (Late st Contact Info) Description 09/05/2023 Lab Requisition [facility] Pathology & Laboratory Medicine - [address] [phone] Outr Resulting Lab, Provider Social History Tobacco [...] 201 - 352 mg/dL 09/06/2023 9:56 EDT [facility] Blood VENOUS BLOOD / Unknown 09/05/2023 6:09 EDT 09/05/2023 16:50 EDT us Provider Outr Resulting Lab CHEMISTRY & BLOOD GA S ORDERABLES Final Result [facility] [address] [place], [place] [address] documented in this encounter Visit Diagnoses Not on filedocumented in this encounter Care Teams Tape Keller Operator Relationship Specialty Start Date End Date Unknown, Provider, PCP - General 11/19/23 documented as of this encounter
--- OUTSIDE RECORDS SUMMARY | 2024-05-08 17:03 | XMS_ITS | Encounter Summary ---
Author Organization [facility] Address [facility] [place] [address] Care Team Providers Care Pediatric Social Worker Name Role Phone Unavailable Primary Care Provider Unavailabl e Encounter Details Date Type Department Care Team (Late st Contact Info) Description 11/11/2023 Ancillary Procedure Radiology Library at [facility] [place] [address] Morgan Beauchamp MD [facility] [place] [address] Social History Tobacco Use Types Packs/Day Years [...] 9:30 AM EST Office Visit Dermatology at [facility] [address] [place] [address] Rama Justice MD [facility] DR [place] [address] documented as of this encounter Procedures Procedure Name Priority Date/Time Associated Diagnosis Comments FILM LIBRARY STORAGE ONLY NUCLEAR MEDICINE Routine 11/11/2023 12:00 AM EDT documented in this encounter Results * Film Library- Storage Only nuclear medicine (11/11/2023 12:00 AM EDT) Narrative [facility] - 11/15/2023 9:11 AM EDT This exam is auto-finalizing. It's purpose is for storage only. Morgan Beauchamp MD [facility] FILM LIBRARY ORD ERABLES Performing Organization Address City/State/[facility] Co de Phone Number [place], [place] documented in this encounter Visit Diagnoses Not on filedocumented in this encounter
--- OUTSIDE RECORDS SUMMARY | 2024-05-08 17:03 | XMS_ITS | Encounter Summary ---
Author Organization [facility] Address [facility] [place] [address] Care Team Providers Care Dietary Services Director Name Role Phone Unavailable Primary Care Provider Unavailabl e Encounter Details Date Type Department Care Team (Late st Contact Info) Description 02/28/2024 Telephone Dermatology at [facility] [address] [place] [address] Rama Justice MD [facility] DR [address] MAR[address] [place] [address] Social History Tobacco Use Types Packs/Day Years [...] for Nilam as she resides at the [facility]. Faith mentioned they can see some labs have been done at the [facility]. We have not received any [...] the results faxed to the office @ [phone]. Faxed lab orders today @ 2:48 PM to [facility] where Nilam resides fax # and phone # is phone number is [phone] Quant Gold Hep C Antibody Hep B Core Antibody Hep B Surface Antibody Hep B Surface Antigen documented in this encounter Plan of Treatment Upcoming Encounters Date Type Department Care Team (Late st Contact Info) Description 05/29/2024 9:30 AM EST Office Visit Dermatology at [facility] [address] [place] [address] Rama Justice MD [facility] DR [address] MAR[address] [place] [address] documented as of this encounter Visit Diagnoses Not on filedocumented in this encounter
--- OUTSIDE RECORDS SUMMARY | 2024-05-08 17:03 | XMS_ITS | Encounter Summary ---
Author Organization [facility] Address [facility] [place] [address] Care Team Providers Care Pediatric Neurologist Name Role Phone Unavailable Primary Care Provider Unavailabl e Encounter Details Date Type Department Care Team (Late st Contact Info) Description 03/06/2024 Telephone Dermatology at [facility] [address] [place] [address] Rama Justice MD [facility] [address] [place] [address] Social History Tobacco Use Types Packs/Day Years [...] 03/06/2024 8:31 AM EDT Note initiated by: MARIELAL CARLOS LPN @ 8:30 AM. Placed a call to the [facility]. Spoke with JANET Martinez and [...] # is Att: Michelle. There is an SALT GRINDER that is in the facility that views [...] 9:30 AM EST Office Visit Dermatology at [facility] [address] [place] [address] Rama Justice MD [facility] DR [place] [address] documented as of this encounter Visit Diagnoses Not on filedocumented in this encounter
--- OUTSIDE RECORDS SUMMARY | 2024-05-08 17:03 | XMS_ITS | Encounter Summary ---
Author Organization [facility] Address [facility] [place] [address] Care Team Providers Care Superintendent Commissary Name Role Phone Unavailable Primary Care Provider Unavailabl e Encounter Details Date Type Department Care Team (Late st Contact Info) Description 02/23/2024 Telephone Dermatology at [facility] [address] [place] [address] Rama Justice MD [facility] DR [place] [address] Social History Tobacco Use Types Packs/Day Years [...] I received a call from Martha at [facility] lab in [place], [place] reaching out regarding the specific Hepatitis [...] [facility] [address] [place] [address] Rama Justice MD [facility] DR [place] [address] documented as of this encounter Visit Diagnoses Not on filedocumented in this encounter
--- OUTSIDE RECORDS SUMMARY | 2024-05-08 17:03 | XMS_ITS | Encounter Summary ---
Author Organization [facility] Address [facility] [place] [address] Care Team Providers Care Senior Accounting Manager Name Role Phone Unavailable Primary Care Provider Unavailabl e Encounter Details Date Type Department Care Team (Late st Contact Info) Description 02/14/2024 11:00 AM EDT Office Visit Dermatology at [facility] [address] [place] [address] Rama Justice MD [facility] [address] [place] [place] [address] Hidradenitis suppurativa; Intertrigo Social History Tobacco Use [...] month HS follow up [x]Note routed to department secretary []Recall placed in scheduling system []Appointment scheduled at checkout Scribe attestation: DERRICK White has performed the documentation for this encounter in the presence of and acting as a scribe for Rama Justice MD. I performed the above scribed service and agree with the accuracy of the documentation in this encounter. Reviewed and signed by: Rama Justice MD Dermatology [facility] documented in this encounter Plan of Treatment Upcoming Encounters Date Type Department Care Team (Late st Contact Info) Description 05/29/2024 9:30 AM EST Office Visit Dermatology at [facility] [address] [place] [address] Rama Justice MD [facility] DR [address] [place] [place] [address] documented as of this encounter Visit Diagnoses Diagnosis Hidradenitis suppurativa Hidradenitis Intertrigo Other specified erythematous condition documented in this encounter
--- OUTSIDE RECORDS SUMMARY | 2024-05-08 17:03 | XMS_ITS | Encounter Summary ---
Author Organization [facility] Address [facility] [place] [address] Care Team Providers Care Composite Bond Technician Name Role Phone Unavailable Primary Care Provider Unavailabl e Encounter Details Date Type Department Care Team (Late st Contact Info) Description 03/01/2024 Telephone Dermatology at [facility] [address] [place] [address] Rama Justice MD [facility] [address] MAR[address] [place] [address] Social History Tobacco Use Types Packs/Day Years [...] at [facility] [address] [place] [address] Rama Justice MD [facility] DR [address] MAR[address] [place] [address] documented as of this encounter Visit Diagnoses Not on filedocumented in this encounter
--- OUTSIDE RECORDS SUMMARY | 2024-05-08 17:03 | XMS_ITS | Encounter Summary ---
Author Organization [facility] Address [facility] [place] [address] Care Team Providers Care Excellence Manager Name Role Phone Unavailable Primary Care Provider Unavailabl e Encounter Details Date Type Department Care Team (Late st Contact Info) Description 12/06/2023 [place] [address] Jose Mendiola MD [facility] [place] [address] Social History Tobacco Use Types Packs/Day Years [...] PLACEMENT 11/16/2023 IR Cholecystostomy Tube Placement 11/16/2023 [facility] RAD Medications: Benzonatate 200 mg q [...] [facility] [address] [place] [address] Rama Justice MD [facility] DR [place] [address] documented as of this encounter Visit Diagnoses Not on filedocumented in this encounter
--- OUTSIDE RECORDS SUMMARY | 2024-05-08 17:03 | XMS_ITS | Encounter Summary ---
Author Organization [facility] Address [facility] [place] [address] Care Team Providers Care Order Runner Name Role Phone Unavailable Primary Care Provider Unavailabl e Encounter Details Date Type Department Care Team (Late st Contact Info) Description 11/14/2023 Ancillary Procedure Radiology Library at [facility] [place] [address] Morgan Beauchamp MD [facility] [place] [address] Social History Tobacco Use Types Packs/Day Years [...] AM EST Office Visit Dermatology at [facility] [address] [place] [address] Rama Justice MD [facility] DR [address] MARIE [place] [address] documented as of this encounter Procedures Procedure Name Priority Date/Time Associated Diagnosis Comments FILM LIBRARY STORAGE ONLY CT ABDOMEN Routine 11/14/2023 12:00 AM EDT documented in this encounter Results * Film Library- Storage Only CT Abdomen (11/14/2023 12:00 AM EDT) Narrative [facility] - 11/15/2023 9:10 AM EDT This exam is auto-finalizing. It's purpose is for storage only. Morgan Beauchamp MD IM FILM LIBRARY ORD ERABLES Performing Organization Address City/State/[facility] Co de Phone Number [place], [place] documented in this encounter Visit Diagnoses Not on filedocumented in this encounter
--- OUTSIDE RECORDS SUMMARY | 2024-05-08 17:03 | XMS_ITS | Encounter Summary ---
Author Organization [facility] Address [facility] [place] [address] Care Team Providers Care Satellite Dish Technician Name Role Phone Unavailable Primary Care Provider Unavailabl e Encounter Details Date Type Department Care Team (Latest Contact Info) Description 02/24/2024 Transcribe Orders Dermatology at [facility] [address] [place] [address] Rama Justice MD [facility] [place] [address] Hidradenitis suppurativa; High risk medication use Social [...] [facility] [address] [place] [address] Rama Justice MD [facility] [place] [address] Scheduled Orders Name Type Priority Associated Diagnoses [...]
--- OUTSIDE RECORDS SUMMARY | 2024-05-08 17:03 | XMS_ITS | Encounter Summary ---
Author Organization [facility] Address [facility] [place] [address] Care Team Providers Care Oil Recovery Unit Operator Name Role Phone Unavailable Primary Care Provider Unavailabl e Reason for Visit * Reason Comments Prior Authorization Cosentyx Sensoready Pens. 150mg/mL x 2 Encounter Details Date Type Department Care Team (Late st Contact Info) Description 03/06/2024 Specialty [place] [address] Basilio Rausch CPHT Social History Tobacco Use [...] MG/2 PENS (150 MG/ML) SUBCUTANEOUS Medication ID: [id number] Approval Dates: 06/20/2023 to 08/27/2024 Insurance requirements/notes: None Other Notes: None Case/Reference #: Approval notification Received via: Telephone Copay: $0.00 Copay assistance: None Copay Notes: Insurance mandated Pharmacy: [facility]: Yes Patient Notified: To be contacted by [facility] for consult Pharmacy staff will be reaching out to the patient to inform them of their [facility]. If applicable, a pharmacist will speak with the patient to offer our specialty pharmacy services and to arrange delivery of their medication. Basilio Rausch CPHT 03/06/24 8:45 AM documented in this encounter Plan of Treatment Upcoming Encounters Date Type Department Care Team (Late st Contact Info) Description 05/29/2024 9:30 AM EST Office Visit Dermatology at [facility] [address] [place] [address] Rama Justice MD [facility] DR [place] [address] documented as of this encounter Visit Diagnoses Not on filedocumented in this encounter
--- OUTSIDE RECORDS SUMMARY | 2024-05-08 17:03 | XMS_ITS | Encounter Summary ---
Author Organization [facility] Address [facility] [place] [address] Care Team Providers Care Real Estate Valuer Name Role Phone Unavailable Primary Care Provider [...] 9:30 AM EST Office Visit Dermatology at [facility] [address] [place] [address] Rama Justice MD [facility] DR [place] [address] documented as of this encounter Visit Diagnoses Not on filedocumented in this encounter
[2024-05-08 18:15] LABS: Absolute Eosinophil Count 0.71 10^3/uL (0.0-0.7); Absolute Lymphocyte Count 2.19 10^3/uL (1.2-3.4); Absolute Monocyte Count 1.12 10^3/uL (0.1-0.8); Basophils % 0.3 %; Eosinophils % 4.5 %; HCT 42.2 % (36.0-46.0); HGB 13.3 g/dL (11.2-15.7); Immature Grans % 0.6 %; Lymphocytes % 13.8 %; MCH 26.3 pg (27.0-33.0); MCHC 31.5 % (32.0-36.0); MCV 84 fL (80-95); MPV 9.8 fL (8.0-11.0); Monocytes % 7.1 %; Neutrophils % 73.7 %; Platelet Count 324 10^3/uL (130-400); RBC 5.05 10^6/uL (3.93-5.22); RDW 14.3 % (11.7-14.6); RDW-SD 43.4 fL; WBC 15.84 10^3/uL (4.4-10.8)
[2024-05-08 18:16] LABS: Absolute Basophil Count 0.05 10^3/uL (0.0-0.2); Absolute Neutrophil Count 11.67 10^3/uL (1.2-6.7)
[2024-05-08 18:25] LABS: ALT 20 U/L (14-59); AST 11 U/L (15-37); Albumin 3.6 g/dL (3.4-5.0); Alkaline Phosphatase 68 U/L (46-116); Anion Gap 8.7 mmol/L (3-11); BUN 36 mg/dL (7-18); CO2 30.3 mmol/L (21.0-32.0); CREATININE 1.5 mg/dL (0.55-1.02); Calcium 10.1 mg/dL (8.5-10.1); Chloride 96 mmol/L (98-107); Estimated GFR 36.34 (mL/min/1.73m2); Glucose 252 mg/dL (74-106); Magnesium 1.8 mg/dL (1.8-2.4); Potassium 4.2 mmol/L (3.5-5.1); Sodium 135 mmol/L (136-145); Total Protein 7.6 g/dL (6.4-8.2)
[2024-05-08 18:43] LABS: Hemoglobin A1C 10.4 % (<5.7)
== END 2024-05-08 17:02 | disposition home or self-care (01) ==
LOC: LBN 17:01
PROVIDERS: PCP Nurse Practitioner Gerontology; Visit Provider Nurse Practitioner Gerontology
DX: E11.65 Type 2 diabetes mellitus with hyperglycemia (principal)
CPT/HCPCS: 80053; 83036; 83735; 85025

== ENCOUNTER → 2024-05-14 10:00 | Outpatient (BNVA) | payer MEDICARE, MEDICAID, SELFPAY | PROVIDERS: PCP Nurse Practitioner Gerontology; Referring Provider Nurse Practitioner Gerontology; Visit Provider Physician Assistant Surgical | DX: R05.3 Chronic cough (principal); R13.10 Dysphagia, unspecified | CPT/HCPCS: 99214 ==

== ENCOUNTER 2024-05-14 11:20 | Inpatient (IN) | payer MEDICARE, MEDICAID, SELFPAY ==
[2024-05-14] VITALS (43 sets, daily range): BP systolic 115–142; BP diastolic 58–83; PULSE 75–98; RESP 5–31; TEMP 36.4–36.8; O2SAT 90–100
--- NOTE | 2024-05-14 11:15 | RT.EKG_ITS ---
APPROVED REPORT Exam: Resting ECG Reason for Exam: CHF Patient Location: E HR:89 bpm ECG Measurements Heart Rate 89 AXIS MD 177 P -6 QRSd 135 QRS -65 QT 410 T 42 QTc 500 Conclusion Sinus rhythm, rate 89 LVH, IVCD No STEMI No significant changes from priors
--- OUTSIDE RECORDS SUMMARY | 2024-05-14 11:35 | XMS_ITS | Clinical Summary ---
Author Organization [facility] Address [address] [place] [address] Care Team Providers Care Bilingual Customer Service Name Role Phone Unknown, Provider MD Primary Care Provider Unava ilable Encounters Date Type Department Care Team Description 02/29/2024 Lab Requisition [facility] Pathology & Laboratory [address] [address] Outr Resulting Lab, Provider 02/24/2024 Lab Requisition [facility] Pathology & Laboratory [address] [address] Outr Resulting Lab, Provider from Last 3 [...] RNA BY PCR (02/29/2024 14:40 EDT) Pathologist [facility] Hep C Antibody Negative Negative 02/29/2024 23:10 EDT [facility] Blood VENOUS BLOOD / Unknown 02/29/2024 14:40 EDT 02/29/2024 21:40 EDT us Provider Outr Resulting Lab CHEMISTRY & BLOOD GA S ORDERABLES Final Result [facility] [address] [place] [address] * HEPATITIS B CORE ANTIBODY (TOTAL) (02/29/2024 14:40 EDT) Pathologist [facility] Hepatitis B Core Ab, Total Negative Negative 02/29/2024 23:13 EDT [facility] Blood VENOUS BLOOD / Unknown 02/29/2024 14:40 EDT 02/29/2024 21:40 EDT us Provider Outr Resulting Lab CHEMISTRY & BLOOD GA S ORDERABLES Final Result [facility] [address] [place] [address] * HEPATITIS B SURFACE ANTIBODY (02/29/2024 14:40 EDT) Hep B Surface Ab, Quantitative <3.1 See Note mIU/mL 02/29/2024 22:30 EDT [facility] Comment: Reference Range for Hep B Surface Ab, Quant: Positive: >= 10.0 mIU/mL Negative: ??< 10.0 mIU/mL Patient is presumed to not be immune to infection with Hepatitis B Virus. Hep B Surface Ab, Qualitative Negative See Note 02/29/2024 22:30 EDT [facility] Comment: Reference Range for Hep B Surface Ab, Qual: Unvaccinated: ??Negative Vaccinated: ??Positive Blood VENOUS BLOOD / Unknown 02/29/2024 14:40 EDT 02/29/2024 21:40 EDT us Provider Outr Resulting Lab CHEMISTRY & BLOOD GA S ORDERABLES Final Result Performing Organization Address [facility] Co de Phone Number [facility] [address] [place] [address] * HEPATITIS B SURFACE ANTIGEN (02/29/2024 14:40 EDT) Pathologist [facility] Hep B Surface Ag Negative Negative 02/29/2024 22:44 EDT [facility] Blood VENOUS BLOOD / Unknown 02/29/2024 14:40 EDT 02/29/2024 21:40 EDT us Provider Outr Resulting Lab CHEMISTRY & BLOOD GA S ORDERABLES Final Result [facility] [address] [place] [address] * QUANTIFERON MITOGEN (PERFORMABLE) (02/23/2024 13:40 EDT) Blood VENOUS BLOOD / Unknown 02/23/2024 13:40 EDT 02/24/2024 17:50 EDT us Provider Outr Resulting Lab IMMUNOLOGY AND SEROL OGY ORDERABLES Final Result [facility] [address] [place] [address] * QUANTIFERON TB2 (PERFORMABLE) (02/23/2024 13:40 EDT) Blood VENOUS BLOOD / Unknown 02/23/2024 13:40 EDT 02/24/2024 17:50 EDT us Provider Outr Resulting Lab IMMUNOLOGY AND SEROL OGY ORDERABLES Final Result Performing Organization Address [facility]/ZIP Co de Phone Number [facility] [address] [place] [address] * QUANTIFERON TB1 (PERFORMABLE) (02/23/2024 13:40 EDT) Blood VENOUS BLOOD / Unknown 02/23/2024 13:40 EDT 02/24/2024 17:50 EDT us Provider Outr Resulting Lab IMMUNOLOGY AND SEROL OGY ORDERABLES Final Result Performing Organization Address [facility] de Phone Number [facility] [address] [place] [address] * QUANTIFERON NIL (PERFORMABLE) (02/23/2024 13:40 EDT) Blood VENOUS BLOOD / Unknown 02/23/2024 13:40 EDT 02/24/2024 17:50 EDT us Provider Outr Resulting Lab IMMUNOLOGY AND SEROL OGY ORDERABLES Final Result Performing Organization Address [facility] Co de Phone Number [facility] [address] [place] [address] * QUANTIFERON INTERPRETATION (PERFORMABLE) (02/23/2024 13:40 EDT) [facility] Quantiferon Interpretation Negative Negative 02/27/2024 13:45 EDT [facility] Comment:No interferon-gamma response to M. tuberculosis antigens was detected. ??Infection with M. tuberculosis is unlikely. A single negative result does not exclude infection with M. tuberculosis. ??In patients at high risk for M. tuberculosis infection, a second test should be considered. TB1 Ag minus Nil 0.01 IU/ml 02/27/20 13:45 EDT [facility] TB2 Ag minus Nil 0.00 IU/mL 02/27/20 13:45 EDT [facility] Blood VENOUS BLOOD / Unknown 02/23/2024 13:40 EDT 02/27/2024 12:40 EDT us Provider Outr Resulting Lab IMMUNOLOGY AND SEROL OGY ORDERABLES Final Result [facility] [address] [place] [address] from Last 3 Mon[address] Insurance [address] [id number] [facility] MEDICARE MEDICAID [place] [address] [phone] [phone] Care Teams Bilingual Customer Service Relationship Specialty Start Date End Date Unknown, Provider, PCP - General 11/19/23
--- OUTSIDE RECORDS SUMMARY | 2024-05-14 11:35 | XMS_ITS | Referral Summary ---
Author Organization [facility] Address [address] [place] [address] Care Team Providers Care Sample Grinder Name Role Phone Unknown, Provider Primary Care Provider Unava ilable Encounters Date Type Department Care Team Description 02/29/2024 Lab Requisition [facility] Pathology & Laboratory [address] [address] Outr Resulting Lab, Provider 02/24/2024 Lab Requisition [facility] Pathology & Laboratory [address] [address] Outr Resulting Lab, Provider from Last 3 [...] S ORDERABLES Final Result Performing Organization Address [facility]/ZIP Co de Phone Number [facility] [address] [place] [address] * HEPATITIS B CORE ANTIBODY (TOTAL) (02/29/2024 14:40 EDT) Pathologist [facility] Hepatitis B Core Ab, Total Negative Negative 02/29/2024 23:13 EDT [facility] Blood VENOUS BLOOD / Unknown 02/29/2024 14:40 EDT 02/29/2024 21:40 EDT us Provider Outr Resulting Lab CHEMISTRY & BLOOD GA S ORDERABLES Final Result Performing Organization Address City/[facility]/ZIP Co de Phone Number [facility] [address] [place] [address] * HEPATITIS B SURFACE ANTIBODY (02/29/2024 14:40 EDT) Pathologist [facility] Hep B Surface Ab, Quantitative <3.1 See [...] S ORDERABLES Final Result Performing Organization Address [facility] Co de Phone Number [facility] [address] [place] [address] * HEPATITIS B SURFACE ANTIGEN (02/29/2024 14:40 EDT) Hep B Surface Ag Negative Negative 02/29/2024 22:44 EDT [facility] Blood VENOUS BLOOD / Unknown 02/29/2024 14:40 EDT 02/29/2024 21:40 EDT us Provider Outr Resulting Lab CHEMISTRY & BLOOD GA S ORDERABLES Final Result Performing Organization Address [facility] Co de Phone Number [facility] [address] [place] [address] * QUANTIFERON MITOGEN (PERFORMABLE) (02/23/2024 13:40 EDT) Blood VENOUS BLOOD / Unknown 02/23/2024 13:40 EDT 02/24/2024 17:50 EDT us Provider Outr Resulting Lab IMMUNOLOGY AND SEROL OGY ORDERABLES Final Result Performing Organization Address [facility] Co de Phone Number [facility] [address] [place] [address] * QUANTIFERON TB2 (PERFORMABLE) (02/23/2024 13:40 EDT) Blood VENOUS BLOOD / Unknown 02/23/2024 13:40 EDT 02/24/2024 17:50 EDT us Provider Outr Resulting Lab IMMUNOLOGY AND SEROL OGY ORDERABLES Final Result Performing Organization Address [facility] Co de Phone Number [facility] [address] [place] [address] * QUANTIFERON TB1 (PERFORMABLE) (02/23/2024 13:40 EDT) Blood VENOUS BLOOD / Unknown 02/23/2024 13:40 EDT 02/24/2024 17:50 EDT us Provider Outr Resulting Lab IMMUNOLOGY AND SEROL OGY ORDERABLES Final Result Performing Organization Address [facility] Co de Phone Number [facility] [address] [place] [address] * QUANTIFERON NIL (PERFORMABLE) (02/23/2024 13:40 EDT) Blood VENOUS BLOOD / Unknown 02/23/2024 13:40 EDT 02/24/2024 17:50 EDT us Provider Outr Resulting Lab IMMUNOLOGY AND SEROL OGY ORDERABLES Final Result Performing Organization Address [facility] de Phone Number [facility] [address] [place] [address] * QUANTIFERON INTERPRETATION (PERFORMABLE) (02/23/2024 13:40 EDT) [facility] Quantiferon Interpretation Negative Negative 02/27/2024 13:45 [...] IMMUNOLOGY AND SEROL OGY ORDERABLES Final Result [facility] [address] [place] [address] from Last 3 Months Insurance [address] [address] [facility] MEDICARE MEDICAID [place] [id number] [id number] [address] [id number] [phone] Care Teams Sample Grinder Relationship Specialty Start Date End Date Unknown, Provider, PCP - General 11/19/23
--- OUTSIDE RECORDS SUMMARY | 2024-05-14 11:35 | XMS_ITS | Encounter Summary ---
Author Organization [facility] Address [address] [place] [address] Care Team Providers Care Cardiology Consultant Name Role Phone Unknown, Provider MD Primary Care Provider Unava ilable Encounter Details Date Type Department Care Team (Late st Contact Info) Description 11/30/2023 Lab Requisition [facility] Pathology & Laboratory Medicine - [address] [place] [address] Pressure ulcer of right heel, [...] explore management options, if applicable. 12/05/2023 11:34 [facility] Final Diagnosis A. 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 - Acute serositis and adhesions. - Cholelithiasis. - Benign reactive lymph node. 12/05/2023 11:34 [facility] Attestation There was significan t resident/fellow involvement in the diagnostic evaluation of this case. By the signature below, the attending physician certifies that they have personally conducted a gross and/or microscopic examination of the described specimens and rendered or confirmed the above diagnosis. 12/05/2023 11:34 [facility] at 1134 Clinical History Cholecystitis, S/P cholecystostomy tube insertion 11/16/2023, developed sepsis with WBC 31,000, now open robert 12/05/2023 11:34 [facility] Gross Description A. Received in [...] received are several brown-black smooth multifaceted calculi. Landscape Account Manager sections are submitted as follows: BLOCK MARIA A1- cystic duct margin, en face and bisected possible periductal lymph node A2-A6- ambulatory services representative sections gallbladder wall A7- section separately submitted necrotic saccular tissue A8- ambulatory services representative sections separately submitted tissue fragments MELO HILLIARD(ASCP) 11/30/2023 10:55 12/05/2023 11:34 EDT [facility] Resident/Fell ow: Jefry Montez DO 12/05/2023 11:34 EDT [facility] Performing Lab [facility] 12/05/2023 11:34 EDT [facility] Scanned Images 12/05/2023 11:34 EDT [facility] Tissue GALLBLADDER STRUCTURE / Unknown 11/29/2023 14:25 EDT 11/30/2023 8:14 EDT Kirit Tejeda PATHOLOGY ORDERABLES Final Resul t [facility] [address] [place], [place] [address] documented in this encounter Visit Diagnoses Diagnosis Pressure ulcer of right heel, unstageable ([facility]) Hypothyroidism, unspecified Acute cystitis without hematuria Acute cystitis Chronic diastolic (congestive) heart failure ([facility]) Anemia in other chronic diseases classified elsewhere Type 2 diabetes mellitus with hyperglycemia ([facility]) Type II or unspecified type diabetes mellitus without mention of complication, not stated as uncontrolled Type 2 diabetes mellitus with diabetic polyneuropathy ([facility]) Type II or unspecified type diabetes mellitus with neurological manifestations, not stated as uncontrolled Pneumonia, unspecified organism Cholecystitis, unspecified documented in this encounter Care Teams Cardiology Consultant Relationship Specialty Start Date End Date Unknown, Provider, PCP - General 11/19/23 documented as of this encounter
--- OUTSIDE RECORDS SUMMARY | 2024-05-14 11:35 | XMS_ITS | Encounter Summary ---
Author Organization [facility] Address [address] [place] [address] Care Team Providers Care Career Services Representative Name Role Phone Unknown, Provider Primary Care Provider Unava ilable Encounter Details Date Type Department Care Team (Late st Contact Info) Description 02/29/2024 Lab Requisition [facility] Pathology & Laboratory Medicine - [address] [address] Outr Resulting Lab, Provider Social History Tobacco [...] <3.1 See Note mIU/mL 02/29/2024 22:30 EDT [facility] Comment: Reference Range for Hep B Surface Ab, Quant: Positive: >= 10.0 mIU/mL Negative: ??< 10.0 mIU/mL Patient is presumed to not be immune to infection with Hepatitis B Virus. Hep B Surface Ab, Qualitative Negative See Note 02/29/2024 22:30 EDT [facility] Comment: Reference Range for Hep B Surface Ab, Qual: Unvaccinated: ??Negative Vaccinated: ??Positive Blood VENOUS BLOOD / Unknown 02/29/2024 14:40 EDT 02/29/2024 21:40 EDT us Provider Outr Resulting Lab CHEMISTRY & BLOOD GA S ORDERABLES Final Result [facility] [address] [place] [address] * HEPATITIS B CORE ANTIBODY (TOTAL) (02/29/2024 14:40 EDT) Hepatitis B Core Ab, Total Negative Negative 02/29/2024 23:13 EDT [facility] Blood VENOUS BLOOD / Unknown 02/29/2024 14:40 EDT 02/29/2024 21:40 EDT us Provider Outr Resulting Lab CHEMISTRY & BLOOD GA S ORDERABLES Final Result Performing Organization Address City/[facility]/ZIP Co de Phone Number [facility] [address] [place] [address] * HEPATITIS B SURFACE ANTIGEN (02/29/2024 14:40 EDT) Hep B Surface Ag Negative Negative 02/29/2024 22:44 EDT [facility] Blood VENOUS BLOOD / Unknown 02/29/2024 14:40 EDT 02/29/2024 21:40 EDT us Provider Outr Resulting Lab CHEMISTRY & BLOOD GA S ORDERABLES Final Result [facility] [address] [place] [address] * HEPATITIS C AB W REFLEX TO HCV RNA BY PCR (02/29/2024 14:40 EDT) Hep C Antibody Negative Negative 02/29/2024 23:10 EDT [facility] Blood VENOUS BLOOD / Unknown 02/29/2024 14:40 EDT 02/29/2024 21:40 EDT us Provider Outr Resulting Lab CHEMISTRY & BLOOD GA S ORDERABLES Final Result [facility] [address] [place], [place] [phone] documented in this encounter Visit Diagnoses Not on filedocumented in this encounter Care Teams Career Services Representative Relationship Specialty Start Date End Date Unknown, Provider, PCP - General 11/19/23 documented as of this encounter
--- OUTSIDE RECORDS SUMMARY | 2024-05-14 11:35 | XMS_ITS | Encounter Summary ---
Author Organization [facility] Address [address] [place] [address] Care Team Providers Care Putty Mixer Name Role Phone Unknown, Provider Primary Care Provider Unava ilable Encounter Details Date Type Department Care Team (Late st Contact Info) Description 02/24/2024 Lab Requisition [facility] Pathology & Laboratory Medicine - [address] [address] Outr Resulting Lab, Provider Social History Tobacco [...] Negative Negative 02/27/2024 13:45 EDT [facility] Comment:No interferon-gamma response to M. tuberculosis antigens was detected. ??Infection with M. tuberculosis is unlikely. A single negative result does not exclude infection with M. tuberculosis. ??In patients at high risk for M. tuberculosis infection, a second test should be considered. TB1 Ag minus Nil 0.01 IU/ml 02/27/20 13:45 EDT [facility] TB2 Ag minus Nil 0.00 IU/mL 02/27/20 13:45 EDT [facility] Blood VENOUS BLOOD / Unknown 02/23/2024 13:40 EDT 02/27/2024 12:40 EDT us Provider Outr Resulting Lab IMMUNOLOGY AND SEROL OGY ORDERABLES Final Result Performing Organization Address [facility] Co de Phone Number [facility] [address] [place] [address] * QUANTIFERON MITOGEN (PERFORMABLE) (02/23/2024 13:40 EDT) Blood VENOUS BLOOD / Unknown 02/23/2024 13:40 EDT 02/24/2024 17:50 EDT us Provider Outr Resulting Lab IMMUNOLOGY AND SEROL OGY ORDERABLES Final Result Performing Organization Address [facility] Co de Phone Number [facility] [address] [place] [address] * QUANTIFERON TB2 (PERFORMABLE) (02/23/2024 13:40 EDT) Blood VENOUS BLOOD / Unknown 02/23/2024 13:40 EDT 02/24/2024 17:50 EDT us Provider Outr Resulting Lab IMMUNOLOGY AND SEROL OGY ORDERABLES Final Result Performing Organization Address [facility] Co de Phone Number [facility] [address] [place] [address] * QUANTIFERON TB1 (PERFORMABLE) (02/23/2024 13:40 EDT) Blood VENOUS BLOOD / Unknown 02/23/2024 13:40 EDT 02/24/2024 17:50 EDT us Provider Outr Resulting Lab IMMUNOLOGY AND SEROL OGY ORDERABLES Final Result Performing Organization Address City/[facility]/ZIP Co de Phone Number [facility] [address] [place], [place] [address] * QUANTIFERON NIL (PERFORMABLE) (02/23/2024 13:40 EDT) Blood VENOUS BLOOD / Unknown 02/23/2024 13:40 EDT 02/24/2024 17:50 EDT us Provider Outr Resulting Lab IMMUNOLOGY AND SEROL OGY ORDERABLES Final Result Performing Organization Address City/[facility]/ZIP Co de Phone Number [facility] [address] [place], [place] [phone] documented in this encounter Visit Diagnoses Not on filedocumented in this encounter Care Teams Putty Mixer Relationship Specialty Start Date End Date Unknown, Provider, PCP - General 11/19/23 documented as of this encounter
--- OUTSIDE RECORDS SUMMARY | 2024-05-14 11:36 | XMS_ITS | Encounter Summary ---
Author Organization [facility] Address [facility] [place] [address] Care Team Providers Care Byproducts Extractor Name Role Phone Unavailable Primary Care Provider Unavailabl e Encounter Details Date Type Department Care Team (Late st Contact Info) Description 03/01/2024 Telephone Dermatology at [facility] [address] [place] [address] Rama Justice MD [facility] DR [address] [place] [address] Social History Tobacco Use Types Packs/Day Years [...] [facility] [address] [place] [address] Rama Justice MD [facility] DR ANN [place] [address] documented as of this encounter Visit Diagnoses Not on filedocumented in this encounter
--- OUTSIDE RECORDS SUMMARY | 2024-05-14 11:36 | XMS_ITS | Clinical Summary ---
Author Organization [facility] Address [facility] [place] [address] Care Team Providers Care Agricultural Scientist Name Role Phone Unavailable Primary Care [...] Team Description 03/06/2024 Specialty [place] [phone] Basilio Rausch CPHT 03/06/2024 Telephone Dermatology at [facility] [address] [place] [address] Rama Justice MD 03/05/2024 Telephone Dermatology at [facility] [address] [place] [address] Rama Justice MD 03/01/2024 [facility] [address] [place] [address] Rama Justice MD 02/28/2024 [facility] [address] [place] [address] Rama Justice MD 02/28/2024 [facility] [address] [place] [address] Rama Justice MD 02/24/2024 Transcribe Orders Dermatology at [facility] [address] [place] [address] Rama Justice MD Hidradenitis suppurativa; High risk medication use 02/23/2024 Telephone Dermatology at [facility] [address] [place] [address] Rama Justice MD 02/14/2024 11:00 AM EDT Office Visit Dermatology at [facility] [address] [place] [address] Rama Justice MD Hidradenitis suppurativa; Intertrigo from [...] 9:30 AM EST Office Visit Dermatology at [facility] [address] [place] [phone] Rama Justice MD [facility] [address] ROMANO[facility] [address] Health Maintenance Due Date Last Done Comments [...]
--- OUTSIDE RECORDS SUMMARY | 2024-05-14 11:36 | XMS_ITS | Encounter Summary ---
Author Organization [facility] Address [facility] [place] [address] Care Team Providers Care Shank Sorter Name Role Phone Unavailable Primary Care Provider Unavailabl e Encounter Details Date Type Department Care Team (Late st Contact Info) Description 02/28/2024 Telephone Dermatology at [facility] [address] [place] [address] Rama Justice MD [facility] DR ANN MARIE [place] [address] Social History Tobacco Use Types [...] call from Faith at the [facility] where Nilam Dyer lives. She was wondering if the labs that Dr. Justice needs could be drawn at their facility and if we can fax over the orders? The fax # is [phone]. If anything further is needed their phone number is [phone] (ask for Faith) documented in this encounter Plan of Treatment Upcoming Encounters Date Type Department Care Team (Late st Contact Info) Description 05/29/2024 9:30 AM EST Office Visit Dermatology at [facility] [address] [place] [address] Rama Justice MD [facility] DR [address] MAR[address] [place] [address] documented as of this encounter Visit Diagnoses Not on filedocumented in this encounter
--- OUTSIDE RECORDS SUMMARY | 2024-05-14 11:36 | XMS_ITS | Encounter Summary ---
Author Organization [facility] Address [facility] [place] [address] Care Team Providers Care Manager User Interface Name Role Phone Unavailable Primary Care Provider Unavailabl e Encounter Details Date Type Department Care Team (Latest Contact Info) Description 02/24/2024 Transcribe Orders Dermatology at [facility] [address] [place] [address] Rama Justice MD [facility] [place] [address] Hidradenitis suppurativa; High risk medication use Social [...] 9:30 AM EST Office Visit Dermatology at [facility] [address] [place] [address] Rama Justice MD [facility] [place] [address] Scheduled Orders Name Type Priority Associated Diagnoses [...]
--- OUTSIDE RECORDS SUMMARY | 2024-05-14 11:36 | XMS_ITS | Encounter Summary ---
Author Organization [facility] Address [facility] [place] [address] Care Team Providers Care Paralegal Internship Name Role Phone Unavailable Primary Care Provider Unavailabl e Encounter Details Date Type Department Care Team (Late st Contact Info) Description 11/11/2023 Ancillary Procedure Radiology Library at [facility] [place] [address] Morgan Beauchamp MD [facility] [place] [address] Social History Tobacco Use Types Packs/Day Years [...] 9:30 AM EST Office Visit Dermatology at [facility] [address] [place] [address] Rama Justice MD [facility] DR [address] MARIE [place] [address] documented as of this encounter Procedures Procedure Name Priority Date/Time Associated Diagnosis Comments FILM LIBRARY STORAGE ONLY NUCLEAR MEDICINE Routine 11/11/2023 12:00 AM EDT documented in this encounter Results * Film Library- Storage Only nuclear medicine (11/11/2023 12:00 AM EDT) Narrative [facility] - 11/15/2023 9:11 AM EDT This exam is auto-finalizing. It's purpose is for storage only. Morgan Beauchamp MD [facility] FILM LIBRARY ORD ERABLES Performing Organization Address City/State/[facility] Co de Phone Number [place], [place] documented in this encounter Visit Diagnoses Not on filedocumented in this encounter
--- OUTSIDE RECORDS SUMMARY | 2024-05-14 11:36 | XMS_ITS | Encounter Summary ---
Author Organization [facility] Address [address] [place] [address] Care Team Providers Care Patient Escort Name Role Phone Unknown, Provider Primary Care Provider Unava ilable Encounter Details Date Type Department Care Team (Late st Contact Info) Description 10/17/2023 Lab Requisition [facility] Pathology & Laboratory Medicine - [address] [id number] Outr Resulting Lab, Provider Social History Tobacco [...] 275 - 295 mOsm/kg 10/17/2023 16:57 EDT [facility] Blood VENOUS BLOOD / Unknown 10/16/2023 13:39 EDT 10/17/2023 16:27 EDT us Provider Outr Resulting Lab CHEMISTRY & BLOOD GA S ORDERABLES Final Result [facility] [address] [place], [place] [address] documented in this encounter Visit Diagnoses Not on filedocumented in this encounter Care Teams Patient Escort Relationship Specialty Start Date End Date Unknown, Provider, PCP - General 11/19/23 documented as of this encounter
--- OUTSIDE RECORDS SUMMARY | 2024-05-14 11:36 | XMS_ITS | Encounter Summary ---
Author Organization [facility] Address [facility] [place] [address] Care Team Providers Care Dog Control Officer Name Role Phone Unavailable Primary Care Provider Unavailabl e Reason for Visit * Reason Comments Prior Authorization Cosentyx Sensoready Pens. 150mg/mL x 2 Encounter Details Date Type Department Care Team (Late st Contact Info) Description 03/06/2024 Specialty [place] [address] Basilio Rausch CPHT Social History Tobacco Use [...] MG/2 PENS (150 MG/ML) SUBCUTANEOUS Medication ID: [id number] Approval Dates: 06/20/2023 to 08/27/2024 Insurance requirements/notes: None Other Notes: None Case/Reference #: Approval notification Received via: Telephone Copay: $0.00 Copay assistance: None Copay Notes: Insurance mandated Pharmacy: [facility]: Yes Patient Notified: To be contacted by [facility] for consult Pharmacy staff will be reaching out to the patient to inform them of their medication's approval byadventhealth insurance. If applicable, a pharmacist will speak [...] [facility] [address] [place] [address] Rama Justice MD [facility] DR [address] MAR[address] [place] [address] documented as of this encounter Visit Diagnoses Not on filedocumented in this encounter
--- OUTSIDE RECORDS SUMMARY | 2024-05-14 11:36 | XMS_ITS | Encounter Summary ---
Author Organization [facility] Address [facility] [place] [address] Care Team Providers Care Fill Plant Operator Name Role Phone Unavailable Primary Care Provider Unavailabl e Encounter Details Date Type Department Care Team (Late st Contact Info) Description 03/06/2024 Telephone Dermatology at [facility] [address] [place] [phone] Rama Justice MD [facility] DR [address] [place] [address] Social History Tobacco Use Types Packs/Day Years [...] 8:30 AM. Placed a call to the correction of Nilam. Spoke with JANET Martinez and [...] # is Att: Michelle. There is an PROJECT INTERN that is in the facility that views all orders for Nilma's care. secukinumab 300 mg/2 mL (150 mg/mL) [...] submit a PA? She is in a correction and I do not believe they have [...] at [facility] [address] [place] [address] Rama Justice MD [facility] DR [address] [place] [address] documented as of this encounter Visit Diagnoses Not on filedocumented in this encounter
--- OUTSIDE RECORDS SUMMARY | 2024-05-14 11:36 | XMS_ITS | Encounter Summary ---
Author Organization [facility] Address [facility] [place] [address] Care Team Providers Care Information Broker Name Role Phone Unavailable Primary Care Provider Unavailabl e Encounter Details Date Type Department Care Team (Late st Contact Info) Description 02/28/2024 Telephone Dermatology at [facility] [address] [place] [address] Rama Justice MD [facility] DR [address] MAR[address] [place] [address] Social History Tobacco Use Types Packs/Day Years [...] resides at the [facility]. Faith mentioned they can see some labs have been done at the [facility]. We have not received any labs [...] the results faxed to the office @ [phone]. Faxed lab orders today @ 2:48 PM to [facility] where Nilam resides fax # and phone # is phone number is [phone] Quant Gold Hep C Antibody Hep B Core Antibody Hep B Surface Antibody Hep B Surface Antigen documented in this encounter Plan of Treatment Upcoming Encounters Date Type Department Care Team (Late st Contact Info) Description 05/29/2024 9:30 AM EST Office Visit Dermatology at [facility] [address] [place] [address] Rama Justice MD [facility] DR [address] MAR[address] [place] [address] documented as of this encounter Visit Diagnoses Not on filedocumented in this encounter
--- OUTSIDE RECORDS SUMMARY | 2024-05-14 11:36 | XMS_ITS | Encounter Summary ---
Author Organization [facility] Address [facility] [place] [address] Care Team Providers Care Machine Binder Stripper Name Role Phone Unavailable Primary Care Provider Unavailabl e Encounter Details Date Type Department Care Team (Late st Contact Info) Description 11/29/2023 2:20 AM EDT Ancillary Procedure Radiology Library at [facility] [place] [address] Efraín Deras MD [facility] [place] [address] Social History Tobacco Use Types Packs/Day Years [...] 9:30 AM EST Office Visit Dermatology at [place] [address] [place] [address] Rama Justice MD [facility] [address] [place] [address] documented as of this encounter Procedures Procedure Name Priority Date/Time Associated Diagnosis Comments FILM LIBRARY STORAGE ONLY CT CHEST ABDOMEN PELVIS Routine 11/29/2023 2:17 AM EDT documented in this encounter Results * Film Library- Storage Only CT Chest Abdomen Pelvis (11/29/2023 2:17 AM EDT) Narrative [facility] - 11/29/2023 2:17 AM EDT This exam is auto-finalizing. It's purpose is for storage only. Efraín Deras MD [facility] FILM LIBRARY ORD ERABLES Performing Organization Address City/State/[facility] Co de Phone Number [place], [place] documented in this encounter Visit Diagnoses Not on filedocumented in this encounter
--- OUTSIDE RECORDS SUMMARY | 2024-05-14 11:36 | XMS_ITS | Encounter Summary ---
Author Organization [facility] Address [facility] [place] [address] Care Team Providers Care Coloring Checker Name Role Phone Unavailable Primary Care Provider [...] 9:30 AM EST Office Visit Dermatology at [facility] [address] [place] [address] Rama Justice MD [facility] DR [address] MAR[address] [place] [address] documented as of this encounter Visit Diagnoses Not on filedocumented in this encounter
--- OUTSIDE RECORDS SUMMARY | 2024-05-14 11:36 | XMS_ITS | Encounter Summary ---
Author Organization [facility] Address [facility] [place] [address] Care Team Providers Care Roads And Parking Lots Sweeper Operator Name Role Phone Unavailable Primary Care Provider Unavailabl e Encounter Details Date Type Department Care Team (Late st Contact Info) Description 03/05/2024 Telephone Dermatology at [facility] [address] [place] [address] Rama Justice MD [facility] [address] [place] [address] Social History Tobacco Use Types [...] 9:30 AM EST Office Visit Dermatology at [facility] [address] [place] [address] Rama Justice MD [facility] DR [address] [place] [address] documented as of this encounter Visit Diagnoses Not on filedocumented in this encounter
--- OUTSIDE RECORDS SUMMARY | 2024-05-14 11:36 | XMS_ITS | Encounter Summary ---
Author Organization [facility] Address [facility] [place] [address] Care Team Providers Care Access Nurse Name Role Phone Unavailable Primary Care Provider Unavailabl e Encounter Details Date Type Department Care Team (Late st Contact Info) Description 11/14/2023 Ancillary Procedure Radiology Library at [facility] [place] [address] Morgan Beauchamp MD [facility] [place] [address] Social History Tobacco Use Types Packs/Day Years [...] at [facility] [address] [place] [address] Rama Justice MD [facility] DR [address] MAR[address] [place] [address] documented as of this encounter Procedures Procedure Name Priority Date/Time Associated Diagnosis Comments FILM LIBRARY STORAGE ONLY CT ABDOMEN Routine 11/14/2023 12:00 AM EDT documented in this encounter Results * Film Library- Storage Only CT Abdomen (11/14/2023 12:00 AM EDT) Narrative [facility] - 11/15/2023 9:10 AM EDT This exam is auto-finalizing. It's purpose is for storage only. Morgan Beauchamp MD IM FILM LIBRARY ORD ERABLES Performing Organization Address City/State/[facility] Co de Phone Number [place], [place] documented in this encounter Visit Diagnoses Not on filedocumented in this encounter
--- OUTSIDE RECORDS SUMMARY | 2024-05-14 11:36 | XMS_ITS | Encounter Summary ---
Author Organization [facility] Address [address] [place] [address] Care Team Providers Care Human Resource Manager Name Role Phone Unknown, Provider Primary Care Provider Unava ilable Encounter Details Date Type Department Care Team (Late st Contact Info) Description 10/17/2023 Lab Requisition [facility] Pathology & Laboratory Medicine - [address] [id number] Outr Resulting Lab, Provider Social History Tobacco [...] 150 - 1,150 mOsm/kg 10/17/2023 16:39 EDT [facility] Urine URINE / Unknown 10/16/2023 1 4:38 EDT 10/17/2023 16:27 EDT us Provider Outr Resulting Lab URINALYSIS ORDERABLE S Final Result [facility] [address] [place], [place] [address] documented in this encounter Visit Diagnoses Not on filedocumented in this encounter Care Teams Human Resource Manager Relationship Specialty Start Date End Date Unknown, Provider, PCP - General 11/19/23 documented as of this encounter
--- OUTSIDE RECORDS SUMMARY | 2024-05-14 11:36 | XMS_ITS | Encounter Summary ---
Author Organization [facility] Address [facility] [place] [address] Care Team Providers Care Licensed Optician Name Role Phone Unavailable Primary Care Provider Unavailabl e Encounter Details Date Type Department Care Team (Late st Contact Info) Description 02/23/2024 Telephone Dermatology at [facility] [address] [place] [address] Rama Justice MD [facility] DR [address] MAR[address] [place] [address] Social History Tobacco Use Types Packs/Day Years [...] I received a call from Martha at [facility] lab in [place], [place] reaching out regarding the specific Hepatitis [...] 9:30 AM EST Office Visit Dermatology at [facility] [address] [place] [address] Rama Justice MD [facility] DR [address] MAR[address] [place] [address] documented as of this encounter Visit Diagnoses Not on filedocumented in this encounter
--- OUTSIDE RECORDS SUMMARY | 2024-05-14 11:36 | XMS_ITS | Encounter Summary ---
Author Organization [facility] Address [facility] [place] [address] Care Team Providers Care Commissioned Security Officer Name Role Phone Unavailable Primary Care Provider Unavailabl e Encounter Details Date Type Department Care Team (Late st Contact Info) Description 02/14/2024 11:00 AM EDT Office Visit Dermatology at [facility] [address] [place] [address] Rama Justice MD [facility] [address] [place] [address] Hidradenitis suppurativa; Intertrigo Social History Tobacco Use [...] history of IBD - Per discussion with [facility] staff, nurse practioner on staff needs paper [...] if still active. - Per discussion with [facility] staff, nurse practioner on staff needs paper prescriptions priorto writing his/her own prescriptions. Provided paper prescriptions for the above medications. Other: N/A RTC: 3 month HS follow up [x]Note routed to patient care secretary []Recall placed in scheduling system []Appointment scheduled at checkout Scribe attestation: DERRICK White has performed the documentation for this encounter in the presence of and acting as a scribe for Rama Justice MD. I performed the above scribed service and agree with the accuracy of the documentation in this encounter. Reviewed and signed by: Rama Justice MD Dermatology [facility] documented in this encounter Plan of Treatment Upcoming Encounters Date Type Department Care Team (Late st Contact Info) Description 05/29/2024 9:30 AM EST Office Visit Dermatology at [facility] [address] [place] [address] Rama Justcie MD [facility] DR [address] [place] [place] [address] documented as of this encounter Visit Diagnoses Diagnosis Hidradenitis suppurativa Hidradenitis Intertrigo Other specified erythematous condition documented in this encounter
--- OUTSIDE RECORDS SUMMARY | 2024-05-14 11:36 | XMS_ITS | Encounter Summary ---
Author Organization [facility] Address [address] [place] [address] Care Team Providers Care Hand Painter Name Role Phone Unknown, Provider Primary Care Provider Unava ilable Encounter Details Date Type Department Care Team (Late st Contact Info) Description 09/05/2023 Lab Requisition [facility] Pathology & Laboratory Medicine - [address] [address] Outr Resulting Lab, Provider Social History Tobacco [...] 352 mg/dL 09/06/2023 9:[address] [facility] Blood VENOUS BLOOD / Unknown 09/05/2023 6:09 EDT 09/05/2023 16:50 EDT us Provider Outr Resulting Lab CHEMISTRY & BLOOD GA S ORDERABLES Final Result [facility] [address] [place], [place] [address] documented in this encounter Visit Diagnoses Not on filedocumented in this encounter Care Teams Hand Painter Relationship Specialty Start Date End Date Unknown, Provider, PCP - General 11/19/23 documented as of this encounter
--- OUTSIDE RECORDS SUMMARY | 2024-05-14 11:36 | XMS_ITS | Encounter Summary ---
Author Organization [facility] Address [facility] [place] [address] Care Team Providers Care Gear Changer Name Role Phone Unavailable Primary Care Provider Unavailabl e Reason for Referral * Diagnostic Test (Routine) - Pending Review Specialty Diagnoses / Procedures Referred By Silvana taylor Referred To Contact Radiology Diagnoses Acute cholecystitis Procedures IR Cholecystostomy Tube Placement Merissa Oakes PA [facility] [place] [address] [facility] [place] [address] Referral ID Status Reason Start Date Expiration Date Visits Requested Visits Authorized [id number] Pending Review Specialty Service Requested 11/15/2023 05/17/2025 1 1 Reason for Visit * Diagnostic Test (Routine) - Pending Review Specialty Diagnoses / Procedures Referred By Silvana taylor Referred To Contact Radiology Diagnoses Acute cholecystitis Procedures IR Cholecystostomy Tube Placement Merissa Oakes PA [facility] [place] [address] [place] [address] Referral ID Status Reason Start Date Expiration Date Visits Requested Visits Authorized [id number] Pending Review Specialty Service Requested 11/15/2023 05/17/2025 1 1 Encounter Details Date Type Department Care Team (Latest Contact Info) Description 11/16/2023 12:36 PM EDT - 11/16/2023 11:59 PM EDT Hospital En[place] [address] Efraín Teran, [facility] [place] [address] Acute cholecystitis Discharge Disposition: Home Social History [...] any other surface. Always put a registered route associate on the end to keep clean. 11. If you drainage bags starts to have an odor, you can clean the bag after removing it from the tube. Turn the stopcock to off. Put on a registered route associate to the end of the stopcock [...] is during regular office hours, please call [phone]. If it is after regular office hours, or on weekends or holidays, please call [phone] and ask to speak to the Concrete Handler certified low vision therapist for Interventional Radiology. XX You have received [...] Questions Answers Where will study be performed? [facility] Radiology [120] To be scheduled Next available after expected date Reason for exam and clinical history: Suspected acute cholecystitis, down/back procedure from [facility] Is the patient on anticoagulant / [...] 9:30 AM EST Office Visit Dermatology at [facility] [address] [place] [address] Rama Justice MD [facility] DR [address] [place] [address] documented as of this encounter Procedures Procedure [...] Glucose, POC 94 65 - 199 mg/dL [facility] Comment: Supplemental ranges: <140 mg/dL before meals <180 mg/dL all other times of the day Blood 11/16/2023 3:18 PM EDT 11/16/2023 3:18 PM EDT Efraín Teran DO POINT OF CARE TEST O RDERARANDELL [facility] [place] [address] * IR Cholecystostomy Tube Placement (11/16/2023 2:57 [...] the tract was dilated and a 10 Croatian Fr locking pigtail drain was advanced into [...] EDT) Anaerobic Culture No anaerobic organisms isolated [facility] Bile 11/16/2023 2:35 PM EDT 11/16/2023 3:54 PM EDT Comment:Cholecystomy Narrative Resulting Agency Comment Spec In Lab Jose Mendiola MD MICROBIOLOGY - GENER AL ORDERABLES Performing Organization Address City/State/[facility] Co de Phone Number [facility] [place] [phone] * (ABNORMAL) Body Fluid Culture, Aerobic (11/16/2023 2:35 PM EDT) Body Fluid Culture Many Escherichia coli(A) [facility] Gram Stain Few Neutrophils seen Moderate Gram Negative Rods (A) [facility] Organism Escherichia coli(A) [facility] Bile 11/16/2023 2:35 PM [...] AL ORDERABLES Performing Organization Address [facility] Co de Phone Number [facility] [place] [address] * POCT Glucose (11/16/2023 1:35 PM EDT) Glucose, POC 84 65 - 199 mg/dL [facility] Comment: Supplemental ranges: <140 mg/dL before meals <180 mg/dL all other times of the day Blood 11/16/2023 1:35 PM EDT 11/16/2023 1:35 PM EDT Efraín Teran DO POINT OF CARE TEST O RDERABLES Performing Organization Address [facility] Co de Phone Number [facility] [place] [address] documented in this encounter Visit Diagnoses Diagnosis [...]
--- OUTSIDE RECORDS SUMMARY | 2024-05-14 11:36 | XMS_ITS | Encounter Summary ---
Author Organization [facility] [place] [address] Care Team Providers Care Geospatial Information Scientist Name Role Phone Unavailable Primary Care Provider Unavailabl e Reason for Referral * Diagnostic Test (Routine) - Pending Review Specialty Diagnoses / Procedures Referred By Silvana taylor Referred To Contact Radiology Diagnoses Acute cholecystitis Procedures IR Cholecystostomy Tube Placement Merissa Oakes PA [facility] [place] [address] [place] [address] Referral ID Status Reason Start Date Expiration Date Visits Requested Visits Authorized [id number] Pending Review Specialty Service Requested 11/15/2023 05/17/2025 1 1 Encounter Details Date Type Department Care Team (Late st Contact Info) Description 11/15/2023 Orders [place] [address] Merissa Oakes PA [facility] [place] [address] Acute cholecystitis Social History Tobacco [...] Service contacted by Dr. Alexandro Smith at [facility] at 09:10 11/14 regarding the procedure request below. There are no answered order specific questions. History of Present Illness: Per chart review, Nilam Dyer is a 73 y.o. female currently admittedto [facility] for gallstone pancreatitis with rising leukocytosis, positive [...] at [facility] [address] [place] [address] Rama Justice MD [facility] [address] documented as of this encounter Results * [...] the tract was dilated and a 10 Mexican Fr locking pigtail drain was advanced into [...] discharge to return via hospital transfer to [facility], when meets criteria Resident/Fellow: Alvin Harris MD Attending: Dr. Mendiola I, Dr. Medniola, was present throughout the procedure. I was present during the intraservice time as documented by the IR Nurse. ?? Efraín Teran DO IMG IR ORDERABLES documented in this encounter Visit Diagnoses Diagnosis Acute cholecystitis Acute cholecystitis documented in this encounter
--- OUTSIDE RECORDS SUMMARY | 2024-05-14 11:36 | XMS_ITS | Encounter Summary ---
Author Organization Formerly [facility] Address [facility] [place] [address] Care Team Providers Care Head Librarian Name Role Phone Unavailable Primary Care Provider Unavailabl e Encounter Details Date Type Department Care Team (Late st Contact Info) Description 11/11/2023 12:05 AM EDT Ancillary Procedure Radiology Library at [facility] [place] [address] Morgan Beauchamp MD [facility] [place] [address] Social History Tobacco Use Types Packs/Day Years [...] 9:30 AM EST Office Visit [facility]atology at [facility] [address] [place] [address] Rama Justice MD [facility] [address] [place] [address] documented as of this encounter Procedures Procedure Name Priority Date/Time Associated Diagnosis Comments FILM LIBRARY STORAGE ONLY CT ABDOMEN Routine 11/11/2023 12:05 AM EDT documented in this encounter Results * Film Library- Storage Only CT Abdomen (11/11/2023 12:05 AM EDT) Narrative [facility] - 11/15/2023 9:12 AM EDT This exam is auto-finalizing. It's purpose is for storage only. Morgan Beauchamp MD IM FILM LIBRARY ORD ERABLES Performing Organization Address City/State/[facility] Co de Phone Number [place], [place] documented in this encounter Visit Diagnoses Not on filedocumented in this encounter
--- OUTSIDE RECORDS SUMMARY | 2024-05-14 11:36 | XMS_ITS | Encounter Summary ---
Author Organization Formerly [facility] Address [facility] [place] [address] Care Team Providers Care Supervisor Extruding Department Name Role Phone Unavailable Primary Care Provider Unavailabl e Encounter Details Date Type Department Care Team (Late st Contact Info) Description 12/06/2023 Notes [place] [phone] Jose Mendiola MD [facility] [place] [address] Social History Tobacco Use Types Packs/Day Years [...] at [facility] [address] [place] [address] Rama Justice MD [facility] DR [facility] [place] [address] documented as of this encounter Visit Diagnoses Not on filedocumented in this encounter
[2024-05-14 12:00] LABS: Abs Immature Grans 0.06 10^3/uL (0.0-0.06); Absolute Basophil Count 0.03 10^3/uL (0.0-0.2); Absolute Eosinophil Count 0.46 10^3/uL (0.0-0.7); Absolute Lymphocyte Count 1.56 10^3/uL (1.2-3.4); Absolute Monocyte Count 1.01 10^3/uL (0.1-0.8); Absolute Neutrophil Count 13.15 10^3/uL (1.2-6.7); Basophils % 0.2 %; Eosinophils % 2.8 %; HGB 11.7 g/dL (11.2-15.7); Immature Grans % 0.4 %; Lymphocytes % 9.6 %; MCH 26.2 pg (27.0-33.0); MCHC 31.6 % (32.0-36.0); MCV 83 fL (80-95); MPV 9.3 fL (8.0-11.0); Monocytes % 6.2 %; Neutrophils % 80.8 %; Platelet Count 264 10^3/uL (130-400); RBC 4.46 10^6/uL (3.93-5.22); RDW 14.2 % (11.7-14.6); RDW-SD 42.8 fL; WBC 16.27 10^3/uL (4.4-10.8)
--- NOTE | 2024-05-14 12:06 | DI.RAD_ITS ---
Exam(s) XR CHEST 2V PA LATERAL EXAM: XR CHEST 2V PA LATERAL CLINICAL HISTORY: SOB, hypoxia, hx CHF TECHNIQUE: 2D digital imaging was performed of the chest. Two images were obtained. PA and lateral views were obtained. COMPARISON: CR XR CHEST 2V PA LATERAL from 03/16/[address] CHEST WO from 03/22/2024 CR,XR XR CHEST 2V PA LATERAL from 04/28/2024 FINDINGS: The patient is rotated. MEDIASTINUM: Normal. HEART: Normal. PULMONARY VASCULATURE: Normal. LUNGS: No focal consolidating infiltrates are seen. PLEURAL SPACE: No pleural effusion or pneumothorax. BONE:Within normal limits for the patient's age. OTHER FINDINGS:Normal. IMPRESSION: No acute pulmonary findings. No findings to suggest congestive heart failure/fluid overload are seen at this time. DATA REPOSITORY: RADIATION DOSE DELIVERED:
[2024-05-14 12:12] LABS: INR 1.1 (0.9-1.1); Prothrombin Time 10.8 sec (9.1-11.1)
--- NOTE | 2024-05-14 12:33 | W.ED.GENAD ---
Discharge Plan Disposition Patient Disposition: Admit to [facility] Condition: Stable Discharge Details Chief Complaint: RespSymp Clinical Impression: Hypoxia, CHF (congestive heart failure), Poorly controlled type 2 diabetes mellitus with peripheral neuropathy, Edema Primary Care Provider: Angelika Berumen ED Provider: Charmaine Silva Home Meds and New Rx's Prescriptions: No Action Trulicity 0.75 mg/0.5 mL pen injector 0.75 mg subcut QWEEK Patient Comments: on wednesdays per [place] melatonin 3 mg tablet 3 mg PO HS PRN Cosentyx UnoReady Pen 300 mg/2 mL (150 mg/mL) pen injector 300 mg subcut QWEEK magnesium gluconate [Mag-G] 27 mg magnesium (500 mg) tablet 27 mg PO TID benzonatate 100 mg capsule 100 mg PO TID dextromethorphan-guaifenesin [Guaiasorb DM] 10-100 mg/5 mL liquid 10 ml PO Q4H PRN ipratropium bromide 21 mcg (0.03 %) spray,non-aerosol 2 spray intranasal BID-TID PRN (Reason: allergy symptoms) Qty: 30 2RF Rx Instructions: administer into each nostril cholecalciferol (vitamin D3) 1,250 mcg (50,000 unit) capsule 1,250 mcg PO QWEEK atorvastatin 40 mg tablet 40 mg PO HS trazodone 50 mg tablet 50 mg PO QHS acetaminophen 500 mg Tablet 1,000 mg PO TID MDD 3000 mg Qty: 60 0RF docusate sodium [Colace] 100 mg Capsule 100 mg PO DAILY Qty: 30 0RF ferrous sulfate 325 mg (65 mg iron) Tablet 325 mg PO DAILY Qty: 30 0RF pantoprazole 40 mg Tablet,Delayed Release (Dr/Ec) 40 mg PO DAILY@0730 Qty: 10 0RF metformin 500 mg tablet 500 mg PO BIDWMEAL Qty: 60 0RF (DME) lancets [FreeStyle Lancets] 28 gauge misc See Rx Instructions .Route Qty: 100 0RF Rx Instructions: As directed (DME) blood-glucose meter [FreeStyle Lite Meter] Kit See Rx Instructions .Route Qty: 1 0RF Rx Instructions: As directed (DME) FreeStyle Lite Strips Strip See Rx Instructions .Route Qty: 100 0RF Rx Instructions: As directed spironolactone 50 mg tablet 50 mg PO DAILY insulin glargine [Lantus Solostar U-100 Insulin] 100 unit/mL (3 mL) Insulin Pen 25 unit subcut QAM levothyroxine 150 mcg tablet 150 mcg PO HS furosemide 40 mg Tablet 40 mg PO BID@0830,1600 Qty: 60 0RF insulin aspart U-100 100 unit/mL (3 mL) insulin pen 1 sliding scale dose SUBCUT TID Rx Instructions: see sliding scale polyethylene glycol 3350 [ClearLax] 17 gram/dose powder 17 g PO DAILY insulin glargine [Lantus Solostar U-100 Insulin] 100 unit/mL (3 mL) Insulin Pen 40 unit subcut HS calcium carbonate [Calcium 500] 500 mg calcium (1,250 mg) tablet,chewable 1,000 mg PO ONCE PRN Rx Instructions: 2 tabs Q3H HPI General Mode of arrival: ambulatory. Date/Time Provider Initiated Documentation: 05/14/24 11:24. Limitations to Documentation: no limitations. Information obtained by: patient and old records reviewed. HPI Narrative: HPI: This is a 73-year-old female patient with a past medical history significant for CHF, type 2 diabetes, anemia, who is presenting for evaluation of shortness of breath and hypoxia. She reports that her work of breathing has been quite poor for some time, and she has undergone significant workup in the outpatient environment in an attempt to determine the cause of her shortness of breath. She does not typically wear oxygen at home but yesterday she was started on oxygen given a low SpO2. She was evaluated at the pulmonology office today, who noted bibasilar crackles, and our concern for fluid overload in the setting of her known CHF. She was sent here by ambulance for further workup and management. The patient reports that she has not had fever, but has noted a cough that is productive of white sputum. She has not had any runny or stuffy nose. Has not noted any chest pain or abdominal pain. Has been taking all of her medications at home, including her furosemide and endorses normal urine output. Exam: Gen: Awake and alert, in no apparent distress HEENT: Non-icteric sclera Neck: Supple Lungs: No apparent respiratory distress, normal respiratory effort. The patient does have bibasilar crackles, but no wheezing, rhonchi, rales. She is noted to be hypoxic with exertion despite 2 L of supplemental O2 down to the high 80%'s. CV: Appears well perfused, heart with regular rate and rhythm, strong distal pulses Abdomen: Non-distended, soft, nontender MSK: Moves 4 extremities without apparent limitation in ROM. The patient has 1+ peripheral edema, symmetrical bilaterally with no unilateral calf swelling or tenderness Skin: Visualized skin without rashes, cyanosis. Neuro: Normal Gait, no obvious focal deficits or facial asymmetry. Speaks in full, clear sentences. Psych: Appropriate for situation. MDM: This is a 73-year-old female patient presenting for evaluation of shortness of breath and hypoxia with new oxygen requirement. My differential includes but is not limited to fluid overload, CHF exacerbation, pneumonia, URI. I considered ACS and arrhythmia though this is less consistent with the patient's history and physical examination. Certainly considered metabolic and electrolyte derangements, kidney injury, liver dysfunction. Considered pneumothorax, reactive airway disease exacerbation, though these are less consistent with the patient's physical exam. We will continue to titrate the patient's oxygen to maintain saturations. I will obtain an EKG, chest x-ray, and laboratory studies to include Fluvid, CBC, CMP, troponin, BNP. ED Course: I reviewed the patient's laboratory studies, which reveal leukocytosis to 16 which has been gradually uptrending for the last few weeks. No anemia or thrombocytopenia. Chemistry panel is without significant electrolyte derangements or evidence of kidney dysfunction, though she does have hyperglycemia to 424. No evidence of liver disease dysfunction, troponin is low at 4 and given her lack of chest pain does not require recheck. COVID and influenza testing was negative, and her BNP is very low, 231. I reviewed the patient's chest x-ray which does not show any abnormalities to account for her symptoms. Her bedside echo did not show any evidence of B-lines to suggest pulmonary edema though she does have a plethoric IVC and moderately reduced ejection fraction. Given the lack of clear evidence of fluid overload, her ongoing hypoxia and tachypnea, and her lack of fever to suggest significant infectious pathology, I do believe that further workup is warranted to evaluate for other causes of hypoxia. For this reason I did obtain a CT pulmonary embolism study, which shows no evidence of embolism. She did have bibasilar consolidations which may represent atelectasis or infection per radiology. Given the leukocytosis, I did provide her with a dose of azithromycin for atypicals coverage. I reached out to the hospitalist given the patient's ongoing new oxygen requirement 2 is graciously accepted her for admission to their service for ongoing workup and management of her work of breathing. While under my care in the department she remained hemodynamically appropriate, and did not have worsening of her respiratory status. She was transferred from our department without incident. Charmaine Silva MD Related Data Home Medications ?Medication ?Instructions ?Recorded ?Confirmed atorvastatin 40 mg tablet 40 mg PO HS 09/04/23 05/14/24 trazodone 50 mg tablet 50 mg PO QHS 09/04/23 05/14/24 acetaminophen 500 mg tablet 1,000 mg (2 x 500 mg) PO TID #60 09/06/23 05/14/24 tabs blood sugar diagnostic (FreeStyle #100 ea 09/06/23 05/14/24 Lite Strips) blood-glucose meter (FreeStyle #1 ea 09/06/23 05/14/24 Lite Meter kit) docusate sodium 100 mg capsule 100 mg PO DAILY #30 caps 09/06/23 05/14/24 (Colace) ferrous sulfate 325 mg (65 mg 325 mg PO DAILY #30 tabs 09/06/23 05/14/24 iron) tablet lancets 28 gauge (FreeStyle #100 ea 09/06/23 05/14/24 Lancets) metformin 500 mg tablet 500 mg PO BIDWMEAL #60 tabs 09/06/23 05/14/24 pantoprazole 40 mg tablet,delayed 40 mg PO DAILY@0730 #10 tabs 09/06/23 05/14/24 release levothyroxine 150 mcg tablet 150 mcg PO HS 10/19/23 05/14/24 furosemide 40 mg tablet 40 mg PO BID@0830,1600 #60 tabs 10/28/23 05/14/24 cholecalciferol (vitamin D3) 1,250 1,250 mcg PO QWEEK 11/28/23 05/14/24 mcg (50,000 unit) capsule insulin aspart U-100 100 unit/mL 1 sliding scale dose subcut TID 11/29/23 05/14/24 (3 mL) subcutaneous pen polyethylene glycol 3350 17 17 g PO DAILY 11/29/23 05/14/24 gram/dose oral powder (ClearLax) benzonatate 100 mg capsule 100 mg PO TID 03/01/24 05/14/24 dextromethorphan-guaifenesin 10 10 ml PO Q4H PRN 03/01/24 05/14/24 mg-100 mg/5 mL oral liquid (Guaiasorb DM) ipratropium bromide 21 mcg (0.03 2 spray intranasal BID-TID PRN 03/01/24 05/14/24 %) nasal spray allergy symptoms #30 mL magnesium gluconate 27 mg 27 mg PO TID 03/01/24 05/14/24 magnesium (500 mg) tablet (Mag-G) dulaglutide 0.75 mg/0.5 mL 0.75 mg subcut QWEEK 03/15/24 05/14/24 subcutaneous pen injector (Trulicity) melatonin 3 mg tablet 3 mg PO HS PRN 03/15/24 05/14/24 secukinumab 300 mg/2 mL (150 300 mg subcut QWEEK 03/15/24 05/14/24 mg/mL) subcutaneous pen injector (Cosentyx UnoReady Pen) calcium carbonate (Calcium 500) 1,000 mg PO ONCE PRN 03/16/24 05/14/24 insulin glargine 100 unit/mL (3 40 unit subcut HS 03/16/24 05/14/24 mL) subcutaneous pen (Lantus Solostar U-100 Insulin) spironolactone 50 mg tablet 50 mg PO DAILY 04/28/24 05/14/24 insulin glargine 100 unit/mL (3 25 unit subcut QA 05/14/24 05/14/24 mL) subcutaneous pen (Lantus Solostar U-100 Insulin) Previous Rx's ?Medication ?Instructions ?Recorded acetaminophen 500 mg tablet 1,000 mg (2 x 500 mg) PO TID #60 09/06/23 tabs blood sugar diagnostic (FreeStyle #100 ea 09/06/23 Lite Strips) blood-glucose meter (FreeStyle #1 ea 09/06/23 Lite Meter kit) docusate sodium 100 mg capsule 100 mg PO DAILY #30 caps 09/06/23 (Colace) ferrous sulfate 325 mg (65 mg 325 mg PO DAILY #30 tabs 09/06/23 iron) tablet lancets 28 gauge (FreeStyle #100 ea 09/06/23 Lancets) metformin 500 mg tablet 500 mg PO BIDWMEAL #60 tabs 09/06/23 pantoprazole 40 mg tablet,delayed 40 mg PO DAILY@0730 #10 tabs 09/06/23 release furosemide 40 mg tablet 40 mg PO BID@0830,1600 #60 tabs 10/28/23 ipratropium bromide 21 mcg (0.03 2 spray intranasal BID-TID PRN 03/01/24 %) nasal spray allergy symptoms #30 mL Allergies Allergy/AdvReac Type Severity Reaction Status Date / Time No Known Allergies Allergy Verified 05/14/24 11:21 General Stated Complaint: RespSymp TRINIDAD: 3 Course Vital Signs Vital signs: Vital Signs Pulse Oximetry 90 L 05/14/24 11:18 Temperature 36.4 C 05/14/24 11:25 Temperature Source Oral 05/14/24 11:25 Pulse 88 05/14/24 11:54 Pulse 93 H 05/14/24 11:50 Respiratory Rate 30 H 05/14/24 11:50 Respiratory Effort Short of Breath 05/14/24 11:31 Respiratory Depth Normal 05/14/24 11:31 Blood Pressure 133/64 05/14/24 11:54 Blood Pressure Mean 80 05/14/24 11:54 Blood Pressure Position Supine 05/14/24 11:22 Pulse Oximetry 93 05/14/24 11:50 Oxygen Delivery Method Nasal Cannula 05/14/24 11:25 Oxygen Flow Rate 2 05/14/24 11:25 Pain Level 7 05/14/24 11:25 Comment legs, baseline 05/14/24 11:22 Lab/Test Results Lab/Test Results: Laboratory Tests Range/Units 05/14/24 11:50 WBC (4.4-10.8) 10^3/uL 16.27 H RBC (3.93-5.22) 10^6/uL 4.46 Hgb (11.2-15.7) g/dL 11.7 Hct (36.0-46.0) % 37.0 MCV (80-95) fL 83 MCH (27.0-33.0) pg 26.2 L MCHC (32.0-36.0) % 31.6 L RDW (11.7-14.6) % 14.2 Plt Count (130-400) 10^3/uL 264 MPV (8.0-11.0) fL 9.3 Immature Gran % % 0.4 Neutrophils % % 80.8 Lymphocytes % % 9.6 Monocytes % % 6.2 Eosinophils % % 2.8 Basophils % % 0.2 Nucleated RBC % (0.0-0.3) % 0.0 Absolute Neutrophils (1.2-6.7) 10^3/uL 13.15 H Absolute Lymphocytes (1.2-3.4) 10^3/uL 1.56 Absolute Monocytes (0.1-0.8) 10^3/uL 1.01 H Absolute Eosinophils (0.0-0.7) 10^3/uL 0.46 Absolute Basophils (0.0-0.2) 10^3/uL 0.03 PT (9.1-11.1) sec 10.8 INR (0.9-1.1) 1.1 Medical Decision Making Quality:SDOH Health Related Social Needs: Health related social needs details From [facility] All Active Problems (Updated 05/14/24 @ 15:09 by Charmaine Silva MD) Hypoxia (Acute) Discharge planning issues (Acute) CHF (congestive heart failure) (Chronic) 2020, pt. 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 (Acute) Nail dystrophy (Acute) Onychomycosis (Acute) Edema (Acute) Type 2 diabetes mellitus with peripheral neuropathy (Acute) Paresthesias (Acute) Anemia in chronic illness (Acute) Transaminitis (Acute) Obesity (Chronic) Unstageable pressure ulcer of right heel (Acute) Poorly controlled type 2 diabetes mellitus with peripheral neuropathy (Acute) Low serum iron (Acute) Lumbar back pain with radiculopathy affecting right lower extremity (Acute) Ambulatory dysfunction (Acute) Weakness (Acute) Medical History Cholecystitis Constipation Hypothyroid Gram-negative bacteremia Pleural effusion, left Hyperglycemia due to type 2 diabetes mellitus Palliative care patient Physician orders for life-sustaining treatment (POLST) form indicates patient wish for [id number] status ACP (advance care planning) Urinary tract infection Stroke Diabetes CHF (congestive heart failure) 2020, pt. denies any deficits now Surgical History S/P cholecystectomy History of ERCP S/P tonsillectomy Family History (Updated 03/01/24 @ 10:33 by Una Alexander) Mother Cancer Social History Smoking/Tobacco Use Status: Never Smoking risk assessment performed?: Yes Alcohol Intake: never Drug use: Never Substance use type: does not use Housing: retirement What is your relationship status?: Panel score (0-1 are the most socially isolated patients): 0 Do you feel safe at home: Yes Do you feel safe in your relationship?: Yes Additional Social history: PT RESIDES AT [facility] Exam (ED) Limited Cardiac Exam REASON FOR EXAM: Dyspnea and Hypoxia VISUALIZED STRUCTURES: Four Chambers, Left atrium, Left ventricle, Right atrium, Right ventricle, IVC and Other structure: Lungs VIEW OBTAINED: Apical 4-Chamber, Parasternal long-axis, Parasternal short-axis, Subxiphoid and Other (b/l lungs) PERTINENT FINDINGS/IMPRESSION: LV dysfunction, Plethoric IVC and Other No B-lines ; No pericardial effusion Exam complete
[2024-05-14 12:39] LABS: ALT 14 U/L (14-59); AST 8 U/L (15-37); Albumin 2.9 g/dL (3.4-5.0); Alkaline Phosphatase 62 U/L (46-116); Anion Gap 5.5 mmol/L (3-11); BUN 18 mg/dL (7-18); Bilirubin, Total 0.61 mg/dL (0.2-1.0); CO2 30.5 mmol/L (21.0-32.0); CREATININE 1.1 mg/dL (0.55-1.02); Calcium 9.2 mg/dL (8.5-10.1); Chloride 95 mmol/L (98-107); Estimated GFR 52.73 (mL/min/1.73m2); Glucose 424 mg/dL (74-106); Magnesium 1.8 mg/dL (1.8-2.4); NT-proBNP 231 pg/mL (<300); Potassium 4.2 mmol/L (3.5-5.1); Sodium 131 mmol/L (136-145); Total Protein 7.9 g/dL (6.4-8.2); Troponin I 4 ng/L (<or=51)
[2024-05-14] MEDS: Omnipaque 350 MG/ML 100 ML BTL IJ (13:22)
[2024-05-14] MEDS: Normal Saline - Diluent 50 ML VIAL IJ (13:23)
[2024-05-14 13:35] LABS: COVID-19 PCR Negative (Negative); Influenza A PCR Negative (Negative); Influenza B PCR Negative (Negative); RSV PCR Negative (Negative); Source Nasopharynx
--- NOTE | 2024-05-14 13:35 | DI.CT_ITS ---
Exam(s) CT CHEST PE CTA EXAM: CT CHEST PE CTA CLINICAL HISTORY: Hypoxia. TECHNIQUE: Imaging Protocol: Axial CT angiography was performed with multi-slice acquisition and mu lti-planar and/or 3D reconstructions. Computer aided detection (CAD) was utilized. CONTRAST MATERIAL: Intravenous: Omnipaque 350 contrast volume:100 mL COMPARISON: CT CT CHEST WO from 03/22/2024 CR XR CHEST 2V PA LATERAL from 05/14/2024 FINDINGS: Tracheobronchial tree: Patent where visualized. No bronchiectasis. Pulmonary parenchyma: There are small infiltrate seen in the lower lobes posteriorly bilaterally. Th leno may represent atelectasis or pneumonia. No architectural distortion. Pulmonary Arteries: No evidence of filling defect to suggest pulmonary emboli. Mediastinum and Karina: No dominant adenopathy or fluid collection. The esophagus is unremarkable. Visualized thyroid gland: Unremarkable. Pleura: No effusion or pneumothorax. Heart: Mild cardiomegaly. Three vessel coronary artery calcification is present. No pericardial eff usion. Aorta: Thoracic aorta non-dilated. Atherosclerotic calcification is present. No definite evidence of dissection. Upper abdomen: Status post cholecystectomy. Soft tissues: Unremarkable. Bones: Within normal limits for the patient's age. IMPRESSION: 1. No evidence of pulmonary embolism, thoracic aortic dissection or aneurysm. 2. Small infiltrate seen in the lower lobes bilaterally. This may represent atelectasis or pneumonia . RADIATION DOSE DELIVERED: 263.13mGy.cm Total DLP DATA REPOSITORY: All CT scans at this facility are submitted to the National Radiology Data Registry (NRDR) Dose Index Registry (DIR) with the [employer] (ACR). RADIATION OPTIMIZATION: All CT scans at this facility use at least one of these dose optimization te chniques: automated exposure control; mA and/or kV adjustment per patient size (includes targeted exa ms where dose is matched to clinical indication); or iterative reconstruction.
--- NOTE | 2024-05-14 14:52 | W.PM.HP.N ---
Date of service: 05/14/24 Time of Service: 14:52 Assessment and Plan Assessment and plan (1) Acute respiratory failure with hypoxia: Status: Acute Assessment and plan: suspect possible bilateral lower lobe pneumonia add procal ceftriaxone/azithromycin day 1/5 -As per pulmonary function test completed on 03/23/2024, despite no airflow limitation there was appearance of restrictive spirometry -with FEV1 improving by 14% with bronchodilator; this might have represented emphysema, early ILD or pulmonary vascular disease -Negative viral respiratory panel add acapella, IS, scheduled and PRN nebs (2) Pneumonia: Status: Acute Assessment and plan: continue ceftriaxone/azithromycin day 1/5 procal pending strep pneum/legionella urine test ordered sputum culture ordered. RSV/flu/covid pcr negative. (3) Type 2 diabetes mellitus with peripheral neuropathy: Status: Acute Assessment and plan: Patient with history of uncontrolled diabetes mellitus type 2 -diabetic diet with sliding scale coverage ac/hs (4) CHF (congestive heart failure): Status: Chronic Assessment and plan: -No signs and symptoms of acute exacerbation -continue home meds. Qualifiers: Heart failure chronicity: chronic Heart failure type: diastolic Qualified Code(s): I50.32 - Chronic diastolic (congestive) heart failure (5) Discharge planning issues: Status: Acute Assessment and plan: Return to the [facility] when medically stable Discussed with Dr Pillai History of Present Illness History of Present Illness Chief Complaint: shortness of breath PFSH All Active Problems (Updated 05/14/24 @ 17:46 by Elise Love NP) Pneumonia (Acute) Hypoxia (Acute) Discharge planning issues (Acute) Acute respiratory failure with hypoxia (Acute) CHF (congestive heart failure) (Chronic) 2020, pt. 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 (Acute) Nail dystrophy (Acute) Onychomycosis (Acute) Edema (Acute) Type 2 diabetes mellitus with peripheral neuropathy (Acute) Paresthesias (Acute) Anemia in chronic illness (Acute) Transaminitis (Acute) Obesity (Chronic) Unstageable pressure ulcer of right heel (Acute) Poorly controlled type 2 diabetes mellitus with peripheral neuropathy (Acute) Low serum iron (Acute) Lumbar back pain with radiculopathy affecting right lower extremity (Acute) Ambulatory dysfunction (Acute) Weakness (Acute) Medical History Cholecystitis Constipation Hypothyroid Gram-negative bacteremia Pleural effusion, left Hyperglycemia due to type 2 diabetes mellitus Palliative care patient Physician orders for life-sustaining treatment (POLST) form indicates patient wish for [id number] status ACP (advance care planning) Urinary tract infection Stroke Diabetes CHF (congestive heart failure) 2020, pt. denies any deficits now Surgical History S/P cholecystectomy History of ERCP S/P tonsillectomy Family History (Updated 03/01/24 @ 10:33 by Una Alexander) Mother Cancer Social History Smoking/Tobacco Use Status: Never Smoking risk assessment performed?: Yes Alcohol Intake: never Drug use: Never Substance use type: does not use Housing: assisted living facility What is your relationship status?: Panel score (0-1 are the most socially isolated patients): 0 Do you feel safe at home: Yes Do you feel safe in your relationship?: Yes Additional Social history: PT RESIDES AT THE [facility] Allergies and Home Medications Allergies Allergy/AdvReac Type Severity Reaction Status Date / Time No Known Allergies Allergy Verified 05/14/24 11:21 Home Medications ?Medication ?Instructions ?Recorded ?Confirmed ?Type atorvastatin 40 mg tablet 40 mg PO HS 09/04/23 05/14/24 History trazodone 50 mg tablet 50 mg PO QHS 09/04/23 05/14/24 History acetaminophen 500 mg tablet 1,000 mg (2 x 500 mg) PO TID #60 09/06/23 05/14/24 Rx tabs blood sugar diagnostic (FreeStyle #100 ea 09/06/23 05/14/24 Rx Lite Strips) blood-glucose meter (FreeStyle #1 ea 09/06/23 05/14/24 Rx Lite Meter kit) docusate sodium 100 mg capsule 100 mg PO DAILY #30 caps 09/06/23 05/14/24 Rx (Colace) ferrous sulfate 325 mg (65 mg 325 mg PO DAILY #30 tabs 09/06/23 05/14/24 Rx iron) tablet lancets 28 gauge (FreeStyle #100 ea 09/06/23 05/14/24 Rx Lancets) metformin 500 mg tablet 500 mg PO BIDWMEAL #60 tabs 09/06/23 05/14/24 Rx pantoprazole 40 mg tablet,delayed 40 mg PO DAILY@0730 #10 tabs 09/06/23 05/14/24 Rx release levothyroxine 150 mcg tablet 150 mcg PO HS 10/19/23 05/14/24 History furosemide 40 mg tablet 40 mg PO BID@0830,1600 #60 tabs 10/28/23 05/14/24 Rx cholecalciferol (vitamin D3) 1,250 1,250 mcg PO QWEEK 11/28/23 05/14/24 History mcg (50,000 unit) capsule insulin aspart U-100 100 unit/mL 1 sliding scale dose subcut TID 11/29/23 05/14/24 History (3 mL) subcutaneous pen polyethylene glycol 3350 17 17 g PO DAILY 11/29/23 05/14/24 History gram/dose oral powder (ClearLax) benzonatate 100 mg capsule 100 mg PO TID 03/01/24 05/14/24 History dextromethorphan-guaifenesin 10 10 ml PO Q4H PRN 03/01/24 05/14/24 History mg-100 mg/5 mL oral liquid (Guaiasorb DM) ipratropium bromide 21 mcg (0.03 2 spray intranasal BID-TID PRN 03/01/24 05/14/24 Rx %) nasal spray allergy symptoms #30 mL magnesium gluconate 27 mg 27 mg PO TID 03/01/24 05/14/24 History magnesium (500 mg) tablet (Mag-G) dulaglutide 0.75 mg/0.5 mL 0.75 mg subcut QWEEK 03/15/24 05/14/24 History subcutaneous pen injector (Trulicity) melatonin 3 mg tablet 3 mg PO HS PRN 03/15/24 05/14/24 History secukinumab 300 mg/2 mL (150 300 mg subcut QWEEK 03/15/24 05/14/24 History mg/mL) subcutaneous pen injector (Cosentyx UnoReady Pen) calcium carbonate (Calcium 500) 1,000 mg PO ONCE PRN 03/16/24 05/14/24 History insulin glargine 100 unit/mL (3 40 unit subcut HS 03/16/24 05/14/24 History mL) subcutaneous pen (Lantus Solostar U-100 Insulin) spironolactone 50 mg tablet 50 mg PO DAILY 04/28/24 05/14/24 History insulin glargine 100 unit/mL (3 25 unit subcut QAM 05/14/24 05/14/24 History mL) subcutaneous pen (Lantus Solostar U-100 Insulin) Exam Const General: cooperative, comfortable and no acute distress Nutritional Appearance: obese Orientation: alert, awake, oriented to person and oriented to place HENWA Head: normal to inspection and normocephalic Face and sinus: normal facial exam Mouth: oral mucosae normal Resp Effort & Inspection: normal respiratory effort, able to speak in complete sentences and not labored Auscultation: wheezes expiratory wheezes Cardio Rate: regular rate Rhythm: regular rhythm GI Inspection: obesity Palpation: soft Auscultation: normal bowel sounds Skin General skin exam: no rashes or lesions noted Neuro General: patient alert and patient awake Extrem General: edema Results Labs 05/14/24 11:50 05/14/24 11:50 Labs: Laboratory Results - last 24 hr 05/14/24 05/14/24 05/14/24 11:50 12:24 12:55 WBC 16.27 H RBC 4.46 Hgb 11.7 Hct 37.0 MCV 83 MCH 26.2 L MCHC 31.6 L RDW 14.2 Plt Count 264 MPV 9.3 Immature Gran % 0.4 Neutrophils % 80.8 Lymphocytes % 9.6 Monocytes % 6.2 Eosinophils % 2.8 Basophils % 0.2 Nucleated RBC % 0.0 Absolute Neutrophils 13.15 H Absolute Lymphocytes 1.56 Absolute Monocytes 1.01 H Absolute Eosinophils 0.46 Absolute Basophils 0.03 PT 10.8 INR 1.1 Sodium 131 L Potassium 4.2 Chloride 95 L Carbon Dioxide 30.5 Anion Gap 5.5 BUN 18 Creatinine 1.1 H Est GFR (CKD-EPI 2020) 52.73 Glucose 424 H Calcium 9.2 Magnesium 1.8 Total Bilirubin 0.61 AST 8 L ALT 14 Alkaline Phosphatase 62 Troponin I 4 Cancelled NT-Pro-B Natriuret Pep 231 Total Protein 7.9 Albumin 2.9 L COVID-19 Source Nasopharynx SARS-CoV-2 (PCR) Negative Influenza Type A (PCR) Negative Influenza Type B (PCR) Negative RSV (PCR) Negative 05/14/24 14:24 WBC RBC Hgb Hct MCV MCH MCHC RDW Plt Count MPV Immature Gran % Neutrophils % Lymphocytes % Monocytes % Eosinophils % Basophils % Nucleated RBC % Absolute Neutrophils Absolute Lymphocytes Absolute Monocytes Absolute Eosinophils Absolute Basophils PT INR Sodium Potassium Chloride Carbon Dioxide Anion Gap BUN Creatinine Est GFR (CKD-EPI 2020) Glucose Calcium Magnesium Total Bilirubin AST ALT Alkaline Phosphatase Troponin I Cancelled NT-Pro-B Natriuret Pep Total Protein Albumin COVID-19 Source SARS-CoV-2 (PCR) Influenza Type A (PCR) Influenza Type B (PCR) RSV (PCR) Last Vital Signs Temp 36.4 C 05/14/24 11:25 Pulse 88 05/14/24 11:54 Resp 26 H 05/14/24 13:10 BP 133/64 05/14/24 11:54 Pulse Ox 92 05/14/24 13:10 Time Spent Time spent with Patient: 55-74 minutes Time was spent: preparing to see the patient(eg.review tests), obtaining and/or reviewing separately otained hiistory, ordering medications,tests, procedures, indepentently interpreting results, counseling the patient and care coordination
[2024-05-14] MEDS: cefTRIAXone 1 GM/50 ML BAG IVPB (15:14)
--- OUTSIDE RECORDS SUMMARY | 2024-05-14 15:25 | XMS_ITS | Referral Summary ---
Author Organization [facility] Address [address] [place] [address] Care Team Providers Care Pressroom Foreman Name Role Phone Unknown, Provider Primary Care Provider Unava ilable Encounters Date Type Department Care Team Description 02/29/2024 Lab Requisition [facility] [address] [address] Outr Resulting Lab, Provider 02/24/2024 Lab Requisition [facility] [address] [address] Outr Resulting Lab, Provider from Last 3 [...] Negative Negative 02/29/2024 23:10 EDT [facility] Blood VENOUS BLOOD / Unknown 02/29/2024 14:40 EDT 02/29/2024 21:40 EDT us Provider Outr Resulting Lab CHEMISTRY & BLOOD GA S ORDERABLES Final Result Performing Organization Address [facility]/ZIP Co de Phone Number [facility] [address] [place] [address] * HEPATITIS B CORE ANTIBODY (TOTAL) (02/29/2024 14:40 EDT) Pathologist [facility] Hepatitis B Core Ab, Total Negative Negative 02/29/2024 23:13 EDT [facility] Blood VENOUS BLOOD / Unknown 02/29/2024 14:40 EDT 02/29/2024 21:40 EDT us Provider Outr Resulting Lab CHEMISTRY & BLOOD GA S ORDERABLES Final Result Performing Organization Address City/[facility]/ZIP Co de Phone Number [facility] [address] [place] [address] * HEPATITIS B SURFACE ANTIBODY (02/29/2024 14:40 EDT) Pathologist [facility] Hep B Surface Ab, Quantitative <3.1 See Note mIU/mL 02/29/2024 22:30 EDT [facility] Comment: Reference Range for Hep B Surface Ab, Quant: Positive: >= 10.0 mIU/mL Negative: ??< 10.0 mIU/mL Patient is presumed to not be immune to infection with Hepatitis B Virus. Hep B Surface Ab, Qualitative Negative See Note 02/29/2024 22:30 EDT [facility] Comment: Reference Range for Hep B Surface Ab, Qual: Unvaccinated: ??Negative Vaccinated: ??Positive Blood VENOUS BLOOD / Unknown 02/29/2024 14:40 EDT 02/29/2024 21:40 EDT us Provider Outr Resulting Lab CHEMISTRY & BLOOD GA S ORDERABLES Final Result Performing Organization Address [facility] Co de Phone Number [facility] [address] [place] [address] * HEPATITIS B SURFACE ANTIGEN (02/29/2024 14:40 EDT) Hep B Surface Ag Negative Negative 02/29/2024 22:44 EDT [facility] Blood VENOUS BLOOD / Unknown 02/29/2024 14:40 EDT 02/29/2024 21:40 EDT us Provider Outr Resulting Lab CHEMISTRY & BLOOD GA S ORDERABLES Final Result Performing Organization Address [facility] Co de Phone Number [facility] [address] [place] [id number] * QUANTIFERON MITOGEN (PERFORMABLE) (02/23/2024 13:40 EDT) Blood VENOUS BLOOD / Unknown 02/23/2024 13:40 EDT 02/24/2024 17:50 EDT us Provider Outr Resulting Lab IMMUNOLOGY AND SEROL OGY ORDERABLES Final Result Performing Organization Address [facility] Co de Phone Number [facility] [address] [place] [phone] * QUANTIFERON TB2 (PERFORMABLE) (02/23/2024 13:40 EDT) Blood VENOUS BLOOD / Unknown 02/23/2024 13:40 EDT 02/24/2024 17:50 EDT us Provider Outr Resulting Lab IMMUNOLOGY AND SEROL OGY ORDERABLES Final Result Performing Organization Address [facility] Co de Phone Number [facility] [address] [place] [address] * QUANTIFERON TB1 (PERFORMABLE) (02/23/2024 13:40 EDT) Blood VENOUS BLOOD / Unknown 02/23/2024 13:40 EDT 02/24/2024 17:50 EDT us Provider Outr Resulting Lab IMMUNOLOGY AND SEROL OGY ORDERABLES Final Result Performing Organization Address [facility] Co de Phone Number [facility] [address] [place] [phone] * QUANTIFERON NIL (PERFORMABLE) (02/23/2024 13:40 EDT) Blood VENOUS BLOOD / Unknown 02/23/2024 13:40 EDT 02/24/2024 17:50 EDT us Provider Outr Resulting Lab IMMUNOLOGY AND SEROL OGY ORDERABLES Final Result Performing Organization Address [facility] de Phone Number [facility] [address] [place] [phone] * QUANTIFERON INTERPRETATION (PERFORMABLE) (02/23/2024 13:40 EDT) [facility] Quantiferon Interpretation Negative Negative 02/27/2024 13:45 EDT [facility] Comment:No interferon-gamma response to M. tuberculosis antigens was detected. ??Infection with M. tuberculosis is unlikely. A single negative result does not exclude infection with M. tuberculosis. ??In patients at high risk for M. tuberculosis infection, a second test should be considered. TB1 Ag minus Nil 0.01 IU/ml 02/27/20 13:45 EDT [facility] TB2 Ag minus Nil 0.00 IU/mL 02/27/20 13:45 EDT [facility] Blood VENOUS BLOOD / Unknown 02/23/2024 13:40 EDT 02/27/2024 12:40 EDT us Provider Outr Resulting Lab IMMUNOLOGY AND SEROL OGY ORDERABLES Final Result [facility] [address] [place] [address] from Last 3 Months Insurance [address] [address] [facility] MEDICARE MEDICAID [place] [address] [address] [address] Care Teams Pressroom Foreman Relationship Specialty Start Date End Date Unknown, Provider, PCP - General 11/19/23
--- OUTSIDE RECORDS SUMMARY | 2024-05-14 15:25 | XMS_ITS | Encounter Summary ---
Author Organization [facility] Address [address] [place] [address] Care Team Providers Care Assistant Store Manager Sales Name Role Phone Unknown, Provider Primary Care Provider Unava ilable Encounter Details Date Type Department Care Team (Late st Contact Info) Description 02/29/2024 Lab Requisition [facility] - [address] [address] Outr Resulting Lab, Provider Social History Tobacco [...] <3.1 See Note mIU/mL 02/29/2024 22:30 EDT [facility] Comment: Reference Range for Hep B Surface Ab, Quant: Positive: >= 10.0 mIU/mL Negative: ??< 10.0 mIU/mL Patient is presumed to not be immune to infection with Hepatitis B Virus. Hep B Surface Ab, Qualitative Negative See Note 02/29/2024 22:30 EDT [facility] Comment: Reference Range for Hep B Surface Ab, Qual: Unvaccinated: ??Negative Vaccinated: ??Positive Blood VENOUS BLOOD / Unknown 02/29/2024 14:40 EDT 02/29/2024 21:40 EDT us Provider Outr Resulting Lab CHEMISTRY & BLOOD GA S ORDERABLES Final Result [facility] [address] [place] [address] * HEPATITIS B CORE ANTIBODY (TOTAL) (02/29/2024 14:40 EDT) Hepatitis B Core Ab, Total Negative Negative 02/29/2024 23:13 EDT [facility] Blood VENOUS BLOOD / Unknown 02/29/2024 14:40 EDT 02/29/2024 21:40 EDT us Provider Outr Resulting Lab CHEMISTRY & BLOOD GA S ORDERABLES Final Result Performing Organization Address City/[facility]/ZIP Co de Phone Number [facility] [address] [place] [phone] * HEPATITIS B SURFACE ANTIGEN (02/29/2024 14:40 EDT) Hep B Surface Ag Negative Negative 02/29/2024 22:44 EDT [facility] Blood VENOUS BLOOD / Unknown 02/29/2024 14:40 EDT 02/29/2024 21:40 EDT us Provider Outr Resulting Lab CHEMISTRY & BLOOD GA S ORDERABLES Final Result [facility] [address] [place] [address] * HEPATITIS C AB W REFLEX TO HCV RNA BY PCR (02/29/2024 14:40 EDT) Hep C Antibody Negative Negative 02/29/2024 23:10 EDT [facility] Blood VENOUS BLOOD / Unknown 02/29/2024 14:40 EDT 02/29/2024 21:40 EDT us Provider Outr Resulting Lab CHEMISTRY & BLOOD GA S ORDERABLES Final Result [facility] [address] [place], [place] [id number] documented in this encounter Visit Diagnoses Not on filedocumented in this encounter Care Teams Assistant Store Manager Sales Relationship Specialty Start Date End Date Unknown, Provider, PCP - General 11/19/23 documented as of this encounter
--- OUTSIDE RECORDS SUMMARY | 2024-05-14 15:25 | XMS_ITS | Clinical Summary ---
Author Organization [facility] Address [address] [place] [address] Care Team Providers Care Shredding Specialist Name Role Phone Unknown, Provider MD Primary Care Provider Unava ilable Encounters Date Type Department Care Team Description 02/29/2024 Lab Requisition [facility] Pathology & Laboratory [address] [address] Outr Resulting Lab, Provider 02/24/2024 Lab Requisition [facility] Pathology & Laboratory [address] [address] Outr Resulting Lab, Provider from Last 3 [...] RNA BY PCR (02/29/2024 14:40 EDT) Pathologist [facility] Hep C Antibody Negative Negative 02/29/2024 23:10 EDT [facility] Blood VENOUS BLOOD / Unknown 02/29/2024 14:40 EDT 02/29/2024 21:40 EDT us Provider Outr Resulting Lab CHEMISTRY & BLOOD GA S ORDERABLES Final Result [facility] [address] [place] [address] * HEPATITIS B CORE ANTIBODY (TOTAL) (02/29/2024 14:40 EDT) Pathologist [facility] Hepatitis B Core Ab, Total Negative Negative 02/29/2024 23:13 EDT [facility] Blood VENOUS BLOOD / Unknown 02/29/2024 14:40 EDT 02/29/2024 21:40 EDT us Provider Outr Resulting Lab CHEMISTRY & BLOOD GA S ORDERABLES Final Result [facility] [address] [place] [address] * HEPATITIS B SURFACE ANTIBODY (02/29/2024 14:40 EDT) Hep B Surface Ab, Quantitative <3.1 See Note mIU/mL 02/29/2024 22:30 EDT [facility] Comment: Reference Range for Hep B Surface Ab, Quant: Positive: >= 10.0 mIU/mL Negative: ??< 10.0 mIU/mL Patient is presumed to not be immune to infection with Hepatitis B Virus. Hep B Surface Ab, Qualitative Negative See Note 02/29/2024 22:30 EDT [facility] Comment: Reference Range for Hep B Surface Ab, Qual: Unvaccinated: ??Negative Vaccinated: ??Positive Blood VENOUS BLOOD / Unknown 02/29/2024 14:40 EDT 02/29/2024 21:40 EDT us Provider Outr Resulting Lab CHEMISTRY & BLOOD GA S ORDERABLES Final Result Performing Organization Address [facility] Co de Phone Number [facility] [address] [place] [address] * HEPATITIS B SURFACE ANTIGEN (02/29/2024 14:40 EDT) Pathologist [facility] Hep B Surface Ag Negative Negative 02/29/2024 22:44 EDT [facility] Blood VENOUS BLOOD / Unknown 02/29/2024 14:40 EDT 02/29/2024 21:40 EDT us Provider Outr Resulting Lab CHEMISTRY & BLOOD GA S ORDERABLES Final Result [facility] [address] [place] [address] * QUANTIFERON MITOGEN (PERFORMABLE) (02/23/2024 13:40 EDT) Blood VENOUS BLOOD / Unknown 02/23/2024 13:40 EDT 02/24/2024 17:50 EDT us Provider Outr Resulting Lab IMMUNOLOGY AND SEROL OGY ORDERABLES Final Result [facility] [address] [place] [address] * QUANTIFERON TB2 (PERFORMABLE) (02/23/2024 13:40 EDT) Blood VENOUS BLOOD / Unknown 02/23/2024 13:40 EDT 02/24/2024 17:50 EDT us Provider Outr Resulting Lab IMMUNOLOGY AND SEROL OGY ORDERABLES Final Result Performing Organization Address [facility]/ZIP Co de Phone Number [facility] [address] [place] [address] * QUANTIFERON TB1 (PERFORMABLE) (02/23/2024 13:40 EDT) Blood VENOUS BLOOD / Unknown 02/23/2024 13:40 EDT 02/24/2024 17:50 EDT us Provider Outr Resulting Lab IMMUNOLOGY AND SEROL OGY ORDERABLES Final Result Performing Organization Address [facility] de Phone Number [facility] [address] [place] [address] * QUANTIFERON NIL (PERFORMABLE) (02/23/2024 13:40 EDT) Blood VENOUS BLOOD / Unknown 02/23/2024 13:40 EDT 02/24/2024 17:50 EDT us Provider Outr Resulting Lab IMMUNOLOGY AND SEROL OGY ORDERABLES Final Result Performing Organization Address [facility] Co de Phone Number [facility] [address] [place] [address] * QUANTIFERON INTERPRETATION (PERFORMABLE) (02/23/2024 13:40 EDT) [facility] Quantiferon Interpretation Negative Negative 02/27/2024 13:45 EDT [facility] Comment:No interferon-gamma response to M. tuberculosis antigens was detected. ??Infection with M. tuberculosis is unlikely. A single negative result does not exclude infection with M. tuberculosis. ??In patients at high risk for M. tuberculosis infection, a second test should be considered. TB1 Ag minus Nil 0.01 IU/ml 02/27/20 13:45 EDT [facility] TB2 Ag minus Nil 0.00 IU/mL 02/27/20 13:45 EDT [facility] Blood VENOUS BLOOD / Unknown 02/23/2024 13:40 EDT 02/27/2024 12:40 EDT us Provider Outr Resulting Lab IMMUNOLOGY AND SEROL OGY ORDERABLES Final Result [facility] [address] [place] [address] from Last 3 Months Insurance [address] [address] [facility]IC[facility] MEDICAID CO [address] [address] Care Teams Shredding Specialist Relationship Specialty Start Date End Date Unknown, Provider, PCP - General 11/19/23
--- OUTSIDE RECORDS SUMMARY | 2024-05-14 15:26 | XMS_ITS | Encounter Summary ---
Author Organization [facility] Address [facility] [place] [address] Care Team Providers Care Atomic Process Engineer Name Role Phone Unavailable Primary Care Provider Unavailabl e Encounter Details Date Type Department Care Team (Latest Contact Info) Description 02/24/2024 Transcribe Orders Dermatology at [facility] [address] [place] [phone] Rama Justice MD [facility] [place] [address] Hidradenitis suppurativa; High risk medication use Social [...] EST Office Visit Dermatology at [facility] [address] [place] [phone] Rama Justice MD [facility] [place] [address] Scheduled Orders Name Type Priority Associated Diagnoses [...]
--- OUTSIDE RECORDS SUMMARY | 2024-05-14 15:26 | XMS_ITS | Clinical Summary ---
Author Organization [facility] Address [facility] [place] [address] Care Team Providers Care President Commercial Bank Name Role Phone Unavailable Primary Care Provider [...] Team Description 03/06/2024 Specialty [place] [phone] Basilio Rausch CPHT 03/06/2024 Telephone Dermatology at [facility] [address] [place] [address] Rama Justice MD 03/05/2024 Telephone Dermatology at [facility] [address] [place] [address] Rama Justice MD 03/01/2024 [facility] [address] [place] [address] Rama Justice MD 02/28/2024 [facility] [address] [place] [address] Rama Justice MD 02/28/2024 [facility] [address] [place] [address] Rama Justice MD 02/24/2024 Transcribe Orders Dermatology at [facility] [address] [place] [address] Rama Justice MD Hidradenitis suppurativa; High risk medication use 02/23/2024 Telephone [facility] at [facility] [address] [facility] [place] [address] Rama Justice MD 02/14/2024 11:00 AM EDT Office Visit Dermatology at [facility] [address] [place] [address] Rama Justice MD Hidradenitis suppurativa; Intertrigo from [...] 9:30 AM EST Office Visit Dermatology at [facility] [address] [place] [address] Rama Justice MD [facility] [address] [place] [address] Health Maintenance Due Date Last Done Comments [...]
--- OUTSIDE RECORDS SUMMARY | 2024-05-14 15:26 | XMS_ITS | Encounter Summary ---
Author Organization [facility] Address [facility] [place] [address] Care Team Providers Care Bench Machine Operator Name Role Phone Unavailable Primary Care Provider Unavailabl e Reason for Referral * Diagnostic Test (Routine) - Pending Review Specialty Diagnoses / Procedures Referred By Silvana taylor Referred To Contact Radiology Diagnoses Acute cholecystitis Procedures IR Cholecystostomy Tube Placement Merissa Oakes PA [facility] [place] [address] [facility] [place] [address] Referral ID Status Reason Start Date Expiration Date Visits Requested Visits Authorized [id number] Pending Review Specialty Service Requested 11/15/2023 05/17/2025 1 1 Reason for Visit * Diagnostic Test (Routine) - Pending Review Specialty Diagnoses / Procedures Referred By Silvana taylor Referred To Contact Radiology Diagnoses Acute cholecystitis Procedures IR Cholecystostomy Tube Placement Merissa Oakes PA [facility] [place] [address] [place] [address] Referral ID Status Reason Start Date Expiration Date Visits Requested Visits Authorized [id number] Pending Review Specialty Service Requested 11/15/2023 05/17/2025 1 1 Encounter Details Date Type Department Care Team (Latest Contact Info) Description 11/16/2023 12:36 PM EDT - 11/16/2023 11:59 PM EDT Hospital [place] [address] Efraín Teran, [facility] [place] [address] Acute cholecystitis Discharge Disposition: Home Social History [...] any other surface. Always put a credit card specialist on the end to keep clean. 11. If you drainage bags starts to have an odor, you can clean the bag after removing it from the tube. Turn the stopcock to off. Put on a credit card specialist to the end of the stopcock to [...] is during regular office hours, please call [phone]. If it is after regular office hours, or on weekends or holidays, please call [phone] and ask to speak to the Extension Course Coordinator concrete products machine operator for Interventional Radiology. XX You have [...] Questions Answers Where will study be performed? [facility] Radiology [120] To be scheduled Next [...] 9:30 AM EST Office Visit Dermatology at [facility] [address] [place] [address] Rama Justice MD [facility] [address] [place] [address] documented as of this encounter Procedures Procedure [...] O RDERARANDELL [facility] [place] [address] * IR Cholecystostomy Tube Placement (11/16/2023 2:57 [...] the tract was dilated and a 10 Bel[place]ian Fr locking pigtail drain was advanced into [...] - GENER AL ORDERABLES Performing Organization Address City/State/[facility] Co de Phone Number [facility] [place] [phone] * (ABNORMAL) Body Fluid Culture, Aerobic (11/16/2023 [...] AL ORDERABLES Performing Organization Address [facility] Co de Phone Number [facility] [place] [address] * POCT Glucose (11/16/2023 1:35 PM EDT) Glucose, POC 84 65 - 199 mg/dL [facility] Comment: Supplemental ranges: <140 mg/dL before meals <180 mg/dL all other times of the day Blood 11/16/2023 1:35 PM EDT 11/16/2023 1:35 PM EDT Efraín Teran DO POINT OF CARE TEST O RDERABLES Performing Organization Address [facility] Co de Phone Number [facility] [place] [address] documented in this encounter Visit Diagnoses Diagnosis [...]
--- OUTSIDE RECORDS SUMMARY | 2024-05-14 15:26 | XMS_ITS | Encounter Summary ---
Author Organization [facility] Address [address] [place] [address] Care Team Providers Care Bridge Ironworker Name Role Phone Unknown, Provider Primary Care Provider Unava ilable Encounter Details Date Type Department Care Team (Late st Contact Info) Description 10/17/2023 Lab Requisition [facility] Pathology & Laboratory Medicine - [address] [phone] Outr Resulting Lab, Provider Social History Tobacco [...] 150 - 1,150 mOsm/kg 10/17/2023 16:39 EDT [facility] Urine URINE / Unknown 10/16/2023 1 4:38 EDT 10/17/2023 16:27 EDT us Provider Outr Resulting Lab URINALYSIS ORDERABLE S Final Result [facility] [address] [place], [place] [address] documented in this encounter Visit Diagnoses Not on filedocumented in this encounter Care Teams Bridge Ironworker Relationship Specialty Start Date End Date Unknown, Provider, PCP - General 11/19/23 documented as of this encounter
--- OUTSIDE RECORDS SUMMARY | 2024-05-14 15:26 | XMS_ITS | Encounter Summary ---
Author Organization [facility] Address [facility] [place] [address] Care Team Providers Care Neon Light Installer Name Role Phone Unavailable Primary Care Provider Unavailabl e Encounter Details Date Type Department Care Team (Late st Contact Info) Description 11/14/2023 Ancillary Procedure Radiology Library at [facility] [place] [address] Morgan Beauchamp MD [facility] [place] [address] Social History Tobacco Use Types Packs/Day Years [...] 9:30 AM EST Office Visit Dermatology at [facility] [address] [place] [address] Rama Justice MD [facility] [address] [place] [address] documented as of this encounter Procedures Procedure Name Priority Date/Time Associated Diagnosis Comments FILM LIBRARY STORAGE ONLY CT ABDOMEN Routine 11/14/2023 12:00 AM EDT documented in this encounter Results * Film Library- Storage Only CT Abdomen (11/14/2023 12:00 AM EDT) Narrative [facility] - 11/15/2023 9:10 AM EDT This exam is auto-finalizing. It's purpose is for storage only. Morgan Beauchamp MD IM FILM LIBRARY ORD ERABLES Performing Organization Address City/State/[facility] Co de Phone Number [place], [place] documented in this encounter Visit Diagnoses Not on filedocumented in this encounter
--- OUTSIDE RECORDS SUMMARY | 2024-05-14 15:26 | XMS_ITS | Encounter Summary ---
Author Organization [facility] Address [address] [place] [address] Care Team Providers Care Associate Agent Insurance Sales Name Role Phone Unknown, Provider Primary Care Provider Unava ilable Encounter Details Date Type Department Care Team (Late st Contact Info) Description 09/05/2023 Lab Requisition [facility] Pathology & Laboratory Medicine - [address] [phone] Outr Resulting Lab, Provider Social History Tobacco [...] 352 mg/dL 09/06/2023 9:56 EDT [facility] Blood VENOUS BLOOD / Unknown 09/05/2023 6:09 EDT 09/05/2023 16:50 EDT us Provider Outr Resulting Lab CHEMISTRY & BLOOD GA S ORDERABLES Final Result [facility] [address] [place], [place] [address] documented in this encounter Visit Diagnoses Not on filedocumented in this encounter Care Teams Associate Agent Insurance Sales Relationship Specialty Start Date End Date Unknown, Provider, PCP - General 11/19/23 documented as of this encounter
--- OUTSIDE RECORDS SUMMARY | 2024-05-14 15:26 | XMS_ITS | Encounter Summary ---
Author Organization [facility] Address [address] [place] [address] Care Team Providers Care Library Circulation Department Chief Name Role Phone Unknown, Provider MD Primary Care Provider Unava ilable Encounter Details Date Type Department Care Team (Late st Contact Info) Description 11/30/2023 Lab Requisition [facility] Pathology & Laboratory Medicine - [address] [place] [address] Pressure ulcer of right heel, [...] explore management options, if applicable. 12/05/2023 11:34 [facility] Final Diagnosis A. 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 - Acute serositis and adhesions. - Cholelithiasis. - Benign reactive lymph node. 12/05/2023 11:34 [facility] Attestation There was significan t resident/fellow involvement in the diagnostic evaluation of this case. By the signature below, the attending physician certifies that they have personally conducted a gross and/or microscopic examination of the described specimens and rendered or confirmed the above diagnosis. 12/05/2023 11:34 [facility] at [address]4 Clinical History Cholecystitis, S/P cholecystostomy tube insertion 11/16/2023, developed sepsis with WBC 31,000, now open robert 12/05/2023 11:34 [facility] Gross Description A. Received [...] received are several brown-black smooth multifaceted calculi. Multi Slide Machine Tender sections are submitted as follows: BLOCK MARIA A1- cystic duct margin, en face and bisected possible periductal lymph node A2-A6- equal opportunity representative sections gallbladder wall A7- section separately submitted necrotic saccular tissue A8- equal opportunity representative sections separately submitted tissue fragments MELO HILLIARD(ASCP) 11/30/2023 10:55 12/05/2023 11:34 EDT [facility] Resident/Fell ow: Jefry Montez DO 12/05/2023 11:34 EDT [facility] Performing Lab [facility] 12/05/2023 11:34 EDT [facility] Scanned Images 12/05/2023 11:34 EDT [facility] Tissue GALLBLADDER STRUCTURE / Unknown 11/29/2023 14:25 EDT 11/30/2023 8:14 EDT Kirit Tejeda PATHOLOGY ORDERABLES Final Resul t [facility] [address] [place], [place] [address] documented in this encounter Visit Diagnoses Diagnosis Pressure ulcer of right heel, unstageable ([facility]) Hypothyroidism, unspecified Acute cystitis without hematuria Acute cystitis Chronic diastolic (congestive) heart failure ([facility]) Anemia in other chronic diseases classified elsewhere Type 2 diabetes mellitus with hyperglycemia ([facility]) Type II or unspecified type diabetes mellitus without mention of complication, not stated as uncontrolled Type 2 diabetes mellitus with diabetic polyneuropathy ([facility]) Type II or unspecified type diabetes mellitus with neurological manifestations, not stated as uncontrolled Pneumonia, unspecified organism Cholecystitis, unspecified documented in this encounter Care Teams Library Circulation Department Chief Relationship Specialty Start Date End Date Unknown, Provider, PCP - General 11/19/23 documented as of this encounter
--- OUTSIDE RECORDS SUMMARY | 2024-05-14 15:26 | XMS_ITS | Encounter Summary ---
Author Organization [facility] Address [facility] [place] [address] Care Team Providers Care Technical Administrative Assistant Name Role Phone Unavailable Primary Care Provider Unavailabl e Encounter Details Date Type Department Care Team (Late st Contact Info) Description 12/06/2023 [place] [phone] Jose Mendiola MD [facility] [address] [place] [address] Social History Tobacco Use Types Packs/Day Years [...] PLACEMENT 11/16/2023 IR Cholecystostomy Tube Placement 11/16/2023 [facility] RAD Medications: Benzonatate 200 mg [...] Dermatology at [facility] [address] [place] [address] Rama Justice MD [facility] [address] [place] [address] documented as of this encounter Visit Diagnoses Not on filedocumented in this encounter
--- OUTSIDE RECORDS SUMMARY | 2024-05-14 15:26 | XMS_ITS | Encounter Summary ---
Author Organization [facility] Address [facility] [place] [address] Care Team Providers Care Candle Maker Name Role Phone Unavailable Primary Care Provider Unavailabl e Encounter Details Date Type Department Care Team (Late st Contact Info) Description 02/28/2024 Telephone Dermatology at [facility] [address] [place] [phone] Rama Justice MD [facility] [address] [place] [address] Social History Tobacco Use Types Packs/Day Years [...] as she resides at the [facility]. Faith mentioned they can see some labs have been done at the [facility]. We have not received any labs [...] the results faxed to the office @ [phone]. Faxed lab orders today @ 2:48 PM to [facility] where Nilam resides fax # and phone # is phone number is [phone] Quant Gold Hep C Antibody Hep B Core Antibody Hep B Surface Antibody Hep B Surface Antigen documented in this encounter Plan of Treatment Upcoming Encounters Date Type Department Care Team (Late st Contact Info) Description 05/29/2024 9:30 AM EST Office Visit Dermatology at [facility] [address] [place] [address] Rama Justice MD [facility] [address] [place] [address] documented as of this encounter Visit Diagnoses Not on filedocumented in this encounter
--- OUTSIDE RECORDS SUMMARY | 2024-05-14 15:26 | XMS_ITS | Encounter Summary ---
Author Organization [facility] Address [facility] [place] [address] Care Team Providers Care Freight Air Brake Fitter Name Role Phone Unavailable Primary Care Provider Unavailabl e Encounter Details Date Type Department Care Team (Late st Contact Info) Description 02/28/2024 Telephone Dermatology at [facility] [address] [place] [address] Rama Justice MD [facility] [address] [place] [address] Social History Tobacco Use Types [...] over the orders? The fax # is [phone]. If anything further is needed their phone number is [phone] (ask for Faith) documented in this encounter Plan of Treatment Upcoming Encounters Date Type Department Care Team (Late st Contact Info) Description 05/29/2024 9:30 AM EST Office Visit Dermatology at [facility] [address] [place] [address] Rama Justice MD [facility] DR [address] [place] [place] [address] documented as of this encounter Visit Diagnoses Not on filedocumented in this encounter
--- OUTSIDE RECORDS SUMMARY | 2024-05-14 15:26 | XMS_ITS | Encounter Summary ---
Author Organization [facility] Address [facility] [place] [address] Care Team Providers Care Efficiency Clerk Name Role Phone Unavailable Primary Care Provider Unavailabl e Encounter Details Date Type Department Care Team (Late st Contact Info) Description 02/23/2024 Telephone Dermatology at [facility] [address] [place] [address] Rama Justice MD [facility] [address] [place] [address] Social History Tobacco Use Types Packs/Day Years [...] I received a call from Martha at [facility] lab in [place], [place] reaching out regarding the specific Hepatitis [...] [facility] [address] [place] [address] Rama Justice MD [facility] DR [place] [address] documented as of this encounter Visit Diagnoses Not on filedocumented in this encounter
--- OUTSIDE RECORDS SUMMARY | 2024-05-14 15:26 | XMS_ITS | Encounter Summary ---
Author Organization [facility] Address [address] [place] [address] Care Team Providers Care Passenger Train Braker Name Role Phone Unknown, Provider Primary Care Provider Unava ilable Encounter Details Date Type Department Care Team (Late st Contact Info) Description 10/17/2023 Lab Requisition [facility] Pathology & Laboratory Medicine - [address] [address] Outr Resulting Lab, Provider Social History Tobacco [...] 275 - 295 mOsm/kg 10/17/2023 16:57 EDT [facility] Blood VENOUS BLOOD / Unknown 10/16/2023 13:39 EDT 10/17/2023 16:27 EDT us Provider Outr Resulting Lab CHEMISTRY & BLOOD GA S ORDERABLES Final Result [facility] [address] [place], [place] [address] documented in this encounter Visit Diagnoses Not on filedocumented in this encounter Care Teams Passenger Train Braker Relationship Specialty Start Date End Date Unknown, Provider, PCP - General 11/19/23 documented as of this encounter
--- OUTSIDE RECORDS SUMMARY | 2024-05-14 15:26 | XMS_ITS | Encounter Summary ---
Author Organization [facility] Address [facility] [place] [address] Care Team Providers Care Food Inspector Name Role Phone Unavailable Primary Care Provider Unavailabl e Encounter Details Date Type Department Care Team (Late st Contact Info) Description 03/05/2024 Telephone Dermatology at [facility] [address] [place] [address] Rama Justice MD [facility] DR [place] [address] Social History Tobacco Use Types [...] submit a PA? She is in a retirement and I do not believe they have a dermatologsit to submit the prescription. Thank you! documented in this encounter Plan of Treatment Upcoming Encounters Date Type Department Care Team (Late st Contact Info) Description 05/29/2024 9:30 AM EST Office Visit Dermatology at [facility] [address] [place] [address] Rama Justice MD [facility] DR [address] [place] [address] documented as of this encounter Visit Diagnoses Not on filedocumented in this encounter
--- OUTSIDE RECORDS SUMMARY | 2024-05-14 15:26 | XMS_ITS | Encounter Summary ---
Author Organization [facility] Address [facility] [place] [address] Care Team Providers Care Professional Services Specialist Name Role Phone Unavailable Primary Care Provider Unavailabl e Encounter Details Date Type Department Care Team (Late st Contact Info) Description 11/11/2023 Ancillary Procedure Radiology Library at [place] [address] oMrgan Beauchamp MD [facility] [place] [address] Social History Tobacco Use Types Packs/Day Years [...] AM EST Office Visit Dermatology at [facility] [address] [place] [address] Rama Justice MD [facility] DR ANN MAR[place] [address] documented as of this encounter Procedures Procedure Name Priority Date/Time Associated Diagnosis Comments FILM LIBRARY STORAGE ONLY NUCLEAR MEDICINE Routine 11/11/2023 12:00 AM EDT documented in this encounter Results * Film Library- Storage Only nuclear medicine (11/11/2023 12:00 AM EDT) Narrative [facility] - 11/15/2023 9:11 AM EDT This exam is auto-finalizing. It's purpose is for storage only. Morgan Beauchamp MD [facility] FILM LIBRARY ORD ERABLES Performing Organization Address City/State/[facility] Co de Phone Number [place], [place] documented in this encounter Visit Diagnoses Not on filedocumented in this encounter
--- OUTSIDE RECORDS SUMMARY | 2024-05-14 15:26 | XMS_ITS | Encounter Summary ---
Author Organization [facility] [place] [address] Care Team Providers Care Vision Rehabilitation Therapist Name Role Phone Unavailable Primary Care Provider Unavailabl e Reason for Referral * Diagnostic Test (Routine) - Pending Review Specialty Diagnoses / Procedures Referred By Silvana taylor Referred To Contact Radiology Diagnoses Acute cholecystitis Procedures IR Cholecystostomy Tube Placement Merissa Oakes PA [facility] [place] [address] [place] [address] Referral ID Status Reason Start Date Expiration Date Visits Requested Visits Authorized [id number] Pending Review Specialty Service Requested 11/15/2023 05/17/2025 1 1 Encounter Details Date Type Department Care Team (Late st Contact Info) Description 11/15/2023 Orders [place] [address] Merissa Oakes PA [facility] [place] [address] Acute cholecystitis Social History Tobacco [...] contacted by Dr. Alexandro Smith at [facility] at 09:10 11/14 regarding the procedure request below. There are no answered order specific questions. History of Present Illness: Per chart review, Nilam Dyer is a 73 y.o. female currently admittedto [facility] for gallstone pancreatitis with rising leukocytosis, positive [...] 9:30 AM EST Office Visit Dermatology at [facility] [address] [place] [address] Rama Justice MD [facility] DR [address] MAR[address] [place] [address] documented as of this encounter Results * [...] the tract was dilated and a 10 Palauan Fr locking pigtail drain was advanced into [...] to return via hospital transfer to [facility], when meets criteria Resident/Fellow: Alvin Harris MD Attending: Dr. Mendiola I, Dr. Mendiola, was present throughout the procedure. I was present during the intraservice time as documented by the IR Nurse. ?? Efraín Teran DO IMG IR ORDERABLES documented in this encounter Visit Diagnoses Diagnosis Acute cholecystitis Acute cholecystitis documented in this encounter
--- OUTSIDE RECORDS SUMMARY | 2024-05-14 15:26 | XMS_ITS | Encounter Summary ---
Author Organization [facility] Address [facility] [place] [address] Care Team Providers Care Residential Instructor Name Role Phone Unavailable Primary Care Provider Unavailabl e Encounter Details Date Type Department Care Team (Late st Contact Info) Description 02/14/2024 11:00 AM EDT Office Visit Dermatology at [facility] [address] [place] [address] Rama Justice MD [facility] DR ANN MARIE [place] [address] Hidradenitis suppurativa; Intertrigo Social History Tobacco Use [...] month HS follow up [x]Note routed to underground utility locator []Recall placed in scheduling system []Appointment scheduled at checkout Scribe attestation: DERRICK White has performed the documentation for this encounter in the presence of and acting as a scribe for Rama Justice MD. I performed the above scribed service and agree with the accuracy of the documentation in this encounter. Reviewed and signed by: Rmaa Justice MD Dermatology [facility] documented in this encounter Plan of Treatment Upcoming Encounters Date Type Department Care Team (Late st Contact Info) Description 05/29/2024 9:30 AM EST Office Visit Dermatology at [facility] [address] [place] [address] Rama Justice MD [facility] DR ANN MARIE [place] [address] documented as of this encounter Visit Diagnoses Diagnosis Hidradenitis suppurativa Hidradenitis Intertrigo Other specified erythematous condition documented in this encounter
--- OUTSIDE RECORDS SUMMARY | 2024-05-14 15:26 | XMS_ITS | Encounter Summary ---
Author Organization [facility] Address [address] [place] [address] Care Team Providers Care Sharepoint Developer Name Role Phone Unknown, Provider Primary Care Provider Unava ilable Encounter Details Date Type Department Care Team (Late st Contact Info) Description 02/24/2024 Lab Requisition [facility] Pathology & Laboratory Medicine - [address] [address] Outr Resulting Lab, Provider Social History Tobacco [...] Quantiferon Interpretation Negative Negative 02/27/2024 13:45 EDT [facility] Comment:No interferon-gamma response to M. tuberculosis antigens was detected. ??Infection with M. tuberculosis is unlikely. A single negative result does not exclude infection with M. tuberculosis. ??In patients at high risk for M. tuberculosis infection, a second test should be considered. TB1 Ag minus Nil 0.01 IU/ml 02/27/20 13:45 EDT [facility] TB2 Ag minus Nil 0.00 IU/mL 02/27/20 13:45 EDT [facility] Blood VENOUS BLOOD / Unknown 02/23/2024 13:40 EDT 02/27/2024 12:40 EDT us Provider Outr Resulting Lab IMMUNOLOGY AND SEROL OGY ORDERABLES Final Result Performing Organization Address [facility] Co de Phone Number [facility] [address] [place] [address] * QUANTIFERON MITOGEN (PERFORMABLE) (02/23/2024 13:40 EDT) Blood VENOUS BLOOD / Unknown 02/23/2024 13:40 EDT 02/24/2024 17:50 EDT us Provider Outr Resulting Lab IMMUNOLOGY AND SEROL OGY ORDERABLES Final Result Performing Organization Address [facility] Co de Phone Number [facility] [address] [place] [address] * QUANTIFERON TB2 (PERFORMABLE) (02/23/2024 13:40 EDT) Blood VENOUS BLOOD / Unknown 02/23/2024 13:40 EDT 02/24/2024 17:50 EDT us Provider Outr Resulting Lab IMMUNOLOGY AND SEROL OGY ORDERABLES Final Result Performing Organization Address [facility] Co de Phone Number [facility] [address] [place] [address] * QUANTIFERON TB1 (PERFORMABLE) (02/23/2024 13:40 EDT) Blood VENOUS BLOOD / Unknown 02/23/2024 13:40 EDT 02/24/2024 17:50 EDT us Provider Outr Resulting Lab IMMUNOLOGY AND SEROL OGY ORDERABLES Final Result Performing Organization Address City/[facility]/ZIP Co de Phone Number [facility] [address] [place], [place] [address] * QUANTIFERON NIL (PERFORMABLE) (02/23/2024 13:40 EDT) Blood VENOUS BLOOD / Unknown 02/23/2024 13:40 EDT 02/24/2024 17:50 EDT us Provider Outr Resulting Lab IMMUNOLOGY AND SEROL OGY ORDERABLES Final Result Performing Organization Address City/[facility]/ZIP Co de Phone Number [facility] [address] [place], [place] [phone] documented in this encounter Visit Diagnoses Not on filedocumented in this encounter Care Teams Sharepoint Developer Relationship Specialty Start Date End Date Unknown, Provider, PCP - General 11/19/23 documented as of this encounter
--- OUTSIDE RECORDS SUMMARY | 2024-05-14 15:26 | XMS_ITS | Encounter Summary ---
Author Organization [facility] Address [facility] [place] [address] Care Team Providers Care Dye Stand Loader Name Role Phone Unavailable Primary Care Provider Unavailabl e Encounter Details Date Type Department Care Team (Late st Contact Info) Description 11/29/2023 2:20 AM EDT Ancillary Procedure Radiology Library at [facility] [place] [address] Efraín Deras MD [facility] [place] [address] Social History Tobacco Use Types Packs/Day Years [...] 9:30 AM EST Office Visit Dermatology at [place] [address] [place] [address] Rama Justice MD [facility] DR [address] [place] [address] documented as of this encounter Procedures Procedure Name Priority Date/Time Associated Diagnosis Comments FILM LIBRARY STORAGE ONLY CT CHEST ABDOMEN PELVIS Routine 11/29/2023 2:17 AM EDT documented in this encounter Results * Film Library- Storage Only CT Chest Abdomen Pelvis (11/29/2023 2:17 AM EDT) Narrative [facility] - 11/29/2023 2:17 AM EDT This exam is auto-finalizing. It's purpose is for storage only. Efraín Deras MD [facility] FILM LIBRARY ORD ERABLES Performing Organization Address City/State/[facility] Co de Phone Number KE HAYNES [place], [place] documented in this encounter Visit Diagnoses Not on filedocumented in this encounter
--- OUTSIDE RECORDS SUMMARY | 2024-05-14 15:26 | XMS_ITS | Encounter Summary ---
Author Organization [facility] Address [facility] [place] [address] Care Team Providers Care Platform Inspector Name Role Phone Unavailable Primary Care Provider Unavailabl e Encounter Details Date Type Department Care Team (Late st Contact Info) Description 11/11/2023 12:05 AM EDT Ancillary Procedure Radiology Library at [facility] [place] [place] [address] Morgan Beauchamp MD [facility] [place] [address] Social History Tobacco Use Types Packs/Day Years [...] 9:30 AM EST Office Visit Dermatology at [facility] [address] [place] [address] Rama Justice MD [facility] DR [address] MARIE [place] [address] documented as of this encounter Procedures Procedure Name Priority Date/Time Associated Diagnosis Comments FILM LIBRARY STORAGE ONLY CT ABDOMEN Routine 11/11/2023 12:05 AM EDT documented in this encounter Results * Film Library- Storage Only CT Abdomen (11/11/2023 12:05 AM EDT) Narrative [facility] - 11/15/2023 9:12 AM EDT This exam is auto-finalizing. It's purpose is for storage only. Morgan Beauchamp MD IM FILM LIBRARY ORD ERABLES Performing Organization Address City/State/[facility] Co de Phone Number [place], [place] documented in this encounter Visit Diagnoses Not on filedocumented in this encounter
--- OUTSIDE RECORDS SUMMARY | 2024-05-14 15:26 | XMS_ITS | Encounter Summary ---
Author Organization [facility] Address [facility] [place] [address] Care Team Providers Care Operators School Manager Name Role Phone Unavailable Primary Care Provider Unavailabl e Encounter Details Date Type Department Care Team (Late st Contact Info) Description 03/06/2024 Telephone Dermatology at [facility] [address] [place] [phone] Rama Justice MD [facility] DR [address] [place] [address] Social History Tobacco Use Types Packs/Day Years [...] # is Att: Michelle. There is an [employer] EQUIPMENT OPERATOR that is in the facility that views [...] [facility] [address] [place] [address] Rama Justice MD [facility] DR [place] [address] documented as of this encounter Visit Diagnoses Not on filedocumented in this encounter
--- OUTSIDE RECORDS SUMMARY | 2024-05-14 15:26 | XMS_ITS | Encounter Summary ---
Author Organization [facility] Address [facility] [place] [address] Care Team Providers Care Cilnical Scientist Name Role Phone Unavailable Primary Care Provider Unavailabl e Encounter Details Date Type Department Care Team (Late st Contact Info) Description 03/01/2024 Telephone Dermatology at [facility] [address] [place] [address] Rama Justice MD [facility] DR [address] MAR[address] [place] [address] Social History Tobacco Use Types Packs/Day Years [...] at [facility] [address] [place] [address] Rama Justice MD [facility] DR [address] MAR[place] [address] documented as of this encounter Visit Diagnoses Not on filedocumented in this encounter
--- OUTSIDE RECORDS SUMMARY | 2024-05-14 15:26 | XMS_ITS | Encounter Summary ---
Author Organization [facility] Address [facility] [place] [address] Care Team Providers Care Sports Psychologist Name Role Phone Unavailable Primary Care Provider Unavailabl e Reason for Visit * Reason Comments Prior Authorization Cosentyx Sensoready Pens. 150mg/mL x 2 Encounter Details Date Type Department Care Team (Late st Contact Info) Description 03/06/2024 Specialty [place] [address] Basilio Rausch CPHT Social History Tobacco Use [...] MG/2 PENS (150 MG/ML) SUBCUTANEOUS Medication ID: [id number] Approval Dates: 06/20/2023 to 08/27/2024 Insurance requirements/notes: None Other Notes: None Case/Reference #: Approval notification Received via: Telephone Copay: $0.00 Copay assistance: None Copay Notes: Insurance mandated Pharmacy: [facility]: Yes Patient Notified: To be contacted by [facility] for consult Pharmacy staff will be reaching out to the patient to inform them of their [facility]. If applicable, a pharmacist will [...] [facility] [address] [place] [address] Rama Justice MD [facility] DR ANN MARIE [place] [address] documented as of this encounter Visit Diagnoses Not on filedocumented in this encounter
--- OUTSIDE RECORDS SUMMARY | 2024-05-14 15:26 | XMS_ITS | Encounter Summary ---
Author Organization [facility] Address [facility] [place] [address] Care Team Providers Care Glue Size Machine Operator Name Role Phone Unavailable Primary [...] at [facility] [address] [place] [address] Rama Justice MD [facility] DR [place] [address] documented as of this encounter Visit Diagnoses Not on filedocumented in this encounter
--- NOTE | 2024-05-14 16:11 | W.PC.ACHO ---
Registration Status: Primary Language: Preferred Language: ED Information & Data Chief Complaint RespSymp 05/14/24 12:35 Triage Note pt with hx of DM, CHF, on 05/14/24 11:22 new O2, no recent changes to meds, no CP but SOB/CASTANO, ELLIOTT LE edema at baseline, loose cough on arrival, sent by pulmonary clinic for ' fluid overload'. Medical / Surgical History (Last Reviewed 01/12/24 @ 09:40 by Christine Castellano DPM) Constipation Cholecystitis Hypothyroid Gram-negative bacteremia Pleural effusion, left Hyperglycemia due to type 2 diabetes mellitus Urinary tract infection Palliative care patient Physician orders for life-sustaining treatment (POLST) form indicates patient wish for [id number]-[id number] status ACP (advance care planning) Stroke Diabetes (Last Reviewed 01/12/24 @ 09:40 by Christine Castellano DPM) S/P cholecystectomy History of ERCP S/P tonsillectomy Most Recent Vital Signs Temperature 36.8 C 05/14/24 15:48 Temperature Source Oral 05/14/24 11:25 Pulse 89 05/14/24 15:48 Pulse Rhythm Regular 05/14/24 15:48 Pulse 81 05/14/24 15:16 Respiratory Rate 22 05/14/24 15:48 Respiratory Effort Short of Breath, Labored 05/14/24 15:48 Respiratory Depth Shallow 05/14/24 15:48 Respiratory Pattern Tachypnea 05/14/24 15:48 Blood Pressure 120/67 05/14/24 15:48 Blood Pressure Mean 77 05/14/24 15:16 Blood Pressure Position Supine 05/14/24 11:22 Pulse Oximetry 95 05/14/24 15:48 Oxygen Delivery Method Nasal Cannula 05/14/24 15:48 Oxygen Flow Rate 2 05/14/24 15:48 Pain Level 8 05/14/24 15:48 Comment legs, baseline 05/14/24 11:22 Allergies No Known Allergies Allergy (Verified 05/14/24 11:21) Precautions Isolation Standard precaution 05/14/24 11:25 Active Medications Generic Name Dose Route Start Last Admin Trade Name Freq PRN Reason Stop Dose Admin Ceftriaxone Sodium/Dextrose 1 gm in 50 mls @ 100 mls/hr 05/14/24 14:45 05/14/24 15:25 Rocephin IVPB 05/14/24 18:00 Infused Q24H BRENDA Infusion IV IV Catheter Type [Right Saline Lock Forearm] IV Catheter Gauge [Right 18 Forearm] Diet Orders Category Date Time Status Diabetes Consistent CHO/Low Na [DIET] Nutrition 05/14/24 Dinner Active Diagnostics 05/14/24 05/14/24 05/14/24 Range/Units 14:24 12:55 12:24 WBC (4.4-10.8) 10^3/uL RBC (3.93-5.22) 10^6/uL Hgb (11.2-15.7) g/dL Hct (36.0-46.0) % MCV (80-95) fL MCH (27.0-33.0) pg MCHC (32.0-36.0) % RDW (11.7-14.6) % Plt Count (130-400) 10^3/uL MPV (8.0-11.0) fL Immature Gran % % Neutrophils % % Lymphocytes % % Monocytes % % Eosinophils % % Basophils % % Nucleated RBC % (0.0-0.3) % Absolute Neutrophils (1.2-6.7) 10^3/uL Absolute Lymphocytes (1.2-3.4) 10^3/uL Absolute Monocytes (0.1-0.8) 10^3/uL Absolute Eosinophils (0.0-0.7) 10^3/uL Absolute Basophils (0.0-0.2) 10^3/uL PT (9.1-11.1) sec INR (0.9-1.1) Sodium (136-145) mmol/L Potassium (3.5-5.1) mmol/L Chloride (98-107) mmol/L Carbon Dioxide (21.0-32.0) mmol/L Anion Gap (3-11) mmol/L BUN (7-18) mg/dL Creatinine (0.55-1.02) mg/dL Est GFR (CKD-EPI 2020) (mL/min/1.73m2) Glucose (74-106) mg/dL Calcium (8.5-10.1) mg/dL Magnesium (1.8-2.4) mg/dL Total Bilirubin (0.2-1.0) mg/dL AST (15-37) U/L ALT (14-59) U/L Alkaline Phosphatase (46-116) U/L Troponin I Cancelled Cancelled (<or=51) ng/L NT-Pro-B Natriuret Pep (<300) pg/mL Total Protein (6.4-8.2) g/dL Albumin (3.4-5.0) g/dL COVID-19 Source Nasopharynx SARS-CoV-2 (PCR) Negative (Negative) Influenza Type A (PCR) Negative (Negative) Influenza Type B (PCR) Negative (Negative) RSV (PCR) Negative (Negative) 05/14/24 Range/Units 11:50 WBC 16.27 H (4.4-10.8) 10^3/uL RBC 4.46 (3.93-5.22) 10^6/uL Hgb 11.7 (11.2-15.7) g/dL Hct 37.0 (36.0-46.0) % MCV 83 (80-95) fL MCH 26.2 L (27.0-33.0) pg MCHC 31.6 L (32.0-36.0) % RDW 14.2 (11.7-14.6) % Plt Count 264 (130-400) 10^3/uL MPV 9.3 (8.0-11.0) fL Immature Gran % 0.4 % Neutrophils % 80.8 % Lymphocytes % 9.6 % Monocytes % 6.2 % Eosinophils % 2.8 % Basophils % 0.2 % Nucleated RBC % 0.0 (0.0-0.3) % Absolute Neutrophils 13.15 H (1.2-6.7) 10^3/uL Absolute Lymphocytes 1.56 (1.2-3.4) 10^3/uL Absolute Monocytes 1.01 H (0.1-0.8) 10^3/uL Absolute Eosinophils 0.46 (0.0-0.7) 10^3/uL Absolute Basophils 0.03 (0.0-0.2) 10^3/uL PT 10.8 (9.1-11.1) sec INR 1.1 (0.9-1.1) Sodium 131 L (136-145) mmol/L Potassium 4.2 (3.5-5.1) mmol/L Chloride 95 L (98-107) mmol/L Carbon Dioxide 30.5 (21.0-32.0) mmol/L Anion Gap 5.5 (3-11) mmol/L BUN 18 (7-18) mg/dL Creatinine 1.1 H (0.55-1.02) mg/dL Est GFR (CKD-EPI 2020) 52.73 (mL/min/1.73m2) Glucose 424 H (74-106) mg/dL Calcium 9.2 (8.5-10.1) mg/dL Magnesium 1.8 (1.8-2.4) mg/dL Total Bilirubin 0.61 (0.2-1.0) mg/dL AST 8 L (15-37) U/L ALT 14 (14-59) U/L Alkaline Phosphatase 62 (46-116) U/L Troponin I 4 (<or=51) ng/L NT-Pro-B Natriuret Pep 231 (<300) pg/mL Total Protein 7.9 (6.4-8.2) g/dL Albumin 2.9 L (3.4-5.0) g/dL COVID-19 Source SARS-CoV-2 (PCR) (Negative) Influenza Type A (PCR) (Negative) Influenza Type B (PCR) (Negative) RSV (PCR) (Negative) Sodsr-lw-Dqox Documentation Fingerstick Glucose Start: 05/14/24 15:40 Freq: Status: Active Protocol: Activity Type Activity Date Activity User E-sign Co-sign Detail Recorded Client Recorded Date Recorded By Document 05/14/24 15:39 BKG DAEMON(3) [id number] 05/14/24 15:40 BKG DAEMON(4) Intake and Output - 24 Hour Total 05/14/24 11:13 thru 05/14/24 15:48 Intake Total 50 Balance 50 Weight 104.734 kg Intake: IV 50 Other: Urine Appearance Clear Falls Risk Assessment History of Falls Previous History 05/14/24 15:48 Contributing Factors Impairments,Incontinence 05/14/24 15:48 Ambulatory Aids Uses ambulatory device 05/14/24 15:48 Tubes/Lines With any additional score 05/14/24 15:48 Gait Evaluation W/any additional score 05/14/24 15:48 Cognition No cognitive impairment 05/14/24 15:48 Fall Total Score 76 05/14/24 15:48 Level of Risk Maximum Risk 05/14/24 15:48 Problems (Last Reviewed 01/12/24 @ 09:40 by Christine Castellano DPM) Discharge planning issues (Acute) CHF (congestive heart failure) (Chronic) Type 2 diabetes mellitus with peripheral neuropathy (Acute) v v v v v v v v v Sending and/or Receiving Nurses: Please use comment section below to note any information pertinent to the patient hand-off not included above. Information / Comments: Report received from: alin roy ed rn
[2024-05-14] MEDS: Acetaminophen 500 MG TAB 1000 MG PO ×2 (16:35→20:24)
[2024-05-14] MEDS: AZITHROMYCIN 500 MG in Normal Saline 250 ML 250 MG IVPB (16:40)
[2024-05-14] MEDS: Insulin Aspart 300 UNITS/3 ML PEN SC (17:00)
[2024-05-14] MEDS: Furosemide 40 MG TAB PO (17:00)
[2024-05-14] MEDS: Albuterol/Ipratropium 3 ML UPD VIAL UPD ×2 (17:40→22:40)
[2024-05-14 19:07] LABS: Lab Add On Test DONE
[2024-05-14 19:42] LABS: Procalcitonin 0.12 ng/mL
[2024-05-14] MEDS: Insulin Glargine 300 UNITS/3 ML PEN 40 UNITS SC (20:23)
[2024-05-14] MEDS: Miconazole 2% Topical Powder 85 GM BTL TP (20:23)
[2024-05-14] MEDS: Benzonatate 100 MG CAP PO (20:24)
[2024-05-14] MEDS: Levothyroxine 150 MCG TAB PO (20:24)
[2024-05-14] MEDS: guaiFENesin 600 MG TABCR PO (20:24)
[2024-05-14] MEDS: traZODone 50 MG TAB PO (20:25)
[2024-05-14] MEDS: Magnesium Gluconate 500 MG TAB PO (20:25)
[2024-05-14] MEDS: Atorvastatin 40 MG TAB PO (20:25)
[2024-05-14] MEDS: Normal Saline Flush 10 ML SYR IVP (20:25)
[2024-05-15] VITALS (12 sets, daily range): BP systolic 111–136; BP diastolic 56–73; PULSE 75–105; RESP 3–24; TEMP 36.2–36.8; O2SAT 90–100
[2024-05-15] MEDS: Albuterol/Ipratropium 3 ML UPD VIAL UPD ×4 (03:55→22:10)
[2024-05-15 06:35] LABS: Abs Immature Grans 0.07 10^3/uL (0.0-0.06); Absolute Basophil Count 0.04 10^3/uL (0.0-0.2); Basophils % 0.3 %; Eosinophils % 4.3 %; HCT 35.3 % (36.0-46.0); HGB 11.1 g/dL (11.2-15.7); Immature Grans % 0.5 %; Lymphocytes % 11.8 %; MCHC 31.4 % (32.0-36.0); MCV 83 fL (80-95); MPV 9.3 fL (8.0-11.0); Neutrophils % 76.1 %; Platelet Count 251 10^3/uL (130-400); RBC 4.27 10^6/uL (3.93-5.22); RDW 14.4 % (11.7-14.6); RDW-SD 42.9 fL; WBC 14.27 10^3/uL (4.4-10.8)
[2024-05-15 06:41] LABS: Absolute Eosinophil Count 0.61 10^3/uL (0.0-0.7); Absolute Lymphocyte Count 1.68 10^3/uL (1.2-3.4); Absolute Neutrophil Count 10.86 10^3/uL (1.2-6.7)
[2024-05-15 06:51] LABS: Anion Gap 8.9 mmol/L (3-11); BUN 18 mg/dL (7-18); CO2 31.1 mmol/L (21.0-32.0); Calcium 8.8 mg/dL (8.5-10.1); Chloride 99 mmol/L (98-107); Estimated GFR 59.12 (mL/min/1.73m2); Glucose 240 mg/dL (74-106); Potassium 3.7 mmol/L (3.5-5.1); Sodium 139 mmol/L (136-145)
[2024-05-15] MEDS: Polyethylene Glycol 3350 17 GM PACKET PO ×2 (08:05→21:36)
[2024-05-15] MEDS: Miconazole 2% Topical Powder 85 GM BTL TP (08:05)
[2024-05-15] MEDS: Pantoprazole 40 MG TABCR PO (08:06)
[2024-05-15] MEDS: Azithromycin 250 MG TAB PO (08:06)
[2024-05-15] MEDS: Acetaminophen 500 MG TAB 1000 MG PO ×3 (08:06→21:14)
[2024-05-15] MEDS: Magnesium Gluconate 500 MG TAB PO ×3 (08:06→21:14)
[2024-05-15] MEDS: guaiFENesin 600 MG TABCR PO ×2 (08:06→21:14)
[2024-05-15] MEDS: Furosemide 40 MG TAB PO ×2 (08:06→17:20)
[2024-05-15] MEDS: Docusate Sodium 100 MG CAP PO (08:07)
[2024-05-15] MEDS: Benzonatate 100 MG CAP PO ×3 (08:07→21:15)
[2024-05-15] MEDS: Ferrous Sulfate 325 MG TAB PO (08:07)
[2024-05-15] MEDS: Normal Saline Flush 10 ML SYR IVP ×3 (08:08→21:16)
[2024-05-15] MEDS: Spironolactone 50 MG TAB PO (08:14)
[2024-05-15] MEDS: Insulin Glargine 300 UNITS/3 ML PEN 25 UNITS SC (09:09)
[2024-05-15] MEDS: Insulin Aspart 300 UNITS/3 ML PEN SC ×3 (09:09→17:19)
--- NOTE | 2024-05-15 11:56 | INITIAL_ITS ---
Date of service: 05/15/24 Time of Service: 11:57 Care Management Initial Assmt Initial Assessment Reason for Hospitalization: hypoxia, pneumonia Functional Status/Living Situation Patient Presentation: Nilam was sent to the ED yesterday from the pulmonologists office due to a persistent wet sounding cough. Nilam was recently discharged from [facility] after being tx for respiratory failure. Nilam stated she never really got rid of her cough, and is hoping that this admission will do it for her. Nilam asked about her sputum culture results, which are still pending. Nilam was up in the bedside chair when CM met with her today. She is known to from her last admission. Nilam was pleasant and eager to chat, but her cough kept her from enjoying the conversation. Nilam was noted to have a wet sounding cough, but she is not expectorating much of anything. The cough makes it difficult to eat, and also has decreased her appetite. Today she is feeling lousy. She is thinking that she will be missing Thanksgiving dinner at her daughter's house, and this makes her a bit sad. She said that her daughter will visit her, and bring her a plate, but she wishes she could enjoy the holiday. Town of Residence: [place], at [facility] Resides with: Other (lives at the [facility]) Significant Other/Family: Local (Daughter, Kathy and granddaughter, Noam, live near by and visit often. They also take Nilam out of the [facility] on occasion) Caregiver/Guardian: the [facility] Natural Supports: Kathy and Noam Employment Status: Retired Instrumental Activities of Daily Living (ADLs): Requires support Activities/Hobbies/SocialSupport: Nilam enjoys the activities at the [facility]. She is a social person. She also enjoys TV and playing [employer] Medications Medication Management: No Issues/Barriers identified Physical Functioning/Mobility Assistive Device: FWW Advance Directives Advance Directives: Do you have an Advance Directive: N 09/04/23 11:35 AD On File at [facility]: N 09/04/23 11:35 Date Asked 05/14/24 05/14/24 15:24 AD Date Reviewed COLST On File at [facility] Yes 11/29/23 03:38 COLST Date Scanned 09/06/23 11/29/23 03:38 Code Status Resuscitation Status DNR/DNI Portal Pt does not currently have a portal and education provided: No Insurance Coverage/Financial Issues Insurance: [facility] MCR Replacement and Medicaid Care Team Visit Care Team Role Provider Type Angelika Berumen NP Primary Care Provider NURSE PRACTITIONER InPatient Blane Giles Other Providers OTHER Chramaine Silva MD Emergency Provider [facility] STAFF PHYSICIAN Harvey Pillai Admit Provider [facility] STAFF PHYSICIAN Attending Provider Other: Aida Magaña, pulmonology Discharge Potential Discharge Needs: Other (f/u with the provider at the [facility]) Anticipated Barriers to Discharge: None Identified Patient/Family Education Needs: Review discharge instructions, discuss Ask Me Three Transportation: [facility] RCT Transportation: Private vechicle Plan: Anticipate Nilam will return to the [facility], where she resides. She will likely transport via RCT, private vehicle, when medically ready, as arranged by CM. She will follow up with facility providers and her discharge plan of care. CM will continue to follow [facility] All Active Problems (Updated 05/14/24 @ 17:46 by Elise Love NP) Pneumonia (Acute) Hypoxia (Acute) Discharge planning issues (Acute) Acute respiratory failure with hypoxia (Acute) CHF (congestive heart failure) (Chronic) 2020, pt. 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 (Acute) Nail dystrophy (Acute) Onychomycosis (Acute) Edema (Acute) Type 2 diabetes mellitus with peripheral neuropathy (Acute) Paresthesias (Acute) Anemia in chronic illness (Acute) Transaminitis (Acute) Obesity (Chronic) Unstageable pressure ulcer of right heel (Acute) Poorly controlled type 2 diabetes mellitus with peripheral neuropathy (Acute) Low serum iron (Acute) Lumbar back pain with radiculopathy affecting right lower extremity (Acute) Ambulatory dysfunction (Acute) Weakness (Acute) Medical History Cholecystitis Constipation Hypothyroid Gram-negative bacteremia Pleural effusion, left Hyperglycemia due to type 2 diabetes mellitus Palliative care patient Physician orders for life-sustaining treatment (POLST) form indicates patient wish for [id number] status ACP (advance care planning) Urinary tract infection Stroke Diabetes CHF (congestive heart failure) 2020, pt. denies any deficits now Surgical History S/P cholecystectomy History of ERCP S/P tonsillectomy Family History (Updated 03/01/24 @ 10:33 by Una Alexander) Mother Cancer Social History Smoking/Tobacco Use Status: Never Smoking risk assessment performed?: Yes Alcohol Intake: never Drug use: Never Substance use type: does not use Housing: assisted living facility What is your relationship status?: Panel score (0-1 are the most socially isolated patients): 0 Do you feel safe at home: Yes Do you feel safe in your relationship?: Yes Additional Social history: PT RESIDES AT THE [facility] Within the Past 30 Days Yes or No: Yes Date of First Admission Date of 1st Admission: 04/28/24 Date of this Admission Date of Admission: 05/14/24 This admission was: Through ED (sent from pulmonology office) Office Visit Since 1st Admission Have you seen your PCP in the office since discharge?: Yes Date of PCP [facility]ment: [facility] Have you seen any other specialist since your 1st Admission?: Yes Date you saw the Specialist: 05/14/24 Specialist Seen: Aida Magaña, spine nurse, sent her to the ED due to her symptoms I. Interview patient and/or Family Difficulty reaching your doctor or getting an office appt?: No Have you had trouble purchasing/ or taking medication?: No How do you take your medications and set up your pills?: given by nursing at the [facility] Have you had trouble with getting meals at home?: No Did you feel ready for discharge when you left the last time: Yes If the patient came from Ext. Facility Call the Facility to discuss the patient's admission: Nilam continued to have a cough, but no fever. Was seen by pulmonology who sent her to ED ED visits How many ED visits in the past 12 months: 8 Assessment for Readmission Summary of readmission circumstances, based upon interviews: appears she was treated a full course of antibiotics. SDOH(Care Management) Screening Will the Patient Participate in the Screening?: Yes Do you worry about having a steady place to live?: no In the past 12 months, have you had to go without electric, gas, oil or water in your home?: no Have you or anyone in your house had to go without enough food to eat?: no Has lack of transportation kept you from medical appointments or from doing things needed for daily living?: no Has anyone in your support network made you feel unsafe for any reason?: no Social Determinants of Health Comments(SDOH Details): Nilam resides at the [facility]
[2024-05-15] MEDS: Enoxaparin 40 MG/0.4 ML SYR SC (12:53)
[2024-05-15] MEDS: cefTRIAXone 1 GM/50 ML BAG IVPB (14:32)
--- NOTE | 2024-05-15 14:40 | W.PM.PROGNOT ---
Date of Service Date of service: 05/15/24 Time of Service: 14:40 Assessment and Plan Assessment and plan (1) Acute respiratory failure with hypoxia: Status: Acute Assessment and plan: suspect possible bilateral lower lobe pneumonia add procal ceftriaxone/azithromycin day 2/5 -As per pulmonary function test completed on 03/23/2024, despite no airflow limitation there was appearance of restrictive spirometry -with FEV1 improving by 14% with bronchodilator; this might have represented emphysema, early ILD or pulmonary vascular disease -Negative viral respiratory panel add acapella, IS, scheduled and PRN nebs (2) Pneumonia: Status: Acute Assessment and plan: continue ceftriaxone/azithromycin day 2/5 strep pneum/legionella urine test ordered sputum culture ordered. RSV/flu/covid pcr negative. (3) Type 2 diabetes mellitus with peripheral neuropathy: Status: Acute Assessment and plan: Patient with history of uncontrolled diabetes mellitus type 2 -diabetic diet with sliding scale coverage ac/hs (4) CHF (congestive heart failure): Status: Chronic Assessment and plan: -No signs and symptoms of acute exacerbation -continue home meds. Qualifiers: Heart failure type: diastolic Heart failure chronicity: chronic Qualified Code(s): I50.32 - Chronic diastolic (congestive) heart failure (5) Discharge planning issues: Status: Acute Assessment and plan: Return to the [facility] when medically stable Discussed with Dr Pillai Subjective Subjective Patient reports: no new complaints, feels better, tolerating liquids well, tolerating a regular diet, shortness of breath (continues to have persistent cough) and afebrile Exam Const General: cooperative, comfortable and no acute distress Nutritional Appearance: obese Orientation: alert, awake, oriented to person and oriented to place [facility] Head: normal to inspection and normocephalic Face and sinus: normal facial exam Mouth: oral mucosae normal Resp Effort & Inspection: normal respiratory effort, able to speak in complete sentences and not labored Auscultation: wheezes expiratory wheezes Cardio Rate: regular rate Rhythm: regular rhythm GI Inspection: obesity Palpation: soft Auscultation: normal bowel sounds Skin General skin exam: no rashes or lesions noted Neuro General: patient alert and patient awake Extrem General: edema Objective Last Vital Signs Temp 36.8 C 05/15/24 07:51 Pulse 84 05/15/24 10:02 Resp 18 05/15/24 09:56 BP 111/56 L 05/15/24 07:51 Pulse Ox 98 05/15/24 09:56 Laboratory Results - last 24 hr 05/14/24 05/15/24 11:50 06:20 WBC 14.27 H RBC 4.27 Hgb 11.1 L Hct 35.3 L MCV 83 MCH 26.0 L MCHC 31.4 L RDW 14.4 Plt Count 251 MPV 9.3 Immature Gran % 0.5 Neutrophils % 76.1 Lymphocytes % 11.8 Monocytes % 7.0 Eosinophils % 4.3 Basophils % 0.3 Nucleated RBC % 0.0 Absolute Neutrophils 10.86 H Absolute Lymphocytes 1.68 Absolute Monocytes 1.00 H Absolute Eosinophils 0.61 Absolute Basophils 0.04 Sodium 139 Potassium 3.7 Chloride 99 Carbon Dioxide 31.1 Anion Gap 8.9 BUN 18 Creatinine 1.0 Est GFR (CKD-EPI 2020) 59.12 Glucose 240 H Calcium 8.8 Procalcitonin 0.12 Add-On Test Request DONE Time Spent with Patient Time Spent with Patient: 35-49 minutes Time was spent: preparing to see the patient(eg.review tests), obtaining and/or reviewing separately otained hiistory, ordering medications,tests, procedures, indepentently interpreting results and counseling the patient
--- NOTE | 2024-05-15 14:55 | IN_ITS ---
PT Notes Visit Reasons: Hypoxia,Pneumonia Physical Therapy Inpatient Initial Evaluation Date: 05/15/2024 Referring Doctor: Elise Love NP PT Orders: PT CONSULT: Eval for Assistive Device Precautions: Fall. Standard. Activity as tolerated. Patient Profile/Admitting Diagnosis: Nilam is a 73-year-old female with past medical history significant for CVA admitted for management of acute respiratory failure with hypoxia, chroninc cough, and type II DM. PMHX: All Active Problems (Updated 05/14/24 @ 17:46 by Elise Love NP) Pneumonia (Acute) Hypoxia (Acute) Discharge planning issues (Acute) Acute respiratory failure with hypoxia (Acute) CHF (congestive heart failure) (Chronic) 2020, pt. 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 (Acute) Nail dystrophy (Acute) Onychomycosis (Acute) Edema (Acute) Type 2 diabetes mellitus with peripheral neuropathy (Acute) Paresthesias (Acute) Anemia in chronic illness (Acute) Transaminitis (Acute) Obesity (Chronic) Unstageable pressure ulcer of right heel (Acute) Poorly controlled type 2 diabetes mellitus with peripheral neuropathy (Acute) Low serum iron (Acute) Lumbar back pain with radiculopathy affecting right lower extremity (Acute) Ambulatory dysfunction (Acute) Weakness (Acute) Medical History Cholecystitis Constipation Hypothyroid Gram-negative bacteremia Pleural effusion, left Hyperglycemia due to type 2 diabetes mellitus Palliative care patient Physician orders for life-sustaining treatment (POLST) form indicates patient wish for [id number] status ACP (advance care planning) Urinary tract infection Stroke Diabetes CHF (congestive heart failure) 2020, pt. denies any deficits now Surgical History S/P cholecystectomy History of ERCP S/P tonsillectomy Urinary tract infection Stroke Diabetes CHF (congestive heart failure) 2020, pt. denies any deficits now Social History/Home Situation: Lived in a SNF in [place] since April to August of this year. Now resident of the [facility] since most recent discharge from this hospital. Equipment Owned/DME: Used wheelchair for long distances in previous SNF; ambulatory with assist for in-room ambulation using FWW Subjective: Complained of mild shortness of breath after walking about 100 feet. dneied headache, chest pain and lightheadedness throughout session. Objective: General Observation: Resting in bed. Lvoe catheter in place. High BMI. B LE swelling noted. Mental Status: Alert and oriented as to person, place, time, and purpose. Able to pay attention, focus, and respond appropriately. Pain: As above Vital Signs: Closely monitored by nursing staff ROM: Right Upper Extremity: Shoulder Flexion WFL. Shoulder abduction WFL. Elbow flexion WFL. Wrist flexion WFL. Functional opening and closing of hand WFL. Left Upper Extremity: Shoulder Flexion WFL. Shoulder abduction WFL. Elbow flexion WFL. Wrist flexion WFL. Functional opening and closing of hand WFL. Right Lower Extremity: Hip flexion WFL. Hip abduction WFL. Knee flexion WFL. Ankle dorsiflexion to neutral only. Ankle plantarflexion WFL. Left Lower Extremity: Hip flexion only allows 25% of AROM. Hip abduction WFL. Knee flexion 30 degrees to 60 degrees. Kne extension -30 degrees. Ankle dorsiflexion to neutral only. Ankle plantarflexion WFL. Strength: Right Upper Extremity: Shoulder flexors 4/5. Shoulder abductors 4/5. Elbow flexors 4/5. Elbow extensors 4/5. Last Trimmer strong. Left Upper Extremity: Shoulder flexors 4-/5. Shoulder abductors 4-/5. Elbow flexors 4-/5. Elbow extensors 4-/5. Last Trimmer weaker than R but functional. Right Lower Extremity: Hip flexors 3/5. Hip abductors 4-/5. Knee flexors 4/5. Knee extensors 4-/5. Ankle dorsiflexors 3-/5. Ankle plantarflexors 4-/5. Left Lower Extremity: Hip flexors 3-/5. Hip abductors 3-/5. Knee flexors 3-/5. Knee extensors 3-/5. Ankle dorsiflexors 3-/5. Ankle plantarflexors 3-/5. Bed Mobility/Transfers: Minimal cueing provided for use of B hands as needed for support, movement sequence, AD management, and posture to reduce fall risk and minimize pain report Supine to sit with stand by assist, HOB at 45 degrees, Scoot forward to edge of bed stand by assist Sit to stand with contact guard assist Stand to sit with stand by assist Gait: Facilitated safe and correct performance of level surface ambulation covering a distance of 100 feet + 100 feet using front-wheeled walker with stand by assist and wheelchair follow requiring minimal verbal cueing for limb advancement, AD management, and posture to reduce fall risk and minimize pain report. Asymmetric step height and length but no LOB. Moderate shortness of breath resolved with rest. Standardized Measure [facility] AM-PAC 6 clicks Basic Mobility Inpatient Short Form: Raw Score: 21 CMS Score: 29% deficit Informed Consent/Education: Patient was instructed in purpose of PT consult and plan of care. Agreeable to proceed with established PT POC to achieve personal goals. Assessment: Patient presents with clinical signs and symptoms consistent with current/ad mitting diagnoses that have resulted to mobility limitations, gait instability, generalized weakness, and overall ADL decline as demonstrated by the following impairment level findings: 1. Decreased strength to B UE/LE major muscle groups 2. Impaired standing balance 3. Impaired activity tolerance 4. Shortness of breath 5. Swelling in B LE Impairments are contributing to the following functional limitations: 1. Decline in bed mobility skills 2. Decline in transfer skills 3. Difficulty with ambulation without assistive device and physical assistance 4. Increased completion time for mobility ADL performance 5. Increased risk for falls 6. Increased risk for skin breakdown Patient is assessed as a 23865 moderate complexity based on the following: History: 73-year-old female with past medical history as indicated above Examination: Demonstrable impairment in strength, balance, and mobility level with underlying impairments and functional limitations as exhibited above as well as deficit score of 47% utilizing the [facility] Mobility Inpatient Short Form Presentation: Evolving Decision Makin moderate complexity Goals: Goals X1 week 1. Supine-Sit independent 2. Sit-Supine independent 3. Sit-Stand independent 4. Stand-Sit independent with FWW 5. Bed-Chair independent with FWW 6. Chair-Bed independent with FWW 7. Independent gait on level surface with use of FWW for at least 200 feet without report of pain nor dyspnea 8. Independent stair negotiation while holding onto B rails for at least 5 steps without report of pain nor dyspnea 9. Independent with home exercise program 10. Good static and dynamic standing balance/tolerance Plan of Care/Treatment Plan: 1-2x/day, 7 days/week x 1 week. Plan of care has been reviewed with the FIELD REIMBURSEMENT MANAGER providing the service under Physical Therapy direction. Initiate Physical Therapy intervention for pain management as needed, strengthening, bed mobility, transfers, gait, stairs, balance training, and use of assistive device. DISCHARGE RECOMMENDATIONS: [] Home with no services [] [] Home with services [] Home with outpatient PT [] [] SNF for continued rehabilitation [] [] [facility] [] [] SNF versus LTC based on ability to participate and progress [] [X] Return to SNF and resume PT services for functional mobility training/progression TREATMENT CODE/TIME: 88766 x 20 minutes for 1 unit, 82175 x 20 minutes for 1 unit (14:55-15:35). Thank you for the opportunity to participate in the care of this patient. Bridget Andersen PT, DPT, CLT [facility] [place], [place]
--- NOTE | 2024-05-15 15:10 | CHAPLAIN ---
Nilam and I know each other from previous admissions. She was discharged last week and came to the ED yesterday from the Pulmonary office. She is disappointed to be here and doesn't want to miss Thanksgiving at her daughter's house. Nilam lives at the [facility] where her daughter, Noam, visits often. I will continue to visit.
[2024-05-15 19:53] LABS: Legionella Ag Detection Urine Negative (Negative)
[2024-05-15] MEDS: Atorvastatin 40 MG TAB PO (21:14)
[2024-05-15] MEDS: traZODone 50 MG TAB PO (21:15)
[2024-05-15] MEDS: Melatonin 3 MG TAB PO (21:15)
[2024-05-15] MEDS: Levothyroxine 150 MCG TAB PO (21:35)
[2024-05-15] MEDS: Insulin Glargine 300 UNITS/3 ML PEN 40 UNITS SC (21:36)
[2024-05-15] MEDS: guaiFENesin/D-METHORPHAN HB 5 ML CUP 10 ML PO (23:29)
[2024-05-16 03:25] VITALS: PULSE 82; RESP 14; O2SAT 96
[2024-05-16] MEDS: Albuterol/Ipratropium 3 ML UPD VIAL UPD (03:25)
[2024-05-16 03:35] VITALS: PULSE 80; RESP 16; O2SAT 99
[2024-05-16] MEDS: guaiFENesin/D-METHORPHAN HB 5 ML CUP 10 ML PO (05:22)
[2024-05-16 06:30] LABS: Abs Immature Grans 0.04 10^3/uL (0.0-0.06); Absolute Basophil Count 0.03 10^3/uL (0.0-0.2); Absolute Eosinophil Count 0.62 10^3/uL (0.0-0.7); Absolute Lymphocyte Count 1.29 10^3/uL (1.2-3.4); Absolute Monocyte Count 0.67 10^3/uL (0.1-0.8); Absolute Neutrophil Count 6.53 10^3/uL (1.2-6.7); Basophils % 0.3 %; Eosinophils % 6.8 %; HCT 34.1 % (36.0-46.0); HGB 10.8 g/dL (11.2-15.7); Immature Grans % 0.4 %; Lymphocytes % 14.1 %; MCH 26.2 pg (27.0-33.0); MCHC 31.7 % (32.0-36.0); MCV 83 fL (80-95); MPV 9.4 fL (8.0-11.0); Monocytes % 7.3 %; Neutrophils % 71.1 %; Platelet Count 257 10^3/uL (130-400); RBC 4.12 10^6/uL (3.93-5.22); RDW 14.2 % (11.7-14.6); WBC 9.18 10^3/uL (4.4-10.8)
[2024-05-16 06:42] LABS: BUN 20 mg/dL (7-18); CREATININE 1.1 mg/dL (0.55-1.02); Chloride 98 mmol/L (98-107); Estimated GFR 52.73 (mL/min/1.73m2); Glucose 314 mg/dL (74-106); Potassium 3.9 mmol/L (3.5-5.1); Sodium 138 mmol/L (136-145)
[2024-05-16 07:29] VITALS: BP 159/87; PULSE 86; RESP 20; TEMP 36.5; O2SAT 96
[2024-05-16 08:04] VITALS: O2SAT 98
[2024-05-16] MEDS: Polyethylene Glycol 3350 17 GM PACKET PO (08:25)
[2024-05-16] MEDS: Milk of Magnesia 30 ML CUP PO (08:25)
[2024-05-16] MEDS: Enoxaparin 40 MG/0.4 ML SYR SC (08:25)
[2024-05-16] MEDS: Azithromycin 250 MG TAB PO (08:26)
[2024-05-16] MEDS: Magnesium Gluconate 500 MG TAB PO ×2 (08:26→13:00)
[2024-05-16] MEDS: Acetaminophen 500 MG TAB 1000 MG PO ×2 (08:26→13:00)
[2024-05-16] MEDS: Furosemide 40 MG TAB PO (08:26)
[2024-05-16] MEDS: Spironolactone 50 MG TAB PO (08:27)
[2024-05-16] MEDS: Docusate Sodium 100 MG CAP PO (08:27)
[2024-05-16] MEDS: guaiFENesin 600 MG TABCR PO (08:27)
[2024-05-16] MEDS: Pantoprazole 40 MG TABCR PO (08:27)
[2024-05-16] MEDS: Normal Saline Flush 10 ML SYR IVP (08:27)
[2024-05-16] MEDS: Benzonatate 100 MG CAP PO ×2 (08:27→13:00)
[2024-05-16] MEDS: Insulin Glargine 300 UNITS/3 ML PEN 25 UNITS SC (08:28)
[2024-05-16] MEDS: Insulin Aspart 300 UNITS/3 ML PEN SC ×2 (08:29→12:16)
[2024-05-16] MEDS: Ferrous Sulfate 325 MG TAB PO (08:30)
[2024-05-16] MEDS: Miconazole 2% Topical Powder 85 GM BTL TP (08:31)
--- NOTE | 2024-05-16 12:15 | W.PM.DS.N ---
Date of service: 05/16/24 Time of Service: 12:15 DS: Diagnosis Discharge Diagnosis (1) Acute respiratory failure with hypoxia: Status: Acute (2) Pneumonia: Status: Acute (3) Type 2 diabetes mellitus with peripheral neuropathy: Status: Acute (4) CHF (congestive heart failure): Status: Chronic (5) Discharge planning issues: Status: Acute Discharge Plan Disposition Patient Disposition: Alf Facility(SNF) Condition: Improving Discharge Details Reason For Visit: Hypoxia,Pneumonia Admit Date/Time: 05/14/24 14:40 Admit Provider: Harvey Pillai Attending Provider: Harvey Pillai Primary Care Provider: Angelika Berumen Hospital Course Hospital Course: This 73 years old female patient living at the [facility], with past medical history of CHF, type 2 diabetes, anemia, chronic cough presented to the ED at [facility] on 05/14/2024 for evaluation of shortness of breath and hypoxia. The patient was not currently on home oxygen but this was initiated the day prior to presentation due to low SpO2. The patient was seen in pulmonology on the day of presentation with noticeable by basilar crackles reported with concerns for fluid overload in the setting of her known CHF; the patient was referred to the emergency room for further evaluation. Arrival the patient had no fever but had a productive cough with white sputum expectorated. The workup in the ED was significant for leukocytosis at 16, glucose level of 424 without significant electrolyte derangements or kidney dysfunction. Respiratory viral panel was negative. BNP was at 231. Chest CT reported small infiltrate since in the lower lobes bilaterally with concern for atelectasis versus pneumonia. In the setting of leukocytosis, hypoxia and ongoing cough the hospitalist was consulted and the patient admitted to the medical surgical floor for evaluation and management of hypoxic respiratory failure due to possible pneumonia. Patient was initiated in the ED with azithromycin and ceftriaxone. During the stay the treatment was continued with azithromycin and ceftriaxone. Hypoxia resolved patient saturation oxygen maintained around 96-99 on room air. Resolution of leukocytosis also noticed. The patient will be discharge to the [facility] today on a short course of oral azithromycin and cefpodoxime. The patient's chronic medical conditions were managed as per chronic/home medicine regimen. Orders have been written for dextromethorphan guaifenesin as needed for cough as well as Mucinex twice daily for 7 days. Short course of Combivent was also ordered. Discussed with Dr. Pillai Home Meds and New Rx's Prescriptions: New Combivent Respimat 20-100 mcg/actuation mist 1 puff inhalation QID Qty: 4 0RF Rx Instructions: space evenly during waking hours azithromycin 250 mg Tablet 250 mg PO DAILY Qty: 3 0RF cefpodoxime 200 mg tablet 200 mg PO BID Qty: 10 0RF Rx Instructions: must administer with a meal/food dextromethorphan-guaifenesin 10-100 mg/5 mL Syrup 10 ml PO Q8H PRNQty: 237 0RF guaifenesin [Mucus Relief ER] 600 mg Tablet Extended Release 12hr 600 mg PO BID Qty: 14 0RF Continued Trulicity 0.75 mg/0.5 mL pen injector 0.75 mg subcut QWEEK Patient Comments: on wednesdays per [facility] melatonin 3 mg tablet 3 mg PO HS PRN Cosentyx UnoReady Pen 300 mg/2 mL (150 mg/mL) pen injector 300 mg subcut QWEEK magnesium gluconate [Mag-G] 27 mg magnesium (500 mg) tablet 27 mg PO TID benzonatate 100 mg capsule 100 mg PO TID dextromethorphan-guaifenesin [Guaiasorb DM] 10-100 mg/5 mL liquid 10 ml PO Q4H PRN ipratropium bromide 21 mcg (0.03 %) spray,non-aerosol 2 spray intranasal BID-TID PRN (Reason: allergy symptoms) Qty: 30 2RF Rx Instructions: administer into each nostril cholecalciferol (vitamin D3) 1,250 mcg (50,000 unit) capsule 1,250 mcg PO QWEEK atorvastatin 40 mg tablet 40 mg PO HS trazodone 50 mg tablet 50 mg PO QHS acetaminophen 500 mg Tablet 1,000 mg PO TID MDD 3000 mg Qty: 60 0RF ferrous sulfate 325 mg (65 mg iron) Tablet 325 mg PO DAILY Qty: 30 0RF pantoprazole 40 mg Tablet,Delayed Release (Dr/Ec) 40 mg PO DAILY@0730 Qty: 10 0RF metformin 500 mg tablet 500 mg PO BIDWMEAL Qty: 60 0RF (DME) lancets [FreeStyle Lancets] 28 gauge misc See Rx Instructions .Route Qty: 100 0RF Rx Instructions: As directed (DME) blood-glucose meter [FreeStyle Lite Meter] Kit See Rx Instructions .Route Qty: 1 0RF Rx Instructions: As directed (DME) FreeStyle Lite Strips Strip See Rx Instructions .Route Qty: 100 0RF Rx Instructions: As directed spironolactone 50 mg tablet 50 mg PO DAILY insulin glargine [Lantus Solostar U-100 Insulin] 100 unit/mL (3 mL) Insulin Pen 25 unit subcut QAM levothyroxine 150 mcg tablet 150 mcg PO HS furosemide 40 mg Tablet 40 mg PO BID@0830,1600 Qty: 60 0RF insulin aspart U-100 100 unit/mL (3 mL) insulin pen 1 sliding scale dose SUBCUT TID Rx Instructions: see sliding scale polyethylene glycol 3350 [ClearLax] 17 gram/dose powder 17 g PO DAILY insulin glargine [Lantus Solostar U-100 Insulin] 100 unit/mL (3 mL) Insulin Pen 40 unit subcut HS calcium carbonate [Calcium 500] 500 mg calcium (1,250 mg) tablet,chewable 1,000 mg PO ONCE PRN Rx Instructions: 2 tabs Q3H Changed docusate sodium [Colace] 100 mg Capsule 100 mg PO BID Qty: 30 0RF Discharge Instructions Activity:: Activity as Tolerated Equipment/Supplies:: Walker Diet:: heart healthy diabetic Discharge Orders Discharge Orders: Discharge Order (Routine); Ordered 05/16/24 Ordered By: Roseanne Kamara DS: Summary Time Spent with Patient providing and/or coordinating discharge services: Greater than 30 minutes Status at Discharge Functional status at discharge: uses cane/walker Overall status at discharge: patient is progressing back to baseline Mental Status: mental status grossly normal Speech and Movement: speech and movement normal Mood: congruent mood Affect: normal affect Quality:SDOH Health Related Social Needs: Health related social needs details From [facility] Exam Narrative Exam Narrative: Constitutional The patient in chair, without acute distress HENMT:Facial structures with normal appearance Neuro:alert and oriented x4 and non-focal Resp: Unlabored breathing, non-productive cough on deep breathing -no crackles Cardio: regular rhythm, S1, S2, positive radial and pedal pulses GI: Abdomen is large , not distended, soft and non tender, bowel sounds are present Integumentary: No skin lesions or rash on exposed skin Psych: RASS 0, congruent mood and normal affect. Psych Mental Status: mental status grossly normal Speech and Movement: speech and movement normal Mood: congruent mood Affect: normal affect DS: Data Vitals/I&O Vitals and I&O: Vital Signs Temperature 36.5 C 05/16/24 07:29 Temperature Source Temporal Artery Scan 05/16/24 07:29 Pulse 86 05/16/24 07:29 Pulse Rhythm Regular 05/14/24 15:48 Pulse 81 05/14/24 15:16 Respiratory Rate 20 05/16/24 07:29 Respiratory Effort Short of Breath, Labored 05/14/24 15:48 Respiratory Depth Shallow 05/14/24 15:48 Respiratory Pattern Tachypnea 05/14/24 15:48 Blood Pressure 159/87 H 05/16/24 07:29 Blood Pressure Mean 77 05/14/24 15:16 Blood Pressure Position Supine 05/14/24 11:22 Pulse Oximetry 98 05/16/24 08:04 Oxygen Delivery Method Room Air 05/16/24 08:04 Oxygen Flow Rate 0 05/16/24 08:04 Pain Level 2 05/16/24 08:26 Comment legs, baseline 05/14/24 11:22 Intake & Output 05/15/24 05/16/24 05/16/24 23:59 11:59 23:59 Intake Total 300 / 910 480 / 480 Output Total 550 / 550 Balance 300 / 910 -70 / -70 Intake: IV 60 / 310 Oral 240 / 600 480 / 480 Output: Urine 550 / 550 Other: Urine Color Yellow Pale Urine Appearance Clear Clear Urine Odor Normal Comment pt urinates every time she coughs. purewick was put in to try to help pt keep dryer during. Data Completed and Pending Labs on day of discharge: Labs from last 24 hours 05/16/24 05/14/24 06:02 23:39 WBC 9.18 RBC 4.12 Hgb 10.8 L Hct 34.1 L MCV 83 MCH 26.2 L MCHC 31.7 L RDW 14.2 Plt Count 257 MPV 9.4 Immature Gran % 0.4 Neutrophils % 71.1 Lymphocytes % 14.1 Monocytes % 7.3 Eosinophils % 6.8 Basophils % 0.3 Nucleated RBC % 0.0 Absolute Neutrophils 6.53 Absolute Lymphocytes 1.29 Absolute Monocytes 0.67 Absolute Eosinophils 0.62 Absolute Basophils 0.03 Sodium 138 Potassium 3.9 Chloride 98 Carbon Dioxide 31.0 Anion Gap 9.0 BUN 20 H Creatinine 1.1 H Est GFR (CKD-EPI 2020) 52.73 Glucose 314 H Calcium 9.0 Urine Legionella Ag Negative Preliminary micro results at discharge 05/14/24 20:35 Sputum Culture - Preliminary Sputum Normal Gogo [facility] All Active Problems (Updated 05/14/24 @ 17:46 by Elise Love NP) Pneumonia (Acute) Hypoxia (Acute) Discharge planning issues (Acute) Acute respiratory failure with hypoxia (Acute) CHF (congestive heart failure) (Chronic) 2020, pt. 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 (Acute) Nail dystrophy (Acute) Onychomycosis (Acute) Edema (Acute) Type 2 diabetes mellitus with peripheral neuropathy (Acute) Paresthesias (Acute) Anemia in chronic illness (Acute) Transaminitis (Acute) Obesity (Chronic) Unstageable pressure ulcer of right heel (Acute) Poorly controlled type 2 diabetes mellitus with peripheral neuropathy (Acute) Low serum iron (Acute) Lumbar back pain with radiculopathy affecting right lower extremity (Acute) Ambulatory dysfunction (Acute) Weakness (Acute) Medical History Cholecystitis Constipation Hypothyroid Gram-negative bacteremia Pleural effusion, left Hyperglycemia due to type 2 diabetes mellitus Palliative care patient Physician orders for life-sustaining treatment (POLST) form indicates patient wish for [id number] status ACP (advance care planning) Urinary tract infection Stroke Diabetes CHF (congestive heart failure) 2020, pt. denies any deficits now Surgical History S/P cholecystectomy History of ERCP S/P tonsillectomy Family History (Updated 03/01/24 @ 10:33 by Una Alexander) Mother Cancer Social History Smoking/Tobacco Use Status: Never Smoking risk assessment performed?: Yes Alcohol Intake: never Drug use: Never Substance use type: does not use Housing: assisted living facility What is your relationship status?: Panel score (0-1 are the most socially isolated patients): 0 Do you feel safe at home: Yes Do you feel safe in your relationship?: Yes Additional Social history: PT RESIDES AT THE [facility] Time Spent with Patient Time Spent with Patient: 70-84 minutes4 Time was spent: preparing to see the patient(eg.review tests), obtaining and/or reviewing separately otained hiistory, ordering medications,tests, procedures, referring, communicating with other health career transition specialist, indepentently interpreting results, counseling the patient and care coordination
--- NOTE | 2024-05-16 12:36 | CMDISCH_ITS ---
Date of service: 05/16/24 Time of Service: 12:36 LACE Index Scoring Tool Questions: Length of Stay (in days): 2 Was the patient admitted via the E.D.?: Yes Comorbidities: Cerebrovascular Disease, Diabetes w/o Complication and Congestive Heart Failure E.D. Visits: 6 Answers: Total Score: 14 Risk of Readmission: High Risk Care Management Discharge Plan Reason for Hospitalization: pneumonia and CHF Discharge Plan: Nilam will be discharged today back to the [facility] where she resides. She will transport via [facility] wheel chair van, as arranged by CM. She will f/u with the facility provider and continue per her plan of care. Patient/Family Education Needs: Review of discharge instructions, activity, limitations, f/u plan and discuss ask me 3. SDOH Health Related Social Needs: Health related social needs details From [facility]
[2024-05-16 22:45] LABS: Streptococcus Pneumoniae Ag, U Negative (Negative)
== END 2024-05-16 13:30 | disposition skilled nursing facility (03) | DRG 193 ==
LOC: ER 15:09 → MS 15:24
PROVIDERS: Nurse Practitioner Acute Care; Admitting Provider Family Medicine; Emergency Provider Emergency Medicine; PCP Nurse Practitioner Gerontology; Visit Provider Family Medicine
DX: J96.01 Acute respiratory failure with hypoxia (principal); J18.9 Pneumonia, unspecified organism; I50.32 Chronic diastolic (congestive) heart failure; E87.1 Hypo-osmolality and hyponatremia; I69.354 Hemiplegia and hemiparesis following cerebral infarction affecting left non-dominant side; E11.42 Type 2 diabetes mellitus with diabetic polyneuropathy; E11.65 Type 2 diabetes mellitus with hyperglycemia; Z79.85 Long-term (current) use of injectable non-insulin antidiabetic drugs; Z79.84 Long term (current) use of oral hypoglycemic drugs; Z79.4 Long term (current) use of insulin; R05.3 Chronic cough; R13.10 Dysphagia, unspecified; M54.16 Radiculopathy, lumbar region; B35.1 Tinea unguium; D63.8 Anemia in other chronic diseases classified elsewhere; R74.01 Elevation of levels of liver transaminase levels; E66.9 Obesity, unspecified; E03.9 Hypothyroidism, unspecified; Z66 Do not resuscitate; K59.00 Constipation, unspecified
CPT/HCPCS: 00123; 36415; 71275; 80048; 80053; 84145; 87449; 87637; 93005; 93308; 96374; 97162; 97530; 99285; J1650; 71046; 83735; 83880; 84484; 85025; 85610; 87070; 87205; 87581; 87899; 93010; 94640; 94667; 94668; 94760; 99222; 99232; 99239; J0456; J0696; J1815; J3490; J7620

== ENCOUNTER 2024-05-28 16:20 | Outpatient (REF) | payer MEDICARE, MEDICAID, SELFPAY ==
[2024-05-28 19:36] LABS: Abs Immature Grans 0.07 10^3/uL (0.0-0.06); Absolute Basophil Count 0.04 10^3/uL (0.0-0.2); Absolute Eosinophil Count 0.26 10^3/uL (0.0-0.7); Absolute Lymphocyte Count 1.25 10^3/uL (1.2-3.4); Basophils % 0.3 %; HGB 12.9 g/dL (11.2-15.7); Immature Grans % 0.5 %; Lymphocytes % 9.5 %; MCH 26.1 pg (27.0-33.0); MCHC 30.7 % (32.0-36.0); MCV 85 fL (80-95); MPV 9.6 fL (8.0-11.0); Monocytes % 3.3 %; Neutrophils % 84.4 %; Platelet Count 348 10^3/uL (130-400); RBC 4.95 10^6/uL (3.93-5.22); RDW 14.6 % (11.7-14.6); RDW-SD 44.7 fL; WBC 13.19 10^3/uL (4.4-10.8)
[2024-05-28 19:40] LABS: Absolute Monocyte Count 0.44 10^3/uL (0.1-0.8); Absolute Neutrophil Count 11.13 10^3/uL (1.2-6.7)
[2024-05-28 20:15] LABS: ALT 22 U/L (14-59); AST 12 U/L (15-37); Albumin 3.4 g/dL (3.4-5.0); Alkaline Phosphatase 75 U/L (46-116); Anion Gap 10.6 mmol/L (3-11); BUN 25 mg/dL (7-18); Bilirubin, Total 0.33 mg/dL (0.2-1.0); CO2 31.4 mmol/L (21.0-32.0); CREATININE 1.3 mg/dL (0.55-1.02); Calcium 9.8 mg/dL (8.5-10.1); Chloride 94 mmol/L (98-107); Estimated GFR 43.15 (mL/min/1.73m2); Glucose 385 mg/dL (74-106); Potassium 4.6 mmol/L (3.5-5.1); Sodium 136 mmol/L (136-145); Total Protein 7.7 g/dL (6.4-8.2)
== END 2024-05-28 16:21 | disposition home or self-care (01) ==
LOC: LBN 16:20
PROVIDERS: PCP Nurse Practitioner Gerontology; Visit Provider Nurse Practitioner Gerontology
DX: E83.42 Hypomagnesemia (principal)
CPT/HCPCS: 80053; 85025

== ENCOUNTER → 2024-06-06 08:34 | Outpatient (BNVA) | payer MEDICARE, MEDICAID, SELFPAY | PROVIDERS: PCP Nurse Practitioner Gerontology; Referring Provider Nurse Practitioner Gerontology; Visit Provider Physician Assistant Surgical | DX: R05.3 Chronic cough (principal); R13.10 Dysphagia, unspecified | CPT/HCPCS: 99214 ==

== ENCOUNTER → 2024-09-20 11:01 | Outpatient (BNVA) | payer MEDICARE, MEDICAID, SELFPAY | PROVIDERS: PCP Nurse Practitioner Gerontology; Referring Provider Nurse Practitioner Gerontology; Visit Provider Physician Assistant Surgical | DX: R05.3 Chronic cough (principal); I50.32 Chronic diastolic (congestive) heart failure; R13.10 Dysphagia, unspecified; E11.9 Type 2 diabetes mellitus without complications; R60.0 Localized edema | CPT/HCPCS: 36415; 99214 ==

== ENCOUNTER 2024-09-20 12:48 | Outpatient (REF) | payer MEDICARE, MEDICAID, SELFPAY ==
[2024-09-20 13:27] LABS: Abs Immature Grans 0.12 10^3/uL (0.0-0.06); Basophils % 0.3 %; Eosinophils % 2.5 %; HCT 35.9 % (36.0-46.0); HGB 11.5 g/dL (11.2-15.7); Lymphocytes % 15.1 %; MCH 25.2 pg (27.0-33.0); MCV 79 fL (80-95); MPV 9.7 fL (8.0-11.0); Monocytes % 6.9 %; Neutrophils % 74.2 %; Platelet Count 322 10^3/uL (130-400); RBC 4.57 10^6/uL (3.93-5.22); RDW 15.8 % (11.7-14.6); RDW-SD 44.8 fL; WBC 11.82 10^3/uL (4.4-10.8)
[2024-09-20 13:28] LABS: Absolute Basophil Count 0.04 10^3/uL (0.0-0.2); Absolute Lymphocyte Count 1.78 10^3/uL (1.2-3.4); Absolute Monocyte Count 0.82 10^3/uL (0.1-0.8); Absolute Neutrophil Count 8.77 10^3/uL (1.2-6.7)
[2024-09-20 13:38] LABS: NT-proBNP 115 pg/mL (<300)
== END 2024-09-20 12:49 | disposition home or self-care (01) ==
LOC: LBN 12:48
PROVIDERS: PCP Nurse Practitioner Gerontology; Visit Provider Physician Assistant Surgical
DX: I50.9 Heart failure, unspecified (principal); I50.32 Chronic diastolic (congestive) heart failure; R05.3 Chronic cough; R13.10 Dysphagia, unspecified
CPT/HCPCS: 83880; 85025

== ENCOUNTER 2024-10-15 09:59 | Emergency (ER) | payer MEDICARE, MEDICAID, SELFPAY ==
[2024-10-15] VITALS (35 sets, daily range): BP systolic 114–154; BP diastolic 49–83; PULSE 79–95; RESP 16–26; TEMP 36.6–36.8; O2SAT 92–98
--- NOTE | 2024-10-15 10:00 | RT.EKG_ITS ---
APPROVED REPORT Exam: Resting ECG Reason for Exam: weak Patient Location: E HR:87 bpm ECG Measurements Heart Rate 87 AXIS MS 173 P 58 QRSd 139 QRS -68 QT 409 T 61 QTc 493 Conclusion Sinus rhythm...normal P axis, V-rate 60- 99 Left ventricular hypertrophy...multiple LVH criteria No Occlusion MS
--- NOTE | 2024-10-15 10:40 | W.ED.GENAD ---
Discharge Plan Discharge Details Chief Complaint: [facility] Primary Care Provider: Angelika Berumen ED Provider: Carolina Olson Home Meds and New Rx's Prescriptions: No Action melatonin 3 mg tablet 3 mg PO HS PRN Cosentyx UnoReady Pen 300 mg/2 mL (150 mg/mL) pen injector 300 mg subcut .q month magnesium gluconate [Mag-G] 27 mg magnesium (500 mg) tablet 27 mg PO TID benzonatate 100 mg capsule 100 mg PO TID fluticasone propion-salmeterol [Advair HFA] 115-21 mcg/actuation HFA aerosol inhaler 2 puff inhalation BID Qty: 12 12RF Rx Instructions: administer with spacer divalproex 250 mg tablet,delayed release (DR/EC) 250 mg PO BID ipratropium-albuterol 0.5 mg-3 mg(2.5 mg base)/3 mL solution for nebulization 3 ml inhalation Q6H PRN diclofenac sodium 1 % gel 4 g topical .Q8 PRN Rx Instructions: apply to right knee every 8 hours as needed guaifenesin 100 mg/5 mL liquid 200 mg PO Q4H PRN albuterol sulfate 90 mcg/actuation HFA aerosol inhaler 2 puff inhalation 6XD Rx Instructions: wheezing ondansetron HCl 4 mg tablet 4 mg PO Q6H PRN montelukast 10 mg tablet 10 mg PO DAILY atorvastatin 40 mg tablet 40 mg PO HS acetaminophen 500 mg Tablet 1,000 mg PO TID MDD 3000 mg Qty: 60 0RF ferrous sulfate 325 mg (65 mg iron) Tablet 325 mg PO DAILY Qty: 30 0RF pantoprazole 40 mg Tablet,Delayed Release (Dr/Ec) 40 mg PO DAILY@0730 Qty: 10 0RF (DME) lancets [FreeStyle Lancets] 28 gauge misc See Rx Instructions .Route Qty: 100 0RF Rx Instructions: As directed (DME) blood-glucose meter [FreeStyle Lite Meter] Kit See Rx Instructions .Route Qty: 1 0RF Rx Instructions: As directed (DME) FreeStyle Lite Strips Strip See Rx Instructions .Route Qty: 100 0RF Rx Instructions: As directed spironolactone 50 mg tablet 50 mg PO DAILY insulin glargine [Lantus Solostar U-100 Insulin] 100 unit/mL (3 mL) Insulin Pen 25 unit subcut QAM guaifenesin [Mucus Relief ER] 600 mg Tablet Extended Release 12hr 600 mg PO BID Qty: 14 0RF docusate sodium [Colace] 100 mg Capsule 100 mg PO BID Qty: 30 0RF levothyroxine 150 mcg tablet 150 mcg PO HS insulin aspart U-100 100 unit/mL (3 mL) insulin pen 1 sliding scale dose SUBCUT TID Rx Instructions: see sliding scale polyethylene glycol 3350 [ClearLax] 17 gram/dose powder 17 g PO DAILY calcium carbonate [Calcium 500] 500 mg calcium (1,250 mg) tablet,chewable 1,000 mg PO ONCE PRN Rx Instructions: 2 tabs Q3H insulin glargine [Lantus Solostar U-100 Insulin] 100 unit/mL (3 mL) insulin pen 56 unit subcut BID Trulicity 4.5 mg/0.5 mL pen injector 4.5 mg subcut QWEEK Patient Comments: Takes on per [facility] H&R MAR psyllium husk [Reguloid (psyllium husk)] 0.4 gram capsule 0.4 g PO DAILY Jardiance 10 mg tablet 10 mg PO DAILY furosemide 40 mg Tablet 40 mg PO BID Rx Instructions: Take one tab @ 0800 & 1400 [facility] General Date/Time Provider Initiated Documentation: 10/15/24 10:40. HPI Narrative: Nilam is a 74-year-old female who presents to the emergency department today for evaluation of persistent nausea/vomiting, left lower quadrant abdominal discomfort, and cough. She reports that yesterday she developed fatigue which bothered her all day, after dinner (pizza, which she thinks upset her stomach while the acid) she developed nausea/vomiting, was vomiting up bile all night. Today she reports all of her body aches, chills, left lower quadrant abdominal pain. Caregivers report that she has had crackles, are concerned about CHF vs PNA. Nilam reports that she has had coarse cough with shortness of breath and dizziness on exertion for the last couple of weeks. Denies recorded fevers, new congestion, sore throat, chest pain, blood in stool or emesis, change in urine output, recent diarrhea, change in pedal edema. PMH significant for diabetes, hypothyroidism, and CVA. She does have a history of abdominal surgery, including cholecystectomy. Denies history of malignancy, recent surgery/immobility, new calf swelling/redness/tenderness. She is on 2 L O2 per baseline. Physical exam remarkable for mild left lower quadrant tenderness with palpation. Abdomen is softly obese, nondistended, no guarding. Easy work of breathing, faint crackles/end expiratory wheezes noted in bilateral lung bases. Occasional congested cough. Normal heart sounds, regular rate and rhythm. Slightly tacky mucous membranes. Bilateral moderate pedal edema. Nerves II through XII intact as tested. EOMs intact. Clear speech. Full painless range of motion of neck. DDx includes but is not limited to: Gastritis, CHF, pneumonia, diverticulitis, partial bowel obstruction, pancreatitis, electrolyte imbalance, dehydration, HHS, VIVIAN I independently interpreted the following tests: EKG shows normal sinus rhythm, rate 87, LVH and IVCD unchanged from previous. No changes consistent with acute ischemia. CBC notable for leukocytosis, white cell count 18.45. CMP shows CKD unchanged from baseline. Lipase, flu/COVID/RSV are all unremarkable. Serial troponins reassuring (5 ->6). UA consistent with UTI, 10-20 white blood cells with many bacteria; this was obtained with straight cath. While in the emergency department Nilam received famotidine for probable gastritis and Tylenol/lidocaine patch for frontal headache with left trapezius spasm that occurred while she was in the emergency department. This resulted in full resolution of her headache, she is now feeling much better. History and presentation most consistent with UTI, concern for early pyelonephritis. Consulted with [facility] pharmacist. Reviewed patient's most recent urine culture results from 03/09/2024. Related Data Home Medications ?Medication ?Instructions ?Recorded ?Confirmed atorvastatin 40 mg tablet 40 mg PO HS 09/04/23 10/15/24 acetaminophen 500 mg tablet 1,000 mg (2 x 500 mg) PO TID #60 09/06/23 10/15/24 tabs blood sugar diagnostic (FreeStyle #100 ea 09/06/23 10/15/24 Lite Strips) blood-glucose meter (FreeStyle #1 ea 09/06/23 10/15/24 Lite Meter kit) ferrous sulfate 325 mg (65 mg 325 mg PO DAILY #30 tabs 03/19/24 04/28/25 iron) tablet lancets 28 gauge (FreeStyle #100 ea 09/06/23 10/15/24 Lancets) pantoprazole 40 mg tablet,delayed 40 mg PO DAILY@0730 #10 tabs 09/06/23 10/15/24 release levothyroxine 150 mcg tablet 150 mcg PO HS 10/19/23 10/15/24 insulin aspart U-100 100 unit/mL 1 sliding scale dose subcut TID 11/29/23 10/15/24 (3 mL) subcutaneous pen polyethylene glycol 3350 17 17 g PO DAILY 11/29/23 10/15/24 gram/dose oral powder (ClearLax) benzonatate 100 mg capsule 100 mg PO TID 03/01/24 10/15/24 magnesium gluconate 27 mg 27 mg PO TID 03/01/24 10/15/24 magnesium (500 mg) tablet (Mag-G) melatonin 3 mg tablet 3 mg PO HS PRN 03/15/24 10/15/24 secukinumab 300 mg/2 mL 300 mg subcut .q month 03/15/24 10/15/24 subcutaneous pen injector (Cosentyx UnoReady Pen) calcium carbonate (Calcium 500) 1,000 mg PO ONCE PRN 03/16/24 10/15/24 spironolactone 50 mg tablet 50 mg PO DAILY 04/28/24 10/15/24 insulin glargine 100 unit/mL (3 25 unit subcut QAM 05/14/24 10/15/24 mL) subcutaneous pen (Lantus Solostar U-100 Insulin) docusate sodium 100 mg capsule 100 mg PO BID #30 caps 05/16/24 10/15/24 (Colace) guaifenesin 600 mg tablet, 600 mg PO BID #14 tabs 05/16/24 10/15/24 extended release 12 hr (Mucus Relief ER) fluticasone propionate 115 2 puff inhalation BID #12 grams 06/06/24 10/15/24 mcg-salmeterol 21 mcg/actuation HFA inhaler (Advair HFA) albuterol sulfate 90 mcg/actuation 2 puff inhalation 6XD 09/20/24 10/15/24 aerosol inhaler diclofenac sodium 1 % topical gel 4 g topical .Q8 PRN 09/20/24 10/15/24 divalproex 250 mg tablet,delayed 250 mg PO BID 09/20/24 10/15/24 release guaifenesin 100 mg/5 mL oral liquid 200 mg PO Q4H PRN 09/20/24 10/15/24 insulin glargine 100 unit/mL (3 56 unit subcut BID 09/20/24 10/15/24 mL) subcutaneous pen (Lantus Solostar U-100 Insulin) ipratropium 0.5 mg-albuterol 3 mg 3 ml inhalation Q6H PRN 09/20/24 10/15/24 (2.5 mg base)/3 mL nebulization soln montelukast 10 mg tablet 10 mg PO DAILY 09/20/24 10/15/24 ondansetron HCl 4 mg tablet 4 mg PO Q6H PRN 09/20/24 10/15/24 dulaglutide 4.5 mg/0.5 mL 4.5 mg subcut QWEEK 10/15/24 10/15/24 subcutaneous pen injector (Trulicity) empagliflozin 10 mg tablet 10 mg PO DAILY 10/15/24 10/15/24 (Jardiance) furosemide 40 mg tablet 40 mg PO BID 10/15/24 10/15/24 psyllium husk 0.4 gram capsule 0.4 g PO DAILY 10/15/24 10/15/24 (Reguloid (psyllium husk)) Previous Rx's ?Medication ?Instructions ?Recorded acetaminophen 500 mg tablet 1,000 mg (2 x 500 mg) PO TID #60 09/06/23 tabs blood sugar diagnostic (FreeStyle #100 ea 09/06/23 Lite Strips) blood-glucose meter (FreeStyle #1 ea 09/06/23 Lite Meter kit) ferrous sulfate 325 mg (65 mg 325 mg PO DAILY #30 tabs 09/06/23 iron) tablet lancets 28 gauge (FreeStyle #100 ea 09/06/23 Lancets) pantoprazole 40 mg tablet,delayed 40 mg PO DAILY@0730 #10 tabs 09/06/23 release docusate sodium 100 mg capsule 100 mg PO BID #30 caps 05/16/24 (Colace) guaifenesin 600 mg tablet, 600 mg PO BID #14 tabs 05/16/24 extended release 12 hr (Mucus Relief ER) fluticasone propionate 115 2 puff inhalation BID #12 grams 06/06/ mcg-salmeterol 21 mcg/actuation HFA inhaler (Advair HFA) Allergies Allergy/AdvReac Type Severity Reaction Status Date / Time No Known Allergies Allergy Verified 10/15/24 10:07 General Stated Complaint: [facility] TRINIDAD: 3 Review of Systems Narrative: see HPI Exam Const General: cooperative, healthy appearing, comfortable and No well hydrated Nutritional Appearance: overweight Orientation: alert and oriented x3 HENMT Head: normal to inspection Ears: hearing grossly normal bilaterally General nose exam: external nose normal Face and sinus: normal facial exam Mouth: oral mucosae normal and lip normal Other: tacky MM Neck Neck: normal visual inspection, full ROM, no lymphadenopathy and No JVD Resp Effort & Inspection: normal respiratory effort and able to speak in complete sentences Auscultation: rhonchi (bases) Cardio Jugular venous pressure: no JVD Rate: regular rate Rhythm: regular rhythm GI Inspection: normal to inspection and obesity Palpation: soft, not firm, no guarding, not rigid and tender (LLQ) Auscultation: normal bowel sounds Skin General skin exam: no rashes or lesions noted Neuro General: patient alert, patient oriented x3, tone normal, moves all extremities, no focal motor deficits and CN's II-XI intact bilaterally Cranial Nerves: CN's II-XI intact bilaterally, EOM intact bilaterally and facial strength normal Cognition: normal cognition Speech: speech normal Motor: muscle tone normal throughout and strength 5/5 throughout Sensory Exam: no sensory deficits noted Extrem General: normal to inspection and pedal edema bilaterally (moderate from feet to below knees) Course Vital Signs Vital signs: Vital Signs Temperature 36.8 C 10/15/24 09:53 Pulse 93 H 10/15/24 09:53 Respiratory Rate 18 10/15/24 09:53 Blood Pressure 132/80 10/15/24 09:53 Pulse Oximetry 95 10/15/24 09:53 Temperature 36.8 C 10/15/24 10:12 Temperature Source Oral 10/15/24 10:12 Pulse 88 10/15/24 10:12 Respiratory Rate 17 10/15/24 10:13 Respiratory Effort Normal, Non-Labored 10/15/24 10:13 Respiratory Depth Normal 10/15/24 10:13 Respiratory Pattern Normal 10/15/24 10:13 Blood Pressure 139/75 10/15/24 10:12 Blood Pressure Position Supine 10/15/24 10:12 Pulse Oximetry 98 10/15/24 10:12 Oxygen Delivery Method Room Air 10/15/24 10:12 Oxygen Flow Rate 2 10/15/24 09:53 Pain Level 0 10/15/24 09:53 Medical Decision Making Imaging Data Radiologic Study: Radiologist's impression: Exam(s) XR CHEST 2V PA LATERAL EXAM: XR CHEST 2V PA LATERAL CLINICAL HISTORY: cough, sob TECHNIQUE: 2D digital imaging was performed. Two views. COMPARISON: CR XR CHEST 2V PA LATERAL from 05/14/[address] CHEST PE CTA from 05/14/2024 FINDINGS: HEART: Normal size. Aorta: Not dilated. PULMONARY VASCULATURE: Normal. MEDIASTINUM: Unremarkable. LUNGS: Clear. PLEURAL SPACE: No pleural effusion or pneumothorax. BONE:Unremarkable for age. SOFT TISSUES: Unremarkable. IMPRESSION: No acute abnormality. Radiologic Study #2: Radiologist's impression: Exam(s) CT CHEST/ABD/PEL W EXAM: CT CHEST/ABD/PEL W CLINICAL HISTORY: LLQ abdominal pain, persistent cough. TECHNIQUE: Imaging Protocol: Axial computed tomography images with coronal and sagittal reformatted images were created and reviewed. Computer aided detection (CAD) was utilized. CONTRAST MATERIAL: Intravenous: Omnipaque 350 Contrast volume:100 ml Oral: no COMPARISON: CT CT CHEST/ABD/PEL W from 11/29/[address] CHEST PE CTA from 05/14/2024 CR XR CHEST 2V PA LATERAL from 10/15/2024 FINDINGS: CHEST: Pulmonary parenchyma: Linear scarring at the left lung base. No consolidation. No dominant measurable mass. Tracheobronchial tree: No bronchiectasis. No mucous plugging.No bronchial wall thickening. Pleura: No effusion or pneumothorax. Mediastinum: Within normal limits. Pulmonary arteries: No visible emboli. Cardiovascular: The heart is mildly dilated. Coronary artery calcifications are present. No pericardial effusion. Thoracic aorta non-dilated. Bones: Unremarkable for age. No lytic or blastic lesions.No compression fractures. Soft tissues: Unremarkable. ABDOMEN and PELVIS: Liver: Normal density. No suspicious mass. Gallbladder and biliary tract: Cholecystectomy. No biliary dilatation. Pancreas: somewhat atrophic no abnormal calcifications or inflammatory process. Spleen: Normal. Kidneys: Normal size, contour and axis. No radiodense stones. No obstructive uropathy. No suspicious masses seen. Adrenal glands: No masses seen. Aorta: Abdominal portion non-dilated. Lymph nodes: Within normal limits. Soft tissues: Unremarkable. Bladder: Unremarkable. Bowel: No obstruction or bowel wall thickening. Moderate quantity of stool. Peritoneal cavity: No ascites. No focal collection. No mesenteric inflammatory response. No free air. Bones: Unremarkable for age. Reproductive organs: Unremarkable for age. IMPRESSION: No acute abnormality in the chest, abdomen or pelvis. Quality:[facility] Health Related Social Needs: Health related social needs details From [facility] All Active Problems (Updated 06/13/24 @ 00:03 by JUAN DANIEL OROZCO) Hypoxia (Acute) CHF (congestive heart failure) (Chronic) 2020, pt. 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 (Acute) Nail dystrophy (Acute) Onychomycosis (Acute) Edema (Acute) Type 2 diabetes mellitus with peripheral neuropathy (Acute) Paresthesias (Acute) Anemia in chronic illness (Acute) Transaminitis (Acute) Obesity (Chronic) Unstageable pressure ulcer of right heel (Acute) Poorly controlled type 2 diabetes mellitus with peripheral neuropathy (Acute) Low serum iron (Acute) Lumbar back pain with radiculopathy affecting right lower extremity (Acute) Ambulatory dysfunction (Acute) Weakness (Acute) Medical History Cholecystitis Constipation Hypothyroid Gram-negative bacteremia Pleural effusion, left Hyperglycemia due to type 2 diabetes mellitus Palliative care patient Physician orders for life-sustaining treatment (POLST) form indicates patient wish for [id number] status ACP (advance care planning) Urinary tract infection Stroke Diabetes CHF (congestive heart failure) 2020, pt. denies any deficits now Surgical History S/P cholecystectomy History of ERCP S/P tonsillectomy Family History (Updated 03/01/24 @ 10:33 by Una Alexander) Mother Cancer Social History Smoking/Tobacco Use Status: Never Smoking risk assessment performed?: Yes Alcohol Intake: never Drug use: Never Substance use type: does not use Housing: assisted living facility What is your relationship status?: Panel score (0-1 are the most socially isolated patients): 0 Do you feel safe at home: Yes Do you feel safe in your relationship?: Yes Additional Social history: PT RESIDES AT [facility]
--- NOTE | 2024-10-15 10:45 | DI.RAD_ITS ---
Exam(s) XR CHEST 2V PA LATERAL EXAM: XR CHEST 2V PA LATERAL CLINICAL HISTORY: cough, sob TECHNIQUE: 2D digital imaging was performed. Two views. COMPARISON: CR XR CHEST 2V PA LATERAL from 05/14/[address] CHEST PE CTA from 05/14/2024 FINDINGS: HEART: Normal size. Aorta: Not dilated. PULMONARY VASCULATURE: Normal. MEDIASTINUM: Unremarkable. LUNGS: Clear. PLEURAL SPACE: No pleural effusion or pneumothorax. BONE:Unremarkable for age. SOFT TISSUES: Unremarkable. IMPRESSION: No acute abnormality. DATA REPOSITORY: RADIATION DOSE DELIVERED:
[2024-10-15 11:06] LABS: Absolute Eosinophil Count 0.28 10^3/uL (0.0-0.7); Absolute Lymphocyte Count 1.75 10^3/uL (1.2-3.4); Absolute Neutrophil Count 14.91 10^3/uL (1.2-6.7); Basophils % 0.3 %; Eosinophils % 1.5 %; HCT 40.6 % (36.0-46.0); HGB 12.7 g/dL (11.2-15.7); Immature Grans % 0.5 %; Lymphocytes % 9.5 %; MCH 25.4 pg (27.0-33.0); MCHC 31.3 % (32.0-36.0); MCV 81 fL (80-95); MPV 9.6 fL (8.0-11.0); Monocytes % 7.4 %; Neutrophils % 80.8 %; Platelet Count 281 10^3/uL (130-400); RDW 15.9 % (11.7-14.6); RDW-SD 46.5 fL; WBC 18.45 10^3/uL (4.4-10.8)
[2024-10-15 11:09] LABS: Absolute Basophil Count 0.06 10^3/uL (0.0-0.2); Absolute Monocyte Count 1.37 10^3/uL (0.1-0.8)
[2024-10-15 11:31] LABS: ALT 18 U/L (14-59); AST 19 U/L (15-37); Albumin 3.3 g/dL (3.4-5.0); Alkaline Phosphatase 76 U/L (46-116); Anion Gap 7.3 mmol/L (3-11); BUN 23 mg/dL (7-18); Bilirubin, Total 0.5 mg/dL (0.2-1.0); CO2 34.7 mmol/L (21.0-32.0); CREATININE 1.2 mg/dL (0.55-1.02); Calcium 9.9 mg/dL (8.5-10.1); Chloride 97 mmol/L (98-107); Estimated GFR 47.21 (mL/min/1.73m2); Glucose 205 mg/dL (74-106); Lipase 30 U/L (<78); Magnesium 2.1 mg/dL (1.8-2.4); NT-proBNP 161 pg/mL (<300); Potassium 4.1 mmol/L (3.5-5.1); Sodium 139 mmol/L (136-145); Total Protein 8.6 g/dL (6.4-8.2); Troponin I 6 ng/L (<or=51)
[2024-10-15 11:59] LABS: Troponin I 5 ng/L (<or=51)
--- NOTE | 2024-10-15 12:00 | DI.CT_ITS ---
Exam(s) CT CHEST/ABD/PEL W EXAM: CT CHEST/ABD/PEL W CLINICAL HISTORY: LLQ abdominal pain, persistent cough. TECHNIQUE: Imaging Protocol: Axial computed tomography images with coronal and sagittal reformatted images were created and reviewed. Computer aided detection (CAD) was utilized. CONTRAST MATERIAL: Intravenous: Omnipaque 350 Contrast volume:100 ml Oral: no COMPARISON: CT CT CHEST/ABD/PEL W from 11/29/[address] CHEST PE CTA from 05/14/2024 CR XR CHEST 2V PA LATERAL from 10/15/2024 FINDINGS: CHEST: Pulmonary parenchyma: Linear scarring at the left lung base. No consolidation. No dominant measurab le mass. Tracheobronchial tree: No bronchiectasis. No mucous plugging.No bronchial wall thickening. Pleura: No effusion or pneumothorax. Mediastinum: Within normal limits. Pulmonary arteries: No visible emboli. Cardiovascular: The heart is mildly dilated. Coronary artery calcifications are present. No pericar dial effusion. Thoracic aorta non-dilated. Bones: Unremarkable for age. No lytic or blastic lesions.No compression fractures. Soft tissues: Unremarkable. ABDOMEN and PELVIS: Liver: Normal density. No suspicious mass. Gallbladder and biliary tract: Cholecystectomy. No biliary dilatation. Pancreas: somewhat atrophic no abnormal calcifications or inflammatory process. Spleen: Normal. Kidneys: Normal size, contour and axis. No radiodense stones. No obstructive uropathy. No suspicious masses seen. Adrenal glands: No masses seen. Aorta: Abdominal portion non-dilated. Lymph nodes: Within normal limits. Soft tissues: Unremarkable. Bladder: Unremarkable. Bowel: No obstruction or bowel wall thickening. Moderate quantity of stool. Peritoneal cavity: No ascites. No focal collection. No mesenteric inflammatory response. No free ai r. Bones: Unremarkable for age. Reproductive organs: Unremarkable for age. IMPRESSION: No acute abnormality in the chest, abdomen or pelvis. RADIATION DOSE DELIVERED: 1,115.61mGy.cm Total DLP DATA REPOSITORY: All CT scans at this facility are submitted to the National Radiology Data Registry (NRDR) Dose Index Registry (DIR) with the [employer] ([employer]). RADIATION OPTIMIZATION: All CT scans at this facility use at least one of these dose optimization te chniques: automated exposure control; mA and/or kV adjustment per patient size (includes targeted exa ms where dose is matched to clinical indication); or iterative reconstruction.
[2024-10-15 12:01] LABS: COVID-19 PCR Negative (Negative); Influenza A PCR Negative (Negative); Influenza B PCR Negative (Negative); RSV PCR Negative (Negative)
[2024-10-15 12:02] LABS: Source Nasopharynx
[2024-10-15] MEDS: Ondansetron 4 MG/2 ML VIAL IVP (12:28)
[2024-10-15] MEDS: Normal Saline 500 ML IV (12:28)
[2024-10-15] MEDS: Omnipaque 350 MG/ML 100 ML BTL IJ (13:04)
[2024-10-15] MEDS: Normal Saline - Diluent 50 ML VIAL IJ (13:05)
[2024-10-15] MEDS: Famotidine 20 MG/2 ML VIAL IVP (13:49)
[2024-10-15] MEDS: Lidocaine 5% Patch 1 PATCH TP (13:49)
[2024-10-15] MEDS: Acetaminophen 325 MG TAB 650 MG PO (13:49)
[2024-10-15 14:37] LABS: Bilirubin Negative (Negative); Blood Negative (Negative); Clarity Sl Cloudy (Clear); Glucose >=1000 mg/dL (Negative); Ketones Negative (Negative); Leukocyte Esterase Negative (Negative); Nitrite Negative (Negative); Specific Gravity <= 1.005 (1.005-1.025); Urobilinogen 0.2 mg/dL (Up to 0.2); pH 5.5 (5-8)
[2024-10-15 14:47] LABS: Bacteria Many HPF (Negative); C & S Indicated? No/Sq. Contamination; Casts Negative LPF (Negative); Crystals Negative HPF (Negative); Epithelial Cells Moderate HPF (Negative); Mucus Negative (Negative); Other Cells Rare Yeast (Negative); RBC 0-2 HPF (0-2)
[2024-10-15] MEDS: Fosfomycin Tromethamine 3 GM PACKET PO (15:21)
== END 2024-10-15 15:42 | disposition home or self-care (01) ==
PROVIDERS: Emergency Provider Nurse Practitioner Family; PCP Nurse Practitioner Gerontology
DX: N39.0 Urinary tract infection, site not specified (principal); R11.2 Nausea with vomiting, unspecified; R05.1 Acute cough; R10.32 Left lower quadrant pain
CPT/HCPCS: 99284; 99285; 96374; 96375; 51701; 36415; 74177; 80053; 83690; 87637; 93005; 96361; 71046; 71260; 81003; 81015; 83735; 83880; 84484; 85025; 93010; J2405; J3490

== ENCOUNTER 2024-10-18 19:16 | Outpatient (REF) | payer MEDICARE, MEDICAID, SELFPAY ==
[2024-10-18 19:52] LABS: Abs Immature Grans 0.06 10^3/uL (0.0-0.06); Absolute Basophil Count 0.04 10^3/uL (0.0-0.2); Absolute Monocyte Count 0.79 10^3/uL (0.1-0.8); Absolute Neutrophil Count 8.85 10^3/uL (1.2-6.7); Basophils % 0.3 %; Eosinophils % 2.5 %; HCT 38.5 % (36.0-46.0); HGB 11.6 g/dL (11.2-15.7); Immature Grans % 0.5 %; Lymphocytes % 16.5 %; MCH 25.1 pg (27.0-33.0); MCHC 30.1 % (32.0-36.0); MCV 83 fL (80-95); MPV 9.9 fL (8.0-11.0); Monocytes % 6.6 %; Neutrophils % 73.6 %; Platelet Count 319 10^3/uL (130-400); RBC 4.63 10^6/uL (3.93-5.22); RDW-SD 48.5 fL; WBC 12.03 10^3/uL (4.4-10.8)
[2024-10-18 19:53] LABS: Absolute Lymphocyte Count 1.98 10^3/uL (1.2-3.4)
[2024-10-18 20:08] LABS: ALT 20 U/L (14-59); AST 14 U/L (15-37); Albumin 3.3 g/dL (3.4-5.0); Alkaline Phosphatase 74 U/L (46-116); Anion Gap 9.8 mmol/L (3-11); BUN 13 mg/dL (7-18); Bilirubin, Total 0.4 mg/dL (0.2-1.0); CO2 30.2 mmol/L (21.0-32.0); CREATININE 1.2 mg/dL (0.55-1.02); Calcium 9.1 mg/dL (8.5-10.1); Chloride 99 mmol/L (98-107); Estimated GFR 47.21 (mL/min/1.73m2); Glucose 255 mg/dL (74-106); Potassium 3.9 mmol/L (3.5-5.1); Sodium 139 mmol/L (136-145); Total Protein 7.7 g/dL (6.4-8.2)
== END 2024-10-18 19:17 | disposition home or self-care (01) ==
LOC: LBN 19:16
PROVIDERS: PCP Nurse Practitioner Gerontology; Visit Provider Nurse Practitioner Gerontology
DX: D63.1 Anemia in chronic kidney disease (principal)
CPT/HCPCS: 80053; 85025

== ENCOUNTER 2024-11-15 19:18 | Outpatient (REF) | payer MEDICARE, MEDICAID, SELFPAY ==
[2024-11-15 20:32] LABS: Hemoglobin A1C 9.6 % (<5.7)
[2024-11-15 20:58] LABS: Anion Gap 8.5 mmol/L (3-11); BUN 26 mg/dL (7-18); CO2 31.5 mmol/L (21.0-32.0); CREATININE 1.1 mg/dL (0.55-1.02); Calcium 9.4 mg/dL (8.5-10.1); Calculated LDL 56 mg/dL (<100); Chloride 96 mmol/L (98-107); Cholesterol 170 mg/dL (<200); Glucose 208 mg/dL (74-106); HDL Cholesterol 40 mg/dL (>or=50); Potassium 3.7 mmol/L (3.5-5.1); Sodium 136 mmol/L (136-145); Triglyceride 372 mg/dL (<150); Vitamin D 25 Total 23 ng/mL (30-100)
== END 2024-11-15 19:19 | disposition home or self-care (01) ==
LOC: LBN 19:18
PROVIDERS: PCP Nurse Practitioner Gerontology; Visit Provider Student in an Organized Health Care Education/Training Program
DX: E11.65 Type 2 diabetes mellitus with hyperglycemia (principal); Z79.4 Long term (current) use of insulin
CPT/HCPCS: 80048; 80061; 82306; 83036

== ENCOUNTER → 2024-12-20 10:26 | Outpatient (BNVA) | payer MEDICARE, MEDICAID, SELFPAY | PROVIDERS: PCP Nurse Practitioner Gerontology; Referring Provider Nurse Practitioner Gerontology; Visit Provider Physician Assistant Surgical | DX: R05.3 Chronic cough (principal); R13.10 Dysphagia, unspecified; R51.9 Headache, unspecified | CPT/HCPCS: 99214 ==

== ENCOUNTER 2024-12-20 11:16 | Emergency (ER) | payer MEDICARE, MEDICAID, SELFPAY ==
[2024-12-20] VITALS (18 sets, daily range): BP systolic 102–134; BP diastolic 61–73; PULSE 61–97; RESP 16; TEMP 36.7; O2SAT 94–98
--- NOTE | 2024-12-20 11:44 | W.ED.GENAD ---
Discharge Plan Disposition Patient Disposition: Home Condition: Good Discharge Details Clinical Impression: Headache Primary Care Provider: Nadya Berumen ED Provider: Norberto Grijalva Home Meds and New Rx's Prescriptions: No Action melatonin 3 mg tablet 3 mg PO HS PRN Cosentyx UnoReady Pen 300 mg/2 mL (150 mg/mL) pen injector 300 mg subcut .q month magnesium gluconate [Mag-G] 27 mg magnesium (500 mg) tablet 27 mg PO TID benzonatate 100 mg capsule 100 mg PO TID fluticasone propion-salmeterol [Advair HFA] 115-21 mcg/actuation HFA aerosol inhaler 2 puff inhalation BID Qty: 12 12RF Rx Instructions: administer with spacer divalproex 250 mg tablet,delayed release (DR/EC) 250 mg PO BID ipratropium-albuterol 0.5 mg-3 mg(2.5 mg base)/3 mL solution for nebulization 3 ml inhalation Q6H PRN diclofenac sodium 1 % gel 4 g topical .Q8 PRN Rx Instructions: apply to right knee every 8 hours as needed guaifenesin 100 mg/5 mL liquid 200 mg PO Q4H PRN albuterol sulfate 90 mcg/actuation HFA aerosol inhaler 2 puff inhalation 6XD Rx Instructions: wheezing ondansetron HCl 4 mg tablet 4 mg PO Q6H PRN montelukast 10 mg tablet 10 mg PO DAILY atorvastatin 40 mg tablet 40 mg PO HS acetaminophen 500 mg Tablet 1,000 mg PO TID MDD 3000 mg Qty: 60 0RF ferrous sulfate 325 mg (65 mg iron) Tablet 325 mg PO DAILY Qty: 30 0RF pantoprazole 40 mg Tablet,Delayed Release (Dr/Ec) 40 mg PO DAILY@0730 Qty: 10 0RF (DME) lancets [FreeStyle Lancets] 28 gauge misc See Rx Instructions .Route Qty: 100 0RF Rx Instructions: As directed (DME) blood-glucose meter [FreeStyle Lite Meter] Kit See Rx Instructions .Route Qty: 1 0RF Rx Instructions: As directed (DME) FreeStyle Lite Strips Strip See Rx Instructions .Route Qty: 100 0RF Rx Instructions: As directed spironolactone 50 mg tablet 50 mg PO DAILY insulin glargine [Lantus Solostar U-100 Insulin] 100 unit/mL (3 mL) Insulin Pen 25 unit subcut QAM guaifenesin [Mucus Relief ER] 600 mg Tablet Extended Release 12hr 600 mg PO BID Qty: 14 0RF docusate sodium [Colace] 100 mg Capsule 100 mg PO BID Qty: 30 0RF levothyroxine 150 mcg tablet 150 mcg PO HS insulin aspart U-100 100 unit/mL (3 mL) insulin pen 1 sliding scale dose SUBCUT TID Rx Instructions: see sliding scale polyethylene glycol 3350 [ClearLax] 17 gram/dose powder 17 g PO DAILY calcium carbonate [Calcium 500] 500 mg calcium (1,250 mg) tablet,chewable 1,000 mg PO ONCE PRN Rx Instructions: 2 tabs Q3H insulin glargine [Lantus Solostar U-100 Insulin] 100 unit/mL (3 mL) insulin pen 56 unit subcut BID Trulicity 4.5 mg/0.5 mL pen injector 4.5 mg subcut QWEEK Patient Comments: Takes on per [facility] [facility] psyllium husk [Reguloid (psyllium husk)] 0.4 gram capsule 0.4 g PO DAILY Jardiance 10 mg tablet 10 mg PO DAILY furosemide 40 mg Tablet 40 mg PO BID Rx Instructions: Take one tab @ 0800 & 1400 Discharge Instructions Instructions: Headache, Adult ED Additional Instructions: At this time your CT scan shows no evidence of mass, bleed, or other significant abnormalities. You do have 2 small frontal sinus cysts. But these are unlikely to be causing headache. Please take Tylenol as needed. If you notice any worsening of your symptoms, or any new symptoms such as vomiting, diarrhea, fever, chills, shortness of breath, chest pain, numbness, weakness, or fainting , please return immediately to the emergency department for reevaluation. Please follow up with your primary care provider as soon as possible for reassessment and reevaluation. As always, it was a pleasure participating in your medical care today. Referrals: Nadya Berumen NP [Primary Care Provider, Medicine] HPI General Date/Time Provider Initiated Documentation: 12/20/24 11:42. HPI Narrative: 74-year-old female with a past medical history of type 2 diabetes, high cholesterol, mild congestive heart failure, hypothyroidism, GERD, chronic cough, who resides at the [facility], presents today for evaluation of headache. The patient was at the pulmonology office being evaluated for her chronic cough. While there she developed a mild left-sided headache. Per the patient she states that she has had this headache for the last 3 days, it is on the left side of her head, sharp in nature, she recently had COVID a few weeks ago. She is on 2 L of oxygen at baseline. The headache seems to come and go in severity. However currently she states that the headache is gone completely and that she feels fine. She denies any falls or trauma. She denies any history of brain bleed. She denies any chest pain or shortness of breath. She denies any visual changes. No other complaints at this time. She denies any other modifying factors. She states she otherwise feels well right now. Related Data Home Medications ?Medication ?Instructions ?Recorded ?Confirmed atorvastatin 40 mg tablet 40 mg PO HS 09/04/23 12/20/24 acetaminophen 500 mg tablet 1,000 mg (2 x 500 mg) PO TID #60 09/06/23 12/20/24 tabs blood sugar diagnostic (FreeStyle #100 ea 09/06/23 12/20/24 Lite Strips) blood-glucose meter (FreeStyle #1 ea 09/06/23 12/20/24 Lite Meter kit) ferrous sulfate 325 mg (65 mg 325 mg PO DAILY #30 tabs 09/06/23 12/20/24 iron) tablet lancets 28 gauge (FreeStyle #100 ea 09/06/23 12/20/24 Lancets) pantoprazole 40 mg tablet,delayed 40 mg PO DAILY@0730 #10 tabs 09/06/23 12/20/24 release levothyroxine 150 mcg tablet 150 mcg PO HS 10/19/23 12/20/24 insulin aspart U-100 100 unit/mL 1 sliding scale dose subcut TID 11/29/23 12/20/24 (3 mL) subcutaneous pen polyethylene glycol 3350 17 17 g PO DAILY 11/29/23 12/20/24 gram/dose oral powder (ClearLax) benzonatate 100 mg capsule 100 mg PO TID 03/01/24 12/20/24 magnesium gluconate 27 mg 27 mg PO TID 03/01/24 12/20/24 magnesium (500 mg) tablet (Mag-G) melatonin 3 mg tablet 3 mg PO HS PRN 03/15/24 12/20/24 secukinumab 300 mg/2 mL 300 mg subcut .q month 03/15/24 12/20/24 subcutaneous pen injector (Cosentyx UnoReady Pen) calcium carbonate (Calcium 500) 1,000 mg PO ONCE PRN 03/16/24 12/20/24 spironolactone 50 mg tablet 50 mg PO DAILY 04/28/24 12/20/24 insulin glargine 100 unit/mL (3 25 unit subcut QAM 05/14/24 12/20/24 mL) subcutaneous pen (Lantus Solostar U-100 Insulin) docusate sodium 100 mg capsule 100 mg PO BID #30 caps 05/16/24 12/20/24 (Colace) guaifenesin 600 mg tablet, 600 mg PO BID #14 tabs 05/16/24 12/20/24 extended release 12 hr (Mucus Relief ER) fluticasone propionate 115 2 puff inhalation BID #12 grams 06/06/24 12/20/24 mcg-salmeterol 21 mcg/actuation HFA inhaler (Advair HFA) albuterol sulfate 90 mcg/actuation 2 puff inhalation 6XD 09/20/24 12/20/24 aerosol inhaler diclofenac sodium 1 % topical gel 4 g topical .Q8 PRN 09/20/24 12/20/24 divalproex 250 mg tablet,delayed 250 mg PO BID 09/20/24 12/20/24 release guaifenesin 100 mg/5 mL oral liquid 200 mg PO Q4H PRN 09/20/24 12/20/24 insulin glargine 100 unit/mL (3 56 unit subcut BID 09/20/24 12/20/24 mL) subcutaneous pen (Lantus Solostar U-100 Insulin) ipratropium 0.5 mg-albuterol 3 mg 3 ml inhalation Q6H PRN 09/20/24 12/20/24 (2.5 mg base)/3 mL nebulization soln montelukast 10 mg tablet 10 mg PO DAILY 09/20/24 12/20/24 ondansetron HCl 4 mg tablet 4 mg PO Q6H PRN 09/20/24 12/20/24 dulaglutide 4.5 mg/0.5 mL 4.5 mg subcut QWEEK 10/15/24 12/20/24 subcutaneous pen injector (Trulicity) empagliflozin 10 mg tablet 10 mg PO DAILY 10/15/24 12/20/24 (Jardiance) furosemide 40 mg tablet 40 mg PO BID 10/15/24 12/20/24 psyllium husk 0.4 gram capsule 0.4 g PO DAILY 10/15/24 12/20/24 (Reguloid (psyllium husk)) Previous Rx's ?Medication ?Instructions ?Recorded acetaminophen 500 mg tablet 1,000 mg (2 x 500 mg) PO TID #60 09/06/23 tabs blood sugar diagnostic (FreeStyle #100 ea 09/06/23 Lite Strips) blood-glucose meter (FreeStyle #1 ea 09/06/23 Lite Meter kit) ferrous sulfate 325 mg (65 mg 325 mg PO DAILY #30 tabs 09/06/23 iron) tablet lancets 28 gauge (FreeStyle #100 ea 09/06/23 Lancets) pantoprazole 40 mg tablet,delayed 40 mg PO DAILY@0730 #10 tabs 09/06/23 release docusate sodium 100 mg capsule 100 mg PO BID #30 caps 05/16/24 (Colace) guaifenesin 600 mg tablet, 600 mg PO BID #14 tabs 05/16/24 extended release 12 hr (Mucus Relief ER) fluticasone propionate 115 2 puff inhalation BID #12 grams 06/06/24 mcg-salmeterol 21 mcg/actuation HFA inhaler (Advair HFA) Allergies Allergy/AdvReac Type Severity Reaction Status Date / Time No Known Allergies Allergy Verified 12/20/24 10:17 General Stated Complaint: Headache TRINIDAD: 3 Exam Narrative Exam Narrative: 1.Const: Well-nourished, Well-developed, appearing stated age 2.Eyes: PERRL, no conjunctival injection, and symmetrical lids. Maco-Pen testing was performed, patient's left eye demonstrates average pressures of 16 on 5 different tests. 3.ENT: Atraumatic external nose and ears. Moist MM. Neck: Symmetric, trachea midline, No thyromegaly. Patient demonstrates good movement of cervical neck. There is no nuchal rigidity, no nuchal tenderness. Patient is able to flex the neck without any difficulty or significant pain. Negative Kernig's and Brudzinski sign. 4.CVS: +S1/S2, Peripheral pulses 2+ and equal in all extremities. Brisk capillary refill in all extremities. 5.RESP: Unlabored respiratory effort. Clear to auscultation bilaterally. No wheezes rales or rhonchi 6.GI: Soft, Nontender/Nondistended, No hepatosplenomegaly. No guarding or rebound. 7.MSK: Normocephalic/Atraumatic, Extremities w/o deformity or ttp No cyanosis or clubbing, Normal movement of all extremities 8.Skin: Warm, Dry. No rashes or lesions. 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 Sensation grossly intact, no focal neurologic deficits. Normal movement of all extremities. 10.Psych: (AAO) x3. Appropriate mood and affect Course Vital Signs Vital signs: Vital Signs Temperature 36.7 C 12/20/24 11:19 Pulse 95 H 12/20/24 11:19 Respiratory Rate 16 12/20/24 11:19 Blood Pressure 134/73 12/20/24 11:19 Pulse Oximetry 97 12/20/24 11:19 Temperature 36.7 C 12/20/24 11:32 Temperature Source Oral 12/20/24 11:32 Pulse 95 H 12/20/24 11:32 Respiratory Rate 16 12/20/24 11:32 Blood Pressure 134/73 12/20/24 11:32 Blood Pressure Position Supine 12/20/24 11:32 Pulse Oximetry 97 12/20/24 11:32 Oxygen Delivery Method Room Air 12/20/24 11:32 Oxygen Flow Rate 0 12/20/24 11:32 Pain Level 0 12/20/24 11:32 Medical Decision Making 74-year-old female with a past medical history of type 2 diabetes, high cholesterol, mild congestive heart failure, hypothyroidism, GERD, chronic cough, who resides at the [facility], presents today for evaluation of headache. The patient was at the pulmonology office being evaluated for her chronic cough. While there she developed a mild left-sided headache. Per the patient she states that she has had this headache for the last 3 days, it is on the left side of her head, sharp in nature, she recently had COVID a few weeks ago. She is on 2 L of oxygen at baseline. The headache seems to come and go in severity. However currently she states that the headache is gone completely and that she feels fine. She denies any falls or trauma. She denies any history of brain bleed. She denies any chest pain or shortness of breath. She denies any visual changes. No other complaints at this time. She denies any other modifying factors. She states she otherwise feels well right now. Exam demonstrates a well-appearing female, no guarding or rebound. No neurologic deficits, no nuchal rigidity, no active headache at this time. No evidence of shingles on her face, no evidence of otitis media. She has no headache at this time, no evidence of periapical abscess. She has no neck stiffness to suggest meningitis. No other concerning components. Will get screening CT scan to make sure there is no evidence of bleed or tumor causing headache, she has no temporal artery tenderness suggesting temporal arteritis. Will monitor closely and reassess. 12:15 PM Patient had large episode of diarrhea while here. She has not been on any recent antibiotics. Will do C. difficile testing. Pending CAT scan still. There was a delay because of the diarrhea. 2:[address] scan of the head negative for acute process. C. difficile testing negative. Patient has very mild headache. Will be given Tylenol. Will be discharged. Discussed red flags which to return. Symptoms at this time inconsistent with giant cell temporal arteritis, meningitis, acute angle-closure glaucoma, subdural hematoma, or other life-threatening etiology. I have extensively reviewed the treatment plan and discharge instructions with the patient. I have addressed all patient concerns at this time. The patient was made aware of what symptoms to monitor for that would warrant a return to the emergency department. Discussed the plan with the patient, they demonstrate verbal understanding and agreement with our assessment and plan at this time. The documentation in this chart was dictated using [employer] dictation software. Please excuse any dictation errors. FINDINGS: There are no skull fractures. There is again noted abnormal mucosal thickening in both frontal sinuses, not associated with fluid levels. There is periosteal thickening and fluid in both maxillary sinuses and evidence of previous surgery-surgical defects in the medial trevino of both maxillary sinuses. Mild mucosal thickening noted in the sphenoid sinuses. Mastoid air cells are clear. There is no evidence of intracranial hemorrhage, mass effect, or shift of midline structures. There are no extra-axial fluid collections. The ventricles are not enlarged or shifted and there is no blood within the ventricular system nor within the basal cisterns. Lacunar infarcts in the right caudate and basal ganglia are again noted and a lesser amount of the same seen on the left side, also unchanged. No evidence of intracranial hemorrhage nor obvious new territorial infarct. No new orbital findings. IMPRESSION: No acute intracranial findings on this noninfused CT scan of the brain. There are nonacute nonhemorrhagic lacunar infarcts in the basal ganglia bilaterally as well as in the right caudate nucleus, unchanged from 03/22/2024. There is evidence of prior bilateral maxillary sinus surgery. There also densities in both frontal sinuses noted which are unchanged from prior CT scan of 03/22/2024. Discussed by phone with ER physician 12/20/2024 at 1:48 p.m. Quality:SDOH Health Related Social Needs: Health related social needs details From [facility] All Active Problems (Updated 12/20/24 @ 14:14 by Norberto Grijalva DO) Headache (Acute) Headache (Acute) Hypoxia (Acute) CHF (congestive heart failure) (Chronic) 2020, pt. 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 (Acute) Nail dystrophy (Acute) Onychomycosis (Acute) Edema (Acute) Type 2 diabetes mellitus with peripheral neuropathy (Acute) Paresthesias (Acute) Anemia in chronic illness (Acute) Transaminitis (Acute) Obesity (Chronic) Unstageable pressure ulcer of right heel (Acute) Poorly controlled type 2 diabetes mellitus with peripheral neuropathy (Acute) Low serum iron (Acute) Lumbar back pain with radiculopathy affecting right lower extremity (Acute) Ambulatory dysfunction (Acute) Weakness (Acute) Medical History Cholecystitis Constipation Hypothyroid Gram-negative bacteremia Pleural effusion, left Hyperglycemia due to type 2 diabetes mellitus Palliative care patient Physician orders for life-sustaining treatment (POLST) form indicates patient wish for [id number] status ACP (advance care planning) Urinary tract infection Stroke Diabetes CHF (congestive heart failure) 2020, pt. denies any deficits now Surgical History S/P cholecystectomy History of ERCP S/P tonsillectomy Family History (Updated 03/01/24 @ 10:33 by Una Alexander) Mother Cancer Social History Smoking/Tobacco Use Status: Never Smoking risk assessment performed?: Yes Alcohol Intake: never Drug use: Never Substance use type: does not use Housing: assisted living facility What is your relationship status?: Panel score (0-1 are the most socially isolated patients): 0 Do you feel safe at home: Yes Do you feel safe in your relationship?: Yes Additional Social history: PT RESIDES AT [employer]
--- NOTE | 2024-12-20 13:32 | DI.CT_ITS ---
Exam(s) CT HEAD WO EXAM: CT HEAD WO CLINICAL HISTORY: headache, left sided. TECHNIQUE: Imaging Protocol: Axial computed tomography images with coronal and sagittal reformatted images were created and reviewed COMPARISON: CT CT HEAD WO from 03/22/2024 FINDINGS: There are no skull fractures. There is again noted abnormal mucosal thickening in both frontal sinuses, not associated with fluid levels. There is periosteal thickening and fluid in both maxillary sinuses and evidence of previous surgery- surgical defects in the medial trevino of both maxillary sinuses. Mild mucosal thickening noted in the sphenoid sinuses. Mastoid air cells are clear. There is no evidence of intracranial hemorrhage, mass effect, or shift of midline structures. There are no extra-axial fluid collections. The ventricles are not enlarged or shifted and there is no blood within the ventricular system nor within the basal cisterns. Lacunar infarcts in the right caudate and basal ganglia are again noted and a lesser amount of the same seen on the left side, also unchanged. No evidence of intracranial hemorrhage nor obvious new territorial infarct. No new orbital findings. IMPRESSION: No acute intracranial findings on this noninfused CT scan of the brain. There are nonacute nonhemorrhagic lacunar infarcts in the basal ganglia bilaterally as well as in the right caudate nucleus, unchanged from 03/22/2024. There is evidence of prior bilateral maxillary sinus surgery. There also densities in both frontal sinuses noted which are unchanged from prior CT scan of 03/22/2024. Discussed by phone with ER physician 12/20/2024 at 1:48 p.m. RADIATION DOSE DELIVERED: 872.7mGy.cm Total DLP DATA REPOSITORY: All CT scans at this facility are submitted to the National Radiology Data Registry (NRDR) Dose Index Registry (DIR) with the [employer] (ACR). RADIATION OPTIMIZATION: All CT scans at this facility use at least one of these dose optimization techniques: automated exposure control; mA and/or kV adjustment per patient size (includes targeted exams where dose is matched to clinical indication); or iterative reconstruction.
[2024-12-20 13:41] LABS: EPI 027-NAP1-B1 PRESUMPTIVE NEGATIVE
[2024-12-20] MEDS: Acetaminophen 500 MG TAB (14:16)
[2024-12-21 11:52] LABS: Campylobacter PCR Negative (Negative); Shiga Toxin PCR Negative (Negative); Shigella/Enteroinvasive Ecoli Negative (Negative)
== END 2024-12-20 17:25 | disposition home or self-care (01) ==
PROVIDERS: Emergency Provider Student in an Organized Health Care Education/Training Program; PCP Nurse Practitioner Gerontology
DX: R51.9 Headache, unspecified (principal); R05.3 Chronic cough; E11.9 Type 2 diabetes mellitus without complications; E03.9 Hypothyroidism, unspecified; I69.354 Hemiplegia and hemiparesis following cerebral infarction affecting left non-dominant side; Z79.4 Long term (current) use of insulin
CPT/HCPCS: 87015; 87269; 87272; 87505; 99214; 99284; 70450

== ENCOUNTER 2024-12-24 18:51 | Outpatient (REF) | payer MEDICARE, MEDICAID, SELFPAY | END 2024-12-24 18:52 | disposition home or self-care (01) | LOC: LBN 18:51 | PROVIDERS: PCP Nurse Practitioner Gerontology; Visit Provider Nurse Practitioner Gerontology | DX: F31.9 Bipolar disorder, unspecified (principal) | CPT/HCPCS: 80164 ==

== ENCOUNTER 2025-01-21 18:00 | Outpatient (REF) | payer MEDICARE, MEDICAID, SELFPAY ==
[2025-01-21 18:11] LABS: Abs Immature Grans 0.05 10^3/uL (0.0-0.06); HCT 37.0 % (36.0-46.0); HGB 11.7 g/dL (11.2-15.7); Immature Grans % 0.5 %; MCH 25.2 pg (27.0-33.0); MCHC 31.6 % (32.0-36.0); MCV 80 fL (80-95); MPV 10.0 fL (8.0-11.0); Platelet Count 256 10^3/uL (130-400); RBC 4.64 10^6/uL (3.93-5.22); RDW 16.3 % (11.7-14.6); RDW-SD 47.2 fL; WBC 9.47 10^3/uL (4.4-10.8)
[2025-01-21 18:46] LABS: ALT 24 U/L (14-59); AST 14 U/L (15-37); Albumin 3.1 g/dL (3.4-5.0); Alkaline Phosphatase 61 U/L (46-116); Anion Gap 6.7 mmol/L (3-11); BUN 21 mg/dL (7-18); Bilirubin, Total 0.4 mg/dL (0.2-1.0); CO2 32.3 mmol/L (21.0-32.0); Calcium 9.0 mg/dL (8.5-10.1); Chloride 98 mmol/L (98-107); Estimated GFR 47.21 (mL/min/1.73m2); Glucose 216 mg/dL (74-106); Magnesium 2.3 mg/dL (1.8-2.4); Potassium 4.1 mmol/L (3.5-5.1); Sodium 137 mmol/L (136-145); TSH (W/Ref FT4) 0.65 uIU/mL (0.36-3.74); Total Protein 7.2 g/dL (6.4-8.2)
[2025-01-21 18:53] LABS: Hemoglobin A1C 8.4 % (<5.7)
== END 2025-01-21 18:01 | disposition home or self-care (01) ==
LOC: LBN 18:00
PROVIDERS: PCP Nurse Practitioner Gerontology; Visit Provider Nurse Practitioner Gerontology
DX: R73.02 Impaired glucose tolerance (oral) (principal); R53.82 Chronic fatigue, unspecified; D63.1 Anemia in chronic kidney disease
CPT/HCPCS: 80053; 80164; 83036; 83735; 84443; 85025

== ENCOUNTER 2025-01-23 22:30 | Inpatient (IN) | payer MEDICARE, MEDICAID, SELFPAY ==
[2025-01-23] VITALS (9 sets, daily range): BP systolic 115–143; BP diastolic 58–75; PULSE 106–123; RESP 30–40; TEMP 39.4; O2SAT 91–95
--- NOTE | 2025-01-23 22:30 | DI.RAD_ITS ---
Exam(s) XR PORTABLE CHEST AP EXAM: XR PORTABLE CHEST AP CLINICAL HISTORY: cough, sob, hypoxic TECHNIQUE: 2D digital imaging was performed of the chest. Two images were obtained. AP views were obtained. COMPARISON: CR XR CHEST 2V PA LATERAL from 10/15/2024 FINDINGS: The examination is limited by poor inspiration and patient positioning. MEDIASTINUM: Normal. HEART: Cardiomegaly. PULMONARY VASCULATURE: Normal. LUNGS: There is obscuration of the left hemidiaphragm and an opacity in the left lung base. This areas complicated by the patient positioning. The right lung is clear. PLEURAL SPACE: No pleural effusion or pneumothorax. BONE:Within normal limits for the patient's age. OTHER FINDINGS:Normal. IMPRESSION: 1. Examination limited by patient positioning and low lung volumes. 2. Question of a left basilar infiltrate. 3. Cardiomegaly. 4. The preliminary [facility] report was reviewed. DATA REPOSITORY: RADIATION DOSE DELIVERED:
--- NOTE | 2025-01-23 22:30 | RT.EKG_ITS ---
APPROVED REPORT Exam: Resting ECG Reason for Exam: AMS Patient Location: E HR:116 bpm ECG Measurements Heart Rate 116 AXIS VT 154 P 71 QRSd 129 QRS -67 QT 349 T 78 QTc 486 Conclusion Sinus tachycardia...rate> 99 Left bundle branch block...QRSd>120, broad/notched R Physician: negative for sgarbossa, unchanged
--- NOTE | 2025-01-23 22:39 | W.ED.GENAD ---
Discharge Plan Disposition Patient Disposition: Admit to [facility] Discharge Details Clinical Impression: Pneumonia, Severe sepsis Primary Care Provider: Nadya Berumen ED Provider: Norberto Grijalva Home Meds and New Rx's Prescriptions: No Action melatonin 3 mg tablet 3 mg PO HS PRN Cosentyx UnoReady Pen 300 mg/2 mL (150 mg/mL) pen injector 300 mg subcut .q month magnesium gluconate [Mag-G] 27 mg magnesium (500 mg) tablet 27 mg PO TID benzonatate 100 mg capsule 100 mg PO TID fluticasone propion-salmeterol [Advair HFA] 115-21 mcg/actuation HFA aerosol inhaler 2 puff inhalation BID Qty: 12 12RF Rx Instructions: administer with spacer divalproex 250 mg tablet,delayed release (DR/EC) 750 mg PO BID ipratropium-albuterol 0.5 mg-3 mg(2.5 mg base)/3 mL solution for nebulization 3 ml inhalation Q6H PRN diclofenac sodium 1 % gel 4 g topical .Q8 PRN Rx Instructions: apply to right knee every 8 hours as needed guaifenesin 100 mg/5 mL liquid 200 mg PO Q4H PRN albuterol sulfate 90 mcg/actuation HFA aerosol inhaler 2 puff inhalation 6XD Rx Instructions: wheezing ondansetron HCl 4 mg tablet 4 mg PO Q6H PRN montelukast 10 mg tablet 10 mg PO DAILY atorvastatin 40 mg tablet 40 mg PO HS acetaminophen 500 mg Tablet 1,000 mg PO TID MDD 3000 mg Qty: 60 0RF ferrous sulfate 325 mg (65 mg iron) Tablet 325 mg PO DAILY Qty: 30 0RF pantoprazole 40 mg Tablet,Delayed Release (Dr/Ec) 40 mg PO DAILY@0730 Qty: 10 0RF (DME) lancets [FreeStyle Lancets] 28 gauge misc See Rx Instructions .Route Qty: 100 0RF Rx Instructions: As directed (DME) blood-glucose meter [FreeStyle Lite Meter] Kit See Rx Instructions .Route Qty: 1 0RF Rx Instructions: As directed (DME) FreeStyle Lite Strips Strip See Rx Instructions .Route Qty: 100 0RF Rx Instructions: As directed spironolactone 50 mg tablet 50 mg PO DAILY insulin glargine [Lantus Solostar U-100 Insulin] 100 unit/mL (3 mL) Insulin Pen 25 unit subcut QAM guaifenesin [Mucus Relief ER] 600 mg Tablet Extended Release 12hr 600 mg PO BID Qty: 14 0RF docusate sodium [Colace] 100 mg Capsule 100 mg PO BID Qty: 30 0RF insulin lispro 100 unit/mL insulin pen 4 unit SUBCUT Rx Instructions: Give 4 units in addition to sliding scale. Do not give if BS is under 200. insulin lispro [Humalog KwikPen Insulin] 100 unit/mL insulin pen 4 unit subcut TID Rx Instructions: Give 4 units in addition to sliding scale. Do not give if BS is under 200. budesonide-formoterol 160-4.5 mcg/actuation HFA aerosol inhaler 2 puff INHALATION BID chlorhexidine gluconate [Hibiclens] 4 % liquid 1 applic topical DAILY Rx Instructions: as a single dose ferrous gluconate 324 mg (37.5 mg iron) tablet 324 mg PO DAILY levothyroxine 150 mcg tablet 150 mcg PO HS insulin aspart U-100 100 unit/mL (3 mL) insulin pen 1 sliding scale dose SUBCUT TID Rx Instructions: see sliding scale polyethylene glycol 3350 [ClearLax] 17 gram/dose powder 17 g PO DAILY calcium carbonate [Calcium 500] 500 mg calcium (1,250 mg) tablet,chewable 1,000 mg PO ONCE PRN Rx Instructions: 2 tabs Q3H insulin glargine [Lantus Solostar U-100 Insulin] 100 unit/mL (3 mL) insulin pen 63 unit subcut BID Trulicity 4.5 mg/0.5 mL pen injector 4.5 mg subcut QWEEK Patient Comments: Takes on per [facility] H&R MAR psyllium husk [Reguloid (psyllium husk)] 0.4 gram capsule 0.4 g PO DAILY Jardiance 10 mg tablet 10 mg PO DAILY furosemide 40 mg Tablet 40 mg PO BID Rx Instructions: Take one tab @ 0800 & 1400 [facility] General Date/Time Provider Initiated Documentation: 01/23/25 22:34. HPI Narrative: 74-year-old female with a past medical history of type 2 diabetes, high cholesterol, mild congestive heart failure, hypothyroidism, GERD, chronic cough, who resides at the [facility], who presents today for altered mental status. The [facility] states that at 7 PM the patient was notably altered compared to her baseline, oxygen status was 80% on room air which is not normal for her. She was started on 2 L, EMS was called, and she was transition to the ED. Currently the patient has no complaints secondary to altered mental status. No history from the [facility] of recent fall, or vomiting over the patient does have a small amount of dried brown precipitate on the right side of her mouth. EMS states this may have been from chocolate pudding. But it is not totally clear. No other complaints at this time. Patient is a DNR/DNI limited as noted on review of records. Related Data Home Medications ?Medication ?Instructions ?Recorded ?Confirmed atorvastatin 40 mg tablet 40 mg PO HS 09/04/23 01/24/25 acetaminophen 500 mg tablet 1,000 mg (2 x 500 mg) PO TID #60 09/06/23 01/24/25 tabs blood sugar diagnostic (FreeStyle #100 ea 09/06/23 01/24/25 Lite Strips) blood-glucose meter (FreeStyle #1 ea 09/06/23 01/24/25 Lite Meter kit) ferrous sulfate 325 mg (65 mg 325 mg PO DAILY #30 tabs 09/06/23 01/24/25 iron) tablet lancets 28 gauge (FreeStyle #100 ea 09/06/23 01/24/25 Lancets) pantoprazole 40 mg tablet,delayed 40 mg PO DAILY@0730 #10 tabs 09/06/23 01/24/25 release levothyroxine 150 mcg tablet 150 mcg PO HS 10/19/23 01/24/25 insulin aspart U-100 100 unit/mL 1 sliding scale dose subcut TID 11/29/23 01/24/25 (3 mL) subcutaneous pen polyethylene glycol 3350 17 17 g PO DAILY 11/29/23 01/24/25 gram/dose oral powder (ClearLax) benzonatate 100 mg capsule 100 mg PO TID 03/01/24 01/24/25 magnesium gluconate 27 mg 27 mg PO TID 03/01/24 01/24/25 magnesium (500 mg) tablet (Mag-G) melatonin 3 mg tablet 3 mg PO HS PRN 03/15/24 01/24/25 secukinumab 300 mg/2 mL 300 mg subcut .q month 03/15/24 01/24/25 subcutaneous pen injector (Cosentyx UnoReady Pen) calcium carbonate (Calcium 500) 1,000 mg PO ONCE PRN 03/16/24 01/24/25 spironolactone 50 mg tablet 50 mg PO DAILY 04/28/24 01/24/25 insulin glargine 100 unit/mL (3 25 unit subcut QAM 05/14/24 01/24/25 mL) subcutaneous pen (Lantus Solostar U-100 Insulin) docusate sodium 100 mg capsule 100 mg PO BID #30 caps 05/16/24 01/24/25 (Colace) guaifenesin 600 mg tablet, 600 mg PO BID #14 tabs 05/16/24 01/24/25 extended release 12 hr (Mucus Relief ER) fluticasone propionate 115 2 puff inhalation BID #12 grams 06/06/24 01/24/25 mcg-salmeterol 21 mcg/actuation HFA inhaler (Advair HFA) albuterol sulfate 90 mcg/actuation 2 puff inhalation 6XD 09/20/24 01/24/25 aerosol inhaler diclofenac sodium 1 % topical gel 4 g topical .Q8 PRN 09/20/24 01/24/25 divalproex 250 mg tablet,delayed 750 mg PO BID 09/20/24 01/24/25 release guaifenesin 100 mg/5 mL oral liquid 200 mg PO Q4H PRN 09/20/24 01/24/25 insulin glargine 100 unit/mL (3 63 unit subcut BID 09/20/24 01/24/25 mL) subcutaneous pen (Lantus Solostar U-100 Insulin) ipratropium 0.5 mg-albuterol 3 mg 3 ml inhalation Q6H PRN 09/20/24 01/24/25 (2.5 mg base)/3 mL nebulization soln montelukast 10 mg tablet 10 mg PO DAILY 09/20/24 01/24/25 ondansetron HCl 4 mg tablet 4 mg PO Q6H PRN 09/20/24 01/24/25 dulaglutide 4.5 mg/0.5 mL 4.5 mg subcut QWEEK 10/15/24 01/24/25 subcutaneous pen injector (Trulicity) empagliflozin 10 mg tablet 10 mg PO DAILY 10/15/24 01/24/25 (Jardiance) furosemide 40 mg tablet 40 mg PO BID 10/15/24 01/24/25 psyllium husk 0.4 gram capsule 0.4 g PO DAILY 10/15/24 01/24/25 (Reguloid (psyllium husk)) budesonide-formoterol HFA 160 2 puff inhalation BID 01/24/25 01/24/25 mcg-4.5 mcg/actuation aerosol inhaler chlorhexidine gluconate 4 % 1 applic topical DAILY 01/24/25 01/24/25 topical liquid (Hibiclens) ferrous gluconate 324 mg (37.5 mg 324 mg PO DAILY 01/24/25 01/24/25 iron) tablet insulin lispro 100 unit/mL 4 unit subcut 01/24/25 subcutaneous pen insulin lispro 100 unit/mL 4 unit subcut TID 01/24/25 01/24/25 subcutaneous pen (Humalog KwikPen (U-100) Insulin) Previous Rx's ?Medication ?Instructions ?Recorded acetaminophen 500 mg tablet 1,000 mg (2 x 500 mg) PO TID #60 09/06/23 tabs blood sugar diagnostic (FreeStyle #100 ea 09/06/23 Lite Strips) blood-glucose meter (FreeStyle #1 ea 09/06/23 Lite Meter kit) ferrous sulfate 325 mg (65 mg 325 mg PO DAILY #30 tabs 09/06/23 iron) tablet lancets 28 gauge (FreeStyle #100 ea 09/06/23 Lancets) pantoprazole 40 mg tablet,delayed 40 mg PO DAILY@0730 #10 tabs 09/06/23 release docusate sodium 100 mg capsule 100 mg PO BID #30 caps 05/16/24 (Colace) guaifenesin 600 mg tablet, 600 mg PO BID #14 tabs 05/16/24 extended release 12 hr (Mucus Relief ER) fluticasone propionate 115 2 puff inhalation BID #12 grams 06/06/24 mcg-salmeterol 21 mcg/actuation HFA inhaler (Advair HFA) Allergies Allergy/AdvReac Type Severity Reaction Status Date / Time No Known Allergies Allergy Verified 01/24/25 00:38 General Stated Complaint: AMS/LOC TRINIDAD: 3 Exam Narrative Exam Narrative: 1.Const: Well-nourished, Well-developed, appearing stated age 2.Eyes: PERRL, no conjunctival injection, and symmetrical lids. 3.ENT: Atraumatic external nose and ears. Notably dry MM. Neck: Symmetric, trachea midline, No thyromegaly. 4.CVS: +S1/S2, Peripheral pulses 2+ and equal in all extremities. Brisk capillary refill in all extremities. 5.RESP: Rhonchorous breath sounds, worse on the right than the left 6.GI: Soft, Nontender/Nondistended, No hepatosplenomegaly. No guarding or rebound. 7.MSK: Normocephalic/Atraumatic, Extremities w/o deformity or ttp No cyanosis or clubbing, Normal movement of all extremities +1- +2 pitting edema 8.Skin: Warm, Dry. No rashes or lesions. 9.Neuro: Generalized movement of all extremities. Sensation grossly intact, no focal neurologic deficits. GCS of 12 10.Psych: (AAO) x0. Appropriate mood and affect Course Vital Signs Vital signs: Vital Signs Temperature 39.4 C H 01/23/25 22:31 Pulse 120 H 01/23/25 22:31 Respiratory Rate 30 H 01/23/25 22:31 Blood Pressure 143/68 H 01/23/25 22:31 Pulse Oximetry 91 L 01/23/25 22:31 Temperature 39.4 C H 01/23/25 22:35 Pulse 120 H 01/23/25 22:35 Respiratory Rate 30 H 01/23/25 22:35 Blood Pressure 143/68 H 01/23/25 22:35 Pulse Oximetry 91 L 01/23/25 22:35 Oxygen Delivery Method Nasal Cannula 01/23/25 22:35 Oxygen Flow Rate 4 01/23/25 22:35 Lab/Test Results Lab/Test Results: 01/23/25 22:35 Blood Blood Culture - Pending 01/23/25 22:35 Blood Blood Culture - Pending Medical Decision Making 74-year-old female with a past medical history of type 2 diabetes, high cholesterol, mild congestive heart failure, hypothyroidism, GERD, chronic cough, who resides at the [facility], who presents today for altered mental status. The [facility] states that at 7 PM the patient was notably altered compared to her baseline, oxygen status was 80% on room air which is not normal for her. She was started on 2 L, EMS was called, and she was transition to the ED. Currently the patient has no complaints secondary to altered mental status. No history from the [place] of recent fall, or vomiting over the patient does have a small amount of dried brown precipitate on the right side of her mouth. EMS states this may have been from chocolate pudding. But it is not totally clear. No other complaints at this time. Patient is a DNR/DNI limited as noted on review of records. Exam demonstrates notable rhonchorous breath sounds, borderline hypoxemia in the high 80s, altered mental status with a GCS of 12. No focal deficits though. She moves all extremities well. Patient is febrile. Differential includes aspiration pneumonia, pneumonia, UTI, bacteremia, and certainly sepsis. Will gently rehydrate with 500 cc bolus as her heart rate is 120. Will give Tylenol for fever, will start broad-spectrum antibiotics of vancomycin, Zosyn and doxycycline will monitor closely and reassess. 2 AM Laboratory workup has notably elevated white count at 23, notable left shift, no bandemia yet though. Lactate is elevated at 2.3, electrolytes normal, creatinine up at 1.3 which is certainly near her baseline. Serial troponins normal, proBNP normal despite her having +2 pitting edema in the lower extremities. Procalcitonin is mildly elevated at 0.26. Thyroid function normal. COVID flu and RSV test normal. X-ray was read as negative, but I clinically disagree. There appears to be infiltrate on the right on my review, it is a poor image, which makes to be challenging. I did put the ultrasound on the patient's chest for further evaluation there does appear to be both B-lines and consolidation in the right mid to upper lobe. Symptoms appear consistent for pneumonia. Patient has not yet urinated. Patient's heart rate has improved from the 120s down to the 90s, her fever is improved as well. Clinically she is actually doing much better. She is now talking and more interactive. Symptoms appear consistent with potentially aspiration pneumonia. Broad-spectrum antibiotics have already been started. Patient has clinical improvement. Discussed case with the hospitalist. Dr. Hammond agrees with the assessment and plan. I have extensively reviewed the treatment plan with the patient. I have addressed all patient concerns at this time. I have also discussed the plan with the admitting physician and they agree with the current assessment and plan and have agreed to assume responsibility for the patient. All parties demonstrate verbal understanding and agreement with our assessment and plan at this time. The documentation in this chart was dictated using [employer] dictation software. Please excuse any dictation errors. FINDINGS: Lungs: The patient is markedly rotated limiting evaluation of the left hemithorax. No pulmonary consolidation where visualized. Pleural spaces: No pleural effusion. No pneumothorax. Heart/Mediastinum: The cardiac silhouette is markedly enlarged. Vasculature: Atheromatous calcifications are present within the visualized thoracic aorta. Bones/joints: Unremarkable. IMPRESSION: 1. Limited study given patient positioning. No pulmonary consolidation where visualized; however repeat study in the AP view would be helpful if further characterization is warranted. 2. Enlarged cardiac silhouette. Differential considerations include cardiomegaly and pericardial effusion. Thank you for allowing us to participate in the care of your patient. Dictated and Authenticated by: Elizabeth Mckeon MD 01/23/2025 11:12 PM Eastern Time ([place] & [place]) Quality:SDOH Health Related Social Needs: Health related social needs details From [facility] Critical Care Time Critical Care Time Critical Care Time: Yes Total Critical Care Time: 60 Attestation: Upon my evaluation, this patient had a high probability of imminent or life-threatening deterioration, which required my direct attention, intervention, and personal management. I have personally provided 60 minutes of critical care time exclusive of time spent on separately billable procedures. Time includes review of laboratory data, radiology results, discussion with consultants, and monitoring for potential decompensation. Interventions were performed as documented. 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 (Acute) Nail dystrophy (Acute) Onychomycosis (Acute) Edema (Acute) Type 2 diabetes mellitus with peripheral neuropathy (Acute) Paresthesias (Acute) Anemia in chronic illness (Acute) Transaminitis (Acute) Obesity (Chronic) Unstageable pressure ulcer of right heel (Acute) Poorly controlled type 2 diabetes mellitus with peripheral neuropathy (Chronic) Low serum iron (Acute) Lumbar back pain with radiculopathy affecting right lower extremity (Acute) Ambulatory dysfunction (Acute) Weakness (Acute) Medical History Follicular disorder, unspecified COVID-19 Vitamin D deficiency, unspecified Unsteadiness on feet Muscle wasting and atrophy, not elsewhere classified, unspecified site Emphysema, unspecified Interstitial pulmonary disease, unspecified Acute pulmonary edema Nausea with vomiting, unspecified Hidradenitis suppurativa Localized edema Tinea unguium Acquired absence of other specified parts of digestive tract Dysphagia, oropharyngeal phase Muscle weakness (generalized) Need for assistance with personal care Primary focal hyperhidrosis, axilla Difficulty in walking, not elsewhere classified Personal history of transient ischemic attack (TIA), and cerebral infarction without residual deficits GERD (gastroesophageal reflux disease) Insomnia Pain HLD (hyperlipidemia) Hemiplegia and hemiparesis following cerebral infarction affecting left non-dominant side Iron deficiency Hemiplegia following cerebrovascular accident (CVA) Pneumonia Constipation Cholecystitis Hypothyroid Gram-negative bacteremia Pleural effusion, left Hyperglycemia due to type 2 diabetes mellitus Urinary tract infection Palliative care patient Physician orders for life-sustaining treatment (POLST) form indicates patient wish for [id number] status ACP (advance care planning) Stroke Diabetes Surgical History S/P cholecystectomy History of ERCP S/P tonsillectomy Family History Mother Cancer Social History Smoking/Tobacco Use Status: Never Smoking risk assessment performed?: Yes Alcohol Intake: never Drug use: Never Substance use type: does not use Housing: assisted living facility What is your relationship status?: Panel score (0-1 are the most socially isolated patients): 0 Do you feel safe at home: Yes Do you feel safe in your relationship?: Yes Additional Social history[facility] Ex[facility] (ED) Limited Thoracic Lung Exam DATE OF EXAM: 01/24/25 TIME OF EXAM: 02:43 PROVIDER THAT PERFORMED THE STUDY: Norberto Grijalva IS THIS A REPEAT EXAM DURING THIS ENCOUNTER: No REASON FOR EXAM: Hypoxia VISUALIZED STRUCTURES: right anterior and left anterior PERTINENT FINDINGS/IMPRESSION: B-lines/right side thoracis location: anterior and Pneumonia Exam complete
[2025-01-23 23:00] LABS: Abs Immature Grans 0.16 10^3/uL (0.0-0.06); BE (Venous) 7 mmol/L (-2-3); HCO3 (Venous) 31 mmol/L (23-28); HCT 38.3 % (36.0-46.0); HGB 12.2 g/dL (11.2-15.7); Immature Grans % 0.7 %; MCH 24.7 pg (27.0-33.0); MCHC 31.9 % (32.0-36.0); MCV 78 fL (80-95); MPV 9.4 fL (8.0-11.0); O2 Sat (Venous) 75 %; Platelet Count 245 10^3/uL (130-400); RBC 4.93 10^6/uL (3.93-5.22); RDW 16.6 % (11.7-14.6); RDW-SD 46.5 fL; TCO2 (Venous) 28 mmol/L (24-29); WBC 23.54 10^3/uL (4.4-10.8); pCO2 (Venous) 43 mmHg (41-51); pO2 (Venous) 39 mmHg
[2025-01-23] MEDS: ACETAMINOPHEN 1,000 MG/100 ML BAG 400 MG IVPB (23:05)
[2025-01-23] MEDS: Normal Saline 500 ML IV (23:05)
[2025-01-23] MEDS: PIPERACILLIN/TAZO 4.5 GM in Normal Saline 100 ML IVPB (23:05)
[2025-01-23] MEDS: DOXYCYCLINE 100 MG in Normal Saline 100 ML IVPB (23:06)
--- NOTE | 2025-01-23 23:13 | DI.VRAD_ITS ---
PROCEDURE INFORMATION: Exam: XR Chest Exam date and time: 01/23/2025 10:47 PM Age: 74 years old Clinical indication: Cough and shortness of breath and other: Hypoxic TECHNIQUE: Imaging protocol: Radiologic exam of the chest. Views: 1 view. COMPARISON: CT CHEST/ABD/PEL W 10/15/2024 12:56 PM FINDINGS: Lungs: The patient is markedly rotated limiting evaluation of the left hemithorax. No pulmonary consolidation where visualized. Pleural spaces: No pleural effusion. No pneumothorax. Heart/Mediastinum: The cardiac silhouette is markedly enlarged. Vasculature: Atheromatous calcifications are present within the visualized thoracic aorta. Bones/joints: Unremarkable. IMPRESSION: 1. Limited study given patient positioning. No pulmonary consolidation where visualized; however repeat study in the AP view would be helpful if further characterization is warranted. 2. Enlarged cardiac silhouette. Differential considerations include cardiomegaly and pericardial effusion. Dictated and Authenticated by: Elizabeth Mckeon MD. Orderin Rudi Thornton MD
[2025-01-23 23:19] LABS: Ammonia 14 umol/L (11-32); RBC Morphology Normal
[2025-01-23 23:20] LABS: INR 1.1 (0.9-1.1); PTT Activated 28.1 sec (20.6-30.2); Prothrombin Time 10.6 sec (9.1-11.1)
[2025-01-23 23:29] LABS: ALT 22 U/L (14-59); AST 14 U/L (15-37); Albumin 3.1 g/dL (3.4-5.0); Alkaline Phosphatase 65 U/L (46-116); Anion Gap 8.0 mmol/L (3-11); BUN 17 mg/dL (7-18); Bilirubin, Total 0.5 mg/dL (0.2-1.0); CO2 32.0 mmol/L (21.0-32.0); Calcium 8.7 mg/dL (8.5-10.1); Chloride 97 mmol/L (98-107); Estimated GFR 42.88 (mL/min/1.73m2); Glucose 173 mg/dL (74-106); NT-proBNP 269 pg/mL (<300); Potassium 3.9 mmol/L (3.5-5.1); Sodium 137 mmol/L (136-145); TSH (W/Ref FT4) 0.63 uIU/mL (0.36-3.74); Total Protein 7.8 g/dL (6.4-8.2); Troponin I 9 ng/L (<or=51)
[2025-01-23 23:30] LABS: Procalcitonin 0.26 ng/mL
[2025-01-23] MEDS: VANCOMYCIN 2,000 MG in Normal Saline 500 ML 333.3333 MG IVPB (23:56)
[2025-01-24] VITALS (57 sets, daily range): BP systolic 98–127; BP diastolic 44–71; PULSE 84–108; RESP 13–35; TEMP 36.2–37.5; O2SAT 85–95
[2025-01-24] MEDS: Miconazole 2% Topical Powder 85 GM BTL (00:52)
[2025-01-24 00:55] LABS: COVID-19 PCR Negative (Negative); RSV PCR Negative (Negative)
--- NOTE | 2025-01-24 01:00 | NUR.NOTE ---
Nursing Note: Daughter Kathy called asking for update. Confirmed that she is on the HIPAA. Updated her regarding the treatment the patient has received.
[2025-01-24 01:48] LABS: Troponin I 9 ng/L (<or=51)
--- NOTE | 2025-01-24 02:11 | HPE_ITS ---
Date of service: 01/24/25 Time of Service: 02:11 Assessment and Plan Assessment and plan (1) Sepsis: Start date: 01/24/25 Status: Acute Assessment and plan: This is a 74-year-old lady lives at the [facility] locally and is very debilitated with multiple medical problems, chronic debilitation usually able to set up and engage at the [facility]. She was found hypoxic with altered mental status and may have been that way for a couple of days with patient not having memory of the last 24 to 48 hours. She is septic with fever and appears somewhat dehydrated with what appears to be aspiration pneumonia and hypoxemia new onset. She is not hypercapnic. She will be admitted to the ICU for close monitoring with her possible aspiration for worsening hypoxemia or hypotension associated with sepsis. It is reassuring that her procalcitonin and BNP is normal. She did have an elevated lactate. Because of her anasarca she will have gentle IV hydration. She is a DNR/DNI. (2) Acute respiratory failure with hypoxia: Start date: 01/24/25 Status: Acute Assessment and plan: Continue O2 supplementation monitoring closely in the ICU. IV antibiotic therapy for her aspiration pneumonia. She also will be treated for possible institution acquired pneumonia [facility]. She does appear to have frequent hospitalizations. Chronically she is not on oxygen supplementation. (3) Aspiration pneumonia: Start date: 01/24/25 Status: Acute Assessment and plan: IV antibiotic therapy and close monitoring of hypoxemia. Follow-up imaging as indicated. (4) CHF (congestive heart failure): Status: Chronic Assessment and plan: Continue outpatient medical therapy and consider IV diuresis if needed. Update echocardiogram. Because of IV access with her anasarca, she will have a midline placed. (5) Poorly controlled type 2 diabetes mellitus with peripheral neuropathy: Status: Chronic Assessment and plan: Hold outpatient medical therapy except for Jardiance with glucometer measurements before meals and at bedtime and moderate sliding scale insulin coverage. Because of unpredictable diet, basal insulin will be held for now. (6) Interstitial pulmonary disease, unspecified: Assessment and plan: Continue outpatient respiratory treatments. She does not have hypercapnia. (7) GERD (gastroesophageal reflux disease): Assessment and plan: Continue PPI. (8) HLD (hyperlipidemia): Assessment and plan: Continue statin. (9) Hypothyroid: Assessment and plan: Continue outpatient supplementation which may be high with TSH slightly suppressed. This can be adjusted as an outpatient once medically stable. History of Present Illness History of Present Illness Chief Complaint: Acute change in mental status at [facility] while eating. Narrative: This is a 74-year-old female patient who resides at the [facility] locally who last remembers Tuesday and possibly Tuesday with the events at the home but has lost the last couple of days prior to admission. She was found to be at the dinner table with hypoxic pulse oximeter measurements in the 80% range and unarousable. She was sitting up. She did have control of chocolate pudding over her right face and in the ED she was thought to have aspirated. Imaging with a chest x-ray was done unremarkable but POCUS performed by the ED provider did show right infiltrate/consolidation consistent with aspiration with increased B-lines on the right compared to left. She remained hypoxic and also had sepsis with markedly elevated WBC, fever, tachycardia and tachypnea with no hypotension. She continued to have altered mental status though slightly improved with IV hydration. She has anasarca with a history of right-sided heart failure which appears to be worsening. Her lactate was elevated but procalcitonin and BNP were normal and she did not have hypercapnia with her respiratory failure with some respiratory alkalosis by VBG. The patient was admitted to the ICU for close monitoring with her hypoxemia and tenuous status with sepsis though she was not hypotensive at this time. She is a DNR/DNI. Review of Systems Narrative: 13 point review of systems otherwise unrevealing with patient being poor historian. 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 (Acute) Nail dystrophy (Acute) Onychomycosis (Acute) Edema (Acute) Type 2 diabetes mellitus with peripheral neuropathy (Acute) Paresthesias (Acute) Anemia in chronic illness (Acute) Transaminitis (Acute) Obesity (Chronic) Unstageable pressure ulcer of right heel (Acute) Poorly controlled type 2 diabetes mellitus with peripheral neuropathy (Chronic) Low serum iron (Acute) Lumbar back pain with radiculopathy affecting right lower extremity (Acute) Ambulatory dysfunction (Acute) Weakness (Acute) Medical History Follicular disorder, unspecified COVID-19 Vitamin D deficiency, unspecified Unsteadiness on feet Muscle wasting and atrophy, not elsewhere classified, unspecified site Emphysema, unspecified Interstitial pulmonary disease, unspecified Acute pulmonary edema Nausea with vomiting, unspecified Hidradenitis suppurativa Localized edema Tinea unguium Acquired absence of other specified parts of digestive tract Dysphagia, oropharyngeal phase Muscle weakness (generalized) Need for assistance with personal care Primary focal hyperhidrosis, axilla Difficulty in walking, not elsewhere classified Personal history of transient ischemic attack (TIA), and cerebral infarction without residual deficits GERD (gastroesophageal reflux disease) Insomnia Pain HLD (hyperlipidemia) Hemiplegia and hemiparesis following cerebral infarction affecting left non- dominant side Iron deficiency Hemiplegia following cerebrovascular accident (CVA) Pneumonia Constipation Cholecystitis Hypothyroid Gram-negative bacteremia Pleural effusion, left Hyperglycemia due to type 2 diabetes mellitus Urinary tract infection Palliative care patient Physician orders for life-sustaining treatment (POLST) form indicates patient wish for [id number] status ACP (advance care planning) Stroke Diabetes Surgical History S/P cholecystectomy History of ERCP S/P tonsillectomy Family History Mother Cancer Social History Smoking/Tobacco Use Status: Never Smoking risk assessment performed?: Yes Alcohol Intake: never Drug use: Never Substance use type: does not use Housing: [facility] What is your relationship status?: Panel score (0-1 are the most socially isolated patients): 0 Do you feel safe at home: Yes Do you feel safe in your relationship?: Yes Additional Social history: PT RESIDES AT THE [facility] Allergies and Home Medications Allergies Allergy/AdvReac Type Severity Reaction Status Date / Time No Known Allergies Allergy Verified 01/24/25 00:38 Home Medications ?Medication ?Instructions ?Recorded ?Confirmed ?Type atorvastatin 40 mg tablet 40 mg PO HS 09/04/23 5 History acetaminophen 500 mg tablet 1,000 mg (2 x 500 mg) PO T ID #60 09/06/23 01/24/25 Rx tabs blood sugar diagnostic (FreeStyle #100 ea 09/06/2301/11 Rx Lite Strips) blood-glucose meter (FreeStyle #1 ea 09/06/23 01/24/25 Rx Lite Meter kit) ferrous sulfate 325 mg (65 mg 325 mg PO DAILY #30 tabs 09/06/23 01/24/25 Rx iron) tablet lancets 28 gauge (FreeStyle #100 ea 09/06/23 01/24/25 Rx Lancets) pantoprazole 40 mg tablet,delayed 40 mg PO DAILY@0730 #10 tabs 09/06/23 01/24/25 Rx release levothyroxine 150 mcg tablet 150 mcg PO HS 10/19/23 History insulin aspart U-100 100 unit/mL 1 sliding scale dose subcut TID 11/29/23 01/24/25 History (3 mL) subcutaneous pen polyethylene glycol 3350 17 17 g PO DAILY 11/29/2301/11 History gram/dose oral powder (ClearLax) benzonatate 100 mg capsule 100 mg PO TID 03/01/2401/11 History magnesium gluconate 27 mg 27 mg PO TID 03/01/24 History magnesium (500 mg) tablet (Mag-G) melatonin 3 mg tablet 3 mg PO HS PRN 03/15/2401/11 History secukinumab 300 mg/2 mL 300 mg subcut .q month 03/1501/24/25 History subcutaneous pen injector (Cosentyx UnoReady Pen) calcium carbonate (Calcium 500) 1,000 mg PO ONCE PRN 0 03/16/24 01/24/25 History spironolactone 50 mg tablet 50 mg PO DAILY 04/28/24 History insulin glargine 100 unit/mL (3 25 unit subcut QAM 01/24/25 History mL) subcutaneous pen (Lantus Solostar U-100 Insulin) docusate sodium 100 mg capsule 100 mg PO BID #30 caps 05/16/24 01/24/25 Rx (Colace) guaifenesin 600 mg tablet, 600 mg PO BID #14 tabs 04/2101/24/25 Rx extended release 12 hr (Mucus Relief ER) fluticasone propionate 115 2 puff inhalation BID #12 g james 06/06/24 01/24/25 Rx mcg-salmeterol 21 mcg/actuation HFA inhaler (Advair HFA) albuterol sulfate 90 mcg/actuation 2 puff inhalation 6 XD 09/20/24 01/24/25 History aerosol inhaler diclofenac sodium 1 % topical gel 4 g topical .Q8 PRN 09/20/24 01/24/25 History divalproex 250 mg tablet,delayed 750 mg PO BID 5 01/24/25 History release guaifenesin 100 mg/5 mL oral liquid 200 mg PO Q4H PRN 09/20/24 01/24/25 History insulin glargine 100 unit/mL (3 63 unit subcut BID 09/1101/24/25 History mL) subcutaneous pen (Lantus Solostar U-100 Insulin) ipratropium 0.5 mg-albuterol 3 mg 3 ml inhalation Q6H PRN 09/20/24 01/24/25 History (2.5 mg base)/3 mL nebulization soln montelukast 10 mg tablet 10 mg PO DAILY 09/20/24 08/01/11 History ondansetron HCl 4 mg tablet 4 mg PO Q6H PRN 09/20/24 0 01/24/25 History dulaglutide 4.5 mg/0.5 mL 4.5 mg subcut QWEEK 10/15/24 01/24/25 History subcutaneous pen injector (Trulicity) empagliflozin 10 mg tablet 10 mg PO DAILY 10/15/2401/11 History (Jardiance) furosemide 40 mg tablet 40 mg PO BID 10/15/24 History psyllium husk 0.4 gram capsule 0.4 g PO DAILY 10/15/24 01/24/25 History (Reguloid (psyllium husk)) budesonide-formoterol HFA 160 2 puff inhalation BID 01/24/25 History mcg-4.5 mcg/actuation aerosol inhaler chlorhexidine gluconate 4 % 1 applic topical DAILY 01/1101/24/25 History topical liquid (Hibiclens) ferrous gluconate 324 mg (37.5 mg 324 mg PO DAILY 01/1101/24/25 History iron) tablet insulin lispro 100 unit/mL 4 unit subcut 01/24/25 His tory subcutaneous pen insulin lispro 100 unit/mL 4 unit subcut TID 01/24/25 01/24/25 History subcutaneous pen (Humalog KwikPen (U-100) Insulin) Exam Narrative Exam Narrative: General: Patient appears chronically ill, morbidly obese and older than stated age, she is easily arousable but only oriented to place and person. She is not oriented to time or purpose. She is in no acute distress being somewhat lethargic. She is febrile and sweaty. HEENT: Normocephalic with coarse and facial features and some puffiness, eyes with pupils equal and reactive to light symmetrically, extraocular movement tact and sclera anicteric. Oropharynx with moist mucosa and poor dentition. Neck: Supple without JVD. Back: Stooped posture without CVA tenderness. Lungs: Bronchovesicular breath sounds diffusely with rhonchi and upper airway noise especially over the right but no focalizing rales. No expiratory wheeze. Patient does have a moist cough. Fair aeration. Breast: Exam deferred. Heart: Regular rate and rhythm with no murmurs or gallops appreciated. Abdomen: Obese contour, soft and nontender to palpation with no palpable hepatosplenomegaly. No guarding or rebound. Bowel sounds positive in all quadrants. Genitalia/rectal: Exam deferred. Skin: Pale, warm and moist with patient slightly diaphoretic. Neuro: Cranial nerves II through XII appear to be grossly intact, no focal motor deficits or tremor. Extremities: 4+ edema which is not pitting but minimally over lower extremities and over hands. Fair cap refill. No cyanosis or clubbing. Psych: Flattened affect with mild delirium with her sepsis and mood uninterpretable. No abnormal thought processes. She is arousable but closes her eyes and sleeps when not stimulated. Remote and recent memory not testable. Results Imaging Imaging Studies: EXAM: XR PORTABLE CHEST AP Date of exam: 01/24/2025 CLINICAL HISTORY: cough, sob, hypoxic TECHNIQUE: 2D digital imaging was performed of the chest. Two images were obtained. AP views were obtained. COMPARISON: CR XR CHEST 2V PA LATERAL from 10/15/2024 FINDINGS: The examination is limited by poor inspiration and patient positioning. MEDIASTINUM: Normal. HEART: Cardiomegaly. PULMONARY VASCULATURE: Normal. LUNGS: There is obscuration of the left hemidiaphragm and an opacity in the left lung base. This areas complicated by the patient positioning. The right lung is clear. PLEURAL SPACE: No pleural effusion or pneumothorax. BONE:Within normal limits for the patient's age. OTHER FINDINGS:Normal. IMPRESSION: 1. Examination limited by patient positioning and low lung volumes. 2. Question of a left basilar infiltrate. 3. Cardiomegaly. 4. The preliminary [facility] report was reviewed. Labs 01/24/25 06:02 01/24/25 06:02 Labs: Laboratory Results - last 24 hr 01/23/25 01/23/25 01/24/25 22:49 23:04 00:10 WBC 23.54 H RBC 4.93 Hgb 12.2 Hct 38.3 MCV 78 L MCH 24.7 L MCHC 31.9 L RDW 16.6 H Plt Count 245 MPV 9.4 Immature Gran % 0.7 Neutrophils % 87.5 Lymphocytes % 2.5 Monocytes % 8.6 Eosinophils % 0.3 Basophils % 0.4 Nucleated RBC % 0.0 Absolute Neutrophils 20.60 H Absolute Lymphocytes 0.59 L Absolute Monocytes 2.02 H Absolute Eosinophils 0.07 Absolute Basophils 0.09 RBC Morphology Normal PT 10.6 INR 1.1 APTT 28.1 VBG pH 7.47 H VBG pCO2 43 VBG pO2 39 VBG HCO3 31 H VBG Total CO2 28 VBG O2 Saturation 75 VBG Base Excess 7 H VBG Lactate 2.3 H* Sodium 137 Potassium 3.9 Chloride 97 L Carbon Dioxide 32.0 Anion Gap 8.0 BUN 17 Creatinine 1.3 H Est GFR (CKD-EPI 2020) 42.88 Glucose 173 H Calcium 8.7 Total Bilirubin 0.5 AST 14 L ALT 22 Alkaline Phosphatase 65 Ammonia 14 Troponin I 9 NT-Pro-B Natriuret Pep 269 Total Protein 7.8 Albumin 3.1 L Procalcitonin 0.26 TSH 0.63 COVID-19 Source Nasopharynx SARS-CoV-2 (PCR) Negative Influenza Type A (PCR) Negative Influenza Type B (PCR) Negative RSV (PCR) Negative 01/24/25 01:20 WBC RBC Hgb Hct MCV MCH MCHC RDW Plt Count MPV Immature Gran % Neutrophils % Lymphocytes % Monocytes % Eosinophils % Basophils % Nucleated RBC % Absolute Neutrophils Absolute Lymphocytes Absolute Monocytes Absolute Eosinophils Absolute Basophils RBC Morphology PT INR APTT VBG pH VBG pCO2 VBG pO2 VBG HCO3 VBG Total CO2 VBG O2 Saturation VBG Base Excess VBG Lactate Sodium Potassium Chloride Carbon Dioxide Anion Gap BUN Creatinine Est GFR (CKD-EPI 2020) Glucose Calcium Total Bilirubin AST ALT Alkaline Phosphatase Ammonia Troponin I 9 NT-Pro-B Natriuret Pep Total Protein Albumin Procalcitonin TSH COVID-19 Source SARS-CoV-2 (PCR) Influenza Type A (PCR) Influenza Type B (PCR) RSV (PCR) Last Vital Signs Temp 39.4 C H 01/23/25 22:35 Pulse 98 H 01/24/25 01:50 Resp 30 H 01/24/25 01:57 BP 106/54 L 01/24/25 01:57 Pulse Ox 89 L 01/24/25 01:57 Time Spent Time spent with Patient: >75 minutes Time was spent: preparing to see the patient(eg.review tests), obtaining and/or reviewing separately otained hiistory, ordering medications,tests, procedures, indepentently interpreting results and care coordination
[2025-01-24 04:36] LABS: Troponin I 10 ng/L (<or=51)
[2025-01-24 04:46] LABS: Magnesium 2.3 mg/dL (1.8-2.4)
[2025-01-24] MEDS: Furosemide 40 MG TAB PO ×2 (06:35→14:10)
[2025-01-24] MEDS: AMPICILLIN/SULBACTAM 3 GM in Normal Saline 100 ML IVPB ×3 (06:43→17:38)
[2025-01-24] MEDS: Normal Saline Flush 10 ML SYR IVP ×4 (06:44→20:20)
[2025-01-24 06:52] LABS: HCT 35.9 % (36.0-46.0); HGB 11.3 g/dL (11.2-15.7); MCH 24.9 pg (27.0-33.0); MCHC 31.5 % (32.0-36.0); MCV 79 fL (80-95); MPV 9.8 fL (8.0-11.0); Platelet Count 236 10^3/uL (130-400); RBC 4.54 10^6/uL (3.93-5.22); RDW 16.6 % (11.7-14.6); RDW-SD 47.8 fL
[2025-01-24 06:59] LABS: WBC 30.11 10^3/uL (4.4-10.8)
[2025-01-24 07:08] LABS: ALT 19 U/L (14-59); AST 16 U/L (15-37); Albumin 2.4 g/dL (3.4-5.0); Alkaline Phosphatase 57 U/L (46-116); Anion Gap 5.8 mmol/L (3-11); BUN 20 mg/dL (7-18); Bilirubin, Total 0.5 mg/dL (0.2-1.0); CO2 30.2 mmol/L (21.0-32.0); Calcium 8.2 mg/dL (8.5-10.1); Chloride 101 mmol/L (98-107); Estimated GFR 42.88 (mL/min/1.73m2); Glucose 154 mg/dL (74-106); Magnesium 2.4 mg/dL (1.8-2.4); Potassium 3.7 mmol/L (3.5-5.1); Sodium 137 mmol/L (136-145); Total Protein 6.8 g/dL (6.4-8.2)
[2025-01-24] MEDS: Budesonide/Formoterol 160/4.5 6 GM 60 PUFF INH IH ×2 (08:03→19:56)
[2025-01-24] MEDS: Pantoprazole 40 MG TABCR PO (08:08)
--- NOTE | 2025-01-24 08:12 | PUCON_ITS ---
General Date Of Service Date of service: 01/24/25 Time of Service: 07:30 Requesting physician: Harvey Pillai Reason for Consult: Pneumonia Recommendations: Assessment: 1. Acute hypoxemic respiratory failure 2. Sepsis - due to pneumonia 3. Aspiration pneumonia 4. Hx Moderate persistent asthma - not in exacerbation Recommendations: - sputum culture - infectious workup to include MRSA swab, strep/legionella urine ag, mycoplasma - continue vancomycin, unasyn and doxycycline for now - titrate oxygen for SpO2 > 90% Discussed with Dr. Pillai Assessment and Plan Assessment and plan (1) Acute respiratory failure with hypoxia: Status: Acute (2) Aspiration pneumonia: Status: Acute (3) Sepsis: Status: Acute (4) Hemiplegia following cerebrovascular accident (CVA): History of Present Illness Narrative: HPI: Patient is a 74 yo with a history of CVA (left hemiparesis), asthma, and HF with preserved EF, who was admitted on 01/23/25 for altered mental status and acute hypoxemic respiratory failure. She reports having intermitted choking episodes for some time. Denies any nausea or emesis. She has a productive cough with thick sputum. CXR on admission showed diffuse opacities and a possible left basilar infiltrate. WBC 23K on admission. Procal 0.26. BNP was 269. COVID-19 and flu testing negative in the ED. She is currently on 4 L O2. Has had a productive cough overnight. Denied chest pain. Has a history of asthma and used advair BID per chart. Patient is unsure if she is using any inhalers. Currently on vancomycin, unazyn, and doxycycline for pneumonia coverage. Smoking history: none Exposure history: none TB exposures: denied ROS: 10 pt ROS negative except as above. 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 (Acute) Nail dystrophy (Acute) Onychomycosis (Acute) Edema (Acute) Type 2 diabetes mellitus with peripheral neuropathy (Acute) Paresthesias (Acute) Anemia in chronic illness (Acute) Transaminitis (Acute) Obesity (Chronic) Unstageable pressure ulcer of right heel (Acute) Poorly controlled type 2 diabetes mellitus with peripheral neuropathy (Chronic) Low serum iron (Acute) Lumbar back pain with radiculopathy affecting right lower extremity (Acute) Ambulatory dysfunction (Acute) Weakness (Acute) Medical History Follicular disorder, unspecified COVID-19 Vitamin D deficiency, unspecified Unsteadiness on feet Muscle wasting and atrophy, not elsewhere classified, unspecified site Emphysema, unspecified Interstitial pulmonary disease, unspecified Acute pulmonary edema Nausea with vomiting, unspecified Hidradenitis suppurativa Localized edema Tinea unguium Acquired absence of other specified parts of digestive tract Dysphagia, oropharyngeal phase Muscle weakness (generalized) Need for assistance with personal care Primary focal hyperhidrosis, axilla Difficulty in walking, not elsewhere classified Personal history of transient ischemic attack (TIA), and cerebral infarction without residual deficits GERD (gastroesophageal reflux disease) Insomnia Pain HLD (hyperlipidemia) Hemiplegia and hemiparesis following cerebral infarction affecting left non- dominant side Iron deficiency Hemiplegia following cerebrovascular accident (CVA) Pneumonia Constipation Cholecystitis Hypothyroid Gram-negative bacteremia Pleural effusion, left Hyperglycemia due to type 2 diabetes mellitus Urinary tract infection Palliative care patient Physician orders for life-sustaining treatment (POLST) form indicates patient wish for [id number] status ACP (advance care planning) Stroke Diabetes Surgical History S/P cholecystectomy History of ERCP S/P tonsillectomy Family History Mother Cancer Social History Smoking/Tobacco Use Status: Never Smoking risk assessment performed?: Yes Alcohol Intake: never Drug use: Never Substance use type: does not use Housing: care home What is your relationship status?: Panel score (0-1 are the most socially isolated patients): 0 Do you feel safe at home: Yes Do you feel safe in your relationship?: Yes Additional Social history: PT RESIDES AT THE [facility] Visit Medication and Allergies Active Medications Generic Name Dose Route Start Last Admin Trade Name Freq PRN Reason Stop Dose Admin Acetaminophen 650 mg 01/24/25 04:30 Acetaminophen 325 Mg Tab PO Q4H PRN PRN Al Hydrox/Mg Hydrox/Simethicone 30 ml 01/24/25 04:30 Mylanta Suspension 30 Ml Cup PO Q2H PRN PRN Albuterol Sulfate 2.5 mg 01/24/25 04:30 Albuterol 2.5 Mg/3 Ml Inh Soln Vial UPD Q2H PRN PRN Albuterol/Ipratropium 3 ml 01/24/25 04:30 Albuterol/Ipratropium 3 Ml Upd Vial IH Q6H PRN Atorvastatin Calcium 40 mg 01/24/25 20:00 Atorvastatin 40 Mg Tab PO HS BRENDA Benzonatate 100 mg 01/24/25 08:30 Benzonatate 100 Mg Cap PO TID BRENDA Budesonide/Formoterol Fumarate 2 puff 01/24/25 08:30 01/24/25 08:03 Budesonide/Formoterol 160/4.5 6 Gm 60 Puff Inh IH 2 puffs BID BRENDA Administration Chlorhexidine Gluconate 15 ml 01/24/25 08:30 Chlorhexidine 4% 15 Ml Pkt TP DAILY BRENDA Dextrose 0 gm 01/24/25 04:30 Glucose Oral Gel 15 Gm/37.5 Gm Tube PO DIRECTED PRN Dextrose/Water 0 gm 01/24/25 04:30 Dextrose 50%-Water 25 Gm/50 Ml Syr IVP DIRECTED PRN Diclofenac Sodium 4 gm 01/24/25 04:42 Diclofenac 1% Gel 100 Gm Tube TP Q8H PRN PRN Divalproex Sodium 750 mg 01/24/25 08:30 Divalproex 250 Mg Tabec PO BID [facility] Docusate Sodium 100 mg 01/24/25 08:30 Docusate Sodium 100 Mg Cap PO BID [facility] Empagliflozin 10 mg 01/24/25 08:30 Empaglifozin 10 Mg Tab PO DAILY [facility] Enoxaparin Sodium 40 mg 01/24/25 08:30 Enoxaparin 40 Mg/0.4 Ml Syr SC DAILY [facility] Ferrous Gluconate 324 mg 01/24/25 08:30 Ferrous Gluconate 324 Mg Tab PO DAILY [facility] Furosemide 40 mg 01/24/25 06:00 01/24/25 06:35 Furosemide 40 Mg Tab PO 40 mg 0600,1400 [facility] Administration Guaifenesin 200 mg 01/24/25 04:30 Guaifenesin 200 Mg/10 Ml Cup PO Q4H PRN Vancomycin HCl 1,500 mg/ 250 mls @ 167 mls/hr 01/24/25 08:30 Sodium Chloride IVPB .PER PROTOCOL [facility] Doxycycline Hyclate 100 mg/ 100 mls @ 100 mls/hr 01/24/25 10:00 Sodium Chloride IVPB Q12H [facility] Ampicillin Sodium/Sulbactam 100 mls @ 200 mls/hr 01/24/25 06:00 01/24/25 06:43 Sodium 3 gm/ Sodium Chloride IVPB 200 mls/hr Q6H [facility] Administration Vancomycin HCl 1,500 mg/ 250 mls @ 166.667 mls/hr 01/25/25 00:00 Sodium Chloride IVPB Q24H [facility] IV Miscellaneous Supplies 1 each 01/23/25 22:45 Iv Access-Emergency Dept IV DIRECTED [facility] Insulin Aspart 0 units 01/24/25 08:00 Insulin Aspart 300 Units/3 Ml Pen SC 0800,1200,1700,2200 [facility] Protocol Levothyroxine Sodium 150 mcg 01/24/25 20:00 Levothyroxine 150 Mcg Tab PO HS [facility] Magnesium Gluconate 500 mg 01/24/25 08:30 Magnesium Gluconate 500 Mg Tab PO TID [facility] Magnesium Hydroxide 30 ml 01/24/25 04:30 Milk Of Magnesia 30 Ml Cup PO DAILY PRN PRN Melatonin 3 mg 01/24/25 04:30 Melatonin 3 Mg Tab PO HS PRN Montelukast Sodium 10 mg 01/24/25 08:30 Montelukast 10 Mg Tab PO DAILY [facility] Ondansetron HCl 4 mg 01/24/25 04:47 Ondansetron O.D.T. 4 Mg Tabef PO Q6H PRN Pantoprazole Sodium 40 mg 01/24/25 07:30 01/24/25 08:08 Pantoprazole 40 Mg Tabcr PO 40 mg DAILY@0730 [facility] Administration Polyethylene Glycol 17 gm 01/24/25 08:30 Polyethylene Glycol 3350 17 Gm Packet PO DAILY BRENDA Psyllium Hydrophilic Mucilloid 1 each 01/24/25 08:30 Psyllium Pkt PO DAILY BRENDA Sodium Chloride 0 ml 01/23/25 22:34 01/24/25 06:44 Normal Saline Flush 10 Ml Syr IVP 40 ml PRN PRN Administration Sodium Chloride 0 ml 01/24/25 08:30 Normal Saline Flush 10 Ml Syr IVP BID BRENDA Sodium Chloride 0 ml 01/23/25 22:34 Normal Saline 10 Ml Vial IJ DIRECTED PRN Spironolactone 50 mg 01/24/25 08:30 Spironolactone 50 Mg Tab PO DAILY BRENDA Allergies No Known Allergies Allergy (Verified 01/24/25 00:38) Exam Narrative Exam Narrative: General: alert, no acute distress Head: normocephalic ENT: no stridor, trachea midline CV: normal rate, regular rhythm Respiratory: no wheezing, no crackles, bilateral rhonchi, no prolonged expiration GI: abd soft, non-tender, non-distended Skin: no rashes Extremities: +1 edema, no digital clubbing Psych: normal affect Results Last Vital Signs Temp 36.2 C L 01/24/25 04:58 Pulse 87 01/24/25 06:00 Resp 26 H 01/24/25 06:00 BP 113/55 L 01/24/25 05:01 Pulse Ox 90 L 01/24/25 06:00 Labs 01/24/25 06:02 01/24/25 06:02 Labs: Laboratory Results - last 24 hr 01/23/25 01/23/25 01/24/25 22:49 23:04 00:10 WBC 23.54 H RBC 4.93 Hgb 12.2 Hct 38.3 MCV 78 L MCH 24.7 L MCHC 31.9 L RDW 16.6 H Plt Count 245 MPV 9.4 Immature Gran % 0.7 Neutrophils % 87.5 Lymphocytes % 2.5 Monocytes % 8.6 Eosinophils % 0.3 Basophils % 0.4 Nucleated RBC % 0.0 Absolute Neutrophils 20.60 H Absolute Lymphocytes 0.59 L Absolute Monocytes 2.02 H Absolute Eosinophils 0.07 Absolute Basophils 0.09 RBC Morphology Normal PT 10.6 INR 1.1 APTT 28.1 VBG pH 7.47 H VBG pCO2 43 VBG pO2 39 VBG HCO3 31 H VBG Total CO2 28 VBG O2 Saturation 75 VBG Base Excess 7 H VBG Lactate 2.3 H* Sodium 137 Potassium 3.9 Chloride 97 L Carbon Dioxide 32.0 Anion Gap 8.0 BUN 17 Creatinine 1.3 H Est GFR (CKD-EPI 2020) 42.88 Glucose 173 H Calcium 8.7 Magnesium Total Bilirubin 0.5 AST 14 L ALT 22 Alkaline Phosphatase 65 Ammonia 14 Troponin I 9 NT-Pro-B Natriuret Pep 269 Total Protein 7.8 Albumin 3.1 L Procalcitonin 0.26 TSH 0.63 COVID-19 Source Nasopharynx SARS-CoV-2 (PCR) Negative Influenza Type A (PCR) Negative Influenza Type B (PCR) Negative RSV (PCR) Negative 01/24/25 01/24/25 01/24/25 01:20 04:12 06:02 WBC 30.11 H* RBC 4.54 Hgb 11.3 Hct 35.9 L MCV 79 L MCH 24.9 L MCHC 31.5 L RDW 16.6 H Plt Count 236 MPV 9.8 Immature Gran % Neutrophils % Lymphocytes % Monocytes % Eosinophils % Basophils % Nucleated RBC % Absolute Neutrophils Absolute Lymphocytes Absolute Monocytes Absolute Eosinophils Absolute Basophils RBC Morphology PT INR APTT VBG pH VBG pCO2 VBG pO2 VBG HCO3 VBG Total CO2 VBG O2 Saturation VBG Base Excess VBG Lactate Sodium 137 Potassium 3.7 Chloride 101 Carbon Dioxide 30.2 Anion Gap 5.8 BUN 20 H Creatinine 1.3 H Est GFR (CKD-EPI 2020) 42.88 Glucose 154 H Calcium 8.2 L Magnesium 2.3 2.4 Total Bilirubin 0.5 AST 16 ALT 19 Alkaline Phosphatase 57 Ammonia Troponin I 9 10 NT-Pro-B Natriuret Pep Total Protein 6.8 Albumin 2.4 L Procalcitonin TSH COVID-19 Source SARS-CoV-2 (PCR) Influenza Type A (PCR) Influenza Type B (PCR) RSV (PCR) Imaging Chest x-ray: report reviewed and image reviewed
[2025-01-24] MEDS: Divalproex 250 MG TABEC 750 MG PO ×2 (08:38→20:18)
[2025-01-24] MEDS: Magnesium Gluconate 500 MG TAB PO ×2 (08:39→20:18)
[2025-01-24] MEDS: Ferrous Gluconate 324 MG TAB PO (08:40)
[2025-01-24] MEDS: Montelukast 10 MG TAB PO (08:40)
[2025-01-24] MEDS: Benzonatate 100 MG CAP PO ×3 (08:41→20:19)
[2025-01-24] MEDS: Spironolactone 50 MG TAB PO (08:41)
[2025-01-24] MEDS: Empaglifozin 10 MG TAB PO (08:41)
[2025-01-24] MEDS: Enoxaparin 40 MG/0.4 ML SYR SC ×2 (08:41→20:19)
[2025-01-24] MEDS: Polyethylene Glycol 3350 17 GM PACKET PO (08:42)
[2025-01-24] MEDS: Insulin Aspart 300 UNITS/3 ML PEN SC ×4 (08:50→22:36)
[2025-01-24] MEDS: DOXYCYCLINE 100 MG in Normal Saline 100 ML IVPB ×2 (09:41→20:17)
--- NOTE | 2025-01-24 10:01 | DI.US_ITS ---
APPROVED REPORT EXAM: Comprehensive 2D, Doppler, and color-flow Echocardiogram Patient Location: In-Patient Room/Bed: [id number] [employer] Operator Helper: Kathryn Mancia RDCS (AE) Indications: Anasarca with diastolic CHF worsening, DM Other Information Study Quality: Fair. Technically limited study due to body habitus, inability to position patient exam done bedside ICU supine. Conclusion Mild concentric left ventricular hypertrophy. Ejection fraction is 50 to 55%. There are no segmental wall motion abnormalities Normal right ventricular size and function Both atria are normal in size There are no structural valvular abnormalities Mild mitral regurgitation. Estimated right ventricular systolic pressure is normal at 22 mmHg Ascending aorta measures 3.91 cm Wall motion Left Ventricle The left ventricle is normal size. Left ventricular systolic function is borderline. Mild concentric left ventricular hypertrophy. No segmental wall motion abnormalities There is no ventricular septal defect visualized. LVEF is 50-55% Right Ventricle The right ventricle is normal size. The right ventricular systolic function is normal. Atria The left atrium size is normal. The right atrium size is normal. The interatrial septum is intact with no evidence for an atrial septal defect. Aortic Valve The aortic valve is normal in structure. Aortic valve is trileaflet. There is no aortic valvular stenosis. No aortic regurgitation is present. Mitral Valve The mitral valve is normal in structure. Mild mitral annular calcification No evidence of mitral valve stenosis. Mild mitral regurgitation. Tricuspid Valve The tricuspid valve is normal in structure. There is no tricuspid valve stenosis. Trace tricuspid regurgitation. The RVSP is 22.5 mmHg. Pulmonic Valve The pulmonary valve is normal in structure. There is no pulmonic valvular stenosis. Trace pulmonic regurgitation. Great Vessels The aortic root is normal in size. The ascending aorta is moderately dilated. Aortic arch is not well visualized. IVC is normal in size and collapses >50% with inspiration. Pericardium There is no pericardial effusion. 2D Dimensions IVSD d PLAX 1.24 cm F: 0.6-1.0 Ao Root d 3.25 cm F: 2.7 - 3.3 LVPW d PLAX 1.20 cm F: 0.6 - 1.0 Ao Asc Diam d 3.91 cm F: 2.3 - 3.1 LVID d PLAX 4.94 cm F: 3.8 - 5.2 LVDs 3.75 cm F: 2.2 - 3.5 LV EF Teichholz 48.0 % FS 24.20 % LV EDV (Teich) 115.1 mL LV ESV (Teich) 59.9 mL M-Mode TAPSE 1.80 cm (M/F) >1.7 Auto EF LV EDV A4C 132.3 mL LV EDV A2C 123.1 mL LV EDV BP 134.4 mL LV ESV A4C 69.2 mL LV ESV A2C 62.2 mL LV ESV BP 67.4 mL LVEF(%) A4C 47.7 % LVEF(%) A2C 49.4 % LVEF(%) BP 49.9 % LV SV A4C 63.1 ml LV SV A2C 60.8 ml LV SV BP 67.0 ml LV CO A4C 5.7 L/min LV CO A2C 5.4 L/min LV CO BP 5.5 L/min HR A4C 89.55 BPM HR A2C 89.33 BPM LV EDV Index (BP) LA Volume LA Length A4C 4.8 cm LA Length A2C 4.8 cm LA Area A4C s 13.98 cm2 LA Area A2C s 18.68 cm2 LA Vol A4C A-L 34.62 mL LA Vol A2C A-L 61.22 mL LA Vol Biplane A-L 46.3 mL LA Vol/BSA A4C A-L LA Vol/BSA A2C A-L LA Vol/BSA BP A-L 20.8 mL/m2 LA Vol A4C MOD 32.3 mL LA Vol A2C MOD 56.9 mL LA Vol BP MOD 42.9 mL RA Volume RA Area A4C 14.6 cm2 RA ESV A4C (A-L) 33.7mL RA Vol/BSA A4C A-L RA Length A4C 5.4 cm RA ESV A4C (MOD) 31.9mL LV Diastology MV E' medial 0.045 (>0.07 m/s) MV E Vmax 1.02 (0.4-1.3 m/s) MV E/E' MED 22.36 (<14) MV A Vmax 1.10 (0.4-1.3 m/s) MV E' lateral 0.071 (>0.1 m/s) E/A Ratio 0.9 MV E/E' LAT 14.25 (<14) MV E' Average 0.058 m/s MV E/E'(average) 17.41 Aortic Valve AoV Vmax 1.62 m/s LVOT Vmax 1.14 m/s AoV Peak Grad 10.5 mmHg LVOT Peak Grad 5.2 mmHg AoV Area (Vmax) 2.47 cm2 LVOT VTI 0.214 m AoV VTI 0.316 m LVOT Mean Grad 3.2 mmHg AoV Mean José Miguel. 1.17 m/s LVOT SV 74.96 mL AoV Mean Grad 6.2 mmHg LVOT Diam s 2.10 cm AoV Area (VTI) 2.37 cm2 AV Regurg Peak Gr. 10.47 mmHg Velocity Ratio 0.70 Mitral Valve MV DT 156 (160-240 msec) MV Vmax TIPS 1.12 m/s MV Mean Grad 2.7 (<2mmHg) MV VTI 0.305 m Pulmonary Valve PV Vmax 1.22 (0.5-1.5 m/s) RVOT Vmax 0.71 m/s PV Peak Grad 5.9 mmHg RVOT Peak Gr. 2.0 mmHg PV Mean José Miguel 0.79 m/s RVOT VTI 0.134 m PV Mean Grad 2.9 mmHg RVOT Mean Gr. 1.2 mmHg Tricuspid Valve RA Pressure 3.00 mmHg TR Vmax 2.21 m/s TV S' 0.14 m/s TR Peak Grad 19.5 mmHg RVSP (TR) 22.5 mmHg
--- NOTE | 2025-01-24 10:28 | PHA.REVIEW2 ---
Pharmacy Admission Review Admission Clinical Review Admission Pharmacy Review: Severe sepsis (Acute) Pneumonia (Acute) Acute respiratory failure with hypoxia (Acute) Sepsis (Acute) Aspiration pneumonia (Acute) No Known Allergies Allergy (Verified 01/24/25 00:38) Resuscitation Status DNR/DNI Height 5 ft 5 in Weight 118.6 kg Pharmacy Admission Review Renal Dosing Renal Dosing: BUN 20 mg/dL (7-18) H 01/24/25 06:02 Creatinine 1.3 mg/dL (0.55-1.02) H 01/24/25 06:02 Medications needing adjustments: Reviewed (CrCl 48.11 mL/min, BUN increased from 17) List of meds needing interventions: Current medications are okay Anticoagulation Anticoagulation: Hgb 11.3 g/dL (11.2-15.7) 01/24/25 06:02 Hct 35.9 % (36.0-46.0) L 01/24/25 06:02 Plt Count 236 10^3/uL (130-400) 01/24/25 06:02 INR 1.1 (0.9-1.1) 01/23/25 23:04 Creatinine 1.3 mg/dL (0.55-1.02) H 01/24/25 06:02 DVT Prophylaxis: Intervened (order changed from DAILY to BID due to BMI > 40 - provider aware) Medications: Enoxaparin (40mg BID) Relevant Labs Relevant Labs: Sodium 137 mmol/L (136-145) 01/24/25 06:02 Potassium 3.7 mmol/L (3.5-5.1) 01/24/25 06:02 Chloride 101 mmol/L (98-107) 01/24/25 06:02 Magnesium 2.4 mg/dL (1.8-2.4) 01/24/25 06:02 Electrolytes, C-Reactive P, ESR: Reviewed DM Control DM Control: Glucose 154 mg/dL (74-106) H 01/24/25 06:02 Finger Stick Blood Glucose 141 0830 Finger Stick Blood Glucose 141 0830 DM Control: Reviewed Insulin Dosing, Diabetic Medication: Has orders for SS insulin and Jardiance 10mg daily Cardiac Review Cardiac Review: Troponin I 10 ng/L (<or=51) 01/24/25 04:12 NT-Pro-B Natriuret Pep 269 pg/mL (<300) 01/23/25 22:49 BP, HR, EF%: Reviewed (BP and HR WNL, RR 31, Ox 91 and oxygen flow rate = 2) List meds needing interventions: Has orders for furosemide 40mg BID and spironolactone 50mg daily QTc Review QTc: Reviewed (486 from 01/23/25) IV to PO Switch IV Medications: Reviewed (Unasyn, doxycycline and vancomycin) Home Meds Home Med List reviewed: Intervened Relevent Home Meds Not ordered & why?: calcium carbonate (PRN), Trulicity (on hold per H+P), glargine (has order for SS insulin) and Cosentyx (monthly injection) Recently filled metformin but not on home med list. Called nurse to check with patient. Waiting to hear back. Current Meds Current Medication Order Review: Intervened Comments: Changed IV ED access order Added 2nd PRN to Duoneb, guaifenesin, melatonin and ondansetron orders per pharmacy protocol Pharmacy Antibiotic Review Relevant Labs: Relevant Labs 01/23/25 22:49 Procalcitonin 0.26 WBC 30.11 10^3/uL (4.4-10.8) H* 01/24/25 06:02 Procalcitonin 0.26 ng/mL 01/23/25 22:49 Temperature 36.4 C Temperature 36.2 C Temperature 39.4 C Pharmacy Antibiotic Activity: C/S review and Reviewed, no change Comments: Patient is on Unasyn, doxycycline and vancomycin, day 1, for sepsis/pneumonia. Vancomycin dose currently 1500mg q24h with predicted AUC of 585. Will order level and adjust as needed based on results. May suggest to provider to order MRSA swab. WBC increased from 23.54 and blood cultures are pending.
--- NOTE | 2025-01-24 10:29 | PDOC.CMIN ---
Date of service: 01/24/25 Time of Service: 10:29 Care Management Initial Assmt Initial Assessment Reason for Hospitalization: respiratory failure Functional Status/Living Situation Patient Presentation: Nilam was lying in bed when CM met with her. She was awake and alert and oriented and engaged well with CM. Amada shared that she has been living at the [facility] for about a year and a half and is not particularly fond of the facility. She stated that she had been in a SNF in [place] for about 6 months and liked it much better. The issue was that her daughter is in [place] and she missed being near family. Nilam has 2 daughters; one is in correction in [place] and the other one lives, Kathy, in [facility]. 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 She e is retired and requires some assistance with ADLs. Nilam was admitted with probable aspiration pneumonia. She is requiring 2-4L/min of nasal oxygen to maintain her O2 saturation above 90%. She requires 2L/min at baseline. She has been hemodynamically stable and is afebrile. Town of Residence: The [facility] in [place] Resides with: Other (SNF) Significant Other/Family: [facility] Employment Status: Retired Instrumental Activities of Daily Living (ADLs): Requires support Medications Medication Management: No Issues/Barriers identified Physical Functioning/Mobility Assistive Device: walker Advance Directives Advance Directives: Do you have an Advance Directive: N 09/04/23, 11:35 AD On File at [facility]: N 09/04/23, 11:35 Date Asked 01/23/25 01/23/25, 22:32 AD Date Reviewed COLST On File at [facility] Yes 11/29/23, 03:38 COLST Date Scanned 09/06/23 11/29/23, 03:38 Code Status Resuscitation Status DNR/DNI Portal Pt does not currently have a portal and education provided: No Portal Education: Other (SNF ) Insurance Coverage/Financial Issues Insurance: Medicare Medicaid Care Team Visit Care Team Role Provider Type Harvey Pillai MD [facility] STAFF PHYSICIAN Nadya Berumen, JAIRO Primary Care Provider NURSE PRACTITIONER Bernadine Hernandez, PATENT COUNSEL Other Providers SPEECH LANGUAGE PATHOLOGIST Erwin Douglas, PATENT COUNSEL Other Providers SPEECH LANGUAGE PATHOLOGIST Yoana Mei Other Providers SPEECH LANGUAGE PATHOLOGIST Marian Bailey, PATENT COUNSEL Other Providers SPEECH LANGUAGE PATHOLOGIST Angelika Gambino, PATENT COUNSEL Other Providers SPEECH LANGUAGE PATHOLOGIST Norberto Grijalva, DO Emergency Provider [facility] STAFF PHYSICIAN Efraín Hammond Admit Provider NON-[facility] STAFF PHYSICIAN Attending Provider Discharge Potential Discharge Needs: PCP F/U Appt Anticipated Barriers to Discharge: None Identified Transportation: RCT Plan: Anticipate Nilam will be discharged back to the [facility] when medically stable. She will follow up with her PCP and plan of care and transport via RCT coordinated by CM. CM will follow and continue to support discharge planning efforts. Social Determinants of Health Screening Social Determinants of health last assessed in clinic: 01/24/25 Will the Patient Participate in the Screening?: Yes Do you worry about having a steady place to live?: no Problems where you live: no known problems In the past 12 months, have you had to go without electric, gas, oil or water in your home?: no 1. Within the past 12 months, we worried whether our food would run out before we got money to buy more.: Never true 2. Within the past 12 months, the food we bought just didn't last and we didn't have money to get more.: Never true Has lack of transportation kept you from medical appointments or from doing things needed for daily living?: no Has anyone in your life made you feel unsafe or unsupported?: no How hard is it for you to pay for the very basics like food, housing, medical care, and heating? Would you say it is:: Not hard at all Do you want help finding or keeping work or a job?: I do not need or want help If for any reason you need help with day-to-day activities such as bathing, preparing meals, shopping, managing finances, etc., do you get the help you need?: I get all the help I need How often do you feel lonely or isolated from those around you?: Rarely Do you speak a language other than Romansh at home?: No Does the patient want assistance with any of the above?: No Comments: pt currently lives at the [facility] Related Social Needs Health related social needs: feeling lonely/isolated (Z60.8) PFSH All Active Problems (Updated 01/24/25 @ 03:35 by JUAN DANIEL OROZCO) Severe sepsis (Acute) Pneumonia (Acute) Acute respiratory failure with hypoxia (Acute) Sepsis (Acute) Aspiration pneumonia (Acute) 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 (Acute) Nail dystrophy (Acute) Onychomycosis (Acute) Edema (Acute) Type 2 diabetes mellitus with peripheral neuropathy (Acute) Paresthesias (Acute) Anemia in chronic illness (Acute) Transaminitis (Acute) Obesity (Chronic) Unstageable pressure ulcer of right heel (Acute) Poorly controlled type 2 diabetes mellitus with peripheral neuropathy (Chronic) Low serum iron (Acute) Lumbar back pain with radiculopathy affecting right lower extremity (Acute) Ambulatory dysfunction (Acute) Weakness (Acute) Medical History Follicular disorder, unspecified COVID-19 Vitamin D deficiency, unspecified Unsteadiness on feet Muscle wasting and atrophy, not elsewhere classified, unspecified site Emphysema, unspecified Interstitial pulmonary disease, unspecified Acute pulmonary edema Nausea with vomiting, unspecified Hidradenitis suppurativa Localized edema Tinea unguium Acquired absence of other specified parts of digestive tract Dysphagia, oropharyngeal phase Muscle weakness (generalized) Need for assistance with personal care Primary focal hyperhidrosis, axilla Difficulty in walking, not elsewhere classified Personal history of transient ischemic attack (TIA), and cerebral infarction without residual deficits GERD (gastroesophageal reflux disease) Insomnia Pain HLD (hyperlipidemia) Hemiplegia and hemiparesis following cerebral infarction affecting left non-dominant side Iron deficiency Hemiplegia following cerebrovascular accident (CVA) Pneumonia Constipation Cholecystitis Hypothyroid Gram-negative bacteremia Pleural effusion, left Hyperglycemia due to type 2 diabetes mellitus Urinary tract infection Palliative care patient Physician orders for life-sustaining treatment (POLST) form indicates patient wish for [id number] status ACP (advance care planning) Stroke Diabetes Surgical History S/P cholecystectomy History of ERCP S/P tonsillectomy Family History Mother Cancer Social History Smoking/Tobacco Use Status: Never Smoking risk assessment performed?: Yes Alcohol Intake: never Drug use: Never Substance use type: does not use Housing: [facility] What is your relationship status?: Panel score (0-1 are the most socially isolated patients): 0 Do you feel safe at home: Yes Do you feel safe in your relationship?: Yes Additional Social history: PT RESIDES AT [facility]
[2025-01-24 12:17] LABS: MRSA PCR Negative (Negative)
--- NOTE | 2025-01-24 13:18 | SPP_ITS ---
Date of service: 01/24/25 Time of Service: 12:00 Subjective Clinical (Bedside) Swallow Evaluation Speech Language Pathology Referred by: [ ] Referral Type: [Clinical Swallow Evaluation] [Cognitive/Communication Evaluation] [Aphasia Evaluation] Reason for Referral/HPI: [ ] KNITTING MACHINE OPERATOR AUTOMATIC IMPRESSIONS & RECOMMENDATIONS: FURTHER KNITTING MACHINE OPERATOR AUTOMATIC SERVICES: No further KNITTING MACHINE OPERATOR AUTOMATIC services indicated Patient to be followed while on unit. Upon Discharge, [outpatient consult requested, recommend KNITTING MACHINE OPERATOR AUTOMATIC services at home health, recommend KNITTING MACHINE OPERATOR AUTOMATIC services at snf] Diet Recommendations: SUBJECTIVE: Patient received [alert/awake, lethargic, confused], agreeable to evaluation Pain Reported? [] Baseline Swallow Function: Patient denies swallowing difficulty prior to admission and eats a regular diet at baseline. Patient reports [ ] PO Trials Assessed: [ ] None. Further swallow assessment not warranted at this time.? [ ] Ice [ ] IDDSI 0 Thin Liquids ?[ ] IDDSI 2 Mildly Thick Liquid [ ] IDDSI 3 Moderately Thick Liquid [ ] IDDSI 4 Puree Solid [ ] IDDSI 5 Minced and Moist Solid [ ] IDDSI 6 Soft & Bite Size Solid [ ] IDDSI 7EC Easy to Chew Solid [ ] IDDSI 7 Regular Solid [ ] Medications administered by RN Oral Mechanism Examination: [ ] Dentition is [ ]. Oral mucosa is [ ]. Cranial Nerve Assessment: CN V ? Trigeminal Facial Sensation WNL Jaw Strength/ROM WNL ?WNL CN VII- Facial WNL labial ROM, strength, coordination. WNL lingual sensation WNL CN IX ? Glossopharyngeal WNL palatal elevation with phonation. No evidence of nasal emissions WNL CN X ? Vagus WNL Vocal quality and volume. Strong/sharp volitional cough WNL CX XII ? Hypoglossal WNL lingual ROM, strength, coordination WNL Oral Phase Findings: [ ] WFL [ ] Anterior leakage from mouth [ ] Difficulty with bolus manipulation [ ] Difficulty with a-p transport [ ] Difficulty chewing [ ] Pocketing [ ] Residue Pharyngeal Phase Findings: [ ] WFL [ ] Delayed swallow initiation [ ] Reduced hyolaryngeal elevation/excursion [ ] Cough after swallow [ ] Voice change after swallow? [ ] Throat clearing? [ ] Endorsed stasis? [place] Swallow Protocol Results: PASS, Complete/uninterrupted without s/sx aspiration ??? ASSESSMENT: Further KNITTING MACHINE OPERATOR AUTOMATIC Services [not indicated/indicated. Patient to be followed while on unit.] Recommendation at Discharge: [KNITTING MACHINE OPERATOR AUTOMATIC Services at [facility], KNITTING MACHINE OPERATOR AUTOMATIC Services via Home Health, KNITTING MACHINE OPERATOR AUTOMATIC Outpatient Services, to be determined] Suggested Referrals: [Gastroenterology, Neurology, Otolaryngology, Dentistry, E M Assembler] Recommended Procedures: [Laryngoscopy, Stroboscopy, MBSS/VFSS, consider EGD, consider barium swallow, consider high resolution esophageal manometry] Recommendations: ? SOLIDS: 7-Regular Solids, 7-Regular/Easy to Chew Solids, 6-Soft & Bite-Sized Solids, 5-Minced & Moist Solids, 4-Pureed Solids, 3-Liquidised Solids, N/A - NPO LIQUIDS: 0-Thin Liquids, 1-Slightly Thick Liquids, 2-Mildly Thick Liquids, 3- Moderately Thick Liquids, 4-Extremely Thick Liquids, N/A - NPO except for PO intake risk management as outlined OTHER: Strict NPO. Short-term enteral feeding route (e.g., NGT) per MD/care team collaboration NPO pending VFSS/MBSS or FEES for objective imaging of oropharyngeal swallowing function NPO pending discussion with patient/POA/family/palliative care Once alert/stable, recommend NPO except ice chip protocol & small sips of water Continue alternative nutrition method with oral pleasure feedings as outlined by KNITTING MACHINE OPERATOR AUTOMATIC and administered via trained caregiver Alternative nutrition method with ice chip protocol as outlined by KNITTING MACHINE OPERATOR AUTOMATIC and administered via trained caregiver MEDICATIONS: Whole with 0-Thin Liquids, 1-Slightly Thick Liquids, 2-Mildly Thick Liquids, 3-Moderately Thick Liquids, 4-Extremely Thick Liquids, N/A - NPO except for PO intake risk management as outlined, Via Tube, Alter medications only as advised by MD or Pharmacist RISK MANAGEMENT: HOB upright as tolerated; upright for all PO intake. Encourage physical mobility as tolerated. Oral hygiene BID/2x per day, q4h/every 4 hours, before/after PO intake using friction with toothbrush on all oral structures as tolerated, suction PRN Level of Assistance/Supervision: Independent, Distant supervision for all PO intake, 1:1 close supervision for all PO intake, 1:1 distant supervision for all PO intake, Assistive feeding only by trained staff/family, Assistive feeding only by KNITTING MACHINE OPERATOR AUTOMATIC at this time PO intake only when awake/alert? Strategies/Adaptations/Assistive Equipment: Reduce auditory and/or visual distractions when eating, Provide verbal and/or visual cues to use recommended strategies, Small sips and bites when eating, Slow rate of intake, Swallow between bites, Avoid straws , Sips by straw only, Multiple swallows, Alternate intake of liquids and solids, Sensory enhancement (flavor, texture, temperature), Small+frequent meals throughout day, Other Posture/Positioning Needs: Maintain upright position at least 30 minutes after meals, Avoid meals/snacks 2- 3 hours prior to reclining/sleeping, Sleep with head of bed elevated to reduce likelihood of nocturnal reflux, Other Education Provided to: [Nursing, Patient, Family, Physician ] Topics Addressed: anatomy/physiology of swallowing mechanism, overt s/sx to monitor for re: potential aspiration of food / liquids, recommendations for improved oral care, Apraxia of Speech Dx PLAN: Frequency: 2-3x/week for 1-2 weeks Goals: Behavioral Geneticist Goals: Patient will remain free from aspiration-related illness, malnutrition, and dehydration. Patient/family will verbalize comprehension of education provided re: dx [ ], strategies to maximize functioning, and role of ST. Short Term Goals: Patient will participate in ongoing diagnostic treatment addressing areas of [ ] Patient will tolerate [ ] Diet and Thin liquids without overt s/s aspiration across 2/2 visits. Patient will tolerate PO trials for consideration of diet upgrade without overt s/s aspiration across 2/2 visits. KNITTING MACHINE OPERATOR AUTOMATIC CPT Code: 57426 Clinical Swallowing [id number]?Evaluation of speech sound production with evaluation of language comprehension and expression TOTAL TIME: [ ] Minutes
--- NOTE | 2025-01-24 13:21 | SP_ITS ---
Date of service: 01/24/25 Time of Service: 12:00 Subjective Clinical (Bedside) Swallow Evaluation Speech Language Pathology Referred by: Efraín Hammond Referral Type: Clinical Swallow Evaluation Reason for Referral/HPI: Nilam Dyer is a 74 yo female presenting to [facility] from the [facility] on 01/24/25 with AMS and hypoxia, found to have sepsis with suspected aspiration pneumonia. Nilam has a PMH significant for CHF, chronic cough, hx dysphagia (at baseline avoids rice/corn, favors soft foods), hx cerebral infarction ~4 years ago with residual L hemiplegia, DM II, obesity, and hx recurrent pneumonia/waxing and waning infiltrates. CXR 01/23 revealed diffuse opacities and possible left basilar infiltrate. Nilam has a prior MBSS from past admission in October 2023, revealing mild- moderate oral phase dysphagia and WFL pharyngeal phase. Aside from transient/flash penetration on initial sip- there is no penetration or aspiration or pharyngeal retention appreciated during the study. Of notice, patient did generate the wet cough intermittently throughout the study though did not appear correlated to PO. See full report for further details. BARREL CUTTER IMPRESSIONS & RECOMMENDATIONS: Nilam was alert and oriented x4 at time of evaluation, weaned to 2LPM nasal cannula. SPO2 remained above 91%, though she did demonstrate increased work of breath with PO despite 1:1 feed assist. She reports coughing on scrambled eggs and fruit this morning, however this was eaten without her dentures which were left at nursing facility. At time of BARREL CUTTER evaluation, her family was able to bring in her dentures and she tolerated PO much better. She demonstrates a notably wet cough at baseline, which is difficult to differentiate if exacerbated with PO. She was able to follow pr ompts to reduce sip and bite size to support better coordination with respiration and deglutition. Overall she is at heightened risk for aspiration, specifically in light of SOB, however anticipate risks can be mitigated with diet modifications and precautions outlined below. Will continue to monitor need for repeat MBSS once returned to baseline, however where patient presented with similar wet cough at that time and WFL pharyngeal swallow function was identified, there is not strong indication to repeat at this time. FURTHER BARREL CUTTER SERVICES: Patient to be followed while on unit. Upon Discharge, to be determined, unsure if BARREL CUTTER needs will be indicated. Diet Recommendations: SOLIDS L6 Soft & Bite Sized LIQUIDS L0 Thin Liquids MEDICATIONS As tolerated, cut or crushed in applesauce or pudding is preferred. OK whole if small. 1:1 supervision and assist for all PO intake; assistance by staff or family RISK MANAGEMENT: HOB upright as tolerated; upright for all PO intake. Maintain upright position at least 30 minutes after meals Oral hygiene BID/2-3x per day Provide verbal and/or visual cues to use recommended strategies Small sips and bites when eating Slow rate of intake Swallow between bites SUBJECTIVE: Patient received alert/awake/oriented x4 & agreeable to evaluation Pain Reported? None reported Baseline Swallow Function: Patient reports favoring soft foods, avoiding sticky or hard substances like corn or rice. Denies issues with liquids at baseline. PO Trials Assessed: IDDSI 0 Thin Liquids (6 oz water via straw) IDDSI 4 Puree Solid (3 oz applesauce) IDDSI 6 Soft & Bite Size Solid (2 oz diced peaches) Oral Mechanism Examination: Patient is edentulous, with well-fitting dentures in place. Cranial Nerve Assessment: CN V ? Trigeminal Facial Sensation WNL Jaw Strength/ROM WNL ?WNL CN VII- Facial WNL labial ROM, strength, coordination. WNL lingual sensation WNL CN IX ? Glossopharyngeal WNL palatal elevation with phonation. No evidence of nasal emissions WNL CN X ? Vagus WNL Vocal quality and volume. Strong/sharp volitional cough WNL CX XII ? Hypoglossal WNL lingual ROM, strength, coordination WNL Oral Phase Findings: WFL Pharyngeal Phase Findings: Delayed swallow initiation Reduced hyolaryngeal elevation/excursion Wet cough at baseline and x1 immediately after large sip thin via straw. Not appreciated with smaller sips ASSESSMENT: Further BARREL CUTTER Services indicated. Patient to be followed while on unit. Recommendation at Discharge: To be determined Suggested Referrals: N/A Recommended Procedures: Consider MBSS once returned to baseline in the setting of repeat hospitalizations and pneumonia Education Provided to: Nursing, Patient, Family Topics Addressed:BARREL CUTTER findings, aspiration precautions PLAN: Frequency: 2-3x/week for 1-2 weeks Goals: Time Study Clerk Goals: Patient will remain free from aspiration-related illness, malnutrition, and dehydration. Short Term Goals: Patient will tolerate soft and bite sized Diet and Thin liquids without overt s/s aspiration across 2/2 visits. BARREL CUTTER CPT Code: 23402 Clinical Swallowing Evaluation TOTAL TIME: 25 Minutes [id number]
[2025-01-24 14:33] LABS: Vancomycin, Random 11.6 ug/mL
[2025-01-24 16:16] LABS: Glucose >=1000 mg/dL (Negative)
[2025-01-24 16:24] LABS: RBC 0-2 HPF (0-2); WBC 0-2 HPF (0-5)
--- NOTE | 2025-01-24 16:38 | CHAPLAIN ---
Nilam and I remembered each other from a previous admission. She was lives at the [facility] as was admitted through the ED last night. Nilam said she doesn't remember leaving the [facility], and then woke up at [facility]. Her daughter was able to go to the [facility] to her her teeth and pocketbook that were not transported with her. Nilam has a bad cough and said that has been keeping her up. I will continue to visit.
[2025-01-24] MEDS: Atorvastatin 40 MG TAB PO (20:19)
[2025-01-24] MEDS: Docusate Sodium 100 MG CAP PO (20:19)
[2025-01-24] MEDS: Levothyroxine 150 MCG TAB PO (20:19)
[2025-01-25] VITALS (27 sets, daily range): BP systolic 90–125; BP diastolic 47–74; PULSE 79–96; RESP 16–34; TEMP 36.5–36.8; O2SAT 84–97
[2025-01-25] MEDS: VANCOMYCIN/WATER (PEG) 1.5 GM/300 ML BAG IVPB (00:20)
[2025-01-25] MEDS: AMPICILLIN/SULBACTAM 3 GM in Normal Saline 100 ML IVPB ×5 (00:21→23:51)
[2025-01-25] MEDS: Furosemide 40 MG TAB PO ×2 (06:20→14:12)
[2025-01-25 06:34] LABS: HCT 32.8 % (36.0-46.0); HGB 10.3 g/dL (11.2-15.7); MCH 24.7 pg (27.0-33.0); MCHC 31.4 % (32.0-36.0); MCV 79 fL (80-95); MPV 9.9 fL (8.0-11.0); Platelet Count 199 10^3/uL (130-400); RBC 4.17 10^6/uL (3.93-5.22); RDW 16.5 % (11.7-14.6); RDW-SD 47.1 fL; WBC 23.05 10^3/uL (4.4-10.8)
[2025-01-25 06:55] LABS: ALT 15 U/L (14-59); AST 13 U/L (15-37); Albumin 2.3 g/dL (3.4-5.0); Alkaline Phosphatase 69 U/L (46-116); Anion Gap 8.8 mmol/L (3-11); BUN 18 mg/dL (7-18); Bilirubin, Total 0.6 mg/dL (0.2-1.0); CO2 29.2 mmol/L (21.0-32.0); Calcium 8.4 mg/dL (8.5-10.1); Chloride 99 mmol/L (98-107); Estimated GFR 52.40 (mL/min/1.73m2); Glucose 156 mg/dL (74-106); Magnesium 1.9 mg/dL (1.8-2.4); Potassium 3.4 mmol/L (3.5-5.1); Sodium 137 mmol/L (136-145); Total Protein 6.8 g/dL (6.4-8.2)
[2025-01-25] MEDS: Budesonide/Formoterol 160/4.5 6 GM 60 PUFF INH IH ×2 (07:20→21:11)
[2025-01-25] MEDS: Pantoprazole 40 MG TABCR PO (08:11)
[2025-01-25] MEDS: Magnesium Gluconate 500 MG TAB PO ×3 (08:11→21:12)
[2025-01-25] MEDS: Divalproex 250 MG TABEC 750 MG PO ×2 (08:11→21:11)
[2025-01-25] MEDS: Benzonatate 100 MG CAP PO ×3 (08:11→21:13)
[2025-01-25] MEDS: Enoxaparin 40 MG/0.4 ML SYR SC ×2 (08:11→21:13)
[2025-01-25] MEDS: Ferrous Gluconate 324 MG TAB PO (08:12)
[2025-01-25] MEDS: Empaglifozin 10 MG TAB PO (08:12)
[2025-01-25] MEDS: Spironolactone 50 MG TAB PO (08:12)
[2025-01-25] MEDS: Montelukast 10 MG TAB PO (08:12)
[2025-01-25] MEDS: Docusate Sodium 100 MG CAP PO (08:12)
[2025-01-25] MEDS: Normal Saline Flush 10 ML SYR IVP ×2 (08:13→21:18)
[2025-01-25] MEDS: Psyllium PKT 1 EACH PO (08:14)
[2025-01-25] MEDS: Insulin Aspart 300 UNITS/3 ML PEN SC ×4 (08:16→21:15)
--- NOTE | 2025-01-25 08:40 | PT.INIE ---
PT Notes Visit Reasons: Sepsis, Acute hypoxic respiratory failure, Right p
[2025-01-25] MEDS: DOXYCYCLINE 100 MG in Normal Saline 100 ML IVPB ×2 (09:46→21:16)
[2025-01-25] MEDS: guaiFENesin 600 MG TABCR PO ×2 (09:47→21:13)
[2025-01-25] MEDS: Acetaminophen 325 MG TAB 650 MG PO (10:01)
--- NOTE | 2025-01-25 12:26 | W.UROLOGYCON ---
Date of service: 01/25/25 Time of Service: 12:31 Assessment and Plan Assessment and plan (1) Difficult Love catheter placement: Status: Acute Assessment and plan: There was no issue with placing the catheter. It can be removed whenever it is no longer needed for I/O History of Present Illness History of Present Illness Chief Complaint: Congestive heart failure Narrative: This is a 74-year-old woman who is currently hospitalized for multiple medical issues including congestive heart failure. A Love catheter was requested for accurate output monitoring. The staff was unable to place a catheter. 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 (Acute) Nail dystrophy (Acute) Onychomycosis (Acute) Edema (Acute) Type 2 diabetes mellitus with peripheral neuropathy (Acute) Paresthesias (Acute) Anemia in chronic illness (Acute) Transaminitis (Acute) Obesity (Chronic) Unstageable pressure ulcer of right heel (Acute) Poorly controlled type 2 diabetes mellitus with peripheral neuropathy (Chronic) Low serum iron (Acute) Lumbar back pain with radiculopathy affecting right lower extremity (Acute) Ambulatory dysfunction (Acute) Weakness (Acute) Medical History Follicular disorder, unspecified COVID-19 Vitamin D deficiency, unspecified Unsteadiness on feet Muscle wasting and atrophy, not elsewhere classified, unspecified site Emphysema, unspecified Interstitial pulmonary disease, unspecified Acute pulmonary edema Nausea with vomiting, unspecified Hidradenitis suppurativa Localized edema Tinea unguium Acquired absence of other specified parts of digestive tract Dysphagia, oropharyngeal phase Muscle weakness (generalized) Need for assistance with personal care Primary focal hyperhidrosis, axilla Difficulty in walking, not elsewhere classified Personal history of transient ischemic attack (TIA), and cerebral infarction without residual deficits GERD (gastroesophageal reflux disease) Insomnia Pain HLD (hyperlipidemia) Hemiplegia and hemiparesis following cerebral infarction affecting left non-dominant side Iron deficiency Hemiplegia following cerebrovascular accident (CVA) Pneumonia Constipation Cholecystitis Hypothyroid Gram-negative bacteremia Pleural effusion, left Hyperglycemia due to type 2 diabetes mellitus Urinary tract infection Palliative care patient Physician orders for life-sustaining treatment (POLST) form indicates patient wish for el-bqj-kdiqmexlwnq status ACP (advance care planning) Stroke Diabetes Surgical History S/P cholecystectomy History of ERCP S/P tonsillectomy Family History Mother Cancer Social History Smoking/Tobacco Use Status: Never Smoking risk assessment performed?: Yes Alcohol Intake: never Drug use: Never Substance use type: does not use Housing: halfway What is your relationship status?: Panel score (0-1 are the most socially isolated patients): 0 Do you feel safe at home: Yes Do you feel safe in your relationship?: Yes Additional Social history: PT [facility]IDES AT [facility] Exam Narrative Exam Narrative: She does not appear septic or toxic She is awake and alert Results Last Vital Signs Temp 36.8 C 01/25/25 04:36 Pulse 94 H 01/25/25 10:01 Resp 27 H 01/25/25 10:01 BP 111/58 L 01/25/25 10:01 Pulse Ox 94 01/25/25 10:01 Labs 01/25/25 05:20 01/25/25 05:20 Labs: Laboratory Results - last 24 hr 01/24/25 01/24/25 01/25/25 14:00 15:50 05:20 WBC 23.05 H RBC 4.17 Hgb 10.3 L Hct 32.8 L MCV 79 L MCH 24.7 L MCHC 31.4 L RDW 16.5 H Plt Count 199 MPV 9.9 Sodium 137 Potassium 3.4 L Chloride 99 Carbon Dioxide 29.2 Anion Gap 8.8 BUN 18 Creatinine 1.1 H Est GFR (CKD-EPI 2020) 52.40 Glucose 156 H Calcium 8.4 L Magnesium 1.9 Total Bilirubin 0.6 AST 13 L ALT 15 Alkaline Phosphatase 69 Total Protein 6.8 Albumin 2.3 L Urine Color Yellow Urine Clarity Clear Urine pH 6.0 Ur Specific [place] 1.010 Urine Protein Negative Urine Ketones Trace H Urine Blood Negative Urine Nitrite Negative Urine Bilirubin Negative Urine Urobilinogen 0.2 Ur Leukocyte Esterase Negative Urine RBC 0-2 Urine WBC 0-2 Ur Epithelial Cells Few Urine Crystals Negative Urine Bacteria Negative Urine Casts Negative Urine Mucus Negative Ur Culture Indicated? C&S Done As Ordered Urine Glucose >=1000 H Random Vancomycin 11.6 Insert Bladder Catheter Text: She was seen at the bedside in the intensive care unit. She was placed in the frog-leg position. Her genitalia was visualized and the urethral meatus was identified. I utilized 2% Xylocaine jelly to instill into the urethra to act as a local anesthetic. A 16 Telugu catheter was then passed through the urethra into the bladder with no difficulty. The catheter balloon was inflated with 10 cc of sterile water. Clear urine was obtained. The patient tolerated this procedure well with no complications.
[2025-01-25] MEDS: Miconazole 2% Topical Powder 85 GM BTL (12:41)
--- NOTE | 2025-01-25 14:20 | W.PM.PROGNOT ---
Date of Service Date of service: 01/25/25 Time of Service: 14:20 Assessment and Plan Assessment and plan (1) Sepsis: Start date: 01/24/25 Status: Acute Assessment and plan: Met sepsi criteria on admission with apparent source the lungs. Started on amp/sulbactam to cover aspiration, vancomycin, and doxycycline. H/o MRSA, but nasal swab negative so stopping vancomycin WBC is decreasing. (2) Aspiration pneumonia: Start date: 01/24/25 Status: Acute Assessment and plan: IV antibiotic therapy as above. Diagnostic evaluation pending per pulmonology Seen by FILM PROJECTOR OPERATOR. She also seems to have a lot of nasal symptoms. Flu/covid/rsv negative on admission, but may have viral component. Can try saline/nasal steroid (3) Acute respiratory failure with hypoxia: Start date: 01/24/25 Status: Acute Assessment and plan: Treating aspiration pneumonia as above, also baseline interstitial disease. Chronically she is not on oxygen supplementation, still on 3 liters. Can make MS status (4) CHF (congestive heart failure): Status: Chronic Assessment and plan: Preserved LVEF and collapsing IVC on echocardiogram, will stop IV diuresis. Edema seems peripheral. I think hypoxia primarily from aspiration. she is on emplagliflozin (5) Poorly controlled type 2 diabetes mellitus with peripheral neuropathy: Status: Chronic Assessment and plan: Resume basal/bolus insulin and sliding scale. (6) Hypothyroid: Assessment and plan: Continue outpatient supplementation which may be high with TSH slightly suppressed for age. This can be adjusted as an outpatient once medically stable. (7) DVT prophylaxis: Status: Acute Assessment and plan: enoxaparin Subjective Subjective Patient reports: tolerating a regular diet; denies diarrhea, nausea or vomiting Interval history since last seen: Events: Echocardiogram done Urology consulted for difficult crump placement. chronic incontinence Increased oxygen need up to 8L high flow at night, down to 4L this morning, better with mask She feels okay, but still feels sick. Lots of nasal congestion. She hasn't had more fevers. Exam Narrative Exam Narrative: General: alert, no acute distress ENT: no stridor, trachea midline CV: normal rate, regular rhythm Respiratory: no wheezing, no crackles, bilateral rhonchi more in bases. GI: abd soft, non-tender, non-distended Extremities: +1 edema om LE bilaterally, no digital clubbing, warm Objective Last Vital Signs Temp 36.5 C 01/25/25 08:35 Pulse 91 H 01/25/25 12:15 Resp 20 01/25/25 12:15 BP 90/60 L 01/25/25 12:15 Pulse Ox 95 01/25/25 12:15 Laboratory Results - last 24 hr 01/24/25 01/24/25 01/25/25 14:00 15:50 05:20 WBC 23.05 H RBC 4.17 Hgb 10.3 L Hct 32.8 L MCV 79 L MCH 24.7 L MCHC 31.4 L RDW 16.5 H Plt Count 199 MPV 9.9 Sodium 137 Potassium 3.4 L Chloride 99 Carbon Dioxide 29.2 Anion Gap 8.8 BUN 18 Creatinine 1.1 H Est GFR (CKD-EPI 2020) 52.40 Glucose 156 H Calcium 8.4 L Magnesium 1.9 Total Bilirubin 0.6 AST 13 L ALT 15 Alkaline Phosphatase 69 Total Protein 6.8 Albumin 2.3 L Urine Color Yellow Urine Clarity Clear Urine pH 6.0 Ur Specific [place] 1.010 Urine Protein Negative Urine Ketones Trace H Urine Blood Negative Urine Nitrite Negative Urine Bilirubin Negative Urine Urobilinogen 0.2 Ur Leukocyte Esterase Negative Urine RBC 0-2 Urine WBC 0-2 Ur Epithelial Cells Few Urine Crystals Negative Urine Bacteria Negative Urine Casts Negative Urine Mucus Negative Ur Culture Indicated? C&S Done As Ordered Urine Glucose >=1000 H Random Vancomycin 11.6 Time Spent with Patient Time Spent with Patient: >50 minutes Time was spent: preparing to see the patient(eg.review tests), obtaining and/or reviewing separately otained hiistory, ordering medications,tests, procedures, referring, communicating with other health medicare compliance auditor, indepentently interpreting results, counseling the patient and care coordination
[2025-01-25] MEDS: Potassium Chloride 20 MEQ TABCR 40 MEQ PO (14:40)
[2025-01-25] MEDS: Acetaminophen 500 MG TAB 1000 MG PO ×2 (14:40→21:11)
--- NOTE | 2025-01-25 15:45 | SPP_ITS ---
Date of service: 01/25/25 Time of Service: 12:20 Subjective Nilam was seen in ICU at bedside this date with lunch meal. Awake, alert, joking, pleasant and cooperative throughout. Reports poor appetite. Per nursing, she has increased oxygen needs this date over previous, currently on high flow oxygen. Objective/Assessment/Plan Objective Treatment Techniques & Outcomes: Respiration: 5L HFO2 via NC, tolerating well throughout PO trials stable at 98% per telemetry PO Trials Assessed: IDDSI 0 Thin Liquids (6 oz water via straw) IDDSI 4 Puree Solid (6-7 bites mashed potato ) IDDSI 7 Regular solid (3-4 bites tough chicken, brocolli, cut into bite sizes by clinician) Oral Phase Findings: Open mouth posture while chewing/tongue thrusting (consistent with baseline) Pharyngeal Phase Findings: Wet cough at baseline Initial wet cough with first trial (small sip thin liquid - consistent with baseline cough, disproportionate cough/wetness to sip size, not replicated on further trials) Goals: Phys Asst Goals: Patient will remain free from aspiration-related illness, malnutrition, and dehydration. Short Term Goals: Patient will tolerate soft and bite sized Diet and Thin liquids without overt s/s aspiration across 2/2 visits. DECORATING CONSULTANT CPT Code: 78756 Clinical Swallowing Evaluation Patient/Caregiver/Staff Education: RN updated on status and recommendations as below. Assessment Nilam presents with overall stable swallow function, though given that she is on a higher flow with increased oxygen needs, may be at slightly elevated aspiration risk over baseline. Patient demonstrated 1x significant wet cough with her first sip of thin liquids this date, though wetness of cough was very disproportionate to amount of thin liquid consumed, and per nursing, she demonstrates very wet cough throughout the day as well. In the past, she has presented, even under fluoroscopy, with a very wet cough which did not correlate to any deep penetration or aspiration events. With all subsequent sips of liquid and solid bolus during meal (though limited in quantity due to poor appetite), there was no wet voice, coughing, or change in respiratory status on telemetry or by observation. She presents with consistent oral dysphagia with impaired mastication and lingual thrusting behaviors which appear to this clinician to be stable since last evaluation in October 2023. Suspect if significant aspiration is suspected this may be due to secretion aspiration more than prandial. Recommend continued aspiration precautions in any case, given risk factors and history, to reduce risk of further pulmonary complication, as follows: Diet Recommendations: SOLIDS L6 Soft & Bite Sized LIQUIDS L0 Thin Liquids MEDICATIONS As tolerated, cut or crushed in applesauce or pudding is preferred. OK whole if small. 1:1 supervision and assist for all PO intake; assistance by staff or family RISK MANAGEMENT: HOB upright for all PO intake. HOB slightly elevated overnight as tolerated to reduce secretion aspiration. Maintain upright position at least 30 minutes after meals Oral hygiene BID/2-3x per day Provide verbal and/or visual cues to use recommended strategies Small sips and bites when eating Slow rate of intake Swallow between bites Plan Plan: FURTHER DECORATING CONSULTANT SERVICES: Patient to be followed while on unit. Upon Discharge, likely safe to return to baseline recommendations for aspiration. Recommendations Total Time Spent: 20 min
--- NOTE | 2025-01-25 15:53 | PDOC.CMPRO ---
Date of service: 01/25/25 Time of Service: 15:53 Care Management Progress Note Progress Note Text Progress Note Text: Nilam was sitting up in bed when CM met with her. She was smiling and informed CM that she is feeling better today. She stated that her breathing is still not back to normal but there is definite improvement. Earlier in the day she was requiring 4-6 L/min of nasal oxygen but this afternoon she is satuarating at 95% on 3L/min. She remains afebrile and her vital signs are stable. Discharge Potential Discharge Needs: Other (return to SNF) Anticipated Barriers to Discharge: None Identified Patient/Family Education Needs: Review discharge instructions, discuss Ask Me Three Transportation: RCT Plan: Anticipate Nilam will be discharged back to the [facility] when medically stable. She will follow up with her PCP and plan of care and transport via RCT coordinated by CM. CM will follow and continue to support discharge planning efforts. Social Determinants of Health Screening Social Determinants of health last assessed in clinic: 01/25/25 Will the Patient Participate in the Screening?: Yes Do you worry about having a steady place to live?: no Problems where you live: no known problems In the past 12 months, have you had to go without electric, gas, oil or water in your home?: no 1. Within the past 12 months, we worried whether our food would run out before we got money to buy more.: Never true 2. Within the past 12 months, the food we bought just didn't last and we didn't have money to get more.: Never true Has lack of transportation kept you from medical appointments or from doing things needed for daily living?: no Has anyone in your life made you feel unsafe or unsupported?: no How hard is it for you to pay for the very basics like food, housing, medical care, and heating? Would you say it is:: Not hard at all Do you want help finding or keeping work or a job?: I do not need or want help If for any reason you need help with day-to-day activities such as bathing, preparing meals, shopping, managing finances, etc., do you get the help you need?: I get all the help I need How often do you feel lonely or isolated from those around you?: Rarely Do you speak a language other than Sami at home?: No Does the patient want assistance with any of the above?: No Comments: pt currently lives at the [facility] Health Related Social Needs Health related social needs: feeling lonely/isolated (Z60.8)
[2025-01-25 19:29] LABS: Legionella Ag Detection Urine Negative (Negative)
[2025-01-25] MEDS: Atorvastatin 40 MG TAB PO (21:13)
[2025-01-25] MEDS: Levothyroxine 150 MCG TAB PO (21:13)
[2025-01-25] MEDS: Insulin Glargine 300 UNITS/3 ML PEN 40 UNITS SC (21:14)
[2025-01-26] VITALS (12 sets, daily range): BP systolic 114–142; BP diastolic 55–89; PULSE 71–84; RESP 18–34; TEMP 36.3–36.6; O2SAT 93–97
[2025-01-26] MEDS: Normal Saline Flush 10 ML SYR IVP ×3 (05:15→19:56)
[2025-01-26] MEDS: AMPICILLIN/SULBACTAM 3 GM in Normal Saline 100 ML IVPB ×3 (06:03→17:29)
[2025-01-26 07:09] LABS: HCT 32.3 % (36.0-46.0); HGB 10.3 g/dL (11.2-15.7); MCH 25.1 pg (27.0-33.0); MCHC 31.9 % (32.0-36.0); MCV 79 fL (80-95); MPV 9.8 fL (8.0-11.0); Platelet Count 211 10^3/uL (130-400); RBC 4.11 10^6/uL (3.93-5.22); RDW 16.1 % (11.7-14.6); RDW-SD 46.6 fL; WBC 13.72 10^3/uL (4.4-10.8)
[2025-01-26 07:21] LABS: Anion Gap 6.0 mmol/L (3-11); BUN 22 mg/dL (7-18); CO2 32.0 mmol/L (21.0-32.0); Calcium 8.9 mg/dL (8.5-10.1); Chloride 100 mmol/L (98-107); Estimated GFR 58.75 (mL/min/1.73m2); Glucose 167 mg/dL (74-106); Potassium 3.6 mmol/L (3.5-5.1); Sodium 138 mmol/L (136-145)
[2025-01-26 07:23] LABS: Magnesium 2.1 mg/dL (1.8-2.4)
[2025-01-26] MEDS: Enoxaparin 40 MG/0.4 ML SYR SC ×2 (07:49→19:54)
[2025-01-26] MEDS: Acetaminophen 500 MG TAB 1000 MG PO ×3 (07:49→19:54)
[2025-01-26] MEDS: Magnesium Gluconate 500 MG TAB PO ×3 (07:51→19:55)
[2025-01-26] MEDS: Pantoprazole 40 MG TABCR PO (07:51)
[2025-01-26] MEDS: Divalproex 250 MG TABEC 750 MG PO ×2 (07:51→20:37)
[2025-01-26] MEDS: Benzonatate 100 MG CAP PO ×3 (07:52→19:55)
[2025-01-26] MEDS: Spironolactone 50 MG TAB PO (07:52)
[2025-01-26] MEDS: Ferrous Gluconate 324 MG TAB PO (07:52)
[2025-01-26] MEDS: Montelukast 10 MG TAB PO (07:52)
[2025-01-26] MEDS: guaiFENesin 600 MG TABCR PO ×2 (07:52→19:55)
[2025-01-26] MEDS: Empaglifozin 10 MG TAB PO (07:52)
[2025-01-26] MEDS: Insulin Aspart 300 UNITS/3 ML PEN SC ×5 (08:18→22:31)
[2025-01-26] MEDS: Insulin Glargine 300 UNITS/3 ML PEN 40 UNITS SC (08:31)
--- NOTE | 2025-01-26 08:33 | IN_ITS ---
PT Notes Visit Reasons: Sepsis, Acute hypoxic respiratory failure, Right p Inpatient Physical Therapy Evaluation Certification Period:? From 01/26/25? Through 02/09/25 I certify the need for these services as being medically necessary and skilled as furnished under this plan of treatment while under my care. Please sign and return within 14 days if you agree with the plan of care listed below.? Thank you for this referral! ? Referring Physician? Date Referring Doctor:? PT Orders: PT CONSULT for Fall Safety Assessment Precautions: Patient Profile/Admitting Diagnosis:? The patient is a 74 yo female admitted to the ICU on 01/24/25 via the ED. Pt is a resident at the [facility] and was found with an altered mental state and low O2 sat. She was referred to physical therapy for fall safety assessment and assistive device evaluation. Past Medical History: [facility] All Active Problems (Updated 01/24/25 @ 03:35 by JUAN DANIEL OROZCO) Severe sepsis (Acute) Pneumonia (Acute) Acute respiratory failure with hypoxia (Acute) Sepsis (Acute) Aspiration pneumonia (Acute) 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 (Acute) Nail dystrophy (Acute) Onychomycosis (Acute) Edema (Acute) Type 2 diabetes mellitus with peripheral neuropathy (Acute) Paresthesias (Acute) Anemia in chronic illness (Acute) Transaminitis (Acute) Obesity (Chronic) Unstageable pressure ulcer of right heel (Acute) Poorly controlled type 2 diabetes mellitus with peripheral neuropathy (Chronic) Low serum iron (Acute) Lumbar back pain with radiculopathy affecting right lower extremity (Acute) Ambulatory dysfunction (Acute) Weakness (Acute) Medical History Follicular disorder, unspecified COVID-19 Vitamin D deficiency, unspecified Unsteadiness on feet Muscle wasting and atrophy, not elsewhere classified, unspecified site Emphysema, unspecified Interstitial pulmonary disease, unspecified Acute pulmonary edema Nausea with vomiting, unspecified Hidradenitis suppurativa Localized edema Tinea unguium Acquired absence of other specified parts of digestive tract Dysphagia, oropharyngeal phase Muscle weakness (generalized) Need for assistance with personal care Primary focal hyperhidrosis, axilla Difficulty in walking, not elsewhere classified Personal history of transient ischemic attack (TIA), and cerebral infarction without residual deficits GERD (gastroesophageal reflux disease) Insomnia Pain HLD (hyperlipidemia) Hemiplegia and hemiparesis following cerebral infarction affecting left non- dominant side Iron deficiency Hemiplegia following cerebrovascular accident (CVA) Pneumonia Constipation Cholecystitis Hypothyroid Gram-negative bacteremia Pleural effusion, left Hyperglycemia due to type 2 diabetes mellitus Urinary tract infection Palliative care patient Physician orders for life-sustaining treatment (POLST) form indicates patient wish for fx-kbn-klrgwaocaju status ACP (advance care planning) Stroke Diabetes Surgical History S/P cholecystectomy History of ERCP S/P tonsillectomy Social History/Home Situation: Patient lives at the [facility]. Subjective: Patient reports that she normally uses a rolling walker for ambulation. She reports that she has been receiving physical therapy services at the [facility] but it was anticipated that she would be discharged from PT services soon. Objective: Mental Status: Patient is alert and oriented. Pain: No complaint ROM/Strength: Upper extremities: Grossly WFL for ROM, strength grossly 4- to 4/5 Lower extremities: Grossly WFL for ROM, strength grossly 4/5 Bed Mobility: Supine to sit Moderate assist of 1 Tranfers: Sit to stand minimal assist of 1 Stand pivot transfer using rolling walker from bed to chair with contact-guard to minimal assist of 1 Balance: Sitting balance: Static sitting balance requires contact-guard of 1 to close supervision Standing balance: Static standing balance requires bilateral upper extremity support and contact-guard of 1, dynamic standing balance requires contact-guard of 1 and bilateral upper extremity support as well as occasional min assist [facility] AM-PAC 6 clicks Basic Mobility Inpatient Short Form: Raw Score:???13? CMS Score: 64.91% Informed Consent/Education:? Patient instructed in purpose of PT consult and plan of care and is agreeable Assessment:? Patient is a?74year old female altered mental status and decreased O2 sat admitted on 01/24/25 for .? Patient presents with pain, decreased strength, decreased functional mobility, decreased balance and difficulty with ambulation. The patient would benefit from skilled inpatient services to improve these impairments to maximize function and safety. Patient is assessed as:? ?? Moderate [id number]?? History: Examination: see above Presentation: Stable and uncomplicated? Evolving clinical presentation? Unstable/unpredictable? Decision Making:? Moderate (1-2 history, 2-3 exam, evolving, mod-30 mins) Physical Therapy Goals: 1 week Able to get in/out of bed with supervision only. Able to perform sit to/from stand with supervision only. Able to walk feet with rolling walker with supervision only. Return to Independent with home exercise program Plan of Care/Treatment Plan: 1-2x/day, 7 days/week x 1 week. Plan of care has been reviewed with the MECHANICAL CAR CHECKER providing the service under Physical Therapy direction. Initiate Physical Therapy intervention for strengthening, bed mobility, transfers, gait, stairs, balance training, use of assistive device. DISCHARGE RECOMMENDATIONS: SNF with PT services to regain function. [id number] 03/30/2012 Billing Charges: Treatment Units Time Duration Manual Therapy(43067) Hands-on techniques to modulate pain increase joint range of motion reduce or eliminate soft tissue swelling, inflammation, or restriction facilitate relaxation and improve contractile and non-contractile tissue ex tensibility ? ? Therapeutic Procedures (15817) Instruction in therapeutic exercises to develop strength and endurance, range of motion and flexibility. HEP instruction and review: Provided skilled instruction in proper exercise performance: Provided skilled manual cues to facilitate proper muscle recruitment and/or movement pattern Neurological Re-Education(28351) To improve balance, coordination, kinesthetic and proprioceptive sensations. ? ? Ultrasound(84794) To promote healing. ? ? Gait Training(57343) ? ? Therapeutic Activity(75909) Instruction in dynamic activities with one on one patient contact by the provider to improve functional performance as follows: ? ? Self Care Training(80031) ? ? E-Stim (Attended)(16417) ? ? Low IE(11091) Mod IE(68655) 1 ? ?30 minutes High IE(27357) ? ? Time Coded Treatment Time ? Total Treatment Time ? 30 Informed consent Prior to the start and throughout the course of the examination and treatment, patient was made aware of the specifics and purpose of the physical assessment and treatment procedures. Appropriate draping procedures were utilized to protect modesty where applicable.
[2025-01-26] MEDS: Budesonide/Formoterol 160/4.5 6 GM 60 PUFF INH IH ×2 (10:10→20:39)
[2025-01-26] MEDS: DOXYCYCLINE 100 MG in Normal Saline 100 ML IVPB ×2 (10:16→22:46)
[2025-01-26] MEDS: Fluticasone NASAL SPRAY 16 GM BTL NS (11:39)
--- NOTE | 2025-01-26 14:29 | W.PM.PROGNOT ---
Date of Service Date of service: 01/26/25 Time of Service: 14:29 Assessment and Plan Assessment and plan (1) Sepsis: Start date: 01/24/25 Status: Acute Assessment and plan: Met sepsi criteria on admission with apparent source the lungs. Started on amp/sulbactam to cover aspiration, vancomycin, and doxycycline. H/o MRSA, but nasal swab negative so stopping vancomycin WBC continues to decrease. (2) Aspiration pneumonia: Start date: 01/24/25 Status: Acute Assessment and plan: IV antibiotic therapy as above. Diagnostic evaluation pending per pulmonology still pending Seen by CONTINUOUS MINING OPERATOR 01/24,. See recommendations. She also seems to have a lot of nasal/flu-like symptoms. Flu/covid/rsv negative on admission, but may have viral component. Using saline/nasal steroid (3) Acute respiratory failure with hypoxia: Start date: 01/24/25 Status: Acute Assessment and plan: Treating aspiration pneumonia as above, also baseline interstitial disease. Chronically she is not on oxygen supplementation at baseline, still on O2 but imrpoving. Can make MS status (4) CHF (congestive heart failure): Status: Chronic Assessment and plan: Preserved LVEF and collapsing IVC on echocardiogram 01/24, stopped IV diuresis 01/25. Edema seems peripheral. Hypoxia from aspiration. she is on emplagliflozin (5) Poorly controlled type 2 diabetes mellitus with peripheral neuropathy: Status: Chronic Assessment and plan: Resumed basal/bolus insulin and sliding scale, glargine at 40mg BID rather than 63 at home. Sugars slightly high, eating more, increase glargine closer to home dose up to 45 BID (6) DVT prophylaxis: Status: Acute Assessment and plan: enoxaparin Subjective Subjective Patient reports: tolerating a regular diet; denies diarrhea, nausea, vomiting or fever Interval history since last seen: 24 hr: Evaluated by CONTINUOUS MINING OPERATOR. No aspiration. Rec. working on oral hygeine Breathing is getting better, but still tired and achy. Exam Narrative Exam Narrative: General: alert, no acute distress CV: normal rate, regular rhythm Respiratory: no wheezing, bilateral wet rhonchi in bases. GI: abd soft, non-tender, non-distended Extremities: trace pitting edema in ankles bilaterally, no digital clubbing, warm Objective Last Vital Signs Temp 36.3 C L 01/26/25 00:13 Pulse 84 01/26/25 11:55 Resp 29 H 01/26/25 10:00 BP 131/89 01/26/25 11:55 Pulse Ox 94 01/26/25 10:18 Laboratory Results - last 24 hr 01/26/25 06:22 WBC 13.72 H RBC 4.11 Hgb 10.3 L Hct 32.3 L MCV 79 L MCH 25.1 L MCHC 31.9 L RDW 16.1 H Plt Count 211 MPV 9.8 Sodium 138 Potassium 3.6 Chloride 100 Carbon Dioxide 32.0 Anion Gap 6.0 BUN 22 H Creatinine 1.0 Est GFR (CKD-EPI 2020) 58.75 Glucose 167 H Calcium 8.9 Magnesium 2.1 Time Spent with Patient Time Spent with Patient: 35-49 minutes Time was spent: preparing to see the patient(eg.review tests), obtaining and/or reviewing separately otained hiistory, ordering medications,tests, procedures, referring, communicating with other health managed care analyst, indepentently interpreting results, counseling the patient and care coordination
[2025-01-26] MEDS: Atorvastatin 40 MG TAB PO (19:55)
[2025-01-26] MEDS: Levothyroxine 150 MCG TAB PO (19:55)
[2025-01-26] MEDS: Docusate Sodium 100 MG CAP PO (19:55)
[2025-01-26] MEDS: Insulin Glargine 300 UNITS/3 ML PEN 45 UNITS SC (20:00)
[2025-01-27] MEDS: AMPICILLIN/SULBACTAM 3 GM in Normal Saline 100 ML IVPB ×3 (00:35→11:55)
[2025-01-27 04:50] VITALS: BP 129/74; PULSE 75; RESP 18; TEMP 36.3; O2SAT 94
[2025-01-27 07:15] VITALS: BP 138/74; PULSE 74; RESP 20; TEMP 36.3; O2SAT 94
[2025-01-27] MEDS: Budesonide/Formoterol 160/4.5 6 GM 60 PUFF INH IH (08:33)
[2025-01-27 08:34] VITALS: O2SAT 93
[2025-01-27] MEDS: Enoxaparin 40 MG/0.4 ML SYR SC (09:02)
[2025-01-27] MEDS: Spironolactone 50 MG TAB PO (09:03)
[2025-01-27] MEDS: Acetaminophen 500 MG TAB 1000 MG PO (09:03)
[2025-01-27] MEDS: Montelukast 10 MG TAB PO (09:03)
[2025-01-27] MEDS: Docusate Sodium 100 MG CAP PO (09:03)
[2025-01-27] MEDS: Pantoprazole 40 MG TABCR PO (09:04)
[2025-01-27] MEDS: Benzonatate 100 MG CAP PO ×2 (09:04→13:18)
[2025-01-27] MEDS: Ferrous Gluconate 324 MG TAB PO (09:04)
[2025-01-27] MEDS: Empaglifozin 10 MG TAB PO (09:04)
[2025-01-27] MEDS: Magnesium Gluconate 500 MG TAB PO ×2 (09:04→13:18)
[2025-01-27] MEDS: guaiFENesin 600 MG TABCR PO (09:04)
[2025-01-27] MEDS: Divalproex 250 MG TABEC 750 MG PO (09:05)
[2025-01-27] MEDS: Normal Saline Flush 10 ML SYR IVP ×3 (09:06→11:57)
[2025-01-27] MEDS: Insulin Glargine 300 UNITS/3 ML PEN 45 UNITS SC (09:08)
--- NOTE | 2025-01-27 09:58 | PTTR_ITS ---
PT Notes Visit Reasons: Sepsis, Acute hypoxic respiratory failure, Right p Inpatient Physical Therapy Treatment Note [facility] Date: 01/27/25 PRECAUTIONS:fall, standard SUBJECTIVE: Nilam has been transferred from ICU to Med Surg. She is off supplemental O2. States that she continues to feel weak and tired. She's been trying to have a bowel movement for the past 30 minutes, but without success. OBJECTIVE: ? PAIN: denies Vitals: ? Post-Ambulation: SaO2 94% on RA, HR 101 ? BED MOBILITY/TRANSFERS? Sit-stand: CGA? Stand-sit: CGA ? Therapeutic Exercises (62066x3): Direct one-on-one instruction in therapeutic exercises to develop strength, endurance, range of motion and flexibility. ? Seated Exercises: LAQ 10x each march 10x each ankle pumps 10x shoulder flexion, alternating, 10x each (deferred on further UE exercises due to discomfort at IV site) ? Ambulation ? Assistive Device: FWW? Weight bearing: WBAT Assist: CGA ? Distance:? 25' ? Deviation: slow gait speed, increasing CASTANO but SaO2 remaining in 90s on RA ? Provided skilled instruction in proper exercise performance: provided written instruction on board for completion of hourly chair exercises between PT sessions ASSESSMENT:? Improving activity tolerance PLAN: Continue PT intervention to maximize activity tolerance and independence during acute care stay TREATMENT CODE/TIME: ?10:00 DISCHARGE RECOMMENDATION: Return to [facility] [place] with resumption of PT services
[2025-01-27] MEDS: Fluticasone NASAL SPRAY 16 GM BTL NS (10:19)
[2025-01-27] MEDS: DOXYCYCLINE 100 MG in Normal Saline 100 ML IVPB (10:20)
[2025-01-27 11:13] VITALS: BP 137/69; PULSE 74; RESP 18; TEMP 37; O2SAT 93
--- NOTE | 2025-01-27 11:16 | CMDISCH_ITS ---
Date of service: 01/27/25 Time of Service: 11:16 LACE Index Scoring Tool Questions: Comorbidities: Diabetes w/o Complication and Congestive Heart Failure E.D. Visits: 3 Care Management Discharge Plan Reason for Hospitalization: Acute respiratory failure with hypoxia Discharge Plan: Nilam was discharged back to the [facility] for resumption of SN and PT. Nilam will follow up with facility and community providers. Patient will continue per the discharge plan of care. [facility] provided transportation via a w/c van. Patient/Family Education Needs: Review discharge instructions and plan to follow up after discharge. Discuss ask me three. Services Needed at Discharge: [facility] Facility (Coordinated by CM) and Transportation (Coordinated by CM) SDOH Health Related Social Needs: Health related social needs lonely/isolated Health related social needs details From [facility]
[2025-01-27] MEDS: Insulin Aspart 300 UNITS/3 ML PEN SC ×2 (12:06)
--- NOTE | 2025-01-27 12:20 | DSE_ITS ---
Date of service: 01/27/25 Time of Service: 12:21 DS: Diagnosis Discharge Diagnosis (1) Sepsis: Status: Acute (2) Aspiration pneumonia: Status: Acute (3) Acute respiratory failure with hypoxia: Status: Acute (4) CHF (congestive heart failure): Status: Chronic (5) Poorly controlled type 2 diabetes mellitus with peripheral neuropathy: Status: Chronic (6) DVT prophylaxis: Status: Acute Discharge Plan Disposition Patient Disposition: [facility] Facility(SNF) Condition: Improving Discharge Details Reason For Visit: Sepsis, Acute hypoxic respiratory failure, Right p Admit Date/Time: 01/24/25 02:39 Admit Provider: Efraín Hammond Attending Provider: Efraín Hammond Primary Care Provider: Nadya Berumen Hospital Course Hospital Course: 74-year-old lady lives at the [facility] and has chronic debilitated with multiple medical problems including type 2 DM, interstitial lung disease, h/o CVA, HRpEF, who was found hypoxic with altered mental status having no memory of the previous 24 to 48 hours. ED evaluation was significant for septic physiology, elevated lactate, hypoxia, and imaging c/w aspiration pneumonia. Flu/covid/RSV negative. She was not hypercarbic. She was initially managed in the ICU with high flow nasal cannula. Her pneumonia was presumed aspiration and treated with amp/sulbactam and vancomycin. Vancomycin was stopped after negative MRSA swab 01/25. Her WBC Her respiratory status improved and she was stable off oxygen by 01/27. She was discharged with 4 more days of amoxicillin/clavulonate and doxycycline. Legionella, mycoplasma, and strep pneumo antigens were still pending at the time of discharge. With sepsis and concern for CHF, crump catheter was ordered but was difficult to place, Urology consulted and placed this with ease. She was seen by speech language pathology and did well with the swallow exam. Ongoing oral hygeine was emphasized to decrease risk of aspiration of secretions at night. She was initially treated with IV furosemide. Echocardogram 01/25 showed normal LVEF and collapsing IVC. Diuresis was stopped and her respiratory status continued to improve. She had lot of nasal congestion and some general achiness. Viral testing negative as above, but she may have a viral URI. Her congestion did improve with nasal saline and fluticasone. She worked with PT and [facility]. Home Meds and New Rx's Prescriptions: New amoxicillin-pot clavulanate 875-125 mg tablet 1 tab PO BID Qty: 8 0RF Rx Instructions: start 8/11 pm doxycycline hyclate 100 mg capsule 100 mg PO BID Qty: 8 0RF fluticasone propionate 50 mcg/actuation [place],Suspension 1 spray NS BID Qty: 0 0RF Saline Nasal Mist 0.65 % aerosol,spray See Rx Instructions .ROUTE .COMPLEX PRNQty: 44 0RF Rx Instructions: 2 sprays NS BID prior to flonase and q 4 hr prn Continued melatonin 3 mg tablet 3 mg PO HS PRN Cosentyx UnoReady Pen 300 mg/2 mL (150 mg/mL) pen injector 300 mg subcut .q month magnesium gluconate [Mag-G] 27 mg magnesium (500 mg) tablet 27 mg PO TID benzonatate 100 mg capsule 100 mg PO TID divalproex 250 mg tablet,delayed release (DR/EC) 750 mg PO BID ipratropium-albuterol 0.5 mg-3 mg(2.5 mg base)/3 mL solution for nebulization 3 ml inhalation Q6H PRN diclofenac sodium 1 % gel 4 g topical .Q8 PRN Rx Instructions: apply to right knee every 8 hours as needed guaifenesin 100 mg/5 mL liquid 200 mg PO Q4H PRN albuterol sulfate 90 mcg/actuation HFA aerosol inhaler 2 puff inhalation 6XD Rx Instructions: wheezing ondansetron HCl 4 mg tablet 4 mg PO Q6H PRN montelukast 10 mg tablet 10 mg PO DAILY atorvastatin 40 mg tablet 40 mg PO HS acetaminophen 500 mg Tablet 1,000 mg PO TID MDD 3000 mg Qty: 60 0RF pantoprazole 40 mg Tablet,Delayed Release (Dr/Ec) 40 mg PO DAILY@0730 Qty: 10 0RF (DME) lancets [FreeStyle Lancets] 28 gauge misc See Rx Instructions .Route Qty: 100 0RF Rx Instructions: As directed (DME) blood-glucose meter [FreeStyle Lite Meter] Kit See Rx Instructions .Route Qty: 1 0RF Rx Instructions: As directed (DME) FreeStyle Lite Strips Strip See Rx Instructions .Route Qty: 100 0RF Rx Instructions: As directed spironolactone 50 mg tablet 50 mg PO DAILY docusate sodium [Colace] 100 mg Capsule 100 mg PO BID Qty: 30 0RF insulin lispro [Humalog KwikPen Insulin] 100 unit/mL insulin pen 4 unit subcut TID Rx Instructions: Give 4 units in addition to sliding scale. Do not give if BS is under 200. budesonide-formoterol 160-4.5 mcg/actuation HFA aerosol inhaler 2 puff INHALATION BID chlorhexidine gluconate [Hibiclens] 4 % liquid 1 applic topical DAILY Rx Instructions: as a single dose ferrous gluconate 324 mg (37.5 mg iron) tablet 324 mg PO DAILY levothyroxine 150 mcg tablet 150 mcg PO HS polyethylene glycol 3350 [ClearLax] 17 gram/dose powder 17 g PO DAILY calcium carbonate [Calcium 500] 500 mg calcium (1,250 mg) tablet,chewable 1,000 mg PO ONCE PRN Rx Instructions: 2 tabs Q3H insulin glargine [Lantus Solostar U-100 Insulin] 100 unit/mL (3 mL) insulin pen 63 unit subcut BID Trulicity 4.5 mg/0.5 mL pen injector 4.5 mg subcut QWEEK Patient Comments: Takes on per [facility] [employer] [facility] psyllium husk [Reguloid (psyllium husk)] 0.4 gram capsule 0.4 g PO DAILY Jardiance 10 mg tablet 10 mg PO DAILY furosemide 40 mg Tablet 40 mg PO BID Rx Instructions: Take one tab @ 0800 & 1400 Discharge Instructions Additional Instructions: Start the antibiotics oraly tonight continue to use the saline and steroid nasal sprays until the congestion feels better Activity:: Activity as Tolerated Equipment/Supplies:: No Equipment Needed Diet:: Carb Counting Discharge Orders Discharge Orders: Discharge Order (Routine); Ordered 01/27/25 Ordered By: Harvey Pillai DS: Summary Time Spent with Patient providing and/or coordinating discharge services: Greater than 30 minutes Status at Discharge Functional status at discharge: uses cane/walker Overall status at discharge: patient is progressing back to baseline Mental Status: mental status grossly normal Speech and Movement: speech and movement normal Mood: congruent mood Affect: normal affect Quality:SDOH Health Related Social Needs: Health related social needs lonely/isolated Health related social needs details From [facility] Exam Narrative Exam Narrative: General: alert, no acute distress CV: normal rate, regular rhythm Respiratory: no wheezing, bilateral rales/wet rhonchi in bases, clear superiorly. GI: abd soft, non-tender, non-distended Extremities: trace pitting edema in ankles bilaterally, no digital clubbing, warm Psych Mental Status: mental status grossly normal Speech and Movement: speech and movement normal Mood: congruent mood Affect: normal affect DS: Data Vitals/I&O Vitals and I&O: Vital Signs Temperature 37.0 C 01/27/25 11:13 Temperature Source Temporal Artery Scan 01/27/25 11:13 Pulse 74 01/27/25 11:13 Pulse 84 01/26/25 10:00 Respiratory Rate 18 01/27/25 11:13 Respiratory Effort Short of Breath, Incrsd Work of Breathing 01/24/25 05:01 Respiratory Depth Shallow 01/24/25 05:01 Respiratory Pattern Irregular 01/24/25 05:01 Blood Pressure 137/69 01/27/25 11:13 Blood Pressure Mean 91 01/27/25 11:13 Blood Pressure Position Supine 01/24/25 05:01 Pulse Oximetry 93 01/27/25 11:13 Respiratory End-tidal CO2 37 01/24/25 03:31 Oxygen Delivery Method Room Air 01/27/25 11:13 Oxygen Flow Rate 0 01/27/25 11:13 Pain Level 8 01/27/25 04:50 Comment pt on 4L NC 01/24/25 00:01 Intake & Output 01/26/25 01/27/25 01/27/25 23:59 11:59 23:59 Intake Total 640 / 1180 660 / 660 Output Total 1550 / 2275 950 / 950 Balance -910 / -1095 -290 / -290 Weight 112.3 kg Intake: IV 400 / 700 300 / 300 Oral 240 / 480 360 / 360 Output: Urine 1550 / 2275 950 / 950 Other: Urine Color Light Lexis Yellow Urine Appearance Clear Clear Stool Size Copious Stool Characteristics Soft Formed Brown Data Completed and Pending Labs on day of discharge: Preliminary micro results at discharge 01/24/25 16:46 Sputum Sputum Culture - Preliminary Normal Gogo 01/23/25 22:49 Blood Blood Culture - Preliminary NO GROWTH 72 HOURS 01/23/25 22:38 Blood Blood Culture - Preliminary NO GROWTH 72 HOURS PFSH All Active Problems (Updated 01/25/25 @ 14:36 by Harvey Pillai) DVT prophylaxis (Acute) Difficult Crump catheter placement (Acute) Severe sepsis (Acute) Pneumonia (Acute) Sepsis (Acute) Aspiration pneumonia (Acute) Mucocele of frontal sinus (Acute) Hypoplastic maxillary sinus (Acute) Hypoxia (Acute) Acute respiratory failure with hypoxia (Acute) Chronic cough (Acute) Personal history of Methicillin resistant Staphylococcus aureus infection (Acute) Dysphagia (Acute) Extended spectrum beta lactamase (ESBL) resistance (Acute) Hypo-osmolar hyponatremia (Acute) Type 2 diabetes mellitus with foot ulcer (Acute) Radiculopathy, lumbar region (Acute) Pleural effusion, not elsewhere classified (Acute) Acute on chronic combined systolic (congestive) and diastolic (congestive) heart failure (Acute) Hemiplegia of left 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 (Acute) Nail dystrophy (Acute) Onychomycosis (Acute) Edema (Acute) Type 2 diabetes mellitus with peripheral neuropathy (Acute) Paresthesias (Acute) Anemia in chronic illness (Acute) Transaminitis (Acute) Obesity (Chronic) Unstageable pressure ulcer of right heel (Acute) Poorly controlled type 2 diabetes mellitus with peripheral neuropathy (Chronic) Low serum iron (Acute) Lumbar back pain with radiculopathy affecting right lower extremity (Acute) Ambulatory dysfunction (Acute) Weakness (Acute) CHF (congestive heart failure) (Chronic) 2020, pt. denies any deficits now Medical History Follicular disorder, unspecified COVID-19 Vitamin D deficiency, unspecified Unsteadiness on feet Muscle wasting and atrophy, not elsewhere classified, unspecified site Emphysema, unspecified Interstitial pulmonary disease, unspecified Acute pulmonary edema Nausea with vomiting, unspecified Hidradenitis suppurativa Localized edema Tinea unguium Acquired absence of other specified parts of digestive tract Dysphagia, oropharyngeal phase Muscle weakness (generalized) Need for assistance with personal care Primary focal hyperhidrosis, axilla Difficulty in walking, not elsewhere classified Personal history of transient ischemic attack (TIA), and cerebral infarction without residual deficits GERD (gastroesophageal reflux disease) Insomnia Pain HLD (hyperlipidemia) Hemiplegia and hemiparesis following cerebral infarction affecting left non- dominant side Iron deficiency Hemiplegia following cerebrovascular accident (CVA) Pneumonia Constipation Cholecystitis Hypothyroid Gram-negative bacteremia Pleural effusion, left Hyperglycemia due to type 2 diabetes mellitus Urinary tract infection Palliative care patient Physician orders for life-sustaining treatment (POLST) form indicates patient wish for [id number] status ACP (advance care planning) Stroke Diabetes Surgical History S/P cholecystectomy History of ERCP S/P tonsillectomy Family History Mother Cancer Social History Smoking/Tobacco Use Status: Never Smoking risk assessment performed?: Yes Alcohol Intake: never Drug use: Never Substance use type: does not use Housing: group home What is your relationship status?: Panel score (0-1 are the most socially isolated patients): 0 Do you feel safe at home: Yes Do you feel safe in your relationship?: Yes Additional Social history: PT RESIDES AT THE [facility] Time Spent with Patient Time Spent with Patient: 45-69 minutes Time was spent: preparing to see the patient(eg.review tests), obtaining and/or reviewing separately otained hiistory, ordering medications,tests, procedures, referring, communicating with other health clinical manager home care, indepentently interpreting results, counseling the patient and care coordination
[2025-01-27 15:36] LABS: Streptococcus Pneumoniae Ag, U Negative (Negative)
[2025-01-28 14:16] LABS: M. pneumoniae Ab, IgG Positive (Negative); M. pneumoniae Ab, IgM Negative (Negative)
== END 2025-01-27 13:32 | disposition skilled nursing facility (03) | DRG 871 ==
LOC: ER 01-24 02:58 → ICU 01-24 03:35 → MS 01-26 15:18
PROVIDERS: Internal Medicine Pulmonary Disease; Admitting Provider Family Medicine; Emergency Provider Student in an Organized Health Care Education/Training Program; PCP Nurse Practitioner Gerontology; Responsible Provider Family Medicine; Visit Provider Family Medicine
DX: A41.9 Sepsis, unspecified organism (principal); J96.01 Acute respiratory failure with hypoxia; J69.0 Pneumonitis due to inhalation of food and vomit; E11.42 Type 2 diabetes mellitus with diabetic polyneuropathy; E11.65 Type 2 diabetes mellitus with hyperglycemia; K21.9 Gastro-esophageal reflux disease without esophagitis; E78.2 Mixed hyperlipidemia; E03.9 Hypothyroidism, unspecified; J45.40 Moderate persistent asthma, uncomplicated; I69.354 Hemiplegia and hemiparesis following cerebral infarction affecting left non-dominant side; I50.42 Chronic combined systolic (congestive) and diastolic (congestive) heart failure; E87.1 Hypo-osmolality and hyponatremia; Z68.41 Body mass index [BMI] 40.0-44.9, adult; R05.3 Chronic cough; M54.16 Radiculopathy, lumbar region; B35.1 Tinea unguium; D63.8 Anemia in other chronic diseases classified elsewhere; R74.01 Elevation of levels of liver transaminase levels; R53.1 Weakness; E55.9 Vitamin D deficiency, unspecified; R26.2 Difficulty in walking, not elsewhere classified; R13.12 Dysphagia, oropharyngeal phase; Z79.4 Long term (current) use of insulin; E86.0 Dehydration; J98.2 Interstitial emphysema; R41.82 Altered mental status, unspecified; Z66 Do not resuscitate; E66.01 Morbid (severe) obesity due to excess calories; R45.89 Other symptoms and signs involving emotional state; J34.1 Cyst and mucocele of nose and nasal sinus
CPT/HCPCS: 36573; 51702; 00123; 36415; 76604; 80048; 80053; 82805; 84145; 85027; 87040; 87449; 87637; 87641; 92526; 92610; 93005; 93306; 94640; 96365; 96366; 96367; 96368; 97110; 97161; 99221; 99222; 99291; J1650; 71045; 80202; 81003; 81015; 82140; 83605; 83735; 83880; 84443; 84484; 85025; 85610; 85730; 86738; 87070; 87086; 87205; 87899; 93010; 94664; 94667; 94668; 94760; 99223; 99232; 99233; 99239; J0131; J0295; J1815; J2543; J3373; J3490

== ENCOUNTER → 2025-01-25 09:21 | Outpatient (BNVA) | payer MEDICARE, MEDICAID, SELFPAY | PROVIDERS: PCP Nurse Practitioner Gerontology; Referring Provider Nurse Practitioner Gerontology; Visit Provider Urology ==

== ENCOUNTER 2025-01-28 17:56 | Outpatient (REF) | payer SELFPAY ==
[2025-01-28 17:03] LABS: Abs Immature Grans 0.17 10^3/uL (0.0-0.06); HCT 36.9 % (36.0-46.0); HGB 11.1 g/dL (11.2-15.7); Immature Grans % 1.5 %; MCH 24.4 pg (27.0-33.0); MCHC 30.1 % (32.0-36.0); MCV 81 fL (80-95); MPV 9.6 fL (8.0-11.0); Platelet Count 281 10^3/uL (130-400); RBC 4.54 10^6/uL (3.93-5.22); RDW 16.5 % (11.7-14.6); RDW-SD 48.7 fL; WBC 11.01 10^3/uL (4.4-10.8)
[2025-01-28 18:58] LABS: ALT 23 U/L (14-59); AST 17 U/L (15-37); Albumin 2.6 g/dL (3.4-5.0); Alkaline Phosphatase 63 U/L (46-116); Anion Gap 7.8 mmol/L (3-11); BUN 18 mg/dL (7-18); Bilirubin, Total 0.3 mg/dL (0.2-1.0); CO2 29.2 mmol/L (21.0-32.0); Calcium 8.8 mg/dL (8.5-10.1); Chloride 101 mmol/L (98-107); Estimated GFR 52.40 (mL/min/1.73m2); Glucose 203 mg/dL (74-106); Potassium 4.1 mmol/L (3.5-5.1); Sodium 138 mmol/L (136-145); Total Protein 6.8 g/dL (6.4-8.2)
== END 2025-01-28 17:57 | disposition home or self-care (01) ==
LOC: LBN 17:56
PROVIDERS: PCP Nurse Practitioner Gerontology; Visit Provider Nurse Practitioner Gerontology
DX: E87.8 Other disorders of electrolyte and fluid balance, not elsewhere classified (principal)
CPT/HCPCS: 80053; 85025

== ENCOUNTER 2025-02-13 17:43 | Outpatient (REF) | payer SELFPAY ==
[2025-02-13 18:15] LABS: Abs Immature Grans 0.04 10^3/uL (0.0-0.06); HCT 39.7 % (36.0-46.0); HGB 12.1 g/dL (11.2-15.7); Immature Grans % 0.4 %; MCH 24.5 pg (27.0-33.0); MCHC 30.5 % (32.0-36.0); MCV 80 fL (80-95); MPV 10.0 fL (8.0-11.0); Platelet Count 281 10^3/uL (130-400); RBC 4.94 10^6/uL (3.93-5.22); RDW 17.2 % (11.7-14.6); RDW-SD 49.2 fL; WBC 10.55 10^3/uL (4.4-10.8)
[2025-02-13 18:33] LABS: ALT 19 U/L (14-59); AST 11 U/L (15-37); Albumin 3.2 g/dL (3.4-5.0); Alkaline Phosphatase 63 U/L (46-116); Anion Gap 9.2 mmol/L (3-11); BUN 23 mg/dL (7-18); Bilirubin, Total 0.3 mg/dL (0.2-1.0); CO2 30.8 mmol/L (21.0-32.0); Calcium 8.9 mg/dL (8.5-10.1); Chloride 96 mmol/L (98-107); Estimated GFR 42.88 (mL/min/1.73m2); Glucose 181 mg/dL (74-106); Magnesium 2.1 mg/dL (1.8-2.4); NT-proBNP 134 pg/mL (<300); Potassium 4.2 mmol/L (3.5-5.1); Sodium 136 mmol/L (136-145); Total Protein 7.5 g/dL (6.4-8.2)
== END 2025-02-13 17:44 | disposition home or self-care (01) ==
LOC: LBN 17:43
PROVIDERS: PCP Nurse Practitioner Gerontology; Visit Provider Nurse Practitioner Gerontology
DX: I50.42 Chronic combined systolic (congestive) and diastolic (congestive) heart failure (principal); E87.8 Other disorders of electrolyte and fluid balance, not elsewhere classified; D63.1 Anemia in chronic kidney disease; E83.42 Hypomagnesemia
CPT/HCPCS: 80053; 83735; 83880; 85025

== ENCOUNTER 2025-02-28 01:10 | Inpatient (IN) | payer MEDICARE, MEDICAID, SELFPAY ==
[2025-02-28] VITALS (116 sets, daily range): BP systolic 100–137; BP diastolic 40–84; PULSE 61–123; RESP 23–40; TEMP 36.8–39.7; O2SAT 80–98
--- NOTE | 2025-02-28 01:00 | RT.EKG_ITS ---
APPROVED REPORT Exam: Resting ECG Reason for Exam: SOB Patient Location: E HR:124 bpm ECG Measurements Heart Rate 124 AXIS IL 84 P -67 QRSd 133 QRS -58 QT 408 T 127 QTc 586 Conclusion Sinus or ectopic atrial tachycardia...P axis (-45,135), rate> 99 Left bundle branch block...QRSd>120, broad/notched R ST elevation secondary to IVCD...Multiple VCG criteria Physician: LBBB, notable artifact, inconclusive
--- NOTE | 2025-02-28 01:15 | DI.CT_ITS ---
Exam(s) CT CHEST/ABD/PEL WO EXAM: CT CHEST/ABD/PEL WO CLINICAL HISTORY: aspiration, altered, vomiting. TECHNIQUE: Imaging Protocol: Axial computed tomography images with coronal and sagittal reformatted images were created and reviewed CONTRAST MATERIAL: Intravenous: none Oral: None COMPARISON: CT CT CHEST/ABD/PEL W from 10/15/2024 FINDINGS: CHEST: Study limited by poor inspiratory effort and respiratory motion LUNGS: There is significant confluent infiltrates in the posterior basal segments of both lower lobes, slightly more so on the left side. There are no cavitation and there no associated pleural effusions.. No ominous masses. No significant focal findings in the trachea and mainstem bronchi. There does not appear to be obvious bronchiectasis. MEDIASTINUM: No obvious hilar nor mediastinal adenopathy. Visualized thyroid unremarkable. CARDIAC: Mild cardiomegaly. No pericardial effusion.Diameter of the ascending thoracic aorta is enlarged, measuring 4.1 cm. OSSEOUS: Fractures nor significant osseous lesions.. ABDOMEN: There is no ascites. LIVER: There are no obvious focal hepatic lesions evident of this noninfused study. GALLBLADDER/BILIARY: Gallbladder is surgically absent. CBD is not dilated. PANCREAS: No evidence of obvious pancreatic mass nor dilatation of the pancreatic duct. SPLEEN: Spleen is not enlarged. No obvious intrasplenic lesions. ADRENALS: There are no significant adrenal masses. KIDNEYS: No calculi nor hydronephrosis. No obvious solid renal masses. No cysts evident. ABDOMINAL AORTA: Abdominal aorta is not enlarged. LYMPH NODES: There is no retroperitoneal nor para-aortic adenopathy. ABDOMINAL WALL/GI: No evidence of significant anterior abdominal wall nor inguinal hernia. No evidence of bowel obstruction. PELVIS: LYMPH NODES: There is no intrapelvic nor inguinal adenopathy. GI: No evidence of appendicitis.No evidence of sigmoid diverticulitis. URINARY BLADDER: No calculi nor obvious masses evident REPRODUCTIVE: Uterus is anteverted. No obvious fibroids. No significant adnexal masses nor free fluid in the pelvis. OSSEOUS: No fractures nor significant osseous lesions. Multilevel chronic degenerative disc disease noted, most prominent disc space narrowing is at L3-4 level. There is no listhesis. IMPRESSION: 1. There is significant infiltrate in both lower lobes specifically in the posterior basal segments bilaterally. Findings are probably consistent with bilateral aspiration pneumonia. There are no pleural effusions. There is no intrathoracic adenopathy. 2. Mild cardiomegaly. Enlarged ascending thoracic aorta with diameter 4.1 cm. There is no pericardial effusion. 3. No acute findings in the abdomen and pelvis. The gallbladder is noted to be surgically absent. Preliminary virtual Radiology report was reviewed RADIATION DOSE DELIVERED: 1,454.57mGy.cm Total DLP DATA REPOSITORY: All CT scans at this facility are submitted to the National Radiology Data Registry (NRDR) Dose Index Registry (DIR) with the [employer] (A[employer]). RADIATION OPTIMIZATION: All CT scans at this facility use at least one of these dose optimization techniques: automated exposure control; mA and/or kV adjustment per patient size (includes targeted exams where dose is matched to clinical indication); or iterative reconstruction.
--- NOTE | 2025-02-28 01:20 | W.ED.GENAD ---
Discharge Plan Disposition Patient Disposition: Admit to [facility] Condition: Serious Discharge Details Clinical Impression: Acute hypoxemic respiratory failure, Aspiration pneumonia, Sepsis Primary Care Provider: Nadya Berumen ED Provider: Norberto Grijalva Home Meds and New Rx's Prescriptions: No Action melatonin 3 mg tablet 3 mg PO HS PRN Cosentyx UnoReady Pen 300 mg/2 mL (150 mg/mL) pen injector 300 mg subcut .q month magnesium gluconate [Mag-G] 27 mg magnesium (500 mg) tablet 27 mg PO TID benzonatate 100 mg capsule 100 mg PO TID divalproex 250 mg tablet,delayed release (DR/EC) 750 mg PO BID ipratropium-albuterol 0.5 mg-3 mg(2.5 mg base)/3 mL solution for nebulization 3 ml inhalation Q6H PRN diclofenac sodium 1 % gel 4 g topical .Q8 PRN Rx Instructions: apply to right knee every 8 hours as needed guaifenesin 100 mg/5 mL liquid 200 mg PO Q4H PRN albuterol sulfate 90 mcg/actuation HFA aerosol inhaler 2 puff inhalation 6XD Rx Instructions: wheezing ondansetron HCl 4 mg tablet 4 mg PO Q6H PRN montelukast 10 mg tablet 10 mg PO DAILY atorvastatin 40 mg tablet 40 mg PO HS acetaminophen 500 mg Tablet 1,000 mg PO TID MDD 3000 mg Qty: 60 0RF pantoprazole 40 mg Tablet,Delayed Release (Dr/Ec) 40 mg PO DAILY@0730 Qty: 10 0RF (DME) lancets [FreeStyle Lancets] 28 gauge misc See Rx Instructions .Route Qty: 100 0RF Rx Instructions: As directed (DME) blood-glucose meter [FreeStyle Lite Meter] Kit See Rx Instructions .Route Qty: 1 0RF Rx Instructions: As directed (DME) FreeStyle Lite Strips Strip See Rx Instructions .Route Qty: 100 0RF Rx Instructions: As directed spironolactone 50 mg tablet 50 mg PO DAILY docusate sodium [Colace] 100 mg Capsule 100 mg PO BID Qty: 30 0RF insulin lispro [Humalog KwikPen Insulin] 100 unit/mL insulin pen 4 unit subcut TID Rx Instructions: Give 4 units in addition to sliding scale. Do not give if BS is under 200. budesonide-formoterol 160-4.5 mcg/actuation HFA aerosol inhaler 2 puff INHALATION BID chlorhexidine gluconate [Hibiclens] 4 % liquid 1 applic topical DAILY Rx Instructions: as a single dose ferrous gluconate 324 mg (37.5 mg iron) tablet 324 mg PO DAILY amoxicillin-pot clavulanate 875-125 mg tablet 1 tab PO BID Qty: 8 0RF Rx Instructions: start 8/11 pm doxycycline hyclate 100 mg capsule 100 mg PO BID Qty: 8 0RF fluticasone propionate 50 mcg/actuation Hopkins,Suspension 1 spray NS BID Qty: 0 0RF Saline Nasal Mist 0.65 % aerosol,spray See Rx Instructions .ROUTE .COMPLEX PRNQty: 44 0RF Rx Instructions: 2 sprays NS BID prior to flonase and q 4 hr prn levothyroxine 150 mcg tablet 150 mcg PO HS polyethylene glycol 3350 [ClearLax] 17 gram/dose powder 17 g PO DAILY calcium carbonate [Calcium 500] 500 mg calcium (1,250 mg) tablet,chewable 1,000 mg PO ONCE PRN Rx Instructions: 2 tabs Q3H insulin glargine [Lantus Solostar U-100 Insulin] 100 unit/mL (3 mL) insulin pen 63 unit subcut BID Trulicity 4.5 mg/0.5 mL pen injector 4.5 mg subcut QWEEK Patient Comments: Takes on per [facility] H&R MAR psyllium husk [Reguloid (psyllium husk)] 0.4 gram capsule 0.4 g PO DAILY Jardiance 10 mg tablet 10 mg PO DAILY furosemide 40 mg Tablet 40 mg PO BID Rx Instructions: Take one tab @ 0800 & 1400 [facility] General Date/Time Provider Initiated Documentation: 02/28/25 01:20. HPI Narrative: 74-year-old female with a past medical history of type 2 diabetes, high cholesterol, mild congestive heart failure, hypothyroidism, GERD, chronic cough, who resides at the [facility], presents today for evaluation of vomiting and potential aspiration and became altered. Per the [facility] the patient was on the Karly lift somewhat potentially leaning backwards when she vomited, was concern for aspiration. She was started on oxygen and brought to the ER for further assessment. Oxygen saturations were in the 80s initially she was started on 5 L via nasal cannula. Mental status is altered. Patient is not able to add anything to history. Related Data Home Medications ?Medication ?Instructions ?Recorded ?Confirmed atorvastatin 40 mg tablet 40 mg PO HS 09/04/23 01/24/25 acetaminophen 500 mg tablet 1,000 mg (2 x 500 mg) PO TID #60 09/06/23 01/24/25 tabs blood sugar diagnostic (FreeStyle #100 ea 09/06/23 01/24/25 Lite Strips) blood-glucose meter (FreeStyle #1 ea 09/06/23 01/24/25 Lite Meter kit) lancets 28 gauge (FreeStyle #100 ea 09/06/23 01/24/25 Lancets) pantoprazole 40 mg tablet,delayed 40 mg PO DAILY@0730 #10 tabs 09/06/23 01/24/25 release levothyroxine 150 mcg tablet 150 mcg PO HS 10/19/23 01/24/25 polyethylene glycol 3350 17 17 g PO DAILY 11/29/23 01/24/25 gram/dose oral powder (ClearLax) benzonatate 100 mg capsule 100 mg PO TID 03/01/24 01/24/25 magnesium gluconate 27 mg 27 mg PO TID 03/01/24 01/24/25 magnesium (500 mg) tablet (Mag-G) melatonin 3 mg tablet 3 mg PO HS PRN 03/15/24 01/24/25 secukinumab 300 mg/2 mL 300 mg subcut .q month 03/15/24 01/24/25 subcutaneous pen injector (Cosentyx UnoReady Pen) calcium carbonate (Calcium 500) 1,000 mg PO ONCE PRN 03/16/24 01/24/25 spironolactone 50 mg tablet 50 mg PO DAILY 04/28/24 01/24/25 docusate sodium 100 mg capsule 100 mg PO BID #30 caps 05/16/24 01/24/25 (Colace) albuterol sulfate 90 mcg/actuation 2 puff inhalation 6XD 09/20/24 01/24/25 aerosol inhaler diclofenac sodium 1 % topical gel 4 g topical .Q8 PRN 09/20/24 01/24/25 divalproex 250 mg tablet,delayed 750 mg PO BID 09/20/24 01/24/25 release guaifenesin 100 mg/5 mL oral liquid 200 mg PO Q4H PRN 09/20/24 01/24/25 insulin glargine 100 unit/mL (3 63 unit subcut BID 09/20/24 01/24/25 mL) subcutaneous pen (Lantus Solostar U-100 Insulin) ipratropium 0.5 mg-albuterol 3 mg 3 ml inhalation Q6H PRN 09/20/24 01/24/25 (2.5 mg base)/3 mL nebulization soln montelukast 10 mg tablet 10 mg PO DAILY 09/20/24 01/24/25 ondansetron HCl 4 mg tablet 4 mg PO Q6H PRN 09/20/24 01/24/25 dulaglutide 4.5 mg/0.5 mL 4.5 mg subcut QWEEK 10/15/24 01/24/25 subcutaneous pen injector (Trulicity) empagliflozin 10 mg tablet 10 mg PO DAILY 10/15/24 01/24/25 (Jardiance) furosemide 40 mg tablet 40 mg PO BID 10/15/24 01/24/25 psyllium husk 0.4 gram capsule 0.4 g PO DAILY 10/15/24 01/24/25 (Reguloid (psyllium husk)) budesonide-formoterol HFA 160 2 puff inhalation BID 01/24/25 01/24/25 mcg-4.5 mcg/actuation aerosol inhaler chlorhexidine gluconate 4 % 1 applic topical DAILY 01/24/25 01/24/25 topical liquid (Hibiclens) ferrous gluconate 324 mg (37.5 mg 324 mg PO DAILY 01/24/25 01/24/25 iron) tablet insulin lispro 100 unit/mL 4 unit subcut TID 01/24/25 01/24/25 subcutaneous pen (Humalog KwikPen (U-100) Insulin) amoxicillin 875 mg-potassium 1 tab PO BID #8 tabs 01/27/25 clavulanate 125 mg tablet doxycycline hyclate 100 mg capsule 100 mg PO BID #8 caps 01/27/25 fluticasone propionate 50 1 spray NS BID #0 grams 01/27/25 mcg/actuation nasal spray,suspension sodium chloride 0.65 % nasal spray See Rx Instructions .Route 01/27/25 aerosol (Saline Nasal Mist) .COMPLEX PRN #44 mL Previous Rx's ?Medication ?Instructions ?Recorded acetaminophen 500 mg tablet 1,000 mg (2 x 500 mg) PO TID #60 09/06/23 tabs blood sugar diagnostic (FreeStyle #100 ea 09/06/23 Lite Strips) blood-glucose meter (FreeStyle #1 ea 09/06/23 Lite Meter kit) lancets 28 gauge (FreeStyle #100 ea 09/06/23 Lancets) pantoprazole 40 mg tablet,delayed 40 mg PO DAILY@0730 #10 tabs 09/06/23 release docusate sodium 100 mg capsule 100 mg PO BID #30 caps 05/16/24 (Colace) amoxicillin 875 mg-potassium 1 tab PO BID #8 tabs 01/27/25 clavulanate 125 mg tablet doxycycline hyclate 100 mg capsule 100 mg PO BID #8 caps 01/27/25 fluticasone propionate 50 1 spray NS BID #0 grams 01/27/25 mcg/actuation nasal spray,suspension sodium chloride 0.65 % nasal spray See Rx Instructions .Route 01/27/25 aerosol (Saline Nasal Mist) .COMPLEX PRN #44 mL Allergies Allergy/AdvReac Type Severity Reaction Status Date / Time No Known Allergies Allergy Verified 01/24/25 00:38 General TRINIDAD: 3 Exam Narrative Exam Narrative: 1.Const: Well-nourished, Well-developed, appearing stated age 2.Eyes: PERRL, no conjunctival injection, and symmetrical lids. 3.ENT: Atraumatic external nose and ears. Moist MM. Neck: Symmetric, trachea midline, No thyromegaly. 4.CVS: +S1/S2, Peripheral pulses 2+ and equal in all extremities. Brisk capillary refill in all extremities. 5.RESP: Rhonchorous breath sounds throughout 6.GI: Soft, Nontender/Nondistended, No hepatosplenomegaly. No guarding or rebound. 7.MSK: Normocephalic/Atraumatic, Extremities w/o deformity or ttp No cyanosis or clubbing, Normal movement of all extremities 8.Skin: Warm, Dry. No rashes or lesions. 9.Neuro: licensed weigher II-XII grossly intact. Sensation grossly intact, no focal neurologic deficits. 10.Psych: (AAO) x0 GCS is 10. Patient altered Course Lab/Test Results Lab/Test Results: 02/28/25 01:18 Blood Blood Culture - Pending 02/28/25 01:18 Blood Blood Culture - Pending Medical Decision Making 74-year-old female with a past medical history of type 2 diabetes, high cholesterol, mild congestive heart failure, hypothyroidism, GERD, chronic cough, who resides at the [facility], presents today for evaluation of vomiting and potential aspiration and became altered. Per the [facility] the patient was on the Karly lift somewhat potentially leaning backwards when she vomited, was concern for aspiration. She was started on oxygen and brought to the ER for further assessment. Oxygen saturations were in the 80s initially she was started on 5 L via nasal cannula. Mental status is altered. Patient is not able to add anything to history. Exam demonstrates altered patient with a GCS of 10, rhonchorous breath sounds, hypoxic at 90% on 5 L. Additionally she is febrile. Concern for aspiration pneumonia, pneumonia or sepsis. Will start with Unasyn, get a CT scan of the chest and abdomen to evaluate for obstruction and pneumonia, monitor closely and reassess. Patient is DNR/DNI, with request for avoidance of intubation or invasive interventions. 4:02 AM Laboratory workup shows white count, elevated lactate, elevated procalcitonin. Troponin stable. CT scan shows notable aspiration pneumonia. Unfortunately the patient's oxygen demand keeps increasing. She was raised to 8 L on nonrebreather mask, and still was saturating at 84%. I did contact family and discussed the case with the daughter Kathy. Patient is DNR/DNI status. In the past she has tolerated BiPAP before during the situations of aspiration. I discussed that again with the family and they agree with trial of BiPAP. Although the patient does have aspiration risk, I feel that with her increasing oxygen demand she would transition to acidosis and worsening hypoxemia if further more aggressive respiratory intervention is not performed. Family agrees with plan for BiPAP. Respiratory therapy started BiPAP and then transition to CPAP for patient. Patient now remained stable on CPAP with good oxygenation. Vancomycin and Unasyn have been given for aspiration pneumonia as well as her multiple recent admissions with pneumonia in the past 90 days. Discussed the case with the hospitalist Dr. Hammond, he agrees with the assessment and plan. I have extensively reviewed the treatment plan with the patient. I have addressed all patient concerns at this time. I have also discussed the plan with the admitting physician and they agree with the current assessment and plan and have agreed to assume responsibility for the patient. All parties demonstrate verbal understanding and agreement with our assessment and plan at this time. The documentation in this chart was dictated using [employer] dictation software. Please excuse any dictation errors. FINDINGS: Lungs: Expiratory phase imaging with dependent/bibasilar atelectasis; however, even allowing for this, there is dependent basilar bilateral lower lobe aspiration pneumonia. Pleural spaces: Unremarkable. No pneumothorax. No pleural effusion. Heart: Mild cardiomegaly. Esophagus: Esophagus is unremarkable. Lymph nodes: Unremarkable. No enlarged lymph nodes. Vasculature: Thoracic aorta is atherosclerotic but normal caliber. Bones/joints: Unremarkable. No acute fracture. Soft tissues: Unremarkable. IMPRESSION: Expiratory phase imaging with dependent/bibasilar atelectasis; however, even allowing for this, there is dependent basilar bilateral lower lobe aspiration pneumonia. FINDINGS: Liver: Normal. No mass. Gallbladder and biliary ducts: Prior cholecystectomy. No biliary ductal dilatation. Pancreas: Unremarkable. Spleen: Normal. Adrenal glands: Normal. No mass. Kidneys and ureters: Normal. No hydronephrosis. Stomach and bowel: No bowel wall thickening or intestinal obstruction. No pneumatosis or portal/mesenteric venous gas. Appendix: Normal appendix. Intraperitoneal space: No pneumoperitoneum or abscess. Vasculature: See Stomach and bowel finding. Lymph nodes: Unremarkable. Urinary bladder: Unremarkable as visualized. Reproductive: Unremarkable as visualized. Bones/joints: Unremarkable. No acute fracture. Soft tissues: Unremarkable. IMPRESSION: No acute findings. Thank you for allowing us to participate in the care of your patient. Dictated and Authenticated by: Олег Mondragon MD Quality:SDOH Health Related Social Needs: Health related social needs lonely/isolated Health related social needs details From [facility] Critical Care Time Critical Care Time Critical Care Time: Yes Total Critical Care Time: 45 Attestation: Upon my evaluation, this patient had a high probability of imminent or life-threatening deterioration, which required my direct attention, intervention, and personal management. I have personally provided 45 minutes of critical care time exclusive of time spent on separately billable procedures. Time includes review of laboratory data, radiology results, discussion with consultants, and monitoring for potential decompensation. Interventions were performed as documented. 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 (Acute) Nail dystrophy (Acute) Onychomycosis (Acute) Edema (Acute) Type 2 diabetes mellitus with peripheral neuropathy (Acute) Paresthesias (Acute) Anemia in chronic illness (Acute) Transaminitis (Acute) Obesity (Chronic) Unstageable pressure ulcer of right heel (Acute) Poorly controlled type 2 diabetes mellitus with peripheral neuropathy (Chronic) Low serum iron (Acute) Lumbar back pain with radiculopathy affecting right lower extremity (Acute) Ambulatory dysfunction (Acute) Weakness (Acute) Medical History Follicular disorder, unspecified COVID-19 Vitamin D deficiency, unspecified Unsteadiness on feet Muscle wasting and atrophy, not elsewhere classified, unspecified site Emphysema, unspecified Interstitial pulmonary disease, unspecified Acute pulmonary edema Nausea with vomiting, unspecified Hidradenitis suppurativa Localized edema Tinea unguium Acquired absence of other specified parts of digestive tract Dysphagia, oropharyngeal phase Muscle weakness (generalized) Need for assistance with personal care Primary focal hyperhidrosis, axilla Difficulty in walking, not elsewhere classified Personal history of transient ischemic attack (TIA), and cerebral infarction without residual deficits GERD (gastroesophageal reflux disease) Insomnia Pain HLD (hyperlipidemia) Hemiplegia and hemiparesis following cerebral infarction affecting left non-dominant side Iron deficiency Hemiplegia following cerebrovascular accident (CVA) Pneumonia Constipation Cholecystitis Hypothyroid Gram-negative bacteremia Pleural effusion, left Hyperglycemia due to type 2 diabetes mellitus Urinary tract infection Palliative care patient Physician orders for life-sustaining treatment (POLST) form indicates patient wish for [id number] status ACP (advance care planning) Stroke Diabetes Surgical History S/P cholecystectomy History of ERCP S/P tonsillectomy Family History Mother Cancer Social History Smoking/Tobacco Use Status: Never Smoking risk assessment performed?: Yes Alcohol Intake: never Drug use: Never Substance use type: does not use Housing: longterm What is your relationship status?: Panel score (0-1 are the most socially isolated patients): 0 Do you feel safe at home: Yes Do you feel safe in your relationship?: Yes Additional Social history: PT RESIDES AT [facility]
[2025-02-28] MEDS: AMPICILLIN/SULBACTAM 3 GM in Normal Saline 100 ML IVPB ×3 (01:33→18:04)
[2025-02-28 01:41] LABS: BE (Venous) 7 mmol/L (-2-3); HCO3 (Venous) 31 mmol/L (23-28); O2 Sat (Venous) 79 %; TCO2 (Venous) 28 mmol/L (24-29); pCO2 (Venous) 44 mmHg (41-51); pO2 (Venous) 44 mmHg
[2025-02-28 01:44] LABS: Abs Immature Grans 0.08 10^3/uL (0.0-0.06); HCT 41.4 % (36.0-46.0); HGB 13.0 g/dL (11.2-15.7); Immature Grans % 0.4 %; MCH 24.6 pg (27.0-33.0); MCHC 31.4 % (32.0-36.0); MCV 78 fL (80-95); MPV 9.3 fL (8.0-11.0); Platelet Count 260 10^3/uL (130-400); RBC 5.29 10^6/uL (3.93-5.22); RDW 16.8 % (11.7-14.6); RDW-SD 47.5 fL; WBC 20.10 10^3/uL (4.4-10.8)
[2025-02-28 02:00] LABS: Ammonia 11 umol/L (11-32)
[2025-02-28 02:01] LABS: INR 1.0 (0.9-1.1); PTT Activated 19.5 sec (20.6-30.2); Prothrombin Time 10.4 sec (9.1-11.1)
[2025-02-28 02:15] LABS: ALT 17 U/L (14-59); AST 13 U/L (15-37); Albumin 3.1 g/dL (3.4-5.0); Alkaline Phosphatase 68 U/L (46-116); Anion Gap 8.7 mmol/L (3-11); BUN 28 mg/dL (7-18); Bilirubin, Total 0.5 mg/dL (0.2-1.0); CO2 31.3 mmol/L (21.0-32.0); Calcium 9.4 mg/dL (8.5-10.1); Chloride 98 mmol/L (98-107); Estimated GFR 42.88 (mL/min/1.73m2); Glucose 180 mg/dL (74-106); NT-proBNP 192 pg/mL (<300); Potassium 4.1 mmol/L (3.5-5.1); Sodium 138 mmol/L (136-145); Total Protein 8.1 g/dL (6.4-8.2); Troponin I 7 ng/L (<or=51)
[2025-02-28 02:18] LABS: Procalcitonin 0.23 ng/mL
[2025-02-28] MEDS: VANCOMYCIN 2,000 MG in Normal Saline 500 ML 333.3333 MG IVPB (03:11)
[2025-02-28 03:39] LABS: Troponin I 12 ng/L (<or=51)
--- NOTE | 2025-02-28 03:48 | DI.VRAD_ITS ---
PROCEDURE INFORMATION: Exam: CT Chest Without Contrast; Diagnostic Exam date and time: 02/28/2025 2:43 AM Age: 74 years old Clinical indication: Vomiting and other: Aspiration, altered, vomiting TECHNIQUE: Imaging protocol: Diagnostic computed tomography of the chest without contrast. 3D rendering (Not supervised by radiologist): MIP and/or 3D reconstructed images were created by the technologist. Radiation optimization: All CT scans at this facility use at least one of these dose optimization techniques: automated exposure control; mA and/or kV adjustment per patient size (includes targeted exams where dose is matched to clinical indication); or iterative reconstruction. COMPARISON: CT CHEST/ABD/PEL W 10/15/2024 12:56 PM FINDINGS: Lungs: Expiratory phase imaging with dependent/bibasilar atelectasis; however, even allowing for this, there is dependent basilar bilateral lower lobe aspiration pneumonia. Pleural spaces: Unremarkable. No pneumothorax. No pleural effusion. Heart: Mild cardiomegaly. Esophagus: Esophagus is unremarkable. Lymph nodes: Unremarkable. No enlarged lymph nodes. Vasculature: Thoracic aorta is atherosclerotic but normal caliber. Bones/joints: Unremarkable. No acute fracture. Soft tissues: Unremarkable. IMPRESSION: Expiratory phase imaging with dependent/bibasilar atelectasis; however, even allowing for this, there is dependent basilar bilateral lower lobe aspiration pneumonia. PROCEDURE INFORMATION: Exam: CT Abdomen And Pelvis Without Contrast Exam date and time: 02/28/2025 2:43 AM Age: 74 years old Clinical indication: Vomiting and other: Aspiration, altered, vomiting TECHNIQUE: Imaging protocol: Computed tomography of the abdomen and pelvis without contrast. 3D rendering (Not supervised by radiologist): MIP and/or 3D reconstructed images were created by the technologist. Radiation optimization: All CT scans at this facility use at least one of these dose optimization techniques: automated exposure control; mA and/or kV adjustment per patient size (includes targeted exams where dose is matched to clinical indication); or iterative reconstruction. COMPARISON: CT CHEST/ABD/PEL W 10/15/2024 12:56 PM FINDINGS: Liver: Normal. No mass. Gallbladder and biliary ducts: Prior cholecystectomy. No biliary ductal dilatation. Pancreas: Unremarkable. Spleen: Normal. Adrenal glands: Normal. No mass. Kidneys and ureters: Normal. No hydronephrosis. Stomach and bowel: No bowel wall thickening or intestinal obstruction. No pneumatosis or portal/mesenteric venous gas. Appendix: Normal appendix. Intraperitoneal space: No pneumoperitoneum or abscess. Vasculature: See Stomach and bowel finding. Lymph nodes: Unremarkable. Urinary bladder: Unremarkable as visualized. Reproductive: Unremarkable as visualized. Bones/joints: Unremarkable. No acute fracture. Soft tissues: Unremarkable. IMPRESSION: No acute findings. Dictated and Authenticated by: Олег Mondragon MD. Orderin Rudi Thornton MD
--- NOTE | 2025-02-28 04:17 | W.PM.HP.N ---
Date of service: 02/28/25 Time of Service: 04:17 Assessment and Plan Assessment and plan (1) Acute hypoxemic respiratory failure: Start date: 02/28/25 Status: Acute Assessment and plan: This is a 74-year-old lady status post stroke with minimal ambulation and complete left who aspirated during a left process with her head leaning forward with concerns for aspiration. She did have acute change in delirium and hypoxia and does require BiPAP at this time for treatment of her hypoxemia. The lung findings and imaging is consistent with aspiration. She is not able to tell me whether she has had a swallow evaluation but this should be done. She will be n.p.o. with BiPAP despite some risk with her vomiting and using BiPAP (ED provider weighed risks and benefits and discussion was attempted BiPAP was appropriate). She will be treated for aspiration pneumonia. She is a DNR/DNI. (2) Sepsis: Start date: 02/28/25 Status: Acute Assessment and plan: Patient does meet sepsis criteria and cultures were performed prior to administration of antibiotics. Close monitoring with gentle IV hydration since she is NPO. Treat for reversible problems and attempt to avoid pressor agents. (3) Aspiration pneumonia: Start date: 02/28/25 Status: Acute Assessment and plan: This appears to be a recurrent problem, Unasyn 3 g IV every 6 hours and vancomycin with pharmacy dosing was ordered. Culture were performed prior to initiation of antibiotics. (4) Diabetes: Assessment and plan: Glucometer measurements every 6 hours with coverage as needed. Patient is NPO. (5) CHF (congestive heart failure): Status: Chronic Assessment and plan: Continue outpatient medical therapy despite being n.p.o. with labs stable including creatinine with CKD. I am hesitant to stop diuretics with the patient stable state and hopefully her CHF would not be exacerbated by her aspiration pneumonia. (6) Hypothyroid: Assessment and plan: Check TSH and continue outpatient replacement therapy. Adjustments should be made as outpatient rather than acutely. (7) CKD (chronic kidney disease) stage 3, GFR 30-59 ml/min: Status: Chronic Assessment and plan: This appears stable the patient is at risk for become dehydrated with gentle IV hydration while continuing her CHF treatment. This is being done because of her n.p.o. status. Watch urine output and watch for fluid overload. History of Present Illness History of Present Illness Chief Complaint: Increased confusion from baseline with hypoxia, vomiting/aspiration. Narrative: This is a 74-year-old female patient who has a history of being a full left with a Karly for transfer who has had aspiration in the past and bouts of emesis. She resides at the local skilled nursing and when being lifted with a Karly she was leaning backward when she vomited and became confused with some hypoxia. She was placed on oxygen and EMS brought her to the ED for evaluation. She does have a history of debilitation with obesity and also has a history of aspiration though patient is not able to give history of actual choking. She was answering questions in 1 or 2 words and not appropriately during my interview. Evaluation in the ED did reveal bilateral aspiration infiltrates and patient remained hypoxic and more obtunded requiring BiPAP for hypoxemia. She was in acute hypoxic respiratory failure. She was not retaining CO2. VBG did show lactic acidosis and slight worsening of her CKD though this has been progressive recently. Patient was began on Unasyn and vancomycin was added the patient being in institutions with increased risk. She will be admitted for BiPAP respiratory support. DNR/DNI and treatment of reversible problems. Eventually she should have swallow evaluation at this has not been done. She has a history of CHF and MRSA, diabetes with HHS when dehydrated and has had a previous right CVA which may be debilitating her. She has chronic anemia with her CKD. She is on iron supplement. She does not ambulate normally and does require Karly lift for transfer. As stated, the patient is a DNR/DNI. Review of Systems Narrative: 13 point review of systems otherwise unrevealing or stable per reports from skilled nursing with patient not communicating. 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 (Acute) Nail dystrophy (Acute) Onychomycosis (Acute) Edema (Acute) Type 2 diabetes mellitus with peripheral neuropathy (Acute) Paresthesias (Acute) Anemia in chronic illness (Acute) Transaminitis (Acute) Obesity (Chronic) Unstageable pressure ulcer of right heel (Acute) Poorly controlled type 2 diabetes mellitus with peripheral neuropathy (Chronic) Low serum iron (Acute) Lumbar back pain with radiculopathy affecting right lower extremity (Acute) Ambulatory dysfunction (Acute) Weakness (Acute) Medical History Difficult Love catheter placement Pneumonia Aspiration pneumonia Follicular disorder, unspecified COVID-19 Vitamin D deficiency, unspecified Unsteadiness on feet Muscle wasting and atrophy, not elsewhere classified, unspecified site Emphysema, unspecified Interstitial pulmonary disease, unspecified Acute pulmonary edema Nausea with vomiting, unspecified Hidradenitis suppurativa Localized edema Tinea unguium Acquired absence of other specified parts of digestive tract Dysphagia, oropharyngeal phase Muscle weakness (generalized) Need for assistance with personal care Primary focal hyperhidrosis, axilla Difficulty in walking, not elsewhere classified Personal history of transient ischemic attack (TIA), and cerebral infarction without residual deficits GERD (gastroesophageal reflux disease) Insomnia Pain HLD (hyperlipidemia) Hemiplegia and hemiparesis following cerebral infarction affecting left non-dominant side Iron deficiency Hemiplegia following cerebrovascular accident (CVA) Pneumonia Constipation Cholecystitis Hypothyroid Gram-negative bacteremia Pleural effusion, left Hyperglycemia due to type 2 diabetes mellitus Urinary tract infection Palliative care patient Physician orders for life-sustaining treatment (POLST) form indicates patient wish for [id number]-sogjfiqydqa status ACP (advance care planning) Stroke Diabetes Surgical History S/P cholecystectomy History of ERCP S/P tonsillectomy Family History Mother Cancer Social History Smoking/Tobacco Use Status: Never Smoking risk assessment performed?: Yes Alcohol Intake: never Drug use: Never Substance use type: does not use Housing: skilled nursing What is your relationship status?: Panel score (0-1 are the most socially isolated patients): 0 Do you feel safe at home: Yes Do you feel safe in your relationship?: Yes Additional Social history: PT RESIDES AT THE [facility] Allergies and Home Medications Allergies Allergy/AdvReac Type Severity Reaction Status Date / Time No Known Allergies Allergy Verified 02/28/25 07:46 Home Medications ?Medication ?Instructions ?Recorded ?Confirmed ?Type atorvastatin 40 mg tablet 40 mg PO HS 09/04/23 02/28/25 History acetaminophen 500 mg tablet 1,000 mg (2 x 500 mg) PO TID #60 09/06/23 02/28/25 Rx tabs blood sugar diagnostic (FreeStyle #100 ea 09/06/23 02/28/25 Rx Lite Strips) blood-glucose meter (FreeStyle #1 ea 09/06/23 02/28/25 Rx Lite Meter kit) lancets 28 gauge (FreeStyle #100 ea 09/06/23 02/28/25 Rx Lancets) pantoprazole 40 mg tablet,delayed 40 mg PO DAILY@0730 #10 tabs 09/06/23 02/28/25 Rx release levothyroxine 150 mcg tablet 150 mcg PO HS 10/19/23 02/28/25 History polyethylene glycol 3350 17 17 g PO DAILY 11/29/23 02/28/25 History gram/dose oral powder (ClearLax) benzonatate 100 mg capsule 100 mg PO TID 03/01/24 02/28/25 History magnesium gluconate 27 mg 27 mg PO BID 03/01/24 02/28/25 History magnesium (500 mg) tablet (Mag-G) melatonin 3 mg tablet 3 mg PO HS PRN 03/15/24 02/28/25 History secukinumab 300 mg/2 mL 300 mg subcut .q month 03/15/24 02/28/25 History subcutaneous pen injector (Cosentyx UnoReady Pen) calcium carbonate (Calcium 500) 1,000 mg PO ONCE PRN 03/16/24 02/28/25 History spironolactone 50 mg tablet 50 mg PO DAILY 04/28/24 02/28/25 History albuterol sulfate 90 mcg/actuation 2 puff inhalation Q4H 09/20/24 02/28/25 History aerosol inhaler diclofenac sodium 1 % topical gel 4 g topical .Q8 PRN 09/20/24 02/28/25 History divalproex 250 mg tablet,delayed 750 mg PO BID 09/20/24 02/28/25 History release guaifenesin 100 mg/5 mL oral liquid 200 mg PO Q4H PRN 09/20/24 02/28/25 History insulin glargine 100 unit/mL (3 63 unit subcut BID 09/20/24 02/28/25 History mL) subcutaneous pen (Lantus Solostar U-100 Insulin) ipratropium 0.5 mg-albuterol 3 mg 3 ml inhalation Q6H PRN 09/20/24 02/28/25 History (2.5 mg base)/3 mL nebulization soln montelukast 10 mg tablet 10 mg PO DAILY 09/20/24 02/28/25 History ondansetron HCl 4 mg tablet 4 mg PO Q6H PRN 09/20/24 02/28/25 History dulaglutide 4.5 mg/0.5 mL 4.5 mg subcut QWEEK 10/15/24 02/28/25 History subcutaneous pen injector (Trulicity) empagliflozin 10 mg tablet 10 mg PO DAILY 10/15/24 02/28/25 History (Jardiance) furosemide 40 mg tablet 40 mg PO BID 10/15/24 02/28/25 History psyllium husk 0.4 gram capsule 0.4 g PO DAILY 10/15/24 02/28/25 History (Reguloid (psyllium husk)) budesonide-formoterol HFA 160 2 puff inhalation BID 01/24/25 02/28/25 History mcg-4.5 mcg/actuation aerosol inhaler chlorhexidine gluconate 4 % 1 applic topical DAILY 01/24/25 02/28/25 History topical liquid (Hibiclens) ferrous gluconate 324 mg (37.5 mg 324 mg PO DAILY 01/24/25 02/28/25 History iron) tablet insulin lispro 100 unit/mL 4 unit subcut TID 01/24/25 02/28/25 History subcutaneous pen (Humalog KwikPen (U-100) Insulin) amoxicillin 875 mg-potassium 1 tab PO BID #8 tabs 01/27/25 02/28/25 Rx clavulanate 125 mg tablet doxycycline hyclate 100 mg capsule 100 mg PO BID #8 caps 01/27/25 02/28/25 Rx fluticasone propionate 50 1 spray NS BID #0 grams 01/27/25 02/28/25 Rx mcg/actuation nasal spray,suspension sodium chloride 0.65 % nasal spray See Rx Instructions .Route 01/27/25 02/28/25 Rx aerosol (Saline Nasal Mist) .COMPLEX PRN #44 mL docusate sodium 100 mg capsule 100 mg PO DAILY 02/28/25 02/28/25 History (Colace) insulin lispro 100 unit/mL 1 sliding scale dose subcut 02/28/25 02/28/25 History subcutaneous pen (Humalog KwikPen USEASDIRECTD (U-100) Insulin) morphine 15 mg immediate release 7.5 mg PO BID 02/28/25 02/28/25 History tablet sodium chloride 0.65 % nasal spray 2 spray intranasal BID 02/28/25 02/28/25 History aerosol ([place] Saline) Exam Narrative Exam Narrative: General: Patient appears obtunded,, morbidly obese, opens her eyes but speaks only 1 or 2 words and not always appropriately. She is alert and oriented possibly to self only. She is in no acute distress on BiPAP with minimal conversation. HEENT: Normocephalic, eyes with pupils equal and reactive to light symmetrically, extraocular movement intact and sclera anicteric. No facial droop. Oropharynx with dry mucosa and very poor dentition with mostly missing teeth. Neck: Supple without JVD. Back: Not examined with the patient supine and not movable. Lungs: Coarse crackles diffusely with anterior inspection of lungs with no focalizing. No expiratory wheeze with slight increased expiratory phase. Poor aeration. Breast: Exam deferred. Heart: Distant heart sounds with tachycardia, regular rhythm and no appreciable murmurs or gallops. Abdomen: Large pannus, obese and patient does state that the right abdomen is slightly tender to deep palpation and communicates by holding her hand in that area. There is no guarding or rebound. No palpable hepatosplenomegaly or Forrest sign (patient is status post cholecystectomy and ERCP). Bowel sounds decreased. Positive in all quadrants. Genitalia/rectal: Exam deferred. Patient does have a catheter in place. Skin: Intertriginous rashes without oozing, normal color, warm and dry. No open lesions noted. Extremities: Without clubbing or cyanosis, diffuse nonpitting edema over upper and lower extremities as well as over pannus with dependent side edematous. Fair capillary refill. Neuro: Cranial nerves II through XII grossly intact, patient appears to move all extremities spontaneously but mostly is lying in bed without movement. Extremities are in the normal position. No tremor. Sensory testing not possible. Psych: Delirious though she does have some appropriate responses such as holding her hand over her right abdomen when asked where she was hurting. She is not at her baseline which is having conversation with her daughter. Affect and mood are that of delirium but no abnormal thought processes manifested with minimal conversation.. Memory testing not possible. Results Imaging Imaging Studies: Exam: CT Chest Without Contrast; Diagnostic Exam date and time: 02/28/2025 2:43 AM Age: 74 years old Clinical indication: Vomiting and other: Aspiration, altered, vomiting. COMPARISON: CT CHEST/ABD/PEL W 10/15/2024 12:56 PM FINDINGS: Lungs: Expiratory phase imaging with dependent/bibasilar atelectasis; however, even allowing for this, there is dependent basilar bilateral lower lobe aspiration pneumonia. Pleural spaces: Unremarkable. No pneumothorax. No pleural effusion. Heart: Mild cardiomegaly. Esophagus: Esophagus is unremarkable. Lymph nodes: Unremarkable. No enlarged lymph nodes. Vasculature: Thoracic aorta is atherosclerotic but normal caliber. Bones/joints: Unremarkable. No acute fracture. Soft tissues: Unremarkable. IMPRESSION: Expiratory phase imaging with dependent/bibasilar atelectasis; however, even allowing for this, there is dependent basilar bilateral lower lobe aspiration pneumonia. Exam: CT Abdomen And Pelvis Without Contrast Exam date and time: 02/28/2025 2:43 AM Age: 74 years old Clinical indication: Vomiting and other: Aspiration, altered, vomiting COMPARISON: CT CHEST/ABD/PEL W 10/15/2024 12:56 PM FINDINGS: Liver: Normal. No mass. Gallbladder and biliary ducts: Prior cholecystectomy. No biliary ductal dilatation. Pancreas: Unremarkable. Spleen: Normal. Adrenal glands: Normal. No mass. Kidneys and ureters: Normal. No hydronephrosis. Stomach and bowel: No bowel wall thickening or intestinal obstruction. No pneumatosis or portal/mesenteric venous gas. Appendix: Normal appendix. Intraperitoneal space: No pneumoperitoneum or abscess. Vasculature: See Stomach and bowel finding. Lymph nodes: Unremarkable. Urinary bladder: Unremarkable as visualized. Reproductive: Unremarkable as visualized. Bones/joints: Unremarkable. No acute fracture. Soft tissues: Unremarkable. IMPRESSION: No acute findings. Labs 02/28/25 01:29 02/28/25 01:29 Labs: Laboratory Results - last 24 hr 02/28/25 02/28/25 01:29 03:10 WBC 20.10 H RBC 5.29 H Hgb 13.0 Hct 41.4 MCV 78 L MCH 24.6 L MCHC 31.4 L RDW 16.8 H Plt Count 260 MPV 9.3 Immature Gran % 0.4 Neutrophils % 92.5 Lymphocytes % 2.8 Monocytes % 3.6 Eosinophils % 0.3 Basophils % 0.4 Nucleated RBC % 0.0 Absolute Neutrophils 18.59 H Absolute Lymphocytes 0.56 L Absolute Monocytes 0.72 Absolute Eosinophils 0.06 Absolute Basophils 0.08 PT 10.4 INR 1.0 APTT 19.5 L VBG pH 7.45 H VBG pCO2 44 VBG pO2 44 VBG HCO3 31 H VBG Total CO2 28 VBG O2 Saturation 79 VBG Base Excess 7 H VBG Lactate 2.5 H* Sodium 138 Potassium 4.1 Chloride 98 Carbon Dioxide 31.3 Anion Gap 8.7 BUN 28 H Creatinine 1.3 H Est GFR (CKD-EPI 2020) 42.88 Glucose 180 H Calcium 9.4 Total Bilirubin 0.5 AST 13 L ALT 17 Alkaline Phosphatase 68 Ammonia 11 Troponin I 7 12 NT-Pro-B Natriuret Pep 192 Total Protein 8.1 Albumin 3.1 L Procalcitonin 0.23 ABO/Rh O Positive Antibody Screen NEGATIVE Last Vital Signs Temp 39.7 C H 02/28/25 02:05 Pulse 108 H 02/28/25 03:51 Resp 32 H 02/28/25 03:51 BP 112/58 L 02/28/25 03:51 Pulse Ox 94 02/28/25 03:51 Time Spent Time spent with Patient: >75 minutes Time was spent: preparing to see the patient(eg.review tests), ordering medications,tests, procedures, indepentently interpreting results and care coordination
[2025-02-28 05:02] LABS: Troponin I 16 ng/L (<or=51)
[2025-02-28 05:03] LABS: Glucose >=1000 mg/dL (Negative)
[2025-02-28 05:11] LABS: RBC Negative HPF (0-2)
[2025-02-28 05:19] LABS: COVID-19 PCR Negative (Negative); RSV PCR Negative (Negative)
--- NOTE | 2025-02-28 07:58 | W.PC.ACHO ---
Registration Status: REG ER Primary Language: Preferred Language: ED Information & Data Chief Complaint AMS/LOC 02/28/25 01:43 Chief Complaint AMS/LOC 02/28/25 01:10 [facility] 02/28/25 01:10 felt ill for the last hr, projectile vomit. on 5L NC. 80s good good pleth. potential for aspiration. Medical / Surgical History (Last Reviewed 02/28/25 @ 04:17 by Efraín Hammond) Difficult Love catheter placement Pneumonia Aspiration pneumonia Follicular disorder, unspecified COVID-19 Vitamin D deficiency, unspecified Unsteadiness on feet Muscle wasting and atrophy, not elsewhere classified, unspecified site Emphysema, unspecified Interstitial pulmonary disease, unspecified Acute pulmonary edema Nausea with vomiting, unspecified Hidradenitis suppurativa Localized edema Tinea unguium Acquired absence of other specified parts of digestive tract Dysphagia, oropharyngeal phase Muscle weakness (generalized) Need for assistance with personal care Primary focal hyperhidrosis, axilla Difficulty in walking, not elsewhere classified Personal history of transient ischemic attack (TIA), and cerebral infarction without residual deficits GERD (gastroesophageal reflux disease) Insomnia Pain HLD (hyperlipidemia) Hemiplegia and hemiparesis following cerebral infarction affecting left non-dominant side Iron deficiency Hemiplegia following cerebrovascular accident (CVA) Pneumonia Constipation Cholecystitis Hypothyroid Gram-negative bacteremia Pleural effusion, left Hyperglycemia due to type 2 diabetes mellitus Urinary tract infection Palliative care patient Physician orders for life-sustaining treatment (POLST) form indicates patient wish for [id number] status ACP (advance care planning) Stroke Diabetes (Last Reviewed 02/28/25 @ 04:17 by Efraín Hammond) S/P cholecystectomy History of ERCP S/P tonsillectomy Most Recent Vital Signs Temperature 37.2 C 02/28/25 07:14 Temperature Source Tympanic 02/28/25 07:14 Pulse 102 H 02/28/25 07:40 Pulse 102 H 02/28/25 07:40 Respiratory Rate 31 H 02/28/25 07:40 Respiratory Effort Short of Breath, Labored 02/28/25 02:58 Respiratory Depth Shallow 02/28/25 01:46 Respiratory Pattern Tachypnea 02/28/25 02:58 Blood Pressure 113/60 02/28/25 07:31 Blood Pressure Mean 78 02/28/25 07:31 Blood Pressure Position Sitting 02/28/25 03:51 Pulse Oximetry 93 02/28/25 07:40 Oxygen Delivery Method Cpap 02/28/25 07:14 Oxygen Flow Rate 10 02/28/25 04:41 Fraction of Inspired Oxygen (FIO2) 40 02/28/25 07:15 Pain Level 0 02/28/25 01:10 Comment BiPAP 02/28/25 03:20 Allergies No Known Allergies Allergy (Verified 02/28/25 07:46) Precautions Isolation Standard precaution 02/28/25 01:43 IV IV Catheter Type [Left Peripheral IV Antecubital] IV Catheter Gauge [Left 18 Antecubital] Diagnostics 02/28/25 02/28/25 02/28/25 Range/Units 04:35 04:25 03:10 WBC (4.4-10.8) 10^3/uL RBC (3.93-5.22) 10^6/uL Hgb (11.2-15.7) g/dL Hct (36.0-46.0) % MCV (80-95) fL MCH (27.0-33.0) pg MCHC (32.0-36.0) % RDW (11.7-14.6) % Plt Count (130-400) 10^3/uL MPV (8.0-11.0) fL Immature Gran % % Neutrophils % % Lymphocytes % % Monocytes % % Eosinophils % % Basophils % % Nucleated RBC % (0.0-0.3) % Absolute Neutrophils (1.2-6.7) 10^3/uL Absolute Lymphocytes (1.2-3.4) 10^3/uL Absolute Monocytes (0.1-0.8) 10^3/uL Absolute Eosinophils (0.0-0.7) 10^3/uL Absolute Basophils (0.0-0.2) 10^3/uL PT (9.1-11.1) sec INR (0.9-1.1) APTT (20.6-30.2) sec VBG pH (7.31-7.41) VBG pCO2 (41-51) mmHg VBG pO2 mmHg VBG HCO3 (23-28) mmol/L VBG Total CO2 (24-29) mmol/L VBG O2 Saturation % VBG Base Excess (-2-3) mmol/L VBG Lactate (<or=2.0) mmol/L Sodium (136-145) mmol/L Potassium (3.5-5.1) mmol/L Chloride (98-107) mmol/L Carbon Dioxide (21.0-32.0) mmol/L Anion Gap (3-11) mmol/L BUN (7-18) mg/dL Creatinine (0.55-1.02) mg/dL Est GFR (CKD-EPI 2020) (mL/min/1.73m2) Glucose (74-106) mg/dL Calcium (8.5-10.1) mg/dL Total Bilirubin (0.2-1.0) mg/dL AST (15-37) U/L ALT (14-59) U/L Alkaline Phosphatase (46-116) U/L Ammonia (11-32) umol/L Troponin I 16 12 (<or=51) ng/L NT-Pro-B Natriuret Pep (<300) pg/mL Total Protein (6.4-8.2) g/dL Albumin (3.4-5.0) g/dL Procalcitonin ng/mL Urine Color Yellow (Yellow) Urine Clarity Clear (Clear) Urine pH 5.5 (5-8) Ur Specific [place] 1.015 (1.005-1.025) Urine Protein Negative (Neg-Trace) mg/dL Urine Ketones Trace H (Negative) mg/dL Urine Blood Negative (Negative) Urine Nitrite Negative (Negative) Urine Bilirubin Negative (Negative) Urine Urobilinogen 0.2 (Up to 0.2) mg/dL Ur Leukocyte Esterase Negative (Negative) Urine RBC Negative (0-2) HPF Urine WBC 5-10 (0-5) HPF Ur Epithelial Cells Few (Negative) HPF Urine Crystals Negative (Negative) HPF Urine Bacteria Few (Negative) HPF Urine Casts Negative (Negative) LPF Urine Mucus Trace (Negative) Ur Culture Indicated? C&S Done As Ordered Urine Glucose >=1000 H (Negative) mg/dL COVID-19 Source SARS-CoV-2 (PCR) (Negative) Influenza Type A (PCR) (Negative) Influenza Type B (PCR) (Negative) RSV (PCR) (Negative) ABO/Rh Antibody Screen 02/28/25 02/28/25 Range/Units 01:30 01:29 WBC 20.10 H (4.4-10.8) 10^3/uL RBC 5.29 H (3.93-5.22) 10^6/uL Hgb 13.0 (11.2-15.7) g/dL Hct 41.4 (36.0-46.0) % MCV 78 L (80-95) fL MCH 24.6 L (27.0-33.0) pg MCHC 31.4 L (32.0-36.0) % RDW 16.8 H (11.7-14.6) % Plt Count 260 (130-400) 10^3/uL MPV 9.3 (8.0-11.0) fL Immature Gran % 0.4 % Neutrophils % 92.5 % Lymphocytes % 2.8 % Monocytes % 3.6 % Eosinophils % 0.3 % Basophils % 0.4 % Nucleated RBC % 0.0 (0.0-0.3) % Absolute Neutrophils 18.59 H (1.2-6.7) 10^3/uL Absolute Lymphocytes 0.56 L (1.2-3.4) 10^3/uL Absolute Monocytes 0.72 (0.1-0.8) 10^3/uL Absolute Eosinophils 0.06 (0.0-0.7) 10^3/uL Absolute Basophils 0.08 (0.0-0.2) 10^3/uL PT 10.4 (9.1-11.1) sec INR 1.0 (0.9-1.1) APTT 19.5 L (20.6-30.2) sec VBG pH 7.45 H (7.31-7.41) VBG pCO2 44 (41-51) mmHg VBG pO2 44 mmHg VBG HCO3 31 H (23-28) mmol/L VBG Total CO2 28 (24-29) mmol/L VBG O2 Saturation 79 % VBG Base Excess 7 H (-2-3) mmol/L VBG Lactate 2.5 H* (<or=2.0) mmol/L Sodium 138 (136-145) mmol/L Potassium 4.1 (3.5-5.1) mmol/L Chloride 98 (98-107) mmol/L Carbon Dioxide 31.3 (21.0-32.0) mmol/L Anion Gap 8.7 (3-11) mmol/L BUN 28 H (7-18) mg/dL Creatinine 1.3 H (0.55-1.02) mg/dL Est GFR (CKD-EPI 2020) 42.88 (mL/min/1.73m2) Glucose 180 H (74-106) mg/dL Calcium 9.4 (8.5-10.1) mg/dL Total Bilirubin 0.5 (0.2-1.0) mg/dL AST 13 L (15-37) U/L ALT 17 (14-59) U/L Alkaline Phosphatase 68 (46-116) U/L Ammonia 11 (11-32) umol/L Troponin I 7 (<or=51) ng/L NT-Pro-B Natriuret Pep 192 (<300) pg/mL Total Protein 8.1 (6.4-8.2) g/dL Albumin 3.1 L (3.4-5.0) g/dL Procalcitonin 0.23 ng/mL Urine Color (Yellow) Urine Clarity (Clear) Urine pH (5-8) Ur Specific [place] (1.005-1.025) Urine Protein (Neg-Trace) mg/dL Urine Ketones (Negative) mg/dL Urine Blood (Negative) Urine Nitrite (Negative) Urine Bilirubin (Negative) Urine Urobilinogen (Up to 0.2) mg/dL Ur Leukocyte Esterase (Negative) Urine RBC (0-2) HPF Urine WBC (0-5) HPF Ur Epithelial Cells (Negative) HPF Urine Crystals (Negative) HPF Urine Bacteria (Negative) HPF Urine Casts (Negative) LPF Urine Mucus (Negative) Ur Culture Indicated? Urine Glucose (Negative) mg/dL COVID-19 Source Nasopharynx SARS-CoV-2 (PCR) Negative (Negative) Influenza Type A (PCR) Negative (Negative) Influenza Type B (PCR) Negative (Negative) RSV (PCR) Negative (Negative) ABO/Rh O Positive Antibody Screen NEGATIVE 02/28/25 04:25 Urine Culture - Pending Urine - Cath Not Specified 02/28/25 02:18 Blood Culture - Pending Blood 02/28/25 01:29 Blood Culture - Pending Blood Intake and Output - 24 Hour Total 02/28/25 00:38 thru 02/28/25 05:05 Intake Total 600 Output Total 20 Balance 580 Weight 134.6 kg Intake: IV 600 Output: Urine 20 Other: Emesis Description Retching Projectile Falls Risk Assessment History of Falls Previous History 02/28/25 03:27 Contributing Factors Confusion,Unstable, 02/28/25 03:27 Impairments,Incontinence Ambulatory Aids Uses ambulatory device + 02/28/25 03:27 Tubes/Lines With any additional score 02/28/25 03:27 Gait Evaluation W/any additional score 02/28/25 03:27 Cognition Cognitive impairment 02/28/25 03:27 Fall Total Score 112 02/28/25 03:27 Level of Risk Maximum Risk 02/28/25 03:27 Problems (Last Reviewed 02/28/25 @ 04:17 by Efraín Hammond) CKD (chronic kidney disease) stage 3, GFR 30-59 ml/min (Chronic) Sepsis (Acute) Aspiration pneumonia (Acute) Acute hypoxemic respiratory failure (Acute) CHF (congestive heart failure) (Chronic) v v v v v v v v v Sending and/or Receiving Nurses: Please use comment section below to note any information pertinent to the patient hand-off not included above. Information / Comments: Report received from:April Hogan RN emergency room
[2025-02-28] MEDS: Albuterol/Ipratropium 3 ML UPD VIAL UPD ×3 (09:38→19:25)
[2025-02-28] MEDS: Budesonide/Formoterol 160/4.5 6 GM 60 PUFF INH IH ×2 (11:23→19:25)
[2025-02-28] MEDS: Enoxaparin 40 MG/0.4 ML SYR SC (12:07)
[2025-02-28] MEDS: Montelukast 10 MG TAB PO (12:08)
[2025-02-28] MEDS: Spironolactone 50 MG TAB PO (12:08)
[2025-02-28] MEDS: Docusate Sodium 100 MG CAP PO ×2 (12:08→20:38)
[2025-02-28] MEDS: Divalproex 250 MG TABEC 750 MG PO ×2 (12:08→20:36)
[2025-02-28] MEDS: Acetaminophen 500 MG TAB 1000 MG PO ×3 (12:09→20:37)
[2025-02-28] MEDS: Empaglifozin 10 MG TAB PO (12:10)
[2025-02-28] MEDS: Furosemide 40 MG TAB PO ×2 (12:10→20:38)
[2025-02-28] MEDS: Benzonatate 100 MG CAP PO ×2 (12:16→16:16)
[2025-02-28] MEDS: Normal Saline Flush 10 ML SYR IVP ×3 (12:17→20:36)
[2025-02-28 13:45] LABS: Vancomycin, Random 18.4 ug/mL
[2025-02-28 13:54] LABS: INR 1.1 (0.9-1.1); Prothrombin Time 10.7 sec (9.1-11.1); TSH 0.29 uIU/mL (0.36-3.74)
[2025-02-28] MEDS: Ferrous Gluconate 324 MG TAB PO (13:56)
[2025-02-28] MEDS: Magnesium Gluconate 500 MG TAB PO ×2 (14:51→20:37)
[2025-02-28] MEDS: Insulin Aspart 300 UNITS/3 ML PEN SC ×2 (16:13→22:30)
[2025-02-28] MEDS: Atorvastatin 40 MG TAB PO (20:37)
[2025-02-28] MEDS: Levothyroxine 150 MCG TAB PO (20:38)
[2025-02-28] MEDS: VANCOMYCIN/WATER (PEG) 1.25 GM/250 ML BAG IVPB (22:29)
[2025-02-28 23:29] LABS: BE (Venous) 8 mmol/L (-2-3); HCO3 (Venous) 31 mmol/L (23-28); O2 Sat (Venous) 99 %; TCO2 (Venous) 28 mmol/L (24-29); pCO2 (Venous) 41 mmHg (41-51); pO2 (Venous) 97 mmHg
[2025-03-01] VITALS (27 sets, daily range): BP systolic 102–133; BP diastolic 53–72; PULSE 73–109; RESP 19–33; TEMP 36.9–37.7; O2SAT 87–95
[2025-03-01] MEDS: AMPICILLIN/SULBACTAM 3 GM in Normal Saline 100 ML IVPB ×5 (00:21→23:18)
[2025-03-01] MEDS: Normal Saline Flush 10 ML SYR IVP ×3 (00:22→19:53)
[2025-03-01] MEDS: Albuterol/Ipratropium 3 ML UPD VIAL UPD ×4 (01:55→19:42)
[2025-03-01] MEDS: Insulin Aspart 300 UNITS/3 ML PEN SC ×3 (04:11→17:27)
[2025-03-01 06:27] LABS: HCT 37.5 % (36.0-46.0); HGB 11.6 g/dL (11.2-15.7); MCH 25.1 pg (27.0-33.0); MCHC 30.9 % (32.0-36.0); MCV 81 fL (80-95); MPV 9.6 fL (8.0-11.0); Platelet Count 251 10^3/uL (130-400); RBC 4.63 10^6/uL (3.93-5.22); RDW 17.2 % (11.7-14.6); RDW-SD 50.0 fL
[2025-03-01 06:36] LABS: WBC 30.54 10^3/uL (4.4-10.8)
[2025-03-01 06:51] LABS: ALT 11 U/L (14-59); AST 13 U/L (15-37); Albumin 2.4 g/dL (3.4-5.0); Alkaline Phosphatase 78 U/L (46-116); Anion Gap 6.5 mmol/L (3-11); BUN 28 mg/dL (7-18); Bilirubin, Total 0.6 mg/dL (0.2-1.0); CO2 32.5 mmol/L (21.0-32.0); Calcium 9.1 mg/dL (8.5-10.1); Chloride 105 mmol/L (98-107); Estimated GFR 42.88 (mL/min/1.73m2); Glucose 146 mg/dL (74-106); Magnesium 2.3 mg/dL (1.8-2.4); Potassium 3.6 mmol/L (3.5-5.1); Sodium 144 mmol/L (136-145); Total Protein 7.3 g/dL (6.4-8.2)
[2025-03-01 07:10] LABS: Vancomycin, Random 22.0 ug/mL
[2025-03-01] MEDS: Budesonide/Formoterol 160/4.5 6 GM 60 PUFF INH IH ×2 (08:26→19:43)
[2025-03-01] MEDS: Enoxaparin 40 MG/0.4 ML SYR SC (08:26)
[2025-03-01] MEDS: Magnesium Gluconate 500 MG TAB PO ×3 (08:26→20:14)
[2025-03-01] MEDS: Furosemide 40 MG TAB PO ×2 (08:27→20:05)
[2025-03-01] MEDS: Pantoprazole 40 MG TABCR PO (08:27)
[2025-03-01] MEDS: Spironolactone 50 MG TAB PO (08:27)
[2025-03-01] MEDS: Montelukast 10 MG TAB PO (08:27)
[2025-03-01] MEDS: Ferrous Gluconate 324 MG TAB PO (08:27)
[2025-03-01] MEDS: Empaglifozin 10 MG TAB PO (08:27)
[2025-03-01] MEDS: Acetaminophen 500 MG TAB 1000 MG PO ×3 (08:27→21:12)
[2025-03-01] MEDS: Benzonatate 100 MG CAP PO ×3 (08:28→20:06)
--- NOTE | 2025-03-01 08:28 | PDOC.CMIN ---
Date of service: 03/01/25 Time of Service: 08:29 Care Management Initial Assmt Initial Assessment Reason for Hospitalization: Acute hypoxic respiratory failure, aspiration pneumonia Functional Status/Living Situation Patient Presentation: Nilam was awake and lying in bed watching Wheel of Fortune when CM met with her. She frequently develops aspiration pneumonia and is being closely monitored and treated in the ICU for acute hypoxemic respiratory failure. She is on Bi-pap, and reports that she is breathing easier now. Nilam's cell phone is sitting on her lap and she's maintaining contact with her children. She is a resident at the [facility] and a Palliative consult is pending for this afternoon. CM will follow. Town of Residence: [facility] in [place] Resides with: Other (SNF) Significant Other/Family: [facility] Employment Status: Retired Instrumental Activities of Daily Living (ADLs): Requires support Medications Medication Management: No Issues/Barriers identified Physical Functioning/Mobility Assistive Device: Walker Advance Directives Advance Directives: Do you have an Advance Directive: N 09/04/23, 11:35 AD On File at [facility]: N 09/04/23, 11:35 Date Asked 02/28/25 02/28/25, 08:14 AD Date Reviewed COLST On File at [facility] Yes 11/29/23, 03:38 COLST Date Scanned 09/06/23 11/29/23, 03:38 Code Status Resuscitation Status DNR/DNI Insurance Coverage/Financial Issues Insurance: Medicare Medicaid Care Team Visit Care Team Role Provider Type Gio Min MD MD [facility] STAFF PHYSICIAN Nadya Berumen, JAIRO Primary Care Provider NURSE PRACTITIONER Norberto Grijalva DO Emergency Provider [facility] STAFF PHYSICIAN Efraín Hammond Admit Provider NON-[facility] STAFF PHYSICIAN Attending Provider Discharge Potential Discharge Needs: PCP F/U Appt Anticipated Barriers to Discharge: None Identified Patient/Family Education Needs: Review discharge instructions, discuss Ask Me Three Transportation: RCT Plan: Anticipate Nilam will be discharged back to the [facility] when medically stable. She will follow up with her PCP and plan of care and transport via RCT coordinated by CM. CM will follow and continue to support discharge planning efforts. Social Determinants of Health Screening Social Determinants of health last assessed in clinic: 03/01/25 Will the Patient Participate in the Screening?: Yes Do you worry about having a steady place to live?: no Problems where you live: no known problems In the past 12 months, have you had to go without electric, gas, oil or water in your home?: no 1. Within the past 12 months, we worried whether our food would run out before we got money to buy more.: Never true 2. Within the past 12 months, the food we bought just didn't last and we didn't have money to get more.: Never true Has lack of transportation kept you from medical appointments or from doing things needed for daily living?: no Has anyone in your life made you feel unsafe or unsupported?: no How hard is it for you to pay for the very basics like food, housing, medical care, and heating? Would you say it is:: Not hard at all Do you want help finding or keeping work or a job?: I do not need or want help If for any reason you need help with day-to-day activities such as bathing, preparing meals, shopping, managing finances, etc., do you get the help you need?: I get all the help I need How often do you feel lonely or isolated from those around you?: Sometimes Do you speak a language other than Irish at home?: No Does the patient want assistance with any of the above?: No Comments: patient lives at the [facility] Health Related Social Needs Health related social needs: feeling lonely/isolated (Z60.8) Health related social needs details: patient lives at a skilled nursing and participates with activities there. 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 (Acute) Nail dystrophy (Acute) Onychomycosis (Acute) Edema (Acute) Type 2 diabetes mellitus with peripheral neuropathy (Acute) Paresthesias (Acute) Anemia in chronic illness (Acute) Transaminitis (Acute) Obesity (Chronic) Unstageable pressure ulcer of right heel (Acute) Poorly controlled type 2 diabetes mellitus with peripheral neuropathy (Chronic) Low serum iron (Acute) Lumbar back pain with radiculopathy affecting right lower extremity (Acute) Ambulatory dysfunction (Acute) Weakness (Acute) Medical History Difficult Love catheter placement Pneumonia Aspiration pneumonia Follicular disorder, unspecified COVID-19 Vitamin D deficiency, unspecified Unsteadiness on feet Muscle wasting and atrophy, not elsewhere classified, unspecified site Emphysema, unspecified Interstitial pulmonary disease, unspecified Acute pulmonary edema Nausea with vomiting, unspecified Hidradenitis suppurativa Localized edema Tinea unguium Acquired absence of other specified parts of digestive tract Dysphagia, oropharyngeal phase Muscle weakness (generalized) Need for assistance with personal care Primary focal hyperhidrosis, axilla Difficulty in walking, not elsewhere classified Personal history of transient ischemic attack (TIA), and cerebral infarction without residual deficits GERD (gastroesophageal reflux disease) Insomnia Pain HLD (hyperlipidemia) Hemiplegia and hemiparesis following cerebral infarction affecting left non-dominant side Iron deficiency Hemiplegia following cerebrovascular accident (CVA) Pneumonia Constipation Cholecystitis Hypothyroid Gram-negative bacteremia Pleural effusion, left Hyperglycemia due to type 2 diabetes mellitus Urinary tract infection Palliative care patient Physician orders for life-sustaining treatment (POLST) form indicates patient wish for [id number] status ACP (advance care planning) Stroke Diabetes Surgical History S/P cholecystectomy History of ERCP S/P tonsillectomy Family History Mother Cancer Social History Smoking/Tobacco Use Status: Never Smoking risk assessment performed?: Yes Alcohol Intake: never Drug use: Never Substance use type: does not use Housing: skilled nursing What is your relationship status?: Panel score (0-1 are the most socially isolated patients): 0 Do you feel safe at home: Yes Do you feel safe in your relationship?: Yes Additional Social history: PT RESIDES AT [facility]
--- NOTE | 2025-03-01 15:26 | PCNE_ITS ---
Date of service: 03/01/25 Time of Service: 15:26 History of Present Illness Narrative: Nilam is currently admitted to [facility] for aspiration PNA with sepsis. A referral was placed for Palliative care to discuss GOC in the setting of end- stage COPD with increasing ED visits. She has been seen in the ED 8x over the last year. This is her second admission in the last month for sepsis due to aspiration PNA. She has been seen at the [facility] by Anamika Hampton NP. She was seen in her ICU room with 2 family members present. She has previously established that she is a DNR/DNI and has a COLST on file. Reviewed GOC. Reviewed the increasing number of ED visits and that this often indicates overall decline. Reviewed the option of DNT, however, she is not ready to make this change yet. Her family does not feel that she is getting adequate care at the [facility] and thus feels it is important for her to be sent to the ED if needed. They focused a lot of energy during the meeting on this topic. They do not have any plans to attempt to move her at this point. Reviewed the option of focusing on comfort and treating her at the [facility], however, she wishes to continue to pursue treatment at the hospital as needed. She is not ready to transition to comfort care. She will benefit from ongoing conversations with Palliative care at the [facility]. She is agreeable to this. Assessment and Plan Assessment and plan (1) Acute hypoxemic respiratory failure: Start date: 02/28/25 Status: Resolved Assessment and plan: Multiple hospitalizations for aspiration. She has had 8 ED visits in the last year. This event presented with slumping forward, delirium, hypoxia She is not on oxygen at baseline. She has inhalers but does not know if she uses them. Here she is intermittently on cpap Mental status is improving (2) Sepsis: Start date: 02/28/25 Status: Resolved Assessment and plan: Sepsis criteria met on arrival, no longer septic (3) Aspiration pneumonia: Start date: 02/28/25 Status: Acute Assessment and plan: On unasyn and vancomycin Cx pending. ST consulted. (4) Diabetes: (5) CHF (congestive heart failure): Status: Chronic (6) Hypothyroid: (7) CKD (chronic kidney disease) stage 3, GFR 30-59 ml/min: Status: Chronic (8) Palliative care patient: (9) Physician orders for life-sustaining treatment (POLST) form indicates patient wish for [id number] status: Assessment and plan: DNR/DNI wth COLST on file. (10) ACP (advance care planning): Assessment and plan: She has previously established that she is a DNR/DNI and has a COLST on file. Reviewed GOC. Reviewed the increasing number of ED visits and that this often indicates overall decline. Reviewed the option of DNT, however, she is not ready to make this change yet. Her family does not feel that she is getting adequate care at the [facility] and thus feels it is important for her to be sent to the ED if needed. They focused a lot of energy during the meeting on this topic. They do not have any plans to attempt to move her at this point. Reviewed the option of focusing on comfort and treating her at the [facility], however, she wishes to continue to pursue treatment at the hospital as needed. She is not ready to transition to comfort care. She was very tired and did not wish to continue to discuss. She will benefit from ongoing conversations with Palliative care at the [facility]. She is agreeable to this. F/u either in patient or after discharge back to the [facility]. Review of Systems Narrative: She reports that she is feeling better, still not back to baseline. Her breathing is better. She has not been allowed to eat yet, she would like to. ST is seeing her. 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 (Acute) Nail dystrophy (Acute) Onychomycosis (Acute) Edema (Acute) Type 2 diabetes mellitus with peripheral neuropathy (Acute) Paresthesias (Acute) Anemia in chronic illness (Acute) Transaminitis (Acute) Obesity (Chronic) Unstageable pressure ulcer of right heel (Acute) Poorly controlled type 2 diabetes mellitus with peripheral neuropathy (Chronic) Low serum iron (Acute) Lumbar back pain with radiculopathy affecting right lower extremity (Acute) Ambulatory dysfunction (Acute) Weakness (Acute) Medical History Bacteriuria, asymptomatic Difficult Love catheter placement Pneumonia Aspiration pneumonia Follicular disorder, unspecified COVID-19 Vitamin D deficiency, unspecified Unsteadiness on feet Muscle wasting and atrophy, not elsewhere classified, unspecified site Emphysema, unspecified Interstitial pulmonary disease, unspecified Acute pulmonary edema Nausea with vomiting, unspecified Hidradenitis suppurativa Localized edema Tinea unguium Acquired absence of other specified parts of digestive tract Dysphagia, oropharyngeal phase Muscle weakness (generalized) Need for assistance with personal care Primary focal hyperhidrosis, axilla Difficulty in walking, not elsewhere classified Personal history of transient ischemic attack (TIA), and cerebral infarction without residual deficits GERD (gastroesophageal reflux disease) Insomnia Pain HLD (hyperlipidemia) Hemiplegia and hemiparesis following cerebral infarction affecting left non- dominant side Iron deficiency Hemiplegia following cerebrovascular accident (CVA) Pneumonia Constipation Cholecystitis Hypothyroid Gram-negative bacteremia Pleural effusion, left Hyperglycemia due to type 2 diabetes mellitus Urinary tract infection Palliative care patient Physician orders for life-sustaining treatment (POLST) form indicates patient wish for [id number] status ACP (advance care planning) Stroke Diabetes Surgical History S/P cholecystectomy History of ERCP S/P tonsillectomy Family History Mother Cancer Social History Smoking/Tobacco Use Status: Never Smoking risk assessment performed?: Yes Alcohol Intake: never Drug use: Never Substance use type: does not use Housing: assisted What is your relationship status?: Panel score (0-1 are the most socially isolated patients): 0 Do you feel safe at home: Yes Do you feel safe in your relationship?: Yes Additional Social history: PT RESIDES AT THE [facility] Exam Narrative Exam Narrative: General: pleasant, overweight, fatigued-appearing female, lying in ICU bed. HEENT: Normocephalic, atraumatic, EOMI, mm dry. Respiratory: wearing O2 via nc, +SOB with talking at times. +cough noted. MSK: voluntary motion x4 Neuro: awake, alert to self, no focal deficits Results Last Vital Signs Temp 36.9 C 03/01/25 04:16 Pulse 94 H 03/01/25 15:23 Resp 30 H 03/01/25 15:23 BP 119/69 03/01/25 12:01 Pulse Ox 95 03/01/25 15:23 Labs 03/04/25 09:15 03/04/25 09:15 Labs: Laboratory Results - last 24 hr 02/28/25 03/01/25 23:25 05:35 WBC 30.54 H* RBC 4.63 Hgb 11.6 Hct 37.5 MCV 81 MCH 25.1 L MCHC 30.9 L RDW 17.2 H Plt Count 251 MPV 9.6 VBG pH 7.49 H VBG pCO2 41 VBG pO2 97 VBG HCO3 31 H VBG Total CO2 28 VBG O2 Saturation 99 VBG Base Excess 8 H Sodium 144 Potassium 3.6 Chloride 105 Carbon Dioxide 32.5 H Anion Gap 6.5 BUN 28 H Creatinine 1.3 H Est GFR (CKD-EPI 2020) 42.88 Glucose 146 H Calcium 9.1 Magnesium 2.3 Total Bilirubin 0.6 AST 13 L ALT 11 L Alkaline Phosphatase 78 Total Protein 7.3 Albumin 2.4 L Random Vancomycin 22.0 Time Spent Time Spent with Patient Time Spent(min): 76
--- NOTE | 2025-03-01 16:46 | STREC_ITS ---
Date of service: 03/01/25 Time of Service: 16:46 Speech Therapy Recommendations Report ST Recommendations: Reason for non-treatment note: Consult received and chart reviewed. This is a 74 y/o F well-known to [employer]NA[employer] OPERATOR service seen 1 month ago for similar concerns. At time consult was placed, hospitalist was not aware of [employer]NA[employer]UX OPERATOR evaluation history. Patient with suspected aspiration pneumonia from vomiting episode at the [facility]. She does also have history of past aspiration with vomiting episodes. MAGNAFLUX OPERATOR performed MBSS in 2023 which found only transient/flash penetration without any aspiration despite intermittent wet cough under fluoroscopy. Patient was judged to be at additional aspiration risk due to deconditioned status and oral impairments, but without suspicion of consistent or frequent prandial aspiration. In recent hospitalization January of 2025 she was noted to have a consistent presentation without significant concern for aspiration risk at baseline but with aspiration precautions recommended in light of respiratory status. Given the above history and discussion with hospitalist and ICU nurse, there are no reported new sx and therefore there is not strong indication to re-evaluate swallow function at this time. Anticipate that as patient is able to wean off of BiPap/CPAP for long enough periods, she will be able to tolerate PO intake with risk mitigation strategies/aspiration precautions as previously recommended below. Plan: MAGNAFLUX OPERATOR evaluation not indicated at this time given current reliance on CPAP and noting the above baseline/case history. Once able to tolerate PO from a respiratory standpoint, ok to implement diet and aspiration precautions over the weekend as below. MAGNAFLUX OPERATOR will check in with nursing next week if patient remains hospitalized to ensure no new needs/concerns arise over the weekend. ---- Diet Recommendations: SOLIDS L6 Soft & Bite Sized LIQUIDS L0 Thin Liquids MEDICATIONS As tolerated, cut or crushed in applesauce or pudding is preferred. OK whole if small. 1:1 supervision and assist for all PO intake; assistance by staff or family RISK MANAGEMENT: HOB upright as tolerated; upright for all PO intake. Maintain upright position at least 30 minutes after meals Oral hygiene BID/2-3x per day Provide verbal and/or visual cues to use recommended strategies Small sips and bites when eating Slow rate of intake Swallow between bites
--- NOTE | 2025-03-01 17:22 | PGE_ITS ---
Date of Service Date of service: 03/01/25 Time of Service: 08:00 Assessment and Plan Assessment and plan (1) Acute hypoxemic respiratory failure: Start date: 02/28/25 Status: Acute Assessment and plan: Multiple hospitalizations for aspiration This event presented with slumping forward, delirium, hypoxia She is not on oxygen at baseline. She has inhalers but does not know if she uses them. Here she is intermittently on cpap or at least 4L oxymizer Mental status is improving Continue duonebs, appreciate respiratory therapy (2) Sepsis: Start date: 02/28/25 Status: Resolved Assessment and plan: Sepsis criteria met on arrival, no longer septic (3) Aspiration pneumonia: Start date: 02/28/25 Status: Acute Assessment and plan: Continue unasyn and vancomycin Monitor cultures (4) Diabetes: Assessment and plan: Patient has been cleared by speech therapy for PO intake Continue correctional on ACHS schedule (5) CHF (congestive heart failure): Status: Chronic Assessment and plan: Continue home regimen including diuretics (6) Hypothyroid: Assessment and plan: Continue home regimen (7) CKD (chronic kidney disease) stage 3, GFR 30-59 ml/min: Status: Chronic Assessment and plan: Monitor renal status on antibiotics Subjective Subjective Interval history since last seen: Ms. Dyer reports feeling a bit better, still feeling some pain with attempts to breathe deeply. She remains on oxygen, alternating between NC6L and cpap. Exam Narrative Exam Narrative: General: This is a pleasant, very fatigued, obese woman in no acute distress on NC6L HEENT: Normocephalic, atraumatic CV: Mild tachycardia, regular rhythm, no murmur Resp: Diminished breath sounds, bibasilar soft rales Abd: obese, NTND MSK: voluntary motion x4 Neuro: awake, alert to self, no focal deficits Objective Last Vital Signs Temp 36.9 C 03/01/25 04:16 Pulse 98 H 03/01/25 16:01 Resp 19 03/01/25 16:01 BP 115/65 03/01/25 16:01 Pulse Ox 93 03/01/25 16:01 Laboratory Results - last 24 hr 02/28/25 03/01/25 23:25 05:35 WBC 30.54 H* RBC 4.63 Hgb 11.6 Hct 37.5 MCV 81 MCH 25.1 L MCHC 30.9 L RDW 17.2 H Plt Count 251 MPV 9.6 VBG pH 7.49 H VBG pCO2 41 VBG pO2 97 VBG HCO3 31 H VBG Total CO2 28 VBG O2 Saturation 99 VBG Base Excess 8 H Sodium 144 Potassium 3.6 Chloride 105 Carbon Dioxide 32.5 H Anion Gap 6.5 BUN 28 H Creatinine 1.3 H Est GFR (CKD-EPI 2020) 42.88 Glucose 146 H Calcium 9.1 Magnesium 2.3 Total Bilirubin 0.6 AST 13 L ALT 11 L Alkaline Phosphatase 78 Total Protein 7.3 Albumin 2.4 L Random Vancomycin 22.0 Time Spent with Patient Time Spent with Patient: 25-34 minutes Time was spent: preparing to see the patient(eg.review tests), obtaining and/or reviewing separately otained hiistory, ordering medications,tests, procedures, referring, communicating with other health hearing care professional, indepentently interpreting results, counseling the patient and care coordination
[2025-03-01] MEDS: Divalproex 250 MG TABEC 750 MG PO (19:54)
[2025-03-01] MEDS: Atorvastatin 40 MG TAB PO (20:06)
[2025-03-01] MEDS: Levothyroxine 150 MCG TAB PO (20:06)
[2025-03-01] MEDS: Fluticasone NASAL SPRAY 16 GM BTL NS (20:13)
[2025-03-01] MEDS: VANCOMYCIN/WATER (PEG) 1.25 GM/250 ML BAG IVPB (21:22)
[2025-03-01] MEDS: Miconazole 2% Topical Powder 85 GM BTL (21:45)
[2025-03-02] VITALS (38 sets, daily range): BP systolic 112–148; BP diastolic 49–83; PULSE 55–102; RESP 17–36; TEMP 36.4–38.2; O2SAT 85–98
[2025-03-02] MEDS: Albuterol/Ipratropium 3 ML UPD VIAL UPD ×4 (01:55→19:46)
[2025-03-02] MEDS: Insulin Aspart 300 UNITS/3 ML PEN SC ×5 (02:22→21:17)
[2025-03-02] MEDS: AMPICILLIN/SULBACTAM 3 GM in Normal Saline 100 ML IVPB ×4 (06:00→23:57)
[2025-03-02] MEDS: Normal Saline Flush 10 ML SYR IVP ×3 (06:00→19:58)
[2025-03-02 06:42] LABS: HCT 37.2 % (36.0-46.0); HGB 11.5 g/dL (11.2-15.7); MCH 25.2 pg (27.0-33.0); MCHC 30.9 % (32.0-36.0); MCV 82 fL (80-95); MPV 10.0 fL (8.0-11.0); Platelet Count 268 10^3/uL (130-400); RBC 4.56 10^6/uL (3.93-5.22); RDW 17.0 % (11.7-14.6); RDW-SD 50.5 fL; WBC 23.71 10^3/uL (4.4-10.8)
[2025-03-02 07:55] LABS: ALT 13 U/L (14-59); AST 13 U/L (15-37); Albumin 2.3 g/dL (3.4-5.0); Alkaline Phosphatase 98 U/L (46-116); Anion Gap 9.3 mmol/L (3-11); BUN 25 mg/dL (7-18); Bilirubin, Total 0.5 mg/dL (0.2-1.0); CO2 31.7 mmol/L (21.0-32.0); Calcium 9.1 mg/dL (8.5-10.1); Chloride 107 mmol/L (98-107); Estimated GFR 42.88 (mL/min/1.73m2); Glucose 211 mg/dL (74-106); Magnesium 2.4 mg/dL (1.8-2.4); Potassium 3.7 mmol/L (3.5-5.1); Sodium 148 mmol/L (136-145); Total Protein 7.7 g/dL (6.4-8.2)
[2025-03-02] MEDS: Budesonide/Formoterol 160/4.5 6 GM 60 PUFF INH IH ×2 (07:56→19:49)
[2025-03-02] MEDS: Normal Saline 1,000 ML 500 ML IV (09:00)
[2025-03-02] MEDS: Albuterol 2.5 MG/3 ML INH SOLN VIAL UPD ×2 (09:04→17:02)
[2025-03-02] MEDS: Enoxaparin 40 MG/0.4 ML SYR SC (09:49)
--- NOTE | 2025-03-02 10:18 | DI.RAD_ITS ---
Exam(s) XR PORTABLE CHEST AP EXAM: XR PORTABLE CHEST AP CLINICAL HISTORY: query effusion/edema, upright if possible please. TECHNIQUE: 2D digital imaging was performed. COMPARISON: CR,XR XR PORTABLE CHEST AP from 01/23/[address] CHEST/ABD/PEL WO from 02/28/2025 FINDINGS: Single AP portable view. Patient is again noted be rotated towards the left. Mild cardiomegaly again noted. Mediastinum unchanged. Bilateral lung base lower lobe infiltrates are again noted, similar to previous and consistent with the significant infiltrate seen in the posterior basal segments of both lower lobes on the recent CT scan of 02/28/2025.. No evidence of pulmonary edema. IMPRESSION: Persistent bilateral lower lobe infiltrates. DATA REPOSITORY: RADIATION DOSE DELIVERED:
--- NOTE | 2025-03-02 11:43 | DI.VRAD_ITS ---
PROCEDURE INFORMATION: Exam: XR Chest Exam date and time: 03/02/2025 10:19 AM Age: 74 years old Clinical indication: Other: Query effusion/edema TECHNIQUE: Imaging protocol: Radiologic exam of the chest. Views: 1 view. COMPARISON: CT CHEST/ABD/PEL WO 02/28/2025 2:43 AM FINDINGS: Lungs: Opacities in the left lower lung have mildly improved. Stable mild opacities in the right lower lung that may represent atelectasis or consolidation. Interstitium is mildly prominent or possible edema. Pleural spaces: Unremarkable. No pleural effusion. No pneumothorax. Heart/Mediastinum: Cardiac silhouette is enlarged. Bones/joints: Unremarkable. IMPRESSION: 1. Interstitium is mildly prominent, possible edema. Stable enlarged cardiac silhouette. No effusion. 2. Left lower lung airspace opacities have mildly improved since prior. 3. Stable mild infiltrate in the right lower lung. Dictated and Authenticated by: Benjamin Rendon MD. Orderin Pako Powers MD
[2025-03-02] MEDS: Acetaminophen 500 MG TAB 1000 MG PO ×2 (13:23→19:57)
[2025-03-02] MEDS: guaiFENesin 200 MG/10 ML CUP PO (13:23)
[2025-03-02] MEDS: Magnesium Gluconate 500 MG TAB PO ×2 (13:23→19:56)
--- NOTE | 2025-03-02 17:28 | PGE_ITS ---
Date of Service Date of service: 03/02/25 Time of Service: 08:00 Assessment and Plan Assessment and plan (1) Acute hypoxemic respiratory failure: Start date: 02/28/25 Status: Acute Assessment and plan: Multiple hospitalizations for aspiration This event presented with slumping forward, delirium, hypoxia She is not on oxygen at baseline. She has inhalers but does not know if she uses them. Here she is intermittently on cpap or at least 4L oxymizer Mental status is improving Continue duonebs, appreciate respiratory therapy Anticipate improvement with antibiotics (2) Sepsis: Start date: 02/28/25 Status: Resolved Assessment and plan: Sepsis criteria met on arrival, no longer septic (3) Aspiration pneumonia: Start date: 02/28/25 Status: Acute Assessment and plan: Continue unasyn and vancomycin Monitor cultures (4) Diabetes: Assessment and plan: Patient has been cleared by speech therapy for PO intake Continue correctional on ACHS schedule (5) CHF (congestive heart failure): Status: Chronic Assessment and plan: Continue home regimen including diuretics (6) Hypothyroid: Assessment and plan: Continue home regimen (7) CKD (chronic kidney disease) stage 3, GFR 30-59 ml/min: Status: Chronic Assessment and plan: Monitor renal status on antibiotics Subjective Subjective Interval history since last seen: Ms. Dyer is comfortable in bed. She has needed cpap again this morning. Exam Narrative Exam Narrative: General: This is a pleasant, very fatigued, obese woman in no acute distress on NC6L HEENT: Normocephalic, atraumatic CV: Mild tachycardia, regular rhythm, no murmur Resp: Diminished breath sounds, bibasilar soft rales Abd: obese, NTND MSK: voluntary motion x4 Neuro: awake, alert to self, no focal deficits Objective Last Vital Signs Temp 38.2 C H 03/02/25 15:25 Pulse 96 H 03/02/25 17:10 Resp 35 H 03/02/25 17:10 BP 133/73 03/02/25 16:01 Pulse Ox 92 03/02/25 16:01 Laboratory Results - last 24 hr 03/02/25 03/02/25 06:00 07:30 WBC 23.71 H RBC 4.56 Hgb 11.5 Hct 37.2 MCV 82 MCH 25.2 L MCHC 30.9 L RDW 17.0 H Plt Count 268 MPV 10.0 Sodium 148 H Potassium 3.7 Chloride 107 Carbon Dioxide 31.7 Anion Gap 9.3 BUN 25 H Creatinine 1.3 H Est GFR (CKD-EPI 2020) 42.88 Glucose 211 H Calcium 9.1 Magnesium 2.4 Total Bilirubin 0.5 AST 13 L ALT 13 L Alkaline Phosphatase 98 Total Protein 7.7 Albumin 2.3 L Time Spent with Patient Time Spent with Patient: 25-34 minutes Time was spent: preparing to see the patient(eg.review tests), obtaining and/or reviewing separately otained hiistory, ordering medications,tests, procedures, referring, communicating with other health restorative care technician, indepentently interpreting results, counseling the patient and care coordination
[2025-03-02] MEDS: MORPHine 2 MG/ML SYR IVP (18:51)
[2025-03-02] MEDS: Divalproex 250 MG TABEC 750 MG PO (19:56)
[2025-03-02] MEDS: Atorvastatin 40 MG TAB PO (19:56)
[2025-03-02] MEDS: Levothyroxine 150 MCG TAB PO (19:56)
[2025-03-02] MEDS: Benzonatate 100 MG CAP PO (19:57)
[2025-03-02] MEDS: Fluticasone NASAL SPRAY 16 GM BTL NS (19:58)
[2025-03-02] MEDS: VANCOMYCIN/WATER (PEG) 1.25 GM/250 ML BAG IVPB (21:44)
[2025-03-03] VITALS (21 sets, daily range): BP systolic 102–134; BP diastolic 49–77; PULSE 71–91; RESP 18–32; TEMP 37.1–37.3; O2SAT 89–95
[2025-03-03] MEDS: Albuterol/Ipratropium 3 ML UPD VIAL UPD ×4 (02:05→19:30)
[2025-03-03] MEDS: AMPICILLIN/SULBACTAM 3 GM in Normal Saline 100 ML IVPB ×3 (06:11→17:20)
[2025-03-03] MEDS: Normal Saline Flush 10 ML SYR IVP ×5 (06:12→21:48)
[2025-03-03 06:39] LABS: HCT 33.5 % (36.0-46.0); HGB 10.1 g/dL (11.2-15.7); MCH 24.8 pg (27.0-33.0); MCHC 30.1 % (32.0-36.0); MCV 82 fL (80-95); MPV 9.8 fL (8.0-11.0); Platelet Count 254 10^3/uL (130-400); RBC 4.07 10^6/uL (3.93-5.22); RDW 16.9 % (11.7-14.6); RDW-SD 51.4 fL; WBC 16.48 10^3/uL (4.4-10.8)
[2025-03-03 07:02] LABS: ALT 16 U/L (14-59); AST 16 U/L (15-37); Albumin 2.1 g/dL (3.4-5.0); Alkaline Phosphatase 130 U/L (46-116); Anion Gap 7.6 mmol/L (3-11); BUN 27 mg/dL (7-18); Bilirubin, Total 0.4 mg/dL (0.2-1.0); CO2 31.4 mmol/L (21.0-32.0); Calcium 8.6 mg/dL (8.5-10.1); Chloride 109 mmol/L (98-107); Estimated GFR 52.40 (mL/min/1.73m2); Glucose 220 mg/dL (74-106); Magnesium 2.5 mg/dL (1.8-2.4); Potassium 3.4 mmol/L (3.5-5.1); Sodium 148 mmol/L (136-145); Total Protein 7.1 g/dL (6.4-8.2)
[2025-03-03] MEDS: Budesonide/Formoterol 160/4.5 6 GM 60 PUFF INH IH ×2 (08:00→19:32)
[2025-03-03] MEDS: MORPHine 2 MG/ML SYR 1 MG IVP (08:24)
[2025-03-03] MEDS: Ferrous Gluconate 324 MG TAB PO (08:25)
[2025-03-03] MEDS: Divalproex 250 MG TABEC 750 MG PO ×2 (08:25→21:47)
[2025-03-03] MEDS: Docusate Sodium 100 MG CAP PO ×2 (08:26→21:47)
[2025-03-03] MEDS: Empaglifozin 10 MG TAB PO (08:26)
[2025-03-03] MEDS: Acetaminophen 500 MG TAB 1000 MG PO ×2 (08:26→21:46)
[2025-03-03] MEDS: Spironolactone 50 MG TAB PO (08:26)
[2025-03-03] MEDS: Montelukast 10 MG TAB PO (08:26)
[2025-03-03] MEDS: Insulin Aspart 300 UNITS/3 ML PEN SC ×4 (08:26→21:49)
[2025-03-03] MEDS: Psyllium PKT 1 EACH PO (08:26)
[2025-03-03] MEDS: Magnesium Gluconate 500 MG TAB PO ×2 (08:26→13:22)
[2025-03-03] MEDS: Pantoprazole 40 MG TABCR PO (08:26)
[2025-03-03] MEDS: Enoxaparin 40 MG/0.4 ML SYR SC (08:27)
--- NOTE | 2025-03-03 09:20 | NUR.NOTE ---
Access chart to reconcile EKG orders with EKG's in [facility]. Nursing Note:
[2025-03-03] MEDS: guaiFENesin 200 MG/10 ML CUP PO (11:31)
--- NOTE | 2025-03-03 15:25 | W.PC.ACHO ---
Registration Status: ADM IN Primary Language: Preferred Language: ED Information & Data Chief Complaint AMS/LOC 02/28/25 01:43 Chief Complaint AMS/LOC 02/28/25 01:10 [facility] 02/28/25 01:10 felt ill for the last hr, projectile vomit. on 5L NC. 80s good good pleth. potential for aspiration. Medical / Surgical History (Last Reviewed 02/28/25 @ 04:17 by Efraín Hammond) Difficult Love catheter placement Pneumonia Aspiration pneumonia Follicular disorder, unspecified COVID-19 Vitamin D deficiency, unspecified Unsteadiness on feet Muscle wasting and atrophy, not elsewhere classified, unspecified site Emphysema, unspecified Interstitial pulmonary disease, unspecified Acute pulmonary edema Nausea with vomiting, unspecified Hidradenitis suppurativa Localized edema Tinea unguium Acquired absence of other specified parts of digestive tract Dysphagia, oropharyngeal phase Muscle weakness (generalized) Need for assistance with personal care Primary focal hyperhidrosis, axilla Difficulty in walking, not elsewhere classified Personal history of transient ischemic attack (TIA), and cerebral infarction without residual deficits GERD (gastroesophageal reflux disease) Insomnia Pain HLD (hyperlipidemia) Hemiplegia and hemiparesis following cerebral infarction affecting left non-dominant side Iron deficiency Hemiplegia following cerebrovascular accident (CVA) Pneumonia Constipation Cholecystitis Hypothyroid Gram-negative bacteremia Pleural effusion, left Hyperglycemia due to type 2 diabetes mellitus Urinary tract infection Palliative care patient Physician orders for life-sustaining treatment (POLST) form indicates patient wish for [id number] status ACP (advance care planning) Stroke Diabetes (Last Reviewed 02/28/25 @ 04:17 by Efraín Hammond) S/P cholecystectomy History of ERCP S/P tonsillectomy Most Recent Vital Signs Temperature 37.3 C 03/03/25 15:22 Temperature Source Temporal Artery Scan 03/03/25 15:22 Pulse 83 03/03/25 15:22 Pulse 74 03/03/25 12:01 Respiratory Rate 18 03/03/25 15:22 Respiratory Effort Short of Breath 02/28/25 08:20 Respiratory Depth Shallow 02/28/25 08:20 Respiratory Pattern Tachypnea 02/28/25 08:20 Blood Pressure 108/61 03/03/25 15:22 Blood Pressure Mean 76 03/03/25 15:22 Blood Pressure Position Sitting 02/28/25 03:51 Pulse Oximetry 92 03/03/25 15:22 Oxygen Delivery Method Nasal Cannula 03/03/25 15:22 Oxygen Flow Rate 4 03/03/25 15:22 Fraction of Inspired Oxygen (FIO2) 30 03/03/25 01:36 Pain Level 0 03/03/25 15:22 Comment BiPAP 02/28/25 03:20 Allergies No Known Allergies Allergy (Verified 02/28/25 07:46) Precautions Isolation Standard precaution 02/28/25 01:43 Active Medications Generic Name Dose Route Start Last Admin Trade Name Freq PRN Reason Stop Dose Admin Acetaminophen 1,000 mg 02/28/25 08:30 03/03/25 13:22 Acetaminophen 500 Mg Tab PO Not Given TID BRENDA Albuterol Sulfate 2.5 mg 02/28/25 08:38 03/02/25 17:02 Albuterol 2.5 Mg/3 Ml Inh Soln Vial UPD 2.5 mg Q2H PRN PRN Administration Albuterol/Ipratropium 3 ml 02/28/25 08:30 03/03/25 14:35 Albuterol/Ipratropium 3 Ml Upd Vial UPD 3 ml Q6H BRENDA Administration Atorvastatin Calcium 40 mg 02/28/25 20:00 03/02/25 19:56 Atorvastatin 40 Mg Tab PO 40 mg HS BRENDA Administration Benzonatate 100 mg 02/28/25 16:00 03/03/25 13:23 Benzonatate 100 Mg Cap PO Not Given TID BRENDA Budesonide/Formoterol Fumarate 2 puff 02/28/25 08:30 03/03/25 08:00 Budesonide/Formoterol 160/4.5 6 Gm 60 Puff Inh IH 2 puffs BID BRENDA Administration Chlorhexidine Gluconate 0 ml 02/28/25 08:30 03/03/25 08:54 Chlorhexidine 4% 15 Ml Pkt TP Not Given DAILY BRENDA Divalproex Sodium 750 mg 02/28/25 08:30 03/03/25 08:25 Divalproex 250 Mg Tabec PO 750 mg BID BRENDA Administration Docusate Sodium 100 mg 02/28/25 08:30 03/03/25 08:26 Docusate Sodium 100 Mg Cap PO 100 mg BID BRENDA Administration Empagliflozin 10 mg 02/28/25 08:30 03/03/25 08:26 Empaglifozin 10 Mg Tab PO 10 mg DAILY BRENDA Administration Enoxaparin Sodium 40 mg 02/28/25 08:30 03/03/25 08:27 Enoxaparin 40 Mg/0.4 Ml Syr SC 40 mg DAILY BRENDA Administration Ferrous Gluconate 324 mg 02/28/25 12:00 03/03/25 08:25 Ferrous Gluconate 324 Mg Tab PO 324 mg DAILY BRENDA Administration Fluticasone Propionate 0 gm 02/28/25 20:00 03/03/25 08:54 Fluticasone Nasal [place] 16 Gm Btl NS Not Given BID BRENDA Guaifenesin 200 mg 02/28/25 08:38 03/03/25 11:31 Guaifenesin 200 Mg/10 Ml Cup PO 200 mg Q4H PRN PRN Administration Ampicillin Sodium/Sulbactam 100 mls @ 200 mls/hr 02/28/25 12:00 03/03/25 12:15 Sodium 3 gm/ Sodium Chloride IVPB Infused Q6H [facility] Infusion Vancomycin/PEG/NADA/Lysine/Water 1.25 gm in 250 mls @ 250 mls/hr 02/28/25 22:00 03/03/25 00:18 Vancocin Injection IVPB Infused Q24H BRENDA Infusion Insulin Aspart 0 units 03/02/25 16:30 03/03/25 11:59 Insulin Aspart 300 Units/3 Ml Pen SC 6 units AC & HS BRENDA Administration Protocol Levothyroxine Sodium 150 mcg 02/28/25 20:00 03/02/25 19:56 Levothyroxine 150 Mcg Tab PO 150 mcg HS BRENDA Administration Magnesium Gluconate 500 mg 02/28/25 14:00 03/03/25 13:22 Magnesium Gluconate 500 Mg Tab PO 500 mg TID BRENDA Administration Montelukast Sodium 10 mg 02/28/25 08:30 03/03/25 08:26 Montelukast 10 Mg Tab PO 10 mg DAILY BRENDA Administration Morphine Sulfate 1 mg 03/02/25 18:37 03/03/25 08:24 Morphine 2 Mg/Ml Syr IVP 1 mg Q4H PRN PRN Administration Pantoprazole Sodium 40 mg 02/28/25 07:30 03/03/25 08:26 Pantoprazole 40 Mg Tabcr PO 40 mg DAILY@0730 BREDNA Administration Polyethylene Glycol 17 gm 02/28/25 08:30 03/03/25 08:54 Polyethylene Glycol 3350 17 Gm Packet PO Not Given DAILY BRENDA Psyllium Hydrophilic Mucilloid 1 each 02/28/25 12:00 03/03/25 08:26 Psyllium Pkt PO 1 each DAILY BRENDA Administration Sodium Chloride 0 ml 02/28/25 08:38 03/03/25 06:12 Normal Saline Flush 10 Ml Syr IVP 30 ml PRN PRN Administration Sodium Chloride 0 ml 02/28/25 08:30 03/03/25 08:27 Normal Saline Flush 10 Ml Syr IVP 20 ml BID BRENDA Administration Spironolactone 50 mg 02/28/25 08:30 03/03/25 08:26 Spironolactone 50 Mg Tab PO 50 mg DAILY BRENDA Administration IV IV Catheter Type [Left Saline Lock Antecubital] IV Catheter Gauge [Left 20 Antecubital] Diagnostics 03/03/25 Range/Units 05:48 WBC 16.48 H (4.4-10.8) 10^3/uL RBC 4.07 (3.93-5.22) 10^6/uL Hgb 10.1 L (11.2-15.7) g/dL Hct 33.5 L (36.0-46.0) % MCV 82 (80-95) fL MCH 24.8 L (27.0-33.0) pg MCHC 30.1 L (32.0-36.0) % RDW 16.9 H (11.7-14.6) % Plt Count 254 (130-400) 10^3/uL MPV 9.8 (8.0-11.0) fL Sodium 148 H (136-145) mmol/L Potassium 3.4 L (3.5-5.1) mmol/L Chloride 109 H (98-107) mmol/L Carbon Dioxide 31.4 (21.0-32.0) mmol/L Anion Gap 7.6 (3-11) mmol/L BUN 27 H (7-18) mg/dL Creatinine 1.1 H (0.55-1.02) mg/dL Est GFR (CKD-EPI 2020) 52.40 (mL/min/1.73m2) Glucose 220 H (74-106) mg/dL Calcium 8.6 (8.5-10.1) mg/dL Magnesium 2.5 H (1.8-2.4) mg/dL Total Bilirubin 0.4 (0.2-1.0) mg/dL AST 16 (15-37) U/L ALT 16 (14-59) U/L Alkaline Phosphatase 130 H (46-116) U/L Total Protein 7.1 (6.4-8.2) g/dL Albumin 2.1 L (3.4-5.0) g/dL 02/28/25 04:25 Urine Culture - Final Urine - Cath Not Specified Morganella morgani ssp morgani Gram positive hernando, mixed 02/28/25 02:18 Blood Culture - Preliminary Blood NO GROWTH 72 HOURS 02/28/25 01:29 Blood Culture - Preliminary Blood NO GROWTH 72 HOURS [id number] Documentation Fingerstick Glucose Start: 02/28/25 08:38 Freq: AC & HS Status: Active Protocol: Activity Type Activity Date Activity User E-sign Co-sign Detail Recorded Client Recorded Date Recorded By Document 03/03/25 11:38 JUAN DANIEL DAEMON(3) [id number] 03/03/25 11:40 BKG DAEMON(4) Intake and Output - 24 Hour Total 02/28/25 00:38 thru 03/03/25 12:40 Intake Total 8022.0 Output Total 4760 Balance 3262.0 Weight 107.9 kg Intake: IV 3740.0 Oral 4282 Output: Urine 4760 Other: Urine Color Yellow Urine Appearance Clear Comment purewick changed at 0600 Stool Size Small Stool Characteristics Mucoid Brown Emesis Description Retching Projectile Falls Risk Assessment History of Falls Previous History 02/28/25 08:20 Contributing Factors Incontinence 02/28/25 08:20 Ambulatory Aids Uses ambulatory device + 02/28/25 08:20 Tubes/Lines W/no contributing factors 02/28/25 08:20 Gait Evaluation W/any additional score 02/28/25 08:20 Cognition Cognitive impairment 02/28/25 08:20 Fall Total Score 93 02/28/25 08:20 Level of Risk Maximum Risk 02/28/25 08:20 Problems (Last Reviewed 02/28/25 @ 04:17 by Efraín Hammond) CKD (chronic kidney disease) stage 3, GFR 30-59 ml/min (Chronic) Aspiration pneumonia (Acute) Acute hypoxemic respiratory failure (Acute) CHF (congestive heart failure) (Chronic) Notes 03/03/25 09:20 Nursing Notes by Shauna Chauhan Access chart to reconcile EKG orders with EKG's in [facility]. Nursing Note: Initialized on 03/03/25 09:20 - END OF NOTE v v v v v v v v v Sending and/or Receiving Nurses: Please use comment section below to note any information pertinent to the patient hand-off not included above. Information / Comments: Report received, all questions answered. Pt transferring to room 217 Report received from: Report received from Carolina Simeon @ [id number]
[2025-03-03] MEDS: Levothyroxine 150 MCG TAB PO (21:45)
[2025-03-03] MEDS: Atorvastatin 40 MG TAB PO (21:47)
[2025-03-03] MEDS: Benzonatate 100 MG CAP PO (21:47)
[2025-03-03] MEDS: VANCOMYCIN/WATER (PEG) 1.25 GM/250 ML BAG IVPB (21:49)
[2025-03-03] MEDS: Fluticasone NASAL SPRAY 16 GM BTL NS (21:51)
--- NOTE | 2025-03-03 22:59 | W.PM.PROGNOT ---
Date of Service Date of service: 03/03/25 Time of Service: 08:00 Assessment and Plan Assessment and plan (1) Acute hypoxemic respiratory failure: Start date: 02/28/25 Status: Acute Assessment and plan: Multiple hospitalizations for aspiration This event presented with slumping forward, delirium, hypoxia She is not on oxygen at baseline. She has inhalers but does not know if she uses them. Here she is intermittently on cpap or at least 4L oxymizer Mental status is improving Continue duonebs, appreciate respiratory therapy Anticipate improvement with antibiotics (2) Sepsis: Start date: 02/28/25 Status: Resolved Assessment and plan: Sepsis criteria met on arrival, no longer septic (3) Aspiration pneumonia: Start date: 02/28/25 Status: Acute Assessment and plan: Continue unasyn and vancomycin Monitor cultures (4) Bacteriuria, asymptomatic: Status: Acute Assessment and plan: Feb 28 Urine culture with 50-100k CFU M morganii sensitive to unasyn Likely colonization, covered with unasyn (5) Diabetes: Assessment and plan: Patient has been cleared by speech therapy for PO intake Continue correctional on ACHS schedule (6) CHF (congestive heart failure): Status: Chronic Assessment and plan: Continue home regimen including diuretics (7) Hypothyroid: Assessment and plan: Continue home regimen (8) CKD (chronic kidney disease) stage 3, GFR 30-59 ml/min: Status: Chronic Assessment and plan: Monitor renal status on antibiotics Subjective Subjective Interval history since last seen: Ms. Dyer is on lower bipap settings and is needing less O2 during the day. She is having some difficulty with liquids and will be changed to mildly thickened liquids, no straws. Exam Narrative Exam Narrative: General: This is a pleasant, very fatigued, obese woman in no acute distress on NC6L HEENT: Normocephalic, atraumatic CV: Mild tachycardia, regular rhythm, no murmur Resp: Diminished breath sounds, bibasilar soft rales Abd: obese, NTND MSK: voluntary motion x4 Neuro: awake, alert to self, no focal deficits Objective Last Vital Signs Temp 37.1 C 03/03/25 21:50 Pulse 76 03/03/25 21:50 Resp 20 03/03/25 21:50 BP 102/49 L 03/03/25 21:50 Pulse Ox 91 L 03/03/25 21:50 Laboratory Results - last 24 hr 03/03/25 05:48 WBC 16.48 H RBC 4.07 Hgb 10.1 L Hct 33.5 L MCV 82 MCH 24.8 L MCHC 30.1 L RDW 16.9 H Plt Count 254 MPV 9.8 Sodium 148 H Potassium 3.4 L Chloride 109 H Carbon Dioxide 31.4 Anion Gap 7.6 BUN 27 H Creatinine 1.1 H Est GFR (CKD-EPI 2020) 52.40 Glucose 220 H Calcium 8.6 Magnesium 2.5 H Total Bilirubin 0.4 AST 16 ALT 16 Alkaline Phosphatase 130 H Total Protein 7.1 Albumin 2.1 L Time Spent with Patient Time Spent with Patient: 25-34 minutes Time was spent: preparing to see the patient(eg.review tests), obtaining and/or reviewing separately otained hiistory, ordering medications,tests, procedures, referring, communicating with other health director of patient care, indepentently interpreting results, counseling the patient and care coordination
[2025-03-04] VITALS (13 sets, daily range): BP systolic 105–120; BP diastolic 57–65; PULSE 61–76; RESP 17–20; TEMP 36.4–36.8; O2SAT 89–94
[2025-03-04] MEDS: AMPICILLIN/SULBACTAM 3 GM in Normal Saline 100 ML IVPB ×5 (00:53→23:58)
[2025-03-04] MEDS: Albuterol/Ipratropium 3 ML UPD VIAL UPD ×4 (01:45→19:48)
[2025-03-04] MEDS: Normal Saline Flush 10 ML SYR IVP ×3 (06:11→20:41)
[2025-03-04] MEDS: Budesonide/Formoterol 160/4.5 6 GM 60 PUFF INH IH ×2 (07:45→19:48)
[2025-03-04] MEDS: Psyllium PKT 1 EACH PO (07:56)
[2025-03-04] MEDS: Insulin Aspart 300 UNITS/3 ML PEN SC ×4 (07:56→22:16)
[2025-03-04] MEDS: Enoxaparin 40 MG/0.4 ML SYR SC (07:57)
[2025-03-04] MEDS: Polyethylene Glycol 3350 17 GM PACKET PO (07:57)
[2025-03-04] MEDS: Fluticasone NASAL SPRAY 16 GM BTL NS ×2 (07:57→22:15)
[2025-03-04] MEDS: Docusate Sodium 100 MG CAP PO ×2 (07:58→20:36)
[2025-03-04] MEDS: Magnesium Gluconate 500 MG TAB PO ×3 (07:58→20:36)
[2025-03-04] MEDS: Montelukast 10 MG TAB PO (07:58)
[2025-03-04] MEDS: Benzonatate 100 MG CAP PO ×3 (07:58→20:37)
[2025-03-04] MEDS: Acetaminophen 500 MG TAB 1000 MG PO ×2 (07:58→13:59)
[2025-03-04] MEDS: Ferrous Gluconate 324 MG TAB PO (07:58)
[2025-03-04] MEDS: Pantoprazole 40 MG TABCR PO (07:58)
[2025-03-04] MEDS: Spironolactone 50 MG TAB PO (07:58)
[2025-03-04] MEDS: Empaglifozin 10 MG TAB PO (07:58)
[2025-03-04] MEDS: Divalproex 250 MG TABEC 750 MG PO ×2 (07:58→20:36)
--- NOTE | 2025-03-04 08:52 | W.SPSTE ---
Date of service: 03/04/25 Time of Service: 08:15 Subjective Clinical (Bedside) Swallow Evaluation Speech Language Pathology Referred by: Gio Min Referral Type: Clinical Swallow Evaluation Reason for Referral/HPI: Nilam Dyer is a 74 yo female adm with suspected aspiration pneumonia. Of notice Nilam has had recurrent admissions over the past couple years with multiple health issues, with suspected aspiration pneumonia in January 2025 and April 2024. She was seen for an MBSS due to observed coughing with liquids while admitted in October 2023. This revealed oral dysphagia but WFL pharyngeal phase functioning, with no overt aspiration. During this study she was observed to demonstrate a recurrent wet cough that was not in fact correlated with aspiration. It is unclear how much esophageal dysphagia may be contributing to her clinical picture, with at least one of her past pneumonias due to vomiting. Nilam has been seen by SUPERVISOR INSPECTING while at the [facility] up until very recently and has been on thin liquids, no straws, soft/bite sized foods. She does not recall the day leading up to this admission, stating she woke up in the hospital. She has been on mildly thickened liquids over the weekend due to nursing suspicion of aspirating with thin. Nilam expresses she does not like mildly thick liquids and is requesting return to thin liquids if possible. [employer]PECT[employer] IMPRESSIONS & RECOMMENDATIONS: Nilam was seen sitting upright in bed, alert/oriented, on 2LPM nasal canula. Wet cough observed throughout session and in two instances did appear worsened immediately following sip of thin via straw, though cough was productive for white-yellow phlegm. With trials of mildy thick vs thin liquid via cup, no significant difference appreciated with tolerance when taking small single sips. Education provided to Nilam re: how a straw can increase sip size and also 'send the liquid' to the back of the throat prematurely. Nilam verbalized comprehension of recommendations to take small single sips via cup and hold the liquid in her mouth for one second prior to swallowing. We practiced this with a total of 4 ounces of liquid without overt s/s aspiration. Overall, while prior MBSS results from one year ago indicated WNL pharyngeal swallow function, her recurrent pneumonias are concerning. Plan to monitor Nilam's results on her scheduled outpatient barium swallow study on 03/06/25 and if unremarkable, will consider repeat outpatient MBSS. FURTHER SUPERVISOR [employer]PECTING SERVICES: Patient to be followed while on unit. Diet Recommendations: SOLIDS- L6 soft and bite sized LIQUIDS - Thin liquids via cup - NO STRAWS MEDICATIONS - whole in puree or one at a time with sip liquid SUPERVISION - Intermittent/Distant STRATEGIES: Small, single sips via cup. Hold in mouth for 1 second prior to swallowing Small/slow bites [place] upright 90 degrees for all PO and at least 30 minutes after SUBJECTIVE: Patient received alert/awake, agreeable to evaluation Pain Reported? None, though endorses very high fatigue Baseline Swallow Function: Patient reports aspiration precautions in place at [facility] - does not use straws, up in a chair for meals. Baseline diet appears to be soft solids and thin liquids PO Trials Assessed: IDDSI 0 Thin Liquids IDDSI 2 Mildly Thick Liquid Patient not up for solid trials this date. Has mostly just had Ensure/Shakes since admission. Oral Mechanism Examination: Patient is edentulous, dentures at bedside. Oral Phase Findings: WFL for trials assessed Pharyngeal Phase Findings: ? of delayed swallow initiation Wet cough throughout study with expectoration of phlegm ASSESSMENT: Further SUPERVISOR [employer]PECTING Services indicated. Patient to be followed on unit. Recommendation at Discharge: To be determined Suggested Referrals: N/A Recommended Procedures: N/A Education provided to patient/nursing Topics Addressed: SUPERVIS[employer]PECTING findings and aspiration precautions PLAN: Frequency: 2-3x/week for 1-2 weeks Goals: Model Builder Goals: Patient will remain free from aspiration-related illness, malnutrition, and dehydration. Short Term Goals: Patient will tolerate Soft Bite Size Diet and Thin liquids without overt s/s aspiration across 2/2 visits. [employer]PECTING CPT Code: 67624 Clinical Swallowing Evaluation TOTAL TIME: 20 Minutes [phone]
[2025-03-04 09:33] LABS: Abs Immature Grans 0.17 10^3/uL (0.0-0.06); HCT 37.2 % (36.0-46.0); HGB 11.2 g/dL (11.2-15.7); Immature Grans % 1.6 %; MCH 25.0 pg (27.0-33.0); MCHC 30.1 % (32.0-36.0); MCV 83 fL (80-95); MPV 9.2 fL (8.0-11.0); Platelet Count 234 10^3/uL (130-400); RBC 4.48 10^6/uL (3.93-5.22); RDW 16.5 % (11.7-14.6); RDW-SD 50.2 fL; WBC 10.77 10^3/uL (4.4-10.8)
[2025-03-04 09:46] LABS: ALT 16 U/L (14-59); AST 29 U/L (15-37); Albumin 2.0 g/dL (3.4-5.0); Alkaline Phosphatase 76 U/L (46-116); Anion Gap 10.4 mmol/L (3-11); BUN 23 mg/dL (7-18); Bilirubin, Total 0.5 mg/dL (0.2-1.0); CO2 26.6 mmol/L (21.0-32.0); Calcium 8.8 mg/dL (8.5-10.1); Chloride 103 mmol/L (98-107); Estimated GFR 58.75 (mL/min/1.73m2); Glucose 288 mg/dL (74-106); Potassium 3.4 mmol/L (3.5-5.1); Sodium 140 mmol/L (136-145); Total Protein 7.2 g/dL (6.4-8.2)
--- NOTE | 2025-03-04 14:35 | PGE_ITS ---
Date of Service Date of service: 03/04/25 Time of Service: 14:36 Assessment and Plan Assessment and plan (1) Acute hypoxemic respiratory failure: Start date: 02/28/25 Status: Acute Assessment and plan: Multiple hospitalizations for aspiration Mental status is improved Continue duonebs, antibiotics Oxygen need above baseline on admission, now back down to baseline range, but still dyspneic and fatigued so will defer discharge, get PT consult to help mobilize. (2) Sepsis: Start date: 02/28/25 Status: Resolved Assessment and plan: Sepsis criteria met on arrival. Vitals improved, WBC normalized. Pneumonia, possible UTI with urine growing morganella. BCx negative (3) Aspiration pneumonia: Start date: 02/28/25 Status: Acute Assessment and plan: Improving on unasyn and vancomycin H/o MRSA, but this pneumonia less c/w this. Get MRSA swab and stop vancomycin if negative. (4) Bacteriuria, asymptomatic: Status: Acute Assessment and plan: Feb 28 Urine culture with 50-100k CFU M morganii sensitive to unasyn Possible colonization, but covered with unasyn (5) Diabetes: Assessment and plan: Patient has been cleared by speech therapy for PO intake Continue correctional on ACHS schedule (6) CHF (congestive heart failure): Status: Chronic Assessment and plan: Continue home regimen including diuretics (7) Hypothyroid: Assessment and plan: Continue home regimen (8) CKD (chronic kidney disease) stage 3, GFR 30-59 ml/min: Status: Chronic Assessment and plan: Monitor renal status on antibiotics, has been stable Subjective Subjective Patient reports: tolerating a regular diet; denies nausea, vomiting or fever Interval history since last seen: Breathing is feeling a little better, but still exhausted, dyspneic when she tries to do anything. Feels weak. Not in pain now. Exam Narrative Exam Narrative: General: This is a pleasant, fatigued, obese woman in no acute distress on NC4L CV: RRR, no murmur Resp: Diminished breath sounds, bibasilar soft rales, no wheeze, normal effort at rest. Abd: obese, NTND Neuro: awake, alert to self, no focal deficits Objective Last Vital Signs Temp 36.7 C 03/04/25 11:29 Pulse 71 03/04/25 11:29 Resp 17 03/04/25 11:29 BP 116/63 03/04/25 11:29 Pulse Ox 92 03/04/25 11:29 Laboratory Results - last 24 hr 03/04/25 09:15 WBC 10.77 RBC 4.48 Hgb 11.2 Hct 37.2 MCV 83 MCH 25.0 L MCHC 30.1 L RDW 16.5 H Plt Count 234 MPV 9.2 Immature Gran % 1.6 Neutrophils % 74.2 Lymphocytes % 13.8 Monocytes % 6.5 Eosinophils % 3.4 Basophils % 0.5 Nucleated RBC % 0.0 Absolute Neutrophils 7.99 H Absolute Lymphocytes 1.49 Absolute Monocytes 0.70 Absolute Eosinophils 0.37 Absolute Basophils 0.05 Sodium 140 Potassium 3.4 L Chloride 103 Carbon Dioxide 26.6 Anion Gap 10.4 BUN 23 H Creatinine 1.0 Est GFR (CKD-EPI 2020) 58.75 Glucose 288 H Calcium 8.8 Total Bilirubin 0.5 AST 29 ALT 16 Alkaline Phosphatase 76 Total Protein 7.2 Albumin 2.0 L Time Spent with Patient Time Spent with Patient: 35-49 minutes Time was spent: preparing to see the patient(eg.review tests), obtaining and/or reviewing separately otained hiistory, ordering medications,tests, procedures, referring, communicating with other health career technical education instructor, indepentently interpreting results, counseling the patient and care coordination
--- NOTE | 2025-03-04 16:02 | PT.INIE ---
PT Notes Visit Reasons: Acute Hypoxic Respiratory Failure, Aspiration Pneu Physical Therapy Inpatient Initial Evaluation Date: 03/04/2025 Referring Doctor: Dr Pillai PT Orders: PT CONSULT: Safety Consult for D/C Precautions: oxygen continuous 2L/Min via NC, Standard , fall risk , Diet Recommendations: SOLIDS- L6 soft and bite sized LIQUIDS - Thin liquids via cup - NO STRAWS MEDICATIONS - whole in puree or one at a time with sip liquid Patient Profile/Admitting Diagnosis: Nilam is a 74 yo female presented to the ED from [facility] with increased SOB , decreased SaO2 after being lifted with a Karly lift at the facility. she was leaning backward when she vomited and became confused with some hypoxia. She was placed on oxygen and EMS brought her to the ED for evaluation. Evaluation in the ED did reveal bilateral aspiration infiltrates and patient remained hypoxic and more obtunded requiring BiPAP for hypoxemia. She was in acute hypoxic respiratory failure. She was not retaining CO2. VBG did show lactic acidosis and slight worsening of her CKD though this has been progressive recently. Patient was began on Unasyn and vancomycin was added the patient being in institutions with increased risk. She will be admitted for BiPAP respiratory support. PT and Speech swallow consults placed. 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 (Acute) Nail dystrophy (Acute) Onychomycosis (Acute) Edema (Acute) Type 2 diabetes mellitus with peripheral neuropathy (Acute) Paresthesias (Acute) Anemia in chronic illness (Acute) Transaminitis (Acute) Obesity (Chronic) Unstageable pressure ulcer of right heel (Acute) Poorly controlled type 2 diabetes mellitus with peripheral neuropathy (Chronic) Low serum iron (Acute) Lumbar back pain with radiculopathy affecting right lower extremity (Acute) Ambulatory dysfunction (Acute) Weakness (Acute) Medical History Difficult Love catheter placement Pneumonia Aspiration pneumonia Follicular disorder, unspecified COVID-19 Vitamin D deficiency, unspecified Unsteadiness on feet Muscle wasting and atrophy, not elsewhere classified, unspecified site Emphysema, unspecified Interstitial pulmonary disease, unspecified Acute pulmonary edema Nausea with vomiting, unspecified Hidradenitis suppurativa Localized edema Tinea unguium Acquired absence of other specified parts of digestive tract Dysphagia, oropharyngeal phase Muscle weakness (generalized) Need for assistance with personal care Primary focal hyperhidrosis, axilla Difficulty in walking, not elsewhere classified Personal history of transient ischemic attack (TIA), and cerebral infarction without residual deficits GERD (gastroesophageal reflux disease) Insomnia Pain HLD (hyperlipidemia) Hemiplegia and hemiparesis following cerebral infarction affecting left non-dominant side Iron deficiency Hemiplegia following cerebrovascular accident (CVA) Pneumonia Constipation Cholecystitis Hypothyroid Gram-negative bacteremia Pleural effusion, left Hyperglycemia due to type 2 diabetes mellitus Urinary tract infection Palliative care patient Physician orders for life-sustaining treatment (POLST) form indicates patient wish for [id number] status ACP (advance care planning) Stroke Diabetes Surgical History S/P cholecystectomy History of ERCP S/P tonsillectomy Social History/Home Situation: resides at [facility]. Pt reports she is a mechanical lift however she is able to perform step turn transfers with FWWat times. 2 weeks ago pt was able to ambulate with FWW 25 feet while at the hospital. Equipment Owned/DME: wheelchair , cushion, FWW Subjective: Pt stating she can't do anything. However with encouragement she is able to perform functional mobility with FWW step turn transfers. Objective: [] General Observation: Female with high BMI semireclined in bed incontinent of large amount of urine. Pt stated she knew she was wet but did not seek out assistance to be cleaned. Mental Status: Alert but tired, able to follow instructions, SHe needs cues fot motivation/encouragement to perform functional tasks. Pain: cramps B lower legs ROM: [] Right Upper Extremity: WFL Left Upper Extremity: WFL B Lower Extremity:WFL hips limited by abdominal panis, ankles to neutral with knee extension Strength: [] BUE: grossly 4/5 BLE : hips 3/5 knees 3/5, ankles 3/5 grossly Bed Mobility/Transfers: [] Supine to sit with HOB elevated 60 degrees min A Sit to stand CGA from elevated surface Stand to sit CGA Bed to chair min A with FWW Gait: unable to take forward steps able to perform 4 steps to the left for step turn transfer. Balance: [] Static Sitting: Good Dynamic Sitting:Fair + Static Standing: Fair with BUE support Dynamic Standing: Fair - with BUE support Special Tests: [] Mobility Limitations Standardized Measure [] [facility] 6 clicks Basic Mobility Inpatient Short Form: [] Raw Score: 15 CMS Score:57.70% Informed Consent/Education: Patient instructed in purpose of PT consult. Treatment: [id number]: scooting along edge of bed with SBA to the left sit to stand from chair with cues for hand placement Min A (lower surface) step turn with FWW min A for FWW mgmt and cues for breath control and reassurance Assessment: Patient presents with clinical signs and symptoms consistent with current/admitting diagnoses that have resulted to mobility limitations, gait instability, generalized weakness, and impairment of motor control as demonstrated by the following impairment level findings: 1. Decreased strength to BLE major muscle groups 2. Impaired standing balance 3. Limitation of joint range of motion in B ankles Impairments are contributing to the following functional limitations: 1. Inability to safely ambulate without assistive device 2. Increase completion time for mobility ADL performance 3. Increased fall risk Patient is assessed as a low complexity based on the following: History:74-year-old female with impairment level findings, functional limitations, and past medical history as indicated above Examination: Demonstrable impairment in strength, balance, and mobility level with underlying impairments and functional limitations as documented above Presentation: stable Decision Making:low Goals: 1. CGA supine with HOB elevated to sit 2. SBA sit to/from stand 3. step turn transfer with FWW CGA 4. amb <25 feet with FWW CGA Plan of Care/Treatment Plan: PT evaluation and 1-2 treatment session only for functional mobility training using recommended AD and for HEP instruction. DISCHARGE RECOMMENDATIONS: Return to the [facility] with skilled PT TREATMENT CODE/TIME: 64460, 15095/ [id number] Thank you for the opportunity to participate in the care of this patient. Ofelia Wilkerson, PT [facility]
--- NOTE | 2025-03-04 16:53 | PDOC.CMPRO ---
Date of service: 03/04/25 Time of Service: 16:53 Care Management Progress Note Progress Note Text Progress Note Text: Nilam was sitting up in the bed when CM met with her earlier to day. She stated that she was still feeling a bit short of breath and tired. She was pleased that the provider said she would discharge tomorrow, and not today. Discharge Potential Discharge Needs: Other (f/u with the facility provider at the [facility]) Anticipated Barriers to Discharge: None Identified Patient/Family Education Needs: Review discharge instructions, discuss Ask Me Three Transportation: RCT RCT Transportation: Wheel chair van Plan: Nilam will likely discharge back to the [facility] tomorrow. She will f/u with the facility provider and continue per her plan of care. Nilam will transport in an RCT wheelchair van as coordinated by CM. CM will continue to follow. Social Determinants of Health Screening Social Determinants of health last assessed in clinic: 03/04/25 Will the Patient Participate in the Screening?: Yes Do you worry about having a steady place to live?: no Problems where you live: no known problems In the past 12 months, have you had to go without electric, gas, oil or water in your home?: no 1. Within the past 12 months, we worried whether our food would run out before we got money to buy more.: Don't know/refused 2. Within the past 12 months, the food we bought just didn't last and we didn't have money to get more.: Don't know/refused Has lack of transportation kept you from medical appointments or from doing things needed for daily living?: no Has anyone in your life made you feel unsafe or unsupported?: no How hard is it for you to pay for the very basics like food, housing, medical care, and heating? Would you say it is:: Not hard at all Do you want help finding or keeping work or a job?: I do not need or want help If for any reason you need help with day-to-day activities such as bathing, preparing meals, shopping, managing finances, etc., do you get the help you need?: I get all the help I need How often do you feel lonely or isolated from those around you?: Sometimes Do you speak a language other than Indonesian at home?: No Does the patient want assistance with any of the above?: No Comments: patient lives at the [facility] Health Related Social Needs Health related social needs: feeling lonely/isolated (Z60.8) Health related social needs details: patient lives at a [facility] and participates with activities there.
[2025-03-04 17:40] LABS: MRSA PCR Negative (Negative)
[2025-03-04] MEDS: Atorvastatin 40 MG TAB PO (20:36)
[2025-03-04] MEDS: Levothyroxine 150 MCG TAB PO (20:37)
[2025-03-04] MEDS: VANCOMYCIN/WATER (PEG) 1.25 GM/250 ML BAG IVPB (22:21)
[2025-03-05] MEDS: guaiFENesin 200 MG/10 ML CUP PO (00:03)
[2025-03-05] MEDS: Albuterol 2.5 MG/3 ML INH SOLN VIAL UPD (00:12)
[2025-03-05 02:46] VITALS: BP 118/56; PULSE 67; RESP 20; TEMP 36.6; O2SAT 94
[2025-03-05] MEDS: Normal Saline Flush 10 ML SYR IVP (05:48)
[2025-03-05] MEDS: AMPICILLIN/SULBACTAM 3 GM in Normal Saline 100 ML IVPB (05:48)
[2025-03-05] MEDS: Pantoprazole 40 MG TABCR PO (05:50)
[2025-03-05 07:56] VITALS: BP 127/67; PULSE 67; RESP 20; TEMP 36.3; O2SAT 94
[2025-03-05 08:24] VITALS: PULSE 69; RESP 18; O2SAT 93
[2025-03-05] MEDS: Albuterol/Ipratropium 3 ML UPD VIAL UPD (08:24)
[2025-03-05] MEDS: Budesonide/Formoterol 160/4.5 6 GM 60 PUFF INH IH (08:24)
[2025-03-05 08:27] VITALS: O2SAT 93
[2025-03-05] MEDS: Insulin Aspart 300 UNITS/3 ML PEN SC (08:33)
[2025-03-05] MEDS: Magnesium Gluconate 500 MG TAB PO (08:34)
[2025-03-05] MEDS: Divalproex 250 MG TABEC 750 MG PO (08:34)
[2025-03-05] MEDS: Ferrous Gluconate 324 MG TAB PO (08:35)
[2025-03-05] MEDS: Polyethylene Glycol 3350 17 GM PACKET PO (08:35)
[2025-03-05] MEDS: Spironolactone 50 MG TAB PO (08:35)
[2025-03-05] MEDS: Psyllium PKT 1 EACH PO (08:35)
[2025-03-05] MEDS: Montelukast 10 MG TAB PO (08:35)
[2025-03-05] MEDS: Enoxaparin 40 MG/0.4 ML SYR SC (08:35)
[2025-03-05] MEDS: Benzonatate 100 MG CAP PO (08:35)
[2025-03-05] MEDS: Acetaminophen 500 MG TAB 1000 MG PO (08:35)
[2025-03-05] MEDS: Docusate Sodium 100 MG CAP PO (08:35)
[2025-03-05] MEDS: Empaglifozin 10 MG TAB PO (08:35)
[2025-03-05 08:54] VITALS: O2SAT 94
--- NOTE | 2025-03-05 09:06 | DSE_ITS ---
Date of service: 03/05/25 Time of Service: 09:06 DS: Diagnosis Discharge Diagnosis (1) Acute hypoxemic respiratory failure: Status: Acute (2) Sepsis: Status: Resolved (3) Aspiration pneumonia: Status: Acute (4) Bacteriuria, asymptomatic: Status: Acute (5) Diabetes: (6) CHF (congestive heart failure): Status: Chronic (7) Hypothyroid: (8) CKD (chronic kidney disease) stage 3, GFR 30-59 ml/min: Status: Chronic Discharge Plan Disposition Patient Disposition: Detention Facility(SNF) Condition: Improving Discharge Details Reason For Visit: Acute Hypoxic Respiratory Failure, Aspiration Pneu Admit Date/Time: 02/28/25 04:38 Admit Provider: Efraín Hammond Attending Provider: Efraín Hammond Primary Care Provider: Nadya Berumen Hospital Course Hospital Course: 74-year-old lady lives at the [facility] and has chronic debilitated with multiple medical problems including type 2 DM, interstitial lung disease, h/o CVA with left hemiparesis and h/o aspiration, HRpEF who presented with worse hypoxia and delerium after an aspiration event. She met sepsis criteria with CXR c/w aspiration pneumonia on admission and was treated with ampicillin/sulbactam and vancomycin given her personal history of MRSA. She was supported with BiPAP the first night. Her mental status improved. Her WBC was 20 on admission, as high as 30 02/28, but normalized to 10.77 by 03/04. She gradually improved and was on her baseline oxygen at 2 liters prior to discharge. Chest PT was encouraged. She follows with speech therapy and should continue a soft/bite sized diet with thin liquids and no straws. She also worked with physical therapy. She was sent home with 2 more days of amoxicillin/clavulonate. Her baseline diuretics and other medications were continued. Home Meds and New Rx's Prescriptions: New amoxicillin-pot clavulanate 875-125 mg tablet 1 tab PO BID Qty: 4 0RF Continued melatonin 3 mg tablet 3 mg PO HS PRN Cosentyx UnoReady Pen 300 mg/2 mL (150 mg/mL) pen injector 300 mg subcut .q month magnesium gluconate [Mag-G] 27 mg magnesium (500 mg) tablet 27 mg PO BID benzonatate 100 mg capsule 100 mg PO TID divalproex 250 mg tablet,delayed release (DR/EC) 750 mg PO BID ipratropium-albuterol 0.5 mg-3 mg(2.5 mg base)/3 mL solution for nebulization 3 ml inhalation Q6H PRN diclofenac sodium 1 % gel 4 g topical .Q8 PRN Rx Instructions: apply to right knee every 8 hours as needed guaifenesin 100 mg/5 mL liquid 200 mg PO Q4H PRN albuterol sulfate 90 mcg/actuation HFA aerosol inhaler 2 puff inhalation Q4H Rx Instructions: wheezing ondansetron HCl 4 mg tablet 4 mg PO Q6H PRN montelukast 10 mg tablet 10 mg PO DAILY atorvastatin 40 mg tablet 40 mg PO HS acetaminophen 500 mg Tablet 1,000 mg PO TID MDD 3000 mg Qty: 60 0RF pantoprazole 40 mg Tablet,Delayed Release (Dr/Ec) 40 mg PO DAILY@0730 Qty: 10 0RF (DME) lancets [FreeStyle Lancets] 28 gauge misc See Rx Instructions .Route Qty: 100 0RF Rx Instructions: As directed (DME) blood-glucose meter [FreeStyle Lite Meter] Kit See Rx Instructions .Route Qty: 1 0RF Rx Instructions: As directed (DME) FreeStyle Lite Strips Strip See Rx Instructions .Route Qty: 100 0RF Rx Instructions: As directed spironolactone 50 mg tablet 50 mg PO DAILY insulin lispro [Humalog KwikPen Insulin] 100 unit/mL insulin pen 4 unit subcut TID Rx Instructions: Give 4 units in addition to sliding scale. Do not give if BS is under 200. budesonide-formoterol 160-4.5 mcg/actuation HFA aerosol inhaler 2 puff INHALATION BID chlorhexidine gluconate [Hibiclens] 4 % liquid 1 applic topical DAILY Rx Instructions: as a single dose ferrous gluconate 324 mg (37.5 mg iron) tablet 324 mg PO DAILY fluticasone propionate 50 mcg/actuation [place] [employer],Suspension 1 spray NS BID Qty: 0 0RF Saline Nasal Mist 0.65 % aerosol,spray See Rx Instructions .ROUTE .COMPLEX PRNQty: 44 0RF Rx Instructions: 2 sprays NS BID prior to flonase and q 4 hr prn levothyroxine 150 mcg tablet 150 mcg PO HS polyethylene glycol 3350 [ClearLax] 17 gram/dose powder 17 g PO DAILY calcium carbonate [Calcium 500] 500 mg calcium (1,250 mg) tablet,chewable 1,000 mg PO ONCE PRN Rx Instructions: 2 tabs Q3H insulin glargine [Lantus Solostar U-100 Insulin] 100 unit/mL (3 mL) insulin pen 63 unit subcut BID Trulicity 4.5 mg/0.5 mL pen injector 4.5 mg subcut QWEEK psyllium husk [Reguloid (psyllium husk)] 0.4 gram capsule 0.4 g PO DAILY Jardiance 10 mg tablet 10 mg PO DAILY furosemide 40 mg Tablet 40 mg PO BID Rx Instructions: Take one tab @ 0800 & 1400 morphine 15 mg tablet 7.5 mg PO BID [place] Saline 0.65 % aerosol,spray 2 spray intranasal BID Patient Comments: Two sprays prior to Flonase insulin lispro [Humalog KwikPen Insulin] 100 unit/mL insulin pen 1 sliding scale dose subcut USEASDIRECTD docusate sodium [Colace] 100 mg Capsule 100 mg PO DAILY Discontinued amoxicillin-pot clavulanate 875-125 mg tablet 1 tab PO BID Qty: 8 0RF Rx Instructions: start 8/11 pm doxycycline hyclate 100 mg capsule 100 mg PO BID Qty: 8 0RF Discharge Instructions Instructions: Aspiration Pneumonia (DC) Additional Instructions: continue aspiration precautions with your diet you have 2 more days of antibiotics Activity:: Activity as Tolerated Equipment/Supplies:: No Equipment Needed Diet:: Carb Counting Discharge Orders Discharge Orders: Discharge Order (Routine); Ordered 03/05/25 Ordered By: Harvey Pillai DS: Summary Time Spent with Patient providing and/or coordinating discharge services: Greater than 30 minutes Status at Discharge Functional status at discharge: uses cane/walker Overall status at discharge: patient is progressing back to baseline Mental Status: mental status grossly normal Speech and Movement: speech and movement normal (with chronic left sided weakness) Mood: congruent mood Affect: normal affect Quality:SDOH Health Related Social Needs: Health related social needs lonely/isolated Health related social needs details [place] [facility] and participates with activities there. Health related social needs details: patient [place] [facility] [place] and participates with activities there. Exam Narrative Exam Narrative: General: This is a pleasant, fatigued, obese woman in no acute distress on NC2L CV: RRR, no murmur Resp: Diminished breath sounds, bibasilar soft rales, normal effort at rest. Abd: obese, NTND extremities: warm, 1+ bilateral edema Psych Mental Status: mental status grossly normal Speech and Movement: speech and movement normal (with chronic left sided weakness) Mood: congruent mood Affect: normal affect DS: Data Vitals/I&O Vitals and I&O: Vital Signs Temperature 36.3 C L 03/05/25 07:56 Temperature Source Temporal Artery Scan 03/05/25 07:56 Pulse 69 03/05/25 08:24 Pulse 74 03/03/25 12:01 Respiratory Rate 18 03/05/25 08:24 Respiratory Effort Short of Breath 02/28/25 08:20 Respiratory Depth Shallow 02/28/25 08:20 Respiratory Pattern Tachypnea 02/28/25 08:20 Blood Pressure 127/67 03/05/25 07:56 Blood Pressure Mean 87 03/05/25 07:56 Blood Pressure Position Sitting 02/28/25 03:51 Pulse Oximetry 93 03/05/25 08:27 Oxygen Delivery Method Nasal Cannula 03/05/25 08:27 Oxygen Flow Rate 2 03/05/25 08:27 Fraction of Inspired Oxygen (FIO2) 30 03/05/25 08:27 Pain Level 0 03/05/25 07:56 Comment BiPAP 02/28/25 03:20 Intake & Output 03/04/25 03/04/25 03/05/25 11:59 23:59 11:59 Intake Total 805 / 1255 450 / 1255 200 / 200 Balance 805 / 1255 450 / 1255 200 / 200 Weight 108 kg Intake: IV 450 / 900 450 / 900 200 / 200 Oral 355 / 355 Data Completed and Pending Labs on day of discharge: Labs from last 24 hours 03/04/25 03/04/25 16:15 09:15 WBC 10.77 RBC 4.48 Hgb 11.2 Hct 37.2 MCV 83 MCH 25.0 L MCHC 30.1 L RDW 16.5 H Plt Count 234 MPV 9.2 Immature Gran % 1.6 Neutrophils % 74.2 Lymphocytes % 13.8 Monocytes % 6.5 Eosinophils % 3.4 Basophils % 0.5 Nucleated RBC % 0.0 Absolute Neutrophils 7.99 H Absolute Lymphocytes 1.49 Absolute Monocytes 0.70 Absolute Eosinophils 0.37 Absolute Basophils 0.05 Sodium 140 Potassium 3.4 L Chloride 103 Carbon Dioxide 26.6 Anion Gap 10.4 BUN 23 H Creatinine 1.0 Est GFR (CKD-EPI 2020) 58.75 Glucose 288 H Calcium 8.8 Total Bilirubin 0.5 AST 29 ALT 16 Alkaline Phosphatase 76 Total Protein 7.2 Albumin 2.0 L MRSA (TEM-PCR) Negative PFSH All Active Problems (Updated 03/04/25 @ 09:01 by Gio Min MD) CKD (chronic kidney disease) stage 3, GFR 30-59 ml/min (Chronic) Aspiration pneumonia (Acute) Acute hypoxemic respiratory failure (Acute) Bacteriuria, asymptomatic (Acute) Mucocele of frontal sinus (Acute) Hypoplastic maxillary sinus (Acute) Hypoxia (Acute) Chronic cough (Acute) Personal history of Methicillin resistant Staphylococcus aureus infection (Acute) Dysphagia (Acute) Extended spectrum beta lactamase (ESBL) resistance (Acute) Hypo-osmolar hyponatremia (Acute) Type 2 diabetes mellitus with foot ulcer (Acute) Radiculopathy, lumbar region (Acute) Pleural effusion, not elsewhere classified (Acute) Acute on chronic combined systolic (congestive) and diastolic (congestive) heart failure (Acute) Hemiplegia of left 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 (Acute) Nail dystrophy (Acute) Onychomycosis (Acute) Edema (Acute) Type 2 diabetes mellitus with peripheral neuropathy (Acute) Paresthesias (Acute) Anemia in chronic illness (Acute) Transaminitis (Acute) Obesity (Chronic) Unstageable pressure ulcer of right heel (Acute) Poorly controlled type 2 diabetes mellitus with peripheral neuropathy (Chronic) Low serum iron (Acute) Lumbar back pain with radiculopathy affecting right lower extremity (Acute) Ambulatory dysfunction (Acute) Weakness (Acute) CHF (congestive heart failure) (Chronic) 2020, pt. denies any deficits now Medical History Difficult Love catheter placement Pneumonia Aspiration pneumonia Follicular disorder, unspecified COVID-19 Vitamin D deficiency, unspecified Unsteadiness on feet Muscle wasting and atrophy, not elsewhere classified, unspecified site Emphysema, unspecified Interstitial pulmonary disease, unspecified Acute pulmonary edema Nausea with vomiting, unspecified Hidradenitis suppurativa Localized edema Tinea unguium Acquired absence of other specified parts of digestive tract Dysphagia, oropharyngeal phase Muscle weakness (generalized) Need for assistance with personal care Primary focal hyperhidrosis, axilla Difficulty in walking, not elsewhere classified Personal history of transient ischemic attack (TIA), and cerebral infarction without residual deficits GERD (gastroesophageal reflux disease) Insomnia Pain HLD (hyperlipidemia) Hemiplegia and hemiparesis following cerebral infarction affecting left non- dominant side Iron deficiency Hemiplegia following cerebrovascular accident (CVA) Pneumonia Constipation Cholecystitis Hypothyroid Gram-negative bacteremia Pleural effusion, left Hyperglycemia due to type 2 diabetes mellitus Urinary tract infection Palliative care patient Physician orders for life-sustaining treatment (POLST) form indicates patient wish for [id number] status ACP (advance care planning) Stroke Diabetes Surgical History S/P cholecystectomy History of ERCP S/P tonsillectomy Family History Mother Cancer Social History Smoking/Tobacco Use Status: Never Smoking risk assessment performed?: Yes Alcohol Intake: never Drug use: Never Substance use type: does not use [place] [facility] What is your relationship status?: Panel score (0-1 are the most socially isolated patients): 0 Do you feel safe at home: Yes Do you feel safe in your relationship?: Yes Additional Social history: PT RESIDES AT THE [facility] Time Spent with Patient Time Spent with Patient: <45 minutes Time was spent: preparing to see the patient(eg.review tests), obtaining and/or reviewing separately otained hiistory, ordering medications,tests, procedures, referring, communicating with other health personal care home administrator, indepentently interpreting results, counseling the patient and care coordination
[2025-03-05 09:24] VITALS: O2SAT 89
--- NOTE | 2025-03-05 09:55 | PDOC.CMDIS ---
Date of service: 03/05/25 Time of Service: 09:55 LACE Index Scoring Tool Questions: Length of Stay (in days): 4 - 6 Was the patient admitted via the E.D.?: Yes Comorbidities: Cerebrovascular Disease, Diabetes w/o Complication, Congestive Heart Failure and Liver or Renal Disease E.D. Visits: 4 Answers: Total Score: 16 Risk of Readmission: High Risk Care Management Discharge Plan Reason for Hospitalization: aspiration pneumonia Discharge Plan: Nilam is discharged today back to the [facility] where she resides. She will f/u with the facility provider and continue per her plan of care. She will transport via RCT wheelchair van, as coordinated by CM. Facility and patient are aware and in agreement with discharge. Patient/Family Education Needs: Review of discharge instructions, activity, limitations, and discuss Ask me 3. SDOH Health Related Social Needs: Health related social needs lonely/isolated Health related social needs details patient lives at a [facility] and participates with activities there. Health related social needs details: patient lives at a [facility] and participates with activities there.
--- NOTE | 2025-03-05 10:03 | NUR.NOTE ---
Nursing Note: Report to JANET Carr at the [facility]. Lung sounds, O2 needs, feeding, fingersticks, last bm, and bowel meds administered.
--- NOTE | 2025-03-05 10:46 | PT.INTREAT ---
PT Notes Visit Reasons: Acute Hypoxic Respiratory Failure, Aspiration Pneu Inpatient Physical Therapy Treatment Note [facility] Date: 03/05/25 PRECAUTIONS:fall, standard SUBJECTIVE: Nilam reports she is going back to the [facility] today. She states she slept well last night and feels very good OBJECTIVE: Patient presented supine in bed with oxygen off O2 sats 92% on room air nurse present ? PAIN: denies ? BED MOBILITY/TRANSFERS?supine with head of bed at 60 degrees?sit at edge of bed: CGA with increased time to scoot to the edge Sit-stand: CGA? Stand-sit: CGA ? Bed?chair: CGA with FWW ? Facilitated safe and correct performance of level surface ambulation covering a distance of 10 feet using use front wheeled walker with contact-guard assist and wheelchair follow for safety. Did not report of any increased pain. Denied headache, chest pain, and lightheadedness throughout activity. Minimal verbal cueing provided for AD management, directional changes, and posture.? Deviation: slow gait speed, increasing CASTANO but SaO2 remaining in 90s on RA ? ASSESSMENT:? Improving activity tolerance and ability to participate in standing tasks including ambulation and step turn transfers. Patient does not report require use of Karly lift at this time. She would benefit from continued PT when she returns to the [facility] PLAN: Continue PT intervention to maximize activity tolerance and independence during acute care stay TREATMENT CODE/TIME: [id number] DISCHARGE RECOMMENDATION: Return to the [facility] with resumption of PT services
== END 2025-03-05 10:18 | disposition skilled nursing facility (03) | DRG 871 ==
LOC: ER 06:48 → ICU 08:03 → MS 03-03 15:22
PROVIDERS: Family Medicine; Admitting Provider Family Medicine; Emergency Provider Student in an Organized Health Care Education/Training Program; PCP Nurse Practitioner Gerontology; Responsible Provider Family Medicine; Visit Provider Family Medicine
DX: A41.9 Sepsis, unspecified organism (principal); J69.0 Pneumonitis due to inhalation of food and vomit; J96.01 Acute respiratory failure with hypoxia; E11.42 Type 2 diabetes mellitus with diabetic polyneuropathy; Z79.4 Long term (current) use of insulin; E03.9 Hypothyroidism, unspecified; N18.32 Chronic kidney disease, stage 3b; J84.9 Interstitial pulmonary disease, unspecified; F05 Delirium due to known physiological condition; E87.1 Hypo-osmolality and hyponatremia; I69.354 Hemiplegia and hemiparesis following cerebral infarction affecting left non-dominant side; I50.42 Chronic combined systolic (congestive) and diastolic (congestive) heart failure; R82.71 Bacteriuria; Z86.14 Personal history of Methicillin resistant Staphylococcus aureus infection; Z79.85 Long-term (current) use of injectable non-insulin antidiabetic drugs; Z79.84 Long term (current) use of oral hypoglycemic drugs; R45.89 Other symptoms and signs involving emotional state; J34.1 Cyst and mucocele of nose and nasal sinus; M54.16 Radiculopathy, lumbar region; R74.01 Elevation of levels of liver transaminase levels; E66.9 Obesity, unspecified; E11.65 Type 2 diabetes mellitus with hyperglycemia; E55.9 Vitamin D deficiency, unspecified; J43.9 Emphysema, unspecified; L73.2 Hidradenitis suppurativa; R13.12 Dysphagia, oropharyngeal phase; G47.00 Insomnia, unspecified; K21.9 Gastro-esophageal reflux disease without esophagitis; E61.1 Iron deficiency; K59.00 Constipation, unspecified; Z66 Do not resuscitate; D63.1 Anemia in chronic kidney disease; R26.2 Difficulty in walking, not elsewhere classified; Z68.39 Body mass index [BMI] 39.0-39.9, adult
CPT/HCPCS: 00123; 36415; 71250; 80053; 82805; 84145; 85027; 86850; 86900; 86901; 87040; 87077; 87637; 87641; 92610; 93005; 94640; 94761; 96365; 96367; 97161; 97530; 99291; J1650; 71045; 74176; 80202; 81003; 81015; 82140; 83605; 83735; 83880; 84443; 84484; 85025; 85610; 85730; 87086; 87186; 93010; 94660; 94664; 94668; 94760; 99223; 99231; 99232; 99238; J0295; J1815; J2270; J3373; J3490; J7613; J7620

== ENCOUNTER 2025-03-06 01:44 | Outpatient (CLI) | payer MEDICARE, MEDICAID, SELFPAY ==
--- NOTE | 2025-03-06 | DI.RAD_ITS ---
Exam(s) RF BARIUM SWALLOW EXAM: RF BARIUM SWALLOW CLINICAL HISTORY: DYSPHAGIA TECHNIQUE: 2D and realtime digital imaging was performed. CONTRAST MATERIAL: Oral barium Oral water soluble contrast was administered. COMPARISON: No exams were available for comparison FINDINGS: ESOPHAGRAM: This was a somewhat limited study as patient was confined to wheelchair. Performed with single contrast technique Preliminary image reveal significant infiltrate in the left lower lobe and also some patchy infiltrate in the right lower lobe. There is no obvious aspiration demonstrated during swallow. No evidence of Zenker's diverticulum. No fixed lesions in the esophagus. No achalasia. No hiatal hernia demonstrated. No Schatzki ring seen. No tertiary waves. No stasis. No obvious reflux. IMPRESSION: No aspiration. No obvious reflux. No hiatal hernia. No obvious abnormalities in the esophagus. Significant lung infiltrates noted, most prominent in the left lower lobe. RADIATION DOSE DELIVERED: yvonne Shin=29.6 mGy
[2025-03-06] MEDS: Barium Sulfate 60% W/V 355 ML BTL PO (10:42)
== END 2025-03-06 02:04 ==
LOC: DI 01:44
PROVIDERS: PCP Nurse Practitioner Gerontology; Visit Provider Nurse Practitioner Gerontology
DX: R13.10 Dysphagia, unspecified (principal)
CPT/HCPCS: 74221

== ENCOUNTER 2025-03-11 18:18 | Outpatient (REF) | payer MEDICARE, MEDICAID, SELFPAY ==
[2025-03-11 19:23] LABS: Abs Immature Grans 0.10 10^3/uL (0.0-0.06); HCT 36.3 % (36.0-46.0); HGB 11.2 g/dL (11.2-15.7); Immature Grans % 0.8 %; MCH 25.3 pg (27.0-33.0); MCHC 30.9 % (32.0-36.0); MCV 82 fL (80-95); MPV 9.2 fL (8.0-11.0); Platelet Count 417 10^3/uL (130-400); RBC 4.43 10^6/uL (3.93-5.22); RDW 17.1 % (11.7-14.6); RDW-SD 50.0 fL; WBC 12.96 10^3/uL (4.4-10.8)
[2025-03-11 19:40] LABS: ALT 43 U/L (14-59); AST 22 U/L (15-37); Albumin 2.5 g/dL (3.4-5.0); Alkaline Phosphatase 60 U/L (46-116); Anion Gap 6.8 mmol/L (3-11); BUN 10 mg/dL (7-18); Bilirubin, Total 0.2 mg/dL (0.2-1.0); CO2 32.2 mmol/L (21.0-32.0); Calcium 8.9 mg/dL (8.5-10.1); Chloride 98 mmol/L (98-107); Estimated GFR 58.75 (mL/min/1.73m2); Glucose 174 mg/dL (74-106); Magnesium 1.8 mg/dL (1.8-2.4); Potassium 4.0 mmol/L (3.5-5.1); Sodium 137 mmol/L (136-145); Total Protein 7.4 g/dL (6.4-8.2)
== END 2025-03-11 18:19 | disposition home or self-care (01) ==
LOC: LBN 18:18
PROVIDERS: PCP Nurse Practitioner Gerontology; Visit Provider Nurse Practitioner Gerontology
DX: D63.1 Anemia in chronic kidney disease (principal); E87.8 Other disorders of electrolyte and fluid balance, not elsewhere classified; E83.42 Hypomagnesemia
CPT/HCPCS: 80053; 83735; 85025

== ENCOUNTER 2025-03-13 19:52 | Outpatient (REF) | payer SELFPAY ==
[2025-03-13 19:31] LABS: Abs Immature Grans 0.06 10^3/uL (0.0-0.06); HCT 35.3 % (36.0-46.0); HGB 10.7 g/dL (11.2-15.7); Immature Grans % 0.6 %; MCH 24.3 pg (27.0-33.0); MCHC 30.3 % (32.0-36.0); MCV 80 fL (80-95); MPV 9.2 fL (8.0-11.0); Platelet Count 409 10^3/uL (130-400); RBC 4.40 10^6/uL (3.93-5.22); RDW 17.6 % (11.7-14.6); RDW-SD 50.7 fL; WBC 10.63 10^3/uL (4.4-10.8)
[2025-03-13 19:42] LABS: ALT 31 U/L (14-59); AST 15 U/L (15-37); Albumin 2.5 g/dL (3.4-5.0); Alkaline Phosphatase 61 U/L (46-116); Anion Gap 5.8 mmol/L (3-11); BUN 10 mg/dL (7-18); Bilirubin, Total 0.3 mg/dL (0.2-1.0); CO2 35.2 mmol/L (21.0-32.0); Calcium 8.8 mg/dL (8.5-10.1); Chloride 96 mmol/L (98-107); Estimated GFR 47.21 (mL/min/1.73m2); Glucose 100 mg/dL (74-106); NT-proBNP 210 pg/mL (<300); Potassium 3.9 mmol/L (3.5-5.1); Sodium 137 mmol/L (136-145); Total Protein 7.4 g/dL (6.4-8.2)
[2025-03-14 21:59] LABS: TSH (W/Ref FT4) 0.99 uIU/mL (0.36-3.74)
== END 2025-03-13 19:53 | disposition home or self-care (01) ==
LOC: LBN 19:52
PROVIDERS: PCP Nurse Practitioner Gerontology; Visit Provider Nurse Practitioner Gerontology
DX: I50.22 Chronic systolic (congestive) heart failure (principal); D63.1 Anemia in chronic kidney disease; E03.9 Hypothyroidism, unspecified
CPT/HCPCS: 80053; 83880; 84443; 85025

== ENCOUNTER 2025-03-27 15:32 | Outpatient (REF) | payer SELFPAY ==
[2025-03-27 16:24] LABS: Abs Immature Grans 0.06 10^3/uL (0.0-0.06); HCT 40.5 % (36.0-46.0); HGB 12.5 g/dL (11.2-15.7); Immature Grans % 0.5 %; MCH 24.8 pg (27.0-33.0); MCHC 30.9 % (32.0-36.0); MCV 80 fL (80-95); MPV 9.4 fL (8.0-11.0); Platelet Count 253 10^3/uL (130-400); RBC 5.04 10^6/uL (3.93-5.22); RDW 17.6 % (11.7-14.6); RDW-SD 51.3 fL; WBC 11.36 10^3/uL (4.4-10.8)
[2025-03-27 16:26] LABS: ESR 77 mm/hr (0-30)
[2025-03-27 16:49] LABS: ALT 19 U/L (14-59); AST 13 U/L (15-37); Albumin 3.0 g/dL (3.4-5.0); Alkaline Phosphatase 60 U/L (46-116); Anion Gap 9.2 mmol/L (3-11); BUN 17 mg/dL (7-18); Bilirubin, Total 0.3 mg/dL (0.2-1.0); C-Reactive Protein 1.10 mg/dL (<or=0.5); CO2 30.8 mmol/L (21.0-32.0); Calcium 8.7 mg/dL (8.5-10.1); Chloride 96 mmol/L (98-107); Estimated GFR 47.21 (mL/min/1.73m2); Glucose 152 mg/dL (74-106); Magnesium 2.2 mg/dL (1.8-2.4); NT-proBNP 181 pg/mL (<300); Potassium 4.1 mmol/L (3.5-5.1); Sodium 136 mmol/L (136-145); Total Protein 8.4 g/dL (6.4-8.2)
== END 2025-03-27 15:33 | disposition home or self-care (01) ==
LOC: LBN 15:32
PROVIDERS: PCP Nurse Practitioner Gerontology; Visit Provider Nurse Practitioner Gerontology
DX: E87.8 Other disorders of electrolyte and fluid balance, not elsewhere classified (principal)
CPT/HCPCS: 80053; 85652; 83735; 83880; 85025; 86140

== ENCOUNTER → 2025-03-28 14:08 | Outpatient (BNVA) | payer MEDICARE, MEDICAID, SELFPAY | PROVIDERS: PCP Nurse Practitioner Gerontology; Referring Provider Nurse Practitioner Gerontology; Visit Provider Physician Assistant Surgical | DX: R05.3 Chronic cough (principal); R13.10 Dysphagia, unspecified; R51.9 Headache, unspecified | CPT/HCPCS: 99214 ==

== ENCOUNTER → 2025-04-04 05:34 | Outpatient (CLI) | payer MEDICARE, MEDICAID, SELFPAY ==
--- NOTE | 2025-04-04 13:44 | DI.RAD_ITS ---
Exam(s) XR KNEE RT 3V AP,LAT,JESSE EXAM: XR KNEE RT 3V AP,LAT,JESSE CLINICAL HISTORY: Rt knee pain, limit ROM. TECHNIQUE: 2D digital imaging was performed. Three views. COMPARISON: No exams were available for comparison FINDINGS: BONES: No acute fracture is present. No bony destructive lesion is seen. JOINTS: Severe narrowing of the medial femoral tibial joint space with a [id number] appearance. Also joint space narrowing of the patellofemoral joint which is not optimally profiled. Periarticular spurring is noted throughout. No joint effusion is seen. SOFT TISSUE: Vascular calcifications. IMPRESSION: Severe degenerative changes. No acute abnormality. DATA REPOSITORY: RADIATION DOSE DELIVERED:
== END ==
LOC: DI 05:34
PROVIDERS: PCP Nurse Practitioner Gerontology; Visit Provider Nurse Practitioner Gerontology
DX: M17.11 Unilateral primary osteoarthritis, right knee (principal); R42 Dizziness and giddiness; I49.9 Cardiac arrhythmia, unspecified
CPT/HCPCS: 73562; 93270

== ENCOUNTER 2025-04-04 13:51 | Outpatient (CLI) | payer MEDICARE, MEDICAID, SELFPAY | END 2025-04-04 13:52 | disposition home or self-care (01) | PROVIDERS: PCP Nurse Practitioner Gerontology; Visit Provider Nurse Practitioner Gerontology | CPT/HCPCS: 93270 ==

== ENCOUNTER 2025-05-07 07:29 | Outpatient (CLI) | payer MEDICARE, MEDICAID, SELFPAY ==
--- NOTE | 2025-05-07 12:28 | W.CARDEVENT ---
Date of service: 05/07/25 Time of Service: 12:28 Cardiac Event Recorder Referring Provider:: Nadya Berumen Indications:: Syncope Cardiac Event Note: This is a cardiac event monitor. Patient was monitored for 30 days Rhythm throughout was sinus. Average heart rate was 81. There was no significant bradycardia. Fastest heart rate was 107 There were no significant atrial or ventricular dysrhythmias. There was no atrial fibrillation, no high-grade AV block, no pauses greater than 3 seconds There were no apparent symptoms
== END 2025-05-07 07:30 | disposition home or self-care (01) ==
LOC: CARDOPNVT 07:29
PROVIDERS: PCP Legal Medicine; Visit Provider Internal Medicine Cardiovascular Disease
DX: R42 Dizziness and giddiness (principal); I49.9 Cardiac arrhythmia, unspecified
CPT/HCPCS: 93272

== ENCOUNTER → 2025-05-07 10:53 | Outpatient (CLI) | payer MEDICARE, MEDICAID, SELFPAY ==
--- NOTE | 2025-05-07 10:33 | DI.CT_ITS ---
Exam(s) CT CHEST WO EXAM: CT CHEST WO CLINICAL HISTORY: fu pneumonia, chronic cough, aspiration pneumonitis, dysphagia TECHNIQUE: Imaging Protocol: Axial computed tomography images with coronal and sagittal reformatted images were created and reviewed. Computer aided detection (CAD) was utilized. CONTRAST MATERIAL: Intravenous: Omnipaque 350 Contrast volume:structured data ml. COMPARISON: CT CT CHEST/ABD/PEL W from 10/15/[address] CHEST/ABD/PEL WO from 02/28/2025 CR,RF RF BARIUM SWALLOW from 03/06/2025 FINDINGS: Pulmonary parenchyma: Significant interval clearing previously noted bilateral lower lobe infiltrates. There are mild persistent ground-glass opacities. No dominant measurable mass. Tracheobronchial tree: No bronchiectasis or mucous plugging. Mediastinum and Karina: No dominant adenopathy or fluid collection. Pleura: No effusion. No pneumothorax. Heart: The heart is mildly dilated. Moderate coronary artery calcifications are seen. Aorta: Thoracic aorta non-dilated. Mild atherosclerotic changes. Pulmonary arteries: No gross evidence of emboli. Upper abdomen: No acute findings. Bones: Degenerative changes in the spine. Soft tissues: Unremarkable. IMPRESSION: Significant interval clearing of previously noted bilateral lower lobe infiltrates with mild residual ground-glass opacities. No acute abnormality. RADIATION DOSE DELIVERED: 470.12mGy.cm Total DLP DATA REPOSITORY: All CT scans at this facility are submitted to the National Radiology Data Registry (NRDR) Dose Index Registry (DIR) with the [employer] (ACR). RADIATION OPTIMIZATION: All CT scans at this facility use at least one of these dose optimization techniques: automated exposure control; mA and/or kV adjustment per patient size (includes targeted exams where dose is matched to clinical indication); or iterative reconstruction.
== END ==
LOC: DI 10:54
PROVIDERS: PCP Legal Medicine; Visit Provider Physician Assistant Surgical
DX: R05.3 Chronic cough (principal); J69.0 Pneumonitis due to inhalation of food and vomit; R13.10 Dysphagia, unspecified
CPT/HCPCS: 71250; 93272

== ENCOUNTER 2025-05-28 08:07 | Outpatient (CLI) | payer MEDICARE, MEDICAID, SELFPAY ==
--- NOTE | 2025-05-28 11:30 | RT.EKG_ITS ---
APPROVED REPORT Exam: Resting ECG Reason for Exam: syncope LBBB Patient Location: O HR:78 bpm ECG Measurements Heart Rate 78 AXIS NE 183 P 9 QRSd 143 QRS -63 QT 411 T -3 QTc 469 Conclusion Sinus rhythm...normal P axis, V-rate 50- 99 Left bundle branch block...QRSd>120, broad/notched R Baseline wander in lead(s) III left axis
== END 2025-05-28 08:08 | disposition home or self-care (01) ==
PROVIDERS: PCP Legal Medicine; Visit Provider Internal Medicine Cardiovascular Disease
DX: R55 Syncope and collapse (principal); I44.7 Left bundle-branch block, unspecified
CPT/HCPCS: 93010

== ENCOUNTER → 2025-05-28 11:43 | Outpatient (BNVA) | payer MEDICARE, MEDICAID, SELFPAY | PROVIDERS: PCP Legal Medicine; Referring Provider Legal Medicine; Visit Provider Internal Medicine Cardiovascular Disease | DX: R55 Syncope and collapse (principal); I44.7 Left bundle-branch block, unspecified; R06.89 Other abnormalities of breathing | CPT/HCPCS: 99214 ==

== ENCOUNTER → 2025-06-06 00:19 | Outpatient (CLI) | payer MEDICARE, MEDICAID, SELFPAY ==
--- NOTE | 2025-06-06 08:15 | DI.RAD_ITS ---
Exam(s) RF MODIFIED SPEECH BA SWALLOW TECHNIQUE: Modified barium swallow was performed in conjunction with speech pathology. CONTRAST MATERIAL: Oral barium Oral water soluble contrast was administered. COMPARISON: No exams were available for comparison FINDINGS: Note that this is not a dedicated esophagram, distal esophagus not evaluated. There is no evidence of aspiration or penetration of thick liquids, barium coated cookie or barium pudding. Speech pathology report to follow. There was penetration noted with thin barium. IMPRESSION: Penetration noted with thin barium. RADIATION DOSE DELIVERED: yvonne Shin=6.13 mGy
--- NOTE | 2025-06-06 09:35 | ST.MBS_ITS ---
Date of Service Date of service: 06/06/25 Time of Service: 10:00 Modified Barium Swallow Study Findings: Video fluoroscopic Swallowing Evaluation (VFSE) / Modified Barium Swallow Study (MBSS) Speech Language Pathology Report Patient referred for VFSE/MBSS from Dr. Magaña given recurrent pneumonia with high suspicion for aspiration. HPI & Patient report of function: Patient is a 74 year old female with history CVA in 2018 presenting with recurrent hospitalizations for suspected aspiration pneumonia with most recent admissions in February 2025, January 2025, and April 2024. She was seen for an MBSS in October 2023. During this study she was observed to demonstrate a recurrent wet cough that was not infact correlated with aspiration. A regular barium swallow was also completed at last admission in February but unremarkable. Nilam lives at [facility] and is currently on a regular diet with thin liquids, no straws. Previous Imaging: Prior MBSS 11/17/2023: MBSS findings reveal mild-moderate oral phase dysphagia and WFL pharyngeal phase dysphagia. Aside from transient/flash penetration on initial sip- there is no penetration or aspiration or pharyngeal retention appreciated during the study. Of notice, patient did generate a wet cough intermittently throughout the study though did not appear correlated to PO. See below for further breakdown of physiologic performance. Overall, deconditioned status and oral phase impairments do increase risk for aspiration and impact efficiency, though these risks can be mitigated with standard swallowing precautions and diet modification as listed below. No further ST needs identified. Regular barium swallow 02/2025: No aspiration. No obvious reflux. No hiatal hernia. No obvious abnormalities in the esophagus.Significant lung infiltrates noted, most prominent in the left lower lobe. IMPRESSIONS: Nilam presents with mild-moderate pharyngeal dysphagia, with primary findings of delayed swallow initiation as well as mildly decreased hyolaryngeal excursion/elevation. Collectively this results in intermittent penetration of trace quantity to the level of the vocal cords with thin liquids. While this is only a trace quantity of bolus, it does reach the vocal cords and it is difficult to assess if ejected vs aspirated below the folds. Cough reflex is present but not immediate/consistent. Chin tuck did not improve symptoms and possibly increased quantity of penetration. Very small sip with 3 second preparatory hold did eliminate penetration/aspiration. Mildly thick liquids also eliminated penetration/aspiration. All solids tolerated well without evidence of pharyngeal retention. Recommend follow up visit to more extensively review findings and discuss recommendations with Nilam. Although aspiration quantity and severity are mild, in the setting of her recurrent hospitalizations for pneumonia (and recent rule out of esophageal origins) I would recommend trial of mildly thick liquids to reduce aspiration risk. See full recommendations below. Swallow safety: Patient appears to be at moderate risk for potential aspiration PNA and/or pulmonary compromise. Swallow efficiency: Patient appears to be at low risk for malnutrition, low risk for dehydration. Specialist referrals:? N/A RECOMMENDATIONS: Diet Texture Recommendation:? IDDSI LEVEL SOLIDS 6-Soft & Bite-Sized Solids LIQUIDS 2-Mildly Thick Liquids Please see further details at?[email or web address] MEDICATIONS Whole in applesauce or with mildly thick liquid Diet texture modification is per patient's preference; please adjust diet textures at patient's discretion & collaboration with care team. Do not alter medications (e.g., cut)? without advice from your MD or pharmacist. Risk Management Strategies:? Behavioral reflux precautions, including upright position during + 90 mins after meals. Small bites, approx [id number] Small sips, approx 10 mL - hold in mouth for 3 seconds pre-swallowing Avoid straws Control risk factors for aspiration pneumonia via (a) thorough oral hygiene & (b) maintaining physical mobility as tolerated Swallow prognosis is good-fair given: Positive prognostic factors: Age, Severity, Motivation, Caregiver/facility support Patient appears to be a fair candidate for behavioral swallow rehabilitation. PLAN: Therapy: Recommend subsequent outpatient session with [facility] to review results of today's exam and develop treatment plan as appropriate. May consider the following: Further Compensatory Strategy Training Further Training/Education in Risk Management Further Counseling re: Options for maintaining quality of life in context of dysphagia presentation Goals: Alf Goals Patient will optimize swallow safety/efficiency and remain free from aspiration- related illness. Short Term Goals Patient/caregiver will verbalize comprehension re: dysphagia findings and strategies to optimize swallow safety. OBJECTIVE Videofluoroscopic Swallow Evaluation (VFSE/MBSS) was conducted in the lateral projection by Speech-Language Pathologist, in collaboration with Radiologist, to evaluate oropharyngeal swallow function. Oral-Motor/Peripheral Screening: WFL/Unremarkable dentition, oral mucosa, and CN/airway function Anatomic view under fluoroscopy: WFL PO Barium Contrast Trials Oral barium water-soluble contrast was administered as follows: IDDSI Level 0 Varibar thin liquid (40% w/v) IDDSI Level 2 Varibar nectar thick/mildly thick liquid (40% w/v) IDDSI Level 4 Varibar pudding/pureed/extremely thick (40% w/v) IDDSI Level 7 Regular Solid: 1/2 guicho cracker coated in 3 mL Varibar pudding MBSImP Component Scores: COMPONENT Scale SCORE 1 Lip Closure (0-4) 0 No labial escape 2 Tongue Control During Hold (0-3) 0 Cohesive bolus between tongue to palatal seal 3 Bolus Preparation (0-3) 1 Slow prolonged chewing/mashing with complete re- collection 4 Bolus Transport (0-4) 2 Slowed tongue motion 5 Oral Residue (0-4) 0 Complete oral clearance 6 Swallow Initiation (0-4) 3 Bolus head in pyriforms 7 Soft Palate Elevation (0-4) 0 No bolus between soft palate (SP)/pharyngeal wall (PW) 8 Laryngeal Elevation (0-3) 1 Partial superior movement of thyroid cartilage/partial approximation of arytenoids to epiglottic petiole 9 Anterior Hyoid Excursion (0-2) 1 Partial anterior movement 10 Epiglottic Movement (0-2) 0 Complete inversion 11 Laryngeal Vestibular Closure (0-2) 1 Trace quantity penetration ot the leve l of the vocal cords w/ thin 12 Pharyngeal Stripping Wave (0-2) 0 Present - complete 13 Pharyngeal Contraction (0-3) N/A Lateral view only 14 PES Opening (0-3) 0 Complete distension and complete duration; no obstructi on of flow 15 Tongue Base Retraction (0-4) 0 No contrast between TB and posterior pharyngeal wall (PW) 16 Pharyngeal Residue (0-4) 0 Complete pharyngeal clearance 17 Esophageal Clearance (0-4) NA Did not assess in AP view secondary to mobili ty limitations (seated for study) Results: COMPONENT Scale SCORE 1 Oral Score (0-22) 6 2 Pharyngeal Score (0-29) 3 3 Esophageal Score (0-4) 0 Penetration-Aspiration Scale: COMPONENT Scale SCORE 1 Thin liquid (1-8) 5-6 Contrast entered airway/contacted vocal folds, and was not ejected from airway vs contrast entered the airway, passed below the vocal folds 2 Hanna thick (1-8) 1 Contrast did not enter the airway 3 Honey thick (1-8) NA 4 Pudding thick (1-8) 1 Contrast did not enter the airway 5 Ya (1-8) 1 Contrast did not enter the airway EAT-10: COMPONENT Scale SCORE 1 My swallowing problem has caused me to lose weight (0-4) NA 2 My swallowing problem interferes with my ability to go out for meals (0-4) N A 3 Swallowing liquids takes extra effort (0-4) NA 4 Swallowing solids takes extra effort (0-4) NA 5 Swallowing pills takes extra effort (0-4) NA 6 Swallowing is painful (0-4) NA 7 The pleasure of eating is affected by my swallowing (0-4) NA 8 When I swallow food sticks in my throat (0-4) NA 9 I cough when I eat (0-4) NA 10 Swallowing is stressful (0-4) NA 11 Total (0-40) 0 A score of 3 or more indicates a problem Royal Pharyngeal Residue Severity Rating Scale (YPRS) (Trever et al, 2015) Vallecula Residue Severity I None 0% No residue Pyriform Sinus Residue Severity I None 0% No residue Trialed Compensatory Strategies & Outcome: Maneuvers Successful (+) Unsuccessful (-) Postures Successful (+) Unsuccessful (-) 3 second Preparatory Set? ?+ avoided asp iration Chin Tuck Posture? ?-- did not improve/possibly worsened penetration vs aspiration Cough? ? Posterior Head tilt? Reflexive? Cued? Throat Clear? ? Head Tilt to? Reflexive? Left? Cued? Right? ? Saliva swallow? ? Head Turn/Rotate to? ? Supraglottic Swallow? Left? ? Super-supraglottic Swallow? Right? ? Thank you for allowing us to take part in this patient's care. Please feel free to contact the [facility] Speech Language Pathology Department with any questions/concerns.
[2025-06-06] MEDS: Barium Sulfate 40% W/V 240 ML BTL PO (10:38)
[2025-06-06] MEDS: Barium Sulfate Oral Paste 40% W/V 230 ML TUBE PO (10:41)
[2025-06-06] MEDS: Barium Sulfate 81% w/w for Oral Suspension 148 GM BTL PO (10:44)
== END ==
LOC: DI 00:19
PROVIDERS: PCP Legal Medicine; Visit Provider Physician Assistant Surgical
DX: J69.0 Pneumonitis due to inhalation of food and vomit (principal); R13.13 Dysphagia, pharyngeal phase
CPT/HCPCS: 92526; 92611; 74221

== ENCOUNTER 2025-06-10 14:05 | Outpatient (REF) | payer MEDICARE, MEDICAID, SELFPAY ==
[2025-06-10 14:21] LABS: Abs Immature Grans 0.11 10^3/uL (0.0-0.06); HCT 39.7 % (36.0-46.0); HGB 12.4 g/dL (11.2-15.7); Immature Grans % 0.9 %; MCH 25.8 pg (27.0-33.0); MCHC 31.2 % (32.0-36.0); MCV 83 fL (80-95); MPV 9.6 fL (8.0-11.0); Platelet Count 270 10^3/uL (130-400); RBC 4.81 10^6/uL (3.93-5.22); RDW 15.9 % (11.7-14.6); RDW-SD 48.0 fL; WBC 11.68 10^3/uL (4.4-10.8)
[2025-06-10 14:39] LABS: Hemoglobin A1C 8.5 % (<5.7)
[2025-06-10 14:41] LABS: Magnesium 2.0 mg/dL (1.6-2.6); TSH (W/Ref FT4) 1.81 uIU/mL (0.55-4.78)
[2025-06-10 14:49] LABS: ALT 17 U/L (10-49); AST 13 U/L (<34); Albumin 3.8 g/dL (3.2-5.0); Alkaline Phosphatase 60 U/L (46-116); Anion Gap 10.8 mmol/L (3-11); BUN 30 mg/dL (9-23); Bilirubin, Total 0.3 mg/dL (0.2-1.2); CO2 29.2 mmol/L (20.0-31.0); Calcium 9.4 mg/dL (8.3-10.6); Chloride 96 mmol/L (98-107); Glucose 208 mg/dL (74-106); Potassium 4.0 mmol/L (3.5-5.1); Sodium 136 mmol/L (136-145); Total Protein 7.5 g/dL (5.7-8.2)
== END 2025-06-10 14:06 | disposition home or self-care (01) ==
LOC: LBN 14:05
PROVIDERS: PCP Legal Medicine; Visit Provider Nurse Practitioner Gerontology
DX: E03.9 Hypothyroidism, unspecified (principal); D63.1 Anemia in chronic kidney disease; E87.8 Other disorders of electrolyte and fluid balance, not elsewhere classified; E83.42 Hypomagnesemia; E11.9 Type 2 diabetes mellitus without complications
CPT/HCPCS: 80053; 83036; 83735; 84443; 85025